=== PATIENT | male | born 1990 | race Caucasian/White ===

== ENCOUNTER 2022-12-29 07:31 | Outpatient (OUT) | payer MEDICAID, SELFPAY ==
[2022-12-29 13:42] LABS: Alanine Aminotransferase 24 U/L (16-63); Albumin Globulin Ratio 0.8; Albumin Level 3.8 g/dL (3.4-5.0); Alkaline Phosphatase 91 U/L (46-116); Anion Gap 6.2; Aspartate Amino Transferase 15 U/L (15-37); BUN Creatinine Ratio 14.8; Bilirubin Total 0.4 mg/dL (0.2-1.0); Calcium 9.3 mg/dL (8.5-10.1); Carbon Dioxide 36.8 mmol/L (21.0-32.0); Chloride 105 mmol/L (98-107); Estimated GFR (African America >60 (>=60); Estimated GFR (Non-African Ame 59 (>=60); Glucose 89 mg/dL (74-106); Sodium 144 mmol/L (136-145); Total Protein 8.8 g/dL (6.4-8.2); Valproic Acid 68.5 ug/mL (50.0-100.0)
[2022-12-30 05:08] LABS: Lithium (Eskalith(R)), Serum 0.5 mmol/L (0.5-1.2)
[2022-12-30 11:08] LABS: Carbamazepine(Tegretol),S 8.7 ug/mL (4.0-12.0)
== END 2022-12-29 07:32 | disposition home or self-care (01) ==
LOC: LAB 07:35
PROVIDERS: PCP Family Medicine; Visit Provider Family Medicine
DX: Z79.899 Other long term (current) drug therapy (principal)
CPT/HCPCS: 36415; 80053; 80156; 80164; 80178; 82607; 82746; 83540

== ENCOUNTER 2023-04-08 14:13 | Inpatient (IN) | payer MEDICAID, SELFPAY ==
[2023-04-08] VITALS (33 sets, daily range): BP systolic 81–135; BP diastolic 40–83; PULSE 84–107; RESP 9–32; TEMP 37.5–37.9; O2SAT 83–98; BMI 77.5; BMI 35.8
--- OUTSIDE RECORDS SUMMARY | 2023-04-08 14:21 | XMS_ITS | CCD ---
Author Name Unknown Address [address] [place] [address] Organization [facility] Care Team Providers Care Grease Remover Name Role Phone Unavailable Unavailable Unavailable JOSE, JOAQUIN Unavailable Unavailable JOSE, JOAQUIN Unavailable Unavailable JOSE, JOAQUIN Unavailable Unavailable Kemp, Iftikhar A Primary Care Provider Unavaila ble Kemp, Iftikhar A Primary Care Provider Iftikhar Kemp DO Primary Care Provider [phone] FRANCK CARBALLO Attending Unavailab le KEMPIFTIKHAR Primary Care Unavailable KEMPIFTIKHAR A Primary Care Unavailable DEENAZULAY Attending U navailable KEMPIFTIKHAR Attending Unavailable KEMPIFTIKHAR Referring Unavailable KEMP, IFTIKHAR A Primary Care Unavailable DEENAZULAY Referring U navailable KEMPIFTIKHAR Primary Care Unavailable LORENZO STEIN Admitting Unavailab DOMO Silva Attending Unavailable LETTY DAVENPORT Consulting Unavail able FRANCK CARBALLO Admitting Unavailab FRANCK Kauffman Attending Unavailab le IFTIKHAR KEMP Primary Care Unavailable Unavailable Primary Care Provider Unavailjermaine e Thiago Chandler Unavailable DO Iftikhar Kemp Primary Care Provider [phone] MD Thiago Chandler Attending Provider [phone] Unavailable Primary Care Provider Unavailabl e PROVIDER, UNKNOWN Admitting Unavailable PROVIDER, UNKNOWN Attending Unavailable PROVIDER, UNKNOWN Admitting Unavailable PROVIDER, UNKNOWN Attending Unavailable DO Iftikhar Kemp A Primary Care Provider Yi, Martha Unavailable DO Iftikhar Kemp Primary Care Provider [phone] MD Thiago Chandler Attending Provider DO Iftikhar Kemp Primary Care Provider [phone] MD Thiago Chandler Attending Provider [phone] DAVID, DR IFTIKHAR Otto Admitting Unavailable KEMP, DR IFTIKHAR Otto Attending Unavailable KEMP, DR IFTIKHAR Otto Primary Care Unavailable KEMP, DR IFTIKHAR Otto Consulting Unavailable MISC, DR QUINN Admitting Unavailable MISC, DR QUINN Attending Unavailable KEMP, DR IFTIKHAR Otto Primary Care Unavailable MISC, DR QUINN Consulting Unavailable KEMP, DR IFTIKHAR Otto Admitting Unavailable KEMP, DR IFTIKHAR Otto Attending Unavailable KEMP, DR IFTIKHAR Otto Primary Care Unavailable KEMP, DR IFTIKHAR Otto Consulting Unavailable ZIEBER, DR ZULAY Cohen Consulting Unavailable DO Iftikhar Kemp Primary Care Provider MD Thiago Chandler Attending Provider [phone] Thiago Chandler Admitting Unavailable Thiago Chandler Attending Unavailable Iftikhar Kemp Primary Care Unavailable Thiago Chandler Admitting Unavailable Thiago Chandler Attending Unavailable Iftikhar Kemp Primary Care Unavailable Allergies Allergy Classification Reported Allergen(s) Allergy Type Date of Onset Reaction(s) Facility NSAIDs (1 source) Naproxen Drug Allergy 8 [facility] (17 sources) Naproxen; Translations: [NAPROXEN] Drug Allergy 8 [facility] Work Phone: (4 sources) Seasonal allergy Propensity to adverse reactions Unknown [facility] Other (1 source) Naproxen Drug Allergy [facility] (1 source) Naproxen Drug Allergy 0 [facility] Repository Medications Current Medications Medication Drug Class(es) Dates Sig (Normalized) Sig (Original) albuterol 0.83 mg/ml inhalation solution (14 sources) beta2-Adrenergic Agonist Start: 12-31-2018 take 1 dose by inhalation every six hours Albuterol Sulfate Active 1 VIAL INHALATION Q6H December 31, 2018 1:00am Albuterol Sulfat e (2.5 MG/3ML) 0.083% 1 unit dose Inhalation four times a day DX J44.9 COPD use as needed Active take 2.5 mg by inhal ation every six hours as needed for wheezing albuterol (PROVENTIL) 2.5 mg /3 mL (0.08 3 %) nebulizer solution Take 2.5 mg by nebulization every 6 (six) hours as needed for wheezing . 0 Active amoxicillin 875 mg / clavulanate 125 mg oral tablet (7 sources) Penicillin-class Antibacterial Start: 02-26-2019 End: 03-05-2019 take 1 tablet by mouth every twelve hours amoxicillin-clavulanate (AUGMENTIN) 875-125 mg per tablet Take 1 (one) tablet by mouth every 12 (twelve) hours for 4 days . 8 tablet 0 03/01/2019 03/05/2019 Active Start: 02-22-2019 take 1 tablet by moira th twice daily Amoxicillin-Pot Clavulanate (Augmentin) 875-125 mg tablet Active 1 TAB PO Twice daily February 22, 2019 1:00am Antacid 500 MG (4 sources) take 1 tablet by moira th once daily Antacid 500 MG 1 tablet Orally Once a day Active B Complex - (4 sources) B Complex - as d irected Orally 1 daily Active B Complex Vitamins (B COMPLEX 100 PO) (1 source) B Complex Vitami ns (B COMPLEX 100 PO) Take by mouth. Active b complex vitamins capsule (5 sources) take 1 capsule by mo uth once daily b complex vitamins capsule Take 1 capsule by mouth daily . 0 Active take 1 capsule by mouth once frank ly b complex vitamins capsule Take 1 capsule by mouth daily . 0 Suspended bacitracin 0.5 unt/mg ophthalmic ointment (5 sources) Start: 12-31-2018 take 1 dose into the eye(s) three times daily Bacitracin Active 1 DOSE OPHTHALMIC Three times daily December 31, 2018 1:00am Topical benzonatate 100 mg oral capsule (11 sources) Non-narcotic Antitussive Start: 01-08-2018 take 100 mg by mouth three times daily Benzonatate Active 100 MG PO Three times daily December 31, 2018 1:00am benzoyl peroxide 50 mg/ml medicated liquid soap (15 sources) Start: 12-31-2018 apply 1 dose topically once daily Benzoyl Peroxide Active 1 DOSE TOPICAL DAILY@1999December 31, 2018 1:00am WASH FACE, CHEST, AND BACK DAILY @1999 Benzoyl Peroxide 5 % as directed Externally Once a day Active benzoyl peroxide 5 % gel Apply topically daily . 0 Active Benzoyl Peroxide (PANOXYL) 10 % Bar Apply topically. Active budesonide 0.25 mg/ml inhalant solution (1 source) Corticosteroid Start: 01-06-2018 budesonide (PULMICORT) nebulizer suspension 0.5 mg calcium carbonate 1000 mg / magnesium hydroxide 200 mg chewable tablet (5 sources) Start: 12-31-2018 Calcium Carbonate-Mag Hydroxid (Antacid (Calcium Carb-Mag Hyd)) 1,000-200 mg Tablet,Chewable Active 2 TAB PO Q4H December 31, 2018 1:00am clindamycin 10 mg/ml medicated pad (10 sources) Lincosamide Antibacterial Start: 12-31-2018 apply 1 dose topically twice daily Clindamycin Phos-Skin Clnsr 19 Active 1 DOSE TOPICAL Twice daily December 31, 2018 1:00am Clindamycin HCl Active clindamycin 1 % Solution Apply 1 Application topically 2 times daily. use thin film on affected area Active cloNIDine hydrochloride 0.2 mg oral tablet (17 sources) Central alpha-2 Adrenergic Agonist Start: 12-31-2018 End: 03-01-2019 take 0.2 mg by mouth three times daily Clonidine Hcl Active 0.2 MG PO Three times daily December 31, 2018 1:00am Start: 01-06-2018 take 0.2 mg by mouth three times daily 0.2 mg, Oral, 3 TIMES DAILY, First dose on 01/06/18 at 2100, Until Discontinued take 1 tablet by moira th once daily cloNIDine HCl 0.2 MG 1 tablet Orally Once a day Active CPAP Machine (4 sources) CPAP Machine aut o CPAP 8-12 Active CPAP Machine aut o CPAP 8-12 with 3 liters of O2 Active divalproex (DEPAKOTE ER) tablet ER 750 mg (1 source) Start: 01-07-2018 divalproex (DEPAKOTE ER) tablet ER 750 mg formoterol fumarate 0.01 mg/ml inhalant solution (1 source) beta2-Adrenergic Agonist Start: 01-07-2018 formoterol (PERFOROMIST) inhalation solution 20 mcg furosemide 20 mg oral tablet (12 sources) Loop Diuretic Start: 03-01-2019 take 1 tablet by mouth twice daily furosemide (LASIX) 20 MG tablet Take 1 (one) tablet (20 mg total) by mouth 2 (two) times a day . 60 tablet 1 03/01/2019 Active Start: 02-24-2019 End: 03-01-2019 furosemide (LASIX) injection 20 mg Start: 02-23-2019 40 mg, Intrave nous, Every 12 hours scheduled, First dose on 02/23/19 at 2215, For 1 dose Glendy-Tussin 100 MG/5ML (3 sources) take 10 mL by mouth every four hours as needed Glendy-Tussin 100 MG/5ML 10 ml as needed Orally every 4 hrs Active 12 hr guaiFENesin 600 mg extended release oral tablet (20 sources) Start: 12-31-2018 End: 03-01-2019 take 1 tablet by mouth twice daily, then take 1 tablet by mouth every twelve hours Guaifenesin (Mucinex) 600 mg Tablet Extended Release 12hr Active 600 MG PO Twice daily December 31, 2018 1:00am Start: 12-31-2018 End: 02-22-2019 take 1 [tsp_us] by mouth every four hours Guaifenesin (Glendy-Tussin) 100 mg/5 mL Liquid Discontinued 2 TSP PO Q4H December 31, 2018 1:00am February 22, 2019 10:10am take 10 mL by mouth every four hours as needed Glendy-Tussin 100 MG/5ML 10 ml as needed Orally every 4 hrs Active take 1 tablet by moira th every twelve hours Mucinex 600 MG 1 tablet as needed Orally every 12 hrs Active levoFLOXacin 750 mg oral tablet (4 sources) Quinolone Antimicrobial Start: 01-08-2018 End: 01-11-2018 take 1 tablet by mouth once daily levofloxacin 750 MG Tab per tablet Take 1 tablet by mouth daily for 3 days. 3 tablet 0 01/08/2018 01/11/2018 Active Start: 01-06-2018 End: 01-06-2018 take 750 mg intravenous route every twenty-four hours LevoFLOXacin in D5W (LEVAQUIN) 750 mg in dextrose 5% premix IVPB End: 03-01-2019 take 1 tablet by mouth once daily levoFLOXacin (LEVAQU IN) 500 MG tablet Take 500 mg by mouth daily Take one tablet by mouth, once daily for 10 days . 0 03/01/2019 Discontinued (Stop Taking at Discharge) linaclotide 0.072 mg oral capsule (6 sources) Guanylate Cyclase-C Agonist Start: 03-16-2021 take 1 capsule by mouth once daily in the morning Linzess 72 mcg cap Take 1 capsule by mouth every morning . 0 03/16/2021 Active Start: 12-31-2018 End: 02-22-2019 take 1 capsule by mouth once daily Linaclotide (Linzess) 72 mcg Capsule Discontinued 72 MCG PO Daily December 31, 2018 4:10pm February 22, 2019 10:11am Start: 12-31-2018 End: 02-22-2019 take 1 capsule by mouth once daily Linaclotide (Linzess) 72 mcg Capsule Discontinued 72 MCG PO Daily December 31, 2018 12:00am February 22, 2019 9:11am Start: 12-31-2018 End: 02-22-2019 take 1 capsule by mouth once daily Linaclotide (Linzess) 72 mcg Capsule Discontinued 72 MCG PO Daily December 31, 2018 1:00am February 22, 2019 10:11am Oxygen 3 liters (4 sources) Oxygen 3 liters with sleep and prn during day if sats less than 90% Active Oxygen 3 liters at sleep and during day as needed for O2 sat Active microencapsulated potassium chloride 20 meq extended release oral tablet (1 source) Start: 01-06-2018 potassium chloride (K-DUR, KLOR-CON M20) tablet ER 40 mEq Potassium Chloride / Sodium Chloride (1 source) Start: 01-06-2018 potassium chloride 40 mEq in 0.9% sodium chloride 500 ml IVPB predniSONE 10 mg oral tablet (1 source) Start: 01-08-2018 predniSONE 10 MG Tab tablet 4 tabs po daily x 3 days, 3 tabs po daily x 3 days, 2 tabs po daily x 3 days, 1 tab po daily x 3 days, then discontinue 30 tablet 0 01/08/2018 Active risperiDONE 1 mg oral tablet (17 sources) Atypical Antipsychotic Start: 12-31-2018 End: 03-01-2019 take 1 mg by mouth three times daily Risperidone Active 1 MG PO Three times daily December 31, 2018 1:00am Start: 01-06-2018 take 1 mg by mouth t hree times daily 1 mg, Oral, 3 TIMES DAILY, First dose on 01/06/18 at 1615, Until Discontinued take 1 tablet by moira th every twenty-four hours risperiDONE 1 MG 1 tablet Orally Once a day Active Sennosides (Senna) 8.6 mg Capsule (5 sources) Start: 12-31-2018 take 2 capsules by mouth twice daily Sennosides (Senna) 8.6 mg Capsule Active 17.2 MG PO Twice daily December 31, 2018 4:21pm Start: 12-31-2018 take 2 capsules by m outh twice daily Sennosides (Senna) 8.6 mg Capsule Active 17.2 MG PO Twice daily December 31, 2018 12:00am Start: 12-31-2018 take 2 capsules by m outh twice daily Sennosides (Senna) 8.6 mg Capsule Active 17.2 MG PO Twice daily December 31, 2018 1:00am sulfacetamide sodium 98 mg/ml topical lotion (5 sources) Sulfonamide Antibacterial Start: 12-31-2018 apply 1 dose topically once daily at bedtime Sulfacetamide Sodium Active 1 DOSE TOPICAL Daily at bedtime December 31, 2018 1:00am Vitamin B Complex (4 sources) Vitamin B Comple x - as directed Orally Active Vitamin B Complex (B-Complex) Tablet (5 sources) Start: 12-31-2018 take 1 tablet by mouth once daily Vitamin B Complex (B-Complex) Tablet Active 1 TAB PO Daily December 31, 2018 4:10pm Start: 12-31-2018 take 1 tablet by moira th once daily Vitamin B Complex (B-Complex) Tablet Active 1 TAB PO Daily December 31, 2018 12:00am Start: 12-31-2018 take 1 tablet by moira th once daily Vitamin B Complex (B-Complex) Tablet Active 1 TAB PO Daily December 31, 2018 1:00am Completed/Discontinued Medications Medication Drug Class(es) Dates Sig (Normalized) Sig (Original) acetaminophen 325 mg oral tablet (12 sources) Start: 02-23-2019 End: 03-01-2019 take 1 tablet by mouth every six hours as needed 650 mg, Oral, Every 6 hours PRN, mild pain, Starting 02/23/19 at 2117 Start: 12-31-2018 take 650 mg by mouth every four hours Acetaminophen Active 650 MG PO Q4H December 31, 2018 1:00am Start: 01-06-2018 take 2 tablets by mo uth every four hours as needed 650 mg, Oral, EVERY 4 HOURS NEEDED, Starting 01/06/18 at 1609, Until Discontinued, Mild Pain, Oral temp > 100.4? F Maximum dose of acetaminophen is 4000 mg from all sources in 24 hours. take 2 tablets by mo uth every six hours as needed for pain acetaminophen (TYLENOL) 325 MG tablet Take 650 mg by mouth every 6 (six) hours as needed for pain . 0 Active albuterol 0.833 mg/ml / ipratropium bromide 0.167 mg/ml inhalant solution (4 sources) Anticholinergic, beta2-Adrenergic Agonist Start: 02-24-2019 End: 03-01-2019 take 3 mL by inhalation four times daily 3 mL, Inhalation, 4 times daily (RT), First dose on 02/24/19 at 0800 Start: 02-23-2019 End: 03-01-2019 take 3 mL by inhalation every two hours as needed 3 mL, Inhalation, Every 2 hour PRN (RT), wheezing, shortness of breath, Starting 02/23/19 at 2119 Start: 01-07-2018 3 mL, Nebuliza tion, EVERY 4 HOURS, First dose on 01/06/18 at 1900, Until Discontinued Start: 01-06-2018 End: 01-06-2018 ipratropium-albuterol (DUONE B) 0.5-2.5 (3) MG/3ML nebulizer solution 3 mL azithromycin 250 mg oral tablet (5 sources) Macrolide Antimicrobial Start: 12-31-2018 End: 01-02-2019 take 250 mg by mouth once daily Azithromycin Discontinued 250 MG PO Daily December 31, 2018 1:00am January 02, 2019 3:03pm For 5 days, started on 12/30/2018 azithromycin (ZITHROMAX) 500 mg in sodium chloride 0.9 % (NS) 250 mL IVPB (1 source) Start: 02-23-2019 End: 03-01-2019 take 500 mg intravenous route every twenty-four hours 500 mg, Intravenous, at 250 mL/hr, Every 24 hours, First dose on 02/23/19 at 2330 Indication: CAP azithromycin (ZITHROMAX) 500 mg in sodium chloride 0.9%, with overfill 280 mL (total volume) IVPB (1 source) Start: 01-06-2018 End: 01-06-2018 500 mg, Intravenous, Administer over 60 Minutes, ONCE, 1 dose, 01/06/18 at 1700 barium sulfate (VARIBAR HONEY) 40 % (w/v) 29% (w/w) oral solution 1 Dose (1 source) Start: 02-25-2019 End: 02-25-2019 barium sulfate (VARIBAR HONEY) 40 % (w/v) 29% (w/w) oral solution 1 Dose barium sulfate (VARIBAR PUDDING) 40 % (w/v), 30% (w/w) oral paste 1 Dose (2 sources) Start: 07-08-2020 End: 07-08-2020 barium sulfate (VARIBAR PUDDING) 40 % (w/v), 30% (w/w) oral paste 1 Dose Start: 02-25-2019 End: 02-25-2019 barium sulfate (VARIBAR PUDD ING) 40 % (w/v), 30% (w/w) oral paste 1 Dose barium sulfate (VARIBAR THIN LIQUID) 40 % (w/v) solution 1 Dose (1 source) Start: 02-25-2019 End: 02-25-2019 barium sulfate (VARIBAR THIN LIQUID) 40 % (w/v) solution 1 Dose barium sulfate (VARIBAR THIN LIQUID) 81 % (w/w) solution 1 Dose (1 source) Start: 07-08-2020 End: 07-08-2020 barium sulfate (VARIBAR THIN LIQUID) 81 % (w/w) solution 1 Dose bisacodyl 10 mg rectal suppository (6 sources) Stimulant Laxative Start: 02-26-2019 End: 03-01-2019 bisacodyL (DULCOLAX) suppository 10 mg Start: 12-31-2018 End: 02-22-2019 Biscolax Discontinued 10 MG W[place] Daily December 31, 2018 4:21pm February 22, 2019 10:10am Start: 12-31-2018 End: 02-22-2019 Biscolax Discontinued 10 MG W[place] Daily December 31, 2018 12:00am February 22, 2019 9:10am Start: 12-31-2018 End: 02-22-2019 Biscolax Discontinued 10 MG W[place] Daily December 31, 2018 1:00am February 22, 2019 10:10am 12 hr carBAMazepine 200 mg extended release oral tablet (17 sources) Mood Stabilizer Start: 02-23-2019 End: 03-01-2019 take 400 mg by mouth twice daily 400 mg, Oral, 2 times daily, First dose on 02/23/19 at 2230 Should be administered with meals DO NOT CRUSH OR CHEW. Start: 12-31-2018 take 400 mg by mouth twice daily Carbamazepine Active 400 MG PO Twice daily December 31, 2018 1:00am Start: 01-06-2018 carBAMazepine (TEGRETOL) tablet 400 mg take 1 capsule by mo uth every twelve hours carBAMazepine ER 200 MG 1 tablet Orally Twice a day Active take 400 mg by mouth twice daily CARBAMAZEPINE PO Take 400 mg by mouth 2 times daily. Active cefTRIAXone 1000 mg injection (1 source) Cephalosporin Antibacterial Start: 02-23-2019 End: 02-26-2019 take 1000 mg intravenous route every twenty-four hours 1,000 mg, Intravenous, at 100 mL/hr, Every 24 hours, First dose on 02/23/19 at 2300 Indication: CAP (ICU) chlorproMAZINE hydrochloride 150 mg extended release oral capsule (20 sources) Phenothiazine Start: 02-23-2019 End: 03-01-2019 take 25 mg by mouth twice daily 25 mg, Oral, 2 times daily, First dose on 02/23/19 at 2230 May cause QT interval prolongation. Start: 02-23-2019 End: 03-01-2019 take 150 mg by mouth once daily 150 mg, Oral, Nightly, First dose on 02/23/19 at 2230 May cause QT interval prolongation. Start: 12-31-2018 take 150 mg by mouth once daily at bedtime Chlorpromazine Active 50 MG PO Daily December 31, 2018 1:00am At 4PM and 150mg at HS take 1 tablet by moira every twelve hours chlorproMAZINE HCl 10 MG 1 tablet Orally Twice a day Active take 3 tablets by mo uth once daily chlorproMAZINE (THORAZINE) 50 MG tablet Take 150 mg by mouth nightly . 0 Active take 5 tablets by mo uth three times daily chlorproMAZINE 10 MG Tab Take 50 mg by mouth 3 times daily. Active docusate sodium 100 mg oral capsule (2 sources) Start: 01-06-2018 take 100 mg by mouth twice daily 100 mg, Oral, 2 TIMES DAILY, First dose on 01/06/18 at 1700, Until Discontinued docusate sodium 50 mg / sennosides, halfway 8.6 mg oral tablet (1 source) Start: 02-26-2019 End: 03-01-2019 senna-docusate (SENNA-S) 8.6-50 mg per tablet 1 tablet 0.4 ml enoxaparin sodium 100 mg/ml prefilled syringe (2 sources) Low Molecular Weight Heparin Start: 02-23-2019 End: 03-01-2019 enoxaparin (LOVENOX) syringe 40 mg Start: 01-06-2018 take 40 mg by subcut aneous injection every twenty-four hours 40 mg, Subcutaneous, EVERY 24 HOURS, First dose on 01/06/18 at 2100, Until Discontinued, Indications: DVT/PE prophylaxis famotidine 20 mg oral tablet (17 sources) Histamine-2 Receptor Antagonist Start: 02-24-2019 End: 03-01-2019 take 20 mg by mouth once daily 20 mg, Oral, Daily, First dose on 02/24/19 at 0900 Start: 12-31-2018 End: 02-22-2019 take 20 mg by mouth once daily Famotidine Discontinued 20 MG PO DAILY@1200 December 31, 2018 1:00am February 22, 2019 10:13am Start: 01-06-2018 take 20 mg by mouth twice daily 20 mg, Oral, 2 TIMES DAILY, First dose on 01/06/18 at 1700, Until Discontinued fluticasone propionate 0.5 mg/ml topical cream (5 sources) Corticosteroid Start: 12-31-2018 End: 02-22-2019 apply 1 dose topically twice daily Fluticasone Propionate Discontinued 1 DOSE TOPICAL Twice daily December 31, 2018 1:00am February 22, 2019 10:13am See Intructions gabapentin 100 mg oral capsule (17 sources) Anti-epileptic Agent Start: 01-06-2018 End: 03-01-2019 take 100 mg by mouth three times daily Gabapentin Discontinued 100 MG PO Three times daily December 31, 2018 1:00am February 22, 2019 10:10am take 1 capsule by [facility] every twenty-four hours Gabapentin 100 MG 1 tablet Orally Once a day Active 4 ml labetalol hydrochloride 5 mg/ml cartridge (1 source) beta-Adrenergic Earl Start: 01-06-2018 take 20 mg intravenous route every six hours as needed 20 mg, Intravenous, EVERY 6 HOURS NEEDED, Starting 01/06/18 at 1748, Until Discontinued, abp>160 levothyroxine sodium 0.075 mg oral tablet (17 sources) l-Thyroxine Start: 02-24-2019 End: 03-01-2019 take 150 ug by mouth once daily 150 mcg, Oral, Daily, First dose on 02/24/19 at 0600 For patients on continuous tube feed: Hold TF from 1 hr before until 1 hr after each dose. TF rate may need adjustment to meet caloric needs. Start: 12-31-2018 End: 02-22-2019 take 150 ug by mouth once daily Levothyroxine Disconti nued 150 MCG PO Daily December 31, 2018 1:00am February 22, 2019 10:11am Start: 01-06-2018 take 125 ug by mouth once zoey y 125 mcg, Oral, DAILY, First dose on 01/06/18 at 1830, Until Discontinued take 1 tablet by moira th once daily in the morning Levothyroxine Sodium 150 MCG 1 tablet in the morning on an empty stomach Orally Once a day Active lithium carbonate 300 mg oral capsule (17 sources) Start: 02-23-2019 End: 03-01-2019 take 300 mg by mouth once daily 300 mg, Oral, Nightly, First dose on 02/23/19 at 2230 Start: 12-31-2018 End: 02-22-2019 take 300 mg by mouth once daily at bedtime [place] Carbonate Discontinued 300 MG PO Daily at bedtime December 31, 2018 1:00am February 22, 2019 10:11am Start: 01-06-2018 take 300 mg by mouth three times daily 300 mg, Oral, 3 TIMES DAILY, First dose on 01/06/18 at 1615, Until Discontinued take 2 capsules by m outh once daily lithium 150 MG capsule Take 300 mg by mouth nightly . 0 Active loperamide hydrochloride 2 mg oral capsule (5 sources) Opioid Agonist Start: 12-31-2018 End: 02-22-2019 Loperamide Discontinued 4 MG PO As Directed December 31, 2018 1:00am February 22, 2019 10:11am See Intructions loratadine 10 mg oral tablet (5 sources) Start: 12-31-2018 End: 02-22-2019 take 10 mg by mouth once daily Loratadine Discontinued 10 MG PO Daily December 31, 2018 1:00am February 22, 2019 10:11am LORazepam 1 mg oral tablet (17 sources) Benzodiazepine Start: 02-23-2019 End: 03-01-2019 take 2 mg by mouth once daily 2 mg, Oral, Nightly, First dose on 02/23/19 at 2215 Start: 12-31-2018 End: 02-22-2019 take 2 mg by mouth once daily at bedtime Lorazepam Discontinued 2 MG PO Daily at bedtime December 31, 2018 1:00am February 22, 2019 10:11am Start: 01-06-2018 take 1 tablet by moira th every six hours as needed 1 mg, Oral, EVERY 6 HOURS NEEDED, Starting 01/06/18 at 1609, Until Discontinued, Anxiety take 1 tablet by moira th every twenty-four hours LORazepam 2 MG 1 tablet at bedtime as needed Orally Once a day Active take 2 tablets by mo [facility] once daily LORazepam (ATIVAN) 1 MG tablet Take 2 mg by mouth nightly . 0 Active 50 ml magnesium sulfate 40 mg/ml injection (1 source) Start: 01-06-2018 2 g, Intraveno us, DAILY NEEDED, Starting 01/06/18 at 1748, Until Discontinued, For Magnesium level < 2 with morning labs Infuse at a rate of 0.5 gm/hour. methylPREDNISolone 4 mg oral tablet (6 sources) Corticosteroid Start: 12-31-2018 End: 01-02-2019 Methylprednisolone Discontinued 0 .ROUTE .COMPLEX December 31, 2018 1:00am January 02, 2019 3:03pm DIRECTED Start: 01-06-2018 methylPREDNISo lone sodium succinate (SOLU-MEDROL) injection 40 mg montelukast 10 mg oral tablet (15 sources) Leukotriene Receptor Antagonist Start: 02-23-2019 End: 03-01-2019 take 10 mg by mouth once daily 10 mg, Oral, Nightly, First dose on 02/23/19 at 2230 Start: 12-31-2018 End: 02-22-2019 take 10 mg by mouth once daily Montelukast Discontinue d 10 MG PO DAILY@1999December 31, 2018 1:00am February 22, 2019 10:11am nystatin 100 unt/mg topical powder (5 sources) Polyene Antifungal Start: 12-31-2018 End: 02-22-2019 apply 1 dose topically twice daily Nystatin Discontinued 1 DOSE TOPICAL Twice daily December 31, 2018 1:00am February 22, 2019 10:11am 2 ml ondansetron 2 mg/ml injection (7 sources) Serotonin-3 Receptor Antagonist Start: 02-23-2019 End: 03-01-2019 take 4 mg intravenous route every six hours as needed 4 mg, Intravenous, Every 6 hours PRN, nausea, vomiting, Starting 02/23/19 at 2119 Start: 12-31-2018 End: 02-22-2019 take 4 mg by mouth every six hours Ondansetron Discontinued 4 MG PO Q6H December 31, 2018 1:00am February 22, 2019 10:12am Start: 01-06-2018 take 4 mg intravenou s route every four hours as needed 4 mg, Intravenous, EVERY 4 HOURS NEEDED, Starting 01/06/18 at 1609, Until Discontinued, Nausea / Vomiting pantoprazole 40 mg delayed release oral tablet (1 source) Proton Pump Inhibitor Start: 01-06-2018 take 40 mg by mouth once daily 40 mg, Oral, DAILY, First dose on 01/06/18 at 1800, Until Discontinued Do not crush. Indications: Inpt Stress Ulcer Prophylaxis perflutren lipid microspheres (DEFINITY) 0.143 mg/mL solution 0-10 mL of mixture (1 source) Start: 02-23-2019 End: 02-25-2019 0-10 mL of mixture, Intravenous, Once in imaging, contrast, IF suboptimal echo, Starting 02/23/19 at 2120, For 48 hours Prepare syringe by withdrawing 1.3 mL of perflutren (DEFINITY) from the 2ml vial. Further dilute the 1.3 mL of perflutren with Sodium Chloride (NS) 0.9% to total volume of 10 ml. Chart total ML OF MIXTURE given to patient. polyethylene glycol 3350 70195 mg powder for oral solution (1 source) Osmotic Laxative Start: 02-26-2019 End: 03-01-2019 polyethylene glycol (MIRALAX) powder 17 g Sodium Chloride (4 sources) Start: 02-23-2019 End: 02-23-2019 sodium chloride (PF) (NS) flush 5 mL Start: 01-06-2018 End: 01-06-2018 Intravenous, at 100 mL/hr, C ONTINUOUS, Starting 01/06/18 at 1615, Until Discontinued Start: 01-06-2018 End: 01-07-2018 sodium chloride 0.9% IV solu tion 1,000 mL 24 hr divalproex sodium 500 mg extended release oral tablet (20 sources) Mood Stabilizer, Anti-epileptic Agent Start: 02-24-2019 End: 03-01-2019 divalproex (DEPAKOTE ER) 24 hr tablet 1,000 mg Start: 12-31-2018 End: 03-01-2019 take 250 mg by mouth twice daily Divalproex Active 250 MG PO BID@0800,1200 December 31, 2018 1:00am Start: 12-31-2018 End: 02-22-2019 Divalproex Discontinued 500 MG PO BID@0800,1200 December 31, 2018 1:00am February 22, 2019 10:07am 500 mg at 8AM and 1200, 1000 mg at 8PM Start: 12-31-2018 End: 02-22-2019 take 1000 mg by mouth once daily Divalproex Discontinued 1000 MG PO DAILY@2000 December 31, 2018 1:00am February 22, 2019 10:07am Start: 01-06-2018 End: 01-07-2018 divalproex (DEPAKOTE) tablet EC/DR 500 mg take 1 tablet by moira th every twenty-four hours Divalproex Sodium 125 MG 1 tablet Orally Once a day Active take 2 tablets by mo uth three times daily divalproex (DEPAKOTE) 500 MG delayed release (DR) tablet Take 500 mg by mouth 3 (three) times a day 2 tablets at 8pm . 0 Active take 4 tablets by mo uth at bedtime divalproex [address] tablet EC/DR Take 1,000 mg by mouth at bedtime. Active End: 01-08-2018 take 1 tablet by mouth twice daily divalproex [address] Take 500 mg by mouth 2 times daily. 01/08/2018 Discontinued vilazodone (15 sources) Start: 02-24-2019 End: 03-01-2019 vilazodone (VIIBRYD) tablet 30 mg Start: 12-31-2018 take 1 tablet by moira th once daily in the morning Vilazodone (Viibryd) 20 mg Tablet Active 30 MG PO Every morning December 31, 2018 1:00am take 0.5 tablet by m outh once daily vilazodone (VIIBRYD) 20 mg tablet Take 20 mg by mouth daily Take 1 and 1/2 tablets by mouth daily . 0 Active Vilazodone HCl ( VIIBRYD) 20 MG Tab Take 30 mg by mouth. Active Problems Active Problems Problem Classification Problem Date Documented Da te Episodic/Chronic Abdominal pain (1 source) Indigestion; Translations: [Epigastric pain] Episodic Acute myocardial infarction (5 sources) Myocardial infarction; Translations: [Myocardial infarction type 2] 01-16-2019 Chronic Diseases of white blood cells (1 source) Leukocytosis; Translations: [Leukocytosis] Onset: 8 01-07-2018 Chronic Epilepsy; convulsions (5 sources) Seizure disorder; Translations: [Epilepsy, unspecified, not intractable, without status epilepticus] 12-31-2018 Chronic Epilepsy; convulsions (4 sources) Seizure; Translations: [Unspecified convulsions] Onset: 8 01-07-2018 Episodic Esophageal disorders (5 sources) Gastroesophageal reflux disease; Translations: [Gastro-esophageal reflux disease without esophagitis] 12-31-2018 Chronic Intestinal obstruction without hernia (2 sources) Food bolus obstruction of intestine; Translations: [Other intestinal obstruction unspecified as to partial versus complete obstruction] Onset: 2 Episodic Other aftercare (4 sources) Other snf (current) drug therapy; Translations: [OTH [facility] CURRENT DRUG THERAPY] Onset: 3 Episodic Other congenital anomalies (7 sources) Anomaly of chromosome pair 21; 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, unspecified] Onset: 8 01-07-2018 Chronic Other congenital anomalies (2 sources) Down syndrome, unspecified; 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, unspecified] Onset: 8 Chronic Other gastrointestinal disorders (2 sources) Esophageal dysphagia; Translations: [Other dysphagia] Onset: 2 Episodic Other lower respiratory disease (5 sources) Lower respiratory tract infection; Translations: [Unspecified acute lower respiratory infection] 12-31-2018 Episodic Other lower respiratory disease (5 sources) Hypoxia; Translations: [Hypoxemia] 12-31-2018 Episodic Other nervous system disorders (5 sources) Metabolic encephalopathy; Translations: [Metabolic encephalopathy] Onset: 0 02-26-2019 Chronic Other nutritional; endocrine; and metabolic disorders (2 sources) Morbid obesity; Translations: [Obesity, morbid, BMI 40.0-49.9] Onset: 8 01-06-2018 Chronic Other nutritional; endocrine; and metabolic disorders (2 sources) Morbid (severe) obesity due to excess calories; Translations: [Morbid (severe) obesity due to excess calories] Onset: 8 Chronic Other nutritional; endocrine; and metabolic disorders (4 sources) Extreme obesity with alveolar hypoventilation; Translations: [Morbid (severe) obesity with alveolar hypoventilation] Chronic Other nutritional; endocrine; and metabolic disorders (4 sources) Morbid (severe) obesity with alveolar hypoventilation Onset: 2 Resolved: 2 Chronic Other nutritional; endocrine; and metabolic disorders (5 sources) Obesity; Translations: [Obesity, unspecified] 12-31-2018 Chronic Pneumonia (except that caused by tuberculosis or sexually transmitted disease) (15 sources) Infective pneumonia; Translations: [Pneumonia] Onset: 8 01-07-2018 Episodic Pulmonary heart disease (8 sources) Pulmonary hypertension; Translations: [Pulmonary hypertension, unspecified] Onset: 2 Resolved: 2 Chronic Residual codes; unclassified (11 sources) Obstructive sleep apnea syndrome; Translations: [Obstructive sleep apnea (adult) (pediatric)] 01-16-2019 Chronic Residual codes; unclassified (4 sources) Obstructive sleep apnea (adult) (pediatric) Onset: 2 Resolved: 2 Chronic Residual codes; unclassified (1 source) Obstructive sleep apnea (adult)(pediatric); Translations: [Obstructive sleep apnea (adult) (pediatric)] Onset: 3 Chronic Thyroid disorders (10 sources) Hypothyroidism; Translations: [Hypothyroidism, unspecified] Onset: 8 01-07-2018 Chronic Unclassified (3 sources) PERSONAL HISTORY OF COVID-19; Translations: [PERSONAL HISTORY OF COVID-19] Onset: 2 Viral infection (1 source) COVID-19; Translations: [Pneumonia due to other virus not elsewhere classified] Onset: 2 05-03-2021 Episodic Past or Other Problems Problem Classification Problem Date Documented Da te Episodic/Chronic Open wounds of head; neck; and trunk (4 sources) Unspecified open wound of scrotum and testes, initial encounter; Translations: [UNS OPEN WND SCROTUM AND TESTES INIT] Onset: 07-14-2021 Episodic Other lower respiratory disease (1 source) Personal history of pneumonia (recurrent); Translations: [PERSONAL HX OF PNEUMONIA RECURRENT] Onset: 06-03-2021 Episodic Respiratory failure; insufficiency; arrest (adult) (7 sources) Respiratory failure; Translations: [Acute respiratory failure] Onset: 02-23-2019 02-23-2019 Episodic Unclassified (1 source) PERSONAL HISTORY OF COVID-19; Translations: [PERSONAL HISTORY OF COVID-19] Onset: 06-01-2021 Results Test Name Value Interpretation Reference Range Facil ity CARBAMAZEPINEon 05-18-2022 Carbamezapine 6.9 ug/mL Normal 4.0-12.0 [facility] Comment on above: Result Comment: In c onjunction with other antiepileptic drugs Therapeutic 4.0 - 8.0 Toxicity 9.0 - 12.0 . Carbamazepine alone Therapeutic 8.0 - 12.0 . Detection Limit = 2.0 <2.0 indicates None Detected Performed By: #### C ARBLC #### [facility] [address] [place] [address] Dr. Chase Pedro LITHIUMon 05-18-2022 [place] (Eskalith(R)), Serum 0.7 mmol/L Normal 0.5-1.2 [facility] Comment on above: Result Comment: A co ncentration of 0.5-0.8 mmol/L is advised for long-term use; concentrations of up to 1.2 mmol/L may be necessary during acute treatment. Detection Limit = 0.1 <0.1 indicates None Detected Performed By: #### L ITHIUM #### [facility] [address] [place] [address] Dr. Chase Pedro CBC AUTO DIFFon 05-17-2022 BASO # 0.1 103/ul Normal 0.0-0.1 [facility] Comment on above: Performed By: #### C BC #### [facility] [address] [place] [address] Dr. Chase Pedro Basophils/100 WBC (Bld) 1.2 % Normal 0.2-2.0 [facility] Comment on above: Performed By: #### C BC #### [facility] [address] [place] [address] Dr. Chase Pedro EO # 0.0 103/ul Normal 0.0-0.7 [facility] Comment on above: Performed By: #### C BC #### [facility] [address] [place] [address] Dr. Chase Pedro Eosinophils/100 WBC (Bld) 0.2 % Critically low 0.9-7.0 [facility] Comment on above: Performed By: #### C BC #### [facility] [address] [place] [address] Dr. Chase Pedro Erythrocyte distribution width (RBC) [Ratio] 12.8 % Normal 11.0-15.0 [facility] Comment on above: Performed By: #### C BC #### [facility] [address] [place] [address] Dr. Chase Pedro Hematocrit (Bld) [Volume fraction] 42.5 % Normal 42.0-54.0 [facility] Comment on above: Performed By: #### C BC #### [facility] [address] [place] [address] Dr. Chase Pedro Hemoglobin (Bld) [Mass/Vol] 13.8 g/dL Critically low 14.0-18.0 [facility] Comment on above: Performed By: #### C BC #### [facility] [address] [place] [address] Dr. Chase Pedro IG # 0.02 10e3/ul Normal 0.00-0.03 [facility] Comment on above: Performed By: #### C BC #### [facility] [address] [place] [address] Dr. Chase Pedro IG % 0.4 % Normal 0.0-0.5 [facility] Comment on above: Performed By: #### C BC #### [facility] [address] [place] [address] Dr. Chase Pedro LYMPH # 2.3 103/ul Normal 1.2-3.8 [facility] Comment on above: Performed By: #### C BC #### [facility] [address] [place] [address] Dr. Chase Pedro Lymphocytes/100 WBC (Bld) 45.8 % Normal 20.5-60.0 [facility] Comment on above: Performed By: #### C BC #### [facility] [address] [place] [address] Dr. Chase Pedro MANUAL DIFF REQ NO Normal [facility] Comment on above: Performed By: #### C BC #### [facility] [address] [place] [address] Dr. Chase Pedro MCH (RBC) [Entitic mass] 33.8 pg Normal 25.9-34.0 [facility] Comment on above: Performed By: #### C BC #### [facility] [address] [place] [address] Dr. Chase Pedro MCHC (RBC) [Mass/Vol] 32.5 g/dL Normal 29.9-35.2 [facility] Comment on above: Performed By: #### C BC #### [facility] [address] [place] [address] Dr. Chase Pedro MCV (RBC) [Entitic vol] 104.2 fL Critically high 80.0-94.0 [facility] Comment on above: Performed By: #### C BC #### [facility] [address] [place] [address] Dr. Chase Pedro MONO # 0.3 103/ul Normal 0.3-0.8 [facility] Comment on above: Performed By: #### C BC #### [facility] [address] [place] [address] Dr. Chase Pedro Monocytes/100 WBC (Bld) 5.7 % Normal 1.7-12.0 [facility] Comment on above: Performed By: #### C BC #### [facility] [address] [address] [address] Chase Pedro NEUT # 2.3 103/ul Normal 1.4-6.5 [facility] Comment on above: Performed By: #### C BC #### [facility] [address] [address] [address] Chase Pedro Neutrophils/100 WBC (Bld) 46.7 % Normal 43.0-75.0 [facility] Comment on above: Performed By: #### C BC #### [facility] [address] [place] [address] Dr. Chase Pedro Platelet mean volume (Bld) [Entitic vol] 9.2 fL Critically low 9.5-13.5 [facility] Comment on above: Performed By: #### C BC #### [facility] [address] [place] [address] Dr. Chase Pedro PLT 288 103/ul Normal 150-450 [facility] Comment on above: Performed By: #### C BC #### [facility] [address] [place] [address] Dr. Chase Pedro RBC 4.08 106/ul Critically low 4.70-6.10 [facility] Comment on above: Performed By: #### C BC #### [facility] [address] [place] [address] Dr. Chase Pedro WBC 4.9 103/ul Normal 4.0-11.0 [facility] Comment on above: Performed By: #### C BC #### [facility] [address] [place] [address] Dr. Chase Pedro DEPAKENE/ VALPROIC ACIDon DEPAKENE 56.7 ug/ml Normal 50.0-100.0 [facility] Comment on above: Performed By: #### C MP, TSH, VALP #### [facility] [address] [place] [address] Dr. Chase Pedro PROF 14(COMP METB)on 023 Albumin [Mass/Vol] 3.5 g/dL Normal 3.4-5.[address] [facility] Comment on above: Performed By: #### C MP, TSH, VALP #### [facility] [address] [address] [address] Chase Pedro Albumin/Globulin [Mass ratio] 0.8 {ratio} Normal [facility] Comment on above: Performed By: #### C MP, TSH, VALP #### [facility] [address] [address] [address] Chase Pedro ALP [Catalytic activity/Vol] 110 U/L Normal 46-116 [facility] Comment on above: Performed By: #### C MP, TSH, VALP #### [facility] [address] [address] [address] Chase Pedro ALT [Catalytic activity/Vol] 18 U/L Normal 16-63 [facility] Comment on above: Performed By: #### C MP, TSH, VALP #### [facility] [address] [address] [address] Chase Pedro Anion gap [Moles/Vol] 8.0 mmol/L Normal [facility] Comment on above: Performed By: #### C MP, TSH, VALP #### [facility] [address] [address] [address] Chase Pedro AST [Catalytic activity/Vol] 12 U/L Critically low 15-37 [facility] Comment on above: Performed By: #### C MP, TSH, VALP #### [facility] [address] [address] [address] Chase Pedro Bilirubin [Mass/Vol] 0.3 mg/dL Normal 0.2-1.0 [facility] Comment on above: Performed By: #### C MP, TSH, VALP #### [facility] [address] [address] [address] Chase Pedro Calcium [Mass/Vol] 9.3 mg/dL Normal 8.5-10.[address] [facility] Comment on above: Performed By: #### C MP, TSH, VALP #### [facility] [address] [address] [address] Chase Pedro Chloride [Moles/Vol] 107 mmol/L Normal 98-107 [facility] Comment on above: Performed By: #### C MP, TSH, VALP #### [facility] [address] [place] [address] Dr. Chase Pedro CO2 [Moles/Vol] 36.9 mmol/L Critically high 21.0-32.0 [facility] Comment on above: Performed By: #### C MP, TSH, VALP #### [facility] [address] [place] [address] Dr. Chase Pedro Creatinine [Mass/Vol] 1.46 mg/dL Critically high 0.70-1.30 [facility] Comment on above: Performed By: #### C MP, TSH, VALP #### [facility] [address] [place] [address] Dr. Chase Pedro EGFR-AF [place]ONG [place]ER >60 Normal >=60 [facility] Comment on above: Performed By: #### C MP, TSH, VALP #### [facility] [address] [place] [address] Dr. Chase Pedro EGFR-NON AF [place] 57 mL/min/1.73m2 Critically low >=60 [facility] Comment on above: Performed By: #### C MP, TSH, VALP #### [facility] [address] [place] [address] Dr. Chase Pedro Globulin (S) [Mass/Vol] 4.4 g/dL Normal [facility] Comment on above: Performed By: #### C MP, TSH, VALP #### [facility] [address] [place] [address] Dr. Chase Pedro Glucose [Mass/Vol] 94 mg/dL Normal 74-[address] [facility] Comment on above: Performed By: #### C MP, TSH, VALP #### [facility] [address] [place] [address] Dr. Chase Pedro Potassium [Moles/Vol] 3.9 mmol/L Normal 3.5-5.1 [facility] Comment on above: Performed By: #### C MP, TSH, VALP #### [facility] [address] [place] [address] Dr. Chase Pedro Protein [Mass/Vol] 7.9 g/dL Normal 6.4-8.[address] [facility] Comment on above: Performed By: #### C MP, TSH, VALP #### [facility] [address] [place] [address] Dr. Chase Pedro Sodium [Moles/Vol] 148 mmol/L Critically high 136-145 [facility] Comment on above: Performed By: #### C MP, TSH, VALP #### [facility] [address] [place] [address] Dr. Chase Pedro Urea nitrogen [Mass/Vol] 17.0 mg/dL Normal 7.0-18.0 [facility] Comment on above: Performed By: #### C MP, TSH, VALP #### [facility] [address] [place] [address] Dr. Chase Pedro Urea nitrogen/Creatinine [Mass ratio] 11.6 mg/mg Normal [facility] Comment on above: Performed By: #### C MP, TSH, VALP #### [facility] [address] [place] [address] Dr. Chase Pedro TSHon 05-17-2022 TSH 0.725 uIU/mL Normal 0.358-3.740 [facility] Comment on above: Performed By: #### C MP, TSH, VALP #### [facility] [address] [place] [address] Dr. Chase Pedro Progress Noteson 09-22-2021 Collections Associate Authentication Interface Message Text ----- Wednesday, September 22, 2021 at 11:33:21 AM ----- ----- Provider: Resident Kai -- Clinic: [facility] ----- COMPOSITE YARSANI Patient is scheduled for Hindu on tooth #22-MDF, 23-MDF, 24-MDF, 25-MDF, 26-MDF and 27 surface MDF. Reviewed Medical History. Pt exhibited the following conditions: Mental Disorders Patient is ready for treatment. Topical Benzocaine gel applied at the injection site for 2 minutes. Administered 1 carpules of Lidocaine, 2% with Epinephrine 1:100,000,. Decay/existing latter-day removed, cavity prepared. Selectively etched enamel with 37% phosphoric acid, rinsed, and blot dried. OptiBond davidson applied and light-cured. Condensed packable composite shade in light cured increments using Mylar strip and wedge. Finished with finishing burs, checked occlusion, verified proximal contacts and latter-day was polished. Rinsed and suctioned intraorally, advised patient to not eat until local anesthesia wears off. POST OPERATIVE Periapical (multiple) RADIOGRAPH TAKEN. NOTE: patient is special needs, came in with a caregiver, patient was very cooperative. Patient had excessive saliva and he was frequently closing his mouth during restorations. Overhand noticed in post op xray, re-did the restorations, flossed his teeth, made sure margins are smooth and intact. Next Visit: Rian ----- Signed on Wednesday, September 22, 2021 at 11:49:29 AM ----- ----- Provider: Emeterio Zapata DDS -- Clinic: [facility] ----- Normal [facility] WOUND CULTUREon 07-18-2021 Antimicrobial Susceptibility Comment Normal [facility] Comment on above: Result Comment: S = Susceptible; I = Intermediate; R = Resistant P = Positive; N = Negative MICS are expressed in micrograms per mL Antibiotic RSLT#1 RSLT#2 RSLT#3 RSLT#4 Penicillin S Vancomycin S Performed By: #### C XWND #### [facility] [address] [place] [address] Dr. Chase Pedro Bacteria identified Aer cx Nom (Unsp spec) Final report Abnormal [facility] Comment on above: Performed By: #### C XWND #### [facility] [address] [address] [address] Chase Pedro Result 1 Enterococcus faecalis Abnormal [facility] Comment on above: Result Comment: For Enterococcus species, aminoglycosides (except for high-level resistance screening), cephalosporins, clindamycin, and trimethoprim-sulfamethoxazole are not effective clinically. (CLSI, [id number], 2016) Heavy growth Performed By: #### C XWND #### [facility] [address] [address] [address] Chase Pedro Progress Noteson 06-08-2021 Collections Associate Authentication Interface Message Text [facility], Pt is ready for tx PT is special needs and presents with a caregiver. He is VERY COOPERATIVE Pt presented for Periodic Examination, Pain Scale: 0. Pt chief complaint: FOLLOW UP Radiographs taken today were: 4 BW Examination reveals: all mandibular anterior teeth have severe demineralization, they will need restored. Soft tissue is within normal limits, TMJ is within normal limits, Verified charting, Updates made. Went over current needs and past needs that have not been fulfilled. Oral hygiene instructions given to the patient Pt is scheduled for Prophylaxis, Examination of dentition and gingiva was done, and revealed that the pt has: Plaque _mod__ Calculus _light__ Staining _intrinsic__ *Hand scaling was done using curettes. Teeth were polished with pumice. Pt tolerated procedure well. OHI and education were discussed with the pt. Written instructions were handed to the pt/AVS. Place pt on 6 month recall. Examination completed by /[facility]: mian ----- Signed on Tuesday, June 08, 2021 at 2:17:56 PM ----- ----- Provider: Emeterio Zapata DDS -- Clinic: [place] ----- Normal [facility] XR MODIFIED BARIUM SWALLOWon 05-06-2021 XR MODIFIED BARIUM SWALLOW EXAMINATION: XR MODIFIED BARIUM SWALLOW HISTORY: ORDERING SYSTEM PROVIDED HISTORY: further assess pharyngeal phase of swallow, TECHNOLOGIST PROVIDED HISTORY: Illness/Other Reason for exam: further assess pharyngeal phase of swallow Encounter Type: Ongoing Additional signs and symptoms: further assess pharyngeal phase of swallow Fluoro dose in mGy: 8.36 ORDERING SYSTEM PROVIDED DIAGNOSIS CODES: U07.1 Pneumonia due to COVID-19 virus J12.82 Pneumonia due to COVID-19 virus A41.89 Viral sepsis (HCC) B97.89 Viral sepsis (HCC) COMPARISON: 07/08/2020 TECHNIQUE: Patient was challenged with multiple consistencies of barium while undergoing video fluoroscopic imaging in the lateral projection. FLUOROSCOPY TIME: Fluoro time in minutes: 0.09 Number of images obtained: 52. FINDINGS: No susanne aspiration IMPRESSION: No aspiration identified. Please see speech pathologist's report for additional details and recommendations. Workstation ID: [id number] Dictated by: WELLINGTON BUTT on MonMay 06, 2021 2:54:29 PM EDT Transcribed by: WELLINGTON BUTT on MonMay 06, 2021 2:54:29 PM EDT Finalized by: WELLINGTON BUTT on MonMay 06, 2021 2:54:29 PM EDT [facility] Comment on above: Order Comment: Injur y/Trauma or Illness?:Illness/Other How long have you had these symptoms (acute/chronic)?:Acute Reason for exam?:further assess pharyngeal phase of swallow Type of Exam?:Ongoing Additional signs and symptoms?:further assess pharyngeal phase of swallow Fluoro time in minutes:.09 9 seconds fluoro Fluoro dose in mGy?:8.36 CT CHEST WITHOUT CONTRASTon 05-05-2021 CT CHEST WITHOUT CONTRAST EXAMINATION: CT CHEST WITHOUT CONTRAST HISTORY: ORDERING SYSTEM PROVIDED HISTORY: SOB, C-19, TECHNOLOGIST PROVIDED HISTORY: Illness/Other Reason for exam: sob Encounter Type: Initial Additional signs and symptoms: pneumonia due to covid ORDERING SYSTEM PROVIDED DIAGNOSIS CODES: U07.1 Pneumonia due to COVID-19 virus J12.82 Pneumonia due to COVID-19 virus A41.89 Viral sepsis (HCC) B97.89 Viral sepsis (HCC) COMPARISON: None TECHNIQUE: CT examination of the chest without IV contrast. Coronal and sagittal reformations were performed. Dose reduction techniques were achieved by using automated exposure control and/or adjustment of mA and/or kV according to patient size and/or use of iterative reconstruction technique. FINDINGS: The central airways are patent. There are multifocal areas of diffuse nodular consolidative opacity intertwined with ground-glass opacities throughout the lung parenchyma in a peripheral distribution. There is also associated interlobular septal thickening. Trace bilateral pleural effusions. There is no pneumothorax. No pneumomediastinum. The visualized portion of the thyroid gland appears unremarkable. There is no axillary lymphadenopathy. No gross abnormalities of the chest wall. There is a 14 mm subcutaneous nodule in the posterior lateral aspect of the right chest wall, suggestive of a sebaceous cyst. The heart size is enlarged. This is significant for the patient's age. No pericardial effusion. Postsurgical changes are seen along the interatrial septum. No pericardial effusion. There are multiple shotty mediastinal and hilar lymph nodes. The delivery representative conglomeration of 2 lymph nodes in the subcarinal region measures 2.1 x 1.1 cm. These are likely reactive in nature. There is a large amount of food bolus in the upper to midthoracic esophagus. Limited evaluation of the upper abdomen appears unremarkable. The visualized portion of the liver, spleen, pancreas, bilateral adrenal glands appear normal in contour. The gallbladder is partially contracted. Bone windows demonstrate no suspicious osseous lesion. Bones appear osteopenic. IMPRESSION: Imaging findings are consistent with diffuse multifocal pneumonia, corresponds to the patient's known history of COVID pneumonia. Trace bilateral pleural effusions. Impacted food bolus in the upper to midthoracic spine. Imaging findings are suggestive of severe esophageal dysmotility. No obvious pneumomediastinum. Cardiomegaly, significant for the patient's age. [employer] Workstation ID: [id number] Dictated by: BERNADETTE ARANA on MonMay 05, 2021 2:07:05 PM EDT Transcribed by: NIKI QUESADA on MonMay 05, 2021 2:30:07 PM EDT Finalized by: BERNADETTE ARANA on MonMay 05, 2021 2:37:50 PM EDT Normal [facility] Comment on above: Order Comment: Injur y/Trauma or Illness?:Illness/Other How long have you had these symptoms (acute/chronic)?:Acute Reason for exam?:sob Type of Exam?:Initial Additional signs and symptoms?:pneumonia due to covid XR CHEST PA/APon 05-04-2021 XR CHEST PA/AP EXAMINATION: XR CHEST PA/AP 05/04/2021 3:33 pm HISTORY: ORDERING SYSTEM PROVIDED HISTORY: Shortness of breath, TECHNOLOGIST PROVIDED HISTORY: Illness/Other Reason for exam: sob, covid pos Cancer History: UN Surgery, RadiationHistory: UN Encounter Type: Initial Additional signs and symptoms: ORDERING SYSTEM PROVIDED DIAGNOSIS CODES: U07.1 Pneumonia due to COVID-19 virus J12.82 Pneumonia due to COVID-19 virus A41.89 Viral sepsis (HCC) B97.89 Viral sepsis (HCC) COMPARISON: X-ray chest 05/02/2021. FINDINGS: The cardiac silhouette is magnified by technique and hypoventilation. There is crowding of the interstitial and vascular markings. There is increased perihilar and right lower lobe opacity when compared to the 05/02/2021 exam. There is no clear pleural effusion or visible pneumothorax. There is no acute osseous pathology. IMPRESSION: Worsening bilateral airspace opacity, most confluent in the right lower lobe. Continued follow-up is recommended with chest CT as indicated. Workstation ID: [id number] Dictated by: YEISON MALDONADO on MonMay 04, 2021 8:43:37 PM EDT Transcribed by: YEISON MALDONADO on MonMay 04, 2021 8:43:37 PM EDT Finalized by: YEISON MALDONADO on MonMay 04, 2021 8:43:37 PM EDT [facility] Comment on above: Order Comment: Injur y/Trauma or Illness?:Illness/Other How long have you had these symptoms (acute/chronic)?:Acute Reason for exam?:sob, covid pos History of cancer?:UN Surgeries, chemotherapy, or radiation?:UN Type of Exam?:Initial Additional signs and symptoms?: COVID-19/INFLUENZA A,B MOLEC ULARon 05-02-2021 SARS-CoV-2 (COVID-19) Ab IA Ql INFLUENZA A (CEPHEID): Not Detected INFLUENZA B (CEPHEID): Not Detected SARS-COV-2 (CEPHEID): Detected This test was performed under the FDA's Emergency Use Authorization (EUA). Testing was performed using the Xpert?? Xpress SARS-CoV-2/Flu/RSV plus RT-PCR Cepheid assay on the GeneX[employer] Xpress System. This test has not been approved for use in asymptomatic patients and its performance in this patient population has not been evaluated. Negative results do not rule out the presence of SARS-CoV-2/COVID-19. Fact sheets for this EUA can be found at the following links: For Healthcare Providers: https://www.fda.gov/ media/247531/downloa d For Patients: https://www.fda.gov/ media/739431/downloa d [facility] Comment on above: Performed By: #### L [id number] #### [facility] [address], [place] [address] Liam Casas M.D. [id number] XR CHEST PA/APon 05-02-2021 XR CHEST PA/AP EXAMINATION: XR CHEST PA/AP 05/02/2021 1:20 pm HISTORY: ORDERING SYSTEM PROVIDED HISTORY: cough, fever, TECHNOLOGIST PROVIDED HISTORY: Illness/Other Reason for exam: cough and fever since yesterday Cancer History: UN Surgery, RadiationHistory: UN Encounter Type: Initial Additional signs and symptoms: ORDERING SYSTEM PROVIDED DIAGNOSIS CODES: COMPARISON: January 10, 2020. TECHNIQUE: Portable AP view of the chest. FINDINGS: There is moderate patchy airspace opacity in the right lower lung. Mild patchy densities seen in the left lung base the retrocardiac portion. Upper lungs appear clear. No pneumothorax or sizable pleural effusion. Cardiomediastinal silhouette is stable. IMPRESSION: Moderate patchy infiltrate in the right lung base. Mild atelectasis or infiltrate in the left lung base. Findings consistent with pneumonia. [employer] Workstation ID: [id number] Dictated by: FRANCK JEFFERS on [place] May 02, 2021 1:44:03 PM EDT Transcribed by: CAMI CHAHAL on [place] May 02, 2021 1:47:37 PM EDT Finalized by: FRANCK JEFFERS on [place] May 02, 2021 2:44:35 PM EDT Normal [facility] Comment on above: Order Comment: Fully upright with deep inspiration please Injury/Trauma or Illness?:Illness/Other How long have you had these symptoms (acute/chronic)?:Acute Reason for exam?:cough and fever since yesterday History of cancer?:UN Surgeries, chemotherapy, or radiation?:UN Type of Exam?:Initial Additional signs and symptoms?: XR MODIFIED BARIUM SWALLOWOr dered By: Iftikhar Kemp on 07-08-2020 No radiographic evidence of tracheal aspiration. For further information as well as dietary recommendations, please refer to the speech pathologist's detailed report. [employer] Workstation ID: [id number] [facility] EXAMINATION: XR MODIFIED BARIUM SWALLOW HISTORY: Dx: R10.13 (Dyspepsia) COMPARISON: Modified barium swallow study on 02/25/2019 TECHNIQUE: Videofluoroscopic swallowing examination was performed in conjunction with the speech pathology department. Various substances were used to assess swallowing including regular solid, puree, and thin consistencies of barium. FINDINGS: Fluoroscopy time: 40 seconds. The patient exhibited normal bolus formation and cohesion. There was no radiographic evidence of tracheal aspiration/penetrati on. [facility] Interface, Rad In [employer] - 07/08/2020 8:42 PM EDT EXAMINATION: XR MODIFIED BARIUM SWALLOW HISTORY: Dx: R10.13 (Dyspepsia) COMPARISON: Modified barium swallow study on 02/25/2019 TECHNIQUE: Videofluoroscopic swallowing examination was performed in conjunction with the speech pathology department. Various substances were used to assess swallowing including regular solid, puree, and thin consistencies of barium. FINDINGS: Fluoroscopy time: 40 seconds. The patient exhibited normal bolus formation and cohesion. There was no radiographic evidence of tracheal aspiration/penetrati on. IMPRESSION: No radiographic evidence of tracheal aspiration. For further information as well as dietary recommendations, please refer to the speech pathologist's detailed report. [employer] Workstation ID: [id number] [facility] XR MODIFIED BARIUM SWALLOWon 07-08-2020 XR MODIFIED BARIUM SWALLOW EXAMINATION: XR MODIFIED BARIUM SWALLOW HISTORY: Dx: R10.13 (Dyspepsia) COMPARISON: Modified barium swallow study on 02/25/2019 TECHNIQUE: Videofluoroscopic swallowing examination was performed in conjunction with the speech pathology department. Various substances were used to assess swallowing including regular solid, puree, and thin consistencies of barium. FINDINGS: Fluoroscopy time: 40 seconds. The patient exhibited normal bolus formation and cohesion. There was no radiographic evidence of tracheal aspiration/penetrati on. IMPRESSION: No radiographic evidence of tracheal aspiration. For further information as well as dietary recommendations, please refer to the speech pathologist's detailed report. [employer] Workstation ID: [id number] Dictated by: BERNADETTE ARANA on MonJuly 08, 2020 7:29:57 PM EDT Transcribed by: CAMI CHAHAL on MonJuly 08, 2020 7:30:41 PM EDT Finalized by: BERNADETTE ARANA on MonJuly 08, 2020 8:40:23 PM EDT [facility] Comment on above: Order Comment: ROULA Villanueva ORDER Injury/Trauma or Illness?:Illness/Other How long have you had these symptoms (acute/chronic)?:Acute Reason for exam?: Dyspepsia Type of Exam?:Ongoing Additional signs and symptoms?: Dyspepsia Fluoro time in minutes:.4 40 seconds fluoro Fluoro dose in mGy?:22.92 Basic Metabolic Panelon 02-13 Anion gap [Moles/Vol] 7 mmol/L Low 10 - 20 mmol/L [facility] Calcium [Mass/Vol] 9.2 mg/dL 8.4 - 10. 2 mg/dL [facility] Chloride [Moles/Vol] 98 mmol/L 98 - 108 mmol/L [facility] Creatinine [Mass/Vol] 1.56 mg/dL High 0.5 - 1.3 mg/dL [facility] GFR/1.73 sq M predicted among non-blacks MDRD (S/P/Bld) [Vol rate/Area] The eGFR should be used for monitoring renal function only and not for medication dosing. [facility] GFR/1.73 sq M.predicted CKD-EPI (S/P/Bld) [Vol rate/Area] 60 >=60 mL/min/1.73 m2 [facility] Glucose [Mass/Vol] 102 mg/dL High 65 - 99 mg/dL [facility] HCO3 [Moles/Vol] 40 mmol/L High 21 - 32 mmol/L [facility] Potassium [Moles/Vol] 4.0 mmol/L 3.5 - 5.1 mmol/L [facility] Sodium [Moles/Vol] 141 mmol/L 135 - 145 mmol/L [facility] Urea nitrogen [Mass/Vol] 28 mg/dL High 8 - 25 mg/dL [facility] Urea nitrogen/Creatinine [Mass ratio] 17.9 mg/mg [facility] CBC WITH AUTO DIFFERENTIALon 03-01-2019 Basophils (Bld) [#/Vol] 0.05 10*3/uL [facility] Basophils/100 WBC (Bld) 0.7 % [facility] Eosinophils (Bld) [#/Vol] 0.08 10*3/uL [facility] Eosinophils/100 WBC (Bld) 1.2 % [facility] Erythrocyte distribution width (RBC) [Entitic vol] 14.2 % 11.6 - 14.8 % [facility] Hematocrit (Bld) [Volume fraction] 41.3 % 41 - 53 % [facility] Hemoglobin (Bld) [Mass/Vol] 13.2 g/dL Low 13.5 - 17.5 g/dL [facility] Immature granulocytes (Bld) [#/Vol] 0.06 10*3/uL [facility] Immature granulocytes/100 WBC (Bld) 0.90 % [facility] Comment on above: The IG parameter is the percentage of metamyelocytes, myelocytes, and promyelocytes. Interpretation and review of laboratory results Abnormal [facility] Lymphocytes (Bld) [#/Vol] 1.76 10*3/uL [facility] Lymphocytes/100 WBC (Bld) 26.2 % [facility] MCH (RBC) [Entitic mass] 32.3 pg 26 - 34 pg [facility] MCHC (RBC) [Mass/Vol] 32.0 g/dL 31 - 37 g/dL [facility] MCV (RBC) [Entitic vol] 101.0 fL High 80 - 100 fL [facility] Monocytes (Bld) [#/Vol] 0.65 10*3/uL [facility] Monocytes/100 WBC (Bld) 9.7 % [facility] Neutrophils (Bld) [#/Vol] 4.12 10*3/uL [facility] Neutrophils/100 WBC (Bld) 61.3 % [facility] Nucleated RBC (Bld) [#/Vol] 0.00 10*3/uL [facility] Nucleated RBC/100 WBC (Bld) [Ratio] 0.0 % [facility] Platelet mean volume (Bld) [Entitic vol] 9.6 fL 9 - 15.5 fL [facility] Platelets (Bld) [#/Vol] 355 10*3/uL [facility] RBC (Bld) [#/Vol] 4.09 10*6/uL Low [facility] eah WBC (Bld) [#/Vol] 6.72 10*3/uL [facility] ealth Magnesium Levelon 03-01-2019 Magnesium [Mass/Vol] 2.5 mg/dL High 1.6 - 2.4 mg/dL [facility] Otheron 03-01-2019 Interpretation and review of laboratory results Abnormal [facility] Phosphoruson 03-01-2019 Interpretation and review of laboratory results Normal [facility] Phosphate [Mass/Vol] 4.2 mg/dL 2.7 - 4.5 mg/dL [facility] Basic Metabolic Panelon 02-13 Anion gap [Moles/Vol] 8 mmol/L Low 10 - 20 mmol/L [facility] Calcium [Mass/Vol] 9.2 mg/dL 8.4 - 10. 2 mg/dL [facility] Chloride [Moles/Vol] 99 mmol/L 98 - 108 mmol/L [facility] Creatinine [Mass/Vol] 1.54 mg/dL High 0.5 - 1.3 mg/dL [facility] GFR/1.73 sq M predicted among non-blacks MDRD (S/P/Bld) [Vol rate/Area] The eGFR should be used for monitoring renal function only and not for medication dosing. [facility] GFR/1.73 sq M.predicted CKD-EPI (S/P/Bld) [Vol rate/Area] 61 >=60 mL/min/1.73 m2 [facility] Glucose [Mass/Vol] 95 mg/dL 65 - 99 mg/dL [facility] HCO3 [Moles/Vol] 38 mmol/L High 21 - 32 mmol/L [facility] Potassium [Moles/Vol] 4.1 mmol/L 3.5 - 5.1 mmol/L [facility] Sodium [Moles/Vol] 141 mmol/L 135 - 145 mmol/L [facility] Urea nitrogen [Mass/Vol] 27 mg/dL High 8 - 25 mg/dL [facility] Urea nitrogen/Creatinine [Mass ratio] 17.5 mg/mg [facility] CBC WITH AUTO DIFFERENTIALon 02-28-2019 Basophils (Bld) [#/Vol] 0.06 10*3/uL [facility] Basophils/100 WBC (Bld) 1.0 % [facility] Eosinophils (Bld) [#/Vol] 0.07 10*3/uL [facility] Eosinophils/100 WBC (Bld) 1.2 % [facility] Erythrocyte distribution width (RBC) [Entitic vol] 14.5 % 11.6 - 14.8 % [facility] Hematocrit (Bld) [Volume fraction] 41.4 % 41 - 53 % [facility] Hemoglobin (Bld) [Mass/Vol] 13.1 g/dL Low 13.5 - 17.5 g/dL [facility] Immature granulocytes (Bld) [#/Vol] 0.07 10*3/uL [facility] Immature granulocytes/100 WBC (Bld) 1.20 % [facility] Comment on above: The IG parameter is the percentage of metamyelocytes, myelocytes, and promyelocytes. Lymphocytes (Bld) [#/Vol] 2.12 10*3/uL [facility] Lymphocytes/100 WBC (Bld) 35.6 % [facility] MCH (RBC) [Entitic mass] 32.4 pg 26 - 34 pg [facility] MCHC (RBC) [Mass/Vol] 31.6 g/dL 31 - 37 g/dL [facility] MCV (RBC) [Entitic vol] 102.5 fL High 80 - 100 fL [facility] Monocytes (Bld) [#/Vol] 0.40 10*3/uL [facility] Monocytes/100 WBC (Bld) 6.7 % [facility] Neutrophils (Bld) [#/Vol] 3.23 10*3/uL [facility] Neutrophils/100 WBC (Bld) 54.3 % [facility] Nucleated RBC (Bld) [#/Vol] 0.00 10*3/uL [facility] Nucleated RBC/100 WBC (Bld) [Ratio] 0.0 % [facility] Platelet mean volume (Bld) [Entitic vol] 9.6 fL 9 - 15.5 fL [facility] Platelets (Bld) [#/Vol] 383 10*3/uL [facility] RBC (Bld) [#/Vol] 4.04 10*6/uL Low [facility] eah WBC (Bld) [#/Vol] 6.20 10*3/uL [facility] eah Magnesium Levelon 02-28-2019 Magnesium [Mass/Vol] 2.6 mg/dL High 1.6 - 2.4 mg/dL [facility] Otheron 02-28-2019 Interpretation and review of laboratory results Abnormal [facility] Phosphoruson 02-28-2019 Phosphate [Mass/Vol] 4.7 mg/dL High 2.7 - 4.5 mg/dL [facility] Basic Metabolic Panelon 02-13 Anion gap [Moles/Vol] 7 mmol/L Low 10 - 20 mmol/L [facility] Calcium [Mass/Vol] 9.2 mg/dL 8.4 - 10. 2 mg/dL [facility] Chloride [Moles/Vol] 101 mmol/L 98 - 108 mmol/L [facility] Creatinine [Mass/Vol] 1.54 mg/dL High 0.5 - 1.3 mg/dL [facility] GFR/1.73 sq M predicted among non-blacks MDRD (S/P/Bld) [Vol rate/Area] The eGFR should be used for monitoring renal function only and not for medication dosing. [facility] GFR/1.73 sq M.predicted CKD-EPI (S/P/Bld) [Vol rate/Area] 61 >=60 mL/min/1.73 m2 [facility] Glucose [Mass/Vol] 104 mg/dL High 65 - 99 mg/dL [facility] HCO3 [Moles/Vol] 40 mmol/L High 21 - 32 mmol/L [facility] Interpretation and review of laboratory results Abnormal [facility] Potassium [Moles/Vol] 4.0 mmol/L 3.5 - 5.1 mmol/L [facility] Sodium [Moles/Vol] 144 mmol/L 135 - 145 mmol/L [facility] Urea nitrogen [Mass/Vol] 24 mg/dL 8 - 25 mg/dL [facility] Urea nitrogen/Creatinine [Mass ratio] 15.6 mg/mg [facility] NT Pro BNPon 02-26-2019 Interpretation and review of laboratory results Normal [facility] Natriuretic peptide.B prohormone N-Terminal [Mass/Vol] 67 pg/mL 0 - 300 pg/mL [facility] Pride Study Cut-offs Rule In: < /= 50 Years >450 pg/mL 51 Years - 75 Years >900 pg/mL 76 Years - 99 Years >1800 pg/mL Rule Out: All patients <300 pg/mL [facility] ECHOCARDIOGRAM 2D COMPLETEon 02-25-2019 Interface, Rad In [employer] - 02/25/2019 1:[address] [address] [place] [address] ----- ECHOCARDIOGRAPHY REPORT - [facility] ----- Name: FAHAD BERNABE Age: 28 years Date: 02/25/2019 [facility] #: [id number] : 1990 Room: [address] [place] [address] #: [id number] Sex: M Tech: Gary Calvillo Ordering Physician: [id number] HOLDEN HINTON Height: 57.00 in Sys BP: 124 MARLENE cc: , Weight: 264.00 Nidia BP: 79 Reading Physician: [id number] Kate Marrero MD/ Rhythm: Electronically Signed by: [id number] Kate Marrero MD BSA: 2.02 m on: 02/25/2019 Reason for Study: CHF History:CHF Conclusions: Poor quality, apical views borderline nondiagnostic. Definity given Normal to hyperdynamic left ventricular systolic function with ejection fraction 70 to 75%. Doppler suggests moderate to severe pulmonary hypertension with estimated RV systolic pressure 66 mmHg. Difficult assessment for valvular heart disease. Findings: 1. Quality: Poor, apical views almost nondiagnostic 2. Left Ventricle: Normal size and systolic function. Ejection fraction 70 to 75% indeterminate diastolic function 3. Left Atrium: Not visualized 4. Right Ventricle: Not visualized 5. Right Atrium: Not visualized 6. Aortic Valve: Trileaflet and nonrestrictive. No significant insufficiency. Appears nonrestricted with no obvious insufficiency seen, trileaflet. 7. Mitral Valve: Not seen on apical views. Mild annular calcification, thickening of subvalvular structures on parasternal views difficult to assess for insufficiency 8. Tricuspid Valve: Poorly visualized. Insufficiency present cannot define severity 9. Pulmonic Valve: Probably normal but not well-visualized 10. Aortic Root: Nondilated 11. Venous: The IVC is enlarged. 12. Pericardium: No significant effusion identified. 13. Other: Patient Values (normal ranges in parenthesis) 2-D Doppler RVd (< 4.2) LVOT Diam 2.0 cm IVSd 1.34 cm ROMERO 2.34 cm AV Vmax 1.1 m/s LVd 3.74 cm (4.2 - 5.8 Male) AV mean grad. 2.5 mmHg (3.8 - 5.2 Female) AV peak grad. 4.7 mmHg LVPWd 1.25 cm LVs 2.34 cm (2.5 - 3.6 Male) AR Vena Contracta (2.2 - 3.5 Female) MV A Vmax 1.25 m/s Ao Root Diameter (< 3.7 Male) MVA 3.6 cm2 (<3.3 Female) Ao Root Diameter 3.6 cm (< 3.7 Male) MV E Vmax 1.5 m/s (<3.3 Female) Ao Root d 2D MV E/A ratio 1.2 LVEF 68 % (50 - 70) MV P1/2T LVFS 37 % (28 - 41) MR ERO 0.2 cm LV mass index 83 g/m (< 115 Male) RVSP 66.1 mmHg (< 95 Female) RVFW S' RWT 0.67 (< .42) TR Vmax 3.57 m/s LVEF MOD 4C 60.3 % RA Pressure 15 mmHg LVEF MOD 2C 70.7 % LVEF Biplane 67.2 % (52 - 72 Male) PV Vmax 1.38 m/s (54 - 74 Female) LA Index (BP) 29.8 ml/m [employer]APSE LAESV [employer]IDE[employer] SALES REPRESENTATIVE NOTES: Definity (if used): 1ml Final IMPRESSION: Poor quality, apical views borderline nondiagnostic. Definity given [id number] [place] [id number] ECHOCARDIOGRAPHY REPORT - [facility] Name: FAHAD BERNABE Age: 28 years Date: 02/25/2019 Hospital #: [id number] : 1990 Room: [address] [place] [address] #: [id number] Sex: M Tech: Gary Calvillo Ordering Physician: [id number] HOLDEN HINTON Height: 57.00 in Sys BP: 124 MARLENE cc: , Weight: 264.00 Nidia BP: 79 Reading Physician: [id number] Marrero MD/ Rhythm: Electronically Signed by: Basilia Marrero MD BSA: 2.02 m on: 02/25/2019 Reason for Study: CHF History:CHF Conclusions: Poor quality, apical views borderline nondiagnostic. Definity given Normal to hyperdynamic left ventricular systolic function with ejection fraction 70 to 75%. Doppler suggests moderate to severe pulmonary hypertension with estimated RV systolic pressure 66 mmHg. Difficult assessment for valvular heart disease. Findings: 1. Quality: Poor, apical views almost nondiagnostic 2. Left Ventricle: Normal size and systolic function. Ejection fraction 70 to 75% indeterminate diastolic function 3. Left Atrium: Not visualized 4. Right Ventricle: Not visualized 5. Right Atrium: Not visualized 6. Aortic Valve: Trileaflet and nonrestrictive. No significant insufficiency. Appears nonrestricted with no obvious insufficiency seen, trileaflet. 7. Mitral Valve: Not seen on apical views. Mild annular calcification, thickening of subvalvular structures on parasternal views difficult to assess for insufficiency 8. Tricuspid Valve: Poorly visualized. Insufficiency present cannot define severity 9. Pulmonic Valve: Probably normal but not well-visualized 10. Aortic Root: Nondilated 11. Venous: The IVC is enlarged. 12. Pericardium: No significant effusion identified. 13. Other: Patient Values (normal ranges in parenthesis) 2-D Doppler RVd (< 4.2) LVOT Diam 2.0 cm IVSd 1.34 cm ROMERO 2.34 cm AV Vmax 1.1 m/s LVd 3.74 cm (4.2 - 5.8 Male) AV mean grad. 2.5 mmHg (3.8 - 5.2 Female) AV peak grad. 4.7 mmHg LVPWd 1.25 cm LVs 2.34 cm (2.5 - 3.6 Male) AR Vena Contracta (2.2 - 3.5 Female) MV A Vmax 1.25 m/s Ao Root Diameter (< 3.7 Male) MVA 3.6 cm2 (<3.3 Female) Ao Root Diameter 3.6 cm (< 3.7 Male) MV E Vmax 1.5 m/s (<3.3 Female) Ao Root d 2D MV E/A ratio 1.2 LVEF 68 % (50 - 70) MV P1/2T LVFS 37 % (28 - 41) MR ERO 0.2 cm LV mass index 83 g/m (< 115 Male) RVSP 66.1 mmHg (< 95 Female) RVFW S' RWT 0.67 (< .42) TR Vmax 3.57 m/s LVEF MOD 4C 60.3 % RA Pressure 15 mmHg LVEF MOD 2C 70.7 % LVEF Biplane 67.2 % (52 - 72 Male) PV Vmax 1.38 m/s (54 - 74 Female) LA Index (BP) 29.8 ml/m [employer] LAESV [employer] SALES REPRESENTATIVE NOTES: Definity (if used): 1ml Final [facility] Poor quality, apical views borderline nondiagnostic. Definity given [facility] [place] Levelon 02-25-2019 Interpretation and review of laboratory results Abnormal [facility] [place] [Moles/Vol] 0.5 mmol/L Low 0.6 - 1. 2 mmol/L [facility] POC ARTERIAL BLOOD GAS PANEL -Formerly [facility] 02-25-2019 Base excess Calc (Bld) [Moles/Vol] 12.9 mmol/L High [facility] Breath rate setting Ventilator synchronized intermittent mandatory 0 [facility] CO2 (Bld) [Partial pressure] 71.3 mm[Hg] High [facility] HCO3 (Bld) [Moles/Vol] 41.1 mmol/L High 22 - 26 mmol/L [facility] Hematocrit (BldA) [Volume fraction] 37.2 % Low 41 - 53 % [facility] Hemoglobin (Bld) [Mass/Vol] 12.1 g/dL Low 13.5 - 18 g/dL [facility] Inhaled oxygen concentration 0 % [facility] Inhaled oxygen flow rate 4 L/min [facility] Interpretation and review of laboratory results Abnormal [facility] Oxygen (Bld) [Partial pressure] 94 mm[Hg] [facility] pH (Bld) 7.37 [pH] [facility] SaO2% (BldA) [Mass fraction] 97.2 % 92 - 99 % [facility] Specimen source Nom (Unsp spec) Radial, left [facility] Tidal volume setting Ventilator 0 [facility] Base excess Calc (Bld) [Moles/Vol] 9.5 mmol/L High [facility] Breath rate setting Ventilator synchronized intermittent mandatory 0 [facility] CO2 (Bld) [Partial pressure] 61.8 mm[Hg] High [facility] HCO3 (Bld) [Moles/Vol] 36.7 mmol/L High 22 - 26 mmol/L [facility] Hematocrit (BldA) [Volume fraction] 37.1 % Low 41 - 53 % [facility] Hemoglobin (Bld) [Mass/Vol] 12.1 g/dL Low 13.5 - 18 g/dL [facility] Inhaled oxygen concentration 0 % [facility] Inhaled oxygen flow rate 2 L/min [facility] Interpretation and review of laboratory results Abnormal [facility] Oxygen (Bld) [Partial pressure] 73 mm[Hg] Low [facility] pH (Bld) 7.38 [pH] [facility] SaO2% (BldA) [Mass fraction] 95.2 % 92 - 99 % [facility] Specimen source Nom (Unsp spec) Radial, left [facility] Tidal volume setting Ventilator 0 [facility] XR MODIFIED BARIUM SWALLOWon 02-25-2019 Recommendation is diet per Speech Pathology. Modified barium swallow study as described above. Please see Speech Pathologist report for complete details. MWK/pji Workstation ID: [id number] [facility] EXAMINATION: XR MODIFIED BARIUM SWALLOW HISTORY: assess pharyngeal integrityORDERING SYSTEM PROVIDED HISTORY: assess pharyngeal integrity, TECHNOLOGIST PROVIDED HISTORY: Illness/Other Reason for exam: assess pharyngeal integrity Encounter Type: Ongoing Additional signs and symptoms: assess pharyngeal integrity Fluoro dose in mGy: 0 ORDERING SYSTEM PROVIDED DIAGNOSIS CODES: TECHNIQUE: Thin liquid, nectar, pudding and cookie consistencies mixed with barium were administered orally to the patient in an upright position while concurrently imaging the swallowing reflex with fluoroscopy. Speech pathology performed the examination while radiology provided imaging assistance. The total fluoroscopy time was: 1 minute and 30 seconds. Number of images: 506. FINDINGS: The oral phase demonstrated slow lqlfvmzl-af-qkedvxdf r transit with posterior fall off into the pharynx with large volumes. The pharyngeal phase demonstrated no significant residue was seen following swallowing. There was some flash penetration seen with the thin liquid when a large volume was ingested. Aspiration was not seen during the examination. [facility] Interface, Rad In Fuji Speechq - 02/25/2019 4:49 PM EST EXAMINATION: XR MODIFIED BARIUM SWALLOW HISTORY: assess pharyngeal integrityORDERING SYSTEM PROVIDED HISTORY: assess pharyngeal integrity, TECHNOLOGIST PROVIDED HISTORY: Illness/Other Reason for exam: assess pharyngeal integrity Encounter Type: Ongoing Additional signs and symptoms: assess pharyngeal integrity Fluoro dose in mGy: 0 ORDERING SYSTEM PROVIDED DIAGNOSIS CODES: TECHNIQUE: Thin liquid, nectar, pudding and cookie consistencies mixed with barium were administered orally to the patient in an upright position while concurrently imaging the swallowing reflex with fluoroscopy. Speech pathology performed the examination while radiology provided imaging assistance. The total fluoroscopy time was: 1 minute and 30 seconds. Number of images: 506. FINDINGS: The oral phase demonstrated slow lymunymb-hu-bjkqkxvu r transit with posterior fall off into the pharynx with large volumes. The pharyngeal phase demonstrated no significant residue was seen following swallowing. There was some flash penetration seen with the thin liquid when a large volume was ingested. Aspiration was not seen during the examination. IMPRESSION: Recommendation is diet per Speech Pathology. Modified barium swallow study as described above. Please see Speech Pathologist report for complete details. [employer] Workstation ID: [id number] [facility] CBC WITH AUTO DIFFERENTIALon 02-24-2019 Basophils (Bld) [#/Vol] 0.02 10*3/uL [facility] Basophils/100 WBC (Bld) 0.3 % [facility] Eosinophils (Bld) [#/Vol] 0.04 10*3/uL [facility] Eosinophils/100 WBC (Bld) 0.7 % [facility] Erythrocyte distribution width (RBC) [Entitic vol] 14.7 % 11.6 - 14.8 % [facility] Hematocrit (Bld) [Volume fraction] 38.2 % Low 41 - 53 % [facility] Hemoglobin (Bld) [Mass/Vol] 11.8 g/dL Low 13.5 - 17.5 g/dL [facility] Immature granulocytes (Bld) [#/Vol] 0.05 10*3/uL [facility] Immature granulocytes/100 WBC (Bld) 0.80 % [facility] Comment on above: The IG parameter is the percentage of metamyelocytes, myelocytes, and promyelocytes. Interpretation and review of laboratory results Abnormal [facility] Lymphocytes (Bld) [#/Vol] 1.37 10*3/uL [facility] Lymphocytes/100 WBC (Bld) 23.2 % [facility] MCH (RBC) [Entitic mass] 32.2 pg 26 - 34 pg [facility] MCHC (RBC) [Mass/Vol] 30.9 g/dL Low 31 - 37 g/dL [facility] MCV (RBC) [Entitic vol] 104.1 fL High 80 - 100 fL [facility] Monocytes (Bld) [#/Vol] 0.55 10*3/uL [facility] Monocytes/100 WBC (Bld) 9.3 % [facility] Neutrophils (Bld) [#/Vol] 3.87 10*3/uL [facility] Neutrophils/100 WBC (Bld) 65.7 % [facility] Nucleated RBC (Bld) [#/Vol] 0.00 10*3/uL [facility] Nucleated RBC/100 WBC (Bld) [Ratio] 0.0 % [facility] Platelet mean volume (Bld) [Entitic vol] 9.4 fL 9 - 15.5 fL [facility] Platelets (Bld) [#/Vol] 233 10*3/uL [facility] RBC (Bld) [#/Vol] 3.67 10*6/uL Low [facility] WBC (Bld) [#/Vol] 5.90 10*3/uL [facility] Comprehensive Metabolic Pane rachel 02-24-2019 Albumin [Mass/Vol] 2.8 g/dL Low 3.2 - 5.2 g/dL [facility] ALP [Catalytic activity/Vol] 80 U/L 40 - 140 U/L [facility] ALT [Catalytic activity/Vol] 20 U/L 14 - 65 U/L [facility] Anion gap [Moles/Vol] 7 mmol/L Low 10 - 20 mmol/L [facility] AST [Catalytic activity/Vol] 12 U/L 0 - 45 U/L [facility] Bilirubin [Mass/Vol] 0.2 mg/dL 0 - 1.3 mg/dL [facility] Calcium [Mass/Vol] 8.8 mg/dL 8.4 - 10. 2 mg/dL [facility] Chloride [Moles/Vol] 106 mmol/L 98 - 108 mmol/L [facility] Creatinine [Mass/Vol] 1.26 mg/dL 0.5 - 1.3 mg/dL [facility] GFR/1.73 sq M predicted among non-blacks MDRD (S/P/Bld) [Vol rate/Area] The eGFR should be used for monitoring renal function only and not for medication dosing. [facility] GFR/1.73 sq M.predicted CKD-EPI (S/P/Bld) [Vol rate/Area] 78 >=60 mL/min/1.73 m2 [facility] Glucose [Mass/Vol] 99 mg/dL 65 - 99 mg/dL [facility] HCO3 [Moles/Vol] 34 mmol/L High 21 - 32 mmol/L [facility] Interpretation and review of laboratory results Abnormal [facility] Potassium [Moles/Vol] 4.3 mmol/L 3.5 - 5.1 mmol/L [facility] Protein [Mass/Vol] 7.8 g/dL 6 - 8 g/dL [facility] alth Sodium [Moles/Vol] 143 mmol/L 135 - 145 mmol/L [facility] Urea nitrogen [Mass/Vol] 12 mg/dL 8 - 25 mg/dL [facility] Urea nitrogen/Creatinine [Mass ratio] 9.5 mg/mg Low [facility] Hemoglobin A1con 02-24-2019 Average glucose Estimated from glycated hemoglobin mass conc (Bld) 117 mg/dL High 68 - 114 mg/dL [facility] HbA1c (Bld) [Mass fraction] 5.7 % High 4 - 5.6 % [facility] Interpretation and review of laboratory results Abnormal [facility] Normal: 4.0% - 5.6% Increased risk for diabetes: 5.7% - 6.4% Diabetes: >= 6.5% Pediatrics: No established reference range Estimated average glucose: 68-114 mg/dL [facility] INFLUENZA A,B RAPID MOLECULA Jesus 02-24-2019 FLUAV RNA EDER+probe Ql (Unsp spec) Not Detected Not Detected [facility] FLUBV RNA EDER+probe Ql (Unsp spec) Not Detected Not Detected [facility] Interpretation and review of laboratory results Normal [facility] Test Method: Nucleic Acid Amplification [facility] LEGIONELLA ANTIGEN, URINEon 02-24-2019 L. pneumophila Ag Ql (U) Negative Negative for Legionella antigen [facility] Comment on above: COMMENT: Results may be affected if patient is on diuretics. INTERPRETATION OF RESULTS: Test detects Legionella pneumophilia serogroup 1 antigens in urine. Legionnaires disease cannot be ruled out since other serogroups and species may also cause disease. Magnesiumon 02-24-2019 Magnesium [Mass/Vol] 2.2 mg/dL 1.6 - 2.4 mg/dL [facility] Otheron 02-24-2019 Interpretation and review of laboratory results Normal [facility] Interpretation and review of laboratory results Normal [facility] Phosphoruson 02-24-2019 Phosphate [Mass/Vol] 4.1 mg/dL 2.7 - 4.5 mg/dL [facility] S.PNEUMONIAE URINE ANTIGENon 02-24-2019 S. pneumoniae Ag Ql (U) Negative Presumptive Negative for Pneumococcal pneumoniae [facility] Comment on above: A negative result jimenes ggests no current or recent pneumococcal infection. A negative result does not rule out Streptococcus pneumoniae infection since the antigen present in the sample may be below the detection limit of the test. TSHon 02-24-2019 TSH Qn 2.18 m[IU]/L [facility] Valproic Acid Levelon 2019 Interpretation and review of laboratory results Abnormal [facility] Valproate [Mass/Vol] 47 ug/mL Low [facility] Alcohol, Medicalon 0 Ethanol [Mass/Vol] mg/dL <10.00 mg/dL [facility] Comment on above: Alcohol cutoff: <10. 00 mg/dL = None Detected Interpretation and review of laboratory results Normal [facility] Ammoniaon 02-23-2019 Ammonia (P) [Mass/Vol] 43 ug/dL [facility] Interpretation and review of laboratory results Normal [facility] BMPon 02-23-2019 Anion gap [Moles/Vol] 10 mmol/L 10 - 20 mmol/L [facility] Calcium [Mass/Vol] 8.3 mg/dL Low 8.4 - 10. 2 mg/dL [facility] Chloride [Moles/Vol] 108 mmol/L 98 - 108 mmol/L [facility] Creatinine [Mass/Vol] 1.20 mg/dL 0.5 - 1.3 mg/dL [facility] GFR/1.73 sq M predicted among non-blacks MDRD (S/P/Bld) [Vol rate/Area] The eGFR should be used for monitoring renal function only and not for medication dosing. [facility] GFR/1.73 sq M.predicted CKD-EPI (S/P/Bld) [Vol rate/Area] 83 >=60 mL/min/1.73 m2 [facility] Glucose [Mass/Vol] 104 mg/dL High 65 - 99 mg/dL [facility] HCO3 [Moles/Vol] 30 mmol/L 21 - 32 mmol/L [facility] Potassium [Moles/Vol] 4.8 mmol/L 3.5 - 5.1 mmol/L [facility] Sodium [Moles/Vol] 143 mmol/L 135 - 145 mmol/L [facility] Urea nitrogen [Mass/Vol] 15 mg/dL 8 - 25 mg/dL [facility] Urea nitrogen/Creatinine [Mass ratio] 12.5 mg/mg [facility] CBC WITH AUTO DIFFERENTIALon 02-23-2019 Basophils (Bld) [#/Vol] 0.03 10*3/uL [facility] Basophils/100 WBC (Bld) 0.3 % [facility] Eosinophils (Bld) [#/Vol] 0.04 10*3/uL [facility] Eosinophils/100 WBC (Bld) 0.4 % [facility] Erythrocyte distribution width (RBC) [Entitic vol] 14.4 % 11.6 - 14.8 % [facility] Hematocrit (Bld) [Volume fraction] 35.1 % Low 41 - 53 % [facility] Hemoglobin (Bld) [Mass/Vol] 10.9 g/dL Low 13.5 - 17.5 g/dL [facility] Immature granulocytes (Bld) [#/Vol] 0.02 10*3/uL [facility] Immature granulocytes/100 WBC (Bld) 0.20 % [facility] Comment on above: The IG parameter is the percentage of metamyelocytes, myelocytes, and promyelocytes. Interpretation and review of laboratory results Abnormal [facility] Lymphocytes (Bld) [#/Vol] 1.22 10*3/uL [facility] Lymphocytes/100 WBC (Bld) 11.1 % [facility] MCH (RBC) [Entitic mass] 32.3 pg 26 - 34 pg [facility] MCHC (RBC) [Mass/Vol] 31.1 g/dL 31 - 37 g/dL [facility] MCV (RBC) [Entitic vol] 104.2 fL High 80 - 100 fL [facility] Monocytes (Bld) [#/Vol] 0.89 10*3/uL [facility] Monocytes/100 WBC (Bld) 8.1 % [facility] Neutrophils (Bld) [#/Vol] 8.75 10*3/uL High [facility] Neutrophils/100 WBC (Bld) 79.9 % [facility] Platelet mean volume (Bld) [Entitic vol] 9.0 fL 9 - 15.5 fL [facility] Platelets (Bld) [#/Vol] 241 10*3/uL [facility] RBC (Bld) [#/Vol] 3.37 10*6/uL Low [facility] WBC (Bld) [#/Vol] 10.95 10*3/uL [facility] CT HEAD OR BRAIN WITHOUT CON TRASTon 02-23-2019 EXAMINATION: CT HEAD OR BRAIN WITHOUT CONTRAST 02/23/2019 COMPARISON: None. HISTORY: Injury/Trauma or Illness?:Illness/Oth er How long have you had these symptoms (acute/chronic)?:Acu te Altered mental status Pt having trouble staying awake today. TECHNIQUE: 3 mm axial images performed through the head. 3 mm axial, sagittal and coronal MPR reconstructions performed. Dose reduction techniques were achieved by using automated exposure control and/or adjustment of mA and/or kV according to patient size and/or use of iterative reconstruction technique. FINDINGS: Some mild cerebral cerebellar atrophy with associated ventricular prominence. This is greater than typically seen for patient's age. There is no evidence of acute hemorrhage, mass effect or midline shift. Visualized paranasal sinuses demonstrate some mild mucosal thickening of the maxillary sinuses bilaterally. Mastoid air cells are clear. No acute osseous abnormality. [facility] Interface, Rad In Sariah Speechq - 02/23/2019 3:59 PM EST EXAMINATION: CT HEAD OR BRAIN WITHOUT CONTRAST 02/23/2019 COMPARISON: None. HISTORY: Injury/Trauma or Illness?:Illness/Oth er How long have you had these symptoms (acute/chronic)?:Acu te Altered mental status Pt having trouble staying awake today. TECHNIQUE: 3 mm axial images performed through the head. 3 mm axial, sagittal and coronal MPR reconstructions performed. Dose reduction techniques were achieved by using automated exposure control and/or adjustment of mA and/or kV according to patient size and/or use of iterative reconstruction technique. FINDINGS: Some mild cerebral cerebellar atrophy with associated ventricular prominence. This is greater than typically seen for patient's age. There is no evidence of acute hemorrhage, mass effect or midline shift. Visualized paranasal sinuses demonstrate some mild mucosal thickening of the maxillary sinuses bilaterally. Mastoid air cells are clear. No acute osseous abnormality. IMPRESSION: 1. No acute intracranial abnormality identified. 2. Mild cerebral and cerebellar atrophy greater than typically seen for patient's age. This may be on the basis of chronic use of antiseizure medication. Correlate clinically. GJT/lab Workstation ID: [id number] [facility] 1. No acute intracranial abnormality identified. 2. Mild cerebral and cerebellar atrophy greater than typically seen for patient's age. This may be on the basis of chronic use of antiseizure medication. Correlate clinically. GJT/lab Workstation ID: [id number] [facility] DRUGS OF ABUSE SCREEN, URINE on 02-23-2019 Amphetamines Ql (U) None Detected None Detected [facility] Comment on above: Urine Amphetamine Cu toff: < 1000 ng/mL = None Detected Barbiturates Screen Ql (U) None Detected None Detected [facility] Comment on above: Urine Barbiturates C utoff: < 200 ng/mL = None Detected Benzodiazepines Ql (U) None Detected None Detected [facility] Comment on above: Urine Benzodiazepine Cutoff: < 200 ng/mL = None Detected Cannabinoids Screen Ql (U) None Detected None Detected [facility] Comment on above: Urine Cannabinoids C utoff: < 50 ng/mL = None Detected Cocaine Ql (U) None Detected None Detected [facility] Comment on above: Urine Cocaine Cutoff : < 300 ng/mL = None Detected Interpretation and review of laboratory results Normal [facility] Methadone Screen Ql (U) None Detected None Detected [facility] Comment on above: Urine Methadone Cuto ff: < 300 ng/mL = None Detected Opiates Screen Ql (U) None Detected None Detected [facility] Comment on above: Urine Opiates Cutoff : < 300 ng/mL = None Detected Oxycodone Ql (U) None Detected None Detected [facility] Comment on above: Urine Oxycodone Cuto ff: < 100 ng/mL = None Detected Screen results should be used for treatment purposes only. [facility] ECG 12-LEADon 02-23-2019 Atrial Rate 80 BPM [facility] P [place] 34 degrees [facility] P-R Interval 194 ms [facility] Q-T Interval 400 ms [facility] QRS Duration 122 ms [facility] QTC Calculation (Bezet) 461 ms [facility] R [place] 43 degrees [facility] T [place] 62 degrees [facility] Ventricular Rate 80 BPM [facility] ECG Cart Interpretation see physician note for interpretation. Normal sinus rhythm Right bundle branch block Cannot rule out Inferior infarct , age undetermined Abnormal ECG Confirmed by Agata Johnston ([id number]) on 02/23/2019 3:42:27 PM [facility] Hepatic Function Panel (LFT) on 02-23-2019 Albumin [Mass/Vol] 2.6 g/dL Low 3.2 - 5.2 g/dL [facility] ALP [Catalytic activity/Vol] 73 U/L 40 - 140 U/L [facility] ALT [Catalytic activity/Vol] 21 U/L 14 - 65 U/L [facility] AST [Catalytic activity/Vol] 18 U/L 0 - 45 U/L [facility] Bilirubin [Mass/Vol] 0.1 mg/dL 0 - 1.3 mg/dL [facility] Bilirubin.conjugate d [Mass/Vol] mg/dL 0 - 0.4 mg/dL [facility] Protein [Mass/Vol] 7.4 g/dL 6 - 8 g/dL [facility] alth Lactic Acid, Plasmaon 2019 Interpretation and review of laboratory results Normal [facility] Lactate [Moles/Vol] 0.7 mmol/L 0.6 - 2 mmol/L [facility] Lipaseon 02-23-2019 Lipase [Catalytic activity/Vol] 129 U/L 73 - 393 U/L [facility] NT Pro BNPon 02-23-2019 Interpretation and review of laboratory results Normal [facility] Natriuretic peptide.B prohormone N-Terminal [Mass/Vol] 252 pg/mL 0 - 300 pg/mL [facility] Pride Study Cut-offs Rule In: < /= 50 Years >450 pg/mL 51 Years - 75 Years >900 pg/mL 76 Years - 99 Years >1800 pg/mL Rule Out: All patients <300 pg/mL [facility] Otheron 02-23-2019 Interpretation and review of laboratory results Abnormal [facility] Interpretation and review of laboratory results Normal [facility] POC ARTERIAL BLOOD GAS PANEL -CALLUM [facility] 02-23-2019 Base excess Calc (Bld) [Moles/Vol] 5.8 mmol/L High [facility] Breath rate setting Ventilator synchronized intermittent mandatory 0 [facility] CO2 (Bld) [Partial pressure] 56.6 mm[Hg] High [facility] HCO3 (Bld) [Moles/Vol] 32.5 mmol/L High 22 - 26 mmol/L [facility] Hematocrit (BldA) [Volume fraction] 35.0 % Low 41 - 53 % [facility] Hemoglobin (Bld) [Mass/Vol] 11.4 g/dL Low 13.5 - 18 g/dL [facility] Inhaled oxygen concentration 0 % [facility] Interpretation and review of laboratory results Abnormal [facility] Oxygen (Bld) [Partial pressure] 82 mm[Hg] [facility] pH (Bld) 7.37 [pH] [facility] SaO2% (BldA) [Mass fraction] 96.7 % 92 - 99 % [facility] Tidal volume setting Ventilator 0 [facility] POC Arterial Blood Gaseson 0 02-23-2019 Base Excess, Arterial 5 High [facility] CO2 (Bld) [Partial pressure] 64.2 mm[Hg] High [facility] HCO3 (Bld) [Moles/Vol] 33.1 mmol/L High 22 - 26 mmol/L [facility] Hematocrit (Bld) [Volume fraction] 34 % Low 41 - 53 % [facility] Hemoglobin (Bld) [Mass/Vol] 11.6 g/dL Low 13.5 - 17.5 g/dL [facility] Interpretation and review of laboratory results Abnormal [facility] Oxygen (Bld) [Partial pressure] 76 mm[Hg] Low [facility] pH (Bld) 7.32 [pH] Low [facility] SaO2% (BldA) [Mass fraction] 93.0 % 92 - 99 % [facility] POC Glucoseon 02-23-2019 Glucose [Mass/Vol] 100 mg/dL Abnormal 65 - 99 mg/dL [facility] Interpretation and review of laboratory results Abnormal [facility] Glucose [Mass/Vol] 100 mg/dL High 65 - 99 mg/dL [facility] Interpretation and review of laboratory results Abnormal [facility] PT/INRon 02-23-2019 INR Coag (PPP) [Relative time] 1.1 {INR} [facility] Interpretation and review of laboratory results Normal [facility] PT Coag (PPP) [Time] 13.8 s [facility] During the induction phase of oral anticoagulation, the INR may not reflect the anticoagulation status of the patient. Therapeutic ranges for INR's are: Most clinical situations: INR 2.0-3.0 Mechanical Prosthetic Valve: INR 2.5-3.5 Critical: INR >5.0 [facility] TSH with Reflex Free T4on TSH Qn 1.01 m[IU]/L [facility] URINALYSISon 02-23-2019 Bacteria Auto Ql (U) Rare Abnormal None Seen /hpf [facility] Bilirubin Ql (U) Negative Negative [facility] Clarity Refractometry automated (U) Clear Clear [facility] Hospital Color (U) Yellow Colorless, Yellow [facility] Epithelial cells.squamous Auto (Urine sed) [#/Area] 1 [facility] Glucose Auto test strip (U) [Mass/Vol] Negative Negative mg/dL [facility] Hemoglobin Auto test strip Ql (U) Negative Negative [facility] Interpretation and review of laboratory results Abnormal [facility] Ketones (U) [Mass/Vol] Negative Negative mg/dL [facility] Leukocyte esterase Auto test strip Ql (U) Negative Negative [facility] Nitrite Auto test strip Ql (U) Negative Negative [facility] pH (U) 6.0 [pH] [facility] Protein (U) [Mass/Vol] Negative Negative mg/dL [facility] Specific gravity (U) [Rel density] 1.015 [facility] Urobilinogen (U) [Mass/Vol] <2.0 <2.0 mg/dL [facility] WBC Auto (Urine sed) [#/Area] 1 [facility] Microscopic examination is performed on all urinalysis samples and only positive findings are reported. The test for blood on the chemical analytic portion of urinalysis may also be positive due to hemoglobinuria and myoglobinuria and if red blood cells are present they are quantified by microscopic examination. [facility] Valproic Acid Levelon 2019 Interpretation and review of laboratory results Normal [facility] Valproate [Mass/Vol] 72 ug/mL [facility] XR Chest 1 Viewon 02-23-2019 EXAMINATION: 1 VIEW XR CHEST PA/AP, 02/23/2019 COMPARISON: Chest, 01/06/2018 HISTORY: Injury/Trauma or Illness?:Illness/Oth er How long have you had these symptoms (acute/chronic)?:Acu te Altered mental status [facility] 1. Mild diffuse interstitial edema and/or mild inflammatory infectious pneumonitis. Correlate clinically. 2. Mild prominent cardiac silhouette slightly accentuated due to patient rotation to the left. 3. No acute osseous abnormality. [employer] Workstation ID: [id number] [facility] Interface, Rad In [employer] Speech[employer] - 02/23/2019 3:59 PM EST EXAMINATION: 1 VIEW XR CHEST PA/AP, 02/23/2019 COMPARISON: Chest, 01/06/2018 HISTORY: Injury/Trauma or Illness?:Illness/Oth er How long have you had these symptoms (acute/chronic)?:Acu te Altered mental status IMPRESSION: 1. Mild diffuse interstitial edema and/or mild inflammatory infectious pneumonitis. Correlate clinically. 2. Mild prominent cardiac silhouette slightly accentuated due to patient rotation to the left. 3. No acute osseous abnormality. [employer] ([employer] Workstation ID: [id number] [facility] CBCon 01-08-2018 ABSOLUTE BAS 0.0 X10 Normal [facility] Comment on above: Result Comment: Test ing performed at [place] [address] Performed By: #### A CBC, ITROT, BMPF ####[place] [address] ABSOLUTE EOS 0.00 X10 Normal [facility] Comment on above: Performed By: #### A CBC, ITROT, BMPF ####[place] [address] ABSOLUTE NEUTROPHIL COUNT 7.0 x10 Normal 1.0-7.0 [facility] Comment on above: Performed By: #### A CBC, ITROT, BMPF ####Testing performed at [address] [address] Basophils/100 WBC Auto (Bld) 0.1 % Normal 0.0-2.0 [facility] Comment on above: Performed By: #### A CBC, ITROT, BMPF ####Testing performed at [address] [address] DTYPE AUTO DIFF Normal [facility] Comment on above: Performed By: #### A CBC, ITROT, BMPF ####Testing performed at [address] [address] Eosinophils/100 WBC Auto (Bld) 0.0 % Normal 0.0-11.0 [facility] Comment on above: Performed By: #### A CBC, ITROT, BMPF ####Testing performed at [address] [address] Lymphocytes Auto #/vol (Bld) 1.50 X10 Normal [facility] Comment on above: Performed By: #### A CBC, ITROT, BMPF ####Testing performed at [address] [address] Lymphocytes/100 WBC Auto (Bld) 16.7 % Low 20.0-55.0 [facility] Comment on above: Performed By: #### A CBC, ITROT, BMPF ####Testing performed at [address] [address] Monocytes Auto #/vol (Bld) 0.5 X10 Normal [facility] Comment on above: Performed By: #### A CBC, ITROT, BMPF ####Testing performed at [address] [address] Monocytes/100 WBC Auto (Bld) 5.2 % Normal 0.0-10.0 [facility] Comment on above: Performed By: #### A CBC, ITROT, BMPF ####Testing performed at [address] [address] Neutrophils/100 WBC Auto (Bld) 78.0 % High 37.0-75.0 [facility] Comment on above: Performed By: #### A CBC ITROT, BMPF ####[place] [address] Erythrocyte distribution width Auto Ratio (RBC) 15.3 % High 11.5-14.5 [facility] Comment on above: Performed By: #### A CBCSUSUOT, BMPF ####[place] [address] Hematocrit Auto Volume Fraction (Bld) 35.6 % Low 42.0-52.0 [facility] Comment on above: Performed By: #### A CBC ITROT, BMPF ####[place] [address] Hemoglobin mass conc (Bld) 11.7 g/dL Low 14.0-18.0 [facility] Comment on above: Performed By: #### A CBC, ITROT, BMPF ####[place] [address] MCH Auto Entitic mass (RBC) 33.1 pg Normal 26.0-35.0 [facility] Comment on above: Performed By: #### A CBC ITROT, BMPF ####[place] [address] MCHC Auto mass conc (RBC) 32.8 g/dL Normal 27.0-37.0 [facility] Comment on above: Performed By: #### A CBC, ITROT, BMPF ####[place] [address] MCV Auto Entitic volume (RBC) 101.2 fL High 80.0-100.0 [facility] Comment on above: Performed By: #### A CBC, ITROT, BMPF ####[place] [address] Platelet mean volume Auto Entitic volume (Bld) 7.6 fL Normal 7.4-11.0 [facility] Comment on above: Performed By: #### A CBC, ITROT, BMPF ####Testing performed at [place] [id number] Platelets Auto #/vol (Bld) 213 /cmm Normal 130.0-400.0 [facility] Comment on above: Performed By: #### A CBC, ITROT, BMPF ####[place] [address] RBC Auto #/vol (Bld) 3.52 /cmm Low 4.0-6.1 [facility] Comment on above: Performed By: #### A CBC, ITROT, BMPF ####[place] [address] WBC Auto #/vol (Bld) 9.0 /cmm Normal 3.6-11.0 [facility] Comment on above: Performed By: #### A CBC, ITROT, BMPF ####[place] [address] CBC, EDIF, PLATELETon 2017 ABSOLUTE BASOPHIL COUNT 0.0 Invalid Interpretation Code X10 [address] Comment on above: Testing performed at [place] [address] Basophils/100 WBC Auto (Bld) 0.1 % Invalid Interpretation Code 0 - 2 % [address] Differential cell count method Nom (Bld) AUTO DIFF Invalid Interpretation Code % [address] Eosinophils Auto #/vol (Bld) 0.00 10*3/uL Invalid Interpretation Code X10 [address] Eosinophils/100 WBC Auto (Bld) 0.0 % Invalid Interpretation Code 0 - 11 % [address] Erythrocyte distribution width Ratio (RBC) 15.3 % High 11.5 - 14.5 % [address] Hematocrit Auto Volume Fraction (Bld) 35.6 % Low 42 - 52 % [address] Hemoglobin mass conc (Bld) 11.7 g/dL Low [address] Lymphocytes Manual cnt #/vol (Bld) 1.50 Invalid Interpretation Code X10 [address] Lymphocytes/100 WBC Auto (Bld) 16.7 % Low 20 - 55 % [address] MCH Auto Entitic mass (RBC) 33.1 pg Invalid Interpretation Code 26 - [address] MCHC Auto mass conc (RBC) 32.8 g/dL Invalid Interpretation Code [address] MCV Auto Entitic volume (RBC) 101.2 fL High [address] Monocytes Manual cnt #/vol (Bld) 0.5 Invalid Interpretation Code X10 [address] Monocytes/100 WBC Auto (Bld) 5.2 % Invalid Interpretation Code 0 - 10 % [address] Neutrophils Auto #/vol (Bld) 7.0 10*3/uL Invalid Interpretation Code [address] Neutrophils/100 WBC Auto (Bld) 78.0 % High 37 - 75 % [address] Platelet mean volume Auto Entitic volume (Bld) 7.6 fL Invalid Interpretation Code [address] Platelets Auto #/vol (Bld) 213 10*3/uL Invalid Interpretation Code [address] RBC Auto #/vol (Bld) 3.52 10*6/uL Low [address] WBC Auto #/vol (Bld) 9.0 10*3/uL Invalid Interpretation Code [address] CHEST WITHOUT CONTRASTon 01-08-2018 CT CHEST WITHOUT CONTRAST EXAM: CT CHEST WITHOUT CONTRAST CLINICAL STATEMENT: Left-sided pneumonia. COMPARISON: Chest x-ray from the day before. TECHNIQUE: CT examination of the chest without IV contrast. Coronal and sagittal reformations were performed. Dose reduction techniques were achieved by using automated exposure control and/or adjustment of mA and/or kV according to patient size and/or use of iterative reconstruction technique. FINDINGS: LUNGS: There are moderately diffuse left lung infiltrates.PLEURA: No effusions. No pneumothorax.CARDIOV ASCULAR: Normal heart and aorta. Moderate right coronary artery atherosclerosis is unusual.MEDIASTINUM: Normal thyroid, trachea, and esophagus.LYMPH NODES: No adenopathy.UPPER ABDOMEN: Normal.SKELETAL: No lytic or sclerotic lesions. No fractures.IMPRESSION : 1. Diffuse left lung infiltrates consistent with upper and lower lobe pneumonia.2. There is moderate right coronary artery atherosclerosis, unusual in a patient of this age. Normal [facility] EXAM: CT CHEST WITHOUT CONTRAST CLINICAL STATEMENT: Left-sided pneumonia. COMPARISON: Chest x-ray from the day before. TECHNIQUE: CT examination of the chest without IV contrast. Coronal and sagittal reformations were performed. Dose reduction techniques were achieved by using automated exposure control and/or adjustment of mA and/or kV according to patient size and/or use of iterative reconstruction technique. FINDINGS: LUNGS: There are moderately diffuse left lung infiltrates. PLEURA: No effusions. No pneumothorax. CARDIOVASCULAR: Normal heart and aorta. Moderate right coronary artery atherosclerosis is unusual. MEDIASTINUM: Normal thyroid, trachea, and esophagus. LYMPH NODES: No adenopathy. UPPER ABDOMEN: Normal. SKELETAL: No lytic or sclerotic lesions. No fractures. Invalid Interpretation Code RADIOLOGY IMPRESSION: 1. Diffuse left lung infiltrates consistent with upper and lower lobe pneumonia. 2. There is moderate right coronary artery atherosclerosis, unusual in a patient of this age. Invalid Interpretation Code RADIOLOGY User, Interfaces - 01/08/2018 12:16 AM EST EXAM: CT CHEST WITHOUT CONTRAST CLINICAL STATEMENT: Left-sided pneumonia. COMPARISON: Chest x-ray from the day before. TECHNIQUE: CT examination of the chest without IV contrast. Coronal and sagittal reformations were performed. Dose reduction techniques were achieved by using automated exposure control and/or adjustment of mA and/or kV according to patient size and/or use of iterative reconstruction technique. FINDINGS: LUNGS: There are moderately diffuse left lung infiltrates. PLEURA: No effusions. No pneumothorax. CARDIOVASCULAR: Normal heart and aorta. Moderate right coronary artery atherosclerosis is unusual. MEDIASTINUM: Normal thyroid, trachea, and esophagus. LYMPH NODES: No adenopathy. UPPER ABDOMEN: Normal. SKELETAL: No lytic or sclerotic lesions. No fractures. IMPRESSION IMPRESSION: 1. Diffuse left lung infiltrates consistent with upper and lower lobe pneumonia. 2. There is moderate right coronary artery atherosclerosis, unusual in a patient of this age. Invalid Interpretation Code RADIOLOGY MAGNESIUMon 01-08-2018 Magnesium mass conc 2.4 mg/dL High 1.6-2.3 [facility] Comment on above: Result Comment: Test ing performed at [place] [address] Performed By: #### A CBC, ITROT, BMPF ####Testing performed at [place] [id number] [place] [address] Magnesium mass conc 2.4 mg/dL High [address] Comment on above: Testing performed at [place] [address] Otheron 01-08-2018 Interpretation and review of laboratory results Abnormal Invalid Interpretation Code [address] RENAL FUNCTION PANELon 01-08 Albumin mass conc 3.5 G/dl Invalid Interpretation Code 3.5 - 5 G/dl [address] Calcium mass conc 8.8 mg/dL Invalid Interpretation Code [address] Chloride molar conc 113 mmol/L High [address] Comment on above: Please note: Triglyc eride levels of 600mg/dL or higher may positively bias chloride results by approximately 2.1 mmol CO2 molar conc 28 mmol/L Invalid Interpretation Code [address] Creatinine mass conc 1.0 mg/dL Invalid Interpretation Code [address] GFR/1.73 sq M predicted among blacks MDRD vol rate/area (S/P/Bld) mL/min/{1.73_m2} Invalid Interpretation Code ml/min/1.73sq.m [address] GFR/1.73 sq M predicted among non-blacks MDRD vol rate/area (S/P/Bld) Average GFR for 20-29 years old = 116. Invalid Interpretation Code [address] Comment on above: Chronic Kidney disea se, GFR = <60. Kidney failure, GFR = <15. The GFR estimate is not adjusted for extreme body surface area or acute process, nor has it been validated for women or ethnic groups other than and . Testing performed at [place], [place] [address] GFR/1.73 sq M predicted among non-blacks MDRD vol rate/area (S/P/Bld) mL/min/{1.73_m2} Invalid Interpretation Code ml/min/1.73sq.m [address] Glucose fasting mass conc 106 mg/dL High [address] Comment on above: NORMAL <100 mg/dL [place] EDIABETES 101-126 mg/dL DIABETES 126 mg/dL or higher Phosphate mass conc 3.0 mg/dL Invalid Interpretation Code [address] Potassium molar conc 4.4 mmol/L Invalid Interpretation Code [address] Sodium molar conc 145 mmol/L Invalid Interpretation Code [address] Urea nitrogen mass conc 11 mg/dL Invalid Interpretation Code [address] RENAL PANEL,FASTINGon 2017 Albumin mass conc 3.5 G/dl Normal 3.5-5.0 [facility] Comment on above: Performed By: #### A CBC, ITROT, BMPF ####Testing performed at [place] [id number] Calcium mass conc 8.8 mg/dL Normal 8.4-10.2 [facility] Comment on above: Performed By: #### A CBC, ITROT, BMPF ####Testing performed at [address] [address] Chloride molar conc 113 mmol/L High 98-107 [facility] Comment on above: Result Comment: Chayo garner note: Triglyceride levels of 600mg/dL or higher may positively bias chloride results by approximately 2.1 mmol Performed By: #### A CBC, ITROT, BMPF ####Testing performed at [place] [id number] CO2 molar conc 28 mmol/L Normal 22-30 [facility] Comment on above: Performed By: #### A CBC, ITROT, BMPF ####[place] [address] Creatinine mass conc 1.0 mg/dL Normal 0.7-1.2 [facility] Comment on above: Performed By: #### A CBC, ITROT, BMPF ####[place] [address] EST. GFR, >60 Normal [facility] Comment on above: Performed By: #### A CBC, ITROT, BMPF ####[place] [address] EST. GFR,Non >60 Normal [facility] Comment on above: Performed By: #### A CBC, ITROT, BMPF ####[place] [address] GFR/1.73 sq M predicted among non-blacks MDRD vol rate/area (S/P/Bld) Average GFR for 20-29 years old = 116. Normal [facility] Comment on above: Result Comment: [employer] Kidney disease, GFR = <60.Kidney failure, GFR = <15.The GFR estimate is not adjusted for extreme body surface area or acute process, nor has it been validated for women or ethnic groups other than and .Testing performed at [place] [address] Performed By: #### A CBC, ITROT, BMPF ####[place] [address] Glucose mass conc 106 mg/dL High 70-100 [facility] Comment on above: Result Comment: NORM AL <100 mg/dLPREDIABETES 101-126 mg/dLDIABETES 126 mg/dL or higher Performed By: #### A CBC, ITROT, BMPF ####[place] [address] PHOSPHOROUS 3.0 MG/DL Normal 2.5-4.5 [facility] Comment on above: Performed By: #### A CBC, ITROT, BMPF ####[place] [address] Potassium molar conc 4.4 mmol/L Normal 3.5-5.1 [facility] Comment on above: Performed By: #### A CBC, ITROT, BMPF ####[place] [address] Sodium molar conc 145 mmol/L Normal 137-145 [facility] Comment on above: Performed By: #### A CBC, ITROT, BMPF ####[place] [address] Urea nitrogen mass conc (Bld) 11 mg/dL Normal 7-20 [facility] Comment on above: Performed By: #### A CBC, ITROT, BMPF ####[place] [address] CBCon 01-07-2018 ABSOLUTE BAS 0.0 X10 Normal [facility] Comment on above: Result Comment: Test ing performed at [place] [address] Performed By: #### A CBC, ITROT, BMPF ####[place] [address] ABSOLUTE EOS 0.00 X10 Normal [facility] Comment on above: Performed By: #### A CBC, ITROT, BMPF ####[place] [address] ABSOLUTE NEUTROPHIL COUNT 10.6 x10 High 1.0-7.0 [facility] Comment on above: Performed By: #### A CBC, ITROT, BMPF ####[place] [address] Basophils/100 WBC Auto (Bld) 0.1 % Normal 0.0-2.0 [facility] Comment on above: Performed By: #### A CBC, ITROT, BMPF ####[place] [address] DTYPE AUTO DIFF Normal [facility] Comment on above: Performed By: #### A CBC, ITROT, BMPF ####Testing performed at [address] [address] Eosinophils/100 WBC Auto (Bld) 0.0 % Normal 0.0-11.0 [facility] Comment on above: Performed By: #### A CBC, ITROT, BMPF ####Testing performed at [address] [address] Lymphocytes Auto #/vol (Bld) 1.20 X10 Normal [facility] Comment on above: Performed By: #### A CBC, ITROT, BMPF ####Testing performed at [address] [address] Lymphocytes/100 WBC Auto (Bld) 9.7 % Low 20.0-55.0 [facility] Comment on above: Performed By: #### A CBC, ITROT, BMPF ####Testing performed at [place] [id number] Monocytes Auto #/vol (Bld) 0.6 X10 Normal [facility] Comment on above: Performed By: #### A CBC, ITROT, BMPF ####Testing performed at [place] [id number] Monocytes/100 WBC Auto (Bld) 5.1 % Normal 0.0-10.0 [facility] Comment on above: Performed By: #### A CBC, ITROT, BMPF ####Testing performed at [address] [address] Neutrophils/100 WBC Auto (Bld) 85.1 % High 37.0-75.0 [facility] Comment on above: Performed By: #### A CBC, ITROT, BMPF ####Testing performed at [place] [id number] Erythrocyte distribution width Auto Ratio (RBC) 15.4 % High 11.5-14.5 [facility] Comment on above: Performed By: #### A CBC, ITROT, BMPF ####Testing performed at [place] [id number] Hematocrit Auto Volume Fraction (Bld) 35.0 % Low 42.0-52.0 [facility] Comment on above: Performed By: #### A CBCNIVIA, BMPF ####[place] [address] Hemoglobin mass conc (Bld) 11.4 g/dL Low 14.0-18.0 [facility] Comment on above: Performed By: #### A CBC, ITROT, BMPF ####[place] [address] MCH Auto Entitic mass (RBC) 32.9 pg Normal 26.0-35.0 [facility] Comment on above: Performed By: #### A CBC, ITROT, BMPF ####[place] [address] MCHC Auto mass conc (RBC) 32.5 g/dL Normal 27.0-37.0 [facility] Comment on above: Performed By: #### A CBC, ITROT, BMPF ####[place] [address] MCV Auto Entitic volume (RBC) 101.3 fL High 80.0-100.0 [facility] Comment on above: Performed By: #### A CBC, ITROT, BMPF ####[place] [address] Platelet mean volume Auto Entitic volume (Bld) 7.4 fL Normal 7.4-11.0 [facility] Comment on above: Performed By: #### A CBC, ITROT, BMPF ####[place] [address] Platelets Auto #/vol (Bld) 216 /cmm Normal 130.0-400.0 [facility] Comment on above: Performed By: #### A CBC, ITROT, BMPF ####[place] [address] RBC Auto #/vol (Bld) 3.45 /cmm Low 4.0-6.1 [facility] Comment on above: Performed By: #### A CBC, ITROT, BMPF ####[place] [address] WBC Auto #/vol (Bld) 12.5 /cmm High 3.6-11.0 [facility] Comment on above: Performed By: #### A CBC, ITROT, BMPF ####[place] [address] CBC, EDIF, PLATELETon 2017 ABSOLUTE BASOPHIL COUNT 0.0 Invalid Interpretation Code X10 [address] Comment on above: Testing performed at [place] [address] Basophils/100 WBC Auto (Bld) 0.1 % Invalid Interpretation Code 0 - 2 % [address] Differential cell count method Nom (Bld) AUTO DIFF Invalid Interpretation Code % [address] Eosinophils Auto #/vol (Bld) 0.00 10*3/uL Invalid Interpretation Code X10 [address] Eosinophils/100 WBC Auto (Bld) 0.0 % Invalid Interpretation Code 0 - 11 % [address] Erythrocyte distribution width Ratio (RBC) 15.4 % High 11.5 - 14.5 % [address] Hematocrit Auto Volume Fraction (Bld) 35.0 % Low 42 - 52 % [address] Hemoglobin mass conc (Bld) 11.4 g/dL Low [address] Lymphocytes Manual cnt #/vol (Bld) 1.20 Invalid Interpretation Code X10 [address] Lymphocytes/100 WBC Auto (Bld) 9.7 % Low 20 - 55 % [address] MCH Auto Entitic mass (RBC) 32.9 pg Invalid Interpretation Code 26 - [address] MCHC Auto mass conc (RBC) 32.5 g/dL Invalid Interpretation Code [address] MCV Auto Entitic volume (RBC) 101.3 fL High [address] Monocytes Manual cnt #/vol (Bld) 0.6 Invalid Interpretation Code X10 [address] Monocytes/100 WBC Auto (Bld) 5.1 % Invalid Interpretation Code 0 - 10 % [address] Neutrophils Auto #/vol (Bld) 10.6 10*3/uL High [address] Neutrophils/100 WBC Auto (Bld) 85.1 % High 37 - 75 % [address] Platelet mean volume Auto Entitic volume (Bld) 7.4 fL Invalid Interpretation Code [address] Platelets Auto #/vol (Bld) 216 10*3/uL Invalid Interpretation Code [address] RBC Auto #/vol (Bld) 3.45 10*6/uL Low [address] WBC Auto #/vol (Bld) 12.5 10*3/uL [address] L PNEUMOPHILIA AG URINEon L PNEUMOPHILIA AG URINE Negative Normal NEGATIVE [facility] Comment on above: Result Comment: Test ing performed at [place] [address] Performed By: #### A CBC, ITROT, BMPF ####[place] [address] [facility] AGon 12-15 L. pneumophila 1 Ag IA Ql (U) Negative Invalid Interpretation Code NEGATIVE [address] Comment on above: Testing performed at [place] [address] MAGNESIUMon 01-07-2018 Magnesium mass conc 2.2 mg/dL Normal 1.6-2.3 [facility] Comment on above: Result Comment: Test ing performed at [facility], [place], [place] [address] Performed By: #### A CBC, ITROT, BMPF ####Testing performed at [place] [id number] [place] [address] Magnesium mass conc 2.2 mg/dL Invalid Interpretation Code [address] Comment on above: Testing performed at [place], [place] [address] Otheron 01-07-2018 Interpretation and review of laboratory results Abnormal Invalid Interpretation Code [address] RENAL FUNCTION PANELon 01-07 Albumin mass conc 3.3 G/dl Low 3.5 - 5 G/dl [address] Calcium mass conc 8.3 mg/dL Low [address] Chloride molar conc 111 mmol/L High [address] Comment on above: Please note: Triglyc eride levels of 600mg/dL or higher may positively bias chloride results by approximately 2.1 mmol CO2 molar conc 27 mmol/L Invalid Interpretation Code [address] Creatinine mass conc 1.2 mg/dL Invalid Interpretation Code [address] GFR/1.73 sq M predicted among blacks MDRD vol rate/area (S/P/Bld) mL/min/{1.73_m2} Invalid Interpretation Code ml/min/1.73sq.m [address] GFR/1.73 sq M predicted among non-blacks MDRD vol rate/area (S/P/Bld) mL/min/{1.73_m2} Invalid Interpretation Code ml/min/1.73sq.m [address] GFR/1.73 sq M predicted among non-blacks MDRD vol rate/area (S/P/Bld) Average GFR for 20-29 years old = 116. Invalid Interpretation Code [address] Comment on above: Chronic Kidney disea se, GFR = <60. Kidney failure, GFR = <15. The GFR estimate is not adjusted for extreme body surface area or acute process, nor has it been validated for women or ethnic groups other than and . Testing performed at [place] [address] Glucose fasting mass conc 109 mg/dL [address] Comment on above: NORMAL <100 mg/dL [place] EDIABETES 101-126 mg/dL DIABETES 126 mg/dL or higher Phosphate mass conc 2.9 mg/dL Invalid Interpretation Code [address] Potassium molar conc 4.2 mmol/L Invalid Interpretation Code [address] Sodium molar conc 146 mmol/L [address] Urea nitrogen mass conc 10 mg/dL Invalid Interpretation Code [address] RENAL PANEL,FASTINGon 2017 Albumin mass conc 3.3 G/dl Low 3.5-5.0 [facility] Comment on above: Performed By: #### A CBC, ITROT, BMPF ####[place] [address] Calcium mass conc 8.3 mg/dL Low 8.4-10.2 [facility] Comment on above: Performed By: #### A CBC, ITROT, BMPF ####[place] [address] Chloride molar conc 111 mmol/L High 98-107 [facility] Comment on above: Result Comment: Chayo garner note: Triglyceride levels of 600mg/dL or higher may positively bias chloride results by approximately 2.1 mmol Performed By: #### A CBC, ITROT, BMPF ####[place] [address] CO2 molar conc 27 mmol/L Normal 22-30 [facility] Comment on above: Performed By: #### A CBC, ITROT, BMPF ####[place] [address] Creatinine mass conc 1.2 mg/dL Normal 0.7-1.2 [facility] Comment on above: Performed By: #### A CBC, ITROT, BMPF ####[place] [address] EST. GFR, >60 Normal [facility] Comment on above: Performed By: #### A CBC, ITROT, BMPF ####[place] [address] EST. GFR,Non >60 Normal [facility] Comment on above: Performed By: #### A CBC, ITROT, BMPF ####[place] [address] GFR/1.73 sq M predicted among non-blacks MDRD vol rate/area (S/P/Bld) Average GFR for 20-29 years old = 116. Normal [facility] Comment on above: Result Comment: Pan Washer Hand maye Kidney disease, GFR = <60.Kidney failure, GFR = <15.The GFR estimate is not adjusted for extreme body surface area or acute process, nor has it been validated for women or ethnic groups other than and .Testing performed at [place] [address] Performed By: #### A CBC, ITROT, BMPF ####[place] [address] Glucose mass conc 109 mg/dL High 70-100 [facility] Comment on above: Result Comment: NORM AL <100 mg/dLPREDIABETES 101-126 mg/dLDIABETES 126 mg/dL or higher Performed By: #### A CBC, ITROT, BMPF ####[place] [address] PHOSPHOROUS 2.9 MG/DL Normal 2.5-4.5 [facility] Comment on above: Performed By: #### A CBC, ITROT, BMPF ####[place] [address] Potassium molar conc 4.2 mmol/L Normal 3.5-5.1 [facility] Comment on above: Performed By: #### A CBC, ITROT, BMPF ####[place] [address] Sodium molar conc 146 mmol/L High 137-145 [facility] Comment on above: Performed By: #### A CBC, ITROT, BMPF ####[place] [address] Urea nitrogen mass conc (Bld) 10 mg/dL Normal 7-20 [facility] Comment on above: Performed By: #### A CBC, ITROT, BMPF ####[place] [address] RESPIRATORY CULTUREon 2017 RESPIRATORY CULTURE SPECIMEN DESCRIPTION SPUTUMGRAM SMEAR MODERATE * Result Note: WBC'S SEEN * * Result Note: FEW * * Result Note: SQUAMOUS EPITHELIAL CELLS * * Result Note: MODERATE * * Result Note: MIXED GRAM POSITIVE MARICRUZ * * Result Note: NONE * * Result Note: APPEAR PREDOMINANT * * Result Note: SPECIMEN IS OF LEAST ACCEPTABLE QUALITY *CULTURE USUAL OROPHARYNGEAL MARICRUZ * Result Note: MODERATE GROWTH * * Result Note: Testing performed at [place] [address] *REPORT STATUS 01/08/2018 * Result Note: FINAL * Normal [facility] Comment on above: Performed By: #### A CBC, ITROT, BMPF ####[place] [address] S PNEUMONIAE AG URINEon 12-15 S PNEUMONIAE AG URINE Negative Normal NEGATIVE [facility] Comment on above: Result Comment: Test ing performed at [place] [address] Performed By: #### A CBC, ITROT, BMPF ####[place] [address] STREP PNEUMONIAE ANTIGEN, UR INEon 01-07-2018 S. pneumoniae Ag Ql (U) Negative Invalid Interpretation Code NEGATIVE [facility] - [address] [facility] Comment on above: Testing performed at [place] [address] B TYPE NATRIURETIC PEPTIDEon 01-06-2018 Natriuretic peptide B mass conc (Bld) 61 pg/mL Normal 0-100 [facility] Comment on above: Result Comment: Test ing performed at [place] [address] Performed By: #### B CABIN CLEANER ####Testing performed at [place] [id number] [place] [address] B-TYPE NATRIURETIC PEPTIDE ( BRAIN)on 01-06-2018 Natriuretic peptide B mass conc (Bld) 61 pg/mL Invalid Interpretation Code 0 - 100 pg/mL [address] Comment on above: Testing performed at [place] [id number] BASIC METABOLIC PANELon 12-15 Anion gap 3 molar conc 6 mmol/L Low [address] Calcium mass conc 8.8 mg/dL Invalid Interpretation Code [address] Chloride molar conc 107 mmol/L Invalid Interpretation Code [address] Comment on above: Please note: Triglyc eride levels of 600mg/dL or higher may positively bias chloride results by approximately 2.1 mmol CO2 molar conc 30 mmol/L Invalid Interpretation Code [address] Creatinine mass conc 1.3 mg/dL High [address] GFR/1.73 sq M predicted among blacks MDRD vol rate/area (S/P/Bld) mL/min/{1.73_m2} Invalid Interpretation Code ml/min/1.73sq.m [address] GFR/1.73 sq M predicted among non-blacks MDRD vol rate/area (S/P/Bld) Average GFR for 20-29 years old = 116. Invalid Interpretation Code [address] Comment on above: Chronic Kidney disea se, GFR = <60. Kidney failure, GFR = <15. The GFR estimate is not adjusted for extreme body surface area or acute process, nor has it been validated for women or ethnic groups other than and . Testing performed at [place] [id number] GFR/1.73 sq M predicted among non-blacks MDRD vol rate/area (S/P/Bld) mL/min/{1.73_m2} Invalid Interpretation Code ml/min/1.73sq.m [address] Glucose fasting mass conc 121 mg/dL High [facility] - [address] [place] [address] Comment on above: NORMAL <100 mg/dL [place] EDIABETES 101-126 mg/dL DIABETES 126 mg/dL or higher Potassium molar conc 4.3 mmol/L Invalid Interpretation Code [facility] - [address] [place] [address] Sodium molar conc 143 mmol/L Invalid Interpretation Code [address] Urea nitrogen mass conc 13 mg/dL Invalid Interpretation Code [address] BLOOD CULTUREon 01-06-2018 Bacteria identified Cx Nom (Bld) SPECIMEN DESCRIPTION PERIPHERAL BLOOD DRAW CULTURE NO GROWTH 5 DAYS * Result Note: Testing performed at [place] [address] * REPORT STATUS 01/11/2018 * Result Note: FINAL * Normal [facility] Comment on above: Performed By: #### A CBC, ITROT, BMPF ####[place] [address] Bacteria identified Cx Nom (Bld) SPECIMEN DESCRIPTION PERIPHERAL BLOOD DRAW CULTURE NO GROWTH 5 DAYS * Result Note: Testing performed at [place] [address] * REPORT STATUS 01/11/2018 * Result Note: FINAL * Normal [facility] Comment on above: Performed By: #### A CBC, ITROT, BMPF ####[place] [address] BMP FASTINGon 01-06-2018 Anion gap 3 molar conc 6 mmol/L Low 8-16 [facility] Comment on above: Performed By: #### A CBC, ITROT, BMPF ####[place] [address] Calcium mass conc 8.8 mg/dL Normal 8.4-10.2 [facility] Comment on above: Performed By: #### A CBC, ITROT, BMPF ####[place] [address] Chloride molar conc 107 mmol/L Normal 98-107 [facility] Comment on above: Result Comment: Chayo garner note: Triglyceride levels of 600mg/dL or higher may positively bias chloride results by approximately 2.1 mmol Performed By: #### A CBC, ITROT, BMPF ####[place] [address] CO2 molar conc 30 mmol/L Normal 22-30 [facility] Comment on above: Performed By: #### A CBC, ITROT, BMPF ####[place] [address] Creatinine mass conc 1.3 mg/dL High 0.7-1.2 [facility] Comment on above: Performed By: #### A CBC, ITROT, BMPF ####[place] [address] EST. GFR, >60 Normal [facility] Comment on above: Performed By: #### A CBC, ITROT, BMPF ####[place] [address] EST. GFR,Non >60 Normal [facility] Comment on above: Performed By: #### A CBC, ITROT, BMPF ####[place] [address] GFR/1.73 sq M predicted among non-blacks MDRD vol rate/area (S/P/Bld) Average GFR for 20-29 years old = 116. Normal [facility] Comment on above: Result Comment: Pan Washer Hand maye Kidney disease, GFR = <60.Kidney failure, GFR = <15.The GFR estimate is not adjusted for extreme body surface area or acute process, nor has it been validated for women or ethnic groups other than and .Testing performed at [place] [address] Performed By: #### A CBC, ITROT, BMPF ####[place] [address] Glucose mass conc 121 mg/dL High 70-100 [facility] Comment on above: Result Comment: NORM AL <100 mg/dLPREDIABETES 101-126 mg/dLDIABETES 126 mg/dL or higher Performed By: #### A CBC, ITROT, BMPF ####[place] [address] Potassium molar conc 4.3 mmol/L Normal 3.5-5.1 [facility] Comment on above: Performed By: #### A CBC, ITROT, BMPF ####[place] [address] Sodium molar conc 143 mmol/L Normal 137-145 [facility] Comment on above: Performed By: #### A CBC, ITROT, BMPF ####[place] [address] Urea nitrogen mass conc (Bld) 13 mg/dL Normal 7-20 [facility] Comment on above: Performed By: #### A CBC, ITROT, BMPF ####[place] [address] C REACTIVE PROTEINon 018 CRP mass conc 200.1 mg/L High 0-10 [facility] Comment on above: Result Comment: Test ing performed at [place] [address] Performed By: #### A CBC, ITROT, BMPF ####[place] [address] CRP mass conc 200.1 mg/L High 0 - 10 MG/L [facility] - [address] [place] [address] Comment on above: Testing performed at [place] [address] CBCon 01-06-2018 ABSOLUTE BAS 0.0 X10 Normal [facility] Comment on above: Result Comment: Test ing performed at [place] [address] Performed By: #### A CBC, ITROT, BMPF ####[place] [address] ABSOLUTE EOS 0.00 X10 Normal [facility] Comment on above: Performed By: #### A CBC, ITROT, BMPF ####[place] [address] ABSOLUTE NEUTROPHIL COUNT 11.5 x10 High 1.0-7.0 [facility] Comment on above: Performed By: #### A CBC, ITROT, BMPF ####Testing performed at [place] [id number] Basophils/100 WBC Auto (Bld) 0.3 % Normal 0.0-2.0 [facility] Comment on above: Performed By: #### A CBC, ITROT, BMPF ####Testing performed at [place] [id number] DTYPE AUTO DIFF Normal [facility] Comment on above: Performed By: #### A CBC, ITROT, BMPF ####Testing performed at [place] [id number] Eosinophils/100 WBC Auto (Bld) 0.0 % Normal 0.0-11.0 [facility] Comment on above: Performed By: #### A CBC, ITROT, BMPF ####Testing performed at [place] [id number] Lymphocytes Auto #/vol (Bld) 1.00 X10 Normal [facility] Comment on above: Performed By: #### A CBC, ITROT, BMPF ####Testing performed at [address] [address] Lymphocytes/100 WBC Auto (Bld) 7.1 % Low 20.0-55.0 [facility] Comment on above: Performed By: #### A CBC, ITROT, BMPF ####Testing performed at [address] [address] Monocytes Auto #/vol (Bld) 1.2 X10 Normal [facility] Comment on above: Performed By: #### A CBC, ITROT, BMPF ####Testing performed at [address] [address] Monocytes/100 WBC Auto (Bld) 8.5 % Normal 0.0-10.0 [facility] Comment on above: Performed By: #### A CBC, ITROT, BMPF ####[place] [address] Neutrophils/100 WBC Auto (Bld) 84.1 % High 37.0-75.0 [facility] Comment on above: Performed By: #### A CBC, ITROT, BMPF ####[place] [address] Erythrocyte distribution width Auto Ratio (RBC) 15.3 % High 11.5-14.5 [facility] Comment on above: Performed By: #### A CBC, ITROT, BMPF ####[place] [address] Hematocrit Auto Volume Fraction (Bld) 41.2 % Low 42.0-52.0 [facility] Comment on above: Performed By: #### A CBC, ITROT, BMPF ####[place] [address] Hemoglobin mass conc (Bld) 13.5 g/dL Low 14.0-18.0 [facility] Comment on above: Performed By: #### A CBC, ITROT, BMPF ####[place] [address] MCH Auto Entitic mass (RBC) 32.6 pg Normal 26.0-35.0 [facility] Comment on above: Performed By: #### A CBC, ITROT, BMPF ####[place] [address] MCHC Auto mass conc (RBC) 32.7 g/dL Normal 27.0-37.0 [facility] Comment on above: Performed By: #### A CBC, ITROT, BMPF ####[place] [address] MCV Auto Entitic volume (RBC) 99.7 fL Normal 80.0-100.0 [facility] Comment on above: Performed By: #### A CBC, ITROT, BMPF ####[place] [address] Platelet mean volume Auto Entitic volume (Bld) 7.2 fL Low 7.4-11.0 [facility] Comment on above: Performed By: #### A CBC, ITROT, BMPF ####Testing performed at [place] [id number] Platelets Auto #/vol (Bld) 241 /cmm Normal 130.0-400.0 [facility] Comment on above: Performed By: #### A CBC, ITROT, BMPF ####[place] [address] RBC Auto #/vol (Bld) 4.13 /cmm Normal 4.0-6.1 [facility] Comment on above: Performed By: #### A CBC, ITROT, BMPF ####[place] [address] WBC Auto #/vol (Bld) 13.7 /cmm High 3.6-11.0 [facility] Comment on above: Performed By: #### A CBC, ITROT, BMPF ####Testing performed at [place] [id number] CBC, EDIF, PLATELETon 2017 ABSOLUTE BASOPHIL COUNT 0.0 Invalid Interpretation Code X10 [address] Comment on above: Testing performed at [place] [address] Basophils/100 WBC Auto (Bld) 0.3 % Invalid Interpretation Code 0 - 2 % [address] Differential cell count method Nom (Bld) AUTO DIFF Invalid Interpretation Code % [address] Eosinophils Auto #/vol (Bld) 0.00 10*3/uL Invalid Interpretation Code X10 [address] Eosinophils/100 WBC Auto (Bld) 0.0 % Invalid Interpretation Code 0 - 11 % [address] Erythrocyte distribution width Ratio (RBC) 15.3 % High 11.5 - 14.5 % [address] Hematocrit Auto Volume Fraction (Bld) 41.2 % Low 42 - 52 % [address] Hemoglobin mass conc (Bld) 13.5 g/dL Low [address] Lymphocytes Manual cnt #/vol (Bld) 1.00 Invalid Interpretation Code X10 [address] Lymphocytes/100 WBC Auto (Bld) 7.1 % Low 20 - 55 % [address] MCH Auto Entitic mass (RBC) 32.6 pg Invalid Interpretation Code 26 - [address] MCHC Auto mass conc (RBC) 32.7 g/dL Invalid Interpretation Code [address] MCV Auto Entitic volume (RBC) 99.7 fL Invalid Interpretation Code [address] Monocytes Manual cnt #/vol (Bld) 1.2 Invalid Interpretation Code X10 [address] Monocytes/100 WBC Auto (Bld) 8.5 % Invalid Interpretation Code 0 - 10 % [address] Neutrophils Auto #/vol (Bld) 11.5 10*3/uL High [address] Neutrophils/100 WBC Auto (Bld) 84.1 % High 37 - 75 % [address] Platelet mean volume Auto Entitic volume (Bld) 7.2 fL Low [address] Platelets Auto #/vol (Bld) 241 10*3/uL Invalid Interpretation Code [address] RBC Auto #/vol (Bld) 4.13 10*6/uL Invalid Interpretation Code [address] WBC Auto #/vol (Bld) 13.7 10*3/uL [address] ESRon 01-06-2018 ESR Velocity (Bld) 31 mm/h High 0-15 [facility] Comment on above: Result Comment: Test ing performed at [place] [address] Performed By: #### A CBC, ITROT, BMPF ####[place] [address] INFLUENZA A AND B, PCRon FLUBV Ag IA Ql (Unsp spec) Negative Invalid Interpretation Code NEGATIVE [address] Comment on above: TESTING PERFORMED BY EDER Testing performed at [place] [address] INFLUENZA A Negative Invalid Interpretation Code NEGATIVE [address] ISTAT TROPONIN Ion 8 Troponin I.cardiac mass conc ng/mL Normal 0-0.08 [facility] Comment on above: Result Comment: Test ing performed at [place] [address] Performed By: #### A CBC, ITROT, BMPF ####[place] [address] LACTATE, BLOODon 01-06-2018 Lactate molar conc 1.2 mmol/L Invalid Interpretation Code [address] Comment on above: Testing performed at [place] [address] LACTIC ACIDon 01-06-2018 Lactate molar conc 1.2 mmol/L Normal 0.7-2.0 [facility] Comment on above: Result Comment: Test ing performed at [place] [address] Performed By: #### L ACT ####[place] [address] LITHIUMon 01-06-2018 [place] molar conc 0.40 mmol/L Low 0.6-1.2 [facility] Comment on above: Result Comment: Test ing performed at [place] [address] Performed By: #### L I2 ####[place] [address] LITHIUM LEVELon 01-06-2018 Interpretation and review of laboratory results Abnormal Invalid Interpretation Code [address] [place] molar conc 0.40 mmol/L Low [address] Comment on above: Testing performed at [place] [address] MRSA SCREENon 01-06-2018 Methicillin resistant Staphylococcus aureus (MRSA) DNA [Presence] in Unspecified specimen by EDER with probe detection Negative Normal [facility] Comment on above: Performed By: #### A CBC, ITROT, BMPF ####[place] [address] STAPH AUREUS SCREEN Negative Normal [facility] Comment on above: Result Comment: TEST ING PERFORMED BY PCRTesting performed at [place] [address] Performed By: #### A CBC, ITROT, BMPF ####[place] [address] Otheron 01-06-2018 Interpretation and review of laboratory results Abnormal Invalid Interpretation Code [address] Interpretation and review of laboratory results Abnormal Invalid Interpretation Code [address] RAPID FLU Aon 01-06-2018 INFLUENZA A Negative Normal NEGATIVE [facility] Comment on above: Performed By: #### R FLUAB ####[place] [address] INFLUENZA B Negative Normal NEGATIVE [facility] Comment on above: Result Comment: TEST ING PERFORMED BY NAATesting performed at [place] [address] Performed By: #### R FLUAB ####[place] [address] RESPIRATORY CULTUREon 2017 Bacteria identified Cx Nom (Unsp spec) USUAL OROPHARYNGEAL MARICRUZ Invalid Interpretation Code [address] Comment on above: MODERATE GROWTH Test ing performed at [place] [address] Microscopic observation Gram stain Nom (Unsp spec) MODERATE Invalid Interpretation Code [address] Comment on above: WBC'S SEEN FEW SQUAM OUS EPITHELIAL CELLS MODERATE MIXED GRAM POSITIVE MARICRUZ NONE APPEAR PREDOMINANT SPECIMEN IS OF LEAST ACCEPTABLE QUALITY REPORT STATUS 01/08/2018 Invalid Interpretation Code [address] Comment on above: FINAL SPECIMEN DESCRIPTION SPUTUM Invalid Interpretation Code [address] SCREEN: MRSA ONLY, NARES (IS OLATION SCREEN)on 01-06-2018 MRSA isol Org specific cx Ql (Nose) Negative Invalid Interpretation Code [facility] - [address] [place] [address] STAPHYOCOCCUS AUREUS BY PCR Negative Invalid Interpretation Code [address] Comment on above: TESTING PERFORMED BY PCR Testing performed at [place] [address] SEDIMENTATION RATE, AUTOMATE Don 01-06-2018 ESR Velocity (Bld) 31 mm/h High [address] Comment on above: Testing performed at [place] [address] TROPONINon 01-06-2018 Troponin I.cardiac mass conc ng/mL Invalid Interpretation Code 0 - 0.08 ng/mL [address] Comment on above: Testing performed at [place] [address] TSHon 01-06-2018 Thyrotropin Qn 0.994 uIU/ML Normal 0.46-4.68 [facility] Comment on above: Result Comment: Test ing performed at [place] [address] Performed By: #### T SH2 ####[place] [address] Thyrotropin Qn 0.994 m[IU]/L Invalid Interpretation Code [address] Comment on above: Testing performed at [place] [address] XR CHEST AP PORTABLEon 01-06 XR CHEST AP PORTABLE EXAM: XR CHEST AP PORTABLE REASON FOR EXAM: Cough. TECHNIQUE: 1 view chest. COMPARISON: None.FINDINGS: Left-sided consolidation is suspected and layering pleural space fluid may contribute to hazy opacity left hemithorax. There is subsegmental right basilar atelectasis. Suboptimal inspiration accentuates the size of the heart. Bony thorax is grossly unremarkable. Two-view chest x-ray is advised.IMPRESSION:L eft-sided pneumonia with suspected parapneumonic effusion. Normal [facility] EXAM: XR CHEST AP PORTABLE REASON FOR EXAM: Cough. TECHNIQUE: 1 view chest. COMPARISON: None. FINDINGS: Left-sided consolidation is suspected and layering pleural space fluid may contribute to hazy opacity left hemithorax. There is subsegmental right basilar atelectasis. Suboptimal inspiration accentuates the size of the heart. Bony thorax is grossly unremarkable. Two-view chest x-ray is advised. Invalid Interpretation Code RADIOLOGY IMPRESSION: Left-sided pneumonia with suspected parapneumonic effusion. Invalid Interpretation Code RADIOLOGY User, Interfaces - 01/06/2018 7:10 PM EST EXAM: XR CHEST AP PORTABLE REASON FOR EXAM: Cough. TECHNIQUE: 1 view chest. COMPARISON: None. FINDINGS: Left-sided consolidation is suspected and layering pleural space fluid may contribute to hazy opacity left hemithorax. There is subsegmental right basilar atelectasis. Suboptimal inspiration accentuates the size of the heart. Bony thorax is grossly unremarkable. Two-view chest x-ray is advised. IMPRESSION IMPRESSION: Left-sided pneumonia with suspected parapneumonic effusion. Invalid Interpretation Code RADIOLOGY XR CHEST PA AND LATERALon XR CHEST PA AND LATERAL TWO-VIEW CHESTCOMPARISON: Portable chest from 01/06/2018.REASON FOR STUDY: Pneumonia.REPORT: Trachea and mediastinum and the diaphragm are unremarkable. Heart size is mildly prominent but stable. There appears to be chronic changes bilaterally in the form of slight interstitial congestion and mild edema. There also appears to be mild atelectasis or infiltrates in the lung bases.The bony elements are intact.IMPRESSION: 1. Stable cardiomegaly.2. Mild atelectasis or infiltrates in the lung bases.3. Chronic changes and what also appears to be slight to mild interstitial congestion possibly with slight or early pulmonary edema. Please correlate clinically. [facility] TWO-VIEW CHEST COMPARISON: Portable chest from 01/06/2018. REASON FOR STUDY: Pneumonia. REPORT: Trachea and mediastinum and the diaphragm are unremarkable. Heart size is mildly prominent but stable. There appears to be chronic changes bilaterally in the form of slight interstitial congestion and mild edema. There also appears to be mild atelectasis or infiltrates in the lung bases. The bony elements are intact. Invalid Interpretation Code RADIOLOGY User, Interfaces - 01/06/2018 1:42 PM EST TWO-VIEW CHEST COMPARISON: Portable chest from 01/06/2018. REASON FOR STUDY: Pneumonia. REPORT: Trachea and mediastinum and the diaphragm are unremarkable. Heart size is mildly prominent but stable. There appears to be chronic changes bilaterally in the form of slight interstitial congestion and mild edema. There also appears to be mild atelectasis or infiltrates in the lung bases. The bony elements are intact. IMPRESSION IMPRESSION: 1. Stable cardiomegaly. 2. Mild atelectasis or infiltrates in the lung bases. 3. Chronic changes and what also appears to be slight to mild interstitial congestion possibly with slight or early pulmonary edema. Please correlate clinically. Invalid Interpretation Code RADIOLOGY IMPRESSION: 1. Stable cardiomegaly. 2. Mild atelectasis or infiltrates in the lung bases. 3. Chronic changes and what also appears to be slight to mild interstitial congestion possibly with slight or early pulmonary edema. Please correlate clinically. Invalid Interpretation Code RADIOLOGY Vital Signs Date Time Vital Sign Value Performing Clinician Facility 11-03-2022 10:00-0400 Body height 157.48 cm Martha Richmond Other [facility] Other 11-03-2022 10:00-0400 Body mass index (BMI) [Ratio] 29.08 kg/m2 Martha Richmond Other [facility] Other 11-03-2022 10:00-0400 Body weight 72.12 kg Martha Richmond Other [facility] Other 12-02-2021 12:30-0400 Body height 157.48 cm Thiago Chandler Other [facility] Other 12-02-2021 12:30-0400 Body mass index (BMI) [Ratio] 29.08 kg/m2 Thiago Chandler Other [facility] Other 12-02-2021 12:30-0400 Body temperature 97.1 [degF] Thiago Chandler Other [facility] Other 12-02-2021 12:30-0400 Body weight 72.12 kg Thiago Chandler Other [facility] Other 10-20-2022 12:30-0400 Diastolic blood pressure 78 mm[Hg] Thiago Chandler Other [facility] Other 12-02-2021 12:30-0400 SaO2% (BldA) [Mass fraction] 100 % Thiago Chandler Other [facility] Other 12-02-2021 12:30-0400 Systolic blood pressure 114 mm[Hg] Thiago Chandler Other [facility] Other 11-04-2021 11:00-0400 Body height 157.48 cm Martha Yi Other [facility] Other 11-04-2021 11:00-0400 Body mass index (BMI) [Ratio] 29.28 kg/m2 Martha Yi Other [facility] Other 11-04-2021 11:00-0400 Body weight 72.62 kg Martha Yi Other [facility] Other 08-05-2021 14:00-0400 Body height 144.78 cm Thiago Chandler Other [facility] Other 08-05-2021 14:00-0400 Body mass index (BMI) [Ratio] 32.46 kg/m2 Thiago Chandler Other [facility] Other 08-05-2021 14:00-0400 Body temperature 97 [degF] Thiago Chandler Other [facility] Other 08-05-2021 14:00-0400 Body weight 68.04 kg Thiago Chandler Other [facility] Other 08-05-2021 14:00-0400 Diastolic blood pressure 73 mm[Hg] Thiago Chandler Other [facility] Other 08-05-2021 14:00-0400 SaO2% (BldA) [Mass fraction] 97 % Thiago Chandler Other [facility] Other 08-05-2021 14:00-0400 Systolic blood pressure 110 mm[Hg] Thiago Chandler Other [facility] Other 05-27-2021 09:30-0400 Body height 152.4 cm Franck Carballo MD Work Phone: [facility] 05-27-2021 09:30-0400 Body mass index (BMI) [Ratio] 30.47 kg/m2 Franck Carballo MD Work Phone: [facility] 05-27-2021 09:30-0400 Body weight 70.76 kg Franck Carballo MD Work Phone: [facility] 05-27-2021 09:30-0400 Diastolic blood pressure 69 mm[Hg] Franck Carballo MD Work Phone: [facility] 05-27-2021 09:30-0400 Heart rate 97 /min Franck Carballo MD Work Phone: [facility] 05-27-2021 09:30-0400 SaO2% (BldA) [Mass fraction] 91 % Franck Carballo MD Work Phone: [facility] 05-27-2021 09:30-0400 Systolic blood pressure 105 mm[Hg] Franck Carballo MD Work Phone: [facility] 03-01-2019 08:00-0500 Respiratory Rate 16 /min Generic [facility] 03-01-2019 07:23-0500 BP Diastolic 69 mm[Hg] Generic [facility] 03-01-2019 07:23-0500 BP Systolic 100 mm[Hg] Generic [facility] 03-01-2019 07:23-0500 Pulse (Heart Rate) 91 /min Generic [facility] 03-01-2019 07:23-0500 Pulse Oximetry 100 % [facility] 03-01-2019 06:00-0500 BMI (Body Mass Index) 44.56 kg/m2 [facility] 03-01-2019 06:00-0500 Body weight 93.4 kg [facility] Comment on above: standing weight 03-01-2019 04:01-0500 Body Temperature 98.8 [degF] [facility] 02-25-2019 14:40-0500 Respiratory rate 17 /min [facility] 02-25-2019 10:56-0500 Respiratory rate 0 /min [facility] 02-23-2019 21:56-0500 Respiratory rate 0 /min [facility] 02-23-2019 18:33-0500 BP Diastolic 78 mm[Hg] [facility] 02-23-2019 18:33-0500 BP Systolic 139 mm[Hg] [facility] 02-23-2019 18:33-0500 Pulse (Heart Rate) 78 /min [facility] 02-23-2019 18:33-0500 Pulse Oximetry 99 % [facility] 02-23-2019 18:33-0500 Respiratory Rate 16 /min [facility] 02-23-2019 13:38-0500 BMI (Body Mass Index) 43.28 kg/m2 [facility] 02-23-2019 13:38-0500 Body Temperature 97.39 [degF] [facility] 02-23-2019 13:38-0500 Body weight 90.72 kg [facility] 02-23-2019 13:38-0500 Height 144.8 cm [facility] 01-08-2018 11:54-0500 Body Temperature 98.01 [degF] [facility] Work Phone: 01-08-2018 11:54-0500 BP Diastolic 48 mm[Hg] [facility] Work Phone: 01-08-2018 11:54-0500 BP Systolic 115 mm[Hg] Joaquin [facility] Work Phone: 01-08-2018 11:54-0500 Pulse (Heart Rate) 75 /min Joaquin [facility] Work Phone: 01-08-2018 11:54-0500 Pulse Oximetry 97 % [facility] Work Phone: 01-08-2018 11:54-0500 Respiratory Rate 18 /min [facility] Work Phone: 01-08-2018 03:51-0500 BMI (Body Mass Index) 45.89 kg/m2 [facility] Work Phone: 01-08-2018 03:51-0500 Weight 96.2 kg [facility] Work Phone: 01-06-2018 16:24-0500 Height 144.8 cm [facility] Work Phone: Encounters Encounter Date Encounter Type Care Provider Facility Start: 11-30-2022 End: 11-30-2022 ambulatory Thiago Chandler Facility:[facility] Start: 11-30-2022 End: 11-30-2022 ambulatory DO Iftikhar Kemp Work Phone: [facility] Work Phone: Start: 11-30-2022 End: 11-30-2022 Patient encounter procedure DO Iftikhar Kemp Work Phone: [facility] Work Phone: Start: 11-03-2022 End: 11-03-2022 ambulatory Martha Yi Other [facility] Other Start: 11-03-2022 Office outpatient vi sit 25 minutes Martha Yi [facility] Start: 05-17-2022 End: 05-18-[address] IFTIKHAR KEMP Facility: Start: 02-22-2022 Letter encounter Shay martinez Start: 01-11-2022 End: 01-11-2022 ambulatory Thiago Chandler Facility:[facility] Start: 01-11-2022 End: 01-11-2022 ambulatory DO Iftikhar Kemp Work Phone: [facility] Work Phone: Start: 01-11-2022 End: 01-11-2022 Patient encounter procedure DO Iftikhar Kemp Work Phone: [facility] Start: 12-02-2021 Office outpatient vi sit 25 minutes Thiago Chandler [facility] Start: 12-02-2021 End: 12-02-2021 ambulatory DO Iftikhar Kemp Work Phone: [facility] Other Start: 12-02-2021 End: 12-02-2021 Patient encounter procedure DO Iftikhar Kemp Work Phone: [facility] Start: 11-04-2021 End: 11-04-2021 ambulatory Martha Yi Other [facility] Other Start: 11-04-2021 Office outpatient vi sit 25 minutes Martha Yi [facility] Start: 10-13-2021 End: 10-13-2021 Patient encounter procedure DO Iftikhar Kemp Work Phone: [facility] Start: 09-22-2021 ambulatory UNKNOWN PROVIDER Facili ty:[facility] Start: 09-22-2021 End: 09-22-2021 Patient encounter procedure Renetta Bautista DDS Work Phone: [facility] Start: 08-05-2021 End: 08-05-2021 ambulatory Thiago Chandler Other [employer] Other Start: 08-05-2021 Office outpatient vi sit 25 minutes Thiago Chandler [facility] Start: 08-05-2021 End: 08-05-2021 Patient encounter procedure DO Iftikhar Kemp Work Phone: [facility] Start: 07-14-2021 End: 07-15-[address] DOCTOR RUSSELL Facility:[facility] Start: 06-08-2021 End: 06-09-2021 ambulatory UNKNOWN PROVIDER Facility:[facility] Start: 06-08-2021 End: 06-09-2021 Patient encounter procedure Vivi Clemons [facility] Work Phone: [facility] Start: 06-03-2021 End: 06-03-2021 ambulatory [facility] Start: 06-01-2021 End: 06-02-[address] IFTIKHAR KEMP Facility: Start: 05-27-2021 End: 05-27-2021 ambulatory Counts include 234 beds at the [facility] Start: 05-27-2021 End: 05-27-2021 Office outpatient new 30 minutes Franck Carballo MD Work Phone: [facility] Comment on above: Esophageal dysphagia (Primary Dx); Food bolus obstruction of intestine (HCC) Start: 05-03-2021 End: 05-06-2021 Evaluation and management of inpatient ZULAY SVITLANA BECKHAM [facility] Start: 05-02-2021 End: 05-03-2021 Emergency department patient visit IFTIKHAR [facility] Start: 07-08-2020 End: 07-09-2020 ambulatory IFTIKHAR Fam [facility] Start: 07-08-2020 End: 07-08-2020 Subsequent hospital visit by physician Iftikhar Kemp DO Work Phone: [facility] Comment on above: Arrived Start: 04-02-2020 End: 04-02-2020 Orders Only Melissa Presley Work Phone: [facility] Start: 02-23-2019 End: 03-01-2019 Evaluation and management of inpatient Generic [facility] Work Phone: [facility] Cardiovascular Step Down Comment on above: Acute metabolic ence phalopathy (Primary Dx) Start: 02-23-2019 End: 02-23-2019 Emergency department patient visit [facility] Start: 01-06-2018 End: 01-08-2018 Evaluation and management of inpatient JOAQUIN JOSE [facility] Start: 01-06-2018 End: 01-08-2018 Evaluation and management of inpatient Joaquin [facility] Work Phone: [facility] Comment on above: Pneumonia Procedures Date Procedure Procedure Detail Performing Clinician Start: 07-08-2020 Radiologic exam swal low function contrast study External Transcribed Start: 03-01-2019 Complete blood count with white cell differential, automated Dialia Durairaj Work Phone: Start: 03-01-2019 Complete blood count with white cell differential, manual Idalia Durairaj Work Phone: Start: 03-01-2019 Basic metabolic 2000 panel - Serum or Plasma Idalia Durairaj Work Phone: Start: 03-01-2019 Magnesium [Mass/volu me] in Serum or Plasma Idalia Durairaj Work Phone: Start: 03-01-2019 Phosphate [Mass/volu me] in Serum or Plasma Idalia Durairaj Work Phone: Start: 02-28-2019 Basic metabolic 2000 panel - Serum or Plasma Idalia Durairaj Work Phone: Start: 02-28-2019 Complete blood count with white cell differential, automated Idalia Durairaj Work Phone: Start: 02-28-2019 Complete blood count with white cell differential, manual Idalia Durairaj Work Phone: Start: 02-28-2019 Magnesium [Mass/volu me] in Serum or Plasma Idalia Durairaj Work Phone: Start: 02-28-2019 Phosphate [Mass/volu me] in Serum or Plasma Idalia Sims Work Phone: Start: 02-27-2019 Basic metabolic 2000 panel - Serum or Plasma Idalia Sims Work Phone: Start: 02-26-2019 Natriuretic peptide. B prohormone N-Terminal [Mass/volume] in Serum or Plasma Idalia Sims Work Phone: Start: 02-25-2019 Evaluation of arteri al blood gas studies Generic [facility] Work Phone: Start: 02-25-2019 OBTAIN ARTERIAL BLOO D GASES AND PERFORM Stuartankur Mcgrath Work Phone: Start: 02-25-2019 Videofluoroscopy swallow Stuartankur Mcgrath Work Phone: Start: 02-25-2019 Contrast echocardiography Holden Whiteside Work Phone: Start: 02-25-2019 [place] [Moles/volum e] in Serum or Plasma Stuart Mcgrath Work Phone: Start: 02-24-2019 Influenza virus A AN D B antigen assay Stuart Mcgrath Work Phone: Start: 02-24-2019 Evaluation of arteri al blood gas studies Generic [facility] Work Phone: Start: 02-24-2019 OBTAIN ARTERIAL BLOO D GASES AND PERFORM Stuart Ofcarlos enriquedaniel Work Phone: Start: 02-24-2019 Streptococcus pneumo niae antigen assay Holden Whiteside Work Phone: Start: 02-24-2019 Legionella antigen assay Holden Whiteside Work Phone: Start: 02-24-2019 Complete blood count with white cell differential, automated Holden Hinton Marlene Work Phone: Start: 02-24-2019 Complete blood count with white cell differential, manual Holden Whiteside Work Phone: Start: 02-24-2019 Comprehensive metabo lic 2000 panel - Serum or Plasma Holden Whiteside Work Phone: Start: 02-24-2019 Hemoglobin A1c/Hemoglobin.total in Blood Hodlen Whiteside Work Phone: Start: 02-24-2019 Magnesium [Mass/volu me] in Serum or Plasma Holden Whiteside Work Phone: Start: 02-24-2019 Phosphate [Mass/volu me] in Serum or Plasma Holden Whiteside Work Phone: Start: 02-24-2019 Thyrotropin [Units/v olume] in Serum or Plasma by Detection limit <= 0.005 mIU/L Holden Whiteside Work Phone: Start: 02-24-2019 Valproate [Mass/volu me] in Serum or Plasma Stuart Corrycarlos enriquedaniel Work Phone: Start: 02-23-2019 Evaluation of arteri al blood gas studies Generic [facility] Work Phone: Start: 02-23-2019 Blood count hematocrit [facility] Start: 02-23-2019 Drugs of abuse urine screening test Jenelle So Work Phone: Start: 02-23-2019 Urinalysis Jenelle So Work Phone: Start: 02-23-2019 OBTAIN ARTERIAL BLOO D GASES AND PERFORM Jenelle So Work Phone: Start: 02-23-2019 Radiologic exam ches t single view Jenelle So Work Phone: Start: 02-23-2019 CT of head without contrast Jenelle So Work Phone: Start: 02-23-2019 Ammonia [Mass/volume ] in Plasma Jenelle So Work Phone: Start: 02-23-2019 Basic metabolic 2000 panel - Serum or Plasma Jenelle So Work Phone: Start: 02-23-2019 Complete blood count with white cell differential, automated Jenelle So Work Phone: Start: 02-23-2019 Complete blood count with white cell differential, manual Jenelle So Work Phone: Start: 02-23-2019 Ethanol [Mass/volume ] in Serum or Plasma Jenelle So Work Phone: Start: 02-23-2019 End: 02-23-2019 Glucose [Mass/volume] in Blood Jenelle So Work Phone: Start: 02-23-2019 Hepatic function 200 0 panel - Serum or Plasma Jenelle So Work Phone: Start: 02-23-2019 INR in Platelet poor plasma by Coagulation assay Jenelle So Work Phone: Start: 02-23-2019 Lactate [Moles/volum e] in Serum or Plasma Jenelle So Work Phone: Start: 02-23-2019 Lipase [Enzymatic activity/volume] in Serum or Plasma Jenelle So Work Phone: Start: 02-23-2019 Natriuretic peptide. B prohormone N-Terminal [Mass/volume] in Serum or Plasma Jenelle So Work Phone: Start: 02-23-2019 Thyrotropin [Units/v olume] in Serum or Plasma by Detection limit <= 0.005 mIU/L Jenelle So Work Phone: Start: 02-23-2019 Valproate [Mass/volu me] in Serum or Plasma Jenelle So Work Phone: Start: 02-23-2019 12 lead ECG Jenelle So Work Phone: Start: 01-08-2018 End: 01-08-2018 Assay of magnesium [employer]nie [employer] Phone: Start: 01-08-2018 End: 01-08-2018 CBC, EDIF, PLATELET [employer] Phone: Start: 01-08-2018 End: 01-08-2018 Renal function panel Bonnie [employer] Phone: Start: 01-07-2018 End: 01-07-2018 CT of chest [employer] [employer] Phone: Start: 01-07-2018 End: 01-07-2018 Assay of magnesium [employer] Phone: Start: 01-07-2018 End: 01-07-2018 CBC, EDIF, PLATELET Bonnie Commissioner Phone: Start: 01-07-2018 End: 01-07-2018 Renal function panel Bonnie Commissioner Phone: Start: 01-07-2018 End: 01-07-2018 Iaad ia mult step method nos each organism [employer] Phone: Start: 01-06-2018 End: 01-06-2018 Cul bact xcpt urine blood/stool aerobic isol Bonnie Commissioner Phone: Start: 01-06-2018 End: 01-06-2018 C-reactive protein Bonnie Commissioner Phone: Start: 01-06-2018 End: 01-06-2018 Sedimentation rate rbc non-automated Bonnie Commissioner Phone: Start: 01-06-2018 End: 01-06-2018 Cultyp nuc acid amp prb cult/isolate ea angelabrentlarry Nuñez Jose Work Phone: Start: 01-06-2018 End: 01-06-2018 Culture bacterial blood aerobic w/id isolates Naida Masters Work Phone: Start: 01-06-2018 End: 01-06-2018 Assay of lactate Naida Masters Work Phone: Start: 01-06-2018 End: 01-06-2018 Assay of thyroid stimulating hormone tsh Naida Masters Work Phone: Start: 01-06-2018 End: 01-06-2018 Drug screen quantitative lithium Naida Masters Work Phone: Start: 01-06-2018 End: 01-06-2018 Diagnostic radiography of chest, combined PA and lateral Naida Masters Work Phone: Start: 01-06-2018 End: 01-06-2018 Standard ECG Naida Masters Work Phone: Start: 01-06-2018 End: 01-06-2018 Assay of troponin quantitative Naida Masters Work Phone: Start: 01-06-2018 End: 01-06-2018 Basic metabolic panel calcium total Naida Masters Work Phone: Start: 01-06-2018 End: 01-06-2018 Blood count complete auto&auto difrntl wbc Naida Masters Work Phone: Start: 01-06-2018 End: 01-06-2018 Natriuretic peptide Naida Masters Work Phone: Start: 01-06-2018 End: 01-06-2018 Infectious agent dna/rna influenza 1st 2 types Naida Masters Work Phone: Plan of Treatment Date Care Activity Detail Author Start: 2042 Shingles (RZV) Vaccine (1 of 2) Shingles (RZV) [facility] Start: 10-04-2028 Tetanus vaccination [facility] Start: 11-13-2021 Influenza vaccination Influenza Vaccine (#1) [facility] Start: 06-03-2021 End: 06-03-2021 Admission to same day surgery center 06/03/2021 Surgery Franck Carballo MD [facility] [address]ra Bautista [place] [id number] ESOPHAGOGASTRODUODENOSCOPY [facility] Comment on above: ESOPHAGOGASTRODUODENOSCOPY Start: 06-03-2021 End: 06-03-2021 Esophagogastroduodenoscopy ESOPHAGOGASTRODUODENOSCOPY Esophageal dysphagia Food bolus obstruction of intestine (HCC) 06/03/2021 8:10 AM EDT [facility] Start: 06-03-2021 Subsequent hospital visit by physician 06/03/2021 Hospital Encounter Franck Carballo MD [address] [address] [facility] Start: 10-14-2020 Influenza vaccination Sequential Influenza Vaccine (Season Ended) [facility] Start: 08-14-2020 COVID-19 Vaccine (3 - Booster for Pfizer series) COVID-19 Vaccine (3 - Booster for Pfizer series) [facility] Start: 05-12-2020 COVID-19 Vaccine (3 - Booster for Pfizer series) COVID-19 Vaccine (3 - Booster for Pfizer series) [facility] Start: 10-15-2019 Influenza vaccination given Sequential Influenza Vacci ne (#1) [facility] Start: 01-06-2019 Thyrotropin Qn TSH [facility] Work Phone: Start: 10-14-2018 Influenza vaccination given SEQUENTIAL INFLUENZA VACCI NE (#1) [facility] Start: 10-14-2017 Influenza vaccination INFLUENZA VACCINE (#1) [facility] Work Phone: Start: 08-22-2011 Third diphtheria, tetanus and acellular pertussis (DTaP) vaccination TDAP (ADULT) [facility] Work Phone: Start: 2010 Hepatitis C antibody, confirmatory test Hepatitis C Screening [facility] Start: 2010 Hepatitis C screening [facility] Start: 2010 Tetanus + diphtheria + acellular pertussis vaccine (product) Tdap Booster [facility] Start: 2010 Tetanus vaccination TETANUS [facility] Work Phone: Start: 08-22-2007 HIV screening [facility] Start: 2005 HIV screening HIV SCREENING DISCUSSION [facility] Work Phone: Start: 2004 Adolescent depression screening assessment Depression Screening (PHQ9) [facility] Start: 2004 COVID-19 Vaccine (1) COVID-19 Vaccine (1) [facility] Start: 2004 Depression screening using PHQ-9 (Patient Health Questionnaire 9) score [facility] Start: 08-22-1995 History and physical examination, annual for health maintenance Wellness Visit [facility] Start: 1992 Tetanus vaccination TETANUS EVERY 10 YR [facility] Bacteria identified Cx Nom (Bld) [facility] Work Phone: End: 02-23-2019 Bacteria identified Cx Nom (Bld) Blood Culture Aerobic/Anaerobic Microbiology Routine Once for 1 Occurrences starting 02/23/2019 until 02/23/2019 [facility] Comment on above: Once for 1 Occurrences starting 02/23/19 20 until 02/23/2019 CBC, EDIF, PLATELET CBC, EDIF, P LATELET Routine Every morning Lab until discontinued starting 01/07/2018, 2 completed [facility] Work Phone: Comment on above: Every morning Lab until discontinued sta rting 01/07/2018, 2 completed MAGNESIUM MAGNESIUM Routin e Every morning Lab until discontinued starting 01/07/2018, 2 completed [facility] Work Phone: Comment on above: Every morning Lab until discontinued sta rting 01/07/2018, 2 completed RENAL FUNCTION PANEL RENAL FUNCT ION PANEL Routine Every morning Lab until discontinued starting 01/07/2018, 2 completed [facility] Work Phone: Comment on above: Every morning Lab until discontinued sta rting 01/07/2018, 2 completed Standard ECG ECG STAT 018 12:02 PM EST [facility] Work Phone: Immunizations Immunization Date Immunization Notes Care Provider Vimal angulo 03-17-2020 COVID-19 Vaccine Pfizer - Documentation Purposes Only Thiago Chandler Other [facility] Other 02-25-2020 COVID-19 Vaccine Pfizer - Documentation Purposes Only Thiago Chandler Other [facility] Other 11-20-2019 influenza, injectabl e, quadrivalent, preservative free Vivi Deonte RDH Work Phone: [facility] 11-20-2019 influenza virus vaccine, unspecified formulation Renetta Freemanrial DDS Work Phone: [facility] 11-22-2017 influenza, injectabl e, quadrivalent, preservative free Vivi Deonte RDH Work Phone: [facility] 12-07-2016 influenza, injectabl e, quadrivalent, contains preservative Vivi Deonte RDH Work Phone: [facility] 11-18-2015 influenza, seasonal, injectable Vivi Deonte RDH Work Phone: [facility] 12-04-2014 influenza, injectabl e, quadrivalent, preservative free Vivi Deonte RDH Work Phone: [facility] 12-19-2013 influenza, injectabl e, quadrivalent, preservative free Vivi Deonte RDH Work Phone: [facility] 12-12-2012 influenza, seasonal, injectable Vivi Deonte RDH Work Phone: [facility] 12-07-2011 influenza, seasonal, injectable Vivi Deonte RDH Work Phone: [facility] 10-27-2010 influenza virus vaccine, whole virus Vivi Deonte RDH Work Phone: [facility] 12-31-2008 novel [id number], preservative-free, injectable Vivi Deonte RDH Work Phone: [facility] 07-12-2005 TD(adult) unspecifie d formulation Vivi Clemons [facility] Work Phone: [facility] Payers Date Payer Category Payer Self-pay [id number] 2019 [place] xxxxxxxxxxxx 2019-Present [id number] 2019 [place] [id number] 2019-Present [id number] 2019 Medicaid [id number] 1992 Unknown [id number] 1992 Unknown [id number] 1992 Unknown [id number] 1992 Unknown [id number] 1992 Unknown [id number] 1992 Unknown [id number] 1992 Unknown [id number] 1992 Unknown [id number] 1992 Unknown [id number] 1959 Medicaid [id number] Unknown [id number] Unknown [id number] Unknown [id number] Social History Date Type Detail Facility Start: 01-06-2018 End: 02-22-2019 Tobacco smoking status NHIS Never smoker [facility] Work Phone: Start: 1990 Sex Assigned At Not on file O [facility] Work Phone: Start: 02-23-2019 End: 05-27-2021 Alcohol intake Lifetime non-drinker (finding) [facility] Start: 02-23-2019 End: 02-28-2019 History SDOH Alcohol Frequency 1 [facility] Start: 02-23-2019 End: 02-28-2019 Tobacco use and exposure Never used [facility] Start: 05-17-2021 End: 05-27-2021 Exposure to SARS-CoV-2 (event) Not sure [facility] Tobacco smoking status MIIS Tobacco smoking consumption unknown [facility] Sex Assigned At Sex Assigned At Bir th [facility] Other Start: 1990 Sex Assigned At Male F [facility] Clinical Notes 07-08-2020 to 11-03-2022 Note Date & Type Note Facility 11-03-2022 Evaluation note Encounter Date Diagnosis Assessment Notes Oct, Pulmonary hypertension (ICD-10 - I27.20) Oct, Sleep apnea in adult (ICD-10 - G47.33) Oct, Pickwickian syndrome (ICD-10 - E66.2) Oct, Pneumonia (ICD-10 - J18.9) Continue with aspiration prevention measures as you are [facility] Other 09-21-2023 History general Narrative - Reported* Type Description Date Medical History sleep apnea....Auto CPAP 8-12 wi th O2 at 3 liters Medical History Hypothyroidism Medical History cleft palate Medical History pulmonary HTN Medical History ADHD Medical History Seizure Disorder Surgical History Heart 2 holes upper and lower a t Surgical History tubes in ears Hospitalization History pneumonia [facility] 09/2018 Hospitalization History Sepsis [facility] 09/2018 Hospitalization History [facility] pneumonia 12/2018 Hospitalization History [facility] Lynnette eld Pneuminia 02/2019 [facility] Other 10-20-2022 Evaluation note* Encounter Date Diagnosis Assessment Notes Treatment Notes Treatment Clinical Notes Nov, Obstructive sleep apnea (adult) (pediatric) (ICD-10 - G47.33) Reviewed mood the sleep test report with the care provider and they expressed good understanding. His recently completed test shows that hypoxia has resolved, so we can stop oxygen supplementation and his Pap device. It may be worth considering repeat diagnostic polysomnography to see if weight loss is even progressed to the point that the apnea has completely resolved. In the meantime he should continue using positive airway pressure. However I will reduce the settings to minimum 4 maximum 7 Nov, Pickwickian syndrome (ICD-10 - E66.2) This has resolved apparently due to successful weight loss Nov, Pulmonary hypertension (ICD-10 - I27.20) He has prior history of pulmonary hypertension which has been managed by pulmonary medicine, he has responded to diuretics and to oxygen therapy [facility] Other 09-22-2022 Evaluation note* Encounter Date Diagnosis Assessment Notes Treatment Notes Treatment Clinical Notes Oct, Pulmonary hypertension (ICD-10 - I27.20) Oct, Sleep apnea in adult (ICD-10 - G47.33) Continue to follow Dr. Chandler recommendations. [facility] geospatial technician stated results of most recent sleep study completed 10/13/2021 will be discussed at patient's next sleep lab visit in November 2021. Oct, Pickwickian syndrome (ICD-10 - E66.2) Oct, Pneumonia (ICD-10 - J18.9) [facility] Other 08-10-2022 History of Present illness Narrative* Michelle Singh DDS - 09/22/2021 10:00 AM EDT ----- Wednesday, September 22, 2021 at 11:33:21 AM ----- ----- Provider: [id number] - Michelle Singh, Resident -- Clinic: [place] ----- COMPOSITE YARSANI Patient is scheduled for Hindu on tooth #22-MDF, 23-MDF, 24-MDF, 25-MDF, 26-MDF and 27 surface MDF. Reviewed Medical History. Pt exhibited the following conditions: Mental Disorders Patient is ready for treatment. Topical Benzocaine gel applied at the injection site for 2 minutes. Administered 1 carpules of Lidocaine, 2% with Epinephrine 1:100,000,. Decay/existing latter-day removed, cavity prepared. Selectively etched enamel with 37% phosphoric acid, rinsed, and blot dried. OptiBond davidson applied and light-cured. Condensed packable composite shade in light cured increments using Mylar strip and wedge. Finished with finishing burs, checked occlusion, verified proximal contacts and latter-day was polished. Rinsed and suctioned intraorally, advised patient to not eat until local anesthesia wears off. POST OPERATIVE Periapical (multiple) RADIOGRAPH TAKEN. NOTE: patient is special needs, came in with a caregiver, patient was very cooperative. Patient had excessive saliva and he was frequently closing his mouth during restorations. Marceloand noticed in post op xray, re-did the restorations, flossed his teeth, made sure margins are smooth and intact. Next Visit: Rian ----- Signed on Wednesday, September 22, 2021 at 11:49:29 AM ----- ----- Provider: [id number] - Duc Zapata DDS -- Clinic: [place] ----- documented in this [id number] Evaluation note* Encounter Date Diagnosis Assessment Notes Treatment Notes Treatment Clinical Notes Jul, Obstructive sleep apnea (adult) (pediatric) (ICD-10 - G47.33) His primary physician requested reassessment as Mr. Bernabe has lost substantial weight, and there was hope that his sleep apnea may have improved with this. While his weight loss is no doubt been beneficial overall, his download shows that he continues to need significant positive airway pressure treatment in order to control his apneas. If he had lost enough weight to make a substantial impact on sleep apnea we would expect mean and 95th percentile pressures to be much closer to the lower setting, and if anything he is at the higher range of current settings.... However it is possible that with weight loss the pickwickian component of his respiratory status may have improved. Retitration he is reasonable to assess ongoing need for oxygen in addition to control of obstructive sleep apnea Jul, Pickwickian syndrome (ICD-10 - E66.2) Hypoventilation can significantly improve with weight reduction in some patients Jul, Pulmonary hypertension (ICD-10 - I27.20) He has prior history of pulmonary hypertension which has been managed by pulmonary medicine, he has responded to diuretics and to oxygen therapy [facility] Other 06-23-2022 History general Narrative - Reported* Type Description Date Medical History sleep apnea....Auto CPAP 8-12 O2 at 3 liters Medical History Hypothyroidism Medical History cleft palate Medical History pulmonary HTN Medical History ADHD Medical History Seizure Disorder Surgical History Heart 2 holes upper and lower a t Surgical History tubes in ears Hospitalization History pneumonia [facility] 09/2018 Hospitalization History Sepsis [facility] 09/2018 Hospitalization History [facility] pneumonia 12/2018 Hospitalization History [facility]. Manssravani eld Pneuminia 02/2019 [facility] Other 04-26-2022 History of Present illness Narrative* Vivi Clemons, [facility] - 06/08/2021 10:54 AM EDT [facility], Pt is ready for tx PT is special needs and presents with a caregiver. He is VERY COOPERATIVE Pt presented for Periodic Examination, Pain Scale: 0. Pt chief complaint: FOLLOW UP Radiographs taken today were: 4 BW Examination reveals: all mandibular anterior teeth have severe demineralization, they will need restored. Soft tissue is within normal limits, TMJ is within normal limits, Verified charting, Updates made. Went over current needs and past needs that have not been fulfilled. Oral hygiene instructions given to the patient Pt is scheduled for Prophylaxis, Examination of dentition and gingiva was done, and revealed that the pt has: Plaque _mod__ Calculus _light__ Staining _intrinsic__ *Hand scaling was done using curettes. Teeth were polished with pumice. Pt tolerated procedure well. OHI and education were discussed with the pt. Written instructions were handed to the pt/AVS. Place pt on 6 month recall. Examination completed by /[facility]: mian ----- Signed on Tuesday, June 08, 2021 at 2:17:56 PM ----- ----- Provider: Emeterio aZpata DDS -- Clinic: [place] ----- documented in this [id number] NoteEXAMINATION: XR CHEST 2 V HISTORY: COVID-19 pneumonia COMPARISON: No relevant comparison available. FINDINGS: LUNGS: No significant pulmonary parenchymal abnormalities. VASCULATURE: No increased pulmonary vasculature. PLEURA: No pneumothorax, effusion, or pleural thickening. CARDIAC: No cardiomegaly or cardiac silhouette abnormality. MEDIASTINUM: No visible mass or adenopathy. BONES: No fracture or visible bone lesion. OTHER: Negative. IMPRESSION: 1. No acute cardiac pulmonary process. Electronically authenticated by: ZULAY LYLE Date: 2021-06-01 11:36[facility]04-14-2022 History of Present illness Narrative* Franck Carballo MD - 05/27/2021 9:54 AM EDT Subjective Patient ID: Fahad Bernabe is a 30 y.o. male. HPI Patient referred for evaluation of dysphagia. The patient was recently admitted for covid pneumonia. While hospitalized the patient underwent a CT of the chest. CT at that time reported impacted food bolus within the midthoracic esophagus. In spite of this, the patient had been eating and drinking following the imaging without event. The patient does have a history of dysphagia and requires a modified diet. He has had previous bedside swallow evaluations and barium swallows. The patient has not had a prior EGD. The patient was placed on a puree diet at the time of hospitalization and he did not enjoy this much so he was not eating as well. Since then he has been placed back on his mechanical soft diet and is tolerating. He did lose some weight around the time of his covid pneumonia. Recommended endoscopic evaluation to assess for retained esophageal contents, possible anatomic variation that could potentially require intervention. Past Medical History: Diagnosis Date ADHD Bipolar 1 disorder (HCC) Depression Disease of thyroid gland Down's syndrome History of COVID-19 OCD (obsessive compulsive disorder) Seizures (HCC) Sleep apnea Past Surgical History: Procedure Laterality Date CARDIAC SURGERY As an has a current medication list which includes the following prescription(s): acetaminophen, albuterol, b complex vitamins, benzonatate, benzoyl peroxide, carbamazepine, chlorpromazine, chlorpromazine,clonidine hcl, divalproex, divalproex, famotidine, furosemide, gabapentin, guaifenesin, levothyroxine, lithium, lorazepam, montelukast, risperidone, vilazodone, and linzess. Allergies: Naproxen Social History Socioeconomic History Marital status: Single Tobacco Use Smoking status: Never Smoker Smokeless tobacco: Never Used Vaping Use Vaping Use: Never used Substance and Sexual Activity Alcohol use: Never Drug use: Never Family History Problem Relation Age of Onset Heart disease Neg Hx Review of Systems Constitutional: Negative for activity change, appetite change, chills, fatigue, fever and unexpected weight change. HENT: Negative for hearing loss, nosebleeds and trouble swallowing. Eyes: Negative for visual disturbance. Respiratory: Negative for cough, shortness of breath, wheezing and stridor. Cardiovascular: Negative for chest pain and leg swelling. Gastrointestinal: Negative for abdominal distention, abdominal pain, blood in stool, constipation, diarrhea, nausea and vomiting. Endocrine: Negative for cold intolerance and heat intolerance. Genitourinary: Negative for difficulty urinating, frequency, hematuria and urgency. Musculoskeletal: Negative for arthralgias. Skin: Negative for rash and wound. Allergic/Immunologic: Negative for environmental allergies and food allergies. Neurological: Negative for seizures, syncope, weakness and numbness. Hematological: Negative for adenopathy. Does not bruise/bleed easily. Psychiatric/Behavioral: Negative for agitation and dysphoric mood. Objective Physical Exam Vitals reviewed. Constitutional: General: He is not in acute distress. Appearance: Normal appearance. He is well-developed. He is not diaphoretic. HENT: Head: Normocephalic and atraumatic. Right Ear: External ear normal. Left Ear: External ear normal. Nose: Nose normal. Eyes: Pupils: Pupils are equal, round, and reactive to light. Neck: Thyroid: No thyromegaly. Vascular: No JVD. Trachea: No tracheal deviation. Cardiovascular: Rate and Rhythm: Normal rate and regular rhythm. Heart sounds: Normal heart sounds. Pulmonary: Effort: Pulmonary effort is normal. No respiratory distress. Breath sounds: Normal breath sounds. Abdominal: General: Bowel sounds are normal. There is no distension. Palpations: Abdomen is soft. There is no mass. Tenderness: There is no abdominal tenderness. There is no guarding or rebound. Musculoskeletal: General: Normal range of motion. Cervical back: Normal range of motion. Skin: General: Skin is warm and dry. Neurological: General: No focal deficit present. Mental Status: He is alert. Mental status is at baseline. Cranial Nerves: No cranial nerve deficit. Psychiatric: Behavior: Behavior normal. 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 Kemp Radiologist: Dr. Arana Type of Study: Initial MBS Mental Status: Alert, Oriented, Cooperative Oral Status: Permanent teeth Respiratory Status: Room air Feeding: Self View: Lateral Diet Prior to this Study: Thin liquid, Regular 8 Point Penetration-Aspiration Scale Honey: Not Tested [place]: Not Tested Thin: 2 - Material enters airway, remains above the vocal folds and is ejected from the airway. Puree: 1 - Material does not enter airway. Mech. Soft: Not Tested Regular: 1 - Material does not enter airway. Impression: Video fluoroscopy showing two flash penetration events with thin liquids primarily due to the pt's posture- head and neck at nearly horizontal position. Otherwise, appreciated prompt swallow onset onthe pharyngeal phase, functional pharyngeal constriction and adequate inversion of the epiglottis. No aspiration. Textures Used: Textures used: Thin cup, Thin spoon, Thin continuous cup, Pureed spoon, Regular Oral Phase: Oral Preparation/Oral Phase Oral Phase: Within Functional Limits Pharyngeal Phase: Pharyngeal Phase: Mild Esophageal Phase: Esophageal Phase Esophageal Phase: WFL Penetration: Penetration Present?: Yes Penetration Present Penetration Present?: Yes Penetration Characteristics: Trace amount, Shallow Consistencies Penetrated: Thin cup, Thin continuous cup Caused by: Pharyngeal swallow delay, Uncoordinated swallow Response: No cough Is there a Second Penetration?: No Aspiration: Aspiration Present?: No Recommendation: Recommendations PO Recommendations: Thin liquid, Regular Posture: Sit 90 degrees Food Presentation: Small bites Liquid Presentation: Small sips Medication Presentation: Whole with thins Skilled Therapy Needs: Are Skilled Therapy Services Needed After Discharge: No documented in [facility] encounter[facility]HealthEvaluation note* Diagnosis Dyspepsia Dyspepsia and other specified disorders of function of stomach Acute respiratory failure, unspecified whether with hypoxia or hypercapnia (HCC) [facility] Diagnosis Esophageal dysphagia- Primary Dysphagia, pharyngoesophageal phase Food bolus obstruction of intestine (HCC) Esophageal dysphagia Dysphagia, pharyngoesophageal phase Food bolus obstruction of intestine (HCC) Esophageal dysphagia Dysphagia, pharyngoesophageal phase Food bolus obstruction of intestine (HCC) documented in this encounter [facility] noteNo assessment information availableTrumbull [facility] Work Phone: History general Narrative - Reported* Type Description Date Medical History sleep apnea....Auto CPAP 8-12 wi th O2 at 3 liters Medical History Hypothyroidism Medical History cleft palate Medical History pulmonary HTN Medical History ADHD Medical History Seizure Disorder Surgical History Heart 2 holes upper and lower a t Surgical History tubes in ears Hospitalization History pneumonia [facility] 09/2018 Hospitalization History Sepsis [facility] 09/2018 Hospitalization History [facility] pneumonia 12/2018 Hospitalization History [facility] Lynnette eld Pneuminia 02/2019 [facility] Other Reason for Referral Status Reason Specialty Diagnoses / Procedures Referre d By Contact Referred To Contact Bonnie Shankar, CLOTH WASHER OPERATOR-PEDIATRIC ALLERGIST [address] [place] [address] Status Reason Specialty Diagnoses / Procedures Re ferred By Contact Referred To Contact New Request Procedures INPATIENT ADMISSION NOTIFICATION Joaquin Garcia MD [address] [id number] Status Reason Specialty Diagnoses / Procedures Referre d By Contact Referred To Contact Closed Procedures ECG Naida Masters, DANIA [address] [place] [address] Status Reason Specialty Diagnoses / Procedures Referred By Contact Referred To Contact Authorized Patient Preference Rehabilitation Diagnoses Acute metabolic encephalopathy Idalia Sims MD [address] [place] [address] Status Reason Specialty Diagnoses / Procedures Referre d By Contact Referred To Contact Closed Radiology Diagnoses Dyspepsia Acute respiratory failure, unspecified whether with hypoxia or hypercapnia (HCC) Procedures XR Modifed Barium Swallow Iftikhar Kemp, DO [address] [place] [address] Discharge Instructions * Discharge Instr - Diet - Brenna Fall RN - 01/08/2018 2:59 PM EST Resume pre-hospital diet As tolerated. * Discharge Instr - Activity - Brenna Fall RN - 01/08/2018 2:58 PM EST Resume pre-hospital activity as tolerated. The following attachments cannot be sent through Care Everywhere. * Benzonatate capsules (Montserratian) * Prednisone tablets (Montserratian) * Levofloxacin tablets (Montserratian) * Adult, Pneumonia (Montserratian) in this encounter* Discharge Instr- IP KIESELGUHR REGENERATOR OPERATOR* Idalia Sims MD - 03/01/2019 10:22 AM EST No straws, please follow aspriartion precautions * Discharge Instr - Care Coordination* Ivory Bhatia LISW - 02/25/2019 12:39 PM EST [facility] - [phone] FAX [phone] [employer] to transport patient - [phone]. * Attachments The following attachments cannot be sent through Care Everywhere. * Aspiration Pneumonia (Montserratian) documented in this encounter History of Present Illness * Dixie Alexander, PT - 01/07/2018 1:31 PM EST Formatting of this note may be different from the original. 01/07/18 0836 General Information RN Approved Intervention as tolerated Diagnosis pneumonia Surgical Procedure none during current acute care stay Past Medical History Past Medical History: Diagnosis Date ADHD Apnea Blepharitis Depression Down's syndrome Eczema Hypothyroidism OCD (obsessive compulsive disorder) Seizure Past Surgical History No past surgical history on file. Existing Precautions/Restrictions fall Left Upper Extremity (Weight Bearing Status) full weight bearing Weight-Bearing Status-RUE full weight-bearing Left Lower Extremity (Weight Bearing Status) full weight bearing Right Lower Extremity (Weight Bearing Status) full weight bearing Home Setting Residence (usp; mother assists with pt Hx) Lives With other (see comments) (usp; was home visiting mom when got ill) First floor bed/bathroom yes (all 1 level at [facility]) Number of Stairs to Enter Home (0 at [facility]p; has a couple at mom's house) Number of Stairs Within Home 0 Equipment Available (no DME in use prior, per pt and mother) Previous Level of Function Ambulation Skills independent (pt's mother notes is unsteady at times, but no falls) Assistive Device none used Level of Ambulation community General Pain Documentation (Adult, OB, Peds) Presence of Pain denies pain/discomfort Select Pain Scale DVPRS (Defense and Veterans Pain Rating Scale) (Adult- Cognitively Intact) DVPRS (Defense and Veterans Pain Rating Scale) DVPRS: Rest 0- no pain DVPRS: Activity 0- no pain Cognitive Status Examination Orientation Status (Cognition) person (and birthdate) Level of Consciousness alert;cooperative (with encouragement from pt's mother) Able to Follow Commands (Communication) success, 1-step commands Personal Safety and Judgment impaired Vision corrective lenses needed Hearing no gross deficit noted Speech other (see comments) (pt is verbal, but at times hard to understand) Range of Motion (ROM) Range of Motion Examination bilateral upper extremity ROM was WFL;bilateral lower extremity ROM wasWFL Manual Muscle Testing (MMT) Manual Muscle Testing Results bilateral upper extremity MMT was WFL;bilateral lower extremity MMT was WFL Muscle Tone Assessment LUE Muscle Tone Assessment WNL RUE Muscle Tone Assessment WNL LLE Muscle Tone Assessment WNL RLE Muscle Tone Assessment WNL Skin Integrity Skin integrity (IV intact to RUE) Edema Edema none noted Bed Mobility Skill: Supine to Sit, Rehab Eval Level of Pinal: Supine/Sit other (see comments) (pt found up in chair; assistx1 c DYER ASSISTANT this AM, per mother) Transfer Skill: Sit To Stand, Rehab Eval Pinal (Sit-Stand Transfers) contact guard Physical Assist/Nonphysical Assist: Sit/Stand set-up required;verbal cues;1 person assist (line managment needed) Weight-Bearing Restrictions: Sit/Stand full weight-bearing Assistive Device For Transfer: Sit/Stand (CGAx1 with gait belt only) Gait Skills, PT Eval Level of Pinal: Gait contact guard Physical Assist/Nonphysical Assist: Gait set-up required;verbal cues;1 person assist (line managment needed) Weight-Bearing Restrictions: Gait full weight-bearing Assistive Device For Transfer: Gait other (see comments) (CGAx1 with gait belt only) Gait Distance 200 feet Gait Analysis, PT Eval Gait Pattern Used swing-through gait Gait Deviations Identified (Gait) other (see comments) (note mild short of breath with gait, but O2 sat between 95-97% throughout mobility today, though with note that patient does need cues from therapist to improve upright posture for best lung expansion, as well as to slow pace with mobility to conserve energy and preserve activity tolerance.) Impairments Contributing To Gait Deviations other (see comments) (shortness of breath with mobility due to medical status) Stair Negotiation Level of Pinal: Stair Negotiation (held steps due to pt does not have at [facility]) Balance Additional Documentation (sitting = WNL; standing = good-) Sensory Examination Sensory Examination WFL General Interventions Planned Therapy Interventions balance training;bed mobility training;endurance;gait training;neuromuscular re- education;strengthening;transfer training;postural re-education [facility] Basic Mobility Inpatient Short Form Turning over in bed 4 - No Assistance Sitting/standing from chair 4 - No Assistance Moving from lying on back to sitting 4 - No Assistance Moving to and from bed to chair 4 - No Assistance Walk in hospital room 4 - No Assistance Climbing 3-5 steps with a railing 3 - A Little Assistance [facility] Mobility Raw Score 23 [facility] Mobility Functional Limitation/Modifier 11.20% Prior Functional Impairment in Basic Mobility - CI CURRENT [facility] Basic Mobility Inpatient Short Form Turning over in bed 4 - No Assistance Sitting/standing from chair 3 - A Little Assistance Moving from lying on back to sitting 3 - A Little Assistance Moving to and from bed to chair 3 - A Little Assistance Walk in hospital room 3 - A Little Assistance Climbing 3-5 steps with a railing 2 - A Lot of Assistance CURRENT [facility] Mobility Raw Score 18 CURRENT [facility] Mobility Functional Limitation/Modifier 46.58% Currently Impaired in Basic Mobility - CK Projected [facility] Mobility Raw Score 23 Projected [facility] Mobility Functional Limitation/Modifier 11.20% Projected Functional Impairment in Basic Mobility - CI Assessment Assessment Narrative Pt presents with limited activity tolerance and mild shortness of breath with mobility today related to medical status, and would benefit from skilled PT services during acute care stay to improve mobility tolerance and overall safety with all mobility. Discharge Recommendations [facility] to [facility] with [facility]P Clinical Impression Criteria for Skilled Therapeutic Interventions Met (PT Eval) yes;treatment indicated Impairments Found (PT Eval) aerobic capacity/endurance;arousal, attention, and cognition;gait, locomotion, and balance;posture;ventilation and respiration/gas exchange Rehab Potential (PT Eval) good, to achieve stated therapy goals Therapy Frequency (1-2x/day during acute care stay) PT Therapy Completed Yes Anticipated Equipment Needs at Discharge (PT Eval) other (see comments) (no DME anticipated at this time) Initial Evaluation Completed yes Continue care plan yes Today's Treatment Included evaluation; gait for exercise/improve activity tolerance; pursed lip breathing instruction, as well as BUE movements with deep breathing (flex, ABD 5x each with deep breaths) to improve respiratory functioning for mobility; also instructed in 10x each of ankle pumps and LAQ, but then pt states that he wants to be done for the day. Goals Goals For Discharge Patient to improve functional mobility status/tolerance to return to his prior level of function Goals Goal 1 Pt to be independent with all bed mobility and transfers to demonstrate return to his full PLOF at discharge. Goal 2 Pt to be independent with gait x 350-400ft or better with O2 sat at or greater than 98% throughout to negotiate home and community distances with improved ease, safety, and independence. Goal 3 Pt to improve dynamic standing balance and activity tolerance to go up/down 3-5 steps with railx1 with supervision with O2 sat at or better than 98% throughout to be able to navigate steps in community as needed with good safety at discharge. Goal 4 Pt to demo mod independence with HEP with handouts to maintain therapy gains at discharge. Therapist Recommendations At Discharge Recommendations Will recommend closer to Discharge;other (see comments) (at this time, anticipating return to [facility] with HEP) Plan Plan Narrative pt to be seen 1-2x/day during acute care stay Therapist Information License # [id number] Patient status at end of treatment/response to treatment: Patient's response to evaluation today was good. Patient shows fair understanding of education given by therapist this date. Reviewed patient's Rehabilitation Plan, including any physician restrictions in place, with patient, and patient notes understanding and agreement with this plan, as well as no further questions for therapist at this time. Following treatment, patient is positioned sitting up in bedside chair; Call button, as well as room and/or personal phone in reach; Family in room with patient Patient's nurse updated on patient's performance with therapy after session (or, if not able to verbally update, reason): Yes Transfer of Care: Ongoing supervision of Plan of Care and treatment of this patient is transferred to [facility] Inpatient Physical Therapist following this evaluation. Dixie Alexander, PT, DPT #[id number] Time in: 836 AM Time out: 900 AM Billable time: 24 min Charges: Eval (low complexity) 1@24min Current anticipated discharge recommendation: anticipate pt to return to [facility] with HEP Patient demonstrates functional limitation in mobility: walking and moving around at CK 40-60 % impairment as evidenced by [facility]. Anticipated functional limitation status at discharge is CI 1-20 %. 01/07/2018 1:33 PM in this encounter* Damaris Yang LISW - 03/01/2019 10:27 AM EST DISCHARGE PLAN PROGRESS NOTE Date: 03/01/2019 Time: 10:27 AM Patient Name: Fahad Bernabe Date of : 1990 Sex: Male The patient is discharged today back to [facility]. Called the facility and spoke with Emilia. She said [facility]. Faxed the referral and day of discharge bundle to the facility. Please call report to [phone]. Information faxed to [phone]. Patient's mother plans to transport the patient. Case closed at discharge. [facility] Disposition D/C Disposition: Another Health Care Institution Not Defined([facility] care facility.) Agency/Destination: ([facility]) Transportation Type: Auto(Mother, Edison to transport [phone]) Reason for Choice: Currently with agency Anticipated Discharge Plan Anticipated HME: Undetermined * Damaris Yang LISW - 02/28/2019 3:30 PM EST DISCHARGE PLAN PROGRESS NOTE Date: 02/28/2019 Time: 3:31 PM Patient Name: Fahad Bernabe Date of : 1990 Sex: Male Returned a call to [facility] [phone]. Discussed that the plan was to discharge thepatient back to their facility tomorrow. [facility] Disposition D/C Disposition: Another Health Care Institution Not Defined([facility] facility.) Agency/Destination: ([facility]) Transportation Type: Auto(Mother, Edison to transport [phone]) Reason for Choice: Currently with agency Anticipated Discharge Plan Anticipated HME: Undetermined * Idalia Sims MD - 02/28/2019 1:32 PM EST [facility] Medicine Inpatient Follow-up 02/28/2019 Idalia Sims MD [facility] Patient: Fahad Bernabe Date of : 1990 (28 y.o.) PCP: Iftikhar Kemp, DO ASSESSMENT/PLAN: Fahad Bernabe 28 y.o. male presented with complains of Active Problems: Respiratory failure (HCC) Acute metabolic encephalopathy Aspiration pneumonia Acute on chronic hypoxic hypercapnic respiratory failure Moderate to severe pulmonary hypertension History of Down syndrome Sleep apnea PLAN: 1. Acute Respiratory Failure with hypercapnia: Continue Bipap as tolerated. Patient is more alert and awake today Consult pulmonology, echocardiogram shows moderate to severe pulmonary hypertension Chest x-ray results reviewed 1. Mild diffuse interstitial edema and/or mild inflammatory infectious pneumonitis. Correlate clinically. 2. Mild prominent cardiac silhouette slightly accentuated due to patient rotation to the left. 3. No acute osseous abnormality Start patient on IV Lasix, continue aggressive diuresis strict I's and O's daily weights 2. NARINDER: BIPAP as noted 3. CAP: Probably secondary to aspiration Continue Azithromax and will dc ceftriaxone and start patient on augmentin pulm hygiene Continue to monitor 4. Hypothyroidism: on synthroid. 5. Acute metabolic encephalopathy : Patient becoming more alert. unsure if any of his medications would contribute to his lethargy. Depakote and lithium level are slightly below normal. Appreciate neurology input 6. Dysphagia: MBS done. Patient noted to have mild aspiration with thin liquids, likely secondary to patient eating and drinking his food fast Speech recommends that patient drinks small portions eats slowly and small portions Follow aspiration precautions POSSIBLE DC TO ECF tmrw SUBJECTIVE: Patient's mother at bedside. Patient at his baseline Discuss plan of care with patient's mother. All other systems reviewed and negative other than noted above. OBJECTIVE: Physical Examination: BP 90/66 Pulse 82 Temp 97.5 F (36.4 C) (Oral) Resp 12 Ht 4' 9 Wt 93.8 kg (206 lb 14.4 oz) SpO2 100% BMI 44.77 kg/m General Appearance: Alert, well appearing, and in no acute distress. HEENT: Head - Normocephalic, atraumatic. Eyes - GROVER bilaterally and EOMI. Ears - normal external appearance, hearing intact. Nose - normal, no erythema. Throat - mucous membranes moist, pharynx without lesions. Neck: Supple, trachea midline. Cardiovascular: S1, S2 normal. No murmurs, rubs, clicks or gallops appreciated. No pedal edema. Respiratory: Lungs clear to auscultation, no wheezes, rales or rhonchi heard. Abdomen: Soft, non-tender, normal bowel sounds, non-distended, no masses or organomegaly appreciated. Neurological: Grossly normal motor and sensory exam. No focal deficits. Musculoskeletal: No joint tenderness, deformity or swelling. Skin: Normal coloration and turgor. No rashes. Psych: Alert, oriented x 3. Normal mood and affect. CURRENT MEDICATIONS: amoxicillin-clavulanate 1 tablet Oral Q12H RASHEEDA azithromycin 500 mg Intravenous Q24H carBAMazepine 400 mg Oral BID chlorproMAZINE 150 mg Oral Nightly chlorproMAZINE 25 mg Oral BID cloNIDine HCl 0.2 mg Oral TID divalproex 1,000 mg Oral at bedtime divalproex 250 mg Oral BID divalproex 500 mg Oral BID enoxaparin (LOVENOX) injection 40 mg Subcutaneous BID famotidine 20 mg Oral Daily furosemide 20 mg Intravenous BID gabapentin 100 mg Oral TID guaiFENesin 600 mg Oral BID ipratropium-albuterol 3 mL Inhalation 4x daily levothyroxine 150 mcg Oral Daily lithium 300 mg Oral Nightly LORazepam 2 mg Oral Nightly montelukast 10 mg Oral Nightly polyethylene glycol 17 g Oral Daily risperiDONE 1 mg Oral TID senna-docusate 1 tablet Oral BID vilazodone 30 mg Oral Daily Results/Medications Reviewed 02/28/19 1:52 PM: Results from last 7 days Lab Units 02/28/19 0550 02/27/19 1028 02/24/19 0636 SODIUM mmol/L 141 144 143 POTASSIUM mmol/L 4.1 4.0 4.3 CHLORIDE mmol/L 99 101 106 BUN mg/dL 27* 24 12 CREATININE mg/dL 1.54* 1.54* 1.26 GLUCOSE mg/dL 95 104* 99 CALCIUM mg/dL 9.2 9.2 8.8 Results from last 7 days Lab Units 02/28/19 0550 02/25/19 1438 02/24/19 0933 02/24/19 0636 02/23/19 1434 WBC K/mcL 6.20 -- -- 5.90 -- 10.95 HGB g/dL 13.1* -- -- 11.8* -- 10.9* HEMOGLOBIN BG g/dL -- 12.1* 12.1* -- < > -- POC HEMOGLOBIN -- -- -- -- < > -- HEMATOCRIT, CALCULATED % -- 37.2* 37.1* -- < > -- HCT % 41.4 -- -- 38.2* -- 35.1* HEMATOCRITPOC -- -- -- -- < > -- PLT K/mcL 383 -- -- 233 -- 241 < > = values in this interval not displayed. Results from last 7 days Lab Units 02/23/19 1434 INR 1.1 Results from last 7 days Lab Units 02/24/19 0636 02/23/19 1434 ALK PHOS U/L 80 73 BILIRUBIN TOTAL mg/dL 0.2 0.1 BILIRUBIN DIRECT mg/dL -- <0.1 TOTAL PROTEIN g/dL 7.8 7.4 ALTR U/L 20 21 AST U/L 12 18 CULTURES: Reviewed 1:52 PM IMAGING: Reviewed 1:52 PM * Idalia Sims MD - 02/27/2019 3:54 PM EST [facility] Medicine Inpatient Follow-up 02/27/2019 Idalia Sims MD [facility] Patient: Fahad Bernabe Date of : 1990 (28 y.o.) PCP: Iftikhar Kemp DO ASSESSMENT/PLAN: Fahad Bernabe 28 y.o. male presented with complains of Active Problems: Respiratory failure (HCC) Acute metabolic encephalopathy Aspiration pneumonia Acute on chronic hypoxic hypercapnic respiratory failure Moderate to severe pulmonary hypertension History of Down syndrome Sleep apnea PLAN: 1. Acute Respiratory Failure with hypercapnia: Continue Bipap as tolerated. Patient is more alert and awake today Consult pulmonology, echocardiogram shows moderate to severe pulmonary hypertension Chest x-ray results reviewed 1. Mild diffuse interstitial edema and/or mild inflammatory infectious pneumonitis. Correlate clinically. 2. Mild prominent cardiac silhouette slightly accentuated due to patient rotation to the left. 3. No acute osseous abnormality Start patient on IV Lasix, continue aggressive diuresis strict I's and O's daily weights 2. NARINDER: BIPAP as noted 3. CAP: Probably secondary to aspiration Continue Azithromax and will dc ceftriaxone and start patient on augmentin pulm hygiene Continue to monitor 4. Hypothyroidism: on synthroid. 5. Acute metabolic encephalopathy : Patient becoming more alert. unsure if any of his medications would contribute to his lethargy. Depakote and lithium level are slightly below normal. Appreciate neurology input 6. Dysphagia: MBS done. Patient noted to have mild aspiration with thin liquids, likely secondary to patient eating and drinking his food fast Speech recommends that patient drinks small portions eats slowly and small portions Follow aspiration precautions SUBJECTIVE: Patient's mother at bedside. Patient is still lethargic, but follows command more today. Discuss plan of care with patient's mother. All other systems reviewed and negative other than noted above. OBJECTIVE: Physical Examination: BP 138/72 (BP Location: Left arm, Patient Position: Lying) Pulse 99 Temp 98.3 F (36.8 C) (Oral) Resp 18 Ht 4' 9 Wt 94.6 kg (208 lb 8.9 oz) Comment: standing weight SpO2 97% BMI 45.13 kg/m General Appearance: Alert, well appearing, and in no acute distress. HEENT: Head - Normocephalic, atraumatic. Eyes - GROVER bilaterally and EOMI. Ears - normal external appearance, hearing intact. Nose - normal, no erythema. Throat - mucous membranes moist, pharynx without lesions. Neck: Supple, trachea midline. Cardiovascular: S1, S2 normal. No murmurs, rubs, clicks or gallops appreciated. No pedal edema. Respiratory: Lungs clear to auscultation, no wheezes, rales or rhonchi heard. Abdomen: Soft, non-tender, normal bowel sounds, non-distended, no masses or organomegaly appreciated. Neurological: Grossly normal motor and sensory exam. No focal deficits. Musculoskeletal: No joint tenderness, deformity or swelling. Skin: Normal coloration and turgor. No rashes. Psych: Alert, oriented x 3. Normal mood and affect. CURRENT MEDICATIONS: amoxicillin-clavulanate 1 tablet Oral Q12H RASHEEDA azithromycin 500 mg Intravenous Q24H carBAMazepine 400 mg Oral BID chlorproMAZINE 150 mg Oral Nightly chlorproMAZINE 25 mg Oral BID cloNIDine HCl 0.2 mg Oral TID divalproex 1,000 mg Oral at bedtime divalproex 250 mg Oral BID divalproex 500 mg Oral BID enoxaparin (LOVENOX) injection 40 mg Subcutaneous BID famotidine 20 mg Oral Daily furosemide 20 mg Intravenous BID gabapentin 100 mg Oral TID guaiFENesin 600 mg Oral BID ipratropium-albuterol 3 mL Inhalation 4x daily levothyroxine 150 mcg Oral Daily lithium 300 mg Oral Nightly LORazepam 2 mg Oral Nightly montelukast 10 mg Oral Nightly polyethylene glycol 17 g Oral Daily risperiDONE 1 mg Oral TID senna-docusate 1 tablet Oral BID vilazodone 30 mg Oral Daily Results/Medications Reviewed 02/27/19 3:57 PM: Results from last 7 days Lab Units 02/27/19 1028 02/24/19 0636 02/23/19 1434 SODIUM mmol/L 144 143 143 POTASSIUM mmol/L 4.0 4.3 4.8 CHLORIDE mmol/L 101 106 108 BUN mg/dL 24 12 15 CREATININE mg/dL 1.54* 1.26 1.20 GLUCOSE mg/dL 104* 99 104* CALCIUM mg/dL 9.2 8.8 8.3* Results from last 7 days Lab Units 02/25/19 1438 02/24/19 0933 02/24/19 0636 02/23/19 1434 WBC K/mcL -- -- 5.90 -- 10.95 HGB g/dL -- -- 11.8* -- 10.9* HEMOGLOBIN BG g/dL 12.1* 12.1* -- < > -- POC HEMOGLOBIN -- -- -- < > -- HEMATOCRIT, CALCULATED % 37.2* 37.1* -- < > -- HCT % -- -- 38.2* -- 35.1* HEMATOCRITPOC -- -- -- < > -- PLT K/mcL -- -- 233 -- 241 < > = values in this interval not displayed. Results from last 7 days Lab Units 02/23/19 1434 INR 1.1 Results from last 7 days Lab Units 02/24/19 0636 02/23/19 1434 ALK PHOS U/L 80 73 BILIRUBIN TOTAL mg/dL 0.2 0.1 BILIRUBIN DIRECT mg/dL -- <0.1 TOTAL PROTEIN g/dL 7.8 7.4 ALTR U/L 20 21 AST U/L 12 18 CULTURES: Reviewed 3:57 PM IMAGING: Reviewed 3:57 PM * Patricia Lema, KIESELGUHR REGENERATOR OPERATOR - 02/27/2019 8:50 AM EST Speech Pathology DAILY NOTE Recommended Diet: PO Recommendations: Regular, Thin liquid (cardiac), volume control cup/Provale cup, meds one at a time, no straws, 1:1 supervision, consider using maroon spoon for bolus size control Barriers Returning to Prior Level of Function: Body Structure and Function: Neurologic impairment, Cardiopulmonary impairment Explain Impairments: recurring pulmonary compromise, Down's Syndrome, hx bipolar, ADHD, OCD Activities and Participation: Balance limitation and fall risk, Executive function limitation Explain Limitations: elevated fall risk Environmental Factors: Home situation, Family/caregiver support Explain Environmental Factors: lives in [facility] in [place], mother very supportive - pt stays with mother every other weekend Personal Factors: Awareness of own capacity and performance Explain Personal Factors: developmental delays and cognitive deficits, impulsivity Skilled Therapy Needs: Skilled Therapy Needs: Anticipate Resolution of Current Assessment Limitations Including: (acute pulmonary deficit) Are Skilled Therapy Services Needed After Discharge: Yes Intensity of Skilled Therapy: 2-3 days per week Anticipated Duration of Skilled Therapy: Duration 10 - 30 days Recommendations: Recommendations PO Recommendations: Regular, Thin liquid Compensation Strategies: Vocal quality check Postures: Sit 90 degrees Food Presentation: Small bites(consider maroon spoons for bolus control) Liquid Presentation: Small sips(Provale Cup for volume control) Medication Presentation: Whole with thins(one at a time) Amount of Supervision: Nursing staff supervision Treatment Techniques: Diet tolerance, Train feed strategies Further Recommendations: Assess for diet tolerance, Re-evaluate diet changes KIESELGUHR REGENERATOR OPERATOR Caregiver Readiness Working toward discharge home: Yes KIESELGUHR REGENERATOR OPERATOR Caregiver Training: Ongoing - Follow up required Who was trained?: Mother Provided training for: Safe swallowing strategies - follow up required Caregiver response to training: Verbalizes understanding Cognitive Status: Pt with history of trisomy 21 Down syndrome per Neuro's note. Subjective Pt was seated upright in a chair holding Provale cup; mother was at bedside and reported pt with reduced appetite with breakfast today, which is unusual; stated pt with ongoing, dry cough secondary to pneumonia. Pt responded to Y/N questions from his mother. Objective Pt declined trials of solids from breakfast tray, but was eventually agreeable to trial shortbread cookie which his mother broke into a small piece and fed to the pt; mastication appeared slow; pt with spontaneous, dry cough while pieces of chewed cookie were in his oral cavity; pt with spontaneousliquid rinse from Provale cup followed by throat clear x1. Pt declined additional solid po trials. Assessment Limited session secondary to reduced appetite/participation. Pt with recent MBS on 02/25/2019 revealing mild oropharyngeal deficits, trace/shallow penetration with continuous cup presentation of thin liquid. Pt benefits from Provale cup to promote controlled volume of thin liquid; mother demonstrates understanding of swallow strategies (use of Provale cup to control bolus volume, small bites) to promote optimal oral intake without pulmonary compromise. Plan Continue w/POC for ongoing caregiver training of swallowing strategies including use of maroon spoons to promote bolus size control. Past Medical History: Diagnosis Date ADHD Bipolar 1 disorder (HCC) Depression Disease of thyroid gland Down's syndrome OCD (Obsessive Compulsive Disorder) Seizures (HCC) Sleep apnea Past Surgical History: Procedure Laterality Date CARDIAC SURGERY As an For complete objective data, detailed plan of care, and education refer to: Speech Comm/COG flow sheets, Bedside Study Evaluation flow sheets, MBS-FEES Navigator, as well as patient Plan of Care and Education documentation. This note stands as the current Discharge Summary upon patient discharge from the hospital or completion of Speech Pathology Plan of Care * Ivory Bhatia LISW - 02/26/2019 4:20 PM EST COMPLEX DISCHARGE Date: 02/26/2019 Time: 4:20 PM Patient Name: Fahad Bernabe Date of : 1990 Sex: Male Due to speech therapy recommendations this social welfare research worker contacted Kayleigh at [place]. Carmela reports that she spoke with Lina at [facility] in speech therapy about patient needs.Carmela states that a speech therapist visits [place] weekly and that she is aware that patient would need to be seen. Patient's step father was informed of need for speech therapy as patient's mother (reported guardian) is not available at this time. Patient's mother is home resting and taking a shower, per step father. Patient Information Primary Caregiver: Other (Comment)([facility] - [phone]) Discharge Planning Living Arrangements: Facility Support Systems: Parent, client hr manager/social welfare research worker, Other (Comment)(Mother Edison reports that she is guardian.) Assistance Needed: stand by Type of Residence: [facility] Care Facility Name: ([facility].) Prior to Admission Home Care Services: No Patient expects to be discharged to:: [facility]. Mother Edison to transport. Does the patient need discharge transport arranged?: No Current Home Equipment: None, Oxygen Anticipated HME: Undetermined Anticipated Discharge Plan Anticipated HME: Undetermined [facility] Disposition D/C Disposition: Another Health Care Institution Not Defined([facility] care facility.) Agency/Destination: ([facility]) Transportation Type: Auto(Mother, Edison to transport [phone]) Reason for Choice: Currently with agency * Idalia Sims MD - 02/26/2019 2:01 PM EST [facility] Medicine Inpatient Follow-up 02/26/2019 Idalia Sims MD [facility] Patient: Fahad Bernabe Date of : 1990 (28 y.o.) PCP: Iftikhar Kemp DO ASSESSMENT/PLAN: Fahad Bernabe 28 y.o. male presented with complains of Active Problems: Respiratory failure (HCC) Aspiration pneumonia Acute on chronic hypoxic hypercapnic respiratory failure Moderate to severe pulmonary hypertension History of Down syndrome Sleep apnea PLAN: 1. Acute Respiratory Failure with hypercapnia: Continue Bipap as tolerated. Patient is more alert and awake today Consult pulmonology, echocardiogram shows moderate to severe pulmonary hypertension Chest x-ray results reviewed 1. Mild diffuse interstitial edema and/or mild inflammatory infectious pneumonitis. Correlate clinically. 2. Mild prominent cardiac silhouette slightly accentuated due to patient rotation to the left. 3. No acute osseous abnormality Start patient on IV Lasix 2. NARINDER: BIPAP as noted 3. CAP: Probably secondary to aspiration Continue Azithromax and will dc ceftriaxone and start patient on augmentin pulm hygiene Continue to monitor 4. Hypothyroidism: on synthroid. 5. Acute metabolic encephalopathy : Patient becoming more alert. unsure if any of his medications would contribute to his lethargy. Depakote and lithium level are slightly below normal. 6. Dysphagia: MBS done. Patient noted to have mild aspiration with thin liquids, likely secondary to patient eating and drinking his food fast Speech recommends that patient drinks small portions eats slowly and small portions Follow aspiration precautions SUBJECTIVE: Patient's mother at bedside. Patient is still lethargic, but follows command more today. Discuss plan of care with patient's mother. All other systems reviewed and negative other than noted above. OBJECTIVE: Physical Examination: BP 131/84 (BP Location: Right arm, Patient Position: Sitting) Pulse 97 Temp 97.8 F (36.6 C) (Oral) Resp 16 Ht 4' 9 Wt 119.9 kg (264 lb 5.3 oz) SpO2 95% BMI 57.20 kg/m General Appearance: Alert, well appearing, and in no acute distress. HEENT: Head - Normocephalic, atraumatic. Eyes - GROVER bilaterally and EOMI. Ears - normal external appearance, hearing intact. Nose - normal, no erythema. Throat - mucous membranes moist, pharynx without lesions. Neck: Supple, trachea midline. Cardiovascular: S1, S2 normal. No murmurs, rubs, clicks or gallops appreciated. No pedal edema. Respiratory: Lungs clear to auscultation, no wheezes, rales or rhonchi heard. Abdomen: Soft, non-tender, normal bowel sounds, non-distended, no masses or organomegaly appreciated. Neurological: Grossly normal motor and sensory exam. No focal deficits. Musculoskeletal: No joint tenderness, deformity or swelling. Skin: Normal coloration and turgor. No rashes. Psych: Alert, oriented x 3. Normal mood and affect. CURRENT MEDICATIONS: amoxicillin-clavulanate 1 tablet Oral Q12H RASHEEDA azithromycin 500 mg Intravenous Q24H carBAMazepine 400 mg Oral BID chlorproMAZINE 150 mg Oral Nightly chlorproMAZINE 25 mg Oral BID cloNIDine HCl 0.2 mg Oral TID divalproex 1,000 mg Oral at bedtime divalproex 250 mg Oral BID divalproex 500 mg Oral BID enoxaparin (LOVENOX) injection 40 mg Subcutaneous BID famotidine 20 mg Oral Daily furosemide 20 mg Intravenous BID furosemide 20 mg Intravenous Once gabapentin 100 mg Oral TID guaiFENesin 600 mg Oral BID ipratropium-albuterol 3 mL Inhalation 4x daily levothyroxine 150 mcg Oral Daily lithium 300 mg Oral Nightly LORazepam 2 mg Oral Nightly montelukast 10 mg Oral Nightly polyethylene glycol 17 g Oral Daily risperiDONE 1 mg Oral TID senna-docusate 1 tablet Oral BID vilazodone 30 mg Oral Daily Results/Medications Reviewed 02/26/19 2:01 PM: Results from last 7 days Lab Units 02/24/19 0636 02/23/19 1434 SODIUM mmol/L 143 143 POTASSIUM mmol/L 4.3 4.8 CHLORIDE mmol/L 106 108 BUN mg/dL 12 15 CREATININE mg/dL 1.26 1.20 GLUCOSE mg/dL 99 104* CALCIUM mg/dL 8.8 8.3* Results from last 7 days Lab Units 02/25/19 1438 02/24/19 0933 02/24/19 0636 02/23/19 1434 WBC K/mcL -- -- 5.90 -- 10.95 HGB g/dL -- -- 11.8* -- 10.9* HEMOGLOBIN BG g/dL 12.1* 12.1* -- < > -- POC HEMOGLOBIN -- -- -- < > -- HEMATOCRIT, CALCULATED % 37.2* 37.1* -- < > -- HCT % -- -- 38.2* -- 35.1* HEMATOCRITPOC -- -- -- < > -- PLT K/mcL -- -- 233 -- 241 < > = values in this interval not displayed. Results from last 7 days Lab Units 02/23/19 1434 INR 1.1 Results from last 7 days Lab Units 02/24/19 0636 02/23/19 1434 ALK PHOS U/L 80 73 BILIRUBIN TOTAL mg/dL 0.2 0.1 BILIRUBIN DIRECT mg/dL -- <0.1 TOTAL PROTEIN g/dL 7.8 7.4 ALTR U/L 20 21 AST U/L 12 18 CULTURES: Reviewed 2:01 PM IMAGING: Reviewed 2:01 PM * Eda Arriaga, KIESELGUHR REGENERATOR OPERATOR - 02/26/2019 10:59 AM EST Speech Pathology DAILY NOTE Recommended Diet: Regular consistency (cardiac), thin liquids with volume control cup, meds one at a time, no straws,1:1 supervision Barriers Returning to Prior Level of Function: Body Structure and Function: Neurologic impairment, Cardiopulmonary impairment Explain Impairments: recurring pulmonary compromise, Down's Syndrome, hx bipolar, ADHD, OCD Activities and Participation: Balance limitation and fall risk, Executive function limitation Explain Limitations: elevated fall risk Environmental Factors: Home situation, Family/caregiver support Explain Environmental Factors: lives in [facility] in [place], mother very supportive - pt stays with mother every other weekend Personal Factors: Awareness of own capacity and performance Explain Personal Factors: developmental delays and cognitive deficits, impulsivity Skilled Therapy Needs: dysphagia intervention for pt/caregiver training Recommendations: Provale Cup for volume control, small utensils for bolus portion mgmt KIESELGUHR REGENERATOR OPERATOR Caregiver Readiness Working toward discharge home: Yes KIESELGUHR REGENERATOR OPERATOR Caregiver Training: Ongoing - Follow up required Who was trained?: Mother Provided training for: Safe swallowing strategies - follow up required Caregiver response to training: Verbalizes understanding Cognitive Status: impaired (baseline/developmental) Subjective Contacted per RN this am as hospitalist with questions re: diet level and concern for aspiration. Spoke with Dr. Pichardo and reviewed MBS results and concern primarily for volume of intake, pt probable refusal of modified diet (as witnessed during trials of altereed consistencies during both bedside and MBS - risking intake/nutrition and hydration if altered). Physician in agreement with attempt at mechanical management of bolus size via small utencils and volume control cup (Provale Cup). Objective Ongoing assessment and pt/mother education re: dysphagia and aspiration risk factors/safe swallow strategies Assessment Pt seen at bedside with mother present. Discussed conversation with physician and plan of care. Provided Provale cup with verbal and demonstrative training for use. Pt was excited about using and very open to trialing with t hin liquids. Benefitted from verbal and tactile assistance, making a game of tipping cup up and down. Was able to consume 2 oz without overt difficulty (mechanics and swallow) prior to requesting straw be placed in lid. Pt became mildly agitated due to straw not fitting in lid (mother is aware of recommendation for no straws to reduce bolus size and optimize control).Stated I put you in long-term . With emotional support, pt behaviors did not escalate and he was agreeab le to drink via sips from cup. Plan Continue per current plan of care, RN and kitchen aware of Provale cup in room and encouraged use throughout stay. Past Medical History: Diagnosis Date ADHD Bipolar 1 disorder (HCC) Depression Disease of thyroid gland Down's syndrome OCD (Obsessive Compulsive Disorder) Seizures (HCC) Sleep apnea Past Surgical History: Procedure Laterality Date CARDIAC SURGERY As an For complete objective data, detailed plan of care, and education refer to: Speech Comm/COG flow sheets, Bedside Study Evaluation flow sheets, MBS-FEES Navigator, as well as patient Plan of Care and Education documentation. This note stands as the current Discharge Summary upon patient discharge from the hospital or completion of Speech Pathology Plan of Care * Stuart Mcgrath MD - 02/25/2019 1:00 PM EST [facility] Medicine Inpatient Follow-up 02/25/2019 Stuart Mcgrath MD [facility] Patient: Fahad Bernabe Date of : 1990 (28 y.o.) PCP: Iftikhar Kemp, ASSESSMENT/PLAN: Fahad Bernabe 28 y.o. male presented with complains of Active Problems: Respiratory failure (HCC) PLAN: Acute Respiratory Failure with hypercapnia: Check ABG today Continue Bipap as tolerated. Patient is still lethargic. Will continue to correct CO2 level, if this improves and patient continues to be lethargic, will evaluate other source like medication use. 2. NARINDER: BIPAP as noted 3. CAP: continue current abx. Azithromax and Ceftriaxone pulm hygiene Continue to monitor 4. Hypothyroidism: on synthroid. Depakote and lithium level are slightly below normal. Dysphagia: MBS done Will await offical report Pulm edema: lungs are clear to auscultation Will await final Echo report. SUBJECTIVE: Patient's mother at bedside. Patient is still lethargic, but follows command more today. Discuss plan of care with patient's mother. All other systems reviewed and negative other than noted above. OBJECTIVE: Physical Examination: BP 125/83 (BP Location: Right arm, Patient Position: Sitting) Pulse 74 Temp 97.8 F (36.6 C) (Oral) Resp 15 Ht 4' 9 Wt 119.9 kg (264 lb 5.3 oz) SpO2 96% BMI 57.20 kg/m General Appearance: Alert, well appearing, and in no acute distress. HEENT: Head - Normocephalic, atraumatic. Eyes - GROVER bilaterally and EOMI. Ears - normal external appearance, hearing intact. Nose - normal, no erythema. Throat - mucous membranes moist, pharynx without lesions. Neck: Supple, trachea midline. Cardiovascular: S1, S2 normal. No murmurs, rubs, clicks or gallops appreciated. No pedal edema. Respiratory: Lungs clear to auscultation, no wheezes, rales or rhonchi heard. Abdomen: Soft, non-tender, normal bowel sounds, non-distended, no masses or organomegaly appreciated. Neurological: Grossly normal motor and sensory exam. No focal deficits. Musculoskeletal: No joint tenderness, deformity or swelling. Skin: Normal coloration and turgor. No rashes. Psych: Alert, oriented x 3. Normal mood and affect. CURRENT MEDICATIONS: azithromycin 500 mg Intravenous Q24H carBAMazepine 400 mg Oral BID cefTRIAXone (ROCEPHIN) IVPB 1,000 mg Intravenous Q24H chlorproMAZINE 150 mg Oral Nightly chlorproMAZINE 25 mg Oral BID cloNIDine HCl 0.2 mg Oral TID divalproex 1,000 mg Oral at bedtime divalproex 250 mg Oral BID divalproex 500 mg Oral BID enoxaparin (LOVENOX) injection 40 mg Subcutaneous BID famotidine 20 mg Oral Daily furosemide 20 mg Intravenous Daily gabapentin 100 mg Oral TID guaiFENesin 600 mg Oral BID ipratropium-albuterol 3 mL Inhalation 4x daily levothyroxine 150 mcg Oral Daily lithium 300 mg Oral Nightly LORazepam 2 mg Oral Nightly montelukast 10 mg Oral Nightly risperiDONE 1 mg Oral TID vilazodone 30 mg Oral Daily Results/Medications Reviewed 02/25/19 1:01 PM: Results from last 7 days Lab Units 02/24/19 0636 02/23/19 1434 SODIUM mmol/L 143 143 POTASSIUM mmol/L 4.3 4.8 CHLORIDE mmol/L 106 108 BUN mg/dL 12 15 CREATININE mg/dL 1.26 1.20 GLUCOSE mg/dL 99 104* CALCIUM mg/dL 8.8 8.3* Results from last 7 days Lab Units 02/24/19 0933 02/24/19 0636 02/23/19 2154 02/23/19 1434 WBC K/mcL -- 5.90 -- -- 10.95 HGB g/dL -- 11.8* -- -- 10.9* HEMOGLOBIN BG g/dL 12.1* -- 11.4* -- -- POC HEMOGLOBIN -- -- -- < > -- HEMATOCRIT, CALCULATED % 37.1* -- 35.0* -- -- HCT % -- 38.2* -- -- 35.1* HEMATOCRITPOC -- -- -- < > -- PLT K/mcL -- 233 -- -- 241 < > = values in this interval not displayed. Results from last 7 days Lab Units 02/23/19 1434 INR 1.1 Results from last 7 days Lab Units 02/24/19 0636 02/23/19 1434 ALK PHOS U/L 80 73 BILIRUBIN TOTAL mg/dL 0.2 0.1 BILIRUBIN DIRECT mg/dL -- <0.1 TOTAL PROTEIN g/dL 7.8 7.4 ALTR U/L 20 21 AST U/L 12 18 CULTURES: Reviewed 1:01 PM IMAGING: Reviewed 1:01 PM * Stuart Mcgrath MD - 02/24/2019 8:12 AM EST [facility] Medicine Inpatient Follow-up 02/24/2019 Stuart Mcgrath MD [facility] Patient: Fahad Bernabe Date of : 1990 (28 y.o.) PCP: Iftikhar Kemp DO ASSESSMENT/PLAN: Fahad Bernabe 28 y.o. male presented with complains of lethargy and obtunded. He was noted to have PNA and Respiratory failure with hypercapnea. Active Problems: Respiratory failure (HCC) PLAN: Acute respiratory Failure with Hypercapnea: Seems to have improved a little bit Patient is still lethargic Will continue to monitor Will repeat ABG and see if the improvement is sustained. May need Pulm eval,. 2. PNA/Pulm Edema: Continue current lasix Continue IV abx Will consult speech to evaluate patient for concern for aspiration This is being treated as CAP 3. Encephalopathy due to retained CO2: CPAP or Bipap as tolerated Will continue to monitor Will check depakote level to see if this is contributing to encephalopathy 4. Down's Syndrome: 5. Hypothyroidism: On synthroid. Continue to monitor 6. Hx of Seizure: currently on medication Continue home meds Check Depakote levels as mentioned above. 7. Bipolar 1: continue home meds SUBJECTIVE: Patient more arouse able, but falls back to sleep easily. Review of ABG showed some improvement since admission. Will continue to follow ABG. All other systems reviewed and negative other than noted above. OBJECTIVE: Physical Examination: BP 125/71 Pulse 97 Temp 98.7 F (37.1 C) (Oral) Resp 16 Ht 4' 9 Wt 119.9 kg (264 lb 5.3 oz) SpO2 97% BMI 57.20 kg/m General Appearance: Alert, well appearing, and in no acute distress. HEENT: Head - Normocephalic, atraumatic. Eyes - GROVER bilaterally and EOMI. Ears - normal external appearance, hearing intact. Nose - normal, no erythema. Throat - mucous membranes moist, pharynx without lesions. Neck: Thick Neck mass Cardiovascular: S1, S2 normal. No murmurs, rubs, clicks or gallops appreciated. No pedal edema. Respiratory: Lungs clear to auscultation, no wheezes, rales or rhonchi heard. Abdomen: Soft, non-tender, normal bowel sounds, non-distended, no masses or organomegaly appreciated. Neurological: Grossly normal motor and sensory exam. No focal deficits. Musculoskeletal: No joint tenderness, deformity or swelling. Skin: Normal coloration and turgor. No rashes. Psych: lethargic, but arousable. . CURRENT MEDICATIONS: azithromycin 500 mg Intravenous Q24H carBAMazepine 400 mg Oral BID cefTRIAXone (ROCEPHIN) IVPB 1,000 mg Intravenous Q24H chlorproMAZINE 150 mg Oral Nightly chlorproMAZINE 25 mg Oral BID cloNIDine HCl 0.2 mg Oral TID divalproex 1,000 mg Oral at bedtime divalproex 250 mg Oral BID divalproex 500 mg Oral BID enoxaparin (LOVENOX) injection 40 mg Subcutaneous BID famotidine 20 mg Oral Daily furosemide 20 mg Intravenous Daily gabapentin 100 mg Oral TID guaiFENesin 600 mg Oral BID ipratropium-albuterol 3 mL Inhalation 4x daily levothyroxine 150 mcg Oral Daily lithium 300 mg Oral Nightly LORazepam 2 mg Oral Nightly montelukast 10 mg Oral Nightly risperiDONE 1 mg Oral TID vilazodone 30 mg Oral Daily Results/Medications Reviewed 02/24/19 8:12 AM: Results from last 7 days Lab Units 02/24/19 0636 02/23/19 1434 SODIUM mmol/L 143 143 POTASSIUM mmol/L 4.3 4.8 CHLORIDE mmol/L 106 108 BUN mg/dL 12 15 CREATININE mg/dL 1.26 1.20 GLUCOSE mg/dL 99 104* CALCIUM mg/dL 8.8 8.3* Results from last 7 days Lab Units 02/24/19 0636 02/23/19 2154 02/23/19 1623 02/23/19 1434 WBC K/mcL 5.90 -- -- 10.95 HGB g/dL 11.8* -- -- 10.9* HEMOGLOBIN BG g/dL -- 11.4* -- -- POC HEMOGLOBIN g/dL -- -- 11.6* -- HEMATOCRIT, CALCULATED % -- 35.0* -- -- HCT % 38.2* -- -- 35.1* HEMATOCRITPOC % -- -- 34* -- PLT K/mcL 233 -- -- 241 Results from last 7 days Lab Units 02/23/19 1434 INR 1.1 Results from last 7 days Lab Units 02/24/19 0636 02/23/19 1434 ALK PHOS U/L 80 73 BILIRUBIN TOTAL mg/dL 0.2 0.1 BILIRUBIN DIRECT mg/dL -- <0.1 TOTAL PROTEIN g/dL 7.8 7.4 ALTR U/L 20 21 AST U/L 12 18 CULTURES: Reviewed 8:12 AM IMAGING: Reviewed 8:12 AM documented in this encounter Assessments Diagnosis Pneumonia - Primary Pneumonia, organism unspecified Pneumonia due to organism Pneumonia due to other specified organism Down syndrome Down's syndrome Hypothyroidism, unspecified type Obesity: body mass index of 40.0-49.9 Seizure Other convulsions Leukocytosis Leukocytosis, unspecified Diagnosis Acute metabolic encephalopathy Respiratory failure (HCC) Acute respiratory failure Summary Purpose Family History No Family History Records Found Relationship Condition Age at Onset Recorded Date/T ester Not Specified Family history unobtainable Unknown Advance Directives No Advanced Directives Records FoundDocuments on File Type Date Recorded Patient Inspector Barrel Expl anation Advance Directives and Emmie villanueva Will 02/23/2019 3:14 PM Guardianship Papers 02/23/2019 3:14 PM Latest Code Status on File Code Status Date Activated Date Inactivated Comments Full Code - Unverified 02/23/2019 9:21 PM Documents on File Type Date Recorded Patient Inspector Barrel Expl anation Advance Directives and Livin g Will 02/23/2019 11:06 PM Guardianship Papers 02/23/2019 3:14 PM Latest Code Status on File Code Status Date Activated Date Inactivated Comments Full Code - Unverified 02/23/2019 9:21 PM Documents on File Type Date Recorded Patient Inspector Barrel Expl anation Advance Directives and Livin g Will 02/23/2019 11:06 PM Guardianship Papers 02/23/2019 3:14 PM Documents on File Type Date Recorded Patient Inspector Barrel Expl anation Advance Directives and Livin g Will 07/08/2020 11:06 PM Guardianship Papers 02/23/2019 3:14 PM Guardianship Papers 07/08/2020 12:00 AM Documents on File Type Date Recorded Patient Inspector Barrel Expl anation Advance Directives and Livin g Will 05/03/2021 12:31 AM Guardianship Papers 02/23/2019 3:14 PM Guardianship Papers 07/08/2020 12:00 AM Latest Code Status on File Code Status Date Activated Date Inactivated Comments Full Code 05/03/2021 12:29 AM 05/06/2021 7:05 PM Full Code - Unverified 02/23/2019 9:21 PM 05/02/2021 12: 30 PM Advance Directive Response Recorded Date/ Time Advance Directives No December 4:40pm Advance Directive Response Recorded Date/ Time Advance Directives No December 3:40pm Hospital Course * Idalia Sims MD - 03/01/2019 10:22 AM EST HOSPITALIST DISCHARGE SUMMARY Patient: Fahad Bernabe Account: [id number] Admitted: 02/23/2019 Discharge Date/Time: 03/01/2019 Clinical Summary FINAL DIAGNOSIS: Active Problems: Respiratory failure (HCC) Acute metabolic encephalopathy Aspiration pneumonia Acute on chronic hypoxic hypercapnic respiratory failure Moderate to severe pulmonary hypertension History of Down syndrome Sleep apnea Obesity hypoventilation syndrome REASON FOR HOSPITALIZATION AND ADMITTING DIAGNOSIS: No chief complaint on file. Hypercapnia respiratory failure, interstitial edema HOSPITAL COURSE: Fahad Bernabe 28 y.o. male with history of Down syndrome, ADHD, Depression, Hypothryoidism, OCD, Seizures, open heart surgery for childhood ASD/VSD, HTN, aspiration pneumonia, obstructive sleep apneaon CPAP for which he is nonadherent. Transferred to [place] for aspiration pneumonia and acute on chronic respiratory failure. Obesity Hypoventilation Syndrome - pt is ordered to be on 1800 calorie restricted diet at his facility which is not followed. Patient has gained weight over the past 2 years. - recommendation to follow calorie restricted diet and patient to lose at least 50# - if unable to comply with diet changes and weight loss, the next recommendation would be for tracheostomy per letterpress setter Obstructive Sleep Apnea - pt underwent sleep study one year ago and prescribed a CPAP but is not adherent with wearing nightly. Nursing facility needs to be instructed that he must wear the mask with all hours of sleep. - Patient may likely benefit from NIPPV via Bipap versus CPAP. - If unable unable to adhere to weight loss recommendations and nightly wearing of CPAP/Bipap then the recommendation would be to proceed with tracheostomy -Patient to follow-up with his letterpress setter as an outpatient Acute on Chronic Respiratory Failure - Pt on chronic 2lp per NC at night since last admission for pneumonia - presented with hypercarbia and hypoxia - continue Bipap with all hours of sleep, will likely benefit from Bipap as outpatient - Pt does show signs of fluid overload and pulmonary edema upon admission, would agressively diurese the patient. - Pt needs a sodium restricted diet, daily weights, and I/Os. Chronic Aspiration Pneumonia - pt with repeat occurrences of aspiration pneumonia - SLT following with recommendations - Concern for non-adherence once he returns to his facility, mother will discuss care - Again, if unable to comply with recommendations and continues to present with aspiration pneumonia the recommendation would be to proceed with a tracheostomy and tube feedings. Pulmonary Hypertension - Echo this admission with moderate to severe pulmonary hypertension with estimated RV systolic pressure 66 mmHg. - Secondary to OHS/NARINDER, chronic respiratory failure with hypercarbic and hypoxemia and fluid overload - Control HTN, continue lasix - Recommend treatment of associated conditions with at least 50# weight loss and nightly compliancewith NIPPV CONDITION AT DISCHARGE: Stable Physical Examination: Blood pressure 100/69, pulse 91, temperature 98.8 F (37.1 C), temperature source Oral, resp. rate 16, height 4' 9 , weight 93.4 kg (205 lb 14.6 oz), SpO2 100 %. General appearance: alert, cooperative, in no acute distress. Head/Neck: Head- normocephalic. Neck- supple, non-tender, without lymphadenopathy Eyes: No Scleral icterus or pallor; EOMI ENT: Trachea midline. Cardiovascular: regular rate and rhythm; normal S1, S2; no murmurs, rubs, clicks or gallops; No/+ peripheral edema. Respiratory: lungs clear to auscultation; without wheezes, rales or rhonchi. Abdomen: soft, non tender, non-distended; positive bowel sounds. Neurological: alert, oriented, normal speech; no focal findings or movement disorder noted. Musculoskeletal: no significant deformity noted. Skin: normal coloration, texture and turgor; no lesions or eruptions. Procedures: No orders of the defined types were placed in this encounter. Consults: Procedures Inpatient consult to Care Management Inpatient consult to Neurology Inpatient consult to Pulmonology Inpatient consult to IV Team Other Tests: Procedures Echocardiogram complete w contrast LAST LABS: Results from last 7 days Lab Units 03/01/19 0547 SODIUM mmol/L 141 POTASSIUM mmol/L 4.0 CHLORIDE mmol/L 98 BUN mg/dL 28* CREATININE mg/dL 1.56* GLUCOSE mg/dL 102* CALCIUM mg/dL 9.2 Results from last 7 days Lab Units 02/24/19 0636 02/23/19 1434 ALK PHOS U/L 80 73 BILIRUBIN TOTAL mg/dL 0.2 0.1 BILIRUBIN DIRECT mg/dL -- <0.1 TOTAL PROTEIN g/dL 7.8 7.4 ALTR U/L 20 21 AST U/L 12 18 Results from last 7 days Lab Units 02/23/19 1434 INR 1.1 Results from last 7 days Lab Units 03/01/19 0548 WBC K/mcL 6.72 HGB g/dL 13.2* HCT % 41.3 PLT K/mcL 355 Results from last 7 days Lab Units 02/24/19 0636 TSH mcIU/mL 2.18 Allergies: Naproxen Discharge Diet: Diet Special; Cardiac; No Straws Disposition: Short Term Hospital Discharge Medications Medication List START taking these medications amoxicillin-clavulanate 875-125 mg per tablet Commonly known as: AUGMENTIN Take 1 (one) tablet by mouth every 12 (twelve) hours for 4 days . furosemide 20 MG tablet Commonly known as: LASIX Take 1 (one) tablet (20 mg total) by mouth 2 (two) times a day . CONTINUE taking these medications acetaminophen 325 MG tablet Commonly known as: TYLENOL albuterol 2.5 mg /3 mL (0.083 %) nebulizer solution Commonly known as: PROVENTIL b complex vitamins capsule benzoyl peroxide 5 % gel carBAMazepine 400 MG 12 hr tablet Commonly known as: TEGretol XR * chlorproMAZINE 25 MG tablet Commonly known as: THORAZINE * chlorproMAZINE 50 MG tablet Commonly known as: THORAZINE cloNIDine HCl 0.2 MG tablet Commonly known as: CATAPRES * divalproex 250 MG delayed release (DR) tablet Commonly known as: DEPAKOTE * divalproex 500 MG delayed release (DR) tablet Commonly known as: DEPAKOTE famotidine 20 MG tablet Commonly known as: PEPCID gabapentin 100 MG capsule Commonly known as: NEURONTIN guaiFENesin 600 mg 12 hr tablet Commonly known as: MUCINEX levothyroxine 150 MCG tablet Commonly known as: SYNTHROID, LEVOTHROID lithium 150 MG capsule LORazepam 1 MG tablet Commonly known as: ATIVAN montelukast 10 mg tablet Commonly known as: SINGULAIR risperiDONE 1 MG tablet Commonly known as: RISPERDAL vilazodone 20 mg tablet Commonly known as: VIIBRYD * This list has 4 medication(s) that are the same as other medications prescribed for you. Read thedirections carefully, and ask your doctor or other care provider to review them with you. STOP taking these medications levoFLOXacin 500 MG tablet Commonly known as: LEVAQUIN Where to Get Your Medications You can get these medications from any pharmacy Bring a paper prescription for each of these medications amoxicillin-clavulanate 875-125 mg per tablet furosemide 20 MG tablet Physician(s) Family: Iftikhar Kemp DO, Phone: None, Address: [address] [facility] [address] Follow Up: Iftikhar Kemp DO [address] [place] [address] Follow up in 1 week(s) Patient instructions, including activity, were given to the patient/family at discharge. Please seethe After Visit Summary in the medical record for details. Time spent on discharge: Over 45 mins Completed by: Idalia Sims on 03/01/19, 10:22 AM documented in this encounter Chief Complaint and Reason for Visit Chief Complaint self ref Chief Complaint self ref Obstructive sleep apnea-start w/o O2 & add if need Chief Complaint Obstructive sleep ap viktor-start w/o O2 & add if need results Chief Complaint G47.33 E66.2 I27.20 psg- Chief Complaint Obstructive sleep ap viktor Additional Source Comments Reason for Visit (unrecogniz ed section and content) Reason Comments Chest Congestion Presents with compla ints of cogestion cough and fever x 3 Reason Comments Altered Mental Status Status Reason Specialty Diagnoses / Procedures Referre d By Contact Referred To Contact Diagnoses Hypercapnia respiratory failure, interstitial edema Status Reason Specialty Diagnoses / Procedures Referre d By Contact Referred To Contact Closed Radiology Diagnoses Dyspepsia Acute respiratory failure, unspecified whether with hypoxia or hypercapnia (HCC) Procedures XR Modifed Barium Swallow Iftikhar Kemp DO [address] [place] [address] Reason Comments Consult EGD (unrecognized sect ion and content) No Status Records FoundNo Status Records FoundNo Status Records FoundNo Status Records FoundNo Status Records FoundNo Status Records FoundNo Status Records Found INFORMATION SOURCE (unrecogn ized section and content) DATE CREATED AUTHOR 01/22/2018 [facility] DATE CREATED AUTHOR AUTHOR'S ORGANIZ ATION 05/28/2021 [facility] DATE CREATED AUTHOR AUTHOR'S ORGANIZ ATION 05/28/2021 [facility] DATE CREATED AUTHOR AUTHOR'S ORGANIZ ATION 06/05/2021 [facility] DATE CREATED AUTHOR AUTHOR'S ORGANIZ ATION 09/28/2021 [facility] DATE CREATED AUTHOR AUTHOR'S ORGANIZ ATION 05/23/2022 [facility] DATE CREATED AUTHOR AUTHOR'S ORGANIZ ATION 12/05/2022 [facility] Vicki Coleman RN - 02/23/2019 1:36 PM EST ED Notes (unrecognized secti on and content) Per parent report pt was seen yesterday at another ED yesterday and dx with pneumonia and dc with antibiotics. Pt started having trouble staying awake today. documented in this encounter Holden Whiteside MD - 02/23/2019 9:22 PM EST H&P Notes (unrecognized sect ion and content) [facility] Medicine Inpatient H&P 02/23/2019 Holden Whiteside MD [facility] Patient: Fahad Bernabe Date of : 1990 (28 y.o.) PCP: Iftikhar Kemp, DO Assessment Fahad Bernabe is a 28 y.o. 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 Patient refuses to wear his CPAP machine for the last year was seen at [place] emergency department due to cough and for unresponsiveness. [facility] and was started on antibiotics. Patient been coughing and has had a fever. ABG on 2 L reveals pH is 7.32, PCO2 of 64.[address] of [address] scan of the brain was negative for any acute process. -Encephalopathy likely CO2 narcosis -Acute on chronic hypoxic hypercapnic respiratory failure -Concern of pneumonia has interstitial infiltrates both lungs and questionable pulmonary edema -Suspected pickwickian/obesity hypoventilation syndrome -Obstructive sleep apnea noncompliant on CPAP We will admit the patient to stepdown unit repeat ABG and place the patient on BiPAP and oxygen support, bronchodilators and start the patient on antibiotics ceftriaxone azithromycin, sent for urine Legionella pneumococcus antigens, influenza, IV Lasix, echocardiogram SUBJECTIVE: Chief Complaint: Cough shortness of breath and change mental status History of Presenting Illness: Fahad Bernabe is a 28 y.o. male with past medical history of Down syndrome with aggressive behavior, recurrent pneumonia, obstructive sleep apnea. Patient refuses to wear his CPAP machine for the last year was seen at [place] emergency department due to cough and for unresponsiveness. [facility] with a [facility] and was started on antibiotics. Patient is a resident of a [facility] in [place]. His mother went to pick him up last night to bring him to her home. Patient been coughing and has had a fever. He was given to albuterol nebulizer treatments today which did not help. Patient been sleeping all morning according to the mother. She states she could not wake him up. ABG on 2 L reveals pH is 7.32, PCO2 of 64.2 and PaO2 of 76. CT scan of the brain was negative for any acute process. Review of Systems: 10 systems reviewed and negative other than noted in HPI History: Past Medical History: Diagnosis Date ADHD Bipolar 1 disorder (HCC) Depression Disease of thyroid gland Down's syndrome OCD (Obsessive Compulsive Disorder) Seizures (HCC) Sleep apnea Past Surgical History: Procedure Laterality Date CARDIAC SURGERY As an No family history on file. Social History Tobacco Use Smoking Status Never Smoker Smokeless Tobacco Never Used Social History Substance and Sexual Activity Alcohol Use Never Frequency: Never Family and Social History reviewed and non-pertinent to this visit Allergies: Naproxen Home Medications: Outpatient Medications as of 02/23/2019 Medication Sig b complex vitamins capsule Take 1 capsule by mouth daily . carBAMazepine (TEGretol XR) 400 MG 12 hr tablet Take 400 mg by mouth 2 (two) times a day . chlorproMAZINE (THORAZINE) 50 MG tablet Take 150 mg by mouth nightly . divalproex (DEPAKOTE) 500 MG delayed release (DR) tablet Take 500 mg by mouth 3 (three) times a day 2 tablets at 8pm . famotidine (PEPCID) 20 MG tablet Take 20 mg by mouth daily . gabapentin (NEURONTIN) 100 MG capsule Take 100 mg by mouth 3 (three) times a day . vilazodone (VIIBRYD) 20 mg tablet Take 20 mg by mouth daily Take 1 and 1/2 tablets by mouth daily . albuterol (PROVENTIL) 2.5 mg /3 mL (0.083 %) nebulizer solution Take 2.5 mg by nebulization every 6 (six) hours as needed for wheezing . cloNIDine HCl (CATAPRES) 0.2 MG tablet Take 0.2 mg by mouth 3 (three) times a day . levothyroxine (SYNTHROID, LEVOTHROID) 150 MCG tablet Take 150 mcg by mouth once daily . lithium 150 MG capsule Take 300 mg by mouth nightly . LORazepam (ATIVAN) 1 MG tablet Take 2 mg by mouth nightly . montelukast (SINGULAIR) 10 mg tablet Take 10 mg by mouth nightly . risperiDONE (RISPERDAL) 1 MG tablet Take 1 mg by mouth 3 (three) times a day . OBJECTIVE: Physical Examination: There were no vitals taken for this visit. General Appearance: Alert, well appearing, and in no acute distress. HEENT: Head - Normocephalic, atraumatic. Eyes - GROVER bilaterally and EOMI. Ears - normal external appearance, hearing intact. Nose - normal, no erythema. Throat - mucous membranes moist, pharynx without lesions. Neck: Supple, trachea midline. Cardiovascular: S1, S2 normal. No murmurs, rubs, clicks or gallops appreciated. +1 pedal edema. Respiratory: Decreased air entry to both sides of the chest with audible few crackles to auscultation, no wheezes, or rhonchi heard. Abdomen: Soft, non-tender, normal bowel sounds, non-distended, no masses or organomegaly appreciated. Neurological: Grossly normal motor and sensory exam. No focal deficits. Musculoskeletal: No joint tenderness, deformity or swelling. Skin: Normal coloration and turgor. No rashes. Psych: Alert, oriented x 3. Normal mood and affect. Laboratory and Additional Data Reviewed: Results/Medications Reviewed 02/23/19 9:22 PM: Results from last 7 days Lab Units 02/23/19 1434 SODIUM mmol/L 143 POTASSIUM mmol/L 4.8 CHLORIDE mmol/L 108 BUN mg/dL 15 CREATININE mg/dL 1.20 GLUCOSE mg/dL 104* CALCIUM mg/dL 8.3* Results from last 7 days Lab Units 02/23/19 1623 02/23/19 1434 WBC K/mcL -- 10.95 HGB g/dL -- 10.9* POC HEMOGLOBIN g/dL 11.6* -- HCT % -- 35.1* HEMATOCRITPOC % 34* -- PLT K/mcL -- 241 Results from last 7 days Lab Units 02/23/19 1434 INR 1.1 Results from last 7 days Lab Units 02/23/19 1434 ALK PHOS U/L 73 BILIRUBIN TOTAL mg/dL 0.1 BILIRUBIN DIRECT mg/dL <0.1 TOTAL PROTEIN g/dL 7.4 ALTR U/L 21 AST U/L 18 CULTURES: Reviewed 9:22 PM IMAGING: Reviewed 9:22 PM documented in this encounter Eda Arriaga, KIESELGUHR REGENERATOR OPERATOR - 02/25/2019 10:00 AM EST Procedure Notes (unrecognize d section and content) Procedure(s): KIESELGUHR REGENERATOR OPERATOR MODIFIED BARIUM SWALLOW Pre-Procedure Diagnose(s): Dysphagia, unspecified type Post-Procedure Diagnose(s): Oropharyngeal dysphagia [facility] Speech Language Pathology Modified Barium Swallow Study Procedure Notes - Final Patient: Fahad Bernabe Date of : 1990 General Information: Ordering Physician Dr. Mcgrath Radiologist Dr. Gordillo Date of Onset 02/23/2019 Date of Order 02/24/2019 Date of Evaluation 02/25/2019 Type of Study Initial MBS Rancho Level n/a Mental Status Alert, inconsistently cooperative Oral Status Permanent teeth Respiratory Status Nasal cannula Feeding Self View Lateral Study Limitations Excessive patient movement Diet Prior to this Study Regular; Thin liquid Textures Used: Thin cup; Honey spoon; Pudding spoon; Mechanical soft Oral Phase: Oral Phase Mild Lingual Control Loss of bolus to pharynx Lingual Coordination Tongue pumping; Piecemeal degultution, mild tongue thrust Lingual Strength Reduced tongue base strength Mastication Extended time, reduced rotary chew Pharyngeal Phase: Pharyngeal Phase Mild Delayed Swallow tongue pumping Delay Swallow Inititated at Valleculae Velopharyngeal Closure Reduced palatal retraction and elevation without regurgitation to nasal cavity Anterior Excursion Partial movement Laryngeal Elevation Mod; Partial epiglottic movement Laryngeal Sensation No sensory response to trace penetration of larger sustained volume thin liquid Esophageal Phase: WFL Penetration: Penetration Present? Yes Penetration Characteristics Trace amount; Shallow Consistencies Penetrated Thin continuous cup Caused by Uncoordinated swallow; Partial epiglottic inversion Response No cough Strategies Used Limit bolus size; Always effective Aspiration: not observed Recommendation: PO Recommendations Regular; Thin liquid Strategies Vocal quality check Posture Sit 90 degrees; Up 30 minutes after meal Food Presentation Small bites Liquid Presentation Small sips, consider Provale Cup for volume control Medication Presentation Whole with thins, one at a time Amount of Supervision Nursing / Staff supervision Treatment Techniques Train feeding / swallowing strategies Body Structure and Function Neurologic impairment; Cardiopulmonary impairment Neurologic impairment; Cardiopulmonary impairment Explain Impairments admit w/ pneumonia/respiratory failure/hypercapnea, hx seizures, Down's, ADHD, OCD, bipolar, depression recurring pulmonary compromise, Down's Syndrome, hx bipolar, ADHD, OCD Activities and Participation Balance limitation and fall risk; ADL/IADL limitation; Executive function limitation Balance limitation and fall risk; Executive function limitation Explain Limitations followed direction inconsistently, easily distracted, elevated fall risk, benefits from assist with ADL's, developmental delays/cog deficits elevated fall risk Environmental Factors Home situation; Family/caregiver support Home situation; Family/caregiver support Explain Environmental Factors supportive mother, lives in [facility] in [facility] lives in [facility] in [place], mother very supportive - pt stays with mother every other weekend Personal Factors Awareness of own capacity and performance Awareness of own capacity and performance Explain Personal Factors premorbid cognitive deficits developmental delays and cognitive deficits, impulsivity Skilled Therapy Needs: Anticipate Resolution of Current Assessment Limitations Including (No Value) Are Skilled Therapy Services Needed After Discharge Yes Yes Intensity of Skilled Therapy (No Value) 2-3 days per week Anticipated Duration of Skilled Therapy (No Value) Duration 10 - 30 days Speech Pathology MBS Treatment Note Treatment Provided / Skilled Intervention: Pt seen this am for MBS with mother present throughout procedure for support. Pt was, for most part, cooperative but did refuse at one point benefitting from emotional support and prompting to continue (refusing due to taste and texture of barium). Swallow integrity impacted by self feeding technique (large continuous bolus presentation). Pt did not follow direction well for monitor of bolus size. Was able to control solid bolus with premature spill to vallecular region, good pharyngeal clearance. Thin liquid via cup sip resulted in extremely large bolus with swallow x5 to clear oral cavity. Due to pharyngeal flooding, there was one episode of trace and transient penetration which pt was not sensate to. Reviewed MBS with pt and mother with education provided re: risk factors given larger volume sips and bites, reduced epiglottal inflection (limited hyolaryngeal elevation and protraction). Briefly educated and discussed possible ADL equipment to assist with limiting volume of sips (Provale Cup) with plan for ongoing education as indicated. Will continue regular consistency diet and thin liquids with supervision and verbal/ tactile cues and prompts to limit bolus size during intake. RN updated to above. This note stands as the current Discharge Summary upon patient discharge from the hospital or completion of Speech Pathology Plan of Care documented in this encounter Damian Grigsby MD - 02/26/2019 5:48 PM Noemí Jacobo MD - 02/26/2019 1:46 PM Ivory Lima LISW - 02/25/2019 12:33 PM Eda Lynne SLP - 02/24/2019 3:08 PM EST Consult Notes (unrecognized section and content) Associated Order(s): IP CONSULT TO NEUROLOGY Neurology consult note. Service date: 02/26/2019. Fahad Bernabe is 28 y.o. male with a history of trisomy 21 Down syndrome currently a resident of [facility], presenting with hypoxic respiratory failure CO2 narcosis and sleep apnea. Neurology was consulted by the primary team for evaluation of neurological causes of encephalopathy. He lives at the [facility] but is being checked on by his biological mother and his stepfather every week. He has had behavioral and mood issues since childhood and has been on valproic acid since age 13 for behavioral changes. Previously he was on antipsychotic such as Seroquel which have been weaned off. He was subsequently placed also on lithium for mood and behavior. His psychiatrist Dr. Pickard manages his valproic acid and lithium at this time. He is also on clonidine. Mother reports that he has had staring spells in the past (last of those spells were 4 years ago). At the time of this interview and exam patient is largely back to his normal self but continues to be foggy and groggy. He is able to walk around in the hallway, meet and greet with people interacting normally. He is able to follow commands in all 4 extremities, and even recall complex information from the past at this time. He has very fine distal hand tremors which are consistent with longstanding exposure to valproic acid and lithium (even mild parkinsonism can be seen in these cases). This does not require any treatment at this time. Acute metabolic encephalopathy Assessment & Plan 1. Mostly from hypoxia and hypercarbia from respiratory failure. 2. Slowly improving. Patient almost back to his baseline per family. Able to walk around in the hallway, participating examination and also recall complex information from the past. 3. No active intervention needed at this time. 4. His valproic acid and lithium are being given for mood and not for seizures at this time. 5. Last seizure like staring spells were 4 years ago, and these are likely to be behavioral as is seen in many Down syndrome and ASD spectrum disorder patients. 6. At this time no changes in medication regimen is necessary. 7. No need to increase the doses of valproic acid or lithium based on his serum levels at this time. Serum levels are only relevant in the setting of her clinical neuropsychiatric event. Continue medications at home dose. Consult with Dr. Pickard at discharge for follow-up. I discussed plan and clinical examination findings in detail with the patient's mother and his stepfather. I advised them that if they need to see a neurologist in the region they can call my clinic and make an appointment and I am open to seeing him in follow-up. No need for a scheduled follow-up at this time given his improvement. DAMIAN GRIGSBY, MSc, . [email or web address] Neurologist & Movement Disorder Specialist [facility] (Adj Asst: Professor, [employer] Dept of Neurology) Jany Allegra BautistaCRISTOBAL [id number], [facility] [id number] Clinic (Appointments) Fax: [phone] Attestation: Time statement: A total of 50 minutes were spent on this encounter either in the patient's room or on the patient's hospital unit and over half of that time was spent on [id number] counseling and/or coordination of care. This note was dictated using [employer], a speech-recognition software. Syntax errors and sound-alike substitutions which may escape proofreading could be present. In such instances, the actual meaning can be extrapolated from the context. Associated Order(s): IP CONSULT TO PULMONOLOGY PULMONOLOGY CONSULT 02/26/2019 Patient: Fahad Bernabe Date of : 1990 Site: [facility] Referring Provider: Refer to consult order in electronic medical record Provider: Kathryn Lawrence CNP ASSESSMENT/PLAN: Fahad Bernabe 28 y.o. male with history of Down syndrome, ADHD, Depression, Hypothryoidism, OCD, Seizures, open heart surgery for childhood ASD/VSD, HTN, aspiration pneumonia, obstructive sleep apnea on CPAP for which he is nonadherent. Transferred to [place] for aspiration pneumonia and acute on chronic respiratory failure. Obesity Hypoventilation Syndrome - pt is ordered to be on 1800 calorie restricted diet at his facility which is not followed. Patient has gained weight over the past 2 years. - recommendation to follow calorie restricted diet and patient to lose at least 50# - if unable to comply with diet changes and weight loss, the next recommendation would be for tracheostomy Obstructive Sleep Apnea - pt underwent sleep study one year ago and prescribed a CPAP but is not adherent with wearing nightly. Nursing facility needs to be instructed that he must wear the mask with all hours of sleep. - Patient may likely benefit from NIPPV via Bipap versus CPAP. - If unable unable to adhere to weight loss recommendations and nightly wearing of CPAP/Bipap then the recommendation would be to proceed with tracheostomy. Acute on Chronic Respiratory Failure - Pt on chronic 2lp per NC at night since last admission for pneumonia - presented with hypercarbia and hypoxia - continue Bipap with all hours of sleep - will likely benefit from Bipap as outpatient - Pt does show signs of fluid overload and pulmonary edema upon admission, would agressively diurese the patient. - Pt needs a sodium restricted diet, daily weights, and I/Os. Chronic Aspiration Pneumonia - pt with repeat occurrences of aspiration pneumonia - SLT following with recommendations - Concern for non-adherence once he returns to his facility, mother will discuss care - Again, if unable to comply with recommendations and continues to present with aspiration pneumonia the recommendation would be to proceed with a tracheostomy and tube feedings. Pulmonary Hypertension - Echo this admission with moderate to severe pulmonary hypertension with estimated RV systolic pressure 66 mmHg. - Secondary to OHS/NARINDER, chronic respiratory failure with hypercarbic and hypoxemia and fluid overload - Aggressively diurese monitoring BUN/Cr. Will add additional Lasix today. Daily weight and I/O - Control HTN - Recommend treatment of associated conditions with at least 50# weight loss and nightly compliance with NIPPV No new Assessment & Plan notes have been filed under this hospital service since the last note was generated. Service: Pulmonology SUBJECTIVE: Chief Complaint/Reason for Visit: lethargy with hypoxia History of Present Illness: Fahad Bernabe is a 28 y.o. male presenting from [facility] with complaint of lethargy and was evaluated at [facility] where he was diagnosed with Pneumonia and discharged home with antibiotics. Mother took patient home with her that evening and presents to [place] ED the following day for worsened lethargy, fever, and cough. B/L interstitial edema noted and patient transferred to [place] for respiratory failure. Pt with history of sleep apnea s/p sleep study one year ago but has not been wearing his mask at night. Mother states the facility has been giving him the option to wear the mask or not and he chooses not to wear. In December he was admitted for aspiration pneumonia and since that event has been wearing O2 at night. He has gained weight over the past several years despite being ordered to be on a calorie restricted diet. Mother states they take the residents out to eat frequently and have celebratory meals often. They have noticed increased lethargy since his admission on December. Patient not able to contribute to ZUNI or ROS. Information obtained from mother and EMR. Interpretation of Testing: I personally reviewed the Chest X-ray and agree with the interpretation(s). Review of Systems: Unable to perform ROS due to patient's lack of cooperation with answering questions Past Medical History: Diagnosis Date ADHD Bipolar 1 disorder (HCC) Depression Disease of thyroid gland Down's syndrome OCD (Obsessive Compulsive Disorder) Seizures (HCC) Sleep apnea Past Surgical History: Procedure Laterality Date CARDIAC SURGERY As an infant History reviewed. No pertinent family history. Social History Tobacco Use Smoking Status Never Smoker Smokeless Tobacco Never Used Additional History Comments: None Allergies: Naproxen I have reviewed prior to admission medication list. Current Facility-Administered Medications Medication Dose Route Frequency Provider Last Rate Last Dose acetaminophen (TYLENOL) tablet 650 mg 650 mg Oral Q6H PRN Holden Whiteside MD 650 mg at 02/24/19 1604 amoxicillin-clavulanate (AUGMENTIN) 875-125 mg per tablet 1 tablet 1 tablet Oral Q12H [facility] Idalia Sims MD 1 tablet at 02/26/19 1149 azithromycin (ZITHROMAX) 500 mg in sodium chloride 0.9 % (NS) 250 mL IVPB 500 mg Intravenous Q24H Holden Whiteside MD Stopped at 02/26/19 0054 bisacodyL (DULCOLAX) suppository 10 mg 10 mg Rectal Daily PRN Idalia Sims MD carBAMazepine (TEGretol XR) 12 hr tablet 400 mg 400 mg Oral BID Holden Whiteside MD 400 mg at 02/26/19 0839 chlorproMAZINE (THORAZINE) tablet 150 mg 150 mg Oral Nightly Holden Whiteside MD 150 mg at 02/25/192024 chlorproMAZINE (THORAZINE) tablet 25 mg 25 mg Oral BID Holden Whiteside MD 25 mg at 02/26/19 0839 cloNIDine HCl (CATAPRES) tablet 0.2 mg 0.2 mg Oral TID Holden Whiteside MD 0.2 mg at 02/26/19 0839 divalproex (DEPAKOTE ER) 24 hr tablet 1,000 mg 1,000 mg Oral at bedtime Dafne Whiteside MD 1,000 mg at 02/25/19 202 divalproex (DEPAKOTE ER) 24 hr tablet 250 mg 250 mg Oral BID Dafne Whiteside MD 250 mg at 02/26/19 1153 divalproex (DEPAKOTE ER) 24 hr tablet 500 mg 500 mg Oral BID Dafne Whiteside MD 500 mg at 02/26/19 1150 enoxaparin (LOVENOX) syringe 40 mg 40 mg Subcutaneous BID [facility] famotidine (PEPCID) tablet 20 mg 20 mg Oral Daily Holden Whiteside MD 20 mg at 02/26/19 0838 furosemide (LASIX) injection 20 mg 20 mg Intravenous BID Idalia Sims MD furosemide (LASIX) injection 20 mg 20 mg Intravenous Once Kathryn Lawrence, RAVINDER gabapentin (NEURONTIN) capsule 100 mg 100 mg Oral TID Holden Whiteside MD 100 mg at 02/26/19 0839 guaiFENesin (MUCINEX) 12 hr tablet 600 mg 600 mg Oral BID Holden Whiteside MD 600 mg at 02/26/19 0838 ipratropium-albuterol (DUO-NEB) 0.5-2.5 mg/3 ml nebulizer solution 3 mL 3 mL Inhalation 4x daily Holden Whiteside MD 3 mL at 02/26/19 1306 ipratropium-albuterol (DUO-NEB) 0.5-2.5 mg/3 ml nebulizer solution 3 mL 3 mL Inhalation Q2H PRN Holden Whiteside MD levothyroxine (SYNTHROID, LEVOTHROID) tablet 150 mcg 150 mcg Oral Daily Holden Whiteside MD 150 mcg at 02/25/19 0513 lithium capsule 300 mg 300 mg Oral Nightly Holden Whiteside MD 300 mg at 02/25/192023 LORazepam (ATIVAN) tablet 2 mg 2 mg Oral Nightly Holden Whiteside MD 2 mg at 02/25/192022 montelukast (SINGULAIR) tablet 10 mg 10 mg Oral Nightly Holden Whiteside MD 10 mg at 02/25/192022 ondansetron (ZOFRAN) injection 4 mg 4 mg Intravenous Q6H PRN Holden Whiteside MD polyethylene glycol (MIRALAX) powder 17 g 17 g Oral Daily Idalia Sims MD 17 g at 02/26/19 1149 risperiDONE (RISPERDAL) tablet 1 mg 1 mg Oral TID Holden Whiteside MD 1 mg at 02/26/19 0838 senna-docusate (SENNA-S) 8.6-50 mg per tablet 1 tablet 1 tablet Oral BID Idalia Sims MD 1 tablet at 02/26/19 1149 vilazodone (VIIBRYD) tablet 30 mg 30 mg Oral Daily Holden Whiteside MD 30 mg at 02/26/19 0838 OBJECTIVE: Physical Examination: BP 131/84 (BP Location: Right arm, Patient Position: Sitting) Pulse 97 Temp 97.8 F (36.6 C) (Oral) Resp 16 Ht 4' 9 Wt 119.9 kg (264 lb 5.3 oz) SpO2 95% BMI 57.20 kg/m Temp: [97.8 F (36.6 C)-99 F (37.2 C)] 97.8 F (36.6 C) Heart Rate: [73-97] 97 Resp: [16-18] 16 BP: (113-145)/(61-84) 131/84 SpO2 Readings from Last 1 Encounters: 02/26/19 95% Intake/Output Summary (Last 24 hours) at 02/26/2019 1346 Last data filed at 02/26/2019 0700 Gross per 24 hour Intake 814.81 ml Output Net 814.81 ml Vital Signs Reviewed. Gen: Alert and oriented x 3, In no apparent distress HEENT: Head: Normocephalic, no lesions, without obvious abnormality. Eye: Normal external eye, conjunctiva, lids cornea, JAYLA. Pharynx: Dental Hygiene adequate. Normal buccal mucosa. Normal pharynx. Neck: nontender, full range of motion, no mass, no focal lymphadenopathy Cardio: regular rate and rhythm, brisk capillary refill, harsh systolic murmur noted 3/6, heard best at L sternal border and apex. 2+ pitting edema to B/L LE Resp: clear to auscultation bilaterally, no wheezes or crackles, no tachypnea or accessory muscle use Abd: soft, nontender, nondistended, no hepatosplenomegaly, no mass, normal bowel sounds MSK: Moves all four extremities spontaneously. Neuro: Grossly normal without focal findings. Pt will follow simple commands. Will not answer questions but instead kissing this providers arm. Skin: no rashes, no jaundice Labs and Imaging: [x] Medications reviewed. [x] Labs reviewed. Pertinent findings noted: pH 7.37, pCO2 71.3, pO2 94, HCO3 41.1 [x] Radiology reviewed. Pertinent findings noted: CXR with B/L pulmonary edema [] Pathology reviewed. Pertinent findings noted: Family Update/ Code Status: Full code Laboratory and Additional Data Reviewed: Reviewed 02/26/19 1:46 PM: Laboratory, Microbiology, Radiology, Cardiology, Medications and Transcriptions Associated Order(s): IP CONSULT TO CARE MANAGEMENT COMPLEX DISCHARGE Date: 02/25/2019 Time: 12:33 PM Patient Name: Fahad Bernabe Date of : 1990 Sex: Male Patient Information Primary Caregiver: Other (Comment)([facility] - [phone]) Initial assessment completed with patient's mother, Edison. Patient was present during assessment. Patient's mother Edison reports that she is patient's guardian. This social welfare research worker requested that Edison bring in a copy of guardianship paperwork for patient's chart. Edison reports that patient resides at [facility], which is a care center for [facility]. Patient does need 24 hour supervision due to flight risk. PING Hendricks is aware and reports that a break away alarm is placed on patient. This social welfare research worker contacted Pavithra at [facility]. Pavithra reports that patient can return at discharge. Pavithra informed that Edison plans to transport patient when patient is ready for discharge. Pavithra reports that patient was on 2 liters of oxygen at night while at [facility]. Pavithra requested discharge paperwork when patient is discharged from the hospital. [facility] [phone] FAX [phone]. Discharge Planning Living Arrangements: Facility Support Systems: Parent, client hr manager/social welfare research worker, Other (Comment)(Mother Edison reports that she is guardian.) Assistance Needed: stand by Type of Residence: [facility] Care Facility Name: ([facility].) Prior to Admission Home Care Services: No Patient expects to be discharged to:: [facility]. Mother Edison to transport. Does the patient need discharge transport arranged?: No Current Home Equipment: None, Oxygen Anticipated HME: Undetermined Anticipated Discharge Plan Anticipated HME: Undetermined [facility] Disposition D/C Disposition: Another Health Care Institution Not Defined([facility] Agency/Destination: ([facility]) Transportation Type: Auto(MotherEdison to transport [phone]) Reason for Choice: Currently with agency Speech Pathology Bedside Swallow Evaluation Recommended Diet: PO Recommendations: Regular, Thin liquid Fahad Bernabe was seen for initial BSE. Pt was alert and cooperative. Patient trialed on the following: CONSISTENCY PRESENTATION ORAL (SIGNS / SYMPTOMS) PHARYNGEAL (SIGNS / SYMPTOMS) ICE THIN Straw Within functional limits (no overt clinical indication of penetration/aspiration) NECTAR HONEY PUREE Spoon Within functional limits (no overt clinical indication of penetration/aspiration) SOFT SOLID Self Fed Increased Anterior to Posterior Transit (no overt clinical indication of penetration/aspiration) Wile no overt signs of penetration/aspiration were observed, there is significant concern given pt recurrent pulmonary compromise, mother report of pt with increased congestion whenever eating/drinking, increasing tendency to take very large bites and sips. Pt presents with Mild oral and Suspect impaired pharyngeal dysphagia. Recommending MBS for pharyngeal diagnostics, MBS order placed. Speech therapy to f/u with patient per POC. Will continue current diet pending further recommendations from instrumental. Oral/Motor Oral Motor Impression-Severity Scale: Mild Labial ROM: Within Functional Limits Labial Symmetry: Within Functional Limits Labial Strength: Reduced Labial Sensation: Within Functional Limits Lingual ROM: Reduced coordination Lingual Symmetry: Within Functional Limits Lingual Strength: Reduced Lingual Sensation: Within Functional Limits Velum: Structual Abnormality(unable to assess-reduced oral opening; ?cleft) Mandible: Reduced vertical ROM Facial ROM: Within Functional Limits Facial Symmetry: Within Functional Limits Facial Sensation: Within Functional Limits Vocal Quality: Within Functional Limits Vocal Intensity: Within Functional Limits Gag: (not tested) Apraxia: None present Intelligibility: Intelligibility reduced Intelligibility Ratin-74% Breath Support: Adequate for speech Dentition: Permanent Discharge Recommendations: Factors for Returning to Prior Level of Function Body Structure and Function: Neurologic impairment, Cardiopulmonary impairment Explain Impairments: admit w/ pneumonia/respiratory failure/hypercapnea, hx seizures, Down's, ADHD, OCD, bipolar, depression Activities and Participation: Balance limitation and fall risk, ADL/IADL limitation, Executive function limitation Explain Limitations: followed direction inconsistently, easily distracted, elevated fall risk, benefits from assist with ADL's, developmental delays/cog deficits Environmental Factors: Home situation, Family/caregiver support Explain Environmental Factors: supportive mother, lives in [facility] Personal Factors: Awareness of own capacity and performance Explain Personal Factors: premorbid cognitive deficits Skilled Therapy Needs: Anticipate Resolution of Current Assessment Limitations Including: (acute pulmonary deficit) Are Skilled Therapy Services Needed After Discharge: Yes Intensity of Skilled Therapy: (to be determined per MBS) Anticipated Duration of Skilled Therapy: (pending MBS) KIESELGUHR REGENERATOR OPERATOR Caregiver Readiness Working toward discharge home: Yes KIESELGUHR REGENERATOR OPERATOR Caregiver Training: Ongoing - Follow up required Who was trained?: Mother Provided training for: Safe swallowing strategies - follow up required Caregiver response to training: Verbalizes understanding Impressions / Severity Level: Impressions-Severity Dysphagia Outcome and Severity Scale: Level 5 - Mild dysphagia Oral Severity Scale: Mild Pharyngeal Severity Scale: Suspect impaired Recommendations: Recommendations Further Eval Rxs: MBS PO Recommendations: Regular, Thin liquid Compensation Strategies: Vocal quality check Postures: Sit 90 degrees, Up 30min after meal Food Presentation: Small bites Liquid Presentation: Small sips Medication Presentation: Whole with thins Amount of Supervision: Nursing staff supervision, Physical assistance requried Treatment Techniques: Diet tolerance, Train feed strategies Further Recommendations: Assess for diet tolerance Prior Level of Function: Prior Function Dysphagia Onset: 02-23-2019; has had recurrent pulmonary compromise Patient Complaint: Unable Date of Previous MBS: unknown Date of Previous BSE: unknown Diet Prior to BSE: Regular(cardiac) Behavioral Observations: Alert, Cooperative, Cognitive deficits For complete objective data, detailed plan of care, and education refer to: Speech Bedside Swallow Evaluation flow sheet, as well as patient Plan of Care and Education documentation This note stands as the current Discharge Summary upon patient discharge from the hospital or completion of Speech Pathology Plan of Care Speech Pathology Bedside Swallow Treatment Note Total Treatment Time (Total Session Time): 35 Minutes Treatment Provided / Skilled Intervention: Pt seen this pm for bedside swallow with mother present throughout session. Mother reports pt has cleft palate - visualization difficult to assess due to minimal compliance with open mouth positioning (question submucous cleft). Pt was inconsistent with cooperation, at times very friendly, becoming agitated with therapist attempts to palpate laryngeal mvmt (pushing hand away). Mother reports recent changes in bite and sip size (taking very large bites and not following direction for smaller amounts of intake). Educated mother to dysphagia concerns and MBS recommendation for baseline study given recurring pneumonias and changes in oral intake patterns. Educated to aspiration precautions and positioning techniques. Mother verbalizing understanding and very open to suggestions, states pt has primarily received speech therapy for developmental delay and speech intelligibility and is not aware of swallowing history. RN updated to above, MBS to be scheduled for early this week. This note stands as the current Discharge Summary upon patient discharge from the hospital or completion of Speech Pathology Plan of Care documented in this encounter Initial Assessments - Brandt Concepcion - 03/01/2019 6:44 AM ESTPlan of Care - Eladio Goel RN - 02/28/2019 12:03 PM ESTVariance IP Rehab - Patricia Lema, CECI - 02/27/2019 2:30 PM EST Miscellaneous Notes (unrecog nized section and content) Nutrition Care Initial Assessment Reason for visit: Dietitian Screen Nutrition Diagnosis: No nutrition dx related to good appetite, as evidenced by 75-100% intake noted. Nutrition Intervention: Continue to monitor all Meal and Snacks for change in po intake Nutrition Prescription: Diet: Cardiac Oral nutrition supplement: n/a Tube Feeding: n/a Nutrition Goals: PO intake > 75% most meals Start Date: 03/01/19 End Date:03/08/19 Nutrition Education: Not appropriate due to clinical presentation Assessment: Pertinent clinical information: Downs Syndrome from ECF Past Medical History: Diagnosis Date ADHD Bipolar 1 disorder (HCC) Depression Disease of thyroid gland Down's syndrome OCD (Obsessive Compulsive Disorder) Seizures (HCC) Sleep apnea Height: 4' 9 Current weight: 93.8 kg (206 lb 14.4 oz) BMI Body mass index is 44.77 kg/m . Weight hx: stable Wt Readings from Last 5 Encounters: 02/28/19 93.8 kg (206 lb 14.4 oz) 02/23/19 90.7 kg (200 lb) Recent intake: 75-100%. Current intake meets estimated needs. Patient/family comments: Good appetite Difficulty Chewing/Swallowing: No Skin Integrity: Intact GI Function: WNL Labs: Recent Labs 03/01/19 0547 NA 141 K 4.0 BICARB 40* CL 98 GLUCOSE 102* BUN 28* CREATININE 1.56* MG 2.5* PHOS 4.2 Scheduled Meds: amoxicillin-clavulanate 1 tablet Oral Q12H RASHEEDA azithromycin 500 mg Intravenous Q24H carBAMazepine 400 mg Oral BID chlorproMAZINE 150 mg Oral Nightly chlorproMAZINE 25 mg Oral BID cloNIDine HCl 0.2 mg Oral TID divalproex 1,000 mg Oral at bedtime divalproex 250 mg Oral BID divalproex 500 mg Oral BID enoxaparin (LOVENOX) injection 40 mg Subcutaneous BID famotidine 20 mg Oral Daily furosemide 20 mg Intravenous BID gabapentin 100 mg Oral TID guaiFENesin 600 mg Oral BID ipratropium-albuterol 3 mL Inhalation 4x daily levothyroxine 150 mcg Oral Daily lithium 300 mg Oral Nightly LORazepam 2 mg Oral Nightly montelukast 10 mg Oral Nightly polyethylene glycol 17 g Oral Daily risperiDONE 1 mg Oral TID senna-docusate 1 tablet Oral BID vilazodone 30 mg Oral Daily Continuous Infusions: Estimated Energy Needs Total Energy Estimated Needs: 1800-2000cal Method for Estimating Needs: [id number],adjbw Total Protein Estimated Needs: 79gms Method for Estimating Needs: 1.2gms/kg,adjbw Fluid Needs Total Fluid Estimated Needs: per MD Will follow and monitor appropriately. Brandt Concepcion DTR Problem: Actual or potential alteration in health Goal: Absence of healthcare acquired conditions Outcome: Met Patient remains free from hospital-acquired conditions this shift. Goal: Knowledge of Interdisciplinary Plan of Care Outcome: Met Patient and family educated on plan of care including continual diuresis with IV lasix and possible discharge tomorrow. Goal: Knowledge of Enviroment Outcome: Met Patient's mother knowledgeable of surroundings and available resources. Problem: Plan for Discharge Goal: Knowledge of discharge plan and instructions Outcome: Met Possible discharge to [facility] tomorrow. Problem: Falls, Risk of Goal: Absence of falls Outcome: Met Patient up with standby assistance. Patient high fall risk, fall risk precautions continue. No falls this shift. Problem: Gas Exchange - Impaired Goal: Adequate oxygenation Outcome: Met Patient SpO2 >94% on 3L nasal cannula. Patient denies shortness of breath. Goal: Absence of infection signs and symptoms Outcome: Met Patient continuing ot receive IV antibiotics. Infection improving and symptoms of infection diminishing. Problem: Pain Goal: Reduced pain sensation Outcome: Met Patient report little hurt in left buttocks. Redness to sacrum, meplex and triad cream applied. Goal: Achievement of comfort function goal Outcome: Met Patient reports comfort to painful sacrum when ambulatory. Problem: Pain Goal: Manage acute pain Outcome: Partially Met Patient reports comfort to painful sacrum when ambulatory. Problem: Pain Goal: Manage chronic pain Outcome: Not Addressed Patient denies having chronic pain this shift. SPEECH THERAPY VISIT VARIANCE NOTE Attempted to see patient at this time for solid po trials, but unable secondary to: Visit Variance: Patient with bathroom needs per mother at [facility]. Will follow up as appropriate. Associated Problem(s): Acute metabolic encephalopathy 1. Mostly from hypoxia and hypercarbia from respiratory failure. 2. Slowly improving. Patient almost back to his baseline per family. Able to walk around in the hallway, participating examination and also recall complex information from the past. 3. No active intervention needed at this time. 4. His valproic acid and lithium are being given for mood and not for seizures at this time. 5. Last seizure like staring spells were 4 years ago, and these are likely to be behavioral as is seen in many Down syndrome and ASD spectrum disorder patients. 6. At this time no changes in medication regimen is necessary. 7. No need to increase the doses of valproic acid or lithium based on his serum levels at this time. Serum levels are only relevant in the setting of her clinical neuropsychiatric event. Problem: Actual or potential alteration in health Goal: Absence of healthcare acquired conditions Outcome: Met Patient remains free from hospital-acquired infection. Goal: Knowledge of Interdisciplinary Plan of Care Outcome: Met Unable to assess patient's understanding. Patient's mother remains informed on plan of care including to improve respiratory status. ABG drawn today. Will continue IV antibiotics. Goal: Knowledge of Enviroment Outcome: Met Unable to assess patient's understanding. Patient's mother knowledgeable of surroundings and available resources. Problem: Falls, Risk of Goal: Absence of falls Outcome: Met Patient high fall risk. Fall risk precautions continue. Patient had no falls this shift. Problem: Gas Exchange - Impaired Goal: Adequate oxygenation Outcome: Met Patient began with 5L nasal cannula oxygen maintaining SpO2 >94%. Titrated patient's oxygen down to 3L nasal cannula with SpO2 remaining >94%. Patient denies shortness of breath and symptoms. Goal: Absence of infection signs and symptoms Outcome: Met Patient on IV antibiotics. No signs of infection noted. Problem: Plan for Discharge Goal: Knowledge of discharge plan and instructions Outcome: Not Met No discharge order. Care management consulted. Patient from [facility] in [place]. Problem: Pain Goal: Manage acute pain Outcome: Partially Met Patient complains of 4-7/10 sore pain to buttocks. Presents with redness and excoriation to bottom. Encouraged ambulation, and applied triad cream. Goal: Manage chronic pain Outcome: Partially Met Patient denies chronic pain. Goal: Reduced pain sensation Outcome: Partially Met Patient complains of 4-7/10 sore pain to buttocks. Presents with redness and excoriation to bottom. Encouraged ambulation, and applied triad cream. Goal: Achievement of comfort function goal Outcome: Partially Met Patient complains of 4-7/10 sore pain to buttocks. Presents with redness and excoriation to bottom. Encouraged ambulation, and applied triad cream. Plan of care started. Fall risk interventions discussed. And used during care documented in this encounter Care Teams (unrecognized sec tion and content) Team Status: Active Member Role Status Dates Iftikhar Kemp DO Primary Care Provider Active Team Status: Inactive Member Role Status Dates Iftikhar Kemp DO Primary Care Provider Active Thiago Chandler MD Attending Provider Active Grease Remover Relationship Specialty Start Date End Date Iftikhar Kemp DO [facility] [place] [phone] PCP - General Endocrinology/Metabolism 02/23/19 Goals (unrecognized section and content) Goals may be documented in a n alternate section FOR RECORDS PERTAINING TO PATIENTS WHO ARE OR HAVE BEEN ENROLLED IN A CHEMICAL DEPENDENCY/SUBSTANCEABUSE PROGRAM, SOME INFORMATION MAY BE OMITTED. This clinical summary was aggregated from multiple sources. Caution should be exercised in using it in the provision of clinical care. This summary normalizes information from multiple sources, and as a consequence, information in this document may materially change the coding, format and clinical context of patient data. In addition, data may be omitted in some cases. CLINICAL DECISIONS SHOULD BE BASED ON THE PRIMARY CLINICAL RECORDS. [facility] [employer] [facility]. provides no warranty or guarantee of the accuracy or completeness of information in this document.
--- NOTE | 2023-04-08 14:37 | ED.GENADUL1 ---
HPI - General Adult General Chief complaint: Shortness of Breath/Dyspnea Stated complaint: FLU SYMPTOMS Time Seen by Provider: 04/08/23 14:37 History of Present Illness HPI narrative: This patient was brought to us from [facility] for evaluation of some difficulty breathing. He does have cognitive delay. He apparently developed a cough within the last 24 hours and was started on a azithromycin pack yesterday. They also fearful that he may have aspirated several days ago as he is not normally supposed to drink p.o. fluids or use a straw but he did that. He is far less active than usual. He is usually quite communicative but he is not communicative active at all. He does shake his head yes and no appropriately to questions. Typically he is not on any oxygen. Indeed his pulse oximetry on arrival here is 83% on room air. We have no previous records of him at this institution. He has noted to have a sternotomy incision from previous cardiovascular procedure but we do not know the etiology. His records here showed that he had an echocardiogram done in 2020 that was essentially normal. His mother arrived and she is in excellent historian. She indicates that he had open heart surgery when he was an for holes in his heart, but she says his hearts been fine since that time. She indicates that he has not been in any healthcare facility recently. He has not been in taking any antibiotics to her knowledge. He does have a CPAP mask that he wears at nighttime for apnea. Related Data Home Medications Medication Instructions Recorded Confirmed acetaminophen 325 mg capsule 325 mg PO Q4H PRN 04/08/23 04/08/23 albuterol sulfate 2.5 mg/3 mL 2.5 mg continuous nebulization Q6H 04/08/23 04/10/23 (0.083 %) solution for nebulization PRN shortness of breath or wheezing bacitracin zinc 500 unit/gram 1 applic topical TID Boils 04/08/23 04/10/23 topical ointment benzoyl peroxide 5 % topical 1 applic topical Q12H 04/08/23 04/10/23 cleanser bisacodyl 10 mg rectal suppository 10 mg MT DAILY 04/08/23 04/08/23 (Laxative (bisacodyl)) carbamazepine 200 mg tablet 200 mg PO 0800,199904/08/23 04/08/23 chlorpromazine 10 mg tablet 10 mg PO 0800 04/08/23 04/08/23 chlorpromazine 25 mg tablet 25 mg PO 159904/08/23 04/08/23 chlorpromazine 50 mg tablet 50 mg PO 199904/08/23 04/08/23 clindamycin phosphate 1 % lotion 1 applic topical .qd 04/08/23 04/10/23 clonidine HCl 0.2 mg tablet 0.2 mg PO .0800,1200, 199904/08/23 04/08/23 dihydroxyaluminum sodium carb 334 334 mg PO BID PRN upset stomach 04/08/23 04/10/23 mg chewable tablet divalproex 250 mg tablet,delayed 500 mg PO 79904/08/23 04/08/23 release divalproex 500 mg tablet,delayed 500 mg PO 199904/08/23 04/08/23 release famotidine 20 mg tablet 20 mg PO 119904/08/23 04/08/23 furosemide 20 mg tablet 20 mg PO BID 04/08/23 04/08/23 gabapentin 100 mg capsule 100 mg PO TID 04/08/23 04/08/23 ketoconazole 2 % shampoo 1 applic topical .qd 04/08/23 04/10/23 ketoconazole 2 % topical cream 1 applic topical DAILY 04/08/23 04/08/23 levothyroxine 150 mcg tablet 150 mcg PO DAILY 04/08/23 04/08/23 lithium carbonate 300 mg capsule 300 mg PO BEDTIME 04/08/23 04/08/23 loperamide 2 mg capsule 2 mg PO QID 04/08/23 04/08/23 loratadine 10 mg tablet 10 mg PO DAILY 04/08/23 04/08/23 lorazepam 2 mg tablet 2 mg PO BEDTIME 04/08/23 04/08/23 montelukast 10 mg tablet 10 mg PO .once daily 04/08/23 04/08/23 ondansetron 4 mg disintegrating 4 mg PO Q6H 04/08/23 04/08/23 tablet risperidone 1 mg tablet 1 mg PO TID 04/08/23 04/08/23 sennosides 8.6 mg tablet (senna) 8.6 mg PO BID 04/08/23 04/08/23 sulfacetamide sodium 10 % topical 1 applic topical DAILY 04/08/23 04/08/23 cleanser, gel sulfacetamide sodium 10 % topical 1 applic topical DAILY 04/08/23 04/08/23 cleanser, gel tacrolimus 0.1 % topical ointment 1 applic topical BID 04/08/23 04/08/23 vilazodone 20 mg tablet 20 mg PO .morning 04/08/23 04/08/23 vitamin B complex 1 cap PO .qd 04/08/23 04/10/23 Previous Rx's Medication Instructions Recorded amoxicillin 500 mg-potassium 1 tab PO BID 7 days #14 tabs 04/11/23 clavulanate 125 mg tablet (Augmentin) benzonatate 100 mg capsule 100 mg PO TID PRN Cough #0 caps 04/11/23 guaifenesin 400 mg tablet (Chest 400 mg PO BID PRN Congestion #0 04/11/23 Congestion Relief) tabs Allergies Allergy/AdvReac Type Severity Reaction Status Date / Time naproxen AdvReac Verified 04/08/23 14:43 [facility] Medical History (Updated 04/20/23 @ 14:04 by Jose Roberts MD) Pulmonary hypertension ?I27.20 - Pulmonary hypertension, unspecified (ICD-10) Pickwickian syndrome ?E66.2 - Morbid (severe) obesity with alveolar hypoventilation (ICD-10) Chronic constipation ?K59.09 - Other constipation (ICD-10) Eczema ?L30.9 - Dermatitis, unspecified (ICD-10) Sleep apnea ?G47.30 - Sleep apnea, unspecified (ICD-10) Dyspepsia ?R10.13 - Epigastric pain (ICD-10) Obsessive compulsive disorder ?F42.9 - Obsessive-compulsive disorder, unspecified (ICD-10) Bipolar 1 disorder ?F31.9 - Bipolar disorder, unspecified (ICD-10) Hypothyroid ?E03.9 - Hypothyroidism, unspecified (ICD-10) 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, unspecified (ICD-10) ?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 There is no focal neurological symptomatology. There is somewhat of a cough. Oximetry is 93% on room air. We did eventually supplement that with low flow nasal cannula. He does have a bronchospastic type cough. Lungs show some scattered rhonchi. Heart sounds are normal with no murmur. Trunk torso and extremities show no evidence of DVT phlebitis or edema. Skin integument was no petechia purpura rash or exanthem. Neurological there is no focal or lateralizing neurological findings. Screening laboratory testing imaging and lab testing will be done. Constitutional Vital Signs, click to edit/add: Last Vital Signs Temp 97.6 F 04/11/23 07:54 Pulse 73 04/11/23 07:54 Resp 18 04/11/23 07:54 BP 124/57 04/11/23 07:54 Pulse Ox 93 L 04/11/23 07:54 O2 Del Method Room Air 04/11/23 07:54 O2 Flow Rate 1 04/10/23 13:27 Course Course Hospital Course: patient is a 32-year-old male with past medical history of MRDD, bipolar disorder, seasonal ALLERGIES, hypothyroidism who presented to the Emergency Room after having some shortness of breath. Diagnosed with RSV bronchitis and secondary bacterial pneumonia requiring oxygen therapy. Was Septic at initial prevention which resolved with fluids and zosyn. Patient status improved and was able to wean off oxygen. He will be discharged home today on Augmentin 500/125mg BID x 7 days with no changes in home medications. He resides at [facility]. He is to return with any worsening symptoms. At the time of discharge he is Afebrile, vital signs stable, labs stable yesterday. Patient back to baseline Vital Signs Vital signs: Vital Signs Pulse Rate 98 H 04/08/23 14:19 Respiratory Rate 21 04/08/23 14:19 Pulse Oximetry 90 L 04/08/23 14:19 Temperature 97.6 F 04/11/23 07:54 Pulse Rate 73 04/11/23 07:54 Respiratory Rate 18 04/11/23 07:54 Blood Pressure 124/57 04/11/23 07:54 Pulse Oximetry 93 L 04/11/23 07:54 Oxygen Delivery Method Room Air 04/11/23 07:54 Oxygen Delivery Flow Rate 1 04/10/23 13:27 Medical Decision Making MDM Narrative Medical decision making narrative: This patient does have bandemia but no profound left shift in the white blood cell count. There is suggestion of a residual infiltrate on the chest x-ray. RSV testing is positive. At this time evaluation the patient a respiratory panel was pending. The patient did receive some supplemental oxygen and was doing a little bit better. I do not believe this is a complication of the congenital heart disease that he had many years ago. Case was discussed with the hospitalist on-call and they agree for overnight admission and supportive care for further evaluation and treatment Lab Data Labs: Lab Results 04/08/23 04/08/23 04/08/23 Range/Units 14:25 14:28 14:59 WBC 12.1 H (4.0-11.0) 10^3/uL RBC 3.83 L (4.70-6.10) 10^6/uL Hgb 12.8 L (14.0-18.0) g/dL Hct 40.3 L (42.0-54.0) % MCV 105.2 H (80.0-94.0) fL MCH 33.4 (25.9-34.0) pg MCHC 31.8 (29.9-35.2) g/dL RDW 13.2 (11.0-15.0) % Plt Count 238 (150-450) 10^3/uL MPV 9.9 (9.5-13.5) fL Seg Neuts % (Manual) 70.0 Band Neutrophils % 8.0 H (0-5) % Lymphocytes % (Manual) 19.0 L (20.5-60.0) % Monocytes % (Manual) 3.0 (1.7-12.0) % Eosinophils % (Manual) 0.0 L (0.9-7.0) % Basophils % (Manual) 0.0 L (0.2-2.0) % Neutrophils # (Manual) 8.47 H (1.4-6.5) 10^3/uL Band Neutrophils # 1.0 H (0.0-0.3) 10^3/uL Lymphocytes # (Manual) 2.29 (1.20-3.80) 10^3/uL Monocytes # (Manual) 0.36 (0.30-0.80) 10^3/uL Eosinophils # (Manual) 0.00 (0.00-0.70) 10^3/uL Basophils # (Manual) 0.00 (0.00-0.10) 10^3/uL Macrocytosis 2+ VBG pH 7.358 (7.330-7.430) VBG pCO2 55.1 H (40.0-52.0) mmHg Sodium 145 (136-145) mmol/L Potassium 3.8 (3.5-5.1) mmol/L Chloride 104 (98-107) mmol/L Carbon Dioxide 32.4 H (21.0-32.0) mmol/L Anion Gap 12.4 BUN 19.0 H (7.0-18.0) mg/dL Creatinine 1.94 H (0.70-1.30) mg/dL Est GFR ( Amer) 50 L (>=60) Est GFR (Non-Af Amer) 41 L (>=60) BUN/Creatinine Ratio 9.8 Glucose 121 H (74-106) mg/dL Lactate 2.0 (0.4-2.0) mmol/L Calcium 8.7 (8.5-10.1) mg/dL Total Bilirubin 0.3 (0.2-1.0) mg/dL AST 24 (15-37) U/L ALT 23 (16-63) U/L Alkaline Phosphatase 68 (46-116) U/L Troponin I High Sens 40.2 (4.0-76.1) pg/mL NT-Pro-B Natriuret Pep 1072.0 H* (<=450.0) pg/mL Total Protein 7.8 (6.4-8.2) g/dL Albumin 2.6 L (3.4-5.0) g/dL Globulin 5.2 g/dL Albumin/Globulin Ratio 0.5 Procalcitonin 6.17 H (0.00-0.50) ng/mL Adenovirus (PCR) Not detected (NOT DETECTE) C. pneumoniae DNA (PCR) Not detected (NOT DETECTE) Coronavirus Type OC43 Not detected (NOT DETECTE) Coronavirus Type HKU1 Not detected (NOT DETECTE) Coronavirus Type 229E Not detected (NOT DETECTE) Coronavirus Type NL63 Not detected (NOT DETECTE) Human Metapneumovir PCR Not detected (NOT DETECTE) Influenza Type A Ag Negative Influenza Type B Ag Negative M. pneumoniae (PCR) Not detected (NOT DETECTE) Parainfluenza PCR Not detected (NOT DETECTE) Parainfluenza 2 (PCR) Not detected (NOT DETECTE) Parainfluenza 3 (PCR) Not detected (NOT DETECTE) Parainfluenza 4 (PCR) Not detected (NOT DETECTE) RSV (RT-PCR) Detected A* (NOT DETECTE) Entero/Rhino (PCR) Detected A (NOT DETECTE) SARS-CoV-2 (PCR) Not detected (NOT DETECTE) SARS-CoV-2 Ag (CV2AG) Negative (NEGATIVE) Bordetella pertussis (PCR) Not detected (NOT DETECTE) B parapertussis DNA PCR Not detected (NOT DETECTE) Influenza Type A (PCR) Not detected (NOT DETECTE) Influenza Type B (PCR) Not detected (NOT DETECTE) 04/08/23 Range/Units 17:21 WBC (4.0-11.0) 10^3/uL RBC (4.70-6.10) 10^6/uL Hgb (14.0-18.0) g/dL Hct (42.0-54.0) % MCV (80.0-94.0) fL MCH (25.9-34.0) pg MCHC (29.9-35.2) g/dL RDW (11.0-15.0) % Plt Count (150-450) 10^3/uL MPV (9.5-13.5) fL Seg Neuts % (Manual) Band Neutrophils % (0-5) % Lymphocytes % (Manual) (20.5-60.0) % Monocytes % (Manual) (1.7-12.0) % Eosinophils % (Manual) (0.9-7.0) % Basophils % (Manual) (0.2-2.0) % Neutrophils # (Manual) (1.4-6.5) 10^3/uL Band Neutrophils # (0.0-0.3) 10^3/uL Lymphocytes # (Manual) (1.20-3.80) 10^3/uL Monocytes # (Manual) (0.30-0.80) 10^3/uL Eosinophils # (Manual) (0.00-0.70) 10^3/uL Basophils # (Manual) (0.00-0.10) 10^3/uL Macrocytosis VBG pH (7.330-7.430) VBG pCO2 (40.0-52.0) mmHg Sodium (136-145) mmol/L Potassium (3.5-5.1) mmol/L Chloride (98-107) mmol/L Carbon Dioxide (21.0-32.0) mmol/L Anion Gap BUN (7.0-18.0) mg/dL Creatinine (0.70-1.30) mg/dL Est GFR ( Amer) (>=60) Est GFR (Non-Af Amer) (>=60) BUN/Creatinine Ratio Glucose (74-106) mg/dL Lactate 4.6 H* (0.4-2.0) mmol/L Calcium (8.5-10.1) mg/dL Total Bilirubin (0.2-1.0) mg/dL AST (15-37) U/L ALT (16-63) U/L Alkaline Phosphatase (46-116) U/L Troponin I High Sens (4.0-76.1) pg/mL NT-Pro-B Natriuret Pep (<=450.0) pg/mL Total Protein (6.4-8.2) g/dL Albumin (3.4-5.0) g/dL Globulin g/dL Albumin/Globulin Ratio Procalcitonin (0.00-0.50) ng/mL Adenovirus (PCR) (NOT DETECTE) C. pneumoniae DNA (PCR) (NOT DETECTE) Coronavirus Type OC43 (NOT DETECTE) Coronavirus Type HKU1 (NOT DETECTE) Coronavirus Type 229E (NOT DETECTE) Coronavirus Type NL63 (NOT DETECTE) Human Metapneumovir PCR (NOT DETECTE) Influenza Type A Ag Influenza Type B Ag M. pneumoniae (PCR) (NOT DETECTE) Parainfluenza PCR (NOT DETECTE) Parainfluenza 2 (PCR) (NOT DETECTE) Parainfluenza 3 (PCR) (NOT DETECTE) Parainfluenza 4 (PCR) (NOT DETECTE) RSV (RT-PCR) (NOT DETECTE) Entero/Rhino (PCR) (NOT DETECTE) SARS-CoV-2 (PCR) (NOT DETECTE) SARS-CoV-2 Ag (CV2AG) (NEGATIVE) Bordetella pertussis (PCR) (NOT DETECTE) B parapertussis DNA PCR (NOT DETECTE) Influenza Type A (PCR) (NOT DETECTE) Influenza Type B (PCR) (NOT DETECTE) Discharge Plan Discharge Chief Complaint: Shortness of Breath/Dyspnea Clinical Impression: Respiratory syncytial virus (RSV) bronchiolitis Patient Disposition: Admitted As Inpatient Discharge Date/Time: 04/08/23 18:31
--- NOTE | 2023-04-08 14:40 | XR_ITS ---
The [address] [address] Patient Name: FAHAD BERNABE MRN: [id number] date: 1990 Sex: M Assigned Patient Location: ER Current Patient Location: ER Accession/Order Number: [id number] Exam Date: 04/08/2023 14:45 Report Date: 04/08/2023 15:18 At the request of: BIJAN KRAMER Procedure: XR chest 1V EXAM: XR chest 1V HISTORY: Dyspnea fever COMPARISON: 06/01/2021 TECHNIQUE: Dual view of the chest FINDINGS: Low lung volumes. Cardia megaly. Technique accentuates cardiomediastinal silhouette and pulmonary vasculature. No definitive consolidation. No pneumothorax. XR/XR chest 1V IMPRESSION: Limited exam due to technique. Cardiomediastinal and interstitial prominence may be simply related to technique. An atypical infectious process or vascular congestion would be difficult to exclude. Electronically authenticated by: SCHUYLER SIMPSON Date: 04/08/2023 15:18
--- NOTE | 2023-04-08 14:40 | ECG_ITS ---
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
[2023-04-08] MEDS: 0.9 % SODIUM CHLORIDE 1,500 ML 500 ML IV (14:50)
[2023-04-08 15:00] LABS: Hematocrit 40.3 % (42.0-54.0); Hemoglobin 12.8 g/dL (14.0-18.0); Mean Corpuscular HGB Conc 31.8 g/dL (29.9-35.2); Mean Corpuscular Hemoglobin 33.4 pg (25.9-34.0); Mean Corpuscular Volume 105.2 fL (80.0-94.0); Mean Platelet Volume 9.9 fL (9.5-13.5); Platelet Count 238 10^3/uL (150-450); Red Blood Count 3.83 10^6/uL (4.70-6.10); Red Cell Distribution Width 13.2 % (11.0-15.0); White Blood Count 12.1 10^3/uL (4.0-11.0)
[2023-04-08] MEDS: IPRATROPIUM/ALBUTEROL SULFATE 3 ML AMPUL.NEB IH ×2 (15:02→20:39)
[2023-04-08 15:11] LABS: PCO2 VBG 55.1 mmHg (40.0-52.0); pH VBG 7.358 (7.330-7.430)
[2023-04-08 15:18] LABS: Influenza Virus A Antigen Negative; Influenza Virus B Antigen Negative; Internal Control Within Normal Limits; SARS-CoV-2 Ag NEGATIVE (NEGATIVE)
[2023-04-08 15:27] LABS: Alanine Aminotransferase 23 U/L (16-63); Albumin Globulin Ratio 0.5; Albumin Level 2.6 g/dL (3.4-5.0); Alkaline Phosphatase 68 U/L (46-116); Anion Gap 12.4; Aspartate Amino Transferase 24 U/L (15-37); BUN Creatinine Ratio 9.8; Bilirubin Total 0.3 mg/dL (0.2-1.0); Calcium 8.7 mg/dL (8.5-10.1); Carbon Dioxide 32.4 mmol/L (21.0-32.0); Chloride 104 mmol/L (98-107); Estimated GFR (African America 50 (>=60); Estimated GFR (Non-African Ame 41 (>=60); Globulin 5.2 g/dL; Glucose 121 mg/dL (74-106); Potassium 3.8 mmol/L (3.5-5.1); Sodium 145 mmol/L (136-145); Total Protein 7.8 g/dL (6.4-8.2); Troponin I High Sensitivity 40.2 pg/mL (4.0-76.1)
[2023-04-08 16:03] LABS: Lymphocytes Absolute Manual 2.29 10^3/uL (1.20-3.80); Monocytes Absolute Manual 0.36 10^3/uL (0.30-0.80); Segmented Neut Absolute Manual 8.47 10^3/uL (1.4-6.5)
[2023-04-08 16:04] LABS: Macrocytosis 2+
[2023-04-08] MEDS: CEFTRIAXONE 1,000 MG in 0.9 % SODIUM CHLORIDE 50 ML 100 MG IV (16:36)
[2023-04-08 17:51] LABS: Lactate/Lactic Acid 4.6 mmol/L (0.4-2.0)
[2023-04-08 17:53] LABS: Adenovirus NOT DETECTED (NOT DETECTE); Bordetella parapertussis NOT DETECTED (NOT DETECTE); Coronavirus 229E NOT DETECTED (NOT DETECTE); Coronavirus HKU1 NOT DETECTED (NOT DETECTE); Coronavirus NL63 NOT DETECTED (NOT DETECTE); Coronavirus OC43 NOT DETECTED (NOT DETECTE); Human Metapneumovirus NOT DETECTED (NOT DETECTE); Influenza A NOT DETECTED (NOT DETECTE); Influenza B NOT DETECTED (NOT DETECTE); Mycoplasma pneumoniae NOT DETECTED (NOT DETECTE); Parainfluenza Virus 1 NOT DETECTED (NOT DETECTE); Parainfluenza Virus 2 NOT DETECTED (NOT DETECTE); Parainfluenza Virus 3 NOT DETECTED (NOT DETECTE); Parainfluenza Virus 4 NOT DETECTED (NOT DETECTE); SARS-CoV-2 NOT DETECTED (NOT DETECTE)
[2023-04-08 18:49] LABS: Human Rhinovirus/Enterovirus DETECTED (NOT DETECTE)
[2023-04-08 18:51] LABS: Respiratory Syncytial Virus DETECTED (NOT DETECTE)
--- OUTSIDE RECORDS SUMMARY | 2023-04-08 19:01 | XMS_ITS | CCD ---
Author Name Unknown Address [address] [place] [address] Organization [facility] Care Team Providers Care Fire Regulator Name Role Phone Unavailable Unavailable Unavailable JOSE, JOAQUIN Unavailable Unavailable JOSE, JOAQUIN Unavailable Unavailable JOSE, JOAQUIN Unavailable Unavailable Kemp, Iftikhar A Primary Care Provider Unavaila ble Kemp, Iftikhar A Primary Care Provider Iftikhar Kemp DO Primary Care Provider [phone] FRANCK CARBALLO Attending Unavailab le KEMPIFTIKHAR Primary [...] Care Provider MD Thiago Chandler Attending Provider Unavailable Primary Care Provider Unavailabl e PROVIDER, UNKNOWN Admitting Unavailable PROVIDER, UNKNOWN Attending Unavailable PROVIDER, UNKNOWN Admitting Unavailable PROVIDER, UNKNOWN Attending Unavailable DO Iftikhar Kemp A Primary Care Provider Yi, Martha Unavailable DO Iftikhar Kemp Primary Care Provider [phone] MD Thiago Chandler Attending Provider [phone] DO Iftikhar Kemp Primary Care Provider MD Thiago Chandler Attending Provider DAVID, DR IFTIKHAR Otto Admitting Unavailable KEMP, [...] Unavailable DO Iftikhar Kemp Primary Care Provider [phone] MD Thiago Chandler Attending Provider [phone] Thiago Chandler Admitting Unavailable Thiago Chandler Attending Unavailable Iftikhar Kemp Primary Care Unavailable Thiago Chandler Admitting Unavailable Thiago Chandler Attending Unavailable Iftikhar Kemp Primary Care Unavailable Allergies Allergy Classification Reported Allergen(s) Allergy Type Date of Onset Reaction(s) Facility NSAIDs (1 source) Naproxen Drug Allergy 8 [facility] (17 sources) Naproxen; Translations: [NAPROXEN] Drug Allergy 8 [facility] Work Phone: (4 sources) Seasonal allergy Propensity to adverse reactions Unknown [employer] Other (1 source) Naproxen Drug Allergy [facility] (1 source) Naproxen Drug Allergy 0 [facility] Medications Current Medications Medication Drug [...] 12-31-2018 End: 02-22-2019 Biscolax Discontinued 10 MG KS Daily December 31, 2018 4:21pm February 22, 2019 10:10am Start: 12-31-2018 End: 02-22-2019 Biscolax Discontinued 10 MG KS Daily December 31, 2018 12:00am February 22, 2019 9:10am Start: 12-31-2018 End: 02-22-2019 Biscolax Discontinued 10 MG KS Daily December 31, 2018 1:00am February 22, [...] 22, 2019 10:10am take 1 capsule by [facility] every twenty-four hours Gabapentin 100 MG [...] mg by mouth once daily at bedtime [facility] Carbonate Discontinued 300 MG PO Daily at [...] day Active take 2 tablets by mo [facility] once daily LORazepam (ATIVAN) 1 MG tablet [...] MIXTURE given to patient. polyethylene glycol 3350 99910 mg powder for oral solution (1 source) [...] 2 Episodic Other aftercare (4 sources) Other halfway (current) drug therapy; Translations: [OTH SHELTER CURRENT DRUG THERAPY] Onset: 3 Episodic Other [...] CARBAMAZEPINEon 05-18-2022 Carbamezapine 6.9 ug/mL Normal 4.0-12.0 [facility] Comment on above: Result Comment: In c onjunction with other antiepileptic drugs Therapeutic 4.0 - 8.0 Toxicity 9.0 - 12.0 . Carbamazepine alone Therapeutic 8.0 - 12.0 . Detection Limit = 2.0 <2.0 indicates None Detected Performed By: #### C ARBLC #### [facility] [address] [place] [address] Dr. Chase Pedro LITHIUMon 05-18-2022 [place] [facility] (Eskalith(R)), Serum 0.7 mmol/L Normal 0.5-1.2 [facility] Comment on above: Result Comment: A co ncentration of 0.5-0.8 mmol/L is advised for long-term use; concentrations of up to 1.2 mmol/L may be necessary during acute treatment. Detection Limit = 0.1 <0.1 indicates None Detected Performed By: #### L ITHIUM #### [facility] [address] [place] [address] Dr. Chase Pedro CBC AUTO DIFFon 05-17-2022 BASO # 0.1 103/ul Normal 0.0-0.1 [facility] Comment on above: Performed By: #### C BC #### [facility] [address] [place] [address] Dr. Chase Pedro Basophils/100 WBC (Bld) 1.2 % Normal 0.2-2.0 [facility] Comment on above: Performed By: #### C BC #### [facility] [address] [place] [address] Dr. Chase Pedro EO # 0.0 103/ul Normal 0.0-0.7 [facility] Comment on above: Performed By: #### C BC #### [facility] [address] [place] [address] Dr. Chase Pedro Eosinophils/100 WBC (Bld) 0.2 % Critically low 0.9-7.0 [facility] Comment on above: Performed By: #### C BC #### [facility] [address] [place] [address] Dr. Chase Pedro Erythrocyte distribution width (RBC) [Ratio] 12.8 % Normal 11.0-15.0 [facility] Comment on above: Performed By: #### C BC #### [facility] [address] [place] [address] Dr. Chase Pedro Hematocrit (Bld) [Volume fraction] 42.5 % Normal 42.0-54.0 [facility] Comment on above: Performed By: #### C BC #### [facility] [address] [place] [address] Dr. Chase Pedro Hemoglobin (Bld) [Mass/Vol] 13.8 g/dL Critically low 14.0-18.0 [facility] Comment on above: Performed By: #### C BC #### [facility] [address] [place] [address] Dr. Chase Pedro IG # 0.02 10e3/ul Normal 0.00-0.03 [facility] Comment on above: Performed By: #### C BC #### [facility] [address] [place] [address] Dr. Chase Pedro IG % 0.4 % Normal 0.0-0.5 [facility] Comment on above: Performed By: #### C BC #### [facility] [address] [place] [address] Dr. Chase Pedro LYMPH # 2.3 103/ul Normal 1.2-3.8 [facility] Comment on above: Performed By: #### C BC #### [facility] [address] [place] [address] Dr. Chase Pedro Lymphocytes/100 WBC (Bld) 45.8 % Normal 20.5-60.0 [facility] Comment on above: Performed By: #### C BC #### [facility] [address] [place] [address] Dr. Chase Pedro MANUAL DIFF REQ NO Normal [facility] Comment on above: Performed By: #### C BC #### [facility] [address] [place] [address] Dr. Chase Pedro MCH (RBC) [Entitic mass] 33.8 pg Normal 25.9-34.0 [facility] Comment on above: Performed By: #### C BC #### [facility] [address] [place] [address] Dr. Chase Pedro MCHC (RBC) [Mass/Vol] 32.5 g/dL Normal 29.9-35.2 [facility] Comment on above: Performed By: #### C BC #### [facility] [address] [place] [address] Dr. Chase Pedro MCV (RBC) [Entitic vol] 104.2 fL Critically high 80.0-94.0 [facility] Comment on above: Performed By: #### C BC #### [facility] [address] [place] [address] Dr. Chase Pedro MONO # 0.3 103/ul Normal 0.3-0.8 [facility] Comment on above: Performed By: #### C BC #### [facility] [address] [place] [address] Dr. Chase Pedro Monocytes/100 WBC (Bld) 5.7 % Normal 1.7-12.0 [facility] Comment on above: Performed By: #### C BC #### [facility] [address] [address] [address] Chase Pedro NEUT # 2.3 103/ul Normal 1.4-6.5 [facility] Comment on above: Performed By: #### C BC #### [facility] [address] [address] [address] Chase Pedro Neutrophils/100 WBC (Bld) 46.7 % Normal 43.0-75.0 [facility] Comment on above: Performed By: #### C BC #### [facility] [address] [place] [address] Dr. Chase Pedro Platelet mean volume (Bld) [Entitic vol] 9.2 fL Critically low 9.5-13.5 [facility] Comment on above: Performed By: #### C BC #### [facility] [address] [place] [address] Dr. Chase Pedro PLT 288 103/ul Normal 150-450 [facility] Comment on above: Performed By: #### C BC #### [facility] [address] [place] [address] Dr. Chase Pedro RBC 4.08 106/ul Critically low 4.70-6.10 [facility] Comment on above: Performed By: #### C BC #### [facility] [address] [place] [address] Dr. Chase Pedro WBC 4.9 103/ul Normal 4.0-11.0 [facility] Comment on above: Performed By: #### C BC #### [facility] [address] [place] [address] Dr. Chase Pedro DEPAKENE/ VALPROIC ACIDon DEPAKENE 56.7 ug/ml Normal 50.0-100.0 [facility] Comment on above: Performed By: #### C MP, TSH, VALP #### [facility] [address] [place] [address] Dr. Chase Pedor PROF 14(COMP METB)on 023 Albumin [Mass/Vol] 3.5 g/dL Normal 3.4-5.0 [facility] Comment on above: Performed By: #### C MP, TSH, VALP #### [facility] [address] [address] [address] Chase Pedro Albumin/Globulin [Mass ratio] 0.8 {ratio} Normal [facility] Comment on above: Performed By: #### C MP, TSH, VALP #### [facility] [address] [address] [address] Chase Pedro ALP [Catalytic activity/Vol] 110 U/L Normal 46-116 [facility] Comment on above: Performed By: #### C MP, TSH, VALP #### [facility] [address] [address] [address] Chase Pedro ALT [Catalytic activity/Vol] 18 U/L Normal 16-63 [facility] Comment on above: Performed By: #### C MP, TSH, VALP #### [facility] [address] [address] [address] Chase Pedro Anion gap [Moles/Vol] 8.0 mmol/L Normal [facility] Comment on above: Performed By: #### C MP, TSH, VALP #### [facility] [address] [address] [address] Chase Pedro AST [Catalytic activity/Vol] 12 U/L Critically low 15-37 [facility] Comment on above: Performed By: #### C MP, TSH, VALP #### [facility] [address] [address] [address] Chase Pedro Bilirubin [Mass/Vol] 0.3 mg/dL Normal 0.2-1.0 [facility] Comment on above: Performed By: #### C MP, TSH, VALP #### [facility] [address] [address] [address] Chase Pedro Calcium [Mass/Vol] 9.3 mg/dL Normal 8.5-10.1 [facility] Comment on above: Performed By: #### C MP, TSH, VALP #### [facility] [address] [address] [address] Chase Pedro Chloride [Moles/Vol] 107 mmol/L Normal 98-107 [facility] Comment on above: Performed By: #### C MP, TSH, VALP #### [facility] [address] [place] [address] Dr. Chase Pedro CO2 [Moles/Vol] 36.9 mmol/L Critically high 21.0-32.0 [facility] Comment on above: Performed By: #### C MP, TSH, VALP #### [facility] [address] [place] [address] Dr. Chase Pedro Creatinine [Mass/Vol] 1.46 mg/dL Critically high 0.70-1.30 [facility] Comment on above: Performed By: #### C MP, TSH, VALP #### [facility] [address] [place] [address] Dr. Chase Pedro EGFR-AF [place]UESE >60 Normal >=60 [facility] Comment on above: Performed By: #### C MP, TSH, VALP #### [facility] [address] [place] [address] Dr. Chase Pedro EGFR-NON AF [place]UES[place] 57 mL/min/1.73m2 Critically low >=60 [facility] Comment on above: Performed By: #### C MP, TSH, VALP #### [facility] [address] [place] [address] Dr. Chase Pedro Globulin (S) [Mass/Vol] 4.4 g/dL Normal [facility] Comment on above: Performed By: #### C MP, TSH, VALP #### [facility] [address] [place] [address] Dr. Chase Pedro Glucose [Mass/Vol] 94 mg/dL Normal 74-106 [facility] Comment on above: Performed By: #### C MP, TSH, VALP #### [facility] [address] [place] [address] Dr. Chase Pedro Potassium [Moles/Vol] 3.9 mmol/L Normal 3.5-5.1 [facility] Comment on above: Performed By: #### C MP, TSH, VALP #### [facility] [address] [place] [address] Dr. Chase Pedro Protein [Mass/Vol] 7.9 g/dL Normal 6.4-8.2 [facility] Comment on above: Performed By: #### C MP, TSH, VALP #### [facility] [address] [place] [address] Dr. Chase Pdero Sodium [Moles/Vol] 148 mmol/L Critically high 136-145 [facility] Comment on above: Performed By: #### C MP, TSH, VALP #### [facility] [address] [place] [address] Dr. Chase Pedro Urea nitrogen [Mass/Vol] 17.0 mg/dL Normal 7.0-18.0 [facility] Comment on above: Performed By: #### C MP, TSH, VALP #### [facility] [address] [place] [address] Dr. Chase Pedro Urea nitrogen/Creatinine [Mass ratio] 11.6 mg/mg Normal [facility] Comment on above: Performed By: #### C MP, TSH, VALP #### [facility] [address] [place] [address] Dr. Chase Pedro TSHon 05-17-2022 TSH 0.725 uIU/mL Normal 0.358-3.740 [facility] Comment on above: Performed By: #### C MP, TSH, VALP #### [facility] [address] [place] [address] Dr. Chase Pedro Progress Noteson 09-22-2021 Web[employer] Administrator Authentication Interface Message Text ----- Wednesday, September 22, 2021 at 11:33:21 AM ----- ----- Provider: Resident Kai -- Clinic: [place] ----- COMPOSITE ORIENTAL ORTHODOX Patient is scheduled for [facility] on tooth #22-MDF, 23-MDF, 24-MDF, 25-MDF, 26-MDF and 27 surface MDF. Reviewed Medical History. Pt exhibited the following conditions: Mental Disorders Patient is ready for treatment. Topical Benzocaine gel applied at the injection site for 2 minutes. Administered 1 carpules of Lidocaine, 2% with Epinephrine 1:100,000,. Decay/existing mandaeism removed, cavity prepared. Selectively etched enamel with 37% phosphoric acid, rinsed, and blot dried. OptiBond davidson applied and light-cured. Condensed packable composite shade in light cured increments using Mylar strip and wedge. Finished with finishing burs, checked occlusion, verified proximal contacts and mandaeism was polished. Rinsed and suctioned intraorally, advised [...] ----- Provider: Emeterio Zapata DDS -- Clinic: [place] ----- Normal The [employer] WOUND CULTUREon 07-18-2021 Antimicrobial Susceptibility Comment Normal [facility] Comment on above: Result Comment: S = Susceptible; I = Intermediate; R = Resistant P = Positive; N = Negative MICS are expressed in micrograms per mL Antibiotic RSLT#1 RSLT#2 RSLT#3 RSLT#4 Penicillin S Vancomycin S Performed By: #### C XWND #### [facility] [address] [place] [address] Dr. Chase Pedro Bacteria identified Aer cx Nom (Unsp spec) Final report Abnormal [facility] Comment on above: Performed By: #### C XWND #### [facility] [address] [address] [address] Chase Pedro Result 1 Enterococcus faecalis Abnormal [facility] Comment on above: Result Comment: For Enterococcus species, aminoglycosides (except for high-level resistance screening), cephalosporins, clindamycin, and trimethoprim-sulfamethoxazole are not effective clinically. (CLSI, [id number], 2016) Heavy growth Performed By: #### C XWND #### [facility] [address] [address] [address] Chase Pedro Progress Noteson 06-08-2021 Websphere Administrator Authentication Interface Message Text [facility], Pt is ready for tx PT is [...] 6 month recall. Examination completed by /[facility]: mian ----- Signed on Tuesday, June 08, 2021 at 2:17:56 PM ----- ----- Provider: Emeterio Zapata DDS -- Clinic: [place] ----- Normal The [employer] [facility] XR MODIFIED BARIUM SWALLOWon 05-06-2021 XR [...] on MonMay 06, 2021 2:54:29 PM EDT [facility] Comment on above: Order Comment: Injur y/Trauma [...] shotty mediastinal and hilar lymph nodes. The office services representative conglomeration of 2 lymph nodes in [...] pneumomediastinum. Cardiomegaly, significant for the patient's age. [employer] Workstation ID: [id number] Dictated by: BERNADETTE ARANA on MonMay 05, 2021 2:07:05 PM EDT Transcribed by: NIKI QUESADA on MonMay 05, 2021 2:30:07 PM EDT Finalized by: BERNADETTE ARANA on MonMay 05, 2021 2:37:50 PM EDT Normal [facility] Comment on above: Order Comment: Injur [...] on MonMay 04, 2021 8:43:37 PM EDT [facility] Comment on above: Order Comment: Injur y/Trauma [...] SARS-CoV-2/Flu/RSV plus RT-PCR Cepheid assay on the [employer] Xpress System. This test has not been approved for use in asymptomatic patients and its performance in this patient population has not been evaluated. Negative results do not rule out the presence of SARS-CoV-2/COVID-19. Fact sheets for this EUA can be found at the following links: For Healthcare Providers: https://www.fda.gov/ media/497641/downloa d For Patients: https://www.fda.gov/ media/955215/downloa d [facility] Comment on above: Performed By: #### L [id number] #### [facility] [address] [place], [place] [address] Liam Casas M.D. [id number] XR CHEST PA/APon 05-02-2021 XR CHEST PA/AP [...] left lung base. Findings consistent with pneumonia. [employer] Workstation ID: [id number] Dictated by: FRANCK JEFFERS on [employer] May 02, 2021 1:44:03 PM EDT Transcribed by: CAMI CHAHAL on [employer] May 02, 2021 1:47:37 PM EDT Finalized by: FRANCK JEFFERS on [employer] May 02, 2021 2:44:35 PM EDT Normal [facility] Comment on above: Order Comment: Fully [...] refer to the speech pathologist's detailed report. [employer] Workstation ID: [id number] [facility] EXAMINATION: XR MODIFIED BARIUM SWALLOW HISTORY: [...] no radiographic evidence of tracheal aspiration/penetrati on. [facility] Interface, Rad In [employer] Speechq - [...] refer to the speech pathologist's detailed report. [employer] Workstation ID: [id number] [facility] XR MODIFIED BARIUM SWALLOWon 07-08-2020 XR [...] refer to the speech pathologist's detailed report. [employer] Workstation ID: [id number] Dictated by: BERNADETTE ARANA on MonJuly 08, 2020 7:29:57 PM EDT Transcribed by: CAMI CHAHAL on MonJuly 08, 2020 7:30:41 PM EDT Finalized by: BERNADETTE ARANA on MonJuly 08, 2020 8:40:23 PM EDT [facility] Comment on above: Order Comment: ROULA Villanueva ORDER Injury/Trauma or Illness?:Illness/Other How long have you had these symptoms (acute/chronic)?:Acute Reason for exam?: Dyspepsia Type of Exam?:Ongoing Additional signs and symptoms?: Dyspepsia Fluoro time in minutes:.4 40 seconds fluoro Fluoro dose in mGy?:22.92 Basic Metabolic Panelon 02-13 Anion gap [Moles/Vol] 7 mmol/L Low 10 - 20 mmol/L [facility] Calcium [Mass/Vol] 9.2 mg/dL 8.4 - 10. 2 mg/dL [facility] Chloride [Moles/Vol] 98 mmol/L 98 - 108 mmol/L [facility] Creatinine [Mass/Vol] 1.56 mg/dL High 0.5 - 1.3 mg/dL [facility] GFR/1.73 sq M predicted among non-blacks MDRD (S/P/Bld) [Vol rate/Area] The eGFR should be used for monitoring renal function only and not for medication dosing. [facility] GFR/1.73 sq M.predicted CKD-EPI (S/P/Bld) [Vol rate/Area] 60 >=60 mL/min/1.73 m2 [facility] Glucose [Mass/Vol] 102 mg/dL High 65 - 99 mg/dL [facility] HCO3 [Moles/Vol] 40 mmol/L High 21 - 32 mmol/L [facility] Potassium [Moles/Vol] 4.0 mmol/L 3.5 - 5.1 mmol/L [facility] Sodium [Moles/Vol] 141 mmol/L 135 - 145 mmol/L [facility] Urea nitrogen [Mass/Vol] 28 mg/dL High 8 - 25 mg/dL [facility] Urea nitrogen/Creatinine [Mass ratio] 17.9 mg/mg [facility] CBC WITH AUTO DIFFERENTIALon 03-01-2019 Basophils (Bld) [#/Vol] 0.05 10*3/uL [facility] Basophils/100 WBC (Bld) 0.7 % [facility] Eosinophils (Bld) [#/Vol] 0.08 10*3/uL [facility] Eosinophils/100 WBC (Bld) 1.2 % [facility] Erythrocyte distribution width (RBC) [Entitic vol] 14.2 % 11.6 - 14.8 % [facility] Hematocrit (Bld) [Volume fraction] 41.3 % 41 - 53 % [facility] Hemoglobin (Bld) [Mass/Vol] 13.2 g/dL Low 13.5 - 17.5 g/dL [facility] Immature granulocytes (Bld) [#/Vol] 0.06 10*3/uL [facility] Immature granulocytes/100 WBC (Bld) 0.90 % [facility] Comment on above: The IG parameter is the percentage of metamyelocytes, myelocytes, and promyelocytes. Interpretation and review of laboratory results Abnormal [facility] Lymphocytes (Bld) [#/Vol] 1.76 10*3/uL [facility] Lymphocytes/100 WBC (Bld) 26.2 % [facility] MCH (RBC) [Entitic mass] 32.3 pg 26 - 34 pg [facility] MCHC (RBC) [Mass/Vol] 32.0 g/dL 31 - 37 g/dL [facility] MCV (RBC) [Entitic vol] 101.0 fL High 80 - 100 fL [facility] Monocytes (Bld) [#/Vol] 0.65 10*3/uL [facility] Monocytes/100 WBC (Bld) 9.7 % [facility] Neutrophils (Bld) [#/Vol] 4.12 10*3/uL [facility] Neutrophils/100 WBC (Bld) 61.3 % [facility] Nucleated RBC (Bld) [#/Vol] 0.00 10*3/uL [facility] Nucleated RBC/100 WBC (Bld) [Ratio] 0.0 % [facility] Platelet mean volume (Bld) [Entitic vol] 9.6 fL 9 - 15.5 fL [facility] Platelets (Bld) [#/Vol] 355 10*3/uL [facility] RBC (Bld) [#/Vol] 4.09 10*6/uL Low [facility] eah WBC (Bld) [#/Vol] 6.72 10*3/uL [facility] ealth Magnesium Levelon 03-01-2019 Magnesium [Mass/Vol] 2.5 mg/dL High 1.6 - 2.4 mg/dL [facility] Otheron 03-01-2019 Interpretation and review of laboratory results Abnormal [facility] Phosphoruson 03-01-2019 Interpretation and review of laboratory results Normal [facility] Phosphate [Mass/Vol] 4.2 mg/dL 2.7 - 4.5 mg/dL [facility] Basic Metabolic Panelon 02-13 Anion gap [Moles/Vol] 8 mmol/L Low 10 - 20 mmol/L [facility] Calcium [Mass/Vol] 9.2 mg/dL 8.4 - 10. 2 mg/dL [facility] Chloride [Moles/Vol] 99 mmol/L 98 - 108 mmol/L [facility] Creatinine [Mass/Vol] 1.54 mg/dL High 0.5 - 1.3 mg/dL [facility] GFR/1.73 sq M predicted among non-blacks MDRD (S/P/Bld) [Vol rate/Area] The eGFR should be used for monitoring renal function only and not for medication dosing. [facility] GFR/1.73 sq M.predicted CKD-EPI (S/P/Bld) [Vol rate/Area] 61 >=60 mL/min/1.73 m2 [facility] Glucose [Mass/Vol] 95 mg/dL 65 - 99 mg/dL [facility] HCO3 [Moles/Vol] 38 mmol/L High 21 - 32 mmol/L [facility] Potassium [Moles/Vol] 4.1 mmol/L 3.5 - 5.1 mmol/L [facility] Sodium [Moles/Vol] 141 mmol/L 135 - 145 mmol/L [facility] Urea nitrogen [Mass/Vol] 27 mg/dL High 8 - 25 mg/dL [facility] Urea nitrogen/Creatinine [Mass ratio] 17.5 mg/mg [facility] CBC WITH AUTO DIFFERENTIALon 02-28-2019 Basophils (Bld) [#/Vol] 0.06 10*3/uL [facility] Basophils/100 WBC (Bld) 1.0 % [facility] Eosinophils (Bld) [#/Vol] 0.07 10*3/uL [facility] Eosinophils/100 WBC (Bld) 1.2 % [facility] Erythrocyte distribution width (RBC) [Entitic vol] 14.5 % 11.6 - 14.8 % [facility] Hematocrit (Bld) [Volume fraction] 41.4 % 41 - 53 % [facility] Hemoglobin (Bld) [Mass/Vol] 13.1 g/dL Low 13.5 - 17.5 g/dL [facility] Immature granulocytes (Bld) [#/Vol] 0.07 10*3/uL [facility] Immature granulocytes/100 WBC (Bld) 1.20 % [facility] Comment on above: The IG parameter is the percentage of metamyelocytes, myelocytes, and promyelocytes. Lymphocytes (Bld) [#/Vol] 2.12 10*3/uL [facility] Lymphocytes/100 WBC (Bld) 35.6 % [facility] MCH (RBC) [Entitic mass] 32.4 pg 26 - 34 pg [facility] MCHC (RBC) [Mass/Vol] 31.6 g/dL 31 - 37 g/dL [facility] MCV (RBC) [Entitic vol] 102.5 fL High 80 - 100 fL [facility] Monocytes (Bld) [#/Vol] 0.40 10*3/uL [facility] Monocytes/100 WBC (Bld) 6.7 % [facility] Neutrophils (Bld) [#/Vol] 3.23 10*3/uL [facility] Neutrophils/100 WBC (Bld) 54.3 % [facility] Nucleated RBC (Bld) [#/Vol] 0.00 10*3/uL [facility] Nucleated RBC/100 WBC (Bld) [Ratio] 0.0 % [facility] Platelet mean volume (Bld) [Entitic vol] 9.6 fL 9 - 15.5 fL [facility] Platelets (Bld) [#/Vol] 383 10*3/uL [facility] RBC (Bld) [#/Vol] 4.04 10*6/uL Low [facility] WBC (Bld) [#/Vol] 6.20 10*3/uL [facility] Magnesium Levelon 02-28-2019 Magnesium [Mass/Vol] 2.6 mg/dL High 1.6 - 2.4 mg/dL [facility] Otheron 02-28-2019 Interpretation and review of laboratory results Abnormal [facility] Phosphoruson 02-28-2019 Phosphate [Mass/Vol] 4.7 mg/dL High 2.7 - 4.5 mg/dL [facility] Basic Metabolic Panelon 02-13 Anion gap [Moles/Vol] 7 mmol/L Low 10 - 20 mmol/L [facility] Calcium [Mass/Vol] 9.2 mg/dL 8.4 - 10. 2 mg/dL [facility] Chloride [Moles/Vol] 101 mmol/L 98 - 108 mmol/L [facility] Creatinine [Mass/Vol] 1.54 mg/dL High 0.5 - 1.3 mg/dL [facility] GFR/1.73 sq M predicted among non-blacks MDRD (S/P/Bld) [Vol rate/Area] The eGFR should be used for monitoring renal function only and not for medication dosing. [facility] GFR/1.73 sq M.predicted CKD-EPI (S/P/Bld) [Vol rate/Area] 61 >=60 mL/min/1.73 m2 [facility] Glucose [Mass/Vol] 104 mg/dL High 65 - 99 mg/dL [facility] HCO3 [Moles/Vol] 40 mmol/L High 21 - 32 mmol/L [facility] Interpretation and review of laboratory results Abnormal [facility] Potassium [Moles/Vol] 4.0 mmol/L 3.5 - 5.1 mmol/L [facility] Sodium [Moles/Vol] 144 mmol/L 135 - 145 mmol/L [facility] Urea nitrogen [Mass/Vol] 24 mg/dL 8 - 25 mg/dL [facility] Urea nitrogen/Creatinine [Mass ratio] 15.6 mg/mg [facility] NT Pro BNPon 02-26-2019 Interpretation and review of laboratory results Normal [facility] Natriuretic peptide.B prohormone N-Terminal [Mass/Vol] 67 pg/mL 0 - 300 pg/mL [facility] Pride Study Cut-offs Rule In: < /= 50 Years >450 pg/mL 51 Years - 75 Years >900 pg/mL 76 Years - 99 Years >1800 pg/mL Rule Out: All patients <300 pg/mL [facility] ECHOCARDIOGRAM 2D COMPLETEon 02-25-2019 [facility] - 02/25/2019 1:[address] [address] [place] [address] ----- ECHOCARDIOGRAPHY REPORT - [facility] ----- Name: FAHAD BERNABE Age: 28 years Date: 02/25/2019 [facility] #: [id number] : 1990 Room: [address] [place] [address] #: [id number] Sex: M Tech: Gary Calvillo Ordering Physician: [id number] HOLDEN HINTON Height: 57.00 in Sys BP: 124 MARLENE cc: , Weight: 264.00 Nidia BP: 79 Reading Physician: [id number] Kate Marrero MD/ Rhythm: Electronically Signed by: [id number] Kate Marrero MD BSA: 2.02 m on: [...] LA Index (BP) 29.8 ml/m TAPSE LAESV PRODUCER ASSISTANT NOTES: Definity (if used): 1ml Final IMPRESSION: Poor quality, apical views borderline nondiagnostic. Definity given [id number] [place] [id number] ECHOCARDIOGRAPHY REPORT - [facility] Name: FAHAD BERNABE Age: 28 years Date: 02/25/2019 Hospital #: [id number] : 1990 Room: [address] [place] [address] #: [id number] Sex: M Tech: Gary Calvillo Ordering Physician: [id number] HOLDEN HINTON Height: 57.00 in Sys BP: 124 MARLENE cc: , Weight: 264.00 Nidia BP: 79 Reading Physician: [id number] Marrero MD/ Rhythm: Electronically Signed by: Basilia [...] LA Index (BP) 29.8 ml/m TAPSE LAESV PRODUCER ASSISTANT NOTES: Definity (if used): 1ml Final [facility] Poor quality, apical views borderline nondiagnostic. Definity given [facility] [place] Levelon 02-25-2019 Interpretation and review of laboratory results Abnormal [facility] [place] [Moles/Vol] 0.5 mmol/L Low 0.6 - 1. 2 mmol/L [facility] POC ARTERIAL BLOOD GAS PANEL -[facility] 02-25-2019 Base excess Calc (Bld) [Moles/Vol] 12.9 mmol/L High [facility] Breath rate setting Ventilator synchronized intermittent mandatory 0 [facility] CO2 (Bld) [Partial pressure] 71.3 mm[Hg] High [facility] HCO3 (Bld) [Moles/Vol] 41.1 mmol/L High 22 - 26 mmol/L [facility] Hematocrit (BldA) [Volume fraction] 37.2 % Low 41 - 53 % [facility] Hemoglobin (Bld) [Mass/Vol] 12.1 g/dL Low 13.5 - 18 g/dL [facility] Inhaled oxygen concentration 0 % [facility] Inhaled oxygen flow rate 4 L/min [facility] Interpretation and review of laboratory results Abnormal [facility] Oxygen (Bld) [Partial pressure] 94 mm[Hg] [facility] pH (Bld) 7.37 [pH] [facility] SaO2% (BldA) [Mass fraction] 97.2 % 92 - 99 % [facility] Specimen source Nom (Unsp spec) Radial, left [facility] Tidal volume setting Ventilator 0 [facility] Base excess Calc (Bld) [Moles/Vol] 9.5 mmol/L High [facility] Breath rate setting Ventilator synchronized intermittent mandatory 0 [facility] CO2 (Bld) [Partial pressure] 61.8 mm[Hg] High [facility] HCO3 (Bld) [Moles/Vol] 36.7 mmol/L High 22 - 26 mmol/L [facility] Hematocrit (BldA) [Volume fraction] 37.1 % Low 41 - 53 % [facility] Hemoglobin (Bld) [Mass/Vol] 12.1 g/dL Low 13.5 - 18 g/dL [facility] Inhaled oxygen concentration 0 % [facility] Inhaled oxygen flow rate 2 L/min [facility] Interpretation and review of laboratory results Abnormal [facility] Oxygen (Bld) [Partial pressure] 73 mm[Hg] Low [facility] pH (Bld) 7.38 [pH] [facility] SaO2% (BldA) [Mass fraction] 95.2 % 92 - 99 % [facility] Specimen source Nom (Unsp spec) Radial, left [facility] Tidal volume setting Ventilator 0 [facility] XR MODIFIED BARIUM SWALLOWon 02-25-2019 Recommendation is diet per Speech Pathology. Modified barium swallow study as described above. Please see Speech Pathologist report for complete details. MWK/pji Workstation ID: [id number] [facility] EXAMINATION: XR MODIFIED BARIUM SWALLOW HISTORY: [...] 506. FINDINGS: The oral phase demonstrated slow xwfbfsbx-ls-xeuehibg r transit with posterior fall off into the pharynx with large volumes. The pharyngeal phase demonstrated no significant residue was seen following swallowing. There was some flash penetration seen with the thin liquid when a large volume was ingested. Aspiration was not seen during the examination. [facility] Interface, Rad In Fuji Speechq - [...] 506. FINDINGS: The oral phase demonstrated slow grwsplsv-hv-pqubebeq r transit with posterior fall off into [...] see Speech Pathologist report for complete details. [employer] Workstation ID: [id number] [facility] CBC WITH AUTO DIFFERENTIALon 02-24-2019 Basophils (Bld) [#/Vol] 0.02 10*3/uL [facility] Basophils/100 WBC (Bld) 0.3 % [facility] Eosinophils (Bld) [#/Vol] 0.04 10*3/uL [facility] Eosinophils/100 WBC (Bld) 0.7 % [facility] Erythrocyte distribution width (RBC) [Entitic vol] 14.7 % 11.6 - 14.8 % [facility] Hematocrit (Bld) [Volume fraction] 38.2 % Low 41 - 53 % [facility] Hemoglobin (Bld) [Mass/Vol] 11.8 g/dL Low 13.5 - 17.5 g/dL [facility] Immature granulocytes (Bld) [#/Vol] 0.05 10*3/uL [facility] Immature granulocytes/100 WBC (Bld) 0.80 % [facility] Comment on above: The IG parameter is the percentage of metamyelocytes, myelocytes, and promyelocytes. Interpretation and review of laboratory results Abnormal [facility] Lymphocytes (Bld) [#/Vol] 1.37 10*3/uL [facility] Lymphocytes/100 WBC (Bld) 23.2 % [facility] MCH (RBC) [Entitic mass] 32.2 pg 26 - 34 pg [facility] MCHC (RBC) [Mass/Vol] 30.9 g/dL Low 31 - 37 g/dL [facility] MCV (RBC) [Entitic vol] 104.1 fL High 80 - 100 fL [facility] Monocytes (Bld) [#/Vol] 0.55 10*3/uL [facility] Monocytes/100 WBC (Bld) 9.3 % [facility] Neutrophils (Bld) [#/Vol] 3.87 10*3/uL [facility] Neutrophils/100 WBC (Bld) 65.7 % [facility] Nucleated RBC (Bld) [#/Vol] 0.00 10*3/uL [facility] Nucleated RBC/100 WBC (Bld) [Ratio] 0.0 % [facility] Platelet mean volume (Bld) [Entitic vol] 9.4 fL 9 - 15.5 fL [facility] Platelets (Bld) [#/Vol] 233 10*3/uL [facility] RBC (Bld) [#/Vol] 3.67 10*6/uL Low [facility] WBC (Bld) [#/Vol] 5.90 10*3/uL [facility] Comprehensive Metabolic Pane rachel 02-24-2019 Albumin [Mass/Vol] 2.8 g/dL Low 3.2 - 5.2 g/dL [facility] ALP [Catalytic activity/Vol] 80 U/L 40 - 140 U/L [facility] ALT [Catalytic activity/Vol] 20 U/L 14 - 65 U/L [facility] Anion gap [Moles/Vol] 7 mmol/L Low 10 - 20 mmol/L [facility] AST [Catalytic activity/Vol] 12 U/L 0 - 45 U/L [facility] Bilirubin [Mass/Vol] 0.2 mg/dL 0 - 1.3 mg/dL [facility] Calcium [Mass/Vol] 8.8 mg/dL 8.4 - 10. 2 mg/dL [facility] Chloride [Moles/Vol] 106 mmol/L 98 - 108 mmol/L [facility] Creatinine [Mass/Vol] 1.26 mg/dL 0.5 - 1.3 mg/dL [facility] GFR/1.73 sq M predicted among non-blacks MDRD (S/P/Bld) [Vol rate/Area] The eGFR should be used for monitoring renal function only and not for medication dosing. [facility] GFR/1.73 sq M.predicted CKD-EPI (S/P/Bld) [Vol rate/Area] 78 >=60 mL/min/1.73 m2 [facility] Glucose [Mass/Vol] 99 mg/dL 65 - 99 mg/dL [facility] HCO3 [Moles/Vol] 34 mmol/L High 21 - 32 mmol/L [facility] Interpretation and review of laboratory results Abnormal [facility] Potassium [Moles/Vol] 4.3 mmol/L 3.5 - 5.1 mmol/L [facility] Protein [Mass/Vol] 7.8 g/dL 6 - 8 g/dL [facility] Sodium [Moles/Vol] 143 mmol/L 135 - 145 mmol/L [facility] Urea nitrogen [Mass/Vol] 12 mg/dL 8 - 25 mg/dL [facility] Urea nitrogen/Creatinine [Mass ratio] 9.5 mg/mg Low [facility] Hemoglobin A1con 02-24-2019 Average glucose Estimated from glycated hemoglobin mass conc (Bld) 117 mg/dL High 68 - 114 mg/dL [facility] HbA1c (Bld) [Mass fraction] 5.7 % High 4 - 5.6 % [facility] Interpretation and review of laboratory results Abnormal [facility] Normal: 4.0% - 5.6% Increased risk for diabetes: 5.7% - 6.4% Diabetes: >= 6.5% Pediatrics: No established reference range Estimated average glucose: 68-114 mg/dL [facility] INFLUENZA A,B RAPID MOLECULA Jesus 02-24-2019 FLUAV RNA EDER+probe Ql (Unsp spec) Not Detected Not Detected [facility] FLUBV RNA EDER+probe Ql (Unsp spec) Not Detected Not Detected [facility] Interpretation and review of laboratory results Normal [facility] Test Method: Nucleic Acid Amplification [facility] LEGIONELLA ANTIGEN, URINEon 02-24-2019 L. pneumophila Ag Ql (U) Negative Negative for Legionella antigen [facility] Comment on above: COMMENT: Results may be affected if patient is on diuretics. INTERPRETATION OF RESULTS: Test detects Legionella pneumophilia serogroup 1 antigens in urine. Legionnaires disease cannot be ruled out since other serogroups and species may also cause disease. Magnesiumon 02-24-2019 Magnesium [Mass/Vol] 2.2 mg/dL 1.6 - 2.4 mg/dL [facility] Otheron 02-24-2019 Interpretation and review of laboratory results Normal [facility] Interpretation and review of laboratory results Normal [facility] Phosphoruson 02-24-2019 Phosphate [Mass/Vol] 4.1 mg/dL 2.7 - 4.5 mg/dL [facility] S.PNEUMONIAE URINE ANTIGENon 02-24-2019 S. pneumoniae Ag Ql (U) Negative Presumptive Negative for Pneumococcal pneumoniae [facility] Comment on above: A negative result jimenes ggests no current or recent pneumococcal infection. A negative result does not rule out Streptococcus pneumoniae infection since the antigen present in the sample may be below the detection limit of the test. TSHon 02-24-2019 TSH Qn 2.18 m[IU]/L [facility] Valproic Acid Levelon 2019 Interpretation and review of laboratory results Abnormal [facility] Valproate [Mass/Vol] 47 ug/mL Low [facility] Alcohol, Medicalon 0 Ethanol [Mass/Vol] mg/dL <10.00 mg/dL [facility] Comment on above: Alcohol cutoff: <10. 00 mg/dL = None Detected Interpretation and review of laboratory results Normal [facility] Ammoniaon 02-23-2019 Ammonia (P) [Mass/Vol] 43 ug/dL [facility] Interpretation and review of laboratory results Normal [facility] BMPon 02-23-2019 Anion gap [Moles/Vol] 10 mmol/L 10 - 20 mmol/L [facility] Calcium [Mass/Vol] 8.3 mg/dL Low 8.4 - 10. 2 mg/dL [facility] Chloride [Moles/Vol] 108 mmol/L 98 - 108 mmol/L [facility] Creatinine [Mass/Vol] 1.20 mg/dL 0.5 - 1.3 mg/dL [facility] GFR/1.73 sq M predicted among non-blacks MDRD (S/P/Bld) [Vol rate/Area] The eGFR should be used for monitoring renal function only and not for medication dosing. [facility] GFR/1.73 sq M.predicted CKD-EPI (S/P/Bld) [Vol rate/Area] 83 >=60 mL/min/1.73 m2 [facility] Glucose [Mass/Vol] 104 mg/dL High 65 - 99 mg/dL [facility] HCO3 [Moles/Vol] 30 mmol/L 21 - 32 mmol/L [facility] Potassium [Moles/Vol] 4.8 mmol/L 3.5 - 5.1 mmol/L [facility] Sodium [Moles/Vol] 143 mmol/L 135 - 145 mmol/L [facility] Urea nitrogen [Mass/Vol] 15 mg/dL 8 - 25 mg/dL [facility] Urea nitrogen/Creatinine [Mass ratio] 12.5 mg/mg [facility] CBC WITH AUTO DIFFERENTIALon 02-23-2019 Basophils (Bld) [#/Vol] 0.03 10*3/uL [facility] Basophils/100 WBC (Bld) 0.3 % [facility] Eosinophils (Bld) [#/Vol] 0.04 10*3/uL [facility] Eosinophils/100 WBC (Bld) 0.4 % [facility] Erythrocyte distribution width (RBC) [Entitic vol] 14.4 % 11.6 - 14.8 % [facility] Hematocrit (Bld) [Volume fraction] 35.1 % Low 41 - 53 % [facility] Hemoglobin (Bld) [Mass/Vol] 10.9 g/dL Low 13.5 - 17.5 g/dL [facility] Immature granulocytes (Bld) [#/Vol] 0.02 10*3/uL [facility] Immature granulocytes/100 WBC (Bld) 0.20 % [facility] Comment on above: The IG parameter is the percentage of metamyelocytes, myelocytes, and promyelocytes. Interpretation and review of laboratory results Abnormal [facility] Lymphocytes (Bld) [#/Vol] 1.22 10*3/uL [facility] Lymphocytes/100 WBC (Bld) 11.1 % [facility] MCH (RBC) [Entitic mass] 32.3 pg 26 - 34 pg [facility] MCHC (RBC) [Mass/Vol] 31.1 g/dL 31 - 37 g/dL [facility] MCV (RBC) [Entitic vol] 104.2 fL High 80 - 100 fL [facility] Monocytes (Bld) [#/Vol] 0.89 10*3/uL [facility] Monocytes/100 WBC (Bld) 8.1 % [facility] Neutrophils (Bld) [#/Vol] 8.75 10*3/uL High [facility] Neutrophils/100 WBC (Bld) 79.9 % [facility] Platelet mean volume (Bld) [Entitic vol] 9.0 fL 9 - 15.5 fL [facility] Platelets (Bld) [#/Vol] 241 10*3/uL [facility] RBC (Bld) [#/Vol] 3.37 10*6/uL Low [facility] WBC (Bld) [#/Vol] 10.95 10*3/uL [facility] CT HEAD OR BRAIN WITHOUT CON [...] cells are clear. No acute osseous abnormality. [facility] Interface, Rad In Sariah Speechq - [...] medication. Correlate clinically. GJT/lab Workstation ID: [id number] [facility] 1. No acute intracranial abnormality identified. 2. Mild cerebral and cerebellar atrophy greater than typically seen for patient's age. This may be on the basis of chronic use of antiseizure medication. Correlate clinically. GJT/lab Workstation ID: [id number] [facility] DRUGS OF ABUSE SCREEN, URINE on 02-23-2019 Amphetamines Ql (U) None Detected None Detected [facility] Comment on above: Urine Amphetamine Cu toff: < 1000 ng/mL = None Detected Barbiturates Screen Ql (U) None Detected None Detected [facility] Comment on above: Urine Barbiturates C utoff: < 200 ng/mL = None Detected Benzodiazepines Ql (U) None Detected None Detected [facility] Comment on above: Urine Benzodiazepine Cutoff: < 200 ng/mL = None Detected Cannabinoids Screen Ql (U) None Detected None Detected [facility] Comment on above: Urine Cannabinoids C utoff: < 50 ng/mL = None Detected Cocaine Ql (U) None Detected None Detected [facility] Comment on above: Urine Cocaine Cutoff : < 300 ng/mL = None Detected Interpretation and review of laboratory results Normal [facility] Methadone Screen Ql (U) None Detected None Detected [facility] Comment on above: Urine Methadone Cuto ff: < 300 ng/mL = None Detected Opiates Screen Ql (U) None Detected None Detected [facility] Comment on above: Urine Opiates Cutoff : < 300 ng/mL = None Detected Oxycodone Ql (U) None Detected None Detected [facility] Comment on above: Urine Oxycodone Cuto ff: < 100 ng/mL = None Detected Screen results should be used for treatment purposes only. [facility] ECG 12-LEADon 02-23-2019 Atrial Rate 80 BPM [facility] P Winder 34 degrees [facility] P-R Interval 194 ms [facility] Q-T Interval 400 ms [facility] QRS Duration 122 ms [facility] QTC Calculation (Bezet) 461 ms [facility] R Winder 43 degrees [facility] T Winder 62 degrees [facility] Ventricular Rate 80 BPM [facility] ECG Cart Interpretation see physician note for interpretation. Normal sinus rhythm Right bundle branch block Cannot rule out Inferior infarct , age undetermined Abnormal ECG Confirmed by Agata Johnston ([id number]) on 02/23/2019 3:42:27 PM [facility] Hepatic Function Panel (LFT) on 02-23-2019 Albumin [Mass/Vol] 2.6 g/dL Low 3.2 - 5.2 g/dL [facility] ALP [Catalytic activity/Vol] 73 U/L 40 - 140 U/L [facility] ALT [Catalytic activity/Vol] 21 U/L 14 - 65 U/L [facility] AST [Catalytic activity/Vol] 18 U/L 0 - 45 U/L [facility] Bilirubin [Mass/Vol] 0.1 mg/dL 0 - 1.3 mg/dL [facility] Bilirubin.conjugate d [Mass/Vol] mg/dL 0 - 0.4 mg/dL [facility] Protein [Mass/Vol] 7.4 g/dL 6 - 8 g/dL [facility] Lactic Acid, Plasmaon 2019 Interpretation and review of laboratory results Normal [facility] Lactate [Moles/Vol] 0.7 mmol/L 0.6 - 2 mmol/L [facility] Lipaseon 02-23-2019 Lipase [Catalytic activity/Vol] 129 U/L 73 - 393 U/L [facility] NT Pro BNPon 02-23-2019 Interpretation and review of laboratory results Normal [facility] Natriuretic peptide.B prohormone N-Terminal [Mass/Vol] 252 pg/mL 0 - 300 pg/mL [facility] Pride Study Cut-offs Rule In: < /= 50 Years >450 pg/mL 51 Years - 75 Years >900 pg/mL 76 Years - 99 Years >1800 pg/mL Rule Out: All patients <300 pg/mL [facility] Otheron 02-23-2019 Interpretation and review of laboratory results Abnormal [facility] Interpretation and review of laboratory results Normal [facility] POC ARTERIAL BLOOD GAS PANEL -[facility] 02-23-2019 Base excess Calc (Bld) [Moles/Vol] 5.8 mmol/L High [facility] Breath rate setting Ventilator synchronized intermittent mandatory 0 [facility] CO2 (Bld) [Partial pressure] 56.6 mm[Hg] High [facility] HCO3 (Bld) [Moles/Vol] 32.5 mmol/L High 22 - 26 mmol/L [facility] Hematocrit (BldA) [Volume fraction] 35.0 % Low 41 - 53 % [facility] Hemoglobin (Bld) [Mass/Vol] 11.4 g/dL Low 13.5 - 18 g/dL [facility] Inhaled oxygen concentration 0 % [facility] Interpretation and review of laboratory results Abnormal [facility] Oxygen (Bld) [Partial pressure] 82 mm[Hg] [facility] pH (Bld) 7.37 [pH] [facility] SaO2% (BldA) [Mass fraction] 96.7 % 92 - 99 % [facility] Tidal volume setting Ventilator 0 [facility] POC Arterial Blood Gaseson 0 02-23-2019 Base Excess, Arterial 5 High [facility] CO2 (Bld) [Partial pressure] 64.2 mm[Hg] High [facility] HCO3 (Bld) [Moles/Vol] 33.1 mmol/L High 22 - 26 mmol/L [facility] Hematocrit (Bld) [Volume fraction] 34 % Low 41 - 53 % [facility] Hemoglobin (Bld) [Mass/Vol] 11.6 g/dL Low 13.5 - 17.5 g/dL [facility] Interpretation and review of laboratory results Abnormal [facility] Oxygen (Bld) [Partial pressure] 76 mm[Hg] Low [facility] pH (Bld) 7.32 [pH] Low [facility] SaO2% (BldA) [Mass fraction] 93.0 % 92 - 99 % [facility] POC Glucoseon 02-23-2019 Glucose [Mass/Vol] 100 mg/dL Abnormal 65 - 99 mg/dL [facility] Interpretation and review of laboratory results Abnormal [facility] Glucose [Mass/Vol] 100 mg/dL High 65 - 99 mg/dL [facility] Interpretation and review of laboratory results Abnormal [facility] PT/INRon 02-23-2019 INR Coag (PPP) [Relative time] 1.1 {INR} [facility] Interpretation and review of laboratory results Normal [facility] PT Coag (PPP) [Time] 13.8 s [facility] During the induction phase of oral anticoagulation, the INR may not reflect the anticoagulation status of the patient. Therapeutic ranges for INR's are: Most clinical situations: INR 2.0-3.0 Mechanical Prosthetic Valve: INR 2.5-3.5 Critical: INR >5.0 [facility] TSH with Reflex Free T4on TSH Qn 1.01 m[IU]/L [facility] URINALYSISon 02-23-2019 Bacteria Auto Ql (U) Rare Abnormal None Seen /hpf [facility] Bilirubin Ql (U) Negative Negative [facility] Clarity Refractometry automated (U) Clear Clear [facility] Color (U) Yellow Colorless, Yellow [facility] Epithelial cells.squamous Auto (Urine sed) [#/Area] 1 [facility] Glucose Auto test strip (U) [Mass/Vol] Negative Negative mg/dL [facility] Hemoglobin Auto test strip Ql (U) Negative Negative [facility] Interpretation and review of laboratory results Abnormal [facility] Ketones (U) [Mass/Vol] Negative Negative mg/dL [facility] Leukocyte esterase Auto test strip Ql (U) Negative Negative [facility] Nitrite Auto test strip Ql (U) Negative Negative [facility] pH (U) 6.0 [pH] [facility] Protein (U) [Mass/Vol] Negative Negative mg/dL [facility] Specific gravity (U) [Rel density] 1.015 [facility] Urobilinogen (U) [Mass/Vol] <2.0 <2.0 mg/dL [facility] WBC Auto (Urine sed) [#/Area] 1 [facility] Microscopic examination is performed on all urinalysis samples and only positive findings are reported. The test for blood on the chemical analytic portion of urinalysis may also be positive due to hemoglobinuria and myoglobinuria and if red blood cells are present they are quantified by microscopic examination. [facility] Valproic Acid Levelon 2019 Interpretation and review of laboratory results Normal [facility] Valproate [Mass/Vol] 72 ug/mL [facility] XR Chest 1 Viewon 02-23-2019 EXAMINATION: 1 VIEW XR CHEST PA/AP, 02/23/2019 COMPARISON: Chest, 01/06/2018 HISTORY: Injury/Trauma or Illness?:Illness/Oth er How long have you had these symptoms (acute/chronic)?:Acu te Altered mental status [facility] 1. Mild diffuse interstitial edema and/or mild inflammatory infectious pneumonitis. Correlate clinically. 2. Mild prominent cardiac silhouette slightly accentuated due to patient rotation to the left. 3. No acute osseous abnormality. [employer] Workstation ID: [id number] [facility] Interface, Rad In Fuji Speechq - [...] the left. 3. No acute osseous abnormality. [employer] Workstation ID: [id number] [facility] CBCon 01-08-2018 ABSOLUTE BAS 0.0 X10 Normal [facility] Comment on above: Result Comment: Test ing performed at [place] [address] Performed By: #### A CBC, ITROT, BMPF ####[place] [address] ABSOLUTE EOS 0.00 X10 Normal [facility] Comment on above: Performed By: #### A CBC, ITROT, BMPF ####[place] [address] ABSOLUTE NEUTROPHIL COUNT 7.0 x10 Normal 1.0-7.0 [facility] Comment on above: Performed By: #### A CBC, ITROT, BMPF ####Testing performed at [address] [address] Basophils/100 WBC Auto (Bld) 0.1 % Normal 0.0-2.0 [facility] Comment on above: Performed By: #### A CBC, ITROT, BMPF ####Testing performed at [address] [address] DTYPE AUTO DIFF Normal [facility] Comment on above: Performed By: #### A CBC, ITROT, BMPF ####Testing performed at [address] [address] Eosinophils/100 WBC Auto (Bld) 0.0 % Normal 0.0-11.0 [facility] Comment on above: Performed By: #### A CBC, ITROT, BMPF ####Testing performed at [address] [address] Lymphocytes Auto #/vol (Bld) 1.50 X10 Normal [facility] Comment on above: Performed By: #### A CBC, ITROT, BMPF ####Testing performed at [address] [address] Lymphocytes/100 WBC Auto (Bld) 16.7 % Low 20.0-55.0 [facility] Comment on above: Performed By: #### A CBC, ITROT, BMPF ####Testing performed at [address] [address] Monocytes Auto #/vol (Bld) 0.5 X10 Normal [facility] Comment on above: Performed By: #### A CBC, ITROT, BMPF ####Testing performed at [address] [address] Monocytes/100 WBC Auto (Bld) 5.2 % Normal 0.0-10.0 [facility] Comment on above: Performed By: #### A CBC, ITROT, BMPF ####Testing performed at [address] [address] Neutrophils/100 WBC Auto (Bld) 78.0 % High 37.0-75.0 [facility] Comment on above: Performed By: #### A CBC ITROT, BMPF ####[place] [address] Erythrocyte distribution width Auto Ratio (RBC) 15.3 % High 11.5-14.5 [facility] Comment on above: Performed By: #### A CBCSUSUOT, BMPF ####[place] [address] Hematocrit Auto Volume Fraction (Bld) 35.6 % Low 42.0-52.0 [facility] Comment on above: Performed By: #### A CBC ITROT, BMPF ####[place] [address] Hemoglobin mass conc (Bld) 11.7 g/dL Low 14.0-18.0 [facility] Comment on above: Performed By: #### A CBC, ITROT, BMPF ####[place] [address] MCH Auto Entitic mass (RBC) 33.1 pg Normal 26.0-35.0 [facility] Comment on above: Performed By: #### A CBC ITROT, BMPF ####[place] [address] MCHC Auto mass conc (RBC) 32.8 g/dL Normal 27.0-37.0 [facility] Comment on above: Performed By: #### A CBC, ITROT, BMPF ####[place] [address] MCV Auto Entitic volume (RBC) 101.2 fL High 80.0-100.0 [facility] Comment on above: Performed By: #### A CBC, ITROT, BMPF ####[place] [address] Platelet mean volume Auto Entitic volume (Bld) 7.6 fL Normal 7.4-11.0 [facility] Comment on above: Performed By: #### A CBC, ITROT, BMPF ####Testing performed at [place] [id number] Platelets Auto #/vol (Bld) 213 /cmm Normal 130.0-400.0 [facility] Comment on above: Performed By: #### A CBC, ITROT, BMPF ####[place] [address] RBC Auto #/vol (Bld) 3.52 /cmm Low 4.0-6.1 [facility] Comment on above: Performed By: #### A CBC, ITROT, BMPF ####[place] [address] WBC Auto #/vol (Bld) 9.0 /cmm Normal 3.6-11.0 [facility] Comment on above: Performed By: #### A CBC, ITROT, BMPF ####[place] [address] CBC, EDIF, PLATELETon 2017 ABSOLUTE BASOPHIL COUNT 0.0 Invalid Interpretation Code X10 [address] Comment on above: Testing performed at [place] [address] Basophils/100 WBC Auto (Bld) 0.1 % Invalid Interpretation Code 0 - 2 % [address] Differential cell count method Nom (Bld) AUTO DIFF Invalid Interpretation Code % [address] Eosinophils Auto #/vol (Bld) 0.00 10*3/uL Invalid Interpretation Code X10 [address] Eosinophils/100 WBC Auto (Bld) 0.0 % Invalid Interpretation Code 0 - 11 % [address] Erythrocyte distribution width Ratio (RBC) 15.3 % High 11.5 - 14.5 % [address] Hematocrit Auto Volume Fraction (Bld) 35.6 % Low 42 - 52 % [address] Hemoglobin mass conc (Bld) 11.7 g/dL Low [address] Lymphocytes Manual cnt #/vol (Bld) 1.50 Invalid Interpretation Code X10 [address] Lymphocytes/100 WBC Auto (Bld) 16.7 % Low 20 - 55 % [address] MCH Auto Entitic mass (RBC) 33.1 pg Invalid Interpretation Code 26 - [address] MCHC Auto mass conc (RBC) 32.8 g/dL Invalid Interpretation Code [address] MCV Auto Entitic volume (RBC) 101.2 fL High [address] Monocytes Manual cnt #/vol (Bld) 0.5 Invalid Interpretation Code X10 [address] Monocytes/100 WBC Auto (Bld) 5.2 % Invalid Interpretation Code 0 - 10 % [address] Neutrophils Auto #/vol (Bld) 7.0 10*3/uL Invalid Interpretation Code [address] Neutrophils/100 WBC Auto (Bld) 78.0 % High 37 - 75 % [address] Platelet mean volume Auto Entitic volume (Bld) 7.6 fL Invalid Interpretation Code [address] Platelets Auto #/vol (Bld) 213 10*3/uL Invalid Interpretation Code [address] RBC Auto #/vol (Bld) 3.52 10*6/uL Low [address] WBC Auto #/vol (Bld) 9.0 10*3/uL Invalid Interpretation Code [address] CHEST WITHOUT CONTRASTon 01-08-2018 CT [...] in a patient of this age. Normal [facility] EXAM: CT CHEST WITHOUT CONTRAST CLINICAL STATEMENT: [...] Magnesium mass conc 2.4 mg/dL High 1.6-2.3 [facility] Comment on above: Result Comment: Test ing performed at [place] [address] Performed By: #### A CBC, ITROT, BMPF ####Testing performed at [place] [address] [place] [address] Magnesium mass conc 2.4 mg/dL High [address] Comment on above: Testing performed at [place] [address] Otheron 01-08-2018 Interpretation and review of laboratory results Abnormal Invalid Interpretation Code [address] RENAL FUNCTION PANELon 01-08 Albumin mass conc 3.5 G/dl Invalid Interpretation Code 3.5 - 5 G/dl [address] Calcium mass conc 8.8 mg/dL Invalid Interpretation Code [address] Chloride molar conc 113 mmol/L High [address] Comment on above: Please note: Triglyc eride levels of 600mg/dL or higher may positively bias chloride results by approximately 2.1 mmol CO2 molar conc 28 mmol/L Invalid Interpretation Code [address] Creatinine mass conc 1.0 mg/dL Invalid Interpretation Code [address] GFR/1.73 sq M predicted among blacks MDRD vol rate/area (S/P/Bld) mL/min/{1.73_m2} Invalid Interpretation Code ml/min/1.73sq.m [address] GFR/1.73 sq M predicted among non-blacks MDRD vol rate/area (S/P/Bld) Average GFR for 20-29 years old = 116. Invalid Interpretation Code [address] Comment on above: Chronic Kidney disea se, GFR = <60. Kidney failure, GFR = <15. The GFR estimate is not adjusted for extreme body surface area or acute process, nor has it been validated for women or ethnic groups other than and . Testing performed at [place], [place] [address] GFR/1.73 sq M predicted among non-blacks MDRD vol rate/area (S/P/Bld) mL/min/{1.73_m2} Invalid Interpretation Code ml/min/1.73sq.m [address] Glucose fasting mass conc 106 mg/dL High [address] Comment on above: NORMAL <100 mg/dL [place] EDIABETES 101-126 mg/dL DIABETES 126 mg/dL or higher Phosphate mass conc 3.0 mg/dL Invalid Interpretation Code [address] Potassium molar conc 4.4 mmol/L Invalid Interpretation Code [address] Sodium molar conc 145 mmol/L Invalid Interpretation Code [address] Urea nitrogen mass conc 11 mg/dL Invalid Interpretation Code [address] RENAL PANEL,FASTINGon 2017 Albumin mass conc 3.5 G/dl Normal 3.5-5.0 [facility] Comment on above: Performed By: #### A CBC, ITROT, BMPF ####Testing performed at [place] [id number] Calcium mass conc 8.8 mg/dL Normal 8.4-10.2 [facility] Comment on above: Performed By: #### A CBC, ITROT, BMPF ####Testing performed at [address] [address] Chloride molar conc 113 mmol/L High 98-107 [facility] Comment on above: Result Comment: Chayo garner note: Triglyceride levels of 600mg/dL or higher may positively bias chloride results by approximately 2.1 mmol Performed By: #### A CBC, ITROT, BMPF ####Testing performed at [place] [id number] CO2 molar conc 28 mmol/L Normal 22-30 [facility] Comment on above: Performed By: #### A CBC, ITROT, BMPF ####[place] [address] Creatinine mass conc 1.0 mg/dL Normal 0.7-1.2 [facility] Comment on above: Performed By: #### A CBC, ITROT, BMPF ####[place] [address] EST. GFR, >60 Normal [facility] Comment on above: Performed By: #### A CBC, ITROT, BMPF ####[place] [address] EST. GFR,Non >60 Normal [facility] Comment on above: Performed By: #### A CBC, ITROT, BMPF ####[place] [address] GFR/1.73 sq M predicted among non-blacks MDRD vol rate/area (S/P/Bld) Average GFR for 20-29 years old = 116. Normal [facility] Comment on above: Result Comment: [employer] may[employer] Kidney disease, GFR = <60.Kidney failure, GFR = <15.The GFR estimate is not adjusted for extreme body surface area or acute process, nor has it been validated for women or ethnic groups other than and .Testing performed at [place] [address] Performed By: #### A CBC, ITROT, BMPF ####[place] [address] Glucose mass conc 106 mg/dL High 70-100 [facility] Comment on above: Result Comment: NORM AL <100 mg/dLPREDIABETES 101-126 mg/dLDIABETES 126 mg/dL or higher Performed By: #### A CBC, ITROT, BMPF ####[place] [address] PHOSPHOROUS 3.0 MG/DL Normal 2.5-4.5 [facility] Comment on above: Performed By: #### A CBC, ITROT, BMPF ####[place] [address] Potassium molar conc 4.4 mmol/L Normal 3.5-5.1 [facility] Comment on above: Performed By: #### A CBC, ITROT, BMPF ####[place] [address] Sodium molar conc 145 mmol/L Normal 137-145 [facility] Comment on above: Performed By: #### A CBC, ITROT, BMPF ####[place] [address] Urea nitrogen mass conc (Bld) 11 mg/dL Normal 7-20 [facility] Comment on above: Performed By: #### A CBC, ITROT, BMPF ####[place] [address] CBCon 01-07-2018 ABSOLUTE BAS 0.0 X10 Normal [facility] Comment on above: Result Comment: Test ing performed at [place] [address] Performed By: #### A CBC, ITROT, BMPF ####[place] [address] ABSOLUTE EOS 0.00 X10 Normal [facility] Comment on above: Performed By: #### A CBC, ITROT, BMPF ####[place] [address] ABSOLUTE NEUTROPHIL COUNT 10.6 x10 High 1.0-7.0 [facility] Comment on above: Performed By: #### A CBC, ITROT, BMPF ####[place] [address] Basophils/100 WBC Auto (Bld) 0.1 % Normal 0.0-2.0 [facility] Comment on above: Performed By: #### A CBC, ITROT, BMPF ####[place] [address] DTYPE AUTO DIFF Normal [facility] Comment on above: Performed By: #### A CBC, ITROT, BMPF ####Testing performed at [address] [address] Eosinophils/100 WBC Auto (Bld) 0.0 % Normal 0.0-11.0 [facility] Comment on above: Performed By: #### A CBC, ITROT, BMPF ####Testing performed at [address] [address] Lymphocytes Auto #/vol (Bld) 1.20 X10 Normal [facility] Comment on above: Performed By: #### A CBC, ITROT, BMPF ####Testing performed at [address] [address] Lymphocytes/100 WBC Auto (Bld) 9.7 % Low 20.0-55.0 [facility] Comment on above: Performed By: #### A CBC, ITROT, BMPF ####Testing performed at [place] [id number] Monocytes Auto #/vol (Bld) 0.6 X10 Normal [facility] Comment on above: Performed By: #### A CBC, ITROT, BMPF ####Testing performed at [place] [id number] Monocytes/100 WBC Auto (Bld) 5.1 % Normal 0.0-10.0 [facility] Comment on above: Performed By: #### A CBC, ITROT, BMPF ####Testing performed at [address] [address] Neutrophils/100 WBC Auto (Bld) 85.1 % High 37.0-75.0 [facility] Comment on above: Performed By: #### A CBC, ITROT, BMPF ####Testing performed at [place] [id number] Erythrocyte distribution width Auto Ratio (RBC) 15.4 % High 11.5-14.5 [facility] Comment on above: Performed By: #### A CBC, ITROT, BMPF ####Testing performed at [place] [id number] Hematocrit Auto Volume Fraction (Bld) 35.0 % Low 42.0-52.0 [facility] Comment on above: Performed By: #### A CBCNIVIA, BMPF ####[place] [address] Hemoglobin mass conc (Bld) 11.4 g/dL Low 14.0-18.0 [facility] Comment on above: Performed By: #### A CBC, ITROT, BMPF ####[place] [address] MCH Auto Entitic mass (RBC) 32.9 pg Normal 26.0-35.0 [facility] Comment on above: Performed By: #### A CBC, ITROT, BMPF ####[place] [address] MCHC Auto mass conc (RBC) 32.5 g/dL Normal 27.0-37.0 [facility] Comment on above: Performed By: #### A CBC, ITROT, BMPF ####[place] [address] MCV Auto Entitic volume (RBC) 101.3 fL High 80.0-100.0 [facility] Comment on above: Performed By: #### A CBC, ITROT, BMPF ####[place] [address] Platelet mean volume Auto Entitic volume (Bld) 7.4 fL Normal 7.4-11.0 [facility] Comment on above: Performed By: #### A CBC, ITROT, BMPF ####[place] [address] Platelets Auto #/vol (Bld) 216 /cmm Normal 130.0-400.0 [facility] Comment on above: Performed By: #### A CBC, ITROT, BMPF ####[place] [address] RBC Auto #/vol (Bld) 3.45 /cmm Low 4.0-6.1 [facility] Comment on above: Performed By: #### A CBC, ITROT, BMPF ####[place] [address] WBC Auto #/vol (Bld) 12.5 /cmm High 3.6-11.0 [facility] Comment on above: Performed By: #### A CBC, ITROT, BMPF ####[place] [address] CBC, EDIF, PLATELETon 2017 ABSOLUTE BASOPHIL COUNT 0.0 Invalid Interpretation Code X10 [address] Comment on above: Testing performed at [place] [address] Basophils/100 WBC Auto (Bld) 0.1 % Invalid Interpretation Code 0 - 2 % [address] Differential cell count method Nom (Bld) AUTO DIFF Invalid Interpretation Code % [address] Eosinophils Auto #/vol (Bld) 0.00 10*3/uL Invalid Interpretation Code X10 [address] Eosinophils/100 WBC Auto (Bld) 0.0 % Invalid Interpretation Code 0 - 11 % [address] Erythrocyte distribution width Ratio (RBC) 15.4 % High 11.5 - 14.5 % [address] Hematocrit Auto Volume Fraction (Bld) 35.0 % Low 42 - 52 % [address] Hemoglobin mass conc (Bld) 11.4 g/dL Low [address] Lymphocytes Manual cnt #/vol (Bld) 1.20 Invalid Interpretation Code X10 [address] Lymphocytes/100 WBC Auto (Bld) 9.7 % Low 20 - 55 % [address] MCH Auto Entitic mass (RBC) 32.9 pg Invalid Interpretation Code 26 - [address] MCHC Auto mass conc (RBC) 32.5 g/dL Invalid Interpretation Code [address] MCV Auto Entitic volume (RBC) 101.3 fL High [address] Monocytes Manual cnt #/vol (Bld) 0.6 Invalid Interpretation Code X10 [address] Monocytes/100 WBC Auto (Bld) 5.1 % Invalid Interpretation Code 0 - 10 % [address] Neutrophils Auto #/vol (Bld) 10.6 10*3/uL High [address] Neutrophils/100 WBC Auto (Bld) 85.1 % High 37 - 75 % [address] Platelet mean volume Auto Entitic volume (Bld) 7.4 fL Invalid Interpretation Code [address] Platelets Auto #/vol (Bld) 216 10*3/uL Invalid Interpretation Code [address] RBC Auto #/vol (Bld) 3.45 10*6/uL Low [address] WBC Auto #/vol (Bld) 12.5 10*3/uL [address] L PNEUMOPHILIA AG URINEon L PNEUMOPHILIA AG URINE Negative Normal NEGATIVE [facility] Comment on above: Result Comment: Test ing performed at [place] [address] Performed By: #### A CBC, ITROT, BMPF ####[place] [address] [facility] AGon 12-15 L. pneumophila 1 Ag IA Ql (U) Negative Invalid Interpretation Code NEGATIVE [address] Comment on above: Testing performed at [place] [address] MAGNESIUMon 01-07-2018 Magnesium mass conc 2.2 mg/dL Normal 1.6-2.3 [facility] Comment on above: Result Comment: Test ing performed at [facility], [place], [place] [address] Performed By: #### A CBC, ITROT, BMPF ####Testing performed at [place] [address] [place] [address] Magnesium mass conc 2.2 mg/dL Invalid Interpretation Code [address] Comment on above: Testing performed at [place], [place] [address] Otheron 01-07-2018 Interpretation and review of laboratory results Abnormal Invalid Interpretation Code [address] RENAL FUNCTION PANELon 01-07 Albumin mass conc 3.3 G/dl Low 3.5 - 5 G/dl [address] Calcium mass conc 8.3 mg/dL Low [address] Chloride molar conc 111 mmol/L High [address] Comment on above: Please note: Triglyc eride levels of 600mg/dL or higher may positively bias chloride results by approximately 2.1 mmol CO2 molar conc 27 mmol/L Invalid Interpretation Code [address] Creatinine mass conc 1.2 mg/dL Invalid Interpretation Code [address] GFR/1.73 sq M predicted among blacks MDRD vol rate/area (S/P/Bld) mL/min/{1.73_m2} Invalid Interpretation Code ml/min/1.73sq.m [address] GFR/1.73 sq M predicted among non-blacks MDRD vol rate/area (S/P/Bld) mL/min/{1.73_m2} Invalid Interpretation Code ml/min/1.73sq.m [address] GFR/1.73 sq M predicted among non-blacks MDRD vol rate/area (S/P/Bld) Average GFR for 20-29 years old = 116. Invalid Interpretation Code [address] Comment on above: Chronic Kidney disea se, GFR = <60. Kidney failure, GFR = <15. The GFR estimate is not adjusted for extreme body surface area or acute process, nor has it been validated for women or ethnic groups other than and . Testing performed at [place] [address] Glucose fasting mass conc 109 mg/dL [address] Comment on above: NORMAL <100 mg/dL [place] EDIABETES 101-126 mg/dL DIABETES 126 mg/dL or higher Phosphate mass conc 2.9 mg/dL Invalid Interpretation Code [address] Potassium molar conc 4.2 mmol/L Invalid Interpretation Code [address] Sodium molar conc 146 mmol/L [address] Urea nitrogen mass conc 10 mg/dL Invalid Interpretation Code [address] RENAL PANEL,FASTINGon 2017 Albumin mass conc 3.3 G/dl Low 3.5-5.0 [facility] Comment on above: Performed By: #### A CBC, ITROT, BMPF ####[place] [address] Calcium mass conc 8.3 mg/dL Low 8.4-10.2 [facility] Comment on above: Performed By: #### A CBC, ITROT, BMPF ####[place] [address] Chloride molar conc 111 mmol/L High 98-107 [facility] Comment on above: Result Comment: Chayo garner note: Triglyceride levels of 600mg/dL or higher may positively bias chloride results by approximately 2.1 mmol Performed By: #### A CBC, ITROT, BMPF ####[place] [address] CO2 molar conc 27 mmol/L Normal 22-30 [facility] Comment on above: Performed By: #### A CBC, ITROT, BMPF ####[place] [address] Creatinine mass conc 1.2 mg/dL Normal 0.7-1.2 [facility] Comment on above: Performed By: #### A CBC, ITROT, BMPF ####[place] [address] EST. GFR, >60 Normal [facility] Comment on above: Performed By: #### A CBC, ITROT, BMPF ####[place] [address] EST. GFR,Non >60 Normal [facility] Comment on above: Performed By: #### A CBC, ITROT, BMPF ####[place] [address] GFR/1.73 sq M predicted among non-blacks MDRD vol rate/area (S/P/Bld) Average GFR for 20-29 years old = 116. Normal [facility] Comment on above: Result Comment: [employer] maye Kidney disease, GFR = <60.Kidney failure, GFR = <15.The GFR estimate is not adjusted for extreme body surface area or acute process, nor has it been validated for women or ethnic groups other than and .Testing performed at [place] [address] Performed By: #### A CBC, ITROT, BMPF ####[place] [address] Glucose mass conc 109 mg/dL High 70-100 [facility] Comment on above: Result Comment: NORM AL <100 mg/dLPREDIABETES 101-126 mg/dLDIABETES 126 mg/dL or higher Performed By: #### A CBC, ITROT, BMPF ####Testing [place] [address] PHOSPHOROUS 2.9 MG/DL Normal 2.5-4.5 [facility] Comment on above: Performed By: #### A CBC, ITROT, BMPF ####[place] [address] Potassium molar conc 4.2 mmol/L Normal 3.5-5.1 [facility] [place] Comment on above: Performed By: #### A CBC, ITROT, BMPF ####[place] [address] Sodium molar conc 146 mmol/L High 137-145 [facility] Comment on above: Performed By: #### A CBC, ITROT, BMPF ####[place] [address] Urea nitrogen mass conc (Bld) 10 mg/dL Normal 7-20 [facility] [place] Comment on above: Performed By: #### A CBC, ITROT, BMPF ####[place] [address] RESPIRATORY CULTUREon 2017 RESPIRATORY CULTURE SPECIMEN DESCRIPTION [...] * * Result Note: Testing performed at [place] [address] *REPORT STATUS 01/08/2018 * Result Note: FINAL * Normal [facility] [place] Comment on above: Performed By: #### A CBC, ITROT, BMPF ####[place] [address] S PNEUMONIAE AG URINEon 12-15 S PNEUMONIAE AG URINE Negative Normal NEGATIVE [facility] Comment on above: Result Comment: Test ing performed at [place] [address] Performed By: #### A CBC, ITROT, BMPF ####[place] [address] STREP PNEUMONIAE ANTIGEN, UR INEon 01-07-2018 S. pneumoniae Ag Ql (U) Negative Invalid Interpretation Code NEGATIVE [facility] [address] [facility] Comment on above: Testing performed at [place] [address] B TYPE NATRIURETIC PEPTIDEon 01-06-2018 Natriuretic peptide B mass conc (Bld) 61 pg/mL Normal 0-100 [facility] Comment on above: Result Comment: Test ing performed at [place] [address] Performed By: #### B REVENUE CYCLE ANALYST ####Testing performed at [place] [address] [place] [address] B-TYPE NATRIURETIC PEPTIDE ( BRAIN)on 01-06-2018 Natriuretic peptide B mass conc (Bld) 61 pg/mL Invalid Interpretation Code 0 - 100 pg/mL [address] Comment on above: Testing performed at [place] [id number] BASIC METABOLIC PANELon 12-15 Anion gap 3 molar conc 6 mmol/L Low [address] Calcium mass conc 8.8 mg/dL Invalid Interpretation Code [address] Chloride molar conc 107 mmol/L Invalid Interpretation Code [address] Comment on above: Please note: Triglyc eride levels of 600mg/dL or higher may positively bias chloride results by approximately 2.1 mmol CO2 molar conc 30 mmol/L Invalid Interpretation Code [address] Creatinine mass conc 1.3 mg/dL High [address] GFR/1.73 sq M predicted among blacks MDRD vol rate/area (S/P/Bld) mL/min/{1.73_m2} Invalid Interpretation Code ml/min/1.73sq.m [address] GFR/1.73 sq M predicted among non-blacks MDRD vol rate/area (S/P/Bld) Average GFR for 20-29 years old = 116. Invalid Interpretation Code [address] Comment on above: Chronic Kidney disea se, GFR = <60. Kidney failure, GFR = <15. The GFR estimate is not adjusted for extreme body surface area or acute process, nor has it been validated for women or ethnic groups other than and . Testing performed at [place] [id number] GFR/1.73 sq M predicted among non-blacks MDRD vol rate/area (S/P/Bld) mL/min/{1.73_m2} Invalid Interpretation Code ml/min/1.73sq.m [address] Glucose fasting mass conc 121 mg/dL High [facility] - [address] [place] [address] Comment on above: NORMAL <100 mg/dL [place] EDIABETES 101-126 mg/dL DIABETES 126 mg/dL or higher Potassium molar conc 4.3 mmol/L Invalid Interpretation Code [facility] - [address] [place] [address] Sodium molar conc 143 mmol/L Invalid Interpretation Code [address] Urea nitrogen mass conc 13 mg/dL Invalid Interpretation Code [address] BLOOD CULTUREon 01-06-2018 Bacteria identified Cx Nom (Bld) SPECIMEN DESCRIPTION PERIPHERAL BLOOD DRAW CULTURE NO GROWTH 5 DAYS * Result Note: Testing performed at [place] [address] * REPORT STATUS 01/11/2018 * Result Note: FINAL * Normal [facility] Comment on above: Performed By: #### A CBC, ITROT, BMPF ####[place] [address] Bacteria identified Cx Nom (Bld) SPECIMEN DESCRIPTION PERIPHERAL BLOOD DRAW CULTURE NO GROWTH 5 DAYS * Result Note: Testing performed at [place] [address] * REPORT STATUS 01/11/2018 * Result Note: FINAL * Normal [facility] Comment on above: Performed By: #### A CBC, ITROT, BMPF ####[place] [address] BMP FASTINGon 01-06-2018 Anion gap 3 molar conc 6 mmol/L Low 8-16 [facility] Comment on above: Performed By: #### A CBC, ITROT, BMPF ####[place] [address] Calcium mass conc 8.8 mg/dL Normal 8.4-10.2 [facility] Comment on above: Performed By: #### A CBC, ITROT, BMPF ####[place] [address] Chloride molar conc 107 mmol/L Normal 98-107 [facility] Comment on above: Result Comment: Chayo garner note: Triglyceride levels of 600mg/dL or higher may positively bias chloride results by approximately 2.1 mmol Performed By: #### A CBC, ITROT, BMPF ####[place] [address] CO2 molar conc 30 mmol/L Normal 22-30 [facility] Comment on above: Performed By: #### A CBC, ITROT, BMPF ####[place] [address] Creatinine mass conc 1.3 mg/dL High 0.7-1.2 [facility] Comment on above: Performed By: #### A CBC, ITROT, BMPF ####[place] [address] EST. GFR, >60 Normal [facility] Comment on above: Performed By: #### A CBC, ITROT, BMPF ####[place] [address] EST. GFR,Non >60 Normal [facility] Comment on above: Performed By: #### A CBC, ITROT, BMPF ####[place] [address] GFR/1.73 sq M predicted among non-blacks MDRD vol rate/area (S/P/Bld) Average GFR for 20-29 years old = 116. Normal [facility] Comment on above: Result Comment: [employer] Tender maye Kidney disease, GFR = <60.Kidney failure, GFR = <15.The GFR estimate is not adjusted for extreme body surface area or acute process, nor has it been validated for women or ethnic groups other than and .Testing performed at [place] [address] Performed By: #### A CBC, ITROT, BMPF ####[place] [address] Glucose mass conc 121 mg/dL High 70-100 [facility] Comment on above: Result Comment: NORM AL <100 mg/dLPREDIABETES 101-126 mg/dLDIABETES 126 mg/dL or higher Performed By: #### A CBC, ITROT, BMPF ####[place] [address] Potassium molar conc 4.3 mmol/L Normal 3.5-5.1 [facility] Comment on above: Performed By: #### A CBC, ITROT, BMPF ####[place] [address] Sodium molar conc 143 mmol/L Normal 137-145 [facility] Comment on above: Performed By: #### A CBC, ITROT, BMPF ####[place] [address] Urea nitrogen mass conc (Bld) 13 mg/dL Normal 7-20 [facility] Comment on above: Performed By: #### A CBC, ITROT, BMPF ####[place] [address] C REACTIVE PROTEINon 018 CRP mass conc 200.1 mg/L High 0-10 [facility] Comment on above: Result Comment: Test ing performed at [place] [address] Performed By: #### A CBC, ITROT, BMPF ####[place] [address] CRP mass conc 200.1 mg/L High 0 - 10 MG/L [facility] [address] [place] [address] Comment on above: Testing performed at [place] [address] CBCon 01-06-2018 ABSOLUTE BAS 0.0 X10 Normal [facility] Comment on above: Result Comment: Test ing performed at [place] [address] Performed By: #### A CBC, ITROT, BMPF ####[place] [address] ABSOLUTE EOS 0.00 X10 Normal [facility] Comment on above: Performed By: #### A CBC, ITROT, BMPF ####[place] [address] ABSOLUTE NEUTROPHIL COUNT 11.5 x10 High 1.0-7.0 [facility] Comment on above: Performed By: #### A CBC, ITROT, BMPF ####Testing performed at [place] [id number] Basophils/100 WBC Auto (Bld) 0.3 % Normal 0.0-2.0 [facility] Comment on above: Performed By: #### A CBC, ITROT, BMPF ####Testing performed at [place] [id number] DTYPE AUTO DIFF Normal [facility] Comment on above: Performed By: #### A CBC, ITROT, BMPF ####Testing performed at [place] [id number] Eosinophils/100 WBC Auto (Bld) 0.0 % Normal 0.0-11.0 [facility] Comment on above: Performed By: #### A CBC, ITROT, BMPF ####Testing performed at [place] [id number] Lymphocytes Auto #/vol (Bld) 1.00 X10 Normal [facility] Comment on above: Performed By: #### A CBC, ITROT, BMPF ####Testing performed at [address] [address] Lymphocytes/100 WBC Auto (Bld) 7.1 % Low 20.0-55.0 [facility] Comment on above: Performed By: #### A CBC, ITROT, BMPF ####Testing performed at [address] [address] Monocytes Auto #/vol (Bld) 1.2 X10 Normal [facility] Comment on above: Performed By: #### A CBC, ITROT, BMPF ####Testing performed at [address] [address] Monocytes/100 WBC Auto (Bld) 8.5 % Normal 0.0-10.0 [facility] Comment on above: Performed By: #### A CBC, ITROT, BMPF ####[place] [address] Neutrophils/100 WBC Auto (Bld) 84.1 % High 37.0-75.0 [facility] Comment on above: Performed By: #### A CBC, ITROT, BMPF ####[place] [address] Erythrocyte distribution width Auto Ratio (RBC) 15.3 % High 11.5-14.5 [facility] Comment on above: Performed By: #### A CBC, ITROT, BMPF ####[place] [address] Hematocrit Auto Volume Fraction (Bld) 41.2 % Low 42.0-52.0 [facility] Comment on above: Performed By: #### A CBC, ITROT, BMPF ####[place] [address] Hemoglobin mass conc (Bld) 13.5 g/dL Low 14.0-18.0 [facility] Comment on above: Performed By: #### A CBC, ITROT, BMPF ####[place] [address] MCH Auto Entitic mass (RBC) 32.6 pg Normal 26.0-35.0 [facility] Comment on above: Performed By: #### A CBC, ITROT, BMPF ####[place] [address] MCHC Auto mass conc (RBC) 32.7 g/dL Normal 27.0-37.0 [facility] Comment on above: Performed By: #### A CBC, ITROT, BMPF ####[place] [address] MCV Auto Entitic volume (RBC) 99.7 fL Normal 80.0-100.0 [facility] Comment on above: Performed By: #### A CBC, ITROT, BMPF ####[place] [address] Platelet mean volume Auto Entitic volume (Bld) 7.2 fL Low 7.4-11.0 [facility] Comment on above: Performed By: #### A CBC, ITROT, BMPF ####Testing performed at [place] [id number] Platelets Auto #/vol (Bld) 241 /cmm Normal 130.0-400.0 [facility] Comment on above: Performed By: #### A CBC, ITROT, BMPF ####[place] [address] RBC Auto #/vol (Bld) 4.13 /cmm Normal 4.0-6.1 [facility] Comment on above: Performed By: #### A CBC, ITROT, BMPF ####[place] [address] WBC Auto #/vol (Bld) 13.7 /cmm High 3.6-11.0 [facility] Comment on above: Performed By: #### A CBC, ITROT, BMPF ####Testing performed at [place] [id number] CBC, EDIF, PLATELETon 2017 ABSOLUTE BASOPHIL COUNT 0.0 Invalid Interpretation Code X10 [address] Comment on above: Testing performed at [place] [address] Basophils/100 WBC Auto (Bld) 0.3 % Invalid Interpretation Code 0 - 2 % [address] Differential cell count method Nom (Bld) AUTO DIFF Invalid Interpretation Code % [address] Eosinophils Auto #/vol (Bld) 0.00 10*3/uL Invalid Interpretation Code X10 [address] Eosinophils/100 WBC Auto (Bld) 0.0 % Invalid Interpretation Code 0 - 11 % [address] Erythrocyte distribution width Ratio (RBC) 15.3 % High 11.5 - 14.5 % [address] Hematocrit Auto Volume Fraction (Bld) 41.2 % Low 42 - 52 % [address] Hemoglobin mass conc (Bld) 13.5 g/dL Low [address] Lymphocytes Manual cnt #/vol (Bld) 1.00 Invalid Interpretation Code X10 [address] Lymphocytes/100 WBC Auto (Bld) 7.1 % Low 20 - 55 % [address] MCH Auto Entitic mass (RBC) 32.6 pg Invalid Interpretation Code 26 - [address] MCHC Auto mass conc (RBC) 32.7 g/dL Invalid Interpretation Code [address] MCV Auto Entitic volume (RBC) 99.7 fL Invalid Interpretation Code [address] Monocytes Manual cnt #/vol (Bld) 1.2 Invalid Interpretation Code X10 [address] Monocytes/100 WBC Auto (Bld) 8.5 % Invalid Interpretation Code 0 - 10 % [address] Neutrophils Auto #/vol (Bld) 11.5 10*3/uL High [address] Neutrophils/100 WBC Auto (Bld) 84.1 % High 37 - 75 % [address] Platelet mean volume Auto Entitic volume (Bld) 7.2 fL Low [address] Platelets Auto #/vol (Bld) 241 10*3/uL Invalid Interpretation Code [address] RBC Auto #/vol (Bld) 4.13 10*6/uL Invalid Interpretation Code [address] WBC Auto #/vol (Bld) 13.7 10*3/uL [address] ESRon 01-06-2018 ESR Velocity (Bld) 31 mm/h High 0-15 [facility] Comment on above: Result Comment: Test ing performed at [place] [address] Performed By: #### A CBC, ITROT, BMPF ####[place] [address] INFLUENZA A AND B, PCRon FLUBV Ag IA Ql (Unsp spec) Negative Invalid Interpretation Code NEGATIVE [address] Comment on above: TESTING PERFORMED BY EDER Testing performed at [place] [address] INFLUENZA A Negative Invalid Interpretation Code NEGATIVE [address] ISTAT TROPONIN Ion 8 Troponin I.cardiac mass conc ng/mL Normal 0-0.08 [facility] Comment on above: Result Comment: Test ing performed at [place] [address] Performed By: #### A CBC, ITROT, BMPF ####[place] [address] LACTATE, BLOODon 01-06-2018 Lactate molar conc 1.2 mmol/L Invalid Interpretation Code [address] Comment on above: Testing performed at [place] [address] LACTIC ACIDon 01-06-2018 Lactate molar conc 1.2 mmol/L Normal 0.7-2.0 [facility] Comment on above: Result Comment: Test ing performed at [place] [address] Performed By: #### L ACT ####[place] [address] LITHIUMon 01-06-2018 [place] molar conc 0.40 mmol/L Low 0.6-1.2 [facility] Comment on above: Result Comment: Test ing performed at [place] [address] Performed By: #### L I2 ####[place] [address] LITHIUM LEVELon 01-06-2018 Interpretation and review of laboratory results Abnormal Invalid Interpretation Code [address] [place] molar conc 0.40 mmol/L Low [address] Comment on above: Testing performed at [place] [address] MRSA SCREENon 01-06-2018 Methicillin resistant Staphylococcus aureus (MRSA) DNA [Presence] in Unspecified specimen by EDER with probe detection Negative Normal [facility] Comment on above: Performed By: #### A CBC, ITROT, BMPF ####[place] [address] STAPH AUREUS SCREEN Negative Normal [facility] Comment on above: Result Comment: TEST ING PERFORMED BY PCRTesting performed at [place] [address] Performed By: #### A CBC, ITROT, BMPF ####[place] [address] Otheron 01-06-2018 Interpretation and review of laboratory results Abnormal Invalid Interpretation Code [address] Interpretation and review of laboratory results Abnormal Invalid Interpretation Code [address] RAPID FLU Aon 01-06-2018 INFLUENZA A Negative Normal NEGATIVE [facility] Comment on above: Performed By: #### R FLUAB ####[place] [address] INFLUENZA B Negative Normal NEGATIVE [facility] Comment on above: Result Comment: TEST ING PERFORMED BY NAATesting performed at [place] [address] Performed By: #### R FLUAB ####[place] [address] RESPIRATORY CULTUREon 2017 Bacteria identified Cx Nom (Unsp spec) USUAL OROPHARYNGEAL MARICRUZ Invalid Interpretation Code [address] Comment on above: MODERATE GROWTH Test ing performed at [place] [address] Microscopic observation Gram stain Nom (Unsp spec) MODERATE Invalid Interpretation Code [address] Comment on above: WBC'S SEEN FEW SQUAM OUS EPITHELIAL CELLS MODERATE MIXED GRAM POSITIVE MARICRUZ NONE APPEAR PREDOMINANT SPECIMEN IS OF LEAST ACCEPTABLE QUALITY REPORT STATUS 01/08/2018 Invalid Interpretation Code [address] Comment on above: FINAL SPECIMEN DESCRIPTION SPUTUM Invalid Interpretation Code [address] SCREEN: MRSA ONLY, NARES (IS OLATION SCREEN)on 01-06-2018 MRSA isol Org specific cx Ql (Nose) Negative Invalid Interpretation Code [facility] - [address] [place] [address] STAPHYOCOCCUS AUREUS BY PCR Negative Invalid Interpretation Code [address] Comment on above: TESTING PERFORMED BY PCR Testing performed at [place] [address] SEDIMENTATION RATE, AUTOMATE Don 01-06-2018 ESR Velocity (Bld) 31 mm/h High [address] Comment on above: Testing performed at [place] [address] TROPONINon 01-06-2018 Troponin I.cardiac mass conc ng/mL Invalid Interpretation Code 0 - 0.08 ng/mL [address] Comment on above: Testing performed at [place] [address] TSHon 01-06-2018 Thyrotropin Qn 0.994 uIU/ML Normal 0.46-4.68 [facility] Comment on above: Result Comment: Test ing performed at [place] [address] Performed By: #### T SH2 ####[place] [address] Thyrotropin Qn 0.994 m[IU]/L Invalid Interpretation Code [address] Comment on above: Testing performed at [place] [address] XR CHEST AP PORTABLEon 01-06 XR CHEST [...] eft-sided pneumonia with suspected parapneumonic effusion. Normal [facility] EXAM: XR CHEST AP PORTABLE REASON FOR [...] or early pulmonary edema. Please correlate clinically. [facility] TWO-VIEW CHEST COMPARISON: Portable chest from [...] Body height 157.48 cm Martha Richmond Other [employer] Other 11-03-2022 10:00-0400 Body mass index (BMI) [Ratio] 29.08 kg/m2 Martha Richmond Other [employer] Other 11-03-2022 10:00-0400 Body weight 72.12 kg Martha Richmond Other [employer] Other 12-02-2021 12:30-0400 Body height 157.48 cm Thiago Chandler Other [employer] Other 12-02-2021 12:30-0400 Body mass index (BMI) [Ratio] 29.08 kg/m2 Thiago Chandler Other [employer] Other 12-02-2021 12:30-0400 Body temperature 97.1 [degF] Thiago Chandler Other [employer] Other 12-02-2021 12:30-0400 Body weight 72.12 kg Thiago Chandler Other [employer] Other 10-20-2022 12:30-0400 Diastolic blood pressure 78 mm[Hg] Thiago Chandler Other [employer] Other 12-02-2021 12:30-0400 SaO2% (BldA) [Mass fraction] 100 % Thiago Chandler Other [employer] Other 12-02-2021 12:30-0400 Systolic blood pressure 114 mm[Hg] Thiago Chandler Other [employer] Other 11-04-2021 11:00-0400 Body height 157.48 cm Martha Yi Other [employer] Other 11-04-2021 11:00-0400 Body mass index (BMI) [Ratio] 29.28 kg/m2 Martha Yi Other [employer] Other 11-04-2021 11:00-0400 Body weight 72.62 kg Martha Yi Other [employer] Other 08-05-2021 14:00-0400 Body height 144.78 cm Thiago Chandler Other [employer] Other 08-05-2021 14:00-0400 Body mass index (BMI) [Ratio] 32.46 kg/m2 Thiago Chandler Other [employer] Other 08-05-2021 14:00-0400 Body temperature 97 [degF] Thiago Chandler Other [employer] Other 08-05-2021 14:00-0400 Body weight 68.04 kg Thiago Chandler Other [employer] Other 08-05-2021 14:00-0400 Diastolic blood pressure 73 mm[Hg] Thiago Chandler Other [employer] Other 08-05-2021 14:00-0400 SaO2% (BldA) [Mass fraction] 97 % Thiago Chandler Other [employer] Other 08-05-2021 14:00-0400 Systolic blood pressure 110 mm[Hg] Thiago Chandler Other [employer] Other 05-27-2021 09:30-0400 Body height 152.4 cm Franck Carballo MD Work Phone: [facility] 05-27-2021 09:30-0400 Body mass index (BMI) [Ratio] 30.47 kg/m2 Franck Carballo MD Work Phone: [facility] 05-27-2021 09:30-0400 Body weight 70.76 kg Franck Carballo MD Work Phone: [facility] 05-27-2021 09:30-0400 Diastolic blood pressure 69 mm[Hg] Franck Carballo MD Work Phone: [facility] 05-27-2021 09:30-0400 Heart rate 97 /min Franck Carballo MD Work Phone: [facility] 05-27-2021 09:30-0400 SaO2% (BldA) [Mass fraction] 91 % Franck Carballo MD Work Phone: [facility] 05-27-2021 09:30-0400 Systolic blood pressure 105 mm[Hg] Franck Carballo MD Work Phone: [facility] 03-01-2019 08:00-0500 Respiratory Rate 16 /min Generic [facility] 03-01-2019 07:23-0500 BP Diastolic 69 mm[Hg] Generic [facility] 03-01-2019 07:23-0500 BP Systolic 100 mm[Hg] Generic [facility] 03-01-2019 07:23-0500 Pulse (Heart Rate) 91 /min Generic [facility] 03-01-2019 07:23-0500 Pulse Oximetry 100 % [facility] 03-01-2019 06:00-0500 BMI (Body Mass Index) 44.56 kg/m2 [facility] 03-01-2019 06:00-0500 Body weight 93.4 kg [facility] Comment on above: standing weight 03-01-2019 04:01-0500 Body Temperature 98.8 [degF] [facility] 02-25-2019 14:40-0500 Respiratory rate 17 /min [facility] 02-25-2019 10:56-0500 Respiratory rate 0 /min [facility] 02-23-2019 21:56-0500 Respiratory rate 0 /min [facility] 02-23-2019 18:33-0500 BP Diastolic 78 mm[Hg] [facility] 02-23-2019 18:33-0500 BP Systolic 139 mm[Hg] [facility] 02-23-2019 18:33-0500 Pulse (Heart Rate) 78 /min [facility] 02-23-2019 18:33-0500 Pulse Oximetry 99 % [facility] 02-23-2019 18:33-0500 Respiratory Rate 16 /min [facility] 02-23-2019 13:38-0500 BMI (Body Mass Index) 43.28 kg/m2 [facility] 02-23-2019 13:38-0500 Body Temperature 97.39 [degF] [facility] 02-23-2019 13:38-0500 Body weight 90.72 kg [facility] 02-23-2019 13:38-0500 Height 144.8 cm [facility] 01-08-2018 11:54-0500 Body Temperature 98.01 [degF] [facility] Work Phone: 01-08-2018 11:54-0500 BP Diastolic 48 mm[Hg] [facility] Work Phone: 01-08-2018 11:54-0500 BP Systolic 115 mm[Hg] Joa[facility] Work Phone: 01-08-2018 11:54-0500 Pulse (Heart Rate) 75 /min Joa[facility] Work Phone: 01-08-2018 11:54-0500 Pulse Oximetry 97 % [facility] Work Phone: 01-08-2018 11:54-0500 Respiratory Rate 18 /min [facility] Work Phone: 01-08-2018 03:51-0500 BMI (Body Mass Index) 45.89 kg/m2 [facility] Work Phone: 01-08-2018 03:51-[address] [facility] Work Phone: 01-06-2018 16:24-[address] [facility] Work Phone: Encounters Encounter Date Encounter Type Care Provider Facility Start: 11-30-2022 End: 11-30-2022 ambulatory Thiago Chandler Facility:[facility] Start: 11-30-2022 End: 11-30-2022 ambulatory DO Iftikhar Kemp Work Phone: [facility] Work Phone: Start: 11-30-2022 End: 11-30-2022 Patient encounter procedure DO Iftikhar Kemp Work Phone: [facility] Work Phone: Start: 11-03-2022 End: 11-03-2022 ambulatory Martha Yi Other [employer] Other Start: 11-03-2022 Office outpatient vi sit 25 minutes Martha Yi [facility] Start: 05-17-2022 End: 05-18-[address] IFTIKHAR KEMP Facility: Start: 02-22-2022 Letter encounter Shay martinez Start: 01-11-2022 End: 01-11-2022 ambulatory Thiago Chandler Facility:[facility] Start: 01-11-2022 End: 01-11-2022 ambulatory DO Iftikhar Kemp Work Phone: [facility] Work Phone: Start: 01-11-2022 End: 01-11-2022 Patient encounter procedure DO Iftikhar Kemp Work Phone: [facility] Start: 12-02-2021 Office outpatient vi sit 25 minutes Thiago Chandler [facility] Start: 12-02-2021 End: 12-02-2021 ambulatory DO Iftikhar Kemp Work Phone: [employer] Other Start: 12-02-2021 End: 12-02-2021 Patient encounter procedure DO Iftikhar Kemp Work Phone: [facility] Start: 11-04-2021 End: 11-04-2021 ambulatory Martha Yi Other [employer] Other Start: 11-04-2021 Office outpatient vi sit 25 minutes Martha Yi [facility] Start: 10-13-2021 End: 10-13-2021 Patient encounter procedure DO Iftikhar Kemp Work Phone: [facility] Start: 09-22-2021 ambulatory UNKNOWN PROVIDER Facili ty:[facility] Start: 09-22-2021 End: 09-22-2021 Patient encounter procedure Renetta Bautista DDS Work Phone: [facility] Start: 08-05-2021 End: 08-05-2021 ambulatory Thiago Chandler Other [place] [employer] Other Start: 08-05-2021 Office outpatient vi sit 25 minutes Thiago Chandler [facility] Start: 08-05-2021 End: 08-05-2021 Patient encounter procedure DO Iftikhar Kemp Work Phone: [facility] Start: 07-14-2021 End: 07-15-[address] DOCTOR RUSSELL Facility:[facility] Start: 06-08-2021 End: 06-09-2021 ambulatory UNKNOWN PROVIDER Facility:[facility] Start: 06-08-2021 End: 06-09-2021 Patient encounter procedure Vivi Clemons [facility] Work Phone: [facility] Start: 06-03-2021 End: 06-03-2021 ambulatory [facility] Start: 06-01-2021 End: 06-02-[address] IFTIKHAR KEMP Facility: Start: 05-27-2021 End: 05-27-2021 ambulatory [facility] Start: 05-27-2021 End: 05-27-2021 Office outpatient new 30 minutes Franck Carballo MD Work Phone: [facility] Comment on above: Esophageal dysphagia (Primary Dx); Food bolus obstruction of intestine (HCC) Start: 05-03-2021 End: 05-06-2021 Evaluation and management of inpatient ZULAY SVITLANA BECKHAM [facility] Start: 05-02-2021 End: 05-03-2021 Emergency department patient visit IFTIKHAR A [facility] Start: 07-08-2020 End: 07-09-2020 ambulatory IFTIKHAR [facility] Start: 07-08-2020 End: 07-08-2020 Subsequent hospital visit by physician Iftikhar Kemp DO Work Phone: [facility] Comment on above: Arrived Start: 04-02-2020 End: 04-02-2020 Orders Only Melissa Presley Work Phone: [facility] Start: 02-23-2019 End: 03-01-2019 Evaluation and management of inpatient Generic [facility] Work Phone: [facility] Comment on above: Acute metabolic ence phalopathy (Primary Dx) Start: 02-23-2019 End: 02-23-2019 Emergency department patient visit [facility] Start: 01-06-2018 End: 01-08-2018 Evaluation and management of inpatient JOAQUIN JOSE [facility] Start: 01-06-2018 End: 01-08-2018 Evaluation and management of inpatient [facility] Work Phone: COUNTS INCLUDE [facility] BEDS AT [facility] Comment on above: Pneumonia Procedures Date Procedure Procedure Detail Performing Clinician Start: 07-08-2020 Radiologic exam swal low function contrast study External Transcribed Start: 03-01-2019 Complete blood count with white cell differential, automated Idalia Durairaj Work Phone: Start: 03-01-2019 Complete blood [...] of arteri al blood gas studies Generic [facility] Work Phone: Start: 02-25-2019 OBTAIN ARTERIAL BLOO D GASES AND PERFORM Stuartankur Mcgrath Work Phone: Start: 02-25-2019 Videofluoroscopy swallow Stuartankur Mcgrath Work Phone: Start: 02-25-2019 Contrast echocardiography Holden Whiteside Work Phone: Start: 02-25-2019 [place] [Moles/volum e] in Serum or Plasma Stuart Mcgrath Work Phone: Start: 02-24-2019 Influenza virus A AN D B antigen assay Stuart Mcgrath Work Phone: Start: 02-24-2019 Evaluation of arteri al blood gas studies Generic [facility] Work Phone: Start: 02-24-2019 OBTAIN [...] Phone: Start: 02-24-2019 Hemoglobin A1c/Hemoglobin.total in Blood Holden Whiteside Work Phone: Start: 02-24-2019 Magnesium [Mass/volu [...] of arteri al blood gas studies Generic [facility] Work Phone: Start: 02-23-2019 Blood count hematocrit [facility] Start: 02-23-2019 Drugs of abuse [...] End: 01-08-2018 Assay of magnesium Bonnie J [employer] Phone: Start: 01-08-2018 End: 01-08-2018 CBC, EDIF, PLATELET Bonnie J GENIAC Phone: Start: 01-08-2018 End: 01-08-2018 Renal function panel Bonnie [employer] Phone: Start: 01-07-2018 End: 01-07-2018 CT of chest Bonnie J [facility] Phone: Start: 01-07-2018 End: 01-07-2018 Assay of magnesium Bonine J [facility] Phone: Start: 01-07-2018 End: 01-07-2018 CBC, EDIF, PLATELET Bonnie [employer] Phone: Start: 01-07-2018 End: 01-07-2018 Renal function panel Bonnie [employer] Phone: Start: 01-07-2018 End: 01-07-2018 Iaad ia mult step method nos each organism [employer] Phone: Start: 01-06-2018 End: 01-06-2018 Cul bact xcpt urine blood/stool aerobic isol Bonnie [employer] Phone: Start: 01-06-2018 End: 01-06-2018 C-reactive protein Bonnie [employer] Phone: Start: 01-06-2018 End: 01-06-2018 Sedimentation rate rbc non-automated Bonnie [employer] Phone: Start: 01-06-2018 End: 01-06-2018 Cultyp nuc [...] 2) Shingles (RZV) Vaccine (1 of 2) [facility] Start: 10-04-2028 Tetanus vaccination [facility] Start: 11-13-2021 Influenza vaccination Influenza Vaccine (#1) [facility] Start: 06-03-2021 End: 06-03-2021 Admission to same day surgery center 06/03/2021 Surgery Franck Carballo MD [facility] Allegra Bautista [place] [id number] ESOPHAGOGASTRODUODENOSCOPY [facility] Comment on above: ESOPHAGOGASTRODUODENOSCOPY Start: 06-03-2021 End: 06-03-2021 Esophagogastroduodenoscopy ESOPHAGOGASTRODUODENOSCOPY Esophageal dysphagia Food bolus obstruction of intestine (HCC) 06/03/2021 8:10 AM EDT [facility] Start: 06-03-2021 Subsequent hospital visit by physician 06/03/2021 Hospital Encounter Franck Carballo MD [address] Bautista [address] [address] [facility] Start: 10-14-2020 Influenza vaccination Sequential Influenza Vaccine (Season Ended) [facility] Start: 08-14-2020 COVID-19 Vaccine (3 - Booster for Pfizer series) COVID-19 Vaccine (3 - Booster for Pfizer series) [facility] Start: 05-12-2020 COVID-19 Vaccine (3 - Booster for Pfizer series) COVID-19 Vaccine (3 - Booster for Pfizer series) [facility] Start: 10-15-2019 Influenza vaccination given Sequential Influenza Vacci ne (#1) [facility] Start: 01-06-2019 Thyrotropin Qn TSH [facility] Work Phone: Start: 10-14-2018 Influenza vaccination given SEQUENTIAL INFLUENZA VACCI NE (#1) [facility] Start: 10-14-2017 Influenza vaccination INFLUENZA VACCINE (#1) [facility] Work Phone: Start: 08-22-2011 Third diphtheria, tetanus and acellular pertussis (DTaP) vaccination TDAP (ADULT) [facility] Work Phone: Start: 2010 Hepatitis C antibody, confirmatory test Hepatitis C Screening [facility] Start: 2010 Hepatitis C screening [facility] Start: 2010 Tetanus + diphtheria + acellular pertussis vaccine (product) Tdap Booster [facility] Start: 2010 Tetanus vaccination TETANUS [facility] Work Phone: Start: 08-22-2007 HIV screening [facility] Start: 2005 HIV screening HIV SCREENING DISCUSSION [facility] Work Phone: Start: 2004 Adolescent depression screening assessment Depression Screening (PHQ9) [facility] Start: 2004 COVID-19 Vaccine (1) COVID-19 Vaccine (1) [facility] Start: 2004 Depression screening using PHQ-9 (Patient Health Questionnaire 9) score [facility] Start: 08-22-1995 History and physical examination, annual for health maintenance Wellness Visit [facility] Start: 1992 Tetanus vaccination TETANUS EVERY 10 YR [facility] Bacteria identified Cx Nom (Bld) [facility] Work Phone: End: 02-23-2019 Bacteria identified Cx Nom (Bld) Blood Culture Aerobic/Anaerobic Microbiology Routine Once for 1 Occurrences starting 02/23/2019 until 02/23/2019 [facility] Comment on above: Once for 1 Occurrences starting 02/23/19 20 until 02/23/2019 CBC, EDIF, PLATELET CBC, EDIF, P LATELET Routine Every morning Lab until discontinued starting 01/07/2018, 2 completed [facility] Work Phone: Comment on above: Every morning Lab until discontinued sta rting 01/07/2018, 2 completed MAGNESIUM MAGNESIUM Routin e Every morning Lab until discontinued starting 01/07/2018, 2 completed [facility] Work Phone: Comment on above: Every morning Lab until discontinued sta rting 01/07/2018, 2 completed RENAL FUNCTION PANEL RENAL FUNCT ION PANEL Routine Every morning Lab until discontinued starting 01/07/2018, 2 completed [facility] Work Phone: Comment on above: Every morning Lab until discontinued sta rting 01/07/2018, 2 completed Standard ECG ECG STAT 018 12:02 PM EST [facility] Work Phone: Immunizations Immunization Date Immunization Notes Care Provider Vimal angulo 03-17-2020 COVID-19 Vaccine Pfizer - Documentation Purposes Only Thiago Chandler Other [employer] Other 02-25-2020 COVID-19 Vaccine Pfizer - Documentation Purposes Only Thiago Chandler Other [employer] Other 11-20-2019 influenza, injectabl e, quadrivalent, preservative free Vivi Deonte RDH Work Phone: [facility] 11-20-2019 influenza virus vaccine, unspecified formulation Renetta Freemanrial DDS Work Phone: [facility] 11-22-2017 influenza, injectabl e, quadrivalent, preservative free Vivi Deonte RDH Work Phone: [facility] 12-07-2016 influenza, injectabl e, quadrivalent, contains preservative Vivi Deonte RDH Work Phone: [facility] 11-18-2015 influenza, seasonal, injectable Vivi Deonte RDH Work Phone: [facility] 12-04-2014 influenza, injectabl e, quadrivalent, preservative free Vivi Deonte RDH Work Phone: [facility] 12-19-2013 influenza, injectabl e, quadrivalent, preservative free Vivi Deonte RDH Work Phone: [facility] 12-12-2012 influenza, seasonal, injectable Vivi Deonte RDH Work Phone: [facility] 12-07-2011 influenza, seasonal, injectable Vivi Deonte RDH Work Phone: [facility] 10-27-2010 influenza virus vaccine, whole virus Vivi Deonte RDH Work Phone: [facility] 12-31-2008 novel [id number], preservative-free, injectable Vivi Deonte RDH Work Phone: [facility] 07-12-2005 TD(adult) unspecifie d formulation Vivi Clemons [facility] Work Phone: [facility] Payers Date Payer Category Payer Self-pay [id number] 2019 Medicaid [place] xxxxxxxxxxxx 2019-Present [id number] 2019 Medicaid [place] [id number] 2019-Present [id number] 2019 Medicaid [id number] 1992 Unknown [id number] 1992 Unknown [id number] 1992 Unknown [id number] 1992 Unknown [id number] 1992 Unknown [id number] 1992 Unknown [id number] 1992 Unknown [id number] 1992 Unknown [id number] 1992 Unknown [id number] 1957 Medicaid [id number] Unknown [id number] Unknown [id number] Unknown [id number] Social History Date Type Detail Facility Start: 01-06-2018 End: 02-22-2019 Tobacco smoking status NHIS Never smoker [facility] Work Phone: Start: 1990 Sex Assigned At Not on file [facility] Work Phone: Start: 02-23-2019 End: 05-27-2021 Alcohol intake Lifetime non-drinker (finding) [facility] Start: 02-23-2019 End: 02-28-2019 History SDOH Alcohol Frequency 1 [facility] Start: 02-23-2019 End: 02-28-2019 Tobacco use and exposure Never used [facility] Start: 05-17-2021 End: 05-27-2021 Exposure to SARS-CoV-2 (event) Not sure [facility] Tobacco smoking status WYIS Tobacco smoking consumption unknown [facility] Sex Assigned At Sex Assigned At Bir th [employer] Other Start: 1990 Sex Assigned At Male F [facility] Clinical Notes 07-08-2020 to 11-03-2022 Note Date & Type Note Facility 11-03-2022 Evaluation note Encounter Date Diagnosis Assessment Notes Oct, Pulmonary hypertension (ICD-10 - I27.20) Oct, Sleep apnea in adult (ICD-10 - G47.33) Oct, Pickwickian syndrome (ICD-10 - E66.2) Oct, Pneumonia (ICD-10 - J18.9) Continue with aspiration prevention measures as you are [employer] Other 09-21-2023 History general Narrative - Reported* Type Description Date Medical History sleep apnea....Auto CPAP 8-12 wi th O2 at 3 liters Medical History Hypothyroidism Medical History cleft palate Medical History pulmonary HTN Medical History ADHD Medical History Seizure Disorder Surgical History Heart 2 holes upper and lower a t Surgical History tubes in ears Hospitalization History pneumonia [facility] 09/2018 Hospitalization History Sepsis [facility] 09/2018 Hospitalization [place] [facility] [place]/2018 Hospitalization History [facility] Lynnette eld Pneuminia 02/2019 [employer] Other 10-20-2022 Evaluation note* Encounter Date Diagnosis [...] responded to diuretics and to oxygen therapy [employer] Other 09-22-2022 Evaluation note* Encounter Date Diagnosis Assessment Notes Treatment Notes Treatment Clinical Notes Oct, Pulmonary hypertension (ICD-10 - I27.20) Oct, Sleep apnea in adult (ICD-10 - G47.33) Continue to follow Dr. Chandler recommendations. 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 Oct, Pickwickian syndrome (ICD-10 - E66.2) Oct, Pneumonia (ICD-10 - J18.9) [employer] Other 08-10-2022 History of Present illness Narrative* Michelle Singh DDS - 09/22/2021 10:00 AM EDT ----- Wednesday, September 22, 2021 at 11:33:21 AM ----- ----- Provider: [id number] - Michelle Singh, Resident -- Clinic: [place] ----- COMPOSITE ORIENTAL ORTHODOX Patient is scheduled for [facility] on tooth #22-MDF, 23-MDF, 24-MDF, 25-MDF, 26-MDF and 27 surface MDF. Reviewed Medical History. Pt exhibited the following conditions: Mental Disorders Patient is ready for treatment. Topical Benzocaine gel applied at the injection site for 2 minutes. Administered 1 carpules of Lidocaine, 2% with Epinephrine 1:100,000,. Decay/existing mandaeism removed, cavity prepared. Selectively etched enamel with 37% phosphoric acid, rinsed, and blot dried. OptiBond davidson applied and light-cured. Condensed packable composite shade in light cured increments using Mylar strip and wedge. Finished with finishing burs, checked occlusion, verified proximal contacts and mandaeism was polished. Rinsed and suctioned intraorally, advised [...] 2021 at 11:49:29 AM ----- ----- Provider: [id number] - Duc Zapata DDS -- Clinic: [place] ----- documented in this [id number] Evaluation note* Encounter Date Diagnosis Assessment Notes [...] responded to diuretics and to oxygen therapy [employer] Other 06-23-2022 History general Narrative - Reported* Type Description Date Medical History sleep apnea....Auto CPAP 8-12 O2 at 3 liters Medical History Hypothyroidism Medical History cleft palate Medical History pulmonary HTN Medical History ADHD Medical History Seizure Disorder Surgical History Heart 2 holes upper and lower a t Surgical History tubes in ears Hospitalization History pneumonia [facility] 09/2018 Hospitalization History Sepsis [facility] 09/2018 Hospitalization History [facility] [place] 12/2018 Hospitalization History [facility]. Manssravani eld Pneuminia 02/2019 [employer] Other 04-26-2022 History of Present illness Narrative* Vivi Clemons, [facility] - 06/08/2021 10:54 AM EDT [facility], Pt is ready for tx PT is [...] 6 month recall. Examination completed by /VALENTE [facility] [place]: mian ----- Signed on Tuesday, June 08, 2021 at 2:17:56 PM ----- ----- Provider: Emeterio Zapata DDS -- Clinic: [place] ----- documented in this [id number] NoteEXAMINATION: XR CHEST 2 V HISTORY: COVID-19 [...] Electronically authenticated by: ZULAY LYLE Date: 2021-06-01 11:36[facility]04-14-2022 History of Present illness Narrative* Franck [...] covid, recent covid positive documented in this [id number] Procedure note* Lazaro Figueredo SLP - 07/08/2020 8:30 AM EDT Procedure(s): MEDICAL EDUCATION COORDINATOR MODIFIED BARIUM SWALLOW Pre-Procedure Diagnose(s): Dysphagia, oropharyngeal Post-Procedure Diagnose(s): Dysphagia, oropharyngeal [facility] Speech Language Pathology Modified Barium Swallow Study Procedure Notes - Final Patient: Fahad Bernabe Date of : 1990 General Information: General Information Ordering Physician: Dr. Kemp Radiologist: Dr. rAana Type of Study: Initial MBS Mental Status: Alert, Oriented, Cooperative Oral Status: Permanent teeth Respiratory Status: Room air Feeding: Self View: Lateral Diet Prior to this Study: Thin liquid, Regular 8 Point Penetration-Aspiration Scale Honey: Not Tested [place]: Not Tested Thin: 2 - Material enters [...] or hypercapnia (HCC) [facility] Esophageal dysphagia- Primary Dysphagia, pharyngoesophageal phase Food bolus obstruction of intestine (HCC) Esophageal dysphagia Dysphagia, pharyngoesophageal phase Food bolus obstruction of intestine (HCC) Esophageal dysphagia Dysphagia, pharyngoesophageal phase Food bolus obstruction of intestine (HCC) [facility] Work Phone: History general Narrative - Reported* Type Description Date Medical History sleep apnea....Auto CPAP 8-12 wi th O2 at 3 liters Medical History Hypothyroidism Medical History cleft palate Medical History pulmonary HTN Medical History ADHD Medical History Seizure Disorder Surgical History Heart 2 holes upper and lower a t Surgical History tubes in ears Hospitalization History pneumonia [facility] 09/2018 Hospitalization History Sepsis [facility] 09/2018 Hospitalization History [facility] pneumonia 12/2018 Hospitalization History [facility] Lynnette eld Pneuminia 02/2019 [employer] Other Reason for Referral Status Reason Specialty Diagnoses / Procedures Referre d By Contact Referred To Contact Bonnie Shankar, SENIOR QUALITY ASSURANCE ANALYST-PANEL INSTRUMENT REPAIRER [address] [place] [address] Status Reason Specialty Diagnoses / Procedures Re ferred By Contact Referred To Contact New Request Procedures INPATIENT ADMISSION NOTIFICATION Joaquin Garcia MD [address] [id number] Status Reason Specialty Diagnoses / Procedures Referre d By Contact Referred To Contact Closed Procedures ECG Naida Masters, DANIA [address] [place] [address] Status Reason Specialty Diagnoses / Procedures Referred By Contact Referred To Contact Authorized Patient Preference Rehabilitation Diagnoses Acute metabolic encephalopathy Idalia Sims MD [address] [place] [address] Status Reason Specialty Diagnoses / Procedures Referre d By Contact Referred To Contact Closed Radiology Diagnoses Dyspepsia Acute respiratory failure, unspecified whether with hypoxia or hypercapnia (HCC) Procedures XR Modifed Barium Swallow Iftikhar Kemp, DO [address] [place] [address] Discharge Instructions * Discharge Instr - Diet - Brenna Fall RN - 01/08/2018 2:59 PM EST Resume pre-hospital diet As tolerated. * Discharge Instr - Activity - Brenna Fall RN - 01/08/2018 2:58 PM EST Resume pre-hospital activity as tolerated. The following attachments cannot be sent through Care Everywhere. * Benzonatate capsules (South African) * Prednisone tablets (South African) * Levofloxacin tablets (South African) * Adult, Pneumonia (South African) in this encounter* Discharge Instr- IP MEDICAL EDUCATION COORDINATOR* Idalia Sims MD - 03/01/2019 10:22 AM EST No straws, please follow aspriartion precautions * Discharge Instr - Care Coordination* Ivory Bhatia LISW - 02/25/2019 12:39 PM EST [facility] - [phone] FAX [phone] [employer] to transport patient - [phone]. * Attachments The following attachments cannot be sent through Care Everywhere. * Aspiration Pneumonia (South African) documented in this encounter History of Present [...] Status) full weight bearing Home Setting Residence (detention; mother assists with pt Hx) Lives With other (see comments) (detention; was home visiting mom when got ill) First floor bed/bathroom yes (all 1 level at detention) Number of Stairs to Enter Home (0 at detention; has a couple at mom's house) Number [...] Supine to Sit, Rehab Eval Level of Dawson: Supine/Sit other (see comments) (pt found up in chair; assistx1 c LIFE SCIENCE TEACHER this AM, per mother) Transfer Skill: Sit To Stand, Rehab Eval Dawson (Sit-Stand Transfers) contact guard Physical Assist/Nonphysical Assist: Sit/Stand set-up required;verbal cues;1 person assist (line managment needed) Weight-Bearing Restrictions: Sit/Stand full weight-bearing Assistive Device For Transfer: Sit/Stand (CGAx1 with gait belt only) Gait Skills, PT Eval Level of Dawson: Gait contact guard Physical Assist/Nonphysical Assist: Gait [...] to medical status) Stair Negotiation Level of Dawson: Stair Negotiation (held steps due to pt does not have at detention) Balance Additional Documentation (sitting = WNL; standing = good-) Sensory Examination Sensory Examination WFL General Interventions Planned Therapy Interventions balance training;bed mobility training;endurance;gait training;neuromuscular re- education;strengthening;transfer training;postural re-education [facility]IOR L[facility]EL [facility] Basic Mobility Inpatient Short Form Turning over in bed 4 - No Assistance Sitting/standing from chair 4 - No Assistance Moving from lying on back to sitting 4 - No Assistance Moving to and from bed to chair 4 - No Assistance Walk in hospital room 4 - No Assistance Climbing 3-5 steps with a railing 3 - A Little Assistance PRIOR LEVEL [facility] Mobility Raw Score [address] [facility] Mobility Functional Limitation/Modifier 11.20% Prior Functional Impairment in Basic Mobility - CI CURRENT [facility] Basic Mobility Inpatient Short Form Turning over [...] 2 - A Lot of Assistance CURRENT ST. [facility] Mobility Raw Score [address] [facility] [facility] Mobility Functional Limitation/Modifier 46.58% Currently Impaired in Basic Mobility - CK Projected [facility] Mobility Raw Score [address] [facility] Mobility Functional Limitation/Modifier 11.20% Projected Functional Impairment in Basic Mobility - CI Assessment Assessment Narrative Pt presents with limited activity tolerance and mild shortness of breath with mobility today related to medical status, and would benefit from skilled PT services during acute care stay to improve mobility tolerance and overall safety with all mobility. Discharge Recommendations pt to return to detention with HEP Clinical Impression Criteria for Skilled [...] comments) (at this time, anticipating return to detention with HEP) Plan Plan Narrative pt to be seen 1-2x/day during acute care stay Therapist Information License # [id number] Patient status at end of treatment/response to [...] treatment of this patient is transferred to [facility] Inpatient Physical Therapist following this evaluation. Dixie Alexander, PT, DPT #[id number] Time in: 836 AM Time out: 900 AM Billable time: 24 min Charges: Eval (low complexity) 1@24min Current anticipated discharge recommendation: anticipate pt to return to detention with HEP Patient demonstrates functional limitation in mobility: walking and moving around at CK 40-60 % impairment as evidenced by [facility]. Anticipated functional limitation status at discharge is CI 1-20 %. 01/07/2018 1:33 PM in this encounter* Damaris Yang LISW - 03/01/2019 10:27 AM EST DISCHARGE PLAN PROGRESS NOTE Date: 03/01/2019 Time: 10:27 AM Patient Name: Fahad Bernabe Date of : 1990 Sex: Male The patient is discharged today back to [facility]. Called the facility and spoke with Emilia. She said they [facility]. Faxed the referral and day of discharge bundle to the facility. Please call report to [phone]. Information faxed to [phone]. Patient's mother plans to transport the patient. Case closed at discharge. [facility] Disposition D/C Disposition: Another Health Care Institution Not Defined([facility] care facility.) Agency/Destination: ([facility]) Transportation Type: Auto(Mother, Edison to transport [phone]) Reason for Choice: Currently with agency Anticipated Discharge Plan Anticipated HME: Undetermined * Damaris Yang LISW - 02/28/2019 3:30 PM EST DISCHARGE PLAN PROGRESS NOTE Date: 02/28/2019 Time: 3:31 PM Patient Name: Fahad Bernabe Date of : 1990 Sex: Male Returned a call to [facility] [phone]. Discussed that the plan was to discharge thepatient back to their facility tomorrow. [facility] Disposition D/C Disposition: Another Health Care Institution Not Defined([facility] facility.) Agency/Destination: ([facility]) Transportation Type: Auto(Mother, Edison to transport [phone]) Reason for Choice: Currently with agency Anticipated Discharge Plan Anticipated HME: Undetermined * Idalia Sims MD - 02/28/2019 1:32 PM EST [facility] Medicine Inpatient Follow-up 02/28/2019 Idalia Sims MD [facility] Patient: Fahad Bernabe Date of : 1990 [...] Sims MD - 02/27/2019 3:54 PM EST [facility] Medicine Inpatient Follow-up 02/27/2019 Idalia Sims MD [facility] Patient: Fahad Bernabe Date of : 1990 [...] IMAGING: Reviewed 3:57 PM * Patricia Lema, MEDICAL EDUCATION COORDINATOR - 02/27/2019 8:50 AM EST Speech Pathology [...] Family/caregiver support Explain Environmental Factors: lives in detention in [place], mother very supportive - pt stays with [...] Assess for diet tolerance, Re-evaluate diet changes MEDICAL EDUCATION COORDINATOR Caregiver Readiness Working toward discharge home: Yes MEDICAL EDUCATION COORDINATOR Caregiver Training: Ongoing - Follow up required [...] Due to speech therapy recommendations this social security specialist contacted Kayleigh at [place]. Carmela reports that she spoke with Lina at [facility] in speech therapy about patient needs.Carmela states that a speech therapist visits [place] weekly and that she is aware that patient would need to be seen. Patient's step father was informed of need for speech therapy as patient's mother (reported guardian) is not available at this time. Patient's mother is home resting and taking a shower, per step father. Patient Information Primary Caregiver: Other (Comment)([facility] - [phone]) Discharge Planning Living Arrangements: Facility Support Systems: Parent, manager review/social security specialist, Other (Comment)(Mother Edison reports that she is guardian.) Assistance Needed: stand by Type of Residence: shelter Care Facility Name: ([facility].) Prior to Admission Home Care Services: No Patient expects to be discharged to:: [facility]. Mother Edison to transport. Does the patient need discharge transport arranged?: No Current Home Equipment: None, Oxygen Anticipated HME: Undetermined Anticipated Discharge Plan Anticipated HME: Undetermined [facility] Disposition D/C Disposition: Another Health Care Institution Not Defined([facility] care facility.) Agency/Destination: ([facility]) Transportation Type: Auto(Mother, Edison to transport [phone]) Reason for Choice: Currently with agency * Idalia Sims MD - 02/26/2019 2:01 PM EST [facility] Medicine Inpatient Follow-up 02/26/2019 Idalia Sims MD [facility] Patient: Fahad Bernabe Date of : 1990 [...] IMAGING: Reviewed 2:01 PM * Eda Arriaga, MEDICAL EDUCATION COORDINATOR - 02/26/2019 10:59 AM EST Speech Pathology [...] Family/caregiver support Explain Environmental Factors: lives in detention in [place], mother very supportive - pt stays with mother every other weekend Personal Factors: Awareness of own capacity and performance Explain Personal Factors: developmental delays and cognitive deficits, impulsivity Skilled Therapy Needs: dysphagia intervention for pt/caregiver training Recommendations: Provale Cup for volume control, small utensils for bolus portion mgmt MEDICAL EDUCATION COORDINATOR Caregiver Readiness Working toward discharge home: Yes MEDICAL EDUCATION COORDINATOR Caregiver Training: Ongoing - Follow up required [...] and optimize control).Stated I put you in [facility] . With emotional support, pt behaviors did [...] Mcgrath MD - 02/25/2019 1:00 PM EST [facility] Medicine Inpatient Follow-up 02/25/2019 Stuart Mcgrath MD [facility] Patient: Fahad Bernabe Date of : 1990 [...] Mcgrath MD - 02/24/2019 8:12 AM EST [facility] Medicine Inpatient Follow-up 02/24/2019 Stuart Mcgrath MD [facility] Patient: Fahad Bernabe Date of : 1990 [...] FoundDocuments on File Type Date Recorded Patient Business Management Consultant Expl anation Advance Directives and Emmie villanueva Will 02/23/2019 3:14 PM Guardianship Papers 02/23/2019 3:14 PM Latest Code Status on File Code Status Date Activated Date Inactivated Comments Full Code - Unverified 02/23/2019 9:21 PM Documents on File Type Date Recorded Patient Business Management Consultant Expl anation Advance Directives and Livin g Will 02/23/2019 11:06 PM Guardianship Papers 02/23/2019 3:14 PM Latest Code Status on File Code Status Date Activated Date Inactivated Comments Full Code - Unverified 02/23/2019 9:21 PM Documents on File Type Date Recorded Patient Business Management Consultant Expl anation Advance Directives and Livin g Will 02/23/2019 11:06 PM Guardianship Papers 02/23/2019 3:14 PM Documents on File Type Date Recorded Patient Business Management Consultant Expl anation Advance Directives and Livin g Will 07/08/2020 11:06 PM Guardianship Papers 02/23/2019 3:14 PM Guardianship Papers 07/08/2020 12:00 AM Documents on File Type Date Recorded Patient Business Management Consultant Expl anation Advance Directives and Livin g [...] HOSPITALIST DISCHARGE SUMMARY Patient: Fahad Bernabe Account: [id number] Admitted: 02/23/2019 Discharge Date/Time: 03/01/2019 Clinical Summary [...] for which he is nonadherent. Transferred to [facility] for aspiration pneumonia and acute on chronic [...] next recommendation would be for tracheostomy per manager army Obstructive Sleep Apnea - pt underwent sleep [...] with tracheostomy -Patient to follow-up with his manager army as an outpatient Acute on Chronic Respiratory [...] Kemp DO, Phone: None, Address: [address] [facility] [address] Follow Up: Iftikhar Kemp DO [address] [place] [address] Follow up in 1 week(s) Patient instructions, [...] XR Modifed Barium Swallow Iftikhar Kemp DO [address] [place] [address] Reason Comments Consult EGD (unrecognized sect ion and content) No Status Records FoundNo Status Records FoundNo Status Records FoundNo Status Records FoundNo Status Records FoundNo Status Records FoundNo Status Records Found INFORMATION SOURCE (unrecogn ized section and content) DATE CREATED AUTHOR 01/22/2018 [facility] DATE CREATED AUTHOR AUTHOR'S ORGANIZ ATION 05/28/2021 [facility] DATE CREATED AUTHOR AUTHOR'S ORGANIZ ATION 05/28/2021 [facility] DATE CREATED AUTHOR AUTHOR'S ORGANIZ ATION 06/05/2021 [facility] DATE CREATED AUTHOR AUTHOR'S ORGANIZ ATION 09/28/2021 [facility] DATE CREATED AUTHOR AUTHOR'S ORGANIZ ATION 05/23/2022 [facility] DATE CREATED AUTHOR AUTHOR'S ORGANIZ ATION 12/05/2022 [facility] Vicki Coleman RN - 02/23/2019 1:36 PM EST ED Notes (unrecognized secti on and content) Per parent report pt was seen yesterday at another ED yesterday and dx with pneumonia and dc with antibiotics. Pt started having trouble staying awake today. documented in this encounter Holden Whiteside MD - 02/23/2019 9:22 PM EST H&P Notes (unrecognized sect ion and content) [facility] Medicine Inpatient H&P 02/23/2019 Holden Whiteside MD [facility] Patient: Fahad Bernabe Date of : 1990 [...] for the last year was seen at [facility] emergency department due to cough and for unresponsiveness. Patient was diagnosed yesterday at [facility] emergency department with a pneumonia and was [...] for the last year was seen at [facility] emergency department due to cough and for unresponsiveness. Patient was diagnosed yesterday at [facility] emergency department with a pneumonia and was started on antibiotics. Patient is a resident of a [facility] in [place]. His mother went to pick him up [...] PM documented in this encounter Eda Arriaga, MEDICAL EDUCATION COORDINATOR - 02/25/2019 10:00 AM EST Procedure Notes (unrecognize d section and content) Procedure(s): MEDICAL EDUCATION COORDINATOR MODIFIED BARIUM SWALLOW Pre-Procedure Diagnose(s): Dysphagia, unspecified type Post-Procedure Diagnose(s): Oropharyngeal dysphagia [facility] Speech Language Pathology Modified Barium Swallow Study [...] Explain Environmental Factors supportive mother, lives in detention in [facility] lives in detention in [place], mother very supportive - pt stays with [...] 23 Down syndrome currently a resident of [facility], presenting with hypoxic respiratory failure CO2 narcosis and sleep apnea. Neurology was consulted by the primary team for evaluation of neurological causes of encephalopathy. He lives at the [facility] but is being checked on by [...] given his improvement. DAMIAN GRIGSBY, MSc, . [email or web address] Staff Neurologist & Movement Disorder Specialist [facility] (Adj Asst: Professor, [employer] Dept of Neurology) Jany Allegra BautistaCRISTOBAL [facility]# [id number], [facility] [address] Clinic (Appointments) Fax: [phone] Attestation: Time statement: A total of 50 minutes were spent on this encounter either in the patient's room or on the patient's hospital unit and over half of that time was spent on [id number] counseling and/or coordination of care. This note was dictated using [employer] a speech-recognition software. Syntax errors and sound-alike substitutions which may escape proofreading could be present. In such instances, the actual meaning can be extrapolated from the context. Associated Order(s): IP CONSULT TO PULMONOLOGY PULMONOLOGY CONSULT 02/26/2019 Patient: Fahad Bernabe Date of : 1990 Site: [facility] Referring Provider: Refer to consult order in electronic medical record Provider: Kathryn Lawrence CNP ASSESSMENT/PLAN: Fahad Bernabe 28 y.o. male with history of Down syndrome, ADHD, Depression, Hypothryoidism, OCD, Seizures, open heart surgery for childhood ASD/VSD, HTN, aspiration pneumonia, obstructive sleep apnea on CPAP for which he is nonadherent. Transferred to [facility] for aspiration pneumonia and acute on chronic [...] is a 28 y.o. male presenting from [facility] with complaint of lethargy and was evaluated at [facility] where he was diagnosed with Pneumonia and discharged home with antibiotics. Mother took patient home with her that evening and presents to [facility] ED the following day for worsened lethargy, fever, and cough. B/L interstitial edema noted and patient transferred to [facility] for respiratory failure. Pt with history of [...] December. Patient not able to contribute to LUMMI or ROS. Information obtained from mother and [...] tablet 1 tablet 1 tablet Oral Q12H [facility] Idalia Sims MD 1 tablet at 02/26/19 [...] 40 mg 40 mg Subcutaneous BID [facility] Duong [facility],PharmD famotidine (PEPCID) tablet 20 mg 20 mg [...] Sex: Male Patient Information Primary Caregiver: Other (Comment)([facility] - [phone]) Initial assessment completed with patient's mother, Edison. Patient was present during assessment. Patient's mother Edison reports that she is patient's guardian. This social security specialist requested that Edison bring in a copy of guardianship paperwork for patient's chart. Edison reports that patient resides [facility], [facility]. Patient does need 24 hour supervision due to flight risk. PING Hendricks is aware and reports that a break away alarm is placed on patient. This social security specialist contacted Pavithra at [facility]. Pavithra reports that patient can return at discharge. Pavithra informed that Edison plans to transport patient when patient is ready for discharge. Pavithra reports that patient was on 2 liters of oxygen at night while at [place]. Pavithra requested discharge paperwork when patient is discharged from the hospital. [place] [phone] FAX [phone]. Discharge Planning Living Arrangements: Facility Support Systems: Parent, manager review/social security specialist, Other (Comment)(Mother Edison reports that she is guardian.) Assistance Needed: stand by Type of Residence: shelter Care Facility Name: ([facility].) Prior to Admission Home Care Services: No Patient expects to be discharged to:: [facility]. Mother Edison to transport. Does the patient need discharge transport arranged?: No Current Home Equipment: None, Oxygen Anticipated HME: Undetermined Anticipated Discharge Plan Anticipated HME: Undetermined [facility] Disposition D/C Disposition: Another Health Care Institution Not Defined([facility] Agency/Destination: ([facility]) Transportation Type: Auto(MotherEdison to transport [phone]) Reason for Choice: Currently with agency Speech [...] Explain Environmental Factors: supportive mother, lives in detention in [facility] Personal Factors: Awareness of own capacity and performance Explain Personal Factors: premorbid cognitive deficits Skilled Therapy Needs: Anticipate Resolution of Current Assessment Limitations Including: (acute pulmonary deficit) Are Skilled Therapy Services Needed After Discharge: Yes Intensity of Skilled Therapy: (to be determined per MBS) Anticipated Duration of Skilled Therapy: (pending MBS) MEDICAL EDUCATION COORDINATOR Caregiver Readiness Working toward discharge home: Yes MEDICAL EDUCATION COORDINATOR Caregiver Training: Ongoing - Follow up required [...] Estimated Needs: 1800-2000cal Method for Estimating Needs: [id number] Total Protein Estimated Needs: 79gms Method for [...] and instructions Outcome: Met Possible discharge to [facility] tomorrow. Problem: Falls, Risk of Goal: [...] Patient with bathroom needs per mother at [facility]. Will follow up as appropriate. Associated Problem(s): [...] discharge order. Care management consulted. Patient from [facility] in [place]. Problem: Pain Goal: Manage acute pain Outcome: [...] Active Thiago Chandler MD Attending Provider Active Fire Regulator Relationship Specialty Start Date End Date Iftikhar Kemp DO [facility] [place] [id number] PCP - General Endocrinology/Metabolism 02/23/19 Goals (unrecognized [...] BE BASED ON THE PRIMARY CLINICAL RECORDS. [facility]. provides no warranty or guarantee of the accuracy or completeness of information in this document.
[2023-04-08 19:41] LABS: PROCALCITONIN 6.17 ng/mL (0.00-0.50)
[2023-04-08] MEDS: BUDESONIDE 0.5 MG/2 ML AMPULE NEB IH (20:39)
--- NOTE | 2023-04-08 20:39 | RESP.RT ---
titrated down to 3L
[2023-04-08 21:31] LABS: Lactate/Lactic Acid 3.4 mmol/L (0.4-2.0)
[2023-04-08] MEDS: CARBAMAZEPINE 200 MG TABLET PO (22:48)
[2023-04-08] MEDS: LITHIUM CARBONATE 150 MG CAPSULE 300 MG PO (22:49)
[2023-04-08] MEDS: BENZONATATE 100 MG CAPSULE PO (22:49)
[2023-04-08] MEDS: GABAPENTIN 100 MG CAPSULE PO (22:49)
[2023-04-08] MEDS: LORAZEPAM 1 MG TABLET 2 MG PO (22:49)
[2023-04-08] MEDS: LACTATED RINGER'S SOLUTION 1,000 ML 125 ML IV (22:50)
[2023-04-08] MEDS: risperiDONE 1 MG TABLET PO (22:50)
[2023-04-08] MEDS: PIPERACILLIN SODIUM/TAZOBACTAM 3.375 GM in 0.9 % SODIUM CHLORIDE 50 ML IV (22:50)
[2023-04-08] MEDS: ACETAMINOPHEN 325 MG TABLET 650 MG PO (23:06)
[2023-04-09] VITALS (21 sets, daily range): BP systolic 100–119; BP diastolic 57–78; PULSE 65–104; RESP 18–24; TEMP 36.5–37.7; O2SAT 85–97
--- NOTE | 2023-04-09 | PC.NURSE ---
Physician notified about repeat lactic draw due to patient sleeping. Labs reviewed and oked to wait until AM lab draw
[2023-04-09] MEDS: IPRATROPIUM/ALBUTEROL SULFATE 3 ML AMPUL.NEB IH ×4 (04:45→20:00)
--- NOTE | 2023-04-09 04:45 | RESP.RT ---
titrated down to 2L
[2023-04-09 05:20] LABS: pH VBG 7.396 (7.330-7.430)
[2023-04-09 05:21] LABS: PCO2 VBG 52.9 mmHg (40.0-52.0)
[2023-04-09 05:24] LABS: Basophils Percent Auto 0.4 % (0.2-2.0); Hematocrit 35.2 % (42.0-54.0); Hemoglobin 10.9 g/dL (14.0-18.0); Immature Granulocytes Abs Auto 0.03 10^3/uL (0.00-0.03); Immature Granulocytes Pct Auto 0.3 % (0.0-0.5); Lymphocytes Absolute Auto 1.8 10^3/uL (1.2-3.8); Lymphocytes Percent Auto 19.8 % (20.5-60.0); Mean Corpuscular Hemoglobin 33.2 pg (25.9-34.0); Mean Corpuscular Volume 107.3 fL (80.0-94.0); Mean Platelet Volume 9.8 fL (9.5-13.5); Monocytes Percent Auto 10.6 % (1.7-12.0); Neutrophils Absolute Auto 6.4 10^3/uL (1.4-6.5); Neutrophils Percent Auto 68.9 % (43.0-75.0); Platelet Count 211 10^3/uL (150-450); Red Blood Count 3.28 10^6/uL (4.70-6.10); Red Cell Distribution Width 13.1 % (11.0-15.0); White Blood Count 9.3 10^3/uL (4.0-11.0)
[2023-04-09 05:49] LABS: Lactate/Lactic Acid 1.2 mmol/L (0.4-2.0)
[2023-04-09 05:54] LABS: Alanine Aminotransferase 17 U/L (16-63); Albumin Globulin Ratio 0.5; Albumin Level 2.3 g/dL (3.4-5.0); Alkaline Phosphatase 55 U/L (46-116); Anion Gap 7.8; Aspartate Amino Transferase 21 U/L (15-37); BUN Creatinine Ratio 11.2; Bilirubin Total 0.3 mg/dL (0.2-1.0); Calcium 8.8 mg/dL (8.5-10.1); Carbon Dioxide 33.1 mmol/L (21.0-32.0); Chloride 107 mmol/L (98-107); Estimated GFR (African America >60 (>=60); Estimated GFR (Non-African Ame 54 (>=60); Globulin 4.7 g/dL; Glucose 97 mg/dL (74-106); Potassium 3.9 mmol/L (3.5-5.1); Sodium 144 mmol/L (136-145)
--- NOTE | 2023-04-09 06:00 | XR_ITS ---
The [address] [address] Patient Name: FAHAD BERNABE MRN: [id number] date: 1990 Sex: M Assigned Patient Location: MS Current Patient Location: Accession/Order Number: [id number] Exam Date: 04/09/2023 06:10 Report Date: 04/09/2023 09:25 At the request of: FREDIS MARR Procedure: XR chest 1V CLINICAL HISTORY: shortness of breath. EXAMINATION: Portable AP upright chest: 04/09/2023 at 0539 hours. COMPARISON: Portable chest: 04/09/2023. FINDINGS: Patient remains slightly rotated. The patient is kyphotic. The patient's chin seems to be overlying the upper hemothorax. The heart size remains normal. The trachea is midline. There is slight widening appearance mediastinum probably positional. There are low lung volumes with patchy densities particularly mid to lower lung on the right. The remaining lungs otherwise appear clear. There is no pulmonary edema or pneumothorax. XR/XR chest 1V IMPRESSION: 1. Continued low lung volumes. 2. Increased density mid to lower lung on the right, concerning for pneumonia. Electronically authenticated by: ADARSH MSA Date: 04/09/2023 09:25
[2023-04-09] MEDS: risperiDONE 1 MG TABLET PO ×4 (06:07→20:48)
[2023-04-09] MEDS: GABAPENTIN 100 MG CAPSULE PO ×4 (06:07→20:49)
[2023-04-09] MEDS: PIPERACILLIN SODIUM/TAZOBACTAM 3.375 GM in 0.9 % SODIUM CHLORIDE 50 ML IV ×3 (06:08→22:18)
[2023-04-09] MEDS: BENZONATATE 100 MG CAPSULE PO (06:08)
--- NOTE | 2023-04-09 08:24 | P.HP_ITS ---
H&P: HPI History of Present Illness Chief complaint: FLU SYMPTOMS, HYPOXEMIA, R/O PNEUMONIA Narrative: patient is a 32-year-old male with past medical history of MRDD, bipolar disorder, seasonal ALLERGIES, hypothyroidism who presented to the Emergency Room afterhaving some shortness of breath. He has also developed a cough and was started on a Z-Sam at the outpatient facility the day prior to admission. His pulse ox on arrival to the Emergency Room was eighty-three percent on room air so he was placed on nasal cannula oxygen. He is not on any oxygen at the facility. He does have obstructive sleep apnea and wears a CPAP at nighttime.his mom is present at the time of admission exam and she states that he has not been hospitalized in over a year. Patient does understand some questions but answers then inappropriately. With his MRDD he has a significant cognitive delay. At times he is cooperative and other times he is combative and spits at staff. his cough is quite coarse with sputum production. no current fevers or other complaints. Review of Systems ROS Status of ROS unobtainable due to mental status [facility] Medical History (Updated 04/09/23 @ 15:08 by Padmini Wiseman DO) Pulmonary hypertension ?I27.20 - Pulmonary hypertension, unspecified (ICD-10) Pickwickian syndrome ?E66.2 - Morbid (severe) obesity with alveolar hypoventilation (ICD-10) Chronic constipation ?K59.09 - Other constipation (ICD-10) Eczema ?L30.9 - Dermatitis, unspecified (ICD-10) Sleep apnea ?G47.30 - Sleep apnea, unspecified (ICD-10) Dyspepsia ?R10.13 - Epigastric pain (ICD-10) Obsessive compulsive disorder ?F42.9 - Obsessive-compulsive disorder, unspecified (ICD-10) Bipolar 1 disorder ?F31.9 - Bipolar disorder, unspecified (ICD-10) Hypothyroid ?E03.9 - Hypothyroidism, unspecified (ICD-10) 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, unspecified (ICD-10) ?F69 - Unspecified disorder of adult personality and behavior (ICD-10) Aspiration into airway ?T17.908A - Unspecified foreign body in respiratory tract, part unspecified causing other injury, initial encounter (ICD-10) Surgical History H/O heart surgery ?Z98.890 - Other specified postprocedural states (ICD-10) Family History Father Family history of cancer Social History Smoking status: Never smoker Gender Identity: male Meds Home Medications and Allergies Home Medications Medication Instructions Recorded Confirmed Type acetaminophen 325 mg capsule 325 mg PO Q4H PRN 04/08/23 04/08/23 History albuterol sulfate 2.5 mg/3 mL mg 04/08/23 History (0.083 %) solution for nebulization azithromycin 250 mg tablet 250 mg PO .Daily at 199904/08/23 04/08/23 History bacitracin zinc 500 unit/gram topical TID Boils 04/08/23 History topical ointment benzonatate 100 mg capsule 100 mg PO TID 04/08/23 04/08/23 History benzoyl peroxide 5 % topical topical 04/08/23 History cleanser bisacodyl 10 mg rectal suppository 10 mg MD DAILY 04/08/23 04/08/23 History (Laxative (bisacodyl)) carbamazepine 200 mg tablet 200 mg PO 0800,199904/08/23 04/08/23 History chlorpromazine 10 mg tablet 10 mg PO 0800 04/08/23 04/08/23 History chlorpromazine 25 mg tablet 25 mg PO 159904/08/23 04/08/23 History chlorpromazine 50 mg tablet 50 mg PO 199904/08/23 04/08/23 History clindamycin phosphate 1 % lotion topical 04/08/23 History clonidine HCl 0.2 mg tablet 0.2 mg PO .0800,1200, 199904/08/23 04/08/23 History dihydroxyaluminum sodium carb 334 mg PO 04/08/23 History mg chewable tablet divalproex 250 mg tablet,delayed 500 mg PO 0800 04/08/23 04/08/23 History release divalproex 500 mg tablet,delayed 500 mg PO 199904/08/23 04/08/23 History release famotidine 20 mg tablet 20 mg PO 1200 04/08/23 04/08/23 History fluticasone propionate 0.05 % applic topical 04/08/23 History topical cream furosemide 20 mg tablet 20 mg PO BID 04/08/23 04/08/23 History gabapentin 100 mg capsule 100 mg PO TID 04/08/23 04/08/23 History guaifenesin 400 mg tablet (Chest 400 mg PO BID 04/08/23 04/08/23 History Congestion Relief) ketoconazole 2 % shampoo topical 04/08/23 History ketoconazole 2 % topical cream 1 applic topical DAILY 04/08/23 04/08/23 History levothyroxine 150 mcg tablet 150 mcg PO DAILY 04/08/23 04/08/23 History lithium carbonate 300 mg capsule 300 mg PO BEDTIME 04/08/23 04/08/23 History loperamide 2 mg capsule 2 mg PO QID 04/08/23 04/08/23 History loratadine 10 mg tablet 10 mg PO DAILY 04/08/23 04/08/23 History lorazepam 2 mg tablet 2 mg PO BEDTIME 04/08/23 04/08/23 History montelukast 10 mg tablet 10 mg PO .once daily 04/08/23 04/08/23 History ondansetron 4 mg disintegrating 4 mg PO Q6H 04/08/23 04/08/23 History tablet risperidone 1 mg tablet 1 mg PO TID 04/08/23 04/08/23 History sennosides 8.6 mg capsule (senna) 8.6 mg PO DAILY 04/08/23 04/08/23 History sennosides 8.6 mg tablet (senna) 8.6 mg PO BID 04/08/23 04/08/23 History sulfacetamide sodium 10 % topical 1 applic topical DAILY 04/08/23 04/08/23 History cleanser, gel sulfacetamide sodium 10 % topical 1 applic topical DAILY 04/08/23 04/08/23 History cleanser, gel tacrolimus 0.1 % topical ointment 1 applic topical BID 04/08/23 04/08/23 History vilazodone 20 mg tablet 20 mg PO .morning 04/08/23 04/08/23 History vitamin B complex cap 04/08/23 History Allergies Allergy/AdvReac Type Severity Reaction Status Date / Time naproxen AdvReac Verified 04/08/23 14:43 Exam Narrative Exam Narrative: General: Patient is alert, and oriented to person, mostly smiles when asked a question but also tells me to get out Skin: no visible rashes, or ulcers Head: atraumatic Eyes: PERRLA, no nystagmus present, conjunctiva clear, no scleral icterus Ears: normal gross auditory acuity Neck: no masses palpated Heart: Normal rate and rhythm, no murmurs/rubs/gallops Lungs: audible wheezes, no crackles and diminished breath sounds all lung batista Abdomen: Normal audible bowel sounds, no distension, No palpable masses, no organomegaly, no rebound/guarding/ or rigidity Musculoskeletal: no swelling bilateral lower extremities Neuro: CN II-X grossly intact Constitutional Vital Signs, click to edit/add: Last Vital Signs Temp 97.7 F 04/09/23 05:12 Pulse 79 04/09/23 08:00 Resp 20 04/09/23 05:12 BP 119/78 04/09/23 05:12 Pulse Ox 93 L 04/09/23 05:12 O2 Del Method Nasal Cannula 04/09/23 05:12 O2 Flow Rate 2 04/09/23 05:12 Results Labs Labs: Short CBC 04/08/23 04/09/23 Range/Units 14:28 05:09 WBC 12.1 H 9.3 (4.0-11.0) 10^3/uL Hgb 12.8 L 10.9 L (14.0-18.0) g/dL Hct 40.3 L 35.2 L (42.0-54.0) % Plt Count 238 211 (150-450) 10^3/uL BMP 04/08/23 04/09/23 14:28 05:09 Sodium 145 144 Potassium 3.8 3.9 Chloride 104 107 Carbon Dioxide 32.4 H 33.1 H BUN 19.0 H 17.0 Creatinine 1.94 H 1.52 H Glucose 121 H 97 Calcium 8.7 8.8 Liver Function 04/08/23 04/09/23 Range/Units 14:28 05:09 Total Bilirubin 0.3 0.3 (0.2-1.0) mg/dL AST 24 21 (15-37) U/L ALT 23 17 (16-63) U/L Alkaline Phosphatase 68 55 (46-116) U/L Albumin 2.6 L 2.3 L (3.4-5.0) g/dL ABG ABG results: 04/08/23 04/09/23 14:59 05:09 VBG pH 7.358 7.396 VBG pCO2 55.1 H 52.9 H Assessment and Plan Assessment and Plan (1) RSV (acute bronchiolitis due to respiratory syncytial virus): Assessment and Plan: supportive therapy with oxygen,inhaled budesonide, albuterol and scheduled DuoN eb's. O PEP therapy (2) Acute bronchitis due to Rhinovirus: Assessment and Plan: see #1, supportive care (3) Right lower lobe pneumonia: Assessment and Plan: could be secondary to respiratory syncytial virus or rhinovirus but will also treat for secondary bacterial pneumonia continue Zosyn. chest x-ray consistent with right middle and right lower lobe pneumonia. (4) Bipolar 1 disorder: Assessment and Plan: continue home medications (5) Mental and behavioral problem: Assessment and Plan: continue home medications (6) Hypothyroid: Assessment and Plan: continue home medications (7) Sleep apnea: Assessment and Plan: continue CPAP (8) Pulmonary hypertension: Plan patient is a full code Will continue Lovenox for deep vein thrombosis prophylaxis Patient as inpatient status and is expected to cross two midnights for medical necessary care
[2023-04-09] MEDS: CARBAMAZEPINE 200 MG TABLET 400 MG PO ×2 (10:23→20:49)
[2023-04-09] MEDS: CHLORPROMAZINE 10 MG 20 EACH PO (10:23)
[2023-04-09] MEDS: CLONIDINE HCL 0.2 MG TABLET PO ×3 (10:24→20:50)
[2023-04-09] MEDS: DIVALPROEX SODIUM 250 MG TABLET.DR PO ×2 (10:24→20:48)
[2023-04-09] MEDS: FUROSEMIDE 20 MG TABLET PO ×2 (10:24→16:20)
[2023-04-09] MEDS: VITAMIN B COMPLEX 1 EACH PO (10:25)
[2023-04-09] MEDS: SENNOSIDES 8.6 MG TABLET PO (10:26)
[2023-04-09] MEDS: VILAZODONE 20 MG 30 EACH PO (10:26)
[2023-04-09] MEDS: BUDESONIDE 0.5 MG/2 ML AMPULE NEB IH ×2 (10:52→20:00)
--- NOTE | 2023-04-09 11:13 | RESP.RT ---
SpO2 87-90% ON ROOM AIR; PLACED ON 2 LPM NC
[2023-04-09] MEDS: FAMOTIDINE 20 MG TABLET PO (11:54)
[2023-04-09] MEDS: LACTATED RINGER'S SOLUTION 1,000 ML 125 ML IV (13:27)
[2023-04-09] MEDS: CHLORPROMAZINE 25 MG 25 EACH PO (16:19)
[2023-04-09] MEDS: LEVOTHYROXINE 150 MCG 1 EACH PO (16:20)
--- NOTE | 2023-04-09 16:28 | RESP.RT ---
PLACED ON 2 LPM NC
[2023-04-09] MEDS: CHLORPROMAZINE 50 MG 150 EACH PO (20:47)
[2023-04-09] MEDS: DIVALPROEX SODIUM 500 MG TABLET.DR 1500 MG PO (20:48)
[2023-04-09] MEDS: LITHIUM 300 MG 1 EACH PO (20:50)
[2023-04-09] MEDS: SENNOSIDES 8.6 MG TABLET 17.2 MG PO (20:50)
[2023-04-09] MEDS: MONTELUKAST SODIUM 10 MG TABLET PO (22:13)
[2023-04-09] MEDS: LORAZEPAM 1 MG TABLET 2 MG PO (22:13)
[2023-04-10] VITALS (26 sets, daily range): BP systolic 101–123; BP diastolic 62–75; PULSE 59–91; RESP 16–22; TEMP 36–36.6; O2SAT 86–98
[2023-04-10 05:20] LABS: Basophils Percent Auto 0.6 % (0.2-2.0); Eosinophils Percent Auto 0.5 % (0.9-7.0); Hematocrit 37.2 % (42.0-54.0); Hemoglobin 11.3 g/dL (14.0-18.0); Immature Granulocytes Abs Auto 0.02 10^3/uL (0.00-0.03); Immature Granulocytes Pct Auto 0.3 % (0.0-0.5); Lymphocytes Absolute Auto 1.5 10^3/uL (1.2-3.8); Lymphocytes Percent Auto 23.6 % (20.5-60.0); Mean Corpuscular HGB Conc 30.4 g/dL (29.9-35.2); Mean Corpuscular Hemoglobin 33.2 pg (25.9-34.0); Mean Corpuscular Volume 109.4 fL (80.0-94.0); Mean Platelet Volume 9.7 fL (9.5-13.5); Monocytes Absolute Auto 0.6 10^3/uL (0.3-0.8); Monocytes Percent Auto 9.1 % (1.7-12.0); Neutrophils Absolute Auto 4.3 10^3/uL (1.4-6.5); Neutrophils Percent Auto 65.9 % (43.0-75.0); Platelet Count 225 10^3/uL (150-450); Red Cell Distribution Width 13.2 % (11.0-15.0); White Blood Count 6.5 10^3/uL (4.0-11.0)
[2023-04-10] MEDS: PIPERACILLIN SODIUM/TAZOBACTAM 3.375 GM in 0.9 % SODIUM CHLORIDE 50 ML IV ×3 (05:31→21:07)
[2023-04-10 05:50] LABS: Alanine Aminotransferase 17 U/L (16-63); Albumin Globulin Ratio 0.4; Albumin Level 2.2 g/dL (3.4-5.0); Alkaline Phosphatase 54 U/L (46-116); Anion Gap 10.7; Aspartate Amino Transferase 20 U/L (15-37); BUN Creatinine Ratio 10.5; Bilirubin Total 0.2 mg/dL (0.2-1.0); Calcium 8.9 mg/dL (8.5-10.1); Carbon Dioxide 32.6 mmol/L (21.0-32.0); Chloride 111 mmol/L (98-107); Estimated GFR (African America >60 (>=60); Estimated GFR (Non-African Ame >60 (>=60); Glucose 97 mg/dL (74-106); Potassium 4.3 mmol/L (3.5-5.1); Sodium 150 mmol/L (136-145); Total Protein 7.2 g/dL (6.4-8.2)
[2023-04-10] MEDS: LACTATED RINGER'S SOLUTION 1,000 ML 125 ML IV ×3 (07:13→13:28)
[2023-04-10] MEDS: CARBAMAZEPINE 200 MG TABLET 400 MG PO ×2 (07:59→21:04)
[2023-04-10] MEDS: CHLORPROMAZINE 10 MG 20 EACH PO (08:00)
[2023-04-10] MEDS: CLONIDINE HCL 0.2 MG TABLET PO ×3 (08:00→21:06)
[2023-04-10] MEDS: DIVALPROEX SODIUM 500 MG TABLET.DR PO (08:01)
[2023-04-10] MEDS: DIVALPROEX SODIUM 250 MG TABLET.DR PO ×2 (08:01→21:02)
[2023-04-10] MEDS: FUROSEMIDE 20 MG TABLET PO ×2 (08:01→15:26)
[2023-04-10] MEDS: risperiDONE 1 MG TABLET PO ×3 (08:02→21:02)
[2023-04-10] MEDS: GABAPENTIN 100 MG CAPSULE PO ×3 (08:02→21:03)
[2023-04-10] MEDS: VITAMIN B COMPLEX 1 EACH PO (08:02)
[2023-04-10] MEDS: VILAZODONE 20 MG 30 EACH PO (08:03)
[2023-04-10] MEDS: SENNOSIDES 8.6 MG TABLET PO (08:03)
--- NOTE | 2023-04-10 08:58 | PM.PN ---
Progress Note: Subjective Subjective Interval history: Patient appears much more comfortable and rested today. She denies any complaints. Still requiring oxygen to maintain his stats. some abdominal pain but has not had BM for a few days. No fevers. still coughing but less harsh. Exam Narrative Exam Narrative: General: Patient is alert, and oriented to person, mostly smiles and appears comfortable Skin: no visible rashes, or ulcers Head: atraumatic Eyes: PERRLA, no nystagmus present, conjunctiva clear, no scleral icterus Ears: normal gross auditory acuity Neck: no masses palpated Heart: Normal rate and rhythm, no murmurs/rubs/gallops Lungs: audible wheezes, no crackles and diminished breath sounds all lung batista Abdomen: Normal audible bowel sounds, no distension, No palpable masses, no organomegaly, no rebound/guarding/ or rigidity Musculoskeletal: no swelling bilateral lower extremities Neuro: CN II-X grossly intact Constitutional Vital Signs, click to edit/add: Last Vital Signs Temp 97.5 F L 04/10/23 07:30 Pulse 69 04/10/23 08:00 Resp 16 04/10/23 08:00 BP 116/75 04/10/23 07:30 Pulse Ox 95 04/10/23 07:30 O2 Del Method Nasal Cannula 04/10/23 07:30 O2 Flow Rate 3 04/10/23 07:30 Progress Note: Objective Labs Labs: Short CBC 04/10/23 Range/Units 04:37 WBC 6.5 (4.0-11.0) 10^3/uL Hgb 11.3 L (14.0-18.0) g/dL Hct 37.2 L (42.0-54.0) % Plt Count 225 (150-450) 10^3/uL BMP 04/10/23 04:37 Sodium 150 H Potassium 4.3 Chloride 111 H Carbon Dioxide 32.6 H BUN 14.0 Creatinine 1.33 H Glucose 97 Calcium 8.9 Liver Function 04/10/23 Range/Units 04:37 Total Bilirubin 0.2 (0.2-1.0) mg/dL AST 20 (15-37) U/L ALT 17 (16-63) U/L Alkaline Phosphatase 54 (46-116) U/L Albumin 2.2 L (3.4-5.0) g/dL Progress Note: A&P Assessment and Plan (1) RSV (acute bronchiolitis due to respiratory syncytial virus): Assessment and Plan: supportive therapy with oxygen,inhaled budesonide, albuterol and scheduled DuoNeb's. O PEP therapy (2) Acute bronchitis due to Rhinovirus: Assessment and Plan: see #1, supportive care (3) Right lower lobe pneumonia: Assessment and Plan: could be secondary to respiratory syncytial virus or rhinovirus but will also treat for secondary bacterial pneumonia continue Zosyn since sepsis resolved with this. chest x-ray consistent with right middle and right lower lobe pneumonia (4) Bipolar 1 disorder: Assessment and Plan: continue home medications (5) Mental and behavioral problem: Assessment and Plan: continue home medications (6) Hypothyroid: Assessment and Plan: continue home medications (7) Sleep apnea: Assessment and Plan: continue CPAP (8) Pulmonary hypertension: Assessment and Plan: continue lasix daily, cpap Plan patient is a full code Will continue Lovenox for deep vein thrombosis prophylaxis hopeful discharge tomorrow if able to wean off oxygen
[2023-04-10] MEDS: IPRATROPIUM/ALBUTEROL SULFATE 3 ML AMPUL.NEB IH ×3 (10:16→20:11)
[2023-04-10] MEDS: BUDESONIDE 0.5 MG/2 ML AMPULE NEB IH ×2 (10:16→20:11)
--- NOTE | 2023-04-10 10:31 | RESP.RT ---
decreased to 1 LPM
--- NOTE | 2023-04-10 11:47 | CM.NOTE ---
Rounds made with Dr. Wiseman, pt continues need for oxygen. RN notified and will attempt to wean oxygen today, possible discharge back to [facility] tomorrow. If needed pt can discharge on oxygen.
[2023-04-10] MEDS: FAMOTIDINE 20 MG TABLET PO (12:14)
[2023-04-10] MEDS: POLYETHYLENE GLYCOL 3350 17 GM POWDER PACKET PO (14:09)
[2023-04-10] MEDS: DOCUSATE SODIUM 100 MG CAPSULE PO ×2 (14:09→21:06)
[2023-04-10] MEDS: LEVOTHYROXINE 150 MCG 1 EACH PO (15:26)
[2023-04-10] MEDS: CHLORPROMAZINE 25 MG 25 EACH PO (15:26)
[2023-04-10] MEDS: CHLORPROMAZINE 50 MG 150 EACH PO (21:02)
[2023-04-10] MEDS: DIVALPROEX SODIUM 500 MG TABLET.DR 1500 MG PO (21:03)
[2023-04-10] MEDS: LITHIUM 300 MG 1 EACH PO (21:05)
[2023-04-10] MEDS: MONTELUKAST SODIUM 10 MG TABLET PO (21:06)
[2023-04-10] MEDS: SENNOSIDES 8.6 MG TABLET 17.2 MG PO (21:06)
[2023-04-10] MEDS: LORAZEPAM 1 MG TABLET 2 MG PO (21:07)
[2023-04-11] VITALS: PULSE 87
[2023-04-11 02:34] VITALS: PULSE 81
[2023-04-11 04:05] VITALS: PULSE 72; RESP 18; O2SAT 94
[2023-04-11] MEDS: IPRATROPIUM/ALBUTEROL SULFATE 3 ML AMPUL.NEB IH (04:05)
[2023-04-11] MEDS: PIPERACILLIN SODIUM/TAZOBACTAM 3.375 GM in 0.9 % SODIUM CHLORIDE 50 ML IV (05:11)
[2023-04-11 05:25] VITALS: BP 116/68; PULSE 88; RESP 18; TEMP 36.2; O2SAT 92
[2023-04-11 07:54] VITALS: BP 124/57; PULSE 73; RESP 18; TEMP 36.4; O2SAT 93
--- NOTE | 2023-04-11 07:58 | PC.NURSE ---
patient removed tele monitoring throughout the night. patienty refused to have tele placed back on.
--- NOTE | 2023-04-11 08:11 | P.DS_ITS ---
DS: Providers Provider Date of admission: 04/08/23 18:33 Primary care physician: LIYA HERNANDEZ DO Admitting clinician: Padmini Wiseman Consults: 04/08/23 17:40 Occupational Therapy Eval and Treat Routine Reason for consultation: weakness Has provider been notified: No Physical Therapy Eval and Treat Routine Reason for consultation: weakness Has provider been notified: No Discharging clinician: Padmini Wiseman DS: Diagnosis Discharge Diagnosis (1) RSV (acute bronchiolitis due to respiratory syncytial virus): (2) Acute bronchitis due to Rhinovirus: (3) Right lower lobe pneumonia: (4) Bipolar 1 disorder: (5) Mental and behavioral problem: (6) Hypothyroid: (7) Sleep apnea: (8) Pulmonary hypertension: DS: Summary Hospital Course Hospital Course: patient is a 32-year-old male with past medical history of MRDD, bipolar disorder, seasonal ALLERGIES, hypothyroidism who presented to the Emergency Room after having some shortness of breath. Diagnosed with RSV bronchitis and secondary bacterial pneumonia requiring oxygen therapy. Was Septic at initial prevention which resolved with fluids and zosyn. Patient status improved and was able to wean off oxygen. He will be discharged home today on Augmentin 500/125mg BID x 7 days with no changes in home medications. He resides at [facility]. He is to return with any worsening symptoms. At the time of discharge he is Afebrile, vital signs stable, labs stable yesterday. Patient back to baseline Status at Discharge Functional status at discharge: independent ambulation Overall status at discharge: patient is back to baseline Time Spent with Patient Time attestation: Total time spent providing and/or coordinating discharge services: Time spent: greater than 30 minutes Exam Narrative Exam Narrative: General: Patient is alert, and oriented to person Head: atraumatic Heart: Normal rate and rhythm, no murmurs/rubs/gallops Lungs: audible wheezes, no crackles and diminished breath sounds all lung batista Neuro: CN II-X grossly intact Constitutional Vital Signs, click to edit/add: Last Vital Signs Temp 97.6 F 04/11/23 07:54 Pulse 73 04/11/23 07:54 Resp 18 04/11/23 07:54 BP 124/57 04/11/23 07:54 Pulse Ox 93 L 04/11/23 07:54 O2 Del Method Room Air 04/11/23 07:54 O2 Flow Rate 1 04/10/23 13:27 DS: Data Data Completed and Pending Labs on day of discharge: Preliminary micro results at discharge 04/08/23 14:59 - Preliminary Blood NO GROWTH AT 36-48 HOURS. FINAL TO FOLLOW. 04/08/23 14:28 Blood Culture Result 1 - Preliminary Blood NO GROWTH AT 36-48 HOURS. FINAL TO FOLLOW. 04/08/23 21:03 MRSA Culture - Preliminary Nasal - Nasal Discharge Plan Discharge Disposition: Home, Self-Care Discharge Medications: New amoxicillin-pot clavulanate [Augmentin] 500-125 mg tablet 1 tab PO BID 7 Days Qty: 14 0RF Continued divalproex 500 mg tablet,delayed release (DR/EC) 500 mg PO 1999 Rx Instructions: Take 3 tablets at bedtime chlorpromazine 10 mg tablet 10 mg PO 0800 Rx Instructions: Take 2 tables by mouth in morning carbamazepine 200 mg tablet 200 mg PO 08,1999 Rx Instructions: Take 2 tablets by mouth twice daily clonidine HCl 0.2 mg tablet 0.2 mg PO .0800,1199, 1999 Rx Instructions: Take one tablet by mouth 3 times daily chlorpromazine 25 mg tablet 25 mg PO 1600 Rx Instructions: Take one tablet by mouth daily at 4 pm benzoyl peroxide 5 % cleanser 1 applic TOPICAL Q12H chlorpromazine 50 mg tablet 50 mg PO 1999 Rx Instructions: Take 3 tablets by mouth at bedtime vitamin B complex Capsule 1 cap PO .qd clindamycin phosphate 1 % lotion 1 applic TOPICAL .qd Rx Instructions: to the face and back sennosides [senna] 8.6 mg tablet 8.6 mg PO BID Rx Instructions: Take 2 tablets by mouth 2 times daily ketoconazole 2 % shampoo 1 applic TOPICAL .qd Rx Instructions: wash face and back daily with acne flares albuterol sulfate 2.5 mg /3 mL (0.083 %) solution for nebulization 2.5 mg continuous nebulization Q6H PRN (Reason: shortness of breath or wheezing) divalproex 250 mg tablet,delayed release (DR/EC) 500 mg PO 0800 bacitracin zinc 500 unit/gram ointment 1 applic TOPICAL TID famotidine 20 mg tablet 20 mg PO 1200 lorazepam 2 mg tablet 2 mg PO BEDTIME Rx Instructions: Take 1 tablet at bedtime lithium carbonate 300 mg capsule 300 mg PO BEDTIME Rx Instructions: Take one capsule by mouth at bedtime levothyroxine 150 mcg tablet 150 mcg PO DAILY montelukast 10 mg tablet 10 mg PO .once daily Rx Instructions: Take one tablet by mouth daily furosemide 20 mg tablet 20 mg PO BID Rx Instructions: 0800, 1600 gabapentin 100 mg capsule 100 mg PO TID Rx Instructions: Take one tablet by mouth 3 times daily risperidone 1 mg tablet 1 mg PO TID Rx Instructions: Take one tablet by mouth 3 times daily vilazodone 20 mg tablet 20 mg PO .morning Rx Instructions: Take 1 and half tablets by mouth morning acetaminophen 325 mg capsule 325 mg PO Q4H dihydroxyaluminum sodium carb 334 mg tablet,chewable 334 mg PO BID PRN (Reason: upset stomach) bisacodyl [Laxative (bisacodyl)] 10 mg suppository 10 mg OR DAILY ketoconazole 2 % cream 1 applic topical DAILY loperamide 2 mg capsule 2 mg PO QID loratadine 10 mg tablet 10 mg PO DAILY ondansetron 4 mg tablet,disintegrating 4 mg PO Q6H sulfacetamide sodium 10 % cleanser, gel 1 applic topical DAILY sulfacetamide sodium 10 % cleanser, gel 1 applic topical DAILY tacrolimus 0.1 % ointment 1 applic topical BID Changed benzonatate 100 mg capsule 100 mg PO TID PRN (Reason: Cough) Qty: 0 0RF guaifenesin [Chest Congestion Relief] 400 mg tablet 400 mg PO BID PRN (Reason: Congestion) Qty: 0 0RF Rx Instructions: Take 1 tablet by mouth twice a day Discontinued azithromycin 250 mg tablet 250 mg PO .Daily at 1999 Rx Instructions: Take 2 tablets by mouth on day 1 and then take 1 tablet on sawyer 2 through 5 Activity: increase activity as tolerated Diet: advance to your usual diet Patient Instructions: Amoxicillin/Clavulanate Potassium (By mouth) (Augmentin, Augmentin..., RSV (Respiratory Syncytial Virus) (DC) Forms: Portal Instructions Follow Up Appointments: dr hernandez will see patient at [facility] Discharge Date/Time: 04/11/23 10:17 Discharge location: [facility], Rx for Augmentin printed and signed to take with him
[2023-04-11] MEDS: CARBAMAZEPINE 200 MG TABLET 400 MG PO (09:54)
[2023-04-11] MEDS: CLONIDINE HCL 0.2 MG TABLET PO (09:55)
[2023-04-11] MEDS: CHLORPROMAZINE 10 MG 20 EACH PO (09:55)
[2023-04-11] MEDS: DIVALPROEX SODIUM 250 MG TABLET.DR PO (09:56)
[2023-04-11] MEDS: DIVALPROEX SODIUM 500 MG TABLET.DR PO (09:56)
[2023-04-11] MEDS: GABAPENTIN 100 MG CAPSULE PO (09:57)
[2023-04-11] MEDS: FUROSEMIDE 20 MG TABLET PO (09:57)
[2023-04-11] MEDS: risperiDONE 1 MG TABLET PO (09:58)
[2023-04-11] MEDS: VILAZODONE 20 MG 30 EACH PO (09:58)
[2023-04-11] MEDS: VITAMIN B COMPLEX 1 EACH PO (09:58)
== END 2023-04-11 10:17 | disposition home or self-care (01) | DRG 720 ==
LOC: ER 18:49 → MS 18:59
PROVIDERS: Registered Nurse; Admitting Provider Family Medicine; Emergency Provider Emergency Medicine Emergency Medical Services; PCP Family Medicine; Visit Provider Family Medicine
DX: A41.9 Sepsis, unspecified organism (principal); J21.0 Acute bronchiolitis due to respiratory syncytial virus; J20.6 Acute bronchitis due to rhinovirus; J15.9 Unspecified bacterial pneumonia; F31.9 Bipolar disorder, unspecified; G47.33 Obstructive sleep apnea (adult) (pediatric); K59.09 Other constipation; E03.9 Hypothyroidism, unspecified; I27.20 Pulmonary hypertension, unspecified; F79 Unspecified intellectual disabilities; J30.2 Other seasonal allergic rhinitis; F42.9 Obsessive-compulsive disorder, unspecified; F69 Unspecified disorder of adult personality and behavior; Z79.899 Other long term (current) drug therapy; Z88.6 Allergy status to analgesic agent
CPT/HCPCS: 0202U; 36415; 71045; 80053; 82800; 83605; 83880; 84145; 84484; 85007; 85025; 85027; 87040; 87081; 87804; 87811; 93005; 94640; 94667; 94668; 94761; 96365; 96366; 96367; 97161; 97165; 99285; J0696; J2543

== ENCOUNTER 2023-10-21 11:11 | Inpatient (IN) | payer MEDICAID, SELFPAY ==
[2023-10-21] VITALS (20 sets, daily range): BP systolic 99–142; BP diastolic 51–80; PULSE 61–113; TEMP 36.8–38.4; O2SAT 86–97; BMI 45.1; BMI 42.0
--- NOTE | 2023-10-21 11:32 | XR_ITS ---
The [address] [address] Patient Name: FAHAD BERNABE MRN: [id number] date: 1990 Sex: M Assigned Patient Location: ER Current Patient Location: [place] Accession/Order Number: [id number] Exam Date: 10/21/2023 11:38 Report Date: 10/21/2023 15:07 At the request of: DEAN GONZALEZ Procedure: XR chest 1V FRONTAL CHEST; 10/21/2023 11:38 AM EDT Clinical History:sob covid Comparison: 04/09/2023 . AP portable upright film. Again, greater than average habitus. No apparent change osseous structures. No change cardiac and mediastinal silhouettes or hakeem. Increased markings and airspace disease left mid through lower hemithorax. No left pleural effusion. Mild increased markings and airspace disease right base and right midlung. No right pleural effusion. The vasculature is not distended. XR/XR chest 1V IMPRESSION: 1. Areas of increased markings and airspace disease, left greater than right. Bronchopneumonia is the leading consideration. Electronically authenticated by: ROXANNA BATISTA Date: 10/21/2023 15:07
--- NOTE | 2023-10-21 11:32 | ECG_ITS ---
The [facility] Test Date: 2023-10-21 Pat Name: FAHAD BERNABE Department: Room: - Gender: Male Doctor Of Naprapathy: : 1990 Requested By: LIYA HERNANDEZ Order Number: [id number] Reading MD: CATRACHITA PETERSEN Measurements Intervals [place] Rate: 103 P: -35 MS: 196 QRS: 100 QRSD: 118 T: 44 QT: 362 QTc: 421 Interpretive Statements 1220 Rapid atrial rhythm 2440 Incomplete right bundle branch block [address] depression 5120 Possible right ventricular hypertrophy 7300 Indeterminate axis 9150 abnormal ECG Electronically Signed On 10-22-2023 7:31:20 EDT by CATRACHITA PETERSEN
[2023-10-21] MEDS: ACETAMINOPHEN 160 MG/5 ML ORAL.SUSP 320 MG PO (11:59)
[2023-10-21] MEDS: METHYLPREDNISOLONE SOD SUCC PF 125 MG/2 ML VIAL IVP ×2 (11:59→15:05)
--- OUTSIDE RECORDS SUMMARY | 2023-10-21 12:20 | XMS_ITS | CCD ---
Author Organization [facility] Care Team Providers Care Computer Systems Engineer Name Role Phone Unavailable Unavailable Unavailable Kemp, Iftikhar A Primary Care Provider Unavaila ble Kemp, Iftikhar A Primary Care Provider Iftikhar Kemp DO Primary Care Provider FRANCK CARBALLO Attending Unavailab le KEMP, IFTIKHAR A Primary Care Unavailable KEMP, IFTIKHAR A Primary Care Unavailable DEENAZULAY Attending U navailable KEMP, IFTIKHAR Otto Attending Unavailable KEMPIFTIKHAR A Referring Unavailable KEMP, IFTIKHAR A Primary Care Unavailable DEENAZULAY Referring U navailable KEMP, IFTIKHAR A Primary Care Unavailable LORENZO STEIN Admitting Unavailab DOMO Silva Attending Unavailable LETTY DAVENPORT Consulting Unavail able FRANCK CARBALLO Admitting Unavailab le CARBALLOFRANCK DONATO Attending Unavailab le KEMP, IFTIKHAR A Primary Care Unavailable Unavailable Primary Care Provider Unavailabl e Thiago Chandler Unavailable DO Iftikhar Kemp A Primary Care Provider MD Thiago Chandler Attending Provider Unavailable Primary Care Provider Unavailabl e PROVIDER, UNKNOWN Admitting Unavailable PROVIDER, UNKNOWN Attending Unavailable PROVIDER, UNKNOWN Admitting Unavailable PROVIDER, UNKNOWN Attending Unavailable Kemp, DO Iftikhar A Primary Care Provider Martha Richmond Unavailable KempDO Buitrago A Primary Care Provider MD Thiago Chandler Attending Provider [phone] KempDO Iftikhar patrick A Primary Care Provider MD Thiago Chandler Attending [...] Unavailable ZIEBER, DR ZULAY Cohen Consulting Unavailable IFTIKHAR KEMP Primary Care Physician DO Iftikhar Kemp Primary Care Provider MD Thiago Chandler Attending Provider Iftikhar Kemp DO Primary Care Provider IFTIKHAR KEMP Primary Care Unavailable LIBAN OTERO Attending Unavailable KEMP, IFTIKHAR Admitting Unavailable KEMP, IFTIKHAR Attending Unavailable KEMP, IFTIKHAR Referring Unavailable KEMP, IFTIKHAR Admitting Unavailable KEMP, IFTIKHAR Attending Unavailable KEMP, IFTIKHAR Admitting Unavailable KEMP, IFTIKHAR Attending Unavailable MD Fahad Echavarria Attending Provider [phone] DO Iftikhra Kemp Primary Care Provider Iftikhar Kemp Primary Care Unavailable OleFahad sandhu Attending Unavailable Olexa, Fahad Admitting Unavailable Kemp, Iftikhar A Primary Care Unavailable Thiago Chandler Attending Unavailable Thiago Chandler Admitting Unavailable Allergies Allergy Classification Reported Allergen(s) Allergy Type Date of Onset Reaction(s) Facility NSAIDs (1 source) Naproxen Drug Allergy 8 [facility] (20 sources) Naproxen; Translations: [NAPROXEN] Drug Allergy 8 [facility] Work Phone: (8 sources) Seasonal allergy Propensity to adverse reactions 3 Unknown, Unknown Reaction [facility] (1 source) Naproxen Drug Allergy [facility] (4 sources) Non-steroidal anti-inflammato ry agent; Translations: [NSAIDs] Drug allergy [facility] (4 sources) Salicylic Acid; Translations: [salicylates] Drug Allergy [facility] (1 source) Naproxen Drug Allergy 0 [facility] Repository Medications Current Medications Medication Drug Class(es) Dates Sig (Normalized) Sig (Original) albuterol 0.83 mg/ml inhalation solution (18 sources) beta2-Adrenergic Agonist Start: 12-31-2018 take 1 [...] mg / clavulanate 125 mg oral tablet (11 sources) Penicillin-class Antibacterial Start: 02-26-2019 End: 03-05-2019 [...] B Complex Vitamins (B COMPLEX 100 PO) (2 sources) B Complex Vitami ns (B COMPLEX 100 [...] 0 Suspended bacitracin 0.5 unt/mg ophthalmic ointment (9 sources) Start: 12-31-2018 take 1 dose into the eye(s) three times daily Bacitracin Active 1 DOSE OPHTHALMIC Three times daily December 31, 2018 1:00am Topical benzonatate 100 mg oral capsule (16 sources) Non-narcotic Antitussive Start: 01-08-2018 take 100 mg by mouth three times daily Benzonatate Active 100 MG PO Three times daily December 31, 2018 1:00am benzoyl peroxide 50 mg/ml medicated liquid soap (20 sources) Start: 12-31-2018 apply 1 dose topically once daily Benzoyl Peroxide Active 1 DOSE TOPICAL DAILY@1999December 31, 2018 1:00am WASH FACE, CHEST, AND BACK DAILY @1999 Benzoyl Peroxide (PANOXYL) 10 % Bar Apply topically. Active Benzoyl Peroxide 5 % as directed Externally Once a day Active benzoyl peroxide 5 % gel Apply topically daily . 0 Active budesonide 0.25 mg/ml inhalant solution (1 source) Corticosteroid Start: 01-06-2018 budesonide (PULMICORT) nebulizer suspension 0.5 mg calcium carbonate 1000 mg / magnesium hydroxide 200 mg chewable tablet (9 sources) Start: 12-31-2018 Calcium Carbonate-Mag Hydroxid (Antacid (Calcium Carb-Mag Hyd)) 1,000-200 mg Tablet,Chewable Active 2 TAB PO Q4H December 31, 2018 1:00am chlorproMAZINE hydrochloride 50 mg oral tablet (20 sources) Phenothiazine Start: 02-23-2019 End: 03-01-2019 take 25 mg by mouth twice daily 25 mg, Oral, 2 times daily, First dose on 02/23/19 at 2230 May cause QT interval prolongation. Start: 02-23-2019 End: 03-01-2019 take 150 mg by mouth once daily 150 mg, Oral, Nightly, First dose on 02/23/19 at 2230 May cause QT interval prolongation. Start: 12-31-2018 End: 04-25-2023 take 150 mg by mouth once daily at bedtime Chlorpromazine Active 50 MG PO Daily April 25, 2023 2:09pm At 4PM and 150mg at HS take 5 tablets by mo uth three times daily chlorproMAZINE 10 MG Tab Take 50 mg by mouth 3 times daily. Active take 1 tablet by moira th every twelve hours chlorproMAZINE HCl 10 MG 1 tablet Orally Twice a day Active take 3 tablets by mo uth once daily chlorproMAZINE (THORAZINE) 50 MG tablet Take 150 mg by mouth nightly . 0 Active clindamycin 10 mg/ml medicated pad (18 sources) Lincosamide Antibacterial Start: 12-31-2018 apply 1 dose topically twice daily Clindamycin Phos-Skin Clnsr 19 Active 1 DOSE TOPICAL Twice daily December 31, 2018 1:00am Start: 11-05-2010 clindamycin Re fills(s) 0 Start Date: 11/05/10 Status: Ordered clindamycin 1 % Solution Apply 1 Application topically 2 times daily. use thin film on affected area Active Clindamycin HCl Active cloNIDine hydrochloride 0.2 mg oral tablet (20 sources) Central alpha-2 Adrenergic Agonist Start: 12-31-2018 End: 03-01-2019 take 0.2 mg by mouth three times daily Clonidine Hcl Active 0.2 MG PO Three times daily December 31, 2018 1:00am Start: 01-06-2018 take 0.2 mg by mouth three times daily 0.2 mg, Oral, 3 TIMES DAILY, First dose on 01/06/18 at 2100, Until Discontinued Start: 11-05-2010 clonidine patc h(es), Refills(s) 0 Start Date: 11/05/10 Status: Ordered take 1 tablet by moira th once daily cloNIDine HCl 0.2 MG 1 tablet Orally Once a day Active Cpap (Continuous Positive rway Pressure) (4 sources) Start: 04-25-2023 Cpap (Continuo us Positive Airway Pressure) Active 0 .Route April 25, 2023 12:00am [employer] Start: 04-25-2023 Cpap (Continuo us Positive Airway Pressure) Active 0 .ROUTE April 25, 2023 12:00am [employer] CPAP Machine (4 sources) CPAP Machine aut o CPAP 8- Active CPAP Machine aut o CPAP 8- with 3 liters of O2 Active divalproex (DEPAKOTE ER) tablet ER 750 mg (1 source) Start: 01-07-2018 divalproex (DEPAKOTE ER) tablet ER 750 mg famotidine 20 mg oral tablet (20 sources) Histamine-2 Receptor Antagonist Start: 04-25-2023 take 1 tablet by mouth once daily at bedtime Famotidine Active 1 TAB PO Daily at bedtime April 25, 2023 12:00am [employer] tablet at bedtime as needed Orally Once a day; Note: Source Status: Taking; Provider: Ramesh Das ( ) Start: 02-24-2019 End: 03-01-2019 take 20 mg by mouth once daily 20 mg, Oral, Daily, Fir st dose on 02/24/19 at 0900 Start: 12-31-2018 End: 02-22-2019 take 20 mg by mouth once daily Famotidine Discontinued 20 MG PO DAILY@1200 December 31, 2018 1:00am February 22, 2019 10:13am Start: 01-06-2018 take 20 mg by mouth twice daily 20 mg, Oral, 2 TIMES DAILY, First dose on 01/06/18 at 1700, Until Discontinued formoterol fumarate 0.01 mg/ml inhalant solution (1 source) beta2-Adrenergic Agonist Start: 01-07-2018 formoterol (PERFOROMIST) inhalation solution 20 mcg furosemide 20 mg oral tablet (16 sources) Loop Diuretic Start: 04-25-2023 take 1 tablet by mouth twice daily Furosemide Active 1 TAB PO Twice daily April 25, 2023 12:00am [employer] tablet Orally Twice a day; Note: Source Status: Takingper cardiolology; Provider: Yi Thomas Start: 03-01-2019 take 1 tablet by moira th twice daily furosemide (LASIX) 20 MG tablet Take 1 (one) tablet (20 mg total) by mouth 2 (two) times a day . 60 tablet 1 03/01/2019 Active Start: 02-24-2019 End: 03-01-2019 furosemide (LASIX) injection 20 mg Start: 02-23-2019 40 mg, Intrave nous, Every 12 hours scheduled, First dose on 02/23/19 at 2215, For 1 dose gabapentin 100 mg oral capsule (20 sources) Anti-epileptic Agent Start: 04-25-2023 take 1 tablet by mouth once daily Gabapentin Active 100 MG PO Daily April 25, 2023 12:00am [employer] tablet Orally Once a day; Note: Source Status: Taking; Provider: Ramesh Das ( ) Start: 01-06-2018 End: 03-01-2019 take 100 mg by mouth three times daily Gabapentin Discontinued 100 MG PO Three times daily December 31, 2018 1:00am February 22, 2019 10:10am take 1 capsule by mo [facility] every twenty-four hours Gabapentin 100 MG 1 tablet Orally Once a day Active Glendy-Tussin 100 MG/5ML (3 sources) take 10 mL by mouth every four hours as needed Glendy-Tussin 100 MG/5ML 10 ml as needed Orally every 4 hrs Active guaiFENesin 20 mg/ml oral solution (20 sources) Start: 04-25-2023 take 200 mg by mouth every four hours Guaifenesin (Glendy-Tussin) 100 mg/5 mL liquid Active 200 MG PO Every 4 hours April 25, 2023 12:00am Start: 12-31-2018 End: 03-01-2019 take 1 tablet [...] hrs Active take 1 tablet by moira every twelve hours Mucinex 600 MG 1 [...] 0 03/01/2019 Discontinued (Stop Taking at Discharge) levothyroxine sodium 0.15 mg oral tablet (20 sources) l-Thyroxine Start: 04-25-2023 take 1 tablet by mouth once daily in the morning Levothyroxine Active 150 MCG PO Daily April 25, 2023 12:00am [employer] tablet in the morning on an empty stomach Orally Once a day; Note: Source Status: Taking; Provider: Ramesh Das ( ) Start: 02-24-2019 End: 03-01-2019 take 150 ug [...] 01-06-2018 take 125 ug by mouth once arti y 125 mcg, Oral, DAILY, First dose on 01/06/18 at 1830, Until Discontinued Start: 11-05-2010 Synthroid Arti y, Refills(s) 0 Start Date: 11/05/10 Status: Ordered Start: 11-05-2010 levothyroxine Daily, Refills(s) 0 Start Date: 11/05/10 Status: Ordered take 1 tablet by moira once daily in the morning Levothyroxine Sodium 150 MCG 1 tablet in the morning on an empty stomach Orally Once a day Active linaclotide 0.072 mg oral capsule (10 sources) Guanylate Cyclase-C Agonist Start: 03-16-2021 take [...] 31, 2018 1:00am February 22, 2019 10:11am lithium carbonate 300 mg oral capsule (20 sources) Start: 04-25-2023 take 1 capsule by mouth once daily [place] Carbonate Active 300 MG PO Daily April 25, 2023 12:00am [employer] capsule Orally Once a day; Note: Source Status: Taking; Provider: Ramesh Das ( ) Start: 02-23-2019 End: 03-01-2019 take 300 mg by mouth once daily 300 mg, Oral, Nightly, First dose on 02/23/19 at 2230 Start: 12-31-2018 End: 02-22-2019 take 300 mg by mouth once daily at bedtime [place] Carbonate Discontinued 300 MG PO Daily at bedtime December 31, 2018 1:00am February 22, 2019 10:11am Start: 01-06-2018 take 300 mg by mouth three times daily 300 mg, Oral, 3 TIMES DAILY, First dose on 01/06/18 at 1615, Until Discontinued Start: 11-05-2010 lithium carbon ate Oral, TID, Refills(s) 0 Start Date: 11/05/10 Status: Ordered take 2 capsules by m outh once daily lithium 150 MG capsule Take 300 mg by mouth nightly . 0 Active LORazepam 2 mg oral tablet (20 sources) Benzodiazepine Start: 04-25-2023 take 1 tablet by mouth once daily at bedtime Lorazepam Active 2 MG PO Daily at bedtime April 25, 2023 12:00am [employer] tablet at bedtime as needed Orally Once a day; Note: Source Status: Taking; Provider: Ramesh Das ( ) Start: 02-23-2019 End: 03-01-2019 take 2 mg by mouth once daily 2 mg, Oral, Nightly, Fir st dose on 02/23/19 at 2215 Start: 12-31-2018 [...] Active take 2 tablets by mo uth once daily LORazepam (ATIVAN) 1 MG tablet Take 2 mg by mouth nightly . 0 Active lorazepam 1 mg sublingual tablet (3 sources) Start: 11-05-2010 lorazepam 1 mg sublingual tablet Refills(s) 0 Start Date: 11/05/10 Status: Ordered Minocycline (3 sources) Tetracycline-class Drug Start: 11-05-2010 minocycline Oral, Refills(s) 0 Start Date: 11/05/10 Status: Ordered montelukast 10 mg oral tablet (20 sources) Leukotriene Receptor Antagonist Start: 04-25-2023 take 1 tablet by mouth once daily Montelukast Active 1 TAB PO Daily April 25, 2023 12:00am [employer] tablet Orally Once a day; Note: Source Status: Taking; Provider: Ramesh Das ( ) Start: 02-23-2019 End: 03-01-2019 take 10 mg by mouth once daily 10 mg, Oral, Nightly, F irst dose on 02/23/19 at 2230 Start: 12-31-2018 End: 02-22-2019 take 10 mg by mouth once daily Montelukast Discontinue d 10 MG PO DAILY@1999December 31, 2018 1:00am February 22, 2019 10:11am Zyprexa (3 sources) Atypical Antipsychotic Start: 11-05-2010 Zyprexa Refills(s) 0 Start Date: 11/05/10 Status: Ordered Patanol (3 sources) Histamine-1 Receptor Inhibitor Start: 11-05-2010 take 1 mL into the eye(s) twice daily Patanol Eye-Both, BID, mL, Refill(s) 0 Start Date: 11/05/10 Status: Ordered Oxygen (4 sources) Start: 04-25-2023 Oxygen Active 0 .Route April 25, 2023 12:00am 3 liters [facility] [employer] Start: 04-25-2023 Oxygen Active 0 .ROUTE April 25, 2023 12:00am 3 liters [facility] [employer] Oxygen 3 liters (4 sources) Oxygen 3 [...] ml IVPB predniSONE 10 mg oral tablet (2 sources) Start: 01-08-2018 predniSONE 10 MG Tab tablet 4 tabs po daily x 3 days, 3 tabs po daily x 3 days, 2 tabs po daily x 3 days, 1 tab po daily x 3 days, then discontinue 30 tablet 01/08/2018 Active risperiDONE 1 mg oral tablet (20 sources) Atypical Antipsychotic Start: 12-31-2018 End: 03-01-2019 [...] day Active Sennosides (Senna) 8.6 mg Capsule (9 sources) Start: 12-31-2018 take 2 capsules by [...] 1:00am sulfacetamide sodium 98 mg/ml topical lotion (9 sources) Sulfonamide Antibacterial Start: 12-31-2018 apply 1 dose topically once daily at bedtime Sulfacetamide Sodium Active 1 DOSE TOPICAL Daily at bedtime December 31, 2018 1:00am 24 hr divalproex sodium 250 mg extended release oral tablet (20 sources) Mood Stabilizer, Anti-epileptic Agent Start: 04-25-2023 take 250 mg by mouth once daily Divalproex Active 250 MG PO Daily April 25, 2023 2:03pm Start: 02-24-2019 End: 03-01-2019 divalproex (DEPAKOTE ER) 24 hr tablet 1,000 mg Start: 12-31-2018 End: 04-25-2023 take 250 mg by mouth twice daily Divalproex Discontinued 250 MG PO BID@0800,1200 December 31, 2018 1:00am April 25, 2023 2:07pm Start: 12-31-2018 End: 02-22-2019 Divalproex Discontinued 500 MG PO BID@0800,1200 December 31, 2018 1:00am February 22, 2019 10:07am 500 mg at 8AM and 1200, 1000 mg at 8PM Start: 12-31-2018 End: 02-22-2019 take 1000 mg by mouth once daily Divalproex Discontinued 1000 MG PO DAILY@2000 December 31, 2018 1:00am February 22, 2019 10:07am Start: 01-06-2018 End: 01-07-2018 divalproex (DEPAKOTE) tablet EC/DR 500 mg Start: 11-05-2010 take 500 mg by mouth once arti y divalproex sodium extended release 500 mg, Oral, Daily, Refills(s) 0 Start Date: 11/05/10 Status: Ordered take 4 tablets by mo [facility] at bedtime divalproex [address] tablet EC/DR Take 1,000 mg by mouth at bedtime. Active take 1 tablet by moira th every twenty-four hours Divalproex Sodium 125 MG 1 tablet Orally Once a day Active take 2 tablets by mo uth three times daily divalproex (DEPAKOTE) 500 MG delayed release (DR) tablet Take 500 mg by mouth 3 (three) times a day 2 tablets at 8pm . 0 Active End: 01-08-2018 take 1 tablet by mouth twice daily divalproex [address] Take 500 mg by mouth 2 times daily. 01/08/2018 Discontinued Vitamin B Complex (4 sources) Vitamin B Comple x - as directed Orally Active Vitamin B Complex (B-Complex) Tablet (9 sources) Start: 12-31-2018 take 1 tablet by [...] Sig (Original) acetaminophen 325 mg oral tablet (16 sources) Start: 02-23-2019 End: 03-01-2019 take 1 [...] 3 mL azithromycin 250 mg oral tablet (9 sources) Macrolide Antimicrobial Start: 12-31-2018 End: 01-02-2019 [...] 1 Dose bisacodyl 10 mg rectal suppository (10 sources) Stimulant Laxative Start: 02-26-2019 End: 03-01-2019 bisacodyL (DULCOLAX) suppository 10 mg Start: 12-31-2018 End: 02-22-2019 Biscolax Discontinued 10 MG TX Daily December 31, 2018 4:21pm February 22, 2019 10:10am Start: 12-31-2018 End: 02-22-2019 Biscolax Discontinued 10 MG TX Daily December 31, 2018 12:00am February 22, 2019 9:10am Start: 12-31-2018 End: 02-22-2019 Biscolax Discontinued 10 MG TX Daily December 31, 2018 1:00am February 22, 2019 10:10am 12 hr carBAMazepine 400 mg extended release oral tablet (20 sources) Mood Stabilizer Start: 04-25-2023 take 1 tablet by mouth twice daily Carbamazepine Active 200 MG PO Twice daily April 25, 2023 12:00am [employer] tablet Orally Twice a day; Note: Source Status: Taking; Provider: Ramesh Das ( ) Start: 02-23-2019 End: 03-01-2019 take 400 mg by mouth twice daily 400 mg, Oral, 2 times daily, First dose on 02/23/19 at 2230 Should be administered with meals DO NOT CRUSH OR CHEW. Start: 12-31-2018 End: 04-25-2023 take 400 mg by mouth twice daily Carbamazepine Discontinued 400 MG PO Twice daily April 25, 2023 2:00pm April 25, 2023 2:08pm Start: 01-06-2018 carBAMazepine (TEGRETOL) tablet 400 mg Start: 11-05-2010 Tegretol QID, Refills(s) 0 Start Date: 11/05/10 Status: Ordered take 400 mg by mouth twice daily CARBAMAZEPINE PO Take 400 mg by mouth 2 times daily. Active take 1 capsule by [facility] every twelve hours carBAMazepine ER 200 MG 1 tablet Orally Twice a day Active cefTRIAXone 1000 mg injection (1 source) Cephalosporin Antibacterial Start: 02-23-2019 End: 02-26-2019 take 1000 mg intravenous route every twenty-four hours 1,000 mg, Intravenous, at 100 mL/hr, Every 24 hours, First dose on 02/23/19 at 2300 Indication: CAP (ICU) docusate sodium 100 mg oral capsule (6 sources) Start: 01-06-2018 take 100 mg by mouth twice daily 100 mg, Oral, 2 TIMES DAILY, First dose on 01/06/18 at 1700, Until Discontinued Start: 11-05-2010 docusate sodiu m Refills(s) 0 Start Date: 11/05/10 Status: Ordered docusate sodium 50 mg / sennosides, half-way 8.6 mg oral tablet (1 source) Start: [...] at 2100, Until Discontinued, Indications: DVT/PE prophylaxis fluticasone propionate 0.5 mg/ml topical cream (9 sources) Corticosteroid Start: 12-31-2018 End: 02-22-2019 apply 1 dose topically twice daily Fluticasone Propionate Discontinued 1 DOSE TOPICAL Twice daily December 31, 2018 1:00am February 22, 2019 10:13am See Intructions glucagon (rdna) 1 mg injection (1 source) Antihypoglycemic Agent Start: 05-27-2023 End: 05-27-2023 2 mg, Intravenous, ONCE, 1 dose, On 05/27/23 at 1430 4 ml labetalol hydrochloride 5 mg/ml cartridge (1 source) beta-Adrenergic Earl Start: 01-06-2018 take 20 mg intravenous route every six hours as needed 20 mg, Intravenous, EVERY 6 HOURS NEEDED, Starting 01/06/18 at 1748, Until Discontinued, abp>160 loperamide hydrochloride 2 mg oral capsule (9 sources) Opioid Agonist Start: 12-31-2018 End: 02-22-2019 Loperamide Discontinued 4 MG PO As Directed December 31, 2018 1:00am February 22, 2019 10:11am See Intructions loratadine 10 mg oral tablet (9 sources) Start: 12-31-2018 End: 02-22-2019 take 10 mg by mouth once daily Loratadine Discontinued 10 MG PO Daily December 31, 2018 1:00am February 22, 2019 10:11am 50 ml magnesium sulfate 40 mg/ml injection (1 source) Start: 01-06-2018 2 g, Intravenous, DAILY NEEDED, Starting 01/06/18 at 1748, Until Discontinued, For Magnesium level < 2 with morning labs Infuse at a rate of 0.5 gm/hour. methylPREDNISolone 4 mg oral tablet (10 sources) Corticosteroid Start: 12-31-2018 End: 01-02-2019 Methylprednisolone Discontinued 0 .ROUTE .COMPLEX December 31, 2018 1:00am January 02, 2019 3:03pm DIRECTED Start: 01-06-2018 methylPREDNISo lone sodium succinate (SOLU-MEDROL) injection 40 mg 2 ml metoclopramide 5 mg/ml prefilled syringe (1 source) Dopamine-2 Receptor Antagonist Start: 05-27-2023 End: 05-27-2023 10 mg, Intravenous, ONCE, 1 dose, On 05/27/23 at 1430, If given via IV route: administer slowly over 2 minutes. nitroglycerin 0.4 mg sublingual tablet (1 source) Nitrate Vasodilator Start: 05-27-2023 End: 05-27-2023 0.4 mg, Sublingual, ONCE, 1 dose, On 05/27/23 at 1545, Maximum of three consecutive doses in 15 minutes. Do not chew, crush, or swallow sublingual tablet. Place under tongue and allow to dissolve. Alternately, may be placed in the buccal pouch. nystatin 100 unt/mg topical powder (9 sources) Polyene Antifungal Start: 12-31-2018 End: 02-22-2019 apply 1 dose topically twice daily Nystatin Discontinued 1 DOSE TOPICAL Twice daily December 31, 2018 1:00am February 22, 2019 10:11am 2 ml ondansetron 2 mg/ml injection (11 sources) Serotonin-3 Receptor Antagonist Start: 02-23-2019 End: [...] MIXTURE given to patient. polyethylene glycol 3350 62161 mg powder for oral solution (4 sources) Osmotic Laxative Start: 02-26-2019 End: 03-01-2019 polyethylene glycol (MIRALAX) powder 17 g Start: 11-05-2010 polyethylene g lycol 3350 17 gram, Oral, Daily, Refill(s) 0 Start Date: 11/05/10 Status: Ordered Sodium Chloride (4 sources) Start: 02-23-2019 End: 02-23-2019 sodium chloride (PF) (NS) fl ush 5 mL Start: 01-06-2018 End: 01-06-2018 Intravenous, at 100 mL/hr, C ONTINUOUS, Starting 01/06/18 at 1615, Until Discontinued Start: 01-06-2018 End: 01-07-2018 sodium chloride 0.9% IV solu tion 1,000 mL vilazodone (20 sources) Start: 02-24-2019 End: 03-01-2019 vilazodone (VIIBRYD) tablet 30 mg Start: 12-31-2018 take 1 tablet by moira th once daily in the morning Vilazodone (Viibryd) 20 mg Tablet Active 30 MG PO Every morning December 31, 2018 1:00am Vilazodone HCl ( VIIBRYD) 20 MG Tab Take 30 mg by mouth. Active take 0.5 tablet by m outh once daily vilazodone (VIIBRYD) 20 mg tablet Take 20 mg by mouth daily Take 1 and 1/2 tablets by mouth daily . 0 Active Problems Active Problems Problem Classification Problem Date Documented Da te Episodic/Chronic Abdominal pain (1 source) Indigestion; Translations: [Epigastric pain] Episodic Acute myocardial infarction (9 sources) Myocardial infarction; Translations: [Myocardial infarction type 2] 01-16-2019 Chronic Diseases of white blood cells (2 sources) Leukocytosis; Translations: [Elevated white blood cell count, unspecified] Onset: 8 01-07-2018 Chronic Epilepsy; convulsions (9 sources) Seizure disorder; Translations: [Epilepsy, unspecified, not intractable, without status epilepticus] 12-31-2018 Chronic Esophageal disorders (9 sources) Gastroesophageal reflux disease; Translations: [Gastro-esophageal reflux disease without esophagitis] 12-31-2018 Chronic Fracture of upper limb (7 sources) Fracture of distal end of radius; Translations: [Unspecified fracture of the lower end of unspecified radius, initial encounter for closed fracture] Onset: 4 09-07-2023 Episodic Intestinal obstruction without hernia (2 sources) Food bolus obstruction of intestine; Translations: [Other intestinal obstruction unspecified as to partial versus complete obstruction] Onset: 2 Episodic Other aftercare (4 sources) Other intermediate (current) drug therapy; Translations: [OTH ASSISTED CURRENT DRUG THERAPY] Onset: 3 Episodic Other congenital anomalies (15 sources) Anomaly of chromosome pair 21; 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, unspecified] Onset: 8 01-07-2018 Chronic Other gastrointestinal disorders (2 sources) Esophageal dysphagia; Translations: [Other dysphagia] Onset: 2 Episodic Other injuries and conditions due to external causes (1 source) Foreign body in esophagus; Translations: [Unspecified foreign body in esophagus causing other injury, initial encounter] 05-27-2023 Episodic Other injuries and conditions due to external causes (1 source) Unspecified foreign body in esophagus causing other injury, initial encounter; Translations: [Unspecified foreign body in esophagus causing other injury, initial encounter] Onset: 4 Episodic Other lower respiratory disease (9 sources) Lower respiratory tract infection; Translations: [Unspecified acute lower respiratory infection] 12-31-2018 Episodic Other lower respiratory disease (9 sources) Hypoxia; Translations: [Hypoxemia] 12-31-2018 Episodic Other [...] Chronic Other nutritional; endocrine; and metabolic disorders (9 sources) Obesity; Translations: [Obesity, unspecified] 12-31-2018 Chronic Other nutritional; endocrine; and metabolic disorders (1 source) Body mass index 40+ - severely obese; Translations: [Morbid (severe) obesity due to excess calories] Onset: 8 01-06-2018 Chronic Other nutritional; endocrine; and metabolic disorders (1 source) Developmental delay; Translations: [Unspecified lack of expected normal physiological development in childhood] 05-27-2023 Episodic Other nutritional; endocrine; and metabolic disorders (1 source) Unspecified lack of expected normal physiological development in childhood; Translations: [Unspecified lack of expected normal physiological development in childhood] Onset: 4 Episodic Pneumonia (except that caused by tuberculosis or sexually transmitted disease) (18 sources) Infective pneumonia; Translations: [Pneumonia] Onset: 8 01-07-2018 Episodic Pulmonary heart disease (13 sources) Pulmonary hypertension; Translations: [Pulmonary hypertension, unspecified] Onset: 2 Resolved: 2 Chronic Residual codes; unclassified (15 sources) Obstructive sleep apnea syndrome; Translations: [Obstructive sleep apnea (adult) (pediatric)] 01-16-2019 Chronic Residual codes; unclassified (4 sources) Obstructive sleep apnea (adult) (pediatric) Onset: 2 Resolved: 2 Chronic Residual codes; unclassified (1 source) Obstructive sleep apnea (adult)(pediatric); Translations: [Obstructive sleep apnea (adult) (pediatric)] Onset: 3 Chronic Thyroid disorders (13 sources) Hypothyroidism; Translations: [Hypothyroidism, unspecified] Onset: 8 01-07-2018 Chronic Unclassified (3 sources) PERSONAL HISTORY OF COVID-19; Translations: [PERSONAL HISTORY OF COVID-19] Onset: 2 Viral infection (1 source) COVID-19; Translations: [Pneumonia due to other virus not elsewhere classified] Onset: 2 05-03-2021 Episodic Past or Other Problems Problem Classification Problem Date Documented Da te Episodic/Chronic Epilepsy; convulsions (3 sources) Seizure; Translations: [Unspecified convulsions] Onset: 01-07-2018 01-07-2018 Episodic Open wounds of head; neck; and trunk [...] Results Test Name Value Interpretation Reference Range Facility XR wrist RT 2Von 09-21-2023 XR wrist RT 2V [facility] [address] [place] [address] XRay Report Signed Patient: Fahad Bernabe MR#: [id number] : 1990 Acct:[id number] Age/Sex: 33 / M ADM Date: 09/21/23 Loc: [facility] Room: Type: [facility] Attending Dr: Fahad Echavarria MD Copies to: Fahad Echavarria MD Ordering Provider: Fahad Echavarria MD Date of Service: 09/21/23 XR/XR wrist RT 2V: S52.509A - Unspecified fracture of the lower end of unspe... RIGHT WRIST - 2 views COMPARISON: 09/02/2023 CLINICAL DATA: Follow-up distal radius fracture. AP and lateral views were obtained in a fiberglass cast which somewhat obscures fine bone detail. There is redemonstration of a fracture at the distal radius, better seen dorsally. There is some associated sclerosis. There is no obvious change in alignment. No new fracture or dislocation is identified. XR/XR wrist RT 2V IMPRESSION: STABLE DISTAL RADIUS FRACTURE. Impression dictated by: Kristal Reyes M.D.09/21/2023 3:45 PM Dictation Location: [place] [address] Transcribed By: [facility] 09/21/23 1545 Dictated By: Kristal Reyes MD 09/21/23 1542 Signed By: 09/21/23 1545 Normal [facility] Physician Orderon 07-13-2023 Physician Order [id number] 364#1.00TIFF [facility] Consent for Treatmenton 06-14 Consent for Treatment [id number] 8#1.00TIFF [facility] Consent for Treatment [id number] 1A#1.00TIFF [facility] Physician Orderon 07-04-2023 Physician Order [id number] 6#1.00TIFF Normal [facility] XR Adult Swallowing Function w/ Videoon 07-04-2023 XR Adult Swallowing Function w/ Video Exam Date/Time: 07/04/2023 10:05 EDT Reason for Exam: 287.01 Report IMPRESSION: MILDLY ABNORMAL MODIFIED BARIUM SWALLOW. A FULL REPORT WILL BE MADE BY THE SPEECH PATHOLOGY TEAM. EXAM: XR Adult Swallowing Function w/ Video DATE: 07/04/2023 9:45 AM CLINICAL HISTORY: 287.01. COMPARISON: 05/25/2022 TECHNIQUE: Lateral videofluoroscopy was provided during speech therapy evaluation during ingestion of barium liquid and cracker. A total of 5.70 mGy Air Kerma (Ka, r) of fluoroscopy was used with 6 fluoroscopic cine series saved. No diagnostic images were obtained. FINDINGS: The study is somewhat limited secondary to the patient's medical condition and cooperation. Oral and pharyngeal phases are within functional limits. Deep laryngeal penetration is present within barium liquid. Moderate predominantly oral residual collections are noted with cracker. There is no tracheal aspiration observed. A full report will be made by the speech pathology team. Ordering Provider: IFTIKHAR KEMP FINAL REPORT Dictated: 07/04/2023 11:15 am David Berry MD Signed (Electronic Signature): 07/04/2023 11:15 am Signed by: David Berry MD Transcribed by: MARYBETH Technologist: ISSA Technical Comments Radiation Dose: Ka,r in mGy = 5.70 DAP = 134.69 Normal [facility] Physician Orderon 06-06-2023 Physician Order [id number] DA#1.00TIFF Normal [facility] CBCon 05-27-2023 ABSOLUTE BAS 0.1 10*3/uL Normal 0.0-0.[address] [facility] Comment on above: Result Comment: Test ing performed at [place] [address] Performed By: #### A CBC, CHEM7F #### [place] [address] ABSOLUTE EOS 0.1 10*3/uL Normal 0.0-0.[address] [facility] Comment on above: Performed By: #### A CBC, CHEM7F #### Testing performed at [address] [address] ABSOLUTE NEUTROPHIL COUNT 4.0 10*3/uL Normal 1.4-6.5 [facility] Comment on above: Performed By: #### A CBC, CHEM7F #### Testing performed at [place] [id number] Basophils/100 WBC (Bld) 1.0 % Normal 0.0-2.0 [facility] Comment on above: Performed By: #### A CBC, CHEM7F #### Testing performed at [place] [address]233 DTYPE AUTO DIFF Normal [facility] Comment on above: Performed By: #### A CBC, CHEM7F #### Testing performed at [place] [address]233 Eosinophils/100 WBC (Bld) 0.8 % Normal 0.0-11.0 [facility] Comment on above: Performed By: #### A CBC, CHEM7F #### Testing performed at [address] [address] Lymphocytes (Bld) [#/Vol] 2.0 10*3/uL Normal 1.2-3.4 [facility] Comment on above: Performed By: #### A CBC, CHEM7F #### Testing performed at [address] [address] Lymphocytes/100 WBC (Bld) 29.5 % Normal 20.0-55.0 [facility] Comment on above: Performed By: #### A CBC, CHEM7F #### Testing performed at [place] [address]233 Monocytes (Bld) [#/Vol] 0.5 10*3/uL Normal 0.0-0.7 [facility] Comment on above: Performed By: #### A CBC, CHEM7F #### Testing performed at [address] [address] Monocytes/100 WBC (Bld) 8.2 % Normal 0.0-10.0 [facility] Comment on above: Performed By: #### A CBC, CHEM7F #### Testing performed at [address] [address] Neutrophils/100 WBC (Bld) 60.5 % Normal 37.0-75.0 [facility] Comment on above: Performed By: #### A CBC, CHEM7F #### Testing performed at [address] [address] Erythrocyte distribution width (RBC) [Ratio] 14.6 % High 11.5-14.5 [facility] Comment on above: Performed By: #### A CBC, CHEM7F #### Testing performed at [address] [address] Hematocrit (Bld) [Volume fraction] 40.2 % Low 42.0-52.0 [facility] Comment on above: Performed By: #### A CBC, CHEM7F #### Testing performed at [address] [address] Hemoglobin (Bld) [Mass/Vol] 13.1 g/dL Low 14.0-18.0 [facility] Comment on above: Performed By: #### A CBC, CHEM7F #### Testing performed at [address] [address] MCH (RBC) [Entitic mass] 33.5 pg Normal 26.0-35.0 [facility] Comment on above: Performed By: #### A CBC, CHEM7F #### Testing performed at [address] [address] MCHC (RBC) [Mass/Vol] 32.7 g/dL Normal 27.0-37.0 [facility] Comment on above: Performed By: #### A CBC, CHEM7F #### Testing performed at [address] [address] MCV (RBC) [Entitic vol] 102.5 fL High 80.0-100.0 A [facility] Comment on above: Performed By: #### A CBC, CHEM7F #### Testing performed at [address] [address] Platelet mean volume (Bld) [Entitic vol] 7.0 fL Low 7.4-11.0 [facility] Comment on above: Performed By: #### A CBC, CHEM7F #### Testing performed at [address] [address] Platelets (Bld) [#/Vol] 280 10*3/uL Normal 130-400 [facility] Comment on above: Performed By: #### A CBC, CHEM7F #### Testing performed at [place] [address]233 RBC (Bld) [#/Vol] 3.92 10*6/uL Low 4.0-6.1 [facility] Comment on above: Performed By: #### A CBC, CHEM7F #### Testing performed at [place] [address] WBC (Bld) [#/Vol] 6.7 10*3/uL Normal 3.6-11.0 [facility] Comment on above: Performed By: #### A CBC, CHEM7F #### Testing performed at [address] [address] CBC, EDIF, PLATELETon 2023 ABSOLUTE BASOPHIL COUNT 0.1 10*3/uL 0.0 - 0.2 10*3/uL [facility] Comment on above: Testing performed at [place] [id number] Basophils/100 WBC (Bld) 1.0 % 0.0 - 2.0 % [facility] Differential cell count method Nom (Bld) AUTO DIFF % [facility] Eosinophils (Bld) [#/Vol] 0.1 10*3/uL 0.0 - 0.7 10*3/uL [facility] Eosinophils/100 WBC (Bld) 0.8 % 0.0 - 11.0 % [facility] Erythrocyte distribution width (RBC) [Ratio] 14.6 % High 11.5 - 14.5 % [facility] Hematocrit (Bld) [Volume fraction] 40.2 % Low 42.0 - 52.0 % [facility] Hemoglobin (Bld) [Mass/Vol] 13.1 g/dL Low [facility] Interpretation and review of laboratory results Abnormal [facility] Lymphocytes (Bld) [#/Vol] 2.0 10*3/uL 1.2 - 3.4 10*3/uL [facility] Lymphocytes/100 WBC (Bld) 29.5 % 20.0 - 55.0 % [facility] MCH (RBC) [Entitic mass] 33.5 pg 26.0 - 35.0 PG [facility] MCHC (RBC) [Mass/Vol] 32.7 g/dL [facility] MCV (RBC) [Entitic vol] 102.5 fL High A [facility] Monocytes (Bld) [#/Vol] 0.5 10*3/uL 0.0 - 0.7 10*3/uL [facility] Monocytes/100 WBC (Bld) 8.2 % 0.0 - 10.0 % [facility] Neutrophils (Bld) [#/Vol] 4.0 10*3/uL 1.4 - 6.5 10*3/uL [facility] Neutrophils/100 WBC (Bld) 60.5 % 37.0 - 75.0 % [facility] Platelet mean volume (Bld) [Entitic vol] 7.0 fL Low [facility] Platelets (Bld) [#/Vol] 280 10*3/uL 130 - 400 10*3/uL [facility] RBC (Bld) [#/Vol] 3.92 10*6/uL Low 4.0 - 6.1 10*6/uL [facility] WBC (Bld) [#/Vol] 6.7 10*3/uL 3.6 - 11.0 10*3/uL [facility] CHEM 7 FASTINGon 05-27-2023 Chloride [Moles/Vol] 106 mmol/L Normal 98-107 [facility] Comment on above: Result Comment: Chayo garner note: Triglyceride levels of 600mg/dL or higher may positively bias chloride results by approximately 2.1 mmol Performed By: #### A CBC, CHEM7F #### [place] [address] CO2 [Moles/Vol] 28 mmol/L Normal 22-30 [facility] Comment on above: Performed By: #### A CBC, CHEM7F #### [place] [address] Creatinine [Mass/Vol] 1.30 mg/dL High 0.7-1.2 [facility] Comment on above: Performed By: #### A CBC, CHEM7F #### Testing performed at [place] [address]233 EST. GFR, 83 ml/min/1.73sq.m [facility] Comment on above: Performed By: #### A CBC, CHEM7F #### [place] [address] EST. GFR,Non 69 ml/min/1.73sq.m Normal [facility] Comment on above: Performed By: #### A CBC, CHEM7F #### [place] [address] GFR Information Average GFR for 30-39 years old = 107. Normal [facility] Comment on above: Result Comment: [employer] maye Kidney disease, GFR = <60. Kidney failure, GFR = <15. The GFR estimate is not adjusted for extreme body surface area or acute process, nor has it been validated for women or ethnic groups other than and . Testing performed at [place] [address] Performed By: #### A CBC, CHEM7F #### [place] [address] Glucose [Mass/Vol] 110 mg/dL High 70-100 [facility] Comment on above: Result Comment: NORMAL <100 mg/dL PREDIABETES 101-126 mg/dL DIABETES 126 mg/dL or higher Performed By: #### A CBC, CHEM7F #### [place] [address] Potassium [Moles/Vol] 3.8 mmol/L Normal 3.5-5.1 [facility] Comment on above: Performed By: #### A CBC, CHEM7F #### Testing performed at [place] [address]233 Sodium [Moles/Vol] 144 mmol/L Normal 137-145 [facility] Comment on above: Performed By: #### A CBC, CHEM7F #### Testing performed at [place] [address]233 Urea nitrogen [Mass/Vol] 19 mg/dL Normal 7-20 [facility] Comment on above: Performed By: #### A CBC, CHEM7F #### Testing performed at [place] [address]233 CHEM 7 (LYTES,BUN,CREA,GLUC) on 05-27-2023 Chloride [Moles/Vol] 106 mmol/L [facility] Comment on above: Please note: Triglyc eride levels of 600mg/dL or higher may positively bias chloride results by approximately 2.1 mmol CO2 [Moles/Vol] 28 mmol/L [facility] Creatinine [Mass/Vol] 1.30 mg/dL High [facility] [employer] GFR COMMENT Average GFR for 30-39 years old = 107. [facility] Comment on above: Chronic Kidney disea se, GFR = <60. Kidney failure, GFR = <15. The GFR estimate is not adjusted for extreme body surface area or acute process, nor has it been validated for women or ethnic groups other than and . Testing performed at [place], [place] [address] GFR/1.73 sq M.predicted among blacks MDRD (S/P/Bld) [Vol rate/Area] 83 mL/min/{1.73_m2} ml/min/1.73sq. m [facility] GFR/1.73 sq M.predicted among non-blacks MDRD (S/P/Bld) [Vol rate/Area] 69 mL/min/{1.73_m2} ml/min/1.73sq. m [facility] Glucose post fast [Mass/Vol] 110 mg/dL [facility] Comment on above: NORMAL <100 mg/dL PREDIABETES 101-126 mg/dL DIABETES 126 mg/dL or higher Interpretation and review of laboratory results Abnormal [facility] Potassium [Moles/Vol] 3.8 mmol/L [facility] Sodium [Moles/Vol] 144 mmol/L [facility] Urea nitrogen [Mass/Vol] 19 mg/dL [facility] Portable XR Chest Viewson IMPRESSION: Unremarkable chest. RADIOLOGY EXAM: XR CHEST 1 VIEW PORTABLE HISTORY: Vomit, choking. COMPARISON: 01/06/2018. TECHNIQUE: One view AP portable upright. FINDINGS: The lung volumes are low. The heart size is within normal limits allowing for AP portable technique and low lung volumes. The lungs appear clear. There is no pneumothorax or pleural effusion. The mediastinal and hilar contours appear unremarkable. RADIOLOGY Terrell Márquez MD - 05/27/2023 EXAM: XR CHEST 1 VIEW PORTABLE HISTORY: Vomit, choking. COMPARISON: 01/06/2018. TECHNIQUE: One view AP portable upright. FINDINGS: The lung volumes are low. The heart size is within normal limits allowing for AP portable technique and low lung volumes. The lungs appear clear. There is no pneumothorax or pleural effusion. The mediastinal and hilar contours appear unremarkable. IMPRESSION IMPRESSION: Unremarkable chest. [facility] Radiology Study observation (narrative) [facility] Portable XR Chest ViewsOrder ed By: Terrell Márquez on 05-27-2023 [facility] Work Phone: XR CHEST 1 VIEW PORTABLEon 0 05-27-2023 XR CHEST 1 VIEW PORTABLE EXAM: XR CHEST 1 VIEW PORTABLE HISTORY: Vomit, choking. COMPARISON: 01/06/2018. TECHNIQUE: One view AP portable upright. FINDINGS: The lung volumes are low. The heart size is within normal limits allowing for AP portable technique and low lung volumes. The lungs appear clear. There is no pneumothorax or pleural effusion. The mediastinal and hilar contours appear unremarkable. IMPRESSION: Unremarkable chest. Normal [facility] Lithiumon 05-12-2023 [place] [Moles/Vol] 0.4 mmol/L Low 0.5-1.2 [facility] Comment on above: Result Comment: A co ncentration of 0.5-0.8 mmol/L is advised for long-term use; concentrations of up to 1.2 mmol/L may be necessary during acute treatment. Detection Limit = 0.1 <0.1 indicates None Detected Performed at: [facility] [address] [place], [place] [id number] PhD Shaka Oleary Performed By: #### 2 136719, 3718281, 19723310, 3606972, 8195297, 7066261, 3600440, 3031400, 2779645, 9477814 ####[facility] [address] [place] [address] T3 Freeon 05-12-2023 Free T3 [Mass/Vol] 2.5 pg/mL Invalid Interpretation Code 2.0-4.4 [facility] Comment on above: Result Comment: Perf ormed at: [facility] [address] [id number] PhD Shaka Oleary Performed By: #### 2 468887, 5866116, 98643234, 9463697, 4721243, 4207965, 8074625, 0320721, 1627382, 1450362 ####[facility] [address] [place] [address] CBC w/IndicesOrdered By: [employer] SYSTEM on 05-10-2023 Erythrocyte distribution width (RBC) [Ratio] 14.9 % High 10.9-14.2 [facility] Comment on above: Performed By: #### 2 255172, 8786009, 20853603, 6991913, 5521807, 6799348, 5796554, 0079023, 8903355, 3142268 #### [facility] [address] [place] [address] Hematocrit (Bld) [Volume fraction] 42.4 % Normal 37.7-49.0 [facility] Comment on above: Performed By: #### 2 756530, 5833176, 18992219, 1711536, 7355141, 0140810, 2153382, 6419658, 4345613, 4436865 #### [facility] [address] [place] [address] Hemoglobin (Bld) [Mass/Vol] 13.5 g/dL Normal 13.5-17.5 [facility] Comment on above: Performed By: #### 2 744142, 6911543, 86908288, 2094886, 9117439, 0999667, 2669383, 5506086, 1133948, 9952069 #### [facility] [address] [place] [address] MCH (RBC) [Entitic mass] 33.4 pg Normal 27.0-34.0 [facility] Comment on above: Performed By: #### 2 082299, 6206763, 56046263, 1495818, 3615912, 3847538, 7653319, 5352041, 7769209, 2557549 #### [facility] [address] [place] [address] MCHC (RBC) [Mass/Vol] 31.9 g/dL Normal 31.4-36.0 [facility] Comment on above: Performed By: #### 2 095815, 1021790, 22933863, 4790610, 8770983, 6217934, 6603298, 2645143, 4397293, 0345958 #### [facility] [address] [place] [address] MCV (RBC) [Entitic vol] 104.9 fL High 80.0-100.0 [facility] Comment on above: Performed By: #### 2 057897, 5901545, 35752283, 7837242, 4812479, 6576196, 9885024, 4359806, 9180721, 6860996 #### [facility] [address] [place] [address] Platelet mean volume (Bld) [Entitic vol] 7.7 fL Normal 6.4-10.8 [facility] Comment on above: Performed By: #### 2 438096, 6419231, 49543780, 2653459, 3119002, 5558674, 3651916, 0505832, 4087216, 5332020 #### [facility] [address] [place] [address] Platelets (Bld) [#/Vol] 359.0 E9/L Normal 150.0-500.0 [facility] Comment on above: Performed By: #### 2 462953, 4750569, 28324061, 1900741, 6040970, 1503269, 1544101, 4168313, 6582690, 2045204 #### [facility] [address] [place] [address] RBC (Bld) [#/Vol] 4.0 E12/L Low 4.3-5.9 [facility] Comment on above: Performed By: #### 2 879251, 5652098, 66685249, 4284338, 2206408, 0597418, 1676999, 6998022, 8345751, 6849627 #### [facility] [address] [place] [address] WBC corrected for nucl RBC Auto (Bld) [#/Vol] 4.6 E9/L Normal 4.0-11.0 [facility] Comment on above: Performed By: #### 2 026449, 6237622, 75200902, 0882116, 8107194, 6568902, 7317772, 1197013, 6019837, 1806143 #### [facility] [address] [place] [id number] CBC w/Indiceson 05-10-2023 RBC size Nom (Bld) NORMAL Invalid Interpretation Code [facility] Comment on above: Performed By: #### 2 356736, 4355490, 21495620, 9819032, 1224247, 7571290, 5018881, 1528755, 5967047, 7955649 #### [facility] [address] [place], [place] [address] CHEMISTRYOrdered By: SYSTEM SYSTEM on 05-10-2023 Albumin/Globulin [Mass ratio] 0.9 {ratio} Low 1.1 - 2.2 [facility] ALP [Catalytic activity/Vol] 72 [iU]/d Normal 21 - 98 Int._Unit/L [facility] ALT No additional P-5'-P [Catalytic activity/Vol] 9 [iU]/d Normal 6 - 46 Int._Unit/L [facility] AST [Catalytic activity/Vol] 17 [iU]/d Normal 5 - 43 Int._Unit/L [facility] Iron [Mass/Vol] 70 ug/dL Normal 35 - 153 mcg/dL [facility] Urea nitrogen/Creatinine [Mass ratio] 15 mg/mg Normal 10 - 20 [facility] CMPOrdered By: SYSTEM SYSTEM on 05-10-2023 Albumin [Mass/Vol] 3.7 g/dL Normal 3.3-5.0 [facility] Comment on above: Performed By: #### 2 717953, 1234806, 47553914, 6091519, 5203393, 3553154, 3746225, 4826998, 4071137, 5057386 #### [facility] [address] [place] [address] Anion gap [Moles/Vol] 10 mmol/L Normal 6-16 [facility] Comment on above: Performed By: #### 2 837663, 6278618, 22446063, 3259233, 8906646, 9715487, 4656972, 2537642, 8885111, 1285767 #### [facility] [address] [place] [address] Bilirubin [Mass/Vol] 0.2 mg/dL Normal 0.0-1.1 [facility] Comment on above: Performed By: #### 2 792382, 7252262, 80001164, 9844050, 9612624, 3741943, 1526758, 5033356, 4747618, 4741782 #### [facility] [address] [place] [address] Calcium [Mass/Vol] 9.6 mg/dL Normal 8.9-11.1 [facility] Comment on above: Performed By: #### 2 901773, 9646573, 07765671, 2750902, 1438361, 8869230, 2576798, 7196593, 0115124, 0544369 #### [facility] [address] [place] [address] Chloride [Moles/Vol] 108 mmol/L Normal 101-111 [facility] Comment on above: Performed By: #### 2 059057, 8912831, 18863749, 1308960, 4397352, 9986426, 9409589, 0673258, 5287561, 9392076 #### [facility] [address] [place] [address] CO2 [Moles/Vol] 30 mmol/L Normal 21-31 [facility] Comment on above: Performed By: #### 2 003838, 6323847, 62631646, 2665971, 2190438, 5926296, 8153430, 5243991, 3041084, 3654852 #### [facility] [address] [place] [address] Creatinine [Mass/Vol] 1.2 mg/dL Normal 0.5-1.3 Rem isol Chem Comment on above: Performed By: #### 2 709632, 1745652, 03277178, 2487190, 6110408, 9437627, 4309006, 5308461, 5076434, 9032501 #### [facility] [address] [place] [address] Globulin (S) [Mass/Vol] 3.9 g/dL Normal 1.4-4.0 R emisol Chem Comment on above: Performed By: #### 2 466931, 7657779, 09326324, 6411168, 4977801, 4953864, 5173450, 2431156, 5877591, 4574333 #### [facility] [address] [place] [address] Glucose [Mass/Vol] 84 mg/dL Normal 55-199 [facility] Comment on above: Performed By: #### 2 897427, 6938245, 05796579, 1066242, 0746494, 1899941, 5949117, 2132538, 8943822, 5736636 #### [facility] [facility] [address] [place] [address] Potassium [Moles/Vol] 4.3 mmol/L Normal 3.5-5.3 Rem isol Chem Comment on above: Performed By: #### 2 191069, 4248508, 66654160, 7794392, 9007942, 9934563, 8903441, 7207185, 5478201, 2227699 #### [facility] [address] [place] [address] Protein [Mass/Vol] 7.6 g/dL Normal 6.0-7.8 Remiso l Chem Comment on above: Performed By: #### 2 014232, 7428820, 08298453, 8014003, 9568926, 3659019, 4100081, 0098368, 4113904, 5798046 #### [facility] [address] [place] [address] Sodium [Moles/Vol] 144 mmol/L Normal 135-145 Remiso l Chem Comment on above: Performed By: #### 2 138519, 9588538, 12173013, 3316690, 8798275, 6105214, 4970151, 4138476, 7637692, 7061569 #### [facility] [address] [place] [address] Urea nitrogen [Mass/Vol] 18 mg/dL Normal 5-21 Remisol Chem Comment on above: Performed By: #### 2 337566, 5967871, 47118976, 6461129, 2818167, 5272530, 7740514, 9242130, 0669712, 2077651 #### [facility] [address] [place] [address] CMPon 05-10-2023 Albumin/Globulin (S) [Mass conc ratio] 0.9 Low 1.1-2.2 [facility] Comment on above: Performed By: #### 2 827082, 0861312, 48780801, 9957900, 2425052, 9082751, 5625362, 1600272, 7499999, 8392374 #### [facility] [address] [place] [address] ALP [Catalytic activity/Vol] 72 Int._Unit/L Normal 21-98 [facility] Comment on above: Performed By: #### 2 622387, 1978383, 05940466, 0874538, 5840665, 1938377, 9557488, 3193202, 0340380, 0982801 #### [facility] [address] [place] [address] ALT No additional P-5'-P [Catalytic activity/Vol] 9 Int._Unit/L Normal 6-46 [facility] Comment on above: Performed By: #### 2 759267, 2308252, 14540303, 3503241, 2526014, 3801393, 5262942, 6695889, 7016997, 8861109 #### [facility] [address] [id number] AST [Catalytic activity/Vol] 17 Int._Unit/L Normal 5-43 [facility] Comment on above: Performed By: #### 2 928342, 3192479, 98723481, 0695446, 1911572, 9692607, 0209321, 0623566, 9169196, 4626676 #### [facility] [address] [place], [place] [id number] Urea nitrogen/Creatinine [Mass ratio] 15 No Units Normal 10-20 [facility] Comment on above: Performed By: #### 2 280834, 5541473, 21436676, 1561297, 1710978, 8524088, 1978917, 4669284, 5851561, 1176469 #### [facility] [address] [address] CarbamazepineOrdered By: SYS TEM SYSTEM on 05-10-2023 Carbamaz Lvl 7.3 microgram/mL Normal 4.0-12.0 Remiso l Chem Comment on above: Performed By: #### 2 322808, 6595580, 71892148, 0094579, 9461838, 7731067, 9017495, 6326274, 9004713, 8303924 #### [facility] [address] [id number] Free D2Chfoysv By: SYSTEM SY STEM on 05-10-2023 Free T4 [Mass/Vol] 0.61 ng/dL Normal 0.58-1.64 Remiso l Chem Comment on above: Performed By: #### 2 144222, 2923011, 52983660, 8731294, 2283435, 7442077, 1534021, 7690713, 4706439, 8657299 #### [facility] [address] [id number] HEMATOLOGYOrdered By: SYSTEM SYSTEM on 05-10-2023 RBC size Nom (Bld) NORMAL *NA* (05/10/23 7:00 AM) Invalid Interpretation Code Remisol Heme Ironon 05-10-2023 Iron [Mass/Vol] 70 microgram/dL Normal 35-153 [facility] Comment on above: Performed By: #### 2 180986, 8605656, 52724780, 1675343, 9201611, 2455477, 8096641, 0352709, 6271886, 7533833 #### [facility] [address] [address] Physician Orderon 05-10-2023 Physician Order [id number] 31#[id number] Normal [facility] TSHOrdered By: SYSTEM SYSTEM on 05-10-2023 TSH Qn 3.75 m[IU]/L Normal 0.34-5.60 [facility] Comment on above: Performed By: #### 2 647132, 4020694, 48417395, 2588929, 3793228, 3904984, 4524256, 4139584, 1739860, 2411361 #### [facility] [address] [id number] Vit H63Cvezmdp By: SYSTEM AstroloMe STEM on 05-10-2023 Cobalamin (Vitamin B12) [Mass/Vol] 479 pg/mL Normal 50-1500 [facility] Comment on above: Performed By: #### 2 786743, 3948566, 43807782, 0552474, 8884243, 7016559, 6713886, 8284044, 2624560, 8562944 ####[facility] [address] [place] [address] eGFROrdered By: SYSTEM SYSTE [employer] on 05-10-2023 eGFR 83 mL/min/1.73 m2 Normal >=59 [facility] Comment on above: Order Comment: Order added by Discern Expert. Performed By: #### 2 046316, 7614772, 92176935, 9677482, 5658894, 5590368, 4448150, 9347261, 8958413, 4031584 #### [facility] [address] [place] [address] CARBAMAZEPINEon 05-18-2022 Carbamezapine 6.9 ug/mL Normal 4.0-12.0 [facility] Comment on above: Result Comment: In c onjunction with other antiepileptic drugs Therapeutic 4.0 - 8.0 Toxicity 9.0 - 12.0 . Carbamazepine alone Therapeutic 8.0 - 12.0 . Detection Limit = 2.0 <2.0 indicates None Detected Performed By: #### C ARBLC #### [facility] [address] [place] [address] Dr. Chase Pedro LITHIUMon 05-18-2022 [place] (Eskalith(R)), Serum 0.7 mmol/L Normal 0.5-1.2 [facility] Comment on above: Result Comment: A co ncentration of 0.5-0.8 mmol/L is advised for long-term use; concentrations of up to 1.2 mmol/L may be necessary during acute treatment. Detection Limit = 0.1 <0.1 indicates None Detected Performed By: #### L ITHIUM #### [facility] [address] [address] [address] Chase Pedro CBC AUTO DIFFon 05-17-2022 BASO # 0.1 103/ul Normal 0.0-0.1 [facility] Comment on above: Performed By: #### C BC #### [facility] [address] [address] [address] Chase Pedro Basophils/100 WBC (Bld) 1.2 % Normal 0.2-2.0 [facility] Comment on above: Performed By: #### C BC #### [facility] [address] [place] [address] Dr. Chase Pedro EO # 0.0 103/ul Normal 0.0-0.7 [facility] Comment on above: Performed By: #### C BC #### [facility] [address] [place] [address] Dr. Chase Pedro Eosinophils/100 WBC (Bld) 0.2 % Critically low 0.9-7.0 [facility] Comment on above: Performed By: #### C BC #### [facility] [address] [place] [address] Dr. Chase Pedro Erythrocyte distribution width (RBC) [Ratio] 12.8 % Normal 11.0-15.0 [facility] Comment on above: Performed By: #### C BC #### [facility] [address] [place] [address] Dr. Chase Pedro Hematocrit (Bld) [Volume fraction] 42.5 % Normal 42.0-54.0 [facility] Comment on above: Performed By: #### C BC #### [facility] [address] [place] [address] Dr. Chase Pedro Hemoglobin (Bld) [Mass/Vol] 13.8 g/dL Critically low 14.0-18.0 [facility] Comment on above: Performed By: #### C BC #### [facility] [address] [place] [address] Dr. Chase Pedro IG # 0.02 10e3/ul Normal 0.00-0.03 [facility] Comment on above: Performed By: #### C BC #### [facility] [address] [place] [address] Dr. Chase Pedro IG % 0.4 % Normal 0.0-0.5 [facility] Comment on above: Performed By: #### C BC #### [facility] [address] [place] [address] Dr. Chase Pedro LYMPH # 2.3 103/ul Normal 1.2-3.8 [facility] Comment on above: Performed By: #### C BC #### [facility] [address] [place] [address] Dr. Chase Pedro Lymphocytes/100 WBC (Bld) 45.8 % Normal 20.5-60.0 [facility] Comment on above: Performed By: #### C BC #### [facility] [address] [place] [address] Dr. Chase Pedro MANUAL DIFF REQ NO Normal [facility] Comment on above: Performed By: #### C BC #### [facility] [address] [place] [address] Dr. Chase Pedro MCH (RBC) [Entitic mass] 33.8 pg Normal 25.9-34.0 [facility] Comment on above: Performed By: #### C BC #### [facility] [address] [place] [address] Dr. Chase Pedro MCHC (RBC) [Mass/Vol] 32.5 g/dL Normal 29.9-35.2 [facility] Comment on above: Performed By: #### C BC #### [facility] [address] [place] [address] Dr. Chase Pedro MCV (RBC) [Entitic vol] 104.2 fL Critically high 80.0-94 .0 [facility] Comment on above: Performed By: #### C BC #### [facility] [address] [place] [address] Dr. Chase Pedro MONO # 0.3 103/ul Normal 0.3-0.8 [facility] Comment on above: Performed By: #### C BC #### [facility] [address] [place] [address] Dr. Chase Pedro Monocytes/100 WBC (Bld) 5.7 % Normal 1.7-12.0 [facility] Comment on above: Performed By: #### C BC #### [facility] [address] [place] [address] Dr. Chase Pedro NEUT # 2.3 103/ul Normal 1.4-6.5 [facility] Comment on above: Performed By: #### C BC #### [facility] [address] [address] [address] Chase Pedro Neutrophils/100 WBC (Bld) 46.7 % Normal 43.0-75.0 [facility] Comment on above: Performed By: #### C BC #### [facility] [address] [address] [address] Chase Pedro Platelet mean volume (Bld) [Entitic vol] 9.2 fL Critically low 9.5-13.5 [facility] Comment on above: Performed By: #### C BC #### [facility] [address] [address] [address] Chase Pedro PLT 288 103/ul Normal 150-450 [facility] Comment on above: Performed By: #### C BC #### [facility] [address] [place] [address] Dr. Chase Pedro RBC 4.08 106/ul Critically low 4.70-6.10 [facility] Comment on above: Performed By: #### C BC #### [facility] [address] [address] [address] Chase Pedro WBC 4.9 103/ul Normal 4.0-11.0 [facility] Comment on above: Performed By: #### C BC #### [facility] [address] [place] [address] Dr. Chase Pedro DEPAKENE/ VALPROIC ACIDon DEPAKENE 56.7 ug/ml Normal 50.0-100.0 [facility] Comment on above: Performed By: #### C MP, TSH, VALP #### [facility] [address] [address] [address] Chase Pedro PROF 14(COMP METB)on 023 Albumin [Mass/Vol] 3.5 g/dL Normal 3.4-5.0 [facility] Comment on above: Performed By: #### C MP, TSH, VALP #### [facility] [address] [place] [address] Dr. Chase Pedro Albumin/Globulin [Mass ratio] 0.8 {ratio} Normal [facility] Comment on above: Performed By: #### C MP, TSH, VALP #### [facility] [address] [place] [address] Dr. Chase Pedro ALP [Catalytic activity/Vol] 110 U/L Normal 46-116 [facility] Comment on above: Performed By: #### C MP, TSH, VALP #### [facility] [address] [place] [address] Dr. Chase Pedro ALT [Catalytic activity/Vol] 18 U/L Normal 16-63 [facility] Comment on above: Performed By: #### C MP, TSH, VALP #### [facility] [address] [place] [address] Dr. Chase Pedro Anion gap [Moles/Vol] 8.0 mmol/L Normal [facility] Comment on above: Performed By: #### C MP, TSH, VALP #### [facility] [address] [place] [address] Dr. Chase Pedro AST [Catalytic activity/Vol] 12 U/L Critically low 15-37 [facility] Comment on above: Performed By: #### C MP, TSH, VALP #### [facility] [address] [place] [address] Dr. Chase Pedro Bilirubin [Mass/Vol] 0.3 mg/dL Normal 0.2-1.0 [facility] Comment on above: Performed By: #### C MP, TSH, VALP #### [facility] [address] [place] [address] Dr. Chase Pedro Calcium [Mass/Vol] 9.3 mg/dL Normal 8.5-10.1 [facility] Comment on above: Performed By: #### C MP, TSH, VALP #### [facility] [address] [place] [address] Dr. Chase Pedro Chloride [Moles/Vol] 107 mmol/L Normal 98-107 [facility] Comment on above: Performed By: #### C MP, TSH, VALP #### [facility] [address] [address] [address] Chase Pedro CO2 [Moles/Vol] 36.9 mmol/L Critically high 21.0-32.0 [facility] Comment on above: Performed By: #### C MP, TSH, VALP #### [facility] [address] [place] [address] Dr. Chase Pedro Creatinine [Mass/Vol] 1.46 mg/dL Critically high 0.70-1.30 [facility] Comment on above: Performed By: #### C MP, TSH, VALP #### [facility] [address] [address] [address] Chase Pedro EGFR-AF CAMBODIAN >60 Normal >=60 [facility] Comment on above: Performed By: #### C MP, TSH, VALP #### [facility] [address] [place] [address] Dr. Chase Pedro EGFR-NON AF CAMBODIAN 57 mL/min/1.73m2 Critically low >=60 [facility] Comment on above: Performed By: #### C MP, TSH, VALP #### [facility] [address] [place] [address] Dr. Chase Pedro Globulin (S) [Mass/Vol] 4.4 g/dL Normal [facility] Comment on above: Performed By: #### C MP, TSH, VALP #### [facility] [address] [place] [address] Dr. Chase Pedro Glucose [Mass/Vol] 94 mg/dL Normal 74-106 [facility] Comment on above: Performed By: #### C MP, TSH, VALP #### [facility] [address] [place] [address] Dr. Chase Pedro Potassium [Moles/Vol] 3.9 mmol/L Normal 3.5-5.1 [facility] Comment on above: Performed By: #### C MP, TSH, VALP #### [facility] [address] [place] [address] Dr. Chase Pedro Protein [Mass/Vol] 7.9 g/dL Normal 6.4-8.2 [facility] Comment on above: Performed By: #### C MP, TSH, VALP #### [facility] [address] [address] [address] Chase Pedro Sodium [Moles/Vol] 148 mmol/L Critically high 136-145 [facility] Comment on above: Performed By: #### C MP, TSH, VALP #### [facility] [address] [place] [address] Dr. Chase Pedro Urea nitrogen [Mass/Vol] 17.0 mg/dL Normal 7.0-18.0 [facility] Comment on above: Performed By: #### C MP, TSH, VALP #### [facility] [address] [place] [address] Dr. Chase Pedro Urea nitrogen/Creatinine [Mass ratio] 11.6 mg/mg Normal [facility] Comment on above: Performed By: #### C MP, TSH, VALP #### [facility] [address] [place] [address] Dr. Chase Pedro TSHon 05-17-2022 TSH 0.725 uIU/mL Normal 0.358-3.740 [facility] Comment on above: Performed By: #### C MP, TSH, VALP #### [facility] [address] [place] [address] Dr. Chase Pedro Progress Noteson 09-22-2021 Combination Saw Operator Authentication Interface Message Text ----- Wednesday, September 22, 2021 at 11:33:21 AM ----- ----- Provider: Shell Singh, Resident -- Clinic: [place] ----- COMPOSITE YAZIDISM Patient is scheduled for [facility] on tooth #22-MDF, 23-MDF, 24-MDF, 25-MDF, 26-MDF and 27 surface MDF. Reviewed Medical History. Pt exhibited the following conditions: Mental Disorders Patient is ready for treatment. Topical Benzocaine gel applied at the injection site for 2 minutes. Administered 1 carpules of Lidocaine, 2% with Epinephrine 1:100,000,. Decay/existing gnosticism removed, cavity prepared. Selectively etched enamel with 37% phosphoric acid, rinsed, and blot dried. OptiBond davidson applied and light-cured. Condensed packable composite shade in light cured increments using Mylar strip and wedge. Finished with finishing burs, checked occlusion, verified proximal contacts and gnosticism was polished. Rinsed and suctioned intraorally, advised [...] ----- Provider: Emeterio Zapata DDS -- Clinic: [place] ----- Normal [employer] WOUND CULTUREon 07-18-2021 Antimicrobial Susceptibility Comment Normal [facility] Comment on above: Result Comment: S = Susceptible; I = Intermediate; R = Resistant P = Positive; N = Negative MICS are expressed in micrograms per mL Antibiotic RSLT#1 RSLT#2 RSLT#3 RSLT#4 Penicillin S Vancomycin S Performed By: #### C XWND #### [facility] [address] [place] [address] Dr. Chase Pedro Bacteria identified Aer cx Nom (Unsp spec) Final report Abnormal [facility] Comment on above: Performed By: #### C XWND #### [facility] [address] [place] [address] Dr. Chase Pedro Result 1 Enterococcus faecalis Abnormal [facility] Comment on above: Result Comment: For Enterococcus species, aminoglycosides (except for high-level resistance screening), cephalosporins, clindamycin, and trimethoprim-sulfamethoxazole are not effective clinically. (CLSI, [id number], 2016) Heavy growth Performed By: #### C XWND #### [facility] [address] [place] [address] Dr. Chase Pedro Progress Noteson 06-08-2021 Combination Saw Operator Authentication Interface Message Text [facility], Pt is ready for tx PT is [...] on 6 month recall. Examination completed by /[employer] [employer] [facility] [place]: mian ----- Signed on Tuesday, June 08, 2021 at 2:17:56 PM ----- ----- Provider: Emeterio Zapata DDS -- Clinic: [place] ----- Normal [facility] [employer] [facility] XR MODIFIED BARIUM SWALLOWon 05-06-2021 XR [...] ID: [id number] Dictated by: WELLINGTON BUTT on [place] May 06, 2021 2:54:29 PM EDT Transcribed by: WELLINGTON BUTT on MonMay 06, 2021 2:54:29 PM EDT Finalized by: WELLINGTON BUTT on MonMay 06, 2021 2:54:29 PM EDT Normal [facility] Comment on above: Order Comment: Injur [...] shotty mediastinal and hilar lymph nodes. The technical account representative conglomeration of 2 lymph nodes in [...] pneumomediastinum. Cardiomegaly, significant for the patient's age. [employer] Workstation ID: [id number] Dictated by: BERNADETTE ARANA on MonMay 05, 2021 2:07:05 PM EDT Transcribed by: NIKI QUESADA on MonMay 05, 2021 2:30:07 PM EDT Finalized by: BERNADETTE ARANA on MonMay 05, 2021 2:37:50 PM EDT [facility] Comment on above: Order Comment: Injur [...] on MonMay 04, 2021 8:43:37 PM EDT [facility] Comment on above: Order Comment: Injur y/Trauma or Illness?:Illness/Other How long have you had these symptoms (acute/chronic)?:Acute Reason for exam?:sob, covid pos History of cancer?:UN Surgeries, chemotherapy, or radiation?:UN Type of Exam?:Initial Additional signs and symptoms?: COVID-19/INFLUENZA A,B MOLEC Paul 05-02-2021 SARS-CoV-2 (COVID-19) Ab IA Ql INFLUENZA A (CEPHEID): Not Detected INFLUENZA B (CEPHEID): Not Detected SARS-COV-2 (CEPHEID): Detected This test was performed under the FDA's Emergency Use Authorization (EUA). Testing was performed using the Xpert?? Xpress SARS-CoV-2/Flu/RSV plus RT-PCR Cepheid assay on the [employer] Xpress System. This test has not been approved for use in asymptomatic patients and its performance in this patient population has not been evaluated. Negative results do not rule out the presence of SARS-CoV-2/COVID-19 . Fact sheets for this EUA can be found at the following links: For Healthcare Providers: https://www.fda.gov /media/754271/downl oad For Patients: https://www.fda.gov /media/174571/downl oad [facility] Comment on above: Performed By: #### L [id number] #### [facility] [address] [id number] Liam Casas M.D. [id number] XR CHEST PA/APon 05-02-2021 XR CHEST PA/AP [...] left lung base. Findings consistent with pneumonia. [facility] Workstation ID: [id number] Dictated by: FRANCK JEFFERS on [place] May 02, 2021 1:44:03 PM EDT Transcribed by: CAMI CHAHAL on MonMay 02, 2021 1:47:37 PM EDT Finalized by: FRANCK JEFFERS on [place] May 02, 2021 2:44:35 PM EDT [facility] Comment on above: Order Comment: Fully upright [...] refer to the speech pathologist's detailed report. [employer] Workstation ID: [id number] [facility] EXAMINATION: XR MODIFIED BARIUM SWALLOW HISTORY: Dx: [...] There was no radiographic evidence of tracheal aspiration/penetrat ion. [facility] Interface, Rad In [employer] - 07/08/2020 8:42 PM EDT EXAMINATION: XR [...] There was no radiographic evidence of tracheal aspiration/penetrat ion. IMPRESSION: No radiographic evidence of tracheal aspiration. For further information as well as dietary recommendations, please refer to the speech pathologist's detailed report. [employer] Workstation ID: [id number] [facility] XR MODIFIED BARIUM SWALLOWon 07-08-2020 XR [...] There was no radiographic evidence of tracheal aspiration/penetrat ion. IMPRESSION: No radiographic evidence of tracheal aspiration. For further information as well as dietary recommendations, please refer to the speech pathologist's detailed report. [employer] Workstation ID: [id number] Dictated by: BERNADETTE ARANA on MonJuly 08, 2020 7:29:57 PM EDT Transcribed by: CAMI CHAHAL on MonJuly 08, 2020 7:30:41 PM EDT Finalized by: BERNADETTE ARANA on MonJuly 08, 2020 8:40:23 PM EDT [facility] Comment on above: Order Comment: ROULA Gutierrez ORDER Injury/Trauma or Illness?:Illness/Other How long have you had these symptoms (acute/chronic)?:Acute Reason for exam?: Dyspepsia Type of Exam?:Ongoing Additional signs and symptoms?: Dyspepsia Fluoro time in minutes:.4 40 seconds fluoro Fluoro dose in mGy?:22.92 Basic Metabolic Panelon 02-13 Anion gap [Moles/Vol] 7 mmol/L Low 10 - 20 mmol/L [facility] Calcium [Mass/Vol] 9.2 mg/dL 8.4 - 10. 2 mg/dL [facility] Chloride [Moles/Vol] 98 mmol/L 98 - 10 8 mmol/L [facility] Creatinine [Mass/Vol] 1.56 mg/dL High 0.5 - 1.3 mg/dL [facility] GFR/1.73 sq M predicted among non-blacks MDRD (S/P/Bld) [Vol rate/Area] The eGFR should be used for monitoring renal function only and not for medication dosing. [facility] GFR/1.73 sq M.predicted CKD-EPI (S/P/Bld) [Vol rate/Area] 60 >=60 mL/min/1.73 m2 [facility] Glucose [Mass/Vol] 102 mg/dL High 65 - 99 mg/dL [facility] HCO3 [Moles/Vol] 40 mmol/L High 21 - 32 mmol/L [facility] Potassium [Moles/Vol] 4.0 mmol/L 3.5 - 5.1 mmol/L [facility] Sodium [Moles/Vol] 141 mmol/L 135 - 145 mmol/L [facility] Urea nitrogen [Mass/Vol] 28 mg/dL High 8 - 25 mg/dL [facility] Urea nitrogen/Creatinine [Mass ratio] 17.9 mg/mg [facility] CBC WITH AUTO DIFFERENTIALon 03-01-2019 Basophils (Bld) [#/Vol] 0.05 10*3/uL [facility] Basophils/100 WBC (Bld) 0.7 % [facility] Eosinophils (Bld) [#/Vol] 0.08 10*3/uL [facility] Eosinophils/100 WBC (Bld) 1.2 % [facility] Erythrocyte distribution width (RBC) [Entitic vol] 14.2 % 11.6 - 14.8 % [facility] Hematocrit (Bld) [Volume fraction] 41.3 % 41 - 53 % [facility] Hemoglobin (Bld) [Mass/Vol] 13.2 g/dL Low 13.5 - 17.5 g/dL [facility] Immature granulocytes (Bld) [#/Vol] 0.06 10*3/uL [facility] Immature granulocytes/100 WBC (Bld) 0.90 % [facility] Comment on above: The IG parameter is the percentage of metamyelocytes, myelocytes, and promyelocytes. Interpretation and review of laboratory results Abnormal [facility] Lymphocytes (Bld) [#/Vol] 1.76 10*3/uL [facility] Lymphocytes/100 WBC (Bld) 26.2 % [facility] MCH (RBC) [Entitic mass] 32.3 pg 26 - 34 pg [facility] MCHC (RBC) [Mass/Vol] 32.0 g/dL 31 - 37 g/dL [facility] MCV (RBC) [Entitic vol] 101.0 fL High 80 - 100 fL [facility] Monocytes (Bld) [#/Vol] 0.65 10*3/uL [facility] Monocytes/100 WBC (Bld) 9.7 % [facility] Neutrophils (Bld) [#/Vol] 4.12 10*3/uL [facility] Neutrophils/100 WBC (Bld) 61.3 % [facility] Nucleated RBC (Bld) [#/Vol] 0.00 10*3/uL [facility] Nucleated RBC/100 WBC (Bld) [Ratio] 0.0 % [facility] Platelet mean volume (Bld) [Entitic vol] 9.6 fL 9 - 15.5 fL [facility] Platelets (Bld) [#/Vol] 355 10*3/uL [facility] RBC (Bld) [#/Vol] 4.09 10*6/uL Low [facility] WBC (Bld) [#/Vol] 6.72 10*3/uL [facility] Magnesium Levelon 03-01-2019 Magnesium [Mass/Vol] 2.5 mg/dL High 1.6 - 2 .4 mg/dL [facility] Otheron 03-01-2019 Interpretation and review of laboratory results Abnormal [facility] Phosphoruson 03-01-2019 Interpretation and review of laboratory results Normal [facility] Phosphate [Mass/Vol] 4.2 mg/dL 2.7 - 4 .5 mg/dL [facility] Basic Metabolic Panelon 02-13 Anion gap [Moles/Vol] 8 mmol/L Low 10 - 20 mmol/L [facility] Calcium [Mass/Vol] 9.2 mg/dL 8.4 - 10. 2 mg/dL [facility] Chloride [Moles/Vol] 99 mmol/L 98 - 10 8 mmol/L [facility] Creatinine [Mass/Vol] 1.54 mg/dL High 0.5 - 1.3 mg/dL [facility] GFR/1.73 sq M predicted among non-blacks MDRD (S/P/Bld) [Vol rate/Area] The eGFR should be used for monitoring renal function only and not for medication dosing. [facility] GFR/1.73 sq M.predicted CKD-EPI (S/P/Bld) [Vol rate/Area] 61 >=60 mL/min/1.73 m2 [facility] Glucose [Mass/Vol] 95 mg/dL 65 - 99 mg/dL [facility] [Moles/Vol] 38 mmol/L High 21 - 32 mmol/L [facility] Potassium [Moles/Vol] 4.1 mmol/L 3.5 - 5.1 mmol/L [facility] Sodium [Moles/Vol] 141 mmol/L 135 - 145 mmol/L [facility] Urea nitrogen [Mass/Vol] 27 mg/dL High 8 - 25 mg/dL [facility] Urea nitrogen/Creatinine [Mass ratio] 17.5 mg/mg [facility] CBC WITH AUTO DIFFERENTIALon 02-28-2019 Basophils (Bld) [#/Vol] 0.06 10*3/uL [facility] Basophils/100 WBC (Bld) 1.0 % [facility] Eosinophils (Bld) [#/Vol] 0.07 10*3/uL [facility] Eosinophils/100 WBC (Bld) 1.2 % [facility] Erythrocyte distribution width (RBC) [Entitic vol] 14.5 % 11.6 - 14.8 % [facility] Hematocrit (Bld) [Volume fraction] 41.4 % 41 - 53 % [facility] Hemoglobin (Bld) [Mass/Vol] 13.1 g/dL Low 13.5 - 17.5 g/dL [facility] Immature granulocytes (Bld) [#/Vol] 0.07 10*3/uL [facility] Immature granulocytes/100 WBC (Bld) 1.20 % [facility] Comment on above: The IG parameter is the percentage of metamyelocytes, myelocytes, and promyelocytes. Lymphocytes (Bld) [#/Vol] 2.12 10*3/uL [facility] Lymphocytes/100 WBC (Bld) 35.6 % [facility] MCH (RBC) [Entitic mass] 32.4 pg 26 - 34 pg [facility] MCHC (RBC) [Mass/Vol] 31.6 g/dL 31 - 37 g/dL [facility] MCV (RBC) [Entitic vol] 102.5 fL High 80 - 100 fL [facility] Monocytes (Bld) [#/Vol] 0.40 10*3/uL [facility] Monocytes/100 WBC (Bld) 6.7 % [facility] Neutrophils (Bld) [#/Vol] 3.23 10*3/uL [facility] Neutrophils/100 WBC (Bld) 54.3 % [facility] Nucleated RBC (Bld) [#/Vol] 0.00 10*3/uL [facility] Nucleated RBC/100 WBC (Bld) [Ratio] 0.0 % [facility] Platelet mean volume (Bld) [Entitic vol] 9.6 fL 9 - 15.5 fL [facility] Platelets (Bld) [#/Vol] 383 10*3/uL [facility] RBC (Bld) [#/Vol] 4.04 10*6/uL Low [facility] WBC (Bld) [#/Vol] 6.20 10*3/uL [facility] Magnesium Levelon 02-28-2019 Magnesium [Mass/Vol] 2.6 mg/dL High 1.6 - 2 .4 mg/dL [facility] Otheron 02-28-2019 Interpretation and review of laboratory results Abnormal [facility] Phosphoruson 02-28-2019 Phosphate [Mass/Vol] 4.7 mg/dL High 2.7 - 4 .5 mg/dL [facility] Basic Metabolic Panelon 02-13 Anion gap [Moles/Vol] 7 mmol/L Low 10 - 20 mmol/L [facility] Calcium [Mass/Vol] 9.2 mg/dL 8.4 - 10. 2 mg/dL [facility] Chloride [Moles/Vol] 101 mmol/L 98 - 10 8 mmol/L [facility] Creatinine [Mass/Vol] 1.54 mg/dL High 0.5 - 1.3 mg/dL [facility] GFR/1.73 sq M predicted among non-blacks MDRD (S/P/Bld) [Vol rate/Area] The eGFR should be used for monitoring renal function only and not for medication dosing. [facility] GFR/1.73 sq M.predicted CKD-EPI (S/P/Bld) [Vol rate/Area] 61 >=60 mL/min/1.73 m2 [facility] Glucose [Mass/Vol] 104 mg/dL High 65 - 99 mg/dL [facility] HCO3 [Moles/Vol] 40 mmol/L High 21 - 32 mmol/L [facility] Interpretation and review of laboratory results Abnormal [facility] Potassium [Moles/Vol] 4.0 mmol/L 3.5 - 5.1 mmol/L [facility] Sodium [Moles/Vol] 144 mmol/L 135 - 145 mmol/L [facility] Urea nitrogen [Mass/Vol] 24 mg/dL 8 - 25 mg/dL [facility] Urea nitrogen/Creatinine [Mass ratio] 15.6 mg/mg [facility] NT Pro BNPon 02-26-2019 Interpretation and review of laboratory results Normal [facility] Natriuretic peptide.B prohormone N-Terminal [Mass/Vol] 67 pg/mL 0 - 300 pg/mL [facility] Priga Study Cut-offs Rule In: < /= 50 Years >450 pg/mL 51 Years - 75 Years >900 pg/mL 76 Years - 99 Years >1800 pg/mL Rule Out: All patients <300 pg/mL [facility] ECHOCARDIOGRAM 2D COMPLETEon 02-25-2019 Interface, Rad In [facility] Xper Echopacs - 02/25/2019 1:[address] [address] [place] [address] ----- ECHOCARDIOGRAPHY REPORT - [facility] ----- Name: FAHAD BERNABE Age: 28 years Date: 02/25/2019 Hospital #: [id number] : 1990 Room: [address] [place] [address] #: [id number] Sex: M Tech: Gary Calvillo Ordering Physician: [id number] HOLDEN HINTON Height: 57.00 in Sys BP: 124 MARLENE cc: , Weight: 264.00 Nidia BP: 79 Reading Physician: [id number] Kate Marrero MD/ Rhythm: Electronically Signed by: [id number] Kate Marrero MD BSA: 2.02 m on: [...] LA Index (BP) 29.8 ml/m TAPSE LAESV CONTAINER REPAIRER NOTES: Definity (if used): 1ml Final IMPRESSION: Poor quality, apical views borderline nondiagnostic. Definity given [address] [address] [place] [address] ---- ECHOCARDIOGRAPHY REPORT - [facility] ---- Name: FAHAD BERNABE Age: 28 years Date: 02/25/2019 [facility] #: [id number] : 1990 Room: [address] [place] [address] #: [id number] Sex: M Tech: Gary Shaw Rajinder Ordering Physician: [id number] HOLDEN HINTON Height: 57.00 in Sys BP: 124 MARLENE cc: , Weight: 264.00 Nidia BP: 79 Reading Physician: [id number] Marrero MD/ Rhythm: Electronically Signed by: Basilia [...] LA Index (BP) 29.8 ml/m TAPSE LAESV CONTAINER REPAIRER NOTES: Definity (if used): 1ml Final [facility] Poor quality, apical views borderline nondiagnostic. Definity given [facility] [place] Levelon 02-25-2019 Interpretation and review of laboratory results Abnormal [facility] [place] [Moles/Vol] 0.5 mmol/L Low 0.6 - 1. 2 mmol/L [facility] POC ARTERIAL BLOOD GAS PANEL -[facility] 02-25-2019 Base excess Calc (Bld) [Moles/Vol] 12.9 mmol/L High [facility] Breath rate setting Ventilator synchronized intermittent mandatory [facility] CO2 (Bld) [Partial pressure] 71.3 mm[Hg] High [facility] HCO3 (Bld) [Moles/Vol] 41.1 mmol/L High 22 - 26 mmol /L [facility] Hematocrit (BldA) [Volume fraction] 37.2 % Low 41 - 53 % [facility] Hemoglobin (Bld) [Mass/Vol] 12.1 g/dL Low 13.5 - 18 g/dL [facility] Inhaled oxygen concentration 0 % [facility] Inhaled oxygen flow rate 4 L/min [facility] Interpretation and review of laboratory results Abnormal [facility] Oxygen (Bld) [Partial pressure] 94 mm[Hg] [facility] pH (Bld) 7.37 [pH] [facility] SaO2% (BldA) [Mass fraction] 97.2 % 92 - 99 % [facility] Specimen source Nom (Unsp spec) Radial, left [facility] Tidal volume setting Ventilator 0 [facility] Base excess Calc (Bld) [Moles/Vol] 9.5 mmol/L High [facility] Breath rate setting Ventilator synchronized intermittent mandatory [facility] CO2 (Bld) [Partial pressure] 61.8 mm[Hg] High [facility] HCO3 (Bld) [Moles/Vol] 36.7 mmol/L High 22 - 26 mmol /L [facility] Hematocrit (BldA) [Volume fraction] 37.1 % Low 41 - 53 % [facility] Hemoglobin (Bld) [Mass/Vol] 12.1 g/dL Low 13.5 - 18 g/dL [facility] Inhaled oxygen concentration 0 % [facility] Inhaled oxygen flow rate 2 L/min [facility] Interpretation and review of laboratory results Abnormal [facility] Oxygen (Bld) [Partial pressure] 73 mm[Hg] Low [facility] pH (Bld) 7.38 [pH] [facility] SaO2% (BldA) [Mass fraction] 95.2 % 92 - 99 % [facility] Specimen source Nom (Unsp spec) Radial, left [facility] Tidal volume setting Ventilator 0 [facility] XR MODIFIED BARIUM SWALLOWon 02-25-2019 Recommendation is diet per Speech Pathology. Modified barium swallow study as described above. Please see Speech Pathologist report for complete details. MWK/pji Workstation ID: [id number] [facility] EXAMINATION: XR MODIFIED BARIUM SWALLOW HISTORY: assess [...] 506. FINDINGS: The oral phase demonstrated slow ssosdrap-aw-vkyvoac or transit with posterior fall off into the pharynx with large volumes. The pharyngeal phase demonstrated no significant residue was seen following swallowing. There was some flash penetration seen with the thin liquid when a large volume was ingested. Aspiration was not seen during the examination. [facility] Interface, Rad In Fu[facility] Speechq - 02/25/2019 [...] 506. FINDINGS: The oral phase demonstrated slow qctvjxeg-fa-yqabbri or transit with posterior fall off into the [...] see Speech Pathologist report for complete details. KASSIEK/tania Workstation ID: [id number] [facility] CBC WITH AUTO DIFFERENTIALon 02-24-2019 Basophils (Bld) [#/Vol] 0.02 10*3/uL [facility] Basophils/100 WBC (Bld) 0.3 % [facility] Eosinophils (Bld) [#/Vol] 0.04 10*3/uL [facility] Eosinophils/100 WBC (Bld) 0.7 % [facility] Erythrocyte distribution width (RBC) [Entitic vol] 14.7 % 11.6 - 14.8 % [facility] Hematocrit (Bld) [Volume fraction] 38.2 % Low 41 - 53 % [facility] Hemoglobin (Bld) [Mass/Vol] 11.8 g/dL Low 13.5 - 17.5 g/dL [facility] Immature granulocytes (Bld) [#/Vol] 0.05 10*3/uL [facility] Immature granulocytes/100 WBC (Bld) 0.80 % [facility] Comment on above: The IG parameter is the percentage of metamyelocytes, myelocytes, and promyelocytes. Interpretation and review of laboratory results Abnormal [facility] Lymphocytes (Bld) [#/Vol] 1.37 10*3/uL [facility] Lymphocytes/100 WBC (Bld) 23.2 % [facility] MCH (RBC) [Entitic mass] 32.2 pg 26 - 34 pg [facility] MCHC (RBC) [Mass/Vol] 30.9 g/dL Low 31 - 37 g/dL [facility] MCV (RBC) [Entitic vol] 104.1 fL High 80 - 100 fL [facility] Monocytes (Bld) [#/Vol] 0.55 10*3/uL [facility] Monocytes/100 WBC (Bld) 9.3 % [facility] Neutrophils (Bld) [#/Vol] 3.87 10*3/uL [facility] Neutrophils/100 WBC (Bld) 65.7 % [facility] Nucleated RBC (Bld) [#/Vol] 0.00 10*3/uL [facility] Nucleated RBC/100 WBC (Bld) [Ratio] 0.0 % [facility] Platelet mean volume (Bld) [Entitic vol] 9.4 fL 9 - 15.5 fL [facility] Platelets (Bld) [#/Vol] 233 10*3/uL [facility] RBC (Bld) [#/Vol] 3.67 10*6/uL Low [facility] WBC (Bld) [#/Vol] 5.90 10*3/uL [facility] Comprehensive Metabolic Pane rachel 02-24-2019 Albumin [Mass/Vol] 2.8 g/dL Low 3.2 - 5.2 g/dL [facility] ALP [Catalytic activity/Vol] 80 U/L 40 - 140 U/L [facility] ALT [Catalytic activity/Vol] 20 U/L 14 - 65 U/L [facility] Anion gap [Moles/Vol] 7 mmol/L Low 10 - 20 mmol/L [facility] AST [Catalytic activity/Vol] 12 U/L 0 - 45 U/L [facility] Bilirubin [Mass/Vol] 0.2 mg/dL 0 - 1.3 mg/dL [facility] Calcium [Mass/Vol] 8.8 mg/dL 8.4 - 10. 2 mg/dL [facility] Chloride [Moles/Vol] 106 mmol/L 98 - 10 8 mmol/L [facility] Creatinine [Mass/Vol] 1.26 mg/dL 0.5 - 1.3 mg/dL [facility] GFR/1.73 sq M predicted among non-blacks MDRD (S/P/Bld) [Vol rate/Area] The eGFR should be used for monitoring renal function only and not for medication dosing. [facility] GFR/1.73 sq M.predicted CKD-EPI (S/P/Bld) [Vol rate/Area] 78 >=60 mL/min/1.73 m2 [facility] Glucose [Mass/Vol] 99 mg/dL 65 - 99 mg/dL [facility] HCO3 [Moles/Vol] 34 mmol/L High 21 - 32 mmol/L [facility] Interpretation and review of laboratory results Abnormal [facility] Potassium [Moles/Vol] 4.3 mmol/L 3.5 - 5.1 mmol/L [facility] Protein [Mass/Vol] 7.8 g/dL 6 - 8 g/dL [facility] Sodium [Moles/Vol] 143 mmol/L 135 - 145 mmol/L [facility] Urea nitrogen [Mass/Vol] 12 mg/dL 8 - 25 mg/dL [facility] Urea nitrogen/Creatinine [Mass ratio] 9.5 mg/mg Low [facility] Hemoglobin A1con 02-24-2019 Average glucose Estimated from glycated hemoglobin mass conc (Bld) 117 mg/dL High 68 - 114 mg/dL [facility] HbA1c (Bld) [Mass fraction] 5.7 % High 4 - 5.6 % [facility] Interpretation and review of laboratory results Abnormal [facility] Normal: 4.0% - 5.6% Increased risk for diabetes: 5.7% - 6.4% Diabetes: >= 6.5% Pediatrics: No established reference range Estimated average glucose: 68-114 mg/dL [facility] INFLUENZA A,B RAPID MOLECULA Jesus 02-24-2019 FLUAV RNA EDER+probe Ql (Unsp spec) Not Detected Not Detected [facility] FLUBV RNA EDER+probe Ql (Unsp spec) Not Detected Not Detected [facility] Interpretation and review of laboratory results Normal [facility] Test Method: Nucleic Acid Amplification [facility] LEGIONELLA ANTIGEN, URINEon 02-24-2019 L. pneumophila Ag Ql (U) Negative Negative for Legionella antigen [facility] Comment on above: COMMENT: Results may be affected if patient is on diuretics. INTERPRETATION OF RESULTS: Test detects Legionella pneumophilia serogroup 1 antigens in urine. Legionnaires disease cannot be ruled out since other serogroups and species may also cause disease. Magnesiumon 02-24-2019 Magnesium [Mass/Vol] 2.2 mg/dL 1.6 - 2 .4 mg/dL [facility] Otheron 02-24-2019 Interpretation and review of laboratory results Normal [facility] Interpretation and review of laboratory results Normal [facility] Phosphoruson 02-24-2019 Phosphate [Mass/Vol] 4.1 mg/dL 2.7 - 4 .5 mg/dL [facility] S.PNEUMONIAE URINE ANTIGENon 02-24-2019 S. pneumoniae Ag Ql (U) Negative Pres umptive Negative for Pneumococcal pneumoniae [facility] Comment on above: A negative result jimenes ggests no current or recent pneumococcal infection. A negative result does not rule out Streptococcus pneumoniae infection since the antigen present in the sample may be below the detection limit of the test. TSHon 02-24-2019 TSH Qn 2.18 m[IU]/L [facility] Valproic Acid Levelon 2019 Interpretation and review of laboratory results Abnormal [facility] Valproate [Mass/Vol] 47 ug/mL Low [facility] Alcohol, Medicalon 0 Ethanol [Mass/Vol] mg/dL <10.00 mg/dL [facility] Comment on above: Alcohol cutoff: <10. 00 mg/dL = None Detected Interpretation and review of laboratory results Normal [facility] Ammoniaon 02-23-2019 Ammonia (P) [Mass/Vol] 43 ug/dL [facility] Interpretation and review of laboratory results Normal [facility] BMPon 02-23-2019 Anion gap [Moles/Vol] 10 mmol/L 10 - 20 mmol/L [facility] Calcium [Mass/Vol] 8.3 mg/dL Low 8.4 - 10. 2 mg/dL [facility] Chloride [Moles/Vol] 108 mmol/L 98 - 10 8 mmol/L [facility] Creatinine [Mass/Vol] 1.20 mg/dL 0.5 - 1.3 mg/dL [facility] GFR/1.73 sq M predicted among non-blacks MDRD (S/P/Bld) [Vol rate/Area] The eGFR should be used for monitoring renal function only and not for medication dosing. [facility] GFR/1.73 sq M.predicted CKD-EPI (S/P/Bld) [Vol rate/Area] 83 >=60 mL/min/1.73 m2 [facility] Glucose [Mass/Vol] 104 mg/dL High 65 - 99 mg/dL [facility] HCO3 [Moles/Vol] 30 mmol/L 21 - 32 mmol/L [facility] Potassium [Moles/Vol] 4.8 mmol/L 3.5 - 5.1 mmol/L [facility] Sodium [Moles/Vol] 143 mmol/L 135 - 145 mmol/L [facility] Urea nitrogen [Mass/Vol] 15 mg/dL 8 - 25 mg/dL [facility] Urea nitrogen/Creatinine [Mass ratio] 12.5 mg/mg [facility] CBC WITH AUTO DIFFERENTIALon 02-23-2019 Basophils (Bld) [#/Vol] 0.03 10*3/uL [facility] Basophils/100 WBC (Bld) 0.3 % [facility] Eosinophils (Bld) [#/Vol] 0.04 10*3/uL [facility] Eosinophils/100 WBC (Bld) 0.4 % [facility] Erythrocyte distribution width (RBC) [Entitic vol] 14.4 % 11.6 - 14.8 % [facility] Hematocrit (Bld) [Volume fraction] 35.1 % Low 41 - 53 % [facility] Hemoglobin (Bld) [Mass/Vol] 10.9 g/dL Low 13.5 - 17.5 g/dL [facility] Immature granulocytes (Bld) [#/Vol] 0.02 10*3/uL [facility] Immature granulocytes/100 WBC (Bld) 0.20 % [facility] Comment on above: The IG parameter is the percentage of metamyelocytes, myelocytes, and promyelocytes. Interpretation and review of laboratory results Abnormal [facility] Lymphocytes (Bld) [#/Vol] 1.22 10*3/uL [facility] Lymphocytes/100 WBC (Bld) 11.1 % [facility] MCH (RBC) [Entitic mass] 32.3 pg 26 - 34 pg [facility] MCHC (RBC) [Mass/Vol] 31.1 g/dL 31 - 37 g/dL [facility] MCV (RBC) [Entitic vol] 104.2 fL High 80 - 100 fL [facility] Monocytes (Bld) [#/Vol] 0.89 10*3/uL [facility] Monocytes/100 WBC (Bld) 8.1 % [facility] Neutrophils (Bld) [#/Vol] 8.75 10*3/uL High [facility] Neutrophils/100 WBC (Bld) 79.9 % [facility] Platelet mean volume (Bld) [Entitic vol] 9.0 fL 9 - 15.5 fL [facility] Platelets (Bld) [#/Vol] 241 10*3/uL [facility] RBC (Bld) [#/Vol] 3.37 10*6/uL Low [facility] WBC (Bld) [#/Vol] 10.95 10*3/uL [facility] CT HEAD OR BRAIN WITHOUT CON TRASTon 02-23-2019 EXAMINATION: CT HEAD OR BRAIN WITHOUT CONTRAST 02/23/2019 COMPARISON: None. HISTORY: Injury/Trauma or Illness?:Illness/Ot her How long have you had these symptoms (acute/chronic)?:[place] Altered mental status Pt having trouble staying [...] cells are clear. No acute osseous abnormality. [facility] Interface, Rad In Joeli Speechq - 02/23/2019 3:59 PM EST EXAMINATION: CT HEAD OR BRAIN WITHOUT CONTRAST 02/23/2019 COMPARISON: None. HISTORY: Injury/Trauma or Illness?:Illness/Ot her How long have you had these symptoms (acute/chronic)?:[place] Altered mental status Pt having trouble staying [...] medication. Correlate clinically. GJT/lab Workstation ID: [id number] [facility] 1. No acute intracranial abnormality identified. 2. Mild cerebral and cerebellar atrophy greater than typically seen for patient's age. This may be on the basis of chronic use of antiseizure medication. Correlate clinically. GJT/lab Workstation ID: [id number] [facility] DRUGS OF ABUSE SCREEN, URINE on 02-23-2019 Amphetamines Ql (U) None Detected None Detected [facility] Comment on above: Urine Amphetamine Cu toff: < 1000 ng/mL = None Detected Barbiturates Screen Ql (U) None Detected None Detected [facility] Comment on above: Urine Barbiturates C utoff: < 200 ng/mL = None Detected Benzodiazepines Ql (U) None Detected None Detec shayy [facility] Comment on above: Urine Benzodiazepine Cutoff: < 200 ng/mL = None Detected Cannabinoids Screen Ql (U) None Detected None Detected [facility] Comment on above: Urine Cannabinoids C utoff: < 50 ng/mL = None Detected Cocaine Ql (U) None Detected None Detected [facility] Comment on above: Urine Cocaine Cutoff : < 300 ng/mL = None Detected Interpretation and review of laboratory results Normal [facility] Methadone Screen Ql (U) None Detected None Dete cted [facility] Comment on above: Urine Methadone Cuto ff: < 300 ng/mL = None Detected Opiates Screen Ql (U) None Detected None Detect ed [facility] Comment on above: Urine Opiates Cutoff : < 300 ng/mL = None Detected Oxycodone Ql (U) None Detected None Detected [facility] Comment on above: Urine Oxycodone Cuto ff: < 100 ng/mL = None Detected Screen results should be used for treatment purposes only. [facility] ECG 12-LEADon 02-23-2019 Atrial Rate 80 BPM [facility] P [place] 34 degrees [facility] P-R Interval 194 ms [facility] Q-T Interval 400 ms [facility] QRS Duration 122 ms [facility] QTC Calculation (Bezet) 461 ms [facility] [place] 43 degrees [facility] T [place] 62 degrees [facility] Ventricular Rate 80 BPM [facility] [place] ECG Cart Interpretation see physician note for interpretation. Normal sinus rhythm Right bundle branch block Cannot rule out Inferior infarct , age undetermined Abnormal ECG Confirmed by Agata Johnston ([id number]) on 02/23/2019 3:42:27 PM [facility] Hepatic Function Panel (LFT) on 02-23-2019 Albumin [Mass/Vol] 2.6 g/dL Low 3.2 - 5.2 g/dL [facility] ALP [Catalytic activity/Vol] 73 U/L 40 - 140 U/L [facility] ALT [Catalytic activity/Vol] 21 U/L 14 - 65 U/L [facility] AST [Catalytic activity/Vol] 18 U/L 0 - 45 U/L [facility] Bilirubin [Mass/Vol] 0.1 mg/dL 0 - 1.3 mg/dL [facility] Bilirubin.conjugated [Mass/Vol] mg/dL 0 - 0.4 mg/dL [facility] Protein [Mass/Vol] 7.4 g/dL 6 - 8 g/dL [facility] Lactic Acid, Plasmaon 2019 Interpretation and review of laboratory results Normal [facility] Lactate [Moles/Vol] 0.7 mmol/L 0.6 - 2 mmol/L [facility] Lipaseon 02-23-2019 Lipase [Catalytic activity/Vol] 129 U/L 73 - 393 U/L [facility] NT Pro BNPon 02-23-2019 Interpretation and review of laboratory results Normal [facility] Natriuretic peptide.B prohormone N-Terminal [Mass/Vol] 252 pg/mL 0 - 300 pg/mL [facility] Pride Study Cut-offs Rule In: < /= 50 Years >450 pg/mL 51 Years - 75 Years >900 pg/mL 76 Years - 99 Years >1800 pg/mL Rule Out: All patients <300 pg/mL [facility] Otheron 02-23-2019 Interpretation and review of laboratory results Abnormal [facility] Interpretation and review of laboratory results Normal [facility] Base excess Calc (Bld) [Moles/Vol] 5.8 mmol/L High [facility] Breath rate setting Ventilator synchronized intermittent mandatory 0 [facility] CO2 (Bld) [Partial pressure] 56.6 mm[Hg] High [facility] HCO3 (Bld) [Moles/Vol] 32.5 mmol/L High 22 - 26 mmol /L [facility] Hematocrit (BldA) [Volume fraction] 35.0 % Low 41 - 53 % [facility] Hemoglobin (Bld) [Mass/Vol] 11.4 g/dL Low 13.5 - 18 g/dL [facility] Inhaled oxygen concentration 0 % [facility] Interpretation and review of laboratory results Abnormal [facility] Oxygen (Bld) [Partial pressure] 82 mm[Hg] [facility] pH (Bld) 7.37 [pH] [facility] SaO2% (BldA) [Mass fraction] 96.7 % 92 - 99 % [facility] Tidal volume setting Ventilator 0 [facility] POC Arterial Blood Gaseson 0 02-23-2019 Base Excess, Arterial 5 High [facility] CO2 (Bld) [Partial pressure] 64.2 mm[Hg] High [facility] HCO3 (Bld) [Moles/Vol] 33.1 mmol/L High 22 - 26 mmol /L [facility] Hematocrit (Bld) [Volume fraction] 34 % Low 41 - 53 % [facility] Hemoglobin (Bld) [Mass/Vol] 11.6 g/dL Low 13.5 - 17.5 g/dL [facility] Interpretation and review of laboratory results Abnormal [facility] Oxygen (Bld) [Partial pressure] 76 mm[Hg] Low [facility] pH (Bld) 7.32 [pH] Low [facility] SaO2% (BldA) [Mass fraction] 93.0 % 92 - 99 % [facility] POC Glucoseon 02-23-2019 Glucose [Mass/Vol] 100 mg/dL Abnormal 65 - 99 mg/dL [facility] Interpretation and review of laboratory results Abnormal [facility] Glucose [Mass/Vol] 100 mg/dL High 65 - 99 mg/dL [facility] Interpretation and review of laboratory results Abnormal [facility] PT/INRon 02-23-2019 INR Coag (PPP) [Relative time] 1.1 {INR} [facility] Interpretation and review of laboratory results Normal [facility] PT Coag (PPP) [Time] 13.8 s [facility] During the induction phase of oral anticoagulation, the INR may not reflect the anticoagulation status of the patient. Therapeutic ranges for INR's are: Most clinical situations: INR 2.0-3.0 Mechanical Prosthetic Valve: INR 2.5-3.5 Critical: INR >5.0 [facility] TSH with Reflex Free T4on TSH Qn 1.01 m[IU]/L [facility] URINALYSISon 02-23-2019 Bacteria Auto Ql (U) Rare Abnormal None Seen /hpf [facility] Bilirubin Ql (U) Negative Negative [facility] [place] Clarity Refractometry automated (U) Clear Clear [facility] Color (U) Yellow Colorless, Yellow [facility] Epithelial cells.squamous Auto (Urine sed) [#/Area] 1 [facility] Glucose Auto test strip (U) [Mass/Vol] Negative Negative mg/dL [facility] Hemoglobin Auto test strip Ql (U) Negative Negative [facility] Interpretation and review of laboratory results Abnormal [facility] Ketones (U) [Mass/Vol] Negative Negative mg/d L [facility] Leukocyte esterase Auto test strip Ql (U) Negative Negative [facility] Nitrite Auto test strip Ql (U) Negative Negative [facility] pH (U) 6.0 [pH] [facility] Protein (U) [Mass/Vol] Negative Negative mg/d L [facility] Specific gravity (U) [Rel density] 1.015 [facility] Urobilinogen (U) [Mass/Vol] <2.0 <2.0 mg/dL [facility] WBC Auto (Urine sed) [#/Area] 1 [facility] Microscopic examination is performed on all urinalysis samples and only positive findings are reported. The test for blood on the chemical analytic portion of urinalysis may also be positive due to hemoglobinuria and myoglobinuria and if red blood cells are present they are quantified by microscopic examination. [facility] Valproic Acid Levelon 2019 Interpretation and review of laboratory results Normal [facility] Valproate [Mass/Vol] 72 ug/mL [facility] XR Chest 1 Viewon 02-23-2019 EXAMINATION: 1 VIEW XR CHEST PA/AP, 02/23/2019 COMPARISON: Chest, 01/06/2018 HISTORY: Injury/Trauma or Illness?:Illness/Ot her How long have you had these symptoms (acute/chronic)?:[place] Altered mental status [facility] 1. Mild diffuse interstitial edema and/or mild inflammatory infectious pneumonitis. Correlate clinically. 2. Mild prominent cardiac silhouette slightly accentuated due to patient rotation to the left. 3. No acute osseous abnormality. [employer] Workstation ID: [id number] [facility] Interface, Rad In [facility] Speechq - 02/23/2019 3:59 PM EST EXAMINATION: 1 VIEW XR CHEST PA/AP, 02/23/2019 COMPARISON: Chest, 01/06/2018 HISTORY: Injury/Trauma or Illness?:Illness/Ot her How long have you had these symptoms (acute/chronic)?:[place] Altered mental status IMPRESSION: 1. Mild diffuse interstitial edema and/or mild inflammatory infectious pneumonitis. Correlate clinically. 2. Mild prominent cardiac silhouette slightly accentuated due to patient rotation to the left. 3. No acute osseous abnormality. [employer] Workstation ID: [id number] [facility] CBC, EDIF, PLATELETon 2017 ABSOLUTE BASOPHIL COUNT 0.0 Invalid Interpretation Code X10 [address] Comment on above: Testing performed at [place], [place] [address] Basophils/100 WBC Auto (Bld) 0.1 % Invalid Interpretation Code 0 - 2 % [address] Differential cell count method Nom (Bld) AUTO DIFF Invalid Interpretation Code % [address] Eosinophils Auto #/vol (Bld) 0.00 10*3/uL Invalid Interpretation Code X10 [address] Eosinophils/100 WBC Auto (Bld) 0.0 % Invalid Interpretation Code 0 - 11 % [address] Erythrocyte distribution width Ratio (RBC) 15.3 % High 11.5 - 14.5 % [address] Hematocrit Auto Volume Fraction (Bld) 35.6 % Low 42 - 52 % [address] Hemoglobin mass conc (Bld) 11.7 g/dL Low [address] Lymphocytes Manual cnt #/vol (Bld) 1.50 Invalid Interpretation Code X10 [address] Lymphocytes/100 WBC Auto (Bld) 16.7 % Low 20 - 55 % [address] MCH Auto Entitic mass (RBC) 33.1 pg Invalid Interpretation Code 26 - [address] MCHC Auto mass conc (RBC) 32.8 g/dL Invalid Interpretation Code [address] MCV Auto Entitic volume (RBC) 101.2 fL High [address] Monocytes Manual cnt #/vol (Bld) 0.5 Invalid Interpretation Code X10 [address] Monocytes/100 WBC Auto (Bld) 5.2 % Invalid Interpretation Code 0 - 10 % [address] Neutrophils Auto #/vol (Bld) 7.0 10*3/uL Invalid Interpretation Code [address] Neutrophils/100 WBC Auto (Bld) 78.0 % High 37 - 75 % [address] Platelet mean volume Auto Entitic volume (Bld) 7.6 fL Invalid Interpretation Code [address] Platelets Auto #/vol (Bld) 213 10*3/uL Invalid Interpretation Code [address] RBC Auto #/vol (Bld) 3.52 10*6/uL Low [place] [address] WBC Auto #/vol (Bld) 9.0 10*3/uL Invalid Interpretation Code [facility] - [address] [facility] [address] CHEST WITHOUT CONTRASTon 01-08-2018 EXAM: CT CHEST WITHOUT CONTRAST CLINICAL STATEMENT: [...] 01-08-2018 Magnesium mass conc 2.4 mg/dL High [address] Comment on above: Testing performed at [facility], [place], [place] [address] Otheron 01-08-2018 Interpretation and review of laboratory results Abnormal Invalid Interpretation Code [address] RENAL FUNCTION PANELon 01-08 Albumin mass conc 3.5 G/dl Invalid Interpretation Code 3.5 - 5 G/dl [address] Calcium mass conc 8.8 mg/dL Invalid Interpretation Code [address] Chloride molar conc 113 mmol/L High [address] Comment on above: Please note: Triglyc eride levels of 600mg/dL or higher may positively bias chloride results by approximately 2.1 mmol CO2 molar conc 28 mmol/L Invalid Interpretation Code [address] Creatinine mass conc 1.0 mg/dL Invalid Interpretation Code [address] GFR/1.73 sq M predicted among blacks MDRD vol rate/area (S/P/Bld) mL/min/{1.73_m2} Invalid Interpretation Code ml/min/1.73sq. m [address] GFR/1.73 sq M predicted among non-blacks MDRD vol rate/area (S/P/Bld) Average GFR for 20-29 years old = 116. Invalid Interpretation Code [address] Comment on above: Chronic Kidney disea se, GFR = <60. Kidney failure, GFR = <15. The GFR estimate is not adjusted for extreme body surface area or acute process, nor has it been validated for women or ethnic groups other than and . Testing performed at [place], [place] [address] GFR/1.73 sq M predicted among non-blacks MDRD vol rate/area (S/P/Bld) mL/min/{1.73_m2} Invalid Interpretation Code ml/min/1.73sq. m [address] Glucose fasting mass conc 106 mg/dL [address] Comment on above: NORMAL <100 mg/dL TX EDIABETES 101-126 mg/dL DIABETES 126 mg/dL or higher Phosphate mass conc 3.0 mg/dL Invalid Interpretation Code [address] Potassium molar conc 4.4 mmol/L Invalid Interpretation Code [address] Sodium molar conc 145 mmol/L Invalid Interpretation Code [address] Urea nitrogen mass conc 11 mg/dL Invalid Interpretation Code [address] CBC, EDIF, PLATELETon 2017 ABSOLUTE BASOPHIL COUNT 0.0 Invalid Interpretation Code X10 [address] Comment on above: Testing performed at [place], [place] [address] Basophils/100 WBC Auto (Bld) 0.1 % Invalid Interpretation Code 0 - 2 % [address] Differential cell count method Nom (Bld) AUTO DIFF Invalid Interpretation Code % [address] Eosinophils Auto #/vol (Bld) 0.00 10*3/uL Invalid Interpretation Code X10 [address] Eosinophils/100 WBC Auto (Bld) 0.0 % Invalid Interpretation Code 0 - 11 % [address] Erythrocyte distribution width Ratio (RBC) 15.4 % High 11.5 - 14.5 % [address] Hematocrit Auto Volume Fraction (Bld) 35.0 % Low 42 - 52 % [address] Hemoglobin mass conc (Bld) 11.4 g/dL Low [address] Lymphocytes Manual cnt #/vol (Bld) 1.20 Invalid Interpretation Code X10 [address] Lymphocytes/100 WBC Auto (Bld) 9.7 % Low 20 - 55 % [address] MCH Auto Entitic mass (RBC) 32.9 pg Invalid Interpretation Code 26 - [address] MCHC Auto mass conc (RBC) 32.5 g/dL Invalid Interpretation Code [address] MCV Auto Entitic volume (RBC) 101.3 fL High [address] Monocytes Manual cnt #/vol (Bld) 0.6 Invalid Interpretation Code X10 [address] Monocytes/100 WBC Auto (Bld) 5.1 % Invalid Interpretation Code 0 - 10 % [address] Neutrophils Auto #/vol (Bld) 10.6 10*3/uL High [address] Neutrophils/100 WBC Auto (Bld) 85.1 % High 37 - 75 % [address] Platelet mean volume Auto Entitic volume (Bld) 7.4 fL Invalid Interpretation Code [address] Platelets Auto #/vol (Bld) 216 10*3/uL Invalid Interpretation Code [address] RBC Auto #/vol (Bld) 3.45 10*6/uL [address] WBC Auto #/vol (Bld) 12.5 10*3/uL [address] [facility] 12-15 L. pneumophila 1 Ag IA Ql (U) Negative Invalid Interpretation Code NEGATIVE [address] Comment on above: Testing performed at [place], [place] [address] MAGNESIUMon 01-07-2018 Magnesium mass conc 2.2 mg/dL Invalid Interpretation Code [address] Comment on above: Testing performed at [place] [id number] Otheron 01-07-2018 Interpretation and review of laboratory results Abnormal Invalid Interpretation Code [address] RENAL FUNCTION PANELon 01-07 Albumin mass conc 3.3 G/dl Low 3.5 - 5 G/dl [address] Calcium mass conc 8.3 mg/dL Low [address] Chloride molar conc 111 mmol/L High [address] Comment on above: Please note: Triglyc eride levels of 600mg/dL or higher may positively bias chloride results by approximately 2.1 mmol CO2 molar conc 27 mmol/L Invalid Interpretation Code [address] Creatinine mass conc 1.2 mg/dL Invalid Interpretation Code [address] GFR/1.73 sq M predicted among blacks MDRD vol rate/area (S/P/Bld) mL/min/{1.73_m2} Invalid Interpretation Code ml/min/1.73sq. m [address] GFR/1.73 sq M predicted among non-blacks MDRD vol rate/area (S/P/Bld) mL/min/{1.73_m2} Invalid Interpretation Code ml/min/1.73sq. m [address] GFR/1.73 sq M predicted among non-blacks MDRD vol rate/area (S/P/Bld) Average GFR for 20-29 years old = 116. Invalid Interpretation Code [address] Comment on above: Chronic Kidney disea se, GFR = <60. Kidney failure, GFR = <15. The GFR estimate is not adjusted for extreme body surface area or acute process, nor has it been validated for women or ethnic groups other than and . Testing performed at [place], [place] [address] Glucose fasting mass conc 109 mg/dL [address] Comment on above: NORMAL <100 mg/dL TX EDIABETES 101-126 mg/dL DIABETES 126 mg/dL or higher Phosphate mass conc 2.9 mg/dL Invalid Interpretation Code [address] Potassium molar conc 4.2 mmol/L Invalid Interpretation Code [address] Sodium molar conc 146 mmol/L High [address] Urea nitrogen mass conc 10 mg/dL Invalid Interpretation Code [address] STREP PNEUMONIAE ANTIGEN, UR INEon 01-07-2018 S. pneumoniae Ag Ql (U) Negative Invalid Interpretation Code NEGATIVE [address] Comment on above: Testing performed at [place], [place] [address] B-TYPE NATRIURETIC PEPTIDE ( BRAIN)on 01-06-2018 Natriuretic peptide B mass conc (Bld) 61 pg/mL Invalid Interpretation Code 0 - 100 pg/mL [address] Comment on above: Testing performed at [place], [place] [address] BASIC METABOLIC PANELon 12-15 Anion gap 3 molar conc 6 mmol/L Low [place] [address] Calcium mass conc 8.8 mg/dL Invalid Interpretation Code [address] Chloride molar conc 107 mmol/L Invalid Interpretation Code [address] Comment on above: Please note: Triglyc eride levels of 600mg/dL or higher may positively bias chloride results by approximately 2.1 mmol CO2 molar conc 30 mmol/L Invalid Interpretation Code [address] Creatinine mass conc 1.3 mg/dL High [address] GFR/1.73 sq M predicted among blacks MDRD vol rate/area (S/P/Bld) mL/min/{1.73_m2} Invalid Interpretation Code ml/min/1.73sq. m [address] GFR/1.73 sq M predicted among non-blacks MDRD vol rate/area (S/P/Bld) Average GFR for 20-29 years old = 116. Invalid Interpretation Code [address] Comment on above: Chronic Kidney disea se, GFR = <60. Kidney failure, GFR = <15. The GFR estimate is not adjusted for extreme body surface area or acute process, nor has it been validated for women or ethnic groups other than and . Testing performed at [place], [place] [address] GFR/1.73 sq M predicted among non-blacks MDRD vol rate/area (S/P/Bld) mL/min/{1.73_m2} Invalid Interpretation Code ml/min/1.73sq. m [address] Glucose fasting mass conc 121 mg/dL High [address] Comment on above: NORMAL <100 mg/dL TX EDIABETES 101-126 mg/dL DIABETES 126 mg/dL or higher Potassium molar conc 4.3 mmol/L Invalid Interpretation Code [address] Sodium molar conc 143 mmol/L Invalid Interpretation Code [address] Urea nitrogen mass conc 13 mg/dL Invalid Interpretation Code [address] C REACTIVE PROTEINon 018 CRP mass conc 200.1 mg/L High 0 - 10 MG/L [address] Comment on above: Testing performed at [place], [place] [address] CBC, EDIF, PLATELETon 2017 ABSOLUTE BASOPHIL COUNT 0.0 Invalid Interpretation Code X10 [address] Comment on above: Testing performed at [place], [place] [address] Basophils/100 WBC Auto (Bld) 0.3 % Invalid Interpretation Code 0 - 2 % [address] Differential cell count method Nom (Bld) AUTO DIFF Invalid Interpretation Code % [address] Eosinophils Auto #/vol (Bld) 0.00 10*3/uL Invalid Interpretation Code X10 [address] Eosinophils/100 WBC Auto (Bld) 0.0 % Invalid Interpretation Code 0 - 11 % [address] Erythrocyte distribution width Ratio (RBC) 15.3 % High 11.5 - 14.5 % [address] Hematocrit Auto Volume Fraction (Bld) 41.2 % Low 42 - 52 % [address] Hemoglobin mass conc (Bld) 13.5 g/dL Low [address] Lymphocytes Manual cnt #/vol (Bld) 1.00 Invalid Interpretation Code X10 [address] Lymphocytes/100 WBC Auto (Bld) 7.1 % Low 20 - 55 % [address] MCH Auto Entitic mass (RBC) 32.6 pg Invalid Interpretation Code 26 - [address] MCHC Auto mass conc (RBC) 32.7 g/dL Invalid Interpretation Code [address] MCV Auto Entitic volume (RBC) 99.7 fL Invalid Interpretation Code [address] Monocytes Manual cnt #/vol (Bld) 1.2 Invalid Interpretation Code X10 [address] Monocytes/100 WBC Auto (Bld) 8.5 % Invalid Interpretation Code 0 - 10 % [address] Neutrophils Auto #/vol (Bld) 11.5 10*3/uL High [address] Neutrophils/100 WBC Auto (Bld) 84.1 % High 37 - 75 % [address] Platelet mean volume Auto Entitic volume (Bld) 7.2 fL Low [address] Platelets Auto #/vol (Bld) 241 10*3/uL Invalid Interpretation Code [address] RBC Auto #/vol (Bld) 4.13 10*6/uL Invalid Interpretation Code [address] WBC Auto #/vol (Bld) 13.7 10*3/uL High [place] [address] INFLUENZA A AND B, PCRon FLUBV Ag IA Ql (Unsp spec) Negative Invalid Interpretation Code NEGATIVE [address] Comment on above: TESTING PERFORMED BY [facility] Testing performed at [place] [address] INFLUENZA A Negative Invalid Interpretation Code NEGATIVE [address] LACTATE, BLOODon 01-06-2018 Lactate molar conc 1.2 mmol/L Invalid Interpretation Code [address] Comment on above: Testing performed at [place] [address] LITHIUM LEVELon 01-06-2018 Interpretation and review of laboratory results Abnormal Invalid Interpretation Code [address] [place] molar conc 0.40 mmol/L Low [address] Comment on above: Testing performed at [place] [id number] Otheron 01-06-2018 Interpretation and review of laboratory results Abnormal Invalid Interpretation Code [address] Interpretation and review of laboratory results Abnormal Invalid Interpretation Code [address] RESPIRATORY CULTUREon 2017 Bacteria identified Cx Nom (Unsp spec) USUAL OROPHARYNGEAL MARICRUZ Invalid Interpretation Code [address] Comment on above: MODERATE GROWTH Test ing performed at [place] [address] Microscopic observation Gram stain Nom (Unsp spec) MODERATE Invalid Interpretation Code [address] Comment on above: WBC'S SEEN FEW SQUAM OUS EPITHELIAL CELLS MODERATE MIXED GRAM POSITIVE MARICRUZ NONE APPEAR PREDOMINANT SPECIMEN IS OF LEAST ACCEPTABLE QUALITY REPORT STATUS 01/08/2018 Invalid Interpretation Code [address] Comment on above: FINAL SPECIMEN DESCRIPTION SPUTUM Invalid Interpretation Code [address] SCREEN: MRSA ONLY, NARES (IS OLATION SCREEN)on 01-06-2018 MRSA isol Org specific cx Ql (Nose) Negative Invalid Interpretation Code [address] STAPHYOCOCCUS AUREUS BY PCR Negative Invalid Interpretation Code [address] Comment on above: TESTING PERFORMED BY PCR Testing performed at [place] [address] SEDIMENTATION RATE, AUTOMATE Don 01-06-2018 ESR Velocity (Bld) 31 mm/h High [address] Comment on above: Testing performed at [place] [id number] TROPONINon 01-06-2018 Troponin I.cardiac mass conc ng/mL Invalid Interpretation Code 0 - 0.08 ng/mL [address] Comment on above: Testing performed at [place] [id number] TSHon 01-06-2018 Thyrotropin Qn 0.994 m[IU]/L Invalid Interpretation Code [address] Comment on above: Testing performed at [place] [id number] XR CHEST AP PORTABLEon 01-06 EXAM: XR CHEST AP PORTABLE REASON FOR [...] Code RADIOLOGY XR CHEST PA AND LATERALon TWO-VIEW CHEST COMPARISON: Portable chest from 01/06/2018. [...] Time Vital Sign Value Performing Clinician Facility 05-27-2023 15:00-0400 Diastolic blood pressure 68 mm[Hg] Liban Otero MD Work Phone: [facility] 05-27-2023 15:00-0400 Heart rate 75 /min Liban Otero MD Work Phone: [facility] 05-27-2023 15:00-0400 SaO2% (BldA) [Mass fraction] 96 % Liban Otero MD Work Phone: [facility] 05-27-2023 15:00-0400 Systolic blood pressure 124 mm[Hg] Liban Otero MD Work Phone: [facility] 05-27-2023 14:49-0400 Respiratory rate 18 /min Liban Otero MD Work Phone: [facility] 05-27-2023 14:17-0400 Body height 144.8 cm Liban Otero MD Work Phone: [facility] [employer] 05-27-2023 14:16-0400 Body temperature 98.6 [degF] Liban Otero MD Work Phone: [facility] [employer] 11-03-2022 10:00-0400 Body height 157.48 cm Martha Yi Other [employer] Other 11-03-2022 10:00-0400 Body mass index (BMI) [Ratio] 29.08 kg/m2 Martha Yi Other [employer] Other 11-03-2022 10:00-0400 Body weight 72.12 kg Martha Yi Other [employer] Other 12-02-2021 12:30-0400 Body height 157.48 cm Thiago Chandler Other [employer] Other 12-02-2021 12:30-0400 Body mass index (BMI) [Ratio] 29.08 kg/m2 Thiago Chandler Other [employer] Other 12-02-2021 12:30-0400 Body temperature 97.1 [degF] Thiago Chandler Other [employer] Other 12-02-2021 12:30-0400 Body weight 72.12 kg Thiago Chandler Other [employer] Other 12-02-2021 12:30-0400 Diastolic blood pressure 78 mm[Hg] Thiago Chandler Other [employer] Other 12-02-2021 12:30-0400 SaO2% (BldA) [Mass fraction] 100 % Thiago Ramesh Other [employer] Other 12-02-2021 12:30-0400 Systolic blood pressure 114 mm[Hg] Thiago Chandler Other [employer] Other 11-04-2021 11:00-0400 Body height 157.48 cm Martha Yi Other [employer] Other 11-04-2021 11:00-0400 Body mass index (BMI) [Ratio] 29.28 kg/m2 Martha Yi Other [employer] Other 11-04-2021 11:00-0400 Body weight 72.62 kg Martha Yi Other [employer] Other 08-05-2021 14:00-0400 Body height 144.78 cm Thiago Chandler Other [employer] Other 08-05-2021 14:00-0400 Body mass index (BMI) [Ratio] 32.46 kg/m2 Thiago Ramesh Other [employer] Other 08-05-2021 14:00-0400 Body temperature 97 [degF] Thiago Ramesh Other [employer] Other 08-05-2021 14:00-0400 Body weight 68.04 kg Thiago Ramesh Other [employer] Other 08-05-2021 14:00-0400 Diastolic blood pressure 73 mm[Hg] Thiago Ramesh Other [employer] Other 08-05-2021 14:00-0400 SaO2% (BldA) [Mass fraction] 97 % Thiago Ramesh Other [employer] Other 08-05-2021 14:00-0400 Systolic blood pressure 110 mm[Hg] Thiago Ramesh Other [employer] Other 05-27-2021 09:30-0400 Body height 152.4 cm Franck Carballo MD Work Phone: [employer] 05-27-2021 09:30-0400 Body mass index (BMI) [Ratio] 30.47 kg/m2 Franck Carballo MD Work Phone: [facility] 05-27-2021 09:30-0400 Body weight 70.76 kg Franck Carballo MD Work Phone: [facility] 05-27-2021 09:30-0400 Diastolic blood pressure 69 mm[Hg] Franck Carballo MD Work Phone: [facility] 05-27-2021 09:30-0400 Heart rate 97 /min Franck Carballo MD Work Phone: [facility] 05-27-2021 09:30-0400 SaO2% (BldA) [Mass fraction] 91 % Franck Carballo MD Work Phone: [facility] 05-27-2021 09:30-0400 Systolic blood pressure 105 mm[Hg] Franck Carballo MD Work Phone: [facility] 03-01-2019 08:00-0500 Respiratory Rate 16 /min [facility] 03-01-2019 07:23-0500 BP Diastolic 69 mm[Hg] [facility] 03-01-2019 07:23-0500 BP Systolic 100 mm[Hg] [facility] 03-01-2019 07:23-0500 Pulse (Heart Rate) 91 /min [facility] 03-01-2019 07:23-0500 Pulse Oximetry 100 % [facility] 03-01-2019 06:00-0500 BMI (Body Mass Index) 44.56 kg/m2 [facility] 03-01-2019 06:00-0500 Body weight 93.4 kg [facility] Comment on above: standing weight 03-01-2019 04:01-0500 Body Temperature 98.8 [degF] [facility] 02-25-2019 14:40-0500 Respiratory rate 17 /min [facility] 02-25-2019 10:56-0500 Respiratory rate 0 /min [facility] 02-23-2019 21:56-0500 Respiratory rate 0 /min [facility] 02-23-2019 18:33-0500 BP Diastolic 78 mm[Hg] [facility] 02-23-2019 18:33-0500 BP Systolic 139 mm[Hg] Iftikhar Kemp [facility] 02-23-2019 18:33-0500 Pulse (Heart Rate) 78 /min Iftikhar Kemp [facility] 02-23-2019 18:33-0500 Pulse Oximetry 99 % Iftikhar Kemp [facility] 02-23-2019 18:33-0500 Respiratory Rate 16 /min Iftikhar Kemp [facility] 02-23-2019 13:38-0500 BMI (Body Mass Index) 43.28 kg/m2 Iftikhar Kemp [facility] 02-23-2019 13:38-0500 Body Temperature 97.39 [degF] Iftikhar Kemp [facility] 02-23-2019 13:38-0500 Body weight 90.72 kg Iftikhar Kemp [facility] 02-23-2019 13:38-0500 Height 144.8 cm [facility] [place] 01-08-2018 11:54-0500 Body Temperature 98.01 [degF] [facility] Work Phone: 01-08-2018 11:54-0500 BP Diastolic 48 mm[Hg] [facility] Work Phone: 01-08-2018 11:54-0500 BP Systolic 115 mm[Hg] [facility] Work Phone: 01-08-2018 11:54-0500 Pulse (Heart Rate) 75 /min [facility] Work Phone: 01-08-2018 11:54-0500 Pulse Oximetry 97 % [facility] Work Phone: 01-08-2018 11:54-0500 Respiratory Rate 18 /min [facility] Work Phone: 01-08-2018 03:51-0500 BMI (Body Mass Index) 45.89 kg/m2 [facility] Work Phone: 01-08-2018 03:51-0500 Weight 96.2 kg [facility] Work Phone: 01-06-2018 16:24-0500 Height 144.8 cm [facility] Work Phone: Encounters Encounter Date Encounter Type Care Provider Facility Start: 09-21-2023 End: 09-21-2023 ambulatory DO Iftikhar Kemp Work Phone: [facility] Work Phone: Start: 09-21-2023 End: 09-21-2023 Patient encounter procedure DO Iftikhar Kemp Work Phone: [facility] Work Phone: Start: 09-21-2023 End: 09-21-2023 Patient encounter procedure DO Iftikhar Kemp Work Phone: [facility] Start: 09-21-2023 End: 09-21-2023 ambulatory DO Iftikhar Kemp Work Phone: [facility] Work Phone: Start: 09-07-2023 End: 09-07-2023 ambulatory [facility] Work Phone: Start: 09-07-2023 End: 09-07-2023 Patient encounter procedure [facility] Work Phone: Start: 07-04-2023 End: 07-05-2023 ambulatory IFTIKHAR KEMP Facility:[facility] Start: 07-04-2023 End: 07-04-2023 Patient encounter procedure IFTIKHAR KEMP [facility] Start: 05-27-2023 End: 05-27-2023 Emergency department patient visit IFTIKHAR KEMP [facility] Start: 05-27-2023 End: 05-27-2023 Emergency department patient visit Liban Otero MD Work Phone: [facility] Start: 05-10-2023 End: 05-11-2023 ambulatory IFTIKHAR KEMP Facility:[facility] Start: 05-10-2023 End: 05-10-2023 Lab Drop off IFTIKHAR KEMP [facility] Start: 05-03-2023 End: 05-03-2023 ambulatory [facility] Work Phone: Start: 05-03-2023 End: 05-03-2023 Patient encounter procedure [facility] Work Phone: Start: 11-30-2022 End: 11-30-2022 Patient encounter procedure DO Iftikhar Kemp Work Phone: [facility]Sleep [facility] Work Phone: Start: 11-30-2022 End: 11-30-2022 ambulatory DO Iftikhar Kemp Work Phone: [facility] Work Phone: Start: 11-03-2022 End: 11-03-2022 ambulatory Martha Yi Other [employer] Other Start: 11-03-2022 Office outpatient vi sit 25 minutes Martha Yi [facility] Start: 05-25-2022 End: 05-25-2022 Patient encounter procedure IFTIKHAR KEMP [facility] Start: 05-17-2022 End: 05-18-[address] IFTIKHAR KEMP Facility: Start: 02-22-2022 [facility] encounter [facility] Start: 01-11-2022 End: 01-11-2022 ambulatory DO Iftikhar Kemp Work Phone: [facility] Work Phone: Start: 01-11-2022 End: 01-11-2022 Patient encounter procedure DO Iftikhar Kemp Work Phone: [facility] Start: 12-02-2021 Office outpatient vi sit 25 minutes Thiago Chandler [facility] Start: 12-02-2021 End: 12-02-2021 ambulatory DO Iftikhar Kemp Work Phone: [employer] Other Start: 12-02-2021 End: 12-02-2021 Patient encounter procedure DO Iftikhar Kemp Work Phone: [facility] Start: 11-04-2021 End: 11-04-2021 ambulatory Martha Yi Other [employer] Other Start: 11-04-2021 Office outpatient vi sit 25 minutes Martha Yi [facility] Start: 10-13-2021 End: 10-13-2021 Patient encounter procedure DO Iftikhar Kemp Work Phone: [facility] Start: 09-22-2021 ambulatory UNKNOWN PROVIDER Facili ty:[facility] Start: 09-22-2021 End: 09-22-2021 Patient encounter procedure Renetta Bautista DDS Work Phone: [facility] Start: 08-05-2021 End: 08-05-2021 ambulatory Thiago Chandler Other [employer] Other Start: 08-05-2021 Office outpatient vi sit 25 minutes Thiago Chandler [facility] Start: 08-05-2021 End: 08-05-2021 Patient encounter procedure DO Iftikhar Kemp Work Phone: [facility] Start: 07-14-2021 End: 07-15-[address] DOCTOR RUSSELL Facility: Start: 06-08-2021 End: 06-09-2021 ambulatory UNKNOWN PROVIDER Facility:[facility] Start: 06-08-2021 End: 06-09-2021 Patient encounter procedure Vivi Clemons [facility] Work Phone: [facility] Start: 06-03-2021 End: 06-03-2021 ambulatory FRANCK [facility] Start: 06-01-2021 End: 06-02-[address] IFTIKHAR KEMP Facility:[facility] Start: 05-27-2021 End: 05-27-2021 ambulatory FRANCK CARBALLO [facility] Start: 05-27-2021 End: 05-27-2021 Office outpatient new 30 minutes Franck Carballo MD Work Phone: [facility] [place] [facility] Comment on above: Esophageal dysphagia (Primary Dx); Food bolus obstruction of intestine (HCC) Start: 05-03-2021 End: 05-06-2021 Evaluation and management of inpatient ZULAY SVITLANA [facility] Start: 05-02-2021 End: 05-03-2021 Emergency department patient visit [facility] Start: 07-08-2020 End: 07-09-[address] [facility] Start: 07-08-2020 End: 07-08-2020 Subsequent hospital visit by physician Iftikhar Kemp DO Work Phone: [facility] Comment on above: Arrived Start: 04-02-2020 End: 04-02-2020 Orders Only Melissa Summer Presley Work Phone: [facility] [place] [facility] Start: 02-23-2019 End: 03-01-2019 Evaluation and management of inpatient Generic [facility] Work Phone: [facility] Comment on above: Acute metabolic ence phalopathy (Primary Dx) Start: 02-23-2019 End: 02-23-2019 Emergency department patient visit [facility] Start: 01-06-2018 End: 01-08-2018 Evaluation and management of inpatient Joaquin Jose Work Phone: [facility] Comment on above: Pneumonia Procedures Date Procedure Procedure Detail Performing Clinician Start: 09-21-2023 Plain X-ray of right wrist DO Iftikhar Kemp Work Phone: Start: 05-27-2023 Radiologic exam ches t single view Sandeep GIBBONS Work Phone: Start: 05-27-2023 Complete blood count with white cell differential, automated Sandeep HERNDONP Work Phone: Start: 05-27-2023 Creatinine blood Sandeep Jones DIRECTOR OF CUSTOMER ACQUISITION Work Phone: Start: 07-08-2020 Radiologic exam swal low function [...] or Plasma Idalia Durairaj Work Phone: Start: 02-27-2019 Basic metabolic 2000 panel - Serum or Plasma Idalia Durairaj Work Phone: Start: 02-26-2019 Natriuretic peptide. B prohormone N-Terminal [Mass/volume] in Serum or Plasma Idalia Durairaj Work Phone: Start: 02-25-2019 Evaluation of arteri al blood gas studies Generic [facility] Work Phone: Start: 02-25-2019 OBTAIN ARTERIAL BLOO D GASES AND PERFORM Stuart Mcgrath Work Phone: Start: 02-25-2019 Videofluoroscopy swallow Stuart Mcgrath Work Phone: Start: 02-25-2019 Contrast echocardiography Holden Whiteside Work Phone: Start: 02-25-2019 [place] [Moles/volum e] in Serum or Plasma Stuart Mcgrath Work Phone: Start: 02-24-2019 Influenza virus A AN D B antigen assay Stuart Mcgrath Work Phone: Start: 02-24-2019 Evaluation of arteri al blood gas studies Generic [facility] Work Phone: Start: 02-24-2019 OBTAIN ARTERIAL BLOO D GASES AND PERFORM Stuart Mcgrath Work Phone: Start: 02-24-2019 Streptococcus pneumo niae antigen assay Holden Whiteside Work Phone: Start: 02-24-2019 Legionella antigen assay Holden Whiteside Work Phone: Start: 02-24-2019 Complete blood count with white cell differential, automated Holden Whiteside Work Phone: Start: 02-24-2019 Complete [...] [Mass/volu me] in Serum or Plasma Stuart Mcgrath Work Phone: Start: 02-23-2019 Evaluation of arteri al blood gas studies Generic [facility] Work Phone: Start: 02-23-2019 Blood count hematocrit [facility] Start: 02-23-2019 Drugs of abuse urine screening test Jenellelora So Work Phone: Start: 02-23-2019 Urinalysis Jenelle So Work Phone: Start: 02-23-2019 OBTAIN ARTERIAL BLOO D GASES AND PERFORM Jenelle Emerya Collettehedi Work Phone: Start: 02-23-2019 Radiologic exam ches t single view Jenelle Coker Collette[facility]aciai Work Phone: Start: 02-23-2019 CT of head without contrast Jenelle Sylvesteri Work Phone: Start: 02-23-2019 Ammonia [Mass/volume ] in Plasma Jenelle Emerya Collettehedi Work Phone: Start: 02-23-2019 Basic metabolic 2000 panel - Serum or Plasma Jenelle Emerya Collettehedi Work Phone: Start: 02-23-2019 Complete blood count with white cell differential, automated Jenelle Emerya Collette[facility] Work Phone: Start: 02-23-2019 Complete blood count with white cell differential, manual Jenelle Emerya Collette[facility] Work Phone: Start: 02-23-2019 Ethanol [Mass/volume ] [...] End: 01-08-2018 Assay of magnesium Bonnie J [employer] Work Phone: Start: 01-08-2018 End: 01-08-2018 CBC, EDIF, PLATELET Bonnie J [employer] Work Phone: Start: 01-08-2018 End: 01-08-2018 Renal function panel Bonnie J [employer] Work Phone: Start: 01-07-2018 End: 01-07-2018 CT of chest Bonnie J Vonnie Work Phone: Start: 01-07-2018 End: 01-07-2018 Assay of magnesium Bonnie J [employer] Phone: Start: 01-07-2018 End: 01-07-2018 CBC, EDIF, PLATELET Bonnie J [employer] Phone: Start: 01-07-2018 End: 01-07-2018 Renal function panel Bonnie J [employer] Work Phone: Start: 01-07-2018 End: 01-07-2018 Iaad ia mult step method nos each organism [employer] Phone: Start: 01-06-2018 End: 01-06-2018 Cul bact xcpt urine blood/stool aerobic isol Bonnie J [employer] Phone: Start: 01-06-2018 End: 01-06-2018 C-reactive protein Bonnie [facility] Phone: Start: 01-06-2018 End: 01-06-2018 Sedimentation rate rbc non-automated Bonnie [facility] Phone: Start: 01-06-2018 End: 01-06-2018 Cultyp nuc acid amp prb cult/isolate ea mt Garcia Work Phone: Start: 01-06-2018 End: 01-06-2018 Culture [...] 2) Shingles (RZV) Vaccine (1 of 2) [facility] Start: 10-04-2028 Tetanus vaccination [facility] [place] Start: 10-15-2023 Influenza vaccination INFLUENZA VACCINE (Season Ended) [facility] Start: 09-21-2023 Plain X-ray of right wrist XR wrist RT 2V [facility] Start: 09-21-2023 XR Wrist - right 2 Views [facility] Start: 10-14-2022 COVID-19 VACCINE ( season) COVID-19 VACCINE ( season) [facility] Start: 11-13-2021 Influenza vaccination Influ[facility] Vaccine (#1[facility] Start: 06-03-2021 End: 06-03-2021 Admission to same day surgery center 06/03/2021 Surgery Franck Carballo MD [address] [address] ESOPHAGOGASTRODUODENOSCOPY [facility] Comment on above: ESOPHAGOGASTRODUODENOSCOPY Start: 06-03-2021 End: 06-03-2021 Esophagogastroduodenoscopy ESOPHAGOGASTRODUODENOSCOPY Esophageal dysphagia Food bolus obstruction of intestine (HCC) 06/03/2021 8:10 AM EDT [facility] Start: 06-03-2021 Subsequent hospital visit by physician 06/03/2021 Hospital Encounter Franck Carballo MD [address] [address] [facility] Start: 10-14-2020 Influenza vaccination Sequential Influenza Vaccine (Season Ended) [facility] [place] Start: 08-14-2020 COVID-19 Vaccine (3 - Booster for Pfizer series) COVID-19 Vaccine (3 - Booster for Pfizer series) [facility] [place] Start: 05-12-2020 COVID-19 Vaccine (3 - Booster for Pfizer series) COVID-19 Vaccine (3 - Booster for Pfizer series) [facility] Start: 10-15-2019 Influenza vaccination given Sequential Influenza Vacci ne (#1) [facility] [place] Start: 01-06-2019 Thyroid stimulating hormone measurement TSH [facility] Start: 01-06-2019 Thyrotropin Qn TSH [facility] Work Phone: Start: 10-14-2018 Influenza vaccination given SEQUENTIAL INFLUENZA VACCI NE (#1) [facility] [place] Start: 10-14-2017 Influenza vaccination INFLUENZA VACCINE (#1) [facility] Work Phone: Start: 07-13-2015 Tetanus vaccination TETANUS [facility] Start: 08-22-2011 Hepatitis B vaccination HEP B VACCINE (1 of 3 - 19+ 3-dose series) [facility] Start: 08-22-2011 Third diphtheria, tetanus and acellular pertussis (DTaP) vaccination TDAP (ADULT) [facility] Work Phone: Start: 2010 Hepatitis C antibody, confirmatory test Hepatitis C Screening [facility] Start: 2010 Hepatitis C screening [facility] Start: 2010 Tetanus + diphtheria + acellular pertussis vaccine (product) Tdap [facility] Start: 2010 Tetanus vaccination TETANUS [facility] Work Phone: Start: 08-22-2007 HIV screening [facility] Start: 2005 HIV screening HIV SCREENING DISCUSSION [facility] Work Phone: Start: 2004 Adolescent depression screening assessment Depression Screening (PHQ9) [facility] Start: 2004 COVID-19 Vaccine (1) COVID-19 Vaccine (1) [facility] Start: 2004 Depression screening using PHQ-9 (Patient Health Questionnaire 9) score [facility] [place] Start: 08-22-1995 History and physical examination, annual for health maintenance Wellness Visit [facility] [place] Start: 1992 Hepatitis C screening HEPATITIS C VIRUS SCREENING [facility] Start: 1992 Tetanus vaccination TETANUS EVERY 10 YR [facility] [place] Bacteria identified Cx Nom (Bld) [facility] Work Phone: End: 02-23-2019 Bacteria identified Cx Nom (Bld) Blood Culture Aerobic/Anaerobic Microbiology Routine Once for 1 Occurrences starting 02/23/2019 until 02/23/2019 [facility] [place] Comment on above: Once for 1 Occurrences starting 02/23/19 20 until 02/23/2019 CBC, EDIF, PLATELET CBC, EDIF, P LATELET Routine Every morning Lab until discontinued starting 01/07/2018, 2 completed [facility] Work Phone: Comment on above: Every morning Lab until discontinued sta rting 01/07/2018, 2 completed MAGNESIUM MAGNESIUM Routin e Every morning Lab until discontinued starting 01/07/2018, 2 completed [facility] Work Phone: Comment on above: Every morning Lab until discontinued sta rting 01/07/2018, 2 completed RENAL FUNCTION PANEL RENAL FUNCT ION PANEL Routine Every morning Lab until discontinued starting 01/07/2018, 2 completed [facility] Work Phone: Comment on above: Every morning Lab until discontinued sta rting 01/07/2018, 2 completed Standard ECG ECG STAT 11/24/2 018 12:02 PM EST [facility] Work Phone: Immunizations Immunization Date Immunization Notes Care Provider Vimal angulo 03-17-2020 COVID-19 Vaccine Pfizer - Documentation Purposes Only Thiago Ramesh Other [facility] 02-25-2020 COVID-19 Vaccine Pfizer - Documentation Purposes Only Thiago Chandler Other [facility] 11-20-2019 influenza, injectabl e, quadrivalent, preservative free Vivi Deonte RDH Work Phone: [facility] 11-20-2019 influenza virus vaccine, unspecified formulation Renetta Lily DDS Work Phone: [facility] 11-22-2017 influenza, injectabl e, quadrivalent, preservative free Vivi Deonte RDH Work Phone: [facility] 12-07-2016 influenza, injectabl e, quadrivalent, contains preservative Vivi Deonte RDH Work Phone: [facility] 11-18-2015 influenza, seasonal, injectable Vivi Deonte RDH Work Phone: [facility] 12-04-2014 influenza, injectabl e, quadrivalent, preservative free Vivi Deonte RDH Work Phone: [facility] 12-19-2013 influenza, injectabl e, quadrivalent, preservative free Vivi Deonte RDH Work Phone: [facility] 12-12-2012 influenza, seasonal, injectable Vivi Deonte RDH Work Phone: [facility] 12-07-2011 influenza, seasonal, injectable Vivi Deonte RDH Work Phone: [facility] 10-27-2010 influenza virus vaccine, whole virus Vivi Deonte RDH Work Phone: [facility] 12-31-2008 novel [id number], preservative-free, injectable Vivi Franciscorillo RD Work Phone: [facility] 07-12-2005 TD(adult) unspecifie d formulation Vivi Franciscorillo RD Work Phone: [facility] Payers Date Payer Category Payer Self-pay [id number] 2019 Medicaid [place] [id number] 2019-Present [id number] 2019 Medicaid [place] [id number] 2019-Present [id number] 2017 Medicaid [id number] 1992 Unknown [id number] 1992 Unknown [id number] 1992 Unknown [id number]. 1992 Unknown [id number] 1992 Unknown [id number]. 1992 Unknown [id number] [id number]. 1992 Unknown [id number] 1992 Unknown [id number] 1992 Unknown [id number] [id number] 1992 Unknown [id number] 1992 Unknown [id number] 1992 Unknown [id number] 1992 Unknown [id number] 1959 Medicaid [id number] Unknown [id number] Unknown [id number] Social History Date Type Detail Facility Start: 01-06-2018 End: 02-22-2019 Tobacco smoking status NHIS Never smoker [facility] Work Phone: Start: 1990 Sex Assigned At Not on file O [facility] Work Phone: Start: 02-23-2019 End: 05-27-2021 Alcohol intake Lifetime non-drinker (finding) [facility] Start: 02-23-2019 End: 02-28-2019 History SDOH Alcohol Frequency 1 [facility] Start: 01-06-2018 End: 02-28-2019 Tobacco use and exposure Never used [facility] Start: 05-17-2021 End: 05-27-2021 Exposure to SARS-CoV-2 (event) Not sure [facility] [place] Tobacco smoking stat us WYIS Tobacco smoking consumption unknown [facility] Start: 01-09-2019 Sex Assigned At F [facility] Start: 1990 Sex Assigned At Male F [facility] Tobacco smoking status No Smokin g Status Entered [facility] Start: 05-27-2023 Alcoholic beverage intake Current non-drinker of alcohol (finding) [facility] Start: 01-09-2019 History of Social function [facility] Start: 01-06-2018 Gender identity Identifies as male gender (finding) [facility] Clinical Notes 07-08-2020 to 05-27-2023 Neda Marks RN - 05/27/2023 4:01 PM Dae Marks RN - 05/27/2023 4:01 PM Doretha Otero MD - 05/27/2023 3:42 PM Dae Marks RN - 05/27/2023 3:26 PM EDTDischarge Instructions Note Date & Type Note Facility 05-27-2023 Emergency department Note Discharge instructions were provided to the patient and mother. Aware to follow up as needed. Soft/liquid diet cor 24 hours explained. No questions. Iv removed and tolerated well. [facility] 05-27-2023 Emergency department Note Discharge instructions were provided to the patient and mother. Aware to follow up as needed. Soft/liquid diet cor 24 hours explained. No questions. Iv removed and tolerated well. Attending note: I have personally performed a [id number] and diagnostic assessment. I have discussed the case with the mid-level and agree with their care plan. History and exam by me shows: In brief this is a 32-year-old MRDD around 1:00 p.m. was eating a hot dog and started choking and gagging. He has never had esophageal foreign body retention. Mom states he was just eating really fast and did not bite the hot dog presents here for further evaluation on examination patient is awake alert gagging but no respiratory distress the patient has no prior history of dysphagia or esophageal foreign body impaction For full history and physical exam and for further detail, please see the P note. VITAL SIGNS DURING ED VISIT: Patient Vitals for the past 24 hrs: BP Temp Temp src Pulse Resp SpO2 Height 05/27/23 1500 124/68 -- -- 75 -- 96 % -- 05/27/23 1449 139/78 -- -- 88 18 97 % -- 05/27/23 1425 -- -- -- 100 18 99 % -- 05/27/23 1420 -- -- -- 97 20 97 % -- 05/27/23 1417 -- -- -- -- -- -- 1.448 m (4' 9 ) 05/27/23 1416 123/90 98.6 F (37 C) Oral 89 22 99 % -- ED COURSE & MEDICAL DECISION MAKING Orders Placed This Encounter XR CHEST 1 VIEW PORTABLE CBC, EDIF, PLATELET CHEM 7 (LYTES,BUN,CREA,GLUC) Metoclopramide (REGLAN) injection 10 mg glucagon (GLUCAGEN) injection 2 mg nitroGLYCERIN (NITROSTAT) tablet SL 0.4 mg ED course patient given Reglan glucagon and nitro sublingual after a period of observation patient did vomit up his hot dog. He has no airway compromise or respiratory distress feels significantly improved no evidence of aspiration pneumonia electrolytes within normal limits will be discharged home recommend soft foods liquids and advance slowly as tolerated. LABS Results for orders placed or performed during the hospital encounter of 05/27/23 CBC, EDIF, PLATELET Result Value Ref Range WBC (WHITE BLOOD COUNT) 6.7 3.6 - 11.0 10*3/uL RBC 3.92 (L) 4.0 - 6.1 10*6/uL HEMOGLOBIN (HGB) 13.1 (L) 14.0 - 18.0 G/DL HEMATOCRIT (HCT) 40.2 (L) 42.0 - 52.0 % MEAN CELL VOLUME 102.5 (H) 80.0 - 100.0 FL Mean Cell HGB 33.5 26.0 - 35.0 PG MEAN CELL HGB CONCENTRATION 32.7 27.0 - 37.0 G/DL RBC DISTRIBUTION 14.6 (H) 11.5 - 14.5 % PLATELET COUNT 280 130 - 400 10*3/uL MEAN PLATELET VOLUME 7.0 (L) 7.4 - 11.0 FL DIFFERENTIAL TYPE AUTO DIFF % NEUTROPHILS 60.5 37.0 - 75.0 % LYMPHOCYTE 29.5 20.0 - 55.0 % MONOCYTE % 8.2 0.0 - 10.0 % EOSINOPHIL % 0.8 0.0 - 11.0 % BASOPHIL % 1.0 0.0 - 2.0 % Absolute Neutrophil Count 4.0 1.4 - 6.5 10*3/uL LYMPHOCYTES, ABSOLUTE 2.0 1.2 - 3.4 10*3/uL MONOCYTES, ABSOLUTE 0.5 0.0 - 0.7 10*3/uL ABSOLUTE EOSINOPHIL COUNT 0.1 0.0 - 0.7 10*3/uL ABSOLUTE BASOPHIL COUNT 0.1 0.0 - 0.2 10*3/uL CHEM 7 (LYTES,BUN,CREA,GLUC) Result Value Ref Range Glucose 110 (H) 70 - 100 MG/DL BUN 19 7 - 20 MG/DL CREATININE SERUM 1.30 (H) 0.7 - 1.2 MG/DL SODIUM 144 137 - 145 MMOL/L POTASSIUM 3.8 3.5 - 5.1 MMOL/L CHLORIDE 106 98 - 107 MMOL/L CARBON DIOXIDE (CO2) 28 22 - 30 MMOL/L ESTIMATED GFR, NON AMER 69 ml/min/1.73sq.m ESTIMATED GFR, 83 ml/min/1.73sq.m GFR COMMENT Average GFR for 30-39 years old = 107. IMAGING: XR CHEST 1 VIEW PORTABLE Final Result IMPRESSION: Unremarkable chest. CONSULTATIONS: PROCEDURES: CLINICAL IMPRESSIONS: 1. Foreign body in esophagus, initial encounter Active 2. Development delay Active Portions of this chart were created using [place] electronic dictation. Please excuse any typographical or grammatical errors contained herein. Liban Otero MD 05/27/23 1544 Liban Otero MD 05/27/23 1547 Called intio the patients room. Patient had large 1 inch piece of hotdog in the emesis bucket. Patient is smiling and stating I did it, I feel so much better . [employer] Regist[employer] and were made aware and the senior strategy analyst is now at bedside. No distress. Vss. stated to wait 10 minutes and take him in oral challenge. Xray at bedside. [employer] Registrar at bedside. Patient and mother stating they were at [facility] and he was eating a hot dog. Mother stated he started to choke, she did the heimlich, but nothing came out. Patients breathing is easy and unlabored but he is coughing up pink tinged sputum. No distress noted. Vss. Patient has been able to carry on a conversation with staff. No immediate distress. Mother stated this happened about 30 minutes prior to arrival and it wasn't getting any better. Iv established and medications given. Patient resting in bed with mother at bedside. Emergency Department Report [facility] EMERGENCY MEDICINE Service Date:.05/27/23 PCP: Iftikhar Kemp Chief Complaint: Chief Complaint Patient presents with Choking Mother and patient was choking on a hotdog at [facility]. Vss. HPI Fahad Bernabe is a 32 y.o. male presents to the ED today due to choking while eating a hot dog which happened approximately 30 minutes prior to arrival to the ED. mother reports patient took 3 quick bites of a hot dog and then began coughing and choking. She states she performed the Heimlich maneuver on the patient however none of the hot dog came out. She states the patient has been spitting up phlegm since the incident and he has not been able to eat or drink since then. She denies any periods of apnea and states patient did not pass out or lose consciousness at any point. Mother reports patient has a history of dysphagia however does not need thickened liquids and has been able to eat solid food without complication. Review of Systems: Review of Systems Constitutional: Negative for activity change, appetite change, fatigue, fever and unexpected weight change. HENT: Negative for congestion, ear discharge, ear pain, hearing loss, postnasal drip, rhinorrhea, sore throat and trouble swallowing. Choking, coughing, spitting up from eating hotdog. Eyes: Negative for pain, discharge and visual disturbance. Respiratory: Negative for apnea, cough and shortness of breath. Cardiovascular: Negative for chest pain and palpitations. Gastrointestinal: Negative for abdominal distention, abdominal pain, blood in stool, constipation, diarrhea, nausea and vomiting. Endocrine: Negative for polydipsia, polyphagia and polyuria. Genitourinary: Negative for decreased urine volume, difficulty urinating, flank pain, frequency and hematuria. Musculoskeletal: Negative for back pain, gait problem and joint swelling. Skin: Negative for color change, pallor, rash and wound. Allergic/Immunologic: Negative for environmental allergies, food allergies and immunocompromised state. Neurological: Negative for dizziness, weakness, light-headedness, numbness and headaches. Hematological: Negative for adenopathy. Psychiatric/Behavioral: Negative for agitation, behavioral problems, decreased concentration, self-injury, sleep disturbance and suicidal ideas. The patient is not nervous/anxious and is not hyperactive. Past Medical History: Past Medical History: Diagnosis Date ADHD Apnea Blepharitis Depression Down's syndrome Eczema Hypothyroidism OCD (obsessive compulsive disorder) Seizure Past Surgical History: No past surgical history on file. Allergies: Allergies Allergen Reactions Naproxen Hives Medications: Patient's Medications New Prescriptions No medications on file Previous Medications B COMPLEX VITAMINS (B COMPLEX 100 PO) Take by mouth. BENZONATATE 100 MG CAP CAPSULE Take 1 capsule by mouth 3 times daily as needed for Cough. BENZOYL PEROXIDE (PANOXYL) 10 % BAR Apply topically. CARBAMAZEPINE PO Take 400 mg by mouth 2 times daily. CHLORPROMAZINE 10 MG TAB Take 50 mg by mouth 3 times daily. CLINDAMYCIN 1 % SOLUTION Apply 1 Application topically 2 times daily. use thin film on affected area CLONIDINE 0.2 MG TAB TABLET Take 0.2 mg by mouth 3 times daily. DIVALPROEX [address] TABLET EC/DR Take 250 mg by mouth 2 times daily. DIVALPROEX [address] TABLET EC/DR Take 1,000 mg by mouth at bedtime. DOCUSATE 100 MG CAP CAPSULE Take 100 mg by mouth 2 times daily. FAMOTIDINE 20 MG TAB TABLET Take 20 mg by mouth 2 times daily. GABAPENTIN 100 MG CAP CAPSULE Take 100 mg by mouth 3 times daily. LEVOTHYROXINE 125 MCG TAB TABLET Take 125 mcg by mouth daily. LITHIUM 300 MG CAP Take 300 mg by mouth 3 times daily. LORAZEPAM 1 MG TAB TABLET Take 1 mg by mouth every 6 hours as needed for Anxiety. PREDNISONE 10 MG TAB TABLET 4 tabs po daily x 3 days, 3 tabs po daily x 3 days, 2 tabs po daily x 3 days, 1 tab po daily x 3 days, then discontinue RISPERIDONE 1 MG TAB TABLET Take 1 mg by mouth 3 times daily. VILAZODONE HCL (VIIBRYD) 20 MG TAB Take 30 mg by mouth. Modified Medications No medications on file Discontinued Medications No medications on file Family History: History reviewed. No pertinent family history. Social History: Social History Socioeconomic History Marital status: Single Spouse name: Not on file Number of children: Not on file Years of education: Not on file Highest education level: Not on file Occupational History Not on file Tobacco Use Smoking status: Never Smokeless tobacco: Never Substance and Sexual Activity Alcohol use: No Drug use: No Sexual activity: Not on file Other Topics Concern Not on file Social History Narrative Not on file Social Determinants of Health Financial Resource Strain: Not on file Food Insecurity: Not on file Transportation Needs: Not on file Physical Activity: Not on file Stress: Not on file Social Connections: Not on file Intimate Partner Violence: Unknown (04/06/2023) Received from [facility] Safety & Environment Fear of Current or Ex-Partner: Not on file Emotionally Abused: Not on file Physically Abused: Not on file Sexually Abused: Not on file Physically or Sexually Abused: Not on file Housing Stability: Not on file Physical Exam: Physical Exam Vitals and nursing note reviewed. Constitutional: General: He is not in acute distress. Appearance: Normal appearance. He is normal weight. He is not ill-appearing or toxic-appearing. HENT: Right Ear: Tympanic membrane, ear canal and external ear normal. Left Ear: Tympanic membrane, ear canal and external ear normal. Nose: No congestion or rhinorrhea. Mouth/Throat: Pharynx: Oropharynx is clear. No oropharyngeal exudate or posterior oropharyngeal erythema. Comments: Patient is coughing, gurgling and spitting up phlegm. He is able to swallow secretions. He is maintaining his airway. He has not in any respiratory distress or tachypnea. Lungs are clear bilaterally. No foreign bodies visible on visualization. Eyes: General: No scleral icterus. Right eye: No discharge. Left eye: No discharge. Extraocular Movements: Extraocular movements intact. Conjunctiva/sclera: Conjunctivae normal. Pupils: Pupils are equal, round, and reactive to light. Cardiovascular: Rate and Rhythm: Normal rate and regular rhythm. Pulses: Normal pulses. Heart sounds: Normal heart sounds. No murmur heard. Pulmonary: Effort: Pulmonary effort is normal. No respiratory distress. Breath sounds: Normal breath sounds. No stridor. No wheezing, rhonchi or rales. Abdominal: General: Bowel sounds are normal. There is no distension. Palpations: Abdomen is soft. Tenderness: There is no abdominal tenderness. There is no guarding. Musculoskeletal: General: No swelling, tenderness, deformity or signs of injury. Cervical back: No tenderness. Lymphadenopathy: Cervical: No cervical adenopathy. Skin: General: Skin is warm and dry. Capillary Refill: Capillary refill takes less than 2 seconds. Coloration: Skin is not pale. Findings: No erythema, lesion or rash. Neurological: General: No focal deficit present. Mental Status: He is alert and oriented to person, place, and time. Mental status is at baseline. Sensory: No sensory deficit. Motor: No weakness. Coordination: Coordination normal. Gait: Gait normal. Deep Tendon Reflexes: Reflexes normal. Psychiatric: Mood and Affect: Mood normal. Behavior: Behavior normal. Thought Content: Thought content normal. Judgment: Judgment normal. Vital Signs During ED Visit Patient Vitals for the past 24 hrs: BP Temp Temp src Pulse Resp SpO2 Height 05/27/23 1500 124/68 -- -- 75 -- 96 % -- 05/27/23 1449 139/78 -- -- 88 18 97 % -- 05/27/23 1425 -- -- -- 100 18 99 % -- 05/27/23 1420 -- -- -- 97 20 97 % -- 05/27/23 1417 -- -- -- -- -- -- 1.448 m (4' 9 ) 05/27/23 1416 123/90 98.6 F (37 C) Oral 89 22 99 % -- Orders/Results: Orders Placed This Encounter XR CHEST 1 VIEW PORTABLE CBC, EDIF, PLATELET CHEM 7 (LYTES,BUN,CREA,GLUC) Metoclopramide (REGLAN) injection 10 mg glucagon (GLUCAGEN) injection 2 mg nitroGLYCERIN (NITROSTAT) tablet SL 0.4 mg Results for orders placed or performed during the hospital encounter of 05/27/23 CBC, EDIF, PLATELET Result Value Ref Range WBC (WHITE BLOOD COUNT) 6.7 3.6 - 11.0 10*3/uL RBC 3.92 (L) 4.0 - 6.1 10*6/uL HEMOGLOBIN (HGB) 13.1 (L) 14.0 - 18.0 G/DL HEMATOCRIT (HCT) 40.2 (L) 42.0 - 52.0 % MEAN CELL VOLUME 102.5 (H) 80.0 - 100.0 FL Mean Cell HGB 33.5 26.0 - 35.0 PG MEAN CELL HGB CONCENTRATION 32.7 27.0 - 37.0 G/DL RBC DISTRIBUTION 14.6 (H) 11.5 - 14.5 % PLATELET COUNT 280 130 - 400 10*3/uL MEAN PLATELET VOLUME 7.0 (L) 7.4 - 11.0 FL DIFFERENTIAL TYPE AUTO DIFF % NEUTROPHILS 60.5 37.0 - 75.0 % LYMPHOCYTE 29.5 20.0 - 55.0 % MONOCYTE % 8.2 0.0 - 10.0 % EOSINOPHIL % 0.8 0.0 - 11.0 % BASOPHIL % 1.0 0.0 - 2.0 % Absolute Neutrophil Count 4.0 1.4 - 6.5 10*3/uL LYMPHOCYTES, ABSOLUTE 2.0 1.2 - 3.4 10*3/uL MONOCYTES, ABSOLUTE 0.5 0.0 - 0.7 10*3/uL ABSOLUTE EOSINOPHIL COUNT 0.1 0.0 - 0.7 10*3/uL ABSOLUTE BASOPHIL COUNT 0.1 0.0 - 0.2 10*3/uL CHEM 7 (LYTES,BUN,CREA,GLUC) Result Value Ref Range Glucose 110 (H) 70 - 100 MG/DL BUN 19 7 - 20 MG/DL CREATININE SERUM 1.30 (H) 0.7 - 1.2 MG/DL SODIUM 144 137 - 145 MMOL/L POTASSIUM 3.8 3.5 - 5.1 MMOL/L CHLORIDE 106 98 - 107 MMOL/L CARBON DIOXIDE (CO2) 28 22 - 30 MMOL/L ESTIMATED GFR, NON AMER 69 ml/min/1.73sq.m ESTIMATED GFR, 83 ml/min/1.73sq.m GFR COMMENT Average GFR for 30-39 years old = 107. Radiographic Imaging XR CHEST 1 VIEW PORTABLE Final Result IMPRESSION: Unremarkable chest. Procedures: Procedures Moderate Sedation Procedure: No ED Summary/MDM Patient received glucagon, Reglan, sublingual nitro while in ED. patient was able to spit out a chunk of hot dog. Patient is able to maintain airway and able to tolerate fluids. Recommend liquid diet and advance as tolerated. X-ray shows no signs of infection or aspiration. Patient is stable and in no acute distress, will discharge home with parents. Clinical Impression: 1. Foreign body in esophagus, initial encounter Active 2. Development delay Active No follow-ups on file. New Prescriptions No medications on file Discontinued Medications No medications on file An After Visit Summary was printed and given to the patient with above information. . . Sandeep Jones, [facility] 05/27/23 1545 Associated attestation - Liban Otero MD - 05/27/2023 8:13 PM EDT Attending note: I have consulted with the mid-level provider and agree with the assessment and plan. The patient was seen independently by the mid-level and I did not personally examine the patient. documented in this encounter [facility] 05-27-2023 Hospital Discharge instructions Liban Otero MD - 05/27/2023 3:46 PM EDT Stay with soft foods soups broth and Jell-O the next 24 hours then advance as directed avoid solid food at this time due to inflammation The following attachments cannot be sent through Care Everywhere.Foreign Body in Throat or Esophagus ([place])documented in this encounter [facility] 05-27-2023 Physician Emergency department Note Attending note: I have personally performed a [id number] and diagnostic assessment. I have discussed the case with the mid-level and agree with their care plan. History and exam by me shows: In brief this is a 32-year-old MRDD around 1:00 p.m. was eating a hot dog and started choking and gagging. He has never had esophageal foreign body retention. Mom states he was just eating really fast and did not bite the hot dog presents here for further evaluation on examination patient is awake alert gagging but no respiratory distress the patient has no prior history of dysphagia or esophageal foreign body impaction For full history and physical exam and for further detail, please see the [facility] note. VITAL SIGNS DURING ED VISIT: Patient Vitals for the past 24 hrs: BP Temp Temp src Pulse Resp SpO2 Height 05/27/23 1500 124/68 -- -- 75 -- 96 % -- 05/27/23 1449 139/78 -- -- 88 18 97 % -- 05/27/23 1425 -- -- -- 100 18 99 % -- 05/27/23 1420 -- -- -- 97 20 97 % -- 05/27/23 1417 -- -- -- -- -- -- 1.448 m (4' 9 ) 05/27/23 1416 123/90 98.6 F (37 C) Oral 89 22 99 % -- ED COURSE & MEDICAL DECISION MAKING Orders Placed This Encounter XR CHEST 1 VIEW PORTABLE CBC, EDIF, PLATELET CHEM 7 (LYTES,BUN,CREA,GLUC) Metoclopramide (REGLAN) injection 10 mg glucagon (GLUCAGEN) injection 2 mg nitroGLYCERIN (NITROSTAT) tablet SL 0.4 mg ED course patient given Reglan glucagon and nitro sublingual after a period of observation patient did vomit up his hot dog. He has no airway compromise or respiratory distress feels significantly improved no evidence of aspiration pneumonia electrolytes within normal limits will be discharged home recommend soft foods liquids and advance slowly as tolerated. LABS Results for orders placed or performed during the hospital encounter of 05/27/23 CBC, EDIF, PLATELET Result Value Ref Range WBC (WHITE BLOOD COUNT) 6.7 3.6 - 11.0 10*3/uL RBC 3.92 (L) 4.0 - 6.1 10*6/uL HEMOGLOBIN (HGB) 13.1 (L) 14.0 - 18.0 G/DL HEMATOCRIT (HCT) 40.2 (L) 42.0 - 52.0 % MEAN CELL VOLUME 102.5 (H) 80.0 - 100.0 FL Mean Cell HGB 33.5 26.0 - 35.0 PG MEAN CELL HGB CONCENTRATION 32.7 27.0 - 37.0 G/DL RBC DISTRIBUTION 14.6 (H) 11.5 - 14.5 % PLATELET COUNT 280 130 - 400 10*3/uL MEAN PLATELET VOLUME 7.0 (L) 7.4 - 11.0 FL DIFFERENTIAL TYPE AUTO DIFF % NEUTROPHILS 60.5 37.0 - 75.0 % LYMPHOCYTE 29.5 20.0 - 55.0 % MONOCYTE % 8.2 0.0 - 10.0 % EOSINOPHIL % 0.8 0.0 - 11.0 % BASOPHIL % 1.0 0.0 - 2.0 % Absolute Neutrophil Count 4.0 1.4 - 6.5 10*3/uL LYMPHOCYTES, ABSOLUTE 2.0 1.2 - 3.4 10*3/uL MONOCYTES, ABSOLUTE 0.5 0.0 - 0.7 10*3/uL ABSOLUTE EOSINOPHIL COUNT 0.1 0.0 - 0.7 10*3/uL ABSOLUTE BASOPHIL COUNT 0.1 0.0 - 0.2 10*3/uL CHEM 7 (LYTES,BUN,CREA,GLUC) Result Value Ref Range Glucose 110 (H) 70 - 100 MG/DL BUN 19 7 - 20 MG/DL CREATININE SERUM 1.30 (H) 0.7 - 1.2 MG/DL SODIUM 144 137 - 145 MMOL/L POTASSIUM 3.8 3.5 - 5.1 MMOL/L CHLORIDE 106 98 - 107 MMOL/L CARBON DIOXIDE (CO2) 28 22 - 30 MMOL/L ESTIMATED GFR, NON AMER 69 ml/min/1.73sq.m ESTIMATED GFR, 83 ml/min/1.73sq.m GFR COMMENT Average GFR for 30-39 years old = 107. IMAGING: XR CHEST 1 VIEW PORTABLE Final Result IMPRESSION: Unremarkable chest. CONSULTATIONS: PROCEDURES: CLINICAL IMPRESSIONS: 1. Foreign body in esophagus, initial encounter Active 2. Development delay Active Portions of this chart were created using [place] electronic dictation. Please excuse any typographical or grammatical errors contained herein. Liban Otero MD 05/27/23 1544 Liban Otero MD 05/27/23 1547 [facility] 05-27-2023 Emergency department Note Called intio the patients room. Patient had large 1 inch piece of hotdog in the emesis bucket. Patient is smiling and stating I did it, I feel so much better . [employer] Registrar and dr were made aware and the senior strategy analyst is now at bedside. No distress. Vss. Dr stated to wait 10 minutes and take him in oral challenge. [facility] 05-27-2023 Emergency department Note Xray at bedside. [employer] Registrar at bedside. [facility] 05-27-2023 Emergency department Note Patient and mother stating they were at [facility] and he was eating a hot dog. Mother stated he started to choke, she did the heimlich, but nothing came out. Patients breathing is easy and unlabored but he is coughing up pink tinged sputum. No distress noted. Vss. Patient has been able to carry on a conversation with staff. No immediate distress. Mother stated this happened about 30 minutes prior to arrival and it wasn't getting any better. Iv established and medications given. Patient resting in bed with mother at bedside. [facility] 05-27-2023 Physician Emergency department Note Emergency Department Report [facility] EMERGENCY MEDICINE Service Date:.05/27/23 PCP: Iftikhar Kemp Chief Complaint: Chief Complaint Patient presents with Choking Mother and patient was choking on a hotdog at [facility]. Vss. HPI Fahad Bernabe is a 32 y.o. male presents to the ED today due to choking while eating a hot dog which happened approximately 30 minutes prior to arrival to the ED. mother reports patient took 3 quick bites of a hot dog and then began coughing and choking. She states she performed the Heimlich maneuver on the patient however none of the hot dog came out. She states the patient has been spitting up phlegm since the incident and he has not been able to eat or drink since then. She denies any periods of apnea and states patient did not pass out or lose consciousness at any point. Mother reports patient has a history of dysphagia however does not need thickened liquids and has been able to eat solid food without complication. Review of Systems: Review of Systems Constitutional: Negative for activity change, appetite change, fatigue, fever and unexpected weight change. HENT: Negative for congestion, ear discharge, ear pain, hearing loss, postnasal drip, rhinorrhea, sore throat and trouble swallowing. Choking, coughing, spitting up from eating hotdog. Eyes: Negative for pain, discharge and visual disturbance. Respiratory: Negative for apnea, cough and shortness of breath. Cardiovascular: Negative for chest pain and palpitations. Gastrointestinal: Negative for abdominal distention, abdominal pain, blood in stool, constipation, diarrhea, nausea and vomiting. Endocrine: Negative for polydipsia, polyphagia and polyuria. Genitourinary: Negative for decreased urine volume, difficulty urinating, flank pain, frequency and hematuria. Musculoskeletal: Negative for back pain, gait problem and joint swelling. Skin: Negative for color change, pallor, rash and wound. Allergic/Immunologic: Negative for environmental allergies, food allergies and immunocompromised state. Neurological: Negative for dizziness, weakness, light-headedness, numbness and headaches. Hematological: Negative for adenopathy. Psychiatric/Behavioral: Negative for agitation, behavioral problems, decreased concentration, self-injury, sleep disturbance and suicidal ideas. The patient is not nervous/anxious and is not hyperactive. Past Medical History: Past Medical History: Diagnosis Date ADHD Apnea Blepharitis Depression Down's syndrome Eczema Hypothyroidism OCD (obsessive compulsive disorder) Seizure Past Surgical History: No past surgical history on file. Allergies: Allergies Allergen Reactions Naproxen Hives Medications: Patient's Medications New Prescriptions No medications on file Previous Medications B COMPLEX VITAMINS (B COMPLEX 100 PO) Take by mouth. BENZONATATE 100 MG CAP CAPSULE Take 1 capsule by mouth 3 times daily as needed for Cough. BENZOYL PEROXIDE (PANOXYL) 10 % BAR Apply topically. CARBAMAZEPINE PO Take 400 mg by mouth 2 times daily. CHLORPROMAZINE 10 MG TAB Take 50 mg by mouth 3 times daily. CLINDAMYCIN 1 % SOLUTION Apply 1 Application topically 2 times daily. use thin film on affected area CLONIDINE 0.2 MG TAB TABLET Take 0.2 mg by mouth 3 times daily. DIVALPROEX [address] TABLET EC/DR Take 250 mg by mouth 2 times daily. DIVALPROEX [address] TABLET EC/DR Take 1,000 mg by mouth at bedtime. DOCUSATE 100 MG CAP CAPSULE Take 100 mg by mouth 2 times daily. FAMOTIDINE 20 MG TAB TABLET Take 20 mg by mouth 2 times daily. GABAPENTIN 100 MG CAP CAPSULE Take 100 mg by mouth 3 times daily. LEVOTHYROXINE 125 MCG TAB TABLET Take 125 mcg by mouth daily. LITHIUM 300 MG CAP Take 300 mg by mouth 3 times daily. LORAZEPAM 1 MG TAB TABLET Take 1 mg by mouth every 6 hours as needed for Anxiety. PREDNISONE 10 MG TAB TABLET 4 tabs po daily x 3 days, 3 tabs po daily x 3 days, 2 tabs po daily x 3 days, 1 tab po daily x 3 days, then discontinue RISPERIDONE 1 MG TAB TABLET Take 1 mg by mouth 3 times daily. VILAZODONE HCL (VIIBRYD) 20 MG TAB Take 30 mg by mouth. Modified Medications No medications on file Discontinued Medications No medications on file Family History: History reviewed. No pertinent family history. Social History: Social History Socioeconomic History Marital status: Single Spouse name: Not on file Number of children: Not on file Years of education: Not on file Highest education level: Not on file Occupational History Not on file Tobacco Use Smoking status: Never Smokeless tobacco: Never Substance and Sexual Activity Alcohol use: No Drug use: No Sexual activity: Not on file Other Topics Concern Not on file Social History Narrative Not on file Social Determinants of Health Financial Resource Strain: Not on file Food Insecurity: Not on file Transportation Needs: Not on file Physical Activity: Not on file Stress: Not on file Social Connections: Not on file Intimate Partner Violence: Unknown (04/06/2023) Received from [facility] Safety & Environment Fear of Current or Ex-Partner: Not on file Emotionally Abused: Not on file Physically Abused: Not on file Sexually Abused: Not on file Physically or Sexually Abused: Not on file Housing Stability: Not on file Physical Exam: Physical Exam Vitals and nursing note reviewed. Constitutional: General: He is not in acute distress. Appearance: Normal appearance. He is normal weight. He is not ill-appearing or toxic-appearing. HENT: Right Ear: Tympanic membrane, ear canal and external ear normal. Left Ear: Tympanic membrane, ear canal and external ear normal. Nose: No congestion or rhinorrhea. Mouth/Throat: Pharynx: Oropharynx is clear. No oropharyngeal exudate or posterior oropharyngeal erythema. Comments: Patient is coughing, gurgling and spitting up phlegm. He is able to swallow secretions. He is maintaining his airway. He has not in any respiratory distress or tachypnea. Lungs are clear bilaterally. No foreign bodies visible on visualization. Eyes: General: No scleral icterus. Right eye: No discharge. Left eye: No discharge. Extraocular Movements: Extraocular movements intact. Conjunctiva/sclera: Conjunctivae normal. Pupils: Pupils are equal, round, and reactive to light. Cardiovascular: Rate and Rhythm: Normal rate and regular rhythm. Pulses: Normal pulses. Heart sounds: Normal heart sounds. No murmur heard. Pulmonary: Effort: Pulmonary effort is normal. No respiratory distress. Breath sounds: Normal breath sounds. No stridor. No wheezing, rhonchi or rales. Abdominal: General: Bowel sounds are normal. There is no distension. Palpations: Abdomen is soft. Tenderness: There is no abdominal tenderness. There is no guarding. Musculoskeletal: General: No swelling, tenderness, deformity or signs of injury. Cervical back: No tenderness. Lymphadenopathy: Cervical: No cervical adenopathy. Skin: General: Skin is warm and dry. Capillary Refill: Capillary refill takes less than 2 seconds. Coloration: Skin is not pale. Findings: No erythema, lesion or rash. Neurological: General: No focal deficit present. Mental Status: He is alert and oriented to person, place, and time. Mental status is at baseline. Sensory: No sensory deficit. Motor: No weakness. Coordination: Coordination normal. Gait: Gait normal. Deep Tendon Reflexes: Reflexes normal. Psychiatric: Mood and Affect: Mood normal. Behavior: Behavior normal. Thought Content: Thought content normal. Judgment: Judgment normal. Vital Signs During ED Visit Patient Vitals for the past 24 hrs: BP Temp Temp src Pulse Resp SpO2 Height 05/27/23 1500 124/68 -- -- 75 -- 96 % -- 05/27/23 1449 139/78 -- -- 88 18 97 % -- 05/27/23 1425 -- -- -- 100 18 99 % -- 05/27/23 1420 -- -- -- 97 20 97 % -- 05/27/23 1417 -- -- -- -- -- -- 1.448 m (4' 9 ) 05/27/23 1416 123/90 98.6 F (37 C) Oral 89 22 99 % -- Orders/Results: Orders Placed This Encounter XR CHEST 1 VIEW PORTABLE CBC, EDIF, PLATELET CHEM 7 (LYTES,BUN,CREA,GLUC) Metoclopramide (REGLAN) injection 10 mg glucagon (GLUCAGEN) injection 2 mg nitroGLYCERIN (NITROSTAT) tablet SL 0.4 mg Results for orders placed or performed during the hospital encounter of 05/27/23 CBC, EDIF, PLATELET Result Value Ref Range WBC (WHITE BLOOD COUNT) 6.7 3.6 - 11.0 10*3/uL RBC 3.92 (L) 4.0 - 6.1 10*6/uL HEMOGLOBIN (HGB) 13.1 (L) 14.0 - 18.0 G/DL HEMATOCRIT (HCT) 40.2 (L) 42.0 - 52.0 % MEAN CELL VOLUME 102.5 (H) 80.0 - 100.0 FL Mean Cell HGB 33.5 26.0 - 35.0 PG MEAN CELL HGB CONCENTRATION 32.7 27.0 - 37.0 G/DL RBC DISTRIBUTION 14.6 (H) 11.5 - 14.5 % PLATELET COUNT 280 130 - 400 10*3/uL MEAN PLATELET VOLUME 7.0 (L) 7.4 - 11.0 FL DIFFERENTIAL TYPE AUTO DIFF % NEUTROPHILS 60.5 37.0 - 75.0 % LYMPHOCYTE 29.5 20.0 - 55.0 % MONOCYTE % 8.2 0.0 - 10.0 % EOSINOPHIL % 0.8 0.0 - 11.0 % BASOPHIL % 1.0 0.0 - 2.0 % Absolute Neutrophil Count 4.0 1.4 - 6.5 10*3/uL LYMPHOCYTES, ABSOLUTE 2.0 1.2 - 3.4 10*3/uL MONOCYTES, ABSOLUTE 0.5 0.0 - 0.7 10*3/uL ABSOLUTE EOSINOPHIL COUNT 0.1 0.0 - 0.7 10*3/uL ABSOLUTE BASOPHIL COUNT 0.1 0.0 - 0.2 10*3/uL CHEM 7 (LYTES,BUN,CREA,GLUC) Result Value Ref Range Glucose 110 (H) 70 - 100 MG/DL BUN 19 7 - 20 MG/DL CREATININE SERUM 1.30 (H) 0.7 - 1.2 MG/DL SODIUM 144 137 - 145 MMOL/L POTASSIUM 3.8 3.5 - 5.1 MMOL/L CHLORIDE 106 98 - 107 MMOL/L CARBON DIOXIDE (CO2) 28 22 - 30 MMOL/L ESTIMATED GFR, NON AMER 69 ml/min/1.73sq.m ESTIMATED GFR, 83 ml/min/1.73sq.m GFR COMMENT Average GFR for 30-39 years old = 107. Radiographic Imaging XR CHEST 1 VIEW PORTABLE Final Result IMPRESSION: Unremarkable chest. Procedures: Procedures Moderate Sedation Procedure: No ED Summary/MDM Patient received glucagon, Reglan, sublingual nitro while in ED. patient was able to spit out a chunk of hot dog. Patient is able to maintain airway and able to tolerate fluids. Recommend liquid diet and advance as tolerated. X-ray shows no signs of infection or aspiration. Patient is stable and in no acute distress, will discharge home with parents. Clinical Impression: 1. Foreign body in esophagus, initial encounter Active 2. Development delay Active No follow-ups on file. New Prescriptions No medications on file Discontinued Medications No medications on file An After Visit Summary was printed and given to the patient with above information. . . Sandeep Jones, EDWIGE 05/27/23 [id number] Associated attestation - iLban Otero MD - 05/27/2023 8:13 PM EDT Attending note: I have consulted with the mid-level provider and agree with the assessment and plan. The patient was seen independently by the mid-level and I did not personally examine the patient. [facility] [employer] Work Phone: 05-10-2023 Evaluation + Plan note Diagnostic Tests PendingLithium Level 05/10/23T3 Free 05/10/23 [facility] 11-03-2022 Evaluation note Encounter Date Diagnosis Assessment Notes Oct, Pulmonary hypertension (ICD-10 - I27.20) Oct, Sleep apnea in adult (ICD-10 - G47.33) Oct, Pickwickian syndrome (ICD-10 - E66.2) Oct, Pneumonia (ICD-10 - J18.9) Continue with aspiration prevention measures as you are [facility] Other 09-21-2023 History general Narrative - Reported* Type Description Date Medical History sleep apnea....Auto CPAP 8-12 wi th O2 at 3 liters Medical History Hypothyroidism Medical History cleft palate Medical History pulmonary HTN Medical History ADHD Medical History Seizure Disorder Surgical History Heart 2 holes upper and lower a t Surgical History tubes in ears Hospitalization History pneumonia [facility] 09/2018 Hospitalization History Sepsis [facility] 09/2018 Hospitalization History [facility] [place] 12/2018 Hospitalization History [facility] el[facility] Pneuminia 02/2019 [facility] Other 10-20-2022 Evaluation note* Encounter Date Diagnosis [...] responded to diuretics and to oxygen therapy [facility] Other 09-22-2022 Evaluation note* Encounter Date Diagnosis Assessment Notes Treatment Notes Treatment Clinical Notes Oct, Pulmonary hypertension (ICD-10 - I27.20) Oct, Sleep apnea in adult (ICD-10 - G47.33) Continue to follow Dr. Chandler recommendations. [facility] medical technicians stated results of most recent sleep study completed 10/13/2021 will be discussed at patient's next sleep lab visit in November 2021. Oct, Pickwickian syndrome (ICD-10 - E66.2) Oct, Pneumonia (ICD-10 - J18.9) [facility] Other 08-10-2022 History of Present illness Narrative* Michelle Singh DDS - 09/22/2021 10:00 AM EDT ----- Wednesday, September 22, 2021 at 11:33:21 AM ----- ----- Provider: [id number] Juan Pablo Singh, Resident -- Clinic: [facility] [place] ----- COMPOSITE YAZIDISM Patient is scheduled for [facility] on tooth #22-MDF, 23-MDF, 24-MDF, 25-MDF, 26-MDF and 27 surface MDF. Reviewed Medical History. Pt exhibited the following conditions: Mental Disorders Patient is ready for treatment. Topical Benzocaine gel applied at the injection site for 2 minutes. Administered 1 carpules of Lidocaine, 2% with Epinephrine 1:100,000,. Decay/existing gnosticism removed, cavity prepared. Selectively etched enamel with 37% phosphoric acid, rinsed, and blot dried. OptiBond davidson applied and light-cured. Condensed packable composite shade in light cured increments using Mylar strip and wedge. Finished with finishing burs, checked occlusion, verified proximal contacts and gnosticism was polished. Rinsed and suctioned intraorally, advised patient to not eat until local anesthesia wears off. POST OPERATIVE Periapical (multiple) RADIOGRAPH TAKEN. NOTE: patient is special needs, came in with a caregiver, patient was very cooperative. Patient had excessive saliva and he was frequently closing his mouth during restorations. Cindy noticed in post op xray, re-did the restorations, flossed his teeth, made sure margins are smooth and intact. Next Visit: Prophy ----- Signed on Wednesday, September 22, 2021 at 11:49:29 AM ----- ----- Provider: [id number] Juan Pablo Zapata DDS -- Clinic: [facility] [place] ----- documented in this [id number] Evaluation note* Encounter Date Diagnosis Assessment Notes [...] responded to diuretics and to oxygen therapy [facility] Other 06-23-2022 History general Narrative - Reported* Type Description Date Medical History sleep apnea....Auto CPAP 8-12 O2 at 3 liters Medical History Hypothyroidism Medical History cleft palate Medical History pulmonary HTN Medical History ADHD Medical History Seizure Disorder Surgical History Heart 2 holes upper and lower a t Surgical History tubes in ears Hospitalization History pneumonia [facility] 09/2018 Hospitalization History Sepsis [facility] 09/2018 Hospitalization History [facility] [place] 12/2018 Hospitalization History [facility] Mansfi el[facility] Pneuminia 02/2019 [facility] Other 04-26-2022 History of Present illness Narrative* Vivi Clemons, [facility] - 06/08/2021 10:54 AM EDT RM, Pt is ready for tx PT is [...] on 6 month recall. Examination completed by /[employer] [facility] [place]: mian ----- Signed on Tuesday, June 08, 2021 at 2:17:56 PM ----- ----- Provider: Emeterio Zapata DDS -- Clinic: [facility] ----- documented in this [id number] NoteEXAMINATION: XR CHEST 2 V HISTORY: COVID-19 [...] Electronically authenticated by: ZULAY LYLE Date: 2021-06-01 11:36[facility]04-14-[facility] History of Present illness Narrative* Franck [...] Laterality Date CARDIAC SURGERY As an infant has a current medication list which includes [...] covid, recent covid positive documented in this [id number] Procedure note* Lazaro Figueredo SLP - 07/08/2020 8:30 AM EDT Procedure(s): NEON MOLDER MODIFIED BARIUM SWALLOW Pre-Procedure Diagnose(s): Dysphagia, oropharyngeal Post-Procedure Diagnose(s): Dysphagia, oropharyngeal [facility] Speech Language Pathology Modified Barium Swallow [...] 8 Point Penetration-Aspiration Scale Honey: Not Tested Vale: Not Tested Thin: 2 - Material enters [...] After Discharge: No documented in [facility] encounter[facility]HealthEvaluation + Plan note No data available for this section [facility] Diagnosis Dyspepsia Dyspepsia and other specified disorders of function of stomach Acute respiratory failure, unspecified whether with hypoxia or hypercapnia (HCC) [facility]* Diagnosis Esophageal dysphagia- Primary Dysphagia, pharyngoesophageal phase Food bolus obstruction of intestine (HCC) Esophageal dysphagia Dysphagia, pharyngoesophageal phase Food bolus obstruction of intestine (HCC) Esophageal dysphagia Dysphagia, pharyngoesophageal phase Food bolus obstruction of intestine (HCC) documented in this encounter [facility] noteNo assessment information [facility] Work Phone: Evaluation note* Diagnosis Onset Date Resolution Status Pulmonary hypertension acute [facility] Work Phone: Evaluation note* Diagnosis Foreign body in esophagus, initial encounter- Primary Development delay Unspecified delay in development [facility] Diagnosis Onset Date Resolution Status Distal radius fracture acute Distal radius fracture acute [facility] Work Phone: History general Narrative - Reported* Type Description Date Medical History sleep apnea....Auto CPAP 8-12 nm th O2 at 3 liters Medical History Hypothyroidism Medical History cleft palate Medical History pulmonary HTN Medical History ADHD Medical History Seizure Disorder Surgical History Heart 2 holes upper and lower a t Surgical History tubes in ears Hospitalization History pneumonia [facility] 09/2018 Hospitalization History Sepsis [facility] 09/2018 Hospitalization History [facility] pneumonia 12/2018 Hospitalization History [facility]. Mansfi eld Pneuminia 02/2019 [facility] Other Hospital Discharge instructions No data available for this section [facility] No data available for this section [facility] Reason for Referral Status Reason Specialty Diagnoses / Procedures Referre d By Contact Referred To Contact Bonnie Shankar, SENIOR PROCESS ENGINEER-HOME IMPROVEMENT INSTALLER [address] [place] [address] Status Reason Specialty Diagnoses / Procedures Re ferred By Contact Referred To Contact New Request Procedures INPATIENT ADMISSION NOTIFICATION Joaquin Garcia MD [address] [place] [id number] Status Reason Specialty Diagnoses / Procedures Referre d By Contact Referred To Contact Closed Procedures ECG Naida Masters, PAJuan PabloC [address] [place] [address] Status Reason Specialty Diagnoses / Procedures Referred By Contact Referred To Contact Authorized Patient Preference Rehabilitation Diagnoses Acute metabolic encephalopathy Idalia Sims MD [address] [place] [address] Status Reason Specialty Diagnoses / Procedures Referre d By Contact Referred To Contact Closed Radiology Diagnoses Dyspepsia Acute respiratory failure, unspecified whether with hypoxia or hypercapnia (HCC) Procedures XR Modifed Barium Swallow Iftikhar Kemp, DO [address] [place] [address] Discharge Instructions * Discharge Instr - Diet - Brenna Fall RN - 01/08/2018 2:59 PM EST Resume pre-hospital diet As tolerated. * Discharge Instr - Activity - Brenna Fall RN - 01/08/2018 2:58 PM EST Resume pre-hospital activity as tolerated. The following attachments cannot be sent through Care Everywhere. * Benzonatate capsules ([place]orran) * Prednisone tablets ([place]orran) * Levofloxacin tablets ([place]orran) * Adult, Pneumonia ([place]orran) in this encounter* Discharge Instr- IP NEON MOLDER* Idalia Sims MD - 03/01/2019 10:22 AM EST No straws, please follow aspriartion precautions * Discharge Instr - Care Coordination* Ivory Bhatia LISW - 02/25/2019 12:39 PM EST [facility] - [phone] FAX [phone] Mother Edison to transport patient - [phone]. * Attachments The following attachments cannot be sent through Care Everywhere. * Aspiration Pneumonia ([place]orran) documented in this encounter History of Present [...] Status) full weight bearing Home Setting Residence (retirement; mother assists with pt Hx) Lives With other (see comments) (retirement; was home visiting mom when got ill) First floor bed/bathroom yes (all 1 level at retirement) Number of Stairs to Enter Home (0 at retirement; has a couple at mom's house) Number [...] Supine to Sit, Rehab Eval Level of [place]: Supine/Sit other (see comments) (pt found up in chair; assistx1 c ASSISTANT HEAD CASHIER this AM, per mother) Transfer Skill: Sit To Stand, Rehab Eval [place] (Sit-Stand Transfers) contact guard Physical Assist/Nonphysical Assist: Sit/Stand set-up required;verbal cues;1 person assist (line managment needed) Weight-Bearing Restrictions: Sit/Stand full weight-bearing Assistive Device For Transfer: Sit/Stand (CGAx1 with gait belt only) Gait Skills, PT Eval Level of [place]: Gait contact guard Physical Assist/Nonphysical Assist: Gait [...] to medical status) Stair Negotiation Level of [place]: Stair Negotiation (held steps due to pt does not have at retirement) Balance Additional Documentation (sitting = WNL; standing = good-) Sensory Examination Sensory Examination WFL General Interventions Planned Therapy Interventions balance training;bed mobility training;endurance;gait training;neuromuscular re- education;strengthening;transfer training;postural re-education [facility] Basic Mobility Inpatient Short Form Turning [...] 3 - A Little Assistance [facility] Mobility Raw Score 23 [facility] Mobility Functional Limitation/Modifier 11.20% Prior Functional Impairment in Basic Mobility - CI [facility] Basic Mobility Inpatient Short Form Turning [...] 2 - A Lot of Assistance [facility] Mobility Raw Score 18 [facility] Mobility Functional Limitation/Modifier 46.58% Currently Impaired in Basic Mobility - CK [facility] Mobility Raw Score 23 [facility] Mob[facility] Functional Limitation/Modifier 11.20% Projected Functional Impairment in Basic Mobility - CI Assessment Assessment Narrative Pt presents with limited activity tolerance and mild shortness of breath with mobility today related to medical status, and would benefit from skilled PT services during acute care stay to improve mobility tolerance and overall safety with all mobility. Discharge Recommendations pt to return to retirement with HEP Clinical Impression Criteria for Skilled [...] comments) (at this time, anticipating return to retirement with HEP) Plan Plan Narrative pt to be seen 1-2x/day during acute care stay Therapist Information License # [id number] Patient status at end of treatment/response to [...] treatment of this patient is transferred to [facility] Inpatient Physical Therapist following this evaluation. Dixie Alexander, PT, DPT #[id number] Time in: 836 AM Time out: 900 AM Billable time: 24 min Charges: Eval (low complexity) 1@24min Current anticipated discharge recommendation: anticipate pt to return to retirement with HEP Patient demonstrates functional limitation in mobility: walking and moving around at CK 40-60 % impairment as evidenced by AMPA. Anticipated functional limitation status at discharge is CI 1-20 %. 01/07/2018 1:33 PM in this encounter* Damaris Yang LISW - 03/01/2019 10:27 AM EST DISCHARGE PLAN PROGRESS NOTE Date: 03/01/2019 Time: 10:27 AM Patient Name: Fahad Bernabe Date of : 1990 Sex: Male The patient is discharged today back to [facility]. Called the facility and spoke with Emilia. She said [facility]. Faxed the referral and day of discharge bundle to the facility. Please call report to [phone]. Information faxed to [phone]. Patient's mother plans to transport the patient. Case closed at discharge. [facility] Disposition D/C Disposition: Another Health Care Institution Not Defined([facility] care facility.) Agency/Destination: ([facility]) Transportation Type: Auto(Mother, Edison to transport [phone]) Reason for Choice: Currently with agency Anticipated Discharge Plan Anticipated HME: Undetermined * Damaris Yang LISW - 02/28/2019 3:30 PM EST DISCHARGE PLAN PROGRESS NOTE Date: 02/28/2019 Time: 3:31 PM Patient Name: Fahad Bernabe Date of : 1990 Sex: Male Returned a call to [facility] [phone]. Discussed that the plan was to discharge thepatient back to their facility tomorrow. [facility] Disposition D/C Disposition: Another Health Care Institution Not Defined([facility] care facility.) Agency/Destination: ([facility]) Transportation Type: Auto(Mother, Edison to transport [phone]) Reason for Choice: Currently with agency Anticipated Discharge Plan Anticipated HME: Undetermined * Idalia Sims MD - 02/28/2019 1:32 PM EST [facility] Medicine Inpatient Follow-up 02/28/2019 Idalia Sims MD [facility] Patient: Fahad Bernabe Date of : [...] Sims MD - 02/27/2019 3:54 PM EST [facility] Medicine Inpatient Follow-up 02/27/2019 Idalia Sims MD [facility] Patient: Fahad Bernabe Date of : [...] IMAGING: Reviewed 3:57 PM * Patricia Lema, NEON MOLDER - 02/27/2019 8:50 AM EST Speech Pathology [...] Family/caregiver support Explain Environmental Factors: lives in retirement in [place], mother very supportive - pt stays with [...] Assess for diet tolerance, Re-evaluate diet changes NEON MOLDER Caregiver Readiness Working toward discharge home: Yes NEON MOLDER Caregiver Training: Ongoing - Follow up required [...] Laterality Date CARDIAC SURGERY As an infant For complete objective data, detailed plan of [...] Due to speech therapy recommendations this social director contacted Kayleigh at [place]. Carmela reports that she spoke with Lina at [facility] in speech therapy about patient needs.Carmela states that a speech therapist visits [place] weekly and that she is aware that patient would need to be seen. Patient's step father was informed of need for speech therapy as patient's mother (reported guardian) is not available at this time. Patient's mother is home resting and taking a shower, per step father. Patient Information Primary Caregiver: Other (Comment)([facility] - [phone]) Discharge Planning Living Arrangements: Facility Support Systems: Parent, technology manager/social director, Other (Comment)(Mother Edison reports that she is guardian.) Assistance Needed: stand by Type of Residence: shelter Care Facility Name: ([facility] Prior to Admission Home Care Services: No Patient expects to be discharged to:: [facility]. Mother Edison to transport. Does the patient need discharge transport arranged?: No Current Home Equipment: None, Oxygen Anticipated HME: Undetermined Anticipated Discharge Plan Anticipated HME: Undetermined [facility] Disposition D/C Disposition: Another Health Care Institution Not Defined([facility] care facility.) Agency/Destination: ([facility]) Transportation Type: Auto(Mother, Edison to transport [phone]) Reason for Choice: Currently with agency * Idalia Sims MD - 02/26/2019 2:01 PM EST [facility] Medicine Inpatient Follow-up 02/26/2019 Idalia Sims MD [facility] Patient: Fahad Bernabe Date of : [...] CURRENT MEDICATIONS: amoxicillin-clavulanate 1 tablet Oral Q12H RASHEDEA azithromycin 500 mg Intravenous Q24H carBAMazepine 400 [...] IMAGING: Reviewed 2:01 PM * Eda Arriaga, NEON MOLDER - 02/26/2019 10:59 AM EST Speech Pathology [...] Family/caregiver support Explain Environmental Factors: lives in retirement in [place], mother very supportive - pt stays with mother every other weekend Personal Factors: Awareness of own capacity and performance Explain Personal Factors: developmental delays and cognitive deficits, impulsivity Skilled Therapy Needs: dysphagia intervention for pt/caregiver training Recommendations: Provale Cup for volume control, small utensils for bolus portion mgmt NEON MOLDER Caregiver Readiness Working toward discharge home: Yes NEON MOLDER Caregiver Training: Ongoing - Follow up required [...] and optimize control).Stated I put you in nursing home . With emotional support, pt behaviors did [...] flow sheets, Bedside Study Evaluation flow sheets, [facility] Navigator, as well as patient Plan of Care and Education documentation. This note stands as the current Discharge Summary upon patient discharge from the hospital or completion of Speech Pathology Plan of Care * Stuart Mcgrath MD - 02/25/2019 1:00 PM EST [facility] Medicine Inpatient Follow-up 02/25/2019 Stuart Mcgrath MD [facility] Patient: Fahad Bernabe Date of : [...] Mcgrath MD - 02/24/2019 8:12 AM EST Hospital Medicine Inpatient Follow-up 02/24/2019 Stuart Mcgrath MD [facility] Patient: Fahad Bernabe Date of : [...] encephalopathy Respiratory failure (HCC) Acute respiratory failure Advance Directives No Advanced Directives Records FoundDocuments on File Type Date Recorded Patient Painter Helper Spray Expl anation Advance Directives and Livin g Will 02/23/2019 3:14 PM Guardianship Papers 02/23/2019 3:14 PM Latest Code Status on File Code Status Date Activated Date Inactivated Comments Full Code - Unverified 02/23/2019 9:21 PM Documents on File Type Date Recorded Patient Painter Helper Spray Expl anation Advance Directives and Livin g Will 02/23/2019 11:06 PM Guardianship Papers 02/23/2019 3:14 PM Latest Code Status on File Code Status Date Activated Date Inactivated Comments Full Code - Unverified 02/23/2019 9:21 PM Documents on File Type Date Recorded Patient Painter Helper Spray Expl anation Advance Directives and Livin g Will 02/23/2019 11:06 PM Guardianship Papers 02/23/2019 3:14 PM Documents on File Type Date Recorded Patient Painter Helper Spray Expl anation Advance Directives and Livin g Will 07/08/2020 11:06 PM Guardianship Papers 02/23/2019 3:14 PM Guardianship Papers 07/08/2020 12:00 AM Documents on File Type Date Recorded Patient Painter Helper Spray Expl anation Advance Directives and Livin g [...] Date/ Time Advance Directives No December 3:40pm Latest Code Status on File Code Status Date Activated Date Inactivated Comments Full Code 01/06/2018 4:10 PM Hospital Course * Idalia Sims MD - 03/01/2019 10:22 AM EST HOSPITALIST DISCHARGE SUMMARY Patient: Fahad Bernabe Account: [id number] Admitted: 02/23/2019 Discharge Date/Time: 03/01/2019 Clinical Summary [...] for which he is nonadherent. Transferred to [place] for aspiration pneumonia and acute on chronic [...] next recommendation would be for tracheostomy per band tacker Obstructive Sleep Apnea - pt underwent sleep [...] with tracheostomy -Patient to follow-up with his band tacker as an outpatient Acute on Chronic Respiratory [...] Family: Iftikhar Kemp DO, Phone: None, Address: [address] [place] [phone] Follow Up: Iftikhar Kemp DO [address] [facility] [id number] Follow up in 1 week(s) Patient instructions, including activity, were given to the patient/family at discharge. Please seethe After Visit Summary in the medical record for details. Time spent on discharge: Over 45 mins Completed by: Idalia Sims on 03/01/19, 10:22 AM documented in this encounter Summary Purpose Family History No Family History Records Found Relationship Condition Age at Onset Recorded Date/T ester Not Specified Family history unobtainable Unknown Relationship Condition Age at Onset Recorded Date/T ester Not Specified Family history unobtainable Unknown father Malignant neoplasm Unknown Chief Complaint and Reason for Visit Chief Complaint self ref Chief Complaint self ref Obstructive sleep apnea-start w/o O2 & add if need Chief Complaint Obstructive sleep ap viktor-start w/o O2 & add if need results Chief Complaint G47.33 E66.2 I27.20 psg- Chief Complaint Obstructive sleep ap viktor Chief Complaint 6 Month f/u- Pulm HT N Sleep Apnea Reason for Visit Pulmonary hypertensi on Chief Complaint NEW RT DISTAL RADIUS FX Chief Complaint NEW RT DISTAL RADIUS FX S52.509A - Unspecified fracture of the lower end o 2 WEEKS Reason for Visit Distal radius fractu re Distal radius fracture Additional Source Comments Reason for Visit (unrecogniz [...] XR Modifed Barium Swallow Iftikhar Kemp DO [employer] [employer] [place] [address] Reason Comments Consult EGD Reason Comments Choking Mother and patient w as choking on a hotdog at [facility]. Vss. Vicki Coleman RN - 02/23/2019 1:36 PM EST ED Notes (unrecognized secti on and content) Per parent report pt was seen yesterday at another ED yesterday and dx with pneumonia and dc with antibiotics. Pt started having trouble staying awake today. documented in this encounter Holden Whiteside MD - 02/23/2019 9:22 PM EST H&P Notes (unrecognized sect ion and content) [facility] Medicine Inpatient H&P 02/23/2019 Holden Whiteside MD [facility] Patient: Fahad Bernabe Date of : 1990 (28 y.o.) PCP: Iftikhar Kemp, Assessment Fahad Bernabe is a 28 y.o. 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 Patient refuses to wear his CPAP machine for the last year was seen at [place] emergency department due to cough and for unresponsiveness. Patient was diagnosed yesterday at [facility] emergency department with a pneumonia and was [...] for the last year was seen at [place] emergency department due to cough and for unresponsiveness. Patient was diagnosed yesterday at [facility] emergency department with a pneumonia and was started on antibiotics. Patient is a resident of a [facility] in [place]. His mother went to pick him up [...] PM documented in this encounter Eda Arriaga, NEON MOLDER - 02/25/2019 10:00 AM EST Procedure Notes (unrecognize d section and content) Procedure(s): NEON MOLDER MODIFIED BARIUM SWALLOW Pre-Procedure Diagnose(s): Dysphagia, unspecified type Post-Procedure Diagnose(s): Oropharyngeal dysphagia [facility] Speech Language Pathology Modified Barium Swallow [...] Explain Environmental Factors supportive mother, lives in retirement in [facility] lives in retirement in [place], mother very supportive - pt stays with [...] 23 Down syndrome currently a resident of [facility], presenting with hypoxic respiratory failure CO2 narcosis and sleep apnea. Neurology was consulted by the primary team for evaluation of neurological causes of encephalopathy. He lives at the [facility] but is being checked on by [...] at this time given his improvement. DAMIAN GRIGSBY MSc, . [email or web address] Staff Neurologist & Movement Disorder Specialist [facility] (Adj Asst: Professor, [employer] Dept of Neurology) Jany CamposflorenceCRISTOBAL Gonzalez [facility]# [id number], [facility] [address] Clinic (Appointments) Fax: [phone] Attestation: Time statement: A total of 50 minutes were spent on this encounter either in the patient's room or on the patient's hospital unit and over half of that time was spent on [id number] counseling and/or coordination of care. This note was dictated using Identia, a speech-recognition software. Syntax errors and sound-alike substitutions which may escape proofreading could be present. In such instances, the actual meaning can be extrapolated from the context. Associated Order(s): IP CONSULT TO PULMONOLOGY PULMONOLOGY CONSULT 02/26/2019 Patient: Fahad Bernabe Date of : 1990 Site: [facility] Referring Provider: Refer to consult order in electronic medical record Provider: Kathryn Lawrence CNP ASSESSMENT/PLAN: Fahad Bernabe 28 y.o. male with history of Down syndrome, ADHD, Depression, Hypothryoidism, OCD, Seizures, open heart surgery for childhood ASD/VSD, HTN, aspiration pneumonia, obstructive sleep apnea on CPAP for which he is nonadherent. Transferred to [place] for aspiration pneumonia and acute on chronic [...] is a 28 y.o. male presenting from [facility] with complaint of lethargy and was evaluated at [facility] where he was diagnosed with Pneumonia and discharged home with antibiotics. Mother took patient home with her that evening and presents to [place] ED the following day for worsened lethargy, fever, and cough. B/L interstitial edema noted and patient transferred to [place] for respiratory failure. Pt with history of [...] December. Patient not able to contribute to [place] or ROS. Information obtained from mother and [...] Procedure Laterality Date CARDIAC SURGERY As an History reviewed. No pertinent family history. Social [...] tablet 1 tablet 1 tablet Oral Q12H [facility] Idalia Sims MD 1 tablet at 02/26/19 [...] bedtime Dafne Whiteside MD 1,000 mg at 02/25/192024 divalproex (DEPAKOTE ER) 24 hr tablet 250 mg 250 mg Oral BID Dafne Whiteside MD 250 mg at 02/26/19 1153 divalproex (DEPAKOTE ER) 24 hr tablet 500 mg 500 mg Oral BID Dafne Whiteside MD 500 mg at 02/26/19 1150 enoxaparin (LOVENOX) syringe 40 mg 40 mg Subcutaneous BID Monroe Duong [facility]arm[facility] famotidine (PEPCID) tablet 20 mg 20 mg [...] 4 mg 4 mg Intravenous Q6H PRN Hloden Whiteside MD polyethylene glycol (MIRALAX) powder 17 [...] 30 mg 30 mg Oral Daily Holden Rose Whiteside MD 30 mg at 02/26/19 0838 [...] Sex: Male Patient Information Primary Caregiver: Other (Comment)([facility] - [phone]) Initial assessment completed with patient's mother, Edison. Patient was present during assessment. Patient's mother Edison reports that she is patient's guardian. This social director requested that Edison bring in a copy of guardianship paperwork for patient's chart. Edison reports that patient resides at [facility], which is a care center for [facility]. Patient does need 24 hour supervision due to flight risk. PING Hendricks is aware and reports that a break away alarm is placed on patient. This social director contacted Pavithra at [facility]. Pavithra reports that patient can return at discharge. Pavithra informed that Edison plans to transport patient when patient is ready for discharge. Pavithra reports that patient was on 2 liters of oxygen at night while at [place]. Pavithra requested discharge paperwork when patient is discharged from the hospital. [place] [phone] FAX [phone]. Discharge Planning Living Arrangements: Facility Support Systems: Parent, technology manager/social director, Other (Comment)(Mother Edison reports that she is guardian.) Assistance Needed: stand by Type of Residence: shelter Care Facility Name: ([facility] Prior to Admission Home Care Services: No Patient expects to be discharged to:: [facility]. Mother Edison to transport. Does the patient need discharge transport arranged?: No Current Home Equipment: None, Oxygen Anticipated HME: Undetermined Anticipated Discharge Plan Anticipated HME: Undetermined [facility] Disposition D/C Disposition: Another Health Care Institution Not Defined([facility] Agency/Destination: ([facility]) Transportation Type: Auto(Mother, Edison to transport [phone]) Reason for Choice: Currently with agency Speech Pathology Bedside Swallow Evaluation Recommended Diet: PO Recommendations: Regular, Thin liquid Fahad Brenda Bernabe was seen for initial BSE. Pt [...] Explain Environmental Factors: supportive mother, lives in retirement in [facility] Personal Factors: Awareness of own capacity and performance Explain Personal Factors: premorbid cognitive deficits Skilled Therapy Needs: Anticipate Resolution of Current Assessment Limitations Including: (acute pulmonary deficit) Are Skilled Therapy Services Needed After Discharge: Yes Intensity of Skilled Therapy: (to be determined per MBS) Anticipated Duration of Skilled Therapy: (pending MBS) NEON MOLDER Caregiver Readiness Working toward discharge home: Yes NEON MOLDER Caregiver Training: Ongoing - Follow up required [...] 12:03 PM [facility]ariance [facility] - Patricia Lema SLP - 02/27/2019 2:30 PM EST Miscellaneous Notes [...] Assessment: Pertinent clinical information: Downs Syndrome from [facility] Past Medical History: Diagnosis Date ADHD Bipolar [...] Estimated Needs: 1800-2000cal Method for Estimating Needs: [id number] Total Protein Estimated Needs: 79gms Method for [...] and instructions Outcome: Met Possible discharge to [facility] tomorrow. Problem: Falls, Risk of Goal: [...] Patient with bathroom needs per mother at [facility]. Will follow up as appropriate. Associated Problem(s): [...] discharge order. Care management consulted. Patient from [facility] in [place]. Problem: Pain Goal: Manage acute pain Outcome: [...] Active Thiago Chandler MD Attending Provider Active Computer Systems Engineer Relationship Specialty Start Date End Date Iftikhar Kemp DO [address] [address] PCP - General Endocrinology/Metabolism 02/23/19 Team Status: Inactive Member Role Status Dates Iftikhar Kemp DO Primary Care Provider Active Start: May 03, 2023 End: May 03, 2023 Martha Richmond APRN ACNP-BC Attending Provider Active Start: May 03, 2023 End: May 03, 2023 DME Active Start: May [id number] End: May 03, 2023 Computer Systems Engineer Relationship Specialty Start Date End Date Iftikhar Kemp DO [address] [place] [address] PCP - General Family Medicine 05/27/23 Team Status: Inactive Member Role Status Dates Iftikhar Kemp DO Primary Care Provider Active Start: September 07, 2023 End: September 07, 2023 Fahad Echavarria MD Attending Provider Active Star t: September 07, 2023 End: September 07, 2023 Team Status: Active Member Role Status Dates Fahad Echavarria MD Attending Provider Active Star t: September 21, 2023 Iftikhar Kemp DO Primary Care Provider Active Start: September 21, 2023 Team Status: Inactive Member Role Status Dates Iftikhar Kemp DO Primary Care Provider Active Start: September 21, 2023 End: September 21, 2023 Fahad Echavarria MD Attending Provider Active Star t: September 21, 2023 End: September 21, 2023 Team Status: Inactive Member Role Status Dates Fahad Echavarria MD Attending Provider Active Star t: September 21, 2023 End: September 21, 2023 Iftikhar Kemp DO Primary Care Provider Active Start: September 21, 2023 End: September 21, 2023 (unrecognized sect ion and content) No Status Records FoundNo Status Records FoundNo Status Records FoundNo Status Records FoundNo Status Records FoundNo Status Records FoundNo Status Records FoundNo Status Records Found INFORMATION SOURCE (unrecogn ized section and content) DATE CREATED AUTHOR 05/28/2021 [facility] DATE CREATED AUTHOR AUTHOR'S ORGANIZ ATION 05/28/2021 [facility] DATE CREATED AUTHOR AUTHOR'S ORGANIZ ATION 06/05/2021 [facility] DATE CREATED AUTHOR AUTHOR'S ORGANIZ ATION 09/28/2021 [facility] DATE CREATED AUTHOR AUTHOR'S ORGANIZ ATION 05/23/2022 [facility] DATE CREATED AUTHOR AUTHOR'S ORGANIZ ATION 06/01/2023 [facility] DATE CREATED AUTHOR AUTHOR'S ORGANIZ ATION 07/14/2023 [facility] DATE CREATED AUTHOR AUTHOR'S ORGANIZ ATION 09/24/2023 [facility] Goals (unrecognized section and content) Goals may be documented in a n alternate section Scheduled Active and Recently Administ ered Medications (unrecognized section and content) Medication Order 05/25/2023 05/26/2023 05/27/2023 glucagon (GLUCAGEN) injection 2 mg (COMPLETED) 2 mg, Intravenous, ONCE, 1 dose, On 05/27/23 at 1430 1417 (Given - Provid er: Ava Vega RN) Metoclopramide (REGLAN) injection 10 mg (COMPLETED) 10 mg, Intravenous, ONCE, 1 dose, On 05/27/23 at 1430, If given via IV route: administer slowly over 2 minutes. 1417 (Given - Provid er: Ava Vega RN) nitroGLYCERIN (NITROSTAT) tablet SL 0.4 mg (COMPLETED) 0.4 mg, Sublingual, ONCE, 1 dose, On 05/27/23 at 1545, Maximum of three consecutive doses in 15 minutes. Do not chew, crush, or swallow sublingual tablet. Place under tongue and allow to dissolve. Alternately, may be placed in the buccal pouch. 1517 (Given - Provid er: Neda Marks RN - Comment: [id number]%-18) FOR RECORDS PERTAINING TO PATIENTS WHO ARE [...] BE BASED ON THE PRIMARY CLINICAL RECORDS. [facility]. provides no warranty or guarantee of the accuracy or completeness of information in this document.
[2023-10-21 12:29] LABS: INR 1.05; Prothrombin Time 11.1 sec (9.0-11.6)
[2023-10-21] MEDS: IPRATROPIUM/ALBUTEROL SULFATE 3 ML AMPUL.NEB IH (12:40)
[2023-10-21 12:52] LABS: Alanine Aminotransferase 19 U/L (16-63); Albumin Globulin Ratio 0.5; Albumin Level 2.5 g/dL (3.4-5.0); Alkaline Phosphatase 76 U/L (46-116); Aspartate Amino Transferase 14 U/L (15-37); BUN Creatinine Ratio 9.6; Bilirubin Total 0.4 mg/dL (0.2-1.0); Calcium 9.2 mg/dL (8.5-10.1); Carbon Dioxide 36.6 mmol/L (21.0-32.0); Chloride 102 mmol/L (98-107); Estimated GFR (African America 51 (>=60); Estimated GFR (Non-African Ame 42 (>=60); Globulin 4.9 g/dL; Glucose 113 mg/dL (74-106); Potassium 3.6 mmol/L (3.5-5.1); Sodium 142 mmol/L (136-145); Total Protein 7.4 g/dL (6.4-8.2); Troponin I High Sensitivity 28.4 pg/mL (4.0-76.1)
[2023-10-21 13:07] LABS: Lactate/Lactic Acid 3.6 mmol/L (0.4-2.0)
[2023-10-21 13:14] LABS: Basophils Percent Auto 0.2 % (0.2-2.0); Hematocrit 38.8 % (42.0-54.0); Hemoglobin 12.7 g/dL (14.0-18.0); Immature Granulocytes Abs Auto 0.05 10^3/uL (0.00-0.03); Immature Granulocytes Pct Auto 0.3 % (0.0-0.5); Lymphocytes Absolute Auto 0.9 10^3/uL (1.2-3.8); Lymphocytes Percent Auto 5.5 % (20.5-60.0); Mean Corpuscular HGB Conc 32.7 g/dL (29.9-35.2); Mean Corpuscular Hemoglobin 33.6 pg (25.9-34.0); Mean Corpuscular Volume 102.6 fL (80.0-94.0); Mean Platelet Volume 9.8 fL (9.5-13.5); Monocytes Absolute Auto 1.1 10^3/uL (0.3-0.8); Monocytes Percent Auto 6.8 % (1.7-12.0); Neutrophils Absolute Auto 13.9 10^3/uL (1.4-6.5); Neutrophils Percent Auto 87.2 % (43.0-75.0); Platelet Count 216 10^3/uL (150-450); Red Blood Count 3.78 10^6/uL (4.70-6.10); Red Cell Distribution Width 13.1 % (11.0-15.0)
--- NOTE | 2023-10-21 13:37 | ED.SOB1 ---
HPI - SOB/Dyspnea General Chief Complaint: Shortness of Breath/Dyspnea Stated Complaint: COVID + SOB Time Seen by Provider: 10/21/23 11:29 Source: caregiver Mode of arrival: ambulance Limitations: language barrier History of Present Illness HPI Narrative: The patient is a 33-year-old male with history of Down syndrome presenting to us from a disability caring facility after he was diagnosed yesterday with COVID-19 with complaint of shortness of breath. The patient by the time that EMS arrived he was saturating 89% and having bilateral expiratory wheezes he received 1 breathing treatment before arrival that was enough to raise him up to the upper 90s. The patient is nonverbal although he does say yes or no sometimes to some questions. The patient was not showing distress although he was sleepy upon arrival, he did not complain of any pain but complaining of shortness of breath The patient also had a fever upon arrival Related Data Home Medications ?Medication ?Instructions ?Recorded ?Confirmed acetaminophen 325 mg capsule 325 mg PO Q4H PRN 04/08/23 04/08/23 albuterol sulfate 2.5 mg/3 mL 2.5 mg continuous nebulization Q6H 04/08/23 04/10/23 (0.083 %) solution for nebulization PRN shortness of breath or wheezing bacitracin zinc 500 unit/gram 1 applic topical TID Boils 04/08/23 04/10/23 topical ointment benzoyl peroxide 5 % topical 1 applic topical Q12H 04/08/23 04/10/23 cleanser bisacodyl 10 mg rectal suppository 10 mg TX DAILY 04/08/23 04/08/23 (Laxative (bisacodyl)) carbamazepine 200 mg tablet 200 mg PO 0800,199904/08/23 04/08/23 chlorpromazine 10 mg tablet 10 mg PO 0800 04/08/23 04/08/23 chlorpromazine 25 mg tablet 25 mg PO 1600 04/08/23 04/08/23 chlorpromazine 50 mg tablet 50 mg PO 199904/08/23 04/08/23 clindamycin phosphate 1 % lotion 1 applic topical .qd 04/08/23 04/10/23 clonidine HCl 0.2 mg tablet 0.2 mg PO .0800,1200, 199904/08/23 04/08/23 dihydroxyaluminum sodium carb 334 334 mg PO BID PRN upset stomach 04/08/23 04/10/23 mg chewable tablet divalproex 250 mg tablet,delayed 500 mg PO 0800 04/08/23 04/08/23 release divalproex 500 mg tablet,delayed 500 mg PO 2000 04/08/23 04/08/23 release famotidine 20 mg tablet 20 mg PO 1200 04/08/23 04/08/23 furosemide 20 mg tablet 20 mg PO BID 04/08/23 04/08/23 gabapentin 100 mg capsule 100 mg PO TID 04/08/23 04/08/23 ketoconazole 2 % shampoo 1 applic topical .qd 04/08/23 04/10/23 ketoconazole 2 % topical cream 1 applic topical DAILY 04/08/23 04/08/23 levothyroxine 150 mcg tablet 150 mcg PO DAILY 04/08/23 04/08/23 lithium carbonate 300 mg capsule 300 mg PO BEDTIME 04/08/23 04/08/23 loperamide 2 mg capsule 2 mg PO QID 04/08/23 04/08/23 loratadine 10 mg tablet 10 mg PO DAILY 04/08/23 04/08/23 lorazepam 2 mg tablet 2 mg PO BEDTIME 04/08/23 04/08/23 montelukast 10 mg tablet 10 mg PO .once daily 04/08/23 04/08/23 ondansetron 4 mg disintegrating 4 mg PO Q6H 04/08/23 04/08/23 tablet risperidone 1 mg tablet 1 mg PO TID 04/08/23 04/08/23 sennosides 8.6 mg tablet (senna) 8.6 mg PO BID 04/08/23 04/08/23 sulfacetamide sodium 10 % topical 1 applic topical DAILY 04/08/23 04/08/23 cleanser, gel sulfacetamide sodium 10 % topical 1 applic topical DAILY 04/08/23 04/08/23 cleanser, gel tacrolimus 0.1 % topical ointment 1 applic topical BID 04/08/23 04/08/23 vilazodone 20 mg tablet 20 mg PO .morning 04/08/23 04/08/23 vitamin B complex 1 cap PO .qd 04/08/23 04/10/23 Previous Rx's ?Medication ?Instructions ?Recorded amoxicillin 500 mg-potassium 1 tab PO BID 7 days #14 tabs 04/11/23 clavulanate 125 mg tablet (Augmentin) benzonatate 100 mg capsule 100 mg PO TID PRN Cough #0 caps 04/11/23 guaifenesin 400 mg tablet (Chest 400 mg PO BID PRN Congestion #0 04/11/23 Congestion Relief) tabs Allergies Allergy/AdvReac Type Severity Reaction Status Date / Time naproxen AdvReac Verified 04/08/23 14:43 Review of Systems ROS Status of ROS 10 or more systems reviewed and unremarkable except as noted in history and below [facility] Medical History (Updated 10/21/23 @ 13:41 by Meghan Fuentes MD) Pulmonary hypertension ?I27.20 - Pulmonary hypertension, unspecified (ICD-10) Pickwickian syndrome ?E66.2 - Morbid (severe) obesity with alveolar hypoventilation (ICD-10) Chronic constipation ?K59.09 - Other constipation (ICD-10) Eczema ?L30.9 - Dermatitis, unspecified (ICD-10) Sleep apnea ?G47.30 - Sleep apnea, unspecified (ICD-10) Dyspepsia ?R10.13 - Epigastric pain (ICD-10) Obsessive compulsive disorder ?F42.9 - Obsessive-compulsive disorder, unspecified (ICD-10) Bipolar 1 disorder ?F31.9 - Bipolar disorder, unspecified (ICD-10) Hypothyroid ?E03.9 - Hypothyroidism, unspecified (ICD-10) 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 General: Well-appearing and in no apparent distress. Skin: Warm, dry, no pallor noted. No rash. Head: Normocephalic, atraumatic. Neck: Supple, non-tender. Eye: Pupils are equal, round and EOMI. No scleral icterus. Ears, Nose, Mouth, and Throat: TM are clear, no nasal mucosal hypertrophy. Oral mucosa is moist, no posterior oropharynx erythema, uvula is mid-line Cardiovascular: Regular Rate and Rhythm without murmur, gallop or rub. Respiratory: No accessory muscle use or respiratory distress. Lungs bilateral expiratory lung wheezes in both lung batista Chest Wall: no tenderness Back: No midline thoracic or lumbar vertebral tenderness. No CVA tenderness Musculoskeletal: normal ROM, no calf or popliteal tenderness, no lower extremity edema/swelling GI: Abdomen is soft, non-distended. Normal bowel sounds. No masses appreciated. No tenderness to palpation. No rebound, guarding, or rigidity noted. Neurological: Nonverbal, no cranial nerve dysfunction observed. Constitutional Vital Signs, click to edit/add: Last Vital Signs Temp 99.9 F 10/21/23 13:16 Pulse 101 H 10/21/23 13:00 Resp 10/21/23 13:00 BP 99/70 10/21/23 13:09 Pulse Ox 94 L 10/21/23 13:00 O2 Del Method Nasal Cannula 10/21/23 12:49 O2 Flow Rate 3 10/21/23 12:49 Course Vital Signs Vital signs: Vital Signs Temperature 101.1 F H 10/21/23 11:13 Pulse Rate 101 H 10/21/23 11:13 Respiratory Rate 24 H 10/21/23 11:13 Blood Pressure 110/51 10/21/23 11:13 Pulse Oximetry 94 L 10/21/23 11:13 Oxygen Delivery Method Room Air 10/21/23 11:13 Temperature 99.9 F 10/21/23 13:16 Pulse Rate 101 H 10/21/23 13:00 Respiratory Rate 19 10/21/23 13:00 Blood Pressure 99/70 10/21/23 13:09 Pulse Oximetry 94 L 10/21/23 13:00 Oxygen Delivery Method Nasal Cannula 10/21/23 12:49 Oxygen Delivery Flow Rate 3 10/21/23 12:49 MDM - SOB/Dyspnea MDM Narrative Medical decision making narrative: Upon arrival the patient ready received a breathing treatment initially, he was provided with a second breathing treatment because he was still wheezing He was not using accessory muscle at any time but it was noted when the patient is sleeping pulse ox dropped to the lower 80s, the patient supposed to wear CPAP machine at night, because of his sleep apnea The patient upon arrival had fever he was provided with Tylenol He had a EKG that showing sinus rhythm with a heart rate of [address] elevation or depression The patient blood workup needed to be redone as it was initially hemolyzed specially with the patient not being that cooperative with the blood draw The patient first lactic was 3.5 but could be underlying hemolysis, specially that the patient is not tachycardic except for mildly with a fever The patient had 1 L IV fluids started had a blood culture obtained and started on azithromycin and ceftriaxone Chest x-ray still pending The patient case discussed with Dr Field and he agreed on admitting the patient with the above-mentioned plan Lab Data Labs: Lab Results 10/21/23 10/21/23 Range/Units 11:23 13:05 WBC 16.0 H (4.0-11.0) 10^3/uL RBC 3.78 L (4.70-6.10) 10^6/uL Hgb 12.7 L (14.0-18.0) g/dL Hct 38.8 L (42.0-54.0) % MCV 102.6 H (80.0-94.0) fL MCH 33.6 (25.9-34.0) pg MCHC 32.7 (29.9-35.2) g/dL RDW 13.1 (11.0-15.0) % Plt Count 216 (150-450) 10^3/uL MPV 9.8 (9.5-13.5) fL Neut % (Auto) 87.2 H (43.0-75.0) % Lymph % (Auto) 5.5 L (20.5-60.0) % Stark % (Auto) 6.8 (1.7-12.0) % Eos % (Auto) 0.0 L (0.9-7.0) % Baso % (Auto) 0.2 (0.2-2.0) % Neut # (Auto) 13.9 H (1.4-6.5) 10^3/uL Lymph # (Auto) 0.9 L (1.2-3.8) 10^3/uL Stark # (Auto) 1.1 H (0.3-0.8) 10^3/uL Eos # (Auto) 0.0 (0.0-0.7) 10^3/uL Baso # (Auto) 0.0 (0.0-0.1) 10^3/uL Abs Immat Gran (auto) 0.05 H (0.00-0.03) 10^3/uL Imm/Tot Granulo (auto) 0.3 (0.0-0.5) % PT 11.1 (9.0-11.6) sec INR 1.05 Sodium 142 (136-145) mmol/L Potassium 3.6 (3.5-5.1) mmol/L Chloride 102 (98-107) mmol/L Carbon Dioxide 36.6 H (21.0-32.0) mmol/L Anion Gap 7.0 BUN 18.0 (7.0-18.0) mg/dL Creatinine 1.88 H (0.70-1.30) mg/dL Est GFR ( Amer) 51 L (>=60) Est GFR (Non-Af Amer) 42 L (>=60) BUN/Creatinine Ratio 9.6 Glucose 113 H (74-106) mg/dL Lactate 3.6 H* (0.4-2.0) mmol/L Calcium 9.2 (8.5-10.1) mg/dL Magnesium 2.0 (1.8-2.4) mg/dL Total Bilirubin 0.4 (0.2-1.0) mg/dL AST 14 L (15-37) U/L ALT 19 (16-63) U/L Alkaline Phosphatase 76 (46-116) U/L Troponin I High Sens 28.4 (4.0-76.1) pg/mL Total Protein 7.4 (6.4-8.2) g/dL Albumin 2.5 L (3.4-5.0) g/dL Globulin 4.9 g/dL Albumin/Globulin Ratio 0.5 Discharge Plan Discharge Chief Complaint: Shortness of Breath/Dyspnea Clinical Impression: COVID-19, Pneumonia Patient Disposition: Admitted As Inpatient Time of Disposition Decision: 13:41
[2023-10-21] MEDS: CEFTRIAXONE 1,000 MG in 0.9 % SODIUM CHLORIDE 50 ML 100 MG IV (13:51)
[2023-10-21] MEDS: 0.9 % SODIUM CHLORIDE 1,000 ML 1000 ML IV (13:51)
[2023-10-21 14:25] LABS: Lactate/Lactic Acid 1.8 mmol/L (0.4-2.0)
--- OUTSIDE RECORDS SUMMARY | 2023-10-21 14:39 | XMS_ITS | CCD ---
Author Organization [facility] Care Team Providers Care Pencil Inspector Name Role Phone Unavailable Unavailable Unavailable Kemp, Iftikhar A Primary Care Provider Unavaila ble Kemp, Iftikhar A Primary Care Provider [phone] Iftikhar Kemp DO Primary Care Provider FRANCK [...] Care Provider MD Thiago Chandler Attending Provider [phone] Unavailable Primary Care Provider Unavailabl e PROVIDER, UNKNOWN Admitting Unavailable PROVIDER, UNKNOWN Attending Unavailable PROVIDER, UNKNOWN Admitting Unavailable PROVIDER, UNKNOWN Attending Unavailable Kemp, DO Iftikhar A Primary Care Provider Martha Richmond Unavailable KempDO Buitrago A Primary Care Provider [phone] MD Thiago Chandler Attending Provider KempDO Iftikhar patrick A Primary Care Provider [...] Attending Unavailable MD Fahad Echavarria Attending Provider [phone] DO Iftikhar Kemp Primary Care Provider Iftikhar Kemp Primary Care Unavailable OleFahad sandhu Attending Unavailable Olexa, Fahad Admitting Unavailable Kemp, Iftikhar A Primary Care Unavailable Thiago Chandler Attending Unavailable Thiago Chnadler Admitting Unavailable Allergies Allergy Classification Reported Allergen(s) Allergy Type Date of Onset Reaction(s) Facility NSAIDs (1 source) Naproxen Drug Allergy 8 [facility] (20 sources) Naproxen; Translations: [NAPROXEN] Drug Allergy 8 [facility] Work Phone: (8 sources) Seasonal allergy Propensity to adverse reactions 3 Unknown, Unknown Reaction [facility] (1 source) Naproxen Drug Allergy [facility] (4 sources) Non-steroidal anti-inflammato ry agent; Translations: [NSAIDs] Drug allergy [facility] [place] (4 sources) Salicylic Acid; Translations: [salicylates] Drug Allergy [facility] [place] (1 source) Naproxen Drug Allergy 0 [facility] Repository Medications Current Medications Medication Drug [...] Active 0 .Route April 25, 2023 12:00am [employer] Start: 04-25-2023 Cpap (Continuo us Positive Airway Pressure) Active 0 .ROUTE April 25, 2023 12:00am [employer] CPAP Machine (4 sources) CPAP Machine aut [...] 2019 10:10am take 1 capsule by mo [facility] every twenty-four hours Gabapentin 100 MG 1 [...] 01-06-2018 take 125 ug by mouth once rati y 125 mcg, Oral, DAILY, First dose [...] take 1 capsule by mouth once daily [place] Carbonate Active 300 MG PO Daily April 25, 2023 12:00am [employer] capsule Orally Once a day; Note: Source Status: Taking; Provider: Ramesh Das ( ) Start: 02-23-2019 End: 03-01-2019 take 300 mg by mouth once daily 300 mg, Oral, Nightly, First dose on 02/23/19 at 2230 Start: 12-31-2018 End: 02-22-2019 take 300 mg by mouth once daily at bedtime [place] Carbonate Discontinued 300 MG PO Daily at [...] .Route April 25, 2023 12:00am 3 liters [facility] [employer] Start: 04-25-2023 Oxygen Active 0 .ROUTE April 25, 2023 12:00am 3 liters [facility] [employer] Oxygen 3 liters (4 sources) Oxygen 3 [...] Status: Ordered take 4 tablets by mo [facility] at bedtime divalproex [address] [...] 12-31-2018 End: 02-22-2019 Biscolax Discontinued 10 MG RI Daily December 31, 2018 4:21pm February 22, 2019 10:10am Start: 12-31-2018 End: 02-22-2019 Biscolax Discontinued 10 MG RI Daily December 31, 2018 12:00am February 22, 2019 9:10am Start: 12-31-2018 End: 02-22-2019 Biscolax Discontinued 10 MG RI Daily December 31, 2018 1:00am February 22, [...] times daily. Active take 1 capsule by [facility] every twelve hours carBAMazepine ER 200 MG [...] Ordered docusate sodium 50 mg / sennosides, intermediate 8.6 mg oral tablet (1 source) Start: [...] MIXTURE given to patient. polyethylene glycol 3350 04277 mg powder for oral solution (4 sources) [...] RT 2Von 09-21-2023 XR wrist RT 2V [facility] [address] [address] XRay Report Signed Patient: Fahad Bernabe MR#: [id number] : 1990 Acct:[id number] Age/Sex: 33 / M ADM Date: 09/21/23 [place] [facility] [place]: Type: [facility] Attending Dr: Fahad Echavarria MD Copies [...] Kristal Reyes M.D.09/21/2023 3:45 PM Dictation Location: [place] [address] Transcribed By: [facility] 09/21/23 1545 Dictated By: Kristal Reyes MD 09/21/23 1542 Signed By: 09/21/23 1545 Normal The Count Includes [facility] Physician Orderon 07-13-2023 Physician Order [id number] 364#1.00TIFF [facility] Consent for Treatmenton 06-14 Consent for Treatment [id number] 8#1.00TIFF [facility] Consent for Treatment [id number] 1A#1.00TIFF [facility] Physician Orderon 07-04-2023 Physician Order [id number] 6#1.00TIFF Normal [facility] XR Adult Swallowing Function w/ Videoon 07-04-2023 [...] mGy = 5.70 DAP = 134.69 Normal [facility] Physician Orderon 06-06-2023 Physician Order [id number] DA#1.00TIFF Normal [facility] CBCon 05-27-2023 ABSOLUTE BAS 0.1 10*3/uL Normal 0.0-0.2 [facility] Comment on above: Result Comment: Test ing performed at [place] [address] Performed By: #### A CBC, CHEM7F #### [place] [address] ABSOLUTE EOS 0.1 10*3/uL Normal 0.0-0.7 [facility] Comment on above: Performed By: #### A CBC, CHEM7F #### Testing performed at [address] [address] ABSOLUTE NEUTROPHIL COUNT 4.0 10*3/uL Normal 1.4-6.5 [facility] Comment on above: Performed By: #### A CBC, CHEM7F #### Testing performed at [place] [id number] Basophils/100 WBC (Bld) 1.0 % Normal 0.0-2.0 [facility] Comment on above: Performed By: #### A CBC, CHEM7F #### Testing performed at [place] [address] DTYPE AUTO DIFF Normal [facility] Comment on above: Performed By: #### A CBC, CHEM7F #### Testing performed at [place] [address] Eosinophils/100 WBC (Bld) 0.8 % Normal 0.0-11.0 [facility] Comment on above: Performed By: #### A CBC, CHEM7F #### Testing performed at [address] [address] Lymphocytes (Bld) [#/Vol] 2.0 10*3/uL Normal 1.2-3.4 [facility] Comment on above: Performed By: #### A CBC, CHEM7F #### Testing performed at [address] [address] Lymphocytes/100 WBC (Bld) 29.5 % Normal 20.0-55.0 [facility] Comment on above: Performed By: #### A CBC, CHEM7F #### Testing performed at [place] [address] Monocytes (Bld) [#/Vol] 0.5 10*3/uL Normal 0.0-0.7 [facility] Comment on above: Performed By: #### A CBC, CHEM7F #### Testing performed at [address] [address] Monocytes/100 WBC (Bld) 8.2 % Normal 0.0-10.0 [facility] Comment on above: Performed By: #### A CBC, CHEM7F #### Testing performed at [address] [address] Neutrophils/100 WBC (Bld) 60.5 % Normal 37.0-75.0 [facility] Comment on above: Performed By: #### A CBC, CHEM7F #### Testing performed at [address] [address] Erythrocyte distribution width (RBC) [Ratio] 14.6 % High 11.5-14.5 [facility] Comment on above: Performed By: #### A CBC, CHEM7F #### Testing performed at [address] [address] Hematocrit (Bld) [Volume fraction] 40.2 % Low 42.0-52.0 [facility] Comment on above: Performed By: #### A CBC, CHEM7F #### Testing performed at [address] [address] Hemoglobin (Bld) [Mass/Vol] 13.1 g/dL Low 14.0-18.0 [facility] Comment on above: Performed By: #### A CBC, CHEM7F #### Testing performed at [address] [address] MCH (RBC) [Entitic mass] 33.5 pg Normal 26.0-35.0 [facility] Comment on above: Performed By: #### A CBC, CHEM7F #### Testing performed at [address] [address] MCHC (RBC) [Mass/Vol] 32.7 g/dL Normal 27.0-37.0 [facility] Comment on above: Performed By: #### A CBC, CHEM7F #### Testing performed at [address] [address] MCV (RBC) [Entitic vol] 102.5 fL High 80.0-100.0 A [facility] Comment on above: Performed By: #### A CBC, CHEM7F #### Testing performed at [address] [address] Platelet mean volume (Bld) [Entitic vol] 7.0 fL Low 7.4-11.0 [facility] Comment on above: Performed By: #### A CBC, CHEM7F #### Testing performed at [address] [address] Platelets (Bld) [#/Vol] 280 10*3/uL Normal 130-400 [facility] Comment on above: Performed By: #### A CBC, CHEM7F #### Testing performed at [place] [id number] RBC (Bld) [#/Vol] 3.92 10*6/uL Low 4.0-6.1 [facility] Comment on above: Performed By: #### A CBC, CHEM7F #### Testing performed at [place] [address] WBC (Bld) [#/Vol] 6.7 10*3/uL Normal 3.6-11.0 [facility] Comment on above: Performed By: #### A CBC, CHEM7F #### Testing performed at [address] [address] CBC, EDIF, PLATELETon 2023 ABSOLUTE BASOPHIL COUNT 0.1 10*3/uL 0.0 - 0.2 10*3/uL [facility] Comment on above: Testing performed at [place] [id number] Basophils/100 WBC (Bld) 1.0 % 0.0 - 2.0 % [facility] Differential cell count method Nom (Bld) AUTO DIFF % [facility] Eosinophils (Bld) [#/Vol] 0.1 10*3/uL 0.0 - 0.7 10*3/uL [facility] Eosinophils/100 WBC (Bld) 0.8 % 0.0 - 11.0 % [facility] Erythrocyte distribution width (RBC) [Ratio] 14.6 % High 11.5 - 14.5 % [facility] Hematocrit (Bld) [Volume fraction] 40.2 % Low 42.0 - 52.0 % [facility] Hemoglobin (Bld) [Mass/Vol] 13.1 g/dL Low [facility] Interpretation and review of laboratory results Abnormal [facility] Lymphocytes (Bld) [#/Vol] 2.0 10*3/uL 1.2 - 3.4 10*3/uL [facility] Lymphocytes/100 WBC (Bld) 29.5 % 20.0 - 55.0 % [facility] MCH (RBC) [Entitic mass] 33.5 pg 26.0 - 35.0 PG [facility] MCHC (RBC) [Mass/Vol] 32.7 g/dL [facility] MCV (RBC) [Entitic vol] 102.5 fL High A [facility] Monocytes (Bld) [#/Vol] 0.5 10*3/uL 0.0 - 0.7 10*3/uL [facility] Monocytes/100 WBC (Bld) 8.2 % 0.0 - 10.0 % [facility] Neutrophils (Bld) [#/Vol] 4.0 10*3/uL 1.4 - 6.5 10*3/uL [facility] Neutrophils/100 WBC (Bld) 60.5 % 37.0 - 75.0 % [facility] Platelet mean volume (Bld) [Entitic vol] 7.0 fL Low [facility] Platelets (Bld) [#/Vol] 280 10*3/uL 130 - 400 10*3/uL [facility] RBC (Bld) [#/Vol] 3.92 10*6/uL Low 4.0 - 6.1 10*6/uL [facility] WBC (Bld) [#/Vol] 6.7 10*3/uL 3.6 - 11.0 10*3/uL [facility] CHEM 7 FASTINGon 05-27-2023 Chloride [Moles/Vol] 106 mmol/L Normal 98-107 [facility] [place] Comment on above: Result Comment: Chayo garner note: Triglyceride levels of 600mg/dL or higher may positively bias chloride results by approximately 2.1 mmol Performed By: #### A CBC, CHEM7F #### [place] [address] CO2 [Moles/Vol] 28 mmol/L Normal 22-30 [facility] Comment on above: Performed By: #### A CBC, CHEM7F #### [place] [address] Creatinine [Mass/Vol] 1.30 mg/dL High 0.7-1.2 [facility] Comment on above: Performed By: #### A CBC, CHEM7F #### Testing performed at [place] [id number] EST. GFR, 83 ml/min/1.73sq.m [facility] Comment on above: Performed By: #### A CBC, CHEM7F #### [place] [address] EST. GFR,Non 69 ml/min/1.73sq.m Normal [facility] Comment on above: Performed By: #### A CBC, CHEM7F #### [place] [address] GFR Information Average GFR for 30-39 years old = 107. Normal [facility] Comment on above: Result Comment: Song Writer maye Kidney disease, GFR = <60. Kidney failure, GFR = <15. The GFR estimate is not adjusted for extreme body surface area or acute process, nor has it been validated for women or ethnic groups other than and . Testing performed at [place] [address] Performed By: #### A CBC, CHEM7F #### [place] [address] Glucose [Mass/Vol] 110 mg/dL High 70-100 [facility] Comment on above: Result Comment: NORMAL <100 mg/dL PREDIABETES 101-126 mg/dL DIABETES 126 mg/dL or higher Performed By: #### A CBC, CHEM7F #### [place] [address] Potassium [Moles/Vol] 3.8 mmol/L Normal 3.5-5.1 [facility] Comment on above: Performed By: #### A CBC, CHEM7F #### Testing performed at [place] [id number] Sodium [Moles/Vol] 144 mmol/L Normal 137-145 [facility] Comment on above: Performed By: #### A CBC, CHEM7F #### Testing performed at [place] [address] Urea nitrogen [Mass/Vol] 19 mg/dL Normal 7-20 [facility] Comment on above: Performed By: #### A CBC, CHEM7F #### Testing performed at [place] [id number] CHEM 7 (LYTES,BUN,CREA,GLUC) on 05-27-2023 Chloride [Moles/Vol] 106 mmol/L [facility] [employer] [facility] Comment on above: Please note: Triglyc eride levels of 600mg/dL or higher may positively bias chloride results by approximately 2.1 mmol CO2 [Moles/Vol] 28 mmol/L [facility] Creatinine [Mass/Vol] 1.30 mg/dL High [employer] [facility] GFR COMMENT Average GFR for 30-39 years old = 107. [facility] Comment on above: Chronic Kidney disea se, GFR = <60. Kidney failure, GFR = <15. The GFR estimate is not adjusted for extreme body surface area or acute process, nor has it been validated for women or ethnic groups other than and . Testing performed at [place], [place] [address] GFR/1.73 sq M.predicted among blacks MDRD (S/P/Bld) [Vol rate/Area] 83 mL/min/{1.73_m2} ml/min/1.73sq. m [facility] GFR/1.73 sq M.predicted among non-blacks MDRD (S/P/Bld) [Vol rate/Area] 69 mL/min/{1.73_m2} ml/min/1.73sq. m [facility] Glucose post fast [Mass/Vol] 110 mg/dL [facility] Comment on above: NORMAL <100 mg/dL PREDIABETES 101-126 mg/dL DIABETES 126 mg/dL or higher Interpretation and review of laboratory results Abnormal [facility] Potassium [Moles/Vol] 3.8 mmol/L [facility] Sodium [Moles/Vol] 144 mmol/L [facility] Urea nitrogen [Mass/Vol] 19 mg/dL [facility] Portable XR Chest Viewson IMPRESSION: Unremarkable chest. [...] contours appear unremarkable. IMPRESSION IMPRESSION: Unremarkable chest. [facility] Radiology Study observation (narrative) [facility] Portable XR Chest ViewsOrder ed By: Terrell Márquez on 05-27-2023 [facility] Work Phone: XR CHEST 1 VIEW [...] contours appear unremarkable. IMPRESSION: Unremarkable chest. Normal [facility] Lithiumon 05-12-2023 [place] [Moles/Vol] 0.4 mmol/L Low 0.5-1.2 [facility] Comment on above: Result Comment: A co ncentration of 0.5-0.8 mmol/L is advised for long-term use; concentrations of up to 1.2 mmol/L may be necessary during acute treatment. Detection Limit = 0.1 <0.1 indicates None Detected Performed at: [facility] [place] [address] [place], [place] [id number] PhD Shaka Oleary Performed By: #### 2 154955, 3937975, 08603699, 6787977, 3062866, 7820477, 1671799, 6725601, 6685155, 5929068 ####[facility] [address] [place] [address] T3 Freeon 05-12-2023 Free T3 [Mass/Vol] 2.5 pg/mL Invalid Interpretation Code 2.0-4.4 [facility] Comment on above: Result Comment: Perf ormed at: [facility] [address] [id number] PhD Shaka Oleary Performed By: #### 2 265468, 2574353, 09137609, 1193806, 8435238, 0423618, 2573670, 4346277, 8761918, 5008384 ####[facility] [address] [place] [address] CBC w/IndicesOrdered By: [employer] on 05-10-2023 Erythrocyte distribution width (RBC) [Ratio] 14.9 % High 10.9-14.2 [facility] Comment on above: Performed By: #### 2 333837, 3293120, 81078040, 0323167, 5581501, 6704803, 4765968, 6515073, 6074794, 9262042 #### [facility] [address] [place] [address] Hematocrit (Bld) [Volume fraction] 42.4 % Normal 37.7-49.0 [facility] Comment on above: Performed By: #### 2 413652, 4052972, 08473482, 6985128, 8879644, 8349569, 7594402, 7827470, 4102833, 4993271 #### [facility] [address] [place] [address] Hemoglobin (Bld) [Mass/Vol] 13.5 g/dL Normal 13.5-17.5 [facility] Comment on above: Performed By: #### 2 408573, 1050262, 94021449, 1058769, 3951203, 6765852, 5617483, 8589293, 0916650, 8828122 #### [facility] [address] [place] [address] MCH (RBC) [Entitic mass] 33.4 pg Normal 27.0-34.0 [facility] Comment on above: Performed By: #### 2 065906, 1560651, 20511674, 3156485, 8088221, 5695032, 6173815, 5614658, 5292901, 7190755 #### [facility] [address] [place] [address] MCHC (RBC) [Mass/Vol] 31.9 g/dL Normal 31.4-36.0 [facility] Comment on above: Performed By: #### 2 841477, 6603479, 68181504, 7617672, 6124536, 5703321, 1862507, 4526008, 9657638, 5148091 #### [facility] [address] [place] [address] MCV (RBC) [Entitic vol] 104.9 fL High 80.0-100.0 [facility] Comment on above: Performed By: #### 2 585904, 3234249, 98647513, 9342727, 7425889, 6126769, 4565448, 1529051, 3975118, 3933076 #### [facility] [address] [place] [address] Platelet mean volume (Bld) [Entitic vol] 7.7 fL Normal 6.4-10.8 [facility] Comment on above: Performed By: #### 2 853351, 6193853, 20229156, 1727003, 4998311, 1730852, 5305641, 1035830, 1769138, 0444222 #### [facility] [address] [place] [address] Platelets (Bld) [#/Vol] 359.0 E9/L Normal 150.0-500.0 [facility] Comment on above: Performed By: #### 2 395533, 1520356, 97324113, 2949966, 3312963, 7831073, 3047856, 7994484, 3043886, 1584962 #### [facility] [address] [place] [address] RBC (Bld) [#/Vol] 4.0 E12/L Low 4.3-5.9 [facility] Comment on above: Performed By: #### 2 108436, 4294448, 82355851, 0911787, 8352848, 3906629, 1205985, 8605991, 6245020, 5805018 #### [facility] [address] [place] [address] WBC corrected for nucl RBC Auto (Bld) [#/Vol] 4.6 E9/L Normal 4.0-11.0 [facility] Comment on above: Performed By: #### 2 654980, 4828262, 85973584, 3585946, 3363469, 6498977, 0360780, 7377467, 4493827, 1888307 #### [facility] [address] [place] [address] CBC w/Indiceson 05-10-2023 RBC size Nom (Bld) NORMAL Invalid Interpretation Code [facility] Comment on above: Performed By: #### 2 684209, 7490874, 51753396, 6980067, 3542521, 5456003, 0728822, 0748599, 6113881, 1862162 #### [facility] [address] [place], [place] [address] CHEMISTRYOrdered By: SYSTEM SYSTEM on 05-10-2023 Albumin/Globulin [...] Comment on above: Performed By: #### 2 587076, 9484584, 74979193, 4150684, 3930194, 2384560, 5056306, 6850940, 5927399, 8314201 #### [facility] [address] [place] [address] Anion gap [Moles/Vol] 10 mmol/L Normal 6-16 Rem [facility] Comment on above: Performed By: #### 2 083626, 9254040, 93950169, 0592213, 8633772, 6684205, 5312012, 2565073, 3864223, 4309955 #### [facility] [address] [place] [address] Bilirubin [Mass/Vol] 0.2 mg/dL Normal 0.0-1.1 [facility] Comment on above: Performed By: #### 2 011552, 3121396, 16800221, 9552149, 6753005, 3515977, 0493118, 0148112, 9946062, 2500362 #### [facility] [address] [place] [address] Calcium [Mass/Vol] 9.6 mg/dL Normal 8.9-11.1 [facility] Comment on above: Performed By: #### 2 220051, 2363794, 69982834, 6809580, 5081166, 8120950, 4127563, 3460760, 5308386, 3845374 #### [facility] [address] [place] [address] Chloride [Moles/Vol] 108 mmol/L Normal 101-111 [facility] Comment on above: Performed By: #### 2 223263, 9080097, 60496727, 3062831, 4605375, 4270892, 1544485, 9922666, 9840694, 5547417 #### [facility] [address] [place] [address] CO2 [Moles/Vol] 30 mmol/L Normal 21-31 [facility] Comment on above: Performed By: #### 2 147830, 1231746, 82275567, 5924323, 4865894, 8611275, 2648015, 1612752, 2063852, 8769002 #### [facility] [address] [place] [address] Creatinine [Mass/Vol] 1.2 mg/dL Normal 0.5-1.3 Rem isol Chem Comment on above: Performed By: #### 2 316847, 0056646, 61563769, 2484591, 5715074, 7627216, 9215972, 3538688, 4757327, 5244171 #### [facility] [address] [place] [address] Globulin (S) [Mass/Vol] 3.9 g/dL Normal 1.4-4.0 R emisol Chem Comment on above: Performed By: #### 2 490978, 0469906, 27645734, 4000259, 5401707, 3293590, 3135384, 4032834, 0417495, 0033917 #### [facility] [address] [place] [address] Glucose [Mass/Vol] 84 mg/dL Normal 55-199 [facility] Comment on above: Performed By: #### 2 135950, 1671029, 30641879, 5875870, 1317346, 3587904, 8522789, 2656400, 5432139, 3088677 #### [facility] [address] [place] [address] Potassium [Moles/Vol] 4.3 mmol/L Normal 3.5-5.3 Rem isol Chem Comment on above: Performed By: #### 2 842741, 0089198, 19839980, 9886424, 3380172, 2996788, 7442486, 0046003, 8569352, 2677915 #### [facility] [address] [place] [address] Protein [Mass/Vol] 7.6 g/dL Normal 6.0-7.8 [facility] Comment on above: Performed By: #### 2 225684, 7383914, 53869871, 4669556, 3158782, 4753427, 0147661, 4751612, 8307774, 7897979 #### [facility] [address] [place] [address] Sodium [Moles/Vol] 144 mmol/L Normal 135-145 [facility] Comment on above: Performed By: #### 2 632054, 5759477, 88790955, 8375133, 4439847, 2415597, 8843046, 8624354, 6680614, 2822974 #### [facility] [address] [place] [address] Urea nitrogen [Mass/Vol] 18 mg/dL Normal 5-21 [facility] Comment on above: Performed By: #### 2 998272, 2367765, 76293458, 2876015, 5678929, 8066831, 7419029, 1805342, 3619100, 0221065 #### [facility] [address] [place] [address] CMPon 05-10-2023 Albumin/Globulin (S) [Mass conc ratio] 0.9 Low 1.1-2.2 [facility] Comment on above: Performed By: #### 2 357190, 6998664, 22417308, 5916425, 1568795, 0687317, 2652816, 2790411, 6669031, 0599965 #### [facility] [address] [place] [address] ALP [Catalytic activity/Vol] 72 Int._Unit/L Normal 21-98 [facility] Comment on above: Performed By: #### 2 004524, 2402160, 51576292, 6626778, 8126329, 7979009, 1500357, 4656093, 2591320, 6625745 #### [facility] [address] [place] [address] ALT No additional P-5'-P [Catalytic activity/Vol] 9 Int._Unit/L Normal 6-46 [facility] Comment on above: Performed By: #### 2 154004, 4410835, 66115434, 6144698, 2422429, 2426990, 7865149, 3483127, 7652635, 9003119 #### [facility] [address] [place] [address] AST [Catalytic activity/Vol] 17 Int._Unit/L Normal 5-43 [facility] Comment on above: Performed By: #### 2 812905, 0370209, 73080482, 3935029, 5064619, 7238321, 4441036, 3445442, 7339322, 4768259 #### [facility] [address] [place], [place] [address] Urea nitrogen/Creatinine [Mass ratio] 15 No Units Normal 10-20 [facility] Comment on above: Performed By: #### 2 006779, 2342890, 05620894, 7177975, 7325487, 9758265, 9355183, 4553456, 9594105, 6875588 #### [facility] [address] [id number] CarbamazepineOrdered By: SYS TEM SYSTEM on 05-10-2023 Carbamaz Lvl 7.3 microgram/mL Normal 4.0-12.0 Remiso l Chem Comment on above: Performed By: #### 2 [id number], [id number], [id number], [id number], [id number], 5904735, 9949945, 9256161, 3031545, [id number] #### [facility] [address] [id number] Free H1Nvyqtiu By: SYSTEM SY STEM on 05-10-2023 Free T4 [Mass/Vol] 0.61 ng/dL Normal 0.58-1.64 Remiso l Chem Comment on above: Performed By: #### 2 [id number], [id number], [id number], [id number], 5724550, 9334138, 0932289, 0282896, 3847930, [id number] #### [facility] [address] [id number] HEMATOLOGYOrdered By: SYSTEM SYSTEM on 05-10-2023 RBC size Nom (Bld) NORMAL *NA* (05/10/23 7:00 AM) Invalid Interpretation Code Remisol Heme Ironon 05-10-2023 Iron [Mass/Vol] 70 microgram/dL Normal 35-153 [facility] Comment on above: Performed By: #### 2 356404, [id number], [id number], 0054011, 9533513, 4104627, 2070778, 1209092, 8453313, [id number] #### [facility] [address] [id number] Physician Orderon 05-10-2023 Physician Order [id number] 31#1.00TIFF Normal [facility] TSHOrdered By: SYSTEM SYSTEM on 05-10-2023 TSH Qn 3.75 m[IU]/L Normal 0.34-5.60 Remisol Chem Comment on above: Performed By: #### 2 [id number], 8158473, [id number], 9753821, 3521298, 7908229, 4186078, 4618751, 7194449, 2399703 #### [facility] [address] [id number] Vit [id number] By: SYSTEM [employer] STEM on 05-10-2023 Cobalamin (Vitamin B12) [Mass/Vol] 479 pg/mL Normal 50-1500 Remisol Chem Comment on above: Performed By: #### 2 956996, 9088210, 74891974, 6369429, 2959573, 8489756, 1159323, 8170422, 5370271, 7785661 ####[facility] [address] [place] [address] eGFROrdered By: SYSTEM SYSTE [employer] on 05-10-2023 eGFR 83 mL/min/1.73 m2 Normal >=59 Remisol Chem Comment on above: Order Comment: Order added by Discern Expert. Performed By: #### 2 [id number], [id number], [id number], 8332882, 8861010, 0313142, 0100645, 7918645, 3549772, 2920976 #### [facility] [address] [place] [address] CARBAMAZEPINEon 05-18-2022 Carbamezapine 6.9 ug/mL Normal 4.0-12.0 [facility] Comment on above: Result Comment: In c onjunction with other antiepileptic drugs Therapeutic 4.0 - 8.0 Toxicity 9.0 - 12.0 . Carbamazepine alone Therapeutic 8.0 - 12.0 . Detection Limit = 2.0 <2.0 indicates None Detected Performed By: #### C ARBLC #### [facility] [address] [place] [address] Dr. Chase Pedro LITHIUMon 05-18-2022 [place] (Eskalith(R)), Serum 0.7 mmol/L Normal 0.5-1.2 [facility] Comment on above: Result Comment: A co ncentration of 0.5-0.8 mmol/L is advised for long-term use; concentrations of up to 1.2 mmol/L may be necessary during acute treatment. Detection Limit = 0.1 <0.1 indicates None Detected Performed By: #### L ITHIUM #### [facility] [address] [address] [address] Chase Pedro CBC AUTO DIFFon 05-17-2022 BASO # 0.1 103/ul Normal 0.0-0.1 [facility] Comment on above: Performed By: #### C BC #### [facility] [address] [address] [address] Chase Pedro Basophils/100 WBC (Bld) 1.2 % Normal 0.2-2.0 [facility] Comment on above: Performed By: #### C BC #### [facility] [address] [place] [address] Dr. Chase Pedro EO # 0.0 103/ul Normal 0.0-0.7 [facility] Comment on above: Performed By: #### C BC #### [facility] [address] [place] [address] Dr. Chase Pedro Eosinophils/100 WBC (Bld) 0.2 % Critically low 0.9-7.0 [facility] Comment on above: Performed By: #### C BC #### [facility] [address] [place] [address] Dr. Chase Pedro Erythrocyte distribution width (RBC) [Ratio] 12.8 % Normal 11.0-15.0 [facility] Comment on above: Performed By: #### C BC #### [facility] [address] [place] [address] Dr. Chase Pedro Hematocrit (Bld) [Volume fraction] 42.5 % Normal 42.0-54.0 [facility] Comment on above: Performed By: #### C BC #### [facility] [address] [place] [address] Dr. Chase Pedro Hemoglobin (Bld) [Mass/Vol] 13.8 g/dL Critically low 14.0-18.0 [facility] Comment on above: Performed By: #### C BC #### [facility] [address] [place] [address] Dr. Chase Pedro IG # 0.02 10e3/ul Normal 0.00-0.03 [facility] Comment on above: Performed By: #### C BC #### [facility] [address] [place] [address] Dr. Chase Pedro IG % 0.4 % Normal 0.0-0.5 [facility] Comment on above: Performed By: #### C BC #### [facility] [address] [place] [address] Dr. Chase Pedro LYMPH # 2.3 103/ul Normal 1.2-3.8 [facility] Comment on above: Performed By: #### C BC #### [facility] [address] [place] [address] Dr. Cahse Pedro Lymphocytes/100 WBC (Bld) 45.8 % Normal 20.5-60.0 [facility] Comment on above: Performed By: #### C BC #### [facility] [address] [place] [address] Dr. Chase Pedro MANUAL DIFF REQ NO Normal [facility] Comment on above: Performed By: #### C BC #### [facility] [address] [place] [address] Dr. Chase Pedro MCH (RBC) [Entitic mass] 33.8 pg Normal 25.9-34.0 [facility] Comment on above: Performed By: #### C BC #### [facility] [address] [place] [address] Dr. Chase Pedro MCHC (RBC) [Mass/Vol] 32.5 g/dL Normal 29.9-35.2 [facility] Comment on above: Performed By: #### C BC #### [facility] [address] [place] [address] Dr. Chase Pedro MCV (RBC) [Entitic vol] 104.2 fL Critically high 80.0-94 .0 [facility] Comment on above: Performed By: #### C BC #### [facility] [address] [place] [address] Dr. Chase Pedro MONO # 0.3 103/ul Normal 0.3-0.8 [facility] Comment on above: Performed By: #### C BC #### [facility] [address] [place] [address] Dr. Chase Pedro Monocytes/100 WBC (Bld) 5.7 % Normal 1.7-12.0 [facility] Comment on above: Performed By: #### C BC #### [facility] [address] [place] [address] Dr. Chase Pedro NEUT # 2.3 103/ul Normal 1.4-6.5 [facility] Comment on above: Performed By: #### C BC #### [facility] [address] [address] [address] Chase Pedro Neutrophils/100 WBC (Bld) 46.7 % Normal 43.0-75.0 [facility] Comment on above: Performed By: #### C BC #### [facility] [address] [address] [address] Chase Pedro Platelet mean volume (Bld) [Entitic vol] 9.2 fL Critically low 9.5-13.5 [facility] Comment on above: Performed By: #### C BC #### [facility] [address] [address] [address] Chase Pedro PLT 288 103/ul Normal 150-450 [facility] Comment on above: Performed By: #### C BC #### [facility] [address] [place] [address] Dr. Chase Pedro RBC 4.08 106/ul Critically low 4.70-6.10 [facility] Comment on above: Performed By: #### C BC #### [facility] [address] [address] [address] Chase Pedro WBC 4.9 103/ul Normal 4.0-11.0 [facility] Comment on above: Performed By: #### C BC #### [facility] [address] [place] [address] Dr. Chase Pedro DEPAKENE/ VALPROIC ACIDon DEPAKENE 56.7 ug/ml Normal 50.0-100.0 [facility] Comment on above: Performed By: #### C MP, TSH, VALP #### [facility] [address] [address] [address] Chase Pedro PROF 14(COMP METB)on 023 Albumin [Mass/Vol] 3.5 g/dL Normal 3.4-5.0 [facility] Comment on above: Performed By: #### C MP, TSH, VALP #### [facility] [address] [place] [address] Dr. Chase Pedro Albumin/Globulin [Mass ratio] 0.8 {ratio} Normal [facility] Comment on above: Performed By: #### C MP, TSH, VALP #### [facility] [address] [place] [address] Dr. Chase Pedro ALP [Catalytic activity/Vol] 110 U/L Normal 46-116 [facility] Comment on above: Performed By: #### C MP, TSH, VALP #### [facility] [address] [place] [address] Dr. Chase Pedro ALT [Catalytic activity/Vol] 18 U/L Normal 16-63 [facility] Comment on above: Performed By: #### C MP, TSH, VALP #### [facility] [address] [place] [address] Dr. Chase Pedro Anion gap [Moles/Vol] 8.0 mmol/L Normal [facility] Comment on above: Performed By: #### C MP, TSH, VALP #### [facility] [address] [place] [address] Dr. Chase Pedro AST [Catalytic activity/Vol] 12 U/L Critically low 15-37 [facility] Comment on above: Performed By: #### C MP, TSH, VALP #### [facility] [address] [place] [address] Dr. Chase Pedro Bilirubin [Mass/Vol] 0.3 mg/dL Normal 0.2-1.0 [facility] Comment on above: Performed By: #### C MP, TSH, VALP #### [facility] [address] [place] [address] Dr. Chase Pedro Calcium [Mass/Vol] 9.3 mg/dL Normal 8.5-10.1 [facility] Comment on above: Performed By: #### C MP, TSH, VALP #### [facility] [address] [place] [address] Dr. Chase Pedro Chloride [Moles/Vol] 107 mmol/L Normal 98-107 [facility] Comment on above: Performed By: #### C MP, TSH, VALP #### [facility] [address] [address] [address] Chase Pedro CO2 [Moles/Vol] 36.9 mmol/L Critically high 21.0-32.0 [facility] Comment on above: Performed By: #### C MP, TSH, VALP #### [facility] [address] [place] [address] Dr. Chase Pedro Creatinine [Mass/Vol] 1.46 mg/dL Critically high 0.70-1.30 [facility] Comment on above: Performed By: #### C MP, TSH, VALP #### [facility] [address] [address] [address] Chase Pedro EGFR-AF HAITIAN >60 Normal >=60 [facility] Comment on above: Performed By: #### C MP, TSH, VALP #### [facility] [address] [place] [address] Dr. Chase Pedro EGFR-NON AF HAITIAN 57 mL/min/1.73m2 Critically low >=60 [facility] Comment on above: Performed By: #### C MP, TSH, VALP #### [facility] [address] [place] [address] Dr. Chase Pedro Globulin (S) [Mass/Vol] 4.4 g/dL Normal [facility] Comment on above: Performed By: #### C MP, TSH, VALP #### [facility] [address] [place] [address] Dr. Chase Pedro Glucose [Mass/Vol] 94 mg/dL Normal 74-106 [facility] Comment on above: Performed By: #### C MP, TSH, VALP #### [facility] [address] [place] [address] Dr. Chase Pedro Potassium [Moles/Vol] 3.9 mmol/L Normal 3.5-5.1 [facility] Comment on above: Performed By: #### C MP, TSH, VALP #### [facility] [address] [place] [address] Dr. Chase Pedro Protein [Mass/Vol] 7.9 g/dL Normal 6.4-8.2 [facility] Comment on above: Performed By: #### C MP, TSH, VALP #### [facility] [address] [address] [address] Chase Pedro Sodium [Moles/Vol] 148 mmol/L Critically high 136-145 [facility] Comment on above: Performed By: #### C MP, TSH, VALP #### [facility] [address] [place] [address] Dr. Chase Pedro Urea nitrogen [Mass/Vol] 17.0 mg/dL Normal 7.0-18.0 [facility] Comment on above: Performed By: #### C MP, TSH, VALP #### [facility] [address] [place] [address] Dr. Chase Pedro Urea nitrogen/Creatinine [Mass ratio] 11.6 mg/mg Normal [facility] Comment on above: Performed By: #### C MP, TSH, VALP #### [facility] [address] [place] [address] Dr. Chase Pedro TSHon 05-17-2022 TSH 0.725 uIU/mL Normal 0.358-3.740 [facility] Comment on above: Performed By: #### C MP, TSH, VALP #### [facility] [address] [place] [address] Dr. Chase Pedro Progress Noteson 09-22-2021 [employer] Interface Message Text ----- Wednesday, September 22, 2021 at 11:33:21 AM ----- ----- Provider: Shell Singh, Resident -- Clinic: [place] ----- COMPOSITE CHRISTIAN Patient is scheduled for Jehovah'S Witness on tooth #22-MDF, 23-MDF, 24-MDF, 25-MDF, 26-MDF and 27 surface MDF. Reviewed Medical History. Pt exhibited the following conditions: Mental Disorders Patient is ready for treatment. Topical Benzocaine gel applied at the injection site for 2 minutes. Administered 1 carpules of Lidocaine, 2% with Epinephrine 1:100,000,. Decay/existing holiness removed, cavity prepared. Selectively etched enamel with 37% phosphoric acid, rinsed, and blot dried. OptiBond davidson applied and light-cured. Condensed packable composite shade in light cured increments using Mylar strip and wedge. Finished with finishing burs, checked occlusion, verified proximal contacts and holiness was polished. Rinsed and suctioned intraorally, advised [...] ----- Provider: Emeterio Zapata DDS -- Clinic: [place] ----- Normal [facility] WOUND CULTUREon 07-18-2021 Antimicrobial Susceptibility Comment Normal [facility] Comment on above: Result Comment: S = Susceptible; I = Intermediate; R = Resistant P = Positive; N = Negative MICS are expressed in micrograms per mL Antibiotic RSLT#1 RSLT#2 RSLT#3 RSLT#4 Penicillin S Vancomycin S Performed By: #### C XWND #### [facility] [address] [place] [address] Dr. Chase Pedro Bacteria identified Aer cx Nom (Unsp spec) Final report Abnormal [facility] Comment on above: Performed By: #### C XWND #### [facility] [address] [place] [address] Dr. Chase Pedro Result 1 Enterococcus faecalis Abnormal [facility] Comment on above: Result Comment: For Enterococcus species, aminoglycosides (except for high-level resistance screening), cephalosporins, clindamycin, and trimethoprim-sulfamethoxazole are not effective clinically. (CLSI, [id number], 2016) Heavy growth Performed By: #### C XWND #### [facility] [address] [place] [address] Dr. Chase Pedro Progress Noteson 06-08-2021 [employer] Interface Message Text [facility], Pt is [...] on 6 month recall. Examination completed by /[facility] [place]: mian ----- Signed on Tuesday, June 08, 2021 at 2:17:56 PM ----- ----- Provider: Emeterio Zapata DDS -- Clinic: [place] ----- Normal [facility] XR MODIFIED BARIUM SWALLOWon 05-06-2021 XR [...] 06, 2021 2:54:29 PM EDT Finalized by: WELLINGTNO BUTT on MonMay 06, 2021 2:54:29 PM EDT Normal [facility] Comment on above: Order Comment: Injur [...] shotty mediastinal and hilar lymph nodes. 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 Cardiomegaly, significant for the patient's age. [employer] Workstation ID: [id number] Dictated by: BERNADETTE ARANA on MonMay 05, 2021 2:07:05 PM EDT Transcribed by: NIKI QUESADA on MonMay 05, 2021 2:30:07 PM EDT Finalized by: BERNADETTE ARANA on MonMay 05, 2021 2:37:50 PM EDT [facility] Comment on above: Order Comment: Injur y/Trauma [...] on MonMay 04, 2021 8:43:37 PM EDT [facility] Comment on above: Order Comment: Injur y/Trauma [...] SARS-CoV-2/Flu/RSV plus RT-PCR Cepheid assay on the [employer] System. This test has not been approved for use in asymptomatic patients and its performance in this patient population has not been evaluated. Negative results do not rule out the presence of SARS-CoV-2/COVID-19 . Fact sheets for this EUA can be found at the following links: For Healthcare Providers: https://www.fda.gov /media/944984/downl oad For Patients: https://www.fda.gov /media/454958/downl oad [facility] Comment on above: Performed By: #### L [id number] #### [facility] [address] [id number] Liam Casas M.D. [id number] XR CHEST PA/APon 05-02-2021 XR CHEST PA/AP [...] left lung base. Findings consistent with pneumonia. [facility] Workstation ID: [id number] Dictated by: FRANCK JEFFERS on [place] May 02, 2021 1:44:03 PM EDT Transcribed by: CAMI CHAHAL on MonMay 02, 2021 1:47:37 PM EDT Finalized by: FRANCK JEFFERS on [place] May 02, 2021 2:44:35 PM EDT [facility] Comment on above: Order Comment: Fully upright [...] refer to the speech pathologist's detailed report. [employer] Workstation ID: [id number] [facility] EXAMINATION: XR MODIFIED BARIUM SWALLOW HISTORY: [...] no radiographic evidence of tracheal aspiration/penetrat ion. [facility] Interface, Rad In [employer] - 07/08/2020 8:42 PM EDT EXAMINATION: XR [...] refer to the speech pathologist's detailed report. [employer] Workstation ID: [id number] [facility] XR MODIFIED BARIUM SWALLOWon 07-08-2020 XR [...] refer to the speech pathologist's detailed report. [employer] Workstation ID: [id number] Dictated by: BERNADETTE ARANA on MonJuly 08, 2020 7:29:57 PM EDT Transcribed by: CAMI CHAHAL on MonJuly 08, 2020 7:30:41 PM EDT Finalized by: BERNADETTE ARANA on MonJuly 08, 2020 8:40:23 PM EDT [facility] Comment on above: Order Comment: ROULA Gutierrez ORDER Injury/Trauma or Illness?:Illness/Other How long have you had these symptoms (acute/chronic)?:Acute Reason for exam?: Dyspepsia Type of Exam?:Ongoing Additional signs and symptoms?: Dyspepsia Fluoro time in minutes:.4 40 seconds fluoro Fluoro dose in mGy?:22.92 Basic Metabolic Panelon 02-13 Anion gap [Moles/Vol] 7 mmol/L Low 10 - 20 mmol/L [facility] Calcium [Mass/Vol] 9.2 mg/dL 8.4 - 10. 2 mg/dL [facility] Chloride [Moles/Vol] 98 mmol/L 98 - 10 8 mmol/L [facility] Creatinine [Mass/Vol] 1.56 mg/dL High 0.5 - 1.3 mg/dL [facility] GFR/1.73 sq M predicted among non-blacks MDRD (S/P/Bld) [Vol rate/Area] The eGFR should be used for monitoring renal function only and not for medication dosing. [facility] GFR/1.73 sq M.predicted CKD-EPI (S/P/Bld) [Vol rate/Area] 60 >=60 mL/min/1.73 m2 [facility] Glucose [Mass/Vol] 102 mg/dL High 65 - 99 mg/dL [facility] HCO3 [Moles/Vol] 40 mmol/L High 21 - 32 mmol/L [facility] Potassium [Moles/Vol] 4.0 mmol/L 3.5 - 5.1 mmol/L [facility] Sodium [Moles/Vol] 141 mmol/L 135 - 145 mmol/L [facility] Urea nitrogen [Mass/Vol] 28 mg/dL High 8 - 25 mg/dL [facility] Urea nitrogen/Creatinine [Mass ratio] 17.9 mg/mg [facility] CBC WITH AUTO DIFFERENTIALon 03-01-2019 Basophils (Bld) [#/Vol] 0.05 10*3/uL [facility] Basophils/100 WBC (Bld) 0.7 % [facility] Eosinophils (Bld) [#/Vol] 0.08 10*3/uL [facility] Eosinophils/100 WBC (Bld) 1.2 % [facility] Erythrocyte distribution width (RBC) [Entitic vol] 14.2 % 11.6 - 14.8 % [facility] Hematocrit (Bld) [Volume fraction] 41.3 % 41 - 53 % [facility] Hemoglobin (Bld) [Mass/Vol] 13.2 g/dL Low 13.5 - 17.5 g/dL [facility] Immature granulocytes (Bld) [#/Vol] 0.06 10*3/uL [facility] Immature granulocytes/100 WBC (Bld) 0.90 % [facility] Comment on above: The IG parameter is the percentage of metamyelocytes, myelocytes, and promyelocytes. Interpretation and review of laboratory results Abnormal [facility] Lymphocytes (Bld) [#/Vol] 1.76 10*3/uL [facility] Lymphocytes/100 WBC (Bld) 26.2 % [facility] MCH (RBC) [Entitic mass] 32.3 pg 26 - 34 pg [facility] MCHC (RBC) [Mass/Vol] 32.0 g/dL 31 - 37 g/dL [facility] MCV (RBC) [Entitic vol] 101.0 fL High 80 - 100 fL [facility] Monocytes (Bld) [#/Vol] 0.65 10*3/uL [facility] Monocytes/100 WBC (Bld) 9.7 % [facility] Neutrophils (Bld) [#/Vol] 4.12 10*3/uL [facility] Neutrophils/100 WBC (Bld) 61.3 % [facility] Nucleated RBC (Bld) [#/Vol] 0.00 10*3/uL [facility] Nucleated RBC/100 WBC (Bld) [Ratio] 0.0 % [facility] Platelet mean volume (Bld) [Entitic vol] 9.6 fL 9 - 15.5 fL [facility] Platelets (Bld) [#/Vol] 355 10*3/uL [facility] RBC (Bld) [#/Vol] 4.09 10*6/uL Low [facility] WBC (Bld) [#/Vol] 6.72 10*3/uL [facility] Magnesium Levelon 03-01-2019 Magnesium [Mass/Vol] 2.5 mg/dL High 1.6 - 2 .4 mg/dL [facility] Otheron 03-01-2019 Interpretation and review of laboratory results Abnormal [facility] Phosphoruson 03-01-2019 Interpretation and review of laboratory results Normal [facility] Phosphate [Mass/Vol] 4.2 mg/dL 2.7 - 4 .5 mg/dL [facility] Basic Metabolic Panelon 02-13 Anion gap [Moles/Vol] 8 mmol/L Low 10 - 20 mmol/L [facility] Calcium [Mass/Vol] 9.2 mg/dL 8.4 - 10. 2 mg/dL [facility] Chloride [Moles/Vol] 99 mmol/L 98 - 10 8 mmol/L [facility] Creatinine [Mass/Vol] 1.54 mg/dL High 0.5 - 1.3 mg/dL [facility] GFR/1.73 sq M predicted among non-blacks MDRD (S/P/Bld) [Vol rate/Area] The eGFR should be used for monitoring renal function only and not for medication dosing. [facility] GFR/1.73 sq M.predicted CKD-EPI (S/P/Bld) [Vol rate/Area] 61 >=60 mL/min/1.73 m2 [facility] Glucose [Mass/Vol] 95 mg/dL 65 - 99 mg/dL [facility] HCO3 [Moles/Vol] 38 mmol/L High 21 - 32 mmol/L [facility] Potassium [Moles/Vol] 4.1 mmol/L 3.5 - 5.1 mmol/L [facility] Sodium [Moles/Vol] 141 mmol/L 135 - 145 mmol/L [facility] Urea nitrogen [Mass/Vol] 27 mg/dL High 8 - 25 mg/dL [facility] Urea nitrogen/Creatinine [Mass ratio] 17.5 mg/mg [facility] CBC WITH AUTO DIFFERENTIALon 02-28-2019 Basophils (Bld) [#/Vol] 0.06 10*3/uL [facility] Basophils/100 WBC (Bld) 1.0 % [facility] Eosinophils (Bld) [#/Vol] 0.07 10*3/uL [facility] Eosinophils/100 WBC (Bld) 1.2 % [facility] Erythrocyte distribution width (RBC) [Entitic vol] 14.5 % 11.6 - 14.8 % [facility] Hematocrit (Bld) [Volume fraction] 41.4 % 41 - 53 % [facility] Hemoglobin (Bld) [Mass/Vol] 13.1 g/dL Low 13.5 - 17.5 g/dL [facility] Immature granulocytes (Bld) [#/Vol] 0.07 10*3/uL [facility] Immature granulocytes/100 WBC (Bld) 1.20 % [facility] Comment on above: The IG parameter is the percentage of metamyelocytes, myelocytes, and promyelocytes. Lymphocytes (Bld) [#/Vol] 2.12 10*3/uL [facility] Lymphocytes/100 WBC (Bld) 35.6 % [facility] MCH (RBC) [Entitic mass] 32.4 pg 26 - 34 pg [facility] MCHC (RBC) [Mass/Vol] 31.6 g/dL 31 - 37 g/dL [facility] MCV (RBC) [Entitic vol] 102.5 fL High 80 - 100 fL [facility] Monocytes (Bld) [#/Vol] 0.40 10*3/uL [facility] Monocytes/100 WBC (Bld) 6.7 % [facility] Neutrophils (Bld) [#/Vol] 3.23 10*3/uL [facility] Neutrophils/100 WBC (Bld) 54.3 % [facility] Nucleated RBC (Bld) [#/Vol] 0.00 10*3/uL [facility] Nucleated RBC/100 WBC (Bld) [Ratio] 0.0 % [facility] Platelet mean volume (Bld) [Entitic vol] 9.6 fL 9 - 15.5 fL [facility] Platelets (Bld) [#/Vol] 383 10*3/uL [facility] RBC (Bld) [#/Vol] 4.04 10*6/uL Low [facility] WBC (Bld) [#/Vol] 6.20 10*3/uL [facility] Magnesium Levelon 02-28-2019 Magnesium [Mass/Vol] 2.6 mg/dL High 1.6 - 2 .4 mg/dL [facility] Otheron 02-28-2019 Interpretation and review of laboratory results Abnormal [facility] Phosphoruson 02-28-2019 Phosphate [Mass/Vol] 4.7 mg/dL High 2.7 - 4 .5 mg/dL [facility] Basic Metabolic Panelon 02-13 Anion gap [Moles/Vol] 7 mmol/L Low 10 - 20 mmol/L [facility] Calcium [Mass/Vol] 9.2 mg/dL 8.4 - 10. 2 mg/dL [facility] Chloride [Moles/Vol] 101 mmol/L 98 - 10 8 mmol/L [facility] Creatinine [Mass/Vol] 1.54 mg/dL High 0.5 - 1.3 mg/dL [facility] GFR/1.73 sq M predicted among non-blacks MDRD (S/P/Bld) [Vol rate/Area] The eGFR should be used for monitoring renal function only and not for medication dosing. [facility] GFR/1.73 sq M.predicted CKD-EPI (S/P/Bld) [Vol rate/Area] 61 >=60 mL/min/1.73 m2 [facility] Glucose [Mass/Vol] 104 mg/dL High 65 - 99 mg/dL [facility] HCO3 [Moles/Vol] 40 mmol/L High 21 - 32 mmol/L [facility] Interpretation and review of laboratory results Abnormal [facility] Potassium [Moles/Vol] 4.0 mmol/L 3.5 - 5.1 mmol/L [facility] Sodium [Moles/Vol] 144 mmol/L 135 - 145 mmol/L [facility] Urea nitrogen [Mass/Vol] 24 mg/dL 8 - 25 mg/dL [facility] Urea nitrogen/Creatinine [Mass ratio] 15.6 mg/mg [facility] NT Pro BNPon 02-26-2019 Interpretation and review of laboratory results Normal [facility] Natriuretic peptide.B prohormone N-Terminal [Mass/Vol] 67 pg/mL 0 - 300 pg/mL [facility] Priid Study Cut-offs Rule In: < /= 50 Years >450 pg/mL 51 Years - 75 Years >900 pg/mL 76 Years - 99 Years >1800 pg/mL Rule Out: All patients <300 pg/mL [facility] ECHOCARDIOGRAM 2D COMPLETEon 02-25-2019 Interface, Rad In [facility] Echopacs - 02/25/2019 1:[address] [address] [place] [address] ----- ECHOCARDIOGRAPHY REPORT - [facility] ----- Name: FAHAD BERNABE Age: 28 years Date: 02/25/2019 Hospital #: [id number] : 1990 Room: [address] [place] [address] #: [id number] Sex: M Tech: Gary Calvillo Ordering Physician: [id number] HOLDEN HINTON Height: 57.00 in Sys BP: 124 MARELNE cc: , Weight: 264.00 Nidia BP: 79 Reading Physician: [id number] Kate Marrero MD/ Rhythm: Electronically Signed by: [id number] Kate Marrero MD BSA: 2.02 m on: [...] LA Index (BP) 29.8 ml/m TAPSE LAESV RESEARCH CHEMIST NOTES: Definity (if used): 1ml Final IMPRESSION: Poor quality, apical views borderline nondiagnostic. Definity given [address] [address] [place] [address] ---- ECHOCARDIOGRAPHY REPORT - [facility] ---- Name: FAHAD BERNABE Age: 28 years Date: 02/25/2019 [facility] #: [id number] : 1990 Room: [address] [place] [address] #: [id number] Sex: M Tech: Gary Shaw Rajinder Ordering Physician: [id number] HOLDEN HINTON Height: 57.00 in Sys BP: 124 MARLENE cc: , Weight: 264.00 Nidia BP: 79 Reading Physician: [id number] Marrero MD/ Rhythm: Electronically Signed by: Basilia [...] LA Index (BP) 29.8 ml/m TAPSE LAESV RESEARCH CHEMIST NOTES: Definity (if used): 1ml Final [facility] Poor quality, apical views borderline nondiagnostic. Definity given [facility] [place] Levelon 02-25-2019 Interpretation and review of laboratory results Abnormal [facility] [place] [Moles/Vol] 0.5 mmol/L Low 0.6 - 1. 2 mmol/L [facility] POC ARTERIAL BLOOD GAS PANEL [facility] 02-25-2019 Base excess Calc (Bld) [Moles/Vol] 12.9 mmol/L High [facility] Breath rate setting Ventilator synchronized intermittent mandatory [facility] CO2 (Bld) [Partial pressure] 71.3 mm[Hg] High [facility] HCO3 (Bld) [Moles/Vol] 41.1 mmol/L High 22 - 26 mmol /L [facility] Hematocrit (BldA) [Volume fraction] 37.2 % Low 41 - 53 % [facility] Hemoglobin (Bld) [Mass/Vol] 12.1 g/dL Low 13.5 - 18 g/dL [facility] Inhaled oxygen concentration 0 % [facility] Inhaled oxygen flow rate 4 L/min [facility] Interpretation and review of laboratory results Abnormal [facility] Oxygen (Bld) [Partial pressure] 94 mm[Hg] [facility] pH (Bld) 7.37 [pH] [facility] SaO2% (BldA) [Mass fraction] 97.2 % 92 - 99 % [facility] Specimen source Nom (Unsp spec) Radial, left [facility] Tidal volume setting Ventilator 0 [facility] Base excess Calc (Bld) [Moles/Vol] 9.5 mmol/L High [facility] Breath rate setting Ventilator synchronized intermittent mandatory [facility] CO2 (Bld) [Partial pressure] 61.8 mm[Hg] High [facility] HCO3 (Bld) [Moles/Vol] 36.7 mmol/L High 22 - 26 mmol /L [facility] Hematocrit (BldA) [Volume fraction] 37.1 % Low 41 - 53 % [facility] Hemoglobin (Bld) [Mass/Vol] 12.1 g/dL Low 13.5 - 18 g/dL [facility] Inhaled oxygen concentration 0 % [facility] Inhaled oxygen flow rate 2 L/min [facility] Interpretation and review of laboratory results Abnormal [facility] Oxygen (Bld) [Partial pressure] 73 mm[Hg] Low [facility] pH (Bld) 7.38 [pH] [facility] SaO2% (BldA) [Mass fraction] 95.2 % 92 - 99 % [facility] Specimen source Nom (Unsp spec) Radial, left [facility] Tidal volume setting Ventilator 0 [facility] XR MODIFIED BARIUM SWALLOWon 02-25-2019 Recommendation is diet per Speech Pathology. Modified barium swallow study as described above. Please see Speech Pathologist report for complete details. MWK/pji Workstation ID: [id number] [facility] EXAMINATION: XR MODIFIED BARIUM SWALLOW HISTORY: [...] 506. FINDINGS: The oral phase demonstrated slow jzsxxbie-je-gpbusga or transit with posterior fall off into the pharynx with large volumes. The pharyngeal phase demonstrated no significant residue was seen following swallowing. There was some flash penetration seen with the thin liquid when a large volume was ingested. Aspiration was not seen during the examination. [facility] Interface, Rad In Fuji Speechq - [...] 506. FINDINGS: The oral phase demonstrated slow jdznodgd-va-srrezvo or transit with posterior fall off into [...] for complete details. KASSIEK/tania Workstation ID: [id number] [facility] CBC WITH AUTO DIFFERENTIALon 02-24-2019 Basophils (Bld) [#/Vol] 0.02 10*3/uL [facility] Basophils/100 WBC (Bld) 0.3 % [facility] Eosinophils (Bld) [#/Vol] 0.04 10*3/uL [facility] Eosinophils/100 WBC (Bld) 0.7 % [facility] Erythrocyte distribution width (RBC) [Entitic vol] 14.7 % 11.6 - 14.8 % [facility] Hematocrit (Bld) [Volume fraction] 38.2 % Low 41 - 53 % [facility] Hemoglobin (Bld) [Mass/Vol] 11.8 g/dL Low 13.5 - 17.5 g/dL [facility] Immature granulocytes (Bld) [#/Vol] 0.05 10*3/uL [facility] Immature granulocytes/100 WBC (Bld) 0.80 % [facility] Comment on above: The IG parameter is the percentage of metamyelocytes, myelocytes, and promyelocytes. Interpretation and review of laboratory results Abnormal [facility] Lymphocytes (Bld) [#/Vol] 1.37 10*3/uL [facility] Lymphocytes/100 WBC (Bld) 23.2 % [facility] MCH (RBC) [Entitic mass] 32.2 pg 26 - 34 pg [facility] MCHC (RBC) [Mass/Vol] 30.9 g/dL Low 31 - 37 g/dL [facility] MCV (RBC) [Entitic vol] 104.1 fL High 80 - 100 fL [facility] Monocytes (Bld) [#/Vol] 0.55 10*3/uL [facility] Monocytes/100 WBC (Bld) 9.3 % [facility] Neutrophils (Bld) [#/Vol] 3.87 10*3/uL [facility] Neutrophils/100 WBC (Bld) 65.7 % [facility] Nucleated RBC (Bld) [#/Vol] 0.00 10*3/uL [facility] Nucleated RBC/100 WBC (Bld) [Ratio] 0.0 % [facility] Platelet mean volume (Bld) [Entitic vol] 9.4 fL 9 - 15.5 fL [facility] Platelets (Bld) [#/Vol] 233 10*3/uL [facility] RBC (Bld) [#/Vol] 3.67 10*6/uL Low [facility] WBC (Bld) [#/Vol] 5.90 10*3/uL [facility] Comprehensive Metabolic Pane rachel 02-24-2019 Albumin [Mass/Vol] 2.8 g/dL Low 3.2 - 5.2 g/dL [facility] ALP [Catalytic activity/Vol] 80 U/L 40 - 140 U/L [facility] ALT [Catalytic activity/Vol] 20 U/L 14 - 65 U/L [facility] Anion gap [Moles/Vol] 7 mmol/L Low 10 - 20 mmol/L [facility] AST [Catalytic activity/Vol] 12 U/L 0 - 45 U/L [facility] Bilirubin [Mass/Vol] 0.2 mg/dL 0 - 1.3 mg/dL [facility] Calcium [Mass/Vol] 8.8 mg/dL 8.4 - 10. 2 mg/dL [facility] Chloride [Moles/Vol] 106 mmol/L 98 - 10 8 mmol/L [facility] Creatinine [Mass/Vol] 1.26 mg/dL 0.5 - 1.3 mg/dL [facility] GFR/1.73 sq M predicted among non-blacks MDRD (S/P/Bld) [Vol rate/Area] The eGFR should be used for monitoring renal function only and not for medication dosing. [facility] GFR/1.73 sq M.predicted CKD-EPI (S/P/Bld) [Vol rate/Area] 78 >=60 mL/min/1.73 m2 [facility] Glucose [Mass/Vol] 99 mg/dL 65 - 99 mg/dL [facility] HCO3 [Moles/Vol] 34 mmol/L High 21 - 32 mmol/L [facility] Interpretation and review of laboratory results Abnormal [facility] Potassium [Moles/Vol] 4.3 mmol/L 3.5 - 5.1 mmol/L [facility] Protein [Mass/Vol] 7.8 g/dL 6 - 8 g/dL [facility] Sodium [Moles/Vol] 143 mmol/L 135 - 145 mmol/L [facility] Urea nitrogen [Mass/Vol] 12 mg/dL 8 - 25 mg/dL [facility] Urea nitrogen/Creatinine [Mass ratio] 9.5 mg/mg Low [facility] Hemoglobin A1con 02-24-2019 Average glucose Estimated from glycated hemoglobin mass conc (Bld) 117 mg/dL High 68 - 114 mg/dL [facility] HbA1c (Bld) [Mass fraction] 5.7 % High 4 - 5.6 % [facility] Interpretation and review of laboratory results Abnormal [facility] Normal: 4.0% - 5.6% Increased risk for diabetes: 5.7% - 6.4% Diabetes: >= 6.5% Pediatrics: No established reference range Estimated average glucose: 68-114 mg/dL [facility] INFLUENZA A,B RAPID MOLECULA Jesus 02-24-2019 FLUAV RNA EDER+probe Ql (Unsp spec) Not Detected Not Detected [facility] FLUBV RNA EDER+probe Ql (Unsp spec) Not Detected Not Detected [facility] Interpretation and review of laboratory results Normal [facility] Test Method: Nucleic Acid Amplification [facility] LEGIONELLA ANTIGEN, URINEon 02-24-2019 L. pneumophila Ag Ql (U) Negative Negative for Legionella antigen [facility] Comment on above: COMMENT: Results may be affected if patient is on diuretics. INTERPRETATION OF RESULTS: Test detects Legionella pneumophilia serogroup 1 antigens in urine. Legionnaires disease cannot be ruled out since other serogroups and species may also cause disease. Magnesiumon 02-24-2019 Magnesium [Mass/Vol] 2.2 mg/dL 1.6 - 2 .4 mg/dL [facility] Otheron 02-24-2019 Interpretation and review of laboratory results Normal [facility] Interpretation and review of laboratory results Normal [facility] Phosphoruson 02-24-2019 Phosphate [Mass/Vol] 4.1 mg/dL 2.7 - 4 .5 mg/dL [facility] S.PNEUMONIAE URINE ANTIGENon 02-24-2019 S. pneumoniae Ag Ql (U) Negative Pres umptive Negative for Pneumococcal pneumoniae [facility] Comment on above: A negative result jimenes ggests no current or recent pneumococcal infection. A negative result does not rule out Streptococcus pneumoniae infection since the antigen present in the sample may be below the detection limit of the test. TSHon 02-24-2019 TSH Qn 2.18 m[IU]/L [facility] Valproic Acid Levelon 2019 Interpretation and review of laboratory results Abnormal [facility] Valproate [Mass/Vol] 47 ug/mL Low [facility] Alcohol, Medicalon 0 Ethanol [Mass/Vol] mg/dL <10.00 mg/dL [facility] Comment on above: Alcohol cutoff: <10. 00 mg/dL = None Detected Interpretation and review of laboratory results Normal [facility] Ammoniaon 02-23-2019 Ammonia (P) [Mass/Vol] 43 ug/dL [facility] Interpretation and review of laboratory results Normal [facility] BMPon 02-23-2019 Anion gap [Moles/Vol] 10 mmol/L 10 - 20 mmol/L [facility] Calcium [Mass/Vol] 8.3 mg/dL Low 8.4 - 10. 2 mg/dL [facility] Chloride [Moles/Vol] 108 mmol/L 98 - 10 8 mmol/L [facility] Creatinine [Mass/Vol] 1.20 mg/dL 0.5 - 1.3 mg/dL [facility] GFR/1.73 sq M predicted among non-blacks MDRD (S/P/Bld) [Vol rate/Area] The eGFR should be used for monitoring renal function only and not for medication dosing. [facility] GFR/1.73 sq M.predicted CKD-EPI (S/P/Bld) [Vol rate/Area] 83 >=60 mL/min/1.73 m2 [facility] Glucose [Mass/Vol] 104 mg/dL High 65 - 99 mg/dL [facility] HCO3 [Moles/Vol] 30 mmol/L 21 - 32 mmol/L [facility] Potassium [Moles/Vol] 4.8 mmol/L 3.5 - 5.1 mmol/L [facility] Sodium [Moles/Vol] 143 mmol/L 135 - 145 mmol/L [facility] Urea nitrogen [Mass/Vol] 15 mg/dL 8 - 25 mg/dL [facility] Urea nitrogen/Creatinine [Mass ratio] 12.5 mg/mg [facility] CBC WITH AUTO DIFFERENTIALon 02-23-2019 Basophils (Bld) [#/Vol] 0.03 10*3/uL [facility] Basophils/100 WBC (Bld) 0.3 % [facility] Eosinophils (Bld) [#/Vol] 0.04 10*3/uL [facility] Eosinophils/100 WBC (Bld) 0.4 % [facility] Erythrocyte distribution width (RBC) [Entitic vol] 14.4 % 11.6 - 14.8 % [facility] Hematocrit (Bld) [Volume fraction] 35.1 % Low 41 - 53 % [facility] Hemoglobin (Bld) [Mass/Vol] 10.9 g/dL Low 13.5 - 17.5 g/dL [facility] Immature granulocytes (Bld) [#/Vol] 0.02 10*3/uL [facility] Immature granulocytes/100 WBC (Bld) 0.20 % [facility] Comment on above: The IG parameter is the percentage of metamyelocytes, myelocytes, and promyelocytes. Interpretation and review of laboratory results Abnormal [facility] Lymphocytes (Bld) [#/Vol] 1.22 10*3/uL [facility] Lymphocytes/100 WBC (Bld) 11.1 % [facility] MCH (RBC) [Entitic mass] 32.3 pg 26 - 34 pg [facility] MCHC (RBC) [Mass/Vol] 31.1 g/dL 31 - 37 g/dL [facility] MCV (RBC) [Entitic vol] 104.2 fL High 80 - 100 fL [facility] Monocytes (Bld) [#/Vol] 0.89 10*3/uL [facility] Monocytes/100 WBC (Bld) 8.1 % [facility] Neutrophils (Bld) [#/Vol] 8.75 10*3/uL High [facility] Neutrophils/100 WBC (Bld) 79.9 % [facility] Platelet mean volume (Bld) [Entitic vol] 9.0 fL 9 - 15.5 fL [facility] Platelets (Bld) [#/Vol] 241 10*3/uL [facility] RBC (Bld) [#/Vol] 3.37 10*6/uL Low [facility] WBC (Bld) [#/Vol] 10.95 10*3/uL [facility] CT HEAD OR BRAIN WITHOUT CON TRASTon 02-23-2019 EXAMINATION: CT HEAD OR BRAIN WITHOUT CONTRAST 02/23/2019 COMPARISON: None. HISTORY: Injury/Trauma or Illness?:Illness/Ot her How long have you had these symptoms (acute/chronic)?:[place] Altered mental status Pt having trouble staying [...] cells are clear. No acute osseous abnormality. [facility] Interface, Rad In Joeli Speechq - 02/23/2019 3:59 PM EST EXAMINATION: CT HEAD OR BRAIN WITHOUT CONTRAST 02/23/2019 COMPARISON: None. HISTORY: Injury/Trauma or Illness?:Illness/Ot her How long have you had these symptoms (acute/chronic)?:Ac [place] Altered mental status Pt having trouble staying [...] medication. Correlate clinically. GJT/lab Workstation ID: [id number] [facility] 1. No acute intracranial abnormality identified. 2. Mild cerebral and cerebellar atrophy greater than typically seen for patient's age. This may be on the basis of chronic use of antiseizure medication. Correlate clinically. GJT/lab Workstation ID: [id number] [facility] DRUGS OF ABUSE SCREEN, URINE on 02-23-2019 Amphetamines Ql (U) None Detected None Detected [facility] Comment on above: Urine Amphetamine Cu toff: < 1000 ng/mL = None Detected Barbiturates Screen Ql (U) None Detected None Detected [facility] Comment on above: Urine Barbiturates C utoff: < 200 ng/mL = None Detected Benzodiazepines Ql (U) None Detected None Detec shayy [facility] Comment on above: Urine Benzodiazepine Cutoff: < 200 ng/mL = None Detected Cannabinoids Screen Ql (U) None Detected None Detected [facility] Comment on above: Urine Cannabinoids C utoff: < 50 ng/mL = None Detected Cocaine Ql (U) None Detected None Detected [facility] Comment on above: Urine Cocaine Cutoff : < 300 ng/mL = None Detected Interpretation and review of laboratory results Normal [facility] Methadone Screen Ql (U) None Detected None Dete cted [facility] Comment on above: Urine Methadone Cuto ff: < 300 ng/mL = None Detected Opiates Screen Ql (U) None Detected None Detect ed [facility] Comment on above: Urine Opiates Cutoff : < 300 ng/mL = None Detected Oxycodone Ql (U) None Detected None Detected [facility] Comment on above: Urine Oxycodone Cuto ff: < 100 ng/mL = None Detected Screen results should be used for treatment purposes only. [facility] ECG 12-LEADon 02-23-2019 Atrial Rate 80 BPM [facility] P [place] 34 degrees [facility] P-R Interval 194 ms [facility] Q-T Interval 400 ms [facility] QRS Duration 122 ms [facility] QTC Calculation (Bezet) 461 ms [facility] [place] 43 degrees [facility] T [place] 62 degrees [facility] Ventricular Rate 80 BPM [facility] ECG Cart Interpretation see physician note for interpretation. Normal sinus rhythm Right bundle branch block Cannot rule out Inferior infarct , age undetermined Abnormal ECG Confirmed by Agata Johnston ([id number]) on 02/23/2019 3:42:27 PM [facility] Hepatic Function Panel (LFT) on 02-23-2019 Albumin [Mass/Vol] 2.6 g/dL Low 3.2 - 5.2 g/dL [facility] ALP [Catalytic activity/Vol] 73 U/L 40 - 140 U/L [facility] ALT [Catalytic activity/Vol] 21 U/L 14 - 65 U/L [facility] AST [Catalytic activity/Vol] 18 U/L 0 - 45 U/L [facility] Bilirubin [Mass/Vol] 0.1 mg/dL 0 - 1.3 mg/dL [facility] Bilirubin.conjugated [Mass/Vol] mg/dL 0 - 0.4 mg/dL [facility] Protein [Mass/Vol] 7.4 g/dL 6 - 8 g/dL [facility] Lactic Acid, Plasmaon 2019 Interpretation and review of laboratory results Normal [facility] Lactate [Moles/Vol] 0.7 mmol/L 0.6 - 2 mmol/L [facility] Lipaseon 02-23-2019 Lipase [Catalytic activity/Vol] 129 U/L 73 - 393 U/L [facility] NT Pro BNPon 02-23-2019 Interpretation and review of laboratory results Normal [facility] Natriuretic peptide.B prohormone N-Terminal [Mass/Vol] 252 pg/mL 0 - 300 pg/mL [facility] Pride Study Cut-offs Rule In: < /= 50 Years >450 pg/mL 51 Years - 75 Years >900 pg/mL 76 Years - 99 Years >1800 pg/mL Rule Out: All patients <300 pg/mL [facility] Otheron 02-23-2019 Interpretation and review of laboratory results Abnormal [facility] Interpretation and review of laboratory results Normal [facility] POC ARTERIAL BLOOD GAS PANEL [facility] 02-23-2019 Base excess Calc (Bld) [Moles/Vol] 5.8 mmol/L High [facility] Breath rate setting Ventilator synchronized intermittent mandatory 0 [facility] CO2 (Bld) [Partial pressure] 56.6 mm[Hg] High [facility] HCO3 (Bld) [Moles/Vol] 32.5 mmol/L High 22 - 26 mmol /L [facility] Hematocrit (BldA) [Volume fraction] 35.0 % Low 41 - 53 % [facility] Hemoglobin (Bld) [Mass/Vol] 11.4 g/dL Low 13.5 - 18 g/dL [facility] Inhaled oxygen concentration 0 % [facility] Interpretation and review of laboratory results Abnormal [facility] Oxygen (Bld) [Partial pressure] 82 mm[Hg] [facility] pH (Bld) 7.37 [pH] [facility] SaO2% (BldA) [Mass fraction] 96.7 % 92 - 99 % [facility] Tidal volume setting Ventilator 0 [facility] POC Arterial Blood Gaseson 0 02-23-2019 Base Excess, Arterial 5 High [facility] CO2 (Bld) [Partial pressure] 64.2 mm[Hg] High [facility] HCO3 (Bld) [Moles/Vol] 33.1 mmol/L High 22 - 26 mmol /L [facility] Hematocrit (Bld) [Volume fraction] 34 % Low 41 - 53 % [facility] Hemoglobin (Bld) [Mass/Vol] 11.6 g/dL Low 13.5 - 17.5 g/dL [facility] Interpretation and review of laboratory results Abnormal [facility] Oxygen (Bld) [Partial pressure] 76 mm[Hg] Low [facility] pH (Bld) 7.32 [pH] Low [facility] SaO2% (BldA) [Mass fraction] 93.0 % 92 - 99 % [facility] POC Glucoseon 02-23-2019 Glucose [Mass/Vol] 100 mg/dL Abnormal 65 - 99 mg/dL [facility] Interpretation and review of laboratory results Abnormal [facility] Glucose [Mass/Vol] 100 mg/dL High 65 - 99 mg/dL [facility] Interpretation and review of laboratory results Abnormal [facility] PT/INRon 02-23-2019 INR Coag (PPP) [Relative time] 1.1 {INR} [facility] Interpretation and review of laboratory results Normal [facility] PT Coag (PPP) [Time] 13.8 s [facility] During the induction phase of oral anticoagulation, the INR may not reflect the anticoagulation status of the patient. Therapeutic ranges for INR's are: Most clinical situations: INR 2.0-3.0 Mechanical Prosthetic Valve: INR 2.5-3.5 Critical: INR >5.0 [facility] TSH with Reflex Free T4on TSH Qn 1.01 m[IU]/L [facility] URINALYSISon 02-23-2019 Bacteria Auto Ql (U) Rare Abnormal None Seen /hpf [facility] Bilirubin Ql (U) Negative Negative [facility] Clarity Refractometry automated (U) Clear Clear [facility] Color (U) Yellow Colorless, Yellow [facility] Epithelial cells.squamous Auto (Urine sed) [#/Area] 1 [facility] Glucose Auto test strip (U) [Mass/Vol] Negative Negative mg/dL [facility] Hemoglobin Auto test strip Ql (U) Negative Negative [facility] Interpretation and review of laboratory results Abnormal [facility] Ketones (U) [Mass/Vol] Negative Negative mg/d L [facility] Leukocyte esterase Auto test strip Ql (U) Negative Negative [facility] Nitrite Auto test strip Ql (U) Negative Negative [facility] pH (U) 6.0 [pH] [facility] Protein (U) [Mass/Vol] Negative Negative mg/d L [facility] Specific gravity (U) [Rel density] 1.015 [facility] Urobilinogen (U) [Mass/Vol] <2.0 <2.0 mg/dL [facility] WBC Auto (Urine sed) [#/Area] 1 [facility] Microscopic examination is performed on all urinalysis samples and only positive findings are reported. The test for blood on the chemical analytic portion of urinalysis may also be positive due to hemoglobinuria and myoglobinuria and if red blood cells are present they are quantified by microscopic examination. [facility] Valproic Acid Levelon 2019 Interpretation and review of laboratory results Normal [facility] Valproate [Mass/Vol] 72 ug/mL [facility] XR Chest 1 Viewon 02-23-2019 EXAMINATION: 1 VIEW XR CHEST PA/AP, 02/23/2019 COMPARISON: Chest, 01/06/2018 HISTORY: Injury/Trauma or Illness?:Illness/Ot her How long have you had these symptoms (acute/chronic)?:Ac [place] Altered mental status [facility] 1. Mild diffuse interstitial edema and/or mild inflammatory infectious pneumonitis. Correlate clinically. 2. Mild prominent cardiac silhouette slightly accentuated due to patient rotation to the left. 3. No acute osseous abnormality. [email or web address] Workstation ID: [id number] [facility] Interface, Rad In [facility] Speechq - 02/23/2019 3:59 PM EST EXAMINATION: 1 VIEW XR CHEST PA/AP, 02/23/2019 COMPARISON: Chest, 01/06/2018 HISTORY: Injury/Trauma or Illness?:Illness/Ot her How long have you had these symptoms (acute/chronic)?:Ac [place] Altered mental status IMPRESSION: 1. Mild diffuse interstitial edema and/or mild inflammatory infectious pneumonitis. Correlate clinically. 2. Mild prominent cardiac silhouette slightly accentuated due to patient rotation to the left. 3. No acute osseous abnormality. [email or web address] Workstation ID: [id number] [facility] CBC, EDIF, PLATELETon 2017 ABSOLUTE BASOPHIL COUNT 0.0 Invalid Interpretation Code X10 [address] Comment on above: Testing performed at [place], [place] [address] Basophils/100 WBC Auto (Bld) 0.1 % Invalid Interpretation Code 0 - 2 % [address] Differential cell count method Nom (Bld) AUTO DIFF Invalid Interpretation Code % [address] Eosinophils Auto #/vol (Bld) 0.00 10*3/uL Invalid Interpretation Code X10 [address] Eosinophils/100 WBC Auto (Bld) 0.0 % Invalid Interpretation Code 0 - 11 % [address] Erythrocyte distribution width Ratio (RBC) 15.3 % High 11.5 - 14.5 % [address] Hematocrit Auto Volume Fraction (Bld) 35.6 % Low 42 - 52 % [address] Hemoglobin mass conc (Bld) 11.7 g/dL Low [address] Lymphocytes Manual cnt #/vol (Bld) 1.50 Invalid Interpretation Code X10 [address] Lymphocytes/100 WBC Auto (Bld) 16.7 % Low 20 - 55 % [address] MCH Auto Entitic mass (RBC) 33.1 pg Invalid Interpretation Code 26 - [address] MCHC Auto mass conc (RBC) 32.8 g/dL Invalid Interpretation Code [address] MCV Auto Entitic volume (RBC) 101.2 fL High [address] Monocytes Manual cnt #/vol (Bld) 0.5 Invalid Interpretation Code X10 [address] Monocytes/100 WBC Auto (Bld) 5.2 % Invalid Interpretation Code 0 - 10 % [address] Neutrophils Auto #/vol (Bld) 7.0 10*3/uL Invalid Interpretation Code [address] Neutrophils/100 WBC Auto (Bld) 78.0 % High 37 - 75 % [address] Platelet mean volume Auto Entitic volume (Bld) 7.6 fL Invalid Interpretation Code [address] Platelets Auto #/vol (Bld) 213 10*3/uL Invalid Interpretation Code [address] RBC Auto #/vol (Bld) 3.52 10*6/uL Low [place] [address] WBC Auto #/vol (Bld) 9.0 10*3/uL Invalid Interpretation Code [facility] - [address] [facility] [address] CHEST WITHOUT CONTRASTon 01-08-2018 EXAM: CT [...] 01-08-2018 Magnesium mass conc 2.4 mg/dL High [address] Comment on above: Testing performed at [facility], [place], [place] [address] Otheron 01-08-2018 Interpretation and review of laboratory results Abnormal Invalid Interpretation Code [address] RENAL FUNCTION PANELon 01-08 Albumin mass conc 3.5 G/dl Invalid Interpretation Code 3.5 - 5 G/dl [address] Calcium mass conc 8.8 mg/dL Invalid Interpretation Code [address] Chloride molar conc 113 mmol/L High [address] Comment on above: Please note: Triglyc eride levels of 600mg/dL or higher may positively bias chloride results by approximately 2.1 mmol CO2 molar conc 28 mmol/L Invalid Interpretation Code [address] Creatinine mass conc 1.0 mg/dL Invalid Interpretation Code [address] GFR/1.73 sq M predicted among blacks MDRD vol rate/area (S/P/Bld) mL/min/{1.73_m2} Invalid Interpretation Code ml/min/1.73sq. m [address] GFR/1.73 sq M predicted among non-blacks MDRD vol rate/area (S/P/Bld) Average GFR for 20-29 years old = 116. Invalid Interpretation Code [address] Comment on above: Chronic Kidney disea se, GFR = <60. Kidney failure, GFR = <15. The GFR estimate is not adjusted for extreme body surface area or acute process, nor has it been validated for women or ethnic groups other than and . Testing performed at [place], [place] [address] GFR/1.73 sq M predicted among non-blacks MDRD vol rate/area (S/P/Bld) mL/min/{1.73_m2} Invalid Interpretation Code ml/min/1.73sq. m [address] Glucose fasting mass conc 106 mg/dL [address] Comment on above: NORMAL <100 mg/dL RI EDIABETES 101-126 mg/dL DIABETES 126 mg/dL or higher Phosphate mass conc 3.0 mg/dL Invalid Interpretation Code [address] Potassium molar conc 4.4 mmol/L Invalid Interpretation Code [address] Sodium molar conc 145 mmol/L Invalid Interpretation Code [address] Urea nitrogen mass conc 11 mg/dL Invalid Interpretation Code [address] CBC, EDIF, PLATELETon 2017 ABSOLUTE BASOPHIL COUNT 0.0 Invalid Interpretation Code X10 [address] Comment on above: Testing performed at [place], [place] [address] Basophils/100 WBC Auto (Bld) 0.1 % Invalid Interpretation Code 0 - 2 % [address] Differential cell count method Nom (Bld) AUTO DIFF Invalid Interpretation Code % [address] Eosinophils Auto #/vol (Bld) 0.00 10*3/uL Invalid Interpretation Code X10 [address] Eosinophils/100 WBC Auto (Bld) 0.0 % Invalid Interpretation Code 0 - 11 % [address] Erythrocyte distribution width Ratio (RBC) 15.4 % High 11.5 - 14.5 % [address] Hematocrit Auto Volume Fraction (Bld) 35.0 % Low 42 - 52 % [address] Hemoglobin mass conc (Bld) 11.4 g/dL Low [address] Lymphocytes Manual cnt #/vol (Bld) 1.20 Invalid Interpretation Code X10 [address] Lymphocytes/100 WBC Auto (Bld) 9.7 % Low 20 - 55 % [address] MCH Auto Entitic mass (RBC) 32.9 pg Invalid Interpretation Code 26 - [address] MCHC Auto mass conc (RBC) 32.5 g/dL Invalid Interpretation Code [address] MCV Auto Entitic volume (RBC) 101.3 fL High [address] Monocytes Manual cnt #/vol (Bld) 0.6 Invalid Interpretation Code X10 [address] Monocytes/100 WBC Auto (Bld) 5.1 % Invalid Interpretation Code 0 - 10 % [address] Neutrophils Auto #/vol (Bld) 10.6 10*3/uL High [address] Neutrophils/100 WBC Auto (Bld) 85.1 % High 37 - 75 % [address] Platelet mean volume Auto Entitic volume (Bld) 7.4 fL Invalid Interpretation Code [address] Platelets Auto #/vol (Bld) 216 10*3/uL Invalid Interpretation Code [address] RBC Auto #/vol (Bld) 3.45 10*6/uL [address] WBC Auto #/vol (Bld) 12.5 10*3/uL [address] [facility]on 12-15 L. pneumophila 1 Ag IA Ql (U) Negative Invalid Interpretation Code NEGATIVE [address] Comment on above: Testing performed at [place], [place] [address] MAGNESIUMon 01-07-2018 Magnesium mass conc 2.2 mg/dL Invalid Interpretation Code [address] Comment on above: Testing performed at [place] [id number] Otheron 01-07-2018 Interpretation and review of laboratory results Abnormal Invalid Interpretation Code [address] RENAL FUNCTION PANELon 01-07 Albumin mass conc 3.3 G/dl Low 3.5 - 5 G/dl [address] Calcium mass conc 8.3 mg/dL Low [address] Chloride molar conc 111 mmol/L High [address] Comment on above: Please note: Triglyc eride levels of 600mg/dL or higher may positively bias chloride results by approximately 2.1 mmol CO2 molar conc 27 mmol/L Invalid Interpretation Code [address] Creatinine mass conc 1.2 mg/dL Invalid Interpretation Code [address] GFR/1.73 sq M predicted among blacks MDRD vol rate/area (S/P/Bld) mL/min/{1.73_m2} Invalid Interpretation Code ml/min/1.73sq. m [address] GFR/1.73 sq M predicted among non-blacks MDRD vol rate/area (S/P/Bld) mL/min/{1.73_m2} Invalid Interpretation Code ml/min/1.73sq. m [address] GFR/1.73 sq M predicted among non-blacks MDRD vol rate/area (S/P/Bld) Average GFR for 20-29 years old = 116. Invalid Interpretation Code [address] Comment on above: Chronic Kidney disea se, GFR = <60. Kidney failure, GFR = <15. The GFR estimate is not adjusted for extreme body surface area or acute process, nor has it been validated for women or ethnic groups other than and . Testing performed at [place], [place] [address] Glucose fasting mass conc 109 mg/dL [address] Comment on above: NORMAL <100 mg/dL RI EDIABETES 101-126 mg/dL DIABETES 126 mg/dL or higher Phosphate mass conc 2.9 mg/dL Invalid Interpretation Code [address] Potassium molar conc 4.2 mmol/L Invalid Interpretation Code [address] Sodium molar conc 146 mmol/L High [address] Urea nitrogen mass conc 10 mg/dL Invalid Interpretation Code [address] STREP PNEUMONIAE ANTIGEN, UR INEon 01-07-2018 S. pneumoniae Ag Ql (U) Negative Invalid Interpretation Code NEGATIVE [address] Comment on above: Testing performed at [place], [place] [address] B-TYPE NATRIURETIC PEPTIDE ( BRAIN)on 01-06-2018 Natriuretic peptide B mass conc (Bld) 61 pg/mL Invalid Interpretation Code 0 - 100 pg/mL [address] Comment on above: Testing performed at [place], [place] [address] BASIC METABOLIC PANELon 12-15 Anion gap 3 molar conc 6 mmol/L Low [place] [address] Calcium mass conc 8.8 mg/dL Invalid Interpretation Code [address] Chloride molar conc 107 mmol/L Invalid Interpretation Code [address] Comment on above: Please note: Triglyc eride levels of 600mg/dL or higher may positively bias chloride results by approximately 2.1 mmol CO2 molar conc 30 mmol/L Invalid Interpretation Code [address] Creatinine mass conc 1.3 mg/dL High [address] GFR/1.73 sq M predicted among blacks MDRD vol rate/area (S/P/Bld) mL/min/{1.73_m2} Invalid Interpretation Code ml/min/1.73sq. m [address] GFR/1.73 sq M predicted among non-blacks MDRD vol rate/area (S/P/Bld) Average GFR for 20-29 years old = 116. Invalid Interpretation Code [address] Comment on above: Chronic Kidney disea se, GFR = <60. Kidney failure, GFR = <15. The GFR estimate is not adjusted for extreme body surface area or acute process, nor has it been validated for women or ethnic groups other than and . Testing performed at [place], [place] [address] GFR/1.73 sq M predicted among non-blacks MDRD vol rate/area (S/P/Bld) mL/min/{1.73_m2} Invalid Interpretation Code ml/min/1.73sq. m [address] Glucose fasting mass conc 121 mg/dL High [address] Comment on above: NORMAL <100 mg/dL RI EDIABETES 101-126 mg/dL DIABETES 126 mg/dL or higher Potassium molar conc 4.3 mmol/L Invalid Interpretation Code [address] Sodium molar conc 143 mmol/L Invalid Interpretation Code [address] Urea nitrogen mass conc 13 mg/dL Invalid Interpretation Code [address] C REACTIVE PROTEINon 018 CRP mass conc 200.1 mg/L High 0 - 10 MG/L [address] Comment on above: Testing performed at [place], [place] [address] CBC, EDIF, PLATELETon 2017 ABSOLUTE BASOPHIL COUNT 0.0 Invalid Interpretation Code X10 [address] Comment on above: Testing performed at [place], [place] [address] Basophils/100 WBC Auto (Bld) 0.3 % Invalid Interpretation Code 0 - 2 % [address] Differential cell count method Nom (Bld) AUTO DIFF Invalid Interpretation Code % [address] Eosinophils Auto #/vol (Bld) 0.00 10*3/uL Invalid Interpretation Code X10 [address] Eosinophils/100 WBC Auto (Bld) 0.0 % Invalid Interpretation Code 0 - 11 % [address] Erythrocyte distribution width Ratio (RBC) 15.3 % High 11.5 - 14.5 % [address] Hematocrit Auto Volume Fraction (Bld) 41.2 % Low 42 - 52 % [address] Hemoglobin mass conc (Bld) 13.5 g/dL Low [address] Lymphocytes Manual cnt #/vol (Bld) 1.00 Invalid Interpretation Code X10 [address] Lymphocytes/100 WBC Auto (Bld) 7.1 % Low 20 - 55 % [address] MCH Auto Entitic mass (RBC) 32.6 pg Invalid Interpretation Code 26 - [address] MCHC Auto mass conc (RBC) 32.7 g/dL Invalid Interpretation Code [address] MCV Auto Entitic volume (RBC) 99.7 fL Invalid Interpretation Code [address] Monocytes Manual cnt #/vol (Bld) 1.2 Invalid Interpretation Code X10 [address] Monocytes/100 WBC Auto (Bld) 8.5 % Invalid Interpretation Code 0 - 10 % [address] Neutrophils Auto #/vol (Bld) 11.5 10*3/uL High [address] Neutrophils/100 WBC Auto (Bld) 84.1 % High 37 - 75 % [address] Platelet mean volume Auto Entitic volume (Bld) 7.2 fL Low [address] Platelets Auto #/vol (Bld) 241 10*3/uL Invalid Interpretation Code [address] RBC Auto #/vol (Bld) 4.13 10*6/uL Invalid Interpretation Code [address] WBC Auto #/vol (Bld) 13.7 10*3/uL High [place] [address] INFLUENZA A AND B, PCRon FLUBV Ag IA Ql (Unsp spec) Negative Invalid Interpretation Code NEGATIVE [address] Comment on above: TESTING PERFORMED BY [facility] Testing performed at [place] [address] INFLUENZA A Negative Invalid Interpretation Code NEGATIVE [address] LACTATE, BLOODon 01-06-2018 Lactate molar conc 1.2 mmol/L Invalid Interpretation Code [address] Comment on above: Testing performed at [place] [address] LITHIUM LEVELon 01-06-2018 Interpretation and review of laboratory results Abnormal Invalid Interpretation Code [address] [place] molar conc 0.40 mmol/L Low [address] Comment on above: Testing performed at [place] [id number] Otheron 01-06-2018 Interpretation and review of laboratory results Abnormal Invalid Interpretation Code [address] Interpretation and review of laboratory results Abnormal Invalid Interpretation Code [address] RESPIRATORY CULTUREon 2017 Bacteria identified Cx Nom (Unsp spec) USUAL OROPHARYNGEAL MARICRUZ Invalid Interpretation Code [address] Comment on above: MODERATE GROWTH Test ing performed at [place] [address] Microscopic observation Gram stain Nom (Unsp spec) MODERATE Invalid Interpretation Code [address] Comment on above: WBC'S SEEN FEW SQUAM OUS EPITHELIAL CELLS MODERATE MIXED GRAM POSITIVE MARICRUZ NONE APPEAR PREDOMINANT SPECIMEN IS OF LEAST ACCEPTABLE QUALITY REPORT STATUS 01/08/2018 Invalid Interpretation Code [address] Comment on above: FINAL SPECIMEN DESCRIPTION SPUTUM Invalid Interpretation Code [address] SCREEN: MRSA ONLY, NARES (IS OLATION SCREEN)on 01-06-2018 MRSA isol Org specific cx Ql (Nose) Negative Invalid Interpretation Code [address] STAPHYOCOCCUS AUREUS BY PCR Negative Invalid Interpretation Code [address] Comment on above: TESTING PERFORMED BY PCR Testing performed at [place] [address] SEDIMENTATION RATE, AUTOMATE Don 01-06-2018 ESR Velocity (Bld) 31 mm/h High [address] Comment on above: Testing performed at [place] [id number] TROPONINon 01-06-2018 Troponin I.cardiac mass conc ng/mL Invalid Interpretation Code 0 - 0.08 ng/mL [address] Comment on above: Testing performed at [place] [id number] TSHon 01-06-2018 Thyrotropin Qn 0.994 m[IU]/L Invalid Interpretation Code [address] Comment on above: Testing performed at [place] [id number] XR CHEST AP PORTABLEon 01-06 EXAM: XR [...] 68 mm[Hg] Liban Otero MD [facility] Phone[facility] 05-27-2023 15:00-0400 Heart rate 75 /min Liban Otero MD Work Phone: [facility] 05-27-2023 15:00-0400 SaO2% (BldA) [Mass fraction] 96 % Liban Otero MD Work Phone: [facility] 05-27-2023 15:00-0400 Systolic blood pressure 124 mm[Hg] Liban Otero MD Work Phone: [facility] 05-27-2023 14:49-0400 Respiratory rate 18 /min Liban Otero MD Work Phone: [facility] 05-27-2023 14:17-0400 Body height 144.8 cm Liban Otero MD Work Phone: [facility] [employer] 05-27-2023 14:16-0400 Body temperature 98.6 [degF] Liban Otero MD Work Phone: [facility] [employer] 11-03-2022 10:00-0400 Body height 157.48 cm Martha Yi Other [employer] Other 11-03-2022 10:00-0400 Body mass index (BMI) [Ratio] 29.08 kg/m2 Martha Yi Other [employer] Other 11-03-2022 10:00-0400 Body weight 72.12 kg Martha Yi Other [employer] Other 12-02-2021 12:30-0400 Body height 157.48 cm Thiago Chandler Other [employer] Other 12-02-2021 12:30-0400 Body mass index (BMI) [Ratio] 29.08 kg/m2 Thiago Chandler Other [employer] Other 12-02-2021 12:30-0400 Body temperature 97.1 [degF] Thiago Chandler Other [employer] Other 12-02-2021 12:30-0400 Body weight 72.12 kg Thiago Chandler Other [employer] Other 12-02-2021 12:30-0400 Diastolic blood pressure 78 mm[Hg] Thiago Chandler Other [employer] Other 12-02-2021 12:30-0400 SaO2% (BldA) [Mass fraction] 100 % Thiago Ramesh Other [employer] Other 12-02-2021 12:30-0400 Systolic blood pressure 114 mm[Hg] Thiago Chandler Other [employer] Other 11-04-2021 11:00-0400 Body height 157.48 cm Martha Yi Other [employer] Other 11-04-2021 11:00-0400 Body mass index (BMI) [Ratio] 29.28 kg/m2 Martha Yi Other [employer] Other 11-04-2021 11:00-0400 Body weight 72.62 kg Martha Yi Other [employer] Other 08-05-2021 14:00-0400 Body height 144.78 cm Thiago Chandler Other [employer] Other 08-05-2021 14:00-0400 Body mass index (BMI) [Ratio] 32.46 kg/m2 Thiago Ramesh Other [employer] Other 08-05-2021 14:00-0400 Body temperature 97 [degF] Thiago Ramesh Other [employer] Other 08-05-2021 14:00-0400 Body weight 68.04 kg Thiago Ramesh Other [employer] Other 08-05-2021 14:00-0400 Diastolic blood pressure 73 mm[Hg] Thiago Ramesh Other [employer] Other 08-05-2021 14:00-0400 SaO2% (BldA) [Mass fraction] 97 % Thiago Ramesh Other [employer] Other 08-05-2021 14:00-0400 Systolic blood pressure 110 mm[Hg] Thiago Ramesh Other [employer] Other 05-27-2021 09:30-0400 Body height 152.4 cm Franck Carballo MD Work Phone: [employer] 05-27-2021 09:30-0400 Body mass index (BMI) [Ratio] 30.47 kg/m2 Franck Carballo MD Work Phone: [facility] 05-27-2021 09:30-0400 Body weight 70.76 kg Franck Carballo MD Work Phone: [facility] 05-27-2021 09:30-0400 Diastolic blood pressure 69 mm[Hg] Franck Carballo MD Work Phone: [facility] 05-27-2021 09:30-0400 Heart rate 97 /min Franck Carballo MD Work Phone: [facility] 05-27-2021 09:30-0400 SaO2% (BldA) [Mass fraction] 91 % Franck Carballo MD Work Phone: [facility] 05-27-2021 09:30-0400 Systolic blood pressure 105 mm[Hg] Franck Carballo MD Work Phone: [facility] 03-01-2019 08:00-0500 Respiratory Rate 16 /min [facility] 03-01-2019 07:23-0500 BP Diastolic 69 mm[Hg] [facility] 03-01-2019 07:23-0500 BP Systolic 100 mm[Hg] [facility] 03-01-2019 07:23-0500 Pulse (Heart Rate) 91 /min [facility] [facility] 03-01-2019 07:23-0500 Pulse Oximetry 100 % [facility] 03-01-2019 06:00-0500 BMI (Body Mass Index) 44.56 kg/m2 [facility] 03-01-2019 06:00-0500 [facility] Comment on above: standing weight 03-01-2019 04:01-0500 Body Temperature 98.8 [degF] [facility] 02-25-2019 14:40-0500 Respiratory rate 17 /min [facility] 02-25-2019 10:56-0500 Respiratory rate 0 /min [facility] 02-23-2019 21:56-0500 Respiratory rate 0 /min [facility] 02-23-2019 18:33-0500 BP Diastolic 78 mm[Hg] Iftikhar [facility] 02-23-2019 18:33-0500 BP Systolic 139 mm[Hg] Iftikhar Kemp [facility] 02-23-2019 18:33-0500 Pulse (Heart Rate) 78 /min Iftikhar Kemp [facility] 02-23-2019 18:33-0500 Pulse Oximetry 99 % Iftikhar Kemp [facility] 02-23-2019 18:33-0500 Respiratory Rate 16 /min Iftikhar Kemp [facility] 02-23-2019 13:38-0500 BMI (Body Mass Index) 43.28 kg/m2 Iftikhar Kemp [facility] 02-23-2019 13:38-0500 Body Temperature 97.39 [degF] Iftikhar Kemp [facility] 02-23-2019 13:38-0500 Body weight 90.72 kg Iftikhar Kemp [facility] 02-23-2019 13:38-0500 Height 144.8 cm Iftikhar Kemp [facility] 01-08-2018 11:54-0500 Body Temperature 98.01 [degF] [facility] Work Phone: 01-08-2018 11:54-0500 BP Diastolic 48 mm[Hg] [facility] Work Phone: 01-08-2018 11:54-0500 BP Systolic 115 mm[Hg] [facility] Work Phone: 01-08-2018 11:54-0500 Pulse (Heart Rate) 75 /min [facility] Work Phone: 01-08-2018 11:54-0500 Pulse Oximetry 97 % [facility] Work Phone: 01-08-2018 11:54-0500 Respiratory Rate 18 /min [facility] Work Phone: 01-08-2018 03:51-0500 BMI (Body Mass Index) 45.89 kg/m2 [facility] Work Phone: 01-08-2018 03:51-0500 Weight 96.2 kg [facility] Work Phone: 01-06-2018 16:24-0500 Height 144.8 cm [facility] Work Phone: Encounters Encounter Date Encounter Type Care Provider Facility Start: 09-21-2023 End: 09-21-2023 ambulatory DO Iftikhar Kemp Work Phone: [facility] Work Phone: Start: 09-21-2023 End: 09-21-2023 Patient encounter procedure DO Iftikhar Kemp Work Phone: Count Includes [facility] Work Phone: Start: 09-21-2023 End: 09-21-2023 Patient encounter procedure DO Iftikhar Kemp Work Phone: [facility] Start: 09-21-2023 End: 09-21-2023 ambulatory DO Iftikhar Kemp Work Phone: [facility] Work Phone: Start: 09-07-2023 End: 09-07-2023 ambulatory [facility] Work Phone: Start: 09-07-2023 End: 09-07-2023 Patient encounter procedure Count Includes [facility] Work Phone: Start: 07-04-2023 End: 07-05-2023 ambulatory IFTIKHAR KEMP Facility:[facility] Start: 07-04-2023 End: 07-04-2023 Patient encounter procedure IFTIKHAR KEMP [facility] Start: 05-27-2023 End: 05-27-2023 Emergency department patient visit IFTIKHAR KEMP [facility] Start: 05-27-2023 End: 05-27-2023 Emergency department patient visit Liban Otero MD Work Phone: [facility] Start: 05-10-2023 End: 05-11-2023 ambulatory IFTIKHAR KEMP Facility:[facility] Start: 05-10-2023 End: 05-10-2023 Lab Drop off IFTIKHAR KEMP [facility] Start: 05-03-2023 End: 05-03-2023 ambulatory [facility] Work Phone: Start: 05-03-2023 End: 05-03-2023 Patient encounter procedure Count Includes [facility] Work Phone: Start: 11-30-2022 End: 11-30-2022 Patient encounter procedure DO Iftikhar Kemp Work Phone: [facility] Work Phone: Start: 11-30-2022 End: 11-30-2022 ambulatory DO Iftikhar Kemp Work Phone: [facility] Work Phone: Start: 11-03-2022 End: 11-03-2022 ambulatory Martha Yi Other [employer] Other Start: 11-03-2022 Office outpatient vi sit 25 minutes Martha Yi [facility] Start: 05-25-2022 End: 05-25-2022 Patient encounter procedure IFTIKHAR KEMP [facility] Start: 05-17-2022 End: 05-18-[address] IFTIKHAR KEMP Facility: Start: 02-22-2022 [facility] encounter [facility] Start: 01-11-2022 End: 01-11-2022 ambulatory DO Iftikhar Kemp Work Phone: [facility] Work Phone: Start: 01-11-2022 End: 01-11-2022 Patient encounter procedure DO Iftikhar Kemp Work Phone: [facility] Start: 12-02-2021 Office outpatient vi sit 25 minutes Thiago Chandler [facility] Start: 12-02-2021 End: 12-02-2021 ambulatory DO Iftikhar Kemp Work Phone: [employer] Other Start: 12-02-2021 End: 12-02-2021 Patient encounter procedure DO Iftikhar Kemp Work Phone: [facility] Start: 11-04-2021 End: 11-04-2021 ambulatory Martha Yi Other [employer] Other Start: 11-04-2021 Office outpatient vi sit 25 minutes Martha Yi [facility] Start: 10-13-2021 End: 10-13-2021 Patient encounter procedure DO Iftikhar Kemp Work Phone: [facility] Start: 09-22-2021 ambulatory UNKNOWN PROVIDER Facili ty:[facility] Start: 09-22-2021 End: 09-22-2021 Patient encounter procedure Renetta Bautista DDS Work Phone: [facility] Start: 08-05-2021 End: 08-05-2021 ambulatory Thiago Chandler Other [employer] Other Start: 08-05-2021 Office outpatient vi sit 25 minutes Thiago Chandler [facility] Start: 08-05-2021 End: 08-05-2021 Patient encounter procedure DO Iftikhar Kemp Work Phone: [facility] Start: 07-14-2021 End: 07-15-[address] DOCTOR RUSSELL Facility: Start: 06-08-2021 End: 06-09-2021 ambulatory UNKNOWN PROVIDER Facility:[facility] Start: 06-08-2021 End: 06-09-2021 Patient encounter procedure Vivi Clemons [facility] Work Phone: [facility] Start: 06-03-2021 End: 06-03-2021 ambulatory [facility] Start: 06-01-2021 End: 06-02-[address] IFTIKHAR KEMP Facility:[facility] Start: 05-27-2021 End: 05-27-2021 ambulatory FRANCK CARBALLO [facility] Start: 05-27-2021 End: 05-27-2021 Office outpatient new 30 minutes Franck Carballo MD Work Phone: [facility] Comment on above: Esophageal dysphagia (Primary Dx); Food bolus obstruction of intestine (HCC) Start: 05-03-2021 End: 05-06-2021 Evaluation and management of inpatient ZULAY SVITLANA [facility] Start: 05-02-2021 End: 05-03-2021 Emergency department patient visit [facility] Start: 07-08-2020 End: 07-09-2020 ambulatory [facility] Start: 07-08-2020 End: 07-08-2020 Subsequent hospital visit by physician Iftikhar Kemp DO Work Phone: [facility] Comment on above: Arrived Start: 04-02-2020 End: 04-02-2020 Orders Only Melissa Summer Presley Work Phone: [facility] Start: 02-23-2019 End: 03-01-2019 Evaluation and management of inpatient Generic [facility] Work Phone: [facility] Comment on above: Acute metabolic ence phalopathy (Primary Dx) Start: 02-23-2019 End: 02-23-2019 Emergency department patient visit [facility] Start: 01-06-2018 End: [...] Phone: Start: 05-27-2023 Creatinine blood Sandeep Jones DEVICE REPAIR TECHNICIAN Work Phone: Start: 07-08-2020 Radiologic exam swal [...] of arteri al blood gas studies Generic [facility] Work Phone: Start: 02-25-2019 OBTAIN ARTERIAL BLOO D GASES AND PERFORM Stuart Mcgrath Work Phone: Start: 02-25-2019 Videofluoroscopy swallow Stuart Mcgrath Work Phone: Start: 02-25-2019 Contrast echocardiography Holden Whiteside Work Phone: Start: 02-25-2019 [place] [Moles/volum e] in Serum or Plasma Stuart Mcgrath Work Phone: Start: 02-24-2019 Influenza virus A AN D B antigen assay Stuart Mcgrath Work Phone: Start: 02-24-2019 Evaluation of arteri al blood gas studies Generic [facility] Work Phone: Start: 02-24-2019 OBTAIN ARTERIAL [...] of arteri al blood gas studies Generic [facility] Work Phone: Start: 02-23-2019 Blood count hematocrit [facility] Start: 02-23-2019 Drugs of [...] End: 01-08-2018 Assay of magnesium Bonnie J [employer] Work Phone: Start: 01-08-2018 End: 01-08-2018 CBC, EDIF, PLATELET Bonnie J [employer] Work Phone: Start: 01-08-2018 End: 01-08-2018 Renal function panel Bonnie J [employer] Work Phone: Start: 01-07-2018 End: 01-07-2018 CT of chest Bonnie J [employer] Work Phone: Start: 01-07-2018 End: 01-07-2018 Assay of magnesium Bonnie J [employer] Phone: Start: 01-07-2018 End: 01-07-2018 CBC, EDIF, PLATELET Bonnie J [employer] Phone: Start: 01-07-2018 End: 01-07-2018 Renal function panel Bonnie J [employer] Work Phone: Start: 01-07-2018 End: 01-07-2018 Iaad ia mult step method nos each organism [place] [facility] Phone: Start: 01-06-2018 End: 01-06-2018 Cul bact xcpt urine blood/stool aerobic isol Bonnie J [employer] Phone: Start: 01-06-2018 End: 01-06-2018 C-reactive protein Bonnie [employer] Phone: Start: 01-06-2018 End: 01-06-2018 Sedimentation rate rbc non-automated Bonnie [employer] Phone: Start: 01-06-2018 End: 01-06-2018 Cultyp nuc [...] 2) [facility] Start: 10-04-2028 Tetanus vaccination [facility] Start: 10-15-2023 Influenza vaccination INFLUENZA VACCINE (Season Ended) [facility] Start: 09-21-2023 Plain X-ray of right wrist XR wrist RT 2V [facility] Start: 09-21-2023 XR Wrist - right 2 Views [facility] Start: 10-14-2022 COVID-19 VACCINE ( season) COVID-19 VACCINE ( season) [facility] Start: 11-13-2021 Influenza vaccination Influ[facility] Start: 06-03-2021 End: 06-03-2021 Admission to same day surgery center 06/03/2021 Surgery Franck Carballo MD [address] [address] ESOPHAGOGASTRODUODENOSCOPY [facility] Comment on above: ESOPHAGOGASTRODUODENOSCOPY Start: 06-03-2021 End: 06-03-2021 Esophagogastroduodenoscopy ESOPHAGOGASTRODUODENOSCOPY Esophageal dysphagia Food bolus obstruction of intestine (HCC) 06/03/2021 8:10 AM EDT [facility] Start: 06-03-2021 Subsequent hospital visit by physician 06/03/2021 Hospital Encounter Franck Carballo MD [address] [address] [facility] Start: 10-14-2020 Influenza vaccination Sequential Influenza Vaccine (Season Ended) [facility] Start: 08-14-2020 COVID-19 Vaccine (3 - Booster for Pfizer series) COVID-19 Vaccine (3 - Booster for Pfizer series) [facility] Start: 05-12-2020 COVID-19 Vaccine (3 - Booster for Pfizer series) COVID-19 Vaccine (3 - Booster for Pfizer series) [facility] Start: 10-15-2019 Influenza vaccination given Sequential Influenza Vacci ne (#1) [facility] Start: 01-06-2019 Thyroid stimulating hormone measurement TSH [facility] Start: 01-06-2019 Thyrotropin Qn TSH [facility] Work Phone: Start: 10-14-2018 Influenza vaccination given SEQUENTIAL INFLUENZA VACCI NE (#1) [facility] Start: 10-14-2017 Influenza vaccination INFLUENZA VACCINE (#1) [facility] Work Phone: Start: 07-13-2015 Tetanus vaccination TETANUS [facility] Start: 08-22-2011 Hepatitis B vaccination HEP B VACCINE (1 of 3 - 19+ 3-dose series) [facility] Start: 08-22-2011 Third diphtheria, tetanus and acellular pertussis (DTaP) vaccination TDAP (ADULT) [facility] Work Phone: Start: 2010 Hepatitis C antibody, confirmatory test [facility] Start: 2010 Hep[facility] C [facility] Start: 2010 Tetanus + diphtheria + acellular pertussis vaccine (product) Tdap [employer] Start: 2010 Tetanus vaccination TETANUS [facility] Work Phone: Start: 08-22-2007 HIV screening [facility] Start: 2005 HIV screening HIV SCREENING DISCUSSION [facility] Work Phone: Start: 2004 Adolescent depression screening assessment Depression Screening (PHQ9) [facility] Start: 2004 COVID-19 Vaccine (1) COVID-19 Vaccine (1) [facility] Start: 2004 Depression screening using PHQ-9 (Patient Health Questionnaire 9) score [facility] Start: 08-22-1995 History and physical examination, annual for health maintenance Wellness Visit [facility] Start: 1992 Hepatitis C screening HEPATITIS C VIRUS SCREENING [facility] Start: 1992 Tetanus vaccination TETANUS EVERY 10 YR [facility] Bacteria identified Cx Nom (Bld) [facility] Work Phone: End: 02-23-2019 Bacteria identified Cx Nom (Bld) Blood Culture Aerobic/Anaerobic Microbiology Routine Once for 1 Occurrences starting 02/23/2019 until 02/23/2019 [facility] Comment on above: Once for 1 Occurrences starting 02/23/19 20 until 02/23/2019 CBC, EDIF, PLATELET CBC, EDIF, P LATELET Routine Every morning Lab until discontinued starting 01/07/2018, 2 completed [facility] Work Phone: Comment on above: Every morning Lab until discontinued sta rting 01/07/2018, 2 completed MAGNESIUM MAGNESIUM Routin e Every morning Lab until discontinued starting 01/07/2018, 2 completed [facility] Work Phone: Comment on above: Every morning Lab until discontinued sta rting 01/07/2018, 2 completed RENAL FUNCTION PANEL RENAL FUNCT ION PANEL Routine Every morning Lab until discontinued starting 01/07/2018, 2 completed [facility] Work Phone: Comment on above: Every morning Lab until discontinued sta rting 01/07/2018, 2 completed Standard ECG ECG STAT 11/24/2 018 12:02 PM EST [facility] Work Phone: Immunizations Immunization Date Immunization Notes Care Provider Vimal angulo 03-17-2020 COVID-19 Vaccine Pfizer - Documentation Purposes Only Thiago Ramesh Other [facility] 02-25-2020 COVID-19 Vaccine Pfizer - Documentation Purposes Only Thiago Chandler Other [facility] 11-20-2019 influenza, injectabl e, quadrivalent, preservative free Vivi Deonte RDH Work Phone: [facility] 11-20-2019 influenza virus vaccine, unspecified formulation Renetta Lily DDS Work Phone: [facility] 11-22-2017 influenza, injectabl e, quadrivalent, preservative free Vivi Deonte RDH Work Phone: [facility] 12-07-2016 influenza, injectabl e, quadrivalent, contains preservative Vivi Deonte RDH Work Phone: [facility] 11-18-2015 influenza, seasonal, injectable Vivi Deonte RDH Work Phone: [facility] 12-04-2014 influenza, injectabl e, quadrivalent, preservative free Vivi Deonte RDH Work Phone: [facility] 12-19-2013 influenza, injectabl e, quadrivalent, preservative free Vivi Deonte RDH Work Phone: [facility] 12-12-2012 influenza, seasonal, injectable Vivi Deonte RDH Work Phone: [facility] 12-07-2011 influenza, seasonal, injectable Vivi Deonte RDH Work Phone: [facility] 10-27-2010 influenza virus vaccine, whole virus Vivi Deonte RDH Work Phone: [facility] 12-31-2008 novel [id number], preservative-free, injectable Vivi Franciscorillo RD Work Phone: [facility] 07-12-2005 TD(adult) unspecifie d formulation Vivi Franciscorillo RD Work Phone: [facility] Payers Date Payer Category Payer Self-pay [id number] 2019 Medicaid [place] xxxxxxxxxxxx 2019-Present [id number] 2019 Medicaid [place] [id number] 2019-Present [id number] 2017 Medicaid [id number] 1992 Unknown [id number] 1992 Unknown [id number] 1992 Unknown [id number]. 1992 Unknown [id number] 1992 Unknown [id number] [id number]. 1992 Unknown [id number] [id number]. 1992 Unknown [id number] 1992 Unknown [id number] 1992 Unknown [id number] 1992 Unknown [id number] 1992 Unknown [id number] 1992 Unknown [id number] 1992 Unknown [id number] 1959 Medicaid [id number] Unknown [id number] Unknown [id number] Social History Date Type Detail Facility Start: 01-06-2018 End: 02-22-2019 Tobacco smoking status NHIS Never smoker [facility] Work Phone: Start: 1990 Sex Assigned At Not on file [facility] Work Phone: Start: 02-23-2019 End: 05-27-2021 Alcohol intake Lifetime non-drinker (finding) [facility] Start: 02-23-2019 End: 02-28-2019 History SDOH Alcohol Frequency 1 [facility] Start: 01-06-2018 End: 02-28-2019 Tobacco use and exposure Never used [facility] Start: 05-17-2021 End: 05-27-2021 Exposure to SARS-CoV-2 (event) Not sure [facility] Tobacco smoking stat us DEIS Tobacco smoking consumption [facility] Start: 01-09-2019 Sex Assigned At F [facility] Start: 1990 Sex Assigned At Male F [facility] Tobacco smoking status No Smokin g Status Entered [facility] [place] Start: 05-27-2023 Alcoholic beverage intake Current non-drinker of alcohol (finding) [facility] Start: 01-09-2019 History of Social function [facility] Start: 01-06-2018 Gender identity Identifies as male gender (finding) [facility] Clinical Notes 07-08-2020 to 05-27-2023 Neda Makrs RN - 05/27/2023 4:01 PM Dae Marks [...] No questions. Iv removed and tolerated well. [facility] 05-27-2023 Emergency department Note Discharge instructions were provided to the patient and mother. Aware to follow up as needed. Soft/liquid diet cor 24 hours explained. No questions. Iv removed and tolerated well. Attending note: I have personally performed a [id number] and diagnostic assessment. I have discussed the [...] Portions of this chart were created using [employer] electronic dictation. Please excuse any typographical or grammatical errors contained herein. Liban Otero MD 05/27/23 1544 Liban Otero MD 05/27/23 1547 Called intio the patients room. Patient had large 1 inch piece of hotdog in the emesis bucket. Patient is smiling and stating I did it, I feel so much better . Staff Developer and were made aware and the loan teller is now at bedside. No distress. Vss. stated to wait 10 minutes and take him in oral challenge. Xray at bedside. Staff Developer at bedside. Patient and mother stating they were [facility] and he was eating a hot dog. [...] with mother at bedside. Emergency Department Report [facility] Service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 Patient not able to contribute to [employer] or ROS. Information obtained from mother and [...] tablet 1 tablet 1 tablet Oral Q12H [facility] Idalia Sims MD 1 tablet [...] mg 40 mg Subcutaneous BID Monroe Duong [facility]arm[facility] famotidine (PEPCID) tablet 20 mg [...] Sex: Male Patient Information Primary Caregiver: Other (Comment)([facility] - [phone]) Initial assessment completed with patient's mother, Edison. Patient was present during assessment. Patient's mother Edison reports that she is patient's guardian. This social work msw requested that Edison bring in a copy of guardianship paperwork for patient's chart. Edison reports that patient resides at [facility], which is a care center for [facility]. Patient does need 24 hour supervision due to flight risk. PING Hendricks is aware and reports that a break away alarm is placed on patient. This social work msw contacted Pavithra at [facility]. Pavithra reports that patient can return at discharge. Pavithra informed that [facility] plans to transport patient when patient is ready for discharge. Pavithra reports that patient was on 2 liters of oxygen at night while at [facility]. Pavithra requested discharge paperwork when patient is discharged from the hospital. [facility] [phone] FAX [phone]. Discharge Planning Living Arrangements: Facility Support Systems: Parent, manager client service/social work msw, Other (Comment)(Mother [facility] reports that she is guardian.) Assistance Needed: stand by Type of Residence: intermediate Care Facility Name: ([facility].) Prior to Admission Home Care Services: No Patient expects to be discharged to:: [facility]. Mother [facility] to transport. Does the patient need discharge transport arranged?: No Current Home Equipment: None, Oxygen Anticipated HME: Undetermined Anticipated Discharge Plan Anticipated HME: Undetermined [facility] Disposition D/C Disposition: Another Health Care [facility] Not Defined[facility] Agency/Destination: ([facility]) Transportation Type: Auto(Mother, [facility] to transport [phone]) Reason for Choice: Currently with agency Speech [...] Explain Environmental Factors: supportive mother, lives in [facility] in [facility] Personal Factors: Awareness of own capacity and performance Explain Personal Factors: premorbid cognitive deficits Skilled Therapy Needs: Anticipate Resolution of Current Assessment Limitations Including: (acute pulmonary deficit) Are Skilled Therapy Services Needed After Discharge: Yes Intensity of Skilled Therapy: (to be determined per MBS) Anticipated Duration of Skilled Therapy: (pending MBS) MARKING MACHINE OPERATOR Caregiver Readiness Working toward discharge home: Yes MARKING MACHINE OPERATOR Caregiver Training: Ongoing - Follow up [...] Assessment: Pertinent clinical information: Downs Syndrome from [facility] Past Medical History: Diagnosis Date ADHD [...] Estimated Needs: 1800-2000cal Method for Estimating Needs: [id number],adjbw Total Protein Estimated Needs: 79gms Method for [...] and instructions Outcome: Met Possible discharge to [facility] tomorrow. Problem: Falls, Risk of Goal: Absence [...] Patient with bathroom needs per [facility]. Will follow up as appropriate. Associated Problem(s): [...] discharge order. Care management consulted. [facility] [place]. Problem: Pain Goal: Manage acute pain Outcome: [...] Active Thiago Chandler MD Attending Provider Active Pencil Inspector Relationship Specialty Start Date End Date Iftikhar Kemp DO [address] [place] [address] PCP - General Endocrinology/Metabolism 02/23/19 Team Status: Inactive Member Role Status Dates Iftikhar Kemp DO Primary Care Provider Active Start: May 03, 2023 End: May 03, 2023 Martha Richmond APRN ACNP-BC Attending Provider Active Start: May 03, 2023 End: May 03, 2023 DME Active Start: May [id number] End: May 03, 2023 Pencil Inspector Relationship Specialty Start Date End Date Iftikhar Kemp DO [address] [place] [address] PCP - General Family Medicine 05/27/23 Team [...] section and content) DATE CREATED AUTHOR 05/28/2021 [facility] DATE CREATED AUTHOR AUTHOR'S ORGANIZ ATION 05/28/2021 [facility] DATE CREATED AUTHOR AUTHOR'S ORGANIZ ATION 06/05/2021 [facility] DATE CREATED AUTHOR AUTHOR'S ORGANIZ ATION 09/28/2021 [facility] DATE CREATED AUTHOR AUTHOR'S ORGANIZ ATION 05/23/2022 [facility] DATE CREATED AUTHOR AUTHOR'S ORGANIZ ATION 06/01/2023 [facility] DATE CREATED AUTHOR AUTHOR'S ORGANIZ ATION 07/14/2023 [facility] DATE CREATED AUTHOR AUTHOR'S ORGANIZ ATION 09/24/2023 [facility] Goals (unrecognized section and content) [...] BASED ON THE PRIMARY CLINICAL RECORDS. [employer] [facility] [facility]. provides no warranty or guarantee of the accuracy or completeness of information in this document.
--- NOTE | 2023-10-21 14:53 | P.HP_ITS ---
HPI H&P: HPI History of Present Illness Chief complaint: COVID + SOB Pneumonia Asthma Excerbation Narrative: 33-year-old male with history of Down's syndrome presented to ER via EMS with shortness of breath, cough, hypoxia with pulse ox as low as 89%. Patient tested positive for COVID yesterday and plan was to treat him as an outpatient but his symptoms continue to progressively worse where he could not catch his breath so he was brought into ED for further evaluation. According to EMS, he was tachypneic with increased work of breathing and required oxygen supplementation. While in ED, patient had febrile episode and was still quite tachypneic and tachycardic. Patient meets sepsis criteria and was admitted for sepsis secondary to COVID-pneumonia/suspected superimposed bacterial pneumonia lactic acidosis, acute respiratory failure with hypoxia and asthma exacerbation. Pat ient started on IV fluids, IV Rocephin and azithromycin along with systemic steroids and Ventolin every 4 hours. Patient was seen when he arrived to the floor and was reporting that he feels weak and tired. He is comfortable now and has no evidence of respiratory distress but reports feeling short of breath at rest. Opioid HPI Opioid Management Most Recent Pain and Opioid Data: Last MAR Pain Assessment 10/21/23 11:59 Last ORT Total Score 0 10/21/23 14:56 Last ORT Risk Category Low Risk 10/21/23 14:56 Review of Systems ROS Narrative Limited review of system possible because of patient's history of intellectual disability and difficult to comprehend speech [facility] Medical History (Updated 10/21/23 @ 15:03 by Shaikh Emir MD) NARINDER (obstructive sleep apnea) ?G47.33 - Obstructive sleep apnea (adult) (pediatric) (ICD-10) Down syndrome ?Q90.9 - Down syndrome, unspecified (ICD-10) Pulmonary hypertension ?I27.20 - Pulmonary hypertension, unspecified (ICD-10) Pickwickian syndrome ?E66.2 - Morbid (severe) obesity with alveolar hypoventilation (ICD-10) Chronic constipation ?K59.09 - Other constipation (ICD-10) Eczema ?L30.9 - Dermatitis, unspecified (ICD-10) Sleep apnea ?G47.30 - Sleep apnea, unspecified (ICD-10) Dyspepsia ?R10.13 - Epigastric pain (ICD-10) Obsessive compulsive disorder ?F42.9 - Obsessive-compulsive disorder, unspecified (ICD-10) Bipolar 1 disorder ?F31.9 - Bipolar disorder, unspecified (ICD-10) Hypothyroid ?E03.9 - Hypothyroidism, unspecified (ICD-10) 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, unspecified (ICD-10) ?F69 - Unspecified disorder of adult personality and behavior (ICD-10) Aspiration into airway ?T17.908A - Unspecified foreign body in respiratory tract, part unspecified causing other injury, initial encounter (ICD-10) Surgical History H/O heart surgery ?Z98.890 - Other specified postprocedural states (ICD-10) Family History Father Family history of cancer Social History (Updated 10/21/23 @ 15:09 by Shaikh Emir MD) Within the past year, how often did you have a drink containing alcohol: never Score interpretation: A score less than 4 is consistent with normal alcohol consumption. Smoking status: Never smoker Non-prescribed substance use: denies use Gender Identity: male Meds Home Medications and Allergies Home Medications ?Medication ?Instructions ?Recorded ?Confirmed ?Type acetaminophen 325 mg capsule 325 mg PO Q4H PRN 04/08/23 10/21/23 History albuterol sulfate 2.5 mg/3 mL 2.5 mg continuous nebulization Q6H 04/08/23 10/21/23 History (0.083 %) solution for nebulization PRN shortness of breath or wheezing carbamazepine 200 mg tablet 200 mg PO 0800,199904/08/23 10/21/23 History chlorpromazine 10 mg tablet 10 mg PO 0804/08/23 10/21/23 History chlorpromazine 25 mg tablet 25 mg PO 159904/08/23 10/21/23 History chlorpromazine 50 mg tablet 50 mg PO 199904/08/23 10/21/23 History clonidine HCl 0.2 mg tablet 0.2 mg PO .0800,1200, 199904/08/23 10/21/23 History divalproex 250 mg tablet,delayed 500 mg PO 0800 04/08/23 10/21/23 History release divalproex 500 mg tablet,delayed 500 mg PO 2000 04/08/23 10/21/23 History release famotidine 20 mg tablet 20 mg PO 1200 04/08/23 10/21/23 History furosemide 20 mg tablet 20 mg PO BID 04/08/23 10/21/23 History gabapentin 100 mg capsule 100 mg PO TID 04/08/23 10/21/23 History levothyroxine 150 mcg tablet 150 mcg PO DAILY 04/08/23 10/21/23 History lithium carbonate 300 mg capsule 300 mg PO BEDTIME 04/08/23 10/21/23 History lorazepam 2 mg tablet 2 mg PO BEDTIME 04/08/23 10/21/23 History montelukast 10 mg tablet 10 mg PO .once daily 04/08/23 10/21/23 History risperidone 1 mg tablet 1 mg PO TID 04/08/23 10/21/23 History sennosides 8.6 mg tablet (senna) 8.6 mg PO BID 04/08/23 10/21/23 History vilazodone 20 mg tablet 20 mg PO .morning 04/08/23 10/21/23 History vitamin B complex 1 cap PO .qd 04/08/23 10/21/23 History guaifenesin 400 mg tablet (Chest 400 mg PO BID PRN Congestion #0 04/11/23 10/21/23 Rx Congestion Relief) tabs Allergies Allergy/AdvReac Type Severity Reaction Status Date / Time naproxen AdvReac Verified 04/08/23 14:43 Exam Constitutional Vital Signs, click to edit/add: Last Vital Signs Temp 99.9 F 10/21/23 13:16 Pulse 101 H 10/21/23 13:00 Resp 19 10/21/23 13:00 BP 99/70 10/21/23 13:09 Pulse Ox 94 L 10/21/23 13:00 O2 Del Method Nasal Cannula 10/21/23 12:49 O2 Flow Rate 3 10/21/23 12:49 Documenting provider has reviewed patient's vital signs: yes Common normals: no apparent distress and oriented x3 General appearance: lethargic and ill appearing HENMT Common normals: normocephalic and head/scalp atraumatic Respiratory Common normals: no use of accessory muscles Auscultation: rhonchi throughout, wheezes throughout and diminished lung sounds Other: conversational dyspnea noted. GI Common normals: Normal to inspection, nondistended, normoactive bowel sounds present, soft to palpation and non-tender Extremity Common normals: normal to inspection and full ROM Neuro Common normals: oriented x3, moves all extremities, no focal motor deficits and no sensory deficits noted Psych Common normals: cooperative, denies homicidal ideation and denies suicidal ideation Results Labs Labs: Short CBC 10/21/23 Range/Units 13:05 WBC 16.0 H (4.0-11.0) 10^3/uL Hgb 12.7 L (14.0-18.0) g/dL Hct 38.8 L (42.0-54.0) % Plt Count 216 (150-450) 10^3/uL BMP 10/21/23 11:23 Sodium 142 Potassium 3.6 Chloride 102 Carbon Dioxide 36.6 H BUN 18.0 Creatinine 1.88 H Glucose 113 H Calcium 9.2 Liver Function 10/21/23 Range/Units 11:23 Total Bilirubin 0.4 (0.2-1.0) mg/dL AST 14 L (15-37) U/L ALT 19 (16-63) U/L Alkaline Phosphatase 76 (46-116) U/L Albumin 2.5 L (3.4-5.0) g/dL Assessment and Plan Assessment and Plan (1) Sepsis: Assessment and Plan: HR >100, RR> 20, temp 101, WBC> 16K Patient presented with increased work of breathing, shortness of breath, hypoxia and currently on 2 L O2 via NC. He is better hemodynamically now after initial resuscitation with IVF, IV abx. F/u blood and sputum cx. Qualifiers: Sepsis type: sepsis due to unspecified organism Sepsis acute organ dysfunction status: without acute organ dysfunction Qualified Code(s): A41.9 - Sepsis, unspecified organism (2) Asthma exacerbation: Assessment and Plan: due to COVID/PNA. On systemic steroids, ventolin. Wean off O2 as tolerated. Qualifiers: Asthma severity: unspecified severity Asthma persistence: intermittent Qualified Code(s): J45.21 - Mild intermittent asthma with (acute) exacerbation (3) Acute respiratory failure with hypoxia: Assessment and Plan: Pulse Ox as low as 89% while on his way to ED, reported by EMS. Currently on 2 L O2 via NC, down from 3 L. (4) COVID-19: Assessment and Plan: Diagnosed yesterday. Presented with increased work of breathing/SOB/hypoxia. Will treat with IV solumedrol, albuterol. Monitor closely. Wean off O2 as tole rated. (5) Pneumonia: Assessment and Plan: Treated for suspected/superimposed bacterial PNA. on Rocephin/azithromycin. Qualifiers: Pneumonia type: due to unspecified organism Laterality: unspecified laterality Lung location: unspecified part of lung Qualified Code(s): J18.9 - Pneumonia, unspecified organism (6) Lactic acidosis: Assessment and Plan: Resolved with IV hydration (7) Obsessive compulsive disorder: Assessment and Plan: Stable mood. Has intellectual disability from Down syndrome. Poor insight/limited speech possible. C/w home medications. Qualifiers: Obsessive-compulsive disorder type: mixed obsessional thoughts and acts Qualified Code(s): F42.2 - Mixed obsessional thoughts and acts (8) Bipolar 1 disorder: Assessment and Plan: Calm, comfortable. C/w home medications (9) Hypothyroid: Assessment and Plan: C/w levothyroxine. 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 Home medications continued (11) NARINDER (obstructive sleep apnea): Assessment and Plan: C/w CPAP at night or when asleep during daytime.
--- OUTSIDE RECORDS SUMMARY | 2023-10-21 15:01 | XMS_ITS | CCD ---
Author Organization [facility] Care Team Providers Care Egg Buyer Name Role Phone Unavailable Unavailable Unavailable Kemp, Iftikhar A Primary Care Provider Unavaila ble Kemp, Iftikhar A Primary Care Provider [phone] Iftikhar Kemp DO Primary Care Provider [phone] FRANCK CARBALLO Attending Unavailab le KEMP, IFTIKHAR A Primary Care Unavailable KEMP, IFTIKHAR A Primary Care Unavailable DEENAZULAY Attending U navailable KEMP, IFTIKHAR Otto Attending Unavailable KEMPIFTIKHAR A Referring Unavailable KEMP, IFTIKHAR A Primary Care Unavailable DEENAZULAY Referring U navailable KEMP, IFTIKHAR A Primary Care Unavailable LORENZO STEIN Admitting Unavailab DOMO Silva Attending Unavailable LETTY DAVENPOTR Consulting Unavail able FRANCK CARBALLO Admitting Unavailab le CARBALLOFRANCK DONATO Attending Unavailab le KEMP, IFTIKHAR A Primary Care Unavailable Unavailable Primary Care Provider Unavailabl e Thiago Chandler Unavailable DO Iftikhar Kemp A Primary Care Provider MD Thiago Chandler Attending Provider [phone] Unavailable Primary Care Provider Unavailabl e PROVIDER, UNKNOWN Admitting Unavailable PROVIDER, UNKNOWN Attending Unavailable PROVIDER, UNKNOWN Admitting Unavailable PROVIDER, UNKNOWN Attending Unavailable Kemp, DO Iftikhar A Primary Care Provider Martha Richmond Unavailable KempDO Buitrago A Primary Care Provider [phone] MD Thiago Chandler Attending Provider [phone] KempDO Iftikhar patrikc A Primary Care Provider MD Thiago Chandler Attending Provider [phone] DAVID, DR IFTIKHAR Otto Admitting Unavailable KEMP, [...] Care Provider MD Thiago Chandler Attending Provider [phone] Iftikhar Kemp DO Primary Care Provider IFTIKHAR KEMP Primary Care Unavailable LIBAN OTERO Attending Unavailable KEMP, IFTIKHAR Admitting Unavailable KEMP, IFTIKHAR Attending Unavailable KEMP, IFTIKHAR Referring Unavailable KEMP, IFTIKHAR Admitting Unavailable KEMP, IFTIKHAR Attending Unavailable KEMP, IFTIKHAR Admitting Unavailable KEMP, IFTIKHAR Attending Unavailable MD Fahad Echavarria Attending Provider DO Iftikhar Kemp Primary Care Provider Iftikhar Kemp Primary Care Unavailable OleFahad sandhu Attending Unavailable Olexa, Fahad Admitting Unavailable Kemp, Iftikhar A Primary Care Unavailable Thiago Chandler Attending Unavailable Thiago Chandler Admitting Unavailable Allergies Allergy Classification Reported Allergen(s) Allergy Type Date of Onset Reaction(s) Facility NSAIDs (1 source) Naproxen Drug Allergy 8 [facility] (20 sources) Naproxen; Translations: [NAPROXEN] Drug Allergy 8 [facility] Work Phone: (8 sources) Seasonal allergy Propensity to adverse reactions 3 Unknown, Unknown Reaction [facility] (1 source) Naproxen Drug Allergy [facility] (4 sources) Non-steroidal anti-inflammato ry agent; Translations: [NSAIDs] Drug allergy [facility] (4 sources) Salicylic Acid; Translations: [salicylates] Drug Allergy [facility] (1 source) Naproxen Drug Allergy 0 [facility] Repository Medications Current Medications Medication Drug [...] Active 0 .Route April 25, 2023 12:00am Nivela Start: 04-25-2023 Cpap (Continuo us Positive Airway Pressure) Active 0 .ROUTE April 25, 2023 12:00am Nivela CPAP Machine (4 sources) CPAP Machine aut [...] 2019 10:10am take 1 capsule by mo [facility] every twenty-four hours Gabapentin [...] take 1 capsule by mouth once daily [place] Carbonate Active 300 MG PO Daily April 25, 2023 12:00am [employer] capsule Orally Once a day; Note: Source Status: Taking; Provider: Ramesh Das ( ) Start: 02-23-2019 End: 03-01-2019 take 300 mg by mouth once daily 300 mg, Oral, Nightly, First dose on 02/23/19 at 2230 Start: 12-31-2018 End: 02-22-2019 take 300 mg by mouth once daily at bedtime [place] Carbonate Discontinued 300 MG PO Daily at [...] .Route April 25, 2023 12:00am 3 liters [facility] [employer] Start: 04-25-2023 Oxygen Active 0 .ROUTE April 25, 2023 12:00am 3 liters [facility] [employer] Oxygen 3 liters (4 sources) Oxygen 3 [...] Status: Ordered take 4 tablets by mo [facility] at bedtime divalproex 250 MG Tab [...] 12-31-2018 End: 02-22-2019 Biscolax Discontinued 10 MG NJ Daily December 31, 2018 4:21pm February 22, 2019 10:10am Start: 12-31-2018 End: 02-22-2019 Biscolax Discontinued 10 MG [place] Daily December 31, 2018 12:00am February 22, 2019 9:10am Start: 12-31-2018 End: 02-22-2019 Biscolax Discontinued 10 MG [place] Daily December 31, 2018 1:00am February 22, [...] times daily. Active take 1 capsule by [facility] every twelve hours carBAMazepine ER 200 [...] Ordered docusate sodium 50 mg / sennosides, senior care 8.6 mg oral tablet (1 source) Start: [...] MIXTURE given to patient. polyethylene glycol 3350 14575 mg powder for oral solution (4 sources) [...] 2 Episodic Other aftercare (4 sources) Other shelter (current) drug therapy; Translations: [OTH CARE HOME CURRENT DRUG THERAPY] Onset: 3 Episodic Other [...] RT 2Von 09-21-2023 XR wrist RT 2V [facility] [address] [place] [address] XRay Report Signed Patient: Fahad Bernabe MR#: [id number] : 1990 Acct:[id number] Age/Sex: 33 / M ADM Date: 09/21/23 Loc: [facility] Room: Type: [facility] Attending Dr: Fahad Echavarria MD Copies to: [...] Kristal Reyes M.D.09/21/2023 3:45 PM Dictation Location: [place] [address] Transcribed By: [facility] 09/21/23 1545 Dictated By: Kristal Reyes MD 09/21/23 1542 Signed By: 09/21/23 1545 Normal [facility] Physician Orderon 07-13-2023 Physician Order [id number] 364#1.00TIFF [facility] Consent for Treatmenton 06-14 Consent for Treatment [id number] 8#1.00TIFF [facility] Consent for Treatment [id number] 1A#1.00TIFF [facility] Physician Orderon 07-04-2023 Physician Order [id number] 6#1.00TIFF Normal [facility] XR Adult Swallowing Function w/ Videoon [...] mGy = 5.70 DAP = 134.69 Normal [facility] Physician Orderon 06-06-2023 Physician Order [id number] DA#1.00TIFF Normal [facility] CBCon 05-27-2023 ABSOLUTE BAS 0.1 10*3/uL Normal 0.0-0.2 [facility] Comment on above: Result Comment: Test ing performed at [place] [address] Performed By: #### A CBC, CHEM7F #### [place] [address] ABSOLUTE EOS 0.1 10*3/uL Normal 0.0-0.7 [facility] Comment on above: Performed By: #### A CBC, CHEM7F #### Testing performed at [address] [address] ABSOLUTE NEUTROPHIL COUNT 4.0 10*3/uL Normal 1.4-6.5 [facility] Comment on above: Performed By: #### A CBC, CHEM7F #### Testing performed at [place] [id number] Basophils/100 WBC (Bld) 1.0 % Normal 0.0-2.0 [facility] Comment on above: Performed By: #### A CBC, CHEM7F #### Testing performed at [place] [id number] DTYPE AUTO DIFF Normal [facility] Comment on above: Performed By: #### A CBC, CHEM7F #### Testing performed at [place] [address] Eosinophils/100 WBC (Bld) 0.8 % Normal 0.0-11.0 [facility] Comment on above: Performed By: #### A CBC, CHEM7F #### Testing performed at [address] [address] Lymphocytes (Bld) [#/Vol] 2.0 10*3/uL Normal 1.2-3.4 [facility] Comment on above: Performed By: #### A CBC, CHEM7F #### Testing performed at [address] [address] Lymphocytes/100 WBC (Bld) 29.5 % Normal 20.0-55.0 [facility] Comment on above: Performed By: #### A CBC, CHEM7F #### Testing performed at [place] [address] Monocytes (Bld) [#/Vol] 0.5 10*3/uL Normal 0.0-0.7 [facility] Comment on above: Performed By: #### A CBC, CHEM7F #### Testing performed at [address] [address] Monocytes/100 WBC (Bld) 8.2 % Normal 0.0-10.0 [facility] Comment on above: Performed By: #### A CBC, CHEM7F #### Testing performed at [address] [address] Neutrophils/100 WBC (Bld) 60.5 % Normal 37.0-75.0 [facility] Comment on above: Performed By: #### A CBC, CHEM7F #### Testing performed at [address] [address] Erythrocyte distribution width (RBC) [Ratio] 14.6 % High 11.5-14.5 [facility] Comment on above: Performed By: #### A CBC, CHEM7F #### Testing performed at [address] [address] Hematocrit (Bld) [Volume fraction] 40.2 % Low 42.0-52.0 [facility] Comment on above: Performed By: #### A CBC, CHEM7F #### Testing performed at [address] [address] Hemoglobin (Bld) [Mass/Vol] 13.1 g/dL Low 14.0-18.0 [facility] Comment on above: Performed By: #### A CBC, CHEM7F #### Testing performed at [address] [address] MCH (RBC) [Entitic mass] 33.5 pg Normal 26.0-35.0 [facility] Comment on above: Performed By: #### A CBC, CHEM7F #### Testing performed at [address] [address] MCHC (RBC) [Mass/Vol] 32.7 g/dL Normal 27.0-37.0 [facility] Comment on above: Performed By: #### A CBC, CHEM7F #### Testing performed at [address] [address] MCV (RBC) [Entitic vol] 102.5 fL High 80.0-100.0 A [facility] Comment on above: Performed By: #### A CBC, CHEM7F #### Testing performed at [address] [address] Platelet mean volume (Bld) [Entitic vol] 7.0 fL Low 7.4-11.0 [facility] Comment on above: Performed By: #### A CBC, CHEM7F #### Testing performed at [address] [address] Platelets (Bld) [#/Vol] 280 10*3/uL Normal 130-400 [facility] Comment on above: Performed By: #### A CBC, CHEM7F #### Testing performed at [place] [id number] RBC (Bld) [#/Vol] 3.92 10*6/uL Low 4.0-6.1 [facility] Comment on above: Performed By: #### A CBC, CHEM7F #### Testing performed at [place] [address] WBC (Bld) [#/Vol] 6.7 10*3/uL Normal 3.6-11.0 [facility] Comment on above: Performed By: #### A CBC, CHEM7F #### Testing performed at [address] [address] CBC, EDIF, PLATELETon 2023 ABSOLUTE BASOPHIL COUNT 0.1 10*3/uL 0.0 - 0.2 10*3/uL [facility] Comment on above: Testing performed at [place] [id number] Basophils/100 WBC (Bld) 1.0 % 0.0 - 2.0 % [facility] Differential cell count method Nom (Bld) AUTO DIFF % [facility] Eosinophils (Bld) [#/Vol] 0.1 10*3/uL 0.0 - 0.7 10*3/uL [facility] Eosinophils/100 WBC (Bld) 0.8 % 0.0 - 11.0 % [facility] Erythrocyte distribution width (RBC) [Ratio] 14.6 % High 11.5 - 14.5 % [facility] Hematocrit (Bld) [Volume fraction] 40.2 % Low 42.0 - 52.0 % [facility] Hemoglobin (Bld) [Mass/Vol] 13.1 g/dL Low [facility] Interpretation and review of laboratory results Abnormal [facility] Lymphocytes (Bld) [#/Vol] 2.0 10*3/uL 1.2 - 3.4 10*3/uL [facility] Lymphocytes/100 WBC (Bld) 29.5 % 20.0 - 55.0 % [facility] MCH (RBC) [Entitic mass] 33.5 pg 26.0 - 35.[address] [facility] MCHC (RBC) [Mass/Vol] 32.7 g/dL [facility] MCV (RBC) [Entitic vol] 102.5 fL High A [facility] Monocytes (Bld) [#/Vol] 0.5 10*3/uL 0.0 - 0.7 10*3/uL [facility] Monocytes/100 WBC (Bld) 8.2 % 0.0 - 10.0 % [facility] Neutrophils (Bld) [#/Vol] 4.0 10*3/uL 1.4 - 6.5 10*3/uL [facility] Neutrophils/100 WBC (Bld) 60.5 % 37.0 - 75.0 % [facility] Platelet mean volume (Bld) [Entitic vol] 7.0 fL Low [facility] Platelets (Bld) [#/Vol] 280 10*3/uL 130 - 400 10*3/uL [facility] RBC (Bld) [#/Vol] 3.92 10*6/uL Low 4.0 - 6.1 10*6/uL [facility] WBC (Bld) [#/Vol] 6.7 10*3/uL 3.6 - 11.0 10*3/uL [facility] CHEM 7 FASTINGon 05-27-2023 Chloride [Moles/Vol] 106 mmol/L Normal 98-107 [facility] Comment on above: Result Comment: Chayo garner note: Triglyceride levels of 600mg/dL or higher may positively bias chloride results by approximately 2.1 mmol Performed By: #### A CBC, CHEM7F #### [place] [address] CO2 [Moles/Vol] 28 mmol/L Normal 22-30 [facility] Comment on above: Performed By: #### A CBC, CHEM7F #### [place] [address] Creatinine [Mass/Vol] 1.30 mg/dL High 0.7-1.2 [facility] Comment on above: Performed By: #### A CBC, CHEM7F #### Testing performed at [place] [address] EST. GFR, 83 ml/min/1.73sq.m [facility] Comment on above: Performed By: #### A CBC, CHEM7F #### [place] [address] EST. GFR,Non 69 ml/min/1.73sq.m Normal [facility] Comment on above: Performed By: #### A CBC, CHEM7F #### [place] [address] GFR Information Average GFR for 30-39 years old = 107. Normal [facility] Comment on above: Result Comment: Fashion Buyer maye Kidney disease, GFR = <60. Kidney failure, GFR = <15. The GFR estimate is not adjusted for extreme body surface area or acute process, nor has it been validated for women or ethnic groups other than and . Testing performed at [place] [address] Performed By: #### A CBC, CHEM7F #### [place] [address] Glucose [Mass/Vol] 110 mg/dL High 70-100 [facility] Comment on above: Result Comment: NORMAL <100 mg/dL PREDIABETES 101-126 mg/dL DIABETES 126 mg/dL or higher Performed By: #### A CBC, CHEM7F #### [place] [address] Potassium [Moles/Vol] 3.8 mmol/L Normal 3.5-5.1 [facility] Comment on above: Performed By: #### A CBC, CHEM7F #### Testing performed at [place] [address] Sodium [Moles/Vol] 144 mmol/L Normal 137-145 [facility] Comment on above: Performed By: #### A CBC, CHEM7F #### Testing performed at [place] [address] Urea nitrogen [Mass/Vol] 19 mg/dL Normal 7-20 [facility] Comment on above: Performed By: #### A CBC, CHEM7F #### Testing performed at [place] [address] CHEM 7 (LYTES,BUN,CREA,GLUC) on 05-27-2023 Chloride [Moles/Vol] 106 mmol/L [facility] [employer] [facility] Comment on above: Please note: Triglyc eride levels of 600mg/dL or higher may positively bias chloride results by approximately 2.1 mmol CO2 [Moles/Vol] 28 mmol/L [facility] Creatinine [Mass/Vol] 1.30 mg/dL High [facility] GFR COMMENT Average GFR for 30-39 years old = 107. [facility] Comment on above: Chronic Kidney disea se, GFR = <60. Kidney failure, GFR = <15. The GFR estimate is not adjusted for extreme body surface area or acute process, nor has it been validated for women or ethnic groups other than and . Testing performed at [place], [place] [address] GFR/1.73 sq M.predicted among blacks MDRD (S/P/Bld) [Vol rate/Area] 83 mL/min/{1.73_m2} ml/min/1.73sq. m [facility] GFR/1.73 sq M.predicted among non-blacks MDRD (S/P/Bld) [Vol rate/Area] 69 mL/min/{1.73_m2} ml/min/1.73sq. m [facility] d[facility] [employer] Glucose post fast [Mass/Vol] 110 mg/dL [facility] Comment on above: NORMAL <100 mg/dL PREDIABETES 101-126 mg/dL DIABETES 126 mg/dL or higher Interpretation and review of laboratory results Abnormal [facility] Potassium [Moles/Vol] 3.8 mmol/L [facility] Sodium [Moles/Vol] 144 mmol/L [facility] Urea nitrogen [Mass/Vol] 19 mg/dL [facility] Portable XR Chest Viewson IMPRESSION: Unremarkable [...] unremarkable. IMPRESSION IMPRESSION: Unremarkable chest. [facility] Radiology Study observation (narrative) [facility] Portable XR Chest ViewsOrder ed By: Terrell Márquez on 05-27-[address] [facility] Work Phone: XR CHEST 1 VIEW [...] contours appear unremarkable. IMPRESSION: Unremarkable chest. Normal [facility] Lithiumon 05-12-2023 [place] [Moles/Vol] 0.4 mmol/L Low 0.5-1.2 [facility] Comment on above: Result Comment: A co ncentration of 0.5-0.8 mmol/L is advised for long-term use; concentrations of up to 1.2 mmol/L may be necessary during acute treatment. Detection Limit = 0.1 <0.1 indicates None Detected Performed at: [facility] [address] [place], [place] [id number] PhD Shaka Oleary Performed By: #### 2 817991, 9914322, 93021554, 1395255, 3397142, 7648796, 6392169, 5495263, 5747005, 2101733 ####[facility] [address] [place] [address] T3 Freeon 05-12-2023 Free T3 [Mass/Vol] 2.5 pg/mL Invalid Interpretation Code 2.0-4.4 [facility] Comment on above: Result Comment: Perf ormed at: [facility] [address] [id number] PhD Shaka Oleary Performed By: #### 2 409875, 7769393, 15304931, 4368145, 5920790, 4606915, 2506948, 0905166, 8009969, 9548058 ####[facility] [address] [place] [address] CBC w/IndicesOrdered By: [employer] SYSTEM on 05-10-2023 Erythrocyte distribution width (RBC) [Ratio] 14.9 % High 10.9-14.2 [facility] Comment on above: Performed By: #### 2 571598, 6814002, 85353875, 0801142, 7916590, 1777179, 6730155, 5567314, 3501730, 2909132 #### [facility] [address] [place] [address] Hematocrit (Bld) [Volume fraction] 42.4 % Normal 37.7-49.0 [facility] Comment on above: Performed By: #### 2 567729, 6156757, 33400869, 6630929, 6137214, 7403326, 5343040, 1475325, 4016555, 7959634 #### [facility] [address] [place] [address] Hemoglobin (Bld) [Mass/Vol] 13.5 g/dL Normal 13.5-17.5 [facility] Comment on above: Performed By: #### 2 204510, 4753659, 18857339, 9104973, 6951069, 6539191, 6954556, 2010268, 8939678, 1015517 #### [facility] [address] [place] [address] MCH (RBC) [Entitic mass] 33.4 pg Normal 27.0-34.0 [facility] Comment on above: Performed By: #### 2 366756, 5451004, 28276151, 8345166, 1176244, 9778768, 9447209, 1449161, 6265833, 9563961 #### [facility] [address] [place] [address] MCHC (RBC) [Mass/Vol] 31.9 g/dL Normal 31.4-36.0 [facility] Comment on above: Performed By: #### 2 073495, 1839922, 92871777, 3132510, 6578207, 4787790, 1551216, 1215904, 0783640, 7342569 #### [facility] [address] [place] [address] MCV (RBC) [Entitic vol] 104.9 fL High 80.0-100.0 [facility] Comment on above: Performed By: #### 2 939744, 1248401, 07931301, 8672287, 4250761, 2355390, 1619064, 8125131, 5312612, 2108063 #### [facility] [address] [place] [address] Platelet mean volume (Bld) [Entitic vol] 7.7 fL Normal 6.4-10.8 [facility] Comment on above: Performed By: #### 2 963935, 4063378, 84088775, 3491216, 8631229, 6848295, 4554561, 0558620, 0553581, 9649178 #### [facility] [address] [place] [address] Platelets (Bld) [#/Vol] 359.0 E9/L Normal 150.0-500.0 [facility] Comment on above: Performed By: #### 2 684131, 1407268, 55839044, 8052107, 0305653, 7285747, 8483268, 7831067, 6587897, 6574996 #### [facility] [address] [place] [address] RBC (Bld) [#/Vol] 4.0 E12/L Low 4.3-5.9 [facility] Comment on above: Performed By: #### 2 516759, 5900137, 32207607, 4376740, 3509918, 0710406, 9848692, 2418352, 3615849, 1353133 #### [facility] [address] [place] [address] WBC corrected for nucl RBC Auto (Bld) [#/Vol] 4.6 E9/L Normal 4.0-11.0 [facility] Comment on above: Performed By: #### 2 077229, 5545189, 42982646, 5785578, 2285747, 0023581, 0691477, 9312867, 0392083, 2525341 #### [facility] [address] [place] [id number] CBC w/Indiceson 05-10-2023 RBC size Nom (Bld) NORMAL Invalid Interpretation Code [facility] Comment on above: Performed By: #### 2 045461, 5330991, 83971405, 5931170, 9741715, 6320250, 2182604, 3110020, 6685954, 5291397 #### [facility] [address] [place], [place] [address] CHEMISTRYOrdered By: SYSTEM SYSTEM on 05-10-2023 Albumin/Globulin [...] Comment on above: Performed By: #### 2 291934, 6120951, 38371371, 8609477, 3734773, 8337115, 3418496, 9287967, 3527369, 5817725 #### [facility] [address] [place] [address] Anion gap [Moles/Vol] 10 mmol/L Normal 6-16 Rem [facility] Comment on above: Performed By: #### 2 114066, 4229228, 79082573, 6430410, 4136516, 3702182, 9659514, 7346632, 4575427, 3851625 #### [facility] [address] [place] [address] Bilirubin [Mass/Vol] 0.2 mg/dL Normal 0.0-1.1 [facility] Comment on above: Performed By: #### 2 171108, 1570640, 23303645, 0566118, 6766600, 6192132, 5565566, 0535082, 8862180, 9085739 #### [facility] [address] [place] [address] Calcium [Mass/Vol] 9.6 mg/dL Normal 8.9-11.1 [facility] Comment on above: Performed By: #### 2 084497, 5111953, 69566382, 4210562, 6279439, 4677037, 5379884, 0745101, 1214630, 1826088 #### [facility] [address] [place] [address] Chloride [Moles/Vol] 108 mmol/L Normal 101-111 [facility] Comment on above: Performed By: #### 2 391935, 1411391, 92892692, 8426329, 2271992, 5773544, 1199530, 6100473, 8023226, 6464168 #### [facility] [address] [place] [address] CO2 [Moles/Vol] 30 mmol/L Normal 21-31 [facility] Comment on above: Performed By: #### 2 478717, 0466651, 48644393, 3760591, 6427713, 9629828, 5372653, 5810840, 4644882, 1430329 #### [facility] [address] [place] [address] Creatinine [Mass/Vol] 1.2 mg/dL Normal 0.5-1.3 Rem isol Chem Comment on above: Performed By: #### 2 190832, 9859082, 45643478, 2944539, 4211888, 1984002, 1964082, 9582239, 0600245, 3450890 #### [facility] [address] [place] [address] Globulin (S) [Mass/Vol] 3.9 g/dL Normal 1.4-4.0 R emisol Chem Comment on above: Performed By: #### 2 301749, 7709135, 18559643, 6441228, 7001546, 4951424, 1934223, 0147928, 7579465, 6336110 #### [facility] [address] [place] [address] Glucose [Mass/Vol] 84 mg/dL Normal 55-199 Rem[facility] Comment on above: Performed By: #### 2 835467, 3831301, 03729568, 5304951, 5456544, 1183708, 3064992, 4575393, 3218339, 6288631 #### [facility] [address] [place] [address] Potassium [Moles/Vol] 4.3 mmol/L Normal 3.5-5.3 Rem isol Chem Comment on above: Performed By: #### 2 167268, 0449109, 49889433, 6304618, 7318956, 4133847, 7051802, 9902756, 7114742, 0031283 #### [facility] [address] [place] [address] Protein [Mass/Vol] 7.6 g/dL Normal 6.0-7.8 [facility] Comment on above: Performed By: #### 2 072061, 9681736, 80406259, 5356684, 9699018, 9973612, 4818208, 7781413, 7274754, 4529757 #### [facility] [address] [place] [address] Sodium [Moles/Vol] 144 mmol/L Normal 135-145 [facility] Comment on above: Performed By: #### 2 203301, 8523446, 62890672, 1253301, 1744968, 6679909, 8829897, 5506432, 9017982, 7529395 #### [facility] [address] [place] [address] Urea nitrogen [Mass/Vol] 18 mg/dL Normal 5-21 [facility] Comment on above: Performed By: #### 2 [id number], 7902469, 26177790, 3693030, 0494914, 4578244, 2829251, 9572084, 7805539, 0739223 #### [facility] [address] [place] [address] CMPon 05-10-2023 Albumin/Globulin (S) [Mass conc ratio] 0.9 Low 1.1-2.2 [facility] Comment on above: Performed By: #### 2 [id number], 2439938, 92534135, 4194234, 6083258, 5775309, 4925703, 1005480, 0884082, 3872993 #### [facility] [address] [place] [address] ALP [Catalytic activity/Vol] 72 Int._Unit/L Normal 21-98 [facility] Comment on above: Performed By: #### 2 837481, 6779766, 69784112, 1692345, 6974837, 1306824, 9479471, 8619325, 3853296, 7864906 #### [facility] [address] [place] [address] ALT No additional P-5'-P [Catalytic activity/Vol] 9 Int._Unit/L Normal 6-46 [facility] Comment on above: Performed By: #### 2 370001, 2668268, 30849321, 5103045, 0397734, 1445713, 8616837, 7432155, 0357132, 2488339 #### [facility] [address] [id number] AST [Catalytic activity/Vol] 17 Int._Unit/L Normal 5-43 [facility] Comment on above: Performed By: #### 2 413184, 6958694, 64431390, 9644301, 4996670, 1663250, 5798633, 5077279, 3521614, 4445132 #### [facility] [address] [place], [place] [id number] Urea nitrogen/Creatinine [Mass ratio] 15 No Units Normal 10-20 [facility] Comment on above: Performed By: #### 2 811660, 1077297, 06699942, 8933766, 2150670, 6805601, 5318110, 1006214, 8151189, 7056892 #### [facility] [address] [id number] CarbamazepineOrdered By: SYS TEM SYSTEM on 05-10-2023 Carbamaz Lvl 7.3 microgram/mL Normal 4.0-12.0 [facility] Comment on above: Performed By: #### 2 026685, 9888854, 34269531, 2246426, 7332497, 3910504, 7473411, 1731788, 4787942, 8498744 #### [facility] [address] [id number] Free [id number] By: SYSTEM SY STEM on 05-10-2023 Free T4 [Mass/Vol] 0.61 ng/dL Normal 0.58-1.64 [facility] Comment on above: Performed By: #### 2 725817, 3277797, 00726375, 8016129, 6547516, 5763651, 3820945, 3213165, 6104338, 3440177 #### [facility] [address] [id number] HEMATOLOGYOrdered By: SYSTEM SYSTEM on 05-10-2023 RBC size Nom (Bld) NORMAL *NA* (05/10/23 7:00 AM) Invalid Interpretation Code Rem[facility] Heme Ironon 05-10-2023 Iron [Mass/Vol] 70 microgram/dL Normal 35-153 [facility] Comment on above: Performed By: #### 2 900539, 2079948, 10312227, 9971194, 6579593, 3412701, 2023001, 6081795, 2993057, 4391425 #### [facility] [address] [id number] Physician Orderon 05-10-2023 Physician Order [id number] 31#[id number] Normal [facility] TSHOrdered By: SYSTEM SYSTEM on 05-10-2023 TSH Qn 3.75 m[IU]/L Normal 0.34-5.60 [facility] Comment on above: Performed By: #### 2 017298, 9390735, 22698465, 0610321, 5418092, 1503139, 9837195, 7151544, 9333912, 6626224 #### [facility] [address] [id number] Vit [id number] By: SYSTEM Mango Reservations STEM on 05-10-2023 Cobalamin (Vitamin B12) [Mass/Vol] 479 pg/mL Normal 50-1500 [facility] Comment on above: Performed By: #### 2 968702, 0406999, 17970974, 7684021, 1514475, 8901917, 4490068, 2759294, 1095337, 8482273 ####[facility] [address] [place] [address] eGFROrdered By: SYSTEM SYSTE [employer] on 05-10-2023 eGFR 83 mL/min/1.73 m2 Normal >=59 [facility] Comment on above: Order Comment: Order added by Discern Expert. Performed By: #### 2 162528, 7078024, 74077589, 1770374, 0752618, 4227026, 3977784, 4204143, 7094767, 1183849 #### [facility] [address] [place] [address] CARBAMAZEPINEon 05-18-2022 Carbamezapine 6.9 ug/mL Normal 4.0-12.0 [facility] Comment on above: Result Comment: In c onjunction with other antiepileptic drugs Therapeutic 4.0 - 8.0 Toxicity 9.0 - 12.0 . Carbamazepine alone Therapeutic 8.0 - 12.0 . Detection Limit = 2.0 <2.0 indicates None Detected Performed By: #### C ARBLC #### [facility] [address] [place] [address] Dr. Chase Pedro LITHIUMon 05-18-2022 [place] (Eskalith(R)), Serum 0.7 mmol/L Normal 0.5-1.2 [facility] Comment on above: Result Comment: A co ncentration of 0.5-0.8 mmol/L is advised for long-term use; concentrations of up to 1.2 mmol/L may be necessary during acute treatment. Detection Limit = 0.1 <0.1 indicates None Detected Performed By: #### L ITHIUM #### [facility] [address] [address] [address] Chase Pedro CBC AUTO DIFFon 05-17-2022 BASO # 0.1 103/ul Normal 0.0-0.1 [facility] Comment on above: Performed By: #### C BC #### [facility] [address] [address] [address] Chase Pedro Basophils/100 WBC (Bld) 1.2 % Normal 0.2-2.0 [facility] Comment on above: Performed By: #### C BC #### [facility] [address] [place] [address] Dr. Chase Pedro EO # 0.0 103/ul Normal 0.0-0.7 [facility] Comment on above: Performed By: #### C BC #### [facility] [address] [place] [address] Dr. Chase Pedro Eosinophils/100 WBC (Bld) 0.2 % Critically low 0.9-7.0 [facility] Comment on above: Performed By: #### C BC #### [facility] [address] [place] [address] Dr. Chase Pedro Erythrocyte distribution width (RBC) [Ratio] 12.8 % Normal 11.0-15.0 [facility] Comment on above: Performed By: #### C BC #### [facility] [address] [place] [address] Dr. Chase Pedro Hematocrit (Bld) [Volume fraction] 42.5 % Normal 42.0-54.0 [facility] Comment on above: Performed By: #### C BC #### [facility] [address] [place] [address] Dr. Chase Pedro Hemoglobin (Bld) [Mass/Vol] 13.8 g/dL Critically low 14.0-18.0 [facility] Comment on above: Performed By: #### C BC #### [facility] [address] [place] [address] Dr. Chase Pedro IG # 0.02 10e3/ul Normal 0.00-0.03 [facility] Comment on above: Performed By: #### C BC #### [facility] [address] [place] [address] Dr. Chase Pedro IG % 0.4 % Normal 0.0-0.5 [facility] Comment on above: Performed By: #### C BC #### [facility] [address] [place] [address] Dr. Chase Pedro LYMPH # 2.3 103/ul Normal 1.2-3.8 [facility] Comment on above: Performed By: #### C BC #### [facility] [address] [place] [address] Dr. Chase Pedro Lymphocytes/100 WBC (Bld) 45.8 % Normal 20.5-60.0 [facility] Comment on above: Performed By: #### C BC #### [facility] [address] [place] [address] Dr. Chase Pedro MANUAL DIFF REQ NO Normal [facility] Comment on above: Performed By: #### C BC #### [facility] [address] [place] [address] Dr. Chase Pedro MCH (RBC) [Entitic mass] 33.8 pg Normal 25.9-34.0 [facility] Comment on above: Performed By: #### C BC #### [facility] [address] [place] [address] Dr. Chase Pedro MCHC (RBC) [Mass/Vol] 32.5 g/dL Normal 29.9-35.2 [facility] Comment on above: Performed By: #### C BC #### [facility] [address] [place] [address] Dr. Chase Pedro MCV (RBC) [Entitic vol] 104.2 fL Critically high 80.0-94 .0 [facility] Comment on above: Performed By: #### C BC #### [facility] [address] [place] [address] Dr. Chase Pedro MONO # 0.3 103/ul Normal 0.3-0.8 [facility] Comment on above: Performed By: #### C BC #### [facility] [address] [place] [address] Dr. Chase Pedro Monocytes/100 WBC (Bld) 5.7 % Normal 1.7-12.0 [facility] Comment on above: Performed By: #### C BC #### [facility] [address] [place] [address] Dr. Chase Pedro NEUT # 2.3 103/ul Normal 1.4-6.5 [facility] Comment on above: Performed By: #### C BC #### [facility] [address] [address] [address] Chase Pedro Neutrophils/100 WBC (Bld) 46.7 % Normal 43.0-75.0 [facility] Comment on above: Performed By: #### C BC #### [facility] [address] [address] [address] Chase Pedro Platelet mean volume (Bld) [Entitic vol] 9.2 fL Critically low 9.5-13.5 [facility] Comment on above: Performed By: #### C BC #### [facility] [address] [address] [address] Chase Pedro PLT 288 103/ul Normal 150-450 [facility] Comment on above: Performed By: #### C BC #### [facility] [address] [place] [address] Dr. Chase Pedro RBC 4.08 106/ul Critically low 4.70-6.10 [facility] Comment on above: Performed By: #### C BC #### [facility] [address] [address] [address] Chase Pedro WBC 4.9 103/ul Normal 4.0-11.0 [facility] Comment on above: Performed By: #### C BC #### [facility] [address] [place] [address] Dr. Chase Pedro DEPAKENE/ VALPROIC ACIDon DEPAKENE 56.7 ug/ml Normal 50.0-100.0 [facility] Comment on above: Performed By: #### C MP, TSH, VALP #### [facility] [address] [address] [address] Chase Pedro PROF 14(COMP METB)on 023 Albumin [Mass/Vol] 3.5 g/dL Normal 3.4-5.0 [facility] Comment on above: Performed By: #### C MP, TSH, VALP #### [facility] [address] [place] [address] Dr. Chase Pedro Albumin/Globulin [Mass ratio] 0.8 {ratio} Normal [facility] Comment on above: Performed By: #### C MP, TSH, VALP #### [facility] [address] [place] [address] Dr. Chase Pedro ALP [Catalytic activity/Vol] 110 U/L Normal 46-116 [facility] Comment on above: Performed By: #### C MP, TSH, VALP #### [facility] [address] [place] [address] Dr. Chase Pedro ALT [Catalytic activity/Vol] 18 U/L Normal 16-63 [facility] Comment on above: Performed By: #### C MP, TSH, VALP #### [facility] [address] [place] [address] Dr. Chase Pedro Anion gap [Moles/Vol] 8.0 mmol/L Normal [facility] Comment on above: Performed By: #### C MP, TSH, VALP #### [facility] [address] [place] [address] Dr. Chase Pedro AST [Catalytic activity/Vol] 12 U/L Critically low 15-37 [facility] Comment on above: Performed By: #### C MP, TSH, VALP #### [facility] [address] [place] [address] Dr. Chase Pedro Bilirubin [Mass/Vol] 0.3 mg/dL Normal 0.2-1.0 [facility] Comment on above: Performed By: #### C MP, TSH, VALP #### [facility] [address] [place] [address] Dr. Chase Pedro Calcium [Mass/Vol] 9.3 mg/dL Normal 8.5-10.1 [facility] Comment on above: Performed By: #### C MP, TSH, VALP #### [facility] [address] [place] [address] Dr. Chase Pedro Chloride [Moles/Vol] 107 mmol/L Normal 98-107 [facility] Comment on above: Performed By: #### C MP, TSH, VALP #### [facility] [address] [address] [address] Chase Pedro CO2 [Moles/Vol] 36.9 mmol/L Critically high 21.0-32.0 [facility] Comment on above: Performed By: #### C MP, TSH, VALP #### [facility] [address] [place] [address] Dr. Chase Pedro Creatinine [Mass/Vol] 1.46 mg/dL Critically high 0.70-1.30 [facility] Comment on above: Performed By: #### C MP, TSH, VALP #### [facility] [address] [address] [address] Chase Pedro EGFR-AF TUNISIAN >60 Normal >=60 [facility] Comment on above: Performed By: #### C MP, TSH, VALP #### [facility] [address] [place] [address] Dr. Chase Pedro EGFR-NON AF TUNISIAN 57 mL/min/1.73m2 Critically low >=60 [facility] Comment on above: Performed By: #### C MP, TSH, VALP #### [facility] [address] [place] [address] Dr. Chase Pedro Globulin (S) [Mass/Vol] 4.4 g/dL Normal [facility] Comment on above: Performed By: #### C MP, TSH, VALP #### [facility] [address] [place] [address] Dr. Chase Pedro Glucose [Mass/Vol] 94 mg/dL Normal 74-106 [facility] Comment on above: Performed By: #### C MP, TSH, VALP #### [facility] [address] [place] [address] Dr. Chase Pedro Potassium [Moles/Vol] 3.9 mmol/L Normal 3.5-5.1 [facility] Comment on above: Performed By: #### C MP, TSH, VALP #### [facility] [address] [place] [address] Dr. Chase Pedro Protein [Mass/Vol] 7.9 g/dL Normal 6.4-8.2 [facility] Comment on above: Performed By: #### C MP, TSH, VALP #### [facility] [address] [address] [address] Chase Pedro Sodium [Moles/Vol] 148 mmol/L Critically high 136-145 [facility] Comment on above: Performed By: #### C MP, TSH, VALP #### [facility] [address] [place] [address] Dr. Chase Pedro Urea nitrogen [Mass/Vol] 17.0 mg/dL Normal 7.0-18.0 [facility] Comment on above: Performed By: #### C MP, TSH, VALP #### [facility] [address] [place] [address] Dr. Chase Pedro Urea nitrogen/Creatinine [Mass ratio] 11.6 mg/mg Normal [facility] Comment on above: Performed By: #### C MP, TSH, VALP #### [facility] [address] [place] [address] Dr. Chase Pedro TSHon 05-17-2022 TSH 0.725 uIU/mL Normal 0.358-3.740 [facility] Comment on above: Performed By: #### C MP, TSH, VALP #### [facility] [address] [place] [address] Dr. Chase Pedro Progress Noteson 09-22-2021 Drier Operator Authentication Interface Message Text ----- Wednesday, September 22, 2021 at 11:33:21 AM ----- ----- Provider: Shell Singh, Resident -- Clinic: [facility] ----- COMPOSITE CHRISTIANITY Patient is scheduled for [facility] on tooth #22-MDF, 23-MDF, 24-MDF, 25-MDF, 26-MDF and 27 surface MDF. Reviewed Medical History. Pt exhibited the following conditions: Mental Disorders Patient is ready for treatment. Topical Benzocaine gel applied at the injection site for 2 minutes. Administered 1 carpules of Lidocaine, 2% with Epinephrine 1:100,000,. Decay/existing confucianist removed, cavity prepared. Selectively etched enamel with 37% phosphoric acid, rinsed, and blot dried. OptiBond davidson applied and light-cured. Condensed packable composite shade in light cured increments using Mylar strip and wedge. Finished with finishing burs, checked occlusion, verified proximal contacts and confucianist was polished. Rinsed and suctioned intraorally, advised [...] ----- Provider: Emeterio Zapata DDS -- Clinic: [facility] ----- Normal The [employer] WOUND CULTUREon 07-18-2021 Antimicrobial Susceptibility Comment Normal [facility] Comment on above: Result Comment: S = Susceptible; I = Intermediate; R = Resistant P = Positive; N = Negative MICS are expressed in micrograms per mL Antibiotic RSLT#1 RSLT#2 RSLT#3 RSLT#4 Penicillin S Vancomycin S Performed By: #### C XWND #### [facility] [address] [place] [address] Dr. Chase Pedro Bacteria identified Aer cx Nom (Unsp spec) Final report Abnormal [facility] Comment on above: Performed By: #### C XWND #### [facility] [address] [place] [address] Dr. Chase Pedro Result 1 Enterococcus faecalis Abnormal [facility] Comment on above: Result Comment: For Enterococcus species, aminoglycosides (except for high-level resistance screening), cephalosporins, clindamycin, and trimethoprim-sulfamethoxazole are not effective clinically. (CLSI, [id number], 2016) Heavy growth Performed By: #### C XWND #### [facility] [address] [place] [address] Dr. Chase Pedro Progress Noteson 06-08-2021 Drier Operator Authentication Interface Message Text [facility], Pt [...] on 6 month recall. Examination completed by /PROFESSOR OF ENVIRONMENTAL SCIENCE [facility] [place]: mian ----- Signed on Tuesday, June 08, 2021 at 2:17:56 PM ----- ----- Provider: Emeterio Zapata DDS -- Clinic: [facility] ----- Normal The [employer] XR MODIFIED BARIUM SWALLOWon 05-06-2021 XR [...] MonMay 06, 2021 2:54:29 PM EDT Normal [facility] Comment on above: Order Comment: Injur y/Trauma [...] shotty mediastinal and hilar lymph nodes. The bilingual inside sales representative conglomeration of 2 lymph nodes [...] pneumomediastinum. Cardiomegaly, significant for the patient's age. [employer] Workstation ID: [id number] Dictated by: BERNADETTE ARANA on MonMay 05, 2021 2:07:05 PM EDT Transcribed by: NIKI QUESADA on MonMay 05, 2021 2:30:07 PM EDT Finalized by: BERNADETTE ARANA on MonMay 05, 2021 2:37:50 PM EDT [facility] Comment on above: Order Comment: Injur [...] on MonMay 04, 2021 8:43:37 PM EDT [facility] Comment on above: Order Comment: Injur [...] SARS-CoV-2/Flu/RSV plus RT-PCR Cepheid assay on the [employer] Xpress System. This test has not been approved for use in asymptomatic patients and its performance in this patient population has not been evaluated. Negative results do not rule out the presence of SARS-CoV-2/COVID-19 . Fact sheets for this EUA can be found at the following links: For Healthcare Providers: https://www.fda.gov /media/825176/downl oad For Patients: https://www.fda.gov /media/195874/downl oad [facility] Comment on above: Performed By: #### L [id number] #### [facility] [address] [id number] Liam Casas M.D. [id number] XR CHEST PA/APon 05-02-2021 XR CHEST PA/AP [...] left lung base. Findings consistent with pneumonia. [facility]/[employer] Workstation ID: [id number] Dictated by: FRANCK JEFFERS on [employer] May 02, 2021 1:44:03 PM EDT Transcribed by: CAMI CHAHAL on MonMay 02, 2021 1:47:37 PM EDT Finalized by: FRANCK JEFFERS on [employer] May 02, 2021 2:44:35 PM EDT [facility] Comment on above: Order Comment: Fully upright [...] refer to the speech pathologist's detailed report. [employer] Workstation ID: [id number] [facility] EXAMINATION: XR MODIFIED BARIUM SWALLOW HISTORY: [...] no radiographic evidence of tracheal aspiration/penetrat ion. [facility] Interface, Rad In [employer] - 07/08/2020 8:42 PM EDT EXAMINATION: XR [...] refer to the speech pathologist's detailed report. [employer] Workstation ID: [id number] [facility] XR MODIFIED BARIUM SWALLOWon 07-08-2020 XR MODIFIED [...] refer to the speech pathologist's detailed report. [employer] Workstation ID: [id number] Dictated by: BERNADETTE ARANA on MonJuly 08, 2020 7:29:57 PM EDT Transcribed by: CAMI CHAHAL on MonJuly 08, 2020 7:30:41 PM EDT Finalized by: BERNADETTE ARANA on MonJuly 08, 2020 8:40:23 PM EDT [facility] Comment on above: Order Comment: ROULA Gutierrez ORDER Injury/Trauma or Illness?:Illness/Other How long have you had these symptoms (acute/chronic)?:Acute Reason for exam?: Dyspepsia Type of Exam?:Ongoing Additional signs and symptoms?: Dyspepsia Fluoro time in minutes:.4 40 seconds fluoro Fluoro dose in mGy?:22.92 Basic Metabolic Panelon 02-13 Anion gap [Moles/Vol] 7 mmol/L Low 10 - 20 mmol/L [facility] Calcium [Mass/Vol] 9.2 mg/dL 8.4 - 10. 2 mg/dL [facility] Chloride [Moles/Vol] 98 mmol/L 98 - 10 8 mmol/L [facility] Creatinine [Mass/Vol] 1.56 mg/dL High 0.5 - 1.3 mg/dL [facility] GFR/1.73 sq M predicted among non-blacks MDRD (S/P/Bld) [Vol rate/Area] The eGFR should be used for monitoring renal function only and not for medication dosing. [facility] GFR/1.73 sq M.predicted CKD-EPI (S/P/Bld) [Vol rate/Area] 60 >=60 mL/min/1.73 m2 [facility] Glucose [Mass/Vol] 102 mg/dL High 65 - 99 mg/dL [facility] HCO3 [Moles/Vol] 40 mmol/L High 21 - 32 mmol/L [facility] Potassium [Moles/Vol] 4.0 mmol/L 3.5 - 5.1 mmol/L [facility] Sodium [Moles/Vol] 141 mmol/L 135 - 145 mmol/L [facility] Urea nitrogen [Mass/Vol] 28 mg/dL High 8 - 25 mg/dL [facility] Urea nitrogen/Creatinine [Mass ratio] 17.9 mg/mg [facility] CBC WITH AUTO DIFFERENTIALon 03-01-2019 Basophils (Bld) [#/Vol] 0.05 10*3/uL [facility] Basophils/100 WBC (Bld) 0.7 % [facility] Eosinophils (Bld) [#/Vol] 0.08 10*3/uL [facility] Eosinophils/100 WBC (Bld) 1.2 % [facility] Erythrocyte distribution width (RBC) [Entitic vol] 14.2 % 11.6 - 14.8 % [facility] Hematocrit (Bld) [Volume fraction] 41.3 % 41 - 53 % [facility] Hemoglobin (Bld) [Mass/Vol] 13.2 g/dL Low 13.5 - 17.5 g/dL [facility] Immature granulocytes (Bld) [#/Vol] 0.06 10*3/uL [facility] Immature granulocytes/100 WBC (Bld) 0.90 % [facility] Comment on above: The IG parameter is the percentage of metamyelocytes, myelocytes, and promyelocytes. Interpretation and review of laboratory results Abnormal [facility] Lymphocytes (Bld) [#/Vol] 1.76 10*3/uL [facility] Lymphocytes/100 WBC (Bld) 26.2 % [facility] MCH (RBC) [Entitic mass] 32.3 pg 26 - 34 pg [facility] MCHC (RBC) [Mass/Vol] 32.0 g/dL 31 - 37 g/dL [facility] MCV (RBC) [Entitic vol] 101.0 fL High 80 - 100 fL [facility] Monocytes (Bld) [#/Vol] 0.65 10*3/uL [facility] Monocytes/100 WBC (Bld) 9.7 % [facility] Neutrophils (Bld) [#/Vol] 4.12 10*3/uL [facility] Neutrophils/100 WBC (Bld) 61.3 % [facility] Nucleated RBC (Bld) [#/Vol] 0.00 10*3/uL [facility] Nucleated RBC/100 WBC (Bld) [Ratio] 0.0 % [facility] Platelet mean volume (Bld) [Entitic vol] 9.6 fL 9 - 15.5 fL [facility] Platelets (Bld) [#/Vol] 355 10*3/uL [facility] RBC (Bld) [#/Vol] 4.09 10*6/uL Low [facility] eah WBC (Bld) [#/Vol] 6.72 10*3/uL [facility] eah Magnesium Levelon 03-01-2019 Magnesium [Mass/Vol] 2.5 mg/dL High 1.6 - 2 .4 mg/dL [facility] Otheron 03-01-2019 Interpretation and review of laboratory results Abnormal [facility] Phosphoruson 03-01-2019 Interpretation and review of laboratory results Normal [facility] Phosphate [Mass/Vol] 4.2 mg/dL 2.7 - 4 .5 mg/dL [facility] Basic Metabolic Panelon 02-13 Anion gap [Moles/Vol] 8 mmol/L Low 10 - 20 mmol/L [facility] Calcium [Mass/Vol] 9.2 mg/dL 8.4 - 10. 2 mg/dL [facility] Chloride [Moles/Vol] 99 mmol/L 98 - 10 8 mmol/L [facility] Creatinine [Mass/Vol] 1.54 mg/dL High 0.5 - 1.3 mg/dL [facility] GFR/1.73 sq M predicted among non-blacks MDRD (S/P/Bld) [Vol rate/Area] The eGFR should be used for monitoring renal function only and not for medication dosing. [facility] GFR/1.73 sq M.predicted CKD-EPI (S/P/Bld) [Vol rate/Area] 61 >=60 mL/min/1.73 m2 [facility] Glucose [Mass/Vol] 95 mg/dL 65 - 99 mg[facility] [Moles/Vol] 38 mmol/L High 21 - 32 mmol/L [facility] Potassium [Moles/Vol] 4.1 mmol/L 3.5 - 5.1 mmol/L [facility] Sodium [Moles/Vol] 141 mmol/L 135 - 145 mmol/L [facility] Urea nitrogen [Mass/Vol] 27 mg/dL High 8 - 25 mg/dL [facility] Urea nitrogen/Creatinine [Mass ratio] 17.5 mg/mg [facility] CBC WITH AUTO DIFFERENTIALon 02-28-2019 Basophils (Bld) [#/Vol] 0.06 10*3/uL [facility] Basophils/100 WBC (Bld) 1.0 % [facility] Eosinophils (Bld) [#/Vol] 0.07 10*3/uL [facility] Eosinophils/100 WBC (Bld) 1.2 % [facility] Erythrocyte distribution width (RBC) [Entitic vol] 14.5 % 11.6 - 14.8 % [facility] Hematocrit (Bld) [Volume fraction] 41.4 % 41 - 53 % [facility] Hemoglobin (Bld) [Mass/Vol] 13.1 g/dL Low 13.5 - 17.5 g/dL [facility] Immature granulocytes (Bld) [#/Vol] 0.07 10*3/uL [facility] Immature granulocytes/100 WBC (Bld) 1.20 % [facility] Comment on above: The IG parameter is the percentage of metamyelocytes, myelocytes, and promyelocytes. Lymphocytes (Bld) [#/Vol] 2.12 10*3/uL [facility] Lymphocytes/100 WBC (Bld) 35.6 % [facility] MCH (RBC) [Entitic mass] 32.4 pg 26 - 34 pg [facility] MCHC (RBC) [Mass/Vol] 31.6 g/dL 31 - 37 g/dL [facility] MCV (RBC) [Entitic vol] 102.5 fL High 80 - 100 fL [facility] Monocytes (Bld) [#/Vol] 0.40 10*3/uL [facility] Monocytes/100 WBC (Bld) 6.7 % [facility] Neutrophils (Bld) [#/Vol] 3.23 10*3/uL [facility] Neutrophils/100 WBC (Bld) 54.3 % [facility] Nucleated RBC (Bld) [#/Vol] 0.00 10*3/uL [facility] Nucleated RBC/100 WBC (Bld) [Ratio] 0.0 % [facility] Platelet mean volume (Bld) [Entitic vol] 9.6 fL 9 - 15.5 fL [facility] Platelets (Bld) [#/Vol] 383 10*3/uL [facility] RBC (Bld) [#/Vol] 4.04 10*6/uL Low [facility] eah WBC (Bld) [#/Vol] 6.20 10*3/uL [facility] Magnesium Levelon 02-28-2019 Magnesium [Mass/Vol] 2.6 mg/dL High 1.6 - 2 .4 mg/dL [facility] Otheron 02-28-2019 Interpretation and review of laboratory results Abnormal [facility] Phosphoruson 02-28-2019 Phosphate [Mass/Vol] 4.7 mg/dL High 2.7 - 4 .5 mg/dL [facility] Basic Metabolic Panelon 02-13 Anion gap [Moles/Vol] 7 mmol/L Low 10 - 20 mmol/L [facility] Calcium [Mass/Vol] 9.2 mg/dL 8.4 - 10. 2 mg/dL [facility] Chloride [Moles/Vol] 101 mmol/L 98 - 10 8 mmol/L [facility] Creatinine [Mass/Vol] 1.54 mg/dL High 0.5 - 1.3 mg/dL [facility] GFR/1.73 sq M predicted among non-blacks MDRD (S/P/Bld) [Vol rate/Area] The eGFR should be used for monitoring renal function only and not for medication dosing. [facility] GFR/1.73 sq M.predicted CKD-EPI (S/P/Bld) [Vol rate/Area] 61 >=60 mL/min/1.73 m2 [facility] Glucose [Mass/Vol] 104 mg/dL High 65 - 99 mg/dL [facility] HCO3 [Moles/Vol] 40 mmol/L High 21 - 32 mmol/L [facility] Interpretation and review of laboratory results Abnormal [facility] Potassium [Moles/Vol] 4.0 mmol/L 3.5 - 5.1 mmol/L [facility] Sodium [Moles/Vol] 144 mmol/L 135 - 145 mmol/L [facility] Urea nitrogen [Mass/Vol] 24 mg/dL 8 - 25 mg/dL [facility] Urea nitrogen/Creatinine [Mass ratio] 15.6 mg/mg [facility] NT Pro BNPon 02-26-2019 Interpretation and review of laboratory results Normal [facility] Natriuretic peptide.B prohormone N-Terminal [Mass/Vol] 67 pg/mL 0 - 300 pg/mL [facility] Priar Study Cut-offs Rule In: < /= 50 Years >450 pg/mL 51 Years - 75 Years >900 pg/mL 76 Years - 99 Years >1800 pg/mL Rule Out: All patients <300 pg/mL [facility] ECHOCARDIOGRAM 2D COMPLETEon 02-25-2019 Interface, Rad In [facility] - 02/25/2019 1:[address] [address] [place] [address] ----- ECHOCARDIOGRAPHY REPORT - [facility] ----- Name: FAHAD BERNABE Age: 28 years Date: 02/25/2019 Hospital #: [id number] : 1990 Room: [address] [place] [address] #: [id number] Sex: M Tech: Gary Calvillo Ordering Physician: [id number] HOLDEN HINTON Height: 57.00 in Sys BP: 124 MARLENE cc: , Weight: 264.00 Nidia BP: 79 Reading Physician: [id number] Kate Marrero MD/ Rhythm: Electronically Signed by: [id number] Kate Marrero MD BSA: 2.02 m on: [...] LA Index (BP) 29.8 ml/m TAPSE LAESV GAS METER INSTALLER NOTES: Definity (if used): 1ml Final IMPRESSION: Poor quality, apical views borderline nondiagnostic. Definity given [address] [address] [place] [address] ---- ECHOCARDIOGRAPHY REPORT - [facility] ---- Name: FAHAD BERNABE Age: 28 years Date: 02/25/2019 [facility] #: [id number] : 1990 Room: [address] [place] [address] #: [id number] Sex: M Tech: Gary Shaw Rajinder Ordering Physician: [id number] HOLDEN HINTON Height: 57.00 in Sys BP: 124 MARLENE cc: , Weight: 264.00 Nidia BP: 79 Reading Physician: [id number] Marrero MD/ Rhythm: Electronically Signed by: Basilia [...] LA Index (BP) 29.8 ml/m TAPSE LAESV G[employer] METER INSTALLER NOTES: Definity (if used): 1ml Final [facility] Poor quality, apical views borderline nondiagnostic. Definity given [facility] [place] Levelon 02-25-2019 Interpretation and review of laboratory results Abnormal [facility] [place] [Moles/Vol] 0.5 mmol/L Low 0.6 - 1. 2 mmol/L [facility] POC ARTERIAL BLOOD GAS PANEL [facility] 02-25-2019 Base excess Calc (Bld) [Moles/Vol] 12.9 mmol/L High [facility] Breath rate setting Ventilator synchronized intermittent mandatory [facility] CO2 (Bld) [Partial pressure] 71.3 mm[Hg] High [facility] HCO3 (Bld) [Moles/Vol] 41.1 mmol/L High 22 - 26 mmol /L [facility] Hematocrit (BldA) [Volume fraction] 37.2 % Low 41 - 53 % [facility] Hemoglobin (Bld) [Mass/Vol] 12.1 g/dL Low 13.5 - 18 g/dL [facility] Inhaled oxygen concentration 0 % [facility] Inhaled oxygen flow rate 4 L/min [facility] Interpretation and review of laboratory results Abnormal [facility] Oxygen (Bld) [Partial pressure] 94 mm[Hg] [facility] pH (Bld) 7.37 [pH] [facility] SaO2% (BldA) [Mass fraction] 97.2 % 92 - 99 % [facility] Specimen source Nom (Unsp spec) Radial, left [facility] Tidal volume setting Ventilator 0 [facility] Base excess Calc (Bld) [Moles/Vol] 9.5 mmol/L High [facility] Breath rate setting Ventilator synchronized intermittent mandatory 0 [place] CO2 (Bld) [Partial pressure] 61.8 mm[Hg] High [facility] HCO3 (Bld) [Moles/Vol] 36.7 mmol/L High 22 - 26 mmol /L [facility] Hematocrit (BldA) [Volume fraction] 37.1 % Low 41 - 53 % [facility] Hemoglobin (Bld) [Mass/Vol] 12.1 g/dL Low 13.5 - 18 g/dL [facility] Inhaled oxygen concentration 0 % [facility] Inhaled oxygen flow rate 2 L/min [facility] Interpretation and review of laboratory results Abnormal [facility] Oxygen (Bld) [Partial pressure] 73 mm[Hg] Low [facility] pH (Bld) 7.38 [pH] [facility] SaO2% (BldA) [Mass fraction] 95.2 % 92 - 99 % [facility] Specimen source Nom (Unsp spec) Radial, left [facility] Tidal volume setting Ventilator 0 [facility] XR MODIFIED BARIUM SWALLOWon 02-25-2019 Recommendation is diet per Speech Pathology. Modified barium swallow study as described above. Please see Speech Pathologist report for complete details. MWK/pji Workstation ID: [id number] [facility] EXAMINATION: XR MODIFIED BARIUM SWALLOW HISTORY: [...] 506. FINDINGS: The oral phase demonstrated slow gdxzootd-rt-wutabkj or transit with posterior fall off into the pharynx with large volumes. The pharyngeal phase demonstrated no significant residue was seen following swallowing. There was some flash penetration seen with the thin liquid when a large volume was ingested. Aspiration was not seen during the examination. [facility] Interface, Rad In Fuji Speechq - [...] 506. FINDINGS: The oral phase demonstrated slow hcrntblo-xs-stveflo or transit with posterior fall off into [...] for complete details. KASSIEK/tania Workstation ID: [id number] [facility] CBC WITH AUTO DIFFERENTIALon 02-24-2019 Basophils (Bld) [#/Vol] 0.02 10*3/uL [facility] Basophils/100 WBC (Bld) 0.3 % [facility] Eosinophils (Bld) [#/Vol] 0.04 10*3/uL [facility] Eosinophils/100 WBC (Bld) 0.7 % [facility] Erythrocyte distribution width (RBC) [Entitic vol] 14.7 % 11.6 - 14.8 % [facility] Hematocrit (Bld) [Volume fraction] 38.2 % Low 41 - 53 % [facility] Hemoglobin (Bld) [Mass/Vol] 11.8 g/dL Low 13.5 - 17.5 g/dL [facility] Immature granulocytes (Bld) [#/Vol] 0.05 10*3/uL [facility] Immature granulocytes/100 WBC (Bld) 0.80 % [facility] Comment on above: The IG parameter is the percentage of metamyelocytes, myelocytes, and promyelocytes. Interpretation and review of laboratory results Abnormal [facility] Lymphocytes (Bld) [#/Vol] 1.37 10*3/uL [facility] Lymphocytes/100 WBC (Bld) 23.2 % [facility] MCH (RBC) [Entitic mass] 32.2 pg 26 - 34 pg [facility] MCHC (RBC) [Mass/Vol] 30.9 g/dL Low 31 - 37 g/dL [facility] MCV (RBC) [Entitic vol] 104.1 fL High 80 - 100 fL [facility] Monocytes (Bld) [#/Vol] 0.55 10*3/uL [facility] Monocytes/100 WBC (Bld) 9.3 % [facility] Neutrophils (Bld) [#/Vol] 3.87 10*3/uL [facility] Neutrophils/100 WBC (Bld) 65.7 % [facility] Nucleated RBC (Bld) [#/Vol] 0.00 10*3/uL [facility] Nucleated RBC/100 WBC (Bld) [Ratio] 0.0 % [facility] Platelet mean volume (Bld) [Entitic vol] 9.4 fL 9 - 15.5 fL [facility] Platelets (Bld) [#/Vol] 233 10*3/uL [facility] RBC (Bld) [#/Vol] 3.67 10*6/uL Low [facility] WBC (Bld) [#/Vol] 5.90 10*3/uL [facility] Comprehensive Metabolic Pane rachel 02-24-2019 Albumin [Mass/Vol] 2.8 g/dL Low 3.2 - 5.2 g/dL [facility] ALP [Catalytic activity/Vol] 80 U/L 40 - 140 U/L [facility] ALT [Catalytic activity/Vol] 20 U/L 14 - 65 U/L [facility] Anion gap [Moles/Vol] 7 mmol/L Low 10 - 20 mmol/L [facility] AST [Catalytic activity/Vol] 12 U/L 0 - 45 U/L [facility] Bilirubin [Mass/Vol] 0.2 mg/dL 0 - 1.3 mg/dL [facility] Calcium [Mass/Vol] 8.8 mg/dL 8.4 - 10. 2 mg/dL [facility] Chloride [Moles/Vol] 106 mmol/L 98 - 10 8 mmol/L [facility] Creatinine [Mass/Vol] 1.26 mg/dL 0.5 - 1.3 mg/dL [facility] GFR/1.73 sq M predicted among non-blacks MDRD (S/P/Bld) [Vol rate/Area] The eGFR should be used for monitoring renal function only and not for medication dosing. [facility] GFR/1.73 sq M.predicted CKD-EPI (S/P/Bld) [Vol rate/Area] 78 >=60 mL/min/1.73 m2 [facility] Glucose [Mass/Vol] 99 mg/dL 65 - 99 mg/dL [facility] HCO3 [Moles/Vol] 34 mmol/L High 21 - 32 mmol/L [facility] Interpretation and review of laboratory results Abnormal [facility] Potassium [Moles/Vol] 4.3 mmol/L 3.5 - 5.1 mmol/L [facility] Protein [Mass/Vol] 7.8 g/dL 6 - 8 g/dL [facility] alth Sodium [Moles/Vol] 143 mmol/L 135 - 145 mmol/L [facility] Urea nitrogen [Mass/Vol] 12 mg/dL 8 - 25 mg/dL [facility] Urea nitrogen/Creatinine [Mass ratio] 9.5 mg/mg Low [facility] Hemoglobin A1con 02-24-2019 Average glucose Estimated from glycated hemoglobin mass conc (Bld) 117 mg/dL High 68 - 114 mg/dL [facility] HbA1c (Bld) [Mass fraction] 5.7 % High 4 - 5.6 % [facility] Interpretation and review of laboratory results Abnormal [facility] Normal: 4.0% - 5.6% Increased risk for diabetes: 5.7% - 6.4% Diabetes: >= 6.5% Pediatrics: No established reference range Estimated average glucose: 68-114 mg/dL [facility] INFLUENZA A,B RAPID MOLECULA Jesus 02-24-2019 FLUAV RNA EDER+probe Ql (Unsp spec) Not Detected Not Detected [facility] FLUBV RNA EDER+probe Ql (Unsp spec) Not Detected Not Detected [facility] Interpretation and review of laboratory results Normal [facility] Test Method: Nucleic Acid Amplification [facility] LEGIONELLA ANTIGEN, URINEon 02-24-2019 L. pneumophila Ag Ql (U) Negative Negative for Legionella antigen [facility] Comment on above: COMMENT: Results may be affected if patient is on diuretics. INTERPRETATION OF RESULTS: Test detects Legionella pneumophilia serogroup 1 antigens in urine. Legionnaires disease cannot be ruled out since other serogroups and species may also cause disease. Magnesiumon 02-24-2019 Magnesium [Mass/Vol] 2.2 mg/dL 1.6 - 2 .4 mg/dL [facility] Otheron 02-24-2019 Interpretation and review of laboratory results Normal [facility] Interpretation and review of laboratory results Normal [facility] Phosphoruson 02-24-2019 Phosphate [Mass/Vol] 4.1 mg/dL 2.7 - 4 .5 mg/dL [facility] S.PNEUMONIAE URINE ANTIGENon 02-24-2019 S. pneumoniae Ag Ql (U) Negative Pres umptive Negative for Pneumococcal pneumoniae [facility] Comment on above: A negative result jimenes ggests no current or recent pneumococcal infection. A negative result does not rule out Streptococcus pneumoniae infection since the antigen present in the sample may be below the detection limit of the test. TSHon 02-24-2019 TSH Qn 2.18 m[IU]/L [facility] Valproic Acid Levelon 2019 Interpretation and review of laboratory results Abnormal [facility] Valproate [Mass/Vol] 47 ug/mL Low [facility] Alcohol, Medicalon 0 Ethanol [Mass/Vol] mg/dL <10.00 mg/dL [facility] Comment on above: Alcohol cutoff: <10. 00 mg/dL = None Detected Interpretation and review of laboratory results Normal [facility] Ammoniaon 02-23-2019 Ammonia (P) [Mass/Vol] 43 ug/dL [facility] Interpretation and review of laboratory results Normal [facility] BMPon 02-23-2019 Anion gap [Moles/Vol] 10 mmol/L 10 - 20 mmol/L [facility] Calcium [Mass/Vol] 8.3 mg/dL Low 8.4 - 10. 2 mg/dL [facility] Chloride [Moles/Vol] 108 mmol/L 98 - 10 8 mmol/L [facility] Creatinine [Mass/Vol] 1.20 mg/dL 0.5 - 1.3 mg/dL [facility] GFR/1.73 sq M predicted among non-blacks MDRD (S/P/Bld) [Vol rate/Area] The eGFR should be used for monitoring renal function only and not for medication dosing. [facility] GFR/1.73 sq M.predicted CKD-EPI (S/P/Bld) [Vol rate/Area] 83 >=60 mL/min/1.73 m2 [facility] Glucose [Mass/Vol] 104 mg/dL High 65 - 99 mg/dL [facility] HCO3 [Moles/Vol] 30 mmol/L 21 - 32 mmol/L [facility] Potassium [Moles/Vol] 4.8 mmol/L 3.5 - 5.1 mmol/L [facility] Sodium [Moles/Vol] 143 mmol/L 135 - 145 mmol/L [facility] Urea nitrogen [Mass/Vol] 15 mg/dL 8 - 25 mg/dL [facility] Urea nitrogen/Creatinine [Mass ratio] 12.5 mg/mg [facility] CBC WITH AUTO DIFFERENTIALon 02-23-2019 Basophils (Bld) [#/Vol] 0.03 10*3/uL [facility] Basophils/100 WBC (Bld) 0.3 % [facility] Eosinophils (Bld) [#/Vol] 0.04 10*3/uL [facility] Eosinophils/100 WBC (Bld) 0.4 % [facility] Erythrocyte distribution width (RBC) [Entitic vol] 14.4 % 11.6 - 14.8 % [facility] Hematocrit (Bld) [Volume fraction] 35.1 % Low 41 - 53 % [facility] Hemoglobin (Bld) [Mass/Vol] 10.9 g/dL Low 13.5 - 17.5 g/dL [facility] Immature granulocytes (Bld) [#/Vol] 0.02 10*3/uL [facility] Immature granulocytes/100 WBC (Bld) 0.20 % [facility] Comment on above: The IG parameter is the percentage of metamyelocytes, myelocytes, and promyelocytes. Interpretation and review of laboratory results Abnormal [facility] Lymphocytes (Bld) [#/Vol] 1.22 10*3/uL [facility] Lymphocytes/100 WBC (Bld) 11.1 % [facility] MCH (RBC) [Entitic mass] 32.3 pg 26 - 34 pg [facility] MCHC (RBC) [Mass/Vol] 31.1 g/dL 31 - 37 g/dL [facility] MCV (RBC) [Entitic vol] 104.2 fL High 80 - 100 fL [facility] Monocytes (Bld) [#/Vol] 0.89 10*3/uL [facility] Monocytes/100 WBC (Bld) 8.1 % [facility] Neutrophils (Bld) [#/Vol] 8.75 10*3/uL High [facility] Neutrophils/100 WBC (Bld) 79.9 % [facility] Platelet mean volume (Bld) [Entitic vol] 9.0 fL 9 - 15.5 fL [facility] Platelets (Bld) [#/Vol] 241 10*3/uL [facility] RBC (Bld) [#/Vol] 3.37 10*6/uL Low [facility] WBC (Bld) [#/Vol] 10.95 10*3/uL [facility] CT HEAD OR BRAIN WITHOUT CON TRASTon 02-23-2019 EXAMINATION: CT HEAD OR BRAIN WITHOUT CONTRAST 02/23/2019 COMPARISON: None. HISTORY: Injury/Trauma or Illness?:Illness/Ot her How long have you had these symptoms (acute/chronic)?:[place] Altered mental status Pt having trouble staying [...] cells are clear. No acute osseous abnormality. [facility] Interface, Rad In Joeli Speechq - 02/23/2019 3:59 PM EST EXAMINATION: CT HEAD OR BRAIN WITHOUT CONTRAST 02/23/2019 COMPARISON: None. HISTORY: Injury/Trauma or Illness?:Illness/Ot her How long have you had these symptoms (acute/chronic)?:[place] Altered mental status Pt having trouble staying [...] medication. Correlate clinically. GJT/lab Workstation ID: [id number] [facility] 1. No acute intracranial abnormality identified. 2. Mild cerebral and cerebellar atrophy greater than typically seen for patient's age. This may be on the basis of chronic use of antiseizure medication. Correlate clinically. GJT/lab Workstation ID: [id number] [facility] DRUGS OF ABUSE SCREEN, URINE on 02-23-2019 Amphetamines Ql (U) None Detected None Detected [facility] Comment on above: Urine Amphetamine Cu toff: < 1000 ng/mL = None Detected Barbiturates Screen Ql (U) None Detected None Detected [facility] Comment on above: Urine Barbiturates C utoff: < 200 ng/mL = None Detected Benzodiazepines Ql (U) None Detected None Detec shayy [facility] Comment on above: Urine Benzodiazepine Cutoff: < 200 ng/mL = None Detected Cannabinoids Screen Ql (U) None Detected None Detected [facility] Comment on above: Urine Cannabinoids C utoff: < 50 ng/mL = None Detected Cocaine Ql (U) None Detected None Detected [facility] Comment on above: Urine Cocaine Cutoff : < 300 ng/mL = None Detected Interpretation and review of laboratory results Normal [facility] Methadone Screen Ql (U) None Detected None Dete cted [facility] Comment on above: Urine Methadone Cuto ff: < 300 ng/mL = None Detected Opiates Screen Ql (U) None Detected None Detect ed [facility] Comment on above: Urine Opiates Cutoff : < 300 ng/mL = None Detected Oxycodone Ql (U) None Detected None Detected [facility] Comment on above: Urine Oxycodone Cuto ff: < 100 ng/mL = None Detected Screen results should be used for treatment purposes only. [facility] ECG 12-LEADon 02-23-2019 Atrial Rate 80 BPM [facility] P Drifting 34 degrees [facility] P-R Interval 194 ms [facility] Q-T Interval 400 ms [facility] QRS Duration 122 ms [facility] QTC Calculation (Bezet) 461 [facility] Dr[facility] 43 degrees [facility] T Drifting 62 degrees [facility] Ventricular Rate 80 BPM [facility] ECG Cart Interpretation see physician note for interpretation. Normal sinus rhythm Right bundle branch block Cannot rule out Inferior infarct , age undetermined Abnormal ECG Confirmed by Agata Johnston ([id number]) on 02/23/2019 3:42:27 PM [facility] Hepatic Function Panel (LFT) on 02-23-2019 Albumin [Mass/Vol] 2.6 g/dL Low 3.2 - 5.2 g/dL [facility] ALP [Catalytic activity/Vol] 73 U/L 40 - 140 U/L [facility] ALT [Catalytic activity/Vol] 21 U/L 14 - 65 U/L [facility] AST [Catalytic activity/Vol] 18 U/L 0 - 45 U/L [facility] Bilirubin [Mass/Vol] 0.1 mg/dL 0 - 1.3 mg/dL [facility] Bilirubin.conjugated [Mass/Vol] mg/dL 0 - 0.4 mg/dL [facility] Protein [Mass/Vol] 7.4 g/dL 6 - 8 g/dL [facility] Lactic Acid, Plasmaon 2019 Interpretation and review of laboratory results Normal [facility] Lactate [Moles/Vol] 0.7 mmol/L 0.6 - 2 mmol/L [facility] Lipaseon 02-23-2019 Lipase [Catalytic activity/Vol] 129 U/L 73 - 393 U/L [facility] NT Pro BNPon 02-23-2019 Interpretation and review of laboratory results Normal [facility] Natriuretic peptide.B prohormone N-Terminal [Mass/Vol] 252 pg/mL 0 - 300 pg/mL [facility] Pride Study Cut-offs Rule In: < /= 50 Years >450 pg/mL 51 Years - 75 Years >900 pg/mL 76 Years - 99 Years >1800 pg/mL Rule Out: All patients <300 pg/mL [facility] Otheron 02-23-2019 Interpretation and review of laboratory results Abnormal [facility] Interpretation and review of laboratory results Normal [facility] Base excess Calc (Bld) [Moles/Vol] 5.8 mmol/L High [facility] Breath rate setting Ventilator synchronized intermittent mandatory 0 [facility] CO2 (Bld) [Partial pressure] 56.6 mm[Hg] High [facility] HCO3 (Bld) [Moles/Vol] 32.5 mmol/L High 22 - 26 mmol /L [facility] Hematocrit (BldA) [Volume fraction] 35.0 % Low 41 - 53 % [facility] Hemoglobin (Bld) [Mass/Vol] 11.4 g/dL Low 13.5 - 18 g/dL [facility] Inhaled oxygen concentration 0 % [facility] Interpretation and review of laboratory results Abnormal [facility] Oxygen (Bld) [Partial pressure] 82 mm[Hg] [facility] pH (Bld) 7.37 [pH] [facility] SaO2% (BldA) [Mass fraction] 96.7 % 92 - 99 % [facility] Tidal volume setting Ventilator 0 [facility] POC Arterial Blood Gaseson 0 02-23-2019 Base Excess, Arterial 5 High [facility] CO2 (Bld) [Partial pressure] 64.2 mm[Hg] High [facility] HCO3 (Bld) [Moles/Vol] 33.1 mmol/L High 22 - 26 mmol /L [facility] Hematocrit (Bld) [Volume fraction] 34 % Low 41 - 53 % [facility] Hemoglobin (Bld) [Mass/Vol] 11.6 g/dL Low 13.5 - 17.5 g/dL [facility] Interpretation and review of laboratory results Abnormal [facility] Oxygen (Bld) [Partial pressure] 76 mm[Hg] Low [facility] pH (Bld) 7.32 [pH] Low [facility] SaO2% (BldA) [Mass fraction] 93.0 % 92 - 99 % [facility] POC Glucoseon 02-23-2019 Glucose [Mass/Vol] 100 mg/dL Abnormal 65 - 99 mg/dL [facility] Interpretation and review of laboratory results Abnormal [facility] Glucose [Mass/Vol] 100 mg/dL High 65 - 99 mg/dL [facility] Interpretation and review of laboratory results Abnormal [facility] PT/INRon 02-23-2019 INR Coag (PPP) [Relative time] 1.1 {INR} [facility] Interpretation and review of laboratory results Normal [facility] PT Coag (PPP) [Time] 13.8 s [facility] During the induction phase of oral anticoagulation, the INR may not reflect the anticoagulation status of the patient. Therapeutic ranges for INR's are: Most clinical situations: INR 2.0-3.0 Mechanical Prosthetic Valve: INR 2.5-3.5 Critical: INR >5.0 [facility] TSH with Reflex Free T4on TSH Qn 1.01 m[IU]/L [facility] URINALYSISon 02-23-2019 Bacteria Auto Ql (U) Rare Abnormal None Seen /hpf [facility] Bilirubin Ql (U) Negative Negative [facility] Clarity Refractometry automated (U) Clear Clear [facility] Color (U) Yellow Colorless, Yellow [facility] Epithelial cells.squamous Auto (Urine sed) [#/Area] 1 [facility] Glucose Auto test strip (U) [Mass/Vol] Negative Negative mg/dL [facility] Hemoglobin Auto test strip Ql (U) Negative Negative [facility] Interpretation and review of laboratory results Abnormal [facility] Ketones (U) [Mass/Vol] Negative Negative mg/d L [facility] Leukocyte esterase Auto test strip Ql (U) Negative Negative [facility] Nitrite Auto test strip Ql (U) Negative Negative [facility] pH (U) 6.0 [pH] [facility] Protein (U) [Mass/Vol] Negative Negative mg/d L [facility] Specific gravity (U) [Rel density] 1.015 [facility] Urobilinogen (U) [Mass/Vol] <2.0 <2.0 mg/dL [facility] WBC Auto (Urine sed) [#/Area] 1 [facility] Microscopic examination is performed on all urinalysis samples and only positive findings are reported. The test for blood on the chemical analytic portion of urinalysis may also be positive due to hemoglobinuria and myoglobinuria and if red blood cells are present they are quantified by microscopic examination. [facility] Valproic Acid Levelon 2019 Interpretation and review of laboratory results Normal [facility] Valproate [Mass/Vol] 72 ug/mL [facility] XR Chest 1 Viewon 02-23-2019 EXAMINATION: 1 VIEW XR CHEST PA/AP, 02/23/2019 COMPARISON: Chest, 01/06/2018 HISTORY: Injury/Trauma or Illness?:Illness/Ot her How long have you had these symptoms (acute/chronic)?:[place] Altered mental status [facility] 1. Mild diffuse interstitial edema and/or mild inflammatory infectious pneumonitis. Correlate clinically. 2. Mild prominent cardiac silhouette slightly accentuated due to patient rotation to the left. 3. No acute osseous abnormality. [employer] Workstation ID: [id number] [facility] Interface, Rad In [facility] Speechq - 02/23/2019 3:59 PM EST EXAMINATION: 1 VIEW XR CHEST PA/AP, 02/23/2019 COMPARISON: Chest, 01/06/2018 HISTORY: Injury/Trauma or Illness?:Illness/Ot her How long have you had these symptoms (acute/chronic)?:[place] Altered mental status IMPRESSION: 1. Mild diffuse interstitial edema and/or mild inflammatory infectious pneumonitis. Correlate clinically. 2. Mild prominent cardiac silhouette slightly accentuated due to patient rotation to the left. 3. No acute osseous abnormality. [employer] Workstation ID: [id number] [facility] CBC, EDIF, PLATELETon 2017 ABSOLUTE BASOPHIL COUNT 0.0 Invalid Interpretation Code X10 [address] Comment on above: Testing performed at [place], [place] [address] Basophils/100 WBC Auto (Bld) 0.1 % Invalid Interpretation Code 0 - 2 % [address] Differential cell count method Nom (Bld) AUTO DIFF Invalid Interpretation Code % [address] Eosinophils Auto #/vol (Bld) 0.00 10*3/uL Invalid Interpretation Code X10 [address] Eosinophils/100 WBC Auto (Bld) 0.0 % Invalid Interpretation Code 0 - 11 % [address] Erythrocyte distribution width Ratio (RBC) 15.3 % High 11.5 - 14.5 % [address] Hematocrit Auto Volume Fraction (Bld) 35.6 % Low 42 - 52 % [address] Hemoglobin mass conc (Bld) 11.7 g/dL Low [address] Lymphocytes Manual cnt #/vol (Bld) 1.50 Invalid Interpretation Code X10 [address] Lymphocytes/100 WBC Auto (Bld) 16.7 % Low 20 - 55 % [address] MCH Auto Entitic mass (RBC) 33.1 pg Invalid Interpretation Code 26 - [address] MCHC Auto mass conc (RBC) 32.8 g/dL Invalid Interpretation Code [address] MCV Auto Entitic volume (RBC) 101.2 fL High [address] Monocytes Manual cnt #/vol (Bld) 0.5 Invalid Interpretation Code X10 [address] Monocytes/100 WBC Auto (Bld) 5.2 % Invalid Interpretation Code 0 - 10 % [address] Neutrophils Auto #/vol (Bld) 7.0 10*3/uL Invalid Interpretation Code [address] Neutrophils/100 WBC Auto (Bld) 78.0 % High 37 - 75 % [address] Platelet mean volume Auto Entitic volume (Bld) 7.6 fL Invalid Interpretation Code [address] Platelets Auto #/vol (Bld) 213 10*3/uL Invalid Interpretation Code [address] RBC Auto #/vol (Bld) 3.52 10*6/uL Low [place] [address] WBC Auto #/vol (Bld) 9.0 10*3/uL Invalid Interpretation Code [facility] [address] [facility] CHEST WITHOUT CONTRASTon 01-08-2018 EXAM: CT [...] 01-08-2018 Magnesium mass conc 2.4 mg/dL High [address] Comment on above: Testing performed at [facility], [place], [place] [address] Otheron 01-08-2018 Interpretation and review of laboratory results Abnormal Invalid Interpretation Code [address] RENAL FUNCTION PANELon 01-08 Albumin mass conc 3.5 G/dl Invalid Interpretation Code 3.5 - 5 G/dl [address] Calcium mass conc 8.8 mg/dL Invalid Interpretation Code [address] Chloride molar conc 113 mmol/L High [address] Comment on above: Please note: Triglyc eride levels of 600mg/dL or higher may positively bias chloride results by approximately 2.1 mmol CO2 molar conc 28 mmol/L Invalid Interpretation Code [address] Creatinine mass conc 1.0 mg/dL Invalid Interpretation Code [address] GFR/1.73 sq M predicted among blacks MDRD vol rate/area (S/P/Bld) mL/min/{1.73_m2} Invalid Interpretation Code ml/min/1.73sq. m [address] GFR/1.73 sq M predicted among non-blacks MDRD vol rate/area (S/P/Bld) Average GFR for 20-29 years old = 116. Invalid Interpretation Code [address] Comment on above: Chronic Kidney disea se, GFR = <60. Kidney failure, GFR = <15. The GFR estimate is not adjusted for extreme body surface area or acute process, nor has it been validated for women or ethnic groups other than and . Testing performed at [place], [place] [address] GFR/1.73 sq M predicted among non-blacks MDRD vol rate/area (S/P/Bld) mL/min/{1.73_m2} Invalid Interpretation Code ml/min/1.73sq. m [address] Glucose fasting mass conc 106 mg/dL [address] Comment on above: NORMAL <100 mg/dL [place] EDIABETES 101-126 mg/dL DIABETES 126 mg/dL or higher Phosphate mass conc 3.0 mg/dL Invalid Interpretation Code [address] Potassium molar conc 4.4 mmol/L Invalid Interpretation Code [address] Sodium molar conc 145 mmol/L Invalid Interpretation Code [address] Urea nitrogen mass conc 11 mg/dL Invalid Interpretation Code [address] CBC, EDIF, PLATELETon 2017 ABSOLUTE BASOPHIL COUNT 0.0 Invalid Interpretation Code X10 [address] Comment on above: Testing performed at [place], [place] [address] Basophils/100 WBC Auto (Bld) 0.1 % Invalid Interpretation Code 0 - 2 % [address] Differential cell count method Nom (Bld) AUTO DIFF Invalid Interpretation Code % [address] Eosinophils Auto #/vol (Bld) 0.00 10*3/uL Invalid Interpretation Code X10 [address] Eosinophils/100 WBC Auto (Bld) 0.0 % Invalid Interpretation Code 0 - 11 % [address] Erythrocyte distribution width Ratio (RBC) 15.4 % High 11.5 - 14.5 % [address] Hematocrit Auto Volume Fraction (Bld) 35.0 % Low 42 - 52 % [address] Hemoglobin mass conc (Bld) 11.4 g/dL Low [address] Lymphocytes Manual cnt #/vol (Bld) 1.20 Invalid Interpretation Code X10 [address] Lymphocytes/100 WBC Auto (Bld) 9.7 % Low 20 - 55 % [address] MCH Auto Entitic mass (RBC) 32.9 pg Invalid Interpretation Code 26 - [address] MCHC Auto mass conc (RBC) 32.5 g/dL Invalid Interpretation Code [address] MCV Auto Entitic volume (RBC) 101.3 fL High [address] Monocytes Manual cnt #/vol (Bld) 0.6 Invalid Interpretation Code X10 [address] Monocytes/100 WBC Auto (Bld) 5.1 % Invalid Interpretation Code 0 - 10 % [address] Neutrophils Auto #/vol (Bld) 10.6 10*3/uL High [address] Neutrophils/100 WBC Auto (Bld) 85.1 % High 37 - 75 % [address] Platelet mean volume Auto Entitic volume (Bld) 7.4 fL Invalid Interpretation Code [address] Platelets Auto #/vol (Bld) 216 10*3/uL Invalid Interpretation Code [address] RBC Auto #/vol (Bld) 3.45 10*6/uL [address] WBC Auto #/vol (Bld) 12.5 10*3/uL [address] [facility] 12-15 L. pneumophila 1 Ag IA Ql (U) Negative Invalid Interpretation Code NEGATIVE [address] Comment on above: Testing performed at [place], [place] [address] MAGNESIUMon 01-07-2018 Magnesium mass conc 2.2 mg/dL Invalid Interpretation Code [address] Comment on above: Testing performed at [place] [id number] Otheron 01-07-2018 Interpretation and review of laboratory results Abnormal Invalid Interpretation Code [address] RENAL FUNCTION PANELon 01-07 Albumin mass conc 3.3 G/dl Low 3.5 - 5 G/dl [address] Calcium mass conc 8.3 mg/dL Low [address] Chloride molar conc 111 mmol/L High [address] Comment on above: Please note: Triglyc eride levels of 600mg/dL or higher may positively bias chloride results by approximately 2.1 mmol CO2 molar conc 27 mmol/L Invalid Interpretation Code [address] Creatinine mass conc 1.2 mg/dL Invalid Interpretation Code [address] GFR/1.73 sq M predicted among blacks MDRD vol rate/area (S/P/Bld) mL/min/{1.73_m2} Invalid Interpretation Code ml/min/1.73sq. m [address] GFR/1.73 sq M predicted among non-blacks MDRD vol rate/area (S/P/Bld) mL/min/{1.73_m2} Invalid Interpretation Code ml/min/1.73sq. m [address] GFR/1.73 sq M predicted among non-blacks MDRD vol rate/area (S/P/Bld) Average GFR for 20-29 years old = 116. Invalid Interpretation Code [address] Comment on above: Chronic Kidney disea se, GFR = <60. Kidney failure, GFR = <15. The GFR estimate is not adjusted for extreme body surface area or acute process, nor has it been validated for women or ethnic groups other than and . Testing performed at [place], [place] [address] Glucose fasting mass conc 109 mg/dL [address] Comment on above: NORMAL <100 mg/dL [place] EDIABETES 101-126 mg/dL DIABETES 126 mg/dL or higher Phosphate mass conc 2.9 mg/dL Invalid Interpretation Code [address] Potassium molar conc 4.2 mmol/L Invalid Interpretation Code [address] Sodium molar conc 146 mmol/L High [address] Urea nitrogen mass conc 10 mg/dL Invalid Interpretation Code [address] STREP PNEUMONIAE ANTIGEN, UR INEon 01-07-2018 S. pneumoniae Ag Ql (U) Negative Invalid Interpretation Code NEGATIVE [address] Comment on above: Testing performed at [place], [place] [address] B-TYPE NATRIURETIC PEPTIDE ( BRAIN)on 01-06-2018 Natriuretic peptide B mass conc (Bld) 61 pg/mL Invalid Interpretation Code 0 - 100 pg/mL [address] Comment on above: Testing performed at [place], [place] [address] BASIC METABOLIC PANELon 12-15 Anion gap 3 molar conc 6 mmol/L Low [place] [address] Calcium mass conc 8.8 mg/dL Invalid Interpretation Code [address] Chloride molar conc 107 mmol/L Invalid Interpretation Code [address] Comment on above: Please note: Triglyc eride levels of 600mg/dL or higher may positively bias chloride results by approximately 2.1 mmol CO2 molar conc 30 mmol/L Invalid Interpretation Code [address] Creatinine mass conc 1.3 mg/dL High [address] GFR/1.73 sq M predicted among blacks MDRD vol rate/area (S/P/Bld) mL/min/{1.73_m2} Invalid Interpretation Code ml/min/1.73sq. m [address] GFR/1.73 sq M predicted among non-blacks MDRD vol rate/area (S/P/Bld) Average GFR for 20-29 years old = 116. Invalid Interpretation Code [address] Comment on above: Chronic Kidney disea se, GFR = <60. Kidney failure, GFR = <15. The GFR estimate is not adjusted for extreme body surface area or acute process, nor has it been validated for women or ethnic groups other than and . Testing performed at [place], [place] [address] GFR/1.73 sq M predicted among non-blacks MDRD vol rate/area (S/P/Bld) mL/min/{1.73_m2} Invalid Interpretation Code ml/min/1.73sq. m [address] Glucose fasting mass conc 121 mg/dL High [address] Comment on above: NORMAL <100 mg/dL [place] EDIABETES 101-126 mg/dL DIABETES 126 mg/dL or higher Potassium molar conc 4.3 mmol/L Invalid Interpretation Code [address] Sodium molar conc 143 mmol/L Invalid Interpretation Code [address] Urea nitrogen mass conc 13 mg/dL Invalid Interpretation Code [address] C REACTIVE PROTEINon 018 CRP mass conc 200.1 mg/L High 0 - 10 MG/L [address] Comment on above: Testing performed at [place], [place] [address] CBC, EDIF, PLATELETon 2017 ABSOLUTE BASOPHIL COUNT 0.0 Invalid Interpretation Code X10 [address] Comment on above: Testing performed at [place], [place] [address] Basophils/100 WBC Auto (Bld) 0.3 % Invalid Interpretation Code 0 - 2 % [address] Differential cell count method Nom (Bld) AUTO DIFF Invalid Interpretation Code % [address] Eosinophils Auto #/vol (Bld) 0.00 10*3/uL Invalid Interpretation Code X10 [address] Eosinophils/100 WBC Auto (Bld) 0.0 % Invalid Interpretation Code 0 - 11 % [address] Erythrocyte distribution width Ratio (RBC) 15.3 % High 11.5 - 14.5 % [address] Hematocrit Auto Volume Fraction (Bld) 41.2 % Low 42 - 52 % [address] Hemoglobin mass conc (Bld) 13.5 g/dL Low [address] Lymphocytes Manual cnt #/vol (Bld) 1.00 Invalid Interpretation Code X10 [address] Lymphocytes/100 WBC Auto (Bld) 7.1 % Low 20 - 55 % [address] MCH Auto Entitic mass (RBC) 32.6 pg Invalid Interpretation Code 26 - [address] MCHC Auto mass conc (RBC) 32.7 g/dL Invalid Interpretation Code [address] MCV Auto Entitic volume (RBC) 99.7 fL Invalid Interpretation Code [address] Monocytes Manual cnt #/vol (Bld) 1.2 Invalid Interpretation Code X10 [address] Monocytes/100 WBC Auto (Bld) 8.5 % Invalid Interpretation Code 0 - 10 % [address] Neutrophils Auto #/vol (Bld) 11.5 10*3/uL High [address] Neutrophils/100 WBC Auto (Bld) 84.1 % High 37 - 75 % [address] Platelet mean volume Auto Entitic volume (Bld) 7.2 fL Low [address] Platelets Auto #/vol (Bld) 241 10*3/uL Invalid Interpretation Code [address] RBC Auto #/vol (Bld) 4.13 10*6/uL Invalid Interpretation Code [address] WBC Auto #/vol (Bld) 13.7 10*3/uL High [place] [address] INFLUENZA A AND B, PCRon FLUBV Ag IA Ql (Unsp spec) Negative Invalid Interpretation Code NEGATIVE [address] Comment on above: TESTING PERFORMED BY [facility] Testing performed at [place] [address] INFLUENZA A Negative Invalid Interpretation Code NEGATIVE [address] LACTATE, BLOODon 01-06-2018 Lactate molar conc 1.2 mmol/L Invalid Interpretation Code [address] Comment on above: Testing performed at [place] [address] LITHIUM LEVELon 01-06-2018 Interpretation and review of laboratory results Abnormal Invalid Interpretation Code [address] [place] molar conc 0.40 mmol/L Low [address] Comment on above: Testing performed at [place] [id number] Otheron 01-06-2018 Interpretation and review of laboratory results Abnormal Invalid Interpretation Code [address] Interpretation and review of laboratory results Abnormal Invalid Interpretation Code [address] RESPIRATORY CULTUREon 2017 Bacteria identified Cx Nom (Unsp spec) USUAL OROPHARYNGEAL MARICRUZ Invalid Interpretation Code [address] Comment on above: MODERATE GROWTH Test ing performed at [place] [address] Microscopic observation Gram stain Nom (Unsp spec) MODERATE Invalid Interpretation Code [address] Comment on above: WBC'S SEEN FEW SQUAM OUS EPITHELIAL CELLS MODERATE MIXED GRAM POSITIVE MARICRUZ NONE APPEAR PREDOMINANT SPECIMEN IS OF LEAST ACCEPTABLE QUALITY REPORT STATUS 01/08/2018 Invalid Interpretation Code [address] Comment on above: FINAL SPECIMEN DESCRIPTION SPUTUM Invalid Interpretation Code [address] SCREEN: MRSA ONLY, NARES (IS OLATION SCREEN)on 01-06-2018 MRSA isol Org specific cx Ql (Nose) Negative Invalid Interpretation Code [address] STAPHYOCOCCUS AUREUS BY PCR Negative Invalid Interpretation Code [address] Comment on above: TESTING PERFORMED BY PCR Testing performed at [place] [address] SEDIMENTATION RATE, AUTOMATE Don 01-06-2018 ESR Velocity (Bld) 31 mm/h High [address] Comment on above: Testing performed at [place] [id number] TROPONINon 01-06-2018 Troponin I.cardiac mass conc ng/mL Invalid Interpretation Code 0 - 0.08 ng/mL [address] Comment on above: Testing performed at [place] [id number] TSHon 01-06-2018 Thyrotropin Qn 0.994 m[IU]/L Invalid Interpretation Code [address] Comment on above: Testing performed at [place] [id number] XR CHEST AP PORTABLEon 01-06 EXAM: XR [...] 68 mm[Hg] Liban Otero MD [facility] 05-27-2023 15:00-0400 Heart rate 75 /min Liban Otero MD [facility] 05-27-2023 15:00-0400 SaO2% (BldA) [Mass fraction] 96 % Liban Otero MD Work Phone: [facility] 05-27-2023 15:00-0400 Systolic blood pressure 124 mm[Hg] Liban Otero MD Work Phone: [facility] 05-27-2023 14:49-0400 Respiratory rate 18 /min Liban Otero MD Work Phone: [facility] 05-27-2023 14:17-0400 Body height 144.8 cm Liban Otero MD Work Phone: [facility] [employer] 05-27-2023 14:16-0400 Body temperature 98.6 [degF] Liban Otero MD Work Phone: [facility] [employer] 11-03-2022 10:00-0400 Body height 157.48 cm Martha Yi Other [employer] Other 11-03-2022 10:00-0400 Body mass index (BMI) [Ratio] 29.08 kg/m2 Martha Yi Other [employer] Other 11-03-2022 10:00-0400 Body weight 72.12 kg Martha Yi Other [employer] Other 12-02-2021 12:30-0400 Body height 157.48 cm Thiago Chandler Other [employer] Other 12-02-2021 12:30-0400 Body mass index (BMI) [Ratio] 29.08 kg/m2 Thiago Chandler Other [employer] Other 12-02-2021 12:30-0400 Body temperature 97.1 [degF] Thiago Chandler Other [employer] Other 12-02-2021 12:30-0400 Body weight 72.12 kg Thiago Chandler Other [employer] Other 12-02-2021 12:30-0400 Diastolic blood pressure 78 mm[Hg] Thiago Chandler Other [employer] Other 12-02-2021 12:30-0400 SaO2% (BldA) [Mass fraction] 100 % Thiago Ramesh Other [employer] Other 12-02-2021 12:30-0400 Systolic blood pressure 114 mm[Hg] Thiago Chandler Other [employer] Other 11-04-2021 11:00-0400 Body height 157.48 cm Martha Yi Other [employer] Other 11-04-2021 11:00-0400 Body mass index (BMI) [Ratio] 29.28 kg/m2 Martha Yi Other [employer] Other 11-04-2021 11:00-0400 Body weight 72.62 kg Martha Yi Other [employer] Other 08-05-2021 14:00-0400 Body height 144.78 cm Thiago Chandler Other [employer] Other 08-05-2021 14:00-0400 Body mass index (BMI) [Ratio] 32.46 kg/m2 Thiaog Ramesh Other [employer] Other 08-05-2021 14:00-0400 Body temperature 97 [degF] Thiago Ramesh Other [employer] Other 08-05-2021 14:00-0400 Body weight 68.04 kg Thiago Ramesh Other [employer] Other 08-05-2021 14:00-0400 Diastolic blood pressure 73 mm[Hg] Thiago Ramesh Other [employer] Other 08-05-2021 14:00-0400 SaO2% (BldA) [Mass fraction] 97 % Thiago Ramesh Other [employer] Other 08-05-2021 14:00-0400 Systolic blood pressure 110 mm[Hg] Thiago Ramesh Other [employer] Other 05-27-2021 09:30-0400 Body height 152.4 cm Franck Carballo MD Work Phone: [employer] 05-27-2021 09:30-0400 Body mass index (BMI) [Ratio] 30.47 kg/m2 Franck Carballo MD Work Phone: [facility] 05-27-2021 09:30-0400 Body weight 70.76 kg Franck Carballo MD Work Phone: [facility] 05-27-2021 09:30-0400 Diastolic blood pressure 69 mm[Hg] Franck Carballo MD Work Phone: [facility] 05-27-2021 09:30-0400 Heart rate 97 /min Franck Carballo MD Work Phone: [facility] 05-27-2021 09:30-0400 SaO2% (BldA) [Mass fraction] 91 % Franck Carballo MD Work Phone: [facility] 05-27-2021 09:30-0400 Systolic blood pressure 105 mm[Hg] Franck Carballo MD Work Phone: [facility] 03-01-2019 08:00-0500 Respiratory Rate 16 /min [facility] 03-01-2019 07:23-0500 BP Diastolic 69 mm[Hg] [facility] [facility] 03-01-2019 07:23-0500 BP Systolic 100 mm[Hg] [facility] 03-01-2019 07:23-0500 Pulse (Heart Rate) 91 /min [facility] 03-01-2019 07:23-0500 Pulse Oximetry 100 % [facility] 03-01-2019 06:00-0500 BMI (Body Mass Index) 44.56 kg/m2 [facility] 03-01-2019 06:00-0500 Body weight 93.4 kg [facility] Comment on above: standing weight 03-01-2019 04:01-0500 Body Temperature 98.8 [degF] [facility] 02-25-2019 14:40-0500 Respiratory rate 17 /min [facility] 02-25-2019 10:56-0500 Respiratory rate 0 /min [facility] 02-23-2019 21:56-0500 Respiratory rate 0 /min [facility] 02-23-2019 18:33-0500 BP Diastolic 78 mm[Hg] Iftikhar [facility] 02-23-2019 18:33-0500 BP Systolic 139 mm[Hg] Iftikhar Kemp [facility] 02-23-2019 18:33-0500 Pulse (Heart Rate) 78 /min Iftikhar Kemp [facility] 02-23-2019 18:33-0500 Pulse Oximetry 99 % Iftikhar Kemp [facility] 02-23-2019 18:33-0500 Respiratory Rate 16 /min Iftikhar Kemp [facility] 02-23-2019 13:38-0500 BMI (Body Mass Index) 43.28 kg/m2 Iftikhar Kemp [facility] 02-23-2019 13:38-0500 Body Temperature 97.39 [degF] Iftikhar Kemp [facility] 02-23-2019 13:38-0500 Body weight 90.72 kg Iftikhar Kemp [facility] 02-23-2019 13:38-0500 Height 144.8 cm Iftikhar Kemp [facility] 01-08-2018 11:54-0500 Body Temperature 98.01 [degF] [facility] Work Phone: 01-08-2018 11:54-0500 BP Diastolic 48 mm[Hg] [facility] Work Phone: 01-08-2018 11:54-0500 BP Systolic 115 mm[Hg] [facility] Work Phone: 01-08-2018 11:54-0500 Pulse (Heart Rate) 75 /min [facility] Work Phone: 01-08-2018 11:54-0500 Pulse Oximetry 97 % [facility] Work Phone: 01-08-2018 11:54-0500 Respiratory Rate 18 /min [facility] Work Phone: 01-08-2018 03:51-0500 BMI (Body Mass Index) 45.89 kg/m2 [facility] Work Phone: 01-08-2018 03:51-0500 Weight 96.2 kg [facility] Work Phone: 01-06-2018 16:24-0500 Height 144.8 cm [facility] Work Phone: Encounters Encounter Date Encounter Type Care Provider Facility Start: 09-21-2023 End: 09-21-2023 ambulatory DO Iftikhar Kemp Work Phone: [facility] Work Phone: Start: 09-21-2023 End: 09-21-2023 Patient encounter procedure DO Iftikhar Kemp Work Phone: [facility] Work Phone: Start: 09-21-2023 End: 09-21-2023 Patient encounter procedure DO Iftikhar Kemp Work Phone: [facility] Start: 09-21-2023 End: 09-21-2023 ambulatory DO Iftikhar Kemp Work Phone: [facility] Work Phone: Start: 09-07-2023 End: 09-07-2023 ambulatory [facility] Work Phone: Start: 09-07-2023 End: 09-07-2023 Patient encounter procedure [facility] Work Phone: Start: 07-04-2023 End: 07-05-2023 ambulatory IFTIKHAR KEMP Facility:[facility] Start: 07-04-2023 End: 07-04-2023 Patient encounter procedure IFTIKHAR KEMP [facility] Start: 05-27-2023 End: 05-27-2023 Emergency department patient visit IFTIKHAR KEMP [facility] Start: 05-27-2023 End: 05-27-2023 Emergency department patient visit Liban Otero MD Work Phone: [facility] Start: 05-10-2023 End: 05-11-2023 ambulatory IFTIKHAR KEMP Facility:[facility] Start: 05-10-2023 End: 05-10-2023 Lab Drop off IFTIKHAR KEMP [facility] Start: 05-03-2023 End: 05-03-2023 ambulatory [facility] Work Phone: Start: 05-03-2023 End: 05-03-2023 Patient encounter procedure [facility] Work Phone: Start: 11-30-2022 End: 11-30-2022 Patient encounter procedure DO Iftikhar Kemp Work Phone: [facility] C[facility]-Sleep Lab Work Phone: Start: 11-30-2022 End: 11-30-2022 ambulatory DO Iftikhar Kemp Work Phone: [facility] Work Phone: Start: 11-03-2022 End: 11-03-2022 ambulatory Martha Yi Other [facility] Other Start: 11-03-2022 Office outpatient vi sit 25 minutes Martha Yi [facility] Start: 05-25-2022 End: 05-25-2022 Patient encounter procedure IFTIKHAR KEMP [facility] Start: 05-17-2022 End: 05-18-[address] IFTIKHAR KEMP Facility: Start: 02-22-2022 Letter encounter [facility] Start: 01-11-2022 End: 01-11-2022 ambulatory DO Iftikhar Kemp Work Phone: [facility] Work Phone: Start: 01-11-2022 End: 01-11-2022 Patient encounter procedure DO Iftikhar Kemp Work Phone: [facility]Sleep [facility] Start: 12-02-2021 Office outpatient vi sit 25 minutes Thiago [facility] Start: 12-02-2021 End: 12-02-2021 ambulatory DO Iftikhar Kemp Work Phone: [facility] Other Start: 12-02-2021 End: 12-02-2021 Patient encounter procedure DO Iftikhar Kemp Work Phone: [facility] Start: 11-04-2021 End: 11-04-2021 ambulatory Martha Yi Other [facility] Other Start: 11-04-2021 Office outpatient vi sit 25 minutes Martha Yi [facility] Start: 10-13-2021 End: 10-13-2021 Patient encounter procedure DO Iftikhar Kemp Work Phone: [facility] Start: 09-22-2021 ambulatory UNKNOWN PROVIDER Facili ty:[facility] Start: 09-22-2021 End: 09-22-2021 Patient encounter procedure Renetta Bautista DDS Work Phone: [facility] Start: 08-05-2021 End: 08-05-2021 ambulatory Thiago Chandler Other [facility] Other Start: 08-05-2021 Office outpatient vi sit 25 minutes Thiago [facility] Start: 08-05-2021 End: 08-05-2021 Patient encounter procedure DO Iftikhar Kemp Work Phone: [facility]Sleep [facility] Start: 07-14-2021 End: 07-15-[address] DOCTOR RUSSELL Facility: Start: 06-08-2021 End: 06-09-2021 ambulatory UNKNOWN PROVIDER Facility:[facility] Start: 06-08-2021 End: 06-09-2021 Patient encounter procedure Vivi Clemons [facility] Work Phone: [facility] Start: 06-03-2021 End: 06-03-2021 ambulatory FRANCK [facility] Start: 06-01-2021 End: 06-02-[address] IFTIKHAR KEMP Facility:[facility] Start: 05-27-2021 End: 05-27-2021 ambulatory FRANCK CARBALLO [facility] Start: 05-27-2021 End: 05-27-2021 Office outpatient new 30 minutes Franck Carballo MD Work Phone: [facility] Comment on above: Esophageal dysphagia (Primary Dx); Food bolus obstruction of intestine (HCC) Start: 05-03-2021 End: 05-06-2021 Evaluation and management of inpatient ZULAY SVITLANA [facility] Start: 05-02-2021 End: 05-03-2021 Emergency department patient visit [facility] Start: 07-08-2020 End: 07-09-2020 ambulatory [facility] Start: 07-08-2020 End: 07-08-2020 Subsequent hospital visit by physician Iftikhar Kemp DO Work Phone: [facility] Comment on above: Arrived Start: 04-02-2020 End: 04-02-2020 Orders Only Melissa Summer Presley Work Phone: [facility] Start: 02-23-2019 End: 03-01-2019 Evaluation and management of inpatient Generic [facility] Work Phone: [facility] Comment on above: Acute metabolic ence phalopathy (Primary Dx) Start: 02-23-2019 End: 02-23-2019 Emergency department patient visit [facility] Start: 01-06-2018 End: 01-08-2018 [...] Phone: Start: 05-27-2023 Creatinine blood 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 Work 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: Start: 07-08-2020 Radiologic exam swal [...] of arteri al blood gas studies Generic [facility] Work Phone: Start: 02-25-2019 OBTAIN ARTERIAL BLOO D GASES AND PERFORM Stuart Mcgrath Work Phone: Start: 02-25-2019 Videofluoroscopy swallow Stuart Mcgrath Work Phone: Start: 02-25-2019 Contrast echocardiography Holden Whiteside Work Phone: Start: 02-25-2019 [place] [Moles/volum e] in Serum or Plasma Stuart Mcgrath Work Phone: Start: 02-24-2019 Influenza virus A AN D B antigen assay Stuart Mcgrath Work Phone: Start: 02-24-2019 Evaluation of arteri al blood gas studies Generic [facility] Work Phone: Start: 02-24-2019 OBTAIN [...] of arteri al blood gas studies Generic [facility] Work Phone: Start: 02-23-2019 Blood count hematocrit [facility] Start: 02-23-2019 [...] End: 01-08-2018 Assay of magnesium [facility] Work Phone: Start: 01-08-2018 End: 01-08-2018 CBC, EDIF, PLATELET [facility] Work Phone: Start: 01-08-2018 End: 01-08-2018 Renal function panel [facility] Work Phone: Start: 01-07-2018 End: 01-07-2018 CT of chest Bonnie J [facility] Work Phone: Start: 01-07-2018 End: 01-07-2018 Assay of magnesium Bonnie J [facility] Phone: Start: 01-07-2018 End: 01-07-2018 CBC, EDIF, PLATELET [facility]nie [facility] Phone: Start: 01-07-2018 End: 01-07-2018 Renal function panel [facility] Work Phone: Start: 01-07-2018 End: 01-07-2018 Iaad ia mult step method nos each organism [facility] Phone: Start: 01-06-2018 End: 01-06-2018 Cul bact xcpt urine blood/stool aerobic isol Bonnie J [facility] Phone: Start: 01-06-2018 End: 01-06-2018 C-reactive protein Bonnie [employer] Phone: Start: 01-06-2018 End: 01-06-2018 Sedimentation rate rbc non-automated Bonnie [employer] Phone: Start: 01-06-2018 End: 01-06-2018 Cultyp nuc [...] 2) Shingles (RZV) Vaccine (1 of 2) [facility] Start: 10-04-2028 Tetanus vaccination [facility] Start: 10-15-2023 Influenza vaccination INFLUENZA VACCINE (Season Ended) [facility] Start: 09-21-2023 Plain X-ray of right wrist XR wrist RT 2V [facility] Start: 09-21-2023 XR Wrist - right 2 Views [facility] Start: 10-14-2022 COVID-19 VACCINE ( season) COVID-19 VACCINE ( season) [facility] Start: 11-13-2021 Influenza vaccination [facility] Start: 06-03-2021 End: 06-03-2021 Admission to same day surgery center 06/03/2021 Surgery Franck Carballo MD [address] [address] ESOPHAGOGASTRODUODENOSCOPY [facility] Comment on above: ESOPHAGOGASTRODUODENOSCOPY Start: 06-03-2021 End: 06-03-2021 Esophagogastroduodenoscopy ESOPHAGOGASTRODUODENOSCOPY Esophageal dysphagia Food bolus obstruction of intestine (HCC) 06/03/2021 8:10 AM EDT [facility] Start: 06-03-2021 Subsequent hospital visit by physician 06/03/2021 Hospital Encounter Franck Carballo MD [address] [address] [facility] Start: 10-14-2020 Influenza vaccination Sequential Influenza Vaccine (Season Ended) [facility] Start: 08-14-2020 COVID-19 Vaccine (3 - Booster for Pfizer series) COVID-19 Vaccine (3 - Booster for Pfizer series) [facility] Start: 05-12-2020 COVID-19 Vaccine (3 - Booster for Pfizer series) COVID-19 Vaccine (3 - Booster for Pfizer series) [facility] Start: 10-15-2019 Influenza vaccination given Sequential Influenza Vacci ne (#1) [facility] Start: 01-06-2019 Thyroid stimulating hormone measurement TSH [facility] Start: 01-06-2019 Thyrotropin Qn TSH [facility] Work Phone: Start: 10-14-2018 Influenza vaccination given SEQUENTIAL INFLUENZA VACCI NE (#1) [facility] Start: 10-14-2017 Influenza vaccination INFLUENZA VACCINE (#1) [facility] Work Phone: Start: 07-13-2015 Tetanus vaccination TETANUS [facility] Start: 08-22-2011 Hepatitis B vaccination HEP B VACCINE (1 of 3 - 19+ 3-dose series) [facility] Start: 08-22-2011 Third diphtheria, tetanus and acellular pertussis (DTaP) vaccination TDAP (ADULT) [facility] Work Phone: Start: 2010 Hepatitis C antibody, confirmatory test Hepatitis C Screening [facility] Start: 2010 Hepatitis C screening [facility] Start: 2010 Tetanus + diphtheria + acellular pertussis vaccine (product) Tdap [facility] Start: 2010 Tetanus vaccination TETANUS [facility] Work Phone: Start: 08-22-2007 HIV screening [facility] Start: 2005 HIV screening HIV SCREENING DISCUSSION [facility] Work Phone: Start: 2004 Adolescent depression screening assessment Depression Screening (PHQ9) [facility] Start: 2004 COVID-19 Vaccine (1) COVID-19 Vaccine (1) [facility] Start: 2004 Depression screening using PHQ-9 (Patient Health Questionnaire 9) score [facility] Start: 08-22-1995 History and physical examination, annual for health maintenance Wellness Visit [facility] Start: 1992 Hepatitis C screening HEPATITIS C VIRUS SCREENING [facility] Start: 1992 Tetanus vaccination TETANUS EVERY 10 YR [facility] Bacteria identified Cx Nom (Bld) [facility] Work Phone: End: 02-23-2019 Bacteria identified Cx Nom (Bld) Blood Culture Aerobic/Anaerobic Microbiology Routine Once for 1 Occurrences starting 02/23/2019 until 02/23/2019 [facility] Comment on above: Once for 1 Occurrences starting 02/23/19 20 until 02/23/2019 CBC, EDIF, PLATELET CBC, EDIF, P LATELET Routine Every morning Lab until discontinued starting 01/07/2018, 2 completed [facility] Work Phone: Comment on above: Every morning Lab until discontinued sta rting 01/07/2018, 2 completed MAGNESIUM MAGNESIUM Routin e Every morning Lab until discontinued starting 01/07/2018, 2 completed [facility] Work Phone: Comment on above: Every morning Lab until discontinued sta rting 01/07/2018, 2 completed RENAL FUNCTION PANEL RENAL FUNCT ION PANEL Routine Every morning Lab until discontinued starting 01/07/2018, 2 completed [facility] Work Phone: Comment on above: Every morning Lab until discontinued sta rting 01/07/2018, 2 completed Standard ECG ECG STAT 11/24/2 018 12:02 PM EST [facility] Work Phone: Immunizations Immunization Date Immunization Notes Care Provider Vimal angulo 03-17-2020 COVID-19 Vaccine Pfizer - Documentation Purposes Only Thiago Ramesh Other [facility] 02-25-2020 COVID-19 Vaccine Pfizer - Documentation Purposes Only Thiago Chandler Other [facility] 11-20-2019 influenza, injectabl e, quadrivalent, preservative free Vivi Deonte RDH Work Phone: [facility] 11-20-2019 influenza virus vaccine, unspecified formulation Renetta Lliy DDS Work Phone: [facility] 11-22-2017 influenza, injectabl e, quadrivalent, preservative free Vivi Deonte RDH Work Phone: [facility] 12-07-2016 influenza, injectabl e, quadrivalent, contains preservative Vivi Deonte RDH Work Phone: [facility] 11-18-2015 influenza, seasonal, injectable Vivi Deonte RDH Work Phone: [facility] 12-04-2014 influenza, injectabl e, quadrivalent, preservative free Vivi Deonte RDH Work Phone: [facility] 12-19-2013 influenza, injectabl e, quadrivalent, preservative free Vivi Deonte RDH Work Phone: [facility] 12-12-2012 influenza, seasonal, injectable Vivi Deonte RDH Work Phone: [facility] 12-07-2011 influenza, seasonal, injectable Vivi Deonte RDH Work Phone: [facility] 10-27-2010 influenza virus vaccine, whole virus Vivi Deonte RDH Work Phone: [facility] 12-31-2008 novel [id number], preservative-free, injectable Vivi Franciscorillo RD Work Phone: [facility] 07-12-2005 TD(adult) unspecifie d formulation Vivi Franciscorillo RD Work Phone: [facility] Payers Date Payer Category Payer Self-pay [id number] 2019 [place] xxxxxxxxxxxx 2019-Present [id number] 2019 Medicaid [place] [id number] 2019-Present [id number] 2017 Medicaid [id number] 1992 Unknown [id number]. 1992 Unknown [id number] 1992 Unknown [id number]. 1992 Unknown [id number] 1992 Unknown [id number] [id number]. 1992 Unknown [id number] [id number]. 1992 Unknown [id number] [id number] 1992 Unknown [id number] 1992 Unknown [id number] 1992 Unknown [id number] [id number] 1992 Unknown [id number] 1992 Unknown [id number] [id number] 1992 Unknown [id number] 1959 Medicaid [id number] Unknown [id number] Unknown [id number] Social History Date Type Detail Facility Start: 01-06-2018 End: 02-22-2019 Tobacco smoking status NHIS Never smoker [facility] Work Phone: Start: 1990 Sex Assigned At Not on file O [facility] Work Phone: Start: 02-23-2019 End: 05-27-2021 Alcohol intake Lifetime non-drinker (finding) [facility] Start: 02-23-2019 End: 02-28-2019 History SDOH Alcohol Frequency 1 [facility] Start: 01-06-2018 End: 02-28-2019 Tobacco use and exposure Never used [facility] Start: 05-17-2021 End: 05-27-2021 Exposure to SARS-CoV-2 (event) Not sure [facility] Tobacco smoking stat us [facility] Tobacco [facility] Start: 01-09-2019 Sex Assigned At F [facility] Start: 1990 Sex Assigned At Male F [facility] Tobacco smoking status No Smokin g Status Entered [facility] Start: 05-27-2023 Alcoholic beverage intake Current non-drinker of alcohol (finding) [facility] Start: 01-09-2019 History of Social function [facility] Start: 01-06-2018 Gender identity Identifies as male gender (finding) [facility] Clinical Notes 07-08-2020 to 05-27-2023 Neda [...] Iv removed and tolerated well. [facility] 05-27-2023 Emergency department Note Discharge instructions were provided to the patient and mother. Aware to follow up as needed. Soft/liquid diet cor 24 hours explained. No questions. Iv removed and tolerated well. Attending note: I have personally performed a [id number] and diagnostic assessment. I have discussed the [...] Portions of this chart were created using Hotchalk electronic dictation. Please excuse any typographical or grammatical errors contained herein. Liban Otero MD 05/27/23 1544 Liban Otero MD 05/27/23 1547 Called intio the patients room. Patient had large 1 inch piece of hotdog in the emesis bucket. Patient is smiling and stating I did it, I feel so much better . Envelope Folding Machine Adjuster and were made aware and the projector booth operator is now at bedside. No distress. Vss. stated to wait 10 minutes and take him in oral challenge. Xray at bedside. Envelope Folding Machine Adjuster at bedside. Patient and mother stating they were at [facility] and he was eating a hot dog. [...] with mother at bedside. Emergency Department Report [facility] Service Date:.05/27/23 PCP: Iftikhar Kemp Chief Complaint: Chief Complaint Patient presents with Choking Mother and patient was choking on a hotdog at [facility]. Vss. HPI Fahad Bernabe is a 32 [...] Partner Violence: Unknown (04/06/2023) Received from [facility] Fear of Current [...] with above information. . . Sandeep Jones, [facility] 05/27/23 1545 Associated attestation - Liban Otero MD - 05/27/2023 8:13 PM EDT Attending note: I have consulted with the mid-level provider and agree with the assessment and plan. The patient was seen independently by the mid-level and I did not personally examine the patient. documented in this encounter [facility] 05-27-2023 Hospital Discharge instructions Liban Otero MD - 05/27/2023 3:46 PM EDT Stay with soft foods soups broth and Jell-O the next 24 hours then advance as directed avoid solid food at this time due to inflammation The following attachments cannot be sent through Care Everywhere.Foreign Body in Throat or Esophagus ([place])documented in this encounter [facility] 05-27-2023 Physician Emergency department Note Attending note: I have personally performed a [id number] and diagnostic assessment. I have discussed the [...] and for further detail, please see the [facility] note. VITAL SIGNS DURING ED VISIT: [...] Portions of this chart were created using Hotchalk electronic dictation. Please excuse any typographical or grammatical errors contained herein. Liban Otero MD 05/27/23 1544 Liban Otero MD 05/27/[address] [facility] 05-27-2023 Emergency department Note Called intio the patients room. Patient had large 1 inch piece of hotdog in the emesis bucket. Patient is smiling and stating I did it, I feel so much better . Envelope Folding Machine Adjuster and dr were made aware and the projector booth operator is now at bedside. No distress. Vss. Dr stated to wait 10 minutes and take him in oral challenge. [facility] 05-27-2023 Emergency department Note Xray at bedside. Envelope Folding Machine Adjuster at bedside. [facility] 05-27-2023 Emergency department Note Patient and mother stating they were at [facility] and he was eating a hot dog. [...] bed with mother at bedside. [facility] 05-27-2023 Physician Emergency department Note Emergency Department Report [facility] Service Date:.05/27/23 PCP: Iftikhar Kemp Chief Complaint: Chief Complaint Patient presents with Choking Mother and patient was choking on a hotdog at [facility]. Vss. HPI Fahad Bernabe is a 32 [...] Partner Violence: Unknown (04/06/2023) Received from [facility] Fear of Current [...] information. . . Sandeep Jones, EDWIGE 05/27/23 [id number] Associated attestation - Liban Otero MD - 05/27/2023 8:13 PM EDT Attending note: I have consulted with the mid-level provider and agree with the assessment and plan. The patient was seen independently by the mid-level and I did not personally examine the patient. [facility] [employer] Work Phone: 05-10-2023 Evaluation + Plan note Diagnostic Tests PendingLithium Level 05/10/23T3 Free 05/10/23 [facility] 11-03-2022 Evaluation note Encounter Date Diagnosis Assessment Notes Oct, Pulmonary hypertension (ICD-10 - I27.20) Oct, Sleep apnea in adult (ICD-10 - G47.33) Oct, Pickwickian syndrome (ICD-10 - E66.2) Oct, Pneumonia (ICD-10 - J18.9) Continue with aspiration prevention measures as you are PHARMAJET Other 09-21-2023 History general Narrative - Reported* Type Description Date Medical History sleep apnea....Auto CPAP 8-12 wi th O2 at 3 liters Medical History Hypothyroidism Medical History cleft palate Medical History pulmonary HTN Medical History ADHD Medical History Seizure Disorder Surgical History Heart 2 holes upper and lower a t Surgical History tubes in ears Hospitalization History pneumonia [facility] 09/2018 Hospitalization History Sepsis [facility] 09/2018 Hospitalization History [facility] pneumonia 12/2018 Hospitalization History [facility] P[facility]umin[facility] 02/2019 PHARMAJET Other 10-20-2022 Evaluation note* Encounter Date Diagnosis [...] responded to diuretics and to oxygen therapy PHARMAJET Other 09-22-2022 Evaluation note* Encounter Date Diagnosis Assessment Notes Treatment Notes Treatment Clinical Notes Oct, Pulmonary hypertension (ICD-10 - I27.20) Oct, Sleep apnea in adult (ICD-10 - G47.33) Continue to follow Dr. Chandler recommendations. [facility] master fire control technician stated results of most recent sleep study completed 10/13/2021 will be discussed at patient's next sleep lab visit in November 2021. Oct, Pickwickian syndrome (ICD-10 - E66.2) Oct, Pneumonia (ICD-10 - J18.9) PHARMAJET Other 08-10-2022 History of Present illness Narrative* Michelle Singh DDS - 09/22/2021 10:00 AM EDT ----- Wednesday, September 22, 2021 at 11:33:21 AM ----- ----- Provider: [id number] Juan Pablo Singh, Resident -- Clinic: [facility] ----- COMPOSITE [facility]IAN[facility] Patient is scheduled for [facility] on tooth #22-MDF, 23-MDF, 24-MDF, 25-MDF, 26-MDF and 27 surface MDF. Reviewed Medical History. Pt exhibited the following conditions: Mental Disorders Patient is ready for treatment. Topical Benzocaine gel applied at the injection site for 2 minutes. Administered 1 carpules of Lidocaine, 2% with Epinephrine 1:100,000,. Decay/existing confucianist removed, cavity prepared. Selectively etched enamel with 37% phosphoric acid, rinsed, and blot dried. OptiBond davidson applied and light-cured. Condensed packable composite shade in light cured increments using Mylar strip and wedge. Finished with finishing burs, checked occlusion, verified proximal contacts and confucianist was polished. Rinsed and suctioned intraorally, advised [...] 2021 at 11:49:29 AM ----- ----- Provider: [id number] Juan Pablo Zapata DDS -- Clinic: [facility] ----- documented in this [id number] Evaluation note* Encounter Date Diagnosis Assessment Notes [...] responded to diuretics and to oxygen therapy PHARMAJET Other 06-23-2022 History general Narrative - Reported* Type Description Date Medical History sleep apnea....Auto CPAP 8-12 O2 at 3 liters Medical History Hypothyroidism Medical History cleft palate Medical History pulmonary HTN Medical History ADHD Medical History Seizure Disorder Surgical History Heart 2 holes upper and lower a t Surgical History tubes in ears Hospitalization History pneumonia [facility] 09/2018 Hospitalization History Sepsis [facility] 09/2018 Hospitalization History [facility] pneumonia 12/2018 Hospitalization History [facility] Pneuminia 02/2019 PHARMAJET Other 04-26-2022 History of Present illness Narrative* Vivi Clemons, [facility] - 06/08/2021 10:54 AM EDT RM, Pt [...] on 6 month recall. Examination completed by /PROFESSOR OF ENVIRONMENTAL SCIENCE [facility] [place]: mian ----- Signed on Tuesday, June 08, 2021 at 2:17:56 PM ----- ----- Provider: Emeterio Zapata DDS -- Clinic: [facility] ----- documented in this [id number] NoteEXAMINATION: XR CHEST 2 V HISTORY: COVID-19 [...] Electronically authenticated by: ZULAY LYLE Date: 2021-06-01 11:36[facility]04-14-2022 History of Present illness Narrative* Franck Carballo [...] covid, recent covid positive documented in this [id number] Procedure note* Lazaro Figueredo SLP - 07/08/2020 8:30 AM EDT Procedure(s): EMERGENCY CARE TECH MODIFIED BARIUM SWALLOW Pre-Procedure Diagnose(s): Dysphagia, oropharyngeal Post-Procedure Diagnose(s): Dysphagia, oropharyngeal [facility] Speech Language Pathology Modified Barium Swallow Study [...] 8 Point Penetration-Aspiration Scale Honey: Not Tested Neche: Not Tested Thin: 2 - Material enters [...] note No data available for this section [facility] Diagnosis Dyspepsia Dyspepsia and other [...] [facility] Work Phone: Evaluation note* Diagnosis Onset Date Resolution Status Pulmonary hypertension acute [facility] Work Phone: Evaluation note* Diagnosis Foreign body in esophagus, initial encounter- Primary Development delay Unspecified delay in development [facility] Diagnosis Onset Date Resolution Status Distal radius fracture acute Distal radius fracture acute [facility] Work Phone: History general Narrative - Reported* Type Description Date Medical History sleep apnea....Auto CPAP 8-12 oh th O2 at 3 liters Medical History Hypothyroidism Medical History cleft palate Medical History pulmonary HTN Medical History ADHD Medical History Seizure Disorder Surgical History Heart 2 holes upper and lower a t Surgical History tubes in ears Hospitalization History pneumonia [facility] 09/2018 Hospitalization History Sepsis [facility] 09/2018 Hospitalization History [facility] pneumonia 12/2018 Hospitalization History [facility] Mans[facility] eld Pneuminia 02/2019 [facility]ARMAJET Other Hospital Discharge instructions No data available for this section [facility] No data available for this section [facility] Reason for Referral Status Reason Specialty Diagnoses / Procedures Referre d By Contact Referred To Contact Bonnie Shankar, RUSSIAN RUBBER-SUPERVISOR [employer] [address] [place] [address] Status Reason Specialty Diagnoses / Procedures Re ferred By Contact Referred To Contact New Request Procedures INPATIENT ADMISSION NOTIFICATION Joaquin Garcia MD [address] [place] [id number] Status Reason Specialty Diagnoses / Procedures Referre d By Contact Referred To Contact Closed Procedures ECG Naida Masters, PAJuan PabloC [address] [place] [address] Status Reason Specialty Diagnoses / Procedures Referred By Contact Referred To Contact Authorized Patient Preference Rehabilitation Diagnoses Acute metabolic encephalopathy Idalia Sims MD [address] [place] [address] Status Reason Specialty Diagnoses / Procedures Referre d By Contact Referred To Contact Closed Radiology Diagnoses Dyspepsia Acute respiratory failure, unspecified whether with hypoxia or hypercapnia (HCC) Procedures XR Modifed Barium Swallow Iftikhar Kemp, DO [address] [place] [address] Discharge Instructions * Discharge Instr - Diet - Brenna Fall RN - 01/08/2018 2:59 PM EST Resume pre-hospital diet As tolerated. * Discharge Instr - Activity - Brenna Fall RN - 01/08/2018 2:58 PM EST Resume pre-hospital activity as tolerated. The following attachments cannot be sent through Care Everywhere. * Benzonatate capsules ([place]) * Prednisone tablets ([place]) * Levofloxacin tablets ([place]) * Adult, Pneumonia ([place]) in this encounter* Discharge Instr- IP EMERGENCY CARE TECH* Idalia Sims MD - 03/01/2019 10:22 AM EST No straws, please follow aspriartion precautions * Discharge Instr - Care Coordination* Ivory Bhatia LISW - 02/25/2019 12:39 PM EST [facility] - [phone] FAX [phone] Mother Edison to transport patient - [phone]. * Attachments The following attachments cannot be sent through Care Everywhere. * Aspiration Pneumonia ([place]) documented in this encounter History of Present [...] Status) full weight bearing Home Setting Residence (custodial; mother assists with pt Hx) Lives With other (see comments) (custodial; was home visiting mom when got ill) First floor bed/bathroom yes (all 1 level at custodial) Number of Stairs to Enter Home (0 at custodial; has a couple at mom's house) Number [...] Supine to Sit, Rehab Eval Level of [place]: Supine/Sit other (see comments) (pt found up in chair; assistx1 c TRANSCRIPTION MANAGER this AM, per mother) Transfer Skill: Sit To Stand, Rehab Eval [place] (Sit-Stand Transfers) contact guard Physical Assist/Nonphysical Assist: Sit/Stand set-up required;verbal cues;1 person assist (line managment needed) Weight-Bearing Restrictions: Sit/Stand full weight-bearing Assistive Device For Transfer: Sit/Stand (CGAx1 with gait belt only) Gait Skills, PT Eval Level of [place]: Gait contact guard Physical Assist/Nonphysical Assist: Gait [...] to medical status) Stair Negotiation Level of [place]: Stair Negotiation (held steps due to pt does not have at custodial) Balance Additional Documentation (sitting = WNL; standing = good-) Sensory Examination Sensory Examination WFL General Interventions Planned Therapy Interventions balance training;bed mobility training;endurance;gait training;neuromuscular re- education;strengthening;transfer training;postural re-education [facility] Basic Mobility Inpatient Short Form Turning over in bed 4 - No Assistance Sitting/standing from chair 4 - No Assistance Moving from lying on back to sitting 4 - No Assistance Moving to and from bed to chair 4 - No Assistance Walk in hospital room 4 - No Assistance Climbing 3-5 steps with a railing 3 - A Little Assistance [facility] Mobility Raw Score 23 [facility] Mobility Functional Limitation/Modifier 11.20% Prior Functional Impairment in Basic Mobility - CI [facility]RENT [facility] Basic Mobility Inpatient Short Form Turning over [...] 2 - A Lot of Assistance [facility] Mobility Raw Score 18 [facility]RENT [facility] Mobility Functional Limitation/Modifier 46.58% Currently Impaired in Basic Mobility - CK Projected [facility] Mobility Raw Score 23 Projected [facility] Mobility Functional Limitation/Modifier 11.20% Projected Functional Impairment in Basic Mobility - CI Assessment Assessment Narrative Pt presents with limited activity tolerance and mild shortness of breath with mobility today related to medical status, and would benefit from skilled PT services during acute care stay to improve mobility tolerance and overall safety with all mobility. Discharge Recommendations pt to return to custodial with HEP Clinical Impression Criteria for Skilled [...] comments) (at this time, anticipating return to custodial with HEP) Plan Plan Narrative pt to be seen 1-2x/day during acute care stay Therapist Information License # [id number] Patient status at end of treatment/response to [...] treatment of this patient is transferred to [facility] Inpatient Physical Therapist following this evaluation. Dixie Alexander, PT, DPT #[id number] Time in: 836 AM Time out: 900 AM Billable time: 24 min Charges: Eval (low complexity) 1@24min Current anticipated discharge recommendation: anticipate pt to return to custodial with HEP Patient demonstrates functional limitation in [...] today back to [facility]. Called the facility and spoke with Emilia. She said they [facility]. Faxed the referral and day of discharge bundle to the facility. Please call report to [phone]. Information faxed to [phone]. Patient's mother plans to transport the patient. Case closed at discharge. [facility] Disposition D/C Disposition: Another Health Care Institution Not Defined([facility] care facility.) Agency/Destination: ([facility]) Transportation Type: Auto(Mother, Edison to transport [phone]) Reason for Choice: Currently with agency Anticipated Discharge Plan Anticipated HME: Undetermined * Damaris Yang LISW - 02/28/2019 3:30 PM EST DISCHARGE PLAN PROGRESS NOTE Date: 02/28/2019 Time: 3:31 PM Patient Name: Fahad Bernabe Date of : 1990 Sex: Male Returned a call to [facility] [phone]. Discussed that the plan was to discharge thepatient back to their facility tomorrow. [facility] Disposition D/C Disposition: Another Health Care Institution Not Defined([facility] care facility.) Agency/Destination: ([facility]) Transportation Type: Auto(Mother, Edison to transport [phone]) Reason for Choice: Currently with agency Anticipated Discharge Plan Anticipated HME: Undetermined * Idalia Sims MD - 02/28/2019 1:32 PM EST [facility] Medicine Inpatient Follow-up 02/28/2019 Idalia Sims MD [facility] Patient: Fahad Bernabe Date of : 1990 [...] Sims MD - 02/27/2019 3:54 PM EST [facility] Medicine Inpatient Follow-up 02/27/2019 Idalia Sims MD [facility] Patient: Fahad Bernabe Date of : 1990 [...] IMAGING: Reviewed 3:57 PM * Patricia Lema, EMERGENCY CARE TECH - 02/27/2019 8:50 AM EST Speech Pathology [...] Family/caregiver support Explain Environmental Factors: lives in custodial in [place], mother very supportive - pt stays with [...] Assess for diet tolerance, Re-evaluate diet changes EMERGENCY CARE TECH Caregiver Readiness Working toward discharge home: Yes EMERGENCY CARE TECH Caregiver Training: Ongoing - Follow up required [...] to speech therapy recommendations this social work instructor contacted Kayleigh at [place]. Carmela reports that she spoke with Lina at [facility] in speech therapy about patient needs.Carmela states that a speech therapist visits [place] weekly and that she is aware that patient would need to be seen. Patient's step father was informed of need for speech therapy as patient's mother (reported guardian) is not available at this time. Patient's mother is home resting and taking a shower, per step father. Patient Information Primary Caregiver: Other (Comment)([facility] - [phone]) Discharge Planning Living Arrangements: Facility Support Systems: Parent, relocation manager/social work instructor, Other (Comment)(Mother Edison reports that she is guardian.) Assistance Needed: stand by Type of Residence: [facility] Care Facility Name: ([facility] Prior to Admission Home Care Services: No Patient expects to be discharged to:: [facility]. Mother Edison to transport. Does the patient need discharge transport arranged?: No Current Home Equipment: None, Oxygen Anticipated HME: Undetermined Anticipated Discharge Plan Anticipated HME: Undetermined [facility] Disposition D/C Disposition: Another Health Care Institution Not Defined([facility] care facility.) Agency/Destination: ([facility]) Transportation Type: Auto(Mother, Edison to transport [phone]) Reason for Choice: Currently with agency * Idalia Sims MD - 02/26/2019 2:01 PM EST [facility] Medicine Inpatient Follow-up 02/26/2019 Idalia Sims MD [facility] Patient: Fahad Bernabe Date of : 1990 [...] IMAGING: Reviewed 2:01 PM * Eda Arriaga, EMERGENCY CARE TECH - 02/26/2019 10:59 AM EST Speech Pathology [...] Family/caregiver support Explain Environmental Factors: lives in custodial in [place], mother very supportive - pt stays with mother every other weekend Personal Factors: Awareness of own capacity and performance Explain Personal Factors: developmental delays and cognitive deficits, impulsivity Skilled Therapy Needs: dysphagia intervention for pt/caregiver training Recommendations: Provale Cup for volume control, small utensils for bolus portion mgmt EMERGENCY CARE TECH Caregiver Readiness Working toward discharge home: Yes EMERGENCY CARE TECH Caregiver Training: Ongoing - Follow up required [...] and optimize control).Stated I put you in retirement . With emotional support, pt behaviors did [...] flow sheets, Bedside Study Evaluation flow sheets, [facility] Navigator, as well as patient Plan of Care and Education documentation. This note stands as the current Discharge Summary upon patient discharge from the hospital or completion of Speech Pathology Plan of Care * Stuart Mcgrath MD - 02/25/2019 1:00 PM EST [facility] Inpatient Follow-up 02/25/2019 Stuart Mcgrath MD [facility] Patient: Fahad Bernabe Date of : 1990 [...] Follow-up 02/24/2019 Stuart Mcgrath MD [facility] Patient: Fahad Bernabe Date of : 1990 [...] FoundDocuments on File Type Date Recorded Patient Promotional Marketing Agent Expl anation Advance Directives and Livin g Will 02/23/2019 3:14 PM Guardianship Papers 02/23/2019 3:14 PM Latest Code Status on File Code Status Date Activated Date Inactivated Comments Full Code - Unverified 02/23/2019 9:21 PM Documents on File Type Date Recorded Patient Promotional Marketing Agent Expl anation Advance Directives and Livin g Will 02/23/2019 11:06 PM Guardianship Papers 02/23/2019 3:14 PM Latest Code Status on File Code Status Date Activated Date Inactivated Comments Full Code - Unverified 02/23/2019 9:21 PM Documents on File Type Date Recorded Patient Promotional Marketing Agent Expl anation Advance Directives and Livin g Will 02/23/2019 11:06 PM Guardianship Papers 02/23/2019 3:14 PM Documents on File Type Date Recorded Patient Promotional Marketing Agent Expl anation Advance Directives and Livin g Will 07/08/2020 11:06 PM Guardianship Papers 02/23/2019 3:14 PM Guardianship Papers 07/08/2020 12:00 AM Documents on File Type Date Recorded Patient Promotional Marketing Agent Expl anation Advance Directives and Livin g [...] HOSPITALIST DISCHARGE SUMMARY Patient: Fahad Bernabe Account: [id number] Admitted: 02/23/2019 Discharge Date/Time: 03/01/2019 Clinical Summary [...] for which he is nonadherent. Transferred to [place] for aspiration pneumonia and acute on chronic [...] next recommendation would be for tracheostomy per federal aid coordinator Obstructive Sleep Apnea - pt underwent sleep [...] with tracheostomy -Patient to follow-up with his federal aid coordinator as an outpatient Acute on Chronic Respiratory [...] Family: Iftikhar Kemp DO, Phone: None, Address: [address] [place] [phone] Follow Up: Iftikhar Kemp DO [address] [facility] [id number] Follow up in 1 week(s) Patient instructions, [...] XR Modifed Barium Swallow Iftikhar Kemp [place] [address] Reason Comments Consult EGD Reason Comments Choking Mother and patient w as choking on a hotdog at [facility]. Vss. Vicki Coleman RN - 02/23/2019 1:36 PM EST ED Notes (unrecognized secti on and content) Per parent report pt was seen yesterday at another ED yesterday and dx with pneumonia and dc with antibiotics. Pt started having trouble staying awake today. documented in this encounter Holden Whiteside MD - 02/23/2019 9:22 PM EST H&P Notes (unrecognized sect ion and content) [facility] Medicine Inpatient H&P 02/23/2019 Holden Whiteside MD [facility] Patient: Fahad Bernabe Date of : 1990 [...] for the last year was seen at [facility] emergency department due to cough and for unresponsiveness. Patient was diagnosed yesterday at [facility] emergency department with a pneumonia and [...] for the last year was seen at [facility] emergency department due to cough and for unresponsiveness. Patient was diagnosed yesterday at [facility] emergency department with a pneumonia and was started on antibiotics. Patient is a resident of a [facility] in [place]. His mother went to pick him up [...] PM documented in this encounter Eda Arriaga, EMERGENCY CARE TECH - 02/25/2019 10:00 AM EST Procedure Notes (unrecognize d section and content) Procedure(s): EMERGENCY CARE TECH MODIFIED BARIUM SWALLOW Pre-Procedure Diagnose(s): Dysphagia, unspecified type Post-Procedure Diagnose(s): Oropharyngeal dysphagia [facility] Speech Language Pathology Modified Barium Swallow Study [...] Explain Environmental Factors supportive mother, lives in custodial in [facility] lives in custodial in [place], mother very supportive - pt stays with [...] causes of encephalopathy. He lives at the [facility] but is being checked on by [...] given his improvement. DAMIAN GRIGSBY MSc, . [email or web address] Staff Neurologist & Movement Disorder Specialist [facility] (Adj Asst: Professor, [facility] [employer] Dept of Neurology) Jany CamposflorenceCRISTOBAL Gonzalez [id number], [facility] [address] Clinic (Appointments) Fax: [phone] Attestation: Time statement: A total of 50 minutes were spent on this encounter either in the patient's room or on the patient's hospital unit and over half of that time was spent on [id number] counseling and/or coordination of care. This note was dictated using [employer], a speech-recognition software. Syntax errors and sound-alike substitutions which may escape proofreading could be present. In such instances, the actual meaning can be extrapolated from the context. Associated Order(s): IP CONSULT TO PULMONOLOGY PULMONOLOGY CONSULT 02/26/2019 Patient: Fahad Bernabe Date of : 1990 Site: [facility] Referring Provider: Refer to consult order in electronic medical record Provider: Kathryn Lawrence CNP ASSESSMENT/PLAN: Fahad Bernabe 28 y.o. male with history of Down syndrome, ADHD, Depression, Hypothryoidism, OCD, Seizures, open heart surgery for childhood ASD/VSD, HTN, aspiration pneumonia, obstructive sleep apnea on CPAP for which he is nonadherent. Transferred to [place] for aspiration pneumonia and acute on chronic [...] a 28 y.o. male presenting from [facility] with complaint of lethargy and was evaluated at [facility] where he was diagnosed with Pneumonia and discharged home with antibiotics. Mother took patient home with her that evening and presents to [facility] ED the following day for worsened lethargy, fever, and cough. B/L interstitial edema noted and patient transferred to [place] for respiratory failure. Pt with history of [...] December. Patient not able to contribute to [place]PO[place] or ROS. Information obtained from mother and [...] tablet 1 tablet 1 tablet Oral Q12H [facility] Idalia Sims MD 1 tablet [...] mg 40 mg Subcutaneous BID [place] Duong [facility],PharmD famotidine (PEPCID) tablet 20 mg 20 [...] Sex: Male Patient Information Primary Caregiver: Other (Comment)([facility] - [phone]) Initial assessment completed with patient's mother, Edison. Patient was present during assessment. Patient's mother Edison reports that she is patient's guardian. This social work instructor requested that Edison bring in a copy of guardianship paperwork for patient's chart. Edison reports that patient resides at [facility], which is a care center for [facility]. Patient does need 24 hour supervision due to flight risk. PING Hendricks is aware and reports that a break away alarm is placed on patient. This social work instructor contacted Pavithra at [facility]. Pavithra reports that patient can return at discharge. Pavithra informed that [facility] plans to transport patient when patient is ready for discharge. Pavithra reports that patient was on 2 liters of oxygen at night while at [facility]. Pavithra requested discharge paperwork when patient is discharged from the hospital. [facility] [phone] FAX [phone]. Discharge Planning Living Arrangements: Facility Support Systems: Parent, relocation manager/social work instructor, Other (Comment)(Mother [facility] reports that she is guardian.) Assistance Needed: stand by Type of Residence: [facility] Care Facility Name: ([facility] Prior to Admission Home Care Services: No Patient expects to be discharged to:: [facility]. Mother [facility] to transport. Does the patient need discharge transport arranged?: No Current Home Equipment: None, Oxygen Anticipated HME: Undetermined Anticipated Discharge Plan Anticipated HME: Undetermined [facility] Disposition D/C Disposition: Another Health Care Institution Not Defined[facility] Agency/Destination: ([facility]) Transportation Type: Auto(Mother, [facility] to transport [phone]) Reason for Choice: Currently with agency Speech [...] Explain Environmental Factors: supportive mother, lives in custodial in [facility] Personal Factors: Awareness of own capacity and performance Explain Personal Factors: premorbid cognitive deficits Skilled Therapy Needs: Anticipate Resolution of Current Assessment Limitations Including: (acute pulmonary deficit) Are Skilled Therapy Services Needed After Discharge: Yes Intensity of Skilled Therapy: (to be determined per MBS) Anticipated Duration of Skilled Therapy: (pending MBS) EMERGENCY CARE TECH Caregiver Readiness Working toward discharge home: Yes EMERGENCY CARE TECH Caregiver Training: Ongoing - Follow up required [...] Assessment: Pertinent clinical information: Downs Syndrome from [facility] Past Medical History: Diagnosis Date ADHD [...] Estimated Needs: 1800-2000cal Method for Estimating Needs: [id number],adjbw Total Protein Estimated Needs: 79gms Method for [...] and instructions Outcome: Met Possible discharge to [facility] tomorrow. Problem: Falls, Risk of Goal: [...] Patient with bathroom needs per mother at [facility]. Will follow up as appropriate. Associated Problem(s): [...] consulted. Patient from [facility]. Problem: Pain Goal: Manage acute pain Outcome: [...] Active Thiago Chandler MD Attending Provider Active Egg Buyer Relationship Specialty Start Date End Date Iftikhar Kemp DO [address] [place] [address] PCP - General Endocrinology/Metabolism 02/23/19 Team Status: Inactive Member Role Status Dates Iftikhar Kemp DO Primary Care Provider Active Start: May 03, 2023 End: May 03, 2023 Martha Richmond APRN ACNP-BC Attending Provider Active Start: May 03, 2023 End: May 03, 2023 DME Active Start: May [id number] End: May 03, 2023 Egg Buyer Relationship Specialty Start Date End Date Iftikhar Kemp DO [address] [place] [address] PCP - General Family Medicine 05/27/23 Team [...] section and content) DATE CREATED AUTHOR 05/28/2021 [facility] DATE CREATED AUTHOR AUTHOR'S ORGANIZ ATION 05/28/2021 [facility] DATE CREATED AUTHOR AUTHOR'S ORGANIZ ATION 06/05/2021 [facility] DATE CREATED AUTHOR AUTHOR'S ORGANIZ ATION 09/28/2021 [facility] DATE CREATED AUTHOR AUTHOR'S ORGANIZ ATION 05/23/2022 [facility] DATE CREATED AUTHOR AUTHOR'S ORGANIZ ATION 06/01/2023 [facility] DATE CREATED AUTHOR AUTHOR'S ORGANIZ ATION 07/14/2023 [facility] DATE CREATED AUTHOR AUTHOR'S ORGANIZ ATION 09/24/2023 [facility] Goals (unrecognized section and content) [...] BASED ON THE PRIMARY CLINICAL RECORDS. [employer] [facility] provides no warranty or guarantee of the accuracy or completeness of information in this document.
[2023-10-21] MEDS: AZITHROMYCIN 500 MG in 0.9 % SODIUM CHLORIDE 250 ML 250 MG IV (15:05)
[2023-10-21] MEDS: LACTATED RINGER'S SOLUTION 1,000 ML 125 ML IV (15:06)
--- OUTSIDE RECORDS SUMMARY | 2023-10-21 15:16 | XMS_ITS | CCD ---
Author Organization [facility] Care Team Providers Care As400 Programmer Name Role Phone Unavailable Unavailable Unavailable Kemp, Iftikhar A Primary Care Provider Unavaila ble Kemp, Iftikhar A Primary Care Provider Iftikhar Kemp DO Primary Care Provider [phone] FRANCK CARBALLO Attending Unavailab le KEMP, IFTIKHAR [...] Kemp, DO Iftikhar A Primary Care Provider [phone] Martha Richmond Unavailable KempDO Buitrago A Primary Care Provider MD Thiago Chandler Attending Provider KempDO Iftikhar patrick A Primary Care Provider MD Thiago Chandler Attending Provider [phone] DAVID, DR IFTIKHAR Otto Admitting Unavailable KEMP, [...] Consulting Unavailable IFTIKHAR KEMP Primary Care Physician [phone] DO Iftikhar Kemp Primary Care Provider MD [...] Provider DO Iftikhar Kemp Primary Care Provider [phone] Iftikhar Kemp Primary Care Unavailable OleFahad sandhu Attending Unavailable Olexa, Fahad Admitting Unavailable Kemp, Iftikhar A Primary Care Unavailable Thiago Chandler Attending Unavailable Thiago Chandler Admitting Unavailable Allergies Allergy Classification Reported Allergen(s) Allergy Type Date of Onset Reaction(s) Facility NSAIDs (1 source) Naproxen Drug Allergy 8 [facility] (20 sources) Naproxen; Translations: [NAPROXEN] Drug Allergy 8 [facility] Work Phone: (8 sources) Seasonal allergy Propensity to adverse reactions 3 Unknown, Unknown Reaction [facility] (1 source) Naproxen Drug Allergy [facility] (4 sources) Non-steroidal anti-inflammato ry agent; Translations: [NSAIDs] Drug allergy [facility] (4 sources) Salicylic Acid; Translations: [salicylates] Drug Allergy [facility] (1 source) Naproxen Drug Allergy [address] [facility] Repository Medications Current Medications Medication Drug [...] Active 0 .Route April 25, 2023 12:00am [employer] Start: 04-25-2023 Cpap (Continuo us Positive Airway Pressure) Active 0 .ROUTE April 25, 2023 12:00am [employer] CPAP Machine (4 sources) CPAP Machine aut [...] 2019 10:10am take 1 capsule by mo [facility] every twenty-four hours Gabapentin [...] take 1 capsule by mouth once daily Lynch Carbonate Active 300 MG PO Daily April 25, 2023 12:00am [employer] capsule Orally Once a day; Note: Source Status: Taking; Provider: Ramesh Das ( ) Start: 02-23-2019 End: 03-01-2019 take 300 mg by mouth once daily 300 mg, Oral, Nightly, First dose on 02/23/19 at 2230 Start: 12-31-2018 End: 02-22-2019 take 300 mg by mouth once daily at bedtime Lynch Carbonate Discontinued 300 MG PO Daily at [...] .Route April 25, 2023 12:00am 3 liters [facility] Emotient Start: 04-25-2023 Oxygen Active 0 .ROUTE April 25, 2023 12:00am 3 liters [facility] Emotient Oxygen 3 liters (4 sources) Oxygen 3 [...] Status: Ordered take 4 tablets by mo [facility] at bedtime divalproex 250 [...] 12-31-2018 End: 02-22-2019 Biscolax Discontinued 10 MG PA Daily December 31, 2018 4:21pm February 22, 2019 10:10am Start: 12-31-2018 End: 02-22-2019 Biscolax Discontinued 10 MG PA Daily December 31, 2018 12:00am February 22, 2019 9:10am Start: 12-31-2018 End: 02-22-2019 Biscolax Discontinued 10 MG PA Daily December 31, 2018 1:00am February 22, [...] times daily. Active take 1 capsule by [facility] every twelve hours carBAMazepine ER 200 MG [...] Ordered docusate sodium 50 mg / sennosides, pen[facility]entiary 8.6 mg oral tablet (1 source) Start: [...] MIXTURE given to patient. polyethylene glycol 3350 35965 mg powder for oral solution (4 sources) [...] 2 Episodic Other aftercare (4 sources) Other long-term (current) drug therapy; Translations: [OTH PENITENTIARY CURRENT DRUG THERAPY] Onset: 3 Episodic Other [...] RT 2Von 09-21-2023 XR wrist RT 2V [facility] [address] [place] [address] XRay Report Signed Patient: Fahad Bernabe MR#: [id number] : 1990 Acct:[id number] Age/Sex: 33 / M ADM Date: 09/21/23 Loc: [facility] Room: Type: [facility] Attending Dr: Fahad Echavarria MD Copies [...] Kristal Reyes M.D.09/21/2023 3:45 PM Dictation Location: [place] [address] Transcribed By: [facility] 09/21/23 1545 Dictated By: Kristal Reyes MD 09/21/23 1542 Signed By: 09/21/23 1545 Normal [facility] Physician Orderon 07-13-2023 Physician Order [id number] 364#1.00TIFF [facility] Consent for Treatmenton 06-14 Consent for Treatment [id number] 8#1.00TIFF [facility] Consent for Treatment [id number] 1A#1.00TIFF [facility] Physician Orderon 07-04-2023 Physician Order [id number] 6#1.00TIFF Normal [facility] XR Adult Swallowing Function w/ Videoon [...] mGy = 5.70 DAP = 134.69 Normal [facility] Physician Orderon 06-06-2023 Physician Order [id number] DA#1.00TIFF Normal [facility] CBCon 05-27-2023 ABSOLUTE BAS 0.1 10*3/uL Normal 0.0-0.2 [facility] Comment on above: Result Comment: Test ing performed at [place] [address] Performed By: #### A CBC, CHEM7F #### [place] [address] ABSOLUTE EOS 0.1 10*3/uL Normal 0.0-0.7 [facility] Comment on above: Performed By: #### A CBC, CHEM7F #### Testing performed at [address] [address] ABSOLUTE NEUTROPHIL COUNT 4.0 10*3/uL Normal 1.4-6.5 [facility] Comment on above: Performed By: #### A CBC, CHEM7F #### Testing performed at [place] [id number] Basophils/100 WBC (Bld) 1.0 % Normal 0.0-2.0 [facility] Comment on above: Performed By: #### A CBC, CHEM7F #### Testing performed at [place] [address] DTYPE AUTO DIFF Normal [facility] Comment on above: Performed By: #### A CBC, CHEM7F #### Testing performed at [place] [address] Eosinophils/100 WBC (Bld) 0.8 % Normal 0.0-11.0 [facility] Comment on above: Performed By: #### A CBC, CHEM7F #### Testing performed at [address] [address] Lymphocytes (Bld) [#/Vol] 2.0 10*3/uL Normal 1.2-3.4 [facility] Comment on above: Performed By: #### A CBC, CHEM7F #### Testing performed at [address] [address] Lymphocytes/100 WBC (Bld) 29.5 % Normal 20.0-55.0 [facility] Comment on above: Performed By: #### A CBC, CHEM7F #### Testing performed at [place] [address] Monocytes (Bld) [#/Vol] 0.5 10*3/uL Normal 0.0-0.7 [facility] Comment on above: Performed By: #### A CBC, CHEM7F #### Testing performed at [address] [address] Monocytes/100 WBC (Bld) 8.2 % Normal 0.0-10.0 [facility] Comment on above: Performed By: #### A CBC, CHEM7F #### Testing performed at [address] [address] Neutrophils/100 WBC (Bld) 60.5 % Normal 37.0-75.0 [facility] Comment on above: Performed By: #### A CBC, CHEM7F #### Testing performed at [address] [address] Erythrocyte distribution width (RBC) [Ratio] 14.6 % High 11.5-14.5 [facility] Comment on above: Performed By: #### A CBC, CHEM7F #### Testing performed at [address] [address] Hematocrit (Bld) [Volume fraction] 40.2 % Low 42.0-52.0 [facility] Comment on above: Performed By: #### A CBC, CHEM7F #### Testing performed at [address] [address] Hemoglobin (Bld) [Mass/Vol] 13.1 g/dL Low 14.0-18.0 [facility] Comment on above: Performed By: #### A CBC, CHEM7F #### Testing performed at [address] [address] MCH (RBC) [Entitic mass] 33.5 pg Normal 26.0-35.0 [facility] Comment on above: Performed By: #### A CBC, CHEM7F #### Testing performed at [address] [address] MCHC (RBC) [Mass/Vol] 32.7 g/dL Normal 27.0-37.0 [facility] Comment on above: Performed By: #### A CBC, CHEM7F #### Testing performed at [address] [address] MCV (RBC) [Entitic vol] 102.5 fL High 80.0-100.0 A [facility] Comment on above: Performed By: #### A CBC, CHEM7F #### Testing performed at [address] [address] Platelet mean volume (Bld) [Entitic vol] 7.0 fL Low 7.4-11.0 [facility] Comment on above: Performed By: #### A CBC, CHEM7F #### Testing performed at [address] [address] Platelets (Bld) [#/Vol] 280 10*3/uL Normal 130-400 [facility] Comment on above: Performed By: #### A CBC, CHEM7F #### Testing performed at [place] [address] RBC (Bld) [#/Vol] 3.92 10*6/uL Low 4.0-6.1 [facility] Comment on above: Performed By: #### A CBC, CHEM7F #### Testing performed at [place] [address] WBC (Bld) [#/Vol] 6.7 10*3/uL Normal 3.6-11.0 [facility] Comment on above: Performed By: #### A CBC, CHEM7F #### Testing performed at [address] [address] CBC, EDIF, PLATELETon 2023 ABSOLUTE BASOPHIL COUNT 0.1 10*3/uL 0.0 - 0.2 10*3/uL [facility] [place] [facility] Comment on above: Testing performed at [place] [id number] Basophils/100 WBC (Bld) 1.0 % 0.0 - 2.0 % [facility] Differential cell count method Nom (Bld) AUTO DIFF % [facility] Eosinophils (Bld) [#/Vol] 0.1 10*3/uL 0.0 - 0.7 10*3/uL [facility] [place] [facility] Eosinophils/100 WBC (Bld) 0.8 % 0.0 - 11.0 % [facility] Erythrocyte distribution width (RBC) [Ratio] 14.6 % High 11.5 - 14.5 % [facility] [place] [facility] Hematocrit (Bld) [Volume fraction] 40.2 % Low 42.0 - 52.0 % [facility] [place] [facility] Hemoglobin (Bld) [Mass/Vol] 13.1 g/dL Low [facility] Interpretation and review of laboratory results Abnormal [facility] Lymphocytes (Bld) [#/Vol] 2.0 10*3/uL 1.2 - 3.4 10*3/uL [facility] [place] [facility] Lymphocytes/100 WBC (Bld) 29.5 % 20.0 - 55.0 % [facility] [place] [facility] MCH (RBC) [Entitic mass] 33.5 pg 26.0 - 35.0 PG [facility] [place] [facility] MCHC (RBC) [Mass/Vol] 32.7 g/dL [facility] MCV (RBC) [Entitic vol] 102.5 fL High A [facility] Monocytes (Bld) [#/Vol] 0.5 10*3/uL 0.0 - 0.7 10*3/uL [facility] [place] [facility] Monocytes/100 WBC (Bld) 8.2 % 0.0 - 10.0 % [facility] [place] [facility] Neutrophils (Bld) [#/Vol] 4.0 10*3/uL 1.4 - 6.5 10*3/uL [facility] Neutrophils/100 WBC (Bld) 60.5 % 37.0 - 75.0 % [facility] [place] [facility] Platelet mean volume (Bld) [Entitic vol] 7.0 fL Low [facility] [place] [facility] Platelets (Bld) [#/Vol] 280 10*3/uL 130 - 400 10*3/uL [facility] [place] [facility] RBC (Bld) [#/Vol] 3.92 10*6/uL Low 4.0 - 6.1 10*6/uL [facility] [place] [facility] WBC (Bld) [#/Vol] 6.7 10*3/uL 3.6 - 11.0 10*3/uL [facility] CHEM 7 FASTINGon 05-27-2023 Chloride [Moles/Vol] 106 mmol/L Normal 98-107 [facility] Comment on above: Result Comment: Chayo garner note: Triglyceride levels of 600mg/dL or higher may positively bias chloride results by approximately 2.1 mmol Performed By: #### A CBC, CHEM7F #### [place] [address] CO2 [Moles/Vol] 28 mmol/L Normal 22-30 [facility] Comment on above: Performed By: #### A CBC, CHEM7F #### [place] [address] Creatinine [Mass/Vol] 1.30 mg/dL High 0.7-1.2 [facility] Comment on above: Performed By: #### A CBC, CHEM7F #### Testing performed at [place] [address] EST. GFR, 83 ml/min/1.73sq.m [facility] Comment on above: Performed By: #### A CBC, CHEM7F #### [place] [address] EST. GFR,Non 69 ml/min/1.73sq.m Normal [facility] Comment on above: Performed By: #### A CBC, CHEM7F #### [place] [address] GFR Information Average GFR for 30-39 years old = 107. Normal [facility] Comment on above: Result Comment: Home Support Worker maye Kidney disease, GFR = <60. Kidney failure, GFR = <15. The GFR estimate is not adjusted for extreme body surface area or acute process, nor has it been validated for women or ethnic groups other than and . Testing performed at [place] [address] Performed By: #### A CBC, CHEM7F #### [place] [address] Glucose [Mass/Vol] 110 mg/dL High 70-100 [facility] Comment on above: Result Comment: NORMAL <100 mg/dL PREDIABETES 101-126 mg/dL DIABETES 126 mg/dL or higher Performed By: #### A CBC, CHEM7F #### [place] [address] Potassium [Moles/Vol] 3.8 mmol/L Normal 3.5-5.1 [facility] Comment on above: Performed By: #### A CBC, CHEM7F #### Testing performed at [place] [address] Sodium [Moles/Vol] 144 mmol/L Normal 137-145 [facility] Comment on above: Performed By: #### A CBC, CHEM7F #### Testing performed at [place] [address] Urea nitrogen [Mass/Vol] 19 mg/dL Normal 7-20 [facility] Comment on above: Performed By: #### A CBC, CHEM7F #### Testing performed at [place] [address] CHEM 7 (LYTES,BUN,CREA,GLUC) on 05-27-2023 Chloride [Moles/Vol] 106 mmol/L [facility] [employer] [facility] Comment on above: Please note: Triglyc eride levels of 600mg/dL or higher may positively bias chloride results by approximately 2.1 mmol CO2 [Moles/Vol] 28 mmol/L [facility] Creatinine [Mass/Vol] 1.30 mg/dL High [employer] [facility] GFR COMMENT Average GFR for 30-39 years old = 107. [facility] Comment on above: Chronic Kidney disea se, GFR = <60. Kidney failure, GFR = <15. The GFR estimate is not adjusted for extreme body surface area or acute process, nor has it been validated for women or ethnic groups other than and . Testing performed at [place], [place] [address] GFR/1.73 sq M.predicted among blacks MDRD (S/P/Bld) [Vol rate/Area] 83 mL/min/{1.73_m2} ml/min/1.73sq. m [facility] GFR/1.73 sq M.predicted among non-blacks MDRD (S/P/Bld) [Vol rate/Area] 69 mL/min/{1.73_m2} ml/min/1.73sq. m [facility] Glucose post fast [Mass/Vol] 110 mg/dL [facility] Comment on above: NORMAL <100 mg/dL PREDIABETES 101-126 mg/dL DIABETES 126 mg/dL or higher Interpretation and review of laboratory results Abnormal [facility] Potassium [Moles/Vol] 3.8 mmol/L [facility] Sodium [Moles/Vol] 144 mmol/L [facility] Urea nitrogen [Mass/Vol] 19 mg/dL [facility] Portable XR Chest Viewson IMPRESSION: Unremarkable [...] contours appear unremarkable. IMPRESSION IMPRESSION: Unremarkable chest. [facility] Radiology Study observation (narrative) [facility] Portable XR Chest ViewsOrder ed By: Terrell Márquez on 05-27-2023 [facility] Work Phone: XR CHEST 1 VIEW [...] contours appear unremarkable. IMPRESSION: Unremarkable chest. Normal [facility] Lithiumon 05-12-2023 Lynch [Moles/Vol] 0.4 mmol/L Low 0.5-1.2 [facility] Comment on above: Result Comment: A co ncentration of 0.5-0.8 mmol/L is advised for long-term use; concentrations of up to 1.2 mmol/L may be necessary during acute treatment. Detection Limit = 0.1 <0.1 indicates None Detected Performed at: [facility] [address], [place] [id number] PhD Shaka Oleary Performed By: #### 2 218740, 0801779, 78848232, 0002712, 7504217, 8999615, 6182094, 8045160, 2904306, 0164412 ####[facility] [address] [place] [address] T3 Freeon 05-12-2023 Free T3 [Mass/Vol] 2.5 pg/mL Invalid Interpretation Code 2.0-4.4 [facility] Comment on above: Result Comment: Perf ormed at: [facility] [address] [id number] PhD Shaka Oleary Performed By: #### 2 496367, 8742663, 39800548, 1061795, 1006344, 3855970, 3356823, 5908516, 1562763, 6075080 ####[facility] [address] [place] [address] CBC w/IndicesOrdered By: [employer] on 05-10-2023 Erythrocyte distribution width (RBC) [Ratio] 14.9 % High 10.9-14.2 [facility] Comment on above: Performed By: #### 2 784404, 5674297, 40245072, 9274267, 2222934, 6989413, 6191686, 2740357, 4837705, 6597589 #### [facility] [address] [place] [address] Hematocrit (Bld) [Volume fraction] 42.4 % Normal 37.7-49.0 [facility] Comment on above: Performed By: #### 2 417675, 3097460, 05258600, 1025710, 5833171, 4269739, 4043529, 5234563, 7598267, 2729210 #### [facility] [address] [place] [address] Hemoglobin (Bld) [Mass/Vol] 13.5 g/dL Normal 13.5-17.5 [facility] Comment on above: Performed By: #### 2 542463, 8492949, 32474274, 0321691, 1848207, 9493799, 4574035, 9485594, 7182720, 8353362 #### [facility] [address] [place] [address] MCH (RBC) [Entitic mass] 33.4 pg Normal 27.0-34.0 [facility] Comment on above: Performed By: #### 2 125447, 5562004, 35011186, 2827187, 7758089, 2828647, 7423071, 2746012, 7747196, 5064437 #### [facility] [address] [place] [address] MCHC (RBC) [Mass/Vol] 31.9 g/dL Normal 31.4-36.0 [facility] Comment on above: Performed By: #### 2 429105, 6414017, 48155107, 0070374, 9583616, 6220388, 5465555, 6365200, 3641474, 9283073 #### [facility] [address] [place] [address] MCV (RBC) [Entitic vol] 104.9 fL High 80.0-100.0 [facility] Comment on above: Performed By: #### 2 463251, 6774201, 13533569, 2761138, 1255472, 4035007, 7942177, 9522393, 7584301, 5638143 #### [facility] [address] [place] [address] Platelet mean volume (Bld) [Entitic vol] 7.7 fL Normal 6.4-10.8 [facility] Comment on above: Performed By: #### 2 553495, 7032874, 15315640, 0486572, 6829513, 9230857, 6653144, 0207907, 9120784, 9178338 #### [facility] [address] [place] [address] Platelets (Bld) [#/Vol] 359.0 E9/L Normal 150.0-500.0 [facility] Comment on above: Performed By: #### 2 461824, 5986441, 77119639, 4690601, 6773343, 5188103, 0655531, 3442550, 1988805, 9620427 #### [facility] [address] [place] [address] RBC (Bld) [#/Vol] 4.0 E12/L Low 4.3-5.9 [facility] Comment on above: Performed By: #### 2 439374, 1738163, 45845560, 9386720, 4902179, 3105600, 4166205, 7806536, 7784523, 9454992 #### [facility] [address] [place] [address] WBC corrected for nucl RBC Auto (Bld) [#/Vol] 4.6 E9/L Normal 4.0-11.0 [facility] Comment on above: Performed By: #### 2 267068, 4860074, 63612031, 4550501, 3946224, 1145795, 1234297, 9569098, 6457717, 0789237 #### [facility] [address] [place] [address] CBC w/Indiceson 05-10-2023 RBC size Nom (Bld) NORMAL Invalid Interpretation Code [facility] Comment on above: Performed By: #### 2 398454, 6372169, 38133793, 0733485, 7047732, 7342585, 9889691, 7109067, 4213440, 1246269 #### [facility] [address] [place], [place] [address] CHEMISTRYOrdered By: SYSTEM SYSTEM on 05-10-2023 Albumin/Globulin [...] Comment on above: Performed By: #### 2 139484, 4037348, 82794247, 8730410, 0393166, 3078031, 1742667, 8188887, 2733371, 9232894 #### [facility] [address] [place] [address] Anion gap [Moles/Vol] 10 mmol/L Normal 6-16 Rem [facility] Comment on above: Performed By: #### 2 420889, 3274501, 96151663, 1544688, 8095203, 2875443, 0786420, 8455117, 3666935, 6141850 #### [facility] [address] [place] [address] Bilirubin [Mass/Vol] 0.2 mg/dL Normal 0.0-1.1 Scar [facility] Comment on above: Performed By: #### 2 783539, 5809873, 98264221, 3976420, 9648283, 0789453, 8819231, 3033444, 3640390, 2489849 #### [facility] [address] [place] [address] Calcium [Mass/Vol] 9.6 mg/dL Normal 8.9-11.1 [facility] Comment on above: Performed By: #### 2 175785, 2070421, 49106025, 8049167, 4941935, 3318886, 5381806, 7970033, 7699724, 0584884 #### [facility] [address] [place] [address] Chloride [Moles/Vol] 108 mmol/L Normal 101-111 [facility] Comment on above: Performed By: #### 2 914402, 9649360, 45046540, 1820909, 8208867, 4166736, 9162724, 8570200, 8177731, 2729387 #### [facility] [address] [place] [address] CO2 [Moles/Vol] 30 mmol/L Normal 21-31 [facility] Comment on above: Performed By: #### 2 103146, 4496429, 87701348, 1795569, 2901458, 9416707, 2763840, 5893920, 8277348, 9794586 #### [facility] [address] [place] [address] Creatinine [Mass/Vol] 1.2 mg/dL Normal 0.5-1.3 Rem isol Chem Comment on above: Performed By: #### 2 027082, 6356243, 92312188, 3054436, 2563839, 3327888, 3087223, 7483907, 8331114, 1322334 #### [facility] [address] [place] [address] Globulin (S) [Mass/Vol] 3.9 g/dL Normal 1.4-4.0 R emisol Chem Comment on above: Performed By: #### 2 034168, 2744454, 76358554, 3773721, 7994180, 3454774, 3920551, 1745623, 2429744, 8920124 #### [facility] [address] [place] [address] Glucose [Mass/Vol] 84 mg/dL Normal 55-199 [facility] Comment on above: Performed By: #### 2 035633, 7655964, 96049494, 1750397, 1341132, 5278031, 3592194, 0092891, 3325921, 3464358 #### [facility] [address] [place] [address] Potassium [Moles/Vol] 4.3 mmol/L Normal 3.5-5.3 Rem isol Chem Comment on above: Performed By: #### 2 683060, 2303559, 72307097, 5666047, 9836956, 5976121, 9560569, 0118748, 5319358, 1643323 #### [facility] [address] [place] [address] Protein [Mass/Vol] 7.6 g/dL Normal 6.0-7.8 [facility] Comment on above: Performed By: #### 2 215986, 8756424, 86231002, 2717288, 5413693, 1202746, 2282405, 9022247, 3958550, 5887467 #### [facility] [address] [place] [address] Sodium [Moles/Vol] 144 mmol/L Normal 135-145 [facility] Comment on above: Performed By: #### 2 257747, 0191534, 49875749, 6936038, 7315114, 8970259, 8699483, 5152983, 0152434, 5676784 #### [facility] [address] [place] [address] Urea nitrogen [Mass/Vol] 18 mg/dL Normal 5-21 [facility] Comment on above: Performed By: #### 2 112485, 7962916, 72827088, 6941780, 5040978, 1139071, 7513579, 4904254, 2568423, 9789489 #### [facility] [address] [place] [address] CMPon 05-10-2023 Albumin/Globulin (S) [Mass conc ratio] 0.9 Low 1.1-2.2 [facility] Comment on above: Performed By: #### 2 844565, 3243971, 78922172, 2558498, 3727129, 4957059, 5152079, 7204676, 9873984, 7757203 #### [facility] [address] [place] [address] ALP [Catalytic activity/Vol] 72 Int._Unit/L Normal 21-98 [facility] Comment on above: Performed By: #### 2 728743, 2935270, 58344771, 6528323, 1758629, 5082493, 4528565, 9960916, 6988603, 2259348 #### [facility] [address] [place] [address] ALT No additional P-5'-P [Catalytic activity/Vol] 9 Int._Unit/L Normal 6-46 [facility] Comment on above: Performed By: #### 2 673767, 2076692, 26378690, 0600141, 8711915, 5155093, 8675631, 5064175, 6634580, 4854321 #### [facility] [address] [place] [address] AST [Catalytic activity/Vol] 17 Int._Unit/L Normal 5-43 [facility] Comment on above: Performed By: #### 2 835482, 6767745, 15100060, 3530405, 6710399, 4913104, 0684476, 8481866, 1059178, 9106634 #### [facility] [address] [place], [place] [address] Urea nitrogen/Creatinine [Mass ratio] 15 No Units Normal 10-20 [facility] Comment on above: Performed By: #### 2 [id number], [id number], [id number], 9726439, 1893527, 3687384, 4936965, 1477481, 4541731, [id number] #### [facility] [address] [id number] CarbamazepineOrdered By: SYS TEM SYSTEM on 05-10-2023 Carbamaz Lvl 7.3 microgram/mL Normal 4.0-12.0 Remiso l Chem Comment on above: Performed By: #### 2 [id number], [id number], [id number], 8252793, 3115714, 0459398, 0877347, 7728983, 1843655, 5709874 #### [facility] [address] [id number] Free [id number] By: SYSTEM SY STEM on 05-10-2023 Free T4 [Mass/Vol] 0.61 ng/dL Normal 0.58-1.64 Remiso l Chem Comment on above: Performed By: #### 2 [id number], [id number], [id number], 9535647, 1566128, 9184572, 0926527, 4785464, 7005326, 5725217 #### [facility] [address] [id number] HEMATOLOGYOrdered By: SYSTEM SYSTEM on 05-10-2023 RBC size Nom (Bld) NORMAL *NA* (05/10/23 7:00 AM) Invalid Interpretation Code Remisol Heme Ironon 05-10-2023 Iron [Mass/Vol] 70 microgram/dL Normal 35-153 [facility] Comment on above: Performed By: #### 2 [id number], 5980243, 44351986, 0799828, 6442682, 4533900, 1968425, 7641368, 1256562, 0182293 #### [facility] [address] [id number] Physician Orderon 05-10-2023 Physician Order [id number] 31#1.00TIFF Normal [facility] TSHOrdered By: SYSTEM SYSTEM on 05-10-2023 TSH Qn 3.75 m[IU]/L Normal 0.34-5.60 Remisol Chem Comment on above: Performed By: #### 2 291438, 2257770, 43510974, 7780228, 4906333, 5611063, 3885844, 5889476, 6314574, 7384889 #### [facility] [address] [id number] Vit [id number] By: SYSTEM [employer] STEM on 05-10-2023 Cobalamin (Vitamin B12) [Mass/Vol] 479 pg/mL Normal 50-1500 Remisol Chem Comment on above: Performed By: #### 2 203190, 1787294, 89352429, 5986375, 7172023, 6304677, 1913701, 8424346, 6753743, 2813371 ####[facility] [address] [place] [address] eGFROrdered By: SYSTEM [employer] on 05-10-2023 eGFR 83 mL/min/1.73 m2 Normal >=59 Remisol Chem Comment on above: Order Comment: Order added by Discern Expert. Performed By: #### 2 [id number], 7698084, [id number], 7169830, 0337352, 4856521, 5014114, 1999526, 3331899, 6431790 #### [facility] [address] [place] [address] CARBAMAZEPINEon 05-18-2022 Carbamezapine 6.9 ug/mL Normal 4.0-12.0 [facility] Comment on above: Result Comment: In c onjunction with other antiepileptic drugs Therapeutic 4.0 - 8.0 Toxicity 9.0 - 12.0 . Carbamazepine alone Therapeutic 8.0 - 12.0 . Detection Limit = 2.0 <2.0 indicates None Detected Performed By: #### C ARBLC #### [facility] [address] [place] [address] Dr. Chase Pedro LITHIUMon 05-18-2022 Lynch (Eskalith(R)), Serum 0.7 mmol/L Normal 0.5-1.2 [facility] Comment on above: Result Comment: A co ncentration of 0.5-0.8 mmol/L is advised for long-term use; concentrations of up to 1.2 mmol/L may be necessary during acute treatment. Detection Limit = 0.1 <0.1 indicates None Detected Performed By: #### L ITHIUM #### [facility] [address] [address] [address] Chase Pedro CBC AUTO DIFFon 05-17-2022 BASO # 0.1 103/ul Normal 0.0-0.1 [facility] Comment on above: Performed By: #### C BC #### [facility] [address] [address] [address] Chase Pedro Basophils/100 WBC (Bld) 1.2 % Normal 0.2-2.0 [facility] Comment on above: Performed By: #### C BC #### [facility] [address] [place] [address] Dr. Chase Pedro EO # 0.0 103/ul Normal 0.0-0.7 [facility] Comment on above: Performed By: #### C BC #### [facility] [address] [place] [address] Dr. Chase Pedro Eosinophils/100 WBC (Bld) 0.2 % Critically low 0.9-7.0 [facility] Comment on above: Performed By: #### C BC #### [facility] [address] [place] [address] Dr. Chase Pedro Erythrocyte distribution width (RBC) [Ratio] 12.8 % Normal 11.0-15.0 [facility] Comment on above: Performed By: #### C BC #### [facility] [address] [place] [address] Dr. Chase Pedro Hematocrit (Bld) [Volume fraction] 42.5 % Normal 42.0-54.0 [facility] Comment on above: Performed By: #### C BC #### [facility] [address] [place] [address] Dr. Chase Pedro Hemoglobin (Bld) [Mass/Vol] 13.8 g/dL Critically low 14.0-18.0 [facility] Comment on above: Performed By: #### C BC #### [facility] [address] [place] [address] Dr. Chase Pedro IG # 0.02 10e3/ul Normal 0.00-0.03 [facility] Comment on above: Performed By: #### C BC #### [facility] [address] [place] [address] Dr. Chase Pedro IG % 0.4 % Normal 0.0-0.5 [facility] Comment on above: Performed By: #### C BC #### [facility] [address] [place] [address] Dr. Chase Pedro LYMPH # 2.3 103/ul Normal 1.2-3.8 [facility] Comment on above: Performed By: #### C BC #### [facility] [address] [place] [address] Dr. Chase Pedro Lymphocytes/100 WBC (Bld) 45.8 % Normal 20.5-60.0 [facility] Comment on above: Performed By: #### C BC #### [facility] [address] [place] [address] Dr. Chase Pedro MANUAL DIFF REQ NO Normal [facility] Comment on above: Performed By: #### C BC #### [facility] [address] [place] [address] Dr. Chase Pedro MCH (RBC) [Entitic mass] 33.8 pg Normal 25.9-34.0 [facility] Comment on above: Performed By: #### C BC #### [facility] [address] [place] [address] Dr. Chsae Pedro MCHC (RBC) [Mass/Vol] 32.5 g/dL Normal 29.9-35.2 [facility] Comment on above: Performed By: #### C BC #### [facility] [address] [place] [address] Dr. Chase Pedro MCV (RBC) [Entitic vol] 104.2 fL Critically high 80.0-94 .0 [facility] Comment on above: Performed By: #### C BC #### [facility] [address] [place] [address] Dr. Chase Pedro MONO # 0.3 103/ul Normal 0.3-0.8 [facility] Comment on above: Performed By: #### C BC #### [facility] [address] [place] [address] Dr. Chase Pedro Monocytes/100 WBC (Bld) 5.7 % Normal 1.7-12.0 [facility] Comment on above: Performed By: #### C BC #### [facility] [address] [place] [address] Dr. Chase Pedro NEUT # 2.3 103/ul Normal 1.4-6.5 [facility] Comment on above: Performed By: #### C BC #### [facility] [address] [address] [address] Chase Pedro Neutrophils/100 WBC (Bld) 46.7 % Normal 43.0-75.0 [facility] Comment on above: Performed By: #### C BC #### [facility] [address] [address] [address] Chase Pedro Platelet mean volume (Bld) [Entitic vol] 9.2 fL Critically low 9.5-13.5 [facility] Comment on above: Performed By: #### C BC #### [facility] [address] [address] [address] Chase Pedro PLT 288 103/ul Normal 150-450 [facility] Comment on above: Performed By: #### C BC #### [facility] [address] [place] [address] Dr. Chase Pedro RBC 4.08 106/ul Critically low 4.70-6.10 [facility] Comment on above: Performed By: #### C BC #### [facility] [address] [address] [address] Chase Pedro WBC 4.9 103/ul Normal 4.0-11.0 [facility] Comment on above: Performed By: #### C BC #### [facility] [address] [place] [address] Dr. Chase Pedro DEPAKENE/ VALPROIC ACIDon DEPAKENE 56.7 ug/ml Normal 50.0-100.0 [facility] Comment on above: Performed By: #### C MP, TSH, VALP #### [facility] [address] [address] [address] Chase Pedro PROF 14(COMP METB)on 023 Albumin [Mass/Vol] 3.5 g/dL Normal 3.4-5.0 [facility] Comment on above: Performed By: #### C MP, TSH, VALP #### [facility] [address] [place] [address] Dr. Chase Pedro Albumin/Globulin [Mass ratio] 0.8 {ratio} Normal [facility] Comment on above: Performed By: #### C MP, TSH, VALP #### [facility] [address] [place] [address] Dr. Chase Pedro ALP [Catalytic activity/Vol] 110 U/L Normal 46-116 [facility] Comment on above: Performed By: #### C MP, TSH, VALP #### [facility] [address] [place] [address] Dr. Chase Pedro ALT [Catalytic activity/Vol] 18 U/L Normal 16-63 [facility] Comment on above: Performed By: #### C MP, TSH, VALP #### [facility] [address] [place] [address] Dr. Chase Pedro Anion gap [Moles/Vol] 8.0 mmol/L Normal [facility] Comment on above: Performed By: #### C MP, TSH, VALP #### [facility] [address] [place] [address] Dr. Chase Pedro AST [Catalytic activity/Vol] 12 U/L Critically low 15-37 [facility] Comment on above: Performed By: #### C MP, TSH, VALP #### [facility] [address] [place] [address] Dr. Chase Pedro Bilirubin [Mass/Vol] 0.3 mg/dL Normal 0.2-1.0 [facility] Comment on above: Performed By: #### C MP, TSH, VALP #### [facility] [address] [place] [address] Dr. Chase Pedro Calcium [Mass/Vol] 9.3 mg/dL Normal 8.5-10.1 [facility] Comment on above: Performed By: #### C MP, TSH, VALP #### [facility] [address] [place] [address] Dr. Chase Pedro Chloride [Moles/Vol] 107 mmol/L Normal 98-107 [facility] Comment on above: Performed By: #### C MP, TSH, VALP #### [facility] [address] [address] [address] Chase Pedro CO2 [Moles/Vol] 36.9 mmol/L Critically high 21.0-32.0 [facility] Comment on above: Performed By: #### C MP, TSH, VALP #### [facility] [address] [place] [address] Dr. Chase Pedro Creatinine [Mass/Vol] 1.46 mg/dL Critically high 0.70-1.30 [facility] Comment on above: Performed By: #### C MP, TSH, VALP #### [facility] [address] [address] [address] Chase Pedro EGFR-AF MOSOTHO >60 Normal >=60 [facility] Comment on above: Performed By: #### C MP, TSH, VALP #### [facility] [address] [place] [address] Dr. Chase Pedro EGFR-NON AF MOSOTHO 57 mL/min/1.73m2 Critically low >=60 [facility] Comment on above: Performed By: #### C MP, TSH, VALP #### [facility] [address] [place] [address] Dr. Chase Pedro Globulin (S) [Mass/Vol] 4.4 g/dL Normal [facility] Comment on above: Performed By: #### C MP, TSH, VALP #### [facility] [address] [place] [address] Dr. Chase Pedro Glucose [Mass/Vol] 94 mg/dL Normal 74-106 [facility] Comment on above: Performed By: #### C MP, TSH, VALP #### [facility] [address] [place] [address] Dr. Chase Pedro Potassium [Moles/Vol] 3.9 mmol/L Normal 3.5-5.1 [facility] Comment on above: Performed By: #### C MP, TSH, VALP #### [facility] [address] [place] [address] Dr. Chase Pedro Protein [Mass/Vol] 7.9 g/dL Normal 6.4-8.2 [facility] Comment on above: Performed By: #### C MP, TSH, VALP #### [facility] [address] [address] [address] Chase Pedro Sodium [Moles/Vol] 148 mmol/L Critically high 136-145 [facility] Comment on above: Performed By: #### C MP, TSH, VALP #### [facility] [address] [place] [address] Dr. Chase Pedro Urea nitrogen [Mass/Vol] 17.0 mg/dL Normal 7.0-18.0 [facility] Comment on above: Performed By: #### C MP, TSH, VALP #### [facility] [address] [place] [address] Dr. Chase Pedro Urea nitrogen/Creatinine [Mass ratio] 11.6 mg/mg Normal [facility] Comment on above: Performed By: #### C MP, TSH, VALP #### [facility] [address] [place] [address] Dr. Chase Pedro TSHon 05-17-2022 TSH 0.725 uIU/mL Normal 0.358-3.740 [facility] Comment on above: Performed By: #### C MP, TSH, VALP #### [facility] [address] [place] [address] Dr. Chase Pedro Progress Noteson 09-22-2021 [employer] Authentication Interface Message Text ----- Wednesday, September 22, 2021 at 11:33:21 AM ----- ----- Provider: Shell Singh, Resident -- Clinic: [facility] ----- COMPOSITE JEHOVAH'S WITNESS Patient is scheduled for Sikhism on tooth #22-MDF, 23-MDF, 24-MDF, 25-MDF, 26-MDF and 27 surface MDF. Reviewed Medical History. Pt exhibited the following conditions: Mental Disorders Patient is ready for treatment. Topical Benzocaine gel applied at the injection site for 2 minutes. Administered 1 carpules of Lidocaine, 2% with Epinephrine 1:100,000,. Decay/existing jew removed, cavity prepared. Selectively etched enamel with 37% phosphoric acid, rinsed, and blot dried. OptiBond davidson applied and light-cured. Condensed packable composite shade in light cured increments using Mylar strip and wedge. Finished with finishing burs, checked occlusion, verified proximal contacts and jew was polished. Rinsed and suctioned intraorally, advised [...] ----- Provider: Emeterio Zapata DDS -- Clinic: [facility] ----- Normal [facility] WOUND CULTUREon 07-18-2021 Antimicrobial Susceptibility Comment Normal [facility] Comment on above: Result Comment: S = Susceptible; I = Intermediate; R = Resistant P = Positive; N = Negative MICS are expressed in micrograms per mL Antibiotic RSLT#1 RSLT#2 RSLT#3 RSLT#4 Penicillin S Vancomycin S Performed By: #### C XWND #### [facility] [address] [place] [address] Dr. Chase Pedro Bacteria identified Aer cx Nom (Unsp spec) Final report Abnormal [facility] Comment on above: Performed By: #### C XWND #### [facility] [address] [place] [address] Dr. Chase Pedro Result 1 Enterococcus faecalis Abnormal [facility] Comment on above: Result Comment: For Enterococcus species, aminoglycosides (except for high-level resistance screening), cephalosporins, clindamycin, and trimethoprim-sulfamethoxazole are not effective clinically. (CLSI, [id number], 2016) Heavy growth Performed By: #### C XWND #### [facility] [address] [place] [address] Dr. Chase Pedro Progress Noteson 06-08-2021 [employer] Authentication Interface Message Text [facility], Pt is [...] on 6 month recall. Examination completed by /[employer] [facility] [place]: mian ----- Signed on Tuesday, June 08, 2021 at 2:17:56 PM ----- ----- Provider: Emeterio Zapata DDS -- Clinic: [facility] ----- Normal [facility] XR MODIFIED BARIUM SWALLOWon 05-06-2021 XR [...] MonMay 06, 2021 2:54:29 PM EDT Normal [facility] Comment on above: Order Comment: [...] shotty mediastinal and hilar lymph nodes. 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 Cardiomegaly, significant for the patient's age. [employer] Workstation ID: [id number] Dictated by: BERNADETTE ARANA on MonMay 05, 2021 2:07:05 PM EDT Transcribed by: NIKI QUESADA on MonMay 05, 2021 2:30:07 PM EDT Finalized by: BERNADETTE ARANA on MonMay 05, 2021 2:37:[address] [facility] Comment on above: Order Comment: Injur [...] on MonMay 04, 2021 8:43:[address] [facility] Comment on above: Order Comment: Injur [...] SARS-CoV-2/Flu/RSV plus RT-PCR Cepheid assay on the [employer] X[employer] System. This test has not been approved for use in asymptomatic patients and its performance in this patient population has not been evaluated. Negative results do not rule out the presence of SARS-CoV-2/COVID-19 . Fact sheets for this EUA can be found at the following links: For Healthcare Providers: https://www.fda.gov /media/245347/downl oad For Patients: https://www.fda.gov /media/146823/downl oad [facility] Comment on above: Performed By: #### L [id number] #### [facility] [address] [id number] Liam Casas M.D. [id number] XR CHEST PA/APon 05-02-2021 XR CHEST PA/AP [...] lung base. Findings consistent with pneumonia. [facility]/[employer] Workstation ID: [id number] Dictated by: FRANCK JEFFERS on [place] May 02, 2021 1:44:03 PM EDT Transcribed by: CAMI CHAHAL on MonMay 02, 2021 1:47:37 PM EDT Finalized by: FRANCK JEFFERS on [place] May 02, 2021 2:44:[address] [facility] Comment on above: Order Comment: [...] refer to the speech pathologist's detailed report. [employer] Workstation ID: [id number] [facility] EXAMINATION: XR MODIFIED BARIUM SWALLOW HISTORY: [...] no radiographic evidence of tracheal aspiration/penetrat ion. [facility] Interface, Rad In [employer] - 07/08/2020 8:42 PM EDT EXAMINATION: XR [...] refer to the speech pathologist's detailed report. [employer] Workstation ID: [id number] [facility] XR MODIFIED BARIUM SWALLOWon 07-08-2020 [...] refer to the speech pathologist's detailed report. [employer] Workstation ID: [id number] Dictated by: BERNADETTE ARANA on MonJuly 08, 2020 7:29:57 PM EDT Transcribed by: CAMI CHAHAL on MonJuly 08, 2020 7:30:41 PM EDT Finalized by: BERNADETTE ARANA on MonJuly 08, 2020 8:40:[address] [facility] Comment on above: Order Comment: ROULA Gutierrez ORDER Injury/Trauma or Illness?:Illness/Other How long have you had these symptoms (acute/chronic)?:Acute Reason for exam?: Dyspepsia Type of Exam?:Ongoing Additional signs and symptoms?: Dyspepsia Fluoro time in minutes:.4 40 seconds fluoro Fluoro dose in mGy?:22.92 Basic Metabolic Panelon 02-13 Anion gap [Moles/Vol] 7 mmol/L Low 10 - 20 mmol/L [facility] Calcium [Mass/Vol] 9.2 mg/dL 8.4 - 10. 2 mg/dL [facility] Chloride [Moles/Vol] 98 mmol/L 98 - 10 8 mmol/L [facility] Creatinine [Mass/Vol] 1.56 mg/dL High 0.5 - 1.3 mg/dL [facility] GFR/1.73 sq M predicted among non-blacks MDRD (S/P/Bld) [Vol rate/Area] The eGFR should be used for monitoring renal function only and not for medication dosing. [facility] GFR/1.73 sq M.predicted CKD-EPI (S/P/Bld) [Vol rate/Area] 60 >=60 mL/min/1.73 m2 [facility] Glucose [Mass/Vol] 102 mg/dL High 65 - 99 mg/dL [facility] HCO3 [Moles/Vol] 40 mmol/L High 21 - 32 mmol/L [facility] Potassium [Moles/Vol] 4.0 mmol/L 3.5 - 5.1 mmol/L [facility] Sodium [Moles/Vol] 141 mmol/L 135 - 145 mmol/L [facility] Urea nitrogen [Mass/Vol] 28 mg/dL High 8 - 25 mg/dL [facility] Urea nitrogen/Creatinine [Mass ratio] 17.9 mg/mg [facility] CBC WITH AUTO DIFFERENTIALon 03-01-2019 Basophils (Bld) [#/Vol] 0.05 10*3/uL [facility] Basophils/100 WBC (Bld) 0.7 % [facility] Eosinophils (Bld) [#/Vol] 0.08 10*3/uL [facility] Eosinophils/100 WBC (Bld) 1.2 % [facility] Erythrocyte distribution width (RBC) [Entitic vol] 14.2 % 11.6 - 14.8 % [facility] Hematocrit (Bld) [Volume fraction] 41.3 % 41 - 53 % [facility] Hemoglobin (Bld) [Mass/Vol] 13.2 g/dL Low 13.5 - 17.5 g/dL [facility] Immature granulocytes (Bld) [#/Vol] 0.06 10*3/uL [facility] Immature granulocytes/100 WBC (Bld) 0.90 % [facility] Comment on above: The IG parameter is the percentage of metamyelocytes, myelocytes, and promyelocytes. Interpretation and review of laboratory results Abnormal [facility] Lymphocytes (Bld) [#/Vol] 1.76 10*3/uL [facility] Lymphocytes/100 WBC (Bld) 26.2 % [facility] MCH (RBC) [Entitic mass] 32.3 pg 26 - 34 pg [facility] MCHC (RBC) [Mass/Vol] 32.0 g/dL 31 - 37 g/dL [facility] MCV (RBC) [Entitic vol] 101.0 fL High 80 - 100 fL [facility] Monocytes (Bld) [#/Vol] 0.65 10*3/uL [facility] Monocytes/100 WBC (Bld) 9.7 % [facility] Neutrophils (Bld) [#/Vol] 4.12 10*3/uL [facility] Neutrophils/100 WBC (Bld) 61.3 % [facility] Nucleated RBC (Bld) [#/Vol] 0.00 10*3/uL [facility] Nucleated RBC/100 WBC (Bld) [Ratio] 0.0 % [facility] Platelet mean volume (Bld) [Entitic vol] 9.6 fL 9 - 15.5 fL [facility] Platelets (Bld) [#/Vol] 355 10*3/uL [facility] RBC (Bld) [#/Vol] 4.09 10*6/uL Low [facility] eah WBC (Bld) [#/Vol] 6.72 10*3/uL [facility] eah Magnesium Levelon 03-01-2019 Magnesium [Mass/Vol] 2.5 mg/dL High 1.6 - 2 .4 mg/dL [facility] Otheron 03-01-2019 Interpretation and review of laboratory results Abnormal [facility] Phosphoruson 03-01-2019 Interpretation and review of laboratory results Normal [facility] Phosphate [Mass/Vol] 4.2 mg/dL 2.7 - 4 .5 mg/dL [facility] Basic Metabolic Panelon 02-13 Anion gap [Moles/Vol] 8 mmol/L Low 10 - 20 mmol/L [facility] Calcium [Mass/Vol] 9.2 mg/dL 8.4 - 10. 2 mg/dL [facility] Chloride [Moles/Vol] 99 mmol/L 98 - 10 8 mmol/L [facility] Creatinine [Mass/Vol] 1.54 mg/dL High 0.5 - 1.3 mg/dL [facility] GFR/1.73 sq M predicted among non-blacks MDRD (S/P/Bld) [Vol rate/Area] The eGFR should be used for monitoring renal function only and not for medication dosing. [facility] GFR/1.73 sq M.predicted CKD-EPI (S/P/Bld) [Vol rate/Area] 61 >=60 mL/min/1.73 m2 [facility] Glucose [Mass/Vol] 95 mg/dL 65 - 99 mg/dL [facility] HCO3 [Moles/Vol] 38 mmol/L High 21 - 32 mmol/L [facility] Potassium [Moles/Vol] 4.1 mmol/L 3.5 - 5.1 mmol/L [facility] Sodium [Moles/Vol] 141 mmol/L 135 - 145 mmol/L [facility] Urea nitrogen [Mass/Vol] 27 mg/dL High 8 - 25 mg/dL [facility] Urea nitrogen/Creatinine [Mass ratio] 17.5 mg/mg [facility] CBC WITH AUTO DIFFERENTIALon 02-28-2019 Basophils (Bld) [#/Vol] 0.06 10*3/uL [facility] Basophils/100 WBC (Bld) 1.0 % [facility] Eosinophils (Bld) [#/Vol] 0.07 10*3/uL [facility] Eosinophils/100 WBC (Bld) 1.2 % [facility] Erythrocyte distribution width (RBC) [Entitic vol] 14.5 % 11.6 - 14.8 % [facility] Hematocrit (Bld) [Volume fraction] 41.4 % 41 - 53 % [facility] Hemoglobin (Bld) [Mass/Vol] 13.1 g/dL Low 13.5 - 17.5 g/dL [facility] Immature granulocytes (Bld) [#/Vol] 0.07 10*3/uL [facility] Immature granulocytes/100 WBC (Bld) 1.20 % [facility] Comment on above: The IG parameter is the percentage of metamyelocytes, myelocytes, and promyelocytes. Lymphocytes (Bld) [#/Vol] 2.12 10*3/uL [facility] Lymphocytes/100 WBC (Bld) 35.6 % [facility] MCH (RBC) [Entitic mass] 32.4 pg 26 - 34 pg [facility] MCHC (RBC) [Mass/Vol] 31.6 g/dL 31 - 37 g/dL [facility] MCV (RBC) [Entitic vol] 102.5 fL High 80 - 100 fL [facility] Monocytes (Bld) [#/Vol] 0.40 10*3/uL [facility] Monocytes/100 WBC (Bld) 6.7 % [facility] Neutrophils (Bld) [#/Vol] 3.23 10*3/uL [facility] Neutrophils/100 WBC (Bld) 54.3 % [facility] Nucleated RBC (Bld) [#/Vol] 0.00 10*3/uL [facility] Nucleated RBC/100 WBC (Bld) [Ratio] 0.0 % [facility] Platelet mean volume (Bld) [Entitic vol] 9.6 fL 9 - 15.5 fL [facility] Platelets (Bld) [#/Vol] 383 10*3/uL [facility] RBC (Bld) [#/Vol] 4.04 10*6/uL Low [facility] eah WBC (Bld) [#/Vol] 6.20 10*3/uL [facility] eah Magnesium Levelon 02-28-2019 Magnesium [Mass/Vol] 2.6 mg/dL High 1.6 - 2 .4 mg/dL [facility] Otheron 02-28-2019 Interpretation and review of laboratory results Abnormal [facility] Phosphoruson 02-28-2019 Phosphate [Mass/Vol] 4.7 mg/dL High 2.7 - 4 .5 mg/dL [facility] Basic Metabolic Panelon 02-13 Anion gap [Moles/Vol] 7 mmol/L Low 10 - 20 mmol/L [facility] Calcium [Mass/Vol] 9.2 mg/dL 8.4 - 10. 2 mg/dL [facility] Chloride [Moles/Vol] 101 mmol/L 98 - 10 8 mmol/L [facility] Creatinine [Mass/Vol] 1.54 mg/dL High 0.5 - 1.3 mg/dL [facility] GFR/1.73 sq M predicted among non-blacks MDRD (S/P/Bld) [Vol rate/Area] The eGFR should be used for monitoring renal function only and not for medication dosing. [facility] GFR/1.73 sq M.predicted CKD-EPI (S/P/Bld) [Vol rate/Area] 61 >=60 mL/min/1.73 m2 [facility] Glucose [Mass/Vol] 104 mg/dL High 65 - 99 mg/dL [facility] HCO3 [Moles/Vol] 40 mmol/L High 21 - 32 mmol/L [facility] Interpretation and review of laboratory results Abnormal [facility] Potassium [Moles/Vol] 4.0 mmol/L 3.5 - 5.1 mmol/L [facility] Sodium [Moles/Vol] 144 mmol/L 135 - 145 mmol/L [facility] Urea nitrogen [Mass/Vol] 24 mg/dL 8 - 25 mg/dL [facility] Urea nitrogen/Creatinine [Mass ratio] 15.6 mg/mg [facility] NT Pro BNPon 02-26-2019 Interpretation and review of laboratory results Normal [facility] Natriuretic peptide.B prohormone N-Terminal [Mass/Vol] 67 pg/mL 0 - 300 pg/mL [facility] Priin Study Cut-offs Rule In: < /= 50 Years >450 pg/mL 51 Years - 75 Years >900 pg/mL 76 Years - 99 Years >1800 pg/mL Rule Out: All patients <300 pg/mL [facility] ECHOCARDIOGRAM 2D COMPLETEon 02-25-2019 Interface, Rad In [facility] Xper Echopacs - 02/25/2019 1:[address] [address] [place] [address] ----- ECHOCARDIOGRAPHY REPORT - [facility] ----- Name: FAHAD BERNABE Age: 28 years Date: 02/25/2019 Hospital #: [id number] : 1990 Room: [address] [place] [address] #: [id number] Sex: M Tech: Gary Calvillo Ordering Physician: [id number] HOLDEN HINTON Height: 57.00 in Sys BP: 124 MARLENE cc: , Weight: 264.00 Nidia BP: 79 Reading Physician: [id number] Kate Marrero MD/ Rhythm: Electronically Signed by: [id number] Kate Marrero MD BSA: 2.02 m on: [...] LA Index (BP) 29.8 ml/m TAPSE LAESV MANAGER OF REVENUE NOTES: Definity (if used): 1ml Final IMPRESSION: Poor quality, apical views borderline nondiagnostic. Definity given [address] [address] [place] [address] ---- ECHOCARDIOGRAPHY REPORT - [facility] ---- Name: FAHAD BERNABE Age: 28 years Date: 02/25/2019 [facility] #: [id number] : 1990 Room: [address] [place] [address] #: [id number] Sex: M Tech: Gary Shaw Rajinder Ordering Physician: [id number] HOLDEN HINTON Height: 57.00 in Sys BP: 124 MARLENE cc: , Weight: 264.00 Nidia BP: 79 Reading Physician: [id number] Marrero MD/ Rhythm: Electronically Signed by: Basilia [...] LA Index (BP) 29.8 ml/m TAPSE LAESV MANAGER OF REVENUE NOTES: Definity (if used): 1ml Final [facility] Poor quality, apical views borderline nondiagnostic. Definity given [facility] Lynch Levelon 02-25-2019 Interpretation and review of laboratory results Abnormal [facility] Lynch [Moles/Vol] 0.5 mmol/L Low 0.6 - 1. 2 mmol/L [facility] POC ARTERIAL BLOOD GAS PANEL -[facility] 02-25-2019 Base excess Calc (Bld) [Moles/Vol] 12.9 mmol/L High [facility] Breath rate setting Ventilator synchronized intermittent mandatory [facility] CO2 (B[facility]) [Partial pressure] 71.3 mm[Hg] High [facility] HCO3 (Bld) [Moles/Vol] 41.1 mmol/L High 22 - 26 mmol /L [facility] Hematocrit (BldA) [Volume fraction] 37.2 % Low 41 - 53 % [facility] Hemoglobin (Bld) [Mass/Vol] 12.1 g/dL Low 13.5 - 18 g/dL [facility] Inhaled oxygen concentration 0 % [facility] Inhaled oxygen flow rate 4 L/min [facility] Interpretation and review of laboratory results Abnormal [facility] Oxygen (Bld) [Partial pressure] 94 mm[Hg] [facility] pH (Bld) 7.37 [pH] [facility] SaO2% (BldA) [Mass fraction] 97.2 % 92 - 99 % [facility] Specimen source Nom (Unsp spec) Radial, left [facility] Tidal volume setting Ventilator 0 [facility] Base excess Calc (Bld) [Moles/Vol] 9.5 mmol/L High [facility] Breath rate setting Ventilator synchronized intermittent mandatory [facility] CO2 (Bld) [Partial pressure] 61.8 mm[Hg] High [facility] HCO3 (Bld) [Moles/Vol] 36.7 mmol/L High 22 - 26 mmol /L [facility] Hematocrit (BldA) [Volume fraction] 37.1 % Low 41 - 53 % [facility] Hemoglobin (Bld) [Mass/Vol] 12.1 g/dL Low 13.5 - 18 g/dL [facility] Inhaled oxygen concentration 0 % [facility] Inhaled oxygen flow rate 2 L/min [facility] Interpretation and review of laboratory results Abnormal [facility] Oxygen (Bld) [Partial pressure] 73 mm[Hg] Low [facility] pH (Bld) 7.38 [pH] [facility] SaO2% (BldA) [Mass fraction] 95.2 % 92 - 99 % [facility] Specimen source Nom (Unsp spec) Radial, left [facility] Tidal volume setting Ventilator 0 [facility] XR MODIFIED BARIUM SWALLOWon 02-25-2019 Recommendation is diet per Speech Pathology. Modified barium swallow study as described above. Please see Speech Pathologist report for complete details. MWK/pji Workstation ID: [id number] [facility] EXAMINATION: XR MODIFIED BARIUM SWALLOW HISTORY: [...] 506. FINDINGS: The oral phase demonstrated slow csmzgufw-ko-hegkvcu or transit with posterior fall off into the pharynx with large volumes. The pharyngeal phase demonstrated no significant residue was seen following swallowing. There was some flash penetration seen with the thin liquid when a large volume was ingested. Aspiration was not seen during the examination. [facility] Interface, Rad In Fuji Speechq - [...] 506. FINDINGS: The oral phase demonstrated slow cbkhuocv-sg-fnmvyds or transit with posterior fall off into [...] for complete details. KASSIEK/tania Workstation ID: [id number] [facility] CBC WITH AUTO DIFFERENTIALon 02-24-2019 Basophils (Bld) [#/Vol] 0.02 10*3/uL [facility] Basophils/100 WBC (Bld) 0.3 % [facility] Eosinophils (Bld) [#/Vol] 0.04 10*3/uL [facility] Eosinophils/100 WBC (Bld) 0.7 % [facility] Erythrocyte distribution width (RBC) [Entitic vol] 14.7 % 11.6 - 14.8 % [facility] Hematocrit (Bld) [Volume fraction] 38.2 % Low 41 - 53 % [facility] Hemoglobin (Bld) [Mass/Vol] 11.8 g/dL Low 13.5 - 17.5 g/dL [facility] Immature granulocytes (Bld) [#/Vol] 0.05 10*3/uL [facility] Immature granulocytes/100 WBC (Bld) 0.80 % [facility] Comment on above: The IG parameter is the percentage of metamyelocytes, myelocytes, and promyelocytes. Interpretation and review of laboratory results Abnormal [facility] Lymphocytes (Bld) [#/Vol] 1.37 10*3/uL [facility] Lymphocytes/100 WBC (Bld) 23.2 % [facility] MCH (RBC) [Entitic mass] 32.2 pg 26 - 34 pg [facility] MCHC (RBC) [Mass/Vol] 30.9 g/dL Low 31 - 37 g/dL [facility] MCV (RBC) [Entitic vol] 104.1 fL High 80 - 100 fL [facility] Monocytes (Bld) [#/Vol] 0.55 10*3/uL [facility] Monocytes/100 WBC (Bld) 9.3 % [facility] Neutrophils (Bld) [#/Vol] 3.87 10*3/uL [facility] Neutrophils/100 WBC (Bld) 65.7 % [facility] Nucleated RBC (Bld) [#/Vol] 0.00 10*3/uL [facility] Nucleated RBC/100 WBC (Bld) [Ratio] 0.0 % [facility] Platelet mean volume (Bld) [Entitic vol] 9.4 fL 9 - 15.5 fL [facility] Platelets (Bld) [#/Vol] 233 10*3/uL [facility] RBC (Bld) [#/Vol] 3.67 10*6/uL Low [facility] WBC (Bld) [#/Vol] 5.90 10*3/uL [facility] Comprehensive Metabolic Pane rachel 02-24-2019 Albumin [Mass/Vol] 2.8 g/dL Low 3.2 - 5.2 g/dL [facility] ALP [Catalytic activity/Vol] 80 U/L 40 - 140 U/L [facility] ALT [Catalytic activity/Vol] 20 U/L 14 - 65 U/L [facility] Anion gap [Moles/Vol] 7 mmol/L Low 10 - 20 mmol/L [facility] AST [Catalytic activity/Vol] 12 U/L 0 - 45 U/L [facility] Bilirubin [Mass/Vol] 0.2 mg/dL 0 - 1.3 mg/dL [facility] Calcium [Mass/Vol] 8.8 mg/dL 8.4 - 10. 2 mg/dL [facility] Chloride [Moles/Vol] 106 mmol/L 98 - 10 8 mmol/L [facility] Creatinine [Mass/Vol] 1.26 mg/dL 0.5 - 1.3 mg/dL [facility] GFR/1.73 sq M predicted among non-blacks MDRD (S/P/Bld) [Vol rate/Area] The eGFR should be used for monitoring renal function only and not for medication dosing. [facility] GFR/1.73 sq M.predicted CKD-EPI (S/P/Bld) [Vol rate/Area] 78 >=60 mL/min/1.73 m2 [facility] Glucose [Mass/Vol] 99 mg/dL 65 - 99 mg/dL [facility] HCO3 [Moles/Vol] 34 mmol/L High 21 - 32 mmol/L [facility] Interpretation and review of laboratory results Abnormal [facility] Potassium [Moles/Vol] 4.3 mmol/L 3.5 - 5.1 mmol/L [facility] Protein [Mass/Vol] 7.8 g/dL 6 - 8 g/dL [facility] Sodium [Moles/Vol] 143 mmol/L 135 - 145 mmol/L [facility] Urea nitrogen [Mass/Vol] 12 mg/dL 8 - 25 mg/dL [facility] Urea nitrogen/Creatinine [Mass ratio] 9.5 mg/mg Low [facility] Hemoglobin A1con 02-24-2019 Average glucose Estimated from glycated hemoglobin mass conc (Bld) 117 mg/dL High 68 - 114 mg/dL [facility] HbA1c (Bld) [Mass fraction] 5.7 % High 4 - 5.6 % [facility] Interpretation and review of laboratory results Abnormal [facility] Normal: 4.0% - 5.6% Increased risk for diabetes: 5.7% - 6.4% Diabetes: >= 6.5% Pediatrics: No established reference range Estimated average glucose: 68-114 mg/dL [facility] INFLUENZA A,B RAPID MOLECULA Jesus 02-24-2019 FLUAV RNA EDER+probe Ql (Unsp spec) Not Detected Not Detected [facility] FLUBV RNA EDER+probe Ql (Unsp spec) Not Detected Not Detected [facility] Interpretation and review of laboratory results Normal [facility] Test Method: Nucleic Acid Amplification [facility] LEGIONELLA ANTIGEN, URINEon 02-24-2019 L. pneumophila Ag Ql (U) Negative Negative for Legionella antigen [facility] Comment on above: COMMENT: Results may be affected if patient is on diuretics. INTERPRETATION OF RESULTS: Test detects Legionella pneumophilia serogroup 1 antigens in urine. Legionnaires disease cannot be ruled out since other serogroups and species may also cause disease. Magnesiumon 02-24-2019 Magnesium [Mass/Vol] 2.2 mg/dL 1.6 - 2 .4 mg/dL [facility] Otheron 02-24-2019 Interpretation and review of laboratory results Normal [facility] Interpretation and review of laboratory results Normal [facility] Phosphoruson 02-24-2019 Phosphate [Mass/Vol] 4.1 mg/dL 2.7 - 4 .5 mg/dL [facility] S.PNEUMONIAE URINE ANTIGENon 02-24-2019 S. pneumoniae Ag Ql (U) Negative Pres umptive Negative for Pneumococcal pneumoniae [facility] Comment on above: A negative result jimenes ggests no current or recent pneumococcal infection. A negative result does not rule out Streptococcus pneumoniae infection since the antigen present in the sample may be below the detection limit of the test. TSHon 02-24-2019 TSH Qn 2.18 m[IU]/L [facility] Valproic Acid Levelon 2019 Interpretation and review of laboratory results Abnormal [facility] Valproate [Mass/Vol] 47 ug/mL Low [facility] Alcohol, Medicalon 0 Ethanol [Mass/Vol] mg/dL <10.00 mg/dL [facility] Comment on above: Alcohol cutoff: <10. 00 mg/dL = None Detected Interpretation and review of laboratory results Normal [facility] Ammoniaon 02-23-2019 Ammonia (P) [Mass/Vol] 43 ug/dL [facility] Interpretation and review of laboratory results Normal [facility] BMPon 02-23-2019 Anion gap [Moles/Vol] 10 mmol/L 10 - 20 mmol/L [facility] Calcium [Mass/Vol] 8.3 mg/dL Low 8.4 - 10. 2 mg/dL [facility] Chloride [Moles/Vol] 108 mmol/L 98 - 10 8 mmol/L [facility] Creatinine [Mass/Vol] 1.20 mg/dL 0.5 - 1.3 mg/dL [facility] GFR/1.73 sq M predicted among non-blacks MDRD (S/P/Bld) [Vol rate/Area] The eGFR should be used for monitoring renal function only and not for medication dosing. [facility] GFR/1.73 sq M.predicted CKD-EPI (S/P/Bld) [Vol rate/Area] 83 >=60 mL/min/1.73 m2 [facility] Glucose [Mass/Vol] 104 mg/dL High 65 - 99 mg/dL [facility] HCO3 [Moles/Vol] 30 mmol/L 21 - 32 mmol/L [facility] Potassium [Moles/Vol] 4.8 mmol/L 3.5 - 5.1 mmol/L [facility] Sodium [Moles/Vol] 143 mmol/L 135 - 145 mmol/L [facility] Urea nitrogen [Mass/Vol] 15 mg/dL 8 - 25 mg/dL [facility] Urea nitrogen/Creatinine [Mass ratio] 12.5 mg/mg [facility] CBC WITH AUTO DIFFERENTIALon 02-23-2019 Basophils (Bld) [#/Vol] 0.03 10*3/uL [facility] Basophils/100 WBC (Bld) 0.3 % [facility] Eosinophils (Bld) [#/Vol] 0.04 10*3/uL [facility] Eosinophils/100 WBC (Bld) 0.4 % [facility] Erythrocyte distribution width (RBC) [Entitic vol] 14.4 % 11.6 - 14.8 % [facility] Hematocrit (Bld) [Volume fraction] 35.1 % Low 41 - 53 % [facility] Hemoglobin (Bld) [Mass/Vol] 10.9 g/dL Low 13.5 - 17.5 g/dL [facility] Immature granulocytes (Bld) [#/Vol] 0.02 10*3/uL [facility] Immature granulocytes/100 WBC (Bld) 0.20 % [facility] Comment on above: The IG parameter is the percentage of metamyelocytes, myelocytes, and promyelocytes. Interpretation and review of laboratory results Abnormal [facility] Lymphocytes (Bld) [#/Vol] 1.22 10*3/uL [facility] Lymphocytes/100 WBC (Bld) 11.1 % [facility] MCH (RBC) [Entitic mass] 32.3 pg 26 - 34 pg [facility] MCHC (RBC) [Mass/Vol] 31.1 g/dL 31 - 37 g/dL [facility] MCV (RBC) [Entitic vol] 104.2 fL High 80 - 100 fL [facility] Monocytes (Bld) [#/Vol] 0.89 10*3/uL [facility] Monocytes/100 WBC (Bld) 8.1 % [facility] Neutrophils (Bld) [#/Vol] 8.75 10*3/uL High [facility] Neutrophils/100 WBC (Bld) 79.9 % [facility] Platelet mean volume (Bld) [Entitic vol] 9.0 fL 9 - 15.5 fL [facility] Platelets (Bld) [#/Vol] 241 10*3/uL [facility] RBC (Bld) [#/Vol] 3.37 10*6/uL Low [facility] WBC (Bld) [#/Vol] 10.95 10*3/uL [facility] CT HEAD OR BRAIN WITHOUT CON TRASTon 02-23-2019 EXAMINATION: CT HEAD OR BRAIN WITHOUT CONTRAST 02/23/2019 COMPARISON: None. HISTORY: Injury/Trauma or Illness?:Illness/Ot her How long have you had these symptoms (acute/chronic)?:[place] Altered mental status Pt having trouble staying [...] cells are clear. No acute osseous abnormality. [facility] Interface, Rad In Joeli Speechq - 02/23/2019 3:59 PM EST EXAMINATION: CT HEAD OR BRAIN WITHOUT CONTRAST 02/23/2019 COMPARISON: None. HISTORY: Injury/Trauma or Illness?:Illness/Ot her How long have you had these symptoms (acute/chronic)?:[place] Altered mental status Pt having trouble staying [...] medication. Correlate clinically. GJT/lab Workstation ID: [id number] [facility] 1. No acute intracranial abnormality identified. 2. Mild cerebral and cerebellar atrophy greater than typically seen for patient's age. This may be on the basis of chronic use of antiseizure medication. Correlate clinically. GJT/lab Workstation ID: [id number] [facility] DRUGS OF ABUSE SCREEN, URINE on 02-23-2019 Amphetamines Ql (U) None Detected None Detected [facility] Comment on above: Urine Amphetamine Cu toff: < 1000 ng/mL = None Detected Barbiturates Screen Ql (U) None Detected None Detected [facility] Comment on above: Urine Barbiturates C utoff: < 200 ng/mL = None Detected Benzodiazepines Ql (U) None Detected None Detec shayy [facility] Comment on above: Urine Benzodiazepine Cutoff: < 200 ng/mL = None Detected Cannabinoids Screen Ql (U) None Detected None Detected [facility] Comment on above: Urine Cannabinoids C utoff: < 50 ng/mL = None Detected Cocaine Ql (U) None Detected None Detected [facility] Comment on above: Urine Cocaine Cutoff : < 300 ng/mL = None Detected Interpretation and review of laboratory results Normal [facility] Methadone Screen Ql (U) None Detected None Dete cted [facility] Comment on above: Urine Methadone Cuto ff: < 300 ng/mL = None Detected Opiates Screen Ql (U) None Detected None Detect ed [facility] Comment on above: Urine Opiates Cutoff : < 300 ng/mL = None Detected Oxycodone Ql (U) None Detected None Detected [facility] Comment on above: Urine Oxycodone Cuto ff: < 100 ng/mL = None Detected Screen results should be used for treatment purposes only. [facility] ECG 12-LEADon 02-23-2019 Atrial Rate 80 BPM [facility] P Sutton 34 degrees [facility] P-R Interval 194 ms [facility] Q-T Interval 400 ms [facility] QRS Duration 122 ms [facility] QTC Calculation (Bezet) 461 ms [facility] R [place] 43 degrees [facility] T [place] 62 degrees [facility] Ventricular Rate 80 BPM [facility] ECG Cart Interpretation see physician note for interpretation. Normal sinus rhythm Right bundle branch block Cannot rule out Inferior infarct , age undetermined Abnormal ECG Confirmed by Agata Johnston ([id number]) on 02/23/2019 3:42:27 PM [facility] Hepatic Function Panel (LFT) on 02-23-2019 Albumin [Mass/Vol] 2.6 g/dL Low 3.2 - 5.2 g/dL [facility] ALP [Catalytic activity/Vol] 73 U/L 40 - 140 U/L [facility] ALT [Catalytic activity/Vol] 21 U/L 14 - 65 U/L [facility] AST [Catalytic activity/Vol] 18 U/L 0 - 45 U/L [facility] Bilirubin [Mass/Vol] 0.1 mg/dL 0 - 1.3 mg/dL [facility] Bilirubin.conjugated [Mass/Vol] mg/dL 0 - 0.4 mg/dL [facility] Protein [Mass/Vol] 7.4 g/dL 6 - 8 g/dL [facility] Lactic Acid, Plasmaon 2019 Interpretation and review of laboratory results Normal [facility] Lactate [Moles/Vol] 0.7 mmol/L 0.6 - 2 mmol/L [facility] Lipaseon 02-23-2019 Lipase [Catalytic activity/Vol] 129 U/L 73 - 393 U/L [facility] NT Pro BNPon 02-23-2019 Interpretation and review of laboratory results Normal [facility] Natriuretic peptide.B prohormone N-Terminal [Mass/Vol] 252 pg/mL 0 - 300 pg/mL [facility] Pride Study Cut-offs Rule In: < /= 50 Years >450 pg/mL 51 Years - 75 Years >900 pg/mL 76 Years - 99 Years >1800 pg/mL Rule Out: All patients <300 pg/mL [facility] Otheron 02-23-2019 Interpretation and review of laboratory results Abnormal [facility] Interpretation and review of laboratory results Normal [facility] Base excess Calc (Bld) [Moles/Vol] 5.8 mmol/L High [facility] Breath rate setting Ventilator synchronized intermittent mandatory 0 [facility] CO2 (Bld) [Partial pressure] 56.6 mm[Hg] High [facility] HCO3 (Bld) [Moles/Vol] 32.5 mmol/L High 22 - 26 mmol /L [facility] Hematocrit (BldA) [Volume fraction] 35.0 % Low 41 - 53 % [facility] Hemoglobin (Bld) [Mass/Vol] 11.4 g/dL Low 13.5 - 18 g/dL [facility] Inhaled oxygen concentration 0 % [facility] Interpretation and review of laboratory results Abnormal [facility] [facility] Oxygen (Bld) [Partial pressure] 82 mm[Hg] [facility] pH (Bld) 7.37 [pH] [facility] SaO2% (BldA) [Mass fraction] 96.7 % 92 - 99 % [facility] Tidal volume setting Ventilator 0 [facility] POC Arterial Blood Gaseson 0 02-23-2019 Base Excess, Arterial 5 High [facility] CO2 (Bld) [Partial pressure] 64.2 mm[Hg] High [facility] HCO3 (Bld) [Moles/Vol] 33.1 mmol/L High 22 - 26 mmol /L [facility] Hematocrit (Bld) [Volume fraction] 34 % Low 41 - 53 % [facility] Hemoglobin (Bld) [Mass/Vol] 11.6 g/dL Low 13.5 - 17.5 g/dL [facility] Interpretation and review of laboratory results Abnormal [facility] Oxygen (Bld) [Partial pressure] 76 mm[Hg] Low [facility] pH (Bld) 7.32 [pH] Low [facility] SaO2% (BldA) [Mass fraction] 93.0 % 92 - 99 % [facility] POC Glucoseon 02-23-2019 Glucose [Mass/Vol] 100 mg/dL Abnormal 65 - 99 mg/dL [facility] Interpretation and review of laboratory results Abnormal [facility] Glucose [Mass/Vol] 100 mg/dL High 65 - 99 mg/dL [facility] Interpretation and review of laboratory results Abnormal [facility] PT/INRon 02-23-2019 INR Coag (PPP) [Relative time] 1.1 {INR} [facility] Interpretation and review of laboratory results Normal [facility] PT Coag (PPP) [Time] 13.8 s [facility] During the induction phase of oral anticoagulation, the INR may not reflect the anticoagulation status of the patient. Therapeutic ranges for INR's are: Most clinical situations: INR 2.0-3.0 Mechanical Prosthetic Valve: INR 2.5-3.5 Critical: INR >5.0 [facility] TSH with Reflex Free T4on TSH Qn 1.01 m[IU]/L [facility] URINALYSISon 02-23-2019 Bacteria Auto Ql (U) Rare Abnormal None Seen /hpf [facility] Bilirubin Ql (U) Negative Negative [facility] Clarity Refractometry automated (U) Clear Clear [facility] Color (U) Yellow Colorless, Yellow [facility] Epithelial cells.squamous Auto (Urine sed) [#/Area] 1 [facility] Glucose Auto test strip (U) [Mass/Vol] Negative Negative mg/dL [facility] Hemoglobin Auto test strip Ql (U) Negative Negative [facility] Interpretation and review of laboratory results Abnormal [facility] Ketones (U) [Mass/Vol] Negative Negative mg/d L [facility] Leukocyte esterase Auto test strip Ql (U) Negative Negative [facility] Nitrite Auto test strip Ql (U) Negative Negative [facility] pH (U) 6.0 [pH] [facility] Protein (U) [Mass/Vol] Negative Negative mg/d L [facility] Specific gravity (U) [Rel density] 1.015 [facility] Urobilinogen (U) [Mass/Vol] <2.0 <2.0 mg/dL [facility] WBC Auto (Urine sed) [#/Area] 1 [facility] Microscopic examination is performed on all urinalysis samples and only positive findings are reported. The test for blood on the chemical analytic portion of urinalysis may also be positive due to hemoglobinuria and myoglobinuria and if red blood cells are present they are quantified by microscopic examination. [facility] Valproic Acid Levelon 2019 Interpretation and review of laboratory results Normal [facility] Valproate [Mass/Vol] 72 ug/mL [facility] XR Chest 1 Viewon 02-23-2019 EXAMINATION: 1 VIEW XR CHEST PA/AP, 02/23/2019 COMPARISON: Chest, 01/06/2018 HISTORY: Injury/Trauma or Illness?:Illness/Ot her How long have you had these symptoms (acute/chronic)?:[place] Altered mental status [facility] 1. Mild diffuse interstitial edema and/or mild inflammatory infectious pneumonitis. Correlate clinically. 2. Mild prominent cardiac silhouette slightly accentuated due to patient rotation to the left. 3. No acute osseous abnormality. [employer] Workstation ID: [id number] [facility] Interface, Rad In [facility] Speechq - 02/23/2019 3:59 PM EST EXAMINATION: 1 VIEW XR CHEST PA/AP, 02/23/2019 COMPARISON: Chest, 01/06/2018 HISTORY: Injury/Trauma or Illness?:Illness/Ot her How long have you had these symptoms (acute/chronic)?:[place] Altered mental status IMPRESSION: 1. Mild diffuse interstitial edema and/or mild inflammatory infectious pneumonitis. Correlate clinically. 2. Mild prominent cardiac silhouette slightly accentuated due to patient rotation to the left. 3. No acute osseous abnormality. [employer] Workstation ID: [id number] [facility] CBC, EDIF, PLATELETon 2017 ABSOLUTE BASOPHIL COUNT 0.0 Invalid Interpretation Code X10 [address] Comment on above: Testing performed at [place], [place] [address] Basophils/100 WBC Auto (Bld) 0.1 % Invalid Interpretation Code 0 - 2 % [address] Differential cell count method Nom (Bld) AUTO DIFF Invalid Interpretation Code % [address] Eosinophils Auto #/vol (Bld) 0.00 10*3/uL Invalid Interpretation Code X10 [address] Eosinophils/100 WBC Auto (Bld) 0.0 % Invalid Interpretation Code 0 - 11 % [address] Erythrocyte distribution width Ratio (RBC) 15.3 % High 11.5 - 14.5 % [address] Hematocrit Auto Volume Fraction (Bld) 35.6 % Low 42 - 52 % [address] Hemoglobin mass conc (Bld) 11.7 g/dL Low [address] Lymphocytes Manual cnt #/vol (Bld) 1.50 Invalid Interpretation Code X10 [address] Lymphocytes/100 WBC Auto (Bld) 16.7 % Low 20 - 55 % [address] MCH Auto Entitic mass (RBC) 33.1 pg Invalid Interpretation Code 26 - [address] MCHC Auto mass conc (RBC) 32.8 g/dL Invalid Interpretation Code [address] MCV Auto Entitic volume (RBC) 101.2 fL High [address] Monocytes Manual cnt #/vol (Bld) 0.5 Invalid Interpretation Code X10 [address] Monocytes/100 WBC Auto (Bld) 5.2 % Invalid Interpretation Code 0 - 10 % [address] Neutrophils Auto #/vol (Bld) 7.0 10*3/uL Invalid Interpretation Code [address] Neutrophils/100 WBC Auto (Bld) 78.0 % High 37 - 75 % [address] Platelet mean volume Auto Entitic volume (Bld) 7.6 fL Invalid Interpretation Code [address] Platelets Auto #/vol (Bld) 213 10*3/uL Invalid Interpretation Code [address] RBC Auto #/vol (Bld) 3.52 10*6/uL Low [place] [address] WBC Auto #/vol (Bld) 9.0 10*3/uL Invalid Interpretation Code [facility] - [address] CHEST WITHOUT CONTRASTon 01-08-2018 EXAM: [...] 01-08-2018 Magnesium mass conc 2.4 mg/dL High [address] Comment on above: Testing performed at [facility], [place], [place] [address] Otheron 01-08-2018 Interpretation and review of laboratory results Abnormal Invalid Interpretation Code [address] RENAL FUNCTION PANELon 01-08 Albumin mass conc 3.5 G/dl Invalid Interpretation Code 3.5 - 5 G/dl [address] Calcium mass conc 8.8 mg/dL Invalid Interpretation Code [address] Chloride molar conc 113 mmol/L High [address] Comment on above: Please note: Triglyc eride levels of 600mg/dL or higher may positively bias chloride results by approximately 2.1 mmol CO2 molar conc 28 mmol/L Invalid Interpretation Code [address] Creatinine mass conc 1.0 mg/dL Invalid Interpretation Code [address] GFR/1.73 sq M predicted among blacks MDRD vol rate/area (S/P/Bld) mL/min/{1.73_m2} Invalid Interpretation Code ml/min/1.73sq. m [address] GFR/1.73 sq M predicted among non-blacks MDRD vol rate/area (S/P/Bld) Average GFR for 20-29 years old = 116. Invalid Interpretation Code [address] Comment on above: Chronic Kidney disea se, GFR = <60. Kidney failure, GFR = <15. The GFR estimate is not adjusted for extreme body surface area or acute process, nor has it been validated for women or ethnic groups other than and . Testing performed at [place], [place] [address] GFR/1.73 sq M predicted among non-blacks MDRD vol rate/area (S/P/Bld) mL/min/{1.73_m2} Invalid Interpretation Code ml/min/1.73sq. m [address] Glucose fasting mass conc 106 mg/dL [address] Comment on above: NORMAL <100 mg/dL PA EDIABETES 101-126 mg/dL DIABETES 126 mg/dL or higher Phosphate mass conc 3.0 mg/dL Invalid Interpretation Code [address] Potassium molar conc 4.4 mmol/L Invalid Interpretation Code [address] Sodium molar conc 145 mmol/L Invalid Interpretation Code [address] Urea nitrogen mass conc 11 mg/dL Invalid Interpretation Code [address] CBC, EDIF, PLATELETon 2017 ABSOLUTE BASOPHIL COUNT 0.0 Invalid Interpretation Code X10 [address] Comment on above: Testing performed at [place], [place] [address] Basophils/100 WBC Auto (Bld) 0.1 % Invalid Interpretation Code 0 - 2 % [address] Differential cell count method Nom (Bld) AUTO DIFF Invalid Interpretation Code % [address] Eosinophils Auto #/vol (Bld) 0.00 10*3/uL Invalid Interpretation Code X10 [address] Eosinophils/100 WBC Auto (Bld) 0.0 % Invalid Interpretation Code 0 - 11 % [address] Erythrocyte distribution width Ratio (RBC) 15.4 % High 11.5 - 14.5 % [address] Hematocrit Auto Volume Fraction (Bld) 35.0 % Low 42 - 52 % [address] Hemoglobin mass conc (Bld) 11.4 g/dL Low [address] Lymphocytes Manual cnt #/vol (Bld) 1.20 Invalid Interpretation Code X10 [address] Lymphocytes/100 WBC Auto (Bld) 9.7 % Low 20 - 55 % [address] MCH Auto Entitic mass (RBC) 32.9 pg Invalid Interpretation Code 26 - [address] MCHC Auto mass conc (RBC) 32.5 g/dL Invalid Interpretation Code [address] MCV Auto Entitic volume (RBC) 101.3 fL High [address] Monocytes Manual cnt #/vol (Bld) 0.6 Invalid Interpretation Code X10 [address] Monocytes/100 WBC Auto (Bld) 5.1 % Invalid Interpretation Code 0 - 10 % [address] Neutrophils Auto #/vol (Bld) 10.6 10*3/uL High [address] Neutrophils/100 WBC Auto (Bld) 85.1 % High 37 - 75 % [address] Platelet mean volume Auto Entitic volume (Bld) 7.4 fL Invalid Interpretation Code [address] Platelets Auto #/vol (Bld) 216 10*3/uL Invalid Interpretation Code [address] RBC Auto #/vol (Bld) 3.45 10*6/uL [address] WBC Auto #/vol (Bld) 12.5 10*3/uL [address] [facility] 12-15 L. pneumophila 1 Ag IA Ql (U) Negative Invalid Interpretation Code NEGATIVE [address] Comment on above: Testing performed at [place], [place] [address] MAGNESIUMon 01-07-2018 Magnesium mass conc 2.2 mg/dL Invalid Interpretation Code [address] Comment on above: Testing performed at [place] [id number] Otheron 01-07-2018 Interpretation and review of laboratory results Abnormal Invalid Interpretation Code [address] RENAL FUNCTION PANELon 01-07 Albumin mass conc 3.3 G/dl Low 3.5 - 5 G/dl [address] Calcium mass conc 8.3 mg/dL Low [address] Chloride molar conc 111 mmol/L High [address] Comment on above: Please note: Triglyc eride levels of 600mg/dL or higher may positively bias chloride results by approximately 2.1 mmol CO2 molar conc 27 mmol/L Invalid Interpretation Code [address] Creatinine mass conc 1.2 mg/dL Invalid Interpretation Code [address] GFR/1.73 sq M predicted among blacks MDRD vol rate/area (S/P/Bld) mL/min/{1.73_m2} Invalid Interpretation Code ml/min/1.73sq. m [address] GFR/1.73 sq M predicted among non-blacks MDRD vol rate/area (S/P/Bld) mL/min/{1.73_m2} Invalid Interpretation Code ml/min/1.73sq. m [address] GFR/1.73 sq M predicted among non-blacks MDRD vol rate/area (S/P/Bld) Average GFR for 20-29 years old = 116. Invalid Interpretation Code [address] Comment on above: Chronic Kidney disea se, GFR = <60. Kidney failure, GFR = <15. The GFR estimate is not adjusted for extreme body surface area or acute process, nor has it been validated for women or ethnic groups other than and . Testing performed at [place], [place] [address] Glucose fasting mass conc 109 mg/dL [address] Comment on above: NORMAL <100 mg/dL PA EDIABETES 101-126 mg/dL DIABETES 126 mg/dL or higher Phosphate mass conc 2.9 mg/dL Invalid Interpretation Code [address] Potassium molar conc 4.2 mmol/L Invalid Interpretation Code [address] Sodium molar conc 146 mmol/L High [address] Urea nitrogen mass conc 10 mg/dL Invalid Interpretation Code [address] STREP PNEUMONIAE ANTIGEN, UR INEon 01-07-2018 S. pneumoniae Ag Ql (U) Negative Invalid Interpretation Code NEGATIVE [address] Comment on above: Testing performed at [place], [place] [address] B-TYPE NATRIURETIC PEPTIDE ( BRAIN)on 01-06-2018 Natriuretic peptide B mass conc (Bld) 61 pg/mL Invalid Interpretation Code 0 - 100 pg/mL [address] Comment on above: Testing performed at [place], [place] [address] BASIC METABOLIC PANELon 12-15 Anion gap 3 molar conc 6 mmol/L Low [place] [address] Calcium mass conc 8.8 mg/dL Invalid Interpretation Code [address] Chloride molar conc 107 mmol/L Invalid Interpretation Code [address] Comment on above: Please note: Triglyc eride levels of 600mg/dL or higher may positively bias chloride results by approximately 2.1 mmol CO2 molar conc 30 mmol/L Invalid Interpretation Code [address] Creatinine mass conc 1.3 mg/dL High [address] GFR/1.73 sq M predicted among blacks MDRD vol rate/area (S/P/Bld) mL/min/{1.73_m2} Invalid Interpretation Code ml/min/1.73sq. m [address] GFR/1.73 sq M predicted among non-blacks MDRD vol rate/area (S/P/Bld) Average GFR for 20-29 years old = 116. Invalid Interpretation Code [address] Comment on above: Chronic Kidney disea se, GFR = <60. Kidney failure, GFR = <15. The GFR estimate is not adjusted for extreme body surface area or acute process, nor has it been validated for women or ethnic groups other than and . Testing performed at [place], [place] [address] GFR/1.73 sq M predicted among non-blacks MDRD vol rate/area (S/P/Bld) mL/min/{1.73_m2} Invalid Interpretation Code ml/min/1.73sq. m [address] Glucose fasting mass conc 121 mg/dL High [address] Comment on above: NORMAL <100 mg/dL PA EDIABETES 101-126 mg/dL DIABETES 126 mg/dL or higher Potassium molar conc 4.3 mmol/L Invalid Interpretation Code [address] Sodium molar conc 143 mmol/L Invalid Interpretation Code [address] Urea nitrogen mass conc 13 mg/dL Invalid Interpretation Code [address] C REACTIVE PROTEINon 018 CRP mass conc 200.1 mg/L High 0 - 10 MG/L [address] Comment on above: Testing performed at [place], [place] [address] CBC, EDIF, PLATELETon 2017 ABSOLUTE BASOPHIL COUNT 0.0 Invalid Interpretation Code X10 [address] Comment on above: Testing performed at [place], [place] [address] Basophils/100 WBC Auto (Bld) 0.3 % Invalid Interpretation Code 0 - 2 % [address] Differential cell count method Nom (Bld) AUTO DIFF Invalid Interpretation Code % [address] Eosinophils Auto #/vol (Bld) 0.00 10*3/uL Invalid Interpretation Code X10 [address] Eosinophils/100 WBC Auto (Bld) 0.0 % Invalid Interpretation Code 0 - 11 % [address] Erythrocyte distribution width Ratio (RBC) 15.3 % High 11.5 - 14.5 % [address] Hematocrit Auto Volume Fraction (Bld) 41.2 % Low 42 - 52 % [address] Hemoglobin mass conc (Bld) 13.5 g/dL Low [address] Lymphocytes Manual cnt #/vol (Bld) 1.00 Invalid Interpretation Code X10 [address] Lymphocytes/100 WBC Auto (Bld) 7.1 % Low 20 - 55 % [address] MCH Auto Entitic mass (RBC) 32.6 pg Invalid Interpretation Code 26 - [address] MCHC Auto mass conc (RBC) 32.7 g/dL Invalid Interpretation Code [address] MCV Auto Entitic volume (RBC) 99.7 fL Invalid Interpretation Code [address] Monocytes Manual cnt #/vol (Bld) 1.2 Invalid Interpretation Code X10 [address] Monocytes/100 WBC Auto (Bld) 8.5 % Invalid Interpretation Code 0 - 10 % [address] Neutrophils Auto #/vol (Bld) 11.5 10*3/uL High [address] Neutrophils/100 WBC Auto (Bld) 84.1 % High 37 - 75 % [address] Platelet mean volume Auto Entitic volume (Bld) 7.2 fL Low [address] Platelets Auto #/vol (Bld) 241 10*3/uL Invalid Interpretation Code [address] RBC Auto #/vol (Bld) 4.13 10*6/uL Invalid Interpretation Code [address] WBC Auto #/vol (Bld) 13.7 10*3/uL High [place] [address] INFLUENZA A AND B, PCRon FLUBV Ag IA Ql (Unsp spec) Negative Invalid Interpretation Code NEGATIVE [address] Comment on above: TESTING PERFORMED BY [facility] Testing performed at [place] [address] INFLUENZA A Negative Invalid Interpretation Code NEGATIVE [address] LACTATE, BLOODon 01-06-2018 Lactate molar conc 1.2 mmol/L Invalid Interpretation Code [address] Comment on above: Testing performed at [place] [address] LITHIUM LEVELon 01-06-2018 Interpretation and review of laboratory results Abnormal Invalid Interpretation Code [address] Lynch molar conc 0.40 mmol/L Low [address] Comment on above: Testing performed at [place] [id number] Otheron 01-06-2018 Interpretation and review of laboratory results Abnormal Invalid Interpretation Code [address] Interpretation and review of laboratory results Abnormal Invalid Interpretation Code [address] RESPIRATORY CULTUREon 2017 Bacteria identified Cx Nom (Unsp spec) USUAL OROPHARYNGEAL MARICRUZ Invalid Interpretation Code [address] Comment on above: MODERATE GROWTH Test ing performed at [place] [address] Microscopic observation Gram stain Nom (Unsp spec) MODERATE Invalid Interpretation Code [address] Comment on above: WBC'S SEEN FEW SQUAM OUS EPITHELIAL CELLS MODERATE MIXED GRAM POSITIVE MARICRUZ NONE APPEAR PREDOMINANT SPECIMEN IS OF LEAST ACCEPTABLE QUALITY REPORT STATUS 01/08/2018 Invalid Interpretation Code [address] Comment on above: FINAL SPECIMEN DESCRIPTION SPUTUM Invalid Interpretation Code [address] SCREEN: MRSA ONLY, NARES (IS OLATION SCREEN)on 01-06-2018 MRSA isol Org specific cx Ql (Nose) Negative Invalid Interpretation Code [address] STAPHYOCOCCUS AUREUS BY PCR Negative Invalid Interpretation Code [address] Comment on above: TESTING PERFORMED BY PCR Testing performed at [place] [address] SEDIMENTATION RATE, AUTOMATE Don 01-06-2018 ESR Velocity (Bld) 31 mm/h High [address] Comment on above: Testing performed at [place] [id number] TROPONINon 01-06-2018 Troponin I.cardiac mass conc ng/mL Invalid Interpretation Code 0 - 0.08 ng/mL [address] Comment on above: Testing performed at [place] [id number] TSHon 01-06-2018 Thyrotropin Qn 0.994 m[IU]/L Invalid Interpretation Code [address] Comment on above: Testing performed at [place] [id number] XR CHEST AP PORTABLEon 01-06 EXAM: XR [...] 68 mm[Hg] Liban Otero MD [facility] 05-27-2023 15:00-0400 Heart rate 75 /min Liban Otero MD [facility] Phone[facility] 05-27-2023 15:00-0400 SaO2% (BldA) [Mass fraction] 96 % Liban Otero MD Work Phone: [facility] [place] [facility] 05-27-2023 15:00-0400 Systolic blood pressure 124 mm[Hg] Liban Otero MD Work Phone: [facility] [place] [facility] 05-27-2023 14:49-0400 Respiratory rate 18 /min Liban Otero MD Work Phone: [facility] [place] [facility] 05-27-2023 14:17-0400 Body height 144.8 cm Liban Otero MD Work Phone: [facility] [employer] 05-27-2023 14:16-0400 Body temperature 98.6 [degF] Liban Otero MD Work Phone: [facility] [employer] 11-03-2022 10:00-0400 Body height 157.48 cm Martha Yi Other [employer] Other 11-03-2022 10:00-0400 Body mass index (BMI) [Ratio] 29.08 kg/m2 Martha Yi Other [employer] Other 11-03-2022 10:00-0400 Body weight 72.12 kg Martha Yi Other [employer] Other 12-02-2021 12:30-0400 Body height 157.48 cm Thiago Chandler Other [employer] Other 12-02-2021 12:30-0400 Body mass index (BMI) [Ratio] 29.08 kg/m2 Thiago Chandler Other [employer] Other 12-02-2021 12:30-0400 Body temperature 97.1 [degF] Thiago Chandler Other [employer] Other 12-02-2021 12:30-0400 Body weight 72.12 kg Thiago Chandler Other [employer] Other 12-02-2021 12:30-0400 Diastolic blood pressure 78 mm[Hg] Thiago Chandler Other [employer] Other 12-02-2021 12:30-0400 SaO2% (BldA) [Mass fraction] 100 % Thiago Ramesh Other [employer] Other 12-02-2021 12:30-0400 Systolic blood pressure 114 mm[Hg] Thiago Chandler Other [employer] Other 11-04-2021 11:00-0400 Body height 157.48 cm Martha Yi Other [employer] Other 11-04-2021 11:00-0400 Body mass index (BMI) [Ratio] 29.28 kg/m2 Martha Yi Other [employer] Other 11-04-2021 11:00-0400 Body weight 72.62 kg Martha Yi Other [employer] Other 08-05-2021 14:00-0400 Body height 144.78 cm Thiago Chandler Other [employer] Other 08-05-2021 14:00-0400 Body mass index (BMI) [Ratio] 32.46 kg/m2 Thiago Ramesh Other [employer] Other 08-05-2021 14:00-0400 Body temperature 97 [degF] Thiago Ramesh Other [employer] Other 08-05-2021 14:00-0400 Body weight 68.04 kg Thiago Ramesh Other [employer] Other 08-05-2021 14:00-0400 Diastolic blood pressure 73 mm[Hg] Thiago Ramesh Other [employer] Other 08-05-2021 14:00-0400 SaO2% (BldA) [Mass fraction] 97 % Thiago Ramesh Other [employer] Other 08-05-2021 14:00-0400 Systolic blood pressure 110 mm[Hg] Thiago Ramesh Other [employer] Other 05-27-2021 09:30-0400 Body height 152.4 cm Franck Carballo MD Work Phone: [facility] 05-27-2021 09:30-0400 Body mass index (BMI) [Ratio] 30.47 kg/m2 Franck Carballo MD Work Phone: [facility] 05-27-2021 09:30-0400 Body weight 70.76 kg Franck Carballo MD Work Phone: [facility] 05-27-2021 09:30-0400 Diastolic blood pressure 69 mm[Hg] Franck Carballo MD Work Phone: [facility] 05-27-2021 09:30-0400 Heart rate 97 /min Franck Carballo MD Work Phone: [facility] 05-27-2021 09:30-0400 SaO2% (BldA) [Mass fraction] 91 % Franck Carballo MD Work Phone: [facility] 05-27-2021 09:30-0400 Systolic blood pressure 105 mm[Hg] Franck Carballo MD Work Phone: [facility] 03-01-2019 08:00-0500 Respiratory Rate 16 /min [facility] 03-01-2019 07:23-0500 BP Diastolic 69 mm[Hg] [facility] 03-01-2019 07:23-0500 BP Systolic 100 mm[Hg] [facility] 03-01-2019 07:23-0500 Pulse (Heart Rate) 91 /min [facility] 03-01-2019 07:23-0500 Pulse Oximetry 100 % [facility] 03-01-2019 06:00-0500 BMI (Body Mass Index) 44.56 kg/m2 [facility] 03-01-2019 06:00-0500 Body weight 93.4 kg [facility] Comment on above: standing weight 03-01-2019 04:01-0500 Body Temperature 98.8 [degF] [facility] 02-25-2019 14:40-0500 Respiratory rate 17 /min [facility] 02-25-2019 10:56-0500 Respiratory rate 0 /min [facility] [facility] 02-23-2019 21:56-0500 Respiratory rate 0 /min [facility] 02-23-2019 18:33-0500 BP Diastolic 78 mm[Hg] [facility] 02-23-2019 18:33-0500 BP Systolic 139 mm[Hg] Iftikhar Kemp [facility] 02-23-2019 18:33-0500 Pulse (Heart Rate) 78 /min Iftikhar Kemp [facility] 02-23-2019 18:33-0500 Pulse Oximetry 99 % Iftikhar Kemp [facility] 02-23-2019 18:33-0500 Respiratory Rate 16 /min Iftikhar Kemp [facility] 02-23-2019 13:38-0500 BMI (Body Mass Index) 43.28 kg/m2 Iftikhar Kemp [facility] 02-23-2019 13:38-0500 Body Temperature 97.39 [degF] Iftikhar Kemp [facility] 02-23-2019 13:38-0500 Body weight 90.72 kg Iftikhar Kemp [facility] 02-23-2019 13:38-0500 Height 144.8 cm Iftikhar Kemp [facility] 01-08-2018 11:54-0500 Body Temperature 98.01 [degF] [facility] Work Phone: 01-08-2018 11:54-0500 BP Diastolic 48 mm[Hg] [facility] Work Phone: 01-08-2018 11:54-0500 BP Systolic 115 mm[Hg] [facility] Work Phone: 01-08-2018 11:54-0500 Pulse (Heart Rate) 75 /min [facility] Work Phone: 01-08-2018 11:54-0500 Pulse Oximetry 97 % [facility] Work Phone: 01-08-2018 11:54-0500 Respiratory Rate 18 /min [facility] Work Phone: 01-08-2018 03:51-0500 BMI (Body Mass Index) 45.89 kg/m2 [facility] Work Phone: 01-08-2018 03:51-0500 Weight 96.2 kg [facility] Work Phone: 01-06-2018 16:24-0500 Height 144.8 cm [facility] Work Phone: Encounters Encounter Date Encounter Type Care Provider Facility Start: 09-21-2023 End: 09-21-2023 ambulatory DO Iftikhar Kemp Work Phone: [facility] Work Phone: Start: 09-21-2023 End: 09-21-2023 Patient encounter procedure DO Iftikhar Kemp Work Phone: [facility] Work Phone: Start: 09-21-2023 End: 09-21-2023 Patient encounter procedure DO Iftikhar Kemp Work Phone: [facility] Start: 09-21-2023 End: 09-21-2023 ambulatory DO Iftikhar Kemp Work Phone: [facility] Work Phone: Start: 09-07-2023 End: 09-07-2023 ambulatory [facility] Work Phone: Start: 09-07-2023 End: 09-07-2023 Patient encounter procedure [facility] Work Phone: Start: 07-04-2023 End: 07-05-2023 ambulatory IFTIKHAR KEMP Facility:[facility] Start: 07-04-2023 End: 07-04-2023 Patient encounter procedure IFTIKHAR KEMP [facility] Start: 05-27-2023 End: 05-27-2023 Emergency department patient visit IFTIKHAR KEMP [facility] Start: 05-27-2023 End: 05-27-2023 Emergency department patient visit Liban Otero MD Work Phone: [facility] Start: 05-10-2023 End: 05-11-2023 ambulatory IFTIKHAR KEMP Facility:[facility] Start: 05-10-2023 End: 05-10-2023 Lab Drop off IFTIKHAR KEMP [facility] Start: 05-03-2023 End: 05-03-2023 ambulatory [facility] Work Phone: Start: 05-03-2023 End: 05-03-2023 Patient encounter procedure [facility] Work Phone: Start: 11-30-2022 End: 11-30-2022 Patient encounter procedure DO Iftikhar Kemp Work Phone: [facility] Ctr-Sleep Lab Work Phone: Start: 11-30-2022 End: 11-30-2022 ambulatory DO Iftikhar Kemp Work Phone: [facility] Work Phone: Start: 11-03-2022 End: 11-03-2022 ambulatory Martha Yi Other [facility] Other Start: 11-03-2022 Office outpatient vi sit 25 minutes Martha Yi [facility] Start: 05-25-2022 End: 05-25-2022 Patient encounter procedure IFTIKHAR KEMP [facility] Start: 05-17-2022 End: 05-18-[address] IFTIKHAR KEMP Facility: Start: 02-22-2022 [facility] Start: 01-11-2022 End: 01-11-2022 ambulatory DO Iftikhar Kemp Work Phone: [facility] Work Phone: Start: 01-11-2022 End: 01-11-2022 Patient encounter procedure DO Iftikhar Kemp Work Phone: [facility] Ctr-Sleep Lab Start: 12-02-2021 Office outpatient vi sit 25 minutes Thiago Chandler [facility] Start: 12-02-2021 End: 12-02-2021 ambulatory DO Iftikhar Kemp Work Phone: [facility] [employer] Other Start: 12-02-2021 End: 12-02-2021 Patient encounter procedure DO Iftikhar Kemp Work Phone: [facility]Sleep [facility] Start: 11-04-2021 End: 11-04-2021 ambulatory Martha Yi Other [facility] Other Start: 11-04-2021 Office outpatient vi sit 25 minutes Martha Yi [facility] Start: 10-13-2021 End: 10-13-2021 Patient encounter procedure DO Iftikhar Kemp Work Phone: [facility]Sleep [facility] Start: 09-22-2021 ambulatory UNKNOWN PROVIDER Facili ty:[facility] Start: 09-22-2021 End: 09-22-2021 Patient encounter procedure Renetta Bautista DDS Work Phone: [facility] Start: 08-05-2021 End: 08-05-2021 ambulatory Thiago Chandler Other [facility] [employer] Other Start: 08-05-2021 Office outpatient vi sit 25 minutes Thiago Chandler [facility] Start: 08-05-2021 End: 08-05-2021 Patient encounter procedure DO Iftikhar Kemp Work Phone: [facility]Sleep [facility] Start: 07-14-2021 End: 07-15-[address] DOCTOR RUSSELL Facility: Start: 06-08-2021 End: 06-09-2021 ambulatory UNKNOWN PROVIDER Facility:[facility] Start: 06-08-2021 End: 06-09-2021 Patient encounter procedure Vivi Clemons [facility] Work Phone: [facility] Start: 06-03-2021 End: 06-03-2021 ambulatory FRANCK [facility] Start: 06-01-2021 End: 06-02-[address] IFTIKHAR KEMP Facility:[facility] Start: 05-27-2021 End: 05-27-2021 ambulatory FRANCK CARBALLO [facility] Start: 05-27-2021 End: 05-27-2021 Office outpatient new 30 minutes Franck Carballo MD Work Phone: [facility] Comment on above: Esophageal dysphagia (Primary Dx); Food bolus obstruction of intestine (HCC) Start: 05-03-2021 End: 05-06-2021 Evaluation and management of inpatient ZULAY SVITLANA [facility] Start: 05-02-2021 End: 05-03-2021 Emergency department patient visit [facility] Start: 07-08-2020 End: 07-09-2020 ambulatory [facility] Start: 07-08-2020 End: 07-08-2020 Subsequent hospital visit by physician Iftikhar Kemp DO Work Phone: [facility] Comment on above: Arrived Start: 04-02-2020 End: 04-02-2020 Orders Only Melissa Summer Presley Work Phone: [facility] Start: 02-23-2019 End: 03-01-2019 Evaluation and management of inpatient Generic [facility] Work Phone: [facility] Cardiovascular Step Down Comment on above: Acute metabolic ence phalopathy (Primary Dx) Start: 02-23-2019 End: 02-23-2019 Emergency department patient visit [facility] Emergency [facility] Start: 01-06-2018 End: 01-08-2018 [...] HERNDONP Work Phone: Start: 05-27-2023 Creatinine blood aSndeep Jones FRONT EDGER Work Phone: Start: 07-08-2020 Radiologic exam swal [...] of arteri al blood gas studies Generic [facility] Work Phone: Start: 02-25-2019 OBTAIN ARTERIAL BLOO D GASES AND PERFORM Stuart Mcgrath Work Phone: Start: 02-25-2019 Videofluoroscopy swallow Stuart Mcgrath Work Phone: Start: 02-25-2019 Contrast echocardiography Holden Whiteside Work Phone: Start: 02-25-2019 Lynch [Moles/volum e] in Serum or Plasma Stuart Mcgrath Work Phone: Start: 02-24-2019 Influenza virus A AN D B antigen assay Stuart Mcgrath Work Phone: Start: 02-24-2019 Evaluation of arteri al blood gas studies Generic [facility] Work Phone: Start: 02-24-2019 OBTAIN ARTERIAL [...] of arteri al blood gas studies Generic [facility] Work Phone: Start: 02-23-2019 Blood count hematocrit [facility] Start: 02-23-2019 Drugs of [...] End: 01-08-2018 Assay of magnesium [employer]nie [employer] Work Phone: Start: 01-08-2018 End: 01-08-2018 CBC, EDIF, PLATELET [employer] Work Phone: Start: 01-08-2018 End: 01-08-2018 Renal function panel [employer] Work Phone: Start: 01-07-2018 End: 01-07-2018 CT of chest Bonnie J [employer] Work Phone: Start: 01-07-2018 End: 01-07-2018 Assay of magnesium Bonnie J [employer] Phone: Start: 01-07-2018 End: 01-07-2018 CBC, EDIF, PLATELET Bonnie J [employer] Phone: Start: 01-07-2018 End: 01-07-2018 Renal function panel Bonnie [employer] Work Phone: Start: 01-07-2018 End: 01-07-2018 Iaad ia mult step method nos each organism [employer] Phone: Start: 01-06-2018 End: 01-06-2018 Cul bact xcpt urine blood/stool aerobic isol Bonnie J [employer] Phone: Start: 01-06-2018 End: 01-06-2018 C-reactive protein Bonnie [employer] Phone: Start: 01-06-2018 End: 01-06-2018 Sedimentation rate rbc non-automated Bonnie [employer] Phone: Start: 01-06-2018 End: 01-06-2018 Cultyp nuc [...] (RZV) Vaccine (1 of 2) [facility] Start: 10-04-2028 Tetanus vaccination [facility] Start: 10-15-2023 Influenza vaccination INFLUENZA VACCINE (Season Ended) [facility] Start: 09-21-2023 Plain X-ray of right wrist XR wrist RT 2V [facility] Start: 09-21-2023 XR Wrist - right [address] [facility] Start: 10-14-2022 COVID-19 VACCINE ( season) COVID-19 VACCINE ( season) [facility] Start: 11-13-2021 Influenza vaccination [facility] Start: 06-03-2021 End: 06-03-2021 Admission to same day surgery center 06/03/2021 Surgery Franck Carballo MD [address] [address] ESOPHAGOGASTRODUODENOSCOPY [facility] Comment on above: ESOPHAGOGASTRODUODENOSCOPY Start: 06-03-2021 End: 06-03-2021 Esophagogastroduodenoscopy ESOPHAGOGASTRODUODENOSCOPY Esophageal dysphagia Food bolus obstruction of intestine (HCC) 06/03/2021 8:10 AM EDT [facility] Start: 06-03-2021 Subsequent hospital visit by physician 06/03/2021 Hospital Encounter Franck Carballo MD [address] [facility] Start: 10-14-2020 Influenza vaccination Sequential Influenza Vaccine (Season Ended) [facility] Start: 08-14-2020 COVID-19 Vaccine (3 - Booster for Pfizer series) COVID-19 Vaccine (3 - Booster for Pfizer series) [facility] Start: 05-12-2020 COVID-19 Vaccine (3 - Booster for Pfizer series) COVID-19 Vaccine (3 - Booster for Pfizer series) [facility] Start: 10-15-2019 Influenza vaccination given Sequential Influenza Vacci ne (#1) [facility] Start: 01-06-2019 Thyroid stimulating hormone measurement TSH [facility] Start: 01-06-2019 Thyrotropin Qn TSH [facility] Work Phone: Start: 10-14-2018 Influenza vaccination given SEQUENTIAL INFLUENZA VACCI NE (#1) [facility] Start: 10-14-2017 Influenza vaccination INFLUENZA VACCINE (#1) [facility] Work Phone: Start: 07-13-2015 Tetanus vaccination TETANUS [facility] Start: 08-22-2011 Hepatitis B vaccination HEP B VACCINE (1 of 3 - 19+ 3-dose series) [facility] Start: 08-22-2011 Third diphtheria, tetanus and acellular pertussis (DTaP) vaccination TDAP (ADULT) [facility] Work Phone: Start: 2010 Hepatitis C antibody, confirmatory test [facility] Start: 2010 [facility] Start: 2010 Tetanus + diphtheria + acellular pertussis vaccine (product) Tdap Booster [facility] Start: 2010 Tetanus vaccination TETANUS [facility] Work Phone: Start: 08-22-2007 HIV screening [facility] Start: 2005 HIV screening HIV SCREENING DISCUSSION [facility] Work Phone: Start: 2004 Adolescent depression screening assessment Depression Screening (PHQ9) [facility] Start: 2004 COVID-19 Vaccine (1) COVID-19 Vaccine (1) [facility] Start: 2004 Depression screening using PHQ-9 (Patient Health Questionnaire 9) score [facility] Start: 08-22-1995 History and physical examination, annual for health maintenance Wellness Visit [facility] Start: 1992 Hepatitis C screening HEPATITIS C VIRUS SCREENING [employer] Start: 1992 Tetanus vaccination TETANUS EVERY 10 YR [facility] Bacteria identified Cx Nom (Bld) [facility] Work Phone: End: 02-23-2019 Bacteria identified Cx Nom (Bld) Blood Culture Aerobic/Anaerobic Microbiology Routine Once for 1 Occurrences starting 02/23/2019 until 02/23/2019 [facility] Comment on above: Once for 1 Occurrences starting 02/23/19 20 until 02/23/2019 CBC, EDIF, PLATELET CBC, EDIF, P LATELET Routine Every morning Lab until discontinued starting 01/07/2018, 2 completed [facility] Work Phone: Comment on above: Every morning Lab until discontinued sta rting 01/07/2018, 2 completed MAGNESIUM MAGNESIUM Routin e Every morning Lab until discontinued starting 01/07/2018, 2 completed [facility] Work Phone: Comment on above: Every morning Lab until discontinued sta rting 01/07/2018, 2 completed RENAL FUNCTION PANEL RENAL FUNCT ION PANEL Routine Every morning Lab until discontinued starting 01/07/2018, 2 completed [facility] Work Phone: Comment on above: Every morning Lab until discontinued sta rting 01/07/2018, 2 completed Standard ECG ECG STAT 11/24/2 018 12:02 PM EST [facility] Work Phone: Immunizations Immunization Date Immunization Notes Care Provider Vimal angulo 03-17-2020 COVID-19 Vaccine Pfizer - Documentation Purposes Only Thiago Ramesh Other [facility] 02-25-2020 COVID-19 Vaccine Pfizer - Documentation Purposes Only Thiago Chandler Other [facility] 11-20-2019 influenza, injectabl e, quadrivalent, preservative free Vivi Deonte RDH Work Phone: [facility] 11-20-2019 influenza virus vaccine, unspecified formulation Renetta Lily DDS Work Phone: [facility] 11-22-2017 influenza, injectabl e, quadrivalent, preservative free Vivi Deonte RDH Work Phone: [facility] 12-07-2016 influenza, injectabl e, quadrivalent, contains preservative Vivi Deonte RDH Work Phone: [facility] 11-18-2015 influenza, seasonal, injectable Vivi Deonte RDH Work Phone: [facility] 12-04-2014 influenza, injectabl e, quadrivalent, preservative free Vivi Deonte RDH Work Phone: [facility] 12-19-2013 influenza, injectabl e, quadrivalent, preservative free Vivi Deonte RDH Work Phone: [facility] 12-12-2012 influenza, seasonal, injectable Vivi Deonte RDH Work Phone: [facility] 12-07-2011 influenza, seasonal, injectable Vivi Deonte RDH Work Phone: [facility] 10-27-2010 influenza virus vaccine, whole virus Vivi Deonte RDH Work Phone: [facility] 12-31-2008 novel [id number], preservative-free, injectable Vivi Franciscorillo RD Work Phone: [facility] 07-12-2005 TD(adult) unspecifie d formulation Vivi Franciscorillo RD Work Phone: [facility] Payers Date Payer Category Payer Self-pay [id number] 2019 [place] xxxxxxxxxxxx 2019-Present [id number] 2019 Medicaid [place] [id number] 2019-Present [id number] 2017 Medicaid [id number] 1992 Unknown [id number]. 1992 Unknown [id number] 1992 Unknown [id number]. 1992 Unknown [id number] 1992 Unknown [id number] [id number]. 1992 Unknown [id number] [id number]. 1992 Unknown [id number] [id number] 1992 Unknown [id number] [id number] 1992 Unknown [id number] [id number] 1992 Unknown [id number] [id number] 1992 Unknown [id number] [id number] 1992 Unknown [id number] [id number] 1992 Unknown [id number] 1957 Medicaid [id number] Unknown [id number] Unknown [id number] Social History Date Type Detail Facility Start: 01-06-2018 End: 02-22-2019 Tobacco smoking status NHIS Never smoker [facility] Work Phone: Start: 1990 Sex Assigned At Not on file O [facility] Work Phone: Start: 02-23-2019 End: 05-27-2021 Alcohol intake Lifetime non-drinker (finding) [facility] Start: 02-23-2019 End: 02-28-2019 History SDOH Alcohol Frequency 1 [facility] Start: 01-06-2018 End: 02-28-2019 Tobacco use and exposure Never used [facility] Start: 05-17-2021 End: 05-27-2021 Exposure to SARS-CoV-2 (event) Not sure [facility] Tobacco smoking stat us NEIS Tobacco [facility] Start: 01-09-2019 [facility]igned At [facility] Start: 1990 Sex Assigned At Male F [facility] Tobacco smoking status No Smokin g Status Entered [facility] Start: 05-27-2023 Alcoholic beverage intake Current non-drinker of alcohol (finding) [facility] Start: 01-09-2019 History of Social function [facility] Start: 01-06-2018 Gender identity Identifies as male gender (finding) [facility] Clinical Notes 07-08-2020 to 05-27-2023 Neda Marks RN - 05/27/2023 4:01 PM Dae Marks RN - 05/27/2023 4:01 PM Doertha Otero MD - 05/27/2023 3:42 PM Dae Marks RN - 05/27/2023 3:26 PM EDTDischarge Instructions Note Date & Type Note Facility 05-27-2023 Emergency department Note Discharge instructions were provided to the patient and mother. Aware to follow up as needed. Soft/liquid diet cor 24 hours explained. No questions. Iv removed and tolerated well. [facility] 05-27-2023 Emergency department Note Discharge instructions were provided to the patient and mother. Aware to follow up as needed. Soft/liquid diet cor 24 hours explained. No questions. Iv removed and tolerated well. Attending note: I have personally performed a [id number] and diagnostic assessment. I have discussed the [...] Portions of this chart were created using [employer] electronic dictation. Please excuse any typographical or grammatical errors contained herein. Liban Otero MD 05/27/23 1544 Liabn Otero MD 05/27/23 1547 Called intio the patients room. Patient had large 1 inch piece of hotdog in the emesis bucket. Patient is smiling and stating I did it, I feel so much better . Credit Collections Manager and were made aware and the human capital manager is now at bedside. No distress. Vss. stated to wait 10 minutes and take him in oral challenge. Xray at bedside. Credit Collections Manager at bedside. Patient and mother stating they were at [facility] and he was eating a hot dog. [...] with mother at bedside. Emergency Department Report [facility] Service Date:.05/27/23 PCP: Iftikhar Kemp Chief Complaint: Chief Complaint Patient presents with Choking Mother and patient was choking on a hotdog at [facility]. Vss. HPI Fahad Bernabe is a 32 [...] Partner Violence: Unknown (04/06/2023) Received from [facility] Fear of Current [...] with above information. . . Sandeep Jones, [facility] 05/27/23 1545 Associated attestation - Liban Otero MD - 05/27/2023 8:13 PM EDT Attending note: I have consulted with the mid-level provider and agree with the assessment and plan. The patient was seen independently by the mid-level and I did not personally examine the patient. documented in this encounter [facility] 05-27-2023 Hospital Discharge instructions Liban Otero MD - 05/27/2023 3:46 PM EDT Stay with soft foods soups broth and Jell-O the next 24 hours then advance as directed avoid solid food at this time due to inflammation The following attachments cannot be sent through Care Everywhere.Foreign Body in Throat or Esophagus (Brazilian)documented in this encounter [facility] 05-27-2023 Physician Emergency department Note Attending note: I have personally performed a [id number] and diagnostic assessment. I have discussed the [...] and for further detail, please see the [facility] note. VITAL SIGNS DURING ED VISIT: Patient [...] Portions of this chart were created using [employer] electronic dictation. Please excuse any typographical or grammatical errors contained herein. Liban Otero MD 05/27/23 1544 Liban Otero MD 05/27/23 1547 [facility] 05-27-2023 Emergency department Note Called intio the patients room. Patient had large 1 inch piece of hotdog in the emesis bucket. Patient is smiling and stating I did it, I feel so much better . Credit Collections Manager and dr were made aware and the human capital manager is now at bedside. No distress. Vss. Dr stated to wait 10 minutes and take him in oral challenge. [facility] 05-27-2023 Emergency department Note Xray at bedside. Credit Collections Manager at bedside. [facility] 05-27-2023 Emergency department Note Patient and mother stating they were at [facility] and he was eating a hot dog. [...] resting in bed with mother at bedside. [facility] 05-27-2023 Physician Emergency department Note Emergency Department Report [facility] Service Date:.05/27/23 PCP: Iftikhar Kemp Chief Complaint: Chief Complaint Patient presents with Choking Mother and patient was choking on a hotdog at [facility]. Vss. HPI Fahad Bernabe is a 32 [...] Partner Violence: Unknown (04/06/2023) Received from [facility] Fear of Current [...] information. . . Sandeep Jones, EDWIGE 05/27/23 4002 Associated attestation - Liban Otero MD - 05/27/2023 8:13 PM EDT Attending note: I have consulted with the mid-level provider and agree with the assessment and plan. The patient was seen independently by the mid-level and I did not personally examine the patient. [facility] [employer] Work Phone: 05-10-2023 Evaluation + Plan note Diagnostic Tests PendingLithium Level 05/10/23T3 Free 05/10/23 [facility] 11-03-2022 Evaluation note Encounter Date Diagnosis Assessment Notes Oct, Pulmonary hypertension (ICD-10 - I27.20) Oct, Sleep apnea in adult (ICD-10 - G47.33) Oct, Pickwickian syndrome (ICD-10 - E66.2) Oct, Pneumonia (ICD-10 - J18.9) Continue with aspiration prevention measures as you are [facility] Other 09-21-2023 History general Narrative - Reported* Type Description Date Medical History sleep apnea....Auto CPAP 8-12 wi th O2 at 3 liters Medical History Hypothyroidism Medical History cleft palate Medical History pulmonary HTN Medical History ADHD Medical History Seizure Disorder Surgical History Heart 2 holes upper and lower a t Surgical History tubes in ears Hospitalization History pneumonia [facility] 09/2018 Hospitalization History Sepsis [facility] 09/2018 [place] [facility] [place] [facility] History [facility]2019 [facility] Other 10-20-2022 Evaluation note* Encounter Date Diagnosis [...] responded to diuretics and to oxygen therapy [facility] Other 09-22-2022 Evaluation note* Encounter Date Diagnosis Assessment Notes Treatment Notes Treatment Clinical Notes Oct, Pulmonary hypertension (ICD-10 - I27.20) Oct, Sleep apnea in adult (ICD-10 - G47.33) Continue to follow Dr. Chandler recommendations. [facility] pharmacy technician program director stated results of most recent sleep study completed 10/13/2021 will be discussed at patient's next sleep lab visit in November 2021. Oct, Pickwickian syndrome (ICD-10 - E66.2) Oct, Pneumonia (ICD-10 - J18.9) [facility] Other 08-10-2022 History of Present illness Narrative* Michelle Singh DDS - 09/22/2021 10:00 AM EDT ----- Wednesday, September 22, 2021 at 11:33:21 AM ----- ----- Provider: [id number] Juan Pablo Singh, Resident -- Clinic: [facility] ----- COMPOSITE JEHOVAH'S WITNESS Patient is scheduled for Sikhism on tooth #22-MDF, 23-MDF, 24-MDF, 25-MDF, 26-MDF and 27 surface MDF. Reviewed Medical History. Pt exhibited the following conditions: Mental Disorders Patient is ready for treatment. Topical Benzocaine gel applied at the injection site for 2 minutes. Administered 1 carpules of Lidocaine, 2% with Epinephrine 1:100,000,. Decay/existing jew removed, cavity prepared. Selectively etched enamel with 37% phosphoric acid, rinsed, and blot dried. OptiBond davidson applied and light-cured. Condensed packable composite shade in light cured increments using Mylar strip and wedge. Finished with finishing burs, checked occlusion, verified proximal contacts and jew was polished. Rinsed and suctioned intraorally, advised [...] 2021 at 11:49:29 AM ----- ----- Provider: [id number] Juan Pablo Zapata DDS -- Clinic: [facility] ----- documented in this [id number] Evaluation note* Encounter Date Diagnosis Assessment Notes [...] responded to diuretics and to oxygen therapy [facility] Other 06-23-2022 History general Narrative - Reported* Type Description Date Medical History sleep apnea....Auto CPAP 8-12 O2 at 3 liters Medical History Hypothyroidism Medical History cleft palate Medical History pulmonary HTN Medical History ADHD Medical History Seizure Disorder Surgical History Heart 2 holes upper and lower a t Surgical History tubes in ears Hospitalization History pneumonia [facility] 09/2018 Hospitalization History Sepsis [facility] 09/2018 [place] [facility] [place]/2018 Hospitalization History [facility] 02/2019 [facility] Other 04-26-2022 History of Present illness Narrative* Vivi Clemons, [facility] - 06/08/2021 10:54 AM EDT [...] on 6 month recall. Examination completed by /RUBBER FLAP CUTTER [facility] [place]: mian ----- Signed on Tuesday, June 08, 2021 at 2:17:56 PM ----- ----- Provider: Emeterio Zpaata DDS -- Clinic: [facility] ----- documented in this [id number] NoteEXAMINATION: XR CHEST 2 V HISTORY: COVID-19 [...] Electronically authenticated by: ZULAY LYLE Date: 2021-06-01 11:36[facility]04-14-2022 History of Present illness Narrative* Franck [...] covid, recent covid positive documented in this [id number] Procedure note* Lazaro Figueredo SLP - 07/08/2020 8:30 AM EDT Procedure(s): MORNING CAREGIVER MODIFIED BARIUM SWALLOW Pre-Procedure Diagnose(s): Dysphagia, oropharyngeal Post-Procedure Diagnose(s): Dysphagia, oropharyngeal [facility] Speech Language Pathology Modified Barium Swallow [...] 8 Point Penetration-Aspiration Scale [place]: Not Tested [place]: Not Tested Thin: 2 - Material enters [...] note No data available for this section [facility] Diagnosis Dyspepsia Dyspepsia and other specified [...] [facility] Work Phone[facility]* Diagnosis Onset Date Resolution Status Pulmonary hypertension acute [facility] Work Phone: Evaluation note* Diagnosis Foreign body in esophagus, initial encounter- Primary Development delay Unspecified delay in development [facility] Diagnosis Onset Date Resolution Status Distal radius fracture acute Distal radius fracture acute [facility] Work Phone: History general Narrative - Reported* Type Description Date Medical History sleep apnea....Auto CPAP 8-12 ne th O2 at 3 liters Medical History Hypothyroidism Medical History cleft palate Medical History pulmonary HTN Medical History ADHD Medical History Seizure Disorder Surgical History Heart 2 holes upper and lower a t Surgical History tubes in ears Hospitalization History pneumonia [facility] 09/2018 Hospitalization History Sepsis [facility] 09/2018 Hospitalization History [facility] pneumonia 12/2018 Hospitalization History [facility] 02/2019 [facility] Other Hospital Discharge instructions No data available for this section [facility] No data available for this section [facility] Reason for Referral Status Reason Specialty Diagnoses / Procedures Referre d By Contact Referred To Contact Bonnie Shankar, PHOTOENGRAVING PROOFER APPRENTICE-ROCKET SCIENTIST [address] [place] [address] Status Reason Specialty Diagnoses / Procedures Re ferred By Contact Referred To Contact New Request Procedures INPATIENT ADMISSION NOTIFICATION Joaquin Garcia MD [address] [place] [id number] Status Reason Specialty Diagnoses / Procedures Referre d By Contact Referred To Contact Closed Procedures ECG Naida Masters, PAJuan PabloC [address] [place] [address] Status Reason Specialty Diagnoses / Procedures Referred By Contact Referred To Contact Authorized Patient Preference Rehabilitation Diagnoses Acute metabolic encephalopathy Idalia Sims MD [address] [place] [address] Status Reason Specialty Diagnoses / Procedures Referre d By Contact Referred To Contact Closed Radiology Diagnoses Dyspepsia Acute respiratory failure, unspecified whether with hypoxia or hypercapnia (HCC) Procedures XR Modifed Barium Swallow Iftikhar Kemp, DO [address] [place] [address] Discharge Instructions * Discharge Instr - Diet - Brenna Fall RN - 01/08/2018 2:59 PM EST Resume pre-hospital diet As tolerated. * Discharge Instr - Activity - Brenna Fall RN - 01/08/2018 2:58 PM EST Resume pre-hospital activity as tolerated. The following attachments cannot be sent through Care Everywhere. * Benzonatate capsules (Brazilian) * Prednisone tablets (Brazilian) * Levofloxacin tablets (Brazilian) * Adult, Pneumonia (Brazilian) in this encounter* Discharge Instr- IP MORNING CAREGIVER* Idalia Sims MD - 03/01/2019 10:22 AM EST No straws, please follow aspriartion precautions * Discharge Instr - Care Coordination* Ivory Bhatia LISW - 02/25/2019 12:39 PM EST [facility] - [phone] FAX [phone] Mother Edison to transport patient - [phone]. * Attachments The following attachments cannot be sent through Care Everywhere. * Aspiration Pneumonia (Brazilian) documented in this encounter History of Present [...] Status) full weight bearing Home Setting [place]; mother assists with pt Hx) Lives With other (see comments) ([facility]; was home visiting mom when got ill) First floor bed/bathroom yes (all 1 level at [facility]) Number of Stairs to Enter Home (0 at [facility]; has a couple at mom's house) Number [...] Supine to Sit, Rehab Eval Level of Davie: Supine/Sit other (see comments) (pt found up in chair; assistx1 c RESULTS TECHNICIAN this AM, per mother) Transfer Skill: Sit To Stand, Rehab Eval [place] (Sit-Stand Transfers) contact guard Physical Assist/Nonphysical Assist: Sit/Stand set-up required;verbal cues;1 person assist (line managment needed) Weight-Bearing Restrictions: Sit/Stand full weight-bearing Assistive Device For Transfer: Sit/Stand (CGAx1 with gait belt only) Gait Skills, PT Eval Level of Davie: Gait contact guard Physical Assist/Nonphysical Assist: Gait [...] to medical status) Stair Negotiation Level of [place]: Stair Negotiation (held steps due to pt does not have at [facility]) Balance Additional Documentation (sitting = WNL; standing = good-) Sensory Examination Sensory Examination WFL General Interventions Planned Therapy Interventions balance training;bed mobility training;endurance;gait training;neuromuscular re- education;strengthening;transfer training;postural re-education PRIOR LEVEL [facility] Basic Mobility Inpatient Short Form Turning [...] 3 - A Little Assistance PRIOR LEVEL [facility] Mobility Raw Score 23 PRIOR LEVEL [facility] Mobility Functional Limitation/Modifier 11.20% Prior Functional Impairment in Basic Mobility - CI CURRENT [facility] Basic Mobility Inpatient Short Form Turning [...] 2 - A Lot of Assistance CURRENT [facility] Mobility Raw Score 18 CURRENT [facility] Mobility Functional Limitation/Modifier 46.58% Currently Impaired in Basic Mobility - CK Projected [facility] Mobility Raw Score 23 Projected [facility] Mobility Functional Limitation/Modifier 11.20% Projected Functional Impairment in Basic Mobility - CI Assessment Assessment Narrative Pt presents with limited activity tolerance and mild shortness of breath with mobility today related to medical status, and would benefit from skilled PT services during acute care stay to improve mobility tolerance and overall safety with all mobility. Discharge Recommendations pt to [facility] [facility] with [facility]P Clinical Impression Criteria for Skilled [...] comments) (at this time, anticipating return to [facility] with [facility]P) Plan Plan Narrative pt to be seen 1-2x/day during acute care stay Therapist Information License # [id number] Patient status at end of treatment/response to [...] treatment of this patient is transferred to [facility] Inpatient Physical Therapist following this evaluation. Dixie Alexander, PT, DPT #[id number] Time in: 836 AM Time out: 900 AM Billable time: 24 min Charges: Eval (low complexity) 1@24min Current anticipated discharge recommendation: anticipate pt to return to [facility]P Patient demonstrates functional limitation in [...] The patient is discharged today back to [facility]. Called the facility and spoke with Emilia. She said they [facility]. Faxed the referral and day of discharge bundle to the facility. Please call report to [phone]. Information faxed to [phone]. Patient's mother plans to transport the patient. Case closed at discharge. [facility] Disposition D/C Disposition: Another Health Care Institution Not Defined([facility] care facility.) Agency/Destination: ([facility]) Transportation Type: Auto(Mother, Edison to transport [phone]) Reason for Choice: Currently with agency Anticipated Discharge Plan Anticipated HME: Undetermined * Damaris Yang LISW - 02/28/2019 3:30 PM EST DISCHARGE PLAN PROGRESS NOTE Date: 02/28/2019 Time: 3:31 PM Patient Name: Fahad Bernabe Date of : 1990 Sex: Male Returned a call to [facility] [phone]. Discussed that the plan was to discharge thepatient back to their facility tomorrow. [facility] Disposition D/C Disposition: Another Health Care Institution Not Defined([facility] care facility.) Agency/Destination: ([facility]) Transportation Type: Auto(Mother, Edison to transport [phone]) Reason for Choice: Currently with agency Anticipated Discharge Plan Anticipated HME: Undetermined * Idalia Sims MD - 02/28/2019 1:32 PM EST [facility] Medicine Inpatient Follow-up 02/28/2019 Idalia Sims MD [facility] Patient: Fahad Bernabe Date of : 1990 [...] Sims MD - 02/27/2019 3:54 PM EST [facility] Medicine Inpatient Follow-up 02/27/2019 Idalia Sims MD [facility] Patient: Fahad Bernabe Date of : 1990 [...] IMAGING: Reviewed 3:57 PM * Patricia Lema, MORNING CAREGIVER - 02/27/2019 8:50 AM EST Speech Pathology [...] Family/caregiver support Explain Environmental Factors: lives in [facility] [place], mother very supportive - pt stays with [...] Assess for diet tolerance, Re-evaluate diet changes MORNING CAREGIVER Caregiver Readiness Working toward discharge home: Yes MORNING CAREGIVER Caregiver Training: Ongoing - Follow up required [...] Due to speech therapy recommendations this social secretary contacted Kayleigh at [place]. Carmela reports that she spoke with Lina at [facility] in speech therapy about patient needs.Carmela states that a speech therapist visits [place] weekly and that she is aware that patient would need to be seen. Patient's step father was informed of need for speech therapy as patient's mother (reported guardian) is not available at this time. Patient's mother is home resting and taking a shower, per step father. Patient Information Primary Caregiver: Other (Comment)([facility] - [phone]) Discharge Planning Living Arrangements: Facility Support Systems: Parent, export freight manager/social secretary, Other (Comment)(Mother Edison reports that she is guardian.) Assistance Needed: stand by Type of Residence: long-term Care Facility Name: ([facility].) Prior to Admission Home Care Services: No Patient expects to be discharged to:: [facility]. Mother Edison to transport. Does the patient need discharge transport arranged?: No Current Home Equipment: None, Oxygen Anticipated HME: Undetermined Anticipated Discharge Plan Anticipated HME: Undetermined [facility] Disposition D/C Disposition: Another Health Care Institution Not Defined([facility] care facility.) Agency/Destination: ([facility]) Transportation Type: Auto(Mother, Edison to transport [phone]) Reason for Choice: Currently with agency * Idalia Sims MD - 02/26/2019 2:01 PM EST [facility] Medicine Inpatient Follow-up 02/26/2019 Idalia Sims MD [facility] Patient: Fahad Bernabe Date of : 1990 [...] IMAGING: Reviewed 2:01 PM * Eda Arriaga, MORNING CAREGIVER - 02/26/2019 10:59 AM EST Speech Pathology [...] Family/caregiver support Explain Environmental Factors: lives [place] [facility] [place], mother very supportive - pt stays with mother every other weekend Personal Factors: Awareness of own capacity and performance Explain Personal Factors: developmental delays and cognitive deficits, impulsivity Skilled Therapy Needs: dysphagia intervention for pt/caregiver training Recommendations: Provale Cup for volume control, small utensils for bolus portion mgmt MORNING CAREGIVER Caregiver Readiness Working toward discharge home: Yes MORNING CAREGIVER Caregiver Training: Ongoing - Follow up required [...] and optimize control).Stated I put you in halfway . With emotional support, pt behaviors did [...] flow sheets, Bedside Study Evaluation flow sheets, [facility] Navigator, as well as patient Plan of Care and Education documentation. This note stands as the current Discharge Summary upon patient discharge from the hospital or completion of Speech Pathology Plan of Care * Stuart Mcgrath MD - 02/25/2019 1:00 PM EST [facility] Medicine Inpatient Follow-up 02/25/2019 Stuart Mcgrath MD [facility] Patient: Fahad Bernabe Date of : 1990 [...] Medicine Inpatient Follow-up 02/24/2019 Stuart Mcgrath MD [facility] Patient: Fahad Bernabe Date of : 1990 [...] FoundDocuments on File Type Date Recorded Patient Corporate Compliance Manager Expl anation Advance Directives and Livin g Will 02/23/2019 3:14 PM Guardianship Papers 02/23/2019 3:14 PM Latest Code Status on File Code Status Date Activated Date Inactivated Comments Full Code - Unverified 02/23/2019 9:21 PM Documents on File Type Date Recorded Patient Corporate Compliance Manager Expl anation Advance Directives and Livin g Will 02/23/2019 11:06 PM Guardianship Papers 02/23/2019 3:14 PM Latest Code Status on File Code Status Date Activated Date Inactivated Comments Full Code - Unverified 02/23/2019 9:21 PM Documents on File Type Date Recorded Patient Corporate Compliance Manager Expl anation Advance Directives and Livin g Will 02/23/2019 11:06 PM Guardianship Papers 02/23/2019 3:14 PM Documents on File Type Date Recorded Patient Corporate Compliance Manager Expl anation Advance Directives and Livin g Will 07/08/2020 11:06 PM Guardianship Papers 02/23/2019 3:14 PM Guardianship Papers 07/08/2020 12:00 AM Documents on File Type Date Recorded Patient Corporate Compliance Manager Expl anation Advance Directives and Livin g [...] HOSPITALIST DISCHARGE SUMMARY Patient: Fahad Bernabe Account: [id number] Admitted: 02/23/2019 Discharge Date/Time: 03/01/2019 Clinical Summary [...] for which he is nonadherent. Transferred to [place] for aspiration pneumonia and acute on chronic [...] next recommendation would be for tracheostomy per raw stock dyeing machine tender Obstructive Sleep Apnea - pt underwent sleep [...] with tracheostomy -Patient to follow-up with his raw stock dyeing machine tender as an outpatient Acute on Chronic Respiratory [...] Family: Iftikhar Kemp DO, Phone: None, Address: [address] [place] [phone] Follow Up: Iftikhar Kemp DO [address] [facility] [id number] Follow up in 1 week(s) Patient instructions, [...] XR Modifed Barium Swallow Iftikhar Kemp DO [employer] [place] [address] Reason Comments Consult EGD Reason Comments Choking Mother and patient w as choking on a hotdog at [facility]. Vss. iVcki Coleman RN - 02/23/2019 1:36 PM EST ED Notes (unrecognized secti on and content) Per parent report pt was seen yesterday at another ED yesterday and dx with pneumonia and dc with antibiotics. Pt started having trouble staying awake today. documented in this encounter Holden Whiteside MD - 02/23/2019 9:22 PM EST H&P Notes (unrecognized sect ion and content) [facility] Medicine Inpatient H&P 02/23/2019 Holden Whiteside MD [facility] Patient: Fahad Bernabe Date of : 1990 [...] for the last year was seen at [facility] emergency department due to cough and for unresponsiveness. Patient was diagnosed yesterday at [facility] emergency department with a pneumonia and was [...] for the last year was seen at [facility] emergency department due to cough and for unresponsiveness. Patient was diagnosed yesterday at [facility] emergency department with a pneumonia and was started on antibiotics. Patient is a resident of a [facility] in [place]. His mother went to pick him up [...] PM documented in this encounter Eda Arriaga, MORNING CAREGIVER - 02/25/2019 10:00 AM EST Procedure Notes (unrecognize d section and content) Procedure(s): MORNING CAREGIVER MODIFIED BARIUM SWALLOW Pre-Procedure Diagnose(s): Dysphagia, unspecified type Post-Procedure Diagnose(s): Oropharyngeal dysphagia [facility] Speech Language Pathology Modified Barium Swallow [...] Explain Environmental Factors supportive mother, [facility] [place] [facility] [place], mother very supportive - pt stays with [...] causes of encephalopathy. He lives at the [facility] but is being checked on by [...] given his improvement. DAMIAN GRIGSBY MSc, . [email or web address] Staff Neurologist & Movement Disorder Specialist [facility] (Adj Asst: Professor, [employer] Dept of Neurology) Jany CamposflorenceCRISTOBAL Gonzalez [facility] [id number], [facility] [address] Clinic (Appointments) Fax: [phone] Attestation: Time statement: A total of 50 minutes were spent on this encounter either in the patient's room or on the patient's hospital unit and over half of that time was spent on [id number] counseling and/or coordination of care. This note was dictated using [employer], a speech-recognition software. Syntax errors and sound-alike substitutions which may escape proofreading could be present. In such instances, the actual meaning can be extrapolated from the context. Associated Order(s): IP CONSULT TO PULMONOLOGY PULMONOLOGY CONSULT 02/26/2019 Patient: Fahad Bernabe Date of : 1990 Site: [facility] Referring Provider: Refer to consult order in electronic medical record Provider: Kathryn Lawrence CNP ASSESSMENT/PLAN: Fahad Bernabe 28 y.o. male with history of Down syndrome, ADHD, Depression, Hypothryoidism, OCD, Seizures, open heart surgery for childhood ASD/VSD, HTN, aspiration pneumonia, obstructive sleep apnea on CPAP for which he is nonadherent. Transferred to [place] for aspiration pneumonia and acute on chronic [...] is a 28 y.o. male presenting from [facility] with complaint of lethargy and was evaluated at [facility] where he was diagnosed with Pneumonia and discharged home with antibiotics. Mother took patient home with her that evening and presents to [facility] ED the following day for worsened lethargy, fever, and cough. B/L interstitial edema noted and patient transferred to [place] for respiratory failure. Pt with history of [...] December. Patient not able to contribute to GAMBELL or ROS. Information obtained from mother and [...] tablet 1 tablet 1 tablet Oral Q12H [facility] dIalia Sims MD 1 tablet at 02/26/19 1149 [...] mg 40 mg Subcutaneous BID [facility] Duong [facility],PharmD famotidine (PEPCID) tablet 20 mg 20 [...] Sex: Male Patient Information Primary Caregiver: Other (Comment)([facility] - [phone]) Initial assessment completed with patient's mother, Edison. Patient was present during assessment. Patient's mother Edison reports that she is patient's guardian. This social secretary requested that Edison bring in a copy of guardianship paperwork for patient's chart. Edison reports that patient resides at [facility], which is a care center for [facility]. Patient does need 24 hour supervision due to flight risk. PING Hendricks is aware and reports that a break away alarm is placed on patient. This social secretary contacted Pavithra at [facility]. Pavithra reports that patient can return at discharge. Pavithra informed that [facility] plans to transport patient when patient is ready for discharge. Pavithra reports that patient was on 2 liters of oxygen at night while at [facility]. Pavithra requested discharge paperwork when patient is discharged from the hospital. [facility] [phone] FAX [phone]. Discharge Planning Living Arrangements: Facility Support Systems: Parent, export freight manager/social secretary, Other (Comment)(Mother [facility] reports that she is guardian.) Assistance Needed: stand by Type of Residence: long-term Care Facility Name: ([facility].) Prior to Admission Home Care Services: No Patient expects to be discharged to:: [facility]. Mother [facility] to transport. Does the patient need discharge transport arranged?: No Current Home Equipment: None, Oxygen Anticipated HME: Undetermined Anticipated Discharge Plan Anticipated HME: Undetermined [facility] Disposition D/C Disposition[facility] Agency/Destination: ([facility]) Transportation Type: Auto(Mother, [facility] to transport [phone]) Reason for Choice: Currently with agency Speech [...] Explain Environmental Factors: supportive mother, [facility] [place] [facility] Personal Factors: Awareness of own capacity and performance Explain Personal Factors: premorbid cognitive deficits Skilled Therapy Needs: Anticipate Resolution of Current Assessment Limitations Including: (acute pulmonary deficit) Are Skilled Therapy Services Needed After Discharge: Yes Intensity of Skilled Therapy: (to be determined per MBS) Anticipated Duration of Skilled Therapy: (pending MBS) MORNING CAREGIVER Caregiver Readiness Working toward discharge home: Yes MORNING CAREGIVER Caregiver Training: Ongoing - Follow up required [...] Assessment: Pertinent clinical information: Downs Syndrome from [facility] Past Medical History: Diagnosis Date ADHD [...] Estimated Needs: 1800-2000cal Method for Estimating Needs: [id number],adjbw Total Protein Estimated Needs: 79gms Method for [...] and instructions Outcome: Met Possible discharge to [facility] tomorrow. Problem: Falls, Risk of Goal: [...] bathroom needs per mother at [facility]. Will follow up as appropriate. Associated [...] consulted. [facility] [place]. Problem: Pain Goal: Manage acute pain Outcome: [...] Active Thiago Chandler MD Attending Provider Active As400 Programmer Relationship Specialty Start Date End Date Iftikhar Kemp DO [address] [place] [address] PCP - General Endocrinology/Metabolism 02/23/19 Team Status: Inactive Member Role Status Dates Iftikhar Kemp DO Primary Care Provider Active Start: May 03, 2023 End: May 03, 2023 Martha Richmond APRN ACNP-BC Attending Provider Active Start: May 03, 2023 End: May 03, 2023 DME Active Start: May [id number] End: May 03, 2023 As400 Programmer Relationship Specialty Start Date End Date Iftikhar Kemp DO [address] [place] [address] PCP - General Family Medicine 05/27/23 Team [...] section and content) DATE CREATED AUTHOR 05/28/2021 [facility] DATE CREATED AUTHOR AUTHOR'S ORGANIZ ATION 05/28/2021 [facility] DATE CREATED AUTHOR AUTHOR'S ORGANIZ ATION 06/05/2021 [facility] DATE CREATED AUTHOR AUTHOR'S ORGANIZ ATION 09/28/2021 [facility] DATE CREATED AUTHOR AUTHOR'S ORGANIZ ATION 05/23/2022 [facility] DATE CREATED AUTHOR AUTHOR'S ORGANIZ ATION 06/01/2023 [facility] DATE CREATED AUTHOR AUTHOR'S ORGANIZ ATION 07/14/2023 [facility] DATE CREATED AUTHOR AUTHOR'S ORGANIZ ATION 09/24/2023 [facility] Goals (unrecognized section and content) [...] BASED ON THE PRIMARY CLINICAL RECORDS. [employer] [facility]. provides no warranty or guarantee of the accuracy or completeness of information in this document.
[2023-10-21] MEDS: ALBUTEROL SULFATE 200 PUFF/6.7 GM INHALER IH ×3 (16:09→23:21)
[2023-10-21 16:26] LABS: Glucometer 193 mg/dL (74-106)
[2023-10-21] MEDS: INSULIN ASPART 300 UNIT/3 ML PEN SUBQ ×2 (16:41→22:09)
[2023-10-21] MEDS: risperiDONE 1 MG TABLET PO (16:41)
[2023-10-21] MEDS: CHLORPROMAZINE 25 MG 25 EACH PO (16:41)
[2023-10-21] MEDS: ACETAMINOPHEN 325 MG TABLET 650 MG PO (20:02)
[2023-10-21] MEDS: CARBAMAZEPINE 200 MG TABLET PO (20:03)
[2023-10-21] MEDS: DOCUSATE SODIUM 100 MG CAPSULE PO (20:05)
[2023-10-21] MEDS: BENZONATATE 100 MG CAPSULE PO (20:05)
[2023-10-21] MEDS: DIVALPROEX SODIUM 500 MG TABLET.DR PO (20:05)
[2023-10-21 20:16] LABS: Glucometer 204 mg/dL (74-106)
[2023-10-21] MEDS: HEPARIN SODIUM (PORCINE) 5,000 UNIT/ML VIAL 5000 UNIT SUBQ (21:46)
[2023-10-21] MEDS: METHYLPREDNISOLONE SOD SUCC PF 40 MG/ML VIAL IVP (21:46)
--- NOTE | 2023-10-21 23:21 | RESP.RT ---
Pt had cannula out of nose and Sp02 was 86%-88% when RT walked in the room. RT placed home cpap unit on patient for the night and patient ripped it off twice. Patient is refusing to wear home cpap. Placed 4L nasal cannula on patient instead and Sp02 increased to 94%.
[2023-10-22] VITALS (14 sets, daily range): BP systolic 104–124; BP diastolic 67–80; PULSE 60–91; TEMP 35.8–36.8; O2SAT 85–96
[2023-10-22] MEDS: LACTATED RINGER'S SOLUTION 1,000 ML 125 ML IV (00:19)
[2023-10-22] MEDS: LORAZEPAM 0.5 MG TABLET 1 MG PO (02:20)
[2023-10-22] MEDS: ALBUTEROL SULFATE 200 PUFF/6.7 GM INHALER IH ×6 (03:50→23:35)
[2023-10-22] MEDS: METHYLPREDNISOLONE SOD SUCC PF 40 MG/ML VIAL IVP ×3 (06:07→21:20)
[2023-10-22] MEDS: risperiDONE 1 MG TABLET PO ×3 (06:08→20:46)
[2023-10-22] MEDS: LEVOTHYROXINE SODIUM 75 MCG TABLET 150 MCG PO (06:08)
--- NOTE | 2023-10-22 06:14 | PC.NURSE ---
combative and violent while trying to draw labs and place new IV. he spit, kicked, hit, and tried to head butt three nursing staff. he was softly restrained during the procedure with a blanket wrapped around his torso and legs were secured. once IV was placed he remained calm and did not touch or remove the IV cath.
[2023-10-22 06:31] LABS: Basophils Percent Auto 0.1 % (0.2-2.0); Hematocrit 33.8 % (42.0-54.0); Hemoglobin 11.1 g/dL (14.0-18.0); Immature Granulocytes Abs Auto 0.12 10^3/uL (0.00-0.03); Immature Granulocytes Pct Auto 0.5 % (0.0-0.5); Lymphocytes Absolute Auto 1.5 10^3/uL (1.2-3.8); Mean Corpuscular HGB Conc 32.8 g/dL (29.9-35.2); Mean Corpuscular Hemoglobin 33.2 pg (25.9-34.0); Mean Corpuscular Volume 101.2 fL (80.0-94.0); Monocytes Absolute Auto 0.9 10^3/uL (0.3-0.8); Monocytes Percent Auto 4.3 % (1.7-12.0); Neutrophils Absolute Auto 19.2 10^3/uL (1.4-6.5); Neutrophils Percent Auto 88.1 % (43.0-75.0); Platelet Count 221 10^3/uL (150-450); Red Blood Count 3.34 10^6/uL (4.70-6.10); Red Cell Distribution Width 13.1 % (11.0-15.0); White Blood Count 21.8 10^3/uL (4.0-11.0)
[2023-10-22 07:57] LABS: Glucometer 117 mg/dL (74-106)
[2023-10-22] MEDS: CETIRIZINE HCL 10 MG TABLET PO (08:12)
[2023-10-22] MEDS: MONTELUKAST SODIUM 10 MG TABLET PO (08:12)
[2023-10-22] MEDS: AZITHROMYCIN 250 MG TABLET 500 MG PO (08:12)
[2023-10-22] MEDS: CARBAMAZEPINE 200 MG TABLET PO ×2 (08:12→20:40)
[2023-10-22] MEDS: CHLORPROMAZINE 10 MG 10 EACH PO (08:13)
[2023-10-22] MEDS: DIVALPROEX SODIUM 250 MG TABLET.DR 500 MG PO (08:17)
[2023-10-22] MEDS: VILAZODONE 20 MG 20 EACH PO (08:23)
[2023-10-22 08:35] LABS: Alanine Aminotransferase 19 U/L (16-63); Albumin Globulin Ratio 0.5; Albumin Level 2.4 g/dL (3.4-5.0); Alkaline Phosphatase 70 U/L (46-116); Anion Gap 12.9; Aspartate Amino Transferase 17 U/L (15-37); BUN Creatinine Ratio 14.5; Bilirubin Total 0.3 mg/dL (0.2-1.0); Calcium 9.3 mg/dL (8.5-10.1); Carbon Dioxide 29.7 mmol/L (21.0-32.0); Chloride 102 mmol/L (98-107); Estimated GFR (African America >60 (>=60); Estimated GFR (Non-African Ame >60 (>=60); Globulin 4.7 g/dL; Glucose 138 mg/dL (74-106); Potassium 3.6 mmol/L (3.5-5.1); Sodium 141 mmol/L (136-145); Total Protein 7.1 g/dL (6.4-8.2)
[2023-10-22] MEDS: CEFTRIAXONE 1,000 MG in 0.9 % SODIUM CHLORIDE 50 ML 100 MG IV (09:22)
--- NOTE | 2023-10-22 09:56 | PM.IMPN1 ---
Progress Note: A&P Assessment and Plan (1) Sepsis: Assessment and Plan: Stable hemodynamics now with normal HR, now afebrile and normal lactate. C/w Rocephin/azithromycin for bacterial PNA. Qualifiers: Sepsis type: sepsis due to unspecified organism Sepsis acute organ dysfunction status: without acute organ dysfunction Qualified Code(s): A41.9 - Sepsis, unspecified organism (2) Asthma exacerbation: Assessment and Plan: Improved air entry/and wheezing but still SOB and hypoxic. Cw solumedrol/albuterol. Qualifiers: Asthma severity: unspecified severity Asthma persistence: intermittent Qualified Code(s): J45.21 - Mild intermittent asthma with (acute) exacerbation (3) Acute respiratory failure with hypoxia: Assessment and Plan: Persistent hypoxia with pulse Ox down to 85% on RA. Wean of O2 as tolerated. C/w IV steroids, IV abx and albuterol as needed (4) COVID-19: Assessment and Plan: On Systemic steroids. C/w isolation. Monitor resp status closely. (5) Pneumonia: Assessment and Plan: likely has superimposed bacterial PNA. On Rocephin/azithroymcin for CAP. C/w same. Qualifiers: Pneumonia type: due to unspecified organism Laterality: unspecified laterality Lung location: unspecified part of lung Qualified Code(s): J18.9 - Pneumonia, unspecified organism (6) Lactic acidosis: Assessment and Plan: Resolved. (7) Obsessive compulsive disorder: Assessment and Plan: C/w home medications Qualifiers: Obsessive-compulsive disorder type: mixed obsessional thoughts and acts Qualified Code(s): F42.2 - Mixed obsessional thoughts and acts (8) Bipolar 1 disorder: Assessment and Plan: C/w home medications. (9) Hypothyroid: Assessment and Plan: C/w levothyroxine. 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 Gets agitated sometimes, required extra ativan overnight. (11) NARINDER (obstructive sleep apnea): Assessment and Plan: CPAP qhs and during day when he is asleep. Internal Medicine - PN: Subj Subjective Interval history: Seen and examined. Appears tired and lethargic. Patient needed extra dose of Lorazepam for agitation at night. Patient still hypoxic - with pulse Ox down to 85% on RA. No resp distress noted on exam. Comfortable and calm. Exam Constitutional Vital Signs, click to edit/add: Last Vital Signs Temp 96.5 F L 10/22/23 08:02 Pulse 60 10/22/23 08:02 Resp 22 H 10/22/23 08:02 BP 111/74 10/22/23 08:02 Pulse Ox 94 L 10/22/23 08:02 O2 Del Method Nasal Cannula 10/22/23 08:02 O2 Flow Rate 2 10/22/23 08:02 Documenting provider has reviewed patient's vital signs: yes Common normals: no apparent distress and oriented x3 General appearance: lethargic and ill appearing HENMT Common normals: normocephalic and head/scalp atraumatic Respiratory Common normals: no use of accessory muscles Auscultation: diminished lung sounds Other: Wheezing improved. Improved air entry. Rhonchi persistent but improved. Neuro Common normals: oriented x3, moves all extremities, no focal motor deficits and no sensory deficits noted Psych Common normals: cooperative, denies homicidal ideation and denies suicidal ideation Internal Medicine - PN: Obj Da Labs Labs: Laboratory Results - last 24 hr 10/21/23 10/21/23 10/21/23 11:23 13:05 13:39 WBC 16.0 H RBC 3.78 L Hgb 12.7 L Hct 38.8 L MCV 102.6 H MCH 33.6 MCHC 32.7 RDW 13.1 Plt Count 216 MPV 9.8 Neut % (Auto) 87.2 H Lymph % (Auto) 5.5 L Saline % (Auto) 6.8 Eos % (Auto) 0.0 L Baso % (Auto) 0.2 Neut # (Auto) 13.9 H Lymph # (Auto) 0.9 L Saline # (Auto) 1.1 H Eos # (Auto) 0.0 Baso # (Auto) 0.0 Abs Immat Gran (auto) 0.05 H Imm/Tot Granulo (auto) 0.3 PT 11.1 INR 1.05 Sodium 142 Potassium 3.6 Chloride 102 Carbon Dioxide 36.6 H Anion Gap 7.0 BUN 18.0 Creatinine 1.88 H Est GFR ( Amer) 51 L Est GFR (Non-Af Amer) 42 L BUN/Creatinine Ratio 9.6 Glucose 113 H Lactate 3.6 H* 1.8 Calcium 9.2 Magnesium 2.0 Total Bilirubin 0.4 AST 14 L ALT 19 Alkaline Phosphatase 76 Troponin I High Sens 28.4 Total Protein 7.4 Albumin 2.5 L Globulin 4.9 Albumin/Globulin Ratio 0.5 POC Glucose 10/21/23 10/21/23 10/22/23 16:15 20:15 06:00 WBC 21.8 H RBC 3.34 L Hgb 11.1 L Hct 33.8 L MCV 101.2 H MCH 33.2 MCHC 32.8 RDW 13.1 Plt Count 221 MPV 11.0 Neut % (Auto) 88.1 H Lymph % (Auto) 7.0 L Saline % (Auto) 4.3 Eos % (Auto) 0.0 L Baso % (Auto) 0.1 L Neut # (Auto) 19.2 H Lymph # (Auto) 1.5 Saline # (Auto) 0.9 H Eos # (Auto) 0.0 Baso # (Auto) 0.0 Abs Immat Gran (auto) 0.12 H Imm/Tot Granulo (auto) 0.5 PT INR Sodium Potassium Chloride Carbon Dioxide Anion Gap BUN Creatinine Est GFR ( Amer) Est GFR (Non-Af Amer) BUN/Creatinine Ratio Glucose Lactate Calcium Magnesium Total Bilirubin AST ALT Alkaline Phosphatase Troponin I High Sens Total Protein Albumin Globulin Albumin/Globulin Ratio POC Glucose 193 H 204 H 10/22/23 10/22/23 07:54 08:00 WBC RBC Hgb Hct MCV MCH MCHC RDW Plt Count MPV Neut % (Auto) Lymph % (Auto) Saline % (Auto) Eos % (Auto) Baso % (Auto) Neut # (Auto) Lymph # (Auto) Saline # (Auto) Eos # (Auto) Baso # (Auto) Abs Immat Gran (auto) Imm/Tot Granulo (auto) PT INR Sodium 141 Potassium 3.6 Chloride 102 Carbon Dioxide 29.7 Anion Gap 12.9 BUN 18.0 Creatinine 1.24 Est GFR ( Amer) >60 Est GFR (Non-Af Amer) >60 BUN/Creatinine Ratio 14.5 Glucose 138 H Lactate Calcium 9.3 Magnesium Total Bilirubin 0.3 AST 17 ALT 19 Alkaline Phosphatase 70 Troponin I High Sens Total Protein 7.1 Albumin 2.4 L Globulin 4.7 Albumin/Globulin Ratio 0.5 POC Glucose 117 H
[2023-10-22 11:19] LABS: Glucometer 171 mg/dL (74-106)
[2023-10-22] MEDS: INSULIN ASPART 300 UNIT/3 ML PEN SUBQ (11:48)
[2023-10-22 16:20] LABS: Glucometer 147 mg/dL (74-106)
[2023-10-22] MEDS: CHLORPROMAZINE 25 MG 25 EACH PO (16:32)
[2023-10-22] MEDS: DIVALPROEX SODIUM 500 MG TABLET.DR PO (20:39)
[2023-10-22] MEDS: CHLORPROMAZINE 50 MG 50 EACH PO (20:39)
[2023-10-22] MEDS: LITHIUM CARBONATE 150 MG CAPSULE 300 MG PO ×2 (20:45→20:47)
[2023-10-22] MEDS: LORAZEPAM 1 MG TABLET 2 MG PO (20:46)
[2023-10-22 20:53] LABS: Glucometer 132 mg/dL (74-106)
[2023-10-23] VITALS (7 sets, daily range): BP systolic 110–126; BP diastolic 70–77; PULSE 86–107; TEMP 36.8–39.1; O2SAT 86–99
[2023-10-23] MEDS: ALBUTEROL SULFATE 200 PUFF/6.7 GM INHALER IH ×2 (03:53→07:38)
[2023-10-23] MEDS: LEVOTHYROXINE SODIUM 75 MCG TABLET 150 MCG PO ×2 (05:03→07:48)
[2023-10-23] MEDS: METHYLPREDNISOLONE SOD SUCC PF 40 MG/ML VIAL IVP (05:03)
[2023-10-23] MEDS: risperiDONE 1 MG TABLET PO (05:03)
[2023-10-23 07:44] LABS: Glucometer 100 mg/dL (74-106)
--- NOTE | 2023-10-23 07:48 | RESP.RT ---
Pt was on room air. placed on 1L NC and recovered to 90%
[2023-10-23] MEDS: ACETAMINOPHEN 325 MG TABLET 650 MG PO (07:50)
[2023-10-23 08:03] LABS: Basophils Percent Auto 0.2 % (0.2-2.0); Hematocrit 34.1 % (42.0-54.0); Hemoglobin 11.1 g/dL (14.0-18.0); Immature Granulocytes Abs Auto 0.22 10^3/uL (0.00-0.03); Immature Granulocytes Pct Auto 1.1 % (0.0-0.5); Lymphocytes Absolute Auto 1.1 10^3/uL (1.2-3.8); Lymphocytes Percent Auto 5.4 % (20.5-60.0); Mean Corpuscular HGB Conc 32.6 g/dL (29.9-35.2); Mean Corpuscular Hemoglobin 33.8 pg (25.9-34.0); Mean Platelet Volume 9.8 fL (9.5-13.5); Monocytes Absolute Auto 1.3 10^3/uL (0.3-0.8); Neutrophils Absolute Auto 18.1 10^3/uL (1.4-6.5); Neutrophils Percent Auto 87.3 % (43.0-75.0); Platelet Count 244 10^3/uL (150-450); Red Blood Count 3.28 10^6/uL (4.70-6.10); Red Cell Distribution Width 13.6 % (11.0-15.0); White Blood Count 20.7 10^3/uL (4.0-11.0)
[2023-10-23 08:19] LABS: Alanine Aminotransferase 21 U/L (16-63); Albumin Globulin Ratio 0.5; Albumin Level 2.3 g/dL (3.4-5.0); Alkaline Phosphatase 71 U/L (46-116); Anion Gap 10.7; Aspartate Amino Transferase 20 U/L (15-37); BUN Creatinine Ratio 11.2; Bilirubin Total 0.2 mg/dL (0.2-1.0); Calcium 8.7 mg/dL (8.5-10.1); Carbon Dioxide 31.5 mmol/L (21.0-32.0); Chloride 104 mmol/L (98-107); Estimated GFR (African America >60 (>=60); Estimated GFR (Non-African Ame >60 (>=60); Globulin 4.6 g/dL; Glucose 113 mg/dL (74-106); Potassium 4.2 mmol/L (3.5-5.1); Sodium 142 mmol/L (136-145); Total Protein 6.9 g/dL (6.4-8.2)
--- NOTE | 2023-10-23 08:25 | XR_ITS ---
The [address] [address] Patient Name: FAHAD BERNABE MRN: [id number] date: 1990 Sex: M Assigned Patient Location: [place] Current Patient Location: [place] Accession/Order Number: [id number] Exam Date: 10/23/2023 08:38 Report Date: 10/23/2023 09:11 At the request of: SHAIKH TERRY Procedure: XR chest 1V EXAM: XR chest 1V HISTORY: sob COMPARISON: 10/21/2023 TECHNIQUE: Portable FINDINGS: LUNGS: Low lung volumes. Moderate parenchymal infiltrates with a central prominence. The lung apices are obscured by the head position VASCULATURE: No increased pulmonary vasculature. PLEURA: No pneumothorax, effusion, or pleural thickening. CARDIAC: No cardiomegaly or cardiac silhouette abnormality. MEDIASTINUM: No visible mass or adenopathy. BONES: No fracture or visible bone lesion. OTHER: Negative. XR/XR chest 1V IMPRESSION: Pulmonary edema Electronically authenticated by: HAILE ZHU Date: 10/23/2023 09:11
--- NOTE | 2023-10-23 09:36 | PM.DS1 ---
DS: Providers Provider Date of admission: 10/21/23 14:30 Primary care physician: LIYA HERNANDEZ DO Admitting clinician: Shaikh Emir Attending physician on admission: Shaikh Emir Attending physician on discharge: Shaikh Emir Discharging clinician: Shaikh Emir Anticipated date of discharge: 10/23/23 DS: Diagnosis Discharge Diagnosis (1) Sepsis: Assessment and plan: Stable hemodynamics now. Medically stable for discharge on oral Levaquin. Qualifiers: Sepsis type: sepsis due to unspecified organism Sepsis acute organ dysfunction status: without acute organ dysfunction Qualified Code(s): A41.9 - Sepsis, unspecified organism (2) Asthma exacerbation: Assessment and plan: No wheezing and good air entry. Still experiencing CALLOWAY, but much improved from before. Stable for discharge however. Qualifiers: Asthma severity: unspecified severity Asthma persistence: intermittent Qualified Code(s): J45.21 - Mild intermittent asthma with (acute) exacerbation (3) Acute respiratory failure with hypoxia: Assessment and plan: Intermittent hypoxia noted today but overall improved. Will get a Six minute walk test to determine eligibility for Home O2. (4) COVID-19: Assessment and plan: Will d/c on oral Decadron for 7 more days. (5) Pneumonia: Assessment and plan: Stable for d/c. Will prescribe oral Levaquin x 5 days. Qualifiers: Pneumonia type: due to unspecified organism Laterality: unspecified laterality Lung location: unspecified part of lung Qualified Code(s): J18.9 - Pneumonia, unspecified organism (6) Lactic acidosis: Assessment and plan: Resolved (7) Obsessive compulsive disorder: Assessment and plan: Stable. C/w home medications Qualifiers: Obsessive-compulsive disorder type: mixed obsessional thoughts and acts Qualified Code(s): F42.2 - Mixed obsessional thoughts and acts (8) Bipolar 1 disorder: Assessment and plan: Stable. C/w home medications (9) Hypothyroid: Assessment and plan: c/w levothyroxine. 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 Stable for discharge. (11) NARINDER (obstructive sleep apnea): Assessment and plan: C/w CPAP. DS: Summary Hospital Course Hospital Course: 33-year-old male with history of Down's syndrome presented to ER via EMS with shortness of breath, cough and hypoxia. Patient tested positive for COVID day prior to admission and presented to ED for worsening symptoms. Patient met sepsis criteria and was admitted for sepsis secondary to COVID-pneumonia/suspected superimposed bacterial pneumonia lactic acidosis, acute respiratory failure with hypoxia and asthma exacerbation. Patient was treated with IV fluids, IV solumedrol, IV rocephin/azithromycin. He clinically improved gradually over the course of admission and is doing much better today. He continued to have intermittent hypoxia and still reports CALLOWAY but overall sig improved from day of admission. He will need a 6 min walk test to determine his eligibility for home O2. Patient is otherwise medically stable for discharge. I will send him home with Decadron for COVID/asthma and oral Levaquin to finish treatment course for Pna. Status at Discharge Functional status at discharge: independent ambulation Overall status at discharge: patient is back to baseline Time Spent with Patient Time attestation: Total time spent providing and/or coordinating discharge services: Exam Constitutional Vital Signs, click to edit/add: Last Vital Signs Temp 102.3 F H 10/23/23 07:52 Pulse 97 H 10/23/23 07:52 Resp 18 10/23/23 07:52 BP 126/77 10/23/23 07:52 Pulse Ox 91 L 10/23/23 07:52 O2 Del Method Nasal Cannula 10/23/23 07:52 O2 Flow Rate 1 10/23/23 07:52 Documenting provider has reviewed patient's vital signs: yes Common normals: no apparent distress and oriented x3 HENMT Common normals: normocephalic and head/scalp atraumatic Respiratory Common normals: no use of accessory muscles Auscultation: diminished lung sounds Other: Wheezing improved. Improved air entry. Neuro Common normals: oriented x3, moves all extremities, no focal motor deficits and no sensory deficits noted Psych Common normals: cooperative, denies homicidal ideation and denies suicidal ideation DS: Data Data Completed and Pending Labs on day of discharge: Labs from last 24 hours 10/23/23 10/23/23 10/22/23 07:57 07:43 20:52 WBC 20.7 H RBC 3.28 L Hgb 11.1 L Hct 34.1 L MCV 104.0 H MCH 33.8 MCHC 32.6 RDW 13.6 Plt Count 244 MPV 9.8 Neut % (Auto) 87.3 H Lymph % (Auto) 5.4 L [place] % (Auto) 6.0 Eos % (Auto) 0.0 L Baso % (Auto) 0.2 Neut # (Auto) 18.1 H Lymph # (Auto) 1.1 L [place] # (Auto) 1.3 H Eos # (Auto) 0.0 Baso # (Auto) 0.0 Abs Immat Gran (auto) 0.22 H Imm/Tot Granulo (auto) 1.1 H Sodium 142 Potassium 4.2 Chloride 104 Carbon Dioxide 31.5 Anion Gap 10.7 BUN 14.0 Creatinine 1.25 Est GFR ( Amer) >60 Est GFR (Non-Af Amer) >60 BUN/Creatinine Ratio 11.2 Glucose 113 H Calcium 8.7 Total Bilirubin 0.2 AST 20 ALT 21 Alkaline Phosphatase 71 Total Protein 6.9 Albumin 2.3 L Globulin 4.6 Albumin/Globulin Ratio 0.5 POC Glucose 100 132 H 10/22/23 10/22/23 16:19 11:16 WBC RBC Hgb Hct MCV MCH MCHC RDW Plt Count MPV Neut % (Auto) Lymph % (Auto) [place] % (Auto) Eos % (Auto) Baso % (Auto) Neut # (Auto) Lymph # (Auto) [place] # (Auto) Eos # (Auto) Baso # (Auto) Abs Immat Gran (auto) Imm/Tot Granulo (auto) Sodium Potassium Chloride Carbon Dioxide Anion Gap BUN Creatinine Est GFR ( Amer) Est GFR (Non-Af Amer) BUN/Creatinine Ratio Glucose Calcium Total Bilirubin AST ALT Alkaline Phosphatase Total Protein Albumin Globulin Albumin/Globulin Ratio POC Glucose 147 H 171 H Discharge Plan Discharge Disposition: Xfer [facility] Discharge Medications: New dexamethasone 6 mg tablet 6 mg PO DAILY Qty: 7 0RF levofloxacin 750 mg tablet 750 mg PO DAILY Qty: 5 0RF Continued divalproex 500 mg tablet,delayed release (DR/EC) 500 mg PO 1999 Rx Instructions: Take 3 tablets at bedtime chlorpromazine 10 mg tablet 10 mg PO 0800 Rx Instructions: Take 2 tables by mouth in morning carbamazepine 200 mg tablet 200 mg PO 0800,1999 Rx Instructions: Take 2 tablets by mouth twice daily clonidine HCl 0.2 mg tablet 0.2 mg PO .0800,1200, 1999 Rx Instructions: Take one tablet by mouth 3 times daily chlorpromazine 25 mg tablet 25 mg PO 1600 Rx Instructions: Take one tablet by mouth daily at 4 pm chlorpromazine 50 mg tablet 50 mg PO 1999 Rx Instructions: Take 3 tablets by mouth at bedtime vitamin B complex Capsule 1 cap PO .qd sennosides [senna] 8.6 mg tablet 8.6 mg PO BID Rx Instructions: Take 2 tablets by mouth 2 times daily albuterol sulfate 2.5 mg /3 mL (0.083 %) solution for nebulization 2.5 mg continuous nebulization Q6H PRN (Reason: shortness of breath or wheezing) divalproex 250 mg tablet,delayed release (DR/EC) 500 mg PO 0800 famotidine 20 mg tablet 20 mg PO 1200 lorazepam 2 mg tablet 2 mg PO BEDTIME Rx Instructions: Take 1 tablet at bedtime lithium carbonate 300 mg capsule 300 mg PO BEDTIME Rx Instructions: Take one capsule by mouth at bedtime levothyroxine 150 mcg tablet 150 mcg PO DAILY montelukast 10 mg tablet 10 mg PO .once daily Rx Instructions: Take one tablet by mouth daily furosemide 20 mg tablet 20 mg PO BID Rx Instructions: 0800, 1600 gabapentin 100 mg capsule 100 mg PO TID Rx Instructions: Take one tablet by mouth 3 times daily risperidone 1 mg tablet 1 mg PO TID Rx Instructions: Take one tablet by mouth 3 times daily vilazodone 20 mg tablet 20 mg PO .morning Rx Instructions: Take 1 and half tablets by mouth morning acetaminophen 325 mg capsule 325 mg PO Q4H guaifenesin [Chest Congestion Relief] 400 mg tablet 400 mg PO BID PRN (Reason: Congestion) Qty: 0 0RF Rx Instructions: Take 1 tablet by mouth twice a day Print Language: Taiwanese Forms: Portal Instructions Follow Up Appointments: F/u with PCP in one week
[2023-10-23] MEDS: CARBAMAZEPINE 200 MG TABLET PO (09:40)
[2023-10-23] MEDS: CHLORPROMAZINE 10 MG 10 EACH PO (09:41)
[2023-10-23] MEDS: CEFTRIAXONE 1,000 MG in 0.9 % SODIUM CHLORIDE 50 ML 100 MG IV (09:41)
[2023-10-23] MEDS: DIVALPROEX SODIUM 250 MG TABLET.DR 500 MG PO (09:41)
[2023-10-23] MEDS: MONTELUKAST SODIUM 10 MG TABLET PO (09:43)
[2023-10-23] MEDS: VILAZODONE 20 MG 20 EACH PO (09:48)
[2023-10-23] MEDS: CETIRIZINE HCL 10 MG TABLET PO (09:51)
[2023-10-23] MEDS: FUROSEMIDE 40 MG/4 ML VIAL IVP (09:51)
[2023-10-23] MEDS: AZITHROMYCIN 250 MG TABLET 500 MG PO (09:51)
--- NOTE | 2023-10-23 11:37 | SWNOTE1 ---
Pt is from [facility] home. Pt did walk test and does not need home oxygen. Pt's mother is transporting him back to [place], he is medically stable for discharge today.
--- NOTE | 2023-10-23 11:56 | CM.NOTE ---
Rounds made with Dr. Field, pt will have walk test today for any oxygen needs at discharge. Pt will discharge back to [facility].
--- NOTE | 2023-10-25 15:00 | CM.DCFOLLOWU ---
Patient is from [facility]
== END 2023-10-23 11:50 | disposition home or self-care (01) | DRG 720 ==
LOC: ER 13:41 → MS 15:13
PROVIDERS: Admitting Provider Internal Medicine; Emergency Provider Emergency Medicine; PCP Family Medicine; Visit Provider Internal Medicine
DX: A41.89 Other specified sepsis (principal); U07.1 COVID-19; Q90.9 Down syndrome, unspecified; J12.82 Pneumonia due to coronavirus disease 2019; J45.21 Mild intermittent asthma with (acute) exacerbation; J96.01 Acute respiratory failure with hypoxia; F42.2 Mixed obsessional thoughts and acts; E06.3 Autoimmune thyroiditis; E66.2 Morbid (severe) obesity with alveolar hypoventilation; K59.09 Other constipation; L30.9 Dermatitis, unspecified; F31.9 Bipolar disorder, unspecified; E87.20 Acidosis, unspecified; J15.9 Unspecified bacterial pneumonia; Z98.890 Other specified postprocedural states; Z79.890 Hormone replacement therapy; Z79.899 Other long term (current) drug therapy; Z68.41 Body mass index [BMI] 40.0-44.9, adult
CPT/HCPCS: 36415; 71045; 80053; 82805; 82948; 83605; 83735; 84484; 85025; 85610; 87040; 93005; 94640; 94761; 96365; 96366; 96367; 96372; 96375; 96376; 99285; J0456; J0696; J1644; J1940; J2919

== ENCOUNTER 2024-04-23 06:59 | Outpatient (OUT) | payer MEDICAID, SELFPAY ==
--- OUTSIDE RECORDS SUMMARY | 2024-04-23 07:04 | XMS_ITS | CCD ---
Author Organization [facility] Care Team Providers Care Duty Manager Name Role Phone Unavailable Unavailable Unavailable Kemp, Iftikhar A Primary Care Provider Unavaila ble Kemp, Iftikhar A Primary Care Provider Kemp DOIftikhar A Primary Care Provider FRANCK CARBALLO Attending Unavailab le KEMP, IFTIKHAR A Primary Care Unavailable KEMP, IFTIKHAR A Primary Care Unavailable DEENAZULAY Attending U navailable KEMP, IFTIKHAR Otto Attending Unavailable KEMP, IFTIKHAR A Referring Unavailable KEMP, IFTIKHAR A Primary Care Unavailable DEENAZULAY Referring U navailable KEMP, IFTIKHAR A Primary Care Unavailable WYATT STEIN Admitting Unavailab DOMO Silva Attending Unavailable LETTY DAVENPORT Consulting Unavail able FRANCK CARBALLO Admitting Unavailab remi CARBALLOFRANCK DONATO Attending Unavailab le KEMP, IFTIKHAR A Primary Care Unavailable Unavailable Primary Care Provider Unavailabl e Thiago Chandler Unavailable Kemp, DO Buitrago A Primary Care Provider [phone] MD Thiago Chandler Attending Provider Unavailable Primary Care Provider Unavailabl e PROVIDER, UNKNOWN Admitting Unavailable PROVIDER, UNKNOWN Attending Unavailable PROVIDER, UNKNOWN Admitting Unavailable PROVIDER, UNKNOWN Attending Unavailable Kemp, DO Iftikhar A Primary Care Provider Martha Richmond Unavailable Kemp, DO Iftikhar A Primary Care Provider [phone] MD Thiago Chandler Attending Provider Kemp, DO Buitrago A Primary Care Provider MD Thiago Chandler Attending Provider JUSTO, DR IFTIKHAR Otto Admitting Unavailable KEMP, DR [...] Unavailable ZIEBER, DR ZULAY Cohen Consulting Unavailable KEMPIFTIKHAR Primary Care Physician DO Iftikhar Kemp Primary Care Provider [phone] MD Thiago Chandler Attending Provider Kemp Iftikhar MALLOY Primary Care Provider [phone] KEMPIFTIKHAR Primary Care Unavailable LIBAN OTERO Attending Unavailable KEMP, IFTIKHAR Admitting Unavailable KEMP, IFTIKHAR Attending Unavailable KEMP, IFTIKHAR Referring Unavailable KEMP, IFTIKHAR Admitting Unavailable KEMP, IFTIKHAR Attending Unavailable KEMP, IFTIKHAR Admitting Unavailable KEMP, IFTIKHAR Attending Unavailable MD Fahad Echavarria Attending Provider [phone] DO Iftikhar Kemp Primary Care Provider Thiago Chandler Admitting Unavailable Thiago Chandler Attending Unavailable KempIftikhar Primary Care Unavailable Olexa, Fahad Admitting Unavailable Olexa, Fahad Attending Unavailable KempIftikhar Primary Care Unavailable Olexa, Fahad Admitting Unavailable Olexa, Fahad Attending Unavailable KempIftikhar Primary Care Unavailable Olexa, Fahad Admitting Unavailable Olexa, Fahad Attending Unavailable Kemp, Iftikhar A Primary Care Unavailable KempDO Iftikhar Primary Care Provider Iftikhar Kemp MD Primary Care Provider Iftikhar Kemp MD Unavailable [phone] WYATT LEY Attending Unavailable WYATT LEY Attending Unavailable WYATT LEY Attending Unavailable Allergies Allergy Classification Reported Allergen(s) Allergy Type Date of Onset Reaction(s) Facility NSAIDs (1 source) Naproxen Drug Allergy 8 [facility] (20 sources) Naproxen; Translations: [NAPROXEN] Drug Allergy 8 [facility] Work Phone: (14 sources) Seasonal allergy Propensity to adverse reactions 3 Unknown, Unknown Reaction [facility] (1 source) Naproxen Drug Allergy [facility] Repository (4 sources) Non-steroidal anti-inflammato ry agent; Translations: [NSAIDs] Drug allergy [facility] (4 sources) Salicylic Acid; Translations: [salicylates] Drug Allergy [facility] (1 source) Naproxen Drug Allergy 0 [facility] Repository Medications Current Medications Medication Drug Class(es) Dates Sig (Normalized) Sig (Original) albuterol 0.83 mg/ml inhalation solution (20 sources) beta2-Adrenergic Agonist Start: 12-31-2018 take 1 [...] mg / clavulanate 125 mg oral tablet (17 sources) Penicillin-class Antibacterial Start: 02-26-2019 End: 03-05-2019 take 1 tablet by mouth every twelve hours amoxicillin-clavulanate (AUGMENTIN) 875-125 mg per tablet Take 1 (one) tablet by mouth every 12 (twelve) hours for 4 days . 8 tablet 0 03/01/2019 03/05/2019 Active Start: 02-22-2019 End: 12-12-2023 take 1 tablet by mouth twice daily Amoxicillin-Pot Clavulanate (Augmentin) 875-125 mg tablet Discontinued 1 TAB PO Twice daily February 22, 2019 1:00am December 12, 2023 9:59am Antacid 500 MG (4 sources) take 1 tablet by moira th once daily Antacid 500 MG 1 tablet Orally Once a day Active B Complex - (4 sources) B Complex - as d irected Orally 1 daily Active B Complex Vitamins (B COMPLEX 100 PO) (2 sources) B Complex Vitami ns (B COMPLEX 100 PO) Take by mouth. Active b complex vitamins capsule (6 sources) take 1 capsule by mo uth once daily b complex vitamins capsule Take 1 capsule by mouth Daily Active take 1 capsule by mouth once frank ly b complex vitamins capsule Take 1 capsule by mouth daily . 0 Active take 1 capsule by mouth once frank ly b complex vitamins capsule Take 1 capsule by mouth daily . 0 Suspended bacitracin 0.5 unt/mg ophthalmic ointment (15 sources) Start: 12-31-2018 take 1 dose into the eye(s) three times daily Bacitracin Active 1 DOSE OPHTHALMIC Three times daily December 31, 2018 1:00am Topical benzonatate 100 mg oral capsule (20 sources) Non-narcotic Antitussive Start: 01-08-2018 take 100 mg by mouth three times daily Benzonatate Active 100 MG PO Three times daily December 31, 2018 1:00am benzoyl peroxide 50 mg/ml medicated liquid soap (20 sources) Start: 12-31-2018 apply 1 dose topically once daily Benzoyl Peroxide Active 1 DOSE TOPICAL DAILY@2000 December 31, 2018 1:00am WASH FACE, CHEST, AND [...] / magnesium hydroxide 200 mg chewable tablet (15 sources) Start: 12-31-2018 Calcium Carbonate-Mag Hydroxid (Antacid (Calcium Carb-Mag Hyd)) 1,000-200 mg Tablet,Chewable Active 2 TAB PO Q4H December 31, 2018 1:00am carBAMazepine 200 mg oral tablet (20 sources) Mood Stabilizer Start: 03-12-2024 take 2 tablets by mouth twice daily carBAMazepine (TEGretol) 200 MG tablet TAKE 2 TABLETS BY MOUTH TWICE DAILY TEGRETOL 03/12/2024 Active Start: 04-25-2023 take 1 tablet by moira th twice daily Carbamazepine Active 200 MG PO [...] times daily. Active take 1 capsule by mo [facility] every twelve hours carBAMazepine ER 200 MG 1 tablet Orally Twice a day Active chlorproMAZINE hydrochloride 50 mg oral tablet (20 [...] At 4PM and 150mg at HS take 2 tablets by mo uth in the morning chlorproMAZINE (Thorazine) 10 MG tablet TAKE TWO TABLETS BY MOUTH IN THE MORNING THORAZINE Active take 1 tablet by moira th once daily chlorproMAZINE (Thorazine) 25 MG tablet TAKE ONE TABLET BY MOUTH DAILY AT 4PM THORAZINE Active take 3 tablets by mo ut at bedtime chlorproMAZINE (Thorazine) 50 MG tablet TAKE 3 TABLETS BY MOUTH AT BEDTIME THORAZINE Active take 5 tablets by mo uth three times daily chlorproMAZINE 10 MG Tab Take 50 mg by mouth 3 times daily. Active take 1 tablet by moira th every twelve hours chlorproMAZINE HCl 10 MG 1 tablet Orally Twice a day Active clindamycin 10 mg/ml topical lotion (20 sources) Lincosamide Antibacterial Start: 03-14-2024 clindamycin (Cleocin T) 1 % lotion APPLY TOPICALLY TO FACE AND BACK EVERY MORNING CLEOCIN T 03/14/2024 Active Start: 12-31-2018 apply 1 dose topical ly twice daily Clindamycin Phos-Skin Clnsr 19 Active [...] day Active Cpap (Continuous Positive rway Pressure) (10 sources) Start: 04-25-2023 Cpap (Continuo us Positive Airway Pressure) Active 0 .Route April 25, 2023 12:00am [facility] Start: 04-25-2023 Cpap (Continuo us Positive Airway Pressure) Active 0 .ROUTE April 25, 2023 12:00am [facility] CPAP Machine (4 sources) CPAP Machine aut o CPAP 09-24 Active CPAP Machine aut o CPAP 09-24 with 3 liters of O2 Active divalproex [...] 20 mcg furosemide 20 mg oral tablet (20 sources) Loop Diuretic Start: 03-12-2024 take 1 tablet by mouth twice daily furosemide (Lasix) 20 MG tablet TAKE ONE TABLET BY MOUTH TWICE DAILY LASIX 03/12/2024 Active Start: 04-25-2023 take 1 tablet by moira th twice daily Furosemide Active 1 TAB PO [...] 2019 10:10am take 1 capsule by mo [facility] every twenty-four hours Gabapentin 100 MG 1 [...] day Active linaclotide 0.072 mg oral capsule (16 sources) Guanylate Cyclase-C Agonist Start: 03-16-2021 take [...] take 1 capsule by mouth once daily [place] Carbonate Active 300 MG PO Daily April 25, 2023 12:00am [employer] capsule Orally Once a day; Note: Source Status: Taking; Provider: Ramesh Das ( ) Start: 02-23-2019 End: 03-01-2019 take 300 mg by mouth once daily 300 mg, Oral, Nightly, First dose on 02/23/19 at 2230 Start: 12-31-2018 End: 02-22-2019 take 300 mg by mouth once daily at bedtime [place] Carbonate Discontinued 300 MG PO Daily at [...] mg oral tablet (20 sources) Benzodiazepine Start: 03-18-2024 take 1 tablet by mouth at bedtime LORazepam (Ativan) 2 MG tablet TAKE ONE TABLET BY MOUTH AT BEDTIME ATIVAN 03/18/2024 Active Start: 04-25-2023 take 1 tablet by moira th once daily at bedtime Lorazepam Active 2 [...] 0 Start Date: 11/05/10 Status: Ordered Oxygen (10 sources) Start: 04-25-2023 Oxygen Active 0 .Route April 25, 2023 12:00am 3 liters [facility] [employer] Start: 04-25-2023 Oxygen Active 0 .ROUTE April 25, 2023 12:00am 3 liters [facility] [employer] Oxygen 3 liters (4 sources) Oxygen 3 [...] day Active Sennosides (Senna) 8.6 mg Capsule (15 sources) Start: 12-31-2018 take 2 capsules by [...] PO Twice daily December 31, 2018 1:00am sennosides, long term 8.6 mg oral tablet (1 source) Start: 03-12-2024 take 2 tablets by mouth in the morning Senna-Time 8.6 MG tablet Take 2 tablets by mouth in the morning and 2 tablets before bedtime. 03/12/2024 Active sulfacetamide sodium 100 mg/ml topical lotion (16 sources) Sulfonamide Antibacterial Start: 03-11-2024 sulfacetamide suspension (Klaron) 10 % lotion topical APPLY TOPICALLY TO FACE AND BACK NEEDED KLARON 03/11/2024 Active Start: 12-31-2018 apply 1 dose topical ly once daily at bedtime Sulfacetamide Sodium Active [...] Refills(s) 0 Start Date: 11/05/10 Status: Ordered End: 01-08-2018 take 1 tablet by mouth in the morning, then take 3 tablets by mouth at bedtime divalproex (Depakote) 500 MG EC tablet TAKE ONE TABLET BY MOUTH IN THE MORNING AND THREE TABLETS AT BEDTIME DEPAKOTE DR Active take 4 tablets by mo ut at bedtime divalproex [address] [...] 2 tablets at 8pm . 0 Active Vitamin B Complex (4 sources) Vitamin B Comple x - as directed Orally Active Vitamin B Complex (B-Complex) Tablet (15 sources) Start: 12-31-2018 take 1 tablet by [...] Sig (Original) acetaminophen 325 mg oral tablet (20 sources) Start: 02-23-2019 End: 03-01-2019 take 1 tablet by mouth every six hours as needed 650 mg, Oral, Every 6 hours PRN, mild pain, Starting 02/23/19 at 2117 Start: 12-31-2018 take 650 mg by mouth every four hours Acetaminophen Active 650 MG PO Q4H December 31, 2018 1:00am Start: 01-06-2018 take 2 tablets by mo [facility] every four hours as needed 650 mg, Oral, EVERY 4 HOURS NEEDED, Starting 01/06/18 at 1609, Until Discontinued, Mild Pain, Oral temp > 100.4 F Maximum dose of acetaminophen is 4000 mg from all sources in 24 hours. take 2 tablets by mo [facility] every six hours as needed for pain [...] 3 mL azithromycin 250 mg oral tablet (15 sources) Macrolide Antimicrobial Start: 12-31-2018 End: 01-02-2019 [...] 1 Dose bisacodyl 10 mg rectal suppository (16 sources) Stimulant Laxative Start: 02-26-2019 End: 03-01-2019 bisacodyL (DULCOLAX) suppository 10 mg Start: 12-31-2018 End: 02-22-2019 Biscolax Discontinued 10 MG WA Daily December 31, 2018 4:21pm February 22, 2019 10:10am Start: 12-31-2018 End: 02-22-2019 Biscolax Discontinued 10 MG WA Daily December 31, 2018 12:00am February 22, 2019 9:10am Start: 12-31-2018 End: 02-22-2019 Biscolax Discontinued 10 MG WA Daily December 31, 2018 1:00am February 22, 2019 10:10am cefTRIAXone 1000 mg injection (1 source) Cephalosporin [...] Ordered docusate sodium 50 mg / sennosides, long term 8.6 mg oral tablet (1 source) Start: [...] prophylaxis fluticasone propionate 0.5 mg/ml topical cream (15 sources) Corticosteroid Start: 12-31-2018 End: 02-22-2019 apply [...] abp>160 loperamide hydrochloride 2 mg oral capsule (15 sources) Opioid Agonist Start: 12-31-2018 End: 02-22-2019 Loperamide Discontinued 4 MG PO As Directed December 31, 2018 1:00am February 22, 2019 10:11am See Intructions loratadine 10 mg oral tablet (15 sources) Start: 12-31-2018 End: 02-22-2019 take 10 [...] 0.5 gm/hour. methylPREDNISolone 4 mg oral tablet (16 sources) Corticosteroid Start: 12-31-2018 End: 01-02-2019 Methylprednisolone [...] buccal pouch. nystatin 100 unt/mg topical powder (15 sources) Polyene Antifungal Start: 12-31-2018 End: 02-22-2019 apply 1 dose topically twice daily Nystatin Discontinued 1 DOSE TOPICAL Twice daily December 31, 2018 1:00am February 22, 2019 10:11am 2 ml ondansetron 2 mg/ml injection (17 sources) Serotonin-3 Receptor Antagonist Start: 02-23-2019 End: [...] MIXTURE given to patient. polyethylene glycol 3350 05099 mg powder for oral solution (4 sources) [...] Translations: [Epigastric pain] Episodic Acute myocardial infarction (15 sources) Myocardial infarction; Translations: [Myocardial infarction type 2] 01-16-2019 Chronic Diseases of white blood cells (2 sources) Leukocytosis; Translations: [Elevated white blood cell count, unspecified] Onset: 8 01-07-2018 Chronic Epilepsy; convulsions (15 sources) Seizure disorder; Translations: [Epilepsy, unspecified, not intractable, without status epilepticus] 12-31-2018 Chronic Esophageal disorders (15 sources) Gastroesophageal reflux disease; Translations: [Gastro-esophageal reflux disease without esophagitis] 12-31-2018 Chronic Fracture of upper limb (20 sources) Fracture of distal end of radius; Translations: [Unspecified fracture of the lower end of unspecified radius, initial encounter for closed fracture] Onset: 4 09-07-2023 Episodic Intestinal obstruction without hernia (2 sources) Food bolus obstruction of intestine; Translations: [Other intestinal obstruction unspecified as to partial versus complete obstruction] Onset: 2 Episodic Mycoses (4 sources) Pain in toe; Translations: [Tinea unguium] 12-21-2023 Episodic Osteoarthritis (16 sources) Osteoarthritis of joint of right hand; Translations: [Other polyosteoarthritis] 10-31-2023 Chronic Other aftercare (4 sources) Other buttermaker continuous churn (current) drug therapy; Translations: [OTH CCO CURRENT DRUG THERAPY] Onset: 3 Episodic Other congenital anomalies (20 sources) Anomaly of chromosome pair 21; 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, unspecified] Onset: 8 01-07-2018 Chronic Other congenital anomalies (3 sources) Down syndrome, unspecified; Translations: [Down's syndrome] 12-06-2023 Chronic Other gastrointestinal disorders (2 sources) Esophageal [...] Onset: 4 Episodic Other lower respiratory disease (15 sources) Lower respiratory tract infection; Translations: [Unspecified acute lower respiratory infection] 12-31-2018 Episodic Other lower respiratory disease (15 sources) Hypoxia; Translations: [Hypoxemia] 12-31-2018 Episodic Other [...] Chronic Other nutritional; endocrine; and metabolic disorders (15 sources) Obesity; Translations: [Obesity, unspecified] 12-31-2018 Chronic [...] physiological development in childhood] Onset: 4 Episodic Other skin disorders (4 sources) Asteatosis cutis; Translations: [Xerosis cutis] 12-21-2023 Episodic Pneumonia (except that caused by tuberculosis or sexually transmitted disease) (20 sources) Infective pneumonia; Translations: [Pneumonia] Onset: 8 01-07-2018 Episodic Pulmonary heart disease (20 sources) Pulmonary hypertension; Translations: [Pulmonary hypertension, unspecified] Onset: 2 Resolved: 2 Chronic Residual codes; unclassified (20 sources) Obstructive sleep apnea syndrome; Translations: [Obstructive sleep apnea (adult) (pediatric)] 01-16-2019 Chronic Residual codes; unclassified (7 sources) Obstructive sleep apnea (adult) (pediatric); Translations: [Obstructive sleep apnea (adult)(pediatric)] Onset: 2 Resolved: 2 Chronic Residual codes; unclassified (1 source) Obstructive sleep apnea (adult)(pediatric); Translations: [Obstructive sleep apnea (adult) (pediatric)] Onset: 3 Chronic Thyroid disorders (19 sources) Hypothyroidism; Translations: [Hypothyroidism, unspecified] Onset: 8 01-07-2018 Chronic Unclassified (3 sources) PERSONAL HISTORY OF COVID-19; Translations: [PERSONAL HISTORY OF COVID-19] Onset: 2 Unclassified (4 sources) Complication of ventilation therapy; Translations: [Intolerance of noninvasive positive pressure therapy] 12-06-2023 Viral infection (1 source) COVID-19; Translations: [Pneumonia [...] AND TESTES INIT] Onset: 07-14-2021 Episodic Other connective tissue disease (2 sources) Pain of toes of bilateral feet; Translations: [Pain in right toe(s)] 10-12-2023 Episodic Other lower respiratory disease (1 source) Personal history of pneumonia (recurrent); Translations: [PERSONAL HX OF PNEUMONIA RECURRENT] Onset: 06-03-2021 Episodic Respiratory failure; insufficiency; arrest (adult) (7 sources) Respiratory failure; Translations: [Acute respiratory failure] Onset: 02-23-2019 02-23-2019 Episodic Unclassified (1 source) PERSONAL HISTORY OF COVID-19; Translations: [PERSONAL HISTORY OF COVID-19] Onset: 06-01-2021 Results Test Name Value Interpretation Reference Range Facility XR hand RT min 3V*on 024 XR hand RT min 3V* [facility] [address] [place] [address] XRay Report Signed Patient: Fahad Bernabe MR#: [id number] 478 : 1990 Acct:[id number] Age/Sex: 33 / M ADM Date: 11/21/23 Loc: [facility] Room: Type: [facility] Attending Dr: Fahad Echavarria MD Copies to: Fahad Echavarria MD Ordering Provider: Fahad Echavarria MD Date of Service: 11/21/23 XR/XR hand RT min 3V*: [id number] - Displaced fracture of distal phalanx of right ... 4 views right hand plain film COMPARISON: 10/31/2023 HISTORY: Follow-up lumbar right distal radius fracture and fracture distal portion of the thumb ACUTE FINDINGS: Stable alignment. Interval healing of fracture of the first distal phalanx. Continued healing of distal radius fracture. DEGENERATIVE CHANGE: Unremarkable SOFT TISSUE FINDINGS: Unremarkable JOINT EFFUSION: None POSTOP CHANGES: None BONY MINERALIZATION: Adequate XR/XR hand RT min 3V* IMPRESSION: Healing fractures. Impression dictated by: Franck Fink M.D.11/21/2023 10:51 AM Dictation Location: RADIO-PC-12 Transcribed By: CORNELIA 11/21/23 1051 Dictated By: Franck Fink DO 11/21/23 1049 Signed By: 11/21/23 1051 Normal [facility] XR wrist RT min 3V*on 2023 XR wrist RT min 3V* [facility] [address] [place] [address] XRay Report Signed Patient: Fahad Bernabe MR#: [id number] 478 : 1990 Acct:[id number] Age/Sex: 33 / M ADM Date: 10/31/23 Loc: [facility] Room: Type: [facility] Attending Dr: Fahad Echavarria MD Copies to: Fahad Echavarria MD Ordering Provider: Fahad Echavarria MD Date of Service: 10/31/23 XR/XR wrist RT min 3V*: *out of cast* CLINICAL DATA: Follow-up right distal radius and distal thumb fractures. RIGHT WRIST - 5 images COMPARISON: 09/21/2023 The cast has been removed. AP, lateral oblique views of the hand as well as ulnar deviation and lateral views of the wrist were obtained. There is redemonstration of a fracture at the distal radial metaphysis where there is sclerosis and dorsal irregularity on the lateral view. This shows no interval change. There is no true lateral view of the thumb and the volar fracture at the base of the distal phalanx is not well demonstrated on the available views. No new fractures or dislocation are seen. There is no prominent soft tissue swelling. XR/XR wrist RT min 3V* IMPRESSION: STABLE DISTAL RADIUS FRACTURE. POOR DEMONSTRATION OF THE FRACTURE AT THE DISTAL THE THUMB DUE TO POSITIONING ON TODAY'S VIEWS. Impression dictated by: Kristal Reyes M.D.10/31/2023 3:30 PM Dictation Location: RADIO-PC-10 Transcribed By: CORNELIA 10/31/23 1530 Dictated By: Kristal Reyes MD 10/31/23 1526 Signed By: 10/31/23 1530 Normal [facility] XR wrist RT 2Von 09-21-2023 XR wrist RT 2V [facility] [address] [place] [address] XRay Report Signed Patient: Fahad Bernabe MR#: [id number] 478 : 1990 Acct:[id number] Age/Sex: 33 / M ADM Date: 09/21/23 Loc: [facility] Room: Type: [facility] Attending Dr: Fahad Echavarria MD Copies [...] Kristal Reyes M.D.09/21/2023 3:45 PM Dictation Location: [place] [address] Transcribed By: [facility] 09/21/23 1545 Dictated By: Kristal Reyes MD 09/21/23 154 Signed By: 09/21/23 1545 Normal [facility] Physician Orderon 07-13-2023 Physician Order [id number] 364#1.00TIFF [facility] Consent for Treatmenton 06-14 Consent for Treatment [id number] 8#1.00TIFF [facility] Consent for Treatment [id number] 1A#1.00TIFF [facility] Physician Orderon 07-04-2023 Physician Order [id number] 6#1.00TIFF Normal [facility] XR Adult Swallowing Function w/ Videoon [...] mGy = 5.70 DAP = 134.69 Normal [facility] Physician Orderon 06-06-2023 Physician Order [id number] DA#1.00TIFF Normal [facility] CBCon 05-27-2023 ABSOLUTE BAS 0.1 10*3/uL Normal 0.0-0.2 [facility] Comment on above: Result Comment: Test ing performed at [place] [address] Performed By: #### A CBC, CHEM7F #### [place] [address] ABSOLUTE EOS 0.1 10*3/uL Normal 0.0-0.7 [facility] Comment on above: Performed By: #### A CBC, CHEM7F #### Testing performed at [address] [address] ABSOLUTE NEUTROPHIL COUNT 4.0 10*3/uL Normal 1.4-6.5 [facility] Comment on above: Performed By: #### A CBC, CHEM7F #### Testing performed at [address] [address] Basophils/100 WBC (Bld) 1.0 % Normal 0.0-2.0 [facility] Comment on above: Performed By: #### A CBC, CHEM7F #### Testing performed at [address] [address] DTYPE AUTO DIFF Normal [facility] Comment on above: Performed By: #### A CBC, CHEM7F #### Testing performed at [address] [address] Eosinophils/100 WBC (Bld) 0.8 % Normal 0.0-11.0 [facility] Comment on above: Performed By: #### A CBC, CHEM7F #### Testing performed at [address] [address] Lymphocytes (Bld) [#/Vol] 2.0 10*3/uL Normal 1.2-3.4 [facility] Comment on above: Performed By: #### A CBC, CHEM7F #### Testing performed at [address] [address] Lymphocytes/100 WBC (Bld) 29.5 % Normal 20.0-55.0 [facility] Comment on above: Performed By: #### A CBC, CHEM7F #### Testing performed at [address] [address] Monocytes (Bld) [#/Vol] 0.5 10*3/uL Normal 0.0-0.7 [facility] Comment on above: Performed By: #### A CBC, CHEM7F #### Testing performed at [address] [address] Monocytes/100 WBC (Bld) 8.2 % Normal 0.0-10.0 [facility] Comment on above: Performed By: #### A CBC, CHEM7F #### Testing performed at [address] [address] Neutrophils/100 WBC (Bld) 60.5 % Normal 37.0-75.0 [facility] Comment on above: Performed By: #### A CBC, CHEM7F #### Testing performed at [address] [address] Erythrocyte distribution width (RBC) [Ratio] 14.6 % High 11.5-14.5 [facility] Comment on above: Performed By: #### A CBC, CHEM7F #### Testing performed at [address] [address] Hematocrit (Bld) [Volume fraction] 40.2 % Low 42.0-52.0 [facility] Comment on above: Performed By: #### A CBC, CHEM7F #### Testing performed at [address] [address] Hemoglobin (Bld) [Mass/Vol] 13.1 g/dL Low 14.0-18.0 [facility] Comment on above: Performed By: #### A CBC, CHEM7F #### Testing performed at [address] [address] MCH (RBC) [Entitic mass] 33.5 pg Normal 26.0-35.0 [facility] Comment on above: Performed By: #### A CBC, CHEM7F #### Testing performed at [address] [address] MCHC (RBC) [Mass/Vol] 32.7 g/dL Normal 27.0-37.0 [facility] Comment on above: Performed By: #### A CBC, CHEM7F #### Testing performed at [address] [address] MCV (RBC) [Entitic vol] 102.5 fL High 80.0-100.0 [facility] Comment on above: Performed By: #### A CBC, CHEM7F #### Testing performed at [address] [address] Platelet mean volume (Bld) [Entitic vol] 7.0 fL Low 7.4-11.0 [facility] Comment on above: Performed By: #### A CBC, CHEM7F #### Testing performed at [address] [address] Platelets (Bld) [#/Vol] 280 10*3/uL Normal 130-400 [facility] Comment on above: Performed By: #### A CBC, CHEM7F #### Testing performed at [place] [id number] RBC (Bld) [#/Vol] 3.92 10*6/uL Low 4.0-6.1 [facility] Comment on above: Performed By: #### A CBC, CHEM7F #### Testing performed at [place] [id number] WBC (Bld) [#/Vol] 6.7 10*3/uL Normal 3.6-11.0 [facility] Comment on above: Performed By: #### A CBC, CHEM7F #### Testing performed at [address] [address] CBC, EDIF, PLATELETon 2023 ABSOLUTE BASOPHIL COUNT 0.1 10*3/uL 0.0 - 0.2 10*3/uL [facility] Comment on above: Testing performed at [place] [id number] Basophils/100 WBC (Bld) 1.0 % 0.0 - 2.0 % [facility] Differential cell count method Nom (Bld) AUTO DIFF % [facility] Eosinophils (Bld) [#/Vol] 0.1 10*3/uL 0.0 - 0.7 10*3/uL [facility] Eosinophils/100 WBC (Bld) 0.8 % 0.0 - 11.0 % [facility] Erythrocyte distribution width (RBC) [Ratio] 14.6 % High 11.5 - 14.5 % [facility] Hematocrit (Bld) [Volume fraction] 40.2 % Low 42.0 - 52.0 % [facility] Hemoglobin (Bld) [Mass/Vol] 13.1 g/dL Low [facility] Interpretation and review of laboratory results Abnormal [facility] Lymphocytes (Bld) [#/Vol] 2.0 10*3/uL 1.2 - 3.4 10*3/uL [facility] Lymphocytes/100 WBC (Bld) 29.5 % 20.0 - 55.0 % [facility] MCH (RBC) [Entitic mass] 33.5 pg 26.0 - 35.0 PG [facility] MCHC (RBC) [Mass/Vol] 32.7 g/dL [facility] MCV (RBC) [Entitic vol] 102.5 fL High A [facility] Monocytes (Bld) [#/Vol] 0.5 10*3/uL 0.0 - 0.7 10*3/uL [facility] Monocytes/100 WBC (Bld) 8.2 % 0.0 - 10.0 % [facility] Neutrophils (Bld) [#/Vol] 4.0 10*3/uL 1.4 - 6.5 10*3/uL [facility] Neutrophils/100 WBC (Bld) 60.5 % 37.0 - 75.0 % [facility] Platelet mean volume (Bld) [Entitic vol] 7.0 fL Low [facility] Platelets (Bld) [#/Vol] 280 10*3/uL 130 - 400 10*3/uL [facility] RBC (Bld) [#/Vol] 3.92 10*6/uL Low 4.0 - 6.1 10*6/uL [facility] WBC (Bld) [#/Vol] 6.7 10*3/uL 3.6 - 11.0 10*3/uL [facility] CHEM 7 FASTINGon 05-27-2023 Chloride [Moles/Vol] 106 mmol/L Normal 98-107 [facility] Comment on above: Result Comment: Chayo garner note: Triglyceride levels of 600mg/dL or higher may positively bias chloride results by approximately 2.1 mmol Performed By: #### A CBC, CHEM7F #### Testing performed at [address] [address] CO2 [Moles/Vol] 28 mmol/L Normal 22-30 [facility] Comment on above: Performed By: #### A CBC, CHEM7F #### [place] [address] Creatinine [Mass/Vol] 1.30 mg/dL High 0.7-1.2 [facility] Comment on above: Performed By: #### A CBC, CHEM7F #### [place] [address] EST. GFR, 83 ml/min/1.73sq.m [facility] Comment on above: Performed By: #### A CBC, CHEM7F #### [place] [address] EST. GFR,Non 69 ml/min/1.73sq.m [facility] Comment on above: Performed By: #### A CBC, CHEM7F #### [place] [address] GFR Information Average GFR for 30-39 years old = 107. Normal [facility] Comment on above: Result Comment: Program Production Specialist maye Kidney disease, GFR = <60. Kidney failure, GFR = <15. The GFR estimate is not adjusted for extreme body surface area or acute process, nor has it been validated for women or ethnic groups other than and . Testing performed at [place] [address] Performed By: #### A CBC, CHEM7F #### [place] [address] Glucose [Mass/Vol] 110 mg/dL High 70-100 [facility] Comment on above: Result Comment: NORMAL <100 mg/dL PREDIABETES 101-126 mg/dL DIABETES 126 mg/dL or higher Performed By: #### A CBC, CHEM7F #### [place] [address] Potassium [Moles/Vol] 3.8 mmol/L Normal 3.5-5.1 [facility] Comment on above: Performed By: #### A CBC, CHEM7F #### Testing performed at [facility] [address] [place] [address] Sodium [Moles/Vol] 144 mmol/L Normal 137-145 [facility] Comment on above: Performed By: #### A CBC, CHEM7F #### Testing performed at [facility] [address] [place] [address] Urea nitrogen [Mass/Vol] 19 mg/dL Normal 7-20 [facility] Comment on above: Performed By: #### A CBC, CHEM7F #### Testing performed at [facility] [address] [place] [address] CHEM 7 (LYTES,BUN,CREA,GLUC) on 05-27-2023 Chloride [Moles/Vol] 106 mmol/L [facility] Comment on above: Please note: Triglyc eride levels of 600mg/dL or higher may positively bias chloride results by approximately 2.1 mmol CO2 [Moles/Vol] 28 mmol/L [facility] Creatinine [Mass/Vol] 1.30 mg/dL High [facility] [employer] [facility] GFR COMMENT Average GFR for 30-39 years old = 107. [facility] Comment on above: Chronic Kidney disea se, GFR = <60. Kidney failure, GFR = <15. The GFR estimate is not adjusted for extreme body surface area or acute process, nor has it been validated for women or ethnic groups other than and . Testing performed at [place], [place] [address] GFR/1.73 sq M.predicted among blacks MDRD (S/P/Bld) [Vol rate/Area] 83 mL/min/{1.73_m2} ml/min/1.73sq. m [facility] GFR/1.73 sq M.predicted among non-blacks MDRD (S/P/Bld) [Vol rate/Area] 69 mL/min/{1.73_m2} ml/min/1.73sq. m [facility] Glucose post fast [Mass/Vol] 110 mg/dL [facility] Comment on above: NORMAL <100 mg/dL PREDIABETES 101-126 mg/dL DIABETES 126 mg/dL or higher Interpretation and review of laboratory results Abnormal [facility] Potassium [Moles/Vol] 3.8 mmol/L [facility] Sodium [Moles/Vol] 144 mmol/L [facility] Urea nitrogen [Mass/Vol] 19 mg/dL [facility] Portable XR Chest Viewson IMPRESSION: Unremarkable chest. [...] contours appear unremarkable. IMPRESSION IMPRESSION: Unremarkable chest. [facility] Radiology Study observation (narrative) [facility] Portable XR Chest ViewsOrder ed By: Terrell Márquez on 05-27-2023 [facility] Work Phone: XR CHEST 1 VIEW PORTABLEon [...] chest. Normal [facility] Lithiumon 05-12-2023 [place] [Moles/Vol] 0.4 mmol/L Low 0.5-1.2 [facility] Comment on above: Result Comment: A co ncentration of 0.5-0.8 mmol/L is advised for long-term use; concentrations of up to 1.2 mmol/L may be necessary during acute treatment. Detection Limit = 0.1 <0.1 indicates None Detected Performed at: [facility] [address] [place], [place] [id number] PhD Shaka Oleary Performed By: #### 2 367272, 2516648, 98109004, 5318616, 6804545, 2534627, 9828351, 9841582, 6168061, 9531381 ####[facility] [address] [place] [address] T3 Freeon 05-12-2023 Free T3 [Mass/Vol] 2.5 pg/mL Invalid Interpretation Code 2.0-4.4 [facility] Comment on above: Result Comment: Perf ormed at: [facility] [address] [place], [place] [id number] PhD Shaka Oleary Performed By: #### 2 032778, 4875543, 83595054, 2413143, 0949624, 9472863, 1351505, 1295682, 8646344, 9672883 ####[facility] [address] [place] [address] CBC w/IndicesOrdered By: [employer] TEM SYSTEM on 05-10-2023 Erythrocyte distribution width (RBC) [Ratio] 14.9 % High 10.9-14.2 [facility] Comment on above: Performed By: #### 2 203676, 1341363, 07271295, 6703612, 1292571, 6685993, 7295782, 5395219, 9450331, 4811615 #### [facility] [address] [place] [address] Hematocrit (Bld) [Volume fraction] 42.4 % Normal 37.7-49.0 [facility] Comment on above: Performed By: #### 2 820841, 4934377, 65683013, 2334740, 1073394, 0818541, 0403463, 3178856, 8996263, 6858332 #### [facility] [address] [place] [address] Hemoglobin (Bld) [Mass/Vol] 13.5 g/dL Normal 13.5-17.5 [facility] Comment on above: Performed By: #### 2 941476, 4086568, 77070419, 1182783, 3832358, 9564959, 7100756, 1940652, 6589091, 5831547 #### [facility] [address] [place] [address] MCH (RBC) [Entitic mass] 33.4 pg Normal 27.0-34.0 [facility] Comment on above: Performed By: #### 2 018719, 5122429, 27528459, 0368262, 5637913, 0730569, 5257142, 1979189, 9041811, 6055030 #### [facility] [address] [place] [address] MCHC (RBC) [Mass/Vol] 31.9 g/dL Normal 31.4-36.0 [facility] Comment on above: Performed By: #### 2 532980, 4816451, 52840781, 8928591, 5035676, 6210517, 8906646, 8292735, 2359154, 0406935 #### [facility] [address] [place] [address] MCV (RBC) [Entitic vol] 104.9 fL High 80.0-100.0 [facility] Comment on above: Performed By: #### 2 079999, 7361970, 04446543, 0894475, 8025740, 6084004, 5081765, 2909823, 6322728, 5429807 #### [facility] [address] [place] [address] Platelet mean volume (Bld) [Entitic vol] 7.7 fL Normal 6.4-10.8 [facility] Comment on above: Performed By: #### 2 039865, 6420317, 06789748, 9420608, 8352246, 8193641, 8615132, 1804794, 5229272, 4099740 #### [facility] [address] [place] [address] Platelets (Bld) [#/Vol] 359.0 E9/L Normal 150.0-500.0 [facility] Comment on above: Performed By: #### 2 646578, 3023644, 93369080, 4605763, 3780005, 9211986, 1671398, 2855332, 9763683, 0211176 #### [facility] [address] [place] [address] RBC (Bld) [#/Vol] 4.0 E12/L Low 4.3-5.9 [facility] Comment on above: Performed By: #### 2 096407, 8171469, 87829556, 9024475, 6639585, 6424194, 9118988, 8572291, 4895514, 7614703 #### [facility] [address] [place] [address] WBC corrected for nucl RBC Auto (Bld) [#/Vol] 4.6 E9/L Normal 4.0-11.0 [facility] Comment on above: Performed By: #### 2 130190, 3402027, 48672859, 5944216, 7007691, 8292126, 3659178, 7520675, 7520431, 5433559 #### [facility] [address] [place] [address] CBC w/Indiceson 05-10-2023 RBC size Nom (Bld) NORMAL Invalid Interpretation Code [facility] Comment on above: Performed By: #### 2 566836, 1833236, 94660791, 2630655, 9848454, 2855097, 5211221, 9817373, 6930473, 3805708 #### [facility] [address] [place] [address] CHEMISTRYOrdered By: SYSTEM SYSTEM on 05-10-2023 Albumin/Globulin [...] Comment on above: Performed By: #### 2 510932, 8173554, 38277849, 3742096, 2029979, 5445743, 4212086, 0214628, 5557478, 3266383 #### [facility] [address] [place] [address] Anion gap [Moles/Vol] 10 mmol/L Normal 6-16 Rem [facility] Comment on above: Performed By: #### 2 574361, 0983755, 87645840, 1190609, 3470037, 8515799, 7487185, 6216235, 2418352, 5788407 #### [facility] [address] [place] [address] Bilirubin [Mass/Vol] 0.2 mg/dL Normal 0.0-1.1 [facility] Comment on above: Performed By: #### 2 555721, 9830491, 18596212, 3762590, 0566368, 9862147, 8236253, 1896703, 7497036, 9422282 #### [facility] [address] [place] [address] Calcium [Mass/Vol] 9.6 mg/dL Normal 8.9-11.1 [facility] Comment on above: Performed By: #### 2 021551, 9361411, 98464216, 9393454, 0435435, 3253713, 2489934, 4602474, 4804777, 8205597 #### [facility] [address] [place] [address] Chloride [Moles/Vol] 108 mmol/L Normal 101-111 [facility] Comment on above: Performed By: #### 2 104465, 2036577, 32622449, 5362345, 1534617, 2869629, 8627886, 3233618, 6464908, 0603678 #### [facility] [address] [place] [address] CO2 [Moles/Vol] 30 mmol/L Normal 21-31 [facility] Comment on above: Performed By: #### 2 429331, 1605801, 99384690, 4009649, 6082322, 3268868, 0694481, 0589050, 2560363, 6745590 #### [facility] [address] [place] [address] Creatinine [Mass/Vol] 1.2 mg/dL Normal 0.5-1.3 Rem isol Chem Comment on above: Performed By: #### 2 708595, 4259566, 97130228, 0205965, 6970615, 4738960, 9191099, 6357653, 4253006, 1048390 #### [facility] [address] [place] [address] Globulin (S) [Mass/Vol] 3.9 g/dL Normal 1.4-4.0 R emisol Chem Comment on above: Performed By: #### 2 028621, 6471420, 03240961, 8716969, 3489708, 3711932, 4848025, 0747501, 8896639, 0559476 #### [facility] [address] [place] [address] Glucose [Mass/Vol] 84 mg/dL Normal 55-199 [facility] Comment on above: Performed By: #### 2 587701, 7351776, 94530669, 3582666, 6152601, 9799066, 3752168, 0671885, 6805071, 6095559 #### [facility] [address] [place] [address] Potassium [Moles/Vol] 4.3 mmol/L Normal 3.5-5.3 Rem isol Chem Comment on above: Performed By: #### 2 501844, 5903300, 95984455, 3815690, 0757742, 6806970, 7475802, 7148565, 9405767, 4337783 #### [facility] [address] [place] [address] Protein [Mass/Vol] 7.6 g/dL Normal 6.0-7.8 [facility] Comment on above: Performed By: #### 2 759929, 0225209, 52472564, 4203282, 7164012, 2953986, 5505672, 0967306, 1505681, 5270413 #### [facility] [address] [place] [address] Sodium [Moles/Vol] 144 mmol/L Normal 135-145 [facility] Comment on above: Performed By: #### 2 336926, 8760714, 31992498, 0917694, 8128061, 0185418, 3322392, 5078184, 8845060, 1135733 #### [facility] [address] [place] [address] Urea nitrogen [Mass/Vol] 18 mg/dL Normal 5-21 [facility] Comment on above: Performed By: #### 2 718570, 6650796, 68235142, 1827095, 3577587, 9167968, 0783605, 2002663, 7471201, 8862964 #### [facility] [address] [place] [address] CMPon 05-10-2023 Albumin/Globulin (S) [Mass conc ratio] 0.9 Low 1.1-2.2 [facility] Comment on above: Performed By: #### 2 582054, 0768378, 98809247, 0425573, 6307364, 9347255, 0624644, 8099972, 5061528, 4893518 #### [facility] [address] [place] [address] ALP [Catalytic activity/Vol] 72 Int._Unit/L Normal 21-98 [facility] Comment on above: Performed By: #### 2 414267, 0798649, 58808450, 7712482, 2841528, 2818693, 0242721, 6238630, 9101167, 9525893 #### [facility] [address] [place] [address] ALT No additional P-5'-P [Catalytic activity/Vol] 9 Int._Unit/L Normal 6-46 [facility] Comment on above: Performed By: #### 2 210238, 4997394, 53231135, 3991193, 0315638, 1027841, 9742591, 2367668, 6845204, 6594557 #### [facility] [address] [place] [address] AST [Catalytic activity/Vol] 17 Int._Unit/L Normal 5-43 [facility] Comment on above: Performed By: #### 2 074956, 8722805, 01159948, 3258753, 9571161, 7843196, 2319309, 6202406, 7746579, 0027319 #### [facility] [address] [place] [address] Urea nitrogen/Creatinine [Mass ratio] 15 No Units Normal 10-20 [facility] Comment on above: Performed By: #### 2 830858, 7862910, 79266312, 3433043, 2961663, 4262016, 6774156, 0083385, 5817005, 6393924 #### [facility] [address] [place] [address] CarbamazepineOrdered By: SYS TEM SYSTEM on 05-10-2023 Carbamaz Lvl 7.3 microgram/mL Normal 4.0-12.0 [facility] Comment on above: Performed By: #### 2 624565, 0117996, 50705704, 4584829, 5328012, 5481541, 1084547, 0276513, 4780435, 2056917 #### [facility] [address] [place] [address] Free P0Ljswpih By: SYSTEM SY STEM on 05-10-2023 Free T4 [Mass/Vol] 0.61 ng/dL Normal 0.58-1.64 [facility] Comment on above: Performed By: #### 2 858544, 9051747, 99022549, 3050412, 8070620, 0773086, 1094869, 2826511, 0218349, 5567894 #### [facility] [address] [place] [address] HEMATOLOGYOrdered By: SYSTEM SYSTEM on 05-10-2023 RBC size Nom (Bld) NORMAL *NA* (05/10/23 7:00 AM) Invalid Interpretation Code [facility] Ironon 05-10-2023 Iron [Mass/Vol] 70 microgram/dL Normal 35-153 [facility] Comment on above: Performed By: #### 2 321362, 6096313, 14888115, 0144600, 5171771, 4959865, 6251880, 5556736, 2254779, 3419882 #### [facility] [address] [place] [address] Physician Orderon 05-10-2023 Physician Order [id number] 31#1.00TIFF Normal [facility] TSHOrdered By: SYSTEM SYSTEM on 05-10-2023 TSH Qn 3.75 m[IU]/L Normal 0.34-5.60 [facility] Comment on above: Performed By: #### 2 925183, 0235604, 58415372, 2848315, 5480147, 1912789, 6685393, 2255457, 4032219, 5039021 #### [facility] [address] [place] [address] Vit [id number] By: SYSTEM [employer] on 05-10-2023 Cobalamin (Vitamin B12) [Mass/Vol] 479 pg/mL Normal 50-1500 [facility] Comment on above: Performed By: #### 2 701097, 2089479, 72563089, 9820339, 0745472, 4623957, 4042062, 7646873, 3961258, 2676955 ####[facility] [address] [place] [address] eGFROrdered By: SYSTEM PharmlyE [email or web address] on 05-10-2023 eGFR 83 mL/min/1.73 m2 Normal >=59 [facility] Comment on above: Order Comment: Order added by Discern Expert. Performed By: #### 2 429132, 4209842, 83629508, 6739341, 4952754, 6149486, 8954298, 8254029, 2211711, 0857677 #### [facility] [address] [place] [address] CARBAMAZEPINEon 05-18-2022 Carbamezapine 6.9 ug/mL Normal 4.0-12.0 [facility] Comment on above: Result Comment: In c onjunction with other antiepileptic drugs Therapeutic 4.0 - 8.0 Toxicity 9.0 - 12.0 . Carbamazepine alone Therapeutic 8.0 - 12.0 . Detection Limit = 2.0 <2.0 indicates None Detected Performed By: #### C ARBLC #### [facility] [address] [place] [address] Dr. Chase Pedro LITHIUMon 05-18-2022 [place] (Eskalith(R)), Serum 0.7 mmol/L Normal 0.5-1.2 [facility] Comment on above: Result Comment: A co ncentration of 0.5-0.8 mmol/L is advised for long-term use; concentrations of up to 1.2 mmol/L may be necessary during acute treatment. Detection Limit = 0.1 <0.1 indicates None Detected Performed By: #### L ITHIUM #### [facility] [address] [place] [address] Dr. Chase Pedro CBC AUTO DIFFon 05-17-2022 BASO # 0.1 103/ul Normal 0.0-0.1 [facility] Comment on above: Performed By: #### C BC #### [facility] [address] [place] [address] Dr. Chase Pedro Basophils/100 WBC (Bld) 1.2 % Normal 0.2-2.0 [facility] Comment on above: Performed By: #### C BC #### [facility] [address] [place] [address] Dr. Chase Pedro EO # 0.0 103/ul Normal 0.0-0.7 [facility] Comment on above: Performed By: #### C BC #### [facility] [address] [place] [address] Dr. Chase Pedro Eosinophils/100 WBC (Bld) 0.2 % Critically low 0.9-7.0 [facility] Comment on above: Performed By: #### C BC #### [facility] [address] [place] [address] Dr. Chase Pedro Erythrocyte distribution width (RBC) [Ratio] 12.8 % Normal 11.0-15.0 [facility] Comment on above: Performed By: #### C BC #### [facility] [address] [place] [address] Dr. Chase Pedro Hematocrit (Bld) [Volume fraction] 42.5 % Normal 42.0-54.0 [facility] Comment on above: Performed By: #### C BC #### [facility] [address] [place] [address] Dr. Chase Pedro Hemoglobin (Bld) [Mass/Vol] 13.8 g/dL Critically low 14.0-18.0 [facility] Comment on above: Performed By: #### C BC #### [facility] [address] [place] [address] Dr. Chase Pedro IG # 0.02 10e3/ul Normal 0.00-0.03 [facility] Comment on above: Performed By: #### C BC #### [facility] [address] [place] [address] Dr. Chase Pedro IG % 0.4 % Normal 0.0-0.5 [facility] Comment on above: Performed By: #### C BC #### [facility] [address] [place] [address] Dr. Chase Pedro LYMPH # 2.3 103/ul Normal 1.2-3.8 [facility] Comment on above: Performed By: #### C BC #### [facility] [address] [place] [address] Dr. Chase Pedro Lymphocytes/100 WBC (Bld) 45.8 % Normal 20.5-60.0 [facility] Comment on above: Performed By: #### C BC #### [facility] [address] [place] [address] Dr. Chase Pedro MANUAL DIFF REQ NO Normal [facility] Comment on above: Performed By: #### C BC #### [facility] [address] [place] [address] Dr. Chase Pedro MCH (RBC) [Entitic mass] 33.8 pg Normal 25.9-34.0 [facility] Comment on above: Performed By: #### C BC #### [facility] [address] [place] [address] Dr. Chase Pedro MCHC (RBC) [Mass/Vol] 32.5 g/dL Normal 29.9-35.2 [facility] Comment on above: Performed By: #### C BC #### [facility] [address] [place] [address] Dr. Chase Pedro MCV (RBC) [Entitic vol] 104.2 fL Critically high 80.0-94 .0 [facility] Comment on above: Performed By: #### C BC #### [facility] [address] [place] [address] Dr. Chase Pedro MONO # 0.3 103/ul Normal 0.3-0.8 [facility] Comment on above: Performed By: #### C BC #### [facility] [address] [place] [address] Dr. Chase Pedro Monocytes/100 WBC (Bld) 5.7 % Normal 1.7-12.0 [facility] Comment on above: Performed By: #### C BC #### [facility] [address] [place] [address] Dr. Chase Pedro NEUT # 2.3 103/ul Normal 1.4-6.5 [facility] Comment on above: Performed By: #### C BC #### [facility] [address] [place] [address] Dr. Chase Pedro Neutrophils/100 WBC (Bld) 46.7 % Normal 43.0-75.0 [facility] Comment on above: Performed By: #### C BC #### [facility] [address] [place] [address] Dr. Chase Pedro Platelet mean volume (Bld) [Entitic vol] 9.2 fL Critically low 9.5-13.5 [facility] Comment on above: Performed By: #### C BC #### [facility] [address] [place] [address] Dr. Chase Pedro PLT 288 103/ul Normal 150-450 [facility] Comment on above: Performed By: #### C BC #### [facility] [address] [place] [address] Dr. Chase Pedro RBC 4.08 106/ul Critically low 4.70-6.10 [facility] Comment on above: Performed By: #### C BC #### [facility] [address] [place] [address] Dr. Chase Pedro WBC 4.9 103/ul Normal 4.0-11.0 [facility] Comment on above: Performed By: #### C BC #### [facility] [address] [place] [address] Dr. Chase Pedro DEPAKENE/ VALPROIC ACIDon DEPAKENE 56.7 ug/ml Normal 50.0-100.0 [facility] Comment on above: Performed By: #### C MP, TSH, VALP #### [facility] [address] [place] [address] Dr. Chase Pedro PROF 14(COMP METB)on 023 Albumin [Mass/Vol] 3.5 g/dL Normal 3.4-5.0 [facility] Comment on above: Performed By: #### C MP, TSH, VALP #### [facility] [address] [place] [address] Dr. Chase Pedro Albumin/Globulin [Mass ratio] 0.8 {ratio} Normal [facility] Comment on above: Performed By: #### C MP, TSH, VALP #### [facility] [address] [address] [address] Chase Pedro ALP [Catalytic activity/Vol] 110 U/L Normal 46-116 [facility] Comment on above: Performed By: #### C MP, TSH, VALP #### [facility] [address] [address] [address] Chase Pedro ALT [Catalytic activity/Vol] 18 U/L Normal 16-63 [facility] Comment on above: Performed By: #### C MP, TSH, VALP #### [facility] [address] [address] [address] Chase Pedro Anion gap [Moles/Vol] 8.0 mmol/L Normal [facility] Comment on above: Performed By: #### C MP, TSH, VALP #### [facility] [address] [place] [address] Dr. Chase Pedro AST [Catalytic activity/Vol] 12 U/L Critically low 15-37 [facility] Comment on above: Performed By: #### C MP, TSH, VALP #### [facility] [address] [address] [address] Chase Pedro Bilirubin [Mass/Vol] 0.3 mg/dL Normal 0.2-1.0 [facility] Comment on above: Performed By: #### C MP, TSH, VALP #### [facility] [address] [address] [address] Chase Pedro Calcium [Mass/Vol] 9.3 mg/dL Normal 8.5-10.1 [facility] Comment on above: Performed By: #### C MP, TSH, VALP #### [facility] [address] [address] [address] Chase Pedro Chloride [Moles/Vol] 107 mmol/L Normal 98-107 [facility] Comment on above: Performed By: #### C MP, TSH, VALP #### [facility] [address] [address] [address] Chase Pedro CO2 [Moles/Vol] 36.9 mmol/L Critically high 21.0-32.0 [facility] Comment on above: Performed By: #### C MP, TSH, VALP #### [facility] [address] [place] [address] Dr. Chase Pedro Creatinine [Mass/Vol] 1.46 mg/dL Critically high 0.70-1.30 [facility] Comment on above: Performed By: #### C MP, TSH, VALP #### [facility] [address] [place] [address] Dr. Chase Pedro EGFR-AF KYRGYZ >60 Normal >=60 [facility] Comment on above: Performed By: #### C MP, TSH, VALP #### [facility] [address] [place] [address] Dr. Chase Pedro EGFR-NON AF KYRGYZ 57 mL/min/1.73m2 Critically low >=60 [facility] Comment on above: Performed By: #### C MP, TSH, VALP #### [facility] [address] [place] [address] Dr. Chase Pedro Globulin (S) [Mass/Vol] 4.4 g/dL Normal [facility] Comment on above: Performed By: #### C MP, TSH, VALP #### [facility] [address] [place] [address] Dr. Chase Pedro Glucose [Mass/Vol] 94 mg/dL Normal 74-106 [facility] Comment on above: Performed By: #### C MP, TSH, VALP #### [facility] [address] [place] [address] Dr. Chase Pedro Potassium [Moles/Vol] 3.9 mmol/L Normal 3.5-5.1 [facility] Comment on above: Performed By: #### C MP, TSH, VALP #### [facility] [address] [place] [address] Dr. Chase Pedro Protein [Mass/Vol] 7.9 g/dL Normal 6.4-8.2 [facility] Comment on above: Performed By: #### C MP, TSH, VALP #### [facility] [address] [address] [address] Chase Pedro Sodium [Moles/Vol] 148 mmol/L Critically high 136-145 [facility] Comment on above: Performed By: #### C MP, TSH, VALP #### [facility] [address] [address] [address] Chase Pedro Urea nitrogen [Mass/Vol] 17.0 mg/dL Normal 7.0-18.0 [facility] Comment on above: Performed By: #### C MP, TSH, VALP #### [facility] [address] [address] [address] Chase Pedro Urea nitrogen/Creatinine [Mass ratio] 11.6 mg/mg Normal [facility] Comment on above: Performed By: #### C MP, TSH, VALP #### [facility] [address] [place] [address] Dr. Chase Pedro TSHon 05-17-2022 TSH 0.725 uIU/mL Normal 0.358-3.740 [facility] Comment on above: Performed By: #### C MP, TSH, VALP #### [facility] [address] [place] [address] Dr. Chase Pedro Progress Noteson 09-22-2021 Financial Operations Analyst Authentication Interface Message Text ----- Wednesday, September 22, 2021 at 11:33:21 AM ----- ----- Provider: Shell Singh, Resident -- Clinic: [place] ----- COMPOSITE SCIENTOLOGIST Patient is scheduled for Gnosticism on tooth #22-MDF, 23-MDF, 24-MDF, 25-MDF, 26-MDF and 27 surface MDF. Reviewed Medical History. Pt exhibited the following conditions: Mental Disorders Patient is ready for treatment. Topical Benzocaine gel applied at the injection site for 2 minutes. Administered 1 carpules of Lidocaine, 2% with Epinephrine 1:100,000,. Decay/existing taoist removed, cavity prepared. Selectively etched enamel with 37% phosphoric acid, rinsed, and blot dried. OptiBond davidson applied and light-cured. Condensed packable composite shade in light cured increments using Mylar strip and wedge. Finished with finishing burs, checked occlusion, verified proximal contacts and taoist was polished. Rinsed and suctioned intraorally, advised [...] ----- Provider: Emeterio Zapata DDS -- Clinic: [place] ----- Normal [facility] WOUND CULTUREon 07-18-2021 Antimicrobial Susceptibility Comment Normal [facility] Comment on above: Result Comment: S = Susceptible; I = Intermediate; R = Resistant P = Positive; N = Negative MICS are expressed in micrograms per mL Antibiotic RSLT#1 RSLT#2 RSLT#3 RSLT#4 Penicillin S Vancomycin S Performed By: #### C XWND #### [facility] [address] [address] [address] Chase Pedro Bacteria identified Aer cx Nom (Unsp spec) Final report Abnormal [facility] Comment on above: Performed By: #### C XWND #### [facility] [address] [address] [address] Chase Pedro Result 1 Enterococcus faecalis Abnormal [facility] Comment on above: Result Comment: For Enterococcus species, aminoglycosides (except for high-level resistance screening), cephalosporins, clindamycin, and trimethoprim-sulfamethoxazole are not effective clinically. (CLSI, [id number], 2016) Heavy growth Performed By: #### C XWND #### [facility] [address] [address] [address] Chase Pedro Progress Noteson 06-08-2021 Financial Operations Analyst Authentication Interface Message Text RM, Pt is ready for tx PT [...] 6 month recall. Examination completed by /[facility]: mian ----- Signed on Tuesday, June 08, 2021 at 2:17:56 PM ----- ----- Provider: Emeterio Zapata DDS -- Clinic: [place] ----- Normal [facility] XR MODIFIED BARIUM SWALLOWon 05-06-2021 XR [...] PM EDT Finalized by: WELLINGTON BUTT on Jolie May 06, 2021 2:54:29 PM EDT Normal [facility] Comment on above: Order Comment: Injur [...] shotty mediastinal and hilar lymph nodes. The circulation sales representative conglomeration of 2 lymph nodes [...] pneumomediastinum. Cardiomegaly, significant for the patient's age. [employer] Workstation ID: [id number] Dictated by: BERNADETTE ARANA on MonMay 05, 2021 2:07:05 PM EDT Transcribed by: NIKI QUESADA on MonMay 05, 2021 2:30:07 PM EDT Finalized by: BERNADETTE ARANA on MonMay 05, 2021 2:37:50 PM EDT [facility] Comment on above: Order Comment: Injur [...] on MonMay 04, 2021 8:43:37 PM EDT [facility] Comment on above: Order Comment: Injur [...] SARS-CoV-2/Flu/RSV plus RT-PCR Cepheid assay on the [employer] X[employer] System. This test has not been approved for use in asymptomatic patients and its performance in this patient population has not been evaluated. Negative results do not rule out the presence of SARS-CoV-2/COVID-19 . Fact sheets for this EUA can be found at the following links: For Healthcare Providers: https://www.fda.gov /media/055249/downl oad For Patients: https://www.fda.gov /media/487906/downl oad [facility] Comment on above: Performed By: #### L [id number] #### [facility] [address] [place], [place] [address] Liam Casas M.D. [id number] XR CHEST PA/APon 05-02-2021 XR CHEST PA/AP [...] left lung base. Findings consistent with pneumonia. [facility]/[employer] Workstation ID: [id number] Dictated by: FRANCK JEFFERS on [place] May 02, 2021 1:44:03 PM EDT Transcribed by: CAMI CHAHAL on [place] May 02, 2021 1:47:37 PM EDT Finalized by: FRANCK JEFFERS on [place] May 02, 2021 2:44:35 PM EDT [facility] Comment on above: Order Comment: Fully [...] refer to the speech pathologist's detailed report. [employer] Workstation ID: [id number] [facility] EXAMINATION: XR MODIFIED BARIUM SWALLOW HISTORY: [...] no radiographic evidence of tracheal aspiration/penetrat ion. [facility] Interface, Rad In [employer] - 07/08/2020 8:42 PM EDT EXAMINATION: [...] refer to the speech pathologist's detailed report. [employer] Workstation ID: [id number] [facility] XR MODIFIED BARIUM SWALLOWon 07-08-2020 XR [...] refer to the speech pathologist's detailed report. [employer] Workstation ID: [id number] Dictated by: BERNADETTE ARANA on MonJuly 08, 2020 7:29:57 PM EDT Transcribed by: CAMI CHAHAL on MonJuly 08, 2020 7:30:41 PM EDT Finalized by: BERNADETTE ARANA on MonJuly 08, 2020 8:40:23 PM EDT [facility] Comment on above: Order Comment: ROULA Gutierrez ORDER Injury/Trauma or Illness?:Illness/Other How long have you had these symptoms (acute/chronic)?:Acute Reason for exam?: Dyspepsia Type of Exam?:Ongoing Additional signs and symptoms?: Dyspepsia Fluoro time in minutes:.4 40 seconds fluoro Fluoro dose in mGy?:22.92 Basic Metabolic Panelon 02-13 Anion gap [Moles/Vol] 7 mmol/L Low 10 - 20 mmol/L [facility] Calcium [Mass/Vol] 9.2 mg/dL 8.4 - 10. 2 mg/dL [facility] Chloride [Moles/Vol] 98 mmol/L 98 - 10 8 mmol/L [facility] Creatinine [Mass/Vol] 1.56 mg/dL High 0.5 - 1.3 mg/dL [facility] GFR/1.73 sq M predicted among non-blacks MDRD (S/P/Bld) [Vol rate/Area] The eGFR should be used for monitoring renal function only and not for medication dosing. [facility] GFR/1.73 sq M.predicted CKD-EPI (S/P/Bld) [Vol rate/Area] 60 >=60 mL/min/1.73 m2 [facility] Glucose [Mass/Vol] 102 mg/dL High 65 - 99 mg/dL [facility] HCO3 [Moles/Vol] 40 mmol/L High 21 - 32 mmol/L [facility] Potassium [Moles/Vol] 4.0 mmol/L 3.5 - 5.1 mmol/L [facility] Sodium [Moles/Vol] 141 mmol/L 135 - 145 mmol/L [facility] Urea nitrogen [Mass/Vol] 28 mg/dL High 8 - 25 mg/dL [facility] Urea nitrogen/Creatinine [Mass ratio] 17.9 mg/mg [facility] CBC WITH AUTO DIFFERENTIALon 03-01-2019 Basophils (Bld) [#/Vol] 0.05 10*3/uL [facility] Basophils/100 WBC (Bld) 0.7 % [facility] Eosinophils (Bld) [#/Vol] 0.08 10*3/uL [facility] Eosinophils/100 WBC (Bld) 1.2 % [facility] Erythrocyte distribution width (RBC) [Entitic vol] 14.2 % 11.6 - 14.8 % [facility] Hematocrit (Bld) [Volume fraction] 41.3 % 41 - 53 % [facility] Hemoglobin (Bld) [Mass/Vol] 13.2 g/dL Low 13.5 - 17.5 g/dL [facility] Immature granulocytes (Bld) [#/Vol] 0.06 10*3/uL [facility] Immature granulocytes/100 WBC (Bld) 0.90 % [facility] Comment on above: The IG parameter is the percentage of metamyelocytes, myelocytes, and promyelocytes. Interpretation and review of laboratory results Abnormal [facility] Lymphocytes (Bld) [#/Vol] 1.76 10*3/uL [facility] Lymphocytes/100 WBC (Bld) 26.2 % [facility] MCH (RBC) [Entitic mass] 32.3 pg 26 - 34 pg [facility] MCHC (RBC) [Mass/Vol] 32.0 g/dL 31 - 37 g/dL [facility] MCV (RBC) [Entitic vol] 101.0 fL High 80 - 100 fL [facility] Monocytes (Bld) [#/Vol] 0.65 10*3/uL [facility] Monocytes/100 WBC (Bld) 9.7 % [facility] Neutrophils (Bld) [#/Vol] 4.12 10*3/uL [facility] Neutrophils/100 WBC (Bld) 61.3 % [facility] Nucleated RBC (Bld) [#/Vol] 0.00 10*3/uL [facility] Nucleated RBC/100 WBC (Bld) [Ratio] 0.0 % [facility] Platelet mean volume (Bld) [Entitic vol] 9.6 fL 9 - 15.5 fL [facility] Platelets (Bld) [#/Vol] 355 10*3/uL [facility] RBC (Bld) [#/Vol] 4.09 10*6/uL Low [facility] eah WBC (Bld) [#/Vol] 6.72 10*3/uL [facility] eah Magnesium Levelon 03-01-2019 Magnesium [Mass/Vol] 2.5 mg/dL High 1.6 - 2 .4 mg/dL [facility] Otheron 03-01-2019 Interpretation and review of laboratory results Abnormal [facility] Phosphoruson 03-01-2019 Interpretation and review of laboratory results Normal [facility] Phosphate [Mass/Vol] 4.2 mg/dL 2.7 - 4 .5 mg/dL [facility] Basic Metabolic Panelon 02-13 Anion gap [Moles/Vol] 8 mmol/L Low 10 - 20 mmol/L [facility] Calcium [Mass/Vol] 9.2 mg/dL 8.4 - 10. 2 mg/dL [facility] Chloride [Moles/Vol] 99 mmol/L 98 - 10 8 mmol/L [facility] Creatinine [Mass/Vol] 1.54 mg/dL High 0.5 - 1.3 mg/dL [facility] GFR/1.73 sq M predicted among non-blacks MDRD (S/P/Bld) [Vol rate/Area] The eGFR should be used for monitoring renal function only and not for medication dosing. [facility] GFR/1.73 sq M.predicted CKD-EPI (S/P/Bld) [Vol rate/Area] 61 >=60 mL/min/1.73 m2 [facility] Glucose [Mass/Vol] 95 mg/dL 65 - 99 mg/dL [facility] HCO3 [Moles/Vol] 38 mmol/L High 21 - 32 mmol/L [facility] Potassium [Moles/Vol] 4.1 mmol/L 3.5 - 5.1 mmol/L [facility] Sodium [Moles/Vol] 141 mmol/L 135 - 145 mmol/L [facility] Urea nitrogen [Mass/Vol] 27 mg/dL High 8 - 25 mg/dL [facility] Urea nitrogen/Creatinine [Mass ratio] 17.5 mg/mg [facility] CBC WITH AUTO DIFFERENTIALon 02-28-2019 Basophils (Bld) [#/Vol] 0.06 10*3/uL [facility] Basophils/100 WBC (Bld) 1.0 % [facility] Eosinophils (Bld) [#/Vol] 0.07 10*3/uL [facility] Eosinophils/100 WBC (Bld) 1.2 % [facility] Erythrocyte distribution width (RBC) [Entitic vol] 14.5 % 11.6 - 14.8 % [facility] Hematocrit (Bld) [Volume fraction] 41.4 % 41 - 53 % [facility] Hemoglobin (Bld) [Mass/Vol] 13.1 g/dL Low 13.5 - 17.5 g/dL [facility] Immature granulocytes (Bld) [#/Vol] 0.07 10*3/uL [facility] Immature granulocytes/100 WBC (Bld) 1.20 % [facility] Comment on above: The IG parameter is the percentage of metamyelocytes, myelocytes, and promyelocytes. Lymphocytes (Bld) [#/Vol] 2.12 10*3/uL [facility] Lymphocytes/100 WBC (Bld) 35.6 % [facility] MCH (RBC) [Entitic mass] 32.4 pg 26 - 34 pg [facility] MCHC (RBC) [Mass/Vol] 31.6 g/dL 31 - 37 g/dL [facility] MCV (RBC) [Entitic vol] 102.5 fL High 80 - 100 fL [facility] Monocytes (Bld) [#/Vol] 0.40 10*3/uL [facility] Monocytes/100 WBC (Bld) 6.7 % [facility] Neutrophils (Bld) [#/Vol] 3.23 10*3/uL [facility] Neutrophils/100 WBC (Bld) 54.3 % [facility] Nucleated RBC (Bld) [#/Vol] 0.00 10*3/uL [facility] Nucleated RBC/100 WBC (Bld) [Ratio] 0.0 % [facility] Platelet mean volume (Bld) [Entitic vol] 9.6 fL 9 - 15.5 fL [facility] Platelets (Bld) [#/Vol] 383 10*3/uL [facility] RBC (Bld) [#/Vol] 4.04 10*6/uL Low [facility] WBC (Bld) [#/Vol] 6.20 10*3/uL [facility] Magnesium Levelon 02-28-2019 Magnesium [Mass/Vol] 2.6 mg/dL High 1.6 - 2 .4 mg/dL [facility] Otheron 02-28-2019 Interpretation and review of laboratory results Abnormal [facility] Phosphoruson 02-28-2019 Phosphate [Mass/Vol] 4.7 mg/dL High 2.7 - 4 .5 mg/dL [facility] Basic Metabolic Panelon 02-13 Anion gap [Moles/Vol] 7 mmol/L Low 10 - 20 mmol/L [facility] Calcium [Mass/Vol] 9.2 mg/dL 8.4 - 10. 2 mg/dL [facility] Chloride [Moles/Vol] 101 mmol/L 98 - 10 8 mmol/L [facility] Creatinine [Mass/Vol] 1.54 mg/dL High 0.5 - 1.3 mg/dL [facility] GFR/1.73 sq M predicted among non-blacks MDRD (S/P/Bld) [Vol rate/Area] The eGFR should be used for monitoring renal function only and not for medication dosing. [facility] GFR/1.73 sq M.predicted CKD-EPI (S/P/Bld) [Vol rate/Area] 61 >=60 mL/min/1.73 m2 [facility] Glucose [Mass/Vol] 104 mg/dL High 65 - 99 mg/dL [facility] HCO3 [Moles/Vol] 40 mmol/L High 21 - 32 mmol/L [facility] Interpretation and review of laboratory results Abnormal [facility] Potassium [Moles/Vol] 4.0 mmol/L 3.5 - 5.1 mmol/L [facility] Sodium [Moles/Vol] 144 mmol/L 135 - 145 mmol/L [facility] Urea nitrogen [Mass/Vol] 24 mg/dL 8 - 25 mg/dL [facility] Urea nitrogen/Creatinine [Mass ratio] 15.6 mg/mg [facility] NT Pro BNPon 02-26-2019 Interpretation and review of laboratory results Normal [facility] Natriuretic peptide.B prohormone N-Terminal [Mass/Vol] 67 pg/mL 0 - 300 pg/mL [facility] Privt Study Cut-offs Rule In: < /= 50 Years >450 pg/mL 51 Years - 75 Years >900 pg/mL 76 Years - 99 Years >1800 pg/mL Rule Out: All patients <300 pg/mL [facility] ECHOCARDIOGRAM 2D COMPLETEon 02-25-2019 Interface, Rad In [facility] - 02/25/2019 1:[address] [address] [place] [address] ----- ECHOCARDIOGRAPHY REPORT - [facility] ----- Name: FAHAD BERNABE Age: 28 years Date: 02/25/2019 Hospital #: [id number] : 1990 Room: [address] [place] [address] Rec #: [id number] Sex: M Tech: Gary Calvillo Ordering Physician: [id number] HOLDEN HINTON Height: 57.00 in Sys BP: 124 MARLENE cc: , Weight: 264.00 Nidia BP: 79 Reading Physician: [id number] Marrero MD/ Rhythm: Electronically Signed by: [id number] Marrero MD BSA: 2.02 m on: 02/25/2019 [...] LA Index (BP) 29.8 ml/m [employer] ASSEMBLER NOTES: Definity (if used): 1ml Final IMPRESSION: Poor quality, apical views borderline nondiagnostic. Definity given [id number] [place] [id number] ---- ECHOCARDIOGRAPHY REPORT - [facility] ---- Name: FAHAD BERNABE Age: 28 years Date: 02/25/2019 Hospital #: [id number] : 1990 Room: [address] [place] [address] #: [id number] Sex: M Tech: Gary Shaw Rajinder Ordering Physician: [id number] HOLDEN HINTON Height: 57.00 in Sys BP: 124 MARLENE cc: , Weight: 264.00 Nidia BP: 79 Reading Physician: [id number] Marrero MD/ Rhythm: Electronically Signed by: Basilia [...] LA Index (BP) 29.8 ml/m [employer] ASSEMBLER NOTES: Definity (if used): 1ml Final [facility] Poor quality, apical views borderline nondiagnostic. Definity given [facility] [place] Levelon 02-25-2019 Interpretation and review of laboratory results Abnormal [facility] [place] [Moles/Vol] 0.5 mmol/L Low 0.6 - 1. 2 mmol/L [facility] POC ARTERIAL BLOOD GAS PANEL -[facility] 02-25-2019 Base excess Calc (Bld) [Moles/Vol] 12.9 mmol/L High [facility] Breath rate setting [facility]ilator synchronized intermittent [facility] CO2 (Bld) [Partial pressure] 71.3 mm[Hg] High [facility] HCO3 (Bld) [Moles/Vol] 41.1 mmol/L High 22 - 26 mmol /L [facility] Hematocrit (BldA) [Volume fraction] 37.2 % Low 41 - 53 % [facility] Hemoglobin (Bld) [Mass/Vol] 12.1 g/dL Low 13.5 - 18 g/dL [facility] Inhaled oxygen concentration 0 % [facility] Inhaled oxygen flow rate 4 L/min [facility] Interpretation and review of laboratory results Abnormal [facility] Oxygen (Bld) [Partial pressure] 94 mm[Hg] [facility] pH (Bld) 7.37 [pH] [facility] SaO2% (BldA) [Mass fraction] 97.2 % 92 - 99 % [facility] Specimen source Nom (Unsp spec) Radial, left [facility] Tidal volume setting Ventilator 0 [facility] Base excess Calc (Bld) [Moles/Vol] 9.5 mmol/L High [facility] Breath rate setting Ventilator synchronized intermittent mandatory [facility] CO2 (Bld) [Partial pressure] 61.8 mm[Hg] High [facility] HCO3 (Bld) [Moles/Vol] 36.7 mmol/L High 22 - 26 mmol /L [facility] Hematocrit (BldA) [Volume fraction] 37.1 % Low 41 - 53 % [facility] Hemoglobin (Bld) [Mass/Vol] 12.1 g/dL Low 13.5 - 18 g/dL [facility] Inhaled oxygen concentration 0 % [facility] Inhaled oxygen flow rate 2 L/min [facility] Interpretation and review of laboratory results Abnormal [facility] Oxygen (Bld) [Partial pressure] 73 mm[Hg] Low [facility] pH (Bld) 7.38 [pH] [facility] SaO2% (BldA) [Mass fraction] 95.2 % 92 - 99 % [facility] Specimen source Nom (Unsp spec) Radial, left [facility] Tidal volume setting Ventilator 0 [facility] XR MODIFIED BARIUM SWALLOWon 02-25-2019 Recommendation is diet per Speech Pathology. Modified barium swallow study as described above. Please see Speech Pathologist report for complete details. [employer] Workstation ID: [id number] [facility] EXAMINATION: XR MODIFIED BARIUM SWALLOW HISTORY: [...] 506. FINDINGS: The oral phase demonstrated slow [id number]-[id number] or transit with posterior fall off into the pharynx with large volumes. The pharyngeal phase demonstrated no significant residue was seen following swallowing. There was some flash penetration seen with the thin liquid when a large volume was ingested. Aspiration was not seen during the examination. [facility] Interface, Rad In Fuji Speechq - [...] 506. FINDINGS: The oral phase demonstrated slow [id number]-zdzbeer or transit with posterior fall off into [...] see Speech Pathologist report for complete details. MWK/isreali Workstation ID: [id number] [facility] CBC WITH AUTO DIFFERENTIALon 02-24-2019 Basophils (Bld) [#/Vol] 0.02 10*3/uL [facility] Basophils/100 WBC (Bld) 0.3 % [facility] Eosinophils (Bld) [#/Vol] 0.04 10*3/uL [facility] Eosinophils/100 WBC (Bld) 0.7 % [facility] Erythrocyte distribution width (RBC) [Entitic vol] 14.7 % 11.6 - 14.8 % [facility] Hematocrit (Bld) [Volume fraction] 38.2 % Low 41 - 53 % [facility] Hemoglobin (Bld) [Mass/Vol] 11.8 g/dL Low 13.5 - 17.5 g/dL [facility] Immature granulocytes (Bld) [#/Vol] 0.05 10*3/uL [facility] Immature granulocytes/100 WBC (Bld) 0.80 % [facility] Comment on above: The IG parameter is the percentage of metamyelocytes, myelocytes, and promyelocytes. Interpretation and review of laboratory results Abnormal [facility] Lymphocytes (Bld) [#/Vol] 1.37 10*3/uL [facility] Lymphocytes/100 WBC (Bld) 23.2 % [facility] MCH (RBC) [Entitic mass] 32.2 pg 26 - 34 pg [facility] MCHC (RBC) [Mass/Vol] 30.9 g/dL Low 31 - 37 g/dL [facility] MCV (RBC) [Entitic vol] 104.1 fL High 80 - 100 fL [facility] Monocytes (Bld) [#/Vol] 0.55 10*3/uL [facility] Monocytes/100 WBC (Bld) 9.3 % [facility] Neutrophils (Bld) [#/Vol] 3.87 10*3/uL [facility] Neutrophils/100 WBC (Bld) 65.7 % [facility] Nucleated RBC (Bld) [#/Vol] 0.00 10*3/uL [facility] Nucleated RBC/100 WBC (Bld) [Ratio] 0.0 % [facility] Platelet mean volume (Bld) [Entitic vol] 9.4 fL 9 - 15.5 fL [facility] Platelets (Bld) [#/Vol] 233 10*3/uL [facility] RBC (Bld) [#/Vol] 3.67 10*6/uL Low [facility] WBC (Bld) [#/Vol] 5.90 10*3/uL [facility] Comprehensive Metabolic Pane rachel 02-24-2019 Albumin [Mass/Vol] 2.8 g/dL Low 3.2 - 5.2 g/dL [facility] ALP [Catalytic activity/Vol] 80 U/L 40 - 140 U/L [facility] ALT [Catalytic activity/Vol] 20 U/L 14 - 65 U/L [facility] Anion gap [Moles/Vol] 7 mmol/L Low 10 - 20 mmol/L [facility] AST [Catalytic activity/Vol] 12 U/L 0 - 45 U/L [facility] Bilirubin [Mass/Vol] 0.2 mg/dL 0 - 1.3 mg/dL [facility] Calcium [Mass/Vol] 8.8 mg/dL 8.4 - 10. 2 mg/dL [facility] Chloride [Moles/Vol] 106 mmol/L 98 - 10 8 mmol/L [facility] Creatinine [Mass/Vol] 1.26 mg/dL 0.5 - 1.3 mg/dL [facility] GFR/1.73 sq M predicted among non-blacks MDRD (S/P/Bld) [Vol rate/Area] The eGFR should be used for monitoring renal function only and not for medication dosing. [facility] GFR/1.73 sq M.predicted CKD-EPI (S/P/Bld) [Vol rate/Area] 78 >=60 mL/min/1.73 m2 [facility] Glucose [Mass/Vol] 99 mg/dL 65 - 99 mg/dL [facility] HCO3 [Moles/Vol] 34 mmol/L High 21 - 32 mmol/L [facility] Interpretation and review of laboratory results Abnormal [facility] Potassium [Moles/Vol] 4.3 mmol/L 3.5 - 5.1 mmol/L [facility] Protein [Mass/Vol] 7.8 g/dL 6 - 8 g/dL [facility] Sodium [Moles/Vol] 143 mmol/L 135 - 145 mmol/L [facility] Urea nitrogen [Mass/Vol] 12 mg/dL 8 - 25 mg/dL [facility] Urea nitrogen/Creatinine [Mass ratio] 9.5 mg/mg Low [facility] Hemoglobin A1con 02-24-2019 Average glucose Estimated from glycated hemoglobin mass conc (Bld) 117 mg/dL High 68 - 114 mg/dL [facility] HbA1c (Bld) [Mass fraction] 5.7 % High 4 - 5.6 % [facility] Interpretation and review of laboratory results Abnormal [facility] Normal: 4.0% - 5.6% Increased risk for diabetes: 5.7% - 6.4% Diabetes: >= 6.5% Pediatrics: No established reference range Estimated average glucose: 68-114 mg/dL [facility] INFLUENZA A,B RAPID MOLECULA Jesus 02-24-2019 FLUAV RNA EDER+probe Ql (Unsp spec) Not Detected Not Detected [facility] FLUBV RNA EDER+probe Ql (Unsp spec) Not Detected Not Detected [facility] Interpretation and review of laboratory results Normal [facility] Test Method: Nucleic Acid Amplification [facility] LEGIONELLA ANTIGEN, URINEon 02-24-2019 L. pneumophila Ag Ql (U) Negative Negative for Legionella antigen [facility] Comment on above: COMMENT: Results may be affected if patient is on diuretics. INTERPRETATION OF RESULTS: Test detects Legionella pneumophilia serogroup 1 antigens in urine. Legionnaires disease cannot be ruled out since other serogroups and species may also cause disease. Magnesiumon 02-24-2019 Magnesium [Mass/Vol] 2.2 mg/dL 1.6 - 2 .4 mg/dL [facility] Otheron 02-24-2019 Interpretation and review of laboratory results Normal [facility] Interpretation and review of laboratory results Normal [facility] Phosphoruson 02-24-2019 Phosphate [Mass/Vol] 4.1 mg/dL 2.7 - 4 .5 mg/dL [facility] S.PNEUMONIAE URINE ANTIGENon 02-24-2019 S. pneumoniae Ag Ql (U) Negative Pres umptive Negative for Pneumococcal pneumoniae [facility] Comment on above: A negative result jimenes ggests no current or recent pneumococcal infection. A negative result does not rule out Streptococcus pneumoniae infection since the antigen present in the sample may be below the detection limit of the test. TSHon 02-24-2019 TSH Qn 2.18 m[IU]/L [facility] Valproic Acid Levelon 2019 Interpretation and review of laboratory results Abnormal [facility] Valproate [Mass/Vol] 47 ug/mL Low [facility] Alcohol, Medicalon 0 Ethanol [Mass/Vol] mg/dL <10.00 mg/dL [facility] Comment on above: Alcohol cutoff: <10. 00 mg/dL = None Detected Interpretation and review of laboratory results Normal [facility] Ammoniaon 02-23-2019 Ammonia (P) [Mass/Vol] 43 ug/dL [facility] Interpretation and review of laboratory results Normal [facility] BMPon 02-23-2019 Anion gap [Moles/Vol] 10 mmol/L 10 - 20 mmol/L [facility] Calcium [Mass/Vol] 8.3 mg/dL Low 8.4 - 10. 2 mg/dL [facility] Chloride [Moles/Vol] 108 mmol/L 98 - 10 8 mmol/L [facility] Creatinine [Mass/Vol] 1.20 mg/dL 0.5 - 1.3 mg/dL [facility] GFR/1.73 sq M predicted among non-blacks MDRD (S/P/Bld) [Vol rate/Area] The eGFR should be used for monitoring renal function only and not for medication dosing. [facility] GFR/1.73 sq M.predicted CKD-EPI (S/P/Bld) [Vol rate/Area] 83 >=60 mL/min/1.73 m2 [facility] Glucose [Mass/Vol] 104 mg/dL High 65 - 99 mg/dL [facility] HCO3 [Moles/Vol] 30 mmol/L 21 - 32 mmol/L [facility] Potassium [Moles/Vol] 4.8 mmol/L 3.5 - 5.1 mmol/L [facility] Sodium [Moles/Vol] 143 mmol/L 135 - 145 mmol/L [facility] Urea nitrogen [Mass/Vol] 15 mg/dL 8 - 25 mg/dL [facility] Urea nitrogen/Creatinine [Mass ratio] 12.5 mg/mg [facility] CBC WITH AUTO DIFFERENTIALon 02-23-2019 Basophils (Bld) [#/Vol] 0.03 10*3/uL [facility] Basophils/100 WBC (Bld) 0.3 % [facility] Eosinophils (Bld) [#/Vol] 0.04 10*3/uL [facility] Eosinophils/100 WBC (Bld) 0.4 % [facility] Erythrocyte distribution width (RBC) [Entitic vol] 14.4 % 11.6 - 14.8 % [facility] Hematocrit (Bld) [Volume fraction] 35.1 % Low 41 - 53 % [facility] Hemoglobin (Bld) [Mass/Vol] 10.9 g/dL Low 13.5 - 17.5 g/dL [facility] Immature granulocytes (Bld) [#/Vol] 0.02 10*3/uL [facility] Immature granulocytes/100 WBC (Bld) 0.20 % [facility] Comment on above: The IG parameter is the percentage of metamyelocytes, myelocytes, and promyelocytes. Interpretation and review of laboratory results Abnormal [facility] Lymphocytes (Bld) [#/Vol] 1.22 10*3/uL [facility] Lymphocytes/100 WBC (Bld) 11.1 % [facility] MCH (RBC) [Entitic mass] 32.3 pg 26 - 34 pg [facility] MCHC (RBC) [Mass/Vol] 31.1 g/dL 31 - 37 g/dL [facility] MCV (RBC) [Entitic vol] 104.2 fL High 80 - 100 fL [facility] Monocytes (Bld) [#/Vol] 0.89 10*3/uL [facility] Monocytes/100 WBC (Bld) 8.1 % [facility] Neutrophils (Bld) [#/Vol] 8.75 10*3/uL High [facility] Neutrophils/100 WBC (Bld) 79.9 % [facility] Platelet mean volume (Bld) [Entitic vol] 9.0 fL 9 - 15.5 fL [facility] Platelets (Bld) [#/Vol] 241 10*3/uL [facility] RBC (Bld) [#/Vol] 3.37 10*6/uL Low [facility] ealth WBC (Bld) [#/Vol] 10.95 10*3/uL [facility] CT HEAD OR BRAIN WITHOUT CON TRASTon 02-23-2019 EXAMINATION: CT HEAD OR BRAIN WITHOUT CONTRAST 02/23/2019 COMPARISON: None. HISTORY: Injury/Trauma or Illness?:Illness/Ot her How long have you had these symptoms (acute/chronic)?:Ac absentee-shawnee Altered mental status Pt having trouble staying [...] cells are clear. No acute osseous abnormality. [facility] Interface, Rad In Fuji Speechq - 02/23/2019 3:59 PM EST EXAMINATION: CT HEAD OR BRAIN WITHOUT CONTRAST 02/23/2019 COMPARISON: None. HISTORY: Injury/Trauma or Illness?:Illness/Ot her How long have you had these symptoms (acute/chronic)?:Ac absentee-[place]nee Altered mental status Pt having trouble staying [...] medication. Correlate clinically. GJT/lab Workstation ID: [id number] [facility] 1. No acute intracranial abnormality identified. 2. Mild cerebral and cerebellar atrophy greater than typically seen for patient's age. This may be on the basis of chronic use of antiseizure medication. Correlate clinically. GJT/lab Workstation ID: [id number] [facility] DRUGS OF ABUSE SCREEN, URINE on 02-23-2019 Amphetamines Ql (U) None Detected None Detected [facility] Comment on above: Urine Amphetamine Cu toff: < 1000 ng/mL = None Detected Barbiturates Screen Ql (U) None Detected None Detected [facility] Comment on above: Urine Barbiturates C utoff: < 200 ng/mL = None Detected Benzodiazepines Ql (U) None Detected None Detec shayy [facility] Comment on above: Urine Benzodiazepine Cutoff: < 200 ng/mL = None Detected Cannabinoids Screen Ql (U) None Detected None Detected [facility] Comment on above: Urine Cannabinoids C utoff: < 50 ng/mL = None Detected Cocaine Ql (U) None Detected None Detected [facility] Comment on above: Urine Cocaine Cutoff : < 300 ng/mL = None Detected Interpretation and review of laboratory results Normal [facility] Methadone Screen Ql (U) None Detected None Dete cted [facility] Comment on above: Urine Methadone Cuto ff: < 300 ng/mL = None Detected Opiates Screen Ql (U) None Detected None Detect ed [facility] Comment on above: Urine Opiates Cutoff : < 300 ng/mL = None Detected Oxycodone Ql (U) None Detected None Detected [facility] Comment on above: Urine Oxycodone Cuto ff: < 100 ng/mL = None Detected Screen results should be used for treatment purposes only. [facility] ECG 12-LEADon 02-23-2019 Atrial Rate 80 BPM [facility] P [place] 34 degrees [facility] P-R Interval 194 ms [facility] Q-T Interval 400 ms [facility] QRS Duration 122 ms [facility] QTC Calculation (Bezet) 461 ms O [facility] R [place] 43 degrees [facility] T [place] 62 degrees [facility] Ventricular Rate 80 BPM [facility] ECG Cart Interpretation see physician note for interpretation. Normal sinus rhythm Right bundle branch block Cannot rule out Inferior infarct , age undetermined Abnormal ECG Confirmed by Agata Johnston ([id number]) on 02/23/2019 3:42:27 PM [facility] Hepatic Function Panel (LFT) on 02-23-2019 Albumin [Mass/Vol] 2.6 g/dL Low 3.2 - 5.2 g/dL [facility] ALP [Catalytic activity/Vol] 73 U/L 40 - 140 U/L [facility] ALT [Catalytic activity/Vol] 21 U/L 14 - 65 U/L [facility] AST [Catalytic activity/Vol] 18 U/L 0 - 45 U/L [facility] Bilirubin [Mass/Vol] 0.1 mg/dL 0 - 1.3 mg/dL [facility] Bilirubin.conjugated [Mass/Vol] mg/dL 0 - 0.4 mg/dL [facility] Protein [Mass/Vol] 7.4 g/dL 6 - 8 g/dL [facility] Lactic Acid, Plasmaon 2019 Interpretation and review of laboratory results Normal [facility] Lactate [Moles/Vol] 0.7 mmol/L 0.6 - 2 mmol[facility]L [facility] 02-[facility]-2019 Lipase [Catalytic activity/Vol] 129 U/L 73 - 393 U/L [facility] NT Pro BNPon 02-23-2019 Interpretation and review of laboratory results Normal [facility] Natriuretic peptide.B prohormone N-Terminal [Mass/Vol] 252 pg/mL 0 - 300 pg/mL [facility] Pride Study Cut-offs Rule In: < /= 50 Years >450 pg/mL 51 Years - 75 Years >900 pg/mL 76 Years - 99 Years >1800 pg/mL Rule Out: All patients <300 pg/mL [facility] Otheron 02-23-2019 Interpretation and review of laboratory results Abnormal [facility] Interpretation and review of laboratory results Normal [facility] POC ARTERIAL BLOOD GAS PANEL -CALLUM Cox 02-23-2019 Base excess Calc (Bld) [Moles/Vol] 5.8 mmol/L High [facility] Breath rate setting Ventilator synchronized intermittent mandatory 0 [facility] h CO2 (Bld) [Partial pressure] 56.6 mm[Hg] High [facility] HCO3 (Bld) [Moles/Vol] 32.5 mmol/L High 22 - 26 mmol /L [facility] Hematocrit (BldA) [Volume fraction] 35.0 % Low 41 - 53 % [facility] Hemoglobin (Bld) [Mass/Vol] 11.4 g/dL Low 13.5 - 18 g/dL [facility] Inhaled oxygen concentration 0 % [facility] Interpretation and review of laboratory results Abnormal [facility] Oxygen (Bld) [Partial pressure] 82 mm[Hg] [facility] pH (Bld) 7.37 [pH] [facility] SaO2% (BldA) [Mass fraction] 96.7 % 92 - 99 % [facility] Tidal volume setting Ventilator 0 [facility] POC Arterial Blood Gaseson 0 02-23-2019 Base Excess, Arterial 5 [facility] CO[facility] (Bld) [Partial pressure] 64.2 mm[Hg] High [facility] HCO3 (Bld) [Moles/Vol] 33.1 mmol/L High 22 - 26 mmol /L [facility] Hematocrit (Bld) [Volume fraction] 34 % Low 41 - 53 % [facility] Hemoglobin (Bld) [Mass/Vol] 11.6 g/dL Low 13.5 - 17.5 g/dL [facility] Interpretation and review of laboratory results Abnormal [facility] Oxygen (Bld) [Partial pressure] 76 mm[Hg] Low [facility] pH (Bld) 7.32 [pH] Low [facility] SaO2% (BldA) [Mass fraction] 93.0 % 92 - 99 % [facility] POC Glucoseon 02-23-2019 Glucose [Mass/Vol] 100 mg/dL Abnormal 65 - 99 mg/dL [facility] Interpretation and review of laboratory results Abnormal [facility] Glucose [Mass/Vol] 100 mg/dL High 65 - 99 mg/dL [facility] Interpretation and review of laboratory results Abnormal [facility] PT/INRon 02-23-2019 INR Coag (PPP) [Relative time] 1.1 {INR} [facility] Interpretation and review of laboratory results Normal [facility] PT Coag (PPP) [Time] 13.8 s [facility] During the induction phase of oral anticoagulation, the INR may not reflect the anticoagulation status of the patient. Therapeutic ranges for INR's are: Most clinical situations: INR 2.0-3.0 Mechanical Prosthetic Valve: INR 2.5-3.5 Critical: INR >5.0 [facility] TSH with Reflex Free T4on TSH Qn 1.01 m[IU]/L [facility] URINALYSISon 02-23-2019 Bacteria Auto Ql (U) Rare Abnormal None Seen /hpf [facility] Bilirubin Ql (U) Negative Negative [facility] Clarity Refractometry automated (U) Clear Clear [facility] Color (U) Yellow Colorless, Yellow [facility] Epithelial cells.squamous Auto (Urine sed) [#/Area] 1 [facility] Glucose Auto test strip (U) [Mass/Vol] Negative Negative mg/dL [facility] Hemoglobin Auto test strip Ql (U) Negative Negative [facility] Interpretation and review of laboratory results Abnormal [facility] Ketones (U) [Mass/Vol] Negative Negative mg/d L [facility] Leukocyte esterase Auto test strip Ql (U) Negative Negative [facility] Nitrite Auto test strip Ql (U) Negative Negative [facility] pH (U) 6.0 [pH] [facility] Protein (U) [Mass/Vol] Negative Negative mg/d L [facility] Specific gravity (U) [Rel density] 1.015 [facility] Urobilinogen (U) [Mass/Vol] <2.0 <2.0 mg/dL [facility] WBC Auto (Urine sed) [#/Area] 1 [facility] Microscopic examination is performed on all urinalysis samples and only positive findings are reported. The test for blood on the chemical analytic portion of urinalysis may also be positive due to hemoglobinuria and myoglobinuria and if red blood cells are present they are quantified by microscopic examination. [facility] Valproic Acid Levelon 2019 Interpretation and review of laboratory results Normal [facility] Valproate [Mass/Vol] 72 ug/mL [facility] XR Chest 1 Viewon 02-23-2019 EXAMINATION: 1 VIEW XR CHEST PA/AP, 02/23/2019 COMPARISON: Chest, 01/06/2018 HISTORY: Injury/Trauma or Illness?:Illness/Ot her How long have you had these symptoms (acute/chronic)?:Ac absentee-shawnee Altered mental status [facility] 1. Mild diffuse interstitial edema and/or mild inflammatory infectious pneumonitis. Correlate clinically. 2. Mild prominent cardiac silhouette slightly accentuated due to patient rotation to the left. 3. No acute osseous abnormality. Badge/OptiNose Workstation ID: [id number] [facility] Interface, Rad In Fuji Speechq - 02/23/2019 3:59 PM EST EXAMINATION: 1 VIEW XR CHEST PA/AP, 02/23/2019 COMPARISON: Chest, 01/06/2018 HISTORY: Injury/Trauma or Illness?:Illness/Ot her How long have you had these symptoms (acute/chronic)?:Ac absentee-shawnee Altered mental status IMPRESSION: 1. Mild diffuse interstitial edema and/or mild inflammatory infectious pneumonitis. Correlate clinically. 2. Mild prominent cardiac silhouette slightly accentuated due to patient rotation to the left. 3. No acute osseous abnormality. Badge/OptiNose Workstation ID: [id number] [facility] CBC, EDIF, PLATELETon 2017 ABSOLUTE BASOPHIL COUNT 0.0 Invalid Interpretation Code X10 [address] Comment on above: Testing performed at [place], [place] [address] Basophils/100 WBC Auto (Bld) 0.1 % Invalid Interpretation Code 0 - 2 % [address] Differential cell count method Nom (Bld) AUTO DIFF Invalid Interpretation Code % [address] Eosinophils Auto #/vol (Bld) 0.00 10*3/uL Invalid Interpretation Code X10 [address] Eosinophils/100 WBC Auto (Bld) 0.0 % Invalid Interpretation Code 0 - 11 % [address] Erythrocyte distribution width Ratio (RBC) 15.3 % High 11.5 - 14.5 % [address] Hematocrit Auto Volume Fraction (Bld) 35.6 % Low 42 - 52 % [address] Hemoglobin mass conc (Bld) 11.7 g/dL Low [address] Lymphocytes Manual cnt #/vol (Bld) 1.50 Invalid Interpretation Code X10 [address] Lymphocytes/100 WBC Auto (Bld) 16.7 % Low 20 - 55 % [address] MCH Auto Entitic mass (RBC) 33.1 pg Invalid Interpretation Code 26 - [address] MCHC Auto mass conc (RBC) 32.8 g/dL Invalid Interpretation Code [address] MCV Auto Entitic volume (RBC) 101.2 fL High [address] Monocytes Manual cnt #/vol (Bld) 0.5 Invalid Interpretation Code X10 [address] Monocytes/100 WBC Auto (Bld) 5.2 % Invalid Interpretation Code 0 - 10 % [address] Neutrophils Auto #/vol (Bld) 7.0 10*3/uL Invalid Interpretation Code [address] Neutrophils/100 WBC Auto (Bld) 78.0 % High 37 - 75 % [address] Platelet mean volume Auto Entitic volume (Bld) 7.6 fL Invalid Interpretation Code [address] Platelets Auto #/vol (Bld) 213 10*3/uL Invalid Interpretation Code [address] RBC Auto #/vol (Bld) 3.52 10*6/uL Low [place] [address] WBC Auto #/vol (Bld) 9.0 10*3/uL Invalid Interpretation Code [address] CHEST WITHOUT CONTRASTon 01-08-2018 EXAM: CT [...] 01-08-2018 Magnesium mass conc 2.4 mg/dL High [address] Comment on above: Testing performed at [place], [place] [address] Otheron 01-08-2018 Interpretation and review of laboratory results Abnormal Invalid Interpretation Code [address] RENAL FUNCTION PANELon 01-08 Albumin mass conc 3.5 G/dl Invalid Interpretation Code 3.5 - 5 G/dl [address] Calcium mass conc 8.8 mg/dL Invalid Interpretation Code [address] Chloride molar conc 113 mmol/L High [address] Comment on above: Please note: Triglyc eride levels of 600mg/dL or higher may positively bias chloride results by approximately 2.1 mmol CO2 molar conc 28 mmol/L Invalid Interpretation Code [address] Creatinine mass conc 1.0 mg/dL Invalid Interpretation Code [address] GFR/1.73 sq M predicted among blacks MDRD vol rate/area (S/P/Bld) mL/min/{1.73_m2} Invalid Interpretation Code ml/min/1.73sq. m [address] GFR/1.73 sq M predicted among non-blacks MDRD vol rate/area (S/P/Bld) Average GFR for 20-29 years old = 116. Invalid Interpretation Code [address] Comment on above: Chronic Kidney disea se, GFR = <60. Kidney failure, GFR = <15. The GFR estimate is not adjusted for extreme body surface area or acute process, nor has it been validated for women or ethnic groups other than and . Testing performed at [place], [place] [address] GFR/1.73 sq M predicted among non-blacks MDRD vol rate/area (S/P/Bld) mL/min/{1.73_m2} Invalid Interpretation Code ml/min/1.73sq. m [address] Glucose fasting mass conc 106 mg/dL [address] Comment on above: NORMAL <100 mg/dL [place] EDIABETES 101-126 mg/dL DIABETES 126 mg/dL or higher Phosphate mass conc 3.0 mg/dL Invalid Interpretation Code [address] Potassium molar conc 4.4 mmol/L Invalid Interpretation Code [address] Sodium molar conc 145 mmol/L Invalid Interpretation Code [address] Urea nitrogen mass conc 11 mg/dL Invalid Interpretation Code [address] CBC, EDIF, PLATELETon 2017 ABSOLUTE BASOPHIL COUNT 0.0 Invalid Interpretation Code X10 [address] Comment on above: Testing performed at [place], [place] [address] Basophils/100 WBC Auto (Bld) 0.1 % Invalid Interpretation Code 0 - 2 % [address] Differential cell count method Nom (Bld) AUTO DIFF Invalid Interpretation Code % [address] Eosinophils Auto #/vol (Bld) 0.00 10*3/uL Invalid Interpretation Code X10 [address] Eosinophils/100 WBC Auto (Bld) 0.0 % Invalid Interpretation Code 0 - 11 % [address] Erythrocyte distribution width Ratio (RBC) 15.4 % High 11.5 - 14.5 % [address] Hematocrit Auto Volume Fraction (Bld) 35.0 % Low 42 - 52 % [address] Hemoglobin mass conc (Bld) 11.4 g/dL Low [address] Lymphocytes Manual cnt #/vol (Bld) 1.20 Invalid Interpretation Code X10 00 [address] Lymphocytes/100 WBC Auto (Bld) 9.7 % Low 20 - 55 % [address] MCH Auto Entitic mass (RBC) 32.9 pg Invalid Interpretation Code 26 - [address] MCHC Auto mass conc (RBC) 32.5 g/dL Invalid Interpretation Code [address] MCV Auto Entitic volume (RBC) 101.3 fL High [address] Monocytes Manual cnt #/vol (Bld) 0.6 Invalid Interpretation Code X10 [address] Monocytes/100 WBC Auto (Bld) 5.1 % Invalid Interpretation Code 0 - 10 % [address] Neutrophils Auto #/vol (Bld) 10.6 10*3/uL High [address] Neutrophils/100 WBC Auto (Bld) 85.1 % High 37 - 75 % [address] Platelet mean volume Auto Entitic volume (Bld) 7.4 fL Invalid Interpretation Code [address] Platelets Auto #/vol (Bld) 216 10*3/uL Invalid Interpretation Code [address] RBC Auto #/vol (Bld) 3.45 10*6/uL Low [address] WBC Auto #/vol (Bld) 12.5 10*3/uL [address] [facility] 12-15 L. pneumophila 1 Ag IA Ql (U) Negative Invalid Interpretation Code NEGATIVE [address] Comment on above: Testing performed at [place] [id number] MAGNESIUMon 01-07-2018 Magnesium mass conc 2.2 mg/dL Invalid Interpretation Code [address] Comment on above: Testing performed at [place] [address] Otheron 01-07-2018 Interpretation and review of laboratory results Abnormal Invalid Interpretation Code [address] RENAL FUNCTION PANELon 01-07 Albumin mass conc 3.3 G/dl Low 3.5 - 5 G/dl [address] Calcium mass conc 8.3 mg/dL Low [address] Chloride molar conc 111 mmol/L High [address] Comment on above: Please note: Triglyc eride levels of 600mg/dL or higher may positively bias chloride results by approximately 2.1 mmol CO2 molar conc 27 mmol/L Invalid Interpretation Code [address] Creatinine mass conc 1.2 mg/dL Invalid Interpretation Code [address] GFR/1.73 sq M predicted among blacks MDRD vol rate/area (S/P/Bld) mL/min/{1.73_m2} Invalid Interpretation Code ml/min/1.73sq. m [address] GFR/1.73 sq M predicted among non-blacks MDRD vol rate/area (S/P/Bld) mL/min/{1.73_m2} Invalid Interpretation Code ml/min/1.73sq. m [address] GFR/1.73 sq M predicted among non-blacks MDRD vol rate/area (S/P/Bld) Average GFR for 20-29 years old = 116. Invalid Interpretation Code [address] Comment on above: Chronic Kidney disea se, GFR = <60. Kidney failure, GFR = <15. The GFR estimate is not adjusted for extreme body surface area or acute process, nor has it been validated for women or ethnic groups other than and . Testing performed at [place], [place] [address] Glucose fasting mass conc 109 mg/dL High [address] Comment on above: NORMAL <100 mg/dL WA EDIABETES 101-126 mg/dL DIABETES 126 mg/dL or higher Phosphate mass conc 2.9 mg/dL Invalid Interpretation Code [address] Potassium molar conc 4.2 mmol/L Invalid Interpretation Code [address] Sodium molar conc 146 mmol/L High [address] Urea nitrogen mass conc 10 mg/dL Invalid Interpretation Code [address] STREP PNEUMONIAE ANTIGEN, UR INEon 01-07-2018 S. pneumoniae Ag Ql (U) Negative Invalid Interpretation Code NEGATIVE [address] Comment on above: Testing performed at [place], [place] [address] B-TYPE NATRIURETIC PEPTIDE ( BRAIN)on 01-06-2018 Natriuretic peptide B mass conc (Bld) 61 pg/mL Invalid Interpretation Code 0 - 100 pg/mL [address] Comment on above: Testing performed at [place], [place] [address] BASIC METABOLIC PANELon 12-15 Anion gap 3 molar conc 6 mmol/L Low [place] [address] Calcium mass conc 8.8 mg/dL Invalid Interpretation Code [address] Chloride molar conc 107 mmol/L Invalid Interpretation Code [address] Comment on above: Please note: Triglyc eride levels of 600mg/dL or higher may positively bias chloride results by approximately 2.1 mmol CO2 molar conc 30 mmol/L Invalid Interpretation Code [address] Creatinine mass conc 1.3 mg/dL High [address] GFR/1.73 sq M predicted among blacks MDRD vol rate/area (S/P/Bld) mL/min/{1.73_m2} Invalid Interpretation Code ml/min/1.73sq. m [address] GFR/1.73 sq M predicted among non-blacks MDRD vol rate/area (S/P/Bld) Average GFR for 20-29 years old = 116. Invalid Interpretation Code [address] Comment on above: Chronic Kidney disea se, GFR = <60. Kidney failure, GFR = <15. The GFR estimate is not adjusted for extreme body surface area or acute process, nor has it been validated for women or ethnic groups other than and . Testing performed at [place], [place] [address] GFR/1.73 sq M predicted among non-blacks MDRD vol rate/area (S/P/Bld) mL/min/{1.73_m2} Invalid Interpretation Code ml/min/1.73sq. m [address] Glucose fasting mass conc 121 mg/dL High [address] Comment on above: NORMAL <100 mg/dL [place] EDIABETES 101-126 mg/dL DIABETES 126 mg/dL or higher Potassium molar conc 4.3 mmol/L Invalid Interpretation Code [address] Sodium molar conc 143 mmol/L Invalid Interpretation Code [address] Urea nitrogen mass conc 13 mg/dL Invalid Interpretation Code [address] C REACTIVE PROTEINon 018 CRP mass conc 200.1 mg/L High 0 - 10 MG/L [address] Comment on above: Testing performed at [place], [place] [address] CBC, EDIF, PLATELETon 2017 ABSOLUTE BASOPHIL COUNT 0.0 Invalid Interpretation Code X10 [address] Comment on above: Testing performed at [place] [id number] Basophils/100 WBC Auto (Bld) 0.3 % Invalid Interpretation Code 0 - 2 % [address] Differential cell count method Nom (Bld) AUTO DIFF Invalid Interpretation Code % [address] Eosinophils Auto #/vol (Bld) 0.00 10*3/uL Invalid Interpretation Code X10 [address] Eosinophils/100 WBC Auto (Bld) 0.0 % Invalid Interpretation Code 0 - 11 % [address] Erythrocyte distribution width Ratio (RBC) 15.3 % High 11.5 - 14.5 % [address] Hematocrit Auto Volume Fraction (Bld) 41.2 % Low 42 - 52 % [address] Hemoglobin mass conc (Bld) 13.5 g/dL Low [address] Lymphocytes Manual cnt #/vol (Bld) 1.00 Invalid Interpretation Code X10 [address] Lymphocytes/100 WBC Auto (Bld) 7.1 % Low 20 - 55 % [address] MCH Auto Entitic mass (RBC) 32.6 pg Invalid Interpretation Code 26 - [address] MCHC Auto mass conc (RBC) 32.7 g/dL Invalid Interpretation Code [address] MCV Auto Entitic volume (RBC) 99.7 fL Invalid Interpretation Code [address] Monocytes Manual cnt #/vol (Bld) 1.2 Invalid Interpretation Code X10 [address] Monocytes/100 WBC Auto (Bld) 8.5 % Invalid Interpretation Code 0 - 10 % [address] Neutrophils Auto #/vol (Bld) 11.5 10*3/uL High [address] Neutrophils/100 WBC Auto (Bld) 84.1 % High 37 - 75 % [address] Platelet mean volume Auto Entitic volume (Bld) 7.2 fL Low [address] Platelets Auto #/vol (Bld) 241 10*3/uL Invalid Interpretation Code [address] RBC Auto #/vol (Bld) 4.13 10*6/uL Invalid Interpretation Code [address] WBC Auto #/vol (Bld) 13.7 10*3/uL High [address] INFLUENZA A AND B, PCRon FLUBV Ag IA Ql (Unsp spec) Negative Invalid Interpretation Code NEGATIVE [address] Comment on above: TESTING PERFORMED BY [facility] Testing performed at [place] [address] INFLUENZA A Negative Invalid Interpretation Code NEGATIVE [address] LACTATE, BLOODon 01-06-2018 Lactate molar conc 1.2 mmol/L Invalid Interpretation Code [address] Comment on above: Testing performed at [place] [address] LITHIUM LEVELon 01-06-2018 Interpretation and review of laboratory results Abnormal Invalid Interpretation Code [address] [place] molar conc 0.40 mmol/L Low [address] Comment on above: Testing performed at [place] [address] Otheron 01-06-2018 Interpretation and review of laboratory results Abnormal Invalid Interpretation Code [address] Interpretation and review of laboratory results Abnormal Invalid Interpretation Code [address] RESPIRATORY CULTUREon 2017 Bacteria identified Cx Nom (Unsp spec) USUAL OROPHARYNGEAL MARICRUZ Invalid Interpretation Code [address] Comment on above: MODERATE GROWTH Test ing performed at [place] [address] Microscopic observation Gram stain Nom (Unsp spec) MODERATE Invalid Interpretation Code [address] Comment on above: WBC'S SEEN FEW SQUAM OUS EPITHELIAL CELLS MODERATE MIXED GRAM POSITIVE MARICRUZ NONE APPEAR PREDOMINANT SPECIMEN IS OF LEAST ACCEPTABLE QUALITY REPORT STATUS 01/08/2018 Invalid Interpretation Code [address] Comment on above: FINAL SPECIMEN DESCRIPTION SPUTUM Invalid Interpretation Code [address] SCREEN: MRSA ONLY, NARES (IS OLATION SCREEN)on 01-06-2018 MRSA isol Org specific cx Ql (Nose) Negative Invalid Interpretation Code [address] STAPHYOCOCCUS AUREUS BY PCR Negative Invalid Interpretation Code [address] Comment on above: TESTING PERFORMED BY PCR Testing performed at [place] [address] SEDIMENTATION RATE, AUTOMATE Don 01-06-2018 ESR Velocity (Bld) 31 mm/h High [address] Comment on above: Testing performed at [place] [address] TROPONINon 01-06-2018 Troponin I.cardiac mass conc ng/mL Invalid Interpretation Code 0 - 0.08 ng/mL [address] Comment on above: Testing performed at [place] [address] TSHon 01-06-2018 Thyrotropin Qn 0.994 m[IU]/L Invalid Interpretation Code [address] Comment on above: Testing performed at [place] [address] XR CHEST AP PORTABLEon 01-06 EXAM: XR [...] Time Vital Sign Value Performing Clinician Facility 03-21-2024 09:58-0500 Body height 152.4 cm Wyatt Dieudonne DPM Work Phone: [facility] 03-21-2024 09:58-0500 Body mass index (BMI) [Ratio] 29.49 kg/m2 Wyatt Brown DPM Work Phone: [facility] 03-21-2024 09:58-0500 Body weight 68.49 kg Wyatt Brown DPM Work Phone: [facility] 03-21-2024 09:58-0500 Diastolic blood pressure 78 mm[Hg] Wyatt Brown DPM Work Phone: [facility] 03-21-2024 09:58-0500 Heart rate 77 /min Wyatt Dieudonne DPM Work Phone: [facility] 03-21-2024 09:58-0500 Systolic blood pressure 124 mm[Hg] Wyatt Brown DPM Work Phone: [facility] 12-21-2023 09:38-0500 Body height 152.4 cm Wyatt Brown DPM Work Phone: [facility] 12-21-2023 09:38-0500 Body mass index (BMI) [Ratio] 29.49 kg/m2 Wyatt Brown DPM Work Phone: [facility] 12-21-2023 09:38-0500 Body weight 68.49 kg Wyatt Brown DPM Work Phone: [facility] 12-21-2023 09:38-0500 Diastolic blood pressure 79 mm[Hg] Wyatt Brown DPM Work Phone: [facility] 12-21-2023 09:38-0500 Heart rate 86 /min Wyatt Brown DPM Work Phone: [facility] 12-21-2023 09:38-0500 Systolic blood pressure 123 mm[Hg] Wyatt Dieudonne DPM Work Phone: [facility] 12-12-2023 09:59-0400 Body height 157.48 cm DO Iftikhar Kemp Work Phone: [facility] 12-12-2023 09:59-0400 Body mass index (BMI) [Ratio] 29.5 kg/m2 DO Iftikhar Kemp Work Phone: [facility] 12-12-2023 09:59-0400 Body temperature 98.4 [degF] DO Iftikhar Kemp Work Phone: [facility] 12-12-2023 09:59-0400 Body weight 73.25 kg DO Iftikhar Kemp Work Phone: [facility] 12-12-2023 09:59-0400 Diastolic blood pressure 66 mm[Hg] DO Iftikhar Kemp Work Phone: [facility] 12-12-2023 09:59-0400 Heart rate 79 /min DO Iftikhar Kemp Work Phone: [facility] 12-12-2023 09:59-0400 Respiratory rate 20 /min DO Iftikhar Kemp Work Phone: [facility] 12-12-2023 09:59-0400 SaO2% (BldA) [Mass fraction] 97 % DO Iftikhar Kemp Work Phone: [facility] 12-12-2023 09:59-0400 Systolic blood pressure 105 mm[Hg] DO Iftikhar Kemp Work Phone: [facility] 12-06-2023 10:21-0400 Body height 157.48 cm DO Iftikhar Kemp Work Phone: [facility] 12-06-2023 10:21-0400 Body mass index (BMI) [Ratio] 30.2 kg/m2 DO Iftikhar Kemp Work Phone: [facility] 12-06-2023 10:21-0400 Body weight 74.84 kg DO Iftikhar Kemp Work Phone: [facility] 12-06-2023 10:21-0400 Diastolic blood pressure 78 mm[Hg] DO Iftikhar Kemp Work Phone: [facility] 12-06-2023 10:21-0400 Heart rate 88 /min DO Iftikhar Kemp Work Phone: [facility] 12-06-2023 10:21-0400 SaO2% (BldA) [Mass fraction] 98 % DO Iftikhar Kemp Work Phone: [facility] 12-06-2023 10:21-0400 Systolic blood pressure 118 mm[Hg] DO Iftikhar Kemp Work Phone: [facility] 05-27-2023 15:00-0400 Diastolic blood pressure 68 mm[Hg] Liban Otero MD Work Phone: [facility] 05-27-2023 15:00-0400 Heart rate 75 /min Liban Otero MD Work Phone: [facility] 05-27-2023 15:00-0400 SaO2% (BldA) [Mass fraction] 96 % Liban Otero MD Work Phone: [facility] [employer] [facility] 05-27-2023 15:00-0400 Systolic blood pressure 124 mm[Hg] Liban Otero MD Work Phone: [facility] 05-27-2023 14:49-0400 Respiratory rate 18 /min Liban Otero MD Work Phone: [facility] 05-27-2023 14:17-0400 Body height 144.8 cm Liban Otero MD Work Phone: [facility] 05-27-2023 14:16-0400 Body temperature 98.6 [degF] Liban Otero MD Work Phone: [facility] 11-03-2022 10:00-0400 Body height 157.48 cm Martha Yi Other [employer] Other 11-03-2022 10:00-0400 Body mass index (BMI) [Ratio] 29.08 kg/m2 Martha Yi Other [employer] Other 11-03-2022 10:00-0400 Body weight 72.12 kg Martha Yi Other [employer] Other 12-02-2021 12:30-0400 Body height 157.48 cm Thiago Chandler Other [employer] Other 12-02-2021 12:30-0400 Body mass index (BMI) [Ratio] 29.08 kg/m2 Thiago Chandler Other [employer] Other 12-02-2021 12:30-0400 Body temperature 97.1 [degF] Thiago Chandler Other [employer] Other 12-02-2021 12:30-0400 Body weight 72.12 kg Thiago Chandler Other [employer] Other 12-02-2021 12:30-0400 Diastolic blood pressure 78 mm[Hg] Thiago Chandler Other [employer] Other 12-02-2021 12:30-0400 SaO2% (BldA) [Mass fraction] 100 % Thiago Chandler Other [employer] Other 12-02-2021 12:30-0400 Systolic blood pressure 114 mm[Hg] Thiago Chandler Other [employer] Other 11-04-2021 11:00-0400 Body height 157.48 cm Martha Yi Other [employer] Other 11-04-2021 11:00-0400 Body mass index (BMI) [Ratio] 29.28 kg/m2 Martha Yi Other [employer] Other 11-04-2021 11:00-0400 Body weight 72.62 kg Martha Yi Other [employer] Other 08-05-2021 14:00-0400 Body height 144.78 cm Thiago Chandler Other [employer] Other 08-05-2021 14:00-0400 Body mass index (BMI) [Ratio] 32.46 kg/m2 Thiago Chandler Other [employer] Other 08-05-2021 14:00-0400 Body temperature 97 [degF] Thiago Chandler Other [employer] Other 08-05-2021 14:00-0400 Body weight 68.04 kg Thiago Chandler Other [employer] Other 08-05-2021 14:00-0400 Diastolic blood pressure 73 mm[Hg] Thiago Chandler Other [employer] Other 08-05-2021 14:00-0400 SaO2% (BldA) [Mass fraction] 97 % Thiago Chandler Other [employer] Other 08-05-2021 14:00-0400 Systolic blood pressure 110 mm[Hg] Thiago Chandler Other [employer] Other 05-27-2021 09:30-0400 Body height 152.4 cm Franck Carballo MD Work Phone: [facility] 05-27-2021 09:30-0400 Body mass index (BMI) [Ratio] 30.47 kg/m2 Franck Carballo MD Work Phone: [facility] 05-27-2021 09:30-0400 Body weight 70.76 kg Franck Carballo MD Work Phone: [facility] 05-27-2021 09:30-0400 Diastolic blood pressure 69 mm[Hg] Franck Carballo MD Work Phone: [facility] 05-27-2021 09:30-0400 Heart rate 97 /min Franck Carballo MD Work Phone: [facility] 05-27-2021 09:30-0400 SaO2% (BldA) [Mass fraction] 91 % Franck Carballo MD Work Phone: [facility] 05-27-2021 09:30-0400 Systolic blood pressure 105 mm[Hg] Franck Carballo MD Work Phone: [facility] 03-01-2019 08:00-0500 Respiratory Rate 16 /min [facility] 03-01-2019 07:23-0500 BP Diastolic 69 mm[Hg] [facility] 03-01-2019 07:23-0500 BP Systolic 100 mm[Hg] [facility] 03-01-2019 07:23-0500 Pulse (Heart Rate) 91 /min [facility] 03-01-2019 07:23-0500 Pulse Oximetry 100 % [facility] 03-01-2019 06:00-0500 BMI (Body Mass Index) 44.56 kg/m2 [facility] 03-01-2019 06:00-0500 Body weight 93.4 kg [facility] Comment on above: standing weight 03-01-2019 04:01-0500 Body Temperature 98.8 [degF] [facility] 02-25-2019 14:40-0500 Respiratory rate 17 /min [facility] 02-25-2019 10:56-0500 Respiratory rate 0 /min [facility] 02-23-2019 21:56-0500 Respiratory rate 0 /min Generic [facility] 02-23-2019 18:33-0500 BP Diastolic 78 mm[Hg] Iftikhar Kemp [facility] 02-23-2019 18:33-0500 BP Systolic 139 mm[Hg] Iftikhar Kemp [facility] 02-23-2019 18:33-0500 Pulse (Heart Rate) 78 /min Iftikhar Kemp [facility] 02-23-2019 18:33-0500 Pulse Oximetry 99 % Iftikhar Kemp [facility] 02-23-2019 18:33-0500 Respiratory Rate 16 /min Iftikhar Kemp [facility] 02-23-2019 13:38-0500 BMI (Body Mass Index) 43.28 kg/m2 Iftikhar Kemp [facility] 02-23-2019 13:38-0500 Body Temperature 97.39 [degF] Iftikhar Kemp [facility] 02-23-2019 13:38-0500 Body weight 90.72 kg Iftikhar Kemp [facility] 02-23-2019 13:38-0500 Height 144.8 cm Iftikhar Kemp [facility] 01-08-2018 11:54-0500 Body Temperature 98.01 [degF] [facility] Work Phone: 01-08-2018 11:54-0500 BP Diastolic 48 mm[Hg] [facility] Work Phone: 01-08-2018 11:54-0500 BP Systolic 115 mm[Hg] [facility] Work Phone: 01-08-2018 11:54-0500 Pulse (Heart Rate) 75 /min [facility] Work Phone: 01-08-2018 11:54-0500 Pulse Oximetry 97 % [facility] Work Phone: 01-08-2018 11:54-0500 Respiratory Rate 18 /min [facility] Work Phone: 01-08-2018 03:51-0500 BMI (Body Mass Index) 45.89 kg/m2 [facility] Work Phone: 01-08-2018 03:51-0500 Weight 96.2 kg [facility] Work Phone: 01-06-2018 16:24-0500 Height 144.8 cm [facility] Work Phone: Encounters Encounter Date Encounter Type Care Provider Facility Start: 03-21-2024 End: 03-21-2024 Bamboo flowsheet Wyatt Ley DPM Work Phone: [facility] Start: 03-21-2024 End: 03-21-2024 Bamboo flowsheet Wyatt Ley DPM Work Phone: [facility] Start: 03-21-2024 End: 03-21-2024 Office outpatient visit 15 minutes Wyatt Ley DPM Work Phone: [facility] Comment on above: Xerosis cutis (Prima ry Dx); Pain due to onychomycosis of toenails of both feet Start: 03-21-2024 End: 03-21-2024 ambulatory WYATT LEY Not Available Start: 12-21-2023 End: 12-21-2023 Bamboo flowsheet Wyatt Ley DPM Work Phone: [facility] Start: 12-21-2023 End: 12-21-2023 Bamboo flowstal Ley DPM Work Phone: [facility] Start: 12-21-2023 End: 12-21-2023 Office outpatient visit 15 minutes Wyatt Ley DPM Work Phone: [facility] Comment on above: Xerosis cutis (Prima ry Dx); Pain due to onychomycosis of toenails of both feet Start: 12-21-2023 End: 12-21-2023 ambulatory WYATT LEY Not Available Start: 12-12-2023 End: 12-12-2023 ambulatory DO Iftikhar A Kemp Work Phone: [facility] Work Phone: Start: 12-12-2023 End: 12-12-2023 Patient encounter procedure DO Iftikhar Keitaring Work Phone: [facility] Work Phone: Start: 12-06-2023 End: 12-06-2023 ambulatory DO Iftikhar A Kemp Work Phone: [facility] Work Phone: Start: 12-06-2023 End: 12-06-2023 Patient encounter procedure DO Iftikhar Keitaring Work Phone: [facility] Work Phone: Start: 11-21-2023 End: 11-21-2023 ambulatory Fahad Olexa Facility:[facility] Start: 11-21-2023 End: 11-21-2023 Patient encounter procedure DO Iftikhar Keitaring Work Phone: [facility] Work Phone: Start: 10-31-2023 End: 10-31-2023 ambulatory DO Iftikhar A Kemp Work Phone: [facility] Work Phone: Start: 10-31-2023 End: 10-31-2023 Patient encounter procedure DO Iftikhar Kemp Work Phone: [facility] Work Phone: Start: 10-31-2023 End: 10-31-2023 Patient encounter procedure DO Iftikhar Kemp Work Phone: [facility] Start: 10-31-2023 End: 10-31-2023 ambulatory DO Iftikhar Kemp Work Phone: [facility] Work Phone: Start: 10-22-2023 End: 10-23-2023 Non-patient / Non-visit DO Iftikhar Kemp Work Phone[facility] Work [facility]: Start: 10-12-2023 End: 10-12-2023 Bamboo flowsheet Wyatt Ley DPM Work Phone: [facility] Start: 10-12-2023 End: 10-12-2023 Bamboo flowsheet Wyatt Ley DPM Work Phone: [facility] Start: 10-12-2023 End: 10-12-2023 ambulatory WYATT LEY Not Available Start: 10-12-2023 End: 10-12-2023 Office outpatient new 30 minutes Wyatt Ley DPM Work Phone: [facility] Comment on above: Xerosis cutis (Prima ry Dx); Onychomycosis; Toe pain, bilateral Start: 09-21-2023 End: 09-21-2023 ambulatory DO Iftikhar Kemp Work Phone: [facility] Work Phone: Start: 09-21-2023 End: 09-21-2023 Patient encounter procedure DO Iftikhar Kemp Work Phone: [facility] Physician [facility] Work Phone: Start: 09-21-2023 End: 09-21-2023 Patient encounter procedure DO Iftikhar Kemp Work Phone: [facility] Start: 09-21-2023 End: 09-21-2023 ambulatory DO Iftikhar Kemp Work Phone: [facility] Work Phone: Start: 09-07-2023 End: 09-07-2023 ambulatory [facility] Work Phone: Start: 09-07-2023 End: 09-07-2023 Patient encounter procedure [facility] Work Phone: Start: 07-04-2023 End: 07-05-2023 ambulatory IFTIKHAR KEMP Facility:[facility] Start: 07-04-2023 End: 07-04-2023 Patient encounter procedure IFTIKHAR KEMP [facility] Start: 05-27-2023 End: 05-27-2023 Emergency department patient visit IFTIKHAR KEITARING [facility] Start: 05-27-2023 End: 05-27-2023 Emergency department patient visit Liban Otero MD Work Phone: [facility] Start: 05-10-2023 End: 05-11-2023 ambulatory IFTIKHAR KEMP Facility:[facility] Start: 05-10-2023 End: 05-10-2023 Lab Drop off IFTIKHAR KEMP [facility] Start: 05-03-2023 End: 05-03-2023 ambulatory [facility] Work Phone: Start: 05-03-2023 End: 05-03-2023 Patient encounter procedure [facility] Work Phone: Start: 11-30-2022 End: 11-30-2022 Patient encounter procedure DO Iftikhar Kemp Work Phone: [facility] Work Phone: Start: 11-30-2022 End: 11-30-2022 ambulatory DO Iftikhar Kemp Work Phone: [facility] Work Phone: Start: 11-03-2022 End: 11-03-2022 ambulatory Martha Yi Other [employer] Other Start: 11-03-2022 Office outpatient vi sit 25 minutes Martha Yi [facility] Start: 05-25-2022 End: 05-25-2022 Patient encounter procedure IFTIKHAR KEMP [facility] Start: 05-17-2022 End: 05-18-[address] IFTIKHAR KEMP Facility: Start: 02-22-2022 [facility] Start: 01-11-2022 End: 01-11-2022 ambulatory DO Iftikhar Kemp Work Phone: [facility] Work Phone: Start: 01-11-2022 End: 01-11-2022 Patient encounter procedure DO Iftikhar Kemp Work Phone: [facility] Start: 12-02-2021 Office outpatient vi sit 25 minutes Thiago Chandler [facility] Start: 12-02-2021 End: 12-02-2021 ambulatory DO Iftikhar Kemp Work Phone: [employer] Other Start: 12-02-2021 End: 12-02-2021 Patient encounter procedure DO Iftikhar Kemp Work Phone: [facility] Start: 11-04-2021 End: 11-04-2021 ambulatory Martha Yi Other [employer] Other Start: 11-04-2021 Office outpatient vi sit 25 minutes Martha Yi [facility] Start: 10-13-2021 End: 10-13-2021 Patient encounter procedure DO Iftikhar Kemp Work Phone: [facility] Start: 09-22-2021 ambulatory UNKNOWN PROVIDER Facili ty:[facility] Start: 09-22-2021 End: 09-22-2021 Patient encounter procedure Renetta Bautista DDS Work Phone: [facility] Start: 08-05-2021 End: 08-05-2021 ambulatory Thiago Chandler Other [facility] management Other Start: 08-05-2021 Office outpatient vi sit 25 minutes Thiago Chandler [facility] Start: 08-05-2021 End: 08-05-2021 Patient encounter procedure DO Iftikhar Kemp Work Phone: [facility] Start: 07-14-2021 End: 07-15-[address] DOCTOR RUSSELL Facility: Start: 06-08-2021 End: 06-09-2021 ambulatory UNKNOWN PROVIDER Facility:[facility] Start: 06-08-2021 End: 06-09-2021 Patient encounter procedure Vivi Clemons [facility] Work Phone: [facility] Start: 06-03-2021 End: 06-03-[address] [facility] Start: 06-01-2021 End: 06-02-[address] IFTIKHAR KEMP Facility: Start: 05-27-2021 End: 05-27-2021 ambulatory [facility] Start: 05-27-2021 End: 05-27-2021 Office outpatient new 30 minutes Franck Carballo MD Work Phone: [facility] Comment on above: Esophageal dysphagia (Primary Dx); Food bolus obstruction of intestine (HCC) Start: 05-03-2021 End: 05-06-2021 Evaluation and management of inpatient ZULAY SVITLANA [facility] Start: 05-02-2021 End: 05-03-2021 Emergency department patient visit IFTIKHAR KEMP [facility] Start: 07-08-2020 End: 07-09-2020 ambulatory IFTIKHAR A [facility] Start: 07-08-2020 End: 07-08-2020 Subsequent hospital visit by physician Iftikhar Otto Justo DO Work Phone: [facility] Comment on above: Arrived Start: 04-02-2020 End: 04-02-2020 Orders Only Melissa Presley Work Phone: [facility] Start: 02-23-2019 End: 03-01-2019 Evaluation and management of inpatient Generic [facility] Work Phone: [facility] Comment on above: Acute metabolic ence phalopathy (Primary Dx) Start: 02-23-2019 End: 02-23-2019 Emergency department patient visit Iftikhar Kemp [facility] Emergency Department Start: 01-06-2018 End: 01-08-2018 Evaluation and management of inpatient Joaquinrufina Garcia Work Phone: [facility] Comment on above: Pneumonia Procedures Date Procedure Procedure Detail Performing Clinician Start: 11-21-2023 Plain X-ray of right hand DO Iftikhar Kemp Work Phone: Start: 10-31-2023 Plain X-ray of right wrist DO Iftikhar Kemp Work Phone: Start: 09-21-2023 Plain X-ray of right wrist DO Iftikhar Kemp Work Phone: Start: 05-27-2023 Radiologic exam ches t single view Sandeep Jones [employer] Work Phone: Start: 05-27-2023 Complete blood count with white cell differential, automated Sandeep Jones [employer] O[employer] Work Phone: Start: 05-27-2023 Creatinine blood Sandeep Jones [employer] Work Phone: Start: 07-08-2020 Radiologic exam swal low function contrast study External Transcribed Start: 03-01-2019 Complete blood count with white cell differential, automated Idalia Durairaj Work Phone: Start: 03-01-2019 Complete blood count with white cell differential, manual Idalia Durairaj Work Phone: Start: 03-01-2019 Basic metabolic 1999 panel - Serum or Plasma Idalia Durairaj [...] count with white cell differential, manual Idalia Durairajess Work Phone: Start: 02-28-2019 Magnesium [Mass/volu me] in Serum or Plasma Idalia Durairajess Work Phone: Start: 02-28-2019 Phosphate [Mass/volu me] in Serum or Plasma Idalia Durairajess Work Phone: Start: 02-27-2019 Basic metabolic 2000 panel - Serum or Plasma Idalia Durairajess Work Phone: Start: 02-26-2019 Natriuretic peptide. B prohormone N-Terminal [Mass/volume] in Serum or Plasma Idalia Durairaj Work Phone: Start: 02-25-2019 Evaluation of arteri al blood gas studies Generic [facility] Work Phone: Start: 02-25-2019 OBTAIN ARTERIAL BLOO D GASES AND PERFORM Stuart Mcgrath Work Phone: Start: 02-25-2019 Videofluoroscopy swallow Stuart Mcgrath Work Phone: Start: 02-25-2019 Contrast echocardiography Holden Whiteside Work Phone: Start: 02-25-2019 [place] [Moles/volum e] in Serum or Plasma Stuart Mcgrath Work Phone: Start: 02-24-2019 Influenza virus A AN D B antigen assay Stuart Mcgrath Work Phone: Start: 02-24-2019 Evaluation of arteri al blood gas studies Generic [facility] Work Phone: Start: 02-24-2019 OBTAIN ARTERIAL [...] of arteri al blood gas studies Generic [facility] Work Phone: Start: 02-23-2019 Blood count hematocrit [facility] Start: 02-23-2019 Drugs of abuse urine screening test Jenelle So Work Phone: Start: 02-23-2019 Urinalysis Jenelle Sylvesteri Work Phone: Start: 02-23-2019 OBTAIN ARTERIAL BLOO D GASES AND PERFORM Jenelle Sylvesteri Work Phone: Start: 02-23-2019 Radiologic exam ches t single view Jenelle Sylvesteri Work Phone: Start: 02-23-2019 CT of head without contrast Jenelle Sylvesteri Work Phone: Start: 02-23-2019 Ammonia [Mass/volume ] in Plasma Jenelle Emerya Ngai Work Phone: Start: 02-23-2019 Basic metabolic 2000 panel - Serum or Plasma Jenelle Sylvesteri Work Phone: Start: 02-23-2019 Complete blood count with white cell differential, automated Jenelle Murdockhedi Work Phone: Start: 02-23-2019 Complete blood count with white cell differential, manual Jenelle Murdockhedi Work Phone: Start: 02-23-2019 Ethanol [Mass/volume ] in Serum or Plasma Jenelle Emerya Collettehedi Work Phone: Start: 02-23-2019 End: 02-23-2019 Glucose [Mass/volume] in Blood Jenelle Emerya Clolettehedi Work Phone: Start: 02-23-2019 Hepatic function 200 0 panel - Serum or Plasma Jenelle Emerya Collettehedi Work Phone: Start: 02-23-2019 INR in Platelet poor plasma by Coagulation assay Jenelle Emerya Collettehedi Work Phone: Start: 02-23-2019 Lactate [Moles/volum e] [...] End: 01-08-2018 Assay of magnesium Bonnie J [employer] Work Phone: Start: 01-08-2018 End: 01-08-2018 CBC, EDIF, PLATELET Bonnie Jess [employer] Work Phone: Start: 01-08-2018 End: 01-08-2018 Renal function panel [employer] Work Phone: Start: 01-07-2018 End: 01-07-2018 CT of chest [employer] Work Phone: Start: 01-07-2018 End: 01-07-2018 Assay of magnesium [employer] Work Phone: Start: 01-07-2018 End: 01-07-2018 CBC, EDIF, PLATELET [employer] Work Phone: Start: 01-07-2018 End: 01-07-2018 Renal function panel [employer] Work Phone: Start: 01-07-2018 End: 01-07-2018 Iaad ia mult step method nos each organism [employer] Work Phone: Start: 01-06-2018 End: 01-06-2018 Cul bact xcpt urine blood/stool aerobic isol [employer] Work Phone: Start: 01-06-2018 End: 01-06-2018 C-reactive protein [employer] Work Phone: Start: 01-06-2018 End: 01-06-2018 Sedimentation rate rbc non-automated [employer] Work Phone: Start: 01-06-2018 End: 01-06-2018 Cultyp nuc [...] 2) Shingles (RZV) [facility] Start: 10-04-2028 Tetanus vaccination [facility] Start: 05-30-2024 End: 05-30-2024 Patient encounter procedure 05/30/2024 10:10 AM EDT Procedure Visit [facility] [address] [id number] Wyatt Ley DPM [address] [address] [facility] Start: 03-21-2024 End: 03-21-2024 Patient encounter procedure 03/21/2024 10:10 AM EST Procedure Visit [facility] [address] [id number] Wyatt Ley DPM [address] [address] Pain due to onychomycosis of toenails of both feet (Primary Dx); Xerosis cutis [facility] Comment on above: Pain due to onychomycosis of toenails of both feet (Primary Dx); Xerosis cutis Start: 02-29-2024 End: 02-29-2024 Patient encounter procedure 02/29/2024 9:50 AM EST Procedure Visit [facility] [address] [facility] [address] [place] [id number] Wyatt Ley DPM [address] [address] [facility] Start: 12-21-2023 End: 12-21-2023 Patient encounter procedure [facility] Comment on above: Pain due to onychomycosis of toenails of both feet (Primary Dx); Xerosis cutis Start: 11-21-2023 Plain X-ray of right hand XR hand RT min 3V* [facility] Start: 11-21-2023 XR Hand - right GE 3 Views [facility] Start: 10-31-2023 Plain X-ray of right wrist XR wrist RT min 3V* [facility] Start: 10-31-2023 XR Wrist - right GE 3 Views [facility] Start: 10-15-2023 Influenza vaccination [facility] Start: 09-21-2023 Plain X-ray of right wrist XR wrist RT 2V [facility] Start: 09-21-2023 XR Wrist - right 2 Views [facility] Start: 10-14-2022 COVID-19 VACCINE ( season) COVID-19 VACCINE ( season) [facility] Start: 11-13-2021 Influenza vaccination Influenza Vaccine (#1) [facility] Start: 06-03-2021 End: 06-03-2021 Admission to same day surgery center 06/03/2021 Surgery Franck Carballo MD [address] [place] [address] ESOPHAGOGASTRODUODENOSCOPY [facility] Comment on above: ESOPHAGOGASTRODUODENOSCOPY Start: 06-03-2021 End: 06-03-2021 Esophagogastroduodenoscopy ESOPHAGOGASTRODUODENOSCOPY Esophageal dysphagia Food bolus obstruction of intestine (HCC) 06/03/2021 8:10 AM EDT [facility] Start: 06-03-2021 Subsequent hospital visit by physician 06/03/2021 Hospital Encounter Franck Carballo MD [address] [place] [address] [facility] Start: 10-14-2020 Influenza vaccination Sequential Influenza Vaccine (Season Ended) [facility] Start: 08-14-2020 COVID-19 Vaccine (3 - Booster for Pfizer series) COVID-19 Vaccine (3 - Booster for Pfizer series) [facility] Start: 05-12-2020 COVID-19 Vaccine (3 - Booster for Pfizer series) COVID-19 Vaccine (3 - Booster for Pfizer series) [facility] Start: 10-15-2019 Influenza vaccination given Sequential Influenza Vacci ne (#1) [facility] Start: 01-06-2019 Thyroid stimulating hormone measurement TSH [facility] Start: 01-06-2019 Thyrotropin Qn TSH [facility] Work Phone: Start: 10-14-2018 Influenza vaccination given SEQUENTIAL INFLUENZA VACCI NE (#1) [facility] Start: 10-14-2017 Influenza vaccination INFLUENZA VACCINE (#1) [facility] Work Phone: Start: 07-13-2015 Tetanus vaccination TETANUS [facility] Start: 08-22-2011 Hepatitis B vaccination HEP B VACCINE (1 of 3 - 19+ 3-dose series) [facility] Start: 08-22-2011 Third diphtheria, tetanus and acellular pertussis (DTaP) vaccination TDAP (ADULT) [facility] Work Phone: Start: 2010 Hepatitis C antibody, confirmatory test Hepatitis C Screening [facility] Start: 2010 Hepatitis C screening [facility] Start: 2010 Tetanus + diphtheria + acellular pertussis vaccine (product) Tdap Booster [facility] Start: 2010 Tetanus vaccination TETANUS [facility] Work Phone: Start: 08-22-2007 HIV screening [facility] Start: 2005 HIV screening HIV SCREENING DISCUSSION [facility] Work Phone: Start: 2004 Adolescent depression screening assessment Depression Screening (PHQ9) [facility] Start: 2004 COVID-19 Vaccine (1) COVID-19 Vaccine (1) [facility] Start: 2004 Depression screening using PHQ-9 (Patient Health Questionnaire 9) score [facility] Start: 08-22-1995 History and physical examination, annual for health maintenance Wellness Visit [facility] Start: 1992 Hepatitis C screening HEPATITIS C VIRUS SCREENING [facility] Start: 1992 Tetanus vaccination TETANUS EVERY 10 YR [facility] Bacteria identified Cx Nom (Bld) [facility] Work Phone: End: 02-23-2019 Bacteria identified Cx Nom (Bld) Blood Culture Aerobic/Anaerobic Microbiology Routine Once for 1 Occurrences starting 02/23/2019 until 02/23/2019 [facility] Comment on above: Once for 1 Occurrences starting 02/23/19 20 until 02/23/2019 CBC, EDIF, PLATELET CBC, EDIF, P LATELET Routine Every morning Lab until discontinued starting 01/07/2018, 2 completed [facility] Work Phone: Comment on above: Every morning Lab until discontinued sta rting 01/07/2018, 2 completed MAGNESIUM MAGNESIUM Routin e Every morning Lab until discontinued starting 01/07/2018, 2 completed [facility] Work Phone: Comment on above: Every morning Lab until discontinued sta rting 01/07/2018, 2 completed RENAL FUNCTION PANEL RENAL FUNCT ION PANEL Routine Every morning Lab until discontinued starting 01/07/2018, 2 completed [facility] Work Phone: Comment on above: Every morning Lab until discontinued sta rting 01/07/2018, 2 completed Standard ECG ECG STAT 018 12:02 PM EST [facility] Work Phone: Immunizations Immunization Date Immunization Notes Care Provider Vimal angulo 11-30-2022 influenza virus vaccine, unspecified formulation Wyatt Ley DPM Work Phone: [facility] 03-17-2020 COVID-19 Vaccine Pfizer - Documentation Purposes Only Thiago Chandler Other [facility] 02-25-2020 COVID-19 Vaccine Pfizer - Documentation Purposes Only Thiago Chandler Other [facility] 11-20-2019 influenza, injectabl e, quadrivalent, preservative free Vivi Deonte RDH Work Phone: [facility] 11-20-2019 influenza virus vaccine, unspecified formulation Renetta Bautista DDS Work Phone: [facility] 11-22-2017 influenza, injectabl e, quadrivalent, preservative free Vivi Deonte RDH Work Phone: [facility] 12-07-2016 influenza, injectabl e, quadrivalent, contains preservative Vivi Deonte RDH Work Phone: [facility] 11-18-2015 influenza, seasonal, injectable Vivi Deonte RDH Work Phone: [facility] 12-04-2014 influenza, injectabl e, quadrivalent, preservative free Vivi Deonte RDH Work Phone: [facility] 12-19-2013 influenza, injectabl e, quadrivalent, preservative free Vivi Deonte RDH Work Phone: [facility] 12-12-2012 influenza, seasonal, injectable Vivi Deonte RDH Work Phone: [facility] 12-07-2011 influenza, seasonal, injectable Vivi Deonte RDH Work Phone: [facility] 10-27-2010 influenza virus vaccine, whole virus Vivi Deonte RDH Work Phone: [facility] 12-31-2008 novel [id number], preservative-free, injectable Vivi Deonte RDH Work Phone: [facility] 07-12-2005 TD(adult) unspecifie d formulation Vivi Deonte RDH Work Phone: [facility] Payers Date Payer Category Payer Medicaid [id number] 2021 Self-pay [id number] [address] [facility] xxxxxxxxxxxx 2019-Present [id number] [facility] [id number] 2019-Present [id number] 2017 Medicaid [id number] 1992 Unknown [id number] 1992 Unknown [id number] 1992 Unknown [id number] 1992 Unknown [id number] 1992 Unknown [id number] 1992 Unknown [id number] 1992 Unknown [id number] 1992 Unknown [id number] 1992 Unknown [id number] [id number] 1992 Unknown [id number] 1992 Unknown [id number] 1992 Unknown [id number] [id number] 1992 Unknown [id number] 1992 Unknown [id number] 9 1992 Unknown [id number] 9 1992 Unknown [id number] 9 1959 Medicaid [id number] Unknown [id number] Unknown [id number] Social History Date Type Detail Facility Start: 01-06-2018 End: 10-12-2023 Tobacco smoking status NHIS Never smoker [facility] Work Phone: Start: 1990 Sex Assigned At Not on file O [facility] Work Phone: Start: 02-23-2019 End: 03-21-2024 Alcohol intake Lifetime non-drinker (finding) [facility] Start: 02-23-2019 End: 02-28-2019 History SDOH Alcohol Frequency 1 [facility] Start: 02-28-2019 End: 10-12-2023 Tobacco use and exposure Never used [facility] Start: 05-17-2021 End: 05-27-2021 Exposure to SARS-CoV-2 (event) Not sure [facility] Tobacco smoking stat us [facility] Tobacco smoking consumption unknown [facility] Start: 01-09-2019 End: 12-21-2023 Sex Assigned At [facility] Start: 1990 Sex Assigned At Male [facility] Tobacco smoking status No Smokin g Status Entered [facility] Start: 05-27-2023 Alcoholic beverage intake Current non-drinker of alcohol (finding) [facility] Start: 01-09-2019 End: 12-21-2023 History of Social function [facility] Start: 01-06-2018 Gender identity Identifies as male gender (finding) [facility] Clinical Notes 07-08-2020 to 03-21-2024 Wyatt Ley, TERA - 03/21/2024 10:10 AM Gigi Ley DPM - 12/21/2023 9:40 AM Gigi Ley DPM - 10/12/2023 9:40 AM Dae Marks RN - 05/27/2023 4:01 PM EDTAttachments Note Date & Type Note Facility 03-21-2024 History of Present illness Narrative Patient: Fahad Bernabe : 1990 PCP: Iftikhar Kemp MD SUBJECTIVE This is a 33 y.o. male that presents today with a CC of elongated, thick nails. Pt states nails have been elongated and thick for many years and cause pain with ambulation in shoegear. Pt has tried previous treatment with minimal relief. Pt presents today for nail care and treatment. Patient presents today with caregiver and has from [place] Patient also presents today for follow-up of dry skin and fissures to feet and has been using prescribed or recommended [id number] cream with positive improvement. Allergies: Not on File Past Medical History: Past Medical History: Diagnosis Date ADHD (CMS/HCC) Down syndrome Hypertension (CMS/HCC) Medications: No current outpatient medications on file. Social History: Social History Socioeconomic History Marital status: Unmarried Spouse name: Not on file Number of children: Not on file Years of education: Not on file Highest education level: Not on file Occupational History Not on file Tobacco Use Smoking status: Never Smokeless tobacco: Never Vaping Use Vaping status: Never Used Substance and Sexual Activity Alcohol use: Never Drug use: Never Sexual activity: Defer Other Topics Concern Not on file Social History Narrative Not on file Social Drivers of Health Financial Resource Strain: Not on file Food Insecurity: Not on file Transportation Needs: Not on file Physical Activity: Not on file Stress: Not on file Social Connections: Not on file Intimate Partner Violence: Unknown (04/06/2023) Received from [facility] Safety & Environment Fear of Current or Ex-Partner: Not on file Emotionally Abused: Not on file Physically Abused: Not on file Sexually Abused: Not on file Physically or Sexually Abused: Not on file Housing Stability: Not on file ROS: General: denies fever, chills, fatigue, malaise Gastrointestinal: denies abdominal pain, ulcers, or changes in appetite or bowel habits Musculoskeletal: denies arthritis, denies loss of strength, pain to hip, knees, back Cardiovascular: denies CP, palpitations, irregular rhythms OBJECTIVE LE EXAM: DERM: Elongated thick yellow crumbly nails digits 1 through 10. Positive hair growth b/l feet. Diminished Dry and scaly skin to bilateral feet VASC: Positive palpable pedal pulses bilaterally NEURO: Gross sensation intact to bilateral feet ORTHO: Positive pain on palpation to toenails of the left 1,2,3,4,5 toes and right 1,2,3,4,5 toes ASSESSMENT 1. Pain due to onychomycosis of toenails of both feet 2. Xerosis cutis PLAN Discussed proper foot care with patient today. Debride nails in length and thickness digits 1 through 10 Patient education on condition and treatment of condition. Pt encouraged to continue with hydrating creams to feet with offer for medication and/or prescription refill. Wyatt Ley DPM documented in this encounter [facility] 12-21-2023 History of Present illness Narrative Patient: Fahad Bernabe : 1990 PCP: Iftikhar Kemp MD SUBJECTIVE This is a 33 y.o. male that presents today with a CC of elongated, thick nails. Pt states nails have been elongated and thick for many years and cause pain with ambulation in shoegear. Pt has tried previous treatment with minimal relief. Pt presents today for nail care and treatment. Patient presents today with caregiver and has from [place] Patient also presents today for follow-up of dry skin and fissures to feet and has been using prescribed or recommended [id number] cream with positive improvement. Allergies: Not on File Past Medical History: Past Medical History: Diagnosis Date ADHD ([facility]) Down syndrome Hypertension ([facility]) Medications: No current outpatient medications on file. Social History: Social History Socioeconomic History Marital status: Unmarried Spouse name: Not on file Number of children: Not on file Years of education: Not on file Highest education level: Not on file Occupational History Not on file Tobacco Use Smoking status: Never Smokeless tobacco: Never Vaping Use Vaping status: Never Used Substance and Sexual Activity Alcohol use: Never Drug use: Never Sexual activity: Defer Other Topics Concern Not on file Social History Narrative Not on file Social Drivers of Health Financial Resource Strain: Not on file Food Insecurity: Not on file Transportation Needs: Not on file Physical Activity: Not on file Stress: Not on file Social Connections: Not on file Intimate Partner Violence: Unknown (04/06/2023) Received from [facility] [place] Safety & Environment Fear of Current or Ex-Partner: Not on file Emotionally Abused: Not on file Physically Abused: Not on file Sexually Abused: Not on file Physically or Sexually Abused: Not on file Housing Stability: Not on file ROS: General: denies fever, chills, fatigue, malaise Gastrointestinal: denies abdominal pain, ulcers, or changes in appetite or bowel habits Musculoskeletal: denies arthritis, denies loss of strength, pain to hip, knees, back Cardiovascular: denies CP, palpitations, irregular rhythms OBJECTIVE LE EXAM: DERM: Elongated thick yellow crumbly nails digits 1 through 10. Positive hair growth b/l feet. Diminished Dry and scaly skin to bilateral feet VASC: Positive palpable pedal pulses bilaterally NEURO: Gross sensation intact to bilateral feet ORTHO: Positive pain on palpation to nails 1 through 10 ASSESSMENT 1. Pain due to onychomycosis of toenails of both feet 2. Xerosis cutis PLAN Discussed proper foot care with patient today. Debride nails in length and thickness digits 1 through 10 Patient education on condition and treatment of condition. Pt to continue with lac hydrin cream to feet daily with offer for refills. Wyatt Ley DPM documented in this encounter [facility] 10-12-2023 History of Present illness Narrative Patient: Fahad Bernabe : 1990 PCP: Iftikhar Kemp MD SUBJECTIVE This is a 33 y.o. male that presents today with a CC of elongated, thick nails. Pt states nails have been elongated and thick for many years and cause pain with ambulation in shoegear. Pt has tried previous treatment with minimal relief. Pt presents today for nail care and treatment. Patient presents today with caregiver and has from [place] Pt also presents today with secondary complaints of dry scaly skin to feet. Pt states that they have not been using OTC creams and lotions with minimal relief. Allergies: Not on File Past Medical History: No past medical history on file. Medications: No current outpatient medications on file. Social History: Social History Socioeconomic History Marital status: Unknown Spouse name: Not on file Number of children: Not on file Years of education: Not on file Highest education level: Not on file Occupational History Not on file Tobacco Use Smoking status: Not on file Smokeless tobacco: Not on file Substance and Sexual Activity Alcohol use: Not on file Drug use: Not on file Sexual activity: Not on file Other Topics Concern Not on file Social History Narrative Not on file Social Determinants of Health Financial Resource Strain: Not on file Food Insecurity: Not on file Transportation Needs: Not on file Physical Activity: Not on file Stress: Not on file Social Connections: Not on file Intimate Partner Violence: Unknown (04/06/2023) Received from [facility] [place] Safety & Environment Fear of Current or Ex-Partner: Not on file Emotionally Abused: Not on file Physically Abused: Not on file Sexually Abused: Not on file Physically or Sexually Abused: Not on file Housing Stability: Not on file ROS: General: denies fever, chills, fatigue, malaise Gastrointestinal: denies abdominal pain, ulcers, or changes in appetite or bowel habits Musculoskeletal: denies arthritis, denies loss of strength, pain to hip, knees, back Cardiovascular: denies CP, palpitations, irregular rhythms OBJECTIVE LE EXAM: DERM: Elongated thick yellow crumbly nails digits 1 through 10. Positive hair growth b/l feet. Dry and scaly skin to bilateral feet VASC: Positive palpable pedal pulses bilaterally NEURO: Gross sensation intact to bilateral feet ORTHO: Positive pain on palpation to nails 1 through 10 ASSESSMENT 1. Xerosis cutis 2. Onychomycosis 3. Toe pain, bilateral PLAN Discussed proper foot care with patient today. Debride nails in length and thickness digits 1 through 10 Patient education on condition and treatment of condition. Discussed application of hydrating cream to feet twice daily and to not place between toes and to apply prior to bed in evenings and to observe for any redness to feet or red streaks or drainage to feet. Patient to consider [id number] treatments for medication or use of urea cream and prescription today was offered for Lac-Hydrin cream. Wyatt Ley DPM documented in this encounter [facility] 05-27-2023 Emergency department Note Discharge instructions were provided to the patient and mother. Aware to follow up as needed. Soft/liquid diet cor 24 hours explained. No questions. Iv removed and tolerated well. [facility] 05-27-2023 Emergency department Note Discharge instructions were provided to the patient and mother. Aware to follow up as needed. Soft/liquid diet cor 24 hours explained. No questions. Iv removed and tolerated well. Attending note: I have personally performed a [id number] and diagnostic assessment. I have discussed the [...] Portions of this chart were created using LogicLoop electronic dictation. Please excuse any typographical or grammatical errors contained herein. Liban Otero MD 05/27/23 1544 Liban Otero MD 05/27/23 1547 Called intio the patients room. Patient had large 1 inch piece of hotdog in the emesis bucket. Patient is smiling and stating I did it, I feel so much better . Regina and were made aware and the field technician is now at bedside. No distress. Vss. stated to wait 10 minutes and take him in oral challenge. Xray at bedside. Probate Lawyer at bedside. Patient and mother stating they were at [facility] and he was eating a [...] with mother at bedside. Emergency Department Report [facility] EMERGENCY MEDICINE Service Date:.05/27/23 PCP: Iftikhar Kemp Chief Complaint: Chief Complaint Patient presents with Choking Mother and patient was choking on a hotdog at [facility]. Vss. HPI Fahad Bernabe is [...] Partner Violence: Unknown (04/06/2023) Received from [facility] Safety & Environment Fear of Current or [...] the patient with above information. . . EDWIGE Butler 05/27/23 1545 Associated attestation - Liban Otero MD - 05/27/2023 8:13 PM EDT Attending note: I have consulted with the mid-level provider and agree with the assessment and plan. The patient was seen independently by the mid-level and I did not personally examine the patient. documented in this encounter [facility] 05-27-2023 Hospital Discharge instructions Liban Otero MD - 05/27/2023 3:46 PM EDT Stay with soft foods soups broth and Jell-O the next 24 hours then advance as directed avoid solid food at this time due to inflammation The following attachments cannot be sent through Care Everywhere.Foreign Body in Throat or Esophagus (Bruneian)documented in this encounter [facility] 05-27-2023 Physician Emergency department Note Attending note: I have personally performed a jbyo-co-jeai and diagnostic assessment. I have discussed the [...] and for further detail, please see the [facility] note. VITAL SIGNS DURING ED VISIT: Patient [...] Portions of this chart were created using LogicLoop electronic dictation. Please excuse any typographical or grammatical errors contained herein. Liban Otero MD 05/27/23 1544 Liban Otero MD 05/27/23 1547 [facility] 05-27-2023 Emergency department Note Called intio the patients room. Patient had large 1 inch piece of hotdog in the emesis bucket. Patient is smiling and stating I did it, I feel so much better . Probate Lawyer and dr were made aware and the field technician is now at bedside. No distress. Vss. Dr stated to wait 10 minutes and take him in oral challenge. [facility] 05-27-2023 Emergency department Note Xray at bedside. Probate Lawyer at bedside. [facility] 05-27-2023 Emergency department Note Patient and mother stating they were at [facility] and he was eating a [...] resting in bed with mother at bedside. [facility] 05-27-2023 Physician Emergency department Note Emergency Department Report [facility] EMERGENCY MEDICINE Service Date:.05/27/23 PCP: Iftikhar Kemp Chief Complaint: Chief Complaint Patient presents with Choking Mother and patient was choking on a hotdog at [facility]. Vss. HPI Fahad Bernabe is [...] Partner Violence: Unknown (04/06/2023) Received from [facility] [place] Safety & Environment Fear of Current or [...] the patient with above information. . . EDWIGE Butler 05/27/23 1545 Associated attestation - Liban Otero MD - 05/27/2023 8:13 PM EDT Attending note: I have consulted with the mid-level provider and agree with the assessment and plan. The patient was seen independently by the mid-level and I did not personally examine the patient. [facility]-10-[facility]23 Evaluation + Plan note Diagnostic Tests PendingLithium Level 05/10/23T3 Free 05/10/23 [facility] 11-03-2022 Evaluation note Encounter Date Diagnosis Assessment Notes Oct, Pulmonary hypertension (ICD-10 - I27.20) Oct, Sleep apnea in adult (ICD-10 - G47.33) Oct, Pickwickian syndrome (ICD-10 - E66.2) Oct, Pneumonia (ICD-10 - J18.9) Continue with aspiration prevention measures as you are [facility] Other 09-21-2023 History general Narrative - Reported* Type Description Date Medical History sleep apnea....Auto CPAP 8-12 wi th O2 at 3 liters Medical History Hypothyroidism Medical History cleft palate Medical History pulmonary HTN Medical History ADHD Medical History Seizure Disorder Surgical History Heart 2 holes upper and lower a t Surgical History tubes in ears Hospitalization History pneumonia [facility] 09/2018 Hospitalization History Sepsis [facility] 09/2018 Hospitalization History [facility] pneumonia 12/2018 Hospitalization History [facility] Mans[facility] el[facility] Pneuminia 02/2019 [facility] Other 10-20-2022 Evaluation note* Encounter Date Diagnosis [...] responded to diuretics and to oxygen therapy [facility] [facility] Other 09-22-2022 Evaluation note* Encounter Date Diagnosis Assessment Notes Treatment Notes Treatment Clinical Notes Oct, Pulmonary hypertension (ICD-10 - I27.20) Oct, Sleep apnea in adult (ICD-10 - G47.33) Continue to follow Dr. Chandler recommendations. [facility] astro technician stated results of most recent sleep study completed 10/13/2021 will be discussed at patient's next sleep lab visit in November 2021. Oct, Pickwickian syndrome (ICD-10 - E66.2) Oct, Pneumonia (ICD-10 - J18.9) [facility] Other 08-10-2022 History of Present illness Narrative* Michelle Singh DDS - 09/22/2021 10:00 AM EDT ----- Wednesday, September 22, 2021 at 11:33:21 AM ----- ----- Provider: [id number] Juan Pablo Singh, -- Clinic: [place] ----- COMPOSITE SCIENTOLOGIST Patient is scheduled for Gnosticism on tooth #22-MDF, 23-MDF, 24-MDF, 25-MDF, 26-MDF and 27 surface MDF. Reviewed Medical History. Pt exhibited the following conditions: Mental Disorders Patient is ready for treatment. Topical Benzocaine gel applied at the injection site for 2 minutes. Administered 1 carpules of Lidocaine, 2% with Epinephrine 1:100,000,. Decay/existing taoist removed, cavity prepared. Selectively etched enamel with 37% phosphoric acid, rinsed, and blot dried. OptiBond davidson applied and light-cured. Condensed packable composite shade in light cured increments using Mylar strip and wedge. Finished with finishing burs, checked occlusion, verified proximal contacts and taoist was polished. Rinsed and suctioned intraorally, advised [...] 2021 at 11:49:29 AM ----- ----- Provider: [id number] Juan Pablo Zapata DDS -- Clinic: [place] ----- documented in this [id number] Evaluation note* Encounter Date Diagnosis Assessment Notes [...] responded to diuretics and to oxygen therapy [facility] [facility] Other 06-23-2022 History general Narrative - Reported* Type Description Date Medical History sleep apnea....Auto CPAP 8-12 wi th O2 at 3 liters Medical History Hypothyroidism Medical History cleft palate Medical History pulmonary HTN Medical History ADHD Medical History Seizure Disorder Surgical History Heart 2 holes upper and lower a t Surgical History tubes in ears Hospitalization History pneumonia [facility] 09/2018 Hospitalization History Sepsis [facility] 09/2018 Hospitalization History [facility] pneumonia 12/2018 Hospitalization History [facility] Pneuminia 02/2019 [facility] Other 04-26-2022 History of Present illness Narrative* Vivi Clemons, [facility] - 06/08/2021 10:54 AM EDT [facility], Pt is ready for tx PT is [...] on 6 month recall. Examination completed by /MANAGER [facility] [place]: mian ----- Signed on Tuesday, June 08, 2021 at 2:17:56 PM ----- ----- Provider: Emeterio Zapata DDS -- Clinic: [place] ----- documented in this [id number] NoteEXAMINATION: XR CHEST 2 V HISTORY: COVID-19 [...] Electronically authenticated by: ZULAY LYLE Date: 2021-06-01 11:36[facility]04-14-2022 History of Present illness Narrative* Franck Carballo [...] covid, recent covid positive documented in this [id number] Procedure note* Lazaro Figueredo SLP - 07/08/2020 8:30 AM EDT Procedure(s): OPERATIONS RESEARCH ANALYST MODIFIED BARIUM SWALLOW Pre-Procedure Diagnose(s): Dysphagia, oropharyngeal Post-Procedure Diagnose(s): Dysphagia, oropharyngeal [facility] Speech Language Pathology Modified Barium Swallow [...] 8 Point Penetration-Aspiration Scale [place]: Not Tested [place]: Not Tested Thin: 2 - Material enters [...] note No data available for this section [facility] Diagnosis Dyspepsia Dyspepsia and other [...] [facility] note* Diagnosis Onset Date Resolution Status Pulmonary hypertension [facility] Work Phone: Evaluation note* Diagnosis Foreign body in esophagus, initial encounter- Primary Development delay Unspecified delay in development [facility] Diagnosis Onset Date Resolution Status Distal radius fracture acute Distal radius fracture acute [facility] Work Phone: Evaluation note* Diagnosis Onset Date Resolution Status Distal radius fracture acute Distal radius fracture acute 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 acute Distal radius fracture acute Fracture of distal phalanx of right thumb acute [facility] Work Phone: evaluation note* Diagnosis Onset Date Resolution Status Distal radius fracture acute Distal radius fracture acute 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 acute Distal radius fracture acute Fracture of distal phalanx of right thumb acute 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 acute Distal radius fracture acute Fracture of distal phalanx of right thumb acute [facility] Work Phone: evaluation note* Diagnosis Onset Date Resolution Status Distal radius fracture acute Distal radius fracture acute 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 acute Distal radius fracture acute Fracture of distal phalanx of right thumb acute 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 acute Distal radius fracture acute Fracture of distal phalanx of right thumb acute Down syndrome acute Intolerance to BiPAP/CPAP ac absentee-shawnee NARINDER (obstructive sleep apnea) acute Pulmonary hypertension [facility] Work Phone: Evaluation note* Diagnosis Onset Date Resolution Status Distal radius fracture acute 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 acute Distal radius fracture acute Fracture of distal phalanx of right thumb acute 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 acute Distal radius fracture acute Fracture of distal phalanx of right thumb acute Down syndrome acute Intolerance to BiPAP/CPAP ac absentee-[place] NARINDER (obstructive sleep apnea) acute Pulmonary hypertension acute Down syndrome acute NARINDER (obstructive sleep apnea) acute Pulmonary hypertension acute [facility] Work Phone: Evaluation note* Diagnosis Xerosis cutis- Primary Other specified disease of sebaceous glands Pain due to onychomycosis of toenails of both feet documented in this encounter [facility] Healthcare[facility]* Diagnosis Xerosis cutis- Primary Other specified disease of sebaceous glands Onychomycosis Dermatophytosis of nail Toe pain, bilateral documented in this encounter [facility] HealthcareEvaluation note* Diagnosis Xerosis cutis- Primary Other specified disease of sebaceous glands Pain due to onychomycosis of toenails of both feet documented in this encounter [facility] HealthcareHistory general Narrative - Reported* Type Description Date Medical History sleep apnea....Auto CPAP 8-12 O2 at 3 liters Medical History Hypothyroidism Medical History cleft palate Medical History pulmonary HTN Medical History ADHD Medical History Seizure Disorder Surgical History Heart 2 holes upper and lower a t Surgical History tubes in ears Hospitalization History pneumonia [facility] 09/2018 Hospitalization History Sepsis [facility] 09/2018 Hospitalization History [facility] pneumonia 12/2018 Hospitalization History [facility] Mans [facility] Pneuminia 02/2019 [facility] Other Hospital Discharge instructions No data available for this section [facility] No data available for this section [facility] Reason for Referral Status Reason Specialty Diagnoses / Procedures Referre d By Contact Referred To Contact Bonnie Shankar, EKG/ECG TECHNICIAN-GREASE CUP FILLER [address] [place] [address] Status Reason Specialty Diagnoses / Procedures Re ferred By Contact Referred To Contact New Request Procedures INPATIENT ADMISSION NOTIFICATION Joaquin Garcia MD [address] [place] [id number] Status Reason Specialty Diagnoses / Procedures Referre d By Contact Referred To Contact Closed Procedures ECG Naida Masters, PAFausto [address] [place] [address] Status Reason Specialty Diagnoses / Procedures Referred By Contact Referred To Contact Authorized Patient Preference Rehabilitation Diagnoses Acute metabolic encephalopathy Idalia Sims MD [address] [place] [address] Status Reason Specialty Diagnoses / Procedures Referre d By Contact Referred To Contact Closed Radiology Diagnoses Dyspepsia Acute respiratory failure, unspecified whether with hypoxia or hypercapnia (HCC) Procedures XR Modifed Barium Swallow JustoIftikhar, DO [address] [place] [address] Discharge Instructions * Discharge Instr - Diet - Brenna Fall RN - 01/08/2018 2:59 PM EST Resume pre-hospital diet As tolerated. * Discharge Instr - Activity - Brenna Fall RN - 01/08/2018 2:58 PM EST Resume pre-hospital activity as tolerated. The following attachments cannot be sent through Care Everywhere. * Benzonatate capsules (Bruneian) * Prednisone tablets (Bruneian) * Levofloxacin tablets (Bruneian) * Adult, Pneumonia (Bruneian) in this encounter* Discharge Instr- IP OPERATIONS RESEARCH ANALYST* Idalia Sims MD - 03/01/2019 10:22 AM EST No straws, please follow aspriartion precautions * Discharge Instr - Care Coordination* Ivory Bhatia LISW - 02/25/2019 12:39 PM EST [facility] - [phone] FAX [phone] Mother Edison to transport patient - [phone]. * Attachments The following attachments cannot be sent through Care Everywhere. * Aspiration Pneumonia (Bruneian) documented in this encounter History of Present Illness * Dixie Alexander, PT - 01/07/2018 1:31 PM EST Formatting of this note may be different from the original. 01/07/18 5439 General Information RN Approved Intervention as tolerated [...] Status) full weight bearing Home Setting Residence (fpc; mother assists with pt Hx) Lives With other (see comments) (fpc; was home visiting mom when got ill) First floor bed/bathroom yes (all 1 level at [facility]) Number of Stairs to Enter Home (0 at [facility]pc; has a couple at mom's house) Number [...] Supine to Sit, Rehab Eval Level of Swain: Supine/Sit other (see comments) (pt found up in chair; assistx1 c ACCESS SERVICES LIBRARIAN this AM, per mother) Transfer Skill: Sit To Stand, Rehab Eval Swain (Sit-Stand Transfers) contact guard Physical Assist/Nonphysical Assist: Sit/Stand set-up required;verbal cues;1 person assist (line managment needed) Weight-Bearing Restrictions: Sit/Stand full weight-bearing Assistive Device For Transfer: Sit/Stand (CGAx1 with gait belt only) Gait Skills, PT Eval Level of Swain: Gait contact guard Physical Assist/Nonphysical Assist: Gait [...] to medical status) Stair Negotiation Level of Swain: Stair Negotiation (held steps due to pt does not have at fpc) Balance Additional Documentation (sitting = WNL; standing = good-) Sensory Examination Sensory Examination WFL General Interventions Planned Therapy Interventions balance training;bed mobility training;endurance;gait training;neuromuscular re- education;strengthening;transfer training;postural re-education PRIOR LEVEL [facility] Basic Mobility Inpatient Short Form Turning [...] 3 - A Little Assistance PRIOR LEVEL [facility] Mobility Raw Score 23 PRIOR LEVEL [facility] Mobility Functional Limitation/Modifier 11.20% Prior Functional Impairment in Basic Mobility - CI CURRENT [facility] Basic Mobility Inpatient Short Form Turning [...] 2 - A Lot of Assistance CURRENT [facility] Mobility Raw Score 18 CURRENT [facility] Mobility Functional Limitation/Modifier 46.58% Currently Impaired in Basic Mobility - CK Projected [facility] Mobility Raw Score 23 Projected [facility] Mobility Functional Limitation/Modifier 11.20% Projected Functional Impairment in Basic Mobility - CI Assessment Assessment Narrative Pt presents with limited activity tolerance and mild shortness of breath with mobility today related to medical status, and would benefit from skilled PT services during acute care stay to improve mobility tolerance and overall safety with all mobility. Discharge Recommendations pt to return to [facility] with HEP Clinical Impression Criteria for Skilled [...] comments) (at this time, anticipating return to [facility] with HEP) Plan Plan Narrative pt to be seen 1-2x/day during acute care stay Therapist Information License # [id number] Patient status at end of treatment/response to [...] of this patient is transferred to [facility] Inpatient Physical Therapist following this evaluation. Dixie Alexander, PT, DPT #[id number] Time in: 836 AM Time out: 900 AM Billable time: 24 min Charges: Eval (low complexity) 1@24min Current anticipated discharge recommendation: anticipate pt to return to [facility] with HEP Patient demonstrates functional limitation in [...] The patient is discharged today back to [facility]. Called the facility and spoke with Emilia. She said they [facility]. Faxed the referral and day of discharge bundle to the facility. Please call report to [phone]. Information faxed to [phone]. Patient's mother plans to transport the patient. Case closed at discharge. [facility] [facility] Disposition D/C Disposition: Another Health Care Institution Not Defined([facility] care facility.) Agency/Destination: ([facility]) Transportation Type: Auto(Mother, Edison to transport [phone]) Reason for Choice: Currently with agency Anticipated Discharge Plan Anticipated HME: Undetermined * Damaris Yang LISW - 02/28/2019 3:30 PM EST DISCHARGE PLAN PROGRESS NOTE Date: 02/28/2019 Time: 3:31 PM Patient Name: Fahad Bernabe Date of : 1990 Sex: Male Returned a call to [facility] [phone]. Discussed that the plan was to discharge thepatient back to their facility tomorrow. [facility] Disposition D/C Disposition: Another Health Care Institution Not Defined([facility] care facility.) Agency/Destination: ([facility]) Transportation Type: Auto(Mother, Edison to transport [phone]) Reason for Choice: Currently with agency Anticipated Discharge Plan Anticipated HME: Undetermined * Idalia Sims MD - 02/28/2019 1:32 PM EST [facility] Medicine Inpatient Follow-up 02/28/2019 Idalia Sims MD [facility] Patient: Fahad Bernabe Date of : [...] Sims MD - 02/27/2019 3:54 PM EST [facility] Medicine Inpatient Follow-up 02/27/2019 Idalia Sims MD [facility] Patient: Fahad Bernabe Date of : [...] IMAGING: Reviewed 3:57 PM * Patricia Lema, CECI - 02/27/2019 8:50 AM EST Speech Pathology [...] Family/caregiver support Explain Environmental Factors: lives in fpc in [place], mother very supportive - pt stays with [...] Assess for diet tolerance, Re-evaluate diet changes OPERATIONS RESEARCH ANALYST Caregiver Readiness Working toward discharge home: Yes OPERATIONS RESEARCH ANALYST Caregiver Training: Ongoing - Follow up required [...] Male Due to speech therapy recommendations this high school social studies teacher contacted Kayleigh at [place]. Carmela reports that she spoke with Lina at [facility] in speech therapy about patient needs.Carmela states that a speech therapist visits [place] weekly and that she is aware that patient would need to be seen. Patient's step father was informed of need for speech therapy as patient's mother (reported guardian) is not available at this time. Patient's mother is home resting and taking a shower, per step father. Patient Information Primary Caregiver: Other (Comment)([facility] - [phone]) Discharge Planning Living Arrangements: Facility Support Systems: Parent, phlebotomy manager/high school social studies teacher, Other (Comment)(Mother Edison reports that she is guardian.) Assistance Needed: stand by Type of Residence: alf Care Facility Name: ([facility] Prior to Admission Home Care Services: No Patient expects to be discharged to:: [facility]. Mother Edison to transport. Does the patient need discharge transport arranged?: No Current Home Equipment: None, Oxygen Anticipated HME: Undetermined Anticipated Discharge Plan Anticipated HME: Undetermined [facility] Disposition D/C Disposition: Another Health Care Institution Not Defined([facility] Agency/Destination: ([facility]) Transportation Type: Auto(Mother, Edison to transport [phone]) Reason for Choice: Currently with agency * Idalia Sims MD - 02/26/2019 2:01 PM EST Hospital Medicine Inpatient Follow-up 02/26/2019 Idalia Sims MD [facility] Patient: Fahad Bernabe Date of : [...] IMAGING: Reviewed 2:01 PM * Eda Arriaga, OPERATIONS RESEARCH ANALYST - 02/26/2019 10:59 AM EST Speech Pathology [...] Family/caregiver support Explain Environmental Factors: lives in fpc in [place], mother very supportive - pt stays with mother every other weekend Personal Factors: Awareness of own capacity and performance Explain Personal Factors: developmental delays and cognitive deficits, impulsivity Skilled Therapy Needs: dysphagia intervention for pt/caregiver training Recommendations: Provale Cup for volume control, small utensils for bolus portion mgmt OPERATIONS RESEARCH ANALYST Caregiver Readiness Working toward discharge home: Yes OPERATIONS RESEARCH ANALYST Caregiver Training: Ongoing - Follow up required [...] Mcgrath MD - 02/25/2019 1:00 PM EST [facility] Medicine Inpatient Follow-up 02/25/2019 Stuart Mcgrath MD [facility] Patient: Fahad Bernabe Date of : [...] Mcgrath MD - 02/24/2019 8:12 AM EST [facility] Medicine Inpatient Follow-up 02/24/2019 Stuart Mcgrath MD [facility] Patient: Fahad Bernabe Date of : [...] FoundDocuments on File Type Date Recorded Patient Flying Teacher Expl anation Advance Directives and Livin g Will 02/23/2019 3:14 PM Guardianship Papers 02/23/2019 3:14 PM Latest Code Status on File Code Status Date Activated Date Inactivated Comments Full Code - Unverified 02/23/2019 9:21 PM Documents on File Type Date Recorded Patient Flying Teacher Expl anation Advance Directives and Livin g Will 02/23/2019 11:06 PM Guardianship Papers 02/23/2019 3:14 PM Latest Code Status on File Code Status Date Activated Date Inactivated Comments Full Code - Unverified 02/23/2019 9:21 PM Documents on File Type Date Recorded Patient Flying Teacher Expl anation Advance Directives and Livin g Will 02/23/2019 11:06 PM Guardianship Papers 02/23/2019 3:14 PM Documents on File Type Date Recorded Patient Flying Teacher Expl anation Advance Directives and Livin g Will 07/08/2020 11:06 PM Guardianship Papers 02/23/2019 3:14 PM Guardianship Papers 07/08/2020 12:00 AM Documents on File Type Date Recorded Patient Flying Teacher Expl anation Advance Directives and Livin g [...] HOSPITALIST DISCHARGE SUMMARY Patient: Fahad Bernabe Account: [id number] Admitted: 02/23/2019 Discharge Date/Time: 03/01/2019 Clinical Summary [...] for which he is nonadherent. Transferred to [place] for aspiration pneumonia and acute on chronic [...] next recommendation would be for tracheostomy per tricot knitting machine operator Obstructive Sleep Apnea - pt underwent sleep [...] with tracheostomy -Patient to follow-up with his tricot knitting machine operator as an outpatient Acute on Chronic Respiratory [...] Family: Iftikhar Kemp DO, Phone: None, Address: [address] [place] [phone] Follow Up: Iftikhar Kemp DO [address] [place] [phone] Follow up in 1 week(s) Patient instructions, [...] Distal radius fractu re Distal radius fracture Chief Complaint NEW RT DISTAL RADIUS FX S52.509A - Unspecified fracture of the lower end o 2 WEEKS *out of cast* *xray out of cast* PER [place] Reason for Visit Distal radius fractu re Distal radius fracture 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 Distal radius fracture Fracture of distal phalanx of right thumb Chief Complaint NEW RT DISTAL RADIUS FX S52.509A - Unspecified fracture of the lower end o 2 WEEKS S52.509A *xray out of cast* PER [place] Reason for Visit Distal radius fractu re Distal radius fracture 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 Distal radius fracture Fracture of distal phalanx of right thumb Chief Complaint NEW RT DISTAL RADIUS FX S52.509A - Unspecified fracture of the lower end o 2 WEEKS S52.509A *xray out of cast* PER [place] 2-3 WEEKS S62.521A - Displaced fracture of distal phalanx of Reason for Visit Distal radius fractu re Distal radius fracture 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 Distal radius fracture Fracture of distal phalanx of right thumb 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 Distal radius fracture Fracture of distal phalanx of right thumb Chief Complaint NEW RT DISTAL RADIUS FX S52.509A - Unspecified fracture of the lower end o 2 WEEKS S52.509A *xray out of cast* PER [place] 2-3 WEEKS S62.521A - Displaced fracture of distal phalanx of NARINDER/Annual Reason for Visit Distal radius fractu re Distal radius fracture 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 Distal radius fracture Fracture of distal phalanx of right thumb 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 Distal radius fracture Fracture of distal phalanx of right thumb Down syndrome Intolerance to BiPAP/CPAP NARINDER (obstructive sleep apnea) Pulmonary hypertension Chief Complaint S52.509A - Unspecifi ed fracture of the lower end o 2 WEEKS S52.509A *xray out of cast* PER [place] 2-3 WEEKS S62.521A - Displaced fracture of distal phalanx of NARINDER/Annual H mo f/u Pulm HTN, NARINDER Reason for Visit Distal radius fractu re 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 Distal radius fracture Fracture of distal phalanx of right thumb 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 Vss. Reason Comments Toenail Care Non dm nails Reason Comments Toenail Care Non DM nail care Vicki Coleman RN - 02/23/2019 1:36 PM EST ED Notes (unrecognized secti on and content) Per parent report pt was seen yesterday at another ED yesterday and dx with pneumonia and dc with antibiotics. Pt started having trouble staying awake today. documented in this encounter Holden Whiteside MD - 02/23/2019 9:22 PM EST H&P Notes (unrecognized sect ion and content) [facility] Medicine Inpatient H&P 02/23/2019 Holden Whiteside MD [facility] Patient: Fahad Bernabe Date of : 1990 (28 y.o.) PCP: DO Jose Francisco Gallego Fahad Bernabe is a 28 y.o. 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 Patient refuses to wear his CPAP machine for the last year was seen at [facility] emergency department due to cough and for unresponsiveness. Patient was diagnosed yesterday at [facility] emergency department with a pneumonia and [...] for the last year was seen at [facility] emergency department due to cough and for unresponsiveness. Patient was diagnosed yesterday at [facility] emergency department with a pneumonia and was started on antibiotics. Patient is a resident of a [facility] in [place]. His mother went to pick him up [...] Laterality Date CARDIAC SURGERY As an infant No family history on file. Social History [...] PM documented in this encounter Eda Arriaga, OPERATIONS RESEARCH ANALYST - 02/25/2019 10:00 AM EST Procedure Notes (unrecognize d section and content) Procedure(s): OPERATIONS RESEARCH ANALYST MODIFIED BARIUM SWALLOW Pre-Procedure Diagnose(s): Dysphagia, unspecified type Post-Procedure Diagnose(s): Oropharyngeal dysphagia [facility] Speech Language Pathology Modified Barium Swallow [...] Explain Environmental Factors supportive mother, lives in fpc in [facility] lives in fpc in [place], mother very supportive - pt stays with [...] 21 Down syndrome currently a resident of [facility], presenting with hypoxic respiratory failure CO2 narcosis and sleep apnea. Neurology was consulted by the primary team for evaluation of neurological causes of encephalopathy. He lives at the [facility] but is being checked on by his [...] given his improvement. DAMIAN GRIGSBY MSc, . [email or web address] Staff Neurologist & Movement Disorder Specialist [facility] (Adj Asst: Professor, [employer] Dept of Neurology) [id number], [facility] [id number] Clinic (Appointments) Fax: [phone] Attestation: Time statement: A total of 50 minutes were spent on this encounter either in the patient's room or on the patient's hospital unit and over half of that time was spent on [id number] counseling and/or coordination of care. This note was dictated using [employer], a speech-recognition software. Syntax errors and sound-alike substitutions which may escape proofreading could be present. In such instances, the actual meaning can be extrapolated from the context. Associated Order(s): IP CONSULT TO PULMONOLOGY PULMONOLOGY CONSULT 02/26/2019 Patient: Fahad Bernabe Date of : 1990 Site: [facility] Referring Provider: Refer to consult order in electronic medical record Provider: Kathryn Lawrence CNP ASSESSMENT/PLAN: Fahad Bernabe 28 y.o. male with history of Down syndrome, ADHD, Depression, Hypothryoidism, OCD, Seizures, open heart surgery for childhood ASD/VSD, HTN, aspiration pneumonia, obstructive sleep apnea on CPAP for which he is nonadherent. Transferred to [place] for aspiration pneumonia and acute on chronic [...] is a 28 y.o. male presenting from [facility] with complaint of lethargy and was evaluated at [facility] where he was diagnosed with Pneumonia and discharged home with antibiotics. Mother took patient home with her that evening and presents to [facility] ED the following day for worsened lethargy, fever, and cough. B/L interstitial edema noted and patient transferred to [facility] for respiratory failure. Pt with history of [...] December. Patient not able to contribute to QUILEUTE or ROS. Information obtained from mother and [...] tablet 1 tablet 1 tablet Oral Q12H RASHEEDA Idalia Sims MD 1 tablet at 02/26/19 [...] BID Holden Whiteside MD 25 mg at 02/26/19838 cloNIDine HCl (CATAPRES) tablet 0.2 mg 0.2 mg Oral TID Holden Whiteside MD 0.2 mg at 02/26/19838 divalproex (DEPAKOTE ER) 24 hr tablet 1,000 [...] mg 40 mg Subcutaneous BID [facility] famotidine (PEPCID) tablet 20 mg 20 mg Oral Daily Holden Whiteside MD 20 mg at 02/26/19 0838 furosemide (LASIX) injection 20 mg 20 mg Intravenous BID Idalia Sims MD furosemide (LASIX) injection 20 mg 20 mg Intravenous Once Kathryn Lawrence, REGINA gabapentin (NEURONTIN) capsule 100 mg 100 mg [...] Sex: Male Patient Information Primary Caregiver: Other (Comment)([facility] - [phone]) Initial assessment completed with patient's mother, Edison. Patient was present during assessment. Patient's mother Edison reports that she is patient's guardian. This high school social studies teacher requested that Edison bring in a copy of guardianship paperwork for patient's chart. Edison reports that patient resides at [facility], which is a care center for [facility]. Patient does need 24 hour supervision due to flight risk. PING Hendricks is aware and reports that a break away alarm is placed on patient. This high school social studies teacher contacted Pavithra at [facility]. Pavithra reports that patient can return at discharge. Pavithra informed that Edison plans to transport patient when patient is ready for discharge. Pavithra reports that patient was on 2 liters of oxygen at night while at [place]. Pavithra requested discharge paperwork when patient is discharged from the hospital. [place] [phone] FAX [phone]. Discharge Planning Living Arrangements: Facility Support Systems: Parent, phlebotomy manager/high school social studies teacher, Other (Comment)(Mother Edison reports that she is guardian.) Assistance Needed: stand by Type of Residence: alf Care Facility Name: ([facility] Prior to Admission Home Care Services: No Patient expects to be discharged to:: [facility]. Mother Edison to transport. Does the patient need discharge transport arranged?: No Current Home Equipment: None, Oxygen Anticipated HME: Undetermined Anticipated Discharge Plan Anticipated HME: Undetermined [facility] Disposition D/C Disposition: Another Health Care Institution Not Defined([facility] care facility.) Agency/Destination: ([facility]) Transportation Type: Auto(Mother, Edison to transport [phone]) Reason for Choice: Currently with agency Speech Pathology Bedside Swallow Evaluation Recommended Diet: PO Recommendations: Regular, Thin liquid Fahad G Clayton was seen for initial BSE. Pt was [...] Explain Environmental Factors: supportive mother, lives in fpc in [facility] Personal Factors: Awareness of own capacity and performance Explain Personal Factors: premorbid cognitive deficits Skilled Therapy Needs: Anticipate Resolution of Current Assessment Limitations Including: (acute pulmonary deficit) Are Skilled Therapy Services Needed After Discharge: Yes Intensity of Skilled Therapy: (to be determined per MBS) Anticipated Duration of Skilled Therapy: (pending MBS) OPERATIONS RESEARCH ANALYST Caregiver Readiness Working toward discharge home: Yes OPERATIONS RESEARCH ANALYST Caregiver Training: Ongoing - Follow up required [...] PM [facility] - Patricia Lema, OPERATIONS RESEARCH ANALYST - 02/27/2019 2:30 PM EST Miscellaneous Notes [...] Assessment: Pertinent clinical information: Downs Syndrome from [facility] Past Medical History: Diagnosis Date ADHD Bipolar 1 disorder ([facility]) Depression Disease of thyroid gland Down's syndrome [...] Estimated Needs: 1800-2000cal Method for Estimating Needs: [id number],adjbw Total Protein Estimated Needs: 79gms Method for [...] and instructions Outcome: Met Possible discharge to [facility] tomorrow. Problem: Falls, Risk of Goal: Absence [...] discharge order. Care management consulted. Patient from [facility] in [place]. Problem: Pain Goal: Manage acute pain Outcome: [...] Active Thiago Chandler MD Attending Provider Active Duty Manager Relationship Specialty Start Date End Date Iftikhar Kemp DO [address] [place] [address] PCP - General Endocrinology/Metabolism 02/23/19 Team Status: Inactive Member Role Status Dates Iftikhar Kemp DO Primary Care Provider Active Start: May 03, 2023 End: May 03, 2023 Martha Richmond [facility] Attending Provider Active Start: May 03, 2023 End: May 03, 2023 DME Active Start: May [id number] End: May 03, 2023 Duty Manager Relationship Specialty Start Date End Date Iftikhar Kemp DO [address] [place] [phone] PCP - General Family Medicine 05/27/23 Team Status: Inactive Member Role Status Dates Iftikhar Kemp DO Primary Care Provider Active Start: September 07, 2023 End: September 07, 2023 Fahad Echavarria MD Attending Provider Active Star t: September 07, 2023 End: September 07, 2023 Team Status: Active Member Role Status Glenn Echavarria MD Attending Provider Active Star t: [...] 2023 End: September 21, 2023 Team Status: Active Member Role Status Glenn Echavarria MD Attending Provider Active Star t: October 31, 2023 Iftikhar Kemp DO Primary Care Provider Active Start: October 31, 2023 Team Status: Inactive Member Role Status Dates Iftikhar Kemp DO Primary Care Provider Active Start: October 31, 2023 End: October 31, 2023 Fahad Echavarria MD Attending Provider Active Star t: October 31, 2023 End: October 31, 2023 Team Status: Inactive Member Role Status Dates Fahad Echavarria MD Attending Provider Active Star t: October 31, 2023 End: October 31, 2023 Iftikhar Kemp DO Primary Care Provider Active Start: October 31, 2023 End: October 31, 2023 Team Status: Active Member Role Status Glenn Kemp DO Primary Care Provider Active Start: October 22, 2023 End: October 23, 2023 Damaso Reed DO Attending Provider Active Sta rt: October 22, 2023 End: October 23, 2023 Shaikh Emir MD Active Start: 2023 End: October 23, 2023 Team Status: Inactive Member Role Status Glenn Kemp DO Primary Care Provider Active Start: November 21, 2023 End: November 21, 2023 Fahad Echavarria MD Attending Provider Active Star t: November 21, 2023 End: November 21, 2023 Team Status: Active Member Role Status Glenn Echavarria MD Attending Provider Active Star t: November 21, 2023 Iftikhar Kemp DO Primary Care Provider Active Start: November 21, 2023 Team Status: Inactive Member Role Status Dates Fahad Echavarria MD Attending Provider Active Star t: November 21, 2023 End: November 21, 2023 Iftikhar Kemp DO Primary Care Provider Active Start: November 21, 2023 End: November 21, 2023 Team Status: Inactive Member Role Status Dates Iftikhar Kemp DO Primary Care Provider Active Start: December 06, 2023 End: December 06, 2023 Thiago Chandler MD Attending Provider Active S tart: December 06, 2023 End: December 06, 2023 Team Status: Inactive Member Role Status Dates Iftikhar Kemp DO Primary Care Provider Active Start: December 12, 2023 End: December 12, 2023 Martha Richmond APRN [facility] Attending Provider Active Start: December 12, 2023 End: December 12, 2023 Duty Manager Relationship Specialty Start Date End Date Iftikhar Kemp MD [address] [phone] (Work) PCP - General Family Medicine 10/12/23 Iftikhar Kemp MD [address] [phone] (Work) Family Medicine 10/12/23 Duty Manager Relationship Specialty Start Date End Date Iftikhar Kemp MD [address] [phone] (Work) PCP - General Family Medicine 10/12/23 Iftikhar Kemp MD [address] [phone] (Work) Family Medicine 10/12/23 Duty Manager Relationship Specialty Start Date End Date Iftikhar Kemp MD [address] [phone] (Work) PCP - General Family Medicine 10/12/23 Duty Manager Relationship Specialty Start Date End Date Iftikhar Kemp MD [address] [phone] (Work) PCP - General Family Medicine 10/12/23 Duty Manager Relationship Specialty Start Date End Date Iftikhar Kemp MD [address] [phone] (Work) PCP - General Family Medicine 10/12/23 Iftikhar Kemp MD [address] [phone] (Work) Family Medicine 10/12/23 (unrecognized sect ion and content) No Status Records FoundNo Status Records FoundNo Status Records FoundNo Status Records FoundNo Status Records FoundNo Status Records FoundNo Status Records FoundNo Status Records FoundNo Status Records Found INFORMATION SOURCE (unrecogn ized section and content) DATE CREATED AUTHOR 05/28/2021 [facility] DATE CREATED AUTHOR AUTHOR'S ORGANIZ ATION 05/28/2021 [facility] DATE CREATED AUTHOR AUTHOR'S ORGANIZ ATION 06/05/2021 [facility] DATE CREATED AUTHOR AUTHOR'S ORGANIZ ATION 09/28/2021 [facility] DATE CREATED AUTHOR AUTHOR'S ORGANIZ ATION 05/23/2022 [facility] DATE CREATED AUTHOR AUTHOR'S ORGANIZ ATION 06/01/2023 [facility] DATE CREATED AUTHOR AUTHOR'S ORGANIZ ATION 07/14/2023 [facility] DATE CREATED AUTHOR AUTHOR'S ORGANIZ ATION 11/23/2023 [facility] DATE CREATED AUTHOR AUTHOR'S ORGANIZ ATION 03/23/[address] [facility] dical Specialists EPIC Goals (unrecognized section and content) Goals may [...] BE BASED ON THE PRIMARY CLINICAL RECORDS. [employer] [facility]. provides no warranty or guarantee of the accuracy or completeness of information in this document.
[2024-04-23 09:06] LABS: Estimated Average Glucose 91 mg/dL; Glycohemoglobin A1C 4.8 % (4.5-6.2)
[2024-04-23 09:12] LABS: Anion Gap 10.5; BUN Creatinine Ratio 15.2; Calcium 9.3 mg/dL (8.5-10.1); Carbon Dioxide 33.1 mmol/L (21.0-32.0); Chloride 107 mmol/L (98-107); Chol HDL Ratio 2.8; Cholesterol 184 mg/dL (<=200); Estimated GFR (African America >60 (>=60 mL/min/1.73m^2); Estimated GFR (Non-African Ame 57 (>=60 mL/min/1.73m^2); Glucose 86 mg/dL (74-106); HDL Cholesterol 66 mg/dL (40-60); Potassium 4.6 mmol/L (3.5-5.1); Sodium 146 mmol/L (136-145); Triglycerides 136 mg/dL (<=150); VLDL CHOLESTEROL 27.2 mg/dL
[2024-04-23 10:16] LABS: Valproic Acid 61.8 ug/mL (50.0-100.0)
[2024-04-23 13:15] LABS: Basophils Absolute Auto 0.1 10^3/uL (0.0-0.1); Basophils Percent Auto 0.8 % (0.2-2.0); Eosinophils Percent Auto 0.5 % (0.9-7.0); Hematocrit 43.6 % (42.0-54.0); Immature Granulocytes Abs Auto 0.03 10^3/uL (0.00-0.03); Immature Granulocytes Pct Auto 0.3 % (0.0-0.5); Lymphocytes Absolute Auto 2.5 10^3/uL (1.2-3.8); Lymphocytes Percent Auto 28.6 % (20.5-60.0); Mean Corpuscular HGB Conc 32.1 g/dL (29.9-35.2); Mean Corpuscular Volume 105.8 fL (80.0-94.0); Mean Platelet Volume 9.8 fL (9.5-13.5); Monocytes Absolute Auto 0.5 10^3/uL (0.3-0.8); Monocytes Percent Auto 5.7 % (1.7-12.0); Neutrophils Absolute Auto 5.6 10^3/uL (1.4-6.5); Neutrophils Percent Auto 64.1 % (43.0-75.0); Platelet Count 302 10^3/uL (150-450); Red Blood Count 4.12 10^6/uL (4.70-6.10); Red Cell Distribution Width 12.8 % (11.0-15.0); White Blood Count 8.7 10^3/uL (4.0-11.0)
[2024-04-24 08:14] LABS: Carbamazepine(Tegretol),S 8.5 ug/mL (4.0-12.0); Lithium (Eskalith(R)), Serum 0.6 mmol/L (0.5-1.2)
== END 2024-04-23 07:00 | disposition home or self-care (01) ==
LOC: LAB 07:01
PROVIDERS: PCP Family Medicine
DX: F63.81 Intermittent explosive disorder (principal); F90.2 Attention-deficit hyperactivity disorder, combined type; F42.2 Mixed obsessional thoughts and acts; F71 Moderate intellectual disabilities; Z79.899 Other long term (current) drug therapy
CPT/HCPCS: 36415; 80048; 80061; 80156; 80164; 80178; 83036; 85025

== ENCOUNTER 2024-05-14 10:21 | Inpatient (IN) | payer MEDICARE, MEDICAID, SELFPAY ==
[2024-05-14] VITALS (157 sets, daily range): BP systolic 43–150; BP diastolic 22–85; PULSE 13–134; RESP 16; TEMP 37.5–39.5; O2SAT 76–100; BMI 33.4
--- NOTE | 2024-05-14 10:24 | ECG_ITS ---
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 Measurements Intervals [place] Rate: 96 P: -17 ND: 182 QRS: 55 QRSD: 116 T: 43 QT: 352 QTc: 406 Interpretive Statements 1100 Sinus rhythm 2440 Incomplete right bundle branch block 9130 borderline ECG Compared to ECG 10/21/2023 11:24:48 ST (T wave) deviation no longer present Indeterminate axis no longer present Electronically Signed On 05-14-2024 20:15:06 EDT by RUBÉN KNOX M.D.
--- NOTE | 2024-05-14 10:29 | ED.GENADUL1 ---
HPI HPI - General Adult General Chief complaint: Altered Mental Status Stated complaint: ALTERED MENTAL STATUS Time Seen by Provider: 05/14/24 10:23 Source: patient Mode of arrival: ambulance History of Present Illness HPI narrative: 33-year-old male presents to the emergency department for a chief complaint of difficulty breathing and not acting himself. All of the history is obtained from paramedics and caregiver who accompanied him. Apparently over the past 2 days he has not been breathing well. There is no history of fever. He was not up and moving around today so the squad brought him in. No further history is obtainable. Related Data Home Medications ?Medication ?Instructions ?Recorded ?Confirmed acetaminophen 325 mg capsule 650 mg PO Q4H PRN fever or pain 04/08/23 05/14/24 albuterol sulfate 2.5 mg/3 mL 2.5 mg continuous nebulization Q6H 04/08/23 05/14/24 (0.083 %) solution for nebulization PRN shortness of breath or wheezing carbamazepine 200 mg tablet 400 mg PO 0800,199904/08/23 05/14/24 chlorpromazine 10 mg tablet 20 mg PO 0800 04/08/23 05/14/24 chlorpromazine 25 mg tablet 25 mg PO 159904/08/23 05/14/24 chlorpromazine 50 mg tablet 150 mg PO 199904/08/23 05/14/24 clonidine HCl 0.2 mg tablet 0.2 mg PO .0800,1200, 199904/08/23 05/14/24 divalproex 250 mg tablet,delayed 500 mg PO 0804/08/23 10/21/23 release divalproex 500 mg tablet,delayed 500 mg PO 199904/08/23 10/21/23 release famotidine 20 mg tablet 20 mg PO 1200 04/08/23 05/14/24 furosemide 20 mg tablet 20 mg PO BID 04/08/23 05/14/24 gabapentin 100 mg capsule 100 mg PO TID 04/08/23 10/21/23 levothyroxine 150 mcg tablet 150 mcg PO DAILY 04/08/23 05/14/24 lithium carbonate 300 mg capsule 300 mg PO BEDTIME 04/08/23 05/14/24 lorazepam 2 mg tablet 2 mg PO BEDTIME 04/08/23 05/14/24 montelukast 10 mg tablet 10 mg PO 199904/08/23 05/14/24 risperidone 1 mg tablet 1 mg PO TID 04/08/23 05/14/24 sennosides 8.6 mg tablet (senna) 17.2 mg PO BID 04/08/23 05/14/24 vilazodone 20 mg tablet 30 mg PO .morning 04/08/23 05/14/24 vitamin B complex 1 cap PO .qd 04/08/23 05/14/24 benzoyl peroxide 5 % topical 1 applic topical .QHS 05/14/24 05/14/24 cleanser clindamycin phosphate 1 % lotion 1 applic topical QAM 05/14/24 05/14/24 Previous Rx's ?Medication ?Instructions ?Recorded guaifenesin 400 mg tablet (Chest 400 mg PO BID PRN Congestion #0 04/11/23 Congestion Relief) tabs Allergies Allergy/AdvReac Type Severity Reaction Status Date / Time naproxen AdvReac Verified 04/08/23 14:43 Opioid HPI Opioid Management Most Recent Opioid Data: Last Pain Scale 3 10/21/23 20:02 10/21/23 Last ORT Total Score 0 10/21/23 14:56 10/21/23 Last ORT Risk Category Low Risk 10/21/23 14:56 10/21/23 Review of Systems ROS Narrative Not obtainable, psychiatric disorder [facility] Medical History (Updated 05/14/24 @ 14:08 by George Obregon MD) Asthma exacerbation ?J45.901 - Unspecified asthma with (acute) exacerbation (ICD-10) Pneumonia ?J18.9 - Pneumonia, unspecified organism (ICD-10) Pneumonia ?J18.9 - Pneumonia, unspecified organism (ICD-10) COVID-19 ?U07.1 - COVID-19 (ICD-10) NARINEDR (obstructive sleep apnea) ?G47.33 - Obstructive sleep apnea (adult) (pediatric) (ICD-10) Down syndrome ?Q90.9 - Down syndrome, unspecified (ICD-10) Pulmonary hypertension ?I27.20 - Pulmonary hypertension, unspecified (ICD-10) Pickwickian syndrome ?E66.2 - Morbid (severe) obesity with alveolar hypoventilation (ICD-10) Chronic constipation ?K59.09 - Other constipation (ICD-10) Eczema ?L30.9 - Dermatitis, unspecified (ICD-10) Sleep apnea ?G47.30 - Sleep apnea, unspecified (ICD-10) Dyspepsia ?R10.13 - Epigastric pain (ICD-10) Obsessive compulsive disorder ?F42.9 - Obsessive-compulsive disorder, unspecified (ICD-10) Bipolar 1 disorder ?F31.9 - Bipolar disorder, unspecified (ICD-10) Hypothyroid ?E03.9 - Hypothyroidism, unspecified (ICD-10) 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, unspecified (ICD-10) ?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 Smoking status: Unknown if ever smoked Non-prescribed substance use: denies use Gender Identity: male Exam Narrative Exam Narrative: Nurses note and vital signs reviewed and patient is not hypoxic. General: The patient appears in no acute respiratory distress. His eyes are closed Skin: Warm, dry, no pallor noted. There is no rash noted. Head: Normocephalic, atraumatic Eye: Normal conjunctiva, no drainage Ears, Nose, Mouth, and Throat: oral mucosa is moist. Nares patent. Cardiovascular: Regular Rate and Rhythm Respiratory: Breath sounds are equal bilaterally Back: non-tende GI: Soft and nontender Musculoskeletal: The patient has no evidence of calf tenderness, no pitting edema, symmetrical pulses noted bilaterally Neurological: He will scream out and is uncooperative Psychiatric: Uncooperative Constitutional Vital Signs, click to edit/add: Last Vital Signs Temp 99.7 F 05/14/24 13:37 Pulse 97 H 05/14/24 12:20 Resp 29 H 05/14/24 12:20 BP 100/42 L 05/14/24 12:16 Pulse Ox 88 L 05/14/24 12:50 O2 Del Method Nasal Cannula 05/14/24 12:50 O2 Flow Rate 3 05/14/24 12:50 Course Vital Signs Vital signs: Vital Signs Pulse Rate 97 H 05/14/24 10:24 Respiratory Rate 24 H 05/14/24 10:24 Blood Pressure 85/39 L 05/14/24 10:24 Pulse Oximetry 86 L 05/14/24 10:24 Oxygen Delivery Method Room Air 05/14/24 10:24 Temperature 99.7 F 05/14/24 13:37 Pulse Rate 97 H 05/14/24 12:20 Respiratory Rate 29 H 05/14/24 12:20 Blood Pressure 100/42 L 05/14/24 12:16 Pulse Oximetry 88 L 05/14/24 12:50 Oxygen Delivery Method Nasal Cannula 05/14/24 12:50 Oxygen Delivery Flow Rate 3 05/14/24 12:50 Medical Decision Making [facility] Narrative Medical decision making narrative: Multifocal pneumonia is identified. He had a fever upon presentation. He was also hypoxemic but this has improved with IV fluids and oxygen and suctioning. Blood pressure was low initially but is trending upwards and he was given more than 30 mL/kg of IV fluids. Initial lactic acid was mildly elevated at 3.6 with repeat pending. Influenza and COVID are negative. Findings are discussed thoroughly with his mother and his caregiver and he is going to be admitted. Blood cultures were obtained and he was given IV Rocephin and Zithromax. Differential Diagnosis Differential Diagnosis: Pneumonia, influenza, COVID, sepsis Lab Data Lab results reviewed: Yes I reviewed the patient's lab results Labs: Lab Results 05/14/24 05/14/24 05/14/24 Range/Units 10:48 10:54 11:02 WBC 14.5 H (4.0-11.0) 10^3/uL RBC 3.67 L (4.70-6.10) 10^6/uL Hgb 12.6 L (14.0-18.0) g/dL Hct 38.7 L (42.0-54.0) % MCV 105.4 H (80.0-94.0) fL MCH 34.3 H (25.9-34.0) pg MCHC 32.6 (29.9-35.2) g/dL RDW 13.2 (11.0-15.0) % Plt Count 197 (150-450) 10^3/uL MPV 9.7 (9.5-13.5) fL Neut % (Auto) 81.5 H (43.0-75.0) % Lymph % (Auto) 9.6 L (20.5-60.0) % [place] % (Auto) 7.9 (1.7-12.0) % Eos % (Auto) 0.0 L (0.9-7.0) % Baso % (Auto) 0.2 (0.2-2.0) % Neut # (Auto) 11.8 H (1.4-6.5) 10^3/uL Lymph # (Auto) 1.4 (1.2-3.8) 10^3/uL [place] # (Auto) 1.1 H (0.3-0.8) 10^3/uL Eos # (Auto) 0.0 (0.0-0.7) 10^3/uL Baso # (Auto) 0.0 (0.0-0.1) 10^3/uL Abs Immat Gran (auto) 0.11 H (0.00-0.03) 10^3/uL Imm/Tot Granulo (auto) 0.8 H (0.0-0.5) % Sodium 145 (136-145) mmol/L Potassium 3.8 (3.5-5.1) mmol/L Chloride 106 (98-107) mmol/L Carbon Dioxide 30.1 (21.0-32.0) mmol/L Anion Gap 12.7 BUN 19.0 H (7.0-18.0) mg/dL Creatinine 2.21 H (0.70-1.30) mg/dL Est GFR ( Amer) 42 L (>=60 mL/min/1.73m^2) Est GFR (Non-Af Amer) 35 L (>=60 mL/min/1.73m^2) BUN/Creatinine Ratio 8.6 Glucose 106 (74-106) mg/dL Lactate 3.6 H* (0.4-2.0) mmol/L Calcium 9.0 (8.5-10.1) mg/dL Urine Color Dk yellow (YELLOW) Urine Clarity Clear (CLEAR) Urine pH 6.0 (5.0-9.0) Ur Specific [place] 1.015 (1.005-1.025) Urine Protein 100 A (NEG/TRACE) mg/dL Urine Glucose (UA) Negative (NEGATIVE) mg/dL Urine Ketones Negative (NEGATIVE) mg/dL Urine Occult Blood Negative (NEGATIVE) Urine Nitrite Negative (NEGATIVE) Urine Bilirubin Negative (NEGATIVE) Urine Urobilinogen 0.2 (0.2-1.0) EU/dL Ur Leukocyte Esterase Negative (NEGATIVE) Urine RBC 0-2 (0-2) #/HPF Urine WBC 0-2 A (NONE SEEN) #/HPF Ur Squamous Epith Cells Rare (NONE/RARE) #/LPF Urine Crystals Seen A (None Seen) #/HPF Amorphous Sediment Moderate Urine Bacteria None seen (NONE SEEN) #/HPF Urine Casts Seen A (NONE SEEN) #/LPF Coarse Granular Casts Few Urine Mucus None seen (NONE SEEN) Ur Culture Indicated? No Influenza Type A Ag Negative Influenza Type B Ag Negative SARS-CoV-2 Ag (CV2AG) Negative (NEGATIVE) Imaging Data Chest x-ray: Radiologist's impression: Extensive bilateral infiltrates. Findings likely related to multifocal pneumonia. ECG Data Attestation: I personally reviewed and interpreted this ECG as follows: (EKG on my interpretation shows sinus rhythm with a rate of 96) Critical Care Time Critical Care Time Critical Care Time: Yes Total Critical Care Time: 50 Attestation: Due to the high probability of sudden and clinically significant deterioration in the patient's condition he/she required the highest level of my preparedness to intervene urgently I provided critical care time including documentation time, medication orders and management, reevaluation, vital sign assessment, ordering and reviewing of lab tests, ordering and reviewing of x-ray studies, and admission orders. Aggregate critical care time is 50 minutes including only time during which I was engaged in work directly related to his/her care and did not include time spent treating other patients simultaneously. Discharge Plan Discharge Chief Complaint: Altered Mental Status Clinical Impression: Pneumonia, Sepsis, Hypoxemia Patient Disposition: Admitted As Inpatient Time of Disposition Decision: 14:07 Condition: Fair
[2024-05-14] MEDS: 0.9 % SODIUM CHLORIDE 1,000 ML 1000 ML IV ×3 (10:48→15:10)
[2024-05-14] MEDS: ACETAMINOPHEN 650 MG RECTAL SUPPOSITORY PR ×3 (10:49→21:57)
[2024-05-14] MEDS: CEFTRIAXONE 1,000 MG in 0.9 % SODIUM CHLORIDE 50 ML 100 MG IV (11:04)
[2024-05-14 11:10] LABS: Basophils Percent Auto 0.2 % (0.2-2.0); Hematocrit 38.7 % (42.0-54.0); Hemoglobin 12.6 g/dL (14.0-18.0); Immature Granulocytes Abs Auto 0.11 10^3/uL (0.00-0.03); Immature Granulocytes Pct Auto 0.8 % (0.0-0.5); Lymphocytes Absolute Auto 1.4 10^3/uL (1.2-3.8); Lymphocytes Percent Auto 9.6 % (20.5-60.0); Mean Corpuscular HGB Conc 32.6 g/dL (29.9-35.2); Mean Corpuscular Hemoglobin 34.3 pg (25.9-34.0); Mean Corpuscular Volume 105.4 fL (80.0-94.0); Mean Platelet Volume 9.7 fL (9.5-13.5); Monocytes Absolute Auto 1.1 10^3/uL (0.3-0.8); Monocytes Percent Auto 7.9 % (1.7-12.0); Neutrophils Absolute Auto 11.8 10^3/uL (1.4-6.5); Neutrophils Percent Auto 81.5 % (43.0-75.0); Platelet Count 197 10^3/uL (150-450); Red Blood Count 3.67 10^6/uL (4.70-6.10); Red Cell Distribution Width 13.2 % (11.0-15.0); White Blood Count 14.5 10^3/uL (4.0-11.0)
[2024-05-14 11:20] LABS: Influenza Virus A Antigen Negative; Influenza Virus B Antigen Negative; Internal Control Within Normal Limits; SARS-CoV-2 Ag NEGATIVE (NEGATIVE)
[2024-05-14 11:23] LABS: Bilirubin Urine NEGATIVE (NEGATIVE); Blood Urine NEGATIVE (NEGATIVE); Clarity Urine CLEAR (CLEAR); Glucose Urine UA NEGATIVE (NEGATIVE); Ketones Urine NEGATIVE (NEGATIVE); Leukocyte Esterase Urine NEGATIVE (NEGATIVE); Nitrite Urine NEGATIVE (NEGATIVE); Protein Urine 100 mg/dL (NEG/TRACE); Specific Gravity Urine 1.015 (1.005-1.025); Urobilinogen Urine 0.2 EU/dL (0.2-1.0)
[2024-05-14 11:25] LABS: Anion Gap 12.7; BUN Creatinine Ratio 8.6; Carbon Dioxide 30.1 mmol/L (21.0-32.0); Chloride 106 mmol/L (98-107); Estimated GFR (African America 42 (>=60 mL/min/1.73m^2); Estimated GFR (Non-African Ame 35 (>=60 mL/min/1.73m^2); Glucose 106 mg/dL (74-106); Potassium 3.8 mmol/L (3.5-5.1); Sodium 145 mmol/L (136-145)
[2024-05-14 11:35] LABS: Color Urine DK YELLOW (YELLOW)
[2024-05-14] MEDS: AZITHROMYCIN 500 MG in 0.9 % SODIUM CHLORIDE 250 ML 250 MG IV (11:36)
--- OUTSIDE RECORDS SUMMARY | 2024-05-14 11:44 | XMS_ITS | CCD ---
Author Organization [facility] Care Team Providers Care Strategy Execution Consultant Name Role Phone Unavailable Unavailable Unavailable Kemp, Iftikhar A Primary Care Provider Unavaila ble Kemp, Iftikhar A Primary Care Provider Kemp DOIftikhar A Primary Care Provider [phone] FRANCK CARBALLO Attending Unavailab le KEMP, IFTIKHAR [...] Admitting Unavailab FRANCK Kauffman Attending Unavailab le KEMP, IFTIKHAR A Primary Care Unavailable Unavailable Primary Care Provider Unavailabl e Thiago Chandler Unavailable KempDO Buitrago A Primary Care Provider MD Thiago Chandler Attending Provider [phone] Unavailable Primary Care Provider Unavailabl e PROVIDER, UNKNOWN Admitting Unavailable PROVIDER, UNKNOWN Attending Unavailable PROVIDER, UNKNOWN Admitting Unavailable PROVIDER, UNKNOWN Attending Unavailable Kemp, DO Iftikhar A Primary Care Provider [phone] Martha Richmond Unavailable Kemp, DO Iftikhar A Primary Care Provider [phone] MD Thiago Chandler Attending Provider KempDO Iftikhar patrick A Primary Care Provider MD Thiago Chandler Attending Provider [phone] DAVID, DR IFTIKHAR Otto Admitting Unavailable KEMP, [...] Primary Care Unavailable LIBAN OTERO Attending Unavailable MD Fahad Echavarria Attending Provider DO Iftikhar Kemp Primary Care Provider [phone] Thiago Chandler Admitting Unavailable Thiago Chandler Attending Unavailable KempIftikhar Primary Care Unavailable Olexa, Fahad Admitting Unavailable Olexa, Fahad Attending Unavailable KempIftikhar Primary Care Unavailable Olexa, Fahad Admitting Unavailable Olexa, Fahad Attending Unavailable KempIftikhar Primary Care Unavailable Olexa, Fahad Admitting Unavailable Olexa, Fahad Attending Unavailable KempIftikhar Primary Care Unavailable KempDO Iftikhar Primary Care Provider Iftikhar Kemp MD Primary Care Provider Iftikhar Kemp MD Unavailable WYATT LEY Attending Unavailable WYATT LEY Attending Unavailable WYATT LEY Attending Unavailable KEMPIFTIKHAR Attending Unavailable KEMP, IFTIKHAR Attending Unavailable KEMP, IFTIKHAR Admitting Unavailable KEMP, IFTIKHAR Referring Unavailable KEMP, IFTIKHAR Attending Unavailable KEMPIFTIKHAR Admitting Unavailable KEMP, IFTIKHAR Attending Unavailable KEMP, IFTIKHAR Admitting Unavailable KEMP, IFTIKHAR Referring Unavailable KEMP, IFTIKHAR Attending Unavailable KEMPIFTIKHAR Admitting Unavailable Allergies Allergy Classification Reported Allergen(s) Allergy Type Date of Onset Reaction(s) Facility NSAIDs (1 source) Naproxen Drug Allergy [address] [facility] (20 sources) Naproxen; Translations: [NAPROXEN] Drug Allergy 8 [facility] Work Phone: (14 sources) Seasonal allergy Propensity to adverse reactions 3 Unknown, Unknown Reaction [facility] (1 source) Naproxen Drug Allergy [facility] (5 sources) Non-steroidal anti-inflammato ry agent; Translations: [NSAIDs] Drug allergy [facility] (5 sources) Salicylic Acid; Translations: [salicylates] Drug Allergy [facility] (1 source) Naproxen Drug Allergy 0 [facility] Repository Medications Current Medications Medication [...] daily. Active take 1 capsule by mo uth every [...] THORAZINE Active take 1 tablet by moira once daily chlorproMAZINE (Thorazine) 25 MG tablet [...] Active 0 .Route April 25, 2023 12:00am Cl[employer] Start: 04-25-2023 Cpap (Continuo us Positive Airway Pressure) Active 0 .ROUTE April 25, 2023 12:00am [employer] CPAP Machine (4 sources) CPAP Machine aut [...] 2019 10:10am take 1 capsule by mo [facility] every twenty-four hours Gabapentin 100 MG [...] take 1 capsule by mouth once daily [employer] Carbonate Active 300 MG PO Daily April 25, 2023 12:00am FreeTextSi capsule Orally Once a day; Note: Source Status: Taking; Provider: Ramesh Das ( ) Start: 02-23-2019 End: 03-01-2019 take 300 mg by mouth once daily 300 mg, Oral, Nightly, First dose on 02/23/19 at 2230 Start: 12-31-2018 End: 02-22-2019 take 300 mg by mouth once daily at bedtime [employer] Carbonate Discontinued 300 MG PO Daily at [...] 0 Active lorazepam 1 mg sublingual tablet (4 sources) Start: 11-05-2010 lorazepam 1 mg sublingual tablet Refills(s) 0 Start Date: 11/05/10 Status: Ordered Minocycline (4 sources) Tetracycline-class Drug Start: 11-05-2010 minocycline Oral, [...] 2018 1:00am February 22, 2019 10:11am Zyprexa (4 sources) Atypical Antipsychotic Start: 11-05-2010 Zyprexa Refills(s) 0 Start Date: 11/05/10 Status: Ordered olopatadine (4 sources) Histamine-1 Receptor Inhibitor Start: 11-05-2010 take 1 mL into the eye(s) twice daily Patanol Eye-Both, BID, mL, Refill(s) 0 Start Date: 11/05/10 Status: Ordered Oxygen (10 sources) Start: 04-25-2023 Oxygen Active 0 .Route April 25, 2023 12:00am 3 liters [employer] Start: 04-25-2023 Oxygen Active 0 .ROUTE April 25, 2023 12:00am 3 liters Clipsure Oxygen 3 liters (4 sources) Oxygen 3 [...] Twice daily December 31, 2018 1:00am sennosides, intermediate 8.6 mg oral tablet (1 [...] 12-31-2018 End: 02-22-2019 Biscolax Discontinued 10 MG NM Daily December 31, 2018 4:21pm February 22, 2019 10:10am Start: 12-31-2018 End: 02-22-2019 Biscolax Discontinued 10 MG NM Daily December 31, 2018 12:00am February 22, 2019 9:10am Start: 12-31-2018 End: 02-22-2019 Biscolax Discontinued 10 MG NM Daily December 31, 2018 1:00am February 22, 2019 10:10am cefTRIAXone 1000 mg injection (1 source) Cephalosporin Antibacterial Start: 02-23-2019 End: 02-26-2019 take 1000 mg intravenous route every twenty-four hours 1,000 mg, Intravenous, at 100 mL/hr, Every 24 hours, First dose on 02/23/19 at 2300 Indication: CAP (ICU) docusate sodium 100 mg oral capsule (7 sources) Start: 01-06-2018 take 100 mg by [...] MIXTURE given to patient. polyethylene glycol 3350 08980 mg powder for oral solution (5 sources) Osmotic Laxative Start: 02-26-2019 End: 03-01-2019 [...] 10-31-2023 Chronic Other aftercare (4 sources) Other [facility] (current) drug therapy; Translations: [OTH LONGTERM CURRENT DRUG THERAPY] Onset: 3 Episodic Other [...] Name Value Interpretation Reference Range Facility XR Adult Swallowing Function w/ Videoon 04-24-2024 XR Adult Swallowing Function w/ Video Exam Date/Time: 04/24/2024 09:29 EDT Reason for Exam: R13.10 Report IMPRESSION: ABNORMAL MODIFIED BARIUM SWALLOW, WITH MILD SILENT TRACHEAL ASPIRATION OBSERVED WITH THIN BARIUM LIQUID. A FULL REPORT WILL BE MADE BY THE SPEECH PATHOLOGY TEAM. EXAM: XR Adult Swallowing Function w/ Video DATE: 04/24/2024 8:42 AM CLINICAL HISTORY: R13.10. COMPARISON: 07/04/2023 TECHNIQUE: Lateral videofluoroscopy was provided during speech therapy evaluation during ingestion of various barium liquids and semisolids. FINDINGS: Oral and pharyngeal phases are within functional limits. Mild tracheal aspiration is observed with thin barium liquid, without cough response. There is no other tracheal aspiration or significant residual collections observed with other consistencies. A full report will be made by the speech pathology team. Ka,r in mGy = 11.00 DAP = 256.95 DAP (\XB5\Gy*m\XB2\) Ordering Provider: IFTIKHAR KEMP FINAL REPORT Dictated: 04/24/2024 10:54 am David Berry MD Signed (Electronic Signature): 04/24/2024 10:54 am Signed by: David Berry MD Transcribed by: MARYBETH Technologist: ESTEPHANIA Gallegos [facility] XR hand RT min 3V*on 024 XR hand RT min 3V* [facility] [place] [address] XRay Report Signed Patient: Fahad Bernabe MR#: [id number] : 1990 Acct:[id number] Age/Sex: 33 / M ADM Date: 11/21/23 Loc: [facility] Room: Type: REG CLI Attending Dr: Fahad Echavarria MD Copies to: [...] Franck Fink M.D.11/21/2023 10:51 AM Dictation Location: [place] [address] Transcribed By: [facility] 11/21/23 1051 Dictated By: Franck Fink DO 11/21/23 1049 Signed By: 11/21/23 1051 Normal [facility] XR wrist RT min 3V*on 2023 XR wrist RT min 3V* [facility] [place] [address] XRay Report Signed Patient: Fahad Bernabe MR#: [id number] : 1990 Acct:[id number] Age/Sex: 33 / M ADM Date: 10/31/23 Loc: [facility] Room: Type: REG CLI Attending Dr: Fahad Echavarria MD Copies to: [...] Kristal Reyes M.D.10/31/2023 3:30 PM Dictation Location: [facility] Transcribed By: [facility] 10/31/23 1530 Dictated By: Kristal Reyes MD 10/31/23 1526 Signed By: 10/31/23 1530 Normal [facility] XR wrist RT 2Von 09-21-2023 XR wrist RT 2V [facility] [address] [place] [address] XRay Report Signed Patient: Fahad Bernabe MR#: [id number] : 1990 Acct:[id number] Age/Sex: 33 / M ADM Date: 09/21/23 Loc: [facility] Room: Type: REG CLI Attending Dr: Fahad Echavarria MD Copies to: [...] Kristal Reyes M.D.09/21/2023 3:45 PM Dictation Location: [place] [address] Transcribed By: [facility] 09/21/23 1545 Dictated By: Kristal Reyes MD 09/21/23 1542 Signed By: 09/21/23 1545 Normal [facility] Physician Orderon 07-13-2023 Physician Order [id number] 364#1.00TIFF Normal [facility] Consent for Treatmenton 06-14 Consent for Treatment [id number] 8#1.00TIFF Normal [facility] Consent for Treatment [id number] 1A#1.00TIFF [facility] Physician Orderon 07-04-2023 Physician Order [id number] 6#1.00TIFF [facility] XR Adult Swallowing Function w/ Videoon [...] mGy = 5.70 DAP = 134.69 Normal [facility] Physician Orderon 06-06-2023 Physician Order [id number] DA#1.00TIFF Normal [facility] CBCon 05-27-2023 ABSOLUTE BAS 0.1 10*3/uL Normal 0.0-0.2 [facility] Comment on above: Result Comment: Test ing performed at [place] [address] Performed By: #### A CBC, CHEM7F #### [place] [address] ABSOLUTE EOS 0.1 10*3/uL Normal 0.0-0.7 [facility] Comment on above: Performed By: #### A CBC, CHEM7F #### [place] [address] ABSOLUTE NEUTROPHIL COUNT 4.0 10*3/uL Normal 1.4-6.5 [facility] Comment on above: Performed By: #### A CBC, CHEM7F #### [place] [address] Basophils/100 WBC (Bld) 1.0 % Normal 0.0-2.[address] [facility] Comment on above: Performed By: #### A CBC, CHEM7F #### [place] [address] DTYPE AUTO DIFF Normal [facility] Comment on above: Performed By: #### A CBC, CHEM7F #### Testing performed at [address] [address] Eosinophils/100 WBC (Bld) 0.8 % Normal 0.0-11.0 [facility] Comment on above: Performed By: #### A CBC, CHEM7F #### Testing performed at [address] [address] Lymphocytes (Bld) [#/Vol] 2.0 10*3/uL Normal 1.2-3.4 [facility] Comment on above: Performed By: #### A CBC, CHEM7F #### Testing performed at [address] [address] Lymphocytes/100 WBC (Bld) 29.5 % Normal 20.0-55.0 [facility] Comment on above: Performed By: #### A CBC, CHEM7F #### Testing performed at [address] [address] Monocytes (Bld) [#/Vol] 0.5 10*3/uL Normal 0.0-0.7 [facility] Comment on above: Performed By: #### A CBC, CHEM7F #### Testing performed at [address] [address] Monocytes/100 WBC (Bld) 8.2 % Normal 0.0-10.[address] [facility] Comment on above: Performed By: #### A CBC, CHEM7F #### Testing performed at [address] [address] Neutrophils/100 WBC (Bld) 60.5 % Normal 37.0-75.0 [facility] Comment on above: Performed By: #### A CBC, CHEM7F #### Testing performed at [address] [address] Erythrocyte distribution width (RBC) [Ratio] 14.6 % High 11.5-14.5 [facility] Comment on above: Performed By: #### A CBC, CHEM7F #### Testing performed at [address] [address] Hematocrit (Bld) [Volume fraction] 40.2 % Low 42.0-52.0 [facility] Comment on above: Performed By: #### A CBC, CHEM7F #### Testing performed at [address] [address] Hemoglobin (Bld) [Mass/Vol] 13.1 g/dL Low 14.0-18.0 [facility] Comment on above: Performed By: #### A CBC, CHEM7F #### Testing performed at [place] [id number] MCH (RBC) [Entitic mass] 33.5 pg Normal 26.0-35.0 [facility] Comment on above: Performed By: #### A CBC, CHEM7F #### Testing performed at [place] [id number] MCHC (RBC) [Mass/Vol] 32.7 g/dL Normal 27.0-37.0 [facility] Comment on above: Performed By: #### A CBC, CHEM7F #### Testing performed at [place] [id number] MCV (RBC) [Entitic vol] 102.5 fL High 80.0-100.[address] [facility] Comment on above: Performed By: #### A CBC, CHEM7F #### Testing performed at [place] [id number] Platelet mean volume (Bld) [Entitic vol] 7.0 fL Low 7.4-11.0 [facility] Comment on above: Performed By: #### A CBC, CHEM7F #### Testing performed at [place] [id number] Platelets (Bld) [#/Vol] 280 10*3/uL Normal 130-400 [facility] Comment on above: Performed By: #### A CBC, CHEM7F #### Testing performed at [place] [id number] RBC (Bld) [#/Vol] 3.92 10*6/uL Low 4.0-6.1 [facility] Comment on above: Performed By: #### A CBC, CHEM7F #### Testing performed at [address] [address] WBC (Bld) [#/Vol] 6.7 10*3/uL Normal 3.6-11.0 [facility] Comment on above: Performed By: #### A CBC, CHEM7F #### Testing performed at [address] [address] CBC, EDIF, PLATELETon 2023 ABSOLUTE BASOPHIL COUNT 0.1 10*3/uL 0.0 - 0.2 10*3/uL [facility] Comment on above: Testing performed at [place], [place] [address] Basophils/100 WBC (Bld) 1.0 % 0.0 - 2.0 % [facility] Differential cell count method Nom (Bld) AUTO DIFF % [facility] Eosinophils (Bld) [#/Vol] 0.1 10*3/uL 0.0 - 0.7 10*3/uL [facility] Eosinophils/100 WBC (Bld) 0.8 % 0.0 - 11.0 % [facility] Erythrocyte distribution width (RBC) [Ratio] 14.6 % High 11.5 - 14.5 % [facility] Hematocrit (Bld) [Volume fraction] 40.2 % Low 42.0 - 52.0 % [facility] Hemoglobin (Bld) [Mass/Vol] 13.1 g/dL Low [facility] Interpretation and review of laboratory results Abnormal [facility] Lymphocytes (Bld) [#/Vol] 2.0 10*3/uL 1.2 - 3.4 10*3/uL [facility] Lymphocytes/100 WBC (Bld) 29.5 % 20.0 - 55.0 % [facility] MCH (RBC) [Entitic mass] 33.5 pg 26.0 - 35.0 PG [facility] MCHC (RBC) [Mass/Vol] 32.7 g/dL [facility] MCV (RBC) [Entitic vol] 102.5 fL High A [facility] Monocytes (Bld) [#/Vol] 0.5 10*3/uL 0.0 - 0.7 10*3/uL [facility] Monocytes/100 WBC (Bld) 8.2 % 0.0 - 10.0 % [facility] Neutrophils (Bld) [#/Vol] 4.0 10*3/uL 1.4 - 6.5 10*3/uL [facility] Neutrophils/100 WBC (Bld) 60.5 % 37.0 - 75.0 % [facility] Platelet mean volume (Bld) [Entitic vol] 7.0 fL Low [facility] Platelets (Bld) [#/Vol] 280 10*3/uL 130 - 400 10*3/uL [facility] RBC (Bld) [#/Vol] 3.92 10*6/uL Low 4.0 - 6.1 10*6/uL [facility] WBC (Bld) [#/Vol] 6.7 10*3/uL 3.6 - 11.0 10*3/uL [facility] CHEM 7 FASTINGon 05-27-2023 Chloride [Moles/Vol] 106 mmol/L Normal 98-107 [facility] Comment on above: Result Comment: Chayo garner note: Triglyceride levels of 600mg/dL or higher may positively bias chloride results by approximately 2.1 mmol Performed By: #### A CBC, CHEM7F #### [place] [address] CO2 [Moles/Vol] 28 mmol/L Normal 22-30 [facility] Comment on above: Performed By: #### A CBC, CHEM7F #### [place] [address] Creatinine [Mass/Vol] 1.30 mg/dL High 0.7-1.2 [facility] Comment on above: Performed By: #### A CBC, CHEM7F #### [place] [address] EST. GFR, 83 ml/min/1.73sq.m Normal [facility] Comment on above: Performed By: #### A CBC, CHEM7F #### Testing performed at [place] [id number] EST. GFR,Non 69 ml/min/1.73sq.m Normal [facility] Comment on above: Performed By: #### A CBC, CHEM7F #### [place] [address] GFR Information Average GFR for 30-39 years old = 107. Normal [facility] Comment on above: Result Comment: Limnologist maye Kidney disease, GFR = <60. Kidney failure, GFR = <15. The GFR estimate is not adjusted for extreme body surface area or acute process, nor has it been validated for women or ethnic groups other than and . Testing performed at [place] [address] Performed By: #### A CBC, CHEM7F #### [place] [address] Glucose [Mass/Vol] 110 mg/dL High 70-100 [facility] Comment on above: Result Comment: NORMAL <100 mg/dL PREDIABETES 101-126 mg/dL DIABETES 126 mg/dL or higher Performed By: #### A CBC, CHEM7F #### [place] [address] Potassium [Moles/Vol] 3.8 mmol/L Normal 3.5-5.1 [facility] Comment on above: Performed By: #### A CBC, CHEM7F #### [place] [address] Sodium [Moles/Vol] 144 mmol/L Normal 137-145 [facility] Comment on above: Performed By: #### A CBC, CHEM7F #### [place] [address] Urea nitrogen [Mass/Vol] 19 mg/dL Normal 7-20 [facility] Comment on above: Performed By: #### A CBC, CHEM7F #### [place] [address] CHEM 7 (LYTES,BUN,CREA,GLUC) on 05-27-2023 Chloride [Moles/Vol] 106 mmol/L [facility] Comment on above: Please note: Triglyc eride levels of 600mg/dL or higher may positively bias chloride results by approximately 2.1 mmol CO2 [Moles/Vol] 28 mmol/L [facility] Creatinine [Mass/Vol] 1.30 mg/dL High [facility] GFR COMMENT Average GFR for 30-39 years old = 107. [facility] Comment on above: Chronic Kidney disea se, GFR = <60. Kidney failure, GFR = <15. The GFR estimate is not adjusted for extreme body surface area or acute process, nor has it been validated for women or ethnic groups other than and . Testing performed at [place], [place] [address] GFR/1.73 sq M.predicted among blacks MDRD (S/P/Bld) [Vol rate/Area] 83 mL/min/{1.73_m2} ml/min/1.73sq. m [facility] GFR/1.73 sq M.predicted among non-blacks MDRD (S/P/Bld) [Vol rate/Area] 69 mL/min/{1.73_m2} ml/min/1.73sq. m [facility] Glucose post fast [Mass/Vol] 110 mg/dL [facility] Comment on above: NORMAL <100 mg/dL PREDIABETES 101-126 mg/dL DIABETES 126 mg/dL or higher Interpretation and review of laboratory results Abnormal [facility] Potassium [Moles/Vol] 3.8 mmol/L [facility] Sodium [Moles/Vol] 144 mmol/L [facility] Urea nitrogen [Mass/Vol] 19 mg/dL [facility] Portable XR Chest Viewson IMPRESSION: [...] contours appear unremarkable. IMPRESSION IMPRESSION: Unremarkable chest. [facility] Radiology Study observation (narrative) [facility] Portable XR Chest ViewsOrder ed By: Terrell Márquez on 05-27-2023 [facility] Work Phone: XR CHEST 1 VIEW PORTABLEon [...] contours appear unremarkable. IMPRESSION: Unremarkable chest. Normal [facility] Lithiumon 05-12-2023 [employer] [Moles/Vol] 0.4 mmol/L Low 0.5-1.2 [facility] Comment on above: Result Comment: A co ncentration of 0.5-0.8 mmol/L is advised for long-term use; concentrations of up to 1.2 mmol/L may be necessary during acute treatment. Detection Limit = 0.1 <0.1 indicates None Detected Performed at: [facility] [id number] PhD Shaka Oleary Performed By: #### 2 426590, 2349704, [id number], 7490246, 2610574, 6817859, 8659770, 4068030, 4549113, 6558478 ####[facility] [id number] [place] [address] T3 Freeon 05-12-2023 Free T3 [Mass/Vol] 2.5 pg/mL Invalid Interpretation Code 2.0-4.4 [facility] Comment on above: Result Comment: Perf ormed at: [employer] [address] [place] [id number] PhD Shaka Oleary Performed By: #### 2 569482, 8063049, 29938357, 6939974, 3881925, 1528188, 3272548, 8637840, 2146511, 2805086 ####[facility] [address] [place] [address] CBC w/IndicesOrdered By: [employer] on 05-10-2023 Erythrocyte distribution width (RBC) [Ratio] 14.9 % High 10.9-14.2 [facility] Comment on above: Performed By: #### 2 598166, 5222990, 97232935, 8099818, 3996550, 4659611, 3391798, 8260544, 1624922, 7129760 #### [facility] [address] [place] [address] Hematocrit (Bld) [Volume fraction] 42.4 % Normal 37.7-49.0 [facility] Comment on above: Performed By: #### 2 215253, 4228840, 11540169, 0032084, 7301928, 3127293, 9395831, 1582492, 9588684, 9323880 #### [facility] [address] [place] [address] Hemoglobin (Bld) [Mass/Vol] 13.5 g/dL Normal 13.5-17.5 [facility] Comment on above: Performed By: #### 2 075328, 2947859, 84763661, 4417960, 5337686, 3097592, 1805009, 7136421, 6414924, 6866443 #### [facility] [address] [place] [address] MCH (RBC) [Entitic mass] 33.4 pg Normal 27.0-34.0 [facility] Comment on above: Performed By: #### 2 694978, 8858287, 94311718, 1447381, 6485995, 7149622, 5844996, 6453366, 7454952, 1150223 #### [facility] [address] [place] [address] MCHC (RBC) [Mass/Vol] 31.9 g/dL Normal 31.4-36.0 [facility] Comment on above: Performed By: #### 2 767178, 9720086, 03554014, 9443934, 0180314, 3432514, 0488537, 2878679, 6814797, 0158067 #### [facility] [address] [place] [address] MCV (RBC) [Entitic vol] 104.9 fL High 80.0-100.0 [facility] Comment on above: Performed By: #### 2 831589, 0618927, 05474159, 0351317, 2036336, 5023199, 8128320, 5695646, 3697447, 0605716 #### [facility] [address] [place] [address] Platelet mean volume (Bld) [Entitic vol] 7.7 fL Normal 6.4-10.8 [facility] Comment on above: Performed By: #### 2 630531, 6726034, 54625089, 1059466, 6937532, 1420374, 6480747, 1911282, 4702667, 7181057 #### [facility] [address] [place] [address] Platelets (Bld) [#/Vol] 359.0 E9/L Normal 150.0-500.0 [facility] Comment on above: Performed By: #### 2 784886, 9866692, 71220936, 8230160, 5844748, 5774645, 5589917, 5323138, 9684259, 1938818 #### [facility] [address] [place] [address] RBC (Bld) [#/Vol] 4.0 E12/L Low 4.3-5.9 [facility] Comment on above: Performed By: #### 2 061850, 1619556, 55019382, 0376026, 0855563, 1698694, 0071803, 6862841, 1552562, 0700240 #### [facility] [address] [place] [address] WBC corrected for nucl RBC Auto (Bld) [#/Vol] 4.6 E9/L Normal 4.0-11.0 [facility] Comment on above: Performed By: #### 2 381217, 3237113, 73432566, 0549867, 1342534, 4664641, 9559726, 7912434, 5690136, 5191433 #### [facility] [address] [place] [address] CBC w/Indiceson 05-10-2023 RBC size Nom (Bld) NORMAL Invalid Interpretation Code [facility] Comment on above: Performed By: #### 2 464856, 4708130, 18975894, 9627105, 5704398, 3599824, 0375318, 5814004, 2352810, 2283664 #### [facility] [address] [place] [address] CHEMISTRYOrdered By: SYSTEM SYSTEM on 05-10-2023 Albumin/Globulin [...] Comment on above: Performed By: #### 2 418478, 5305976, 78669674, 4206251, 9284956, 8057443, 3637099, 2220561, 3344000, 0693300 #### [facility] [address] [place] [address] Anion gap [Moles/Vol] 10 mmol/L Normal 6-16 Rem isol Chem Comment on above: Performed By: #### 2 841152, 7642382, 42907617, 0582265, 7598310, 1840826, 6260480, 3285595, 7068249, 1657886 #### [facility] [address] [place] [address] Bilirubin [Mass/Vol] 0.2 mg/dL Normal 0.0-1.1 Scar aman Chem Comment on above: Performed By: #### 2 679827, 4888065, 03946047, 8369239, 1863912, 2555017, 6358883, 1678012, 2693348, 5722413 #### [facility] [address] [place] [address] Calcium [Mass/Vol] 9.6 mg/dL Normal 8.9-11.1 Remiso l Chem Comment on above: Performed By: #### 2 872711, 1740413, 82873160, 7116351, 9244374, 1546007, 7447535, 8127960, 4732964, 6146304 #### [facility] [address] [place] [address] Chloride [Moles/Vol] 108 mmol/L Normal 101-111 Scar aman Chem Comment on above: Performed By: #### 2 271021, 1600906, 57289773, 1028189, 6192294, 6022565, 5740423, 5117883, 1541951, 6249667 #### [facility] [address] [place] [address] CO2 [Moles/Vol] 30 mmol/L Normal 21-31 Remisol C hem Comment on above: Performed By: #### 2 619396, 6283807, 99800218, 5117315, 6920697, 2372146, 3111102, 4360224, 8501168, 0430592 #### [facility] [address] [place] [address] Creatinine [Mass/Vol] 1.2 mg/dL Normal 0.5-1.3 Rem isol Chem Comment on above: Performed By: #### 2 547404, 2644432, 96211767, 6280246, 3277111, 0820329, 2047255, 2949713, 4017976, 6535824 #### [facility] [address] [place] [address] Globulin (S) [Mass/Vol] 3.9 g/dL Normal 1.4-4.0 R emisol Chem Comment on above: Performed By: #### 2 493492, 3385185, 51776296, 6096750, 0257713, 5449712, 7214548, 4690648, 7556710, 0043625 #### [facility] [address] [place] [address] Glucose [Mass/Vol] 84 mg/dL Normal 55-199 Remiso l Chem Comment on above: Performed By: #### 2 438177, 4514086, 14052040, 1886387, 6144581, 3257922, 2529632, 1128936, 0699191, 7774407 #### [facility] [address] [place] [address] Potassium [Moles/Vol] 4.3 mmol/L Normal 3.5-5.3 Rem isol Chem Comment on above: Performed By: #### 2 081673, 4258029, 26637560, 3621959, 6034896, 3779383, 6912416, 8717843, 9160091, 0290025 #### [facility] [address] [place] [address] Protein [Mass/Vol] 7.6 g/dL Normal 6.0-7.8 Remiso l Chem Comment on above: Performed By: #### 2 012188, 5740625, 09012769, 0897705, 0037599, 4020798, 9224988, 8103655, 0864121, 4473907 #### [facility] [address] [place] [address] Sodium [Moles/Vol] 144 mmol/L Normal 135-145 Remiso l Chem Comment on above: Performed By: #### 2 688737, 5209444, 72224129, 7161390, 6345466, 0463760, 4162225, 0473392, 4312628, 9855387 #### [facility] [address] [place] [address] Urea nitrogen [Mass/Vol] 18 mg/dL Normal 5-21 Remisol Chem Comment on above: Performed By: #### 2 027207, 2269771, 49149314, 6656145, 9821062, 2398178, 9760538, 0691132, 1965825, 9168292 #### [facility] [address] [place] [address] CMPon 05-10-2023 Albumin/Globulin (S) [Mass conc ratio] 0.9 Low 1.1-2.2 [facility] Comment on above: Performed By: #### 2 664342, 9406643, 60886953, 7718369, 2455495, 4011789, 6091337, 8225123, 0279706, 9721803 #### [facility] [address] [place] [address] ALP [Catalytic activity/Vol] 72 Int._Unit/L Normal 21-98 [facility] Comment on above: Performed By: #### 2 332935, 5082045, 56860318, 7798425, 5325963, 5637656, 6099781, 5380743, 0486069, 5778909 #### [facility] [address] [place] [address] ALT No additional P-5'-P [Catalytic activity/Vol] 9 Int._Unit/L Normal 6-46 [facility] Comment on above: Performed By: #### 2 782809, 6080428, 07282360, 5805438, 4886489, 6536258, 3159557, 6340412, 2512623, 0031972 #### [facility] [address] [place] [address] AST [Catalytic activity/Vol] 17 Int._Unit/L Normal 5-43 [facility] Comment on above: Performed By: #### 2 102164, 2164988, 44122992, 9363521, 6065196, 0278496, 9787456, 0355670, 7321301, 5907120 #### [facility] [address] [place] [address] Urea nitrogen/Creatinine [Mass ratio] 15 No Units Normal 10-20 [facility] Comment on above: Performed By: #### 2 706404, 2250171, 53227807, 3115824, 1458908, 4616133, 7261550, 5525454, 7531577, 0335507 #### [facility] [address] [place] [address] CarbamazepineOrdered By: SYS TEM SYSTEM on 05-10-2023 Carbamaz Lvl 7.3 microgram/mL Normal 4.0-12.0 Remiso l Chem Comment on above: Performed By: #### 2 144635, 9189171, 91661079, 0326865, 9615023, 6854812, 4745763, 1774413, 5619523, 2398402 #### [facility] [address] [place] [address] Free E6Dhpsnjj By: SYSTEM SY STEM on 05-10-2023 Free T4 [Mass/Vol] 0.61 ng/dL Normal 0.58-1.64 Remiso l Chem Comment on above: Performed By: #### 2 398483, 2843116, 74381017, 2969352, 9578956, 8274565, 8588297, 9813933, 8721032, 6517052 #### [facility] [address] [place] [address] HEMATOLOGYOrdered By: SYSTEM SYSTEM on 05-10-2023 RBC size Nom (Bld) NORMAL *NA* (05/10/23 7:00 AM) Invalid Interpretation Code Remisol Heme Ironon 05-10-2023 Iron [Mass/Vol] 70 microgram/dL Normal 35-153 [facility] Comment on above: Performed By: #### 2 746176, 4866502, 40683587, 0529537, 6456423, 9115916, 6059494, 2431073, 5904987, 1636043 #### [facility] [address] [place] [address] Physician Orderon 05-10-2023 Physician Order [id number] 31#1.00TIFF Normal [facility] TSHOrdered By: SYSTEM SYSTEM on 05-10-2023 TSH Qn 3.75 m[IU]/L Normal 0.34-5.60 Remisol Chem Comment on above: Performed By: #### 2 618227, 0238313, 12633233, 8497953, 6693340, 5859649, 1034649, 9776212, 0536257, 7076714 #### [facility] [address] [place] [address] Vit [id number] By: SYSTEM SY STEM on 05-10-2023 Cobalamin (Vitamin B12) [Mass/Vol] 479 pg/mL Normal 50-1500 Remisol Chem Comment on above: Performed By: #### 2 314142, 0285134, 57112490, 9997762, 8223538, 6053784, 4298663, 0356507, 0760106, 9568415 #### [facility] [address] [place] [address] eGFROrdered By: SYSTEM SYSTE M on 05-10-2023 eGFR 83 mL/min/1.73 m2 Normal >=59 Remisol Chem Comment on above: Order Comment: Order added by Discern Expert. Performed By: #### 2 338615, 8609436, 86051838, 3674858, 6346206, 1832870, 1274354, 6420803, 9972542, 7944763 #### [facility] [address] [place] [address] CARBAMAZEPINEon 05-18-2022 Carbamezapine 6.9 ug/mL Normal 4.0-12.0 [facility] Comment on above: Result Comment: In c onjunction with other antiepileptic drugs Therapeutic 4.0 - 8.0 Toxicity 9.0 - 12.0 . Carbamazepine alone Therapeutic 8.0 - 12.0 . Detection Limit = 2.0 <2.0 indicates None Detected Performed By: #### C ARBLC #### [facility] [address] [place] [address] Dr. Chase Pedro LITHIUMon 05-18-2022 [employer] (Eskalith(R)), Serum 0.7 mmol/L Normal 0.5-1.2 [facility] Comment on above: Result Comment: A co ncentration of 0.5-0.8 mmol/L is advised for long-term use; concentrations of up to 1.2 mmol/L may be necessary during acute treatment. Detection Limit = 0.1 <0.1 indicates None Detected Performed By: #### L ITHIUM #### [facility] [address] [place] [address] Dr. Chase Pedro CBC AUTO DIFFon 05-17-2022 BASO # 0.1 103/ul Normal 0.0-0.1 [facility] Comment on above: Performed By: #### C BC #### [facility] [address] [place] [address] Dr. Chase Pedro Basophils/100 WBC (Bld) 1.2 % Normal 0.2-2.0 [facility] Comment on above: Performed By: #### C BC #### [facility] [address] [place] [address] Dr. Chase Pedro EO # 0.0 103/ul Normal 0.0-0.7 [facility] Comment on above: Performed By: #### C BC #### [facility] [address] [place] [address] Dr. Chase Pedro Eosinophils/100 WBC (Bld) 0.2 % Critically low 0.9-7.0 [facility] Comment on above: Performed By: #### C BC #### [facility] [address] [place] [address] Dr. Chase Pedro Erythrocyte distribution width (RBC) [Ratio] 12.8 % Normal 11.0-15.0 [facility] Comment on above: Performed By: #### C BC #### [facility] [address] [place] [address] Dr. Chase Pedro Hematocrit (Bld) [Volume fraction] 42.5 % Normal 42.0-54.0 [facility] Comment on above: Performed By: #### C BC #### [facility] [address] [place] [address] Dr. Chase Pedro Hemoglobin (Bld) [Mass/Vol] 13.8 g/dL Critically low 14.0-18.0 [facility] Comment on above: Performed By: #### C BC #### [facility] [address] [place] [address] Dr. Chase Pedro IG # 0.02 10e3/ul Normal 0.00-0.03 [facility] Comment on above: Performed By: #### C BC #### [facility] [address] [place] [address] Dr. Chase Pedro IG % 0.4 % Normal 0.0-0.5 [facility] Comment on above: Performed By: #### C BC #### [facility] [address] [place] [address] Dr. Chase Pedro LYMPH # 2.3 103/ul Normal 1.2-3.8 [facility] Comment on above: Performed By: #### C BC #### [facility] [address] [place] [address] Dr. Chase Pedro Lymphocytes/100 WBC (Bld) 45.8 % Normal 20.5-60.0 [facility] Comment on above: Performed By: #### C BC #### [facility] [address] [place] [address] Dr. Chase Pedro MANUAL DIFF REQ NO Normal [facility] Comment on above: Performed By: #### C BC #### [facility] [address] [place] [address] Dr. Chase Pedro MCH (RBC) [Entitic mass] 33.8 pg Normal 25.9-34.0 [facility] Comment on above: Performed By: #### C BC #### [facility] [address] [address] [address] Chase Pedro MCHC (RBC) [Mass/Vol] 32.5 g/dL Normal 29.9-35.2 [facility] Comment on above: Performed By: #### C BC #### [facility] [address] [address] [address] Chase Pedro MCV (RBC) [Entitic vol] 104.2 fL Critically high 80.0-94 .0 [facility] Comment on above: Performed By: #### C BC #### [facility] [address] [address] [address] Chase Pedro MONO # 0.3 103/ul Normal 0.3-0.8 [facility] Comment on above: Performed By: #### C BC #### [facility] [address] [place] [address] Dr. Chase Pedro Monocytes/100 WBC (Bld) 5.7 % Normal 1.7-12.0 [facility] Comment on above: Performed By: #### C BC #### [facility] [address] [place] [address] Dr. Chase Pedro NEUT # 2.3 103/ul Normal 1.4-6.5 [facility] Comment on above: Performed By: #### C BC #### [facility] [address] [place] [address] Dr. Chase Pedro Neutrophils/100 WBC (Bld) 46.7 % Normal 43.0-75.0 [facility] Comment on above: Performed By: #### C BC #### [facility] [address] [place] [address] Dr. Chase Pedro Platelet mean volume (Bld) [Entitic vol] 9.2 fL Critically low 9.5-13.5 [facility] Comment on above: Performed By: #### C BC #### [facility] [address] [place] [address] Dr. Chase Pedro PLT 288 103/ul Normal 150-450 [facility] Comment on above: Performed By: #### C BC #### [facility] [address] [address] [address] Chase Pedro RBC 4.08 106/ul Critically low 4.70-6.10 [facility] Comment on above: Performed By: #### C BC #### [facility] [address] [place] [address] Dr. Chase Pedro WBC 4.9 103/ul Normal 4.0-11.0 [facility] Comment on above: Performed By: #### C BC #### [facility] [address] [place] [address] Dr. Chase Pedro DEPAKENE/ VALPROIC ACIDon DEPAKENE 56.7 ug/ml Normal 50.0-100.0 [facility] Comment on above: Performed By: #### C MP, TSH, VALP #### [facility] [address] [place] [address] Dr. Chase Pedro PROF 14(COMP METB)on 023 Albumin [Mass/Vol] 3.5 g/dL Normal 3.4-5.0 [facility] Comment on above: Performed By: #### C MP, TSH, VALP #### [facility] [address] [place] [address] Dr. Chase Pedro Albumin/Globulin [Mass ratio] 0.8 {ratio} Normal [facility] Comment on above: Performed By: #### C MP, TSH, VALP #### [facility] [address] [place] [address] Dr. Chase Pedro ALP [Catalytic activity/Vol] 110 U/L Normal 46-116 [facility] Comment on above: Performed By: #### C MP, TSH, VALP #### [facility] [address] [place] [address] Dr. Chase Pedro ALT [Catalytic activity/Vol] 18 U/L Normal 16-63 [facility] Comment on above: Performed By: #### C MP, TSH, VALP #### [facility] [address] [place] [address] Dr. Chase Pedro Anion gap [Moles/Vol] 8.0 mmol/L Normal [facility] Comment on above: Performed By: #### C MP, TSH, VALP #### [facility] [address] [address] [address] Chase Pedro AST [Catalytic activity/Vol] 12 U/L Critically low 15-37 [facility] Comment on above: Performed By: #### C MP, TSH, VALP #### [facility] [address] [place] [address] Dr. Chase Pedro Bilirubin [Mass/Vol] 0.3 mg/dL Normal 0.2-1.0 [facility] Comment on above: Performed By: #### C MP, TSH, VALP #### [facility] [address] [place] [address] Dr. Chase Pedro Calcium [Mass/Vol] 9.3 mg/dL Normal 8.5-10.1 [facility] Comment on above: Performed By: #### C MP, TSH, VALP #### [facility] [address] [place] [address] Dr. Chase Pedro Chloride [Moles/Vol] 107 mmol/L Normal 98-107 [facility] Comment on above: Performed By: #### C MP, TSH, VALP #### [facility] [address] [place] [address] Dr. Chase Pedro CO2 [Moles/Vol] 36.9 mmol/L Critically high 21.0-32.0 [facility] Comment on above: Performed By: #### C MP, TSH, VALP #### [facility] [address] [place] [address] Dr. Chase Pedro Creatinine [Mass/Vol] 1.46 mg/dL Critically high 0.70-1.30 [facility] Comment on above: Performed By: #### C MP, TSH, VALP #### [facility] [address] [place] [address] Dr. Chase Pedro EGFR-AF CANADIAN >60 Normal >=60 [facility] Comment on above: Performed By: #### C MP, TSH, VALP #### [facility] [address] [place] [address] Dr. Chase Pedro EGFR-NON AF CANADIAN 57 mL/min/1.73m2 Critically low >=60 [facility] Comment on above: Performed By: #### C MP, TSH, VALP #### [facility] [address] [address] [address] Chase Pedro Globulin (S) [Mass/Vol] 4.4 g/dL Normal [facility] Comment on above: Performed By: #### C MP, TSH, VALP #### [facility] [address] [address] [address] Chase Pedro Glucose [Mass/Vol] 94 mg/dL Normal 74-106 [facility] Comment on above: Performed By: #### C MP, TSH, VALP #### [facility] [address] [place] [address] Dr. Chase Pedro Potassium [Moles/Vol] 3.9 mmol/L Normal 3.5-5.1 [facility] Comment on above: Performed By: #### C MP, TSH, VALP #### [facility] [address] [place] [address] Dr. Chase Pedro Protein [Mass/Vol] 7.9 g/dL Normal 6.4-8.2 [facility] Comment on above: Performed By: #### C MP, TSH, VALP #### [facility] [address] [place] [address] Dr. Chase Pedro Sodium [Moles/Vol] 148 mmol/L Critically high 136-145 [facility] Comment on above: Performed By: #### C MP, TSH, VALP #### [facility] [address] [place] [address] Dr. Chase Pedro Urea nitrogen [Mass/Vol] 17.0 mg/dL Normal 7.0-18.0 [facility] Comment on above: Performed By: #### C MP, TSH, VALP #### [facility] [address] [address] [address] Chase Pedro Urea nitrogen/Creatinine [Mass ratio] 11.6 mg/mg Normal [facility] Comment on above: Performed By: #### C MP, TSH, VALP #### [facility] [address] [place], [place] [address] Dr. Chase Pedro TSHon 05-17-2022 TSH 0.725 uIU/mL Normal 0.358-3.740 [facility] Comment on above: Performed By: #### C MP, TSH, VALP #### [facility] [address] [place], [place] [address] Dr. Chase Pedro Progress Noteson 09-22-2021 Hide Or Skin Buffer Authentication Interface Message Text ----- Wednesday, September 22, 2021 at 11:33:21 AM ----- ----- Provider: [id number] - Resident Donald -- Clinic: [facility] ----- COMPOSITE CHRISTIAN Patient is scheduled for Tenriism on tooth #22-MDF, 23-MDF, 24-MDF, 25-MDF, 26-MDF [...] 2021 at 11:49:29 AM ----- ----- Provider: [id number] - Duc Zapata DDS -- Clinic: [facility] ----- Normal [employer] WOUND CULTUREon 07-18-2021 Antimicrobial Susceptibility Comment Normal [facility] Comment on above: Result Comment: S = Susceptible; I = Intermediate; R = Resistant P = Positive; N = Negative MICS are expressed in micrograms per mL Antibiotic RSLT#1 RSLT#2 RSLT#3 RSLT#4 Penicillin S Vancomycin S Performed By: #### C XWND #### [facility] [address] [address] [address] Chase Pedro Bacteria identified Aer cx Nom (Unsp spec) Final report Abnormal [facility] Comment on above: Performed By: #### C XWND #### [facility] [address] [address] [address] Chase Pedro Result 1 Enterococcus faecalis Abnormal [facility] Comment on above: Result Comment: For Enterococcus species, aminoglycosides (except for high-level resistance screening), cephalosporins, clindamycin, and trimethoprim-sulfamethoxazole are not effective clinically. (CLSI, P431-Y07, 2016) Heavy growth Performed By: #### C XWND #### [facility] [address] [address] [address] Chase Pedro Progress Noteson 06-08-2021 Hide Or Skin Buffer Authentication Interface Message Text [facility], Pt is ready for tx PT is [...] month recall. Examination completed by /[facility] [place]: mian ----- Signed on Tuesday, June 08, 2021 at 2:17:56 PM ----- ----- Provider: Emeterio Zapata DDS -- Clinic: [facility] ----- Normal [employer] XR MODIFIED BARIUM SWALLOWon 05-06-2021 XR [...] 2021 2:54:29 PM EDT Normal [facility] Comment on above: Order Comment: [...] shotty mediastinal and hilar lymph nodes. The loan representative conglomeration of 2 lymph nodes in [...] pneumomediastinum. Cardiomegaly, significant for the patient's age. [employer] Workstation ID: [id number] Dictated by: BERNADETTE ARANA on MonMay 05, 2021 2:07:05 PM EDT Transcribed by: NIKI QUESADA on MonMay 05, 2021 2:30:07 PM EDT Finalized by: BERNADETTE ARANA on MonMay 05, 2021 2:37:50 PM EDT [facility] Comment on above: Order Comment: Injur [...] on MonMay 04, 2021 8:43:37 PM EDT [facility] Comment on above: Order Comment: Injur [...] using the Xpert?? Xpress SARS-CoV-2/Flu/RSV plus RT-PCR [employer] assay on the [employer] Xpress System. This test has not been approved for use in asymptomatic patients and its performance in this patient population has not been evaluated. Negative results do not rule out the presence of SARS-CoV-2/COVID-19 . Fact sheets for this EUA can be found at the following links: For Healthcare Providers: https://www.fda.gov /media/648968/downl oad For Patients: https://www.fda.gov /media/459563/downl oad [facility] Comment on above: Performed By: #### L [id number] #### [facility] [address] [address] Liam Casas M.D. [id number] XR CHEST PA/APon 05-02-2021 XR CHEST PA/AP [...] left lung base. Findings consistent with pneumonia. [employer] Workstation ID: [id number] Dictated by: FRANCK JEFFERS on MonMay 02, 2021 1:44:03 PM EDT Transcribed by: CAMI CHAHAL on MonMay 02, 2021 1:47:37 PM EDT Finalized by: FRANCK JEFFERS on Sun May 02, 2021 2:44:35 PM EDT [facility] Comment on above: Order Comment: [...] refer to the speech pathologist's detailed report. [employer] Workstation ID: [id number] [facility] EXAMINATION: XR MODIFIED BARIUM SWALLOW HISTORY: Dx: [...] no radiographic evidence of tracheal aspiration/penetrat ion. [facility] Interface, Rad In Two Tapi Speech[employer] - 07/08/2020 8:42 PM EDT EXAMINATION: [...] refer to the speech pathologist's detailed report. [employer] Workstation ID: [id number] [facility] XR MODIFIED BARIUM SWALLOWon 07-08-2020 XR MODIFIED [...] refer to the speech pathologist's detailed report. /jamie Workstation ID: [id number] Dictated by: BERNADETTE ARANA on MonJuly 08, 2020 7:29:57 PM EDT Transcribed by: CAMI CHAHAL on MonJuly 08, 2020 7:30:41 PM EDT Finalized by: BERNADETTE ARANA on MonJuly 08, 2020 8:40:23 PM EDT [facility] Comment on above: Order Comment: ROULA Gutierrez ORDER Injury/Trauma or Illness?:Illness/Other How long have you had these symptoms (acute/chronic)?:Acute Reason for exam?: Dyspepsia Type of Exam?:Ongoing Additional signs and symptoms?: Dyspepsia Fluoro time in minutes:.4 40 seconds fluoro Fluoro dose in mGy?:22.92 Basic Metabolic Panelon 02-13 Anion gap [Moles/Vol] 7 mmol/L Low 10 - 20 mmol/L [facility] Calcium [Mass/Vol] 9.2 mg/dL 8.4 - 10. 2 mg/dL [facility] Chloride [Moles/Vol] 98 mmol/L 98 - 10 8 mmol/L [facility] Creatinine [Mass/Vol] 1.56 mg/dL High 0.5 - 1.3 mg/dL [facility] GFR/1.73 sq M predicted among non-blacks MDRD (S/P/Bld) [Vol rate/Area] The eGFR should be used for monitoring renal function only and not for medication dosing. [facility] GFR/1.73 sq M.predicted CKD-EPI (S/P/Bld) [Vol rate/Area] 60 >=60 mL/min/1.73 m2 [facility] Glucose [Mass/Vol] 102 mg/dL High 65 - 99 mg/dL [facility] HCO3 [Moles/Vol] 40 mmol/L High 21 - 32 mmol/L [facility] Potassium [Moles/Vol] 4.0 mmol/L 3.5 - 5.1 mmol/L [facility] Sodium [Moles/Vol] 141 mmol/L 135 - 145 mmol/L [facility] Urea nitrogen [Mass/Vol] 28 mg/dL High 8 - 25 mg/dL [facility] Urea nitrogen/Creatinine [Mass ratio] 17.9 mg/mg [facility] CBC WITH AUTO DIFFERENTIALon 03-01-2019 Basophils (Bld) [#/Vol] 0.05 10*3/uL [facility] Basophils/100 WBC (Bld) 0.7 % [facility] Eosinophils (Bld) [#/Vol] 0.08 10*3/uL [facility] Eosinophils/100 WBC (Bld) 1.2 % [facility] Erythrocyte distribution width (RBC) [Entitic vol] 14.2 % 11.6 - 14.8 % [facility] Hematocrit (Bld) [Volume fraction] 41.3 % 41 - 53 % [facility] Hemoglobin (Bld) [Mass/Vol] 13.2 g/dL Low 13.5 - 17.5 g/dL [facility] Immature granulocytes (Bld) [#/Vol] 0.06 10*3/uL [facility] Immature granulocytes/100 WBC (Bld) 0.90 % [facility] Comment on above: The IG parameter is the percentage of metamyelocytes, myelocytes, and promyelocytes. Interpretation and review of laboratory results Abnormal [facility] Lymphocytes (Bld) [#/Vol] 1.76 10*3/uL [facility] Lymphocytes/100 WBC (Bld) 26.2 % [facility] MCH (RBC) [Entitic mass] 32.3 pg 26 - 34 pg [facility] MCHC (RBC) [Mass/Vol] 32.0 g/dL 31 - 37 g/dL [facility] MCV (RBC) [Entitic vol] 101.0 fL High 80 - 100 fL [facility] Monocytes (Bld) [#/Vol] 0.65 10*3/uL [facility] Monocytes/100 WBC (Bld) 9.7 % [facility] Neutrophils (Bld) [#/Vol] 4.12 10*3/uL [facility] Neutrophils/100 WBC (Bld) 61.3 % [facility] Nucleated RBC (Bld) [#/Vol] 0.00 10*3/uL [facility] Nucleated RBC/100 WBC (Bld) [Ratio] 0.0 % [facility] Platelet mean volume (Bld) [Entitic vol] 9.6 fL 9 - 15.5 fL [facility] Platelets (Bld) [#/Vol] 355 10*3/uL [facility] RBC (Bld) [#/Vol] 4.09 10*6/uL Low [facility] WBC (Bld) [#/Vol] 6.72 10*3/uL [facility] Magnesium Levelon 03-01-2019 Magnesium [Mass/Vol] 2.5 mg/dL High 1.6 - 2 .4 mg/dL [facility] Otheron 03-01-2019 Interpretation and review of laboratory results Abnormal [facility] Phosphoruson 03-01-2019 Interpretation and review of laboratory results Normal [facility] Phosphate [Mass/Vol] 4.2 mg/dL 2.7 - 4 .5 mg/dL [facility] Basic Metabolic Panelon 02-13 Anion gap [Moles/Vol] 8 mmol/L Low 10 - 20 mmol/L [facility] Calcium [Mass/Vol] 9.2 mg/dL 8.4 - 10. 2 mg/dL [facility] Chloride [Moles/Vol] 99 mmol/L 98 - 10 8 mmol/L [facility] Creatinine [Mass/Vol] 1.54 mg/dL High 0.5 - 1.3 mg/dL [facility] GFR/1.73 sq M predicted among non-blacks MDRD (S/P/Bld) [Vol rate/Area] The eGFR should be used for monitoring renal function only and not for medication dosing. [facility] GFR/1.73 sq M.predicted CKD-EPI (S/P/Bld) [Vol rate/Area] 61 >=60 mL/min/1.73 m2 [facility] Glucose [Mass/Vol] 95 mg/dL 65 - 99 mg/dL [facility] HCO3 [Moles/Vol] 38 mmol/L High 21 - 32 mmol/L [facility] Potassium [Moles/Vol] 4.1 mmol/L 3.5 - 5.1 mmol/L [facility] Sodium [Moles/Vol] 141 mmol/L 135 - 145 mmol/L [facility] Urea nitrogen [Mass/Vol] 27 mg/dL High 8 - 25 mg/dL [facility] Urea nitrogen/Creatinine [Mass ratio] 17.5 mg/mg [facility] CBC WITH AUTO DIFFERENTIALon 02-28-2019 Basophils (Bld) [#/Vol] 0.06 10*3/uL [facility] Basophils/100 WBC (Bld) 1.0 % [facility] Eosinophils (Bld) [#/Vol] 0.07 10*3/uL [facility] Eosinophils/100 WBC (Bld) 1.2 % [facility] Erythrocyte distribution width (RBC) [Entitic vol] 14.5 % 11.6 - 14.8 % [facility] Hematocrit (Bld) [Volume fraction] 41.4 % 41 - 53 % [facility] Hemoglobin (Bld) [Mass/Vol] 13.1 g/dL Low 13.5 - 17.5 g/dL [facility] Immature granulocytes (Bld) [#/Vol] 0.07 10*3/uL [facility] Immature granulocytes/100 WBC (Bld) 1.20 % [facility] Comment on above: The IG parameter is the percentage of metamyelocytes, myelocytes, and promyelocytes. Lymphocytes (Bld) [#/Vol] 2.12 10*3/uL [facility] Lymphocytes/100 WBC (Bld) 35.6 % [facility] MCH (RBC) [Entitic mass] 32.4 pg 26 - 34 pg [facility] MCHC (RBC) [Mass/Vol] 31.6 g/dL 31 - 37 g/dL [facility] MCV (RBC) [Entitic vol] 102.5 fL High 80 - 100 fL [facility] Monocytes (Bld) [#/Vol] 0.40 10*3/uL [facility] Monocytes/100 WBC (Bld) 6.7 % [facility] Neutrophils (Bld) [#/Vol] 3.23 10*3/uL [facility] Neutrophils/100 WBC (Bld) 54.3 % [facility] Nucleated RBC (Bld) [#/Vol] 0.00 10*3/uL [facility] Nucleated RBC/100 WBC (Bld) [Ratio] 0.0 % [facility] Platelet mean volume (Bld) [Entitic vol] 9.6 fL 9 - 15.5 fL [facility] Platelets (Bld) [#/Vol] 383 10*3/uL [facility] RBC (Bld) [#/Vol] 4.04 10*6/uL Low [facility] WBC (Bld) [#/Vol] 6.20 10*3/uL [facility] Magnesium Levelon 02-28-2019 Magnesium [Mass/Vol] 2.6 mg/dL High 1.6 - 2 .4 mg/dL [facility] Otheron 02-28-2019 Interpretation and review of laboratory results Abnormal [facility] Phosphoruson 02-28-2019 Phosphate [Mass/Vol] 4.7 mg/dL High 2.7 - 4 .5 mg/dL [facility] Basic Metabolic Panelon 02-13 Anion gap [Moles/Vol] 7 mmol/L Low 10 - 20 mmol/L [facility] Calcium [Mass/Vol] 9.2 mg/dL 8.4 - 10. 2 mg/dL [facility] Chloride [Moles/Vol] 101 mmol/L 98 - 10 8 mmol/L [facility] Creatinine [Mass/Vol] 1.54 mg/dL High 0.5 - 1.3 mg/dL [facility] GFR/1.73 sq M predicted among non-blacks MDRD (S/P/Bld) [Vol rate/Area] The eGFR should be used for monitoring renal function only and not for medication dosing. [facility] GFR/1.73 sq M.predicted CKD-EPI (S/P/Bld) [Vol rate/Area] 61 >=60 mL/min/1.73 m2 [facility] Glucose [Mass/Vol] 104 mg/dL High 65 - 99 mg/dL [facility] HCO3 [Moles/Vol] 40 mmol/L High 21 - 32 mmol/L [facility] Interpretation and review of laboratory results Abnormal [facility] Potassium [Moles/Vol] 4.0 mmol/L 3.5 - 5.1 mmol/L [facility] Sodium [Moles/Vol] 144 mmol/L 135 - 145 mmol/L [facility] Urea nitrogen [Mass/Vol] 24 mg/dL 8 - 25 mg/dL [facility] Urea nitrogen/Creatinine [Mass ratio] 15.6 mg/mg [facility] NT Pro BNPon 02-26-2019 Interpretation and review of laboratory results Normal [facility] Natriuretic peptide.B prohormone N-Terminal [Mass/Vol] 67 pg/mL 0 - 300 pg/mL [facility] Pride Study Cut-offs Rule In: < /= 50 Years >450 pg/mL 51 Years - 75 Years >900 pg/mL 76 Years - 99 Years >1800 pg/mL Rule Out: All patients <300 pg/mL [facility] ECHOCARDIOGRAM 2D COMPLETEon 02-25-2019 Interface, Rad In [facility] Xper Echopacs - 02/25/2019 1:18 PM EST [facility] [address] [address] [place] [address] ----- ECHOCARDIOGRAPHY REPORT - [facility] ----- Name: FAHAD BERNABE Age: 28 years Date: 02/25/2019 Hospital #: [id number] : 1990 Room: [address] [place] [address] #: [id number] Sex: M Tech: Gary Squires Rajinder Ordering Physician: [id number] HOLDEN HINTON Height: 57.00 in Sys BP: 124 MARLENE cc: , Weight: 264.00 Nidia BP: 79 Reading Physician: [id number] Marrero MD/ Rhythm: Electronically Signed by: Basilia [...] LA Index (BP) 29.8 ml/m [employer] NOTES: Definity (if used): 1ml Final IMPRESSION: Poor quality, apical views borderline nondiagnostic. Definity given [address] [address] [place] [address] ---- ECHOCARDIOGRAPHY REPORT - [facility] ---- Name: FAHAD BERNABE Age: 28 years Date: 02/25/2019 Hospital #: [id number] : 1990 Room: [address] [place] [address] #: [id number] Sex: M Tech: Gary Calvillo Ordering Physician: [id number] HOLDEN HINTON Height: 57.00 in Sys BP: 124 MARLENE cc: , Weight: 264.00 Nidia BP: 79 Reading Physician: [id number] Marrero MD/ Rhythm: Electronically Signed by: [id number] Kate Marrero MD BSA: 2.02 m on: [...] LA Index (BP) 29.8 ml/m [employer] NOTES: Definity (if used): 1ml Final [facility] Poor quality, apical views borderline nondiagnostic. Definity given [facility] [employer] Levelon 02-25-2019 Interpretation and review of laboratory results Abnormal [facility] [employer] [Moles/Vol] 0.5 mmol/L Low 0.6 - 1. 2 mmol/L [facility] POC ARTERIAL BLO[facility] Base excess Calc (Bld) [Moles/Vol] 12.9 mmol/L High [facility] Breath rate setting [facility] [Partial pressure] 71.3 mm[Hg] High [facility] HCO3 (Bld) [Moles/Vol] 41.1 mmol/L High 22 - 26 mmol /L [facility] Hematocrit (BldA) [Volume fraction] 37.2 % Low 41 - 53 % [facility] Hemoglobin (Bld) [Mass/Vol] 12.1 g/dL Low 13.5 - 18 g/dL [facility] Inhaled oxygen concentration 0 % [facility] Inhaled oxygen flow rate 4 L/min [facility] Interpretation and review of laboratory results Abnormal [facility] Oxygen (Bld) [Partial pressure] 94 mm[Hg] [facility] pH (Bld) 7.37 [pH] [facility] SaO2% (BldA) [Mass fraction] 97.2 % 92 - 99 % [facility] Specimen source Nom (Unsp spec) Radial, left [facility] Tidal volume setting Ventilator 0 [facility] Base excess Calc (Bld) [Moles/Vol] 9.5 mmol/L High [facility] Breath rate setting Ventilator synchronized intermittent mandatory 0 [facility] h CO2 (Bld) [Partial pressure] 61.8 mm[Hg] High [facility] HCO3 (Bld) [Moles/Vol] 36.7 mmol/L High 22 - 26 mmol /L [facility] Hematocrit (BldA) [Volume fraction] 37.1 % Low 41 - 53 % [facility] Hemoglobin (Bld) [Mass/Vol] 12.1 g/dL Low 13.5 - 18 g/dL [facility] Inhaled oxygen concentration 0 % [facility] Inhaled oxygen flow rate 2 L/min [facility] Interpretation and review of laboratory results Abnormal [facility] Oxygen (Bld) [Partial pressure] 73 mm[Hg] Low [facility] pH (Bld) 7.38 [pH] [facility] SaO2% (BldA) [Mass fraction] 95.2 % 92 - 99 % [facility] Specimen source Nom (Unsp spec) Radial, left [facility] Tidal volume setting Ventilator 0 [facility] XR MODIFIED BARIUM SWALLOWon 02-25-2019 Recommendation is diet per Speech Pathology. Modified barium swallow study as described above. Please see Speech Pathologist report for complete details. MWK/isreali Workstation ID: [id number] [facility] EXAMINATION: XR MODIFIED BARIUM SWALLOW HISTORY: assess [...] 506. FINDINGS: The oral phase demonstrated slow [id number]-hj-qjynqzg or transit with posterior fall off into the pharynx with large volumes. The pharyngeal phase demonstrated no significant residue was seen following swallowing. There was some flash penetration seen with the thin liquid when a large volume was ingested. Aspiration was not seen during the examination. [facility] Interface, Rad In [facility] Speechq - 02/25/2019 [...] 506. FINDINGS: The oral phase demonstrated slow kfdxwgjy-sn-flxtknt or transit with posterior fall off into [...] for complete details. MWK/pji Workstation ID: [id number] [facility] CBC WITH AUTO DIFFERENTIALon 02-24-2019 Basophils (Bld) [#/Vol] 0.02 10*3/uL [facility] Basophils/100 WBC (Bld) 0.3 % [facility] Eosinophils (Bld) [#/Vol] 0.04 10*3/uL [facility] Eosinophils/100 WBC (Bld) 0.7 % [facility] Erythrocyte distribution width (RBC) [Entitic vol] 14.7 % 11.6 - 14.8 % [facility] Hematocrit (Bld) [Volume fraction] 38.2 % Low 41 - 53 % [facility] Hemoglobin (Bld) [Mass/Vol] 11.8 g/dL Low 13.5 - 17.5 g/dL [facility] Immature granulocytes (Bld) [#/Vol] 0.05 10*3/uL [facility] Immature granulocytes/100 WBC (Bld) 0.80 % [facility] Comment on above: The IG parameter is the percentage of metamyelocytes, myelocytes, and promyelocytes. Interpretation and review of laboratory results Abnormal [facility] Lymphocytes (Bld) [#/Vol] 1.37 10*3/uL [facility] Lymphocytes/100 WBC (Bld) 23.2 % [facility] MCH (RBC) [Entitic mass] 32.2 pg 26 - 34 pg [facility] MCHC (RBC) [Mass/Vol] 30.9 g/dL Low 31 - 37 g/dL [facility] MCV (RBC) [Entitic vol] 104.1 fL High 80 - 100 fL [facility] Monocytes (Bld) [#/Vol] 0.55 10*3/uL [facility] Monocytes/100 WBC (Bld) 9.3 % [facility] Neutrophils (Bld) [#/Vol] 3.87 10*3/uL [facility] Neutrophils/100 WBC (Bld) 65.7 % [facility] Nucleated RBC (Bld) [#/Vol] 0.00 10*3/uL [facility] Nucleated RBC/100 WBC (Bld) [Ratio] 0.0 % [facility] Platelet mean volume (Bld) [Entitic vol] 9.4 fL 9 - 15.5 fL [facility] Platelets (Bld) [#/Vol] 233 10*3/uL [facility] RBC (Bld) [#/Vol] 3.67 10*6/uL Low [facility] WBC (Bld) [#/Vol] 5.90 10*3/uL [facility] Comprehensive Metabolic Pane rachel 02-24-2019 Albumin [Mass/Vol] 2.8 g/dL Low 3.2 - 5.2 g/dL [facility] ALP [Catalytic activity/Vol] 80 U/L 40 - 140 U/L [facility] ALT [Catalytic activity/Vol] 20 U/L 14 - 65 U/L [facility] Anion gap [Moles/Vol] 7 mmol/L Low 10 - 20 mmol/L [facility] AST [Catalytic activity/Vol] 12 U/L 0 - 45 U/L [facility] Bilirubin [Mass/Vol] 0.2 mg/dL 0 - 1.3 mg/dL [facility] Calcium [Mass/Vol] 8.8 mg/dL 8.4 - 10. 2 mg/dL [facility] Chloride [Moles/Vol] 106 mmol/L 98 - 10 8 mmol/L [facility] Creatinine [Mass/Vol] 1.26 mg/dL 0.5 - 1.3 mg/dL [facility] GFR/1.73 sq M predicted among non-blacks MDRD (S/P/Bld) [Vol rate/Area] The eGFR should be used for monitoring renal function only and not for medication dosing. [facility] GFR/1.73 sq M.predicted CKD-EPI (S/P/Bld) [Vol rate/Area] 78 >=60 mL/min/1.73 m2 [facility] Glucose [Mass/Vol] 99 mg/dL 65 - 99 mg/dL [facility] HCO3 [Moles/Vol] 34 mmol/L High 21 - 32 mmol/L [facility] Interpretation and review of laboratory results Abnormal [facility] Potassium [Moles/Vol] 4.3 mmol/L 3.5 - 5.1 mmol/L [facility] Protein [Mass/Vol] 7.8 g/dL 6 - 8 g/dL [facility] Sodium [Moles/Vol] 143 mmol/L 135 - 145 mmol/L [facility] Urea nitrogen [Mass/Vol] 12 mg/dL 8 - 25 mg/dL [facility] Urea nitrogen/Creatinine [Mass ratio] 9.5 mg/mg Low [facility] Hemoglobin A1con 02-24-2019 Average glucose Estimated from glycated hemoglobin mass conc (Bld) 117 mg/dL High 68 - 114 mg/dL [facility] HbA1c (Bld) [Mass fraction] 5.7 % High 4 - 5.6 % [facility] Interpretation and review of laboratory results Abnormal [facility] Normal: 4.0% - 5.6% Increased risk for diabetes: 5.7% - 6.4% Diabetes: >= 6.5% Pediatrics: No established reference range Estimated average glucose: 68-114 mg/dL [facility] INFLUENZA A,B RAPID MOLECULA Jesus 02-24-2019 FLUAV RNA EDER+probe Ql (Unsp spec) Not Detected Not Detected [facility] FLUBV RNA EDER+probe Ql (Unsp spec) Not Detected Not Detected [facility] Interpretation and review of laboratory results Normal [facility] Test Method: Nucleic Acid Amplification [facility] LEGIONELLA ANTIGEN, URINEon 02-24-2019 L. pneumophila Ag Ql (U) Negative Negative for Legionella antigen [facility] Comment on above: COMMENT: Results may be affected if patient is on diuretics. INTERPRETATION OF RESULTS: Test detects Legionella pneumophilia serogroup 1 antigens in urine. Legionnaires disease cannot be ruled out since other serogroups and species may also cause disease. Magnesiumon 02-24-2019 Magnesium [Mass/Vol] 2.2 mg/dL 1.6 - 2 .4 mg/dL [facility] Otheron 02-24-2019 Interpretation and review of laboratory results Normal [facility] Interpretation and review of laboratory results Normal [facility] Phosphoruson 02-24-2019 Phosphate [Mass/Vol] 4.1 mg/dL 2.7 - 4 .5 mg/dL [facility] S.PNEUMONIAE URINE ANTIGENon 02-24-2019 S. pneumoniae Ag Ql (U) Negative Pres umptive Negative for Pneumococcal pneumoniae [facility] Comment on above: A negative result jimenes ggests no current or recent pneumococcal infection. A negative result does not rule out Streptococcus pneumoniae infection since the antigen present in the sample may be below the detection limit of the test. TSHon 02-24-2019 TSH Qn 2.18 m[IU]/L [facility] Valproic Acid Levelon 2019 Interpretation and review of laboratory results Abnormal [facility] Valproate [Mass/Vol] 47 ug/mL Low [facility] Alcohol, Medicalon 0 Ethanol [Mass/Vol] mg/dL <10.00 mg/dL [facility] Comment on above: Alcohol cutoff: <10. 00 mg/dL = None Detected Interpretation and review of laboratory results Normal [facility] Ammoniaon 02-23-2019 Ammonia (P) [Mass/Vol] 43 ug/dL [facility] Interpretation and review of laboratory results Normal [facility] BMPon 02-23-2019 Anion gap [Moles/Vol] 10 mmol/L 10 - 20 mmol/L [facility] Calcium [Mass/Vol] 8.3 mg/dL Low 8.4 - 10. 2 mg/dL [facility] Chloride [Moles/Vol] 108 mmol/L 98 - 10 8 mmol/L [facility] Creatinine [Mass/Vol] 1.20 mg/dL 0.5 - 1.3 mg/dL [facility] GFR/1.73 sq M predicted among non-blacks MDRD (S/P/Bld) [Vol rate/Area] The eGFR should be used for monitoring renal function only and not for medication dosing. [facility] GFR/1.73 sq M.predicted CKD-EPI (S/P/Bld) [Vol rate/Area] 83 >=60 mL/min/1.73 m2 [facility] Glucose [Mass/Vol] 104 mg/dL High 65 - 99 mg/dL [facility] HCO3 [Moles/Vol] 30 mmol/L 21 - 32 mmol/L [facility] Potassium [Moles/Vol] 4.8 mmol/L 3.5 - 5.1 mmol/L [facility] Sodium [Moles/Vol] 143 mmol/L 135 - 145 mmol/L [facility] Urea nitrogen [Mass/Vol] 15 mg/dL 8 - 25 mg/dL [facility] Urea nitrogen/Creatinine [Mass ratio] 12.5 mg/mg [facility] CBC WITH AUTO DIFFERENTIALon 02-23-2019 Basophils (Bld) [#/Vol] 0.03 10*3/uL [facility] Basophils/100 WBC (Bld) 0.3 % [facility] [#/Vol] 0.04 10*3/uL [facility] Eosinophils/100 WBC (Bld) 0.4 % [facility] Erythrocyte distribution width (RBC) [Entitic vol] 14.4 % 11.6 - 14.8 % [facility] Hematocrit (Bld) [Volume fraction] 35.1 % Low 41 - 53 % [facility] Hemoglobin (Bld) [Mass/Vol] 10.9 g/dL Low 13.5 - 17.5 g/dL [facility] Immature granulocytes (Bld) [#/Vol] 0.02 10*3/uL [facility] Immature granulocytes/100 WBC (Bld) 0.20 % [facility] Comment on above: The IG parameter is the percentage of metamyelocytes, myelocytes, and promyelocytes. Interpretation and review of laboratory results Abnormal [facility] Lymphocytes (Bld) [#/Vol] 1.22 10*3/uL [facility] Lymphocytes/100 WBC (Bld) 11.1 % [facility] MCH (RBC) [Entitic mass] 32.3 pg 26 - 34 pg [facility] MCHC (RBC) [Mass/Vol] 31.1 g/dL 31 - 37 g/dL [facility] MCV (RBC) [Entitic vol] 104.2 fL High 80 - 100 fL [facility] Monocytes (Bld) [#/Vol] 0.89 10*3/uL [facility] Monocytes/100 WBC (Bld) 8.1 % [facility] Neutrophils (Bld) [#/Vol] 8.75 10*3/uL High [facility] Neutrophils/100 WBC (Bld) 79.9 % [facility] Platelet mean volume (Bld) [Entitic vol] 9.0 fL 9 - 15.5 fL [facility] Platelets (Bld) [#/Vol] 241 10*3/uL [facility] RBC (Bld) [#/Vol] 3.37 10*6/uL Low [facility] WBC (Bld) [#/Vol] 10.95 10*3/uL [facility] CT HEAD OR BRAIN WITHOUT CON TRASTon 02-23-2019 EXAMINATION: CT HEAD OR BRAIN WITHOUT CONTRAST 02/23/2019 COMPARISON: None. HISTORY: Injury/Trauma or Illness?:Illness/Ot her How long have you had these symptoms (acute/chronic)?:Ac [place] Altered mental status Pt having trouble staying [...] cells are clear. No acute osseous abnormality. [facility] Interface, Rad In [facility] Speechq - 02/23/2019 3:59 PM EST EXAMINATION: CT HEAD OR BRAIN WITHOUT CONTRAST 02/23/2019 COMPARISON: None. HISTORY: Injury/Trauma or Illness?:Illness/Ot her How long have you had these symptoms (acute/chronic)?:Ac [place] Altered mental status Pt having trouble staying [...] medication. Correlate clinically. GJT/lab Workstation ID: [id number] [facility] 1. No acute intracranial abnormality identified. 2. Mild cerebral and cerebellar atrophy greater than typically seen for patient's age. This may be on the basis of chronic use of antiseizure medication. Correlate clinically. GJT/lab Workstation ID: [id number] [facility] DRUGS OF ABUSE SCREEN, URINE on 02-23-2019 Amphetamines Ql (U) None Detected None Detected [facility] Comment on above: Urine Amphetamine Cu toff: < 1000 ng/mL = None Detected Barbiturates Screen Ql (U) None Detected None Detected [facility] Comment on above: Urine Barbiturates C utoff: < 200 ng/mL = None Detected Benzodiazepines Ql (U) None Detected None Detec shayy [facility] Comment on above: Urine Benzodiazepine Cutoff: < 200 ng/mL = None Detected Cannabinoids Screen Ql (U) None Detected None Detected [facility] Comment on above: Urine Cannabinoids C utoff: < 50 ng/mL = None Detected Cocaine Ql (U) None Detected None Detected [facility] Comment on above: Urine Cocaine Cutoff : < 300 ng/mL = None Detected Interpretation and review of laboratory results Normal [facility] Methadone Screen Ql (U) None Detected None Dete cted [facility] Comment on above: Urine Methadone Cuto ff: < 300 ng/mL = None Detected Opiates Screen Ql (U) None Detected None Detect ed [facility] Comment on above: Urine Opiates Cutoff : < 300 ng/mL = None Detected Oxycodone Ql (U) None Detected None Detected [facility] Comment on above: Urine Oxycodone Cuto ff: < 100 ng/mL = None Detected Screen results should be used for treatment purposes only. [facility] ECG 12-LEADon 02-23-2019 Atrial Rate 80 BPM [facility] P [place] 34 degrees [facility] P-R Interval 194 ms [facility] Q-T Interval 400 ms [facility] QRS Duration 122 ms [facility] QTC Calculation (Bezet) 461 ms O [facility] R [place] 43 degrees [facility] T [place] 62 degrees [facility] Ventricular Rate 80 BPM [facility] ECG Cart Interpretation see physician note for interpretation. Normal sinus rhythm Right bundle branch block Cannot rule out Inferior infarct , age undetermined Abnormal ECG Confirmed by Agata Johnston ([id number]) on 02/23/2019 3:42:27 PM [facility] Hepatic Function Panel (LFT) on 02-23-2019 Albumin [Mass/Vol] 2.6 g/dL Low 3.2 - 5.2 g/dL [facility] ALP [Catalytic activity/Vol] 73 U/L 40 - 140 U/L [facility] ALT [Catalytic activity/Vol] 21 U/L 14 - 65 U/L [facility] AST [Catalytic activity/Vol] 18 U/L 0 - 45 U/L [facility] Bilirubin [Mass/Vol] 0.1 mg/dL 0 - 1.3 mg/dL [facility] Bilirubin.conjugated [Mass/Vol] mg/dL 0 - 0.4 mg/dL [facility] Protein [Mass/Vol] 7.4 g/dL 6 - 8 g/dL [facility] Lactic Acid, Plasmaon 2019 Interpretation and review of laboratory results Normal [facility] Lactate [Moles/Vol] 0.7 mmol/L 0.6 - 2 mmol/L O [facility] Lipaseon 02-23-2019 Lipase [Catalytic activity/Vol] 129 U/L 73 - 393 U/L [facility] NT Pro BNPon 02-23-2019 Interpretation and review of laboratory results Normal [facility] Natriuretic peptide.B prohormone N-Terminal [Mass/Vol] 252 pg/mL 0 - 300 pg/mL [facility] Pride Study Cut-offs Rule In: < /= 50 Years >450 pg/mL 51 Years - 75 Years >900 pg/mL 76 Years - 99 Years >1800 pg/mL Rule Out: All patients <300 pg/mL [facility] Otheron 02-23-2019 Interpretation and review of laboratory results Abnormal [facility] Interpretation and review of laboratory results Normal [facility] POC ARTERIAL BLOOD GAS PANEL -PULM - RALSon 02-23-2019 Base excess Calc (Bld) [Moles/Vol] 5.8 mmol/L High [facility] Breath rate setting Ventilator synchronized intermittent mandatory 0 [facility] CO2 (Bld) [Partial pressure] 56.6 mm[Hg] High [facility] HCO3 (Bld) [Moles/Vol] 32.5 mmol/L High 22 - 26 mmol /L [facility] Hematocrit (BldA) [Volume fraction] 35.0 % Low 41 - 53 % [facility] Hemoglobin (Bld) [Mass/Vol] 11.4 g/dL Low 13.5 - 18 g/dL [facility] Inhaled oxygen concentration 0 % [facility] Interpretation and review of laboratory results Abnormal [facility] Oxygen (Bld) [Partial pressure] 82 mm[Hg] [facility] pH (Bld) 7.37 [pH] [facility] SaO2% (BldA) [Mass fraction] 96.7 % 92 - 99 % [facility] Tidal volume setting Ventilator 0 [facility] POC Arterial Blood Gaseson 0 02-23-2019 Base Excess, Arterial 5 [facility] CO2 (Bld) [Partial pressure] 64.2 mm[Hg] High [facility] HCO3 (Bld) [Moles/Vol] 33.1 mmol/L High 22 - 26 mmol /L [facility] Hematocrit (Bld) [Volume fraction] 34 % Low 41 - 53 % [facility] Hemoglobin (Bld) [Mass/Vol] 11.6 g/dL Low 13.5 - 17.5 g/dL [facility] Interpretation and review of laboratory results Abnormal [facility] Oxygen (Bld) [Partial pressure] 76 mm[Hg] Low [facility] pH (Bld) 7.32 [pH] Low [facility] SaO2% (BldA) [Mass fraction] 93.0 % 92 - 99 % [facility] POC Glucoseon 02-23-2019 Glucose [Mass/Vol] 100 mg/dL Abnormal 65 - 99 mg/dL [facility] Interpretation and review of laboratory results Abnormal [facility] Glucose [Mass/Vol] 100 mg/dL High 65 - 99 mg/dL [facility] Interpretation and review of laboratory results Abnormal [facility] PT/INRon 02-23-2019 INR Coag (PPP) [Relative time] 1.1 {INR} [facility] Interpretation and review of laboratory results Normal [facility] PT Coag (PPP) [Time] 13.8 s [facility] During the induction phase of oral anticoagulation, the INR may not reflect the anticoagulation status of the patient. Therapeutic ranges for INR's are: Most clinical situations: INR 2.0-3.0 Mechanical Prosthetic Valve: INR 2.5-3.5 Critical: INR >5.0 [facility] TSH with Reflex Free T4on TSH Qn 1.01 m[IU]/L [facility] URINALYSISon 02-23-2019 Bacteria Auto Ql (U) Rare Abnormal None Seen /hpf [facility] Bilirubin Ql (U) Negative Negative [facility] th Clarity Refractometry automated (U) Clear Clear [facility] Color (U) Yellow Colorless, Yellow [facility] Epithelial cells.squamous Auto (Urine sed) [#/Area] 1 [facility] Glucose Auto test strip (U) [Mass/Vol] Negative Negative mg/dL [facility] Hemoglobin Auto test strip Ql (U) Negative Negative [facility] Interpretation and review of laboratory results Abnormal [facility] Ketones (U) [Mass/Vol] Negative Negative mg/d L [facility] Leukocyte esterase Auto test strip Ql (U) Negative Negative [facility] Nitrite Auto test strip Ql (U) Negative Negative [facility] pH (U) 6.0 [pH] [facility] Protein (U) [Mass/Vol] Negative Negative mg/d L [facility] Specific gravity (U) [Rel density] 1.015 [facility] Urobilinogen (U) [Mass/Vol] <2.0 <2.0 mg/dL [facility] WBC Auto (Urine sed) [#/Area] 1 [facility] Microscopic examination is performed on all urinalysis samples and only positive findings are reported. The test for blood on the chemical analytic portion of urinalysis may also be positive due to hemoglobinuria and myoglobinuria and if red blood cells are present they are quantified by microscopic examination. [facility] Valproic Acid Levelon 2019 Interpretation and review of laboratory results Normal [facility] Valproate [Mass/Vol] 72 ug/mL [facility] XR Chest 1 Viewon 02-23-2019 EXAMINATION: 1 VIEW XR CHEST PA/AP, 02/23/2019 COMPARISON: Chest, 01/06/2018 HISTORY: Injury/Trauma or Illness?:Illness/Ot her How long have you had these symptoms (acute/chronic)?:Ac [place] Altered mental status [facility] 1. Mild diffuse interstitial edema and/or mild inflammatory infectious pneumonitis. Correlate clinically. 2. Mild prominent cardiac silhouette slightly accentuated due to patient rotation to the left. 3. No acute osseous abnormality. GJT/demetri Workstation ID: [id number] [facility] Interface, Rad In Sariah Speechq - 02/23/2019 3:59 PM EST EXAMINATION: 1 VIEW XR CHEST PA/AP, 02/23/2019 COMPARISON: Chest, 01/06/2018 HISTORY: Injury/Trauma or Illness?:Illness/Ot her How long have you had these symptoms (acute/chronic)?:Ac [place] Altered mental status IMPRESSION: 1. Mild diffuse interstitial edema and/or mild inflammatory infectious pneumonitis. Correlate clinically. 2. Mild prominent cardiac silhouette slightly accentuated due to patient rotation to the left. 3. No acute osseous abnormality. [email or web address] Workstation ID: [id number] [facility] CBC, EDIF, PLATELETon 2017 ABSOLUTE BASOPHIL COUNT 0.0 Invalid Interpretation Code X10 [address] Comment on above: Testing performed at [place], [place] [address] Basophils/100 WBC Auto (Bld) 0.1 % Invalid Interpretation Code 0 - 2 % [address] Differential cell count method Nom (Bld) AUTO DIFF Invalid Interpretation Code % [address] Eosinophils Auto #/vol (Bld) 0.00 10*3/uL Invalid Interpretation Code X10 [address] Eosinophils/100 WBC Auto (Bld) 0.0 % Invalid Interpretation Code 0 - 11 % [address] Erythrocyte distribution width Ratio (RBC) 15.3 % High 11.5 - 14.5 % [address] Hematocrit Auto Volume Fraction (Bld) 35.6 % Low 42 - 52 % [address] Hemoglobin mass conc (Bld) 11.7 g/dL Low [address] Lymphocytes Manual cnt #/vol (Bld) 1.50 Invalid Interpretation Code X10 [address] Lymphocytes/100 WBC Auto (Bld) 16.7 % Low 20 - 55 % [address] MCH Auto Entitic mass (RBC) 33.1 pg Invalid Interpretation Code 26 - [address] MCHC Auto mass conc (RBC) 32.8 g/dL Invalid Interpretation Code [address] MCV Auto Entitic volume (RBC) 101.2 fL High [address] Monocytes Manual cnt #/vol (Bld) 0.5 Invalid Interpretation Code X10 [address] Monocytes/100 WBC Auto (Bld) 5.2 % Invalid Interpretation Code 0 - 10 % [address] Neutrophils Auto #/vol (Bld) 7.0 10*3/uL Invalid Interpretation Code [address] Neutrophils/100 WBC Auto (Bld) 78.0 % High 37 - 75 % [address] Platelet mean volume Auto Entitic volume (Bld) 7.6 fL Invalid Interpretation Code [address] Platelets Auto #/vol (Bld) 213 10*3/uL Invalid Interpretation Code [address] RBC Auto #/vol (Bld) 3.52 10*6/uL Low [place] [address] WBC Auto #/vol (Bld) 9.0 10*3/uL Invalid Interpretation Code [address] CHEST WITHOUT CONTRASTon 01-08-2018 EXAM: [...] this age. Invalid Interpretation Code RADIOLOGY User, Kenzie - 01/08/2018 12:16 AM EST EXAM: CT [...] MAGNESIUMon 01-08-2018 Magnesium mass conc 2.4 mg/dL [address] Comment on above: Testing performed at [place], [place] [address] Otheron 01-08-2018 Interpretation and review of laboratory results Abnormal Invalid Interpretation Code [address] RENAL FUNCTION PANELon 01-08 Albumin mass conc 3.5 G/dl Invalid Interpretation Code 3.5 - 5 G/dl [address] Calcium mass conc 8.8 mg/dL Invalid Interpretation Code [address] Chloride molar conc 113 mmol/L High [address] Comment on above: Please note: Triglyc eride levels of 600mg/dL or higher may positively bias chloride results by approximately 2.1 mmol CO2 molar conc 28 mmol/L Invalid Interpretation Code [address] Creatinine mass conc 1.0 mg/dL Invalid Interpretation Code [address] GFR/1.73 sq M predicted among blacks MDRD vol rate/area (S/P/Bld) mL/min/{1.73_m2} Invalid Interpretation Code ml/min/1.73sq. m [address] GFR/1.73 sq M predicted among non-blacks MDRD vol rate/area (S/P/Bld) Average GFR for 20-29 years old = 116. Invalid Interpretation Code [address] Comment on above: Chronic Kidney disea se, GFR = <60. Kidney failure, GFR = <15. The GFR estimate is not adjusted for extreme body surface area or acute process, nor has it been validated for women or ethnic groups other than and . Testing performed at [place], [place] [address] GFR/1.73 sq M predicted among non-blacks MDRD vol rate/area (S/P/Bld) mL/min/{1.73_m2} Invalid Interpretation Code ml/min/1.73sq. m [address] Glucose fasting mass conc 106 mg/dL High [address] Comment on above: NORMAL <100 mg/dL NM EDIABETES 101-126 mg/dL DIABETES 126 mg/dL or higher Phosphate mass conc 3.0 mg/dL Invalid Interpretation Code [address] Potassium molar conc 4.4 mmol/L Invalid Interpretation Code [address] Sodium molar conc 145 mmol/L Invalid Interpretation Code [address] Urea nitrogen mass conc 11 mg/dL Invalid Interpretation Code [address] CBC, EDIF, PLATELETon 2017 ABSOLUTE BASOPHIL COUNT 0.0 Invalid Interpretation Code X10 [address] Comment on above: Testing performed at [place], [place] [address] Basophils/100 WBC Auto (Bld) 0.1 % Invalid Interpretation Code 0 - 2 % [address] Differential cell count method Nom (Bld) AUTO DIFF Invalid Interpretation Code % [address] Eosinophils Auto #/vol (Bld) 0.00 10*3/uL Invalid Interpretation Code X10 [address] Eosinophils/100 WBC Auto (Bld) 0.0 % Invalid Interpretation Code 0 - 11 % [address] Erythrocyte distribution width Ratio (RBC) 15.4 % High 11.5 - 14.5 % [address] Hematocrit Auto Volume Fraction (Bld) 35.0 % Low 42 - 52 % [address] Hemoglobin mass conc (Bld) 11.4 g/dL Low [address] Lymphocytes Manual cnt #/vol (Bld) 1.20 Invalid Interpretation Code X10 [address] Lymphocytes/100 WBC Auto (Bld) 9.7 % Low 20 - 55 % [address] MCH Auto Entitic mass (RBC) 32.9 pg Invalid Interpretation Code 26 - [address] MCHC Auto mass conc (RBC) 32.5 g/dL Invalid Interpretation Code [address] MCV Auto Entitic volume (RBC) 101.3 fL High [address] Monocytes Manual cnt #/vol (Bld) 0.6 Invalid Interpretation Code X10 [address] Monocytes/100 WBC Auto (Bld) 5.1 % Invalid Interpretation Code 0 - 10 % [address] Neutrophils Auto #/vol (Bld) 10.6 10*3/uL High [address] Neutrophils/100 WBC Auto (Bld) 85.1 % High 37 - 75 % [address] Platelet mean volume Auto Entitic volume (Bld) 7.4 fL Invalid Interpretation Code [address] Platelets Auto #/vol (Bld) 216 10*3/uL Invalid Interpretation Code [address] RBC Auto #/vol (Bld) 3.45 10*6/uL [address] WBC Auto #/vol (Bld) 12.5 10*3/uL [address] [facility] AGon 12-15 L. pneumophila 1 Ag IA Ql (U) Negative Invalid Interpretation Code NEGATIVE [address] Comment on above: Testing performed at [place] [id number] MAGNESIUMon 01-07-2018 Magnesium mass conc 2.2 mg/dL Invalid Interpretation Code [address] Comment on above: Testing performed at [place] [address] Otheron 01-07-2018 Interpretation and review of laboratory results Abnormal Invalid Interpretation Code [address] RENAL FUNCTION PANELon 01-07 Albumin mass conc 3.3 G/dl Low 3.5 - 5 G/dl [address] Calcium mass conc 8.3 mg/dL Low [address] Chloride molar conc 111 mmol/L High [address] Comment on above: Please note: Triglyc eride levels of 600mg/dL or higher may positively bias chloride results by approximately 2.1 mmol CO2 molar conc 27 mmol/L Invalid Interpretation Code [address] Creatinine mass conc 1.2 mg/dL Invalid Interpretation Code [address] GFR/1.73 sq M predicted among blacks MDRD vol rate/area (S/P/Bld) mL/min/{1.73_m2} Invalid Interpretation Code ml/min/1.73sq. m [address] GFR/1.73 sq M predicted among non-blacks MDRD vol rate/area (S/P/Bld) mL/min/{1.73_m2} Invalid Interpretation Code ml/min/1.73sq. m [address] GFR/1.73 sq M predicted among non-blacks MDRD vol rate/area (S/P/Bld) Average GFR for 20-29 years old = 116. Invalid Interpretation Code [address] Comment on above: Chronic Kidney disea se, GFR = <60. Kidney failure, GFR = <15. The GFR estimate is not adjusted for extreme body surface area or acute process, nor has it been validated for women or ethnic groups other than and . Testing performed at [place], [place] [address] Glucose fasting mass conc 109 mg/dL High [address] Comment on above: NORMAL <100 mg/dL NM EDIABETES 101-126 mg/dL DIABETES 126 mg/dL or higher Phosphate mass conc 2.9 mg/dL Invalid Interpretation Code [address] Potassium molar conc 4.2 mmol/L Invalid Interpretation Code [address] Sodium molar conc 146 mmol/L High [address] Urea nitrogen mass conc 10 mg/dL Invalid Interpretation Code [address] STREP PNEUMONIAE ANTIGEN, UR INEon 01-07-2018 S. pneumoniae Ag Ql (U) Negative Invalid Interpretation Code NEGATIVE [address] Comment on above: Testing performed at [place] [id number] B-TYPE NATRIURETIC PEPTIDE ( BRAIN)on 01-06-2018 Natriuretic peptide B mass conc (Bld) 61 pg/mL Invalid Interpretation Code 0 - 100 pg/mL [address] Comment on above: Testing performed at [place], [place] [address] BASIC METABOLIC PANELon 12-15 Anion gap 3 molar conc 6 mmol/L Low [address] Calcium mass conc 8.8 mg/dL Invalid Interpretation Code [address] Chloride molar conc 107 mmol/L Invalid Interpretation Code [address] Comment on above: Please note: Triglyc eride levels of 600mg/dL or higher may positively bias chloride results by approximately 2.1 mmol CO2 molar conc 30 mmol/L Invalid Interpretation Code [address] Creatinine mass conc 1.3 mg/dL High [address] GFR/1.73 sq M predicted among blacks MDRD vol rate/area (S/P/Bld) mL/min/{1.73_m2} Invalid Interpretation Code ml/min/1.73sq. m [address] GFR/1.73 sq M predicted among non-blacks MDRD vol rate/area (S/P/Bld) Average GFR for 20-29 years old = 116. Invalid Interpretation Code [address] Comment on above: Chronic Kidney disea se, GFR = <60. Kidney failure, GFR = <15. The GFR estimate is not adjusted for extreme body surface area or acute process, nor has it been validated for women or ethnic groups other than and . Testing performed at [place], [place] [address] GFR/1.73 sq M predicted among non-blacks MDRD vol rate/area (S/P/Bld) mL/min/{1.73_m2} Invalid Interpretation Code ml/min/1.73sq. m [address] Glucose fasting mass conc 121 mg/dL High [address] Comment on above: NORMAL <100 mg/dL NM EDIABETES 101-126 mg/dL DIABETES 126 mg/dL or higher Potassium molar conc 4.3 mmol/L Invalid Interpretation Code [address] Sodium molar conc 143 mmol/L Invalid Interpretation Code [address] Urea nitrogen mass conc 13 mg/dL Invalid Interpretation Code [address] C REACTIVE PROTEINon 018 CRP mass conc 200.1 mg/L High 0 - 10 MG/L [address] Comment on above: Testing performed at [place], [place] [address] CBC, EDIF, PLATELETon 2017 ABSOLUTE BASOPHIL COUNT 0.0 Invalid Interpretation Code X10 [address] Comment on above: Testing performed at [place], [place] [address] Basophils/100 WBC Auto (Bld) 0.3 % Invalid Interpretation Code 0 - 2 % [address] Differential cell count method Nom (Bld) AUTO DIFF Invalid Interpretation Code % [address] Eosinophils Auto #/vol (Bld) 0.00 10*3/uL Invalid Interpretation Code X10 [address] Eosinophils/100 WBC Auto (Bld) 0.0 % Invalid Interpretation Code 0 - 11 % [address] Erythrocyte distribution width Ratio (RBC) 15.3 % High 11.5 - 14.5 % [address] Hematocrit Auto Volume Fraction (Bld) 41.2 % Low 42 - 52 % [address] Hemoglobin mass conc (Bld) 13.5 g/dL Low [address] Lymphocytes Manual cnt #/vol (Bld) 1.00 Invalid Interpretation Code X10 [address] Lymphocytes/100 WBC Auto (Bld) 7.1 % Low 20 - 55 % [address] MCH Auto Entitic mass (RBC) 32.6 pg Invalid Interpretation Code 26 - [address] MCHC Auto mass conc (RBC) 32.7 g/dL Invalid Interpretation Code [address] MCV Auto Entitic volume (RBC) 99.7 fL Invalid Interpretation Code [address] Monocytes Manual cnt #/vol (Bld) 1.2 Invalid Interpretation Code X10 [address] Monocytes/100 WBC Auto (Bld) 8.5 % Invalid Interpretation Code 0 - 10 % [address] Neutrophils Auto #/vol (Bld) 11.5 10*3/uL High [address] Neutrophils/100 WBC Auto (Bld) 84.1 % High 37 - 75 % [address] Platelet mean volume Auto Entitic volume (Bld) 7.2 fL Low [address] Platelets Auto #/vol (Bld) 241 10*3/uL Invalid Interpretation Code [address] RBC Auto #/vol (Bld) 4.13 10*6/uL Invalid Interpretation Code [address] WBC Auto #/vol (Bld) 13.7 10*3/uL High [place] [address] INFLUENZA A AND B, PCRon FLUBV Ag IA Ql (Unsp spec) Negative Invalid Interpretation Code NEGATIVE [address] Comment on above: TESTING PERFORMED BY EDER Testing performed at [place] [address] INFLUENZA A Negative Invalid Interpretation Code NEGATIVE [address] LACTATE, BLOODon 01-06-2018 Lactate molar conc 1.2 mmol/L Invalid Interpretation Code [address] Comment on above: Testing performed at [place] [address] LITHIUM LEVELon 01-06-2018 Interpretation and review of laboratory results Abnormal Invalid Interpretation Code [address] [employer] molar conc 0.40 mmol/L Low [address] Comment on above: Testing performed at [place] [address] Otheron 01-06-2018 Interpretation and review of laboratory results Abnormal Invalid Interpretation Code [address] Interpretation and review of laboratory results Abnormal Invalid Interpretation Code [address] RESPIRATORY CULTUREon 2017 Bacteria identified Cx Nom (Unsp spec) USUAL OROPHARYNGEAL MARICRUZ Invalid Interpretation Code [address] Comment on above: MODERATE GROWTH Test ing performed at [place] [address] Microscopic observation Gram stain Nom (Unsp spec) MODERATE Invalid Interpretation Code [address] Comment on above: WBC'S SEEN FEW SQUAM OUS EPITHELIAL CELLS MODERATE MIXED GRAM POSITIVE MARICRUZ NONE APPEAR PREDOMINANT SPECIMEN IS OF LEAST ACCEPTABLE QUALITY REPORT STATUS 01/08/2018 Invalid Interpretation Code [address] Comment on above: FINAL SPECIMEN DESCRIPTION SPUTUM Invalid Interpretation Code [address] SCREEN: MRSA ONLY, NARES (IS OLATION SCREEN)on 01-06-2018 MRSA isol Org specific cx Ql (Nose) Negative Invalid Interpretation Code [address] STAPHYOCOCCUS AUREUS BY PCR Negative Invalid Interpretation Code [address] Comment on above: TESTING PERFORMED BY PCR Testing performed at [place] [address] SEDIMENTATION RATE, AUTOMATE Don 01-06-2018 ESR Velocity (Bld) 31 mm/h High [address] Comment on above: Testing performed at [place] [address] TROPONINon 01-06-2018 Troponin I.cardiac mass conc ng/mL Invalid Interpretation Code 0 - 0.08 ng/mL [address] [address] Comment on above: Testing performed at [place] [address] TSHon 01-06-2018 Thyrotropin Qn 0.994 m[IU]/L Invalid Interpretation Code [address] Comment on above: Testing performed at [place] [address] XR CHEST AP PORTABLEon 01-06 EXAM: XR [...] 03-21-2024 09:58-0500 Body height 152.4 cm Wyatt Ley DPM Work Phone: [facility] 03-21-2024 09:58-0500 Body mass index (BMI) [Ratio] 29.49 kg/m2 Wyatt Ley DPM Work Phone: [facility] 03-21-2024 09:58-0500 Body weight 68.49 kg Wyatt Ley DPM Work Phone: [facility] 03-21-2024 09:58-0500 Diastolic blood pressure 78 mm[Hg] Wyatt Ley DPM Work Phone: [facility] 03-21-2024 09:58-0500 Heart rate 77 /min Wyatt Dieudonne DPM Work Phone: [facility] 03-21-2024 09:58-0500 Systolic blood pressure 124 mm[Hg] Wyatt Dieudonne DPM Work Phone: [facility] 12-21-2023 09:38-0500 Body height 152.4 cm Wyatt Dieudonne DPM Work Phone: [facility] 12-21-2023 09:38-0500 Body mass index (BMI) [Ratio] 29.49 kg/m2 Wyatt Dieudonne DPM Work Phone: [facility] 12-21-2023 09:38-0500 Body weight 68.49 kg Wyatt Dieudonne DPM Work Phone: [facility] 12-21-2023 09:38-0500 Diastolic blood pressure 79 mm[Hg] Wyatt Dieudonne DPM Work Phone: [facility] 12-21-2023 09:38-0500 Heart rate 86 /min Wyatt Dieudonne DPM Work Phone: [facility] 12-21-2023 09:38-0500 Systolic blood pressure 123 mm[Hg] Wyatt Dieudonne DPM Work Phone: [facility] 12-12-2023 09:59-0400 Body height 157.48 cm DO Iftikhar Sargentring Work Phone: [facility] 12-12-2023 09:59-0400 Body mass index (BMI) [Ratio] 29.5 kg/m2 DO Iftikhar Kemp Work Phone: [facility] 12-12-2023 09:59-0400 Body temperature 98.4 [degF] DO Iftikhar Kemp Work Phone: [facility] 12-12-2023 09:59-0400 Body weight 73.25 kg DO Iftikhar Kemp Work Phone: [facility] 12-12-2023 09:59-0400 Diastolic blood pressure 66 mm[Hg] DO Iftikhar Kemp Work Phone: [facility] 12-12-2023 09:59-0400 Heart rate 79 /min DO Iftikhar Kemp Work Phone: [facility] 12-12-2023 09:59-0400 Respiratory rate 20 /min DO Iftikhar Kemp Work Phone: [facility] 12-12-2023 09:59-0400 SaO2% (BldA) [Mass fraction] 97 % DO Iftikhar Kemp Work Phone: [facility] 12-12-2023 09:59-0400 Systolic blood pressure 105 mm[Hg] DO Iftikhar Kemp Work Phone: [facility] 12-06-2023 10:21-0400 Body height 157.48 cm DO Iftikhar Kemp Work Phone: [facility] 12-06-2023 10:21-0400 Body mass index (BMI) [Ratio] 30.2 kg/m2 DO Iftikhar Kemp Work Phone: [facility] 12-06-2023 10:21-0400 Body weight 74.84 kg DO Iftikhar Kemp Work Phone: [facility] 12-06-2023 10:21-0400 Diastolic blood pressure 78 mm[Hg] DO Iftikhar Kemp Work Phone: [facility] 12-06-2023 10:21-0400 Heart rate 88 /min DO Iftikhar Kemp Work Phone: [facility] 12-06-2023 10:21-0400 SaO2% (BldA) [Mass fraction] 98 % DO Iftikhar Kemp Work Phone: [facility] 12-06-2023 10:21-0400 Systolic blood pressure 118 mm[Hg] DO Iftikhar Kemp Work Phone: [facility] 05-27-2023 15:00-0400 Diastolic blood pressure 68 mm[Hg] Liban Otero MD Work Phone: [employer] 05-27-2023 15:00-0400 Heart rate 75 /min Liban Otero MD Work Phone: [employer] 05-27-2023 15:00-0400 SaO2% (BldA) [Mass fraction] 96 % Liban Otero MD Work Phone: [employer] 05-27-2023 15:00-0400 Systolic blood pressure 124 mm[Hg] Liban Otero MD Work Phone: [employer] 05-27-2023 14:49-0400 Respiratory rate 18 /min Liban Otero MD Work Phone: [employer] 05-27-2023 14:17-0400 Body height 144.8 cm Liban Otero MD Work Phone: [employer] 05-27-2023 14:16-0400 Body temperature 98.6 [degF] Liban Otero MD Work Phone: [employer] 11-03-2022 10:00-0400 Body height 157.48 cm Martha Yi Other [employer] Other 11-03-2022 10:00-0400 Body mass index (BMI) [Ratio] 29.08 kg/m2 Martha Yi Other [employer] Other 11-03-2022 10:00-0400 Body weight 72.12 kg Martha Yi Other [employer] Other 12-02-2021 12:30-0400 Body height 157.48 cm Thiago Chandler Other [employer] Other 12-02-2021 12:30-0400 Body mass index (BMI) [Ratio] 29.08 kg/m2 Thiago Chandler Other [employer] Other 12-02-2021 12:30-0400 Body temperature 97.1 [degF] Thiago Ramesh Other [employer] Other 12-02-2021 12:30-0400 Body weight 72.12 kg Thiago Ramesh Other [employer] Other 12-02-2021 12:30-0400 Diastolic blood pressure 78 mm[Hg] Thiago Ramesh Other [employer] Other 12-02-2021 12:30-0400 SaO2% (BldA) [Mass fraction] 100 % Thiago Ramesh Other [employer] Other 12-02-2021 12:30-0400 Systolic blood pressure 114 mm[Hg] Thiago Chandler Other [employer] Other 11-04-2021 11:00-0400 Body height 157.48 cm Martha Yi Other [employer] Other 11-04-2021 11:00-0400 Body mass index (BMI) [Ratio] 29.28 kg/m2 Martha Yi Other [employer] Other 11-04-2021 11:00-0400 Body weight 72.62 kg Martha Yi Other [employer] Other 08-05-2021 14:00-0400 Body height 144.78 cm Thiago Chandler Other [employer] Other 08-05-2021 14:00-0400 Body mass index (BMI) [Ratio] 32.46 kg/m2 Thiago Ramesh Other [employer] Other 08-05-2021 14:00-0400 Body temperature 97 [degF] Thiago Ramesh Other [employer] Other 08-05-2021 14:00-0400 Body weight 68.04 kg Thiago Ramesh Other [employer] Other 08-05-2021 14:00-0400 Diastolic blood pressure 73 mm[Hg] Thiago Ramesh Other [employer] Other 08-05-2021 14:00-0400 SaO2% (BldA) [Mass fraction] 97 % Thiago Ramesh Other [employer] Other 08-05-2021 14:00-0400 Systolic blood pressure 110 mm[Hg] Thiago Ramesh Other [employer] Other 05-27-2021 09:30-0400 Body height 152.4 cm Franck Carballo MD Work Phone: [facility] 05-27-2021 09:30-0400 Body mass index (BMI) [Ratio] 30.47 kg/m2 Franck Carballo MD Work Phone: [facility] 05-27-2021 09:30-0400 Body weight 70.76 kg Franck Carballo MD Work Phone: [facility] 05-27-2021 09:30-0400 Diastolic blood pressure 69 mm[Hg] Farnck Carballo MD Work Phone: [facility] 05-27-2021 09:30-0400 Heart rate 97 /min Franck Carballo MD Work Phone: [facility] 05-27-2021 09:30-0400 SaO2% (BldA) [Mass fraction] 91 % Franck Carballo MD Work Phone: [facility] 05-27-2021 09:30-0400 Systolic blood pressure 105 mm[Hg] Franck Carballo MD Work Phone: [facility] 03-01-2019 08:00-0500 Respiratory Rate 16 /min [facility] 03-01-2019 07:23-0500 BP Diastolic 69 mm[Hg] [facility] 03-01-2019 07:23-0500 BP Systolic 100 mm[Hg] [facility] 03-01-2019 07:23-0500 Pulse (Heart Rate) 91 /min [facility] 03-01-2019 07:23-0500 Pulse Oximetry 100 % [facility] 03-01-2019 06:00-0500 BMI (Body Mass Index) 44.56 kg/m2 [facility] 03-01-2019 06:00-0500 Body weight 93.[address] [facility] Comment on above: standing weight 03-01-2019 04:01-0500 Body Temperature 98.8 [degF] [facility] 02-25-2019 14:40-0500 Respiratory rate 17 /min [facility] 02-25-2019 10:56-0500 Respiratory rate 0 /min [facility] 02-23-2019 21:56-0500 Respiratory rate 0 /min [facility] 02-23-2019 18:33-0500 BP Diastolic 78 mm[Hg] Iftikhar Kemp [facility] 02-23-2019 18:33-0500 BP Systolic 139 mm[Hg] Iftikhar Kemp [facility] 02-23-2019 18:33-0500 Pulse (Heart Rate) 78 /min Iftikhar Kemp [facility] 02-23-2019 18:33-0500 Pulse Oximetry 99 % Iftikhar Kemp [facility] 02-23-2019 18:33-0500 Respiratory Rate 16 /min Iftikhar Kemp [facility] 02-23-2019 13:38-0500 BMI (Body Mass Index) 43.28 kg/m2 Iftikhar Kemp [facility] 02-23-2019 13:38-0500 Body Temperature 97.39 [degF] Iftikhar Kemp [facility] 02-23-2019 13:38-0500 Body weight 90.72 kg Iftikhar Kemp [facility] 02-23-2019 13:38-0500 Height 144.8 cm Iftikhar Kemp [facility] 01-08-2018 11:54-0500 Body Temperature 98.01 [degF] [facility] Work Phone: 01-08-2018 11:54-0500 BP Diastolic 48 mm[Hg] [facility] Work Phone: 01-08-2018 11:54-0500 BP Systolic 115 mm[Hg] [facility] Work Phone: 01-08-2018 11:54-0500 Pulse (Heart Rate) 75 /min [facility] Work Phone: 01-08-2018 11:54-0500 Pulse Oximetry 97 % [facility] Work Phone: 01-08-2018 11:54-0500 Respiratory Rate 18 /min [facility] Work Phone: 01-08-2018 03:51-0500 BMI (Body Mass Index) 45.89 kg/m2 [facility] Work Phone: 01-08-2018 03:51-0500 Weight 96.2 kg [facility] Work Phone: 01-06-2018 16:24-0500 Height 144.8 cm [facility] Work Phone: Encounters Encounter Date Encounter Type Care Provider Facility Start: 04-24-2024 End: 04-24-2024 ambulatory IFTIKHAR KEMP Facility[place] Start: 04-24-2024 End: 04-24-2024 Patient encounter procedure IFTIKHAR KEMP [facility] Start: 03-21-2024 End: 03-21-2024 Bamboo flowsheet Wyatt Ley DPM Work Phone: [facility] Start: 03-21-2024 End: 03-21-2024 Bamboo flowsheet Wyatt Otto Brown DPM Work Phone: [facility] Start: 03-21-2024 End: 03-21-2024 Office outpatient visit 15 minutes Wyatt Ley DPM Work Phone: [facility] Comment on above: Xerosis cutis (Prima ry Dx); Pain due to onychomycosis of toenails of both feet Start: 03-21-2024 End: 03-21-2024 ambulatory WYATT LEY Not Available Start: 12-21-2023 End: 12-21-2023 Bamboo flowsheet Wyatt Fam Ley DPM Work Phone: [facility] Start: 12-21-2023 End: 12-21-2023 Bamboo flowsheet Wyatt Fam Brown DPM Work Phone: [facility] Start: 12-21-2023 End: 12-21-2023 Office outpatient visit 15 minutes Wyatt Ley DPM Work Phone: [facility] Comment on above: Xerosis cutis (Prima ry Dx); Pain due to onychomycosis of toenails of both feet Start: 12-21-2023 End: 12-21-2023 ambulatory WYATT Fam LEY Not Available Start: 12-12-2023 End: 12-12-2023 ambulatory DO Iftikhar Otto Kemp Work Phone: [facility] Work Phone: Start: 12-12-2023 End: 12-12-2023 Patient encounter procedure DO Iftikhar Kemp Work Phone: [facility] Work Phone: Start: 12-06-2023 End: 12-06-2023 ambulatory DO Iftikhar A Kemp Work Phone: [facility] Work Phone: Start: 12-06-2023 End: 12-06-2023 Patient encounter procedure DO Iftikhar Kemp Work Phone: [facility] Work Phone: Start: 11-21-2023 End: 11-21-2023 ambulatory Fahad Olexa Facility:[facility] Start: 11-21-2023 End: 11-21-2023 Patient encounter procedure DO Iftikhar Kemp Work Phone: [facility] Work Phone: Start: 10-31-2023 End: 10-31-2023 ambulatory DO Iftikhar A Kemp Work Phone: [facility] Work Phone: Start: 10-31-2023 End: 10-31-2023 Patient encounter procedure DO Iftikhar Kemp Work Phone: [facility] Work Phone: Start: 10-31-2023 End: 10-31-2023 Patient encounter procedure DO Iftikhar Kemp Work Phone: [facility] Start: 10-31-2023 End: 10-31-2023 ambulatory DO Iftikhar A Kemp Work Phone: [facility] Work Phone: Start: 10-22-2023 End: 10-23-2023 Non-patient / Non-visit DO Iftikhar Kemp Work Phone: [facility] Work Phone: Start: 10-12-2023 End: 10-12-2023 [...] 09-21-2023 ambulatory DO Iftikhar Kemp Work Phone: [facility] Work Phone: Start: 09-21-2023 End: 09-21-2023 Patient encounter procedure DO Iftikhar Kemp Work Phone: [facility] Work Phone: Start: 09-21-2023 End: 09-21-2023 Patient encounter procedure DO Iftikhar Kemp Work Phone: [facility] Start: 09-21-2023 End: 09-21-2023 ambulatory DO Iftikhar Kemp Work Phone: [facility] Work Phone: Start: 09-07-2023 End: 09-07-2023 ambulatory [facility] Work Phone: Start: 09-07-2023 End: 09-07-2023 Patient encounter procedure [facility] Work Phone: Start: 07-04-2023 End: 07-04-2023 Patient encounter procedure IFTIKHAR KEMP [facility] Start: 07-04-2023 End: 07-04-2023 ambulatory IFTIKHAR KEMP Facility:[facility] Start: 05-27-2023 End: 05-27-2023 Emergency department patient visit IFTIKHAR KEMP [facility] Start: 05-27-2023 End: 05-27-2023 Emergency department patient visit Liban Otero MD Work Phone: [facility] Start: 05-10-2023 End: 05-10-2023 ambulatory IFTIKHAR KEMP Facility:[facility] Start: 05-10-2023 End: 05-10-2023 Lab Drop off IFTIKHAR KEMP [facility] Start: 05-03-2023 End: 05-03-2023 ambulatory [facility] Work Phone: Start: 05-03-2023 End: 05-03-2023 Patient encounter procedure [facility] Work Phone: Start: 11-30-2022 End: 11-30-2022 Patient encounter procedure DO Iftikhar Kemp Work Phone: [facility] Work Phone: Start: 11-30-2022 End: 11-30-2022 ambulatory DO Iftikhar Kemp Work Phone: [facility] Work Phone: Start: 11-03-2022 End: 11-03-2022 ambulatory Martha Yi Other [employer] Other Start: 11-03-2022 Office outpatient vi sit 25 minutes Martha Yi [facility] Start: 05-25-2022 End: 05-25-2022 Patient encounter procedure IFTIKHAR KEMP [facility] Start: 05-17-2022 End: 05-18-[address] IFTIKHAR KEMP Facility: Start: 02-22-2022 [facility] Start: 01-11-2022 End: 01-11-2022 ambulatory DO Iftikhar Kemp Work Phone: [facility] Work Phone: Start: 01-11-2022 End: 01-11-2022 Patient encounter procedure DO Iftikhar Kemp Work Phone: [facility] Start: 12-02-2021 Office outpatient vi sit 25 minutes Thiago Chandler [facility] Start: 12-02-2021 End: 12-02-2021 ambulatory DO Iftikhar Fam Kemp Work Phone: [employer] Other Start: 12-02-2021 End: 12-02-2021 Patient encounter procedure DO Iftikhar Kemp Work Phone: [facility] Start: 11-04-2021 End: 11-04-2021 ambulatory Martha Yi Other [employer] Other Start: 11-04-2021 Office outpatient vi sit 25 minutes Martha Yi [facility] Start: 10-13-2021 End: 10-13-2021 Patient encounter procedure DO Iftikhar Kemp Work Phone: [facility] Start: 09-22-2021 ambulatory UNKNOWN PROVIDER Facili ty:[facility] Start: 09-22-2021 End: 09-22-2021 Patient encounter procedure Renetta Bautista DDS Work Phone: [facility] Start: 08-05-2021 End: 08-05-2021 ambulatory Thiago Chandler Other [employer] Other Start: 08-05-2021 Office outpatient vi sit 25 minutes Thiago Chandler [facility] Start: 08-05-2021 End: 08-05-2021 Patient encounter procedure DO Iftikhar Kemp Work Phone: [facility] Start: 07-14-2021 End: 07-15-[address] DOCTOR RUSSELL Facility: Start: 06-08-2021 End: 06-09-2021 ambulatory UNKNOWN PROVIDER Facility:[facility] Start: 06-08-2021 End: 06-09-2021 Patient encounter procedure Vivi Clemons [facility] Work Phone: [facility] Start: 06-03-2021 End: 06-03-2021 ambulatory [facility] Start: 06-01-2021 End: 06-02-[address] IFTIKHAR KEMP Facility: Start: 05-27-2021 End: 05-27-2021 ambulatory [facility] Start: 05-27-2021 End: 05-27-2021 Office outpatient new 30 minutes Franck Carballo MD Work Phone: [facility] Comment on above: Esophageal dysphagia (Primary Dx); Food bolus obstruction of intestine (HCC) Start: 05-03-2021 End: 05-06-2021 Evaluation and management of inpatient [facility] Start: 05-02-2021 End: 05-03-2021 Emergency department patient visit IFTIKHAR Fam KEMP [facility] Start: 07-08-2020 End: 07-09-2020 ambulatory [facility] Start: 07-08-2020 End: 07-08-2020 Subsequent hospital visit by physician Iftikhar Kemp DO Work Phone: [facility] Comment on above: Arrived Start: 04-02-2020 End: 04-02-2020 Orders Only Melissa Presley Work Phone: [facility] Start: 02-23-2019 End: 03-01-2019 Evaluation and management of inpatient Generic [facility] Work Phone: [facility] Cardi[facility] Step Down Comment on above: Acute metabolic ence phalopathy (Primary Dx) Start: 02-23-2019 End: 02-23-2019 [facility] Start: 01-06-2018 End: 01-08-2018 Evaluation and management of inpatient Joaquin Garcia Work Phone: [facility] Comment on above: Pneumonia Procedures Date Procedure Procedure Detail Performing Clinician Start: 11-21-2023 Plain X-ray of right hand DO Iftikhar [facility] Work Phone: Start: 10-31-2023 Plain X-ray of right wrist DO [facility] Work Phone: Start: 09-21-2023 Plain X-ray of right wrist DO [facility] Work Phone: Start: 05-27-2023 Radiologic exam ches t single view Sandeep Kylee [employer] Work Phone: Start: 05-27-2023 Complete blood count with white cell differential, automated Sandeep Kylee Robert [employer] Work Phone: Start: 05-27-2023 Creatinine blood Sandeep Kylee Robert [employer] Work Phone: Start: 07-08-2020 Radiologic exam swal [...] or Plasma Idalia Sims Work Phone: Start: 02-28-2019 Complete blood count with white cell differential, automated Idalia Bethany Work Phone: Start: 02-28-2019 Complete blood count with white cell differential, manual Idalia Sims Work Phone: Start: 02-28-2019 Magnesium [Mass/volu me] in Serum or Plasma Idalia Bethany Work Phone: Start: 02-28-2019 Phosphate [Mass/volu me] in Serum or Plasma Idalia Bethany Work Phone: Start: 02-27-2019 Basic metabolic 2000 panel - Serum or Plasma Idalia Sims Work Phone: Start: 02-26-2019 Natriuretic peptide. B prohormone N-Terminal [Mass/volume] in Serum or Plasma Idalia Sims Work Phone: Start: 02-25-2019 Evaluation of arteri al blood gas studies [facility] Work Phone: Start: 02-25-2019 OBTAIN ARTERIAL BLOO D GASES AND PERFORM Stuart Mcgrath Work Phone: Start: 02-25-2019 Videofluoroscopy swallow Stuart Mcgrath Work Phone: Start: 02-25-2019 Contrast echocardiography Khvineetoon Samjenstorrey Felizeen Work Phone: Start: 02-25-2019 [employer] [Moles/volum e] in Serum or Plasma Stuart Mcgrath Work Phone: Start: 02-24-2019 Influenza virus A AN D B antigen assay Stuart Mcgrath Work Phone: Start: 02-24-2019 Evaluation of arteri al blood gas studies [facility] Work Phone: Start: 02-24-2019 OBTAIN ARTERIAL BLOO D GASES AND PERFORM Stuartankur Resendizmercedezjair Work Phone: Start: 02-24-2019 Streptococcus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 A, DO [address] [place] [address] Discharge Instructions * Discharge Instr - Diet - Brenna Fall RN - 01/08/2018 2:59 PM EST Resume pre-hospital diet As tolerated. * Discharge Instr - Activity - Brenna Fall RN - 01/08/2018 2:58 PM EST Resume pre-hospital activity as tolerated. The following attachments cannot be sent through Care Everywhere. * Benzonatate capsules (Argent[place]) * Prednisone tablets ([place]gent[place]) * Levofloxacin tablets ([place]gentine) * Adult, Pneumonia ([place]gent[place]) in this encounter* Discharge Instr- IP MILK COLLECTOR* Idalia Sims MD - 03/01/2019 10:22 AM EST No straws, please follow aspriartion precautions * Discharge Instr - Care Coordination* Ivory Bhatia LISW - 02/25/2019 12:39 PM EST [facility] - [phone] FAX [phone] Mother Edison to transport patient - [phone]. * Attachments The following attachments cannot be sent through Care Everywhere. * Aspiration Pneumonia ([place]gent[place]) documented in this encounter History of Present Illness * Dixie Alexander, PT - 01/07/2018 1:31 PM EST Formatting of this note may be different from the original. 01/07/18 9538 General Information RN Approved Intervention as tolerated [...] Status) full weight bearing Home Setting Residence (senior care; mother assists with pt Hx) Lives With other (see comments) (senior care; was home visiting mom when got ill) First floor bed/bathroom yes (all 1 level at senior care) Number of Stairs to Enter Home (0 at senior care; has a couple at mom's house) Number [...] Supine to Sit, Rehab Eval Level of [place]: Supine/Sit other (see comments) (pt found up in chair; assistx1 c MICROBIOLOGICAL LABORATORY TECHNICIAN this AM, per mother) Transfer Skill: Sit To Stand, Rehab Eval [place] (Sit-Stand Transfers) contact guard Physical Assist/Nonphysical Assist: Sit/Stand set-up required;verbal cues;1 person assist (line managment needed) Weight-Bearing Restrictions: Sit/Stand full weight-bearing Assistive Device For Transfer: Sit/Stand (CGAx1 with gait belt only) Gait Skills, PT Eval Level of [place]: Gait contact guard Physical Assist/Nonphysical Assist: Gait [...] to medical status) Stair Negotiation Level of [place]: Stair Negotiation (held steps due to pt does not have at senior care) Balance Additional Documentation (sitting = WNL; standing = good-) Sensory Examination Sensory Examination WFL General Interventions Planned Therapy Interventions balance training;bed mobility training;endurance;gait training;neuromuscular re- education;strengthening;transfer training;postural re-education PRIOR LEVEL [facility] Basic Mobility Inpatient Short Form Turning [...] 3 - A Little Assistance PRIOR LEVEL [facility] Mobility Raw Score 23 PRIOR LEVEL [facility] Mobility Functional Limitation/Modifier 11.20% Prior Functional Impairment in Basic Mobility - CI CURRENT [facility] Basic Mobility Inpatient Short Form Turning [...] 2 - A Lot of Assistance CURRENT [facility] Mobility Raw Score 18 CURRENT [facility] Mobility Functional Limitation/Modifier 46.58% Currently Impaired in Basic Mobility - CK Projected [facility] Mobility Raw Score 23 Projected [facility] Mobility Functional Limitation/Modifier 11.20% Projected Functional Impairment in Basic Mobility - CI Assessment Assessment Narrative Pt presents with limited activity tolerance and mild shortness of breath with mobility today related to medical status, and would benefit from skilled PT services during acute care stay to improve mobility tolerance and overall safety with all mobility. Discharge Recommendations pt to return to senior care with HEP Clinical Impression Criteria for Skilled [...] comments) (at this time, anticipating return to senior care with HEP) Plan Plan Narrative pt to be seen 1-2x/day during acute care stay Therapist Information License # [id number] Patient status at end of treatment/response to [...] treatment of this patient is transferred to [facility] Inpatient Physical Therapist following this evaluation. Dixie Alexander, PT, DPT #[id number] Time in: 836 AM Time out: 900 AM Billable time: 24 min Charges: Eval (low complexity) 1@24min Current anticipated discharge recommendation: anticipate pt to return to senior care with HEP Patient demonstrates functional limitation in mobility: walking and moving around at CK 40-60 % impairment as evidenced by AMPAC. Anticipated functional limitation status at discharge is CI 1-20 %. 01/07/2018 1:33 PM in this encounter* Damaris Yang LISW - 03/01/2019 10:27 AM EST DISCHARGE PLAN PROGRESS NOTE Date: 03/01/2019 Time: 10:27 AM Patient Name: Fahad Bernabe Date of : 1990 Sex: Male The patient is discharged today back to [facility]. Called the facility and spoke with Emilia. She said [facility]. Faxed the referral and day of discharge bundle to the facility. Please call report to [phone]. Information faxed to [phone]. Patient's mother plans to transport the patient. Case closed at discharge. [facility] Disposition D/C Disposition: Another Health Care Institution Not Defined([facility] care facility.) Agency/Destination: ([facility]) Transportation Type: Auto(Mother, Edison to transport [phone]) Reason for Choice: Currently with agency Anticipated Discharge Plan Anticipated HME: Undetermined * Damaris Yang LISW - 02/28/2019 3:30 PM EST DISCHARGE PLAN PROGRESS NOTE Date: 02/28/2019 Time: 3:31 PM Patient Name: Fahad Bernabe Date of : 1990 Sex: Male Returned a call to [facility] [phone]. Discussed that the plan was to discharge thepatient back to their facility tomorrow. [facility] Disposition D/C Disposition: Another Health Care Institution Not Defined([facility] care facility.) Agency/Destination: ([facility]) Transportation Type: Auto(Mother, Edison to transport [phone]) Reason for Choice: Currently with agency Anticipated Discharge Plan Anticipated HME: Undetermined * Idalia Sims MD - 02/28/2019 1:32 PM EST [facility] Medicine Inpatient Follow-up 02/28/2019 Idalia Sims MD [facility] Patient: Fahad Bernabe Date of [...] Sims MD - 02/27/2019 3:54 PM EST [facility] Medicine Inpatient Follow-up 02/27/2019 Idalia Sims MD [facility] Patient: Fahad Bernabe Date of [...] IMAGING: Reviewed 3:57 PM * Patricia Lema, MILK COLLECTOR - 02/27/2019 8:50 AM EST Speech Pathology [...] Family/caregiver support Explain Environmental Factors: lives in senior care in [place], mother very supportive - pt stays with [...] Assess for diet tolerance, Re-evaluate diet changes MILK COLLECTOR Caregiver Readiness Working toward discharge home: Yes MILK COLLECTOR Caregiver Training: Ongoing - Follow up required [...] to speech therapy recommendations this social work nurse contacted Kayleigh at [place]. Carmela reports that she spoke with Lina at [facility] in speech therapy about patient needs.Carmela states that a speech therapist visits [place] weekly and that she is aware that patient would need to be seen. Patient's step father was informed of need for speech therapy as patient's mother (reported guardian) is not available at this time. Patient's mother is home resting and taking a shower, per step father. Patient Information Primary Caregiver: Other (Comment)([facility] - [phone]) Discharge Planning Living Arrangements: Facility Support Systems: Parent, customer logistics manager/social work nurse, Other (Comment)(Mother Edison reports that she is guardian.) Assistance Needed: stand by Type of Residence: senior living Care Facility Name: ([facility].) Prior to Admission Home Care Services: No Patient expects to be discharged to:: [facility]. Mother Edison to transport. Does the patient need discharge transport arranged?: No Current Home Equipment: None, Oxygen Anticipated HME: Undetermined Anticipated Discharge Plan Anticipated HME: Undetermined [facility] Disposition D/C Disposition: Another Health Care Institution Not Defined([facility] care facility.) Agency/Destination: ([facility]) Transportation Type: Auto(Mother, Edison to transport [phone]) Reason for Choice: Currently with agency * Idalia Sims MD - 02/26/2019 2:01 PM EST [facility] Medicine Inpatient Follow-up 02/26/2019 Idalia Sims MD [facility] Patient: Fahad Bernabe Date of [...] days Lab Units 02/25/19 1438 02/24/19 0933 02/24/1936 02/23/19 1434 WBC K/mcL -- -- 5.90 [...] IMAGING: Reviewed 2:01 PM * Eda Arriaga, MILK COLLECTOR - 02/26/2019 10:59 AM EST Speech Pathology [...] Family/caregiver support Explain Environmental Factors: lives in senior care in [place], mother very supportive - pt stays with mother every other weekend Personal Factors: Awareness of own capacity and performance Explain Personal Factors: developmental delays and cognitive deficits, impulsivity Skilled Therapy Needs: dysphagia intervention for pt/caregiver training Recommendations: Provale Cup for volume control, small utensils for bolus portion mgmt MILK COLLECTOR Caregiver Readiness Working toward discharge home: Yes MILK COLLECTOR Caregiver Training: Ongoing - Follow up required [...] and optimize control).Stated I put you in half-way . With emotional support, pt behaviors did [...] Mcgrath MD - 02/25/2019 1:00 PM EST [facility] Medicine Inpatient Follow-up 02/25/2019 Stuart Mcgrath MD [facility] Patient: Fahad Bernabe Date of [...] Mcgrath MD - 02/24/2019 8:12 AM EST [facility] Medicine Inpatient Follow-up 02/24/2019 Stuart Mcgrath MD [facility] Patient: Fahad Bernabe Date of : 1990 (28 y.o.) PCP: Iftikahr Kemp, ASSESSMENT/PLAN: Fahad Bernabe 28 y.o. male [...] FoundDocuments on File Type Date Recorded Patient Virologist Expl anation Advance Directives and Livin g Will 02/23/2019 3:14 PM Guardianship Papers 02/23/2019 3:14 PM Latest Code Status on File Code Status Date Activated Date Inactivated Comments Full Code - Unverified 02/23/2019 9:21 PM Documents on File Type Date Recorded Patient Virologist Expl anation Advance Directives and Livin g Will 02/23/2019 11:06 PM Guardianship Papers 02/23/2019 3:14 PM Latest Code Status on File Code Status Date Activated Date Inactivated Comments Full Code - Unverified 02/23/2019 9:21 PM Documents on File Type Date Recorded Patient Virologist Expl anation Advance Directives and Livin g Will 02/23/2019 11:06 PM Guardianship Papers 02/23/2019 3:14 PM Documents on File Type Date Recorded Patient Virologist Expl anation Advance Directives and Livin g Will 07/08/2020 11:06 PM Guardianship Papers 02/23/2019 3:14 PM Guardianship Papers 07/08/2020 12:00 AM Documents on File Type Date Recorded Patient Virologist Expl anation Advance Directives and Livin g [...] HOSPITALIST DISCHARGE SUMMARY Patient: Fahad Bernabe Account: [id number] Admitted: 02/23/2019 Discharge Date/Time: 03/01/2019 Clinical Summary [...] for which he is nonadherent. Transferred to [facility] for aspiration pneumonia and acute on chronic [...] next recommendation would be for tracheostomy per harness inspector Obstructive Sleep Apnea - pt underwent sleep [...] with tracheostomy -Patient to follow-up with his harness inspector as an outpatient Acute on Chronic Respiratory [...] Family: Iftikhar Kemp DO, Phone: None, Address: [address] [place] [address] / [facility] [id number] Follow Up: Iftikhar Kemp DO [address] [facility] [address] Follow up in 1 week(s) Patient instructions, [...] XR Modifed Barium Swallow Iftikhar Kemp DO [address] [place] [address] Reason Comments Consult EGD Reason Comments Choking Mother and patient w as choking on a hotdog at [facility]. Vss. Reason Comments Toenail Care Non dm [...] H&P Notes (unrecognized sect ion and content) [facility] Medicine Inpatient H&P 02/23/2019 Holden Whiteside MD [facility] Patient: Fahad Bernabe Date of : 1990 (28 y.o.) PCP: Iftikhar Kemp, DO [place] Fahad Bernabe is a 28 y.o. 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 Patient refuses to wear his CPAP machine for the last year was seen at [place] emergency department due to cough and for unresponsiveness. Patient was diagnosed yesterday at [facility] emergency department with a pneumonia and [...] for the last year was seen at [place] emergency department due to cough and for unresponsiveness. Patient was diagnosed yesterday at [facility] emergency department with a pneumonia and was started on antibiotics. Patient is a resident of a [facility] in [place]. His mother went to pick him up [...] PM documented in this encounter Eda Arriaga, MILK COLLECTOR - 02/25/2019 10:00 AM EST Procedure Notes (unrecognize d section and content) Procedure(s): MILK COLLECTOR MODIFIED BARIUM SWALLOW Pre-Procedure Diagnose(s): Dysphagia, unspecified type Post-Procedure Diagnose(s): Oropharyngeal dysphagia [facility] Speech Language Pathology Modified Barium Swallow [...] Explain Environmental Factors supportive mother, lives in senior care in [facility] lives in senior care in [place], mother very supportive - pt stays with [...] 23 Down syndrome currently a resident of [facility], presenting with hypoxic respiratory failure CO2 narcosis and sleep apnea. Neurology was consulted by the primary team for evaluation of neurological causes of encephalopathy. He lives at the [facility] but is being checked on [...] given his improvement. DAMIAN GRIGSBY, MSc, . [email or web address] Staff Neurologist & Movement Disorder Specialist [facility] (Adj Asst: Professor, [employer] Dept of Neurology) [id number], [facility] [address] Clinic (Appointments) Fax: [phone] Attestation: Time statement: A total of 50 minutes were spent on this encounter either in the patient's room or on the patient's hospital unit and over half of that time was spent on doad-qp-glfs counseling and/or coordination of care. This note was dictated using [employer], a speech-recognition software. Syntax errors and sound-alike substitutions which may escape proofreading could be present. In such instances, the actual meaning can be extrapolated from the context. Associated Order(s): IP CONSULT TO PULMONOLOGY PULMONOLOGY CONSULT 02/26/2019 Patient: Fahad Bernabe Date of : 1990 Site: [facility] Referring Provider: Refer to consult order in electronic medical record Provider: Kathryn Lawrence CNP ASSESSMENT/PLAN: Fahad Bernabe 28 y.o. male with history of Down syndrome, ADHD, Depression, Hypothryoidism, OCD, Seizures, open heart surgery for childhood ASD/VSD, HTN, aspiration pneumonia, obstructive sleep apnea on CPAP for which he is nonadherent. Transferred to [facility] for aspiration pneumonia and acute on chronic [...] is a 28 y.o. male presenting from [facility] with complaint of lethargy and was evaluated at [facility] where he was diagnosed with Pneumonia and discharged home with antibiotics. Mother took patient home with her that evening and presents to [place] ED the following day for worsened lethargy, fever, and cough. B/L interstitial edema noted and patient transferred to [facility] for respiratory failure. Pt with history of [...] December. Patient not able to contribute to NIKOLAI or ROS. Information obtained from mother and [...] tablet 1 tablet 1 tablet Oral Q12H [facility] Idalia Sims MD 1 tablet at 02/26/19 [...] 40 mg 40 mg Subcutaneous BID Monroe Duong, [facility],PharmD famotidine (PEPCID) tablet 20 mg [...] Sex: Male Patient Information Primary Caregiver: Other (Comment)([facility] - [phone]) Initial assessment completed with patient's mother, Edison. Patient was present during assessment. Patient's mother Edison reports that she is patient's guardian. This social work nurse requested that Edison bring in a copy of guardianship paperwork for patient's chart. Edison reports that patient resides at [facility], which is a care center for [facility]. Patient does need 24 hour supervision due to flight risk. PING Hendricks is aware and reports that a break away alarm is placed on patient. This social work nurse contacted Pavithra at [facility]. Pavithra reports that patient can return at discharge. Pavithra informed that Edison plans to transport patient when patient is ready for discharge. Pavithra reports that patient was on 2 liters of oxygen at night while at [place]. Pavithra requested discharge paperwork when patient is discharged from the hospital. [place] [phone] FAX [phone]. Discharge Planning Living Arrangements: Facility Support Systems: Parent, customer logistics manager/social work nurse, Other (Comment)(Mother Edison reports that she is guardian.) Assistance Needed: stand by Type of Residence: senior living Care Facility Name: ([facility].) Prior to Admission Home Care Services: No Patient expects to be discharged to:: [facility]. Mother Edison to transport. Does the patient need discharge transport arranged?: No Current Home Equipment: None, Oxygen Anticipated HME: Undetermined Anticipated Discharge Plan Anticipated HME: Undetermined [facility] Disposition D/C Disposition: Another Health Care Institution Not Defined([facility] Agency/Destination: ([facility]) Transportation Type: Auto(Mother, Edison to transport [phone]) Reason for Choice: Currently with agency Speech [...] Explain Environmental Factors: supportive mother, lives in senior care in [facility] Personal Factors: Awareness of own capacity and performance Explain Personal Factors: premorbid cognitive deficits Skilled Therapy Needs: Anticipate Resolution of Current Assessment Limitations Including: (acute pulmonary deficit) Are Skilled Therapy Services Needed After Discharge: Yes Intensity of Skilled Therapy: (to be determined per MBS) Anticipated Duration of Skilled Therapy: (pending MBS) MILK COLLECTOR Caregiver Readiness Working toward discharge home: Yes MILK COLLECTOR Caregiver Training: Ongoing - Follow up required [...] clinical information: Downs Syndrome from [facility] Past Medical History: Diagnosis Date ADHD Bipolar [...] Estimated Needs: 1800-2000cal Method for Estimating Needs: [id number],adjbw Total Protein Estimated Needs: 79gms Method for [...] and instructions Outcome: Met Possible discharge to [facility] tomorrow. Problem: Falls, Risk of Goal: Absence [...] Patient with bathroom needs per mother at [facility]. Will follow up as appropriate. Associated Problem(s): [...] discharge order. Care management consulted. Patient from [facility] in [place]. Problem: Pain Goal: Manage acute pain Outcome: [...] Inactive Member Role Status Dates Iftikhar Kemp , DO Primary Care Provider Active Thiago Chandler MD Attending Provider Active Strategy Execution Consultant Relationship Specialty Start Date End Date Iftikhar Kemp DO [address] [place] [address] PCP - General Endocrinology/Metabolism 02/23/19 Team Status: Inactive Member Role Status Glenn Kemp DO Primary Care Provider Active Start: May 03, 2023 End: May 03, 2023 Martha Richmond APRN ACNP- Attending Provider Active Start: May 03, 2023 End: May 03, 2023 DME Active Start: May [id number] End: May 03, 2023 Strategy Execution Consultant Relationship Specialty Start Date End Date Iftikhar Kemp DO [address] [place] [address] PCP - General Family Medicine 05/27/23 Team Status: Inactive Member Role Status Glenn [...] Team Status: Inactive Member Role Status Glenn Echavarria MD Attending [...] End: December 12, [address] [facility] Attending Provider Active Start: December 12, 2023 End: December 12, 2023 Strategy Execution Consultant Relationship Specialty Start Date End Date Iftikhar Kemp MD [address] [place] [id number] PCP - General Family Medicine 10/12/23 Iftikhar Kemp MD [address] [place], [place] [phone] (Work) Family Medicine 10/12/23 Strategy Execution Consultant Relationship Specialty Start Date End Date Iftikhar Kemp MD [address] [place], [place] [phone] (Work) PCP - General Family Medicine 10/12/23 Iftikhar Kemp MD [address] [place], [place] [phone] (Work) Family Medicine 10/12/23 Strategy Execution Consultant Relationship Specialty Start Date End Date Iftikhar Kemp MD [address] [place], [place] [phone] (Work) PCP - General Family Medicine 10/12/23 Strategy Execution Consultant Relationship Specialty Start Date End Date Iftikhar Kemp MD [address] [place] [address] PCP - General Family Medicine 10/12/23 Strategy Execution Consultant Relationship Specialty Start Date End Date Iftikhar Kemp MD [address] [place] [address] PCP - General Family Medicine 10/12/23 Iftikhar Kemp MD [address] [place] [address] Family Medicine 10/12/23 (unrecognized sect ion and content) No Status Records FoundNo Status Records FoundNo Status Records FoundNo Status Records FoundNo Status Records FoundNo Status Records FoundNo Status Records FoundNo Status Records FoundNo Status Records Found INFORMATION SOURCE (unrecogn ized section and content) DATE CREATED AUTHOR 05/28/2021 [facility] DATE CREATED AUTHOR AUTHOR'S ORGANIZ ATION 05/28/2021 [facility] DATE CREATED AUTHOR AUTHOR'S ORGANIZ ATION 06/05/2021 [facility] DATE CREATED AUTHOR AUTHOR'S ORGANIZ ATION 09/28/2021 [facility] DATE CREATED AUTHOR AUTHOR'S ORGANIZ ATION 05/23/2022 [facility] DATE CREATED AUTHOR AUTHOR'S ORGANIZ ATION 06/01/2023 [facility] DATE CREATED AUTHOR AUTHOR'S ORGANIZ ATION 11/23/2023 [facility] DATE CREATED AUTHOR AUTHOR'S ORGANIZ ATION 03/23/2024 [facility] EPIC DATE CREATED AUTHOR AUTHOR'S ORGANIZ ATION 05/08/2024 [facility] Goals (unrecognized section and content) Goals may [...] BE BASED ON THE PRIMARY CLINICAL RECORDS. [facility] [employer] [facility]. provides no warranty or guarantee of the accuracy or completeness of information in this document.
[2024-05-14 11:47] LABS: Bacteria Urine NONE SEEN #/HPF (NONE SEEN); Crystals Seen? Seen #/HPF (None Seen); Mucus Urine NONE SEEN (NONE SEEN); RBC Urine 0-2 #/HPF (0-2); Squamous Epithelial Cell Urine RARE #/LPF (NONE/RARE); WBC Urine 0-2 #/HPF (NONE SEEN)
[2024-05-14 11:48] LABS: Amorphous Sediment Urine MODERATE; Cast Seen? SEEN #/LPF (NONE SEEN); Coarse Granular Casts Urine FEW; Urine Culture Indicated NO
[2024-05-14 11:57] LABS: Lactate/Lactic Acid 3.6 mmol/L (0.4-2.0)
--- NOTE | 2024-05-14 12:51 | PC.NURSE ---
increased O2 to 4L NC -- SpO2 now 92%
[2024-05-14 14:20] LABS: Lactate/Lactic Acid 2.6 mmol/L (0.4-2.0)
--- NOTE | 2024-05-14 14:50 | PC.NURSE ---
PLACED ON NRB AT THIS TIME -- DROPPED DOWN TO 87% ON SIMPLE MASK. PT NOW 89% -- INFORMED DR ARROYO
[2024-05-14 16:52] LABS: Allen Test POSITIVE (POSITIVE); Base Excess ABG -0.6 mmol/L (-2.0-2.0); HCO3 ABG 25.9 mmol/L (22.0-26.0); O2 Mode BIPAP; Oxygen Saturation ABG 87.8 %
[2024-05-14 16:53] LABS: BIPAP Pressure 16/8; Fractionated Inspired Oxygen 100 %; Puncture Site LB
[2024-05-14 16:54] LABS: Rate 16
[2024-05-14 16:56] LABS: ABG PCO2 52.9 mmHg (35.0-45.0); PO2 ABG 58.3 mmHg (80.0-100.0); pH ABG 7.297 (7.350-7.450)
[2024-05-14] MEDS: IPRATROPIUM/ALBUTEROL SULFATE 3 ML AMPUL.NEB IH (17:16)
[2024-05-14] MEDS: METHYLPREDNISOLONE SOD SUCC PF 40 MG/ML VIAL 60 MG IVP (17:26)
[2024-05-14] MEDS: LACTATED RINGER'S SOLUTION 1,000 ML 1000 ML IV (17:30)
[2024-05-14] MEDS: MIDAZOLAM HCL 2 MG/2 ML VIAL 4 MG IV (17:36)
[2024-05-14] MEDS: ETOMIDATE 20 MG/10 ML VIAL IVP (17:40)
[2024-05-14] MEDS: PROPOFOL 1,000 MG/100 ML VIAL 11.226 MG IV (17:42)
--- NOTE | 2024-05-14 18:00 | P.ON_ITS ---
Date of procedure: 05/14/24 Pre-op diagnosis: Acute hypoxic and hypercapnic respiratory failure Procedure: The patient was seen in the intensive care unit room on a BiPAP 28/09 with SaO2 <88% on FiO2 100%. Patient had increased work of breathing with a respiratory rate 36. Patient was obtunded at times and difficult to arouse. Communication was difficult as he has Down syndrome. With the consent of the parents, present in the room, decision was made to urgently intubate the patient to avoid an emergent situation. Given the patient's body habitus, the intubation was prepared as a difficult intubation. The patient was placed in the supine position. Continuous pulse oximetry, noninvasive blood pressure cuff monitoring, and continuous electrocardiographic tracing were employed during the procedure. Two towels were placed underneath the patient's shoulders to line up the pharyngeal and laryngeal axes. Mechanical respiration was achieved easily with bag valve mask ventilation at 100% FiO2 to assure adequate air exchange. The airway was inspected and the chest was examined for appropriate rise and fall during manually applied breaths. After appropriate oxygenation and was achieved, anesthesia was administered consisting of Versed 4mg IVP, followed by etomidate 10mg. Preparations were made to administer succinylcholine for RSI; however the patient was completely sedated without any movement with the after mentioned anesthesia and decision was made to hold off on succinylcholine. Potassium was 3.8. The bag valve mask was removed from the face. Using a Mcville Scope, the [place]ville Scope blade was used to manipulate the tongue, lifting anteriorly to visualize the epiglottis and epiglottic vallecula. Great care was taken not to injure oral structures. Lifting anteriorly, the vocal cords were visualized via fiberoptic visualization. 7.5mm endotracheal tube with a rigid stylet was advanced, under fiberoptic visualization, between the vocal cords into the trachea. The stylet was removed and the endotracheal tube was advanced to the 22cm cuco at the anterior lip line. The cuff was inflated. An end-tidal CO2 detector was attached to the bag valve apparatus. Favorable color change was noted on the end-tidal CO2 detector. Auscultation performed by an assisting nurse noted bilateral breath sounds in the thoracic region with absent sounds in the gastric region. Saturations remained adeqate after intubation. The endotracheal tube was connected to the mechanical ventilator a nd secured with a commercially available tie by the respiratory therapist. The patient tolerated the procedure well. A post-procedural portable chest x-ray was ordered to evaluate for appropriate endotracheal tube placement; results are pending at the time of this report. Anesthesia: Moderate Sedation (Versed 4mg, etomidate 10mg) Surgeon: Sandeep Pink Condition: critical Disposition: ICU
--- NOTE | 2024-05-14 18:08 | PM.PLCN ---
History of Present Illness History of Present Illness Consult date: 05/14/24 Requesting physician: Timbo Jarrell Reason for consult: hypoxemia Chief complaint: ALTERED MENTAL STATUS, PNEUMONIA, HYPOXEMIA Narrative: 33yo male presented to [facility] with ~3 day history of worsening respiratory status. He has Down syndrome and is not able to communicate well; on top of this he is obtunded. History is obtained from the patient's parents who are at the bedside. The patient resides at [place] and visits at home on the weekends. The patient has a history of overeating, shuffling food into his mouth. The mother states there is a frequent history of aspiration associated with this. This past 05/11/2024, the patient had one such episode. He did not improve however and declined. He was brought into the ER. He was placed on a BiPAP with eventual settings 16/8 and eventually titrated to FiO2 of 100%. ABG was drawn on the settings with a pCO2 of 52, SaO2 87%. Patient had increased work of breathing with a respiratory rate of 36. I expressed concern that the patient is going to tire out leading to a critical situation, possibly a code. I suggested to the parents urgent intubation. The parents voiced consent. Patient was successfully intubated with a 7.5 endotracheal tube. Blood pressure is tenuous. He has received several liters of saline/LR and remains hypotensive. Goal MAP is 65; order for Levophed has been entered in the event he requires pressors. Review of Systems ROS Status of ROS unobtainable due to medical condition and unobtainable due to mental status [facility] Medical History (Updated 05/14/24 @ 18:14 by Sandeep Pink DO) Asthma exacerbation ?J45.901 - Unspecified asthma with (acute) exacerbation (ICD-10) Pneumonia ?J18.9 - Pneumonia, unspecified organism (ICD-10) Pneumonia ?J18.9 - Pneumonia, unspecified organism (ICD-10) COVID-19 ?U07.1 - COVID-19 (ICD-10) NARINDER (obstructive sleep apnea) ?G47.33 - Obstructive sleep apnea (adult) (pediatric) (ICD-10) Down syndrome ?Q90.9 - Down syndrome, unspecified (ICD-10) Pulmonary hypertension ?I27.20 - Pulmonary hypertension, unspecified (ICD-10) Pickwickian syndrome ?E66.2 - Morbid (severe) obesity with alveolar hypoventilation (ICD-10) Chronic constipation ?K59.09 - Other constipation (ICD-10) Eczema ?L30.9 - Dermatitis, unspecified (ICD-10) Sleep apnea ?G47.30 - Sleep apnea, unspecified (ICD-10) Dyspepsia ?R10.13 - Epigastric pain (ICD-10) Obsessive compulsive disorder ?F42.9 - Obsessive-compulsive disorder, unspecified (ICD-10) Bipolar 1 disorder ?F31.9 - Bipolar disorder, unspecified (ICD-10) Hypothyroid ?E03.9 - Hypothyroidism, unspecified (ICD-10) 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, unspecified (ICD-10) ?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 Smoking status: Unknown if ever smoked Non-prescribed substance use: denies use Highest level of school completed/degree received: never attended/kindergarten only Gender Identity: male Meds Home Medications and Allergies Home Medications ?Medication ?Instructions ?Recorded ?Confirmed ?Type acetaminophen 325 mg capsule 650 mg PO Q4H PRN fever or pain 04/08/23 05/14/24 History albuterol sulfate 2.5 mg/3 mL 2.5 mg continuous nebulization Q6H 04/08/23 05/14/24 History (0.083 %) solution for nebulization PRN shortness of breath or wheezing carbamazepine 200 mg tablet 400 mg PO 0800,199904/08/23 05/14/24 History chlorpromazine 10 mg tablet 20 mg PO 0800 04/08/23 05/14/24 History chlorpromazine 25 mg tablet 25 mg PO 1600 04/08/23 05/14/24 History chlorpromazine 50 mg tablet 150 mg PO 199904/08/23 05/14/24 History clonidine HCl 0.2 mg tablet 0.2 mg PO .0800,1200, 199904/08/23 05/14/24 History divalproex 250 mg tablet,delayed 250 mg PO Q12H 04/08/23 05/14/24 History release divalproex 500 mg tablet,delayed 500 mg PO QAM 04/08/23 05/14/24 History release famotidine 20 mg tablet 20 mg PO 1200 04/08/23 05/14/24 History furosemide 20 mg tablet 20 mg PO BID 04/08/23 05/14/24 History gabapentin 100 mg capsule 100 mg PO TID 04/08/23 05/14/24 History levothyroxine 150 mcg tablet 150 mcg PO DAILY 04/08/23 05/14/24 History lithium carbonate 300 mg capsule 300 mg PO BEDTIME 04/08/23 05/14/24 History lorazepam 2 mg tablet 2 mg PO BEDTIME 04/08/23 05/14/24 History montelukast 10 mg tablet 10 mg PO 199904/08/23 05/14/24 History risperidone 1 mg tablet 1 mg PO TID 04/08/23 05/14/24 History sennosides 8.6 mg tablet (senna) 17.2 mg PO BID 04/08/23 05/14/24 History vilazodone 20 mg tablet 30 mg PO .morning 04/08/23 05/14/24 History vitamin B complex 1 cap PO .qd 04/08/23 05/14/24 History guaifenesin 400 mg tablet (Chest 400 mg PO BID PRN Congestion #0 04/11/23 05/14/24 Rx Congestion Relief) tabs benzoyl peroxide 5 % topical 1 applic topical .QHS 05/14/24 05/14/24 History cleanser clindamycin phosphate 1 % lotion 1 applic topical QAM 05/14/24 05/14/24 History divalproex 500 mg tablet,delayed 1,500 mg PO .qhs 05/14/24 05/14/24 History release (Depakote) Allergies Allergy/AdvReac Type Severity Reaction Status Date / Time naproxen AdvReac Verified 04/08/23 14:43 Exam Narrative Exam Narrative: General: Patient is laying in bed. He is obtunded until noxious stimuli is applied. He has difficulty communicating. HEENT: Wearing BiPAP mask. Redundant neck tissue. Chest/Thorax: No asymmetry noted. Respiratory: Diffuse rhonchi bilaterally. In respiratory distress with tachypnea in the 30s. Cardiac: Tachycardic with a regular rhythm Abdomen: Increased abdominal adiposity Vascular/Extremities: Dorsalis pedis pulses are present bilaterally 1/4 Musculoskeletal: Patient is able to spontaneously move all 4 extremities Neurologic: No seizure activity identified Psych: As above, patient is obtunded but responds to noxious stimuli Skin: Patient appears to have cyanosis of the upper extremities Constitutional Vital Signs, click to edit/add: Last Vital Signs Temp 99.5 F 05/14/24 16:00 Pulse 13 L 05/14/24 17:02 Resp 22 H 05/14/24 15:31 BP 96/64 05/14/24 15:49 Pulse Ox 89 L 05/14/24 17:02 O2 Del Method Nasal Cannula 05/14/24 12:50 O2 Flow Rate 3 05/14/24 12:50 FiO2 100 05/14/24 17:02 Results Laboratory Findings ABG, PT/INR, D-dimer: ABG ABG pH 7.297 (7.350-7.450) L* 05/14/24 16:50 ABG pCO2 52.9 mmHg (35.0-45.0) H* 05/14/24 16:50 ABG pO2 58.3 mmHg (80.0-100.0) L* 05/14/24 16:50 ABG O2 Saturation 87.8 % 05/14/24 16:50 Abnormal lab findings: Abnormal Labs 05/14/24 05/14/24 05/14/24 10:48 11:02 13:54 WBC 14.5 H RBC 3.67 L Hgb 12.6 L Hct 38.7 L MCV 105.4 H MCH 34.3 H Neut % (Auto) 81.5 H Lymph % (Auto) 9.6 L Eos % (Auto) 0.0 L Neut # (Auto) 11.8 H [place] # (Auto) 1.1 H Abs Immat Gran (auto) 0.11 H Imm/Tot Granulo (auto) 0.8 H ABG pH ABG pCO2 ABG pO2 BUN 19.0 H Creatinine 2.21 H Est GFR ( Amer) 42 L Est GFR (Non-Af Amer) 35 L Lactate 3.6 H* 2.6 H* Urine Protein 100 A Urine WBC 0-2 A Urine Crystals Seen A Urine Casts Seen A 05/14/24 16:50 WBC RBC Hgb Hct MCV MCH Neut % (Auto) Lymph % (Auto) Eos % (Auto) Neut # (Auto) [place] # (Auto) Abs Immat Gran (auto) Imm/Tot Granulo (auto) ABG pH 7.297 L* ABG pCO2 52.9 H* ABG pO2 58.3 L* BUN Creatinine Est GFR ( Amer) Est GFR (Non-Af Amer) Lactate Urine Protein Urine WBC Urine Crystals Urine Casts Assessment and Plan Assessment and Plan (1) Aspiration pneumonia due to food (regurgitated): Assessment and Plan: 1. Aspiration pneumonia. Secondary to aspiration of food on 05/11/2024. Patient has history of aspiration. This is caused acute respiratory failure leading eventually to intubation after failing BiPAP. Recommended changing Rocephin to Zosyn for anaerobic coverage. Can continue with Levaquin for now. 2. Severe sepsis with septic shock. Patient presented with lactic acidosis. After fluids, lactate still remained elevated at 2.6. Patient's had several liters of fluid (both normal saline and LR). Preparations are being made to begin Levophed to maintain MAP greater than 65. 3. Acute hypoxic and hypercapnic respiratory failure. Secondary to aspiration pneumonia. Patient failed BiPAP requiring urgent intubation. 4. Down syndrome. Qualifiers: Laterality: bilateral Lung location: lower lobe of lung Qualified Code(s): J69.0 - Pneumonitis due to inhalation of food and vomit Plan Patient is critically ill requiring intensive care unit monitoring. Patient required urgent intubation due to fatigue in anticipation of possible emergent intubation. 40 minutes critical care time excluding time spent for intubation.
[2024-05-14] MEDS: NOREPINEPHRINE BITARTRATE/D5W 4 MG/250 ML PREMIX 30 MG IV (18:12)
[2024-05-14] MEDS: LEVOFLOXACIN IN DEXTROSE 5 % 750 MG/150 ML PREMIX 100 MG IV (18:26)
--- NOTE | 2024-05-14 18:34 | PC.NURSE ---
173 Joesph at bedside, family present, HR 113, IV inserted 22g inner forearm 173 family left the room to go to waiting area during intubation 1736 versed 4 mg IV push given per Dr Pink 174 Etomidate 10mg IV push per Dr Pink 174 patient intubated 7.5 24 at the lip, positive color change, bilateral breath sounds 1742 propofol started at 25 mcg, OG inserted 60 @ the lips 1750 contreras inserted, 10ml water in balloon 1800 tylenol suppository given for 103 degree fever
[2024-05-14] MEDS: LACTATED RINGER'S SOLUTION 1,000 ML 125 ML IV (18:45)
[2024-05-14 19:30] LABS: Allen Test POSITIVE (POSITIVE); Fractionated Inspired Oxygen 100 %; HCO3 ABG 26.7 mmol/L (22.0-26.0); O2 Mode VENT; Oxygen Saturation ABG 99.8 %; Puncture Site LB; Rate 16; Tidal Volume 400; Vent Mode A/C; pH ABG 7.345 (7.350-7.450)
[2024-05-14 19:31] LABS: Pos End Expiratory Pressure 10
--- NOTE | 2024-05-14 20:30 | P.ANBPRC_ITS ---
Anesthesia Bedside Procedure Procedural Section Pre-procedural diagnosis: Aspiration Pneumonia Written consent obtained: guardian Verification/time out: correct patient, correct site, correct procedure and time out performed Name of person performing procedure: Justin Lunsford Assistance, if any: Shonda Hill Indication procedural sedation: other ASA class: III Preparation: court recording monitor applied, pulse oximeter, supplemental O2 applied and IV secured Midazolam: IV Midazolam dose (mgs): 2 Complications: none Conclusion: patient tolerated procedure Additional Procedures Name of procedure: Right IJ Central Line Insertion Pre- procedure diagnosis: Aspiration Pneumonia Written consent: guardian Site marking: site marked Verification/time out: correct patient, correct site, correct procedure and time out performed Estimated blood loss (if any): less than 5 mls Description/Findings: Consulted for central line placement on ICU patient prior to transfer. Patients guardian (mother) at bedside and patient is intubated and sedated. Discussed risks of procedure including arterial puncture, bleeding, pneumothorax, infection. Patient positioned flat with head turned to the left. Chlorhexidine prep completed to Right IJ. Sterile gown, cap and gloves applied and patient draped with sterile technique. Ultrasound used to identify structures and patient localized with 3mL of 1% lidocaine. Venous puncture completed under ultrasound visualization. Wire threaded easily through needle using Seldinger technique. Wire visualized on ultrasound to be in RIJ. Dilator used and tripple lumen advanced easily over wire. No ectopy noted. Central line secured and x ray obtained. Upon Xray review central line pulled back and secured at 15cm. Xray was repeated and waiting official read for clear to use. Conclusion: patient tolerated procedure
[2024-05-14] MEDS: PIPERACILLIN SODIUM/TAZOBACTAM 3.375 GM in 0.9 % SODIUM CHLORIDE 50 ML IV (21:42)
--- NOTE | 2024-05-14 22:07 | PC.NURSE ---
Addendum entered by Shonda Newman 05/14/24 22:08: levophed increaed to 6 mcg and tylenol given for elevated temp 102.5 Original Note: increased levophed to 6 mcg
[2024-05-14] MEDS: PROPOFOL 1,000 MG/100 ML VIAL 35 MG IV (22:15)
[2024-05-14 22:38] LABS: Glucometer 128 mg/dL (74-106)
--- NOTE | 2024-05-27 21:05 | P.HP_ITS ---
HPI H&P: HPI History of Present Illness Chief complaint: ALTERED MENTAL STATUS, PNEUMONIA, HYPOXEMIA Narrative: The patient was transferred before seen, information obtained from chart. 33 y/o male with history of Down syndrome to ER with pneumonia. Developed SOB and cough. Low BP and hypoxia. Admitted and started antibiotics. Started levaquin and rocephin. Nursing reported worsening hypoxia and on NRB. Transitioned to vapotherm and BiPAP. Pulmonology consulted. Family reported episode of aspiration and started zosyn. [place] patient at risk for decompensation and decided to intubate. Patient intubated and arrangements made for transfer to [facility]. Transferred in critical condition. Opioid HPI Opioid Management Most Recent Pain and Opioid Data: Last Pain Scale 3 10/21/23 20:02 10/21/23 Last ORT Total Score 0 05/14/24 16:00 05/14/24 Last ORT Risk Category Low Risk 05/14/24 16:00 05/14/24 [facility] Medical History Asthma exacerbation ?J45.901 - Unspecified asthma with (acute) exacerbation (ICD-10) Pneumonia ?J18.9 - Pneumonia, unspecified organism (ICD-10) Pneumonia ?J18.9 - Pneumonia, unspecified organism (ICD-10) COVID-19 ?U07.1 - COVID-19 (ICD-10) NARINDER (obstructive sleep apnea) ?G47.33 - Obstructive sleep apnea (adult) (pediatric) (ICD-10) Down syndrome ?Q90.9 - Down syndrome, unspecified (ICD-10) Pulmonary hypertension ?I27.20 - Pulmonary hypertension, unspecified (ICD-10) Pickwickian syndrome ?E66.2 - Morbid (severe) obesity with alveolar hypoventilation (ICD-10) Chronic constipation ?K59.09 - Other constipation (ICD-10) Eczema ?L30.9 - Dermatitis, unspecified (ICD-10) Sleep apnea ?G47.30 - Sleep apnea, unspecified (ICD-10) Dyspepsia ?R10.13 - Epigastric pain (ICD-10) Obsessive compulsive disorder ?F42.9 - Obsessive-compulsive disorder, unspecified (ICD-10) Bipolar 1 disorder ?F31.9 - Bipolar disorder, unspecified (ICD-10) Hypothyroid ?E03.9 - Hypothyroidism, unspecified (ICD-10) 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, unspecified (ICD-10) ?F69 - Unspecified disorder of adult personality and behavior (ICD-10) Aspiration into airway ?T17.908A - Unspecified foreign body in respiratory tract, part unspecified causing other injury, initial encounter (ICD-10) Surgical History H/O heart surgery ?Z98.890 - Other specified postprocedural states (ICD-10) Family History Father Family history of cancer Social History Within the past year, how often did you have a drink containing alcohol: never Score interpretation: A score less than 4 is consistent with normal alcohol consumption. Smoking status: Unknown if ever smoked Non-prescribed substance use: denies use Highest level of school completed/degree received: never attended/kindergarten only Gender Identity: male Meds Home Medications and Allergies Home Medications ?Medication ?Instructions ?Recorded ?Confirmed ?Type acetaminophen 325 mg capsule 650 mg PO Q4H PRN fever or pain 04/08/23 05/14/24 History albuterol sulfate 2.5 mg/3 mL 2.5 mg continuous nebulization Q6H 04/08/23 05/14/24 History (0.083 %) solution for nebulization PRN shortness of breath or wheezing carbamazepine 200 mg tablet 400 mg PO 0800,199904/08/23 05/14/24 History chlorpromazine 10 mg tablet 20 mg PO 0800 04/08/23 05/14/24 History chlorpromazine 25 mg tablet 25 mg PO 159904/08/23 05/14/24 History chlorpromazine 50 mg tablet 150 mg PO 199904/08/23 05/14/24 History clonidine HCl 0.2 mg tablet 0.2 mg PO .0800,1200, 199904/08/23 05/14/24 History divalproex 250 mg tablet,delayed 250 mg PO Q12H 04/08/23 05/14/24 History release divalproex 500 mg tablet,delayed 500 mg PO QAM 04/08/23 05/14/24 History release famotidine 20 mg tablet 20 mg PO 1200 04/08/23 05/14/24 History furosemide 20 mg tablet 20 mg PO BID 04/08/23 05/14/24 History gabapentin 100 mg capsule 100 mg PO TID 04/08/23 05/14/24 History levothyroxine 150 mcg tablet 150 mcg PO DAILY 04/08/23 05/14/24 History lithium carbonate 300 mg capsule 300 mg PO BEDTIME 04/08/23 05/14/24 History lorazepam 2 mg tablet 2 mg PO BEDTIME 04/08/23 05/14/24 History montelukast 10 mg tablet 10 mg PO 2000 04/08/23 05/14/24 History risperidone 1 mg tablet 1 mg PO TID 04/08/23 05/14/24 History sennosides 8.6 mg tablet (senna) 17.2 mg PO BID 04/08/23 05/14/24 History vilazodone 20 mg tablet 30 mg PO .morning 04/08/23 05/14/24 History vitamin B complex 1 cap PO .qd 04/08/23 05/14/24 History guaifenesin 400 mg tablet (Chest 400 mg PO BID PRN Congestion #0 04/11/23 05/14/24 Rx Congestion Relief) tabs benzoyl peroxide 5 % topical 1 applic topical .QHS 05/14/24 05/14/24 History cleanser clindamycin phosphate 1 % lotion 1 applic topical QA 05/14/24 05/14/24 History divalproex 500 mg tablet,delayed 1,500 mg PO .qhs 05/14/24 05/14/24 History release (Depakote) Allergies Allergy/AdvReac Type Severity Reaction Status Date / Time naproxen AdvReac Verified 04/08/23 14:43 Exam Constitutional Vital Signs, click to edit/add: Last Vital Signs Temp 99.8 F 05/14/24 22:04 Pulse 77 05/14/24 22:28 Resp 16 05/14/24 20:00 BP 137/73 05/14/24 22:28 Pulse Ox 100 05/14/24 22:26 O2 Del Method Mechanical Ventilator 05/14/24 20:21 O2 Flow Rate 15 05/14/24 16:00 FiO2 80 05/14/24 20:21 Results ABG ABG results: 05/14/24 05/14/24 16:50 19:20 ABG pH 7.297 L* 7.345 L ABG pCO2 52.9 H* 49.0 H ABG pO2 58.3 L* 156.0 H ABG HCO3 25.9 26.7 H ABG O2 Saturation 87.8 99.8 ABG Base Excess -0.6 1.0 Assessment and Plan Assessment and Plan (1) Aspiration pneumonia due to food (regurgitated): Qualifiers: Laterality: bilateral Lung location: lower lobe of lung Qualified Code(s): J69.0 - Pneumonitis due to inhalation of food and vomit Plan 1. Aspiration pneumonia. 2. Severe sepsis with septic shock. 3. Acute hypoxic and hypercapnic respiratory failure. Transferred to [facility] for further treatment. Urinary Catheter Management Urinary Catheter Management Urethral: Cath placed during this visit: yes Urethral indwelling: No Insertion date: 05/14/24 Insertion time: 17:50
== END 2024-05-14 22:54 | disposition short-term general hospital (02) | DRG 871 ==
LOC: ER 14:34 → ICU 15:51
PROVIDERS: Internal Medicine; Admitting Provider Family Medicine; Emergency Provider Emergency Medicine; PCP Family Medicine; Visit Provider Family Medicine
DX: A41.9 Sepsis, unspecified organism (principal); J69.0 Pneumonitis due to inhalation of food and vomit; J96.02 Acute respiratory failure with hypercapnia; J96.01 Acute respiratory failure with hypoxia; R65.21 Severe sepsis with septic shock; E66.2 Morbid (severe) obesity with alveolar hypoventilation; Q90.9 Down syndrome, unspecified; K59.09 Other constipation; J45.909 Unspecified asthma, uncomplicated; I27.20 Pulmonary hypertension, unspecified; F31.9 Bipolar disorder, unspecified; F42.9 Obsessive-compulsive disorder, unspecified; E03.9 Hypothyroidism, unspecified; Z79.899 Other long term (current) drug therapy; Z88.6 Allergy status to analgesic agent; Z68.33 Body mass index [BMI] 33.0-33.9, adult; Z79.890 Hormone replacement therapy
CPT/HCPCS: 31720; 36415; 36600; 51702; 71045; 80048; 81001; 82805; 82948; 83605; 85025; 87040; 87804; 87811; 93005; 94002; 94640; 94660; 94761; 96365; 96366; 96368; 99285; J0330; J0456; J0696; J2250; J2543; J2704; J2919

== ENCOUNTER 2024-06-20 07:10 | Outpatient (OUT) | payer MEDICARE, MEDICAID, SELFPAY ==
[2024-06-20 09:37] LABS: Anion Gap 9.6; BUN Creatinine Ratio 4.5; Calcium 9.4 mg/dL (8.5-10.1); Carbon Dioxide 31.1 mmol/L (21.0-32.0); Chloride 105 mmol/L (98-107); Estimated GFR (African America >60 (>=60 mL/min/1.73m^2); Estimated GFR (Non-African Ame >60 (>=60 mL/min/1.73m^2); Glucose 88 mg/dL (74-106); Potassium 3.7 mmol/L (3.5-5.1); Sodium 142 mmol/L (136-145)
== END 2024-06-20 07:11 | disposition home or self-care (01) ==
LOC: LAB 07:14
PROVIDERS: PCP Family Medicine; Visit Provider Family Medicine
DX: N17.9 Acute kidney failure, unspecified (principal)
CPT/HCPCS: 36415; 80048

== ENCOUNTER 2024-06-24 06:39 | Outpatient (OUT) | payer MEDICARE, MEDICAID, SELFPAY ==
[2024-06-24 07:40] LABS: Basophils Percent Auto 0.6 % (0.2-2.0); Eosinophils Absolute Auto 0.1 10^3/uL (0.0-0.7); Eosinophils Percent Auto 1.5 % (0.9-7.0); Hematocrit 36.2 % (42.0-54.0); Hemoglobin 11.8 g/dL (14.0-18.0); Immature Granulocytes Abs Auto 0.01 10^3/uL (0.00-0.03); Immature Granulocytes Pct Auto 0.2 % (0.0-0.5); Lymphocytes Absolute Auto 1.6 10^3/uL (1.2-3.8); Lymphocytes Percent Auto 33.8 % (20.5-60.0); Mean Corpuscular HGB Conc 32.6 g/dL (29.9-35.2); Mean Corpuscular Hemoglobin 33.8 pg (25.9-34.0); Mean Corpuscular Volume 103.7 fL (80.0-94.0); Mean Platelet Volume 9.7 fL (9.5-13.5); Monocytes Absolute Auto 0.2 10^3/uL (0.3-0.8); Monocytes Percent Auto 4.7 % (1.7-12.0); Neutrophils Absolute Auto 2.8 10^3/uL (1.4-6.5); Neutrophils Percent Auto 59.2 % (43.0-75.0); Platelet Count 224 10^3/uL (150-450); Red Blood Count 3.49 10^6/uL (4.70-6.10); Red Cell Distribution Width 13.4 % (11.0-15.0); White Blood Count 4.7 10^3/uL (4.0-11.0)
[2024-06-24 08:35] LABS: Anion Gap 12.1; BUN Creatinine Ratio 6.2; Calcium 9.1 mg/dL (8.5-10.1); Carbon Dioxide 29.3 mmol/L (21.0-32.0); Chloride 110 mmol/L (98-107); Estimated GFR (African America >60 (>=60 mL/min/1.73m^2); Estimated GFR (Non-African Ame >60 (>=60 mL/min/1.73m^2); Glucose 85 mg/dL (74-106); Potassium 4.4 mmol/L (3.5-5.1); Sodium 147 mmol/L (136-145)
== END 2024-06-24 06:40 | disposition home or self-care (01) ==
LOC: LAB 06:41
PROVIDERS: PCP Family Medicine; Visit Provider Family Medicine
DX: N17.9 Acute kidney failure, unspecified (principal)
CPT/HCPCS: 36415; 80048; 85025

== ENCOUNTER 2024-07-04 07:05 | Outpatient (OUT) | payer MEDICARE, MEDICAID, SELFPAY ==
[2024-07-05 04:07] LABS: Vitamin B12 426 pg/mL (232-1245)
== END 2024-07-04 07:06 | disposition home or self-care (01) ==
LOC: LAB 07:05
PROVIDERS: PCP Family Medicine; Visit Provider Family Medicine
DX: D64.9 Anemia, unspecified (principal); K59.00 Constipation, unspecified; R79.9 Abnormal finding of blood chemistry, unspecified
CPT/HCPCS: 36415; 82607; 82728; 82746; 83540

== ENCOUNTER 2024-07-30 06:38 | Outpatient (OUT) | payer MEDICARE, MEDICAID, SELFPAY ==
--- OUTSIDE RECORDS SUMMARY | 2023-08-25 09:38 | XMS_ITS ---
Author Organization The [facility] in [place] Address [address] [place] [address] Care Team Providers Care Talent Acquisition Consultant Name Role Phone None, Unknown or Primary Care Provider Unavailab Iftikhar Thompson Unavailable [phone] REASON FOR VISIT Vilazodone PA Encounters Encounter Location Date Provider Diagnosis [facility] [address] [place] [address] 08/25/2023 Iftikhar Kemp Plan Of Treatment No Information Progress Notes * Willian BERNABE GDOB:[birth year] (33 yo M)Acc No.[id number]:08/25/2023 Patient: Trae JOSIANETraeWillian :1990 A ge:33 Y S ex:Male Address:Unknown, [place] [id number] * true * Date: Generated for Ele orta/Jeet/eTransmitting on: 0 07/23/2024 12:37 PM EDT
--- OUTSIDE RECORDS SUMMARY | 2024-05-22 04:30 | XMS_ITS ---
Author Organization [facility] Address [address] [place] [address] Care Team Providers Care Healthcare Architect Name Role Phone Dr. Marcial Middleton Primary Care Provider [phone] Vera Georges [phone] REASON FOR VISIT 6 month f/u Encounters Encounter Location Date Provider Diagnosis [facility] [address] [place] [address] 05/22/2024 Vera Leahy Plan Of Treatment Next Appt Details Provider Name:Samra Gonzalez, 07/30/2024 10:00:00 AM, [address], [place], [address], Provider Name:Kmi Ba, 08/08/2024 01:30:00 PM, [address], [place], [address], Provider Name:Chichi Bone, 11/06/2024 01:00:00 PM, [address] [place], [address], Provider Name:Samra Gonzalez, 11/08/2024 09:30:00 AM, [address] [place], [address], Progress Notes * FAHAD BERNABEDOB:1990 (33 yo M)Acc No.[id number]:05/22/2024 Patient: FAHAD CARBAJAL Provider: Santiago Leahy :1990 A ge:33 Y S ex:Male Date:05/22/2024 Address:[id number] Pcp:Dr. Marcial Middleton Subjective: * Chief Complaints: * 1 . 6 month f/u. * Medical History: Objective: * Vitals: Assessment: Plan: * Treatment: * Images: * Electronic signature of Karime Leahy on 07/23/2024 at 12:37 PM EDT Sign off status: Pending * Provider: Santiago Leahy Date: 0 05/22/2024 Generated for Ele orta/Jeet/Blu on: 0 07/23/2024 12:37 PM EDT
--- OUTSIDE RECORDS SUMMARY | 2024-06-06 04:30 | XMS_ITS ---
Author Organization [facility] es Address [address] [place] [address] Care Team Providers Care Profile Shaper Operator Name Role Phone Dr. Marcial Middleton Primary Care Provider Samra Diaz Unavailable [phone] REASON FOR VISIT FILLING Encounters Encounter Location Date Provider Diagnosis [facility] [address] [place] [address] 06/06/2024 Samra Eugene Plan Of Treatment Next Appt Details Provider Name:Samra Eugene, 07/30/2024 10:00:00 AM, [address], [place], [address], Provider Name:Kim Ba, 08/08/2024 01:30:00 PM, [address], [place], [address], Provider Name:Chichi Bone, 11/06/2024 01:00:00 PM, [address] [place], [address], Provider Name:Samra Eugene, 11/08/2024 09:30:00 AM, [address] [place], [address], Progress Notes * FAHAD BERNABEDOB:1990 (33 yo M)Acc No.[id number]:06/06/2024 Patient: FAHAD CARBAJAL Provider: Clay EUGENE DDS :1990 A ge:33 Y S ex:Male Date:06/06/2024 Address:[address] [place], [place] [id number] Pcp:Dr. Marcial Middleton Subjective: * Chief Complaints: * 1 . FILLING. * Medical History: Objective: * Vitals: Assessment: Plan: * Treatment: * Images: * Electronic signature of Margy Eugene DDS on 07/23/2024 at 12:37 PM EDT Sign off status: Pending * Provider: Clay EUGENE DDS Date: 06/06/2024 Generated for Ele orta/Jeet/Georgeitting on: 07/23/2024 12:37 PM EDT
--- OUTSIDE RECORDS SUMMARY | 2024-06-07 09:30 | XMS_ITS ---
Author Organization [facility] es Address [address] [place] [address] Care Team Providers Care Mandrel Press Hand Name Role Phone Dr. Marcial Middleton Primary Care Provider [phone] Samra Diaz Unavailable [phone] REASON FOR VISIT FILLING Encounters Encounter Location Date Provider Diagnosis [facility] [place] [address] 06/07/2024 Samra Eugene Plan Of Treatment Next Appt Details Provider Name:Samra Eugene, 07/30/2024 10:00:00 AM, [address], [place], [address], Provider Name:Kim Ba, 08/08/2024 01:30:00 PM, [address], [place], [address], Provider Name:Chichi Bone, 11/06/2024 01:00:00 PM, [address] [place], [address], Provider Name:Samra Eugene, 11/08/2024 09:30:00 AM, [address] [place], [address], Progress Notes * FAHAD BERNABEDOB:1990 (33 yo M)Acc No.[id number]:06/07/2024 Patient: FAHAD CARBAJAL Provider: Clay EUGENE DDS :1990 A ge:33 Y S ex:Male Date:06/07/2024 Address:[address] [place], [place] [address]ON [facility], [id number] Pcp:Dr. Marcial Middleton Subjective: * Chief Complaints: * 1 . FILLING. * Medical History: Objective: * Vitals: Assessment: Plan: * Treatment: * Images: * Electronic signature of Margy Eugene DDS on 07/23/2024 at 12:37 PM EDT Sign off status: Pending * Provider: Clay EUGENE DDS Date: 06/07/2024 Generated for Ele orta/Jeet/Georgeitting on: 07/23/2024 12:37 PM EDT
--- OUTSIDE RECORDS SUMMARY | 2024-07-23 12:37 | XMS_ITS | Clinical Summary ---
Author Organization [facility] Address [address] [place] [address] Care Team Providers Care Religious Leader Name Role Phone Iftikhar Kemp DO Primary Care Provider [phone] Allergies Active Allergy Reactions Criticality Noted Date Comments Naproxen Hives Low 01/06/2018 Medications B Complex Vitamins (B COMPLEX 100 PO) Take by mouth. Active CARBAMAZEPINE PO Take 400 mg by mouth 2 times daily. Active chlorproMAZINE 10 MG Tab Take 50 mg by mouth 3 times daily. Active clindamycin 1 % Solution Apply 1 Application topically 2 times daily. use thin film on affected area Active cloNIDine 0.2 MG Tab tablet Take 0.2 mg by mouth 3 times daily. Active divalproex [address] tablet EC/DR Take 250 mg by mouth 2 times daily. Active docusate 100 MG Cap capsule Take 100 mg by mouth 2 times daily. Active faMOTIdine 20 MG Tab tablet Take 20 mg by mouth 2 times daily. Active gabapentin 100 MG Cap capsule Take 100 mg by mouth 3 times daily. Active levothyroxine 125 MCG Tab tablet Take 125 mcg by mouth daily. Active lithium 300 MG Cap Take 300 mg by mouth 3 times daily. Active LORazepam 1 MG Tab tablet Take 1 mg by mouth every 6 hours as needed for Anxiety. Active Benzoyl Peroxide (PANOXYL) 10 % Bar Apply topically. Act bill risperiDONE 1 MG Tab tablet Take 1 mg by mouth 3 times daily. Active Vilazodone HCl (VIIBRYD) 20 MG Tab Take 30 mg by mouth. Active divalproex [address] tablet EC/DR Take 1,000 mg by mouth at bedtime. Active benzonatate 100 MG Cap capsule Take 1 capsule by mouth 3 times daily as needed for Cough. 21 capsule 8 Active predniSONE 10 MG Tab tablet 4 tabs po daily x 3 days, 3 tabs po daily x 3 days, 2 tabs po daily x 3 days, 1 tab po daily x 3 days, then discontinue 30 tablet 8 Active Active Problems Problem Noted Date Diagnosed Date Seizure 01/07/2018 Assessment & Plan (01/07/2018 12:47 PM EST): Resume home medications Follow up after discharged with PCP Hypothyroidism 01/07/2018 Assessment & Plan (01/07/2018 12:47 PM EST): Resume home medications Follow up after discharged with PCP Down syndrome 01/07/2018 Assessment & Plan (01/07/2018 12:48 PM EST): Resume home therapies Follow up after discharged with PCP Leukocytosis 01/07/2018 Assessment & Plan (01/07/2018 12:48 PM EST): Improving White count= 13.7 on admission, = 12.5 today Empiric antibiotics ordered Blood and sputum cultures ordered and pending Monitor VS and CBC as ordered Pneumonia 01/06/2018 Assessment & Plan (01/07/2018 12:46 PM EST): Systemic steroids, empiric antibiotics and nebulizer's ordered Will check CRP, sed rate, legionella, strep and sputum cultures Blood cultures pending CT chest ordered Repeat Chest XR in AM Obesity: body mass index of 40.0-49.9 01/06/2018 Assessment & Plan (01/07/2018 12:49 PM EST): Diet and lifestyle modifications strongly encouraged Follow up after discharged with PCP for further treatment options Social History Tobacco Use Types Packs/Day Years Used Date Smoking Tobacco: Never Smokeless Tobacco: Never Alcohol Use Standard Drinks/Week Comments No 0 (1 standard drink = 0.6 oz pur e alcohol) Sex and Gender Information Value Date Recorded Sex Assigned at Not on file Legal Sex Male 4:59 PM EST Gender Identity Male 01/06/2018 10:47 AM EST Sexual Orientation Not on file Last Filed Vital Signs Vital Sign Reading Time Taken Comments Blood Pressure 124/68 05/27/2023 3:00 PM EDT Pulse 75 05/27/2023 3:00 PM EDT Temperature 37 C (98.6 F) 05/27/2023 2:16 PM EDT Respiratory Rate 18 05/27/2023 2:49 PM EDT Oxygen Saturation 96% 05/27/2023 3:00 PM EDT Inhaled Oxygen Concentration - - Weight 96.2 kg (212 lb 1.3 oz) 01/08/2018 3:51 A M EST Height 144.8 cm (4' 9 ) 05/27/2023 2:17 PM EDT Body Mass Index 45.89 01/06/2018 4:24 PM EST Plan of Treatment Health Maintenance Due Date Last Done Comments HEPATITIS C VIRUS SCREENING 1990 HIV SCREENING DISCUSSION 08/22/2007 HEP B VACCINE (1 of 3 - 19+ 3-dose series) 08/22/2011 TETANUS 07/13/2015 07/12/2005 TSH 01/06/2019 01/06/2018 COVID-19 VACCINE ( season) 2023 INFLUENZA VACCINE (Season Ended) 2024 11/20/2019, 11/22/2017, 12/07/2016, Additional history exists TDAP (ADULT) Completed 07/12/2005 HPV VACCINE Aged Out No longer eligi ble based on patient's age to complete this topic PNEUMOCOCCAL VACCINE SERIES Aged Out No longer eligible based on patient's age to complete this topic Procedures Procedure Name Priority Date/Time Associated Diagnosis Comments ORDERS (OUTSIDE) Routine 06/17/2024 8:55 AM EDT CBC, EDIF, PLATELET Routine 06/17/2024 5 :24 AM EDT ORDERS (SCAN) Routine 06/17/2024 2:17 AM EDT BASIC METABOLIC PANEL Routine 06/13/2024 6:08 AM EDT ORDERS (SCAN) Routine 06/13/2024 3:38 AM EDT CBC, EDIF, PLATELET Routine 06/10/2024 6 :05 AM EDT BASIC METABOLIC PANEL Routine 06/10/2024 6:05 AM EDT ORDERS (SCAN) Routine 06/10/2024 3:14 AM EDT TSH STAT 01/06/2018 1:20 PM EST from Last 3 Months or Most Recently Relevant to Health Maintenance Results * ORDERS (OUTSIDE) (06/17/2024 8:55 AM EDT) Anatomical Region Laterality Modality Other Mirza Bustillos MD PROC - OPERATIVE Final Result * (ABNORMAL) CBC, EDIF, PLATELET (06/17/2024 5:24 AM EDT) Only the most recent of2 resultswithin the time period is included. WBC (WHITE BLOOD COUNT) 4.7 3.6 - 11.0 10*3/uL [address] RBC 3.53(L) 4.0 - 6.1 10*6/uL [address] HEMOGLOBIN (HGB) 11.7(L) 14.0 - 18.0 G/DL [address] HEMATOCRIT (HCT) 36.4(L) 42.0 - 52.0 % [address] Mean Cell Volume 103.2(H) 80.0 - 100.[address] Mean Cell HGB 33.2 26.0 - 35.[address] Mean Cell HGB Concentration 32.2 27.0 - 37.0 G/DL [address] RBC Distribution 15.1(H) 11.5 - 14.5 % [address] PLATELET COUNT 197 130 - 400 10*3/uL [address] Mean Platelet Volume 7.6 7.4 - 11.[address] DIFFERENTIAL TYPE AUTO DIFF % GA [address] NEUTROPHILS 58.4 37.0 - 75.0 % [address] LYMPHOCYTE 33.3 20.0 - 55.0 % [address] MONOCYTE % 6.3 0.0 - 10.0 % [address] EOSINOPHIL % 1.2 0.0 - 11.0 % [address] BASOPHIL % 0.8 0.0 - 2.0 % [address] Absolute Neutrophil Count 2.7 1.4 - 6.5 10*3/uL [address] LYMPHOCYTES, ABSOLUTE 1.6 1.2 - 3.4 10*3/uL [address] MONOCYTES, ABSOLUTE 0.3 0.0 - 0.7 10*3/uL [address] ABSOLUTE EOSINOPHIL COUNT 0.1 0.0 - 0.7 10*3/uL [address] ABSOLUTE BASOPHIL COUNT 0.0 0.0 - 0.2 10*3/uL [address] Comment:Testing performed at [place], [place] [address] 06/17/2024 5:24 AM EDT 06/17/2024 6:25 AM EDT us Mirza Bustillos MD HEMATOLOGY ORDERABLES Final Resu lt [address] [address] * ORDERS (SCANNED) (06/17/2024 2:17 AM EDT) Anatomical Region Laterality Modality Other us Mirza Bustillos MD PROC - OPERATIVE Final Result * (ABNORMAL) BASIC METABOLIC PANEL (06/13/2024 6:08 AM EDT) Only the most recent of2 resultswithin the time period is included. Glucose 96 70 - 100 MG/DL [address] Comment: NORMAL <100 mg/dL PREDIABETES 101-126 mg/dL DIABETES 126 mg/dL or higher BUN 3(L) 7 - 20 MG/DL [address] CREATININE SERUM 0.90 0.7 - 1.2 MG/DL [address] SODIUM 143 137 - 145 MMOL/L [address] Potassium 3.7 3.5 - 5.1 MMOL/L [address] CHLORIDE 111(H) 98 - 107 MMOL/L [address] Comment:Please note: Triglyc eride levels of 600mg/dL or higher may positively bias chloride results by approximately 2.1 mmol CARBON DIOXIDE (CO2) 30 22 - 30 MMOL/L [address] ANION GAP 2(L) 8 - 16 MMOL/L [address] CALCIUM 9.0 8.4 - 10.2 MG/DL [address] ESTIMATED GFR, NON AMER 105 ml/min/1. 73sq.m [address] ESTIMATED GFR, 127 ml/min/1. 73sq.m [address] GFR COMMENT Average GFR for 30-39 years old = 107. [address] Comment: Chronic Kidney disease, GFR = <60. Kidney failure, GFR = <15. The GFR estimate is not adjusted for extreme body surface area or acute process, nor has it been validated for women or ethnic groups other than and . Testing performed at [place], [place] [address] 06/13/2024 6:08 AM EDT 06/13/2024 6:42 AM EDT us Mirza Bustillos MD CHEMISTRY ORDERABLES Final Resul t [address] [address] * ORDERS (SCANNED) (06/13/2024 3:38 AM EDT) Anatomical Region Laterality Modality Other us Mirza Bustillos MD PROC - OPERATIVE Final Result * ORDERS (SCANNED) (06/10/2024 3:14 AM EDT) Anatomical Region Laterality Modality Other us Mirza Bustillos MD PROC - OPERATIVE Final Result * TSH (01/06/2018 1:20 PM EST) TSH 0.994 0.46 - 4.68 uIU/ML [address] Comment:Testing performed at [place], [place] [address] 01/06/2018 1:20 PM EST 01/06/2018 3:00 PM EST Naida Edwards PA-C ENDOCRINOLOGY Final Resul t [address] [address] from Last 3 Months or Most Recently Relevant to Health Maintenance Insurance MEDICAID MEDICARE A AND B Advance Directives For more information, please contact: [phone] (7:30 AM - 6PM [facility], Monday-Monday) * Full Code (Latest Code Status on File) Date Activated Date Inactivated Comments 01/06/2018 4:10 PM Care Teams Religious Leader Relationship Specialty Start Date End Date Iftikhar Kemp DO PCP - General Family Medicine 05/27/23
--- OUTSIDE RECORDS SUMMARY | 2024-07-23 12:37 | XMS_ITS | Patient Health Record ---
Author Organization [facility] in [place] Address [address] [place] [address] Care Team Providers Care Cyber Systems Operations Specialist Name Role Phone None, Unknown or Primary Care Provider Unavailab Iftikhar Thompson Unavailable [phone] Results Component Value Reference Range Notes BLOOD GASES BTY Reviewed date:05/15/2024 06:58:52 AM Interpretation: Performing Lab: Notes/Report: [facility] , pH ABG 7.345 7.350-7.450 ABG PCO2 49.0 35.0-45.0 mmHg PO2 ABG 156.0 80.0-100.0 mmHg HCO3 ABG 26.7 22.0-26.0 mmol/L Base Excess ABG 1.0 -2.0-2.0 mmol/L Oxygen Saturation ABG 99.8 Addison Test POSITIVE POSITIVE O2 Mode VENT Fractionated Inspired Oxygen 100 Puncture Site LB Vent Mode A/C Rate 16 Tidal Volume 400 Pos End Expiratory Pressure 10 Performing Lab: see note ML - [facility] LB Reason For Referral No Information Problems Problem Type SNOMED Code ICD Code Onset Dates Problem Status W/U Status Risk Notes Problem 35370982 Moderate intellectual disabilities (F71) Active confirmed Problem 352095393 Epilepsy, unspecified, not intractable, without status epilepticus (G40.909) Active confirmed Problem 93884591 Acute and chroni c respiratory failure with hypoxia (J96.21) Active confirmed Problem 1251301664305 Acute and chroni c respiratory failure with hypercapnia (J96.22) Active confirmed Problem 576104416 Pressure ulcer o f sacral region, unspecified stage (L89.159) Active confirmed Problem 39165269 Down syndrome, unspecified (Q90.9) Active confirmed Problem 70626154 Dysphagia, unspecified (R13.10) Active confirmed Problem 112765253 Acquired hypothyroidism (E03.9) Active confirmed Problem 18486596 Down syndrome (Q90.9) Active confirmed Encounters Encounter Location Date Provider Diagnosis [facility] Programs Department [address] [place] [address] 08/25/2023 Iftikhar Kemp Plan Of Treatment No Information Insurance Providers Payer Name Payer Address Payer Phone Subscriber Number Group Number Insured Name Patient Relationship to Insured Coverage Start Date Coverage End Date [place] [address] [place] [address] [id number] Willian Arnold Self - patient is the insured [place]ICAID [place] ONLY [address] OFFICE OF [place], [place] [id number] Willian Arnold Self - patient is the insured 2
--- OUTSIDE RECORDS SUMMARY | 2024-07-23 12:38 | XMS_ITS | Patient Health Record ---
Author Organization [facility] Address [address] [place] [address] Care Team Providers Care Visual Effects Editor Name Role Phone Dr. Marcial Middleton Primary Care Provider Samra Diaz Unavailable Helen Barragan Unavailable [phone] Vera Leahy Unavailable [phone] Chichi Bone Unavailable [phone] Reason For Referral No Information Encounters Encounter Location Date Provider Diagnosis [facility] [address] [place] [address] 08/03/2023 Helen Barragan Encounter for dental examination and cleaning with abnormal findings Z01.21 ; Disturbances in tooth eruption K00.6 ; Other dental procedure status Z98.818 ; Acute gingivitis, plaque induced K05.00 and Dental caries on pit and fissure surface penetrating into dentin K02.52 [facility] [address] [place] [address] 11/07/2023 Samra Gonzalez Dental caries on pit and fissure surface penetrating into dentin K02.52 [facility] [address] [place] [address] 02/21/2024 Samra Gonzalez Dental caries on pit and fissure surface penetrating into dentin K02.52 [facility] [address] [place] [address] 11/21/2023 Vera Leahy Acute gingivitis, plaque induced K05.00 [facility] [address] [place] [address] 08/03/2023 [facility] [address] [place] [address] 02/22/2024 Samra Gonzalez Assessments Encounter Date Diagnosis (ICD Code) Assessment Notes Treatment Notes Treatment Clinical Notes Section Notes 08/03/2023 Encounter for dental examination and cleaning with abnormal findings (ICD-10 - Z01.21) 11/07/2023 Dental caries on pit and fissure surface penetrating into dentin (ICD-10 - K02.52) 11/21/2023 Acute gingivitis, plaque induced (ICD-10 - K05.00) 02/21/2024 Dental caries on pit and fissure surface penetrating into dentin (ICD-10 - K02.52) 08/03/2023 Disturbances in tooth eruption (ICD-10 - K00.6) 08/03/2023 Other dental procedure status (ICD-10 - Z98.818) 08/03/2023 Acute gingivitis, plaque induced (ICD-10 - K05.00) 08/03/2023 Dental caries on pit and fissure surface penetrating into dentin (ICD-10 - K02.52) Plan Of Treatment Next Appt Details Provider Name:Samra Gonzalez, 07/30/2024 10:00:00 AM, [address] [place], [address], Provider Name:Kim Ba, 08/08/2024 01:30:00 PM, [address] [place], [address], Provider Name:Chichi Bone, 11/06/2024 01:00:00 PM, [address] [place], [address], Provider Name:Samra Gonzalez, 11/08/2024 09:30:00 AM, [address] [place], [address], Insurance Providers Payer Name Payer Address Payer Phone Subscriber Number Group Number Insured Name Patient Relationship to Insured Coverage Start Date Coverage End Date DENTAL MEDICAID [facility] [address] [place] [address] [phone] [id number] FAHAD BERNABE Self - patient is the insured 4
--- OUTSIDE RECORDS SUMMARY | 2024-07-23 12:38 | XMS_ITS | Clinical Summary ---
Author Organization [facility] Address [address] [place] [address] Care Team Providers Care Automotive Glass Installer Name Role Phone Iftikhar Kemp DO Primary Care Provider Allergies Active Allergy Reactions Criticality Noted Date Comments Naproxen Hives Low 01/06/2018 Medications b complex vitamins capsule Take 1 capsule by mouth daily . Active benzoyl peroxide 5 % gel Apply topically daily . Active carBAMazepine (TEGretol XR) 400 MG 12 hr tablet Take 400 mg by mouth 2 (two) times a day . Active chlorproMAZINE (THORAZINE) 25 MG tablet Take 25 mg by mouth 2 (two) times a day . Active chlorproMAZINE (THORAZINE) 50 MG tablet Take 150 mg by mouth nightly . Active cloNIDine HCl (CATAPRES) 0.2 MG tablet Take 0.2 mg by mouth 3 (three) times a day . Active divalproex (DEPAKOTE) 250 MG delayed release (DR) tablet Take 250 mg by mouth 2 (two) times a day . Active divalproex (DEPAKOTE) 500 MG delayed release (DR) tablet Take 500 mg by mouth 3 (three) times a day 2 tablets at 8pm . Active famotidine (PEPCID) 20 MG tablet Take 20 mg by mouth daily . Active gabapentin (NEURONTIN) 100 MG capsule Take 100 mg by mouth 3 (three) times a day . Active levothyroxine (SYNTHROID, LEVOTHROID) 150 MCG tablet Take 150 mcg by mouth once daily . Active lithium 150 MG capsule Take 300 mg by mouth nightly . Active LORazepam (ATIVAN) 1 MG tablet Take 2 mg by mouth nightly . Active montelukast (SINGULAIR) 10 mg tablet Take 10 mg by mouth nightly . Active risperiDONE (RISPERDAL) 1 MG tablet Take 1 mg by mouth 3 (three) times a day . Active acetaminophen (TYLENOL) 325 MG tablet Take 650 mg by mouth every 6 (six) hours as needed for pain . Active albuterol (PROVENTIL) 2.5 mg /3 mL (0.083 %) nebulizer solution Take 2.5 mg by nebulization every 6 (six) hours as needed for wheezing . Active vilazodone (VIIBRYD) 20 mg tablet Take 20 mg by mouth daily Take 1 and 1/2 tablets by mouth daily . Active guaiFENesin (MUCINEX) 600 mg 12 hr tablet Take 600 mg by mouth 2 (two) times a day Take one table by mouth twice daily . Active furosemide (LASIX) 20 MG tablet Take 1 (one) tablet (20 mg total) by mouth 2 (two) times a day . 60 tablet 1 0 Active Linzess 72 mcg cap Take 1 capsule by mouth every morning . 2 Active benzonatate (TESSALON) 100 MG capsule Take 100 mg by mouth 3 (three) times a day as needed . 8 Active Active Problems Problem Noted Date Diagnosed Date Esophageal dysphagia 05/27/2021 Overview (05/27/2021): Added automatically from request for surgery [id number] Food bolus obstruction of intestine 05/27/2021 Overview (05/27/2021): Added automatically from request for surgery [id number] Pneumonia due to COVID-19 virus 05/03/2021 Acute metabolic encephalopathy 02/26/2019 Assessment & Plan (02/26/2019 6:00 PM EST): 1. Mostly from hypoxia and hypercarbia from [...] the setting of her clinical neuropsychiatric event. Respiratory failure 02/23/2019 Family History Medical History Relation Comments Heart disease Neg Hx Social History Tobacco Use Types Packs/Day Years Used Date Smoking Tobacco: Never Smokeless Tobacco: Never Alcohol Use Standard Drinks/Week Comments Never 0 (1 standard drink = 0.6 oz pur e alcohol) AUDIT-C Answer Date Recorded Frequency of Alcohol Consumption Never 02/23/2019 Average Number of Drinks Not on file 020 Frequency of Binge Drinking Not on file 02/13 Sex and Gender Information Value Date Recorded Sex Assigned at Not on file Legal Sex Male 3:27 PM EDT Gender Identity Male 02/23/2019 3:13 PM EST Sexual Orientation Choose not to disclose 2019 3:13 PM EST Last Filed Vital Signs Vital Sign Reading Time Taken Comments Blood Pressure 114/39 06/03/2021 9:11 AM EDT Pulse 78 06/03/2021 9:11 AM EDT Temperature 36.7 C (98 F) 06/03/2021 7:23 AM EDT Respiratory Rate 16 06/03/2021 9:11 AM EDT Oxygen Saturation 98% 06/03/2021 9:11 AM EDT Inhaled Oxygen Concentration - - Weight 70.3 kg (155 lb) 06/03/2021 7:23 AM EDT Height 152.4 cm (5') 06/03/2021 7:23 AM EDT Body Mass Index 30.27 06/03/2021 7:23 AM EDT Plan of Treatment Health Maintenance Due Date Last Done Comments Wellness Visit 08/22/1995 Depression Screening/Follow-Up (PHQ-2/9) 2004 HIV Screening 08/22/2007 Hepatitis C Screening 2010 COVID-19 Vaccine ( season) 2023 03/17/2020, 02/25/2020 Influenza Vaccine (Season Ended) 2024 12/09/2020, 11/20/2019, 12/07/2018, Additional history exists Tetanus: Every 10yrs 10/04/2028 10/04/2018, 10/01/19 09 Pneumococcal Vaccine: Ped or At-Risk Aged Out 11/27/2018 No longer eligible based on patient's age to complete this topic Insurance MEDICAID [place] Advance Directives For more information, please contact: [phone] Documents on File Type Date Recorded Patient Edge Inker Heels Expl anation Guardianship Papers 07/08/2020 * Full Code (Latest Code Status on File) Date Activated Date Inactivated Comments 05/03/2021 12:29 AM 05/06/2021 7:05 PM * Full Code - Unverified Date Activated Date Inactivated Comments 02/23/2019 9:21 PM 05/02/2021 12:30 PM Care Teams Automotive Glass Installer Relationship Specialty Start Date End Date Iftikhar Kemp DO [facility] [place] [address] PCP - General Endocrinology/Metabolism 02/23/19
--- OUTSIDE RECORDS SUMMARY | 2024-07-23 12:38 | XMS_ITS | Referral Summary ---
Author Organization [facility] Address [address] [place] [address] Care Team Providers Care Aircraft Design Engineer Name Role Phone Unavailable Primary Care Provider Unavailabl e Social History Tobacco Use Types Packs/Day Years Used Date Smoking Tobacco: Never Assessed [place] Safety & Environment Answer Date Rec orded Fear of Current or Ex-Partner Not on file Emotionally Abused Not on file 04/06/2023 Physically Abused Not on file 04/06/2023 Sexually Abused Not on file 04/06/2023 Physically or Sexually Abused Not on file Sex and Gender Information Value Date Recorded Sex Assigned at Not on file Gender Identity Not on file Sexual Orientation Not on file Plan of Treatment Not on file
--- OUTSIDE RECORDS SUMMARY | 2024-07-23 12:38 | XMS_ITS | Clinical Summary ---
Author Organization [facility] Address [address] [place] [address] Care Team Providers Care Mold Laminator Name Role Phone Iftikhar Kemp MD Primary Care Provider [phone] Iftikhar Kemp MD Unavailable [phone] Allergies No known active allergies Medications b complex vitamins capsule Take 1 capsule by mouth Daily Active carBAMazepine (TEGretol) 200 MG tablet TAKE 2 TABLETS BY MOUTH TWICE DAILY TEGRETOL 5 Active chlorproMAZINE (Thorazine) 10 MG tablet TAKE TWO TABLETS BY MOUTH IN THE MORNING THORAZINE Active chlorproMAZINE (Thorazine) 25 MG tablet TAKE ONE TABLET BY MOUTH DAILY AT 4PM THORAZINE Active chlorproMAZINE (Thorazine) 50 MG tablet TAKE 3 TABLETS BY MOUTH AT BEDTIME THORAZINE Active clindamycin (Cleocin T) 1 % lotion APPLY TOPICALLY TO FACE AND BACK EVERY MORNING CLEOCIN T 5 Active cloNIDine (Catapres) 0.2 MG tablet TAKE ONE TABLET BY MOUTH 3 TIMES DAILY CATAPRES Active divalproex (Depakote) 250 MG EC tablet TAKE ONE TABLET BY MOUTH TWICE A DAY AT 8AM AND 8PM BENJI PEREIRA Active divalproex (Depakote) 500 MG EC tablet TAKE ONE TABLET BY MOUTH IN THE MORNING AND THREE TABLETS AT BEDTIME BENJI PEREIRA Active famotidine (Pepcid) 20 MG tablet TAKE ONE TABLET BY MOUTH AT NOON PEPCID Active furosemide (Lasix) 20 MG tablet TAKE ONE TABLET BY MOUTH TWICE DAILY LASIX 5 Active gabapentin (Neurontin) 100 MG capsule TAKE ONE CAPSULE BY MOUTH 3 TIMES DAILY NEURONTIN Active levothyroxine (Synthroid, Levoxyl) 150 MCG tablet TAKE ONE TABLET BY MOUTH DAILY SYNTHROID Active lithium 300 MG capsule TAKE ONE CAPSULE BY MOUTH AT BEDTIME ESKALITH Active LORazepam (Ativan) 2 MG tablet TAKE ONE TABLET BY MOUTH AT BEDTIME ATIVAN 5 Active montelukast (Singulair) 10 MG tablet TAKE ONE TABLET BY MOUTH ONCE DAILY SINGULAIR Active risperiDONE (RisperDAL) 1 MG tablet TAKE ONE TABLET BY MOUTH 3 TIMES A DAY RISPERDAL Active Senna-Time 8.6 MG tablet Take 2 tablets by mouth in the morning and 2 tablets before bedtime. 5 Active sulfacetamide suspension (Klaron) 10 % lotion topical APPLY TOPICALLY TO FACE AND BACK NEEDED KLARON 5 Active Viibryd 20 MG tablet TAKE 1 AND 1/2 TABLETS BY MOUTH IN THE MORNING Active Active Problems No known active problems Family History Relation Name Status Comments Mother Alive Social History Tobacco Use Types Packs/Day Years Used Date Smoking Tobacco: Never Smokeless Tobacco: Never Tobacco Cessation:Counseling Given: Yes Alcohol Use Standard Drinks/Week Comments Never 0 (1 standard drink = 0.6 oz pur e alcohol) Sex and Gender Information Value Date Recorded Sex Assigned at Not on file Legal Sex Male 7:21 PM EDT Gender Identity Not on file Sexual Orientation Not on file Last Filed Vital Signs Vital Sign Reading Time Taken Comments Blood Pressure 124/78 03/21/2024 9:58 AM EST Pulse 77 03/21/2024 9:58 AM EST Temperature - - Respiratory Rate - - Oxygen Saturation - - Inhaled Oxygen Concentration - - Weight 68.5 kg (151 lb) 03/21/2024 9:58 AM EST Height 152.4 cm (5') 03/21/2024 9:58 AM EST Body Mass Index 29.49 03/21/2024 9:58 AM EST Plan of Treatment Health Maintenance Due Date Last Done Comments Influenza Vaccine Completed 11/30/2023, , 12/01/2021, Additional history exists Insurance [place]ICAID [place] MEDICARE Care Teams Mold Laminator Relationship Specialty Start Date End Date Iftikhar Kemp MD [address] [place] [address] PCP - General Family Medicine 10/12/23 Iftikhar Kemp MD [address] [place] [address] Family Medicine 10/12/23
--- OUTSIDE RECORDS SUMMARY | 2024-07-23 12:38 | XMS_ITS | Clinical Summary ---
Author Organization [facility] Address [address] [place] [address] Care Team Providers Care Tube Lancer Name Role Phone Unavailable Primary Care Provider [...] Orientation Not on file Plan of Treatment Health Maintenance Due Date Last Done Comments Medicare Annual Wellness (AWV) 1992 Depression Screening 2004 Varicella Vaccines (1 of 2 - 13+ 2-dose series) 2005 Adult Tetanus 2014 Influenza Vaccine (Season Ended) 2024 Zoster Vaccines (1 of 2) 2042 HIB Vaccines Aged Out No longer eligi ble based on patient's age to complete this topic HPV Vaccines Aged Out No longer eligi ble based on patient's age to complete this topic IPV Vaccines Aged Out No longer eligi ble based on patient's age to complete this topic Meningococcal B Vaccine Aged Out No l onger eligible based on patient's age to complete this topic Meningococcal Vaccine Aged Out No rachel diony eligible based on patient's age to complete this topic Pneumococcal Vaccine: Pediat rics (0 to 5 Years) and At-Risk Patients (6 to 64 Years) Aged Out No longer eligible b ased on patient's age to complete this topic Rotavirus Vaccines Aged Out No longer eligible based on patient's age to complete this topic
[2024-07-30 06:59] LABS: Basophils Absolute Auto 0.1 10^3/uL (0.0-0.1); Basophils Percent Auto 1.1 % (0.2-2.0); Eosinophils Percent Auto 0.7 % (0.9-7.0); Hematocrit 41.9 % (42.0-54.0); Hemoglobin 13.5 g/dL (14.0-18.0); Immature Granulocytes Abs Auto 0.01 10^3/uL (0.00-0.03); Immature Granulocytes Pct Auto 0.2 % (0.0-0.5); Lymphocytes Absolute Auto 1.7 10^3/uL (1.2-3.8); Lymphocytes Percent Auto 30.7 % (20.5-60.0); Mean Corpuscular HGB Conc 32.2 g/dL (29.9-35.2); Mean Corpuscular Hemoglobin 32.1 pg (25.9-34.0); Mean Corpuscular Volume 99.5 fL (80.0-94.0); Mean Platelet Volume 9.1 fL (9.5-13.5); Monocytes Absolute Auto 0.4 10^3/uL (0.3-0.8); Monocytes Percent Auto 6.9 % (1.7-12.0); Neutrophils Absolute Auto 3.4 10^3/uL (1.4-6.5); Neutrophils Percent Auto 60.4 % (43.0-75.0); Platelet Count 335 10^3/uL (150-450); Red Blood Count 4.21 10^6/uL (4.70-6.10); Red Cell Distribution Width 13.6 % (11.0-15.0); White Blood Count 5.7 10^3/uL (4.0-11.0)
[2024-07-30 07:19] LABS: Alanine Aminotransferase 24 U/L (16-63); Albumin Globulin Ratio 0.9; Albumin Level 3.5 g/dL (3.4-5.0); Alkaline Phosphatase 118 U/L (46-116); Anion Gap 12.2; Aspartate Amino Transferase 19 U/L (15-37); BUN Creatinine Ratio 10.2; Bilirubin Total 0.3 mg/dL (0.2-1.0); Calcium 9.2 mg/dL (8.5-10.1); Carbon Dioxide 27.7 mmol/L (21.0-32.0); Chloride 110 mmol/L (98-107); Estimated GFR (African America >60 (>=60 mL/min/1.73m^2); Estimated GFR (Non-African Ame >60 (>=60 mL/min/1.73m^2); Globulin 4.1 g/dL; Glucose 87 mg/dL (74-106); Potassium 3.9 mmol/L (3.5-5.1); Sodium 146 mmol/L (136-145); Total Protein 7.6 g/dL (6.4-8.2)
== END 2024-07-30 06:39 | disposition home or self-care (01) ==
LOC: LAB 06:38
PROVIDERS: PCP Family Medicine; Visit Provider Family Medicine
DX: G40.909 Epilepsy, unspecified, not intractable, without status epilepticus (principal); R10.13 Epigastric pain; K59.00 Constipation, unspecified; I27.20 Pulmonary hypertension, unspecified; L30.9 Dermatitis, unspecified; F31.9 Bipolar disorder, unspecified; Z79.899 Other long term (current) drug therapy
CPT/HCPCS: 36415; 80053; 85025

== ENCOUNTER 2025-01-06 06:39 | Outpatient (OUT) | payer MEDICARE, MEDICAID, SELFPAY ==
--- OUTSIDE RECORDS SUMMARY | 2024-04-18 06:00 | XMS_ITS ---
Author Organization [facility] Servic es Address [address] [place] [address] Care Team Providers Care Yoghurt Maker Name Role Phone Dr. Marcial Middleton Primary Care Provider [phone] Chichi Andrade [phone] REASON FOR VISIT PROPHY Encounters Encounter Location Date Provider Diagnosis [place] [address] 04/18/2024 Chichi Moura Plan Of Treatment Next Appt Details Provider Name:Aviva Jama, 03/2024 11:30:00 AM, [address], [place], [address], Provider Name:Dee Zimmerman, 04/03/2025 01:00:00 PM, [address], [place], [address], Progress Notes * FAHAD BERNABEDOB:1990 (34 yo M)Acc No.[id number]:04/18/2024 Patient:?SRINIVASA FAHAD :?Chichi BoneDOB:1990???Age:33 Y???Sex:Male Date:04/18/2024Phone:[phone]:[address] [facility] [id number] Pcp:Dr. Marcial Middleton Subjective: * Chief Complaints: * P ROPHY * Electronic signature of Chichi Moura on 01/06/2025 at 06:48 AM ESTSign off status: Pending * Provider: Helen Bone Date: 0 04/18/2024 Generated for Printing/Faxing/eTransmitting on:?01/06/2025 06:48 AM EST
--- OUTSIDE RECORDS SUMMARY | 2024-05-22 03:30 | XMS_ITS ---
Author Organization [facility] Address [address] [address] Care Team Providers Care Store Stock Help Name Role Phone Dr. Marcial Middleton Primary Care Provider [phone] Vera Georges [phone] REASON FOR VISIT 6 month f/u Encounters Encounter Location Date Provider Diagnosis [facility] [address] [place] [address] 05/22/2024 Vera Leahy Plan Of Treatment Next Appt Details Provider Name:Aviva Jama, 03/2024 11:30:00 AM, [address], [place], [address], Provider Name:Dee Zimmerman, 04/03/2025 01:00:00 PM, [address] [place], [address], Progress Notes * FAHAD BERNABEDOB:1990 (34 yo M)Acc No.[id number]:05/22/2024 Patient:?FAHAD BERNABE :?Vera LeahyDOB:1990???Age:33 Y???Sex:Male Date:05/22/2024Phone:[phone]:[address] [place], [id number] Pcp:Dr. Marcial Middleton Subjective: * Chief Complaints: * 6 month f/u * Electronic signature of Vera Leahy on 01/06/2025 at 06:49 AM ESTSign off status: Pending * Provider: Santiago Leahy Date: 0 05/22/2024 Generated for Printing/Faxing/eTransmitting on:?01/06/2025 06:49 AM EST
--- OUTSIDE RECORDS SUMMARY | 2024-06-06 03:30 | XMS_ITS ---
Author Organization [facility] Address [address] [place] [address] Care Team Providers Care Deicer Repairer Name Role Phone Dr. Marcial Middleton Primary Care Provider [phone] Dustin Diaz Unavailable REASON FOR VISIT FILLING Encounters Encounter Location Date Provider Diagnosis [place] [address] [place] [address] 06/06/2024 Dustin Eugene Plan Of Treatment Next Appt Details Provider Name:Aviva Jama, 03/2024 11:30:00 AM, [address], [place], [address], Provider Name:Dee Zimmerman, 04/03/2025 01:00:00 PM, [address] [place], [address], Progress Notes * FAHAD BERNABEDOB:1990 (34 yo M)Acc No.[id number]:06/06/2024 Patient:?FAHAD BERNABE :?DUSTIN EUGENE, DDSDOB:1990???Age: 33 Y???Sex:MaleDate:06/06/2024Phone:[phone]:[address], [id number]:Dr. Marcial Middleton Subjective: * Chief Complaints: * F ILLING * Electronic signature of Dustin Eugene DDS on 01/06/2025 at 06:48 AM ESTSign off status: Pending * Provider: Clay EUGENE DDS Date: 0 06/06/2024 Generated for Printing/Faxing/eTransmitting on:?01/06/2025 06:48 AM EST
--- OUTSIDE RECORDS SUMMARY | 2024-06-07 08:30 | XMS_ITS ---
Author Organization [facility] Address [address] [place] [address] Care Team Providers Care Accounting Representative Name Role Phone Dr. Marcial Middleton Primary Care Provider Dustin Diaz Unavailable REASON FOR VISIT FILLING Encounters Encounter Location Date Provider Diagnosis [place] [address] [address] 06/07/2024 Dustin Eugene Plan Of Treatment Next Appt Details Provider Name:Aviva Jama, 03/2024 11:30:00 AM, [address], [place], [address], Provider Name:Dee Zimmerman, 04/03/2025 01:00:00 PM, [address] [place], [address], Progress Notes * FAHAD BERNABEDOB:1990 (34 yo M)Acc No.[id number]:06/07/2024 Patient:?FAHAD BERNABE :?DUSTIN EUGENE, DDSDOB:1990???Age: 33 Y???Sex:MaleDate:06/07/2024Phone:[phone]:[address] [facility], [id number]:Dr. Marcial Middleton Subjective: * Chief Complaints: * F ILLING * Electronic signature of Dustin Eugene DDS on 01/06/2025 at 06:48 AM ESTSign off status: Pending * Provider: Clay EUGENE DDS Date: 0 06/07/2024 Generated for Printing/Faxing/eTransmitting on:?01/06/2025 06:48 AM EST
--- OUTSIDE RECORDS SUMMARY | 2024-11-08 04:30 | XMS_ITS ---
Author Organization [facility] Address [address] [address] Care Team Providers Care Support Service Tech Name Role Phone Dr. Marcial Middleton Primary Care Provider Dustin Diaz Unavailable REASON FOR VISIT FILLING Encounters Encounter Location Date Provider Diagnosis [place] [address] [address] 11/08/2024 Dustin Eugene Plan Of Treatment Next Appt Details Provider Name:Aviva Jama, 03/2024 11:30:00 AM, [address], [place], [address], Provider Name:Dee Zimmerman, 04/03/2025 01:00:00 PM, [address] [place], [address], Progress Notes * FAHAD BERNABEDOB:1990 (34 yo M)Acc No.[id number]:11/08/2024 Patient:?FAHAD BERNABE :?DUSTIN EUGENE, DDSDOB:1990???Age: 34 Y???Sex:MaleDate:11/08/2024Phone:[phone]:[address] [facility], [id number]:Dr. Marcial Middleton Subjective: * Chief Complaints: * F ILLING Billing Information: * Procedure Codes: * Electronic signature of Dustin Eugene DDS on 01/06/2025 at 06:49 AM ESTSign off status: Pending * Provider: Clay EUGENE DDS Date: 0 11/08/2024 Generated for Printing/Faxing/eTransmitting on:?01/06/2025 06:49 AM EST
--- OUTSIDE RECORDS SUMMARY | 2025-01-06 06:48 | XMS_ITS | Clinical Summary ---
Author Organization [facility] Address [address] [place] [address] Care Team Providers Care Pan Washer Name Role Phone Iftikhar Kemp DO Primary Care Provider [phone] Allergies No known active allergies Medications * This document contains information received from the source organization and may not represent a complete record from that organization. MedicationSigDispense QuantityRefillsLast FilledStart DateEnd DateStatus DEPAKOTE 500 MG TAB Indications:Down's syndrome (HCC),Unspecified hypothyroidism,Unspecified mental or behavioral problemTake one(1) tablet twice daily. 60 ctive SEROQUEL 300 MG TAB Indications:Down's syndrome (HCC),Unspecified hypothyroidism,Unspecified mental or behavioral problemTake one(1) tablet twice daily. 60 ctive CLONIDINE 0.1 MG TAB Indications:Down's syndrome (HCC),Unspecified hypothyroidism,Unspecified mental or behavioral problemTake one(1) tablet twice daily. 60 ctive STRATTERA 60 MG CAP Indications:Down's syndrome (HCC),Unspecified hypothyroidism,Unspecified mental or behavioral problemone pill daily 30 ctive SYNTHROID 50 MCG TAB Indications:Down's syndrome (HCC),Unspecified hypothyroidism,Unspecified mental or behavioral problemTake one(1) tablet daily. 30 ctive Social History Tobacco UseTypesPacks/DayYears UsedDateSmoking Tobacco: Never AssessedSex and Gender InformationValueDate RecordedSex Assigned at BirthNot on fileLegal Sex Male01/15/2012 9:42 AM ESTGender IdentityNot on fileSexual OrientationNot on file Last Filed Vital Signs Vital SignReadingTime TakenCommentsBlood Pressure--Pulse--Temperature-- Respiratory Rate--Oxygen Saturation--Inhaled Oxygen Concentration--Lkwvmv67.9 kg (143 lb)04/07/2006 12:52 PM DUBQfacqc869 cm (4' 11.06 )04/07/2006 12:52 PM EST Body Mass Index28.8204/07/2006 12:52 PM EST Plan of Treatment Health MaintenanceDue DateLast DoneCommentsAnxiety Lrdzvxjre87/09/2011Depression Ctyghhpok95/09/2011HIV Tyizuktzf18/09/2011Hepatitis C Rbylwrpyn32/09/2011 DTaP,Tdap,Td Vaccine (1 - Tdap)08/22/2011Hepatitis B Vaccine (1 of 3 - 19+ 3- dose series)08/22/2011HPV Vaccine (1 - 3-dose SCDM series)08/22/2019Covid-19 Vaccine (1 - 2024- season)2024Influenza Vaccine (#1)2024 Insurance Care Teams Team MemberRelationshipSpecialtyStart DateEnd Date Iftikhar Kemp DO PCP - GeneralFamily Medicine09/23/13
--- OUTSIDE RECORDS SUMMARY | 2025-01-06 06:48 | XMS_ITS | Clinical Summary ---
Author Organization [facility] Address [address] [place] [address] Care Team Providers Care Currency Examiner Name Role Phone Iftikhar Kemp DO Primary Care Provider [phone] Allergies Active AllergyReactionsCriticalityNoted RioaAewvjcveJgzxcpeePskuwVms32/24/2018 Medications MedicationSigDispense QuantityRefillsLast FilledStart DateEnd DateStatus B Complex Vitamins (B COMPLEX 100 PO) Take by mouth.Active CARBAMAZEPINE PO Take 400 mg by mouth 2 times daily.Active chlorproMAZINE 10 MG Tab Take 50 mg by mouth 3 times daily.Active clindamycin 1 % Solution Apply 1 Application topically 2 times daily. use thin film on affected area Active cloNIDine 0.2 MG Tab tablet Take 0.2 mg by mouth 3 times daily.Active divalproex [address] tablet EC/DR Take 250 mg by mouth 2 times daily.Active docusate 100 MG Cap capsule Take 100 mg by mouth 2 times daily.Active faMOTIdine 20 MG Tab tablet Take 20 mg by mouth 2 times daily.Active gabapentin 100 MG Cap capsule Take 100 mg by mouth 3 times daily.Active levothyroxine 125 MCG Tab tablet Take 125 mcg by mouth daily.Active lithium 300 MG Cap Take 300 mg by mouth 3 times daily.Active LORazepam 1 MG Tab tablet Take 1 mg by mouth every 6 hours as needed for Anxiety.Active Benzoyl Peroxide (PANOXYL) 10 % Bar Apply topically.Active risperiDONE 1 MG Tab tablet Take 1 mg by mouth 3 times daily.Active Vilazodone HCl (VIIBRYD) 20 MG Tab Take 30 mg by mouth.Active divalproex [address] tablet EC/DR Take 1,000 mg by mouth at bedtime.Active benzonatate 100 MG Cap capsule Take 1 capsule by mouth 3 times daily as needed for Cough. 21 capsule 01/08/2018Active predniSONE 10 MG Tab tablet 4 tabs po daily x 3 days, 3 tabs po daily x 3 days, 2 tabs po daily x 3 days, 1 tab po daily x 3 days, then discontinue 30 tablet 01/08/2018Active twspetdljcqjqza-uiacgyrbqjqkcww-akbctblefjdonnhx 30-2-10 MG/5ML Syrup Take 5 mL by mouth every 4 hours as needed for Cold Symptoms. 60 mL 5Active Active Problems ProblemNoted DateDiagnosed BxekRapoeyz54/25/2018 Assessment & Plan (01/07/2018 12:47 PM EST): Resume home medications Follow up after discharged with PCP Pbabbmjahmfskf94/25/2018 Assessment & Plan (01/07/2018 12:47 PM EST): Resume home medications Follow up after discharged with PCP Down ffaqnrye71/25/2018 Assessment & Plan (01/07/2018 12:48 PM EST): Resume home therapies Follow up after discharged with PCP Jkgklxsaanix02/25/2018 Assessment & Plan (01/07/2018 12:48 PM EST): Improving White count= 13.7 on admission, = 12.5 today Empiric antibiotics ordered Blood and sputum cultures ordered and pending Monitor VS and CBC as ordered Cqxyywvyy44/24/2018 Assessment & Plan (01/07/2018 12:46 PM EST): Systemic steroids, empiric antibiotics and nebulizer's ordered Will check CRP, sed rate, legionella, strep and sputum cultures Blood cultures pending CT chest ordered Repeat Chest XR in AM Obesity: body mass index of 40.0-49.9103/08/2017 Assessment & Plan (01/07/2018 12:49 PM EST): Diet and lifestyle modifications strongly encouraged Follow up after discharged with PCP for further treatment options Encounters DateTypeDepartmentCare YkbaKrohknjvgge06/02/2025Results Follow-Up [facility] Emergency Medicine [address] [place] [address] Dixie Holbrook RN CULTURE MCQCDF8210/12/2024 11:49 AM EDT - 10/12/2024 12:35 PM EDTEmergency [facility] [address] [place] [address] Discharge Disposition: Home or Self Carefrom Last 3 Months Social History Tobacco UseTypesPacks/DayYears UsedDateSmoking Tobacco: NeverSmokeless Tobacco: NeverAlcohol UseStandard Drinks/WeekCommentsNo0 (1 standard drink = 0.6 oz pure alcohol)Sex and Gender InformationValueDate RecordedSex Assigned at BirthNot on fileLegal FdrWeyf5002/19/2016 4:59 PM ESTGender ZscnlnffUpjv47/24/2018 10:47 AM ESTSexual OrientationNot on file Last Filed Vital Signs Vital SignReadingTime TakenCommentsBlood Eykqbcjh374/6804 3:00 PM EDT Qrvag6870 3:00 PM HHQWfvjhjotmjz27 ??C (98.6 ??F)05/27/2023 2:16 PM EDT Respiratory Vvij857205/27/2023 2:49 PM EDTOxygen Hsuxupcszj45%05/27/2023 3:00 PM EDTInhaled Oxygen Concentration--Bhmreb35.2 kg (212 lb 1.3 oz)01/08/2018 3:51 AM TAQSyvtne878.8 cm (4' 9 )05/27/2023 2:17 PM EDTBody Mass Index45.8901/06/2018 4:24 PM EST Plan of Treatment Health MaintenanceDue DateLast DoneCommentsHEPATITIS C VIRUS XUUTJTKOC53/09/1993 HIV SCREENING EZWGQHVUMK64/09/2008HEP B VACCINE (1 of 3 - 19+ 3-dose series) 08/22/20116080WCMTHSH18/30/TSH103/08/HPV VACCINE (1 - 3- dose SCDM series)08/22/2019COVID-19 VACCINE ( - 2024- season)2024 INFLUENZA VACCINE (#1)510/08/2019, 11/22/2017, 12/07/2016, Additional history existsTDAP (ADULT)Cmgteorjo24/30/2006PNEUMOCOCCAL VACCINE SERIESAged Out No longer eligible based on patient's age to complete this topic Procedures Procedure NamePriorityDate/TimeAssociated DiagnosisCommentsXR CHEST PA AND LATERAL 2 UPTTEQUKV21/30/2025 6:27 PM EDT LABS (SCANNED)Vqyexxy5210/12/2024 2:58 PM EDTORDERS (SCAN)Oqrvysk4410/12/2024 2:57 PM EDTORDERS (SCAN)Oqnbuat4510/12/2024 2:54 PM EDTCULTURE WAHVGZYzuucxn82/30/2025 2:14 PM EDT ORDERS (SCAN)Kkkbloi9110/12/2024 10:49 AM EDTRAPID STREP A ANTIGENRoutine 10/12/2024 10:13 AM EDT NOVEL CORONAVIRUS LAB 1 - NKSZLLCLSWYGFEScedueu97/30/2025 10:13 AM EDT QRKUFHJ2801/06/2018 1:20 PM EST from Last 3 Months or Most Recently Relevant to Health Maintenance Results * XR CHEST PA AND LATERAL 2 VIEWS (10/12/2024 6:27 PM EDT)Anatomical Region LateralityModalityChestDigital RadiographySpecimen (Source)Anatomical Location / LateralityCollection Method / VolumeCollection TimeReceived Time10/12/2024 6:27 PM EDT Impressions 10/13/2024 8:25 AM EDT IMPRESSION: Possible small right pleural effusion or pleural thickening. No definite acute infiltrates. Narrative 10/13/2024 8:25 AM EDT EXAM: XR CHEST PA AND LATERAL 2 VIEWS HISTORY: Cough and shortness of breath. COMPARISON: None available. FINDINGS: 2 views the chest are performed. Lungs appear clear. There is possible small right pleural effusion with subtle blunting of the right lateral costophrenic angle and of the posterior costophrenic angle on the lateral view. No evidence of pneumothorax. Heart is normal size. There is mild curvature. No acute osseous abnormality is seen. Procedure Note Ilia Marion MD - 10/13/2024 EXAM: XR CHEST PA AND LATERAL 2 VIEWS HISTORY: Cough and shortness of breath. COMPARISON: None available. FINDINGS: 2 views the chest are performed. Lungs appear clear. There is possible small right pleural effusion with subtle blunting of the rightlateral costophrenic angle and of the posterior costophrenic angle on the lateralview. No evidence of pneumothorax. Heart is normal size. There is mildcurvature. No acute osseous abnormality is seen. IMPRESSION IMPRESSION: Possible small right pleural effusion or pleural thickening. No definiteacute infiltrates. Authorizing ProviderResult TypeResult StatusAllison Velazquez APRN-[facility] HOSPITALDIAGNOSTIC IMAGING ORDERABLESFinal Result * LABS (SCANNED) (10/12/2024 2:58 PM EDT) Narrative Authorizing ProviderResult TypeResult Denys Velazquez APRN-RAVINDERLAB SEND OUTSFinal Result * ORDERS (SCANNED) (10/12/2024 2:57 PM EDT)Anatomical RegionLateralityModality Other Narrative Authorizing ProviderResult TypeResult StatusHistorical ProviderPROC - OPERATIVE Final Result * ORDERS (SCANNED) (10/12/2024 2:54 PM EDT)Anatomical RegionLateralityModality Other Narrative Authorizing ProviderResult TypeResult StatusHistorical ProviderPROC - OPERATIVE Final Result * CULTURE THROAT (10/12/2024 2:14 PM EDT)ComponentValueRef RangeTest Method Analysis TimePerformed AtPathologist SignatureSPECIMEN DESCRIPTIONTHROAT SWAB [address]RESULT-CULTUSUAL OROPHARYNGEAL FLORA[address] Comment:Testing performed at [place], [place] [address] Report Kplksc7810/14/2024[address] Comment:FINALSpecimen (Source)Anatomical Location / LateralityCollection Method / VolumeCollection TimeReceived Time10/12/2024 2:14 PM EDT10/12/2024 2:14 PM EDT Narrative Authorizing ProviderResult TypeResult Denys Velazquez APRN-[facility] HOSPITALMICROBIOLOGY - GENERAL ORDERABLESFinal ResultPerforming OrganizationAddressCity/State/ZIP CodePhone Number [address] [address] * ORDERS (SCANNED) (10/12/2024 10:49 AM EDT)Anatomical RegionLateralityModality Other Narrative Authorizing ProviderResult TypeResult StatusHistorical ProviderPROC - OPERATIVE Final Result * NOVEL CORONAVIRUS LAB 1 - NASOPHARYNGEAL (10/12/2024 10:13 AM EDT)Component ValueRef RangeTest MethodAnalysis TimePerformed AtPathologist SignatureSARS COV 2 RNA, QL REAL TIME RT PCRNOT DETECTEDNOT DETECTED[address]Comment: Negative results do not preclude SARS-CoV-2 infection and should not be used as the sole basis for treatment or other patient management decisions. Optimum specimen types and timing for peak viral levels during infections caused by SARS-CoV-2 has not been determined. The possibility of a false negative result should especially be considered if the patient's recent exposures or clinical presentation suggest that SARS-CoV-2 infection is probable, and diagnostic tests for other causes of illness (e.g., other respiratory illness) are negative. Collection of a new specimen and re-testing may be necessary if the patient is critically ill or clinically deteriorating. NARRATIVE -1This test was performed using isothermal EDER for the qualitative detection of SARS-CoV-2 nucleic acid.[address]Comment:Testing performed at [place], [place] [address]Djuvfwxd (Source)Anatomical Location / LateralityCollection Method / VolumeCollection TimeReceived Time10/12/2024 10:13 AM EDT10/12/2024 1:04 PM EDT Narrative Authorizing ProviderResult TypeResult StatusKhanh Clive Ghanaian MDMICROBIOLOGY - GENERAL ORDERABLESFinal ResultPerforming OrganizationAddressCity/State/ZIP Code Phone Number [address] [address] * RAPID STREP A ANTIGEN (10/12/2024 10:13 AM EDT)ComponentValueRef RangeTest MethodAnalysis TimePerformed AtPathologist SignatureRAPID STREP, GROUP A NEGATIVENEGATIVE[address] Comment: STREP CULTURE TO FOLLOW TESTING PERFORMED BY EDER Testing performed at [place], [place] [address] Specimen (Source)Anatomical Location / LateralityCollection Method / Volume Collection TimeReceived Time10/12/2024 10:13 AM EDT10/12/2024 12:57 PM EDT Narrative Authorizing ProviderResult TypeResult StatusAllison Velazquez RESEARCH AND DEVELOPMENT TECHNICIAN-CNPIMMUNOLOGY ORDERABLESFinal ResultPerforming OrganizationAddressCity/State/ZIP CodePhone Number [address] [address] * TSH (01/06/2018 1:20 PM EST)ComponentValueRef RangeTest MethodAnalysis Time Performed AtPathologist SignatureTSH0.9940.46 - 4.68 uIU/ML[address]Comment:Testing performed at [place], [place] [address]Xcyuephl (Source)Anatomical Location / LateralityCollection Method / VolumeCollection TimeReceived Time01/06/2018 1:20 PM EST01/06/2018 3:00 PM EST Narrative Authorizing ProviderResult TypeResult StatusNaida VAZQUEZ-CENDOCRINOLOGY Final ResultPerforming OrganizationAddressCity/State/ZIP CodePhone Number [address] [address] from Last 3 Months or Most Recently Relevant to Health Maintenance Insurance * Guarantor: Willian Bernabe TypeRelation to PatientDate of BirthPhone Billing AddressPersonal/SgdqefFoyh42/09[birth year][address] [address] Advance Directives For more information, please contact: [phone] (7:30 AM - 6PM [facility], Monday-Monday) * Full Code (Latest Code Status on File) Date ActivatedDate FelfainechhVomwwyer48/24/2018 4:10 PM Care Teams Team MemberRelationshipSpecialtyStart DateEnd Date Iftikhar Kemp DO PCP - GeneralFamily Medicine05/27/23
--- OUTSIDE RECORDS SUMMARY | 2025-01-06 06:49 | XMS_ITS | Clinical Summary ---
Author Organization [facility] Address [address] [place] [address] Care Team Providers Care Store Operations Manager Name Role Phone Unavailable Primary Care Provider Unavailabl e Social History Tobacco UseTypesPacks/DayYears UsedDateSmoking Tobacco: Never AssessedUT Safety & EnvironmentAnswerDate RecordedFear of Current or Ex-PartnerNot on file 04/06/2023Emotionally AbusedNot on file04/06/2023hysically AbusedNot on file 04/06/2023Sexually AbusedNot on file4Physically or Sexually AbusedNot on file04/06/2023Sex and Gender InformationValueDate RecordedSex Assigned at BirthNot on fileLegal AvcLzvi5008/11/2021 9:38 PM EDTGender IdentityNot on file Sexual OrientationNot on file Plan of Treatment Health MaintenanceDue DateLast DoneCommentsMedicare Annual Wellness (AWV) 1992Depression Wkaztvrtn46/09/2005Varicella Vaccines (1 of 2 - 13+ 2-dose series)2005dult Nbxseze6608/21/2014HPV Vaccines (1 - 3-dose SCDM series) 08/22/2019Influenza Vaccine (#1)2024Zoster Vaccines (1 of 2)2042HIB VaccinesAged OutNo longer eligible based on patient's age to complete this topic IPV VaccinesAged OutNo longer eligible based on patient's age to complete this topicMeningococcal B VaccineAged OutNo longer eligible based on patient's age to complete this topicMeningococcal VaccineAged OutNo longer eligible based on patient's age to complete this topicPneumococcal Vaccine: Pediatrics (0 to 5 Years) and At-Risk Patients (6 to 64 Years)Aged OutNo longer eligible based on patient's age to complete this topicRotavirus VaccinesAged OutNo longer eligible based on patient's age to complete this topic Insurance
--- OUTSIDE RECORDS SUMMARY | 2025-01-06 06:49 | XMS_ITS | Clinical Summary ---
Author Organization [facility] Address [facility] [place] [address] Care Team Providers Care Fire Lieutenant Marine Name Role Phone Joe Kempel Fam MALLOY Primary Care Provider Allergies Active AllergyReactionsCriticalityNoted WtjzJdaulvliFhzvmdikGsivqSry95/24/2018 Medications MedicationSigDispense QuantityRefillsLast FilledStart DateEnd DateStatus b complex vitamins capsule Take 1 capsule by mouth daily .Active benzoyl peroxide 5 % gel Apply topically daily .Active carBAMazepine (TEGretol XR) 400 MG 12 hr tablet Take 400 mg by mouth 2 (two) times a day .Active chlorproMAZINE (THORAZINE) 25 MG tablet Take 25 mg by mouth 2 (two) times a day .Active chlorproMAZINE (THORAZINE) 50 MG tablet Take 150 mg by mouth nightly .Active cloNIDine HCl (CATAPRES) 0.2 MG tablet Take 0.2 mg by mouth 3 (three) times a day .Active divalproex (DEPAKOTE) 250 MG delayed release (DR) tablet Take 250 mg by mouth 2 (two) times a day .Active divalproex (DEPAKOTE) 500 MG delayed release (DR) tablet Take 500 mg by mouth 3 (three) times a day 2 tablets at 8pm .Active famotidine (PEPCID) 20 MG tablet Take 20 mg by mouth daily .Active gabapentin (NEURONTIN) 100 MG capsule Take 100 mg by mouth 3 (three) times a day .Active levothyroxine (SYNTHROID, LEVOTHROID) 150 MCG tablet Take 150 mcg by mouth once daily .Active lithium 150 MG capsule Take 300 mg by mouth nightly .Active LORazepam (ATIVAN) 1 MG tablet Take 2 mg by mouth nightly .Active montelukast (SINGULAIR) 10 mg tablet Take 10 mg by mouth nightly .Active risperiDONE (RISPERDAL) 1 MG tablet Take 1 mg by mouth 3 (three) times a day .Active acetaminophen (TYLENOL) 325 MG tablet Take 650 mg by mouth every 6 (six) hours as needed for pain .Active albuterol (PROVENTIL) 2.5 mg /3 mL (0.083 %) nebulizer solution Take 2.5 mg by nebulization every 6 (six) hours as needed for wheezing .Active vilazodone (VIIBRYD) 20 mg tablet Take 20 mg by mouth daily Take 1 and 1/2 tablets by mouth daily .Active guaiFENesin (MUCINEX) 600 mg 12 hr tablet Take 600 mg by mouth 2 (two) times a day Take one table by mouth twice daily . Active furosemide (LASIX) 20 MG tablet Take 1 (one) tablet (20 mg total) by mouth 2 (two) times a day . 60 tablet Active Linzess 72 mcg cap Take 1 capsule by mouth every morning .03/16/2021ctive benzonatate (TESSALON) 100 MG capsule Take 100 mg by mouth 3 (three) times a day as needed .01/08/2018Active Active Problems ProblemNoted DateDiagnosed DateEsophageal yynmnjhfq60/14/2022 Overview (05/27/2021): Added automatically from request for surgery [id number] Food bolus obstruction of ddkfuwipy94/14/2022 Overview (05/27/2021): Added automatically from request for surgery [id number] Pneumonia due to COVID-19 virus05/03/2021cute metabolic encephalopathy 02/26/2019 Assessment & Plan (02/26/2019 [...] setting of her clinical neuropsychiatric event. Respiratory rlrqoku4902/23/2019 Family History Medical HistoryRelationCommentsHeart diseaseNeg Hx Social History Tobacco UseTypesPacks/DayYears UsedDateSmoking Tobacco: NeverSmokeless Tobacco: NeverAlcohol UseStandard Drinks/WeekCommentsNever0 (1 standard drink = 0.6 oz pure alcohol)AUDIT-CAnswerDate RecordedFrequency of Alcohol ConsumptionNever 02/23/2019Average Number of DrinksNot on file02/23/2019Frequency of Binge DrinkingNot on file02/23/2019Sex and Gender InformationValueDate RecordedSex Assigned at BirthNot on fileLegal PrzQvui3706/08/2013 3:27 PM EDTGender Identity Male02/23/2019 3:13 PM ESTSexual OrientationChoose not to mjpydqqi48/11/2020 3:13 PM EST Last Filed Vital Signs Vital SignReadingTime TakenCommentsBlood Naxodess645/3904 9:11 AM EDT Punnd7564 9:11 AM LFCUfyyqfjyaun85.7 ??C (98 ??F)06/03/2021 7:23 AM EDT Respiratory Mwbh5886 9:11 AM EDTOxygen Jomsvmtovf27%06/03/2021 9:11 AM EDTInhaled Oxygen Concentration--Dtysoj80.3 kg (155 lb)06/03/2021 7:23 AM EDT Wjrjec112.4 cm (5')06/03/2021 7:23 AM EDTBody Mass Index30.2704 7:23 AM EDT Plan of Treatment Health MaintenanceDue DateLast DoneCommentsWellness Visit08/22/1995Depression Screening/Follow-Up (PHQ-2/9)2004Varicella Vaccines (1 of 2 - 13+ 2-dose series)2005HIV Gvrpyiezq47/09/2008Hepatitis C Bgctqhfcs12/09/2011HPV Vaccines (1 - 3-dose SCDM series)08/22/2019COVID-19 Vaccine (3 - season) 502/03/2020, 02/25/2020Influenza Vaccine (#1)510/, 11/20/2019, 12/07/2018, Additional history existsTetanus/Diphtheria/Pertussis (8 - Td or Tdap), 09/30/2008, 07/12/2005, Additional history existsZoster Vaccines (1 of 2)2042RSV Vaccines (1 - 1-dose 75+ series) 08/22/2067HIB DxsedlkbHjunollvg05/15/1996, 05/25/1993, 03/16/1993, Additional history existsHepatitis B BkfemzblRpodrhpft13/15/1996, 03/16/1993, 01/05/1993IPV SmnmaoltGzorkbjpg77/30/1999, 05/25/1993, 03/16/1993, Additional history exists MMR ZlaelfieAbxfxvolw88/30/1999, 03/30/1995Pneumococcal VaccineAged Out 11/27/2018No longer eligible based on patient's age to complete this topic Hepatitis A VaccinesAged OutNo longer eligible based on patient's age to complete this topicMeningococcal ACWY VaccineAged OutNo longer eligible based on patient's age to complete this topicMeningococcal B VaccineAged OutNo longer eligible based on patient's age to complete this topicRotavirus VaccinesAged Out No longer eligible based on patient's age to complete this topic Insurance * Guarantor: Willian Arnold TypeRelation to PatientDate of BirthPhone Billing AddressPersonal/MltyihCyxa76/09/[address] [address] Advance Directives For more information, please contact: [phone] TypeDate RecordedPatient RepresentativeExplanationGuardianship Papers07/08/2020 * Full Code (Latest Code Status on File) Date ActivatedDate InactivatedComments05/03/2021 12:29 AM05/06/2021 7:05 PM * Full Code - Unverified Date ActivatedDate InactivatedComments02/23/2019 9:21 PM05/02/2021 12:30 PM Care Teams Team MemberRelationshipSpecialtyStart DateEnd Date Iftikhar Kemp DO [facility] [employer] [place] [id number] PCP - GeneralEndocrinology/Metabolism02/23/19
--- OUTSIDE RECORDS SUMMARY | 2025-01-06 06:49 | XMS_ITS | Patient Health Record ---
Author Organization [facility] es Address [address] [place] [address] Care Team Providers Care Merchandise Support Associate Name Role Phone Dr. Marcail Middleton Primary Care Provider [phone] Samra Diaz Unavailable Vera Leahy Unavailable [phone] Chichi Moura Unavailable [phone] Kim Ba Unavailable [phone] Reason For Referral No Information Encounters Encounter Location Date Provider Diagnosis [facility] [address] [place] [address] 02/22/2024 Samradami Gonzalez [facility] [address] [place] [address]/Jasmina YessiicBLAN[facility]ARD [facility] [address] [facility] [place] [address]/09/2024Fihanh Gonzalez Dental caries on pit and fissure surface penetrating into dentin K02.52[facility] [place] [address]/Fiorella Loco CastilloDental caries on pit and fissure surface penetrating into dentin K02.52[facility] [place] [address] 08/08/2024Jasmina SaricDental caries on pit and fissure surface penetrating into dentin K02.52 Assessments Encounter Date Diagnosis (ICD Code) Assessment Notes Treatment Notes Treatment Clinical Notes Section Notes 02/21/2024 Dental caries on pit and fissure surface penetrating into dentin (ICD-10 - K02.52) 08/08/2024Dental caries on pit and fissure surface penetrating into dentin (ICD- 10 - K02.52)07/30/2024Dental caries on pit and fissure surface penetrating into dentin (ICD-10 - K02.52) Plan Of Treatment Next Appt Details Provider Name:Aviva Evita, 03/2024 11:30:00 AM, [address], [place], [address], Provider Name:Dee Elsie, 04/03/2025 01:00:00 PM, [address], [place], [address], Insurance Providers Payer Name Payer Address Payer Phone Subscriber Number Group Number Insured Name Patient Relationship to Insured Coverage Start Date Coverage End Date [employer] [place] [address] [place] [id number] Griffin BERNABE - patient is the [id number] 2023
--- OUTSIDE RECORDS SUMMARY | 2025-01-06 06:49 | XMS_ITS | Clinical Summary ---
Author Organization [facility] Address [address] [facility] [place] [address] Care Team Providers Care Diesel Scoop Operator Name Role Phone Unavailable Primary Care Provider Unavailabl e Source Comments The following information is NOT included in Care Everywhere downloads:Psychiatric notes, ECG results, Cardiac Rehab notes, Pulmonary Function notes, data from SmartForms (includes but not limited toPregnancy data,audiograms, eye exams, pre-surgical evaluation notes, well-child exam data).[facility] Immunizations ImmunizationAdministration DatesNext DueInfluenza, injectable, quadrivalent, preservative (UHT=179)12/07/2016Influenza, injectable, quadrivalent, preservative free (SXK=445)11/20/2019,11/22/2017,12/04/2014,12/19/2013Influenza, injectable, trivalent, preservative (AZW=054)11/18/2015,12/12/2012,12/07/2011 Influenza, novel W4B4-05, injectable, preservative-free (HPA=821)12/31/2008 Influenza, whole virus (CVX=16)10/27/2010Td (adult), unspecified formulation (ZEN=041)07/12/2005 Social History Tobacco UseTypesPacks/DayYears UsedDateSmoking Tobacco: Never AssessedSex and Gender InformationValueDate RecordedSex Assigned at BirthNot on fileLegal Sex Male10/24/2019 10:08 AM EDTGender IdentityNot on fileSexual OrientationNot on file Plan of Treatment Health MaintenanceDue DateLast DoneCommentsHIV Test08/22/2007Hepatitis C Nasgodib88/09/2011Tdap Rbtowxe5708/21/2010Hepatitis A (HAV) Vaccine (optional start 19+ years)08/22/2011Hepatitis B (HBV) Vaccine (1 of 3 - 19+ 3-dose series) 08/22/2011HPV Vaccine (optional start 27-45 years)08/22/2019Welcome to Medicare Visit (G0402)5COVID-19 Vaccine (3 - 2024-26 season)2024 03/17/2020, 02/25/2020Influenza Vaccine (#1)/08/2019, 11/22/2017, 12/07/2016, Additional history existsShingles (RZV) Vaccine (1 of 2)2042 Pneumococcal Vaccine(s)Aged OutNo longer eligible based on patient's age to complete this topic Insurance [address] [place] [address]
--- OUTSIDE RECORDS SUMMARY | 2025-01-06 06:49 | XMS_ITS | Clinical Summary ---
Author Organization [facility] Address [address] [place] [address] Care Team Providers Care Saloon Keeper Name Role Phone Iftikhar Kemp MD Primary Care Provider + [phone] Iftikhar Kemp MD Unavailable [phone] Allergies No known active allergies Medications MedicationSigDispense QuantityRefillsLast FilledStart DateEnd DateStatus b complex vitamins capsule Take 1 capsule by mouth DailyActive carBAMazepine (TEGretol) 200 MG tablet TAKE 2 TABLETS BY MOUTH TWICE DAILY ZDFTNAKT52/28/2025Active chlorproMAZINE (Thorazine) 10 MG tablet TAKE TWO TABLETS BY MOUTH IN THE MORNING THORAZINEActive chlorproMAZINE (Thorazine) 25 MG tablet TAKE ONE TABLET BY MOUTH DAILY AT 4PM THORAZINEActive chlorproMAZINE (Thorazine) 50 MG tablet TAKE 3 TABLETS BY MOUTH AT BEDTIME THORAZINEActive clindamycin (Cleocin T) 1 % lotion APPLY TOPICALLY TO FACE AND BACK EVERY MORNING CLEOCIN T05Active cloNIDine (Catapres) 0.2 MG tablet TAKE ONE TABLET BY MOUTH 3 TIMES DAILY CATAPRESActive divalproex (Depakote) 250 MG EC tablet TAKE ONE TABLET BY MOUTH TWICE A DAY AT 8AM AND 8PM DEPAKOTE DRActive divalproex (Depakote) 500 MG EC tablet TAKE ONE TABLET BY MOUTH IN THE MORNING AND THREE TABLETS AT BEDTIME DEPAKOTE DR Active famotidine (Pepcid) 20 MG tablet TAKE ONE TABLET BY MOUTH AT NOON PEPCIDActive furosemide (Lasix) 20 MG tablet TAKE ONE TABLET BY MOUTH TWICE DAILY LASIX5Active gabapentin (Neurontin) 100 MG capsule TAKE ONE CAPSULE BY MOUTH 3 TIMES DAILY NEURONTINActive levothyroxine (Synthroid, Levoxyl) 150 MCG tablet TAKE ONE TABLET BY MOUTH DAILY SYNTHROIDActive lithium 300 MG capsule TAKE ONE CAPSULE BY MOUTH AT BEDTIME ESKALITHActive LORazepam (Ativan) 2 MG tablet TAKE ONE TABLET BY MOUTH AT BEDTIME NDVEUM915Active montelukast (Singulair) 10 MG tablet TAKE ONE TABLET BY MOUTH ONCE DAILY SINGULAIRActive risperiDONE (RisperDAL) 1 MG tablet TAKE ONE TABLET BY MOUTH 3 TIMES A DAY RISPERDALActive Senna-Time 8.6 MG tablet Take 2 tablets by mouth in the morning and 2 tablets before bedtime.03/12/2024 Active sulfacetamide suspension (Klaron) 10 % lotion topical APPLY TOPICALLY TO FACE AND BACK NEEDED TCJBJP215Active Viibryd 20 MG tablet TAKE 1 AND 1/2 TABLETS BY MOUTH IN THE MORNINGActive Active Problems No known active problems Family History RelationNameStatusCommentsMotherAlive Social History Tobacco UseTypesPacks/DayYears UsedDateSmoking Tobacco: NeverSmokeless Tobacco: Never Tobacco Cessation:Counseling Given: Yes Alcohol UseStandard Drinks/WeekCommentsNever0 (1 standard drink = 0.6 oz pure alcohol)Sex and Gender InformationValueDate RecordedSex Assigned at BirthNot on fileLegal UeiPaau9204/27/2022 7:21 PM EDTGender IdentityNot on fileSexual OrientationNot on file Last Filed Vital Signs Vital SignReadingTime TakenCommentsBlood Ducjesha248/7802 9:58 AM EST Clvqf967103/21/2024 9:58 AM ESTTemperature--Respiratory Rate--Oxygen Saturation-- Inhaled Oxygen Concentration--Nmpwuv20.5 kg (151 lb)03/21/2024 9:58 AM ESTHeight 152.4 cm (5')03/21/2024 9:58 AM ESTBody Mass Index29.49003/21/2024 9:58 AM EST Plan of Treatment Not on file Insurance Care Teams Team MemberRelationshipSpecialtyStart DateEnd Date Iftikhar Kemp MD [address] [place] [address] PCP - GeneralFamily Medicine10/12/23 Iftikhar Kemp MD [address] [place] [address] Family Medicine10/12/23
[2025-01-07 08:09] LABS: Carbamazepine(Tegretol),S 9.6 ug/mL (4.0-12.0)
== END 2025-01-06 06:40 | disposition home or self-care (01) ==
LOC: LAB 06:44
PROVIDERS: PCP Family Medicine; Visit Provider Family Medicine
DX: F31.9 Bipolar disorder, unspecified (principal); Z79.899 Other long term (current) drug therapy; F90.9 Attention-deficit hyperactivity disorder, unspecified type; F41.9 Anxiety disorder, unspecified; F42.9 Obsessive-compulsive disorder, unspecified
CPT/HCPCS: 36415; 80156

== ENCOUNTER 2025-01-31 06:54 | Outpatient (OUT) | payer MEDICARE, MEDICAID, SELFPAY ==
--- OUTSIDE RECORDS SUMMARY | 2024-04-18 06:00 | XMS_ITS ---
Author Organization [facility] Servic es Address [address] [place] [address] Care Team Providers Care Chest Painting And Sealing Supervisor Name Role Phone Dr. Marcial Middleton Primary Care Provider [phone] Chichi Moura [phone] REASON FOR VISIT PROPHY Encounters Encounter Location Date Provider Diagnosis [place] [address] [place] [address] 04/18/2024 Chichi Moura Plan Of Treatment Next Appt Details Provider Name:Dee Zimmerman, 04/03/2025 01:00:00 PM, [address], [place], [address], Provider Name:Aviva Jama, 08:00:00 AM, [address] [place], [address], Provider Name:Aviva Jama, 09:15:00 AM, [address] [place], [address], Provider Name:Aviva Jama, 08/2025 09:30:00 AM, [place], [address], Progress Notes * FAHAD BERNABEDOB:1990 (34 yo M)Acc No.[id number]:04/18/2024 Patient:?FAHAD BERNABE :?Chichi BoneDOB:1990???Age:33 Y???Sex:Male Date:04/18/2024Phone:[phone]:[address], [id number] Pcp:Dr. Marcial Middleton Subjective: * Chief Complaints: * P ROPHY * Electronic signature of Chichi Moura on 01/31/2025 at 07:01 AM ESTSign off status: Pending * Provider: Helen Bone Date: 0 04/18/2024 Generated for Printing/Faxing/eTransmitting on:?01/31/2025 07:01 AM EST
--- OUTSIDE RECORDS SUMMARY | 2024-05-22 03:30 | XMS_ITS ---
Author Organization [facility] Address [address] [address] Care Team Providers Care Supervisor Forming Department Name Role Phone Dr. Marcial Middleton Primary Care Provider [phone] Vera Georges [phone] REASON FOR VISIT 6 month f/u Encounters Encounter Location Date Provider Diagnosis [facility] [address] [place] [id number] 05/22/2024 Vera Leahy Plan Of Treatment Next Appt Details Provider Name:Dee Zimmerman, 04/03/2025 01:00:00 PM, [address], [place], [address], Provider Name:Aviva Jama, 08:00:00 AM, [address] [place], [address], Provider Name:Aviva Jama, 09:15:00 AM, [address], [place], [address], Provider Name:Aviva Jama, 08/2025 09:30:00 AM, [place], [address], Progress Notes * FAHAD BERNABEDOB:1990 (34 yo M)Acc No.[id number]:05/22/2024 Patient:?FAHAD BERNABE :?Vera LeahyDOB:1990???Age:33 Y???Sex:Male Date:05/22/2024Phone:[phone]:[address], [id number] Pcp:Dr. Marcial Middleton Subjective: * Chief Complaints: * 6 month f/u * Electronic signature of Veratyrese Leahy on 01/31/2025 at 07:01 AM ESTSign off status: Pending * Provider: Santiago Leahy Date: 0 05/22/2024 Generated for Printing/Faxing/eTransmitting on:?01/31/2025 07:01 AM EST
--- OUTSIDE RECORDS SUMMARY | 2024-06-06 03:30 | XMS_ITS ---
Author Organization [facility] Address [address] [place] [address] Care Team Providers Care Operations Leader Name Role Phone Dr. Marcial Middleton Primary Care Provider [phone] Dustin Diaz Unavailable [phone] REASON FOR VISIT FILLING Encounters Encounter Location Date Provider Diagnosis [place] [address] [place] [address] 06/06/2024 Dustin Eugene Plan Of Treatment Next Appt Details Provider Name:Dee Zimmerman, 04/03/2025 01:00:00 PM, [address], [place], [address], Provider Name:Aviva Jama, 08:00:00 AM, [address] [place], [address], Provider Name:Aviva Jama, 09:15:00 AM, [address], [place], [address], Provider Name:Aviva Jama, 08/2025 09:30:00 AM, [address], [place], [address], Progress Notes * FAHAD BERNABEDOB:1990 (34 yo M)Acc No.[id number]:06/06/2024 Patient:?FAHAD BERNABE :?DUSTIN EUGENE DDSDOB:1990???Age: 33 Y???Sex:MaleDate:06/06/2024Phone:[phone]:[address], [id number]:Dr. Marcial Middleton Subjective: * Chief Complaints: * F ILLING * Electronic signature of Dustin Eugene DDS on 01/31/2025 at 07:00 AM ESTSign off status: Pending * Provider: Clay EUGENE DDS Date: 0 06/06/2024 Generated for Printing/Faxing/eTransmitting on:?01/31/2025 07:00 AM EST
--- OUTSIDE RECORDS SUMMARY | 2024-06-07 08:30 | XMS_ITS ---
Author Organization [facility] Address [address] [address] Care Team Providers Care Email Marketing Specialist Name Role Phone Dr. Marcial Middleton Primary Care Provider Dustin Diaz Unavailable REASON FOR VISIT FILLING Encounters Encounter Location Date Provider Diagnosis [place] [address] [address] 06/07/2024 Dustin Eugene Plan Of Treatment Next Appt Details Provider Name:Dee Zimmerman, 04/03/2025 01:00:00 PM, [address], [place], [address], Provider Name:Aviva Jama, 08:00:00 AM, [address] [place], [address], Provider Name:Aviva Jama, 09:15:00 AM, [address], [place], [address], Provider Name:Aviva Jama, 08/2025 09:30:00 AM, [address], [place], [address], Progress Notes * FAHAD BERNABEDOB:1990 (34 yo M)Acc No.[id number]:06/07/2024 Patient:?FAHAD BERNABE :?DUSTIN EUGENE DDSDOB:1990???Age: 33 Y???Sex:MaleDate:06/07/2024Phone:[phone]:[address], [place]-[id number]:Dr. Marcial Middleton Subjective: * Chief Complaints: * F ILLING * Electronic signature of Dustin Eugene DDS on 01/31/2025 at 07:00 AM ESTSign off status: Pending * Provider: Clay EUGENE DDS Date: 0 06/07/2024 Generated for Printing/Faxing/eTransmitting on:?01/31/2025 07:00 AM EST
--- OUTSIDE RECORDS SUMMARY | 2024-11-08 04:30 | XMS_ITS ---
Author Organization [facility] Address [address] [address] Care Team Providers Care Hand Screen Printer Name Role Phone Dr. Marcial Middleton Primary Care Provider Dustin Diaz Unavailable REASON FOR VISIT FILLING Encounters Encounter Location Date Provider Diagnosis [place] [address] [address] 11/08/2024 Dustin Eugene Plan Of Treatment Next Appt Details Provider Name:Dee Zimmerman, 04/03/2025 01:00:00 PM, [address] [place], [address], Provider Name:Aviva Jama, 08:00:00 AM, [address] [place], [address], Provider Name:Aviva Jama, 09:15:00 AM, [address] [place], [address], Provider Name:Aviva Jama, 08/2025 09:30:00 AM, [address] [place], [address], Progress Notes * FAHAD BERNABEDOB:1990 (34 yo M)Acc No.[id number]:11/08/2024 Patient:?FAHAD BERNABE :?DUSTIN EUGENE DDSDOB:1990???Age: 34 Y???Sex:MaleDate:11/08/2024Phone:[phone]:[address], [id number]:Dr. Marcial Middleton Subjective: * Chief Complaints: * F ILLING Billing Information: * Procedure Codes: * Electronic signature of Dustin Eugene DDS on 01/31/2025 at 07:01 AM ESTSign off status: Pending * Provider: Clay EUGENE DDS Date: 0 11/08/2024 Generated for Printing/Faxing/eTransmitting on:?01/31/2025 07:01 AM EST
--- OUTSIDE RECORDS SUMMARY | 2025-01-14 06:30 | XMS_ITS ---
Author Organization [facility] Address [address] [address] Care Team Providers Care Monorail Crane Operator Name Role Phone Dr. Marcial Middleton Primary Care Provider Aviva Jama [phone] REASON FOR VISIT SENT TEXT TO R/S Encounters Encounter Location Date Provider Diagnosis [facility] [address] [place] [address] 01/14/2025 Aviva Jama Plan Of Treatment Next Appt Details Provider Name:Dee Zimmerman, 04/03/2025 01:00:00 PM, [address], [place], [address], Provider Name:Aviva Jama, 08:00:00 AM, [address], [address], Provider Name:Aviva Jama, 09:15:00 AM, [place], [address], Provider Name:Aviva Jama, 08/2025 09:30:00 AM, [place], [address], Progress Notes * FAHAD BERNABEDOB:1990 (34 yo M)Acc No.[id number]:01/14/2025 Patient:?FAHAD BERNABE :?Aviva JamaDOB:1990???Age:34 Y???Sex:MaleDate: 01/14/2025Phone:[phone]:Tarun Kirk [place], [place]-[address]Laz: Dr. Marcial Middleton Subjective: * Chief Complaints: * S ENT TEXT TO R/S * Electronic signature of Aviva Jama , [id number] on 01/31/2025 at 07:00 AM ESTSign off status: Pending * Provider: Yelena Jama Date: 03/17/2024 Generated for Printing/Faxing/eTransmitting on:?01/31/2025 07:00 AM EST
--- OUTSIDE RECORDS SUMMARY | 2025-01-31 07:00 | XMS_ITS | Clinical Summary ---
Author Organization [facility] Address [address] [facility] [place] [address] Care Team Providers Care Emergency Medical Service Manager Name Role Phone Unavailable Primary Care Provider Unavailabl e Source Comments The following information is NOT included in Care Everywhere downloads:Psychiatric notes, ECG results, Cardiac Rehab notes, Pulmonary Function notes, data from SmartForms (includes but not limited toPregnancy data,audiograms, eye exams, pre-surgical evaluation notes, well-child exam data).[facility] Immunizations ImmunizationAdministration DatesNext DueInfluenza, injectable, quadrivalent, preservative (MRN=134)12/07/2016Influenza, injectable, quadrivalent, preservative free (QZY=563)11/20/2019,11/22/2017,12/04/2014,12/19/2013Influenza, injectable, trivalent, preservative (VMM=187)11/18/2015,12/12/2012,12/07/2011 Influenza, novel P9N1-62, injectable, preservative-free (WHP=325)12/31/2008 Influenza, whole virus (CVX=16)10/27/2010Td (adult), unspecified formulation (DKV=115)07/12/2005 Social History Tobacco UseTypesPacks/DayYears UsedDateSmoking Tobacco: Never AssessedSex and Gender InformationValueDate RecordedSex Assigned at BirthNot on fileLegal Sex Male10/24/2019 10:08 AM EDTGender IdentityNot on fileSexual OrientationNot on file Plan of Treatment Health MaintenanceDue DateLast DoneCommentsHIV Test08/22/2007Hepatitis C Wqwludsc24/09/2011Tdap Daaksmw8108/21/2010Hepatitis A (HAV) Vaccine (optional start 19+ years)08/22/2011Hepatitis B (HBV) Vaccine (1 of 3 - 19+ 3-dose series) 08/22/2011HPV Vaccine (optional start 27-45 years)08/22/2019Welcome to Medicare Visit (G0402)5COVID-19 Vaccine (3 - 2024-26 season)2024 03/17/2020, 02/25/2020Influenza Vaccine (#1)/08/2019, 11/22/2017, 12/07/2016, Additional history existsShingles (RZV) Vaccine (1 of 2)2042 Pneumococcal Vaccine(s)Aged OutNo longer eligible based on patient's age to complete this topic Insurance [address] [place] [address]
--- OUTSIDE RECORDS SUMMARY | 2025-01-31 07:00 | XMS_ITS | Clinical Summary ---
Author Organization [facility] Address [address] [place] [address] Care Team Providers Care Industrial Maintenance Repairer Helper Name Role Phone Iftikhar Kemp DO Primary Care Provider [phone] Allergies No known active allergies Medications * [...] SignReadingTime TakenCommentsBlood Pressure--Pulse--Temperature-- Respiratory Rate--Oxygen Saturation--Inhaled Oxygen Concentration--Mjvimq95.9 kg (143 lb)04/07/2006 12:52 PM CPXFwfswq259 cm (4' 11.06 )04/07/2006 12:52 PM EST Body Mass Index28.8204/07/2006 12:52 PM EST Plan of Treatment Health MaintenanceDue DateLast DoneCommentsAnxiety Jrnmxczpg93/09/2011Depression Chdrmrqps78/09/2011HIV Dbqceilgh56/09/2011Hepatitis C Hdqdgnfgs86/09/2011 DTaP,Tdap,Td Vaccine (1 - Tdap)08/22/2011Hepatitis B Vaccine (1 of 3 - 19+ 3- dose series)08/22/2011HPV Vaccine (1 - 3-dose SCDM series)08/22/2019Covid-19 Vaccine (1 - 2024- season)2024Influenza Vaccine (#1)2024 Insurance Care Teams Team MemberRelationshipSpecialtyStart DateEnd Date Iftikhar Kemp DO PCP - GeneralFamily Medicine09/23/13
--- OUTSIDE RECORDS SUMMARY | 2025-01-31 07:00 | XMS_ITS | Clinical Summary ---
Author Organization [facility] Address [address] [facility] [place] [address] Care Team Providers Care Men'S Golf Coach Name Role Phone Iftikhar Kemp Primary Care Provider [phone] Allergies Active AllergyReactionsCriticalityNoted QsnnDjkirvywAndlxaidDuqzhBiz82/24/2018 Medications MedicationSigDispense QuantityRefillsLast FilledStart DateEnd DateStatus B [...] 3 days, then discontinue 30 tablet 01/08/2018Active whlyjitnprmkmcz-qcdnocbwuxowfca-dtuwconrpanumqgi 30-2-10 MG/5ML Syrup Take 5 mL by mouth every 4 hours as needed for Cold Symptoms. 60 mL 5Active Active Problems ProblemNoted DateDiagnosed ObelFoiukrq38/25/2018 Assessment & Plan (01/07/2018 12:47 PM EST): Resume home medications Follow up after discharged with PCP Avmioqgtfsqydl59/25/2018 Assessment & Plan (01/07/2018 12:47 PM EST): Resume home medications Follow up after discharged with PCP Down sxqqsgym13/25/2018 Assessment & Plan (01/07/2018 12:48 PM EST): Resume home therapies Follow up after discharged with PCP Ppfafiiylauo36/25/2018 Assessment & Plan (01/07/2018 12:48 PM EST): Improving White count= 13.7 on admission, = 12.5 today Empiric antibiotics ordered Blood and sputum cultures ordered and pending Monitor VS and CBC as ordered Mbqihhlna66/24/2018 Assessment & Plan (01/07/2018 12:46 PM EST): Systemic steroids, empiric antibiotics and nebulizer's ordered Will check CRP, sed rate, legionella, strep and sputum cultures Blood cultures pending CT chest ordered Repeat Chest XR in AM Obesity: body mass index of 40.0-49.911 Assessment & Plan (01/07/2018 12:49 PM EST): Diet and lifestyle modifications strongly encouraged Follow up after discharged with PCP for further treatment options Social History Tobacco UseTypesPacks/DayYears UsedDateSmoking Tobacco: NeverSmokeless Tobacco: NeverAlcohol UseStandard Drinks/WeekCommentsNo0 (1 standard drink = 0.6 oz pure alcohol)Sex and Gender InformationValueDate RecordedSex Assigned at BirthNot on fileLegal KdhFnwg1002/19/2016 4:59 PM ESTGender WpbmqqzvPleq88/24/2018 10:47 AM ESTSexual OrientationNot on file Last Filed Vital Signs Vital SignReadingTime TakenCommentsBlood Iuqedyft050/6804/ 3:00 PM EDT Ragmj6478 3:00 PM ZTFEkhrufasvya89 ??C (98.6 ??F)05/27/2023 2:16 PM EDT Respiratory Nied308605/27/2023 2:49 PM EDTOxygen Qyucbvsclv24%05/27/2023 3:00 PM EDTInhaled Oxygen Concentration--Zyzuks52.2 kg (212 lb 1.3 oz)01/08/2018 3:51 AM SHRQggubs778.8 cm (4' 9 )05/27/2023 2:17 PM EDTBody Mass Index45.8901/06/2018 4:24 PM EST Plan of Treatment Health MaintenanceDue DateLast DoneCommentsHEPATITIS C VIRUS GJAJIYTJK30/09/1993 HIV SCREENING HVRWLVVWTY88/09/2008HEP B VACCINE (1 of 3 - 19+ 3-dose series) 08/22/20112390ZAEZHTT12/30/41741707/12/2005TSH103/08/HPV VACCINE (1 - 3- dose SCDM series)08/22/2019COVID-19 VACCINE (2024- season)2024 INFLUENZA VACCINE (#1)/08/2019, 11/22/2017, 12/07/2016, Additional history existsTDAP (ADULT)Ojwcsgmzr04/30/2006PNEUMOCOCCAL VACCINE SERIESAged Out No longer eligible based on patient's age to complete this topic Procedures Procedure NamePriorityDate/TimeAssociated BjpqozjvkWmnlaphyTIMGNST12/24/2018 1:20 PM EST from Last 3 Months or Most Recently Relevant to Health Maintenance Results * TSH (01/06/2018 1:20 PM EST)ComponentValueRef RangeTest MethodAnalysis Time Performed AtPathologist SignatureTSH0.9940.46 - 4.68 uIU/ML[address]Comment:Testing performed at [place], [place] [address]Cszhfasr (Source)Anatomical Location / LateralityCollection Method / VolumeCollection TimeReceived Time01/06/2018 1:20 PM EST01/06/2018 3:00 PM EST Narrative Authorizing ProviderResult TypeResult StatusNaida VAZQUEZ-CENDOCRINOLOGY Final ResultPerforming OrganizationAddressCity/State/ZIP CodePhone Number [address] [place] [address] from Last 3 Months or Most Recently Relevant to Health Maintenance Insurance * Guarantor: Willian Bernabecologa TypeRelation to PatientDate of BirthPhone Billing AddressPersonal/DazlcuIhxw62/[birth year][address] [address] Advance Directives For more information, please contact: [phone] (7:30 AM - 6PM [facility], Monday-Monday) * Full Code (Latest Code Status on File) Date ActivatedDate KlxfzghmzngYilbnllz14/24/2018 4:10 PM Care Teams Team MemberRelationshipSpecialtyStart DateEnd Date Iftikhar Kemp DO PCP - GeneralFamily Medicine05/27/23
--- OUTSIDE RECORDS SUMMARY | 2025-01-31 07:01 | XMS_ITS | Patient Health Record ---
Author Organization [facility] Address [address] [place] [address] Care Team Providers Care Bungy Jump Master Name Role Phone Dr. Marcial Middleton Primary Care Provider [phone] Loco Gonzalez, Samra Unavailable Vera Leahy Unavailable [phone] Chichi Moura Unavailable [phone] Kim Ba Unavailable [phone] Aviva Jama Unavailable [phone] Reason For Referral No Information Encounters Encounter Location Date Provider Diagnosis [facility] [address] [place] [address] 02/22/2024 [facility]h [facility] [facility] [place] [address]/26/2025[facility] [place] [address]Jolore Middleton [facility] [place] [address]Fioreldami Ochoaas CastilloDental caries on pit and fissure surface penetrating into dentin K02.52 [facility] [place] [address]/17/2025 Samra Loco CastilloDental caries on pit and fissure surface penetrating into dentin K02.52[facility] [place] [address] 08/08/2024Jasmina SaricDental caries on pit and fissure surface penetrating into dentin K02.52[facility] [address] 01/21/2025Esther YiEncounter for dental examination and cleaning with abnormal findings Z01.21 ; Other dental procedure status Z98.818 ; Dental caries on pit and fissure surface penetrating into dentin K02.52 and Necrosis of pulp K04.1 Assessments Encounter Date Diagnosis (ICD Code) Assessment Notes Treatment Notes Treatment Clinical Notes Section Notes 02/21/2024 Dental caries on pit and fissure surface penetrating into dentin (ICD-10 - K02.52) 07/30/2024Dental caries on pit and fissure surface penetrating into dentin (ICD- 10 - K02.52)08/08/2024Dental caries on pit and fissure surface penetrating into dentin (ICD-10 - K02.52)01/21/2025Encounter for dental examination and cleaning with abnormal findings (ICD-10 - Z01.21)01/21/2025Other dental procedure status (ICD-10 - Z98.818)01/21/2025Dental caries on pit and fissure surface penetrating into dentin (ICD-10 - K02.52)01/21/2025Necrosis of pulp (ICD-10 - K04.1) Plan Of Treatment Next Appt Details Provider Name:Dee Bautistapaul, 04/03/2025 01:00:00 PM, [address], [place], [address], Provider Name:Aviva Evita, 08:00:00 AM, [address], [place], [address], Provider Name:Aviva Jama, 09:15:00 AM, [address], [place], [address], Provider Name:Aviva Jama, 08/2025 09:30:00 AM, [address], [place], [address], Insurance Providers Payer Name Payer Address Payer Phone Subscriber Number Group Number Insured Name Patient Relationship to Insured Coverage Start Date Coverage End Date [place] [address] [place] [address] [id number] Griffin BERNABE - patient is the [id number] 2023
--- OUTSIDE RECORDS SUMMARY | 2025-01-31 07:01 | XMS_ITS | Clinical Summary ---
Author Organization [facility] Address [facility] [place] [address] Care Team Providers Care Dancing Master Name Role Phone Joe Kempel Fam MALLOY Primary Care Provider Allergies Active AllergyReactionsCriticalityNoted BwdcLdocfrxyPipbgbamQkrxzXkx41/24/2018 Medications MedicationSigDispense QuantityRefillsLast FilledStart DateEnd DateStatus b [...] needed .01/08/2018Active Active Problems ProblemNoted DateDiagnosed DateEsophageal jyzmusinh86/14/2022 Overview (05/27/2021): Added automatically from request for surgery [id number] Food bolus obstruction of prweloesh53/14/2022 Overview (05/27/2021): Added automatically from request for surgery [id number] Pneumonia due to COVID-19 virus05/03/2021cute metabolic encephalopathy [...] setting of her clinical neuropsychiatric event. Respiratory flankml4902/23/2019 Family History Medical HistoryRelationCommentsHeart diseaseNeg Hx Social History Tobacco UseTypesPacks/DayYears UsedDateSmoking Tobacco: NeverSmokeless Tobacco: NeverAlcohol UseStandard Drinks/WeekCommentsNever0 (1 standard drink = 0.6 oz pure alcohol)AUDIT-CAnswerDate RecordedFrequency of Alcohol ConsumptionNever 02/23/2019Average Number of DrinksNot on file02/23/2019Frequency of Binge DrinkingNot on file02/23/2019Sex and Gender InformationValueDate RecordedSex Assigned at BirthNot on fileLegal NuvCxcy9806/08/2013 3:27 PM EDTGender Identity Male02/23/2019 3:13 PM ESTSexual OrientationChoose not to aniyxwge71/11/2020 3:13 PM EST Last Filed Vital Signs Vital SignReadingTime TakenCommentsBlood Rqploocy692/3904 9:11 AM EDT Tjahm3260 9:11 AM VPMPbxxfxkoyyo35.7 ??C (98 ??F)06/03/2021 7:23 AM EDT Respiratory Wxri3371 9:11 AM EDTOxygen Kvyrsrujqe78%06/03/2021 9:11 AM EDTInhaled Oxygen Concentration--Gdpteu64.3 kg (155 lb)06/03/2021 7:23 AM EDT Xfhcsm728.4 cm (5')06/03/2021 7:23 AM EDTBody Mass Index30.2704 7:23 AM EDT Plan of Treatment Health MaintenanceDue DateLast DoneCommentsWellness Visit08/22/1995Depression Screening/Follow-Up (PHQ-2/9)2004Varicella Vaccines (1 of 2 - 13+ 2-dose series)2005HIV Hgskkbojs13/09/2008Hepatitis C Lxulznwrk35/09/2011HPV Vaccines (1 - 3-dose SCDM series)08/22/2019COVID-19 Vaccine (3 - 2024- season) 502/03/2020, 02/25/2020Influenza Vaccine (#1)/, 11/20/2019, 12/07/2018, Additional history existsTetanus/Diphtheria/Pertussis (8 - Td or Tdap), 09/30/2008, 07/12/2005, Additional history existsZoster Vaccines (1 of 2)2042RSV Vaccines (1 - 1-dose 75+ series) 08/22/2067HIB BmyztgumUwzlhfqli70/15/1996, 05/25/1993, 03/16/1993, Additional history existsHepatitis B MgqkclipDrajtvatg32/15/1996, 03/16/1993, 01/05/1993IPV NscnarogExouvdzml73/30/1999, 05/25/1993, 03/16/1993, Additional history exists Pneumococcal VaccineAged Out11/27/2018No longer eligible based on patient's age to complete this topicHepatitis A VaccinesAged OutNo longer eligible based on patient's age to complete this topicMeningococcal ACWY VaccineAged OutNo longer eligible based on patient's age to complete this topicMeningococcal B Vaccine Aged OutNo longer eligible based on patient's age to complete this topic Rotavirus VaccinesAged OutNo longer eligible based on patient's age to complete this topic Insurance * Guarantor: Willian Arnoldcoolga TypeRelation to PatientDate of BirthPhone Billing AddressPersonal/HumnqxOaxb84/09/[address] [address] Advance Directives For more information, please contact: [phone] TypeDate RecordedPatient RepresentativeExplanationGuardianship Papers07/08/2020 * Full Code (Latest Code Status on File) Date ActivatedDate InactivatedComments05/03/2021 12:29 AM05/06/2021 7:05 PM * Full Code - Unverified Date ActivatedDate InactivatedComments02/23/2019 9:21 PM05/02/2021 12:30 PM Care Teams Team MemberRelationshipSpecialtyStart DateEnd Date Iftikhar Kemp [place] [address] PCP - GeneralEndocrinology/Metabolism02/23/19
--- OUTSIDE RECORDS SUMMARY | 2025-01-31 07:01 | XMS_ITS | Clinical Summary ---
Author Organization [facility] Address [address] [place] [address] Care Team Providers Care Plastics Technician Name Role Phone Unavailable Primary Care Provider Unavailabl e Social History Tobacco UseTypesPacks/DayYears UsedDateSmoking Tobacco: Never AssessedUT Safety & EnvironmentAnswerDate RecordedFear of Current or Ex-PartnerNot on file 04/06/2023Emotionally AbusedNot on file04/06/2023hysically AbusedNot on file 04/06/2023Sexually AbusedNot on file4Physically or Sexually AbusedNot on file04/06/2023Sex and Gender InformationValueDate RecordedSex Assigned at BirthNot on fileLegal XvhEkiw7208/11/2021 9:38 PM EDTGender IdentityNot on file Sexual OrientationNot on file Plan of Treatment Health MaintenanceDue DateLast DoneCommentsMedicare Annual Wellness (AWV) 1992Depression Hvuzobaea71/09/2005Varicella Vaccines (1 of 2 - 13+ 2-dose series)2005dult Zybnusv6808/21/2014HPV Vaccines (1 - 3-dose SCDM series) 08/22/2019Influenza [...]
--- OUTSIDE RECORDS SUMMARY | 2025-01-31 07:01 | XMS_ITS | Clinical Summary ---
Author Organization [facility] Address [address] [place] [address] Care Team Providers Care Comparative Sociology Professor Name Role Phone Iftikhar Kemp MD Primary Care Provider [phone] Iftikhar Kemp MD Unavailable [phone] Allergies No known active allergies Medications MedicationSigDispense QuantityRefillsLast FilledStart DateEnd DateStatus b complex vitamins capsule Take 1 capsule by mouth DailyActive carBAMazepine (TEGretol) 200 MG tablet TAKE 2 TABLETS BY MOUTH TWICE DAILY NATJAJLP20/28/2025Active chlorproMAZINE (Thorazine) 10 MG tablet TAKE TWO [...] TAKE ONE TABLET BY MOUTH AT BEDTIME MPHCHA435Active montelukast (Singulair) 10 MG tablet TAKE ONE TABLET BY MOUTH ONCE DAILY SINGULAIRActive risperiDONE (RisperDAL) 1 MG tablet TAKE ONE TABLET BY MOUTH 3 TIMES A DAY RISPERDALActive Senna-Time 8.6 MG tablet Take 2 tablets by mouth in the morning and 2 tablets before bedtime.03/12/2024 Active sulfacetamide suspension (Klaron) 10 % lotion topical APPLY TOPICALLY TO FACE AND BACK NEEDED EJFPPC235Active Viibryd 20 MG tablet TAKE 1 AND 1/2 TABLETS BY MOUTH IN THE MORNINGActive Active Problems No known active problems Family History RelationNameStatusCommentsMotherAlive Social History Tobacco UseTypesPacks/DayYears UsedDateSmoking Tobacco: NeverSmokeless Tobacco: Never Tobacco Cessation:Counseling Given: Yes Alcohol UseStandard Drinks/WeekCommentsNever0 (1 standard drink = 0.6 oz pure alcohol)Sex and Gender InformationValueDate RecordedSex Assigned at BirthNot on fileLegal IjbSzgp8204/27/2022 7:21 PM EDTGender IdentityNot on fileSexual OrientationNot on file Last Filed Vital Signs Vital SignReadingTime TakenCommentsBlood Mtxyiljm101/7802 9:58 AM EST Gmval318103/21/2024 9:58 AM ESTTemperature--Respiratory Rate--Oxygen Saturation-- Inhaled Oxygen Concentration--Ewujxk96.5 kg (151 lb)03/21/2024 9:58 AM ESTHeight 152.4 cm (5')03/21/2024 9:58 AM ESTBody Mass Index29.49003/21/2024 9:58 AM EST Plan of Treatment Not on file Insurance Care Teams Team MemberRelationshipSpecialtyStart DateEnd Date Iftikhar Kemp MD [address] [place] [address] PCP - GeneralFamily Medicine10/12/23 Iftikhar Kemp MD [address] [place] [address] Family Medicine10/12/23
[2025-02-01 08:12] LABS: Carbamazepine(Tegretol),S 8.9 ug/mL (4.0-12.0)
== END 2025-01-31 06:55 | disposition home or self-care (01) ==
LOC: LAB 06:57
PROVIDERS: PCP Family Medicine; Visit Provider Family Medicine
DX: Z79.899 Other long term (current) drug therapy (principal); F31.9 Bipolar disorder, unspecified; G40.909 Epilepsy, unspecified, not intractable, without status epilepticus
CPT/HCPCS: 36415; 80156